=== PATIENT | female | born 1965 | race Caucasian/White ===

== ENCOUNTER → 2020-09-10 11:22 | Outpatient (CLI) | payer BC, SELFPAY ==
[2020-09-10 14:21] LABS: Coronavirus 19 IgG Antibody Positive (Negative); Coronavirus 19 IgM Antibody Negative (Negative)
== END ==
PROVIDERS: Visit Provider Internal Medicine Gastroenterology
DX: Z01.818 Encounter for other preprocedural examination (principal); Z12.11 Encounter for screening for malignant neoplasm of colon; Z86.010 Personal history of colon polyps
CPT/HCPCS: 36415; 86328

== ENCOUNTER 2020-09-11 07:18 | Day surgery (SDC) | payer BC, SELFPAY ==
[2020-09-08 13:19] VITALS: BMI 29.5
[2020-09-11] VITALS (7 sets, daily range): BP systolic 102–121; BP diastolic 59–81; PULSE 68–87; RESP 18; TEMP 36.2; O2SAT 97–100
[2020-09-11 07:52] LABS: POC Glucose,Bedside 152 (70-110)
--- NOTE | 2020-09-11 08:35 | P.PN_ITS ---
[facility] Anesthesia Checklist - Patient Identification Patient Identification: Arm Band, Verbal (Name & ) - Structural Data Admitted From: Home Planned Operative Procedure/s: Colonoscopy Consent for Planned Operative Procedure(s) Verified: Yes Verified Documents: Surgical Consent, History and Physical - NPO Status Verified Time NPO: 00:00 - Chart Verification Results Verified: None - Additional verifications Fingerstick Blood Glucose: 152 Anesthesia Reactions: No - Airway Assessment C-Spine Mobility Assessed: Yes TMJ Mobility Assessed: Yes Dentition: Poor Dentition - Neurological Assessment Level of Consciousness: Awake, Alert, Appropriate, Follows Commands Hx Seizures: No Numbness or tingling in extremities: No - Anesthesia Plan Anesthesia Risk discussed: Yes Anesthesia Plan: Verified ASA Class: III Anesthesia Type: MAC [facility] History I have reviewed the patient's past medical history: Yes Medical History: Reports:: Diabetes Mellitus Type 2, Hyperlipidemia, Hypertension Denies:: Cancer, Diabetes Mellitus Type 1, Internal Pacemaker, MRSA, Seizures *Have you ever received a pneumonia vaccine?: Yes *Have you received a flu vaccine this season?: Yes Comment:: chronic pain Anesthesia experience/problems:: None Laterality Cases: Right: Arthroscopy Knee, Arthroscopy Shoulder, Bilateral: Tonsillectomy Other Surgeries: No: Pacemaker Amputation: No Fractures: No - *Social History Last grade of school completed: Some college Smoking Status: Never smoker Alcohol Intake: never Substance Use Type: denies use *Occupational Status:: employed Housing: house Household Members: none *Travel in the last 8 weeks: None Family Hx:: Cancer
--- NOTE | 2020-09-11 08:53 | P.PCN_ITS ---
[facility] Procedure Note Procedure Note:: Colonoscopy Procedure Report: Colonoscopy Endoscopist: Salvador Boland II, MD Referring physician: Mark Murphy MD Date of Procedure: September 11, 2020 Equipment: Olympus 180 variable stiffness pediatric colonoscope Sedation: MAC sedation Indication: Mrs. Shepherd is a 54-year-old female who is here for follow-up screening/surveillance colonoscopy secondary to a personal history of colon polyps. She did have a colonoscopy in August 2015 and had 2 adenomatous colon polyps removed. The patient does state that she has 2 maternal uncles with colon cancer and her father had colon polyps. She reports no abdominal pain, weight loss, change in her bowel habits or rectal bleeding. Procedure: Prior to the procedure, a history and physical exam was performed, and patient's medications and allergies were reviewed. The risks, benefits and alternatives of the sedation and procedure were discussed with the patient. All questions were answered and informed consent was obtained. The patient was brought to the procedure room. Patient identification and proposed procedure were verified by the physician and the nurse. The patient was placed in a left lateral decubitus position and the scope was passed under direct vision. Throughout the procedure, the patient's blood pressure, pulse, and oxygen saturations were monitored continuously. The colonoscopy was accomplished without difficulty. The patient tolerated the procedure well. Findings: On digital rectal examination there was normal rectal tone. There were no external hemorrhoids. The colonoscope was introduced through the anal canal to the rectum and advanced to the cecum. The ileocecal valve and appendiceal orifice were identified. The scope was advanced a short distance into the ileum which appeared grossly normal. The scope was then withdrawn into the colon. The cecum, ascending and transverse colon and mucosa were grossly normal. There were mildly scattered diverticuli throughout the descending and sigmoid colon (LEFT colon). The rectum itself was normal. Upon retroflexion within the rectum there were grade 1 internal hemorrhoids. The preparation was excellent throughout with Holliday Preparation Score of 9. The cecal time was 10 minutes. Impression: 1. Mild left-sided diverticulosis 2. Grade 1 internal hemorrhoids Plan: Based upon former adenomatous polyps and 2 second-degree relatives with colon cancer, would recommend 7 to 10 years surveillance by ACS guidelines. I would encourage fiber supplementation on a long-term daily maintenance basis.
== END 2020-09-11 09:55 | disposition home or self-care (01) ==
LOC: OUTP 07:20
PROVIDERS: PCP Pediatrics; Visit Provider Internal Medicine Gastroenterology
PROC: 0DJD8ZZ Inspection of Lower Intestinal Tract, Via Natural or Artificial Opening Endoscopic (ICD-10-PCS; CPT 45378; principal; 2020-09-11 08:30)
DX: Z12.11 Encounter for screening for malignant neoplasm of colon (principal); K57.30 Diverticulosis of large intestine without perforation or abscess without bleeding; K64.0 First degree hemorrhoids; Z86.010 Personal history of colon polyps; Z83.71 Family history of colonic polyps; E11.9 Type 2 diabetes mellitus without complications; E78.5 Hyperlipidemia, unspecified; I10 Essential (primary) hypertension; Z82.3 Family history of stroke
CPT/HCPCS: 45378; 82962

== ENCOUNTER → 2022-02-25 08:36 | Outpatient (CLI) | payer BC, SELFPAY ==
[2022-02-25 18:21] LABS: Basophils % 0.3 % (0.1-2.0); Eosinophils % 0.3 % (0.1-12.0); Hemoglobin 13.1 g/dL (12.2-16.2); Lymphocytes # 0.7 K/mm3 (0.7-4.5); Lymphocytes % 10.4 % (10-50); Mean Corpuscular HGB Conc 32.8 g/dL (31.8-35.4); Mean Corpuscular Hemoglobin 31.5 pg (27.0-31.2); Mean Corpuscular Volume 95.9 fl (81-99); Mean Platelet Volume 9.3 fl (7.4-10.4); Monocytes # 0.2 K/mm3 (0.1-1.0); Monocytes % 2.8 % (1.7-9.3); Neutrophils # 5.9 K/mm3 (1.8-7.8); Neutrophils % 86.2 % (37.0-80.0); Platelet Count 217 K/mm3 (142-424); Red Blood Count 4.17 M/mm3 (4.20-5.40); Red Cell Distribution Width 13.8 % (11.5-17.5); White Blood Count 6.8 K/mm3 (4.8-10.8)
[2022-02-25 18:23] LABS: MANUAL DIFFERENTIAL MANUAL DIFFERENTIAL (MANUAL DIFF)
[2022-02-25 18:30] LABS: Alanine Aminotransferase 81 U/L (12-78); Albumin Level 4.7 g/dl (3.5-5.0); Albumin/Globulin Ratio 2.4 (1.1-1.8); Alkaline Phosphatase 76 U/L (38-126); Anion Gap 15.4 mEq/L (5-15); Aspartate Amino Transferase 67 U/L (14-36); Bilirubin,Total 0.4 mg/dl (0.2-1.3); Blood Urea Nitrogen 28 mg/dl (7-17); Calcium 9.9 mg/dl (8.4-10.2); Carbon Dioxide 24 mmol/L (22.0-30.0); Chloride 103 mmol/L (98-107); Chol/HDL Ratio 4.5 (1-3.5); Cholesterol 192 mg/dl (140-200); Estimated Glomerular Filt Rate 51 ml/min (>60); GFR (African American) 62 ML/MIN (>60); Glucose 266 mg/dl (74-100); HDL Cholesterol 43 mg/dl (40-60); Potassium 5.4 mmoL/L (3.5-5.1); Sodium 137 mmol/L (136-145); Total Protein,Serum 6.7 g/dl (6.3-8.2); Triglycerides 288 mg/dl (30-150); VLDL Cholesterol 58 mg/dL (0-40)
[2022-02-25 18:32] LABS: Microalbumin < 6.000 mg/L (0-16.7)
[2022-02-25 18:41] LABS: Direct LDL Cholesterol 89.67 mg/dL (100-129)
[2022-02-25 18:47] LABS: T4 (Thyroxine) 9.6 ug/dl (5.53-11.0)
[2022-02-25 18:57] LABS: Lymphocytes % 7 % (10-50); Neutrophils % 89 % (42-76); Platelet Estimate Normal; RBC Morphology Normal; Total Cells Counted 100; Toxic Granulation 1+
[2022-02-25 19:01] LABS: Thyroid Stimulating Hormone 1.59 uIU/mL (0.465-4.68)
[2022-02-28 12:09] LABS: C-Peptide 7.1 ng/mL (1.1-4.4)
== END ==
PROVIDERS: Visit Provider Nurse Practitioner Family
DX: E11.9 Type 2 diabetes mellitus without complications (principal); Z79.4 Long term (current) use of insulin
CPT/HCPCS: 80053; 80061; 82043; 84436; 84443; 84681; 85007; 85025

== ENCOUNTER → 2022-03-01 15:23 | Outpatient (CLI) | payer BC, SELFPAY ==
[2022-03-01 16:39] LABS: Anion Gap 11.3 mEq/L (5-15); Blood Urea Nitrogen 31 mg/dl (7-17); Calcium 9.9 mg/dl (8.4-10.2); Carbon Dioxide 29 mmol/L (22.0-30.0); Chloride 102 mmol/L (98-107); Estimated Glomerular Filt Rate 86 ml/min (>60); GFR (African American) 104 ML/MIN (>60); Glucose 130 mg/dl (74-100); Potassium 4.3 mmoL/L (3.5-5.1); Sodium 138 mmol/L (136-145)
== END ==
PROVIDERS: PCP Nurse Practitioner Family; Visit Provider Nurse Practitioner Family
DX: E11.9 Type 2 diabetes mellitus without complications (principal); Z79.4 Long term (current) use of insulin
CPT/HCPCS: 36415; 80048

== ENCOUNTER → 2022-03-14 12:17 | Outpatient (CLI) | payer BC, SELFPAY | PROVIDERS: Visit Provider Nurse Practitioner Family | DX: E11.9 Type 2 diabetes mellitus without complications (principal); Z79.4 Long term (current) use of insulin ==

== ENCOUNTER → 2022-04-19 07:06 | Outpatient (CLI) | payer BC, SELFPAY ==
[2022-04-18 17:35] LABS: Amphetamine/Metha Screen,Urine Negative ng/ml (<1000); Barbiturates Screen,Urine Negative ng/ml (<200)
[2022-04-18 17:36] LABS: Benzodiazepines Screen,Urine Negative ng/ml (<200)
[2022-04-18 17:37] LABS: Cannabinoid Screen,Urine Negative ng/ml (<50); Cocaine Screen,Urine Negative ng/ml (<300)
[2022-04-18 17:38] LABS: Methadone Screen,Urine Negative ng/ml (<300)
[2022-04-18 17:39] LABS: Opiate Screen,Urine Negative ng/ml (<300)
[2022-04-18 17:40] LABS: Phencyclidine Screen,Urine Negative ng/ml (<25)
== END ==
PROVIDERS: PCP Nurse Practitioner Family; Visit Provider Nurse Practitioner Family
DX: E11.9 Type 2 diabetes mellitus without complications (principal); Z79.4 Long term (current) use of insulin; Z79.899 Other long term (current) drug therapy
CPT/HCPCS: 80305

== ENCOUNTER → 2022-10-07 07:40 | Outpatient (CLI) | payer BC, SELFPAY ==
--- NOTE | 2022-10-07 07:42 | US_ITS ---
FINAL REPORT CLINICAL HISTORY: ELEVATED LIVER ENZYMES FINDINGS: Sonographic images of the right upper quadrant were obtained. The pancreas is partially obscured. There is increased echogenicity in the liver consistent with fatty infiltration. There is a 1.5 cm hepatic cyst. There is a gallstone in the gallbladder. There is no evidence of biliary ductal dilatation.The common duct measures 4mm. Limited images of the right kidney are unremarkable. IMPRESSION: Fatty liver with 1.5 cm hepatic cyst. Cholelithiasis. Reviewed, Interpreted and Dictated by oJrje Castillo III, MD Transcribed by Demetra Pereira Authenticated and [facility]
== END ==
PROVIDERS: PCP Nurse Practitioner Family; Visit Provider Nurse Practitioner Family
DX: R74.8 Abnormal levels of other serum enzymes (principal)
CPT/HCPCS: 76705

== ENCOUNTER → 2022-12-13 10:07 | Outpatient (CLI) | payer BC, SELFPAY ==
--- NOTE | 2022-12-13 | CA_ITS ---
FINAL REPORT TECHNIQUE: Color Doppler, duplex Doppler and compression sonography of the right lower extremity venous system was performed. CLINICAL HISTORY: leg tightness with swelling, History of right knee injury FINDINGS: There is no evidence of deep venous thrombosis from the level of the groin to the calf. The veins are patent and compressible. IMPRESSION: No evidence of deep venous thrombosis right lower extremity. Reviewed, Interpreted and Dictated by Jorje Castillo III, MD Transcribed by Ina Bridges Authenticated and [facility]
== END ==
PROVIDERS: PCP Nurse Practitioner Family; Visit Provider Nurse Practitioner Family
DX: R60.0 Localized edema (principal)
CPT/HCPCS: 93971

== ENCOUNTER → 2023-03-13 14:27 | Outpatient (CLI) | payer BC, SELFPAY | PROVIDERS: PCP Nurse Practitioner Family; Visit Provider Physician Assistant | DX: R00.2 Palpitations (principal); E11.9 Type 2 diabetes mellitus without complications; E78.5 Hyperlipidemia, unspecified; G47.33 Obstructive sleep apnea (adult) (pediatric); Z82.49 Family history of ischemic heart disease and other diseases of the circulatory system; Z87.891 Personal history of nicotine dependence; Z79.84 Long term (current) use of oral hypoglycemic drugs | CPT/HCPCS: 93270 ==

== ENCOUNTER → 2023-04-11 11:01 | Outpatient (CLI) | payer BC, SELFPAY ==
--- NOTE | 2023-04-11 | CA_ITS ---
APPROVED REPORT Exam: Pharmacologic Technologist: Beatriz Lora, Ht: 5 ft 9 in Wt: 179 lbs BSA: 1.97 m2 HR: 67 bpm BP: 152/77 mmHg Rhythm: NSR, NORMAL Indications: Palpitations, SOA Medical History Medical History: Hyperlipidemia, Diabetes Medications: Lovastatin,,,,, Metformin,,,,, Gabapentin,,,,, Losartan,,,,, Cyclobenzaprine,,,,, JaRDiance,,,,, ValACYCLOVIR,,,,, Ozempic,,,,, Allergies: LISINOPRIL Cardiac Risk Factors: Hyperlipidemia, Diabetes , FHX of CAD, Smoking Stress Test Details Test: LEXISCAN HR Resting HR: 72 bpm Max Heart Rate (APMHR): 162 bpm Max HR Achieved: 100 bpm Target HR (85% APMHR): 138 bpm % of APMHR: 62 Recovery HR: 82 bpm BP Resting BP: 152/77 mmHg Max BP: 159/79 mmHg Recovery BP: 155.0/77.0 mmHg ECG Resting ECG: NSR, NORMAL Clinical Exercise duration: 04:04 min Highest Stage Achieved: Stress ECG Conclusion PT HAD HEAD DISCOMFORT, MILD CHEST PRESSURE NO SIGNIFICANT ECG CHANGES UNREMARKABLE LEXISCAN STRESS MYOVIEW IMAGES REPORTED SEPARATELY Test Summary REST 03:04 . . 72 . 152/ 77 . . Stage 1 . . . . . . . Myoview Injected Stage 1 01:00 . . 90 . . . . Stage 2 01:00 . . 95 . . . . Stage 3 01:00 . . 90 . 159/ 79 . . Stage 4 01:00 . . 89 . 144/ 79 . . Stage 4 01:04 . . 89 . 144/ 79 . Stop exercise at 04:04 RECOVERY 01:00 . . 90 . 150/ 78 . . RECOVERY 02:00 . . 85 . 150/ 78 . . RECOVERY 03:00 . . 81 . 155/ 77 . . RECOVERY 03:23 . . 82 . 155/ 77 . . Electronically signed by : Sherrie Pedroza, 04/12/2023 22:34:38
--- NOTE | 2023-04-11 11:01 | NM_ITS ---
APPROVED REPORT Exam: Nuclear Stress Test Indication: DM, FM HX, C.P., SOB Patient Location: Outpatient Stress Tech: Beatriz Lora [place] Tech:Catrachita LivingstonAYAN gonsalez RT (R)(N)(M) Ht: 5 ft 9 in Wt: 174 lbs Bra Size: B HR: 67 bpm BP: 152/77 mmHg BSA: 1.95 m2 TID: 1.23 BMI: 25.6 History: DM, FM HX, C.P., SOB Procedure: Patient received 0.4 mg of intravenous Lexiscan, resting heart rate 67 bpm, resting blood pressure 152/77 mmHg, with Lexiscan maximum heart rate achieved was 95 bpm which is % of the maximum predicted heart rate and blood pressure was 159/79 mmHg. C/O MILD CHEST PRESSURE WITH LEXISCAN Cardiac Stress and Resting SPECT Images: Cardiac Stress and Resting SPECT images were obtained using technetium 99m Myoview 31.3 mCi stress and 10.24 mCi at rest. Resting and stress imaging in both supine and prone positions demonstrate a small-sized, mild, reversible perfusion defect in the mid to distal anteroseptal LV wall. There is mild increase in the transient ischemic dilatation ratio (TID=1.23). Findings are suggestive of possible balanced ischemia or multivessel disease. Gated imaging demonstrate normal global LV systolic function. There is mild hypokinesis in the mid to distal anteroseptal LV wall. LVEF is calculated at 54%. Conclusion: Small-sized, mild, reversible perfusion defect in the mid to distal anteroseptal LV wall. Findings are consistent with reversible ischemia. Mild increase in the transient ischemic dilatation ratio (TID=1.23). Findings are suggestive of possible balanced ischemia or multivessel disease. Gated imaging demonstrate normal global LV systolic function and mild hypokinesis in the mid to distal anteroseptal LV wall. LVEF is calculated at 54%. Electronically signed by : Sherrie Pedroza, 04/12/2023 22:39:56
== END ==
PROVIDERS: PCP Nurse Practitioner Family; Visit Provider Physician Assistant
DX: R00.2 Palpitations (principal); E11.9 Type 2 diabetes mellitus without complications; E78.5 Hyperlipidemia, unspecified; G47.33 Obstructive sleep apnea (adult) (pediatric); Z82.49 Family history of ischemic heart disease and other diseases of the circulatory system; Z87.891 Personal history of nicotine dependence; Z79.84 Long term (current) use of oral hypoglycemic drugs
CPT/HCPCS: 78452; 93017; 93306; A9502; J2785

== ENCOUNTER 2023-04-19 08:23 | Day surgery (SDC) | payer BC, SELFPAY ==
[2023-04-19] VITALS (12 sets, daily range): BP systolic 96–154; BP diastolic 63–110; PULSE 68–85; RESP 16–20; O2SAT 95–100; BMI 26.9
--- NOTE | 2023-04-19 07:04 | IR_ITS ---
APPROVED REPORT Patient Location: Outpatient PROCEDURES Left heart catheterization Selective coronary angiogram Left ventriculogram Drug-eluting stent deployment to the proximal and mid LAD Drug-eluting stent deployment to the ostial proximal and mid dominant right coronary contiguous manner INDICATION Coronary artery disease, Angina pectoris, Abnormal Myoview Informed consent was obtained prior to the procedure. COMPLICATIONS None Estimated Blood Loss: Less than 10 mls TECHNIQUE One percent lidocaine used to anesthetize the right anterior aspect of the wrist. The right radial artery was accessed via the Seldinger technique. A 6 [place] sheath was placed in the right radial artery. 150 mg magnesium sulfate, 800 mcg of nitroglycerin, 1mg Lidocaine and 5000 U Heparin were given through the arterial sheath. The papa catheter was also used to perform left heart catheterization, left ventriculogram and selective coronary angiogram. At the end the diagnostic angiogram therapeutic heparin was administered giving a therapeutic ACT and the guide catheter was placed in left main artery followed by Choice PT extra-support wire being placed on the LAD. A 3.5 x 30 mm [place] frontier stent was deployed at 14 nirmala reducing the hemodynamically severe stenosis to 0%. URSULA-3 flow was present before and after the procedure. Following this the guide catheter was placed back in the right coronary artery where Choice PT extra-support wire was placed distally. A 3.5 x 38 mm [place] frontier stent was deployed in the midportion at 20 nirmala reducing the stenosis. An additional 3.5 x 22 mm [place] frontier stent was placed proximal to this at 22 nirmala. There was a step up in the ostium which appeared as though this could create difficulties in the future or possibly even in its dissection therefore a 3.5 x 12 mm [place] frontier stent was placed in the ostial portion overlapping the 22 mm stent deployed at 24 nirmala. Excellent angiographic results were obtained with URSULA-3 flow being present down the vessel before and after the procedure. At the end of procedure the apparatus was removed the sheath was removed good hemostasis was achieved using TR banding patient was transferred to the postop putting in stable condition ANGIOGRAPHIC RESULTS The left main artery Normal The left anterior descending artery Has 40 to 50% stenoses immediately distal to the large first diagonal artery but proximal to the first septal freelance operator. There is an additional hazy 50 to 60% stenosis after the largest of the septal perforators. The remaining LAD is widely patent and normal The circumflex artery Nondominant normal The right coronary artery Is a large dominant vessel and has a proximal 30% stenosis with a mid vessel concentric 70% stenosis followed by distal 30% stenosis The MACIAS ventriculogram reveals Normal 65% The left ventricular end-diastolic pressure 15 mmHg IMPRESSION Hemodynamically severe disease in the proximal to mid LAD as evidenced by the high risk abnormal Myoview Successful stenting the proximal and mid LAD severe disease reduced to 0% with 1 drug-eluting stent Severe disease in the mid dominant right coronary which required stenting of the ostial proximal and mid vessel reducing all disease to 0% with 3 contiguous drug-eluting stents Normal ejection fraction Normal left ventricular end-diastolic pressure PLAN 1. Dual antiplatelet therapy 2. LDL less than 55 to be achieved with high intensity statin 3. Avoidance of tobacco products 4. Take rehabilitation 5. Risk factor modification Electronically signed by : Yg Pinedo MD 04/20/2023 10:13:52
[2023-04-19 09:00] LABS: Basophils % 0.4 % (0.1-2.0); Eosinophils # 0.1 K/mm3 (0.0-0.4); Eosinophils % 1.9 % (0.1-12.0); Hematocrit 46.8 % (37.0-47.0); Hemoglobin 15.5 g/dL (12.2-16.2); Lymphocytes # 1.7 K/mm3 (0.7-4.5); Lymphocytes % 27.8 % (10-50); Mean Corpuscular HGB Conc 33.2 g/dL (31.8-35.4); Mean Corpuscular Hemoglobin 31.1 pg (27.0-31.2); Mean Corpuscular Volume 93.9 fl (81-99); Mean Platelet Volume 8.3 fl (7.4-10.4); Monocytes # 0.3 K/mm3 (0.1-1.0); Monocytes % 5.6 % (1.7-9.3); Neutrophils # 3.8 K/mm3 (1.8-7.8); Neutrophils % 64.3 % (37.0-80.0); Platelet Count 184 K/mm3 (142-424); Red Blood Count 4.99 M/mm3 (4.20-5.40); Red Cell Distribution Width 13.2 % (11.5-17.5)
[2023-04-19 09:05] LABS: Chloride 100 mmol/L (98-107); Potassium 4.2 mmoL/L (3.5-5.1); Sodium 142 mmol/L (136-145)
[2023-04-19 09:08] LABS: Anion Gap 16.2 mEq/L (5-15); Blood Urea Nitrogen 24 mg/dl (7-17); Calcium 10.2 mg/dl (8.4-10.2); Carbon Dioxide 30 mmol/L (22.0-30.0); Creatinine Clearance Estimated 100 mL/min (50-200); Estimated Glomerular Filt Rate 74 ml/min (>60); GFR (African American) 89 ML/MIN (>60); Glucose 140 mg/dl (74-100)
[2023-04-19 12:47] LABS: CATHL Activated Clotting Time > 400 SEC (74-125)
--- NOTE | 2023-04-19 14:15 | P.CONPHA_ITS ---
[facility] Business Leader Discharge Med Executive Marketing Assistant: Zehra Shepherd has received discharge medication counseling on the following medications: -ASPIRIN (BLOOD THINNER, DAILY, BLEED/BRUISE RISK, BLEED LOCATION AND APPEARANCE, BUMP HEAD = GO TO ER) -BISOPROLOL (FOR BLOOD PRESSURE/HEART RATE, DAILY, DIZZINESS,LIGHTHEADEDNESS, LOW BP, SLOWED HEART RATE, FATIGUE POSSIBLE) -LOSARTAN (ALREADY TAKING, NO QUESTIONS) -LOVASTATIN (ALREADY TAKING, NO QUESTIONS) -BRILINTA (BLOOD THINNER, TWICE DAILY, BLEED/BRUISE RISK, BLEED LOCATION AND APPEARANCE, BUMP HEAD = GO TO ER, SOB POSSIBLE) PATIENT VERBALIZED NO QUESTIONS AT THIS TIME.
== END 2023-04-19 15:22 | disposition home or self-care (01) ==
PROVIDERS: PCP Nurse Practitioner Family; Visit Provider Internal Medicine
DX: I25.118 Atherosclerotic heart disease of native coronary artery with other forms of angina pectoris (principal); Z79.899 Other long term (current) drug therapy; Z79.84 Long term (current) use of oral hypoglycemic drugs; Z87.891 Personal history of nicotine dependence; E11.9 Type 2 diabetes mellitus without complications; Z82.49 Family history of ischemic heart disease and other diseases of the circulatory system; E78.5 Hyperlipidemia, unspecified
CPT/HCPCS: 80048; 85025; 85347; 92928; 93458; 99152; 99153; C1725; C1769; C1874; C1876; C9600; J1644; Q9967

== ENCOUNTER → 2023-08-07 12:00 | Outpatient (CLI) | payer BC, SELFPAY ==
[2023-08-07 12:37] LABS: Basophils % 0.4 % (0.1-2.0); Eosinophils # 0.1 K/mm3 (0.0-0.4); Eosinophils % 1.4 % (0.1-12.0); Hematocrit 42.9 % (37.0-47.0); Lymphocytes # 1.7 K/mm3 (0.7-4.5); Lymphocytes % 27.5 % (10-50); Mean Corpuscular HGB Conc 32.5 g/dL (31.8-35.4); Mean Corpuscular Hemoglobin 31.5 pg (27.0-31.2); Mean Corpuscular Volume 96.8 fl (81-99); Mean Platelet Volume 8.4 fl (7.4-10.4); Monocytes # 0.4 K/mm3 (0.1-1.0); Monocytes % 5.9 % (1.7-9.3); Platelet Count 199 K/mm3 (142-424); Red Blood Count 4.43 M/mm3 (4.20-5.40); White Blood Count 6.2 K/mm3 (4.8-10.8)
[2023-08-07 13:14] LABS: Anion Gap 12.2 mEq/L (5-15); Blood Urea Nitrogen 33 mg/dl (7-17); Calcium 9.7 mg/dl (8.4-10.2); Carbon Dioxide 29 mmol/L (22.0-30.0); Chloride 102 mmol/L (98-107); Chol/HDL Ratio 2.9 (1-3.5); Cholesterol 114 mg/dl (140-200); Estimated Glomerular Filt Rate 64 ml/min (>60); GFR (African American) 78 ML/MIN (>60); Glucose 157 mg/dl (74-100); HDL Cholesterol 39 mg/dl (40-60); Magnesium 2.2 mg/dl (1.6-2.3); Potassium 4.2 mmoL/L (3.5-5.1); Sodium 139 mmol/L (136-145); Triglycerides 228 mg/dl (30-150); VLDL Cholesterol 46 mg/dL (0-40)
[2023-08-07 13:30] LABS: Free T4 (Free Thyroxine) 0.95 ng/dl (0.78-2.19)
== END ==
PROVIDERS: PCP Nurse Practitioner Family; Visit Provider Nurse Practitioner
DX: E11.9 Type 2 diabetes mellitus without complications (principal); E78.5 Hyperlipidemia, unspecified; I25.10 Atherosclerotic heart disease of native coronary artery without angina pectoris; R06.00 Dyspnea, unspecified; R94.39 Abnormal result of other cardiovascular function study; Z79.84 Long term (current) use of oral hypoglycemic drugs; Z87.891 Personal history of nicotine dependence
CPT/HCPCS: 36415; 80048; 80061; 83735; 84439; 85025

== ENCOUNTER → 2023-09-13 15:04 | Outpatient (CLI) | payer BC, SELFPAY ==
--- NOTE | 2023-09-13 15:08 | XR_ITS ---
FINAL REPORT CLINICAL HISTORY: Right 3rd toe callus & blisters. FINDINGS: Right foot Three views were obtained. There is no acute fracture or dislocation. There is fusion of the 2nd PIP. Mild degenerative changes are present. There is no bony erosion. There is soft tissue swelling of the 3rd digit. IMPRESSION: Soft tissue swelling of the 3rd digit without evidence of bony erosion. Reviewed, Interpreted and Dictated by oJrje Castillo III, MD Transcribed by Ina Bridges Authenticated and [facility]
== END ==
PROVIDERS: PCP Nurse Practitioner Family; Visit Provider Nurse Practitioner Family
DX: M79.671 Pain in right foot (principal)
CPT/HCPCS: 73630

== ENCOUNTER 2023-10-01 14:34 | Emergency (ER) | payer BC, SELFPAY ==
[2023-10-01 14:36] VITALS: BP 119/76; PULSE 82; RESP 20; TEMP 37.1; O2SAT 97; BMI 26.6
--- NOTE | 2023-10-01 15:11 | PC.NURSE ---
Dr. Stephenson at BS for pt eval
--- NOTE | 2023-10-01 15:21 | XR_ITS ---
PROCEDURE INFORMATION: Exam: XR Right Foot Exam date and time: 10/01/2023 3:56 PM Age: 57 years old Clinical indication: Swelling or effusion of joint; Foot; Additional info: R third toe infection TECHNIQUE: Imaging protocol: Radiologic exam of the right foot. Views: 3 or more views. COMPARISON: CR XR FOOT WT BEARING RT 3V 09/13/2023 3:09 PM FINDINGS: Bones/joints: Status post arthrodesis of the 2nd PIP joint with an intact screw in place. No fracture or dislocation. No cortical erosion or periosteal reaction. Unchanged well-defined ovoid lucency in the head of the 2nd metatarsal which could be the sequela of a prior injury or prior surgery. Soft tissues: Soft tissue swelling of the 3rd toe. IMPRESSION: Soft tissue swelling of the 3rd toe. No acute osseous abnormality.
--- NOTE | 2023-10-01 15:21 | HMH.EDGENADL ---
Discharge Plan Disposition Patient Disposition: Home, Self-Care Prescriptions Prescriptions: New levofloxacin 750 mg tablet 750 mg PO DAILY 7 Days Qty: 7 0RF No Action metformin 500 mg tablet 500 mg PO DAILY diclofenac sodium 75 mg tablet,delayed release (DR/EC) 75 mg PO BID aspirin 81 mg tablet,chewable 81 mg PO DAILY Qty: 30 6RF clopidogrel [Plavix] 75 mg tablet 75 mg PO DAILY Qty: 30 11RF bisoprolol fumarate 5 mg tablet 2.5 mg PO DAILY Qty: 15 3RF Jardiance 10 mg tablet 10 mg PO DAILY Qty: 30 2RF losartan 25 mg tablet 25 mg PO DAILY Qty: 90 3RF rosuvastatin 10 mg tablet See Rx Instructions .ROUTE .COMPLEX Qty: 90 1RF Dose Instruction: Take 1 tablet by mouth once daily Rx Instructions: Take 1 tablet by mouth once daily gabapentin 300 mg capsule 300 mg PO TID Qty: 90 1RF Ozempic 0.25 mg or 0.5 mg(2 mg/1.5 mL) pen injector 0.25 mg SQ WEEKLY Qty: 1.5 2RF Rx Instructions: for 4 doses once a week, then increase to 0.5mg sq week mupirocin 2 % ointment 1 applic topical BID 14 Days Qty: 15 0RF valacyclovir 500 MG tablet 500 mg PO DAILY Referrals Follow up/Referrals: Amalia Walter APRN [Primary Care Provider] - See instructions Activity Restrictions/Add. Instructions Additional Instructions/Restrictions: At this time it was felt you are safe to be discharged home. If new or worsening symptoms please do not hesitate to return the emergency department. Please take antibiotics as prescribed and follow-up with your foot doctor as discussed. Clinical Impressions Clinical Impression: Infection of toe Discharge ED Provider: Jose Stephenson General Adult HPI General Chief complaint: Extremity Injury, Lower Stated complaint: right middle toe red and swollen blistered Time Seen by Provider: 10/01/23 14:59 Mode of Arrival: Ambulatory Source of Information: Patient Limitations: No Limitations Description of Symptoms (Recalled from ER Triage Doc. by RN): pt had callous removed 1.5 week ago per podiatry and pcp on right 3rd toe, pt went back to work wearing steel toe boots and was just wrapping it up with ointment. today patient noticed toe looks worse and wanted it checked since she is a diabetic. pt toe is red and swollen and discolored History of Present Illness HPI narrative: Patient is a 57-year-old female who presents emergency department for evaluation of toe swelling. Patient has past medical history of cwh-[id number] diabetes. Patient has had swelling of her right third toe over the last month with associated mild erythema, approximately 1.5 weeks ago patient had callus removed from her toe with resultant blistering secondary to friction from her dressing while wearing her steel toe boots. Since then patient has had worsening erythema and fusiform swelling of her right third toe that is refractory to soaking causing her to present here for continued evaluation. It does not track up her leg, no other acute complaints at this time. Related Data Home Medications Medication Instructions Recorded Confirmed valacyclovir 500 mg tablet 500 mg PO DAILY cold sores 09/08/20 09/20/23 metformin 500 mg tablet 500 mg PO DAILY Diabetes 04/04/22 09/20/23 diclofenac sodium 75 mg 75 mg PO BID 04/13/23 09/20/23 tablet,delayed release Previous Rx's Medication Instructions Recorded gabapentin 300 mg capsule 300 mg PO TID Pain #90 caps 04/18/22 semaglutide 0.25 mg or 0.5 mg (2 0.25 mg (0.187 mL) SQ WEEKLY #1.5 06/07/22 mg/1.5 mL) subcutaneous pen mL injector (Ozempic) aspirin 81 mg chewable tablet 81 mg PO DAILY #30 tabs 08/07/23 bisoprolol fumarate 5 mg tablet 2.5 mg PO DAILY #15 tabs 08/07/23 clopidogrel 75 mg tablet (Plavix) 75 mg PO DAILY #30 tabs 08/07/23 empagliflozin 10 mg tablet 10 mg PO DAILY #30 tabs 08/07/23 (Jardiance) losartan 25 mg tablet 25 mg PO DAILY High blood pressure 08/07/23 #90 tabs rosuvastatin
--- NOTE | 2023-10-01 15:22 | PC.NURSE ---
LAB at to obtain blood cx
--- NOTE | 2023-10-01 15:54 | PC.NURSE ---
Rounded on pt. No needs or complaints voiced at this time. Call light within reach.
--- NOTE | 2023-10-01 16:00 | PC.NURSE ---
verified with Dr. Stephenson it is ok to begin [place] wo both blood cultures.
[2023-10-01 17:50] VITALS: BP 126/88; PULSE 84; RESP 18; TEMP 36.6
== END 2023-10-01 17:51 | disposition home or self-care (01) ==
PROVIDERS: Emergency Provider Emergency Medicine; PCP Nurse Practitioner Family
DX: L03.031 Cellulitis of right toe (principal); E11.9 Type 2 diabetes mellitus without complications; I10 Essential (primary) hypertension; E78.5 Hyperlipidemia, unspecified; Z79.85 Long-term (current) use of injectable non-insulin antidiabetic drugs
CPT/HCPCS: 73630; 96365; 99284; J0875

== ENCOUNTER → 2023-10-02 11:40 | Outpatient (CLI) | payer BC, SELFPAY ==
[2023-10-02 12:07] LABS: Basophils % 0.5 % (0.1-2.0); Eosinophils # 0.1 K/mm3 (0.0-0.4); Eosinophils % 1.7 % (0.1-12.0); Hematocrit 43.3 % (37.0-47.0); Hemoglobin 14.2 g/dL (12.2-16.2); Lymphocytes # 1.5 K/mm3 (0.7-4.5); Lymphocytes % 25.2 % (10-50); Mean Corpuscular HGB Conc 32.7 g/dL (31.8-35.4); Mean Corpuscular Hemoglobin 30.8 pg (27.0-31.2); Mean Corpuscular Volume 94.3 fl (81-99); Mean Platelet Volume 8.3 fl (7.4-10.4); Monocytes # 0.3 K/mm3 (0.1-1.0); Neutrophils # 4.1 K/mm3 (1.8-7.8); Neutrophils % 67.6 % (37.0-80.0); Platelet Count 206 K/mm3 (142-424); Red Blood Count 4.59 M/mm3 (4.20-5.40); Red Cell Distribution Width 12.9 % (11.5-17.5); White Blood Count 6.1 K/mm3 (4.8-10.8)
[2023-10-02 12:40] LABS: Erythrocyte Sedimentation Rate 38 mm/hr (0-30)
[2023-10-02 12:47] LABS: Alanine Aminotransferase 47 U/L (12-78); Albumin Level 4.9 g/dl (3.5-5.0); Alkaline Phosphatase 86 U/L (38-126); Anion Gap 16.2 mEq/L (5-15); Aspartate Amino Transferase 41 U/L (14-36); Bilirubin,Total 0.3 mg/dl (0.2-1.3); Blood Urea Nitrogen 25 mg/dl (7-17); Calcium 10.1 mg/dl (8.4-10.2); Carbon Dioxide 26 mmol/L (22.0-30.0); Chloride 101 mmol/L (98-107); Estimated Glomerular Filt Rate 64 ml/min (>60); GFR (African American) 78 ML/MIN (>60); Globulin 2.4 g/dL (1.3-3.2); Glucose 110 mg/dl (74-100); Potassium 4.2 mmoL/L (3.5-5.1); Sodium 139 mmol/L (136-145); Total Protein,Serum 7.3 g/dl (6.3-8.2)
[2023-10-02 12:53] LABS: C-Reactive Protein 7.4 mg/L (0-4)
[2023-10-02 15:01] LABS: Hemoglobin A1C 6.5 % (4.0-6.0)
== END ==
PROVIDERS: PCP Nurse Practitioner Family; Visit Provider Podiatrist
DX: E11.621 Type 2 diabetes mellitus with foot ulcer (principal); L03.031 Cellulitis of right toe; L97.519 Non-pressure chronic ulcer of other part of right foot with unspecified severity; Z79.84 Long term (current) use of oral hypoglycemic drugs; Z79.85 Long-term (current) use of injectable non-insulin antidiabetic drugs
CPT/HCPCS: 36415; 80053; 83036; 85025; 85651; 86140

== ENCOUNTER → 2023-10-03 14:52 | Outpatient (CLI) | payer BC, SELFPAY | PROVIDERS: PCP Podiatrist; Visit Provider Podiatrist | DX: E11.621 Type 2 diabetes mellitus with foot ulcer (principal); L03.031 Cellulitis of right toe; L08.9 Local infection of the skin and subcutaneous tissue, unspecified; L97.519 Non-pressure chronic ulcer of other part of right foot with unspecified severity | CPT/HCPCS: 87070; 87205 ==

== ENCOUNTER → 2023-10-26 14:17 | Outpatient (CLI) | payer BC, SELFPAY ==
[2023-10-26 15:05] LABS: Basophils % 0.5 % (0.1-2.0); Eosinophils # 0.1 K/mm3 (0.0-0.4); Eosinophils % 1.6 % (0.1-12.0); Hemoglobin 13.6 g/dL (12.2-16.2); Lymphocytes % 35.2 % (10-50); Mean Corpuscular Volume 94.2 fl (81-99); Mean Platelet Volume 8.8 fl (7.4-10.4); Monocytes # 0.3 K/mm3 (0.1-1.0); Monocytes % 5.9 % (1.7-9.3); Neutrophils # 3.3 K/mm3 (1.8-7.8); Neutrophils % 56.9 % (37.0-80.0); Platelet Count 167 K/mm3 (142-424); Red Blood Count 4.25 M/mm3 (4.20-5.40); Red Cell Distribution Width 13.7 % (11.5-17.5); White Blood Count 5.8 K/mm3 (4.8-10.8)
[2023-10-26 15:22] LABS: Chloride 102 mmol/L (98-107); Potassium 4.5 mmoL/L (3.5-5.1); Sodium 137 mmol/L (136-145)
[2023-10-26 15:25] LABS: Alanine Aminotransferase 58 U/L (12-78); Albumin Level 4.8 g/dl (3.5-5.0); Albumin/Globulin Ratio 2.7 (1.1-1.8); Alkaline Phosphatase 69 U/L (38-126); Anion Gap 12.5 mEq/L (5-15); Aspartate Amino Transferase 44 U/L (14-36); Bilirubin,Total 0.4 mg/dl (0.2-1.3); Blood Urea Nitrogen 26 mg/dl (7-17); Calcium 9.4 mg/dl (8.4-10.2); Carbon Dioxide 27 mmol/L (22.0-30.0); Estimated Glomerular Filt Rate 57 ml/min (>60); GFR (African American) 69 ML/MIN (>60); Globulin 1.8 g/dL (1.3-3.2); Glucose 99 mg/dl (74-100); Total Protein,Serum 6.6 g/dl (6.3-8.2)
[2023-10-26 15:30] LABS: C-Reactive Protein 0.4 mg/L (0-4)
[2023-10-26 15:33] LABS: Erythrocyte Sedimentation Rate 20 mm/hr (0-30)
== END ==
PROVIDERS: PCP Nurse Practitioner Family; Visit Provider Podiatrist
DX: E11.621 Type 2 diabetes mellitus with foot ulcer (principal); L03.031 Cellulitis of right toe; L97.519 Non-pressure chronic ulcer of other part of right foot with unspecified severity; Z79.84 Long term (current) use of oral hypoglycemic drugs; Z79.85 Long-term (current) use of injectable non-insulin antidiabetic drugs
CPT/HCPCS: 36415; 80053; 85025; 85651; 86140

== ENCOUNTER 2023-11-16 13:48 | Outpatient (CLI) | payer BC, SELFPAY ==
--- NOTE | 2023-11-16 13:53 | XR_ITS ---
FINAL REPORT CLINICAL HISTORY: Foot Pain COMPARISON: 10/01/2023 FINDINGS: RIGHT FOOT: Three views of the right foot were obtained. The second proximal inner phalangeal joint of the right foot has been fused, as was also noted on the prior exam of September 2023. There is a chronic appearing erosion of the second metatarsal head as well as mild subluxation of the proximal phalanx of the second toe dorsally. There is no acute fracture or dislocation. There is no soft tissue abnormality. IMPRESSION: Prior fusion of the second PIP joint unchanged since September. Chronic erosion of the second metatarsal head, also stable. There is mild subluxation of the proximal phalanx of the second toe in the dorsal direction. Reviewed, Interpreted and Dictated by Jorje Castillo III, MD Transcribed by Maya Jacobs Authenticated and [facility]
== END 2023-11-16 23:59 ==
LOC: RAD 13:49
PROVIDERS: PCP Nurse Practitioner Family; Visit Provider Podiatrist
DX: M79.671 Pain in right foot (principal)
CPT/HCPCS: 73630

== ENCOUNTER 2024-03-28 14:49 | Outpatient (CLI) | payer BC, SELFPAY ==
--- NOTE | 2024-03-28 14:58 | US_ITS ---
FINAL REPORT CLINICAL HISTORY: POS CYST ON BACK FINDINGS: Limited sonographic images of the area of interest in the right back were obtained. An ovoid slightly hypoechoic mass is seen which measures 4.1 x 2.7 x 1.4 cm this has a nonspecific appearance but may represent a lipoma. This does not appear to represent a simple cyst. IMPRESSION: 4.1 cm right back ovoid mass which may represent a lipoma. If indicated, MRI may be helpful. Authenticated and [facility]
== END 2024-03-28 23:59 | disposition home or self-care (01) ==
LOC: RAD 14:49
PROVIDERS: PCP Nurse Practitioner Family; Visit Provider Nurse Practitioner Family
DX: L72.9 Follicular cyst of the skin and subcutaneous tissue, unspecified (principal)
CPT/HCPCS: 76604

== ENCOUNTER 2024-05-27 06:03 | Day surgery (SDC) | payer BC, SELFPAY ==
[2024-05-24 07:44] VITALS: BMI 26.6
[2024-05-27] VITALS (10 sets, daily range): BP systolic 111–133; BP diastolic 62–80; PULSE 71–97; RESP 16–18; TEMP 35.9–36.4; O2SAT 95–98
[2024-05-27] MEDS: LACTATED RINGERS 1000ML 1,000 ML 25 ML IV (06:29)
[2024-05-27 06:42] LABS: POC Glucose,Bedside 170 (70-110)
--- NOTE | 2024-05-27 07:04 | P.PNANES_ITS ---
[facility] Disclaimer: The information contained in this section may have been updated after the patient was seen, as this information can be updated by other users. Medical History Encounter for pre-operative cardiovascular clearance Palpitations Ex-smoker Coronary artery disease Hyperlipidemia CONNOR (obstructive sleep apnea) FH: CAD (coronary artery disease) Diabetes Surgical History History of knee replacement S/P coronary artery stent placement Family History Father Heart attack Brother Heart attack Social History Smoking Status: Never smoker alcohol intake: never substance use type: denies use current occupational status: employed Travel in the last 8 weeks: Inside the [place] household members: none housing: house current occupation: [employer] caffeine: Yes [facility] Anesthesia Checklist Patient Identification Patient Identification: Arm Band, Family and Verbal (Name & ) Structural Data Admitted From: Home Planned Operative Procedure/s: Excision of lipoma Consent for Planned Operative Procedure(s) Verified: Yes Verified Documents: Surgical Consent and History and Physical NPO Status Verified Time NPO: 22:00 Chart Verification Results Verified: CBC, BMP and ECG Additional verifications Fingerstick Blood Glucose: 170 Patient : No Anesthesia Reactions: No Hx Blood Transfusions: No Blood Transfusion Reaction: No Cardiovascular Assessment Heart Sounds: S1 & S2 Pulse Rhythm: Irregular Peripheral Edema: No Airway Assessment Mallampati Score:: Class II C-Spine Mobility Assessed: Yes (FROM) TMJ Mobility Assessed: Yes Dentition: Dentures-good fit (Removed) Neurological Assessment Level of Consciousness: Awake, Alert, Appropriate and Follows Commands Hx Seizures: No Numbness or tingling in extremities: No Anesthesia Plan Anesthesia Risk discussed: Yes Anesthesia Plan: Verified ASA Class: III Anesthesia Type: General
[2024-05-27] MEDS: CEFAZOLIN SODIUM 2 GM in 0.9 % SODIUM CHLORIDE 100 ML IV (07:19)
[2024-05-27] MEDS: LIDOCAINE 1% 10ML MDV 10 ML (07:35)
[2024-05-27] MEDS: ROPIVACAINE 0.5% 30ML VIAL 150 MG (07:35)
--- NOTE | 2024-05-27 08:05 | P.OP_ITS ---
Date of procedure: 05/27/24 Pre-op Diagnosis:: Probable lipoma left upper back Post-op Diagnosis:: Same Procedure performed:: Excision of deep lipoma from left upper back (excisional length 5.0 cm) with intermediate complexity closure Surgeon:: Jorje Delgado MD PLASMA PROCESSING TECHNICIAN:: Caridad Alaniz Anesthesia: local and LMA Estimated blood loss (mL): 7 Operative findings:: Consistent with deep subcutaneous lipoma Operative note:: Consent was obtained patient was taken the operating room. She was positioned in a supine position. General anesthesia was induced via LMA. She was positioned and the right lateral position. The area was prepped and draped in the standard surgical fashion. Lesion was palpable in the deep subcutaneous tissues of the left upper back. General boundaries of the lesion were marked. It was somewhat of an elongated palpable lesion. Skin incision was made approximately 5 cm in length. Dissection was carried down through dermis and superficial subcutaneous tissues using electrocautery. Subcutaneous fascia was incised. Relatively well-circumscribed lipomatous lesion was encountered. With mostly blunt dissection and some use of electrocautery it was dissected free. It was sent off as a specimen. Hemostasis was achieved with electrocautery. Wound was irrigated. Local anesthetic was infiltrated. Subcutaneous fascia was closed with several interrupted 3-0 Vicryl sutures. Deep dermal tissues were closed with interrupted 3-0 Vicryl sutures. Skin was closed with 4-0 Monocryl in a running subcuticular fashion. Dermabond and dressing was applied. . Condition: stable Disposition: PACU Complications:: None immediately apparent
--- NOTE | 2024-05-27 08:15 | EXP.ANES.I ---
[facility] Anesthesia Record Part I Anesthesia Record I Intake, IV Amount: 450 Hydration: Adequate Estimated blood loss (mL): 10 Urine output (mL): 0 Blood Products used (#): none Blood Pressure: 127/80 SaO2: 97 Pulse Rate: 86 Airway Patency: Patent Respiratory Rate: 16 Temperature: 96.8 F Patient is:: Drowsy and Stable Stable to PACU at:: 08:15
[2024-05-27 08:20] LABS: POC Glucose,Bedside 152 (70-110)
--- NOTE | 2024-05-27 11:00 | P.PNANES_ITS ---
[facility] Anesthesia Record Part II Anesthesia Record Part II Discharge Time: 08:40 Destination: Surgical Day Care (OP Surgery) PACU nurse assessment reviewed?: Yes Patient Condition:: Good Anesthesia Complications:: None Swallowing reflex intact?: Yes Airway Patency: Patent Cyanosis?: No Blood Pressure: 123/71 SaO2: 95 Respiratory Rate: 18 Pulse Rate: 71 Temperature: 97.1 F Mental Status: Alert & Oriented Pain level:: 0 Nausea and/or vomitting:: None Intake, IV Amount: 450 Hydration: Adequate
== END 2024-05-27 09:12 | disposition home or self-care (01) ==
PROVIDERS: PCP Nurse Practitioner Family; Visit Provider Surgery
PROC: (CPT 11406; principal; 2024-05-27 07:30)
DX: D17.1 Benign lipomatous neoplasm of skin and subcutaneous tissue of trunk (principal)
CPT/HCPCS: 11406; 12032; 82962; 96374; J0690; J1100; J1885; J2250; J2405; J3010; J7120

== ENCOUNTER 2024-07-30 10:03 | Outpatient (CLI) | payer BC, SELFPAY ==
[2024-07-30 10:38] LABS: Basophils # 0.1 K/mm3 (0-0.2); Basophils % 1.6 % (0.1-2.0); Eosinophils # 0.1 K/mm3 (0.0-0.4); Eosinophils % 1.1 % (0.1-12.0); Hematocrit 41.3 % (37.0-47.0); Hemoglobin 13.2 g/dL (12.2-16.2); Lymphocytes # 1.6 K/mm3 (0.7-4.5); Lymphocytes % 21.5 % (10-50); Mean Corpuscular HGB Conc 31.9 g/dL (31.8-35.4); Mean Corpuscular Hemoglobin 31.4 pg (27.0-31.2); Mean Corpuscular Volume 98.3 fl (81-99); Mean Platelet Volume 7.5 fl (7.4-10.4); Monocytes # 0.4 K/mm3 (0.1-1.0); Monocytes % 5.7 % (1.7-9.3); Neutrophils # 5.1 K/mm3 (1.8-7.8); Neutrophils % 70.1 % (37.0-80.0); Platelet Count 235 K/mm3 (142-424); Red Cell Distribution Width 14.2 % (11.5-17.5); White Blood Count 7.3 K/mm3 (4.8-10.8)
[2024-07-30 10:54] LABS: Alanine Aminotransferase 49 U/L (12-78); Albumin Level 4.6 g/dl (3.5-5.0); Alkaline Phosphatase 68 U/L (38-126); Anion Gap 10.4 mEq/L (5-15); Aspartate Amino Transferase 51 U/L (14-36); Bilirubin,Direct 0.3 mg/dl (0.0-0.4); Bilirubin,Indirect 0.2 mg/dL (0.0-0.9); Bilirubin,Total 0.5 mg/dl (0.2-1.3); Bilirubin,Unconjugated 0.2 mg/dL (0.0-1.1); Blood Urea Nitrogen 14 mg/dl (7-17); Calcium 9.7 mg/dl (8.4-10.2); Carbon Dioxide 28 mmol/L (22.0-30.0); Chloride 105 mmol/L (98-107); Chol/HDL Ratio 2.7 (1-3.5); Cholesterol 104 mg/dl (140-200); Estimated Glomerular Filt Rate 102 ml/min (>60); GFR (African American) 124 ML/MIN (>60); Glucose 130 mg/dl (74-100); HDL Cholesterol 38 mg/dl (40-60); Potassium 4.4 mmoL/L (3.5-5.1); Sodium 139 mmol/L (136-145); Total Protein,Serum 6.5 g/dl (6.3-8.2); Triglycerides 223 mg/dl (30-150); VLDL Cholesterol 45 mg/dL (0-40)
[2024-07-30 11:05] LABS: Direct LDL Cholesterol 39.74 mg/dL (100-129)
[2024-07-30 11:10] LABS: Free T4 (Free Thyroxine) 0.94 ng/dl (0.78-2.19)
[2024-07-30 11:25] LABS: Thyroid Stimulating Hormone 1.49 uIU/mL (0.465-4.68)
== END 2024-07-30 23:59 | disposition home or self-care (01) ==
LOC: LAB 10:04
PROVIDERS: PCP Nurse Practitioner Family; Visit Provider Nurse Practitioner
DX: R06.09 Other forms of dyspnea (principal); I25.10 Atherosclerotic heart disease of native coronary artery without angina pectoris
CPT/HCPCS: 36415; 80048; 80061; 80076; 84439; 84443; 85025

== ENCOUNTER 2024-08-05 06:15 | Outpatient (CLI) | payer BC, SELFPAY ==
--- NOTE | 2024-08-05 | CA_ITS ---
APPROVED REPORT Exam: Pharmacologic Technologist: Laura Duvall Ht: 5 ft 9 in Wt: 189 lbs BSA: 2.02 m2 HR: 73 bpm BP: 126/76 mmHg Rhythm: NSR Indications: Rule out ischemia Medical History Medications: Aspirin,,,,, Metformin,,,,, Gabapentin,,,,, Losartan,,,,, CloPIdogrel,,,,, Diclofenac,,,,, BisOPROLOL,,,,, JaRDiance,,,,, RoSUVASTATIN,,,,, Clobetasol,,,,, Ozempic,,,,, ValACYCLOVIs,,,,, Stress Test Details Test: LEXISCAN HR Resting HR: 74 bpm Max Heart Rate (APMHR): 161 bpm Max HR Achieved: 97 bpm Target HR (85% APMHR): 137 bpm % of APMHR: 60 Recovery HR: 87 bpm BP Resting BP: 126.0/76.0 mmHg Max BP: 145.0/76.0 mmHg Recovery BP: 148.0/76.0 mmHg ECG Resting ECG: NSR Stress ECG: No significant ST changes Arrhythmia: None Clinical Exercise duration: 04:00 min Highest Stage Achieved: Exercise capacity: 1.0 METs Stress ECG Conclusion Symptoms: Shortness of breath, dizzy, chest tightness Arrhythmias/Ectopy: None ST-T Changes: none Conclusion: Unremarkable ECG on Lexiscan stress test. Myoview images reported separately. Test Summary REST . . . . . . . Resting REST 26:20 . . 74 . 126/ 76 . . Stage 1 . . . . . . . Myoview Injected Stage 1 01:00 . . 94 . . . . Stage 2 . . . . . . . chest tightness Stage 2 01:00 . . 93 . 137/ 74 . . Stage 3 01:00 . . 92 . 131/ 69 . . Stage 4 01:00 . . 89 . 133/ 72 . Stop exercise at 04:00 RECOVERY 01:00 . . 86 . . . . RECOVERY 02:00 . . 86 . 127/ 76 . . RECOVERY 02:18 . . 82 . 145/ 76 . . Electronically signed by : Sherrie Pedroza MD 08/05/2024 12:04:52
--- NOTE | 2024-08-05 06:18 | NM_ITS ---
APPROVED REPORT Exam: Nuclear Stress Test Indication: SOB, DM, High cholesterol, Family history, CAD Patient Location: Outpatient Stress Tech: Lauraangi Duvall NM Tech:Mary Pinto, ARRT, RT (R)(N) Ht: 5 ft 9 in Wt: 190 lbs Bra Size: 42C HR: 74 bpm BP: 126/76 mmHg BSA: 2.02 m2 TID: 1.06 BMI: 28.0 History: SOB, DM, High cholesterol, Family history, CAD Procedure: Patient received 0.4 mg of intravenous Lexiscan, resting heart rate 74 bpm, resting blood pressure 126/76 mmHg, with Lexiscan maximum heart rate achieved was 97 bpm which is % of the maximum predicted heart rate and blood pressure was 145/76 mmHg. With Lexiscan, patient denied any complaint of chest pain. Cardiac Stress and Resting SPECT Images: Cardiac Stress and Resting SPECT images were obtained using technetium 99m Myoview 28.3 mCi stress and 10.91 mCi at rest. Resting and stress imaging in supine and prone positions demonstrate no evidence of fixed or reversible perfusion defects. Gated imaging demonstrates normal global and regional LV systolic function. LVEF is calculated at 63%. Conclusion: No evidence of fixed or reversible perfusion defects. Gated imaging demonstrates normal global and regional LV systolic function. LVEF is calculated at 63%. Electronically signed by : Sherrie Pedroza MD 08/05/2024 12:06:02
[2024-08-05] MEDS: SODIUM CHLORIDE 0.9% 10ML SYR (RAD ONLY) 10 ML IV ×2 (08:44)
[2024-08-05] MEDS: ISOTOPE MYOVIEW (PER STUDY) 1 DOSE IV (08:44)
[2024-08-05] MEDS: REGADENOSON 0.4MG/5ML SYRINGE 0.4 MG IV (08:44)
--- NOTE | 2024-08-05 08:55 | CA_ITS ---
APPROVED REPORT EXAM: Comprehensive 2D, Doppler, and color-flow Echocardiogram Seismic Computer: Faith Veras RT(R) Ht: 5 ft 9 in Wt: 190lbs BSA: 2.02 BP: 117/72 mmHg Indications: SOA, DM, ex smoker, hyperlipidemia, CAD, CONNOR 2D Dimensions Left Atrium 2.97 cm F: 2.7 - 3.8 LVEF (Pinon's) 57.00 % F: 54 - 74 LVOT 1.86 cm (M/F) 1.5-2.5 LV Volume 79.80 mL F: 46 - 106 LV Volume Index 39.5 mL/m2 F: 29 - 61 LA Volume 31.80 mL LA Volume Index 15.74 mL/m2 (M/F) 16-34 EF AP4 56.40 % EF AP2 57.6 % EF BP 57.0 % GL Strain -20.5 % M-Mode Dimensions RVDd 2.69 cm (0.9-2.6) LVDd 4.55 cm (3.5-5.7) Ao Diam 2.36 cm (2.0-3.7) LVDs 3.45 cm (3.5-5.7) IVSd 0.91 cm (0.6-1.1) PWd 0.91 cm (0.6-1.1) EF (Teich) 48.30% FS 24.20% EDV (Teich) 94.90 mL ESV (Teich) 49.10 mL LV Diastology E Decel Time 178 (160-240 msec) E/A Ratio 0.8 MED E' 6.8 (>= 7 cm/sec) E'/MED E' Ratio 11.68 (<= 14) LAT E' 9.2 (>= 10 cm/sec) E/LAT E' Ratio 8.63 (<= 14) Mitral Valve MV E Max Nicolás. 79.0 (40-130 cm/s) MV A Velocity 101.0 (40-130 cm/s) E/A Ratio 0.78 MV Decel. Time 178 (160-240 ms) Left Ventricle The left ventricle is normal size. The left ventricular systolic function is normal. The left ventricular ejection fraction is within the normal range. There is normal left ventricular wall thickness. There is normal LV segmental wall motion. The left ventricular diastolic function is normal. LVEF is 60%. Right Ventricle The right ventricle is normal size. The right ventricular systolic function is normal. Atria The left atrium size is normal. The right atrium size is normal. There is no Doppler evidence of interatrial shunt. Aortic Valve The aortic valve is normal in structure. There is no aortic valvular stenosis. No aortic regurgitation is present. Mitral Valve The mitral valve is normal in structure. No evidence of mitral valve stenosis. Trace mitral regurgitation. Tricuspid Valve Tricuspid valve is grossly normal in structure and function. Trace tricuspid regurgitation. There is insufficient TR jet to estimate RVSP. Pulmonic Valve The pulmonary valve is normal in structure. Trace pulmonic regurgitation. Great Vessels The aortic root is normal in size. The ascending aorta is not well-visualized. IVC is normal in size and collapses >50% with inspiration. Pericardium There is no pericardial effusion. Other Information Study Quality: Fair Conclusion Normal biventricular systolic function. No significant valvular stenosis or regurgitation. Electronically signed by : Sherrie Pedroza MD 08/05/2024 12:17:03
== END 2024-08-05 23:59 | disposition home or self-care (01) ==
LOC: RAD 06:15
PROVIDERS: PCP Nurse Practitioner Family; Visit Provider Nurse Practitioner
DX: R06.09 Other forms of dyspnea (principal); I25.10 Atherosclerotic heart disease of native coronary artery without angina pectoris
CPT/HCPCS: 78452; 93017; 93018; 93306; A9502; J2785

== ENCOUNTER 2024-08-27 10:52 | Outpatient (CLI) | payer BC, SELFPAY | END 2024-08-27 23:59 | disposition home or self-care (01) | LOC: LAB.DROPOF 08-28 10:53 | PROVIDERS: PCP Podiatrist; Visit Provider Podiatrist | DX: L97.511 Non-pressure chronic ulcer of other part of right foot limited to breakdown of skin (principal) | CPT/HCPCS: 87070; 87077; 87186; 87205 ==

== ENCOUNTER 2024-09-16 13:36 | Outpatient (CLI) | payer BC, SELFPAY ==
[2024-09-16 14:00] LABS: Basophils % 0.8 % (0.1-2.0); Eosinophils # 0.1 K/mm3 (0.0-0.4); Eosinophils % 1.7 % (0.1-12.0); Hematocrit 36.8 % (37.0-47.0); Hemoglobin 12.4 g/dL (12.2-16.2); Lymphocytes # 1.7 K/mm3 (0.7-4.5); Lymphocytes % 32.7 % (10-50); Mean Corpuscular HGB Conc 33.7 g/dL (31.8-35.4); Mean Corpuscular Hemoglobin 32.3 pg (27.0-31.2); Mean Corpuscular Volume 95.8 fl (81-99); Mean Platelet Volume 7.9 fl (7.4-10.4); Monocytes # 0.3 K/mm3 (0.1-1.0); Monocytes % 5.7 % (1.7-9.3); Neutrophils % 59.1 % (37.0-80.0); Platelet Count 159 K/mm3 (142-424); Red Blood Count 3.84 M/mm3 (4.20-5.40); White Blood Count 5.1 K/mm3 (4.8-10.8)
[2024-09-16 14:04] LABS: Albumin Level 4.7 g/dl (3.5-5.0); Chloride 105 mmol/L (98-107); Potassium 4.4 mmoL/L (3.5-5.1); Sodium 140 mmol/L (136-145)
[2024-09-16 14:07] LABS: Alanine Aminotransferase 63 U/L (12-78); Albumin/Globulin Ratio 2.6 (1.1-1.8); Alkaline Phosphatase 76 U/L (38-126); Anion Gap 16.4 mEq/L (5-15); Aspartate Amino Transferase 40 U/L (14-36); Bilirubin,Total 0.4 mg/dl (0.2-1.3); Blood Urea Nitrogen 28 mg/dl (7-17); Carbon Dioxide 23 mmol/L (22.0-30.0); Estimated Glomerular Filt Rate 57 ml/min (>60); GFR (African American) 69 ML/MIN (>60); Globulin 1.8 g/dL (1.3-3.2); Total Protein,Serum 6.5 g/dl (6.3-8.2)
[2024-09-16 14:08] LABS: Calcium 9.6 mg/dl (8.4-10.2); Glucose 182 mg/dl (74-100)
[2024-09-16 14:13] LABS: C-Reactive Protein 1.4 mg/L (0-4)
[2024-09-16 15:00] LABS: Hemoglobin A1C 6.7 % (4.0-6.0)
[2024-09-16 15:27] LABS: Erythrocyte Sedimentation Rate 24 mm/hr (0-30)
== END 2024-09-16 23:59 | disposition home or self-care (01) ==
LOC: LAB 13:37
PROVIDERS: PCP Nurse Practitioner Family; Visit Provider Podiatrist
DX: E11.621 Type 2 diabetes mellitus with foot ulcer (principal); L97.512 Non-pressure chronic ulcer of other part of right foot with fat layer exposed
CPT/HCPCS: 36415; 80053; 83036; 85025; 85651; 86140

== ENCOUNTER 2024-09-19 11:52 | Day surgery (SDC) | payer BC, SELFPAY ==
[2024-09-17 14:09] VITALS: BMI 27.6
[2024-09-19 12:04] VITALS: BP 138/83; PULSE 68; RESP 18; TEMP 36.6; O2SAT 99
[2024-09-19] MEDS: GENTAMICIN 80 MG/2 ML VIAL (13:05)
--- NOTE | 2024-09-19 13:25 | EXP.OP.NOTE ---
Date of procedure: 09/19/24 Pre-op Diagnosis:: Right DFU Post-op Diagnosis:: Same Procedure performed:: Right foot wound debridement Application of graft (Organogenesis) #1 Surgeon:: Gay Weathers DPM Anesthesia: none Estimated blood loss (mL): 2 Clinical Note:: Patient is a 58-year-old diabetic female with a right plantar foot ulcer. Patient has failed conservative treatment, including multiple office debridements, various wound dressings, off-loading, immobilization. The recent x-rays are negative for underlying bone infection. Any prior skin/soft tissue infection resolved with oral antibiotics. We discussed surgery. All risks and benefits were discussed including but not limited to: damage to blood vessels and nerves, bleeding, infection, wound complications, need for further surgery, implant/graft failure, need for removal of implant/graft, allergic reaction, prolonged or permanent swelling of the extremity, prolonged or permanent pain or deformity, CRPS/RSD, DVT/PE, and anesthetic complications including . Patient understands if wound/graft gets infected, it could lead to prolonged oral or IV antibiotics or increased risk of osteomyelitis, which could lead to possible loss of digits, partial foot or even BKA. No guarantees were given. All questions fully answered. The patient verbalized understanding and agreed to proceed with surgery. Written consent was obtained. Operative findings:: Right foot DFU sub 2nd metatarsal noted with mikel wound callus. No skin blistering or maceration noted. DFU was sharply excisionally debrided with a 15 blade and curette full thickness thru skin into subq. No mikel wound erythema and minimal edema. Post debridement: 100% granular, 1.0 x 0.7 x 0.3cm. No acute signs of infection noted. Operative note:: On this date and time patient was deemed an appropriate surgical candidate. With informed consent signed, the patient was taken to the local procedure operating theater room. The patient was positioned supine. No anesthesia was induced. No tourniquet used. Right lower extremity was prepped and draped in normal sterile fashion. 1g IM Rocephin given. Right plantar foot wound debridement: Ulcer noted to the plantar sub 2 met. Predebridement there was minimal maceration and no acute signs of infection noted. Sharp excisional full-thickness debridement with 15 blade, curette, forceps down to/including subcutaneous tissue. Biofilm and fibrotic slough removed. No deep fascia or bone exposed. The skin edges were debrided with 15' blade, some bleeding noted. The wound was flushed with gentamicin irrigation. Skin cleansed with saline. Mastisol applied around the wound edges. Application of Apligraf (Organogenesis wound graft): Graft was prepared in standard fashion. The entire graft was utilized over the wound. The graft was placed to the DFU and secured with Steri-Strips. Adaptic was applied over the graft followed by dry sterile dressing to right foot. The patient tolerated the procedure well, without complications. Materials: Organogenesis Aligraf wound graft x1 Discharge/Plan: Ok to discharge home when ready and vss. Patient is to maintain dressing clean dry and intact. Elevate on two pillows. Minimize weight bearing. NWB to RLE in fracture boot with walker/crutches/RKS. Discussed planned staged surgery in 1 week on 09/26/24 @1300: right foot wound debridement, application of wound graft #2. Condition: stable Disposition: same day Complications:: None
[2024-09-19 13:34] VITALS: BP 111/66; PULSE 78; RESP 18; TEMP 36.3; O2SAT 99
[2024-09-23 16:09] LABS: POC Glucose,Bedside 103 (70-110)
== END 2024-09-19 13:40 | disposition home or self-care (01) ==
PROVIDERS: PCP Nurse Practitioner Family; Visit Provider Podiatrist
PROC: (CPT 15275; principal; 2024-09-19 13:00)
DX: E11.621 Type 2 diabetes mellitus with foot ulcer (principal); Z79.4 Long term (current) use of insulin; Z79.85 Long-term (current) use of injectable non-insulin antidiabetic drugs; Z79.899 Other long term (current) drug therapy; L97.519 Non-pressure chronic ulcer of other part of right foot with unspecified severity
CPT/HCPCS: 15275; 82962; J1580; Q4101

== ENCOUNTER 2024-09-26 11:42 | Day surgery (SDC) | payer BC, SELFPAY ==
[2024-09-25 12:07] VITALS: BMI 27.7
[2024-09-26 12:06] VITALS: BP 128/71; PULSE 81; RESP 18; TEMP 36.2; O2SAT 98
[2024-09-26 12:14] LABS: POC Glucose,Bedside 188 (70-110)
[2024-09-26] MEDS: GENTAMICIN 80 MG/2 ML VIAL (13:06)
[2024-09-26 13:27] VITALS: BP 161/95; PULSE 76; RESP 18; TEMP 36.3; O2SAT 99
--- NOTE | 2024-09-26 13:30 | P.OP_ITS ---
Date of procedure: 09/26/24 Pre-op Diagnosis:: Right DFU Left foot dermatitis Post-op Diagnosis:: Same Procedure performed:: Right foot wound debridement Application of graft (Organogenesis) #2 Surgeon:: Gay Weathers DPM Anesthesia: none Estimated blood loss (mL): 1 Clinical Note:: Patient is a 58-year-old diabetic female with a right plantar foot ulcer. Patient has failed conservative treatment, including multiple office debridements, various wound dressings, off-loading, immobilization. The recent x-rays are negative for underlying bone infection. Any prior skin/soft tissue infection resolved with oral antibiotics. We discussed planned wound graft surgery. Has had right foot wound debridement with graft application: #1: 09/19/24, #2: 09/26/24. All risks and benefits were discussed including but not limited to: damage to blood vessels and nerves, bleeding, infection, wound complications, need for further surgery, implant/graft failure, need for removal of implant/graft, allergic reaction, prolonged or permanent swelling of the extremity, prolonged or permanent pain or deformity, CRPS/RSD, DVT/PE, and anesthetic complications including . Patient understands if wound/graft gets infected, it could lead to prolonged oral or IV antibiotics or increased risk of osteomyelitis, which could lead to possible loss of digits, partial foot or even BKA. No guarantees were given. All questions fully answered. The patient verbalized understanding and agreed to proceed with surgery. Written consent was obtained. Operative findings:: Right foot DFU sub 2nd metatarsal noted with mikel wound callus. No skin blistering or maceration noted. DFU was sharply excisionally debrided with a 15 blade and curette full thickness thru skin into subq. No mikel wound erythema and minimal edema. Overall the wound looks smaller with graft incorporation noted. Post debridement: 100% granular, 0.6 x 0.5 x 0.2cm. No acute signs of infection noted. Left dorsal 1-2nd MTPJ dermatitis noted. Operative note:: On this date and time patient was deemed an appropriate surgical candidate. With informed consent signed, the patient was taken to the local procedure operating theater room. The patient was positioned supine. No anesthesia was induced. No tourniquet used. Right lower extremity was prepped and draped in normal sterile fashion. 1g IM Rocephin given. Right plantar foot wound debridement: Ulcer noted to the plantar sub 2nd met. Predebridement there was no maceration and no acute signs of infection noted. Some graft incorporation noted. Sharp excisional full-thickness debridement with 15 blade, curette, forceps down to/including subcutaneous tissue. Biofilm and fibrotic slough removed. No deep fascia or bone exposed. The skin edges were debrided with 15' blade, some bleeding noted. The wound was flushed with gentamicin irrigation. Skin cleansed with saline. Mastisol applied around the wound edges. Application of Apligraf (Organogenesis wound graft): Graft was prepared in standard fashion. The entire graft was utilized over the wound. The graft was placed to the DFU and secured with Steri-Strips. Adaptic was applied over the graft followed by dry sterile dressing to right foot. The patient tolerated the procedure well, without complications. Materials: Organogenesis Aligraf wound graft x1 Discharge/Plan: Ok to discharge home when ready and vss. Patient is to maintain dressing clean dry and intact. Elevate on two pillows. Minimize weight bearing. NWB to RLE in fracture boot with walker/crutches/RKS. Discussed planned staged surgery in 1-2 weeks if needed for right foot wound debridement, application of wound graft #3. Will plan to see outpatient in office in 1 week for re- evaluation and discuss if she needs another graft or not. Condition: stable Disposition: same day Complications:: None
[2024-09-26] MEDS: cefTRIAXone 1GM VIAL 1 GM IM (13:42)
== END 2024-09-26 13:40 | disposition home or self-care (01) ==
PROVIDERS: PCP Nurse Practitioner Family; Visit Provider Podiatrist
PROC: (CPT 15275; principal; 2024-09-26 13:00)
DX: E11.621 Type 2 diabetes mellitus with foot ulcer (principal); Z79.84 Long term (current) use of oral hypoglycemic drugs; Z79.85 Long-term (current) use of injectable non-insulin antidiabetic drugs; Z87.891 Personal history of nicotine dependence
CPT/HCPCS: 15275; 82962; J0696; J1580; Q4101

== ENCOUNTER 2025-01-16 15:04 | Outpatient (CLI) | payer BC, SELFPAY ==
[2025-01-16 15:11] LABS: Microscopic, Urine URINE MICROSCOPIC (MICROSCOPIC)
[2025-01-16 16:03] LABS: Hematocrit 36.9 % (37.0-47.0); Hemoglobin 12.3 g/dL (12.2-16.2); Mean Corpuscular HGB Conc 33.3 g/dL (31.8-35.4); Mean Corpuscular Hemoglobin 31.5 pg (27.0-31.2); Mean Corpuscular Volume 94.6 fl (81-99); Platelet Count 209 K/mm3 (142-424); Red Cell Distribution Width 13.2 % (11.5-17.5); White Blood Count 5.4 K/mm3 (4.8-10.8)
[2025-01-16 16:32] LABS: Albumin Level 5.1 g/dl (3.5-5.0); Anion Gap 13.8 mEq/L (5-15); Blood Urea Nitrogen 38 mg/dl (7-17); Calcium 9.9 mg/dl (8.4-10.2); Carbon Dioxide 27 mmol/L (22.0-30.0); Chloride 101 mmol/L (98-107); Estimated Glomerular Filt Rate 64 ml/min (>60); GFR (African American) 77 ML/MIN (>60); Glucose 102 mg/dl (74-100); Potassium 4.8 mmoL/L (3.5-5.1); Sodium 137 mmol/L (136-145)
[2025-01-16 17:05] LABS: Appearance,Urine CLEAR (Clear); Bilirubin,Urine Negative (Negative); Blood, Urine Negative (Negative); Color,Urine YELLOW (Yellow); Glucose,Urine (UA) 2+ (Negative); Ketones,Urine Negative (Negative); Leukocyte Esterase,Urine Negative (Negative); Nitrate,Urine Negative (Negative); Protein,Urine Negative (Negative); Specific Gravity, Urine <= 1.005 (1.005-1.030); Urobilinogen,Urine 0.2 EU/dl (0.2)
[2025-01-16 17:22] LABS: Bacteria,Urine 3+ /lpf
[2025-01-16 17:31] LABS: Creatinine,Urine Random 15 mg/dL (Not Estab.); Microalbumin < 6.000 mg/L (0-16.7)
== END 2025-01-16 23:59 | disposition home or self-care (01) ==
LOC: LAB 15:05
PROVIDERS: PCP Nurse Practitioner Family; Visit Provider Internal Medicine Nephrology
DX: R80.9 Proteinuria, unspecified (principal)
CPT/HCPCS: 36415; 80069; 81001; 82043; 82570; 84156; 85027; 87086

== ENCOUNTER 2025-03-03 15:38 | Outpatient (CLI) | payer BC, SELFPAY ==
--- OUTSIDE RECORDS SUMMARY | 2025-03-03 15:42 | XMS_ITS | Data Portability ---
Author Organization [facility] ADMIN Address [address] [place] [id number] Care Team Providers Care Car Dispatcher Name Role Phone AMALIA MCCORD Referring Provider [phone] AMALIA MCCORD Primary Care Provider Assessment Encounter Date Assessment Date Assessment LastModified by Organization Details LastModified Time 11/28/2022 11/28/2022 Amalia Karimi APRN, Dear Shona, just want to let you know that I saw Zehra Espino in the off state your request. She is a 57-year-old employee out at [employer] who has had a several month history of worsening epigastric right upper quadrant abdominal pain. She noticed that this usually follows the ingestion of fatty meals. You have worked her up with an ultrasound of the gallbladder which identified cholelithiasis and kindly referred her to me for further evaluation and recommendations. NKDA MEDICATIONS: Documented by the patient and on the chart PAST MEDICAL HISTORY: Us for diabetes negative for high blood pressure heart disease PAST SURGICAL HISTORY: x2 knee surgery and appendicitis FAMILY HISTORY: Positive for cancer diabetes heart disease stroke in negative for liver or kidney SOCIAL HISTORY: Denies tobacco or alcohol use REVIEW OF SYSTEMS: General: no malaise, fever, no constitutional symptoms of malignancy Eyes: no blurred vision, no loss of vision no change in vision, no discharge Nose: No drainage, no bleeding, no obstruction Oropharynx: No sore throat, no change in voice, no difficulty swallowing Pulmonary: No shortness of breath, no dyspnea on exertion, no productive cough, no bleeding Cardiac: No chest pain, no palpitation, no racing heartbeat, no dyspnea when lying flat Abdominal: No abdominal pain, no nausea, no vomiting, no diarrhea : No dysuria, no hematuria, no lack of urine, no pain with urination Musculoskeletal: No joint pain, no back pain, no muscle pain, no claudication Integumentary: No rashes, no open sores, no open wounds Hematologic: No history of blood clots, no PEs, no history of free bleeding Endocrine: No cold intolerance, no heat intolerance, no polydipsia Neurologic: No loss of consciousness, no gait imbalance, no loss of function or sensation Remaining 14 point ROS noncontributory PHYSICAL EXAM: VS: Respirations 16 pulse 79 blood pressure 136/86. BMI is 27.4 General: Well-developed, alert orient x3. In no obvious distress. HEENT: Normal cephalic atraumatic extraocular muscles intact. No scleral icterus nasal passages are patent without discharge oropharynx is clear. Neck is soft and supple without lateral cervical adenopathy there is no visualized intraoral lesion. CHEST: No accessory muscle use lungs are clear to auscultation. Heart is regular rate and rhythm without murmur ABDOMEN: Soft, nontender nondistended, positive bowel sounds, no hepatosplenomegaly no masses : Grossly normal anatomy, no inguinal adenopathy or herniation EXT: Positive pulses no cyanosis clubbing or edema NEURO: Cranial nerves 2-12 grossly intact no focal or motor sensory deficits ASSESSMENT: I had a long and detailed discussion with Mrs. Delgado about her diagnosis and the treatment options. We discussed the technical aspects of a robotic versus an open cholecystectomy in the reasons for conversion. We discussed the risks including bleeding, infection, heart attack, stroke, common duct injury, bile leak, etc.. After thorough and detailed discussion, the patient has agreed to proceed. I will schedule her at her convenience and I will keep you up-to-date on developments in her case. Appreciate you asking me see this nice lady. Sincerely, Antwan Funk This document has been prepared with the use of voice recognition software and may contain sound alike and software old missions or errors in punctuate rojas and or spelling, etc. [email or web address] Not available 11/28/2022 11:49:55 01/02/2023 01/02/2023 Ms Espino returns after robotic cholecystectomy. She is doing very well without serous complaints or issues. The wounds are intact without sign of infection. She can return to work in 1 week if she does not lift more than 35 lb. Follow-up in a month as needed [email or web address] Not available 01/02/2023 09:09:29 10/01/2024 10/01/2024 Ms. Espino is a a 58 year old female her for: 1)Elevated Liver Enzymes - Check labs for other reasons for viral, autoimmune, genetic and metabolic reasons for elevated liver enzymes call with results - Will give her hard copy of labs to get when she is fasting. If BAUTISTA fibrosure shows F4 will need EGD for variceal screening - Vit E not option given diabetes and heart hx. Rezdiffra may be option depending on labs - Liver ultrasound ordered -Recommend limiting alcohol, no more then 2g of Tylenol/daily 2)Colorectal Cancer Screening -Hx polyps in father -reports last colonoscopy 2020 w/ polyps (dx colon due 2025) [email or web address] Not available 10/01/2024 19:12:31 Plan of Treatment Reminders Order Date Submit Date Provider Last Modified By Organization Details Last Modified Time Details Appointments Establish ed Visit 15 min 2024 03:30P M VANESSA CARDOZO NP Not available Not available Not available Lab hepatitis panel (A+B+C), acute, serum 2023 024 [email or web address] [facility] (Registration ), [address] [place], [address], 11/14/2024 11:24:16 igg, quantitat liliam, serum 2023 024 [facility] (Registration ), [address] [place], [address], 10/03/2024 15:14:32 mitochond rial Ab, serum 2023 024 [facility] (Registration ), [address] , [place], [address], 10/03/2024 15:14:30 actin smooth muscle Ab, serum 2023 024 [facility] (Registration ), [address] , [place], [address], 10/03/2024 15:14:34 ARNAV (antinucl ear antibodie s) screen, serum 2023 024 [facility] (Registration ), [address], [place], [address], 10/03/2024 13:13:40 alpha-1-a ntitrypsi n (aat), QN, serum [email or web address] [place] [address] (Registration ), [address], [place], [address], 11/14/2024 11:24:16 CBC w/ auto diff 2023 024 [facility] (Registration ), [address], [place], [address], 10/02/2024 07:51:03 PT/INR 2023 024 [email or web address] [address] [place] [address] (Registration ), [address], [place], [address], 11/14/2024 11:24:16 nonalcoho lic steatohep atitis + fibrosis panel, serum or plasma 2023 [email or web address] [place] [address] (Registration ), [address] [place], [address], 11/14/2024 11:24:16 alpha-1-a ntitrypsi n (aat) phenotype , serum 2023 [email or web address] [place] [address] (Registration ), [address] [place], [address], 11/14/2024 11:24:17 CMP, serum or plasma 2023 024 [facility] (Registration ), [address] [facility], [place], [address], 10/02/2024 08:04:39 hemochrom atosis mutation (hfe), blood/tis yudi 2023 024 [email or web address] 4 [facility] (Registration ), [address] [facility], [place], [address], 11/14/2024 11:24:17 Referral general surgeon referral 2021 022 JACKSON Funk MD, [address] [facility], [address], [place], [address], 03/17/2024 05:01:33 Procedures None recorded. Surgeries None recorded. Imaging US, liver 2023 024 JACKSON G[facility]wn [facility] Number, [address] [place], [address], 10/14/2024 11:59:54 Medication Orders None recorded. Patient TargetsNo targets recorded. Patient Instructions Encounter Date Encounter Id Patient Instructions Last Modified By Organization Details Last Modified Time 10/01/2024 [id number] 6 month f/u [email or web address] Not available 10:52:52 Reason for Referral General Surgeon Referral for Cholelithiasis without obstruction Referring Physician: Johnna Karimi, Family Medicine, Encounter Date: 10/26/2022 Results Created Date Observation Date Name Description Value Unit Range Abnormal Flag Note LastModifiedBy Organization Detail LastModifiedTime 12/13/1912/13/2022 CBC AUTO NO DIFF (HEMO GRAM) WBC 5.7 K/uL 4.0-10 .5 Not Available [facility] ([facility]) [address] [facility], [place], [address], 12/13/2022 16:35:15 12/13/1912/13/2022 CBC AUTO NO DIFF (HEMO GRAM) RBC 4.2 M/mm3 4.2-6. 4 Not Available [facility] ([facility]) [address] [facility], [place], [address], 12/13/2022 16:35:15 12/13/19 23 12/13/2022 CBC AUTO NO DIFF (HEMO GRAM) HGB 13.0 gm/dL 12.5-1 6.0 Not Available [facility] ([facility]) [address] , [place], [address], 12/13/2022 16:35:15 12/13/19 23 12/13/2022 CBC AUTO NO DIFF (HEMO GRAM) HCT 38.9 % 37.0-4 7.0 Not Available [facility] ([facility]) [address] , [place], [address], 12/13/2022 16:35:15 12/13/19 23 12/13/2022 CBC AUTO NO DIFF (HEMO GRAM) MCV 93.5 fL 78-100 Not Available [facility] ([facility]) [address] , [place], [address], 12/13/2022 16:35:15 12/13/19 23 12/13/2022 CBC AUTO NO DIFF (HEMO GRAM) MCH 31.3 pg 27-31 high Not Available [facility] ([facility]) [address] , [place], [address], 12/13/2022 16:35:15 12/13/19 23 12/13/2022 CBC AUTO NO DIFF (HEMO GRAM) MCHC 33.4 g/dL 32-36 Not Available [facility] ([facility]) [address] , [place], [address], 12/13/2022 16:35:15 12/13/19 23 12/13/2022 CBC AUTO NO DIFF (HEMO GRAM) RDW 12.9 % 11.5-1 4.0 Not Available [facility] ([facility]) [address] , [place], [address], 12/13/2022 16:35:15 12/13/19 23 12/13/2022 CBC AUTO NO DIFF (HEMO GRAM) platelet count 193 K/uL 150-45 0 Not Available [facility] ([facility]) [address] , [place], [address], 12/13/2022 16:35:15 12/13/19 23 12/13/2022 CBC AUTO NO DIFF (HEMO GRAM) manual differential NO Not Available [facility] ([facility]) [address] , [place], [address], 12/13/2022 16:35:15 12/13/19 23 12/13/2022 COMP METAB OLIC PANEL sodium 139 mmol/ L 136-14 5 Not Available [facility] ([facility]) [address] , [place], [address], 12/13/2022 17:16:34 12/13/19 23 12/13/2022 COMP METAB OLIC PANEL potassium 3.5 mmol/ L 3.6-5. 0 low Not Available [facility] ([facility]) [address] , [place], [address], 12/13/2022 17:16:34 12/13/19 23 12/13/2022 COMP METAB OLIC PANEL chloride 102 mmol/ L 98-107 Not Available [facility] ([facility]) [address] , [place], [address], 12/13/2022 17:16:34 12/13/19 23 12/13/2022 COMP METAB OLIC PANEL carbon dioxide 31.2 mmol/ L 21.0-3 2.0 Not Available [facility] ([facility]) [address] [place], [address], 12/13/2022 17:16:34 12/13/19 23 12/13/2022 COMP METAB OLIC PANEL anion gap 9.3 Not Available [facility] ([facility]) [address] [place], [address], 12/13/2022 17:16:34 12/13/19 23 12/13/2022 COMP METAB OLIC PANEL glucose 126 mg/dL 70-120 high Not Available [facility] ([facility]) [address], [place], [address], 12/13/2022 17:16:34 12/13/19 23 12/13/2022 COMP METAB OLIC PANEL BUN 25 mg/dL 7-18 high Not Available [facility] ([facility]) [address], [place], [address], 12/13/2022 17:16:34 12/13/19 23 12/13/2022 COMP METAB OLIC PANEL creatinine 1.0 mg/dL 0.6-1. 3 Not Available [facility] ([facility]) [address] , [place], [address], 12/13/2022 17:16:34 12/13/19 23 12/13/2022 COMP METAB OLIC PANEL glomerular filtration rate >60 mlper min 60- Not Available [facility] ([facility]) [address] , [place], [address], 12/13/2022 17:16:34 12/13/19 23 12/13/2022 COMP METAB OLIC PANEL total protein 6.9 g/dL 6.4-8. 2 Not Available [facility] ([facility]) [address] , [place], [address], 12/13/2022 17:16:34 12/13/19 23 12/13/2022 COMP METAB OLIC PANEL albumin 4.1 g/dL 3.4-5. 0 Not Available [facility] ([facility]) [address] , [place], [address], 12/13/2022 17:16:34 12/13/19 23 12/13/2022 COMP METAB OLIC PANEL globulin 2.8 Not Available [facility] ([facility]) [address], [place], [address], 12/13/2022 17:16:34 12/13/19 23 12/13/2022 COMP METAB OLIC PANEL alb/glob ratio 1.5 0.7-2 Not Available [facility] ([facility]) [address], [place], [address], 12/13/2022 17:16:34 12/13/19 23 12/13/2022 COMP METAB OLIC PANEL calcium 9.6 mg/dL 8.5-10 .5 Not Available [facility] ([facility]) [address], [place], [address], 12/13/2022 17:16:34 12/13/19 23 12/13/2022 COMP METAB OLIC PANEL bilirubin total 0.30 mg/dL 0.10-1 .00 Not Available [facility] ([facility]) [address], [place], [address], 12/13/2022 17:16:34 12/13/19 23 12/13/2022 COMP METAB OLIC PANEL AST (SGOT) 31 U/L 0-37 Not Available [facility] ([facility]) [address] , [place], [address], 12/13/2022 17:16:34 12/13/19 23 12/13/2022 COMP METAB OLIC PANEL ALT (SGPT) 47 U/L 0-65 Not Available [facility] ([facility]) [address] , [place], [address], 12/13/2022 17:16:34 12/13/19 23 12/13/2022 COMP METAB OLIC PANEL alk phosphatase 68 U/L 46-116 Not Available [facility] ([facility]) [address], [place], [address], 12/13/2022 17:16:34 10/02/20 24 10/02/2024 CBC AUTO W DIFF WBC 5.0 K/uL 4.0-10 .5 Not Available [facility] ([facility]) [address] , [place], [address], 10/02/2024 07:51:03 10/02/20 24 10/02/2024 CBC AUTO W DIFF RBC 4.1 M/mm3 4.2-6. 4 low Not Available [facility] ([facility]) [address] , [place], [address], 10/02/2024 07:51:03 10/02/20 24 10/02/2024 CBC AUTO W DIFF HGB 12.7 gm/dL 12.5-1 6.0 Not Available [facility] ([facility]) [address] , [place], [address], 10/02/2024 07:51:03 10/02/20 24 10/02/2024 CBC AUTO W DIFF HCT 39.5 % 37.0-4 7.0 Not Available [facility] ([facility]) [address] , [place], [address], 10/02/2024 07:51:03 10/02/20 24 10/02/2024 CBC AUTO W DIFF MCV 96.3 fL 78-100 Not Available [facility] ([facility]) [address] , [place], [address], 10/02/2024 07:51:03 10/02/20 24 10/02/2024 CBC AUTO W DIFF MCH 31.0 pg 27-31 Not Available [facility] ([facility]) [address] [place], [address], 10/02/2024 07:51:03 10/02/20 24 10/02/2024 CBC AUTO W DIFF MCHC 32.2 g/dL 32-36 Not Available [facility] ([facility]) [address], [place], [address], 10/02/2024 07:51:03 10/02/20 24 10/02/2024 CBC AUTO W DIFF RDW 13.0 % 11.5-1 4.0 Not Available [facility] ([facility]) [address], [place], [address], 10/02/2024 07:51:03 10/02/20 24 10/02/2024 CBC AUTO W DIFF platelet count 208 K/uL 150-45 0 Not Available [facility] ([facility]) [address] [facility], [place], [address], 10/02/2024 07:51:03 10/02/20 24 10/02/2024 CBC AUTO W DIFF MPV 9.8 fL 6-9.5 high Not Available [facility] ([facility]) [address] [place], [address], 10/02/2024 07:51:03 10/02/20 24 10/02/2024 CBC AUTO W DIFF neutrophil% 59.1 % 43-65 Not Available [facility] ([facility]) [address], [place], [address], 10/02/2024 07:51:03 10/02/20 24 10/02/2024 CBC AUTO W DIFF lymphocyte% 31.1 % 20.5-4 5.5 Not Available [facility] ([facility]) [address] [place], [address], 10/02/2024 07:51:03 10/02/20 24 10/02/2024 CBC AUTO W DIFF monocyte% 7.0 % 5.5-11 .7 Not Available [facility] ([facility]) [address] [place], [address], 10/02/2024 07:51:03 10/02/20 24 10/02/2024 CBC AUTO W DIFF eosinophil% 2.2 % 0.9-2. 9 Not Available [facility] ([facility]) [address] [place], [address], 10/02/2024 07:51:03 10/02/20 24 10/02/2024 CBC AUTO W DIFF basophil% 0.4 % 0.2-1. 0 Not Available [facility] ([facility]) [address] [place], [address], 10/02/2024 07:51:03 10/02/20 24 10/02/2024 CBC AUTO W DIFF immature granulocytes % 0.2 % 0.0-0. 8 Not Available [facility] ([facility]) [address] [place], [address], 10/02/2024 07:51:03 10/02/20 24 10/02/2024 CBC AUTO W DIFF nucleated red blood cells % 0.0 % Not Available [facility] ([facility]) [address] [facility], [place], [address], 10/02/2024 07:51:03 10/02/20 24 10/02/2024 CBC AUTO W DIFF neutrophil# 3.0 K/uL 2.2-4. 8 Not Available [facility] ([facility]) [address] [place], [address], 10/02/2024 07:51:03 10/02/20 24 10/02/2024 CBC AUTO W DIFF lymphocyte# 1.6 cell/ mcL 1.3-2. 9 Not Available [facility] ([facility]) [address] [place], [address], 10/02/2024 07:51:03 10/02/20 24 10/02/2024 CBC AUTO W DIFF monocyte# 0.4 cell/ mcL 0.3-0. 8 Not Available [facility] ([facility]) [address] [place], [address], 10/02/2024 07:51:03 10/02/20 24 10/02/2024 CBC AUTO W DIFF eosinophil# 0.1 cell/ mcL 0-0.2 Not Available [facility] ([facility]) [address] , [place], [address], 10/02/2024 07:51:03 10/02/20 24 10/02/2024 CBC AUTO W DIFF basophil# 0.0 cell/ mcL 0.0-1. 0 Not Available [facility] ([facility]) [address], [place], [address], 10/02/2024 07:51:03 10/02/20 24 10/02/2024 CBC AUTO W DIFF immature gramulocytes # 0.01 K/uL Not Available [facility] ([facility]) [address], [place], [address], 10/02/2024 07:51:03 10/02/20 24 10/02/2024 CBC AUTO W DIFF nucleated red blood cells # 0.00 K/uL Not Available [facility] ([facility]) [address], [place], [address], 10/02/2024 07:51:03 10/02/20 24 10/02/2024 CBC AUTO W DIFF manual differential NO Not Available [facility] ([facility]) [address], [place], [address], 10/02/2024 07:51:03 10/02/20 24 10/02/2024 COMP METAB OLIC PANEL sodium 140 mmol/ L 136-14 5 Not Available [facility] ([facility]) [address], [place], [address], 10/02/2024 08:04:39 10/02/20 24 10/02/2024 COMP METAB OLIC PANEL potassium 4.1 mmol/ L 3.6-5. 0 Not Available [facility] ([facility]) [address] , [place], [address], 10/02/2024 08:04:39 10/02/20 24 10/02/2024 COMP METAB OLIC PANEL chloride 102 mmol/ L 98-107 Not Available [facility] ([facility]) [address] , [place], [address], 10/02/2024 08:04:39 10/02/20 24 10/02/2024 COMP METAB OLIC PANEL carbon dioxide 26.6 mmol/ L 21.0-3 2.0 Not Available [facility] ([facility]) [address] , [place], [address], 10/02/2024 08:04:39 10/02/20 24 10/02/2024 COMP METAB OLIC PANEL anion gap 15.5 Not Available [facility] ([facility]) [address] , [place], [address], 10/02/2024 08:04:39 10/02/20 24 10/02/2024 COMP METAB OLIC PANEL glucose 147 mg/dL 70-120 high Not Available [facility] ([facility]) [address] , [place], [address], 10/02/2024 08:04:39 10/02/20 24 10/02/2024 COMP METAB OLIC PANEL BUN 19 mg/dL 7-18 high Not Available [facility] ([facility]) [address] , [place], [address], 10/02/2024 08:04:39 10/02/20 24 10/02/2024 COMP METAB OLIC PANEL creatinine 0.8 mg/dL 0.6-1. 3 Not Available [facility] ([facility]) [address] [place], [address], 10/02/2024 08:04:39 10/02/20 24 10/02/2024 COMP METAB OLIC PANEL glomerular filtration rate 85 mlper min 60- GFR LIMIT ATION : The eGFR equat ion CKD-E PI 2020 is not appli cable for pedia tric patie nts or great er than 90 years of age. The follo wing condi tions may alter the GFR resul t: extre mes in body size, malnu triti on or obesi ty, skele [place] muscl e disea se, parap legia or quadr ipleg ia, veget sho diet or rapid ly latham ing kiney funct ion. Not Available [facility] ([facility]) [address], [place], [address], 10/02/2024 08:04:39 10/02/20 24 10/02/2024 COMP METAB OLIC PANEL total protein 7.5 g/dL 6.4-8. 2 Not Available [facility] ([facility]) [address] [facility], [place], [address], 10/02/2024 08:04:39 10/02/20 24 10/02/2024 COMP METAB OLIC PANEL albumin 4.2 g/dL 3.4-5. 0 Not Available [facility] ([facility]) [address] [facility], [place], [address], 10/02/2024 08:04:39 10/02/20 24 10/02/2024 COMP METAB OLIC PANEL globulin 3.3 Not Available [facility] ([facility]) [address] [facility], [place], [address], 10/02/2024 08:04:39 10/02/20 24 10/02/2024 COMP METAB OLIC PANEL alb/glob ratio 1.3 0.7-2 Not Available [facility] ([facility]) [address] , [place], [address], 10/02/2024 08:04:39 10/02/20 24 10/02/2024 COMP METAB OLIC PANEL calcium 9.5 mg/dL 8.5-10 .5 Not Available [facility] ([facility]) [address], [place], [address], 10/02/2024 08:04:39 10/02/20 24 10/02/2024 COMP METAB OLIC PANEL bilirubin total 0.30 mg/dL 0.10-1 .00 Not Available [facility] ([facility]) [address], [place], [address], 10/02/2024 08:04:39 10/02/20 24 10/02/2024 COMP METAB OLIC PANEL AST (SGOT) 40 U/L 0-37 high Not Available [facility] ([facility]) [address], [place], [address], 10/02/2024 08:04:39 10/02/20 24 10/02/2024 COMP METAB OLIC PANEL ALT (SGPT) 78 U/L 0-65 high Not Available [facility] ([facility]) [address], [place], [address], 10/02/2024 08:04:39 10/02/20 24 10/02/2024 COMP METAB OLIC PANEL alk phosphatase 82 U/L 46-116 Not Available [facility] ([facility]) [address], [place], [address], 10/02/2024 08:04:39 10/02/20 24 10/02/2024 PT (PROT HROMB IN TIME) W INR prothrombin time 10.1 secon ds 9.3-11 .4 Not Available [facility] ([facility]) [address] [place], [address], 10/02/2024 08:08:50 10/02/20 24 10/02/2024 PT (PROT HROMB IN TIME) W INR INR 1.0 ratio 0.97-1 .05 INR is inten ded to be used ONLY for patie nts on stabl e oral antic oagul ant thera py. Thera peuti c Range s: 2.0-3 .0 Usual Thera peuti c Range 2.5-3 .5 For patie nts with histo ry of Multi ple Deep Vein Throm bus or Mecha nical Heart Valve s Not Available [facility] ([facility]) [address] [facility], [place], [address], 10/02/2024 08:08:50 10/02/20 24 10/03/2024 ACUTE HEPAT ITIS PANEL hep A Ab, IgM Negati ve negati ve A negat liliam anti- HAV IgM resul t sugge sts no recen t or curre nt HAV infec tion. Not Available [facility] ([facility]) [address] [facility], [place], [address], 10/03/2024 06:16:59 10/02/20 24 10/03/2024 ACUTE HEPAT ITIS PANEL HBsAg screen Negati ve negati ve Not Available [facility] ([facility]) [address] [facility], [place], [address], 10/03/2024 06:16:59 10/02/20 24 10/03/2024 ACUTE HEPAT ITIS PANEL hep B core Ab, IgM Negati ve negati ve Not Available [facility] ([facility]) [address] [facility], [place], [address], 10/03/2024 06:16:59 10/02/20 24 10/03/2024 ACUTE HEPAT ITIS PANEL HCV Ab Non Reacti ve non reacti ve Perfo rmed at: - [facility] [address] [place] [address], [place] [id number] [facility] Direc tor: Luis copeland PhD, Phone : [phone] Not Available [facility] ([facility]) [address] [place], [address], 10/03/2024 06:16:59 10/02/20 24 10/03/2024 ACUTE HEPAT ITIS PANEL hep A Ab, IgM Negati ve negati ve A negat liliam anti- HAV IgM resul t sugge sts no recen t or curre nt HAV infec tion. Not Available [facility] ([facility]) [address] [facility], [place], [address], 10/03/2024 06:17:00 10/02/20 24 10/03/2024 ACUTE HEPAT ITIS PANEL HBsAg screen Negati ve negati ve Not Available [facility] ([facility]) [address] [facility], [place], [address], 10/03/2024 06:17:00 10/02/20 24 10/03/2024 ACUTE HEPAT ITIS PANEL hep B core Ab, IgM Negati ve negati ve Not Available [facility] ([facility]) [address] [facility], [place], [address], 10/03/2024 06:17:00 10/02/20 24 10/03/2024 ACUTE HEPAT ITIS PANEL HCV Ab Non Reacti ve non reacti ve [facility]: [facility] [address] [facility], [place] [address] Lab Direc tor: Luis copeland PhD, Phone : [phone] Not Available [facility] ([facility]) [address] [facility], [place], [address], 10/03/2024 06:17:00 10/02/20 24 10/03/2024 ACUTE HEPAT ITIS PANEL interpretati on: Commen t . Not infec jelena with HCV unles s early or acute infec tion is suspe cted (whic h may be delay ed in an immun ocomp romis ed indiv idual ), or other evide nce exist s to indic ate HCV infec tion. [facility] [address] [facility], [place], [place] [address] 7130 Lab Direc tor: Luis copeland PhD, Phone : [phone] Not Available [facility] [address] [facility], [place], [address], 10/03/2024 06:17:00 10/02/20 24 10/03/2024 ARNAV W/REF LEEANN IF POSIT LILIAM antinuclear Ab, direct NEGATI VE negati ve Perfo rmed at: [facility] n [address] [facility], [place], [place] [id number] 2128 Lab Direc tor: Luis copeland PhD, Phone : [phone] Not Available [facility] [address] [facility], [place], [address], 10/03/2024 13:13:40 10/02/20 24 10/03/2024 MITOC HONDR IAL ANTIB ODIES mitochondria l (M2) Ab <20.0 units 0.0-20 .0 Negat liliam 0.0 - 20.0 Equiv ocal 20.1 - 24.9 Posit liliam >24.9 . Mitoc hondr ial (M2) Antib odies are found in 90-96 % of patie nts with prima ry bilia ry cirrh osis. Perfo rmed at: [facility] n [address] [facility], [place], [place] [id number] 6709 Lab Direc tor: Luis copeland PhD, Phone : [phone] Not Available [facility] [address] [facility], [place], [address], 10/03/2024 15:14:30 10/02/20 24 10/03/2024 IGG IgG 201 mg/dL 586-16 02 low Resul t confi rmed on matt ntrat ion. Perfo rmed at: [facility] n [address] [place], [place] [id number] 9516 Lab Direc tor: Luis copeland PhD, Phone : [phone] Not Available [facility] [address] [facility], [place], [address], 10/03/2024 15:14:32 10/02/20 24 10/03/2024 ACTIN (SMOO TH MUSCL E) AB actin (smooth muscle) Ab 1 units 0-19 Negat liliam 0 - 19 Weak posit liliam 20 - 30 Moder ate to stron g posit liliam >30 . Actin Antib odies are found in 52-85 % of patie nts with autoi mmune hepat itis or chron ic activ e hepat itis and in 22% of patie nts with prima ry bilia ry cirrh osis. Perfo rmed at: [facility] [address] [place] [address] 1269 Lab Direc tor: Luis copeland PhD, Phone : [phone] Not Available [facility] [address] , [place], [address], 10/03/2024 15:14:34 10/02/20 24 10/05/2024 BAUTISTA FIBRO SURE PLUS alpha 2-macroglobu jericho, qn 563 mg/dL 110-27 6 high Not Available [facility] [address] [facility], [place], [address], 10/05/2024 06:16:12 10/02/20 24 10/05/2024 BAUTISTA FIBRO SURE PLUS haptoglobin 166 mg/dL 33-346 Not Available [facility] [address] , [place], [address], 10/05/2024 06:16:12 10/02/20 24 10/05/2024 BAUTISTA FIBRO SURE PLUS apolipoprote in A-1 190 mg/dL 116-20 9 Not Available [facility] [address] [place], [address], 10/05/2024 06:16:12 10/02/20 24 10/05/2024 BAUTISTA FIBRO SURE PLUS bilirubin, total 0.2 mg/dL 0.0-1. 2 Not Available [facility] [address] [place], [address], 10/05/2024 06:16:12 10/02/20 24 10/05/2024 BAUTISTA FIBRO SURE PLUS GGT 22 IU/L 0-60 Not Available [facility] [address] [place], [address], 10/05/2024 06:16:12 10/02/20 24 10/05/2024 BAUTISTA FIBRO SURE PLUS ALT (SGPT) p5p 69 IU/L 0-40 high Not Available [facility] [address] [place], [address], 10/05/2024 06:16:12 10/02/20 24 10/05/2024 BAUTISTA FIBRO SURE PLUS AST (SGOT) p5p 48 IU/L 0-40 high Not Available [facility] [address] [place], [address], 10/05/2024 06:16:12 10/02/20 24 10/05/2024 BAUTISTA FIBRO SURE PLUS cholesterol, total 138 mg/dL 100-19 9 Not Available [facility] [address] [place], [address], 10/05/2024 06:16:12 10/02/20 24 10/05/2024 BAUTISTA FIBRO SURE PLUS glucose, serum 156 mg/dL 70-99 high Not Available [facility] [address] [place], [address], 10/05/2024 06:16:12 10/02/20 24 10/05/2024 BAUTISTA FIBRO SURE PLUS triglyceride s 229 mg/dL 0-149 high Not Available [facility] [address] [place], [address], 10/05/2024 06:16:12 10/02/20 24 10/05/2024 BAUTISTA FIBRO SURE PLUS fibrosis scoring: Commen t . <=0.2 1 = Stage F0 - No fibro sis 0.21 - 0.27 = Stage F0 - F1 0.27 - 0.31 = Stage F1 - Dianna l fibro sis 0.31 - 0.48 = Stage F1 - F2 0.48 - 0.58 = Stage F2 - Bridg ing fibro sis with few septa 0.58 - 0.72 = Stage F3 - Bridg ing fibro sis with many septa 0.72 - 0.74 = Stage F3 - F4 >0.74 = Stage F4 - Cirrh osis Not Available [facility] [address] [place], [address], 10/05/2024 06:16:12 10/02/20 24 10/05/2024 BAUTISTA FIBRO SURE PLUS fibrosis stage F1-F2 Not Available [facility] [address] [place], [address], 10/05/2024 06:16:12 10/02/20 24 10/05/2024 BAUTISTA FIBRO SURE PLUS fibrosis score 0.32 0.00-0 .21 high Not Available [facility] [address] [place], [address], 10/05/2024 06:16:12 10/02/20 24 10/05/2024 BAUTISTA FIBRO SURE PLUS steatosis score 0.49 0.00-0 .40 high Not Available [facility] [address] [place], [address], 10/05/2024 06:16:12 10/02/20 24 10/05/2024 BAUTISTA FIBRO SURE PLUS steatosis grade Commen t S1 - Mild Steat osis (But Clini filomena Signi fican t) (5- 33%) Not Available [facility] [address] [place], [address], 10/05/2024 06:16:12 10/02/20 24 10/05/2024 BAUTISTA FIBRO SURE PLUS steatosis scoring Commen t . <=0.4 0 = S0 - No Steat osis (<5%) 0.40 - 0.55 = S1 - Mild Steat osis (but Clini filomena Signi fican t) (5-33 %) >0.55 = S2S3- Moder ate to Sever e Steat osis (Clin icall y Signi fican t) (34-1 00%) Not Available [facility] [address], [place], [address], 10/05/2024 06:16:12 10/02/20 24 10/05/2024 BAUTISTA FIBRO SURE PLUS bautista scoring Commen t . <=0.2 5 = N0 - No BAUTISTA/ MASH 0.25 - 0.50 = N1 - Mild BAUTISTA/ MASH 0.50 - 0.75 = N2 - Moder ate BAUTISTA/ MASH >0.75 = N3 - Sever e BAUTISTA/ MASH Not Available [facility] [address], [place], [address], 10/05/2024 06:16:12 10/02/20 24 10/05/2024 BAUTISTA FIBRO SURE PLUS bautista grade Commen t N3 - Sever e BAUTISTA Not Available [facility] [address], [place], [address], 10/05/2024 06:16:12 10/02/20 24 10/05/2024 BAUTISTA FIBRO SURE PLUS bautista score 0.82 0.00-0 .25 high Not Available [facility] [address], [place], [address], 10/05/2024 06:16:12 10/02/20 24 10/05/2024 BAUTISTA FIBRO SURE PLUS limitations Commen t . BAUTISTA Fibro Sure( R) Plus is recom arlene d for patie nts with suspe cted non-a lcoho lic fatty liver disea se, now known as Metab olic Dysfu nctio n-Ass ociat ed Steat otic Liver Disea se or MASLD . It is not recom arlene d for patie nts with other liver disea ses. It is also not recom arlene d in patie nts with Gilbe rt Disea se, acute hemol ysis, acute viral hepat itis, drug induc ed hepat itis, shalom ic liver disea se, autoi mmune hepat itis and/o r extra -hepa tic tea stasi s. Any of these clini ugo situa tions may lead to inacc urate quant itati ve predi ction s of fibro sis. Not Available [facility] [address], [place], [address], 10/05/2024 06:16:12 10/02/20 24 10/05/2024 BAUTISTA FIBRO SURE PLUS methodology: Commen t . The jerel mello teste d are perfo rmed by Fibro Sure- Speci fic metho ds. Not inten ded for use with other diagn ostic consi derat ions. Not Available [facility] [address], [place], [address], 10/05/2024 06:16:12 10/02/20 24 10/05/2024 BAUTISTA FIBRO SURE PLUS interpretati on: Commen t . Quant itati ve resul ts of 10 bioch emica ls in combi natio n with age and gende r, are jerel zed using a compu tatio nal algor ithm to provi de a quant itati ve surro gate marke r (0.0- 1.0) of liver fibro sis ([place] vir F0-F4 ), hepat ic steat osis (0.0- 1.0, S0-S3 ), and Non-A lcoho lic Steat o-Hep atiti s (BAUTISTA ) (0.0- 1.0, N0-N3 ), now known as Metab olic Dysfu nctio n-Ass ociat ed Steat ohepa titis (MASH ). The absen ce of steat osis (S<0. 40) precl udes the diagn osis of BAUTISTA/ MASH. Fibro sis marke r: In a study of 171 Non- Alcoh olic Fatty Liver Disea se (NAFL D), now known as Metab olic Dysfu nctio n-Ass ociat ed Steat otic Liver Disea se (MASL D), patie nts where 23% had signi fican t NAFLD /MASL D fibro sis ([place] vir F2-F4 ) and 11% had cirrh osis by liver biops y, a fibro sis resul t of >0.3 yield ed a sensi tivit y of 83% and a speci ficit y of 78% for the detec tion of signi fican t fibro sis. 1 Steat osis marke r: In a popul ation of 2997 patie nts, where 61% had signi fican t steat osis (>=5% ) on a liver biops y, a steat osis score >0.4 had a sensi tivit y of 79% and a speci ficit y of 50% for ident ifica tion of signi fican t steat osis. 2 BAUTISTA/ MASH marke r: In a popul ation of 1081 NAFLD /MASL D patie nts, where 51% had at least some BAUTISTA/ MASH by liver biops y, a predi ction of BAUTISTA/ MASH had a sensi tivit y of 72% for ident ifyin g BAUTISTA/ MASH and a speci ficit y of 71%. 3 Not Available [facility] [address], [place], [address], 10/05/2024 06:16:12 10/02/20 24 10/05/2024 BAUTISTA FIBRO SURE PLUS comment: Commen t . This test was devel oped and its perfo rmanc e natty cteri stics deter mined by [employer] . It has not been clear ed or appro mellissa by the Food and Drug Admin istra tion. . For quest ions regar ding this repor t pleas e conta ct custo geraldine servi ce at [phone]. . Refer ences : . 1. Bev toscano V. et al. Diagn ostic Value of Bioch emica l Marke rs (Fibr oTest ) for the predi ction of Liver Fibro sis in patie nts with Non-A lcoho lic Fatty Liver Disea se. [facility]ast[facility] rolog y 2006 ; 6:6. 2. Rebecca Franco et al. The Diagn ostic Perfo rmanc e of a Simpl i fied Blood Test (Cali Granger t-2) for the Predi ction of Liver Steat o sis. Eur J Gastr oente rol Hepat ol. 2019; 31:39 3-402 . 3. Rebecca sorensen T. et al. Diagn ostic perfo rmanc e of a new nonin v asive test for nonal cohol ic steat ohepa titis using a simpl ified his tolog ical refer ence. Eur J Gastr oente rol Hepat ol. 2017; 30:56 9-577 . Perfo rmed at: [facility] [place] [address] [facility] , [place] [address] 0911 Lab Direc tor: Mita cooper MD, Phone : [phone] Not Available [facility] [address] [facility], [place], [address], 10/05/2024 06:16:12 10/02/20 24 10/07/2024 HERED ITARY HEMOC HROMA TOSIS hereditary hemochromati osis Commen t Resul ts: c.845 G>A (p.Cy s282T yr) - Not Detec jelena c.187 C>G (p.Hi s63As p) - Detec jelena, heter ozygo us c.193 A>T (p.Se r65Cy s) - Not Detec jelena Not assoc iated with incre ased risk to devel op clini ugo sympt oms of Hered itary Hemoc hroma tosis . In sympt omati c indiv idual s, other cause s of iron overl oad shoul d be evalu ated. See Addit ional Infor matio n and Comme nts. . Addit ional Clini ugo Infor matio n: Hered itary hemoc hroma tosis (HFE relat ed) is an autos omal reces sive iron stora ge disor jelly. Patie nts may have a shalom ic diagn osis of hered itary hemoc hroma tosis and never show clini ugo sympt oms. Clini ugo sympt oms typic ally angeea r betwe en 40 to 60 years in males and after menop ause in femal es. Signs and sympt oms may inclu de organ damag e, prima rily in the liver , risk for hepat ocell ular carci noma, diabe mello, and heart disea se due to iron accum ulati on. Life expec tancy may be decre ased in indiv idual s who devel op cirrh osis. Treat ment for clini filomena sympt omati c indiv idual s may inclu de thera peuti c phleb otomy . Liver trans plant may be used to treat end stage liver failu re. For preve ntive care, monit oring for iron overl oad is recom arlene d for patie nts who are homoz ygous for c.845 G>A (p.Cy s282T yr) and have yet to exper ience clini ugo sympt oms. . Comme nts: The most commo n HFE varia nts assoc iated with hered itary hemoc hroma tosis are c.845 G>A (p.Cy s282T yr), c.187 C>G (p.Hi s63As p), c.193 A>T (p.Se r65Cy s). While patie nts homoz ygous for c.845 G>A (p.Cy s282T yr) are the most likel y to prese nt clini ugo sympt oms, less than 10% devel op clini filomena signi fican t iron overl oad with tissu e and organ damag e. . Shalom ic couns eling is recom arlene d to discu ss the poten tial clini ugo impli catio ns of posit liliam resul ts, as well as recom menda tions for testi ng famil y membe rs. Shalom ic Coord inato rs are avail able for healt h care provi ders to discu ss resul ts at [phone] . Test Detai ls: Three varia nts jerel zed: c.845 G>A (p.Cy s282T yr), commo nly refer red to as C282Y c.187 C>G (p.Hi s63As p), commo nly refer red to as H63D c.193 A>T (p.Se r65Cy s), commo nly refer red to as S65C . Metho ds/Li mitat ions: DNA Jerel sis of the HFE gene (NM_[id number] .[id number]) was perfo rmed by PCR ampli ficat ion follo wed by restr ictio n enzym e diges tion jerel ses. Resul ts must be combi rashaad with clini ugo infor matio n for the most accur ate inter preta tion. Molec ular- based testi ng is highl y accur ate, but as in any labor atory test, diagn ostic error s may occur . False posit liliam or false negat liliam resul ts may occur for reaso ns that inclu de shalom ic varia nts, blood trans fusio ns, bone marro w trans plant ation , somat ic or tissu e-spe cific mosai cism, misla beled sampl es, or jose angel eous repre senta tion of famil y relat ionsh ips. This test was devel oped and its perfo rmanc e natty cteri stics deter mined by [facility] rp. It has not been clear ed or appro mellissa by the Food and Drug Admin istra tion. . Refer ences : Griffin BR, Avery PC, Chance ey [place], Kellen lehman LW, Vanessa lehman ; [facility]elita[facility] can Assoc iatio n for the Study of Liver Disea ses. Diagn osis and manag ement of hemoc hroma tosis : 2010 pract ice guide line by the Ameri can Assoc iatio n for the Study of Liver Disea ses. Hepat ology . 2010;5 4(1): 328-4 3. doi: 10.10 02/he p.243 30. PMID: 70001 290; PMCID : PMC31 64649 . Cosmo G, Huey lowe P, Flores felix DW, Chacorta r H, Hesham stoll O, Jaja n S, Natalia o I, Jb s M, Heike y S. EMQN best pract ice guide lines for the molec ular shalom ic diagn osis of hered itary hemoc hroma tosis (HH). Eur J Hum Sh[place]om . 2016 Feb;2 4(4): 479-9 5. doi: 10.10 38/ej hg.20 15.12 8. Epub 2014May 20. PMID: 78037 218; PMCID : PMC49 36467 . Not Available [facility] [address], [place], [address], 10/07/2024 17:10:09 10/02/20 24 10/07/2024 HERED ITARY HEMOC HROMA TOSIS reviewed by: Alberto kumar Techn ical [place] perfo rmed at [facility]P Profe génesison al [place] perfo rmed by: . Labor atory Corpo ratio n of Linnea barragan, Ph.D. , [facility] Dire tor, Molec ular [facility] ics [address] [place] [address] Perfo rmed at: [facility] [address] [facility] , [place] [address] 0150 Lab Dire tor: Anjana Okeefe [facility] , Phone : [phone] Not Available [facility] [address], [place], [address], 10/07/2024 17:10:09 10/02/20 24 10/16/2024 A1A DEFIC ENCY PROFI LE aat, DNA analysis Alberto kumar Resul t: c.109 6 G>A (p.Gl u366L ys), Z allel e - Not detec jelena c.863 A>T (p.Gl u288V al), S allel e - Not detec jelena Not assoc iated with incre ased risk of devel oping clini filomena relev ant sympt oms of alpha -1 antit rypsi n defic iency . See Addit ional Clini ugo Infor dianna n and Clif nts. Not Available [facility] [address], [place], [address], 10/16/2024 17:10:10 10/02/20 24 10/16/2024 A1A DEFIC ENCY PROFI LE additional information: Commen t . Addit ional Clini ugo Infor matio n: Alpha -1 antit rypsi n defic iency is an autos omal reces sive metab olic disor jelly with varia ble sever ity and age at onset . Signs and sympt oms may inclu de incre ased risk for chron ic obstr uctiv e lung disea se that typic ally manif ests after age 30, liver disea se, and liver cance r. Liver disea se can be prese nt in infan cy as neona jersey tea stasi s (natalya dice) or in adult garcia as cirrh osis and fibro sis. Lung and liver disea se may be accel erate d by envir onmen jersey expos ures such as smoki ng and exces sive alcoh ol use. Estab lishe d treat ments for COPD and emphy sema are used to treat lung disea se; lung and/o r liver trans plant ation may be an optio n for those with with sever e disea se. Intra venou s augme ntati on thera py may be avail able for patie nts who meet crite keli. . Comme nts: The ZZ and SZ genot ypes accou nt for more than 95% of indiv idual s with sever e alpha -1 antit rypsi n defic iency . To rule out other varia nts, furth er testi ng of sympt omati c indiv idual s heter ozygo us for one varia nt (S or Z) or with negat liliam resul ts may inclu de pheno typin g (PI typin g), AAT level testi ng, and/o r expan ded genot yping . . Shalom ic couns eling is recom arlene d to discu ss the poten tial clini ugo impli catio ns of posit liliam resul ts, as well as recom menda tions for testi ng famil y membe rs. Shalom ic Coord inato rs are avail able for healt h care provi ders to discu ss resul ts at [phone] . Test Detai ls: Two varia nts jerel zed: c.109 6 G>A (p.Gl u366L ys), commo nly refer red to as the Z allel e or PI*Z c.863 A>T (p.Gl u288V al), commo nly refer red to as the S allel e or PI*S . Metho ds/Li mitat ions: DNA jerel sis of the S and Z allel es in the SERPI NA1 gene ([id number]) was perfo rmed by multi plex allel e-spe cific PCR ampli ficat ion follo wed by gel elect ropho resis . Resul ts must be combi rashaad with clini ugo infor matio n for the most accur ate inter preta tion. Molec ular- based testi ng is highl y accur ate, but as in any labor atory test, rare diagn ostic error s may occur . False posit liliam or false negat liliam resul ts may occur for reaso ns that inclu de shalom ic varia nts, blood trans fusio ns, bone marro w trans plant ation , somat ic or tissu e-spe cific mosai cism, misla beled sampl es, or jose angel eous repre senta tion of famil y relat ionsh ips. . This test was devel oped and its perfo rmanc e natty cteri stics deter mined by [facility]. It has not been clear ed or appro mellissa by the Food and Drug Admin istra tion. . Refer ences : Chelsea maynard RA, Evangelist o G, Abelardo douglas ML, Guilherme s M, Chong CE, Elian connor K, Chalino medina DK, Tony t SL, Tracy COKER, Tony NIEVES, Michela Rodriguez, Emerita Bo. The Diagn osis and Manag ement of Alpha -1 Antit rypsi n Defic iency in the Adult . Chron ic Obstr Pulm Dis. 2016 Apr 18;3(3 ):668 -682. doi: 10.15 326/j copdf .3.32014. 0182. PMID: 23233 891; PMCID : PMC55 63652 . Tony NIEVES, Siddhartha estrada V, Prosper ZAPATA. Alpha -1 Antit rypsi n Defic iency . 2005Sep 08 Updat ed 2019April 02 . In: Elgin MP, Uziel cuellar HH, Ariella RA, et al., derek rs. GeneR niko segura(R) Inter net . Aure andrews ([place]): [facility] [place]; 1992- 2020. Avail able from: https ://ww w.ncb i.nlm .nih. gov/b ooks/ NBK15 19/ Not Available [facility] [address] [facility], [place], [address], 10/16/2024 17:10:10 10/02/20 24 10/16/2024 A1A DEFIC ENCY PROFI LE electronical ly signed by: Alberto Hadley , PhD [facility] Not Available [facility] [address] [facility], [place], [address], 10/16/2024 17:10:10 10/02/20 24 10/16/2024 A1A DEFIC ENCY PROFI LE a1a rfx to phenotype Not Indica jelena Perfo rmed at: [facility] [address] [facility] , [place] [address]31 Lab Direc tor: Mita cooper MD, Phone : [phone] Perfo rmed at: TG - [facility] RTP [address] [facility] , [place] [address] 0150 Lab Direc tor: Anjana Okeefe [facility] , Phone : [phone] Not Available [facility] [address] [facility], [place], [address], 10/16/2024 17:10:10 10/02/20 24 10/16/2024 A1A DEFIC ENCY PROFI LE [id number] trypsin,seru m 152 mg/dL 101-18 7 Not Available [facility] [address] [facility], [place], [address], 10/16/2024 17:10:10 10/14/20 24 10/14/2024 [facility] [address] [place] [address] Phone: Fax: Name: ZEHRA ESPINO Exam Date: : 1964 Age 58 years Gender : F Access ion: [id number] Physic judith: CASBRYCE [place] Facili ty: [facility] Facili ty HSV: Outpat ient Exam: LIVER ULTRAS OUND Proced ure: US LIVER Exam Date: 9:08 AM BLOCKLAYER Indica tion: elevat ed levels Compar gerri: Right upper quadra nt ultras ound from 2011 Techni que: Multip le longit udinal and transv erse sonogr aphic images of the liver were obtain ed. Dopple r was applie d as indica jelena. FINDIN GS: Liver: The liver demons trates increa sed echoge nicity . 18.1 cm in length . 1.4 x 1.1 x 1.9 cm cluste r of cysts versus septat ed cyst in the left hepati c lobe. Portal vein: Patent with hepato pedal flow. Biliar y Tree: The common bile duct measur es 0.63 cm in diamet er. There is no biliar y ductal dilata tion. Gallbl adder: Cholec ystect justice. Pancre as: The head and proxim al body of the pancre as are within normal limits . The distal pancre as is not visual ized due to bowel gas. Ascite s: No free fluid is demons trated . Kidney s: The right kidney measur es 11.8 cm in length . No hydron ephros is. IMPRES FARAZ: 1.Mild hepato spleno megaly . 2.Echo genic liver likely reflec ting steato sis. Other forms of liver diseas e such as steato hepati tis, early cirrho sis or fibros is are not exclud ed by ultras ound. 3.A 1.9 cm cluste r of cysts versus septat ed cyst in the left hepati c lobe. Recomm end furthe r evalua tion with CT or MRI liver mass protoc ol for better charac teriza tion. Electr onical ly signed by:Denys connor MD0 12/2023 11:55 AM EST RP Workst ation: [id number] Dictat ed By: Cristine Monroy Transc ribed By: Transc ribed On: 10:08 AM Electr onical ly signed by: Cristine Monroy Thank you for referr ZEHRA [place] to [facility]. Legall y authen ticate d by MELISSA LAINEZ 2023-11 10:08: 00 CC'ed Logic: Orderi ng Provid er: CAS AVERY Attend ing Provid er: CAS AVERY Admitt ing Provid er: CAS AVERY [facility] [address] [place] [address], [address], 10/30/2024 16:06:24 11/27/19 25 11/27/2024 MRI, abdom en, w/o contr ast [facility] [address] [place] [address] Phone: Fax: Name: ZEHRA ESPINO Exam Date: : 1964 Age 59 years Gender : F Access ion: [id number] Physic judith: BRYCE CARDOZO Facili ty: [facility] Facili ty HSV: Outpat ient Exam: MRI ABD W/O MR ABDOME N WITHOU T IV CONTRA ST, 025 8:59 AM BLOCKLAYER INDICA TION: diseas e of liver COMPAR GERRI: Prior liver ultras ound Decemb er 2023 TECHNI QUE: Multip lanar, multis equenc e MRI abdome n withou t contra st. FINDIN GS: 1 cm septat ed left hepati c cyst is best seen on masterson l series 3 image 19 as well as axial series 4 image 12. No solid compon ent is detect ed on this noncon trast exam. Overal l no suspic ious featur es are seen. Diffus e fatty infilt ration of the liver is noted. The liver is otherw ise unrema rkable . The common bile duct is normal in calibe r. The gallbl adder is surgic ally absent . Lung bases are clear. The spleen , pancre as, adrena l glands , and kidney s are unrema rkable . IMPRES FARAZ: 1.1 cm septat ed left hepati c cyst withou t suspic ious featur es. This corres ponds to the ultras ound larsin g. 2.Diff use fatty infilt ration of the liver. Electr onical ly signed by:Chris segura MD/03/2025 11:46 AM EST RP Workst ation: [id number] Dictat ed By: Kunal Kinney Transc ribed By: Transc ribed On: 025 9:59 AM Electr onical ly signed by: Kunal Kinney 025 [facility] y authen ticate d by TEMO CRAWFORD 11-27 09:59: 00 CC'ed Logic: Orderi ng Provid er: CAS AVERY Attend ing Provid er: CAS AVERY Referr ing Provid er: CAS AVERY Admitt ing Provid er: CAS AVERY [email or web address] [facility] [address] [facility], [place], [address], 12/09/2024 15:47:04 Result Notes None recorded. Procedures Surgical History Date Name Laterality Status Provider Name and Address Organization Details Recorded Time section completed Nigel JEAN [facility] [place] 11/28/2022 11:28:22 Knee Surgery completed Nigel JEAN [facility] [place] 11/28/2022 11:28:38 tonsilectomy/adenoi ds completed Nigel JEAN [facility] [place] 11/28/2022 11:28:50 thumb surgery completed Nigel JEAN [facility] [place] 11/28/2022 11:29:21 repair of shoulder completed Nigel JEAN [facility] [place] 11/28/2022 11:29:15 procedure on foot completed Nigel JEAN [facility] [place] 11/28/2022 11:29:29 Knee Surgery completed Nigel JEAN [facility] [place] 11/28/2022 11:29:42 cholecystectomy completed Nigel Marie [facility] [place] 01/02/2023 08:59:30 Imaging Results Imaging Date Name Status LastModified by Organiz ation Details LastModified Time 10/14/2024 US, liver completed [facility] [address] [facility], [place], [address], 10/30/2024 16:06:24 11/27/2024 MRI, abdomen, w/o contrast completed [address] - Physical Therapy [address] [facility], [place], [address], 12/09/2024 15:47:04 Procedure Notes None recorded. Medical Equipment None Reported. Allergies Allergen ID Allergen Name Allergen Category Reaction Reaction Severity Criticality Documentation Date Start Date Code Code System Note Provider Name and Address Organization Details Recorded Time 83805 lisinopri l medicatio n Not available Not available Not available 10/26/2022 53623 RxNorm Analupe estrada ARIANE Marie [facility] [place] 15:20:06 Medications Name Sig Start Date Stop Date Status Note LastModified by Organization Details LastModified Time celecoxib 200 mg capsule Take by oral route for 5 days. 01/02 completed Not Available Not Available Not Available cyclobenzap rine 10 mg tablet TAKE 1 TABLET BY MOUTH ONCE DAILY AT BEDTIME NEEDED 10/01 completed Not Available Not Available Not Available prednisone 10 mg tablet 11/28 completed Not Available Not Available Not Available azithromyci n 250 mg tablet TAKE 2 TABLETS BY MOUTH ON DAY 1, AND THEN TAKE 1 TABLET BY MOUTH ONCE A DAY ON DAY 2 THROUGH DAY 5 10/01 completed Not Available Not Available Not Available hydrocodone 5 mg-acetamin ophen 325 mg tablet TAKE 1 TO 2 TABLETS BY MOUTH EVERY 6 HOURS NEEDED FOR PAIN 10/01 completed Not Available Not Available Not Available minocycline 100 mg capsule TAKE 1 CAPSULE BY MOUTH TWICE DAILY FOR 7 DAYS 11/28 completed Not Available Not Available Not Available meloxicam 15 mg tablet 10/01 completed Not Available Not Available Not Available Children's Aspirin 81 mg chewable tablet CHEW AND SWALLOW 1 TABLET BY MOUTH ONCE DAILY 10/01 completed Not Available Not Available Not Available gabapentin 400 mg capsule TAKE 1 CAPSULE BY MOUTH THREE TIMES DAILY active Not Available Not Available No t Available clopidogrel 75 mg tablet TAKE 1 TABLET BY MOUTH ONCE DAILY active Not Available Not Available No t Available valacyclovi r 500 mg tablet TAKE 1 TABLET BY MOUTH ONCE DAILY active Not Available Not Available No t Available lovastatin 10 mg tablet TAKE 1 TABLET BY MOUTH ONCE DAILY FOR CHOLESTER OL 10/01 completed Not Available Not Available Not Available aspirin 81 mg tablet,marquise yed release TAKE 1 TABLET BY MOUTH ONCE DAILY active Not Available Not Available No t Available tramadol 50 mg tablet TAKE 1 TABLET BY MOUTH TWICE DAILY FOR 3 DAYS 10/01 completed Not Available Not Available Not Available triamcinolo ne acetonide 0.1 % topical cream APPLY CREAM EXTERNALL Y TO AFFECTED AREA TWICE DAILY FOR 1 MONTH active Not Available Not Available No t Available bisoprolol fumarate 5 mg tablet TAKE 1 TABLET BY MOUTH ONCE DAILY active Not Available Not Available No t Available cefadroxil 500 mg capsule 10/01 completed Not Available Not Available Not Available ciclopirox 8 % topical solution APPLY TO AFFECTED NAIL TWICE DAILY 10/01 completed Not Available Not Available Not Available meloxicam 7.5 mg tablet 11/28 completed Not Available Not Available Not Available oxycodone-a cetaminophe n 5 mg-325 mg tablet TAKE 1 TABLET BY MOUTH EVERY 6 HOURS NEEDED 10/01 completed Not Available Not Available Not Available famotidine 20 mg tablet TAKE 1 TABLET BY MOUTH ONCE DAILY 10/01 completed Not Available Not Available Not Available linezolid 600 mg tablet TAKE 1 TABLET BY MOUTH TWICE DAILY FOR INFECTION FOR 10 DAYS 10/01 completed Not Available Not Available Not Available pantoprazol e 40 mg tablet,marquise yed release TAKE 1 TABLET BY MOUTH ONCE DAILY 10/01 completed Not Available Not Available Not Available losartan 25 mg tablet TAKE 1 TABLET BY MOUTH ONCE DAILY active Not Available Not Available No t Available hydrochloro thiazide 12.5 mg capsule TAKE 1 CAPSULE BY MOUTH ONCE DAILY IN THE MORNING NEEDED 11/28 completed Not Available Not Available Not Available docusate sodium 100 mg capsule 10/01 completed Not Available Not Available Not Available gabapentin 300 mg capsule TAKE 1 CAPSULE BY MOUTH THREE TIMES DAILY NEEDED FOR PAIN 01/02 completed Not Available Not Available Not Available diclofenac sodium 75 mg tablet,marquise yed release Take 1 tablet by mouth twice daily as needed 10/01 completed Not Available Not Available Not Available diclofenac sodium 50 mg tablet,marquise yed release TAKE 1 TABLET BY MOUTH TWICE DAILY NEEDED 10/01 completed Not Available Not Available Not Available clobetasol 0.05 % topical ointment APPLY APPROXIMA TELY 0.5 GRAM TOPICALLY TWICE DAILY FOR 2 WEEKS 10/01 completed Not Available Not Available Not Available lovastatin 20 mg tablet TAKE 1 TABLET BY MOUTH WITH EVENING MEAL 11/28 completed Not Available Not Available Not Available levofloxaci n 750 mg tablet TAKE 1 TABLET BY MOUTH ONCE DAILY FOR 7 DAYS 10/01 completed Not Available Not Available Not Available methylpredn isolone 4 mg tablets in a dose pack 10/01 completed Not Available Not Available Not Available fluticasone propionate 50 mcg/actuati on nasal spray,suspe nsion USE 1 SPRAY(S) IN EACH NOSTRIL ONCE DAILY active Not Available Not Available No t Available metformin ER 500 mg tablet,exte nded release 24 hr TAKE 1 TABLET BY MOUTH ONCE DAILY active Not Available Not Available No t Available doxycycline hyclate 100 mg tablet TAKE 1 TABLET BY MOUTH TWICE DAILY FOR 10 DAYS 10/01 completed Not Available Not Available Not Available cyclobenzap rine 5 mg tablet TAKE 1 TABLET BY MOUTH ONCE DAILY NEEDED active Not Available Not Available No t Available rosuvastati n 10 mg tablet TAKE 1 TABLET BY MOUTH ONCE DAILY AT BEDTIME active Not Available Not Available No t Available BD Ultra-Fine Mini Pen Needle 31 gauge x 16 USE DIRECTED WITH LANTUS AND HUMALOG PENS FOUR TIMES DAILY active Not Available Not Available No t Available Lantus Solostar U-100 Insulin 100 unit/mL (3 mL) subcutaneou s pen INJECT 50 UNITS SUBCUTANE OUSLY ONCE DAILY 11/28 completed Not Available Not Available Not Available Humalog AngiePen (U-100) Insulin 100 unit/mL subcutaneou s INJECT 25 UNITS SUBCUTANE OUSLY THREE TIMES DAILY WITH MEALS 11/28 completed Not Available Not Available Not Available tranexamic acid 650 mg tablet 10/01 completed Not Available Not Available Not Available OneTouch Verio test strips USE DIRECTED TO TEST BLOOD SUGAR THREE TIMES DAILY active Not Available Not Available No t Available Jardiance 10 mg tablet TAKE 1 TABLET BY MOUTH ONCE DAILY active Not Available Not Available No t Available Lactobacill us acidophilus 0.5 mg (100 million cell) tablet 10/01 completed Not Available Not Available Not Available Ozempic 0.25 mg or 0.5 mg (2 mg/1.5 mL) subcutaneou s pen injector INJECT 0.25MG SUBCUTANE OUSLY ONCE WEEKLY FOR 4 DOSES, THEN INCREASE TO 0.5MG SUBCUTANE OUSLY ONCE WEEKLY THEREAFTE R 10/01 completed Not Available Not Available Not Available Dexcom G6 Transmitter device USE DIRECTED (CHANGE EVERY 90 DAYS) active Not Available Not Available No t Available Ozempic 1 mg/dose (4 mg/3 mL) subcutaneou s pen injector INJECT 1MG SUBCUTANE OUSLY EVERY WEEK 10/01 completed Not Available Not Available Not Available Semglee (insulin glargine-yf gn) Pen 100 unit/mL (3 mL) subcutaneou s INJECT 50 UNITS SUBCUTANE OUSLY ONCE A DAY FOR 30 DAYS 11/28 completed Not Available Not Available Not Available Ozempic 2 mg/dose (8 mg/3 mL) subcutaneou s pen injector INJECT 2MG SUBCUTANE OUSLY EVERY WEEK active Not Available Not Available No t Available Dexcom G7 Sensor device USE DIRECTED active Not Available Not Available No t Available Vitals Date Recorded Body height Body mass index (BMI) Body weight Heart rate Systolic blood pressure Diastolic blood pressure Provider Name and Address Organization Details Last Updated DateTime 3 175.26 cm 27.4 kg/m2 52578.7 4 g 79 /min 136 mm[Hg] 86 mm[Hg] Nigel THAKKAR - LPNT [facility] [place] 3 11:25:46 Date Recorded Body height Body mass index (BMI) Body weight Heart rate Systolic blood pressure Diastolic blood pressure Provider Name and Address Organization Details Last Updated DateTime 3 175.26 cm 27.1 kg/m2 19554.8 4 g 84 /min 137 mm[Hg] 84 mm[Hg] Nigel THAKKAR - LPNT - [place] [facility] [place] 3 08:58:44 Date Recorded Body weight Oxygen saturation Oxygen saturation in Arterial blood by Pulse oximetry Heart rate Systolic blood pressure Diastolic blood pressure Provider Name and Address Organization Details Last Updated DateTime 4 90402.0 8 g 96 % 96 % 85 /min 111 mm[Hg] 61 mm[Hg] Mary THAKKAR - LPNT [facility] [place] 4 10:14:49 Date Recorded Body weight Heart rate Systolic blood pressure Diastolic blood pressure Provider Name and Address Organization Details Last Updated DateTime 10/26/2022 48167.37 g 81 /min 117 mm[Hg] 71 mm[Hg] Ana THAKKAR - LPNT [facility] [place] 10/26/2022 15:20:45 Social History Question Answer Notes LastModified by Organizat ion Details LastModified Time Tobacco Smoking Status Former Smoker Nigel estrada, ARIANE Marie LPNT [facility] [place] 11/28/2022 11:28:10 What Is Your Level Of Alcohol Consumption? None [email or web address] Information not available 10/01/2024 What Is Your Level Of Caffeine Consumption? Moderate Information not available 10/01/2024 Do You Use Any Illicit Or Recreational Drugs? No [email or web address] Information not available 10/01/2024 Sex: Unknown Functional Status None recorded. Mental Status None recorded. Family History Relationship Description Onset Age of this Age Resolved Age Notes LastModified by Organization Details LastModified Time Father Myocardial infarction pt. added direct ly (11/28) [email or web address] Not available 11/28/2022 10:34:48 Brother Myocardial infarction pt. added direct ly (11/28) [email or web address] Not available 11/28/2022 10:34:48 Paternal Uncle Myocardial infarction pt. added direct ly (11/28) [email or web address] Not available 11/28/2022 10:34:48 Paternal Aunt Myocardial infarction pt. added direct ly (11/28) [email or web address] Not available 11/28/2022 10:34:48 Mother Cerebrovascu lar accident pt. added direct ly (11/28) [email or web address] Not available 11/28/2022 10:35:20 Medical History Condition Response Coronary Artery Disease N Gout N Kidney Stones N Hyperthyroidism N Hypothyroidism N Depression N COPD N Osteoporosis/Osteopenia N Diverticulitis/Diverticulosis N Colon Polyps Y Diabetes Y Anxiety Disorder N Bleeding Disorder N Arthritis Y Seizures/Epilepsy N Tuberculosis N Hyperlipidemia Y Cancer Y Stroke N Asthma N Sleep Apnea Y GERD/Reflux N Hepatitis N Liver Disease N Cirrhosis N Heart Disease Y Hypertension N Kidney Disease N Gynecological HistoryNo gynecological history recorded. Obstetrics History GPAL:G 0 P 0 0 0 0 Past Encounters Encounter ID Performer Location Encounter Start Date Encounter Closed Date Diagnosis/Indication Diagnosis SNOMED-CT Code Diagnosis ICD10 Code Diagnosis Note [id number] Johnna Karimi NP [facility] [address] [facility] [address] [place] [address] 10/26/2022 15:08:20 10/26/2022 16:09:30 Steatosis of liver 134356579 K76.0 - believes PCP checked hepatitis- A and B status, will follow-up and let us know - Avoid NSAIDs and alcohol. - Do not take over 2 g of acetaminop hen daily. - Discussed weight loss and healthy diet.- liver ultrasound done 10/07/2022 , repeat in 6 months- will check labs at next office visit Liver cyst 71619730 K76. 89 - 1.5 cm hepatic cyst- discussed with patient since cyst is less than 4 cm there is no further recommenda tion for additional follow-up Cholelithi asis without obstruction 09490167 K80.20 - Referral placed to Dr. Funk [id number] Antwan Funk MD [facility] [address] [facility] [address] [place] [address] 11/28/2022 10:44:00 11/28/2022 13:50:53 Cholelithiasis without obstruction 71927895 K80.20 [id number] Antwan Funk MD [facility] [address] [facility] [address] [place] [address] 01/02/2023 08:47:14 01/02/2023 09:08:51 Chronic cholecystitis without calculus 14181538 K81.1 [id number] VANESSA CARDOZO NP [facility] [address] [facility] [place] [address] [place] [address] 10/01/2024 09:59:56 10/01/2024 10:56:25 Liver enzymes level above reference range 574141890 R74.01 Screening for malignant neoplasm of colon 874999881 Z12.11 Health Concerns Section Related Observation LastModified by Organization Detai ls LastModified Time None Recorded Concern Status LastModified by Organization Details LastModified Time None Recorded Advance Directives Directive None Recorded Payers Encounter Date Sequence Insurance Name Policy Number Policy Gregorio Covered Member ID Gregorio Member ID Guarantor Name 10/26/2022 1 [place] [id number] Zehra S Sanor [id number] Zehra S Sanor 11/28/2022 1 [place] [id number] Zehra S Sanor [id number] Zehra S Sanor 01/02/2023 1 [place] [id number] Zehra S Sanor [id number] Zehra S Sanor 10/01/2024 1 [place] [id number] Zehra S Sanor [id number] Zehra S Sanor Notes Date Note Type Note Provider Name and Address Organization Details Recorded Time 10/26/2022 text/html (64) Vern glover is a 57-year-old female referred to our office from Amalia Mccord APRN. liver ultrasound done 10/07/2022 revealed cholelithiasis and fatty liver. Also noted was a 1.5 cm hepatic cyst. Reports intermittent right upper quadrant pain after eating. Reports she has recently lost 20 lb. Denies nausea, vomiting or hematemesis. Denies heartburn or dysphagia. Denies diarrhea, constipation or hematochezia. Johnna Karimi NP [address], [place], [address], [facility] [place] 10/26/2022 16:22:00 10/01/2024 text/html CURRENT: Ms.Sano mckinney is a 58 year old female referred to us by Ms. Saba APRN for elevated liver enzymes. AST 48/ ALT 79 on recent labs. She reports she has had elevated liver enzymes for years dating back to 2011. Liver ultrasound in 2012 showed extensive hepatic steatosis. She does not remember if she saw a wire cutter in the past. She has a distant history of heavy alcohol use in her 20s but now only drinks excessively once a year. She denies history of drug use. No history hepatitis. She denies issues with jaundice, abdominal swelling, easy bleeding, or unintentional weight loss. NO other GI complaints. VANESSA CARDOZO NP [address], [place], [address], [facility] [place] 10/01/2024 19:14:11 OBGyn Episode No OBEpisode recorded.
--- OUTSIDE RECORDS SUMMARY | 2025-03-03 15:42 | XMS_ITS | Data Portability ---
Author Organization [facility] KRISTIE Abbott PLYMPTON CLOSED Address [address] [facility] [address] [place] [address] Care Team Providers Care Carbon Paper Interleafer Name Role Phone RAMANDEEP SMITH Primary Care Provider BETO VALENTE Orthopedic Surgeon CHAITANYA PARK Pie Maker Machine Assessment No assessment recorded. Plan of Treatment Reminders Order Date Submit Date Provider Last Modified By Organization Details Last Modified Time Details Appointments None recorded. Lab None recorded. Referral None recorded. Procedures None recorded. Surgeries None recorded. Imaging XR, knee, 3 view 024 [facility] [place], [address], [place], [address], 4 09:23:26 Medication Orders Medrol (Duglas) 4 mg tablets in a dose pack [facility] [address] [facility], [address] [place], [address], 4 09:19:12 Patient TargetsNo targets recorded. Patient InstructionsNo instructions recorded. Reason for Referral None Reported. Results Created Date Observation Date Name Description Value Unit Range Abnormal Flag Note LastModifiedBy Organization Detail LastModifiedTime 05/08/20 24 05/08/2024 XR, knee, 3 view Gerardo chishol[place] [facility] [place] [address] [address] Patimirta t Name: ZEHRA kumar : 1964 Romeo kumar Orderi ng Provid er: ANUJ KIRAN EXAM DATE: 2023 EXAM: XR LT KNEE 3 VIEWS COMPAR JOSÉ: 11/21/19 24 HISTOR Y: Follow -up of prior surger y. FINDIN GS: There has been interv al placem ent of a left knee total arthro plasty . There is no eviden ce of loosen ing. No fractu re is identi fied. Contra latera l knee: There are modera te to severe degene rative change s. IMPRES FARAZ: 1. There is a left total knee arthro plasty in place withou t eviden ce of loosen ing. Interp reted By: Trey mar MD Electr onical ly Signed By: Trey mar MD on 10:52 AM [email or web address] [facility] [place] [address], [place], [address], 05/08/2024 11:15:38 05/29/20 24 05/29/2024 XR, knee, 3 view [facility] [place] wa [address] [place] [address] Patimirta t Name: ZEHRA kumar : 1964 Romeo kumar Orderi ng Provid er: ANUJ KIRAN EXAM DATE: 2023 EXAM: XR LT KNEE 3 VIEWS COMPAR JOSÉ: 024 HISTOR Y: Follow -up of prior surger y. FINDIN GS: Again seen is a left knee total arthro plasty . There is no eviden ce of loosen ing. No fractu re is identi fied. Contra latera l knee: There are severe degene rative change s. IMPRES FARAZ: 1. There is a left total knee arthro plasty in place withou t eviden ce of loosen ing. Interp reted By: Trey mar MD Electr onical ly Signed By: Trey mar MD on 9:[address] [facility] [place] [address] , [place], [address], 05/29/2024 10:05:59 06/26/20 24 06/26/2024 XR, joint , multi ple, 1 view Greardo chisholm [facility] [address] [place] [address] Patimirta t Name: ZEHRA kumar : 1964 Romeo kumar Orderi ng Provid er: ANUJ KIRAN EXAM DATE: 2023 EXAM: XR LONG LEG LEFT/ JOINT SURVEY COMPAR JOSÉ: HISTOR Y: Follow -up of prior surger y. FINDROBLES GS: There is a left total knee arthro plasty in place. There is no eviden ce of loosen ing or compli cation . There is mild valgus angula tion. No fractu re is identi fied. There are mild degene rative change s in the left hip and mild degene rative change s in the ankle. IMPRES FARAZ: 1. There is a left knee arthro plasty in place with mild valgus angula tion. Interp reted By: Trey mar MD Electr onical ly Signed By: Trey mar MD on 8:[address] [facility] [address] , [place], [address], 06/26/2024 09:02:34 07/22/20 24 07/22/2024 XR, knee, 3 view Gerardo chisholm [facility] [address] [place] [address] Patimirta t Name: ZEHRA kumar : 1964 Romeo kumar Orderi ng Provid er: ANUJ KIRAN EXAM DATE: 2023 EXAM: XR LT KNEE 3 VIEWS COMPAR JOSÉ: HISTOR Y: Follow -up of prior surger y. FINDIN GS: Again seen is a left knee total arthro plasty . There is no eviden ce of loosen ing. No fractu re is identi fied. Contra latera l knee: There are severe degene rative change s. IMPRES FARAZ: 1. There is a left total knee arthro plasty in place withou t eviden ce of loosen ing. Interp reted By: Trey mar MD Electr onical ly Signed By: Trey mar MD on 07/22/20 24 9:03 AM [email or web address] [facility] [place] [address] , [place], [address], 07/22/2024 10:07:23 Result Notes None recorded. Problems Name Problem SNOMED Code Status Onset Date Resolution Date Notes Provider Name and Address Organization Details Recorded Time Radial styloid tenosynov itis 38631094 Active 2014 From Automated Load;Prov ider: Myron Thornton;S tatus: Active Not Available [facility] 6 08:50:20 Idiopathi c osteoarth ritis 116191277 Active 2014 From Automated Load;Prov ider: Myron Thornton;S tatus: Active Not Available [facility] 6 08:50:20 Skin sensation disturban ce 49300496 Active 2014 From Automated Load;Prov ider: Myron Thornton;S tatus: Active Not Available [facility] 6 08:50:20 Finding of sensation of skin Active 2014 From Automated Load;Prov ider: Myron Thornton;S tatus: Active Not Available [facility] 6 08:50:20 Snapping thumb syndrome 02980394 Active 2014 From Automated Load;Prov ider: Myron Thornton;S tatus: Active Not Available [facility] 6 08:50:20 Injury of tendon of the rotator cuff of shoulder 265705920 Active 2018 PEDRO CHAVES II, PT, DPT [address] [place], [address] , [facility] 9 07:20:38 Muscle weakness 19522477 Active 2018 PEDRO CHAVES II, PT, DPT [address] [place], [address] , [facility] 9 07:20:39 Spasm 17109533 Active 2018 PEDRO CHAVES II, PT, DPT [address] [place], [address] , [facility] 9 07:20:40 Muscular incoordin ation 86185673 Active 2018 PEDRO CHAVES II, PT, DPT [address] [place], [address] , [facility] 9 07:20:41 History of operative procedure on shoulder 800246310 Active 2018 PEDRO CHAVES II, PT, DPT [address] [place], [address] , [facility] 9 11:27:20 Biceps tendiniti s 985856621 Active 2018 PEDRO CHAVES II, PT, DPT [address] [place], [address] , [facility] 9 11:27:20 History of arthrosco py of knee joint 054602087 [facility] 2018 [facility] 16:25:08 Abnormal gait 17357093 Active 2018 [facility] 9 16:25:22 Coronary arteriosc lerosis 18950612 Active 2023 EMMANUELLE Andrew MD [address] [place], [address] , [facility] 4 17:48:09 History of percutane ous coronary intervent ion 114732656 Active 2023 EMMANUELLE Andrew MD [address] [place], [address] , [facility] 4 17:48:10 Type 2 diabetes mellitus without complicat ion 849844378 Active 2023 EMMANUELLE Andrew MD [facility] [place], [address] , [facility] 4 17:48:11 Osteoarth ritis of left knee joint 37189716083 9109 Active 2023 EMMANUELLE Andrew MD [address] [place] [address] [place], [address] , [facility] 4 17:48:13 Problem Notes None recorded. Procedures Surgical History Date Name Laterality Status Provider Name and Address Organization Details Recorded Time 4 PCM Visit completed Mekhi Weathers [facility] 04/11/2024 14:50:11 4 Injection Joint/Bursa, Major completed Holly Umanzor [facility] 11/21/2023 08:46:28 3 Injection Joint/Bursa, Major completed Jerod Del Castillo [facility] 06/23/2023 07:49:10 3 Injection Joint/Bursa, Second, Major completed Rosalind Ferreira [facility] 05/22/2023 17:27:54 2 Injection Trigger Finger Ortho completed MYRON THORNTON MD [address] [place], [address], [facility] 08/16/2022 09:40:25 9 PT Manual Therapy completed PEDRO CHAVES II, PT, DPT [address] [place], [address], [facility] 04/23/2019 09:22:49 9 PT Therapeutic Exercise completed PEDRO CHAVES II, PT, DPT [address] [place], [address], [facility] 04/23/2019 09:22:36 9 PT Manual Therapy completed PEDRO CHAVES II, PT, DPT [address] [place], [address], [facility] 04/19/2019 09:38:21 9 PT Therapeutic Exercise completed PEDRO GOODWINT II, PT, DPT [address] [place], [address], [facility] 04/19/2019 09:38:09 9 PT Manual Therapy completed PEDRO GOODWINT II, PT, DPT [address] [place], [address], [facility] 04/19/2019 14:52:48 9 PT Therapeutic Exercise completed PEDRO GOODWINT II, PT, DPT [address] [place], [address], [facility] 04/19/2019 14:52:18 9 PT Manual Therapy completed PEDRO GOODWINT II, PT, DPT [address] [place], [address], [facility] 04/11/2019 13:14:32 9 PT Therapeutic Exercise completed PEDRO GOODWINT II, PT, DPT [address] [place], [address], [facility] 04/11/2019 13:14:26 9 PT Evaluation - Moderate Complexity completed PEDRO GOODWINT II, PT, DPT [address] [place], [address], [facility] 03/27/2019 11:19:26 9 PT Therapeutic Exercise completed PEDRO CHAVES II, PT, DPT [address] [place], [address], [facility] 03/27/2019 11:19:48 9 Suture/Staple removal completed Gian LOAIZA PA-C [address] [place], [address], [facility] 03/17/2019 16:37:13 9 PT Manual Therapy completed PEDRO GOODWINT II, PT, DPT [address] [place], [address], [facility] 02/05/2019 11:48:02 9 PT Therapeutic Exercise completed PEDRO GOODWINT II, PT, DPT [address] [place], [address], [facility] 02/05/2019 11:48:00 9 PT Therapeutic Exercise completed PEDRO Penny CHAVES II, PT, DPT [address] [place], [address], [facility] 02/03/2019 21:33:58 9 PT Therapeutic Exercise completed PEDRO Penny CHAVES II, PT, DPT [address] [place], [address], [facility] 01/23/2019 10:48:24 9 PT Therapeutic Exercise completed PEDRO GOODWINT II, PT, DPT [address] [place], [address], [facility] 01/16/2019 08:36:06 9 PT Manual Therapy completed PEDRO CHAVES II, PT, DPT [address] [place], [address], [facility] 01/09/2019 10:18:54 9 PT Therapeutic Exercise completed PEDRO Penyn CHAVES II, PT, DPT [address] [place], [address], [facility] 01/09/2019 10:18:36 9 PT Manual Therapy completed PEDRO CHAVES II, PT, DPT [address] [place], [address], [facility] 01/01/2019 14:17:20 9 PT Therapeutic Exercise completed PEDRO GOODWINT II, PT, DPT [address] [place], [address], [facility] 01/01/2019 14:17:07 9 PT Manual Therapy completed PEDRO GOODWINT II, PT, DPT [address] [place], [address], [facility] 01/03/2019 08:09:40 9 PT Therapeutic Exercise completed PEDRO GOODWINT II, PT, DPT [address] [place], [address], [facility] 01/03/2019 08:09:27 9 PT Therapeutic Exercise completed PEDRO Hemalatha CHAVES II, PT, DPT [address] [place], [address], [facility] 12/20/2018 11:07:47 9 PT Evaluation - Moderate Complexity completed PEDRO GOODWINT II, PT, DPT [address] [place], [address], [facility] 12/20/2018 07:13:15 9 PT Therapeutic Exercise completed PEDRO Hemalatha CHAVES II, PT, DPT [address] [place], [address], [facility] 12/20/2018 07:13:36 7 Op Note completed MYRON THORNTON MD [address] [place], [address], [facility] 03/20/2017 08:16:54 Imaging Results Imaging Date Name Status LastModified by Organ [facility] Details LastModified Time 05/08/2024 XR, knee, 3 view completed [address] [facility] [place] [address] , [place], [address], 05/08/2024 11:15:38 05/29/2024 XR, knee, 3 view completed [address] [facility] [place] [address] , [place], [address], 05/29/2024 10:05:59 06/26/2024 XR, joint, multiple, 1 view completed [address] [facility] [place] [address] , [place], [address], 06/26/2024 09:02:34 07/22/2024 XR, knee, 3 view completed [address] [facility] [place] [address] , [place], [address], 07/22/2024 10:07:23 Procedure Notes None recorded. Medical Equipment None Reported. Allergies Allergen ID Allergen Name Allergen Category Reaction Reaction Severity Criticality Documentation Date Start Date Code Code System Note Provider Name and Address Organization Details Recorded Time 541262 lisinopri l medicatio n cough Not available Not available 11/29/2018 25162 RxNorm Jerod Del Castillo [facility] 9 09:54:54 Medications Name Sig Start Date Stop Date Status Note LastModified by Organization Details LastModified Time metformin 500 mg tablet Take 1 tablet twice a day by oral route. active Not Available Not Available No t Available hydrocodo ne 5 mg-acetam inophen 325 mg tablet Take 1 tablet every 4-6 hours by oral route as needed. 09/02 completed Not Available Not Available Not Available Medrol (Duglas) 4 mg tablets in a dose pack as directed 2023 active Not Available Not Available Not Avai lable clopidogr el 75 mg tablet Take 1 tablet every day by oral route. active Not Available Not Available No t Available tramadol 50 mg tablet TAKE 1 TABL PO Q 4-6 HRS PRN FOR SEVERE POST SURGICAL PAIN 05/05 completed Not Available Not Available Not Available bisoprolo l fumarate 5 mg tablet Take 1 tablet every day by oral route. active Not Available Not Available No t Available meloxicam 7.5 mg tablet TAKE 1 TABLE PO QD WITH FOOD REGARDLE SS OF PAIN LEVEL FOR 1 WEEK. THEN TAKE 1 TABLET PO QD ONLY PRN FOR PAIN RELIEF THEREAFT ER 05/05 completed Not Available Not Available Not Available Zofran 4 mg tablet Take 1 tablet every 8 hours by oral route as needed. 09/02 completed Not Available Not Available Not Available Percocet 10 mg-325 mg tablet 1 PO Q 4-6 hours prn surgical pain 10/13 completed Not Available Not Available Not Available cephalexi n 500 mg capsule Take 1 capsule 4 times a day by oral route. 09/28 completed Not Available Not Available Not Available hydrochlo rothiazid e 12.5 mg capsule Take 1 capsule every day by oral route. 07/14 completed Not Available Not Available Not Available gabapenti n 300 mg capsule Take 1 capsule 3 times a day by oral route. active Not Available Not Available No t Available [place] 10 mg-325 mg tablet Take 1 tablet every 4 hours by oral route as needed. 10/13 completed Not Available Not Available Not Available gabapenti n 100 mg capsule Take 1 capsule every day by oral route at bedtime. 09/02 completed Not Available Not Available Not Available prednison e 5 mg tablets in a dose pack Take 1 dose pk by oral route as directed . 12/22 completed Not Available Not Available Not Available Percocet 5 mg-325 mg tablet Take 1 tablet every 6 hours by oral route as needed. 2023 active Not Available Not Available Not Avai lable lovastati n ER 20 mg tablet,ex tended release 24 hr Take 1 tablet every day by oral route. 05/22 completed Not Available Not Available Not Available rosuvasta tin 10 mg tablet Take 1 tablet every day by oral route. active Not Available Not Available No t Available Neurontin 05/05 completed Not Available Not Available Not Available Glucophag e 12/22 completed Medicati on Descript ion: metformi n; refills: 0 Not Available Not Available Not Available Cozaar active Medicati on Descript ion: losartan ; refills: 0 Not Available Not Available Not Available glimepiri de 11/29 completed Medicati on Descript ion: glimepir juan pablo; Route:or al; refills: 0 Not Available Not Available Not Available Lantus U-100 Insulin 07/14 completed Not Available Not Available Not Available Humalog KwikPen (U-100) Insulin 100 unit/mL subcutane ous Inject 20 units every day by subcutan eous route. 07/14 completed Not Available Not Available Not Available Jardiance 25 mg tablet Take 1 tablet every day by oral route. active Not Available Not Available No t Available Ozempic active Not Available Not Avail able Not Available Vitals Date Recorded Body height Body mass index (BMI) Body weight Pain severity - 0-10 verbal numeric rating [Score] - Reported Provider Name and Address Organization Details Last Updated DateTime 05/08/2024 175.26 cm 26.4 kg/m2 97928.03 g 0 Lilia Rashid [facility] 05/08/2024 10:57:45 Date Recorded Body height Body mass index (BMI) Body weight Pain severity - 0-10 verbal numeric rating [Score] - Reported Systolic blood pressure Diastolic blood pressure Provider Name and Address Organization Details Last Updated DateTime 175.26 cm 26.4 kg/m2 70843.0 3 g 2 125 mm[Hg] 80 mm[Hg] Kumardolores Weathers [facility] 09:32:10 Date Recorded Body height Provider Name an d Address Organization Details Last Updated DateTime 06/26/2024 175.26 cm Bola Patelgeeta Carlos [facility] 06/26/2024 08:46:55 Date Recorded Body height Body mass index (BMI) Body weight Provider Name and Address Organization Details Last Updated DateTime 07/22/2024 175.26 cm 26.4 kg/m2 33393.03 g Holly Umanzor [facility] 07/22/2024 08:02:03 Social History Question Answer Notes LastModified by [employer] ion Details LastModified Time Tobacco Smoking Status Former Smoker Smita estrada [facility] 03/03/2017 15:28:02 Accident Related Injury Yes [email or web address] Information not available 03/03/2017 What Is Your Level Of Alcohol Consumption? Occasional [email or web address] Information not available 03/03/2017 What Is Your Level Of Caffeine Consumption? Moderate Information not available 03/03/2017 Are You Currently Employed? Yes [email or web address] Information not available 03/03/2017 What Is Your Occupation? [employer] [email or web address] Information not available 03/03/2017 Which Of Your Hands Is Dominant? Right [email or web address] Information not available 03/03/2017 Which Hand Is Involved? Right [email or web address] Information not available 03/03/2017 Rate The Severity Of Your Symptoms: (0-10 With 0=none And 10=worst Possible) 3 [email or web address] Information not available 02/05/2019 When Are Your Symptoms The Worst? Night Day Neither Neither Information not available 03/03/2017 Date Of Injury: 06/11/2015 Informati on not available 03/03/2017 Have You Been Treated For This Problem Before? Yes [email or web address] Information not available 03/03/2017 How Long Have You Had These Symptoms? 06/11/2015 Information not available 03/03/2017 Will This Be Filed As Workers' Compensation? Yes [email or web address] Information not available 03/03/2017 What Was The Date Of Your Most Recent Tobacco Screening? 05/13/2019 Information not available 12/31/2019 Do You Use Any Illicit Or Recreational Drugs? No [email or web address] Information not available 03/03/2017 Has Tobacco Cessation Counseling Been Provided? No [email or web address] Information not available 03/03/2017 Work Related Injury? Yes [email or web address] Information not available 03/03/2017 Sex: Unknown Functional Status None recorded. Mental Status None recorded. Family History Relationship Description Onset Age of this Age Resolved Age Notes LastModified by Organization Details LastModified Time Father No current problems or disability [email or web address] Not available 03/03 15:27:56 Mother No current problems or disability [email or web address] Not available 03/03 15:27:56 Medical History Condition Response Allergies/Hayfever N Anxiety/Depression N Other N Gout N Thyroid Disease N Kidney Stones N Heart Conditions N Hernia N Migraines N Glaucoma N COPD N Pneumonia N Skin Problems N Immune System Disorder N Anesthesia Complications N Heart Attack (MD) N Mental Illness N Neurological Problems N Diabetes Y Rheumatic Fever N Bleeding Disorder N Arthritis N Seizures/Epilepsy N Blood Clot N Tuberculosis N Genetic Disorder N AIDS/HIV N Cancer N Stroke N Asthma N Blood Thinners N Alcohol Overuse/Alcohol Abuse N Sleep Apnea N High Cholesterol Y Liver Disease N Included as Review of Systems N Hypertension N Osteoporosis N Kidney Disease N Gynecological HistoryNo gynecological history recorded. Obstetrics History GPAL:G 0 P 0 0 0 0 Past Encounters Encounter ID Performer Location Encounter Start Date Encounter Closed Date Diagnosis/Indication Diagnosis SNOMED-CT Code Diagnosis ICD10 Code Diagnosis Note [id number] [facility] [place] [address] [place] , [place] [address] 03/03/2017 14:23:32 03/03/2017 16:45:25 Snapping thumb syndrome 65720216 M65.311 Right trigger thumb Osteoarthr osis of the carpometacarpal joint of the thumb 59542012 M18.11 Previous x-rays of the right wrist dated 07/30/15 demonstrat e mild arthritic changes of the thumb [facility] joint (CSI: 01/19/16) [id number] SURGERY SCHEDULE 12[address] [facility] [address] 03/20/2017 06:04:45 03/20/2017 06:10:21 [id number] [facility] [place] [address] [place] [address] 03/31/2017 15:16:43 03/31/2017 16:07:47 Postoperative care 498614750 Z48.89 2 weeks status post right trigger thumb release (03/20/17) [id number] [facility] [place] [address] [place] [address] 05/05/2017 15:10:04 05/05/2017 16:51:23 Postoperative care 385626726 Z48.89 6 weeks status post right trigger thumb release (03/20/17) [id number] BETO VALENTE MD [facility] [place] [address] [place] [address] 11/29/2018 09:31:09 11/29/2018 12:08:29 Pain of right shoulder joint 3866950130 7545489 M25.025 [id number] BETO VALENTE MD PHYSICAL THERAPY / HAND THERAPY [facility] [place] [address] 12/06/2018 13:43:55 12/20/2018 11:22:54 Injury of tendon of the rotator cuff of shoulder 840224398 S46.091D Muscle weakness 97038724 M62.81 Spasm 48184613 R25.2 Muscular incoordination 58311198 R27.8 [id number] PEDRO CHAVES II, PT, DPT PHYSICAL THERAPY / HAND THERAPY [facility] [place] [address] [id number] 12/20/2018 10:12:44 12/20/2018 11:46:47 Injury of tendon of the rotator cuff of shoulder 462506101 S46.091D Muscle weakness 83846248 M62.81 Muscular incoordination 82645174 R27.8 Spasm 44813507 R25.2 [id number] PEDRO CHAVES II, PT, DPT PHYSICAL THERAPY / HAND THERAPY [place] [address] [place] [address] 12/28/2018 08:00:23 01/03/2019 10:08:18 Injury of tendon of the rotator cuff of shoulder 190088159 S46.091D Muscle weakness 61943685 M62.81 Muscular incoordination 59106213 R27.8 Spasm 85373662 R25.2 [id number] PEDRO CHAVES II, PT, DPT PHYSICAL THERAPY / HAND THERAPY [place] [address] [place] [address] 01/01/2019 10:25:25 01/01/2019 12:32:38 Muscle weakness 29949071 M62.81 Injury of tendon of the rotator cuff of shoulder 953622829 S46.091D Muscular incoordination 56057570 R27.8 Spasm 31850640 R25.2 [id number] BETO VALENTE MD [facility] [place] [address] [place] [address] 01/01/2019 10:25:46 01/01/2019 14:47:36 Pain of right shoulder joint 7388271353 8765270 M25.797 [id number] PEDRO CHAVES II, PT, DPT PHYSICAL THERAPY / HAND THERAPY [place] [address] [place] [address] 01/09/2019 08:53:33 01/09/2019 10:33:49 Muscle weakness 31170104 M62.81 Injury of tendon of the rotator cuff of shoulder 821788031 S46.091D Muscular incoordination 57621676 R27.8 Spasm 50659737 R25.2 [id number] PEDRO CHAVES II, PT, DPT PHYSICAL THERAPY / HAND THERAPY [place] [address] [address] [address] 01/16/2019 07:16:12 01/16/2019 08:39:53 Injury of tendon of the rotator cuff of shoulder 123565350 S46.091D Muscle weakness 18935418 M62.81 Muscular incoordination 84666311 R27.8 Spasm 37172985 R25.2 [id number] PEDRO CHAVES II, PT, DPT PHYSICAL THERAPY / HAND [place] [address] 01/23/2019 07:26:00 01/23/2019 13:26:37 Muscle weakness 52866096 M62.81 Injury of tendon of the rotator cuff of shoulder 087991134 S46.091D Muscular incoordination 42792576 R27.8 Spasm 93713217 R25.2 [id number] PEDRO CHAVES II, PT, DPT PHYSICAL THERAPY / HAND THERAPY [facility] [place] [address] 01/30/2019 07:24:14 02/04/2019 08:52:18 Injury of tendon of the rotator cuff of shoulder 524586384 S46.091D Muscle weakness 66095509 M62.81 Muscular incoordination 93600929 R27.8 Spasm 16349376 R25.2 [id number] PEDRO CHAVES II, PT, DPT PHYSICAL THERAPY / [facility] [place] [address] 02/05/2019 10:45:34 02/05/2019 13:35:49 Muscle weakness 52777223 M62.81 Injury of tendon of the rotator cuff of shoulder 962473517 S46.091D Muscular incoordination 51166714 R27.8 Spasm 77545388 R25.2 [id number] BETO VALENTE [facility] [place] [address] 02/05/2019 11:48:20 02/05/2019 13:47:18 Pain of right shoulder joint 9900245709 7347620 M25.171 [id number] BETO VALENTE MD SURGERY SCHEDULE [address] [place] [address] 03/08/2019 09:13:57 03/08/2019 09:35:08 [id number] Gian LOAIZA PA-C ORTHOPEDI [facility] [address] 03/14/2019 14:42:11 03/14/2019 15:46:39 Postoperative care 040860063 Z48.89 [id number] BETO VALENTE MD PHYSICAL THERAPY / HAND THERAPY [facility] [place] [address] 03/27/2019 07:51:23 03/27/2019 13:04:43 Muscle weakness 80182709 M62.81 History of operative procedure on shoulder 400421355 Z98.890 Biceps tendinitis 639514 007 M75.21 Muscular incoordination 18970223 R27.8 [id number] PEDRO CHAVES II, PT, DPT PHYSICAL THERAPY / HAND THERAPY [facility] [address] [place] [address] 04/11/2019 08:18:18 04/11/2019 09:23:31 Biceps tendinitis 961431034 M75.21 Muscle weakness 42427811 M62.81 Muscular incoordination 47460469 R27.8 History of operative procedure on shoulder 029131671 Z98.464 [id number] Gian LOAIZA PA-C ORTHOPEDI [facility] [address] [place] [address] 04/11/2019 08:18:50 04/11/2019 09:59:59 Postoperative care 608781259 Z48.89 [id number] PEDRO CHAVES II, PT, DPT PHYSICAL THERAPY / [facility] [place] [address] 04/16/2019 08:21:36 04/22/2019 09:36:50 Biceps tendinitis 913205064 M75.21 Muscle weakness 32671018 M62.81 Muscular incoordination 51375442 R27.8 History of operative procedure on shoulder 533748459 Z98.831 [id number] PEDRO CHAVES II, PT, DPT PHYSICAL THERAPY / HAND THERAPY [facility] [address] [place] [address] 04/19/2019 08:45:02 04/19/2019 15:37:00 Biceps tendinitis 361538892 M75.21 Muscle weakness 09190218 M62.81 Muscular incoordination 93335059 R27.8 History of operative procedure on shoulder 433301300 Z98.674 [id number] BETO VALENTE MD ORTHOPEDI [facility] [address] [place] [address] 04/22/2019 14:42:50 05/06/2019 09:40:22 Tear of lateral meniscus of knee 230021443 S83.281A Pes anseri nus bursitis of right knee 7059877553 464496 M70.51 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 643677495 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 [id number] PEDRO CHAVES II, PT, DPT PHYSICAL THERAPY / HAND THERAPY [facility] [place] [address] [address] 04/23/2019 08:45:17 04/23/2019 12:56:49 Biceps tendinitis 204671701 M75.21 Muscle weakness 71225175 M62.81 Muscular incoordination 05950299 R27.8 History of operative procedure on shoulder 103332426 Z98.839 [id number] PEDRO CAHVES II, PT, DPT PHYSICAL THERAPY / [facility] [place] [address] [address] 04/26/2019 08:45:45 05/01/2019 10:20:49 Biceps tendinitis 531403663 M75.21 Muscle weakness 67460212 M62.81 History of operative procedure on shoulder 259240946 Z98.890 Muscular incoordination 11283861 R27.8 [id number] BETO VALENTE MD [facility] [place] [address] 04/30/2019 08:04:05 04/30/2019 10:03:41 Pain in right knee 1791290487 72744 M25.905 [id number] PEDRO CHAVES II, PT, DPT PHYSICAL THERAPY / HAND THERAPY [place] [address] [place] [address] 04/30/2019 08:06:50 05/01/2019 13:41:09 Biceps tendinitis 696495436 M75.21 Muscle weakness 91975801 M62.81 Muscular incoordination 96553646 R27.8 History of operative procedure on shoulder 617868147 Z98.575 [id number] PEDRO CHAVES II, PT, DPT PHYSICAL THERAPY / HAND THERAPY [facility] [place] [address] [address] 05/07/2019 08:17:18 05/07/2019 09:55:31 Biceps tendinitis 155846972 M75.21 Muscle weakness 37595168 M62.81 History of operative procedure on shoulder 005570383 Z98.890 Muscular incoordination 62503740 R27.8 [id number] PEDRO CHAVES II, PT, DPT PHYSICAL THERAPY / HAND THERAPY [place] [address] [place] [address] 05/10/2019 08:53:18 05/21/2019 08:14:13 Biceps tendinitis 234101138 M75.21 Muscle weakness 98838261 M62.81 Muscular incoordination 23218724 R27.8 History of operative procedure on shoulder 040702159 Z98.549 [id number] PEDRO CHAVES II, PT, DPT PHYSICAL THERAPY / HAND THERAPY [place] [address] [place] [address] 05/13/2019 08:50:22 05/15/2019 08:31:09 Biceps tendinitis 083964092 M75.21 Muscle weakness 58274117 M62.81 Muscular incoordination 76021210 R27.8 History of operative procedure on shoulder 158707219 Z98.910 [id number] BETO VALENTE MD ORTHOPEDI [place] [address] [place] [address] 05/13/2019 08:51:00 05/13/2019 15:21:13 Pain of right shoulder joint 5940091403 8424287 M25.328 [id number] PEDRO CHAVES II, PT, DPT PHYSICAL THERAPY / HAND THERAPY [place] [address] [place] [address] 05/15/2019 08:27:39 05/15/2019 10:39:55 Biceps tendinitis 618681144 M75.21 Muscle weakness 81289730 M62.81 Muscular incoordination 30106120 R27.8 History of operative procedure on shoulder 852954999 Z98.331 [id number] PEDRO CHAVES II, PT, DPT PHYSICAL THERAPY / HAND THERAPY [place] [address] [place] [address] 05/20/2019 08:18:17 05/20/2019 17:28:12 Biceps tendinitis 651463003 M75.21 Muscle weakness 31053763 M62.81 Muscular incoordination 08948265 R27.8 History of operative procedure on shoulder 412103051 Z98.793 [id number] PEDRO CHAVES II, PT, DPT PHYSICAL THERAPY / HAND THERAPY [facility] [address] [place] [address] 05/23/2019 09:54:02 05/24/2019 10:32:36 Biceps tendinitis 657971544 M75.21 Muscle weakness 19175940 M62.81 Muscular incoordination 08672130 R27.8 Injury of tendon of the rotator cuff of shoulder 412457458 S46.091D [id number] PEDRO CHAVES II, PT, DPT PHYSICAL THERAPY / HAND THERAPY [facility] [address] [place] [address] 05/27/2019 09:48:34 05/27/2019 11:36:38 Biceps tendinitis 185512342 M75.21 Muscle weakness 48689173 M62.81 Muscular incoordination 75890188 R27.8 History of operative procedure on shoulder 642657340 Z98.242 [id number] SEAN GUIDRY, JOSE A PHYSICAL THERAPY / [facility] [address] [place] [address] 06/05/2019 08:42:58 06/05/2019 11:40:58 Biceps tendinitis 982832120 M75.21 Muscle weakness 05949587 M62.81 Muscular incoordination 26463596 R27.8 History of operative procedure on shoulder 186269825 Z98.890 Injury of tendon of the rotator cuff of shoulder 102704369 S46.001D [id number] BETO VALENTE MD SURGERY SCHEDULE [address] [place] [address] 06/07/2019 06:19:58 06/07/2019 06:21:26 [id number] PEDRO CHAVES II, PT, DPT PHYSICAL THERAPY / HAND THERAPY [facility] [address] [place] [address] 06/10/2019 08:50:50 06/17/2019 11:34:27 Biceps tendinitis 855285004 M75.21 Muscle weakness 51941255 M62.81 Injury of tendon of the rotator cuff of shoulder 890552954 S46.091D Muscular incoordination 14968334 R27.8 [id number] R AUGUSTUS LOAIZA PA-C [facility]OPEDI [facility] [address] [place] [address] 06/13/2019 14:11:08 06/13/2019 14:54:35 Postoperative care 147177512 Z48.89 [id number] PEDRO CHAVES II, PT, DPT PHYSICAL THERAPY / HAND THERAPY [place] [address] [place] [address] 06/13/2019 14:13:24 06/18/2019 14:53:33 Biceps tendinitis 672659284 M75.21 Muscle weakness 48276863 M62.81 History of operative procedure on shoulder 762014330 Z98.890 Muscular incoordination 50701587 R27.8 [id number] PEDRO CHAVES II, PT, DPT PHYSICAL THERAPY / HAND THERAPY [place] [address] [place] [address] 06/17/2019 07:49:24 06/24/2019 14:45:57 Biceps tendinitis 096147561 M75.21 Muscle weakness 35912934 M62.81 Muscular incoordination 62261094 R27.8 History of operative procedure on shoulder 598236071 Z98.204 [id number] BETO VALENTE MD ORTHOPEDI [place] [address] [place] [address] 06/17/2019 07:52:06 06/17/2019 09:40:09 Pain of right shoulder joint 6308301341 8299744 M25.271 [id number] PEDRO CHAVES II, PT, DPT PHYSICAL THERAPY / HAND THERAPY [place] [address] [place] [address] 06/20/2019 08:44:33 06/26/2019 10:32:07 Muscle weakness 61659451 M62.81 Muscular incoordination 71488719 R27.8 Injury of tendon of the rotator cuff of shoulder 690860437 S46.091D History of operative procedure on shoulder 302093829 Z98.362 [id number] PEDRO CHAVES II, PT, DPT PHYSICAL THERAPY / HAND THERAPY [place] [address] [place] [address] 06/24/2019 07:51:58 06/28/2019 08:06:30 Muscle weakness 64341672 M62.81 Muscular incoordination 75810434 R27.8 History of operative procedure on shoulder 702216013 Z98.890 Injury of tendon of the rotator cuff of shoulder 283675082 S46.091D [id number] PEDRO CHAVES II PT, DPT PHYSICAL THERAPY / HAND THERAPY [facility] [place] [address] 06/27/2019 08:23:59 07/02/2019 12:57:41 Biceps tendinitis 886945315 M75.21 Muscle weakness 49278463 M62.81 Muscular incoordination 16517341 R27.8 History of operative procedure on shoulder 022671496 Z98.421 [id number] BETO VALENTE MD PHYSICAL THERAPY / HAND THERAPY [place] [address] [place] [address] 06/27/2019 09:05:46 07/02/2019 13:01:22 History of arthroscopy of knee joint 615895541 Z98.890 Muscle weakness 80979742 M62.81 Muscular incoordination 26915288 R27.8 Abnormal gait 39953587 R 26.9 [id number] PEDRO CHAVES II PT, DPT PHYSICAL THERAPY / HAND THERAPY [place] [address] [place] [address] 07/01/2019 09:15:09 07/02/2019 16:43:38 Biceps tendinitis 786847165 M75.21 Muscle weakness 17479861 M62.81 Injury of tendon of the rotator cuff of shoulder 779977936 S46.091D Muscular incoordination 76242562 R27.8 [id number] PEDRO CHAVES II PT, DPT PHYSICAL THERAPY / HAND THERAPY [place] [address] [place] [address] 07/04/2019 08:37:58 07/04/2019 15:54:01 Biceps tendinitis 375322597 M75.21 Muscle weakness 13788215 M62.81 Muscular incoordination 45954289 R27.8 History of operative procedure on shoulder 485067952 Z98.577 [id number] PEDRO CHAVES II, PT, DPT PHYSICAL THERAPY / HAND THERAPY [facility] [address] [place] [address] 07/04/2019 08:39:01 07/16/2019 16:19:15 Abnormal gait 00662189 R26.9 Muscle weakness 72497537 M62.81 Muscular incoordination 57146570 R27.8 History of arthroscopy of knee joint 559779037 Z98.066 [id number] R AUGUSTUS LOAIZA PA-C [facility] [address] [place] [address] 07/04/2019 08:39:56 07/04/2019 13:52:12 Postoperative care 460663732 Z48.89 [id number] PEDRO CHAVES II, PT, DPT PHYSICAL THERAPY / HAND THERAPY [place] [address] [place] [address] 07/09/2019 07:39:22 07/09/2019 15:11:07 Abnormal gait 14334649 R26.9 Muscle weakness 47992014 M62.81 Muscular incoordination 17894640 R27.8 History of arthroscopy of knee joint 453708423 Z98.842 [id number] PEDRO CHAVES II, PT, DPT PHYSICAL THERAPY / HAND THERAPY [place] [address] [place] [address] 6 07/09/2019 07:40:03 07/09/2019 15:10:02 Biceps tendinitis 383268540 M75.21 Muscle weakness 83056315 M62.81 Muscular incoordination 06187623 R27.8 History of operative procedure on shoulder 099056548 Z98.786 [id number] PEDRO CHAVES II, PT, DPT PHYSICAL THERAPY / HAND THERAPY [place] [address] [place] [address] 07/11/2019 08:26:10 07/26/2019 08:02:14 Biceps tendinitis 448844894 M75.21 Muscle weakness 27230591 M62.81 Muscular incoordination 14091657 R27.8 History of operative procedure on shoulder 465711021 Z98.483 [id number] PEDRO CHAVES II, PT, DPT PHYSICAL THERAPY / [facility]Y [facility] [address] [place] [address] 07/16/2019 12:44:55 07/16/2019 14:36:53 Biceps tendinitis 010193641 M75.21 Muscle weakness 06217409 M62.81 Muscular incoordination 48665624 R27.8 History of arthroscopy of knee joint 373484388 Z98.890 History of operative procedure on shoulder 486798973 Z98.994 [id number] PEDRO CHAVES II, PT, DPT PHYSICAL THERAPY / HAND [facility]APY [facility] [address] [place] [address] 07/19/2019 08:38:14 08/01/2019 07:13:05 Biceps tendinitis 916500975 M75.21 Muscle weakness 46770012 M62.81 Injury of tendon of the rotator cuff of shoulder 642848281 S46.091D History of operative procedure on shoulder 151932689 Z98.362 [id number] PEDRO CHAVES II, PT, DPT PHYSICAL THERAPY / HAND [facility]ERAPY [facility] [address] 07/19/2019 08:39:44 07/24/2019 08:19:48 Abnormal gait 52810003 R26.9 Muscle weakness 90855028 M62.81 History of arthroscopy of knee joint 821332855 Z98.448 [id number] PEDRO CHAVES II, PT, DPT PHYSICAL THERAPY / HAND THERAPY [facility] [address] [place] [address] 07/23/2019 09:48:51 07/23/2019 13:28:20 Abnormal gait 08821911 R26.9 Muscle weakness 56724968 M62.81 Muscular incoordination 39927898 R27.8 History of arthroscopy of knee joint 306875959 Z98.490 [id number] BETO VALENTE MD [facility] [place] [address] [place] [address] 07/23/2019 09:51:16 07/23/2019 12:40:27 Pain of right shoulder joint 6199009120 5301244 M25.905 [id number] PERDO CHAVES II, PT, DPT PHYSICAL THERAPY / HAND THERAPY [place] [address] [place] [address] 07/23/2019 09:52:01 07/24/2019 16:36:10 Muscle weakness 25511065 M62.81 Injury of tendon of the rotator cuff of shoulder 306134835 S46.091D Muscular incoordination 59669724 R27.8 History of operative procedure on shoulder 096747194 Z98.052 [id number] PEDRO CHAVES II PT, DPT PHYSICAL THERAPY / HAND THERAPY [place] [address] [place] [address] 07/25/2019 08:46:43 08/05/2019 15:18:30 Biceps tendinitis 619201858 M75.21 Muscle weakness 47254369 M62.81 Muscular incoordination 89804875 R27.8 History of operative procedure on shoulder 577944188 Z98.208 [id number] PEDRO CHAEVS II PT, DPT PHYSICAL THERAPY / HAND THERAPY [place] [address] [place] [address] 07/30/2019 08:43:36 08/12/2019 08:30:00 Biceps tendinitis 916716170 M75.21 Muscle weakness 84872186 M62.81 Muscular incoordination 88621243 R27.8 History of operative procedure on shoulder 096074286 Z98.724 [id number] PEDRO CHAVES II PT, DPT PHYSICAL THERAPY / HAND THERAPY [place] [address] [place] [address] 07/30/2019 08:44:27 08/12/2019 08:30:49 Abnormal gait 92807411 R26.9 Muscle weakness 21364749 M62.81 History of arthroscopy of knee joint 130959223 Z98.890 Muscular incoordination 79752392 R27.8 [id number] PEDRO CHAVES II, PT, DPT PHYSICAL THERAPY / HAND THERAPY [facility] [address] [place] [address] 08/01/2019 08:39:40 08/09/2019 09:11:04 Biceps tendinitis 661228171 M75.21 Muscle weakness 53303932 M62.81 History of operative procedure on shoulder 738958021 Z98.890 Muscular incoordination 21902822 R27.8 [id number] PEDRO CHAVES II, PT, DPT PHYSICAL THERAPY / HAND THERAPY [place] [address] [address] [address] 08/05/2019 09:36:20 08/12/2019 08:07:57 Biceps tendinitis 766675922 M75.21 Muscle weakness 96415380 M62.81 Muscular incoordination 09953407 R27.8 History of operative procedure on shoulder 966188180 Z98.053 [id number] BETO VALENTE MD ORTHOPEDI [facility] [address] [address] 08/15/2019 09:31:43 08/15/2019 14:47:54 Osteoarthritis of right knee joint 3565690541 63053 M17.11 [id number] BETO VALENTE [facility] [address] [place] [address] 08/27/2019 10:16:36 08/27/2019 12:39:10 Pain of right shoulder joint 8845712757 8474748 M25.305 [id number] BETO VALENTE MD [facility]OPEDI [facility] [address] [place] [address] 6 09/23/2019 10:34:30 09/25/2019 12:32:00 Tear of lateral meniscus of knee 240191524 S83.271A [id number] BETO VALENTE MD [facility] [address] [place] [address] 10/08/2019 10:14:25 10/14/2019 19:41:27 Pain of right shoulder joint 7371027534 2367884 M25.269 [id number] BETO VALENTE MD [facility]EDI [facility] [address] [place] [address] 01/27/2020 11:40:47 01/27/2020 14:05:41 Osteoarthritis of knee 059748417 M17.11 [id number] BETO VALENTE MD [facility] [address] [place] [address] 07/13/2020 09:09:21 07/13/2020 11:40:02 Pain in right knee 4656762754 19168 M25.378 [id number] BETO VALENTE MD [facility] [address] [place] [address] 08/28/2020 11:04:16 08/28/2020 11:54:22 Tendinitis of left patellar tendon 8582621752 88724 M76.52 Pain in left knee 764323 9451 95872 M25.562 possible mm tear [id number] [facility] [address] [place] [address] 10/13/2020 12:49:31 10/13/2020 13:48:58 Postoperative care 444997269 Z48.89 Previously status post right trigger thumb release (03/20/17) Pain in right thumb 1076 010990 637606 M79.644 Outside x-rays of the right thumb reviewed with no evidence of underlying fracture/d islocation [id number] [facility] [address] [place] [address] 11/12/2020 10:44:15 11/12/2020 13:27:11 Pain in right thumb 7967970811 524981 M79.644 Outside x-rays of the right thumb reviewed with no evidence of underlying fracture/d islocation Postoperative care 38274 9007 Z48.89 Previously status post right trigger thumb release (03/20/17) [id number] [facility] [address] [place] [address] 12/22/2020 14:33:53 12/23/2020 13:36:28 Pain in right thumb 9424650892 217283 M79.644 Outside x-rays of the right thumb reviewed with no evidence of underlying fracture/d islocation Postoperative care 56711 9007 Z48.89 Previously status post right trigger thumb release (03/20/17) [id number] BETO VALENTE MD [facility] [address] [place] [address] 05/18/2021 14:23:54 05/18/2021 15:57:45 Infection of foot 662126372 L08.9 Pain in left knee 435745 8135 15303 M25.562 possible mm tear [id number] Kristine Harlan [facility] [address] [address] 05/24/2021 14:39:33 05/24/2021 17:02:15 Pain in left knee 2273106967 58019 M25.562 possible mm tear [id number] BETO VALENTE MD SURGERY SCHEDULE [address] [place] [address] 08/27/2021 06:07:52 08/27/2021 06:09:09 [id number] TY VARGAS PA-C [facility] [address] [place] [address] 09/02/2021 08:48:30 09/02/2021 09:27:09 Postoperative care 832302183 Z48.89 [id number] TY VARGAS PA-C [facility] [address] [place] [address] 09/28/2021 09:02:50 09/28/2021 10:04:41 Postoperative care 517313101 Z48.89 Patient progressin g well postoperat ively. Some residual aching in the medial aspect of the knee. Advised her that this is normal considerin g the arthritic changes that were discovered during the arthroscop y. Plan: Continue PT with HEP. Continue to ice and elevate frequently . Over-the-c ounter anti-infla mmatories as needed. We did discuss possibilit ies of steroid injection in the future if she continues to have this aching pain. [id number] TY VARGAS PA-C [facility] [address] [place] [address] 10/26/2021 08:42:32 10/26/2021 09:16:09 Postoperative care 081209183 Z48.89 Patient progressin g well postoperat ively. Some residual aching in the medial aspect of the knee. Strength and range of motion appropriat e today.Plan :Continue PT with HEP. Continue to ice and elevate frequently . Over-the-c ounter anti-infla mmatories as needed. Hold on injection today. [id number] TY VARGAS PA-C [facility] [address] [place] [address] 11/23/2021 12:57:16 11/23/2021 13:33:06 Postoperative care 684847326 Z48.89 Patient progressin g well postoperat ively. Some residual aching in the medial aspect of the knee. Strength and range of motion appropriat e today.Plan :Continue HEP. Ice and elevate as needed. 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 [place] [address] 04/20/2022 06:03:00 04/20/2022 06:04:21 [id number] [facility] [address] [place] [address] 05/05/2022 08:06:56 05/05/2022 08:31:04 Postoperative care [id number] Z48.89 s/p Right middle trigger finger release (DOS: 04/20/22) Previously status post right trigger thumb release (03/20/17) [id number] MYRON THORNTON MD [facility] [address] [place] [address] 06/02/2022 09:09:46 06/02/2022 10:10:14 Postoperative care [id number] Z48.89 6 weeks s/p Right middle trigger finger release (DOS: 04/20/22) Previously status post right trigger thumb release (03/20/17) [id number] MYRON THORNTON MD [facility] [address] [place] [address] 07/14/2022 08:16:23 07/14/2022 08:40:50 Postoperative care [id number] Z48.89 12 weeks s/p Right middle trigger finger release (DOS: 04/20/22) Previously status post right trigger thumb release (03/20/17) [id number] MYRON THORNTON MD [facility] [address] [place] [address] 08/16/2022 08:33:51 08/16/2022 09:39:47 Postoperative care [id number] Z48.89 4 months s/p right middle trigger finger release (DOS: 04/20/22) Previously status post right trigger thumb release (03/20/17) Flexor ten osynovitis of finger [id number] M65.849 Right long finger flexor tendinitis (CSI: 08/16/2022) [id number] MYRON THORNTON MD [facility] [address] [address] 09/22/2022 15:26:31 09/22/2022 16:42:00 Postoperative care [id number] Z48.89 5 months s/p right middle trigger finger release (DOS: 04/20/22) Previously status post right trigger thumb release (03/20/17) Flexor ten osynovitis of finger [id number] M65.849 Right long finger flexor tendinitis (CSI: 08/16/2022) [id number] TY VARGAS PA-C [facility] [address] [place] [address] 12/27/2022 14:12:24 12/27/2022 15:23:59 Edema of lower extremity [id number] R60.0 Patient's symptoms today consistent likely with variation of venous insufficie ncy of the right leg given persistent swelling of the right lower leg with dependency . History of venous stripping in the past in the right lower extremity. Plan: Would like for patient to be evaluated by Dr. Reza for further evaluation regarding possible peripheral vascular issue. Lumbar spine pathology cannot be excluded given flareups with right-side d sciatica but do not think that this would cause persistent swelling of the right lower leg. [id number] Jerod Del [facility] [address] [place] [address] 05/22/2023 15:53:59 05/22/2023 17:28:21 Bilateral osteoarthritis of knees [id number] M17.0 [id number] EMMANUELLE Andrew MD [facility]EDI [facility] [address] [place] [address] 11/21/2023 07:50:13 11/21/2023 08:43:17 Pain of left knee joint [id number] M25.562 Osteoarthr itis of left knee joint [id number] 11048 M17.12 Hide he does have advanced degenerati ve changes in her left knee and has failed conservati ve treatments to this point. She is likely benefit from TKA, although there is certainly no urgency. From her standpoint , she is hoping to delay surgery until total time this summer. To that end, I would recommend a repeat steroid injection today, which she is amenable to. She will keep a close eye on her blood sugars in the interim. I would also recommend continued judicious use of over-the-c ounter NSAIDs. We will arrange for follow-up in 3 months time for repeat CSI, and long-leg x-ray. We can likely discuss definitive surgical scheduling at that point. Type 2 zulma betes mellitus without complication [id number] E11.9 A1c 6.6 by patient report. Currently maintained on metformin, Ozempic, and Jardiance. We will recheck her A1c and fructosami ne prior to surgical scheduling . Coronary arteriosclerosis [id number] I25.10 Recent history of PCI x 4 in March 2023.. She is followed by Dr. Pinedo. She is currently maintained on Plavix, and must remain on antiplatel et agents uninterrup joey for 1 year from her stent placement. She will be eligible for TKA in March, as result. We will need definitive cardiology clearance from Dr. Pinedo prior to surgical scheduling . History of percutaneous coronary intervention [id number] Z98.890 [id number] EMMANUELLE Andrew MD [facility] [address] [address] 02/20/2024 07:55:37 02/20/2024 09:45:24 Pain of left knee joint [id number] 59522 M25.562 Osteoarthr itis of left knee joint [id number] 88184 M17.12 ASSESSMENT : DJD {{LEFT* RI GHT BILATE RAL}} knee PLAN:The patient has end stage osteoarthr itis of the {{LEFT* RI GHT BILATE RAL}} knee. The patient has failed > 3 months of conservati ve measures including NSAIDs, activity modificati on, corticoste roid injections , etc. The patient has pain daily, affecting his/her activities of daily living, and interferin g with sleep. They wish to proceed with total knee arthroplas ty, which I believe to be reasonable . Per ACR/AAHKS guidelines , arthroplas ty in patients with moderate to severe arthritis should not be delayed simply to engage in additional nonoperati ve treatment options. We reviewed the risks, benefits, and alternativ es to knee replacemen t surgery. We discussed the risk of infection, fracture, neurovascu lar injury, chronic pain, stiffness, instabilit y, aseptic loosening, and component wear. We discussed the risk of medical complicati ons, including but not limited to, VTE, pulmonary complicati ons, cardiac complicati ons, and stroke. All questions were answered to the best of my ability. She does remain high risk for complicati ons with surgery due to comorbidit ies including CAD status post PCI, and diabetes. The patient expresses understand ing and awareness of PCM services, including but not limited to potential cost sharing responsibi lities; only one [facility] can furnish and bill for PCM services during a calendar month, and the patient can stop these services at any time. The patient understand s and has verbally consented to accept PCM services and has been provided a copy of a written explanatio n of this service today. Surgery date: {{ 04-17-24# }}Surgery location: {{[facility]}} ecial equipment: {{ Beatriz , press-fit# }}Pre-op clearance: {{PASS* LC labs PCP Omar Kendrick, WAQAR}}Othe r medical clearance: {{none Lisandro lopez, Shahida#} }DVT prophylaxi s: Resume ASA/Plavix , TEDAdmissi on status: {{INPATIEN T OUTPATIE NT* NONE}} Discharge plan: {{no/SDS o vernight* 2 night > 2 night}} admissionP T: {{home health SNF direct to outpatient [facility]*}} Allergies: {{none PCN other*}}S kin testing: {{Yes No*} } Type 2 zulma betes mellitus without complication [id number] E11.9 A1c 6.6 by patient report. Currently maintained on metformin, Ozempic, and Jardiance. We will recheck her A1c and fructosami ne prior to surgical scheduling . Coronary arteriosclerosis [id number] I25.10 Recent history of PCI x 4 in March 2023.. She is followed by Dr. Pinedo. She is currently maintained on Plavix, and must remain on antiplatel et agents uninterrup joey for 1 year from her stent placement. She will be eligible for TKA in March, as result. She has already seen Dr. Shahida, and been cleared for surgical interventi on. We will obtain definitive clearance from his office, and follow any recommenda tions perioperat ively. Plan will be to withhold her Plavix for 7 days prior to surgery, and restart her on ASA/Plavix postoperat ively for DVT prophylaxi s. For history of coronary artery disease does increase her risk for cardiac events following elective TKA, including MD, arrhythmia s, and sudden cardiac . History of percutaneous coronary intervention [id number] Z98.890 [id number] Mekhi Weathers [facility] [address] [address] 04/11/2024 13:40:11 04/12/2024 10:02:00 [id number] Mekhi Weathers SURGERY SCHEDULE [address] [place] [address] 04/17/2024 14:53:45 04/24/2024 14:00:07 [id number] ANUJ KIRAN PA-C [facility] [address] [address] 05/08/2024 10:28:14 05/08/2024 11:14:52 History of total knee arthroplasty [id number] 105 Z96.652 Patient is 3 weeks status post left TKA and doing very well at this time. No complaints or concerns today. She has transition to outpatient physical therapy with [facility] in [place] . Highly encouraged to continue to focus on range of motion over strength. She may incorporat e prone hangs. Minimize ambulation . She is okay to get the incision wet but do not submerge. She may discontinu e JOEY hose. Currently not using any assistive device for ambulation . Radiograph s obtained today reveal intact TKA implants in good positionin gand alignment, with no evidence of loosening, lysis or RLLs.Physi ugo exam reveals good ROM without pain and a well-heale d surgicalin cision.We reviewed the expected progressio n of recovery and rehabilita tion from a total knee replacemen t andexplain ed that any symptoms such as nighttime aching and morning stiffness are due to softtissue weakness, are within expectatio ns at this point post-op and should resolve over time asthey build strength and stamina. At this time, the patient is encouraged to gradually resumeacti vities of daily living as comfortabl e, including walking for increasing periods of time,swimm ing, and driving. The patient should begin working on strengthen ing the leg; weemphasiz ed the importance of continuing their HEP to build and maintain strength. Wereviewed scar massages and tissue mobilizati on. RTC in 3 weeks for routine 6 week post op follow up with radiograph s. [id number] ANUJ KIRAN [facility]-C [facility] [address] [place] [address] 05/29/2024 09:12:59 05/29/2024 10:24:40 History of total knee arthroplasty [id number] 105 Z96.652 Patient now 6 weeks status post left TKA. She continues to do very well with no complaints or concerns. Range of motion goals have been met. Okay to submerge incision. Resume normal activities as tolerated. Patient works at [employer] and has plans to return to work in [place] 4 weeks which I do think would be feasible at this time. Radiograph s obtained today reveal intact TKA implants in good positionin gand alignment, with no evidence of loosening, lysis or RLLs.Physi ugo exam reveals good ROM without pain and a well-heale d surgicalin cision.We reviewed the expected progressio n of recovery and rehabilita tion from a total knee replacemen t andexplain ed that any symptoms such as nighttime aching and morning stiffness are due to softtissue weakness, are within expectatio ns at this point post-op and should resolve over time asthey build strength and stamina. At this time, the patient is encouraged to gradually resumeacti vities of daily living as comfortabl e, including walking for increasing periods of time,swimm ing, and driving. The patient should begin working on strengthen ing the leg; weemphasiz ed the importance of continuing their HEP to build and maintain strength. Wereviewed scar massages and tissue mobilizati on. I will see her back in approximat e 4 weeks to determine to check on her progress and see how she is feeling about her return to work status. Long-leg radiograph s will be obtained. [id number] ANUJ KIRAN PA-C [facility] [address] [place] [address] 06/26/2024 08:29:00 06/26/2024 09:18:34 History of total knee arthroplasty [id number] 105 Z96.652 Patient now 9 weeks status post left TKA. Over the weekend she had increased her activity with some home chores had a slight increase in some discomfort but otherwise still doing well at this time. No restrictio ns, she may return to work in 3 weeks at this time. She works at [employer]. She is planning tentativel y to schedule her contralate ral knee next March. Radiograph s obtained today reveal intact TKA implants in good positionin g andalignme nt. Physical exam reveals good ROM without pain and a well-heale d surgical incision.W e reviewed the expected progressio n of recovery and rehabilita tion. At this time,the patient is encouraged to continue all activities of daily living as comfortabl e. The patientsho uld continue maintainin g strength bilateral legs with HEP.Patien t will return to clinic in 1 year or sooner if symptoms warrant. [id number] ANUJ KIRAN PA-C [facility] [address] [place] [address] 07/22/2024 07:53:25 07/22/2024 08:21:23 History of total knee arthroplasty [id number] 105 Z96.652 Zehra he is now 14 weeks status post left TKA. Overall, she is doing very well at this time. No complaints concerns. She may return to work with no restrictio ns. Dental prophylaxi s reviewed. She may continue with NSAIDs/Tyl enol for any residual pain or swelling. Radiograph s obtained today reveal intact TKA implants in good positionin gand alignment, with no evidence of loosening, lysis or RLLs.Physi ugo exam reveals good ROM without pain and a well-heale d surgicalin cision.We reviewed the expected progressio n of recovery and rehabilita tion from a total knee replacemen t andexplain ed that any symptoms such as nighttime aching and morning stiffness are due to softtissue weakness, are within expectatio ns at this point post-op and should resolve over time asthey build strength and stamina. At this time, the patient is encouraged to gradually resumeacti vities of daily living as comfortabl e, including walking for increasing periods of time,swimm ing, and driving. The patient should begin working on strengthen ing the leg; giorgio ed the importance of continuing their HEP to build and maintain strength. Wereviewed scar massages and tissue mobilizati on. She may return in 1 year for routine radiograph s. She has plans to tentativel y schedule her contralate ral knee in March. Health Concerns Section Related Observation LastModified by Organization Detai ls LastModified Time None Recorded Concern Status LastModified by Organization Details LastModified Time None Recorded Advance Directives Directive None Recorded Payers Encounter Date Sequence Insurance Name Policy Number Policy Gregorio Covered Member ID Gregorio Member ID Guarantor Name 04/17/2024 1 [place] [id number] Zehra S Sanor [id number] Zehra S Sanor 05/08/2024 1 [place] [id number] Zehra S Sanor [id number] Zehra S Sanor 05/29/2024 1 [place] [id number] Zehra S Sanor [id number] Zehra S Sanor 06/26/2024 1 [place] [id number] Zehra S Sanor [id number] Zehra S Sanor 07/22/2024 1 [place] [id number] Zehra S Sanor [id number] Zehra S Sanor Notes Date Note Type Note Provider Name and Address Organization Details Recorded Time 05/08/2024 text/html 05/08/24Patient i s {{ 3#}} weeks s/p {{L* R B}} TKA. Surgery date 04/17/24Pain is {{completely better improving* worse}}Currently taking {{no* <3 3-4 >4}} doses per day of narcotic.Ambulati ng with {{wheelchair walk er cane no assistive device*}}PT: {{[facility] home health outpatient * HEP}} Denies fevers, chills, or wound drainage.They {{do do not*}} request a refill of pain medicine. ANUJ KIRAN PA-C [address] [place], [address], [facility] 05/08/2024 11:15:32 05/29/2024 text/html 05/27/24Patient i s {{ 6#}} weeks s/p {{L* R B}} TKA. DOS 04/17/24Pain is {{completely better improving* worse}}Currently taking {{no <3 3-4 >4}} doses per day of narcotic.Ambulati ng with {{wheelchair walk er cane no assistive device*}}PT: {{[facility] home health outpatient * HEP}} Denies fevers, chills, or wound drainage.They {{do do not*}} request a refill of pain medicine. 05/08/24Patient is {{ 3#}} weeks s/p {{L* R B}} TKA. Surgery date 04/17/24Pain is {{completely better improving* worse}}Currently taking {{no* <3 3-4 >4}} doses per day of narcotic.Ambulati ng with {{wheelchair walk er cane no assistive device*}}PT: {{[facility] home health outpatient * HEP}} Denies fevers, chills, or wound drainage.They {{do do not*}} request a refill of pain medicine. ANUJ KIRAN PA-C [address] [place], [address], [facility] 05/29/2024 10:25:59 06/26/2024 text/html 06/26/24Patient i s {{ 9#}} weeks s/p {{L* R B}} TKA. DOS 04/17/24Pain is {{completely better improving* worse}}. Rates the pain 5/10 today.Currently taking {{no* <3 3-4 >4}} doses per day of narcotic.Ambulati ng with {{wheelchair walk er cane no assistive device*}}PT: {{[facility] home health outpatient * HEP}}. Going well Denies fevers, chills, or wound drainage.They {{do do not*}} request a refill of pain medicine. Operative cultures {{Negative Positi ve Not Obtained}} 05/27/24Patient is {{ 6#}} weeks s/p {{L* R B}} TKA. DOS 04/17/24Pain is {{completely better improving* worse}}Currently taking {{no <3 3-4 >4}} doses per day of narcotic.Ambulati ng with {{wheelchair walk er cane no assistive device*}}PT: {{[facility] home health outpatient * HEP}} Denies fevers, chills, or wound drainage.They {{do do not*}} request a refill of pain medicine. 05/08/24Patient is {{ 3#}} weeks s/p {{L* R B}} TKA. Surgery date 04/17/24Pain is {{completely better improving* worse}}Currently taking {{no* <3 3-4 >4}} doses per day of narcotic.Ambulati ng with {{wheelchair walk er cane no assistive device*}}PT: {{[facility] home health outpatient * HEP}} Denies fevers, chills, or wound drainage.They {{do do not*}} request a refill of pain medicine. ANUJ KIRAN PA-C [address] [place], [address], [facility] 06/26/2024 09:19:24 07/22/2024 text/html 07/22/24Patient is {{ 14#}} weeks s/p {{L* R B}} TKA. DOS 04/17/24Pain is {{completely better improving* worse}}Currently taking {{no* <3 3-4 >4}} doses per day of narcotic.Ambulati ng with {{wheelchair walk er cane no assistive device*}}PT: {{[facility] home health outpatient HEP*}} Denies fevers, chills, or wound drainage. They {{do do not*}} request a refill of pain medicine. Operative cultures {{Negative Positi ve Not Obtained*}} 06/26/24Patient is {{ 9#}} weeks s/p {{L* R B}} TKA. DOS 04/17/24Pain is {{completely better improving* worse}}. Rates the pain 03/22 today.Currently taking {{no* <3 3-4 >4}} doses per day of narcotic.Ambulati ng with {{wheelchair walk er cane no assistive device*}}PT: {{[facility] home health outpatient * HEP}}. Going well Denies fevers, chills, or wound drainage.They {{do do not*}} request a refill of pain medicine. Operative cultures {{Negative Positi ve Not Obtained}} 05/27/24Patient is {{ 6#}} weeks s/p {{L* R B}} TKA. DOS 04/17/24Pain is {{completely better improving* worse}}Currently taking {{no <3 3-4 >4}} doses per day of narcotic.Ambulati ng with {{wheelchair walk er cane no assistive device*}}PT: {{[facility] home health outpatient * HEP}} Denies fevers, chills, or wound drainage.They {{do do not*}} request a refill of pain medicine. 05/08/24Patient is {{ 3#}} weeks s/p {{L* R B}} TKA. Surgery date 04/17/24Pain is {{completely better improving* worse}}Currently taking {{no* <3 3-4 >4}} doses per day of narcotic.Ambulati ng with {{wheelchair walk er cane no assistive device*}}PT: {{[facility] home health outpatient * HEP}} Denies fevers, chills, or wound drainage.They {{do do not*}} request a refill of pain medicine. ANUJ KIRAN PA-C [address] [place], [address], [facility] 07/22/2024 09:51:17 OBGyn Episode No OBEpisode recorded.
[2025-03-03 18:22] LABS: Chloride 107 mmol/L (98-107); Sodium 138 mmol/L (136-145)
[2025-03-03 18:23] LABS: Potassium 4.5 mmoL/L (3.5-5.1)
[2025-03-03 18:25] LABS: Blood Urea Nitrogen 27 mg/dl (7-17); Estimated Glomerular Filt Rate 73 ml/min (>60); GFR (African American) 89 ML/MIN (>60)
[2025-03-03 18:26] LABS: Anion Gap 13.5 mEq/L (5-15); Calcium 8.8 mg/dl (8.4-10.2); Carbon Dioxide 22 mmol/L (22.0-30.0); Glucose 98 mg/dl (74-100)
== END 2025-03-03 23:59 | disposition home or self-care (01) ==
LOC: LAB 15:40
PROVIDERS: PCP Nurse Practitioner Family; Visit Provider Nurse Practitioner Family
DX: E87.5 Hyperkalemia (principal)
CPT/HCPCS: 36415; 80048

== ENCOUNTER 2025-03-10 16:43 | Outpatient (CLI) | payer BC, SELFPAY ==
--- NOTE | 2025-03-10 16:47 | XR_ITS ---
PROCEDURE INFORMATION: Exam: XR Right Foot Complete; Alignment Exam date and time: 03/10/2025 4:48 PM Age: 59 years old Clinical indication: Injury or trauma; Other: Steer stepped on R foot; Other: Pain; Additional info: Right foot pain TECHNIQUE: Imaging protocol: Radiologic exam of the right foot. Views: 3 or more views. COMPARISON: CR XR FOOT WT BEARING RT 3V 11/16/2023 2:01 PM FINDINGS: Bones/joints: Status post fusion 2nd PIP joint unchanged. 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 Soft tissues: Normal. IMPRESSION: Stable examination. Status post fusion 2nd PIP joint unchanged. 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
== END 2025-03-10 23:59 | disposition home or self-care (01) ==
LOC: RAD 16:44
PROVIDERS: PCP Nurse Practitioner Family; Visit Provider Podiatrist
DX: M79.671 Pain in right foot (principal)
CPT/HCPCS: 73630

== ENCOUNTER 2025-03-24 09:44 | Outpatient (CLI) | payer BC, SELFPAY | END 2025-03-24 23:59 | disposition home or self-care (01) | LOC: LAB.DROPOF 03-25 14:01 | PROVIDERS: PCP Student in an Organized Health Care Education/Training Program; Visit Provider Student in an Organized Health Care Education/Training Program | DX: L97.511 Non-pressure chronic ulcer of other part of right foot limited to breakdown of skin (principal) | CPT/HCPCS: 87070; 87077; 87186; 87205 ==

== ENCOUNTER 2025-03-25 10:06 | Inpatient (IN) | payer BC, SELFPAY ==
[2025-03-25 10:18] VITALS: BP 140/56; PULSE 84; RESP 19; TEMP 36.7; O2SAT 99; BMI 28.8
--- OUTSIDE RECORDS SUMMARY | 2025-03-25 10:32 | XMS_ITS | Data Portability ---
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 Plan of Treatment Reminders Order Date Submit Date Provider Last Modified By Organization Details Last Modified Time Details Appointments None recorded. Lab None recorded. Referral None recorded. Procedures None recorded. Surgeries None recorded. Imaging XR, knee, 3 view 024 [place] Not available 4 09:23:26 Medication Orders Medrol (Duglas) 4 mg tablets in a dose pack 024 [facility] [address] [facility] [address], [address] [place] [address] [place], [address], 4 09:19:12 Patient TargetsNo targets recorded. Patient InstructionsNo instructions recorded. Reason for Referral None Reported. Results Created Date Observation Date Name Description Value Unit Range Abnormal Flag Note LastModifiedBy Organization Detail LastModifiedTime 05/08/20 24 05/08/2024 XR, knee, 3 view [place] [facility] [place] [address] [place] [address] Patien t Name: ZEHRA kumar : 1964 Patimirta kumar Orderi ng Provid er: ANUJ KIRAN EXAM DATE: 2023 EXAM: XR LT KNEE 3 VIEWS COMPAR JOSÉ: 11/21/19 HISTOR Y: Follow -up of prior surger mikeMaria Dolores MCELROY GS: There has been interv al placem [...] By: Trey mar MD on 10:[address] [facility] [address] , [place], [address], 05/08/2024 11:15:38 05/29/20 24 05/29/2024 XR, knee, 3 view [facility] [address] [facility] [place] [address] Patien t Name: ZEHRA ESPINO Patimirta t : 1964 Patien t [facility] ng Provid er: ANUJ KIRAN EXAM DATE: 2023 EXAM: XR LT KNEE 3 VIEWS COMPAR JOSÉ: HISTOR Y: Follow -up of prior surger mikeMaria Dolores MCELROY GS: Again seen is a left knee [...] By: Trey mar MD on 9:[address] [facility] [address] , [place], [address], 05/29/2024 10:05:59 06/26/20 24 06/26/2024 XR, joint , multi ple, 1 view [facility] [address] [place] [address] Patimirta t Name: ZEHRA kumar : 1964 Romeo kumar Krystlei ng Provid er: ANUJ KIRAN EXAM DATE: 2023 EXAM: XR LONG LEG LEFT/ JOINT SURVEY COMPAR JOSÉ: HISTOR Y: Follow -up of prior surger y. FINDIN GS: There is a left total knee [...] By: Trey mar MD on 8:45 AM [email or web address] [facility] Radiology [place] [address] , [place], [address], 06/26/2024 09:02:34 07/22/20 24 07/22/2024 XR, knee, 3 view [facility] [address] [place] [address] Patimirta t Name: ZEHRA kumar : 1964 Patimirta kumar Hossein ng Provid er: ANUJ KIRAN EXAM DATE: [...] MD on 07/22/20 24 9:03 AM [email or web address] [facility] Radiology [place] [address] , [place], [address], 07/22/2024 10:07:23 Result Notes None recorded. Problems Name Problem SNOMED Code Status Onset Date Resolution Date Notes Provider Name and Address Organization Details Recorded Time Radial styloid tenosynov itis 18653458 Active 2014 From Automated Load;Prov ider: Myron Thornton;S tatus: Active Not Available [facility] 6 08:50:20 Idiopathi c osteoarth ritis 603320907 Active 2014 From Automated Load;Prov ider: Myron Thornton;S tatus: Active Not Available [facility] 6 08:50:20 Skin sensation disturban ce 39308143 Active 2014 From Automated Load;Prov ider: Myron Thornton;S tatus: Active Not Available [facility] 6 08:50:20 Finding of sensation of skin Active 2014 From Automated Load;Prov ider: Myron Thornton;S tatus: Active Not Available [facility] 6 08:50:20 Snapping thumb syndrome 31283090 Active 2014 From Automated Load;Prov ider: Myron Thornton;S tatus: Active Not Available [facility] 6 08:50:20 Injury of tendon of the rotator cuff of shoulder 817027720 Active 2018 PEDRO CHAVES II, PT, DPT [address] [place], [address] , [facility] 9 07:20:38 Muscle weakness 74500625 Active 2018 PEDRO CHAVES II PT, DPT [address] [place] [address], [address] , [facility] 9 07:20:39 Spasm 58001993 Active 2018 PEDRO CHAVES II, PT, DPT [address] [place] [address], [address] , [facility] 9 07:20:40 Muscular incoordin ation 64574989 Active 2018 PEDRO CHAVES II, PT, DPT [address] [place] [address], [address] , [facility] 9 07:20:41 History of operative procedure on shoulder 569748934 Active 2018 PEDRO CHAVES II, PT, DPT [address] [place] [address], [address] , [facility] 9 11:27:20 Biceps tendiniti s 131043599 Active 2018 PEDRO CHAVES II, PT, DPT [address] [place] [address], [address] , [facility] 9 11:27:20 History of arthrosco py of knee joint 652601956 Active 2018 Gigi caal [facility] 9 16:25:08 Abnormal gait 26228025 Active 2018 Gigi caal [facility] 9 16:25:22 Coronary arteriosc lerosis 57182980 Active 2023 EMMANUELLE Andrew MD [address] [place] [address], [address] , [facility] 4 17:48:09 History of percutane ous coronary intervent ion 583212952 Active 2023 EMMANUELLE Andrew MD [address] [place] [address], [address] , [facility] 4 17:48:10 Type 2 diabetes mellitus without complicat ion 948582568 Active 2023 EMMANUELLE Andrew MD [address] [place], [address] , [facility] 4 17:48:11 Osteoarth ritis of left knee joint 57920608961 9109 Active 2023 EMMANUELLE Andrew MD [address] [place], [address] , [facility] 4 17:48:13 Problem Notes None recorded. Procedures Surgical History Date Name Laterality Status Provider Name and Address Organization Details Recorded Time 4 PCM Visit completed Mekhi Weathers [facility] 04/11/2024 14:50:11 4 Injection Joint/Bursa, Major completed Holly Umanzor [facility] 11/21/2023 08:46:28 3 Injection Joint/Bursa, Major completed Jerod Del Castillo [facility] 06/23/2023 07:49:10 3 Injection Joint/Bursa, Second, Major completed Rosalind Ferreira [facility] 05/22/2023 17:27:54 2 Injection Trigger Finger Ortho completed MYRON THORNTON MD [address] [place], [address], [facility] 08/16/2022 09:40:25 9 PT Manual Therapy completed PEDRO CHAVES II, PT, DPT [address] [place], [address], [facility] 04/23/2019 09:22:49 9 PT Therapeutic Exercise completed PEDRO CHAVES II, PT, DPT [address] [place], [address], [facility] 04/23/2019 09:22:36 9 PT Manual Therapy completed PEDRO CHAVES II, PT, DPT [address] [place], [address], [facility] 04/19/2019 09:38:21 9 PT Therapeutic Exercise completed PEDRO CHAVES II, PT, DPT [address] [place], [address], [facility] 04/19/2019 09:38:09 9 PT Manual Therapy completed PEDRO CHAVES II, PT, DPT [address] [place], [address], [facility] 04/19/2019 14:52:48 9 PT Therapeutic Exercise completed PEDRO CHAVES II, PT, DPT [address] [place], [address], [facility] 04/19/2019 14:52:18 9 PT Manual Therapy completed PEDRO CHAVES II, PT, DPT [address] [place], [address], [facility] 04/11/2019 13:14:32 9 PT Therapeutic Exercise completed PEDRO CHAVES II, PT, DPT [address] [place], [address], [facility] 04/11/2019 13:14:26 9 PT Evaluation - Moderate Complexity completed PEDRO CHAVES II, PT, DPT [address] [place], [address], [facility] 03/27/2019 11:19:26 9 PT Therapeutic Exercise completed PEDRO CHAVES II, PT, DPT [address] [place], [address], [facility] 03/27/2019 11:19:48 9 Suture/Staple removal completed Gian LOAIZA PA-C [address] [place], [address], [facility] 03/17/2019 16:37:13 9 PT Manual Therapy completed PEDRO CHAVES II, PT, DPT [address] [place], [address], [facility] 02/05/2019 11:48:02 9 PT Therapeutic Exercise completed PEDRO CHAVES II, PT, DPT [address] [place], [address], [facility] 02/05/2019 11:48:00 9 PT Therapeutic Exercise completed PEDRO CHAVES II, PT, DPT [address] [place], [address], [facility] 02/03/2019 21:33:58 9 PT Therapeutic Exercise completed PEDRO CHAVES II, PT, DPT [address] [place], [address], [facility] 01/23/2019 10:48:24 9 PT Therapeutic Exercise completed PEDRO CHAVES II, PT, DPT [address] [place], [address], [facility] 01/16/2019 08:36:06 9 PT Manual Therapy completed PEDRO CHAVES II, PT, DPT [address] [place], [address], [facility] 01/09/2019 10:18:54 9 PT Therapeutic Exercise completed PEDRO CHAVES II, PT, DPT [address] [place], [address], [facility] 01/09/2019 10:18:36 9 PT Manual Therapy completed PEDRO CHAVES II, PT, DPT [address] [place], [address], [facility] 01/01/2019 14:17:20 9 PT Therapeutic Exercise completed PEDRO GOODWINT II, PT, DPT [address] [place], [address], [facility] 01/01/2019 14:17:07 9 PT Manual Therapy completed PEDRO GOODWINT II, PT, DPT [address] [place], [address], [facility] 01/03/2019 08:09:40 9 PT Therapeutic Exercise completed PEDRO GOODWINT II, PT, DPT [address] [place], [address], [facility] 01/03/2019 08:09:27 9 PT Therapeutic Exercise completed PEDRO CHAVES II, PT, DPT [address] [place], [address], [facility] 12/20/2018 11:07:47 9 PT Evaluation - Moderate Complexity completed PEDRO CHAVES II, PT, DPT [address] [place], [address], [facility] 12/20/2018 07:13:15 9 PT Therapeutic Exercise completed PEDRO CHAVES II, PT, DPT [address] [place], [address], [facility] 12/20/2018 07:13:36 7 Op Note completed MYRON THORNTON MD [address] [place], [address], [facility] 03/20/2017 08:16:54 Imaging Results Imaging Date Name Status LastModified by Organ ation Details LastModified Time 05/08/2024 XR, knee, 3 view completed [address] Radiology [place] [address] , [place], [address], 05/08/2024 11:15:38 05/29/2024 XR, knee, 3 view completed [address] Radiology [place] [address] , [place], [address], 05/29/2024 10:05:59 06/26/2024 XR, joint, multiple, 1 view completed [address] Radiology [place] [address] , [place], [address], 06/26/2024 09:02:34 07/22/2024 XR, knee, 3 view completed [address] Radiology [place] [address] , [place], [address], 07/22/2024 10:07:23 Procedure Notes None recorded. Medical Equipment None Reported. Allergies Allergen ID Allergen Name Allergen Category Reaction Reaction Severity Criticality Documentation Date Start Date Code Code System Note Provider Name and Address Organization Details Recorded Time 919132 lisinopri l medicatio n cough Not available Not available 11/29/2018 78359 RxNorm Jerod Del Castillo [facility] 9 09:54:54 Medications Name Sig Start Date [...] Not Available Not Available No t Available Delmar 10 mg-325 mg tablet Take 1 tablet [...] Updated DateTime 05/08/2024 175.26 cm 26.4 kg/m2 97024.03 g 0 Lilia Rashid [facility] 05/08/2024 10:57:45 Date Recorded Body height Body mass index (BMI) Body weight Pain severity - 0-10 verbal numeric rating [Score] - Reported Systolic blood pressure Diastolic blood pressure Provider Name and Address Organization Details Last Updated DateTime 4 175.26 cm 26.4 kg/m2 59506.0 3 g 2 125 mm[Hg] 80 mm[Hg] Mekhi Weathers [facility] 4 09:32:10 Date Recorded Body height Provider Name an d Address Organization Details Last Updated DateTime 06/26/2024 175.26 cm Bola Cardonard [facility] 06/26/2024 08:46:55 Date Recorded Body height Body mass index (BMI) Body weight Provider Name and Address Organization Details Last Updated DateTime 07/22/2024 175.26 cm 26.4 kg/m2 71581.03 g Holly Umanzor [facility] 07/22/2024 08:02:03 Social History Question Answer Notes LastModified by Organizat ion Details LastModified Time Tobacco Smoking Status Former Smoker Smita Kohli sean [facility] 03/03/2017 15:28:02 Accident Related Injury Yes [email or web address] Information not available 03/03/2017 What Is Your Level Of Caffeine Consumption? Moderate [email or web address] Information not available 03/03/2017 Which Of Your Hands Is Dominant? Right [email or web address] Information not available 03/03/2017 Which Hand Is Involved? Right [email or web address] Information not available 03/03/2017 Rate The Severity Of Your Symptoms: (0-10 With 0=none And 10=worst Possible) 3 [email or web address] Information not available 02/05/2019 When Are Your Symptoms The Worst? Night Day Neither Neither [email or web address] Information not available 03/03/2017 Date Of Injury: 06/11/2015 [email or web address] Informati on not available 03/03/2017 Have You Been Treated For This Problem Before? Yes [email or web address] Information not available 03/03/2017 How Long Have You Had These Symptoms? 06/11/2015 [email or web address] Information not available 03/03/2017 Will This Be Filed As Workers' Compensation? Yes Information not available 03/03/2017 What Was The Date Of Your Most Recent Tobacco Screening? 05/13/2019 Information not available 12/31/2019 Has Tobacco Cessation Counseling Been Provided? No [email or web address] Information not available 03/03/2017 Work Related Injury? Yes [email or web address] Information not available 03/03/2017 Sex: Unknown Functional Status Question Answer Note LastModified by Organizat ion Details LastModified Time Do you use any illicit or recreational drugs? No [email or web address] Information not available 03/03/2017 What is your level of alcohol consumption? Occasional Information not available 03/03/2017 Are you currently employed? Yes [email or web address] Information not available 03/03/2017 What is your occupation? [employer] [email or web address] Information not available 03/03/2017 Mental Status None recorded. Family History Relationship Description Onset Age of this Age Resolved Age Notes LastModified by Organization Details LastModified Time Father No current problems or disability [email or web address] Not available 03/03 15:27:56 Mother No current problems or disability [email or web address] Not available 03/03 15:27:56 Medical History Condition Response Allergies/Hayfever N Anxiety/Depression N Other N Gout N Thyroid Disease N Kidney Stones N Heart Conditions N Hernia N Migraines N COPD N Glaucoma N Pneumonia N Skin Problems N Immune System Disorder N Anesthesia Complications N Heart Attack ([place]) N Mental Illness N Neurological Problems N [...] SNOMED-CT Code Diagnosis ICD10 Code Diagnosis Note [id number] MYRON THORNTON MD [facility] [place] [address] [address] 03/03/2017 14:23:32 03/03/2017 16:45:25 Snapping thumb syndrome 75651135 M65.311 Right trigger thumb Osteoarthr osis of the carpometacarpal joint of the thumb 40772624 M18.11 Previous x-rays of the right wrist dated 07/30/15 demonstrat e mild arthritic changes of the thumb CMC joint (CSI: 38/16) [id number] MYRON THORNTON MD SURGERY SCHEDULE [address] [place] [address] 03/20/2017 06:04:45 03/20/2017 06:10:21 [id number] MYRON THORNTON MD [facility] [place] [address] [address] 03/31/2017 15:16:43 03/31/2017 16:07:47 Postoperative care 277348550 Z48.89 2 weeks status post right trigger thumb release (03/20/17) [id number] MYRON THORNTON MD [facility] [place] [address] [address] 05/05/2017 15:10:04 05/05/2017 16:51:23 Postoperative care 589562890 Z48.89 6 weeks status post right trigger thumb release (03/20/17) [id number] BETO VALENTE MD [facility] [place] [address] [place] [address] 11/29/2018 09:31:09 11/29/2018 12:08:29 Pain of right shoulder joint 6197866353 7371221 M25.478 [id number] PEDRO CHAVES II, PT, DPT PHYSICAL THERAPY / HAND THERAPY [place] [address] [place] [address] 12/06/2018 13:43:55 12/20/2018 11:22:54 Injury of tendon of the rotator cuff of shoulder 805143654 S46.091D Muscle weakness 25934420 M62.81 Spasm 78907118 R25.2 Muscular incoordination 03407680 R27.8 [id number] PEDRO CHAVES II, PT, DPT PHYSICAL THERAPY / HAND THERAPY [facility] [address] [address] 12/20/2018 10:12:44 12/20/2018 11:46:47 Injury of tendon of the rotator cuff of shoulder 012662612 S46.091D Muscle weakness 37640959 M62.81 Muscular incoordination 27721030 R27.8 Spasm 43487831 R25.2 [id number] PEDRO CHAVES II, PT, DPT PHYSICAL THERAPY / HAND THERAPY [address] [place] [address] 12/28/2018 08:00:23 01/03/2019 10:08:18 Injury of tendon of the rotator cuff of shoulder 773002132 S46.091D Muscle weakness 12718439 M62.81 Muscular incoordination 76815734 R27.8 Spasm 34531623 R25.2 [id number] PEDRO CHAVES II, PT, DPT PHYSICAL THERAPY / HAND THERAPY [address] [place] [address] 01/01/2019 10:25:25 01/01/2019 12:32:38 Muscle weakness 91054010 M62.81 Injury of tendon of the rotator cuff of shoulder 147210595 S46.091D Muscular incoordination 03440076 R27.8 Spasm 84233886 R25.2 [id number] BETO VALENTE MD ORTHOPEDI [address] [place] [address] 01/01/2019 10:25:46 01/01/2019 14:47:36 Pain of right shoulder joint 1847467451 2707349 M25.142 [id number] PEDRO CHAVES II PT, DPT PHYSICAL THERAPY / HAND THERAPY [address] [place] [address] 01/09/2019 08:53:33 01/09/2019 10:33:49 Muscle weakness 03827072 M62.81 Injury of tendon of the rotator cuff of shoulder 647462046 S46.091D Muscular incoordination 98188912 R27.8 Spasm 43590226 R25.2 [id number] PEDRO CHAVES II, PT, DPT PHYSICAL THERAPY / HAND THERAPY [address] [place] [address] 01/16/2019 07:16:12 01/16/2019 08:39:53 Injury of tendon of the rotator cuff of shoulder 006016402 S46.091D Muscle weakness 29020673 M62.81 Muscular incoordination 59668845 R27.8 Spasm 22580020 R25.2 [id number] PEDRO CHAVES II, PT, DPT PHYSICAL THERAPY / HAND THERAPY [place] [address] [place] [address] 01/23/2019 07:26:00 01/23/2019 13:26:37 Muscle weakness 00126672 M62.81 Injury of tendon of the rotator cuff of shoulder 484953231 S46.091D Muscular incoordination 77835921 R27.8 Spasm 20470159 R25.2 [id number] PEDRO CHAVES II, PT, DPT PHYSICAL THERAPY / HAND THERAPY [place] [address] [place] [address] 01/30/2019 07:24:14 02/04/2019 08:52:18 Injury of tendon of the rotator cuff of shoulder 549214534 S46.091D Muscle weakness 56198372 M62.81 Muscular incoordination 94041945 R27.8 Spasm 21611562 R25.2 [id number] PEDRO CHAVES II PT, DPT PHYSICAL THERAPY / HAND THERAPY [place] [address] [place] [address] 02/05/2019 10:45:34 02/05/2019 13:35:49 Muscle weakness 68278809 M62.81 Injury of tendon of the rotator cuff of shoulder 056004707 S46.091D Muscular incoordination 15219595 R27.8 Spasm 42260298 R25.2 [id number] BETO VALENTE MD [facility]THOPEDI [place] [address] [place] [address] 02/05/2019 11:48:20 02/05/2019 13:47:18 Pain of right shoulder joint 4408293256 2683053 M25.691 [id number] BETO VALENTE MD SURGERY SCHEDULE [address] [place] [address] 03/08/2019 09:13:57 03/08/2019 09:35:08 [id number] Gian LOAIZA PA-C [facility] [place] [address] [place] [address] 03/14/2019 14:42:11 03/14/2019 15:46:39 Postoperative care 086577271 Z48.89 [id number] PEDRO CHAVES II, PT, DPT PHYSICAL THERAPY / HAND THERAPY [place] [address] [address] 03/27/2019 07:51:23 03/27/2019 13:04:43 Muscle weakness 25608173 M62.81 History of operative procedure on shoulder 268840527 Z98.890 Biceps tendinitis 885871 007 M75.21 Muscular incoordination 73654520 R27.8 [id number] PEDRO CHAVES II, PT, DPT PHYSICAL THERAPY / HAND THERAPY [place] [address] [address] 04/11/2019 08:18:18 04/11/2019 09:23:31 Biceps tendinitis 535212564 M75.21 Muscle weakness 70169298 M62.81 Muscular incoordination 83074267 R27.8 History of operative procedure on shoulder 652012126 Z98.342 [id number] Gian LOAIZA [facility] [place] [address] 04/11/2019 08:18:50 04/11/2019 09:59:59 Postoperative care 036459113 Z48.89 [id number] PEDRO CHAVES II PT, DPT PHYSICAL THERAPY / HAND THERAPY [place] [address] [place] [address] 04/16/2019 08:21:36 04/22/2019 09:36:50 Biceps tendinitis 240449280 M75.21 Muscle weakness 65894884 M62.81 Muscular incoordination 89689814 R27.8 History of operative procedure on shoulder 129540851 Z98.347 [id number] PEDRO CHAVES II, PT, DPT PHYSICAL THERAPY / HAND THERAPY [place] [address] [address] 04/19/2019 08:45:02 04/19/2019 15:37:00 Biceps tendinitis 471043091 M75.21 Muscle weakness 43318045 M62.81 Muscular incoordination 45182515 R27.8 History of operative procedure on shoulder 486761475 Z98.510 [id number] BETO VALENTE MD [facility]THOPEDI [facility] [place] [address] [place] [address] 04/22/2019 14:42:50 05/06/2019 09:40:22 Tear of lateral meniscus of knee 297437813 S83.281A Pes anseri nus bursitis of right knee 6090511323 940858 M70.51 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 676460453 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 [id number] PEDRO CHAVES II, PT, DPT PHYSICAL THERAPY / HAND THERAPY [place] [address] [place] [address] 04/23/2019 08:45:17 04/23/2019 12:56:49 Biceps tendinitis 745998308 M75.21 Muscle weakness 62908969 M62.81 Muscular incoordination 09265600 R27.8 History of operative procedure on shoulder 099037473 Z98.382 [id number] PEDRO CHAVES II, PT, DPT PHYSICAL THERAPY / HAND THERAPY [place] [address] [place] [address] 04/26/2019 08:45:45 05/01/2019 10:20:49 Biceps tendinitis 119483756 M75.21 Muscle weakness 49771880 M62.81 History of operative procedure on shoulder 980607308 Z98.890 Muscular incoordination 37984408 R27.8 [id number] BETO VALENTE [facility] [address] [place] [address] 04/30/2019 08:04:05 04/30/2019 10:03:41 Pain in right knee 3973143244 68227 M25.860 [id number] PEDRO CHAVES II, PT, DPT PHYSICAL THERAPY / HAND THERAPY [place] [address] [place] [address] 04/30/2019 08:06:50 05/01/2019 13:41:09 Biceps tendinitis 686439579 M75.21 Muscle weakness 42110516 M62.81 Muscular incoordination 64724619 R27.8 History of operative procedure on shoulder 562106072 Z98.949 [id number] PEDRO CHAVES II, PT, DPT PHYSICAL THERAPY / HAND THERAPY [place] [address] [place] [address] 05/07/2019 08:17:18 05/07/2019 09:55:31 Biceps tendinitis 855822291 M75.21 Muscle weakness 62370868 M62.81 History of operative procedure on shoulder 188481100 Z98.890 Muscular incoordination 41005340 R27.8 [id number] PEDRO CHAVES II, PT, DPT PHYSICAL THERAPY / [facility] [place] [address] 05/10/2019 08:53:18 05/21/2019 08:14:13 Biceps tendinitis 647989250 M75.21 Muscle weakness 81940949 M62.81 Muscular incoordination 75245500 R27.8 History of operative procedure on shoulder 464678933 Z98.693 [id number] PEDRO CHAVES II PT, DPT PHYSICAL THERAPY / HAND THERAPY [place] [address] [place] [address] 05/13/2019 08:50:22 05/15/2019 08:31:09 Biceps tendinitis 769194233 M75.21 Muscle weakness 66055445 M62.81 Muscular incoordination 86874698 R27.8 History of operative procedure on shoulder 537306124 Z98.168 [id number] BETO VALENTE MD [facility] [place] [address] [place] [address] 05/13/2019 08:51:00 05/13/2019 15:21:13 Pain of right shoulder joint 6494971010 3367515 M25.151 [id number] PEDRO CHAVES II, PT, DPT PHYSICAL THERAPY / HAND THERAPY [facility] [address] [place] [address] 05/15/2019 08:27:39 05/15/2019 10:39:55 Biceps tendinitis 581844724 M75.21 Muscle weakness 70715507 M62.81 Muscular incoordination 68439210 R27.8 History of operative procedure on shoulder 553992846 Z98.248 [id number] PEDRO CHAVES II, PT, DPT PHYSICAL THERAPY / HAND THERAPY [place] [address] [place] [address] 05/20/2019 08:18:17 05/20/2019 17:28:12 Biceps tendinitis 170920010 M75.21 Muscle weakness 30880623 M62.81 Muscular incoordination 52809505 R27.8 History of operative procedure on shoulder 445607482 Z98.144 [id number] PEDRO CHAVES II, PT, DPT PHYSICAL THERAPY / [facility] [address] [place] [address] 05/23/2019 09:54:02 05/24/2019 10:32:36 Biceps tendinitis 365964035 M75.21 Muscle weakness 47252300 M62.81 Muscular incoordination 71088799 R27.8 Injury of tendon of the rotator cuff of shoulder 211777274 S46.091D [id number] PEDRO CHAVES II, PT, DPT PHYSICAL THERAPY / HAND THERAPY [place] [address] [place] [address] 05/27/2019 09:48:34 05/27/2019 11:36:38 Biceps tendinitis 044500146 M75.21 Muscle weakness 32020163 M62.81 Muscular incoordination 97693792 R27.8 History of operative procedure on shoulder 182776552 Z98.405 [id number] SEAN GUIDRY PT PHYSICAL THERAPY / HAND THERAPY [facility] [address] [place] [address] 06/05/2019 08:42:58 06/05/2019 11:40:58 Biceps tendinitis 146540025 M75.21 Muscle weakness 35979333 M62.81 Muscular incoordination 26887473 R27.8 History of operative procedure on shoulder 175858314 Z98.890 Injury of tendon of the rotator cuff of shoulder 941503143 S46.001D [id number] BETO VALENTE MD SURGERY SCHEDULE [address] [place] [address] 06/07/2019 06:19:58 06/07/2019 06:21:26 [id number] PEDRO CHAVES II, PT, DPT PHYSICAL THERAPY / HAND THERAPY [facility] [address] 06/10/2019 08:50:50 06/17/2019 11:34:27 Biceps tendinitis 203373524 M75.21 Muscle weakness 39620427 M62.81 Injury of tendon of the rotator cuff of shoulder 810133595 S46.091D Muscular incoordination 96808091 R27.8 [id number] R AUGUSTUS LOAIZA PA-C [facility] [place] [address] [place] [address] 06/13/2019 14:11:08 06/13/2019 14:54:35 Postoperative care 850523887 Z48.89 [id number] PEDRO CHAVES II, PT, DPT PHYSICAL THERAPY / HAND THERAPY [facility] [address] 06/13/2019 14:13:24 06/18/2019 14:53:33 Biceps tendinitis 622260717 M75.21 Muscle weakness 93329697 M62.81 History of operative procedure on shoulder 870477466 Z98.890 Muscular incoordination 09324498 R27.8 [id number] PEDRO CHAVES II, PT, DPT PHYSICAL THERAPY / HAND THERAPY [place] [address] [place] [address] 06/17/2019 07:49:24 06/24/2019 14:45:57 Biceps tendinitis 929914857 M75.21 Muscle weakness 22224241 M62.81 Muscular incoordination 14078443 R27.8 History of operative procedure on shoulder 845486690 Z98.227 [id number] BETO VALENTE MD [facility] [place] [address] [place] [address] 06/17/2019 07:52:06 06/17/2019 09:40:09 Pain of right shoulder joint 9547326695 1216993 M25.346 [id number] PEDRO CHAVES II, PT, DPT PHYSICAL THERAPY / HAND THERAPY [place] [address] [place] [address] 06/20/2019 08:44:33 06/26/2019 10:32:07 Muscle weakness 56567617 M62.81 Muscular incoordination 79972586 R27.8 Injury of tendon of the rotator cuff of shoulder 674656326 S46.091D History of operative procedure on shoulder 999348774 Z98.358 [id number] PEDRO CHAVES II, PT, DPT PHYSICAL THERAPY / HAND THERAPY [place] [address] [place] [address] 06/24/2019 07:51:58 06/28/2019 08:06:30 Muscle weakness 12573129 M62.81 Muscular incoordination 50208357 R27.8 History of operative procedure on shoulder 079007617 Z98.890 Injury of tendon of the rotator cuff of shoulder 262865445 S46.091D [id number] PEDRO CHAVES II, PT, DPT PHYSICAL THERAPY / HAND THERAPY [address] [place] [address] 06/27/2019 08:23:59 07/02/2019 12:57:41 Biceps tendinitis 153280881 M75.21 Muscle weakness 13868217 M62.81 Muscular incoordination 41171014 R27.8 History of operative procedure on shoulder 479081687 Z98.628 [id number] PEDRO CHAVES II PT, DPT PHYSICAL THERAPY / HAND THERAPY [address] [place] [address] 06/27/2019 09:05:46 07/02/2019 13:01:22 History of arthroscopy of knee joint 575608655 Z98.890 Muscle weakness 20925721 M62.81 Muscular incoordination 38901427 R27.8 Abnormal gait 49501916 R 26.9 [id number] PEDRO CHAVES II, PT, DPT PHYSICAL THERAPY / HAND THERAPY [place] [address] [place] [address] 07/01/2019 09:15:09 07/02/2019 16:43:38 Biceps tendinitis 005380697 M75.21 Muscle weakness 92567938 M62.81 Injury of tendon of the rotator cuff of shoulder 920397226 S46.091D Muscular incoordination 30899450 R27.8 [id number] PEDRO CHAVES II, PT, DPT PHYSICAL THERAPY / HAND THERAPY [place] [address] [place] [address] 6 07/04/2019 08:37:58 07/04/2019 15:54:01 Biceps tendinitis 420429409 M75.21 Muscle weakness 09141812 M62.81 Muscular incoordination 27062750 R27.8 History of operative procedure on shoulder 431731875 Z98.872 [id number] PEDRO CHAVES II, PT, DPT PHYSICAL THERAPY / HAND THERAPY [place] [address] [place] [address] 6 07/04/2019 08:39:01 07/16/2019 16:19:15 Abnormal gait 93641113 R26.9 Muscle weakness 61649621 M62.81 Muscular incoordination 09216843 R27.8 History of arthroscopy of knee joint 731232053 Z98.625 [id number] R AUGUSTUS LOAIZA PA-C [facility] [place] [address] [place] [address] 07/04/2019 08:39:56 07/04/2019 13:52:12 Postoperative care 462767662 Z48.89 [id number] PEDRO CHAVES II, PT, DPT PHYSICAL THERAPY / HAND THERAPY [place] [address] [place] [address] 07/09/2019 07:39:22 07/09/2019 15:11:07 Abnormal gait 68076183 R26.9 Muscle weakness 72951612 M62.81 Muscular incoordination 64373490 R27.8 History of arthroscopy of knee joint 685328152 Z98.651 [id number] PEDRO CHAVES II, PT, DPT PHYSICAL THERAPY / HAND THERAPY [place] [address] [place] [address] 07/09/2019 07:40:03 07/09/2019 15:10:02 Biceps tendinitis 788479402 M75.21 Muscle weakness 44124821 M62.81 Muscular incoordination 81080751 R27.8 History of operative procedure on shoulder 182006277 Z98.572 [id number] PEDRO CHAVES II, PT, DPT PHYSICAL THERAPY / HAND [place]ER[place] [address] 07/11/2019 08:26:10 07/26/2019 08:02:14 Biceps tendinitis 931335209 M75.21 Muscle weakness 04304918 M62.81 Muscular incoordination 04786459 R27.8 History of operative procedure on shoulder 098270001 Z98.897 [id number] PEDRO CHAVES II, PT, DPT PHYSICAL THERAPY / HAND THERAPY [place] [address] [place] [address] 07/16/2019 12:44:55 07/16/2019 14:36:53 Biceps tendinitis 367813638 M75.21 Muscle weakness 45398272 M62.81 Muscular incoordination 16001845 R27.8 History of arthroscopy of knee joint 439493132 Z98.890 History of operative procedure on shoulder 615036185 Z98.065 [id number] PEDRO CHAVES II, PT, DPT PHYSICAL THERAPY / HAND THERAPY [place] [address] [place] [address] 07/19/2019 08:38:14 08/01/2019 07:13:05 Biceps tendinitis 893262467 M75.21 Muscle weakness 70534597 M62.81 Injury of tendon of the rotator cuff of shoulder 995704376 S46.091D History of operative procedure on shoulder 156232430 Z98.732 [id number] PEDRO CHAVES II, PT, DPT PHYSICAL THERAPY / HAND THERAPY [place] [address] [place] [address] 07/19/2019 08:39:44 07/24/2019 08:19:48 Abnormal gait 44469257 R26.9 Muscle weakness 60599807 M62.81 History of arthroscopy of knee joint 125546058 Z98.118 [id number] PEDRO CHAVES II, PT, DPT PHYSICAL THERAPY / HAND THERAPY [place] [address] [place] [address] 07/23/2019 09:48:51 07/23/2019 13:28:20 Abnormal gait 47389979 R26.9 Muscle weakness 94346791 M62.81 Muscular incoordination 86857655 R27.8 History of arthroscopy of knee joint 455964083 Z98.963 [id number] BETO VALENTE MD [facility] [place] [address] [place] [address] 07/23/2019 09:51:16 07/23/2019 12:40:27 Pain of right shoulder joint 5993263337 3817878 M25.056 [id number] PEDRO CHAVES II, PT, DPT PHYSICAL THERAPY / HAND THERAPY [place] [address] [place] [address] 07/23/2019 09:52:01 07/24/2019 16:36:10 Muscle weakness 93244208 M62.81 Injury of tendon of the rotator cuff of shoulder 421470146 S46.091D Muscular incoordination 21655964 R27.8 History of operative procedure on shoulder 399015489 Z98.948 [id number] PEDRO CHAVES II PT, DPT PHYSICAL THERAPY / HAND THERAPY [place] [address] [place] [address] 07/25/2019 08:46:43 08/05/2019 15:18:30 Biceps tendinitis 729242505 M75.21 Muscle weakness 65411123 M62.81 Muscular incoordination 60995104 R27.8 History of operative procedure on shoulder 088823145 Z98.722 [id number] PEDRO CHAVES II, PT, DPT PHYSICAL THERAPY / HAND THERAPY [place] [address] [place] [address] 07/30/2019 08:43:36 08/12/2019 08:30:00 Biceps tendinitis 979898591 M75.21 Muscle weakness 48776834 M62.81 Muscular incoordination 33585947 R27.8 History of operative procedure on shoulder 555453272 Z98.078 [id number] PEDRO CHAVES II, PT, DPT PHYSICAL THERAPY / HAND THERAPY [place] [address] [place] [address] 07/30/2019 08:44:27 08/12/2019 08:30:49 Abnormal gait 26016797 R26.9 Muscle weakness 30556240 M62.81 History of arthroscopy of knee joint 399546073 Z98.890 Muscular incoordination 46018368 R27.8 [id number] PEDRO CHAVES II, PT, DPT PHYSICAL THERAPY / HAND THERAPY [facility] [address] [place] [address] 08/01/2019 08:39:40 08/09/2019 09:11:04 Biceps tendinitis 060770615 M75.21 Muscle weakness 32200659 M62.81 History of operative procedure on shoulder 636195969 Z98.890 Muscular incoordination 18432328 R27.8 [id number] PEDRO CHAVES II, PT, DPT PHYSICAL THERAPY / HAND THERAPY [facility] [address] [place] [address] 08/05/2019 09:36:20 08/12/2019 08:07:57 Biceps tendinitis 590093122 M75.21 Muscle weakness 31511089 M62.81 Muscular incoordination 07327423 R27.8 History of operative procedure on shoulder 515056235 Z98.323 [id number] BETO VALENTE MD [facility] [place] [address] [address] 08/15/2019 09:31:43 08/15/2019 14:47:54 Osteoarthritis of right knee joint 4067227437 92802 M17.11 [id number] BETO VALENTE MD [facility] [place] [address] [address] 6 08/27/2019 10:16:36 08/27/2019 12:39:10 Pain of right shoulder joint 2036093808 8003225 M25.985 [id number] BETO VALENTE MD [facility] [place] [address] [address] 09/23/2019 10:34:30 09/25/2019 12:32:00 Tear of lateral meniscus of knee 500626509 S83.271A [id number] BETO VALENTE MD [facility] [place] [address] [place] [address] 10/08/2019 10:14:25 10/14/2019 19:41:27 Pain of right shoulder joint 2372411062 4975777 M25.653 [id number] BETO VALENTE MD [facility]I [facility] [place] [address] [address] 01/27/2020 11:40:47 01/27/2020 14:05:41 Osteoarthritis of knee 873886420 M17.11 [id number] BETO VALENTE MD [facility] [address] [address] 07/13/2020 09:09:21 07/13/2020 11:40:02 Pain in right knee 5585310191 71215 M25.153 [id number] BETO VALENTE MD [facility] [address] [address] 6 08/28/2020 11:04:16 08/28/2020 11:54:22 Tendinitis of left patellar tendon 4198501041 08798 M76.52 Pain in left knee 760840 4495 05082 M25.562 possible mm tear [id number] MYRON THORNTON MD [facility] [place] [address] [address] 10/13/2020 12:49:31 10/13/2020 13:48:58 Postoperative care 415249332 Z48.89 Previously status post right trigger thumb release (03/20/17) Pain in right thumb 1076 140622 144529 M79.644 Outside x-rays of the right thumb reviewed with no evidence of underlying fracture/d islocation [id number] MYRON THORNTON MD [facility] [address] [address] 11/12/2020 10:44:15 11/12/2020 13:27:11 Pain in right thumb 6942599301 296887 M79.644 Outside x-rays of the right thumb reviewed with no evidence of underlying fracture/d islocation Postoperative care 89170 9007 Z48.89 Previously status post right trigger thumb release (03/20/17) [id number] MYRON THORNTON MD [facility] [address] [address] 6 12/22/2020 14:33:53 12/23/2020 13:36:28 Pain in right thumb 9906164441 470105 M79.644 Outside x-rays of the right thumb reviewed with no evidence of underlying fracture/d islocation Postoperative care 93143 9007 Z48.89 Previously status post right trigger thumb release (03/20/17) [id number] BETO VALENTE MD [facility] [address] [address] 05/18/2021 14:23:54 05/18/2021 15:57:45 Infection of foot 809859852 L08.9 Pain in left knee 235393 1314 42559 M25.562 possible mm tear [id number] BETO VALENTE MD [facility] [address] [place] [address] 05/24/2021 14:39:33 05/24/2021 17:02:15 Pain in left knee 9593075018 11571 M25.562 possible mm tear [id number] BETO VALENTE MD SURGERY SCHEDULE [address] [place] [address] 08/27/2021 06:07:52 08/27/2021 06:09:09 [id number] TY VARGAS PA-C [facility] [address] [place] [address] 6 09/02/2021 08:48:30 09/02/2021 09:27:09 Postoperative care 760753065 Z48.89 [id number] TY VARGAS PA-C [facility] [address] [place] [address] 09/28/2021 09:02:50 09/28/2021 10:04:41 Postoperative care 261240480 Z48.89 Patient progressin g well postoperat ively. [...] she continues to have this aching pain. [id number] TY VARGAS PA-C [facility] [place] [address] [place] [address] 10/26/2021 08:42:32 10/26/2021 09:16:09 Postoperative care 252644656 Z48.89 Patient progressin g well postoperat ively. Some residual aching in the medial aspect of the knee. Strength and range of motion appropriat e today.Plan :Continue PT with HEP. Continue to ice and elevate frequently . Over-the-c ounter anti-infla mmatories as needed. Hold on injection today. [id number] TY VARGAS PA-C [facility] [place] [address] [place] [address] 11/23/2021 12:57:16 11/23/2021 13:33:06 Postoperative care 415402131 Z48.89 Patient progressin g well postoperat ively. Some residual aching in the medial aspect of the knee. Strength and range of motion appropriat e today.Plan :Continue HEP. Ice and elevate as needed. 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 1866173 M65.331 Right long trigger finger (CSI: 02/25/2022) Previously status post right trigger thumb release (03/20/17) [id number] MYRON THORNTON MD [facility] [address] [place] [address] 6 03/24/2022 10:44:49 03/24/2022 12:40:36 Acquired trigger finger 5895470 M65.331 Right long trigger finger (CSI: 02/25/2022) Previously status post right trigger thumb release (03/20/17) Postoperative care 52916 9007 Z48.89 Previously status post right trigger thumb release (03/20/17) [id number] MYRON THORNTON MD SURGERY SCHEDULE [address] [facility] [place] [address] 04/20/2022 06:03:00 04/20/2022 06:04:21 [id number] LAURIE GONZALEZ PA-C [facility] [address] [address] 05/05/2022 08:06:56 05/05/2022 08:31:04 Postoperative care 609694501 Z48.89 s/p Right middle trigger finger release (DOS: 04/20/22) Previously status post right trigger thumb release (03/20/17) [id number] MYRON THORNTON MD [facility] [address] [address] 06/02/2022 09:09:46 06/02/2022 10:10:14 Postoperative care 273063846 Z48.89 6 weeks s/p Right middle trigger finger release (DOS: 04/20/22) Previously status post right trigger thumb release (03/20/17) [id number] MYRON THORNTON MD [facility] [address] [address] 07/14/2022 08:16:23 07/14/2022 08:40:50 Postoperative care 274397283 Z48.89 12 weeks s/p Right middle trigger finger release (DOS: 04/20/22) Previously status post right trigger thumb release (03/20/17) [id number] MYRON THORNTON MD [facility] [address] [address] 08/16/2022 08:33:51 08/16/2022 09:39:47 Postoperative care 141338420 Z48.89 4 months s/p right middle trigger finger release (DOS: 04/20/22) Previously status post right trigger thumb release (03/20/17) Flexor ten osynovitis of finger M65.849 Right long finger flexor tendinitis (CSI: 08/16/2022) [id number] MYRON THORNTON MD [facility] [address] [place] [address] 09/22/2022 15:26:31 09/22/2022 16:42:00 Postoperative care 760323583 Z48.89 5 months s/p right middle trigger finger release (DOS: 04/20/22) Previously status post right trigger thumb release (03/20/17) Flexor ten osynovitis of finger M65.849 Right long finger flexor tendinitis (CSI: 08/16/2022) [id number] TY VARGAS PA-C [facility] [address] [place] [address] 12/27/2022 14:12:24 12/27/2022 15:23:59 Edema of lower extremity 588765579 R60.0 Patient's symptoms today consistent likely with [...] persistent swelling of the right lower leg. [id number] BETO VALENTE MD [facility] [address] [place] [address] 05/22/2023 15:53:59 05/22/2023 17:28:21 Bilateral osteoarthritis of knees 5619713881 86483 M17.0 [id number] EMMANUELLE Andrew MD [facility] [address] [place] [address] 11/21/2023 07:50:13 11/21/2023 08:43:17 Pain of left knee joint 7825393932 85396 M25.562 Osteoarthr itis of left knee joint 4745284326 51707 M17.12 Hide he does have advanced degenerati [...] Type 2 zulma betes mellitus without complication 856420722 E11.9 A1c 6.6 by patient report. Currently maintained on metformin, Ozempic, and Jardiance. We will recheck her A1c and fructosami ne prior to surgical scheduling . Coronary arteriosclerosis 13569851 I25.10 Recent history of PCI x 4 [...] scheduling . History of percutaneous coronary intervention 785511201 Z98.890 [id number] EMMANUELLE Andrew MD [facility] [address] [place] [address] 02/20/2024 07:55:37 02/20/2024 09:45:24 Pain of left knee joint 1398202184 78123 M25.562 Osteoarthr itis of left knee joint 7587321875 12914 M17.12 ASSESSMENT : DJD {{LEFT* RI GHT [...] potential cost sharing responsibi lities; only one [facility] can furnish and bill for PCM services during a calendar month, and the patient can stop these services at any time. The patient understand s and has verbally consented to accept PCM services and has been provided a copy of a written explanatio n of this service today. Surgery date: {{ 04-17-24# }}Surgery location: [facility]}} ecial equipment: {{ Beatriz , press-fit# }}Pre-op clearance: {{PASS* LC labs PCP Omar Kendrick, PA-C}}Othe r medical clearance: {{none Car diology, Shahida#} }DVT prophylaxi s: Resume ASA/Plavix , TEDAdmissi on status: {{INPATIEN T OUTPATIE NT* NONE}} Discharge plan: {{no/SDS o vernight* 2 night > 2 night}} admissionP T: {{home health SNF direct to outpatient [facility]*}} Allergies: {{none PCN other*}}S kin testing: {{Yes No*} } Type 2 zulma betes mellitus without complication 045753728 E11.9 A1c 6.6 by patient report. Currently maintained on metformin, Ozempic, and Jardiance. We will recheck her A1c and fructosami ne prior to surgical scheduling . Coronary arteriosclerosis 66121553 I25.10 Recent history of PCI x 4 in March 2023.. She is followed by Dr. Pinedo. She is currently maintained on Plavix, and must remain on antiplatel et agents uninterrup joey for 1 year from her stent placement. She will be eligible for TKA in March, as result. She has already seen Dr. Pinedo, and been cleared for surgical interventi on. We will obtain definitive clearance from his office, and follow any recommenda tions perioperat ively. Plan will be to withhold her Plavix for 7 days prior to surgery, and restart her on ASA/Plavix postoperat ively for DVT prophylaxi s. For history of coronary artery disease does increase her risk for cardiac events following elective TKA, including RI, arrhythmia s, and sudden cardiac . History of percutaneous coronary intervention 364718943 Z98.890 [id number] EMMANUELLE Andrew MD [facility] [address] [place] [address] 04/11/2024 13:40:11 04/12/2024 10:02:00 [id number] EMMANUELLE Andrew MD SURGERY SCHEDULE [address] [place] [address] 04/17/2024 14:53:45 04/24/2024 14:00:07 [id number] ANUJ KIRAN PA-C [facility] [address] [place] [address] 05/08/2024 10:28:14 05/08/2024 11:14:52 History of total knee arthroplasty 4423443389 105 Z96.652 Patient is 3 weeks status post left TKA and doing very well at this time. No complaints or concerns today. She [facility] [place] . Highly encouraged to continue to focus [...] post op follow up with radiograph s. [id number] ANUJ KIRAN PA-C [facility] [address] [place] [address] 05/29/2024 09:12:59 05/29/2024 10:24:40 History of total knee arthroplasty 5483146358 105 Z96.652 Patient now 6 weeks status post left TKA. She continues to do very well with no complaints or concerns. Range of motion goals have been met. Okay to submerge incision. Resume normal activities as tolerated. Patient works at [employer] and has plans to return to work in formerly [facility] 4 weeks which I do think would [...] status. Long-leg radiograph s will be obtained. [id number] ANUJ KIRAN PA-C [facility] [address] [place] [address] 06/26/2024 08:29:00 06/26/2024 09:18:34 History of total knee arthroplasty 7100222793 105 Z96.652 Patient now 9 weeks status post left TKA. Over the weekend she had increased her activity with some home chores had a slight increase in some discomfort but otherwise still doing well at this time. No restrictio ns, she may return to work in 3 weeks at this time. She works at [email or web address]. She is planning tentativel y to schedule [...] 1 year or sooner if symptoms warrant. [id number] ANUJ KIRAN PA-C [facility] [address] [place] [address] 07/22/2024 07:53:25 07/22/2024 08:21:23 History of total knee arthroplasty 5228585045 105 Z96.652 Zehra he is now 13 [...] Recorded Advance Directives Directive None Recorded Payers Insurance Date Sequence Insurance Name Policy Number Policy Gregorio Covered Member ID Gregorio Member ID Guarantor Name 02/25/2022 [facility] [employer] Zehra S Sanor 02/21/2022 [facility] [employer] Zehra S Sanor 07/19/2024 1 AAMIR-AL: [facility] (O) [id number] A Zehra S Sanor [id number] Zehra S Sanor 03/15/2019 [facility] [employer] Zehra S Sanor 05/22/2023 [facility] [employer] Zehra S Sanor 07/05/2024 1 [employer] (MOVED TO HOLD) Zehra S Sanor Zehra S Sanor Notes Date Note Type [...] refill of pain medicine. ANUJ KIRAN PA-C [id number] [place], [address], [facility] 05/08/2024 11:15:32 05/29/2024 text/html 05/27/24Patient i s [...] refill of pain medicine. ANUJ KIRAN PA-C [address] [place], [address], [facility] 05/29/2024 10:25:59 06/26/2024 text/html 06/26/24Patient i s [...] of pain medicine. ANUJ KIRAN PA-C [address] [place], [address], [facility] 06/26/2024 09:19:24 07/22/2024 text/html 07/22/24Patient is {{ [...] of pain medicine. ANUJ KIRAN [facility] [id number] [place], [id number], [facility] 07/22/2024 09:51:17 OBGyn Episode No OBEpisode recorded.
--- OUTSIDE RECORDS SUMMARY | 2025-03-25 10:32 | XMS_ITS | Data Portability ---
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 She is a 57-year-old employee out at [employer] who has had a several month history [...] in punctuate rojas and or spelling, etc. [email or web address] Not available 11/28/2022 11:49:55 01/02/2023 01/02/2023 Ms Espino returns after robotic cholecystectomy. She is doing very well without serous complaints or issues. The wounds are intact without sign of infection. She can return to work in 1 week if she does not lift more than 35 lb. Follow-up in a month as needed [email or web address] Not available 01/02/2023 09:09:29 10/01/2024 10/01/2024 Ms. [...] (A+B+C), acute, serum 2023 024 [email or web address] 4 [facility] (Registration ), [address] [place], [address], 11/14/2024 11:24:16 igg, quantitat liliam, serum 2023 024 [facility] (Registration ), [address] [place], [address], 10/03/2024 15:14:32 mitochond rial Ab, serum 2023 024 [facility] (Registration ), [address] , [place], [address], 10/03/2024 15:14:30 actin smooth muscle Ab, serum 2023 024 [facility] (Registration ), [address] , [place], [address], 10/03/2024 15:14:34 ARNAV (antinucl ear antibodie s) screen, serum 2023 024 [facility] (Registration ), [address], [place], [address], 10/03/2024 13:13:40 alpha-1-a ntitrypsi n (aat), QN, serum [email or web address] [place] [address] (Registration ), [address], [place], [address], 11/14/2024 11:24:16 CBC w/ auto diff 2023 024 [facility] (Registration ), [address], [place], [address], 10/02/2024 07:51:03 PT/INR 2023 024 [email or web address] [address] [place] [address] (Registration ), [address], [place], [address], 11/14/2024 11:24:16 nonalcoho lic steatohep atitis + fibrosis panel, serum or plasma [address]23 [email or web address] [place] [address] (Registration ), [address] [place], [address], 11/14/2024 11:24:16 alpha-1-a ntitrypsi n (aat) phenotype , serum [email or web address] [place] [address] (Registration ), [address] [place], [address], 11/14/2024 11:24:17 CMP, serum or plasma 2023 024 [facility] (Registration ), [address] [facility], [place], [address], 10/02/2024 08:04:39 hemochrom atosis mutation (hfe), blood/tis yudi 2023 024 [email or web address] 4 [facility] (Registration ), [address] [facility], [place], [address], 11/14/2024 11:24:17 Referral general surgeon referral 2021 022 JACKSON Funk MD, [address] [facility], [address], [place], [address], 03/17/2024 05:01:33 Procedures None recorded. Surgeries None recorded. Imaging US, liver 2023 024 JACKSON Gtwn [facility] Number, [address] [place], [address], 10/14/2024 11:59:54 Medication Orders None recorded. Patient TargetsNo targets recorded. Patient Instructions Encounter Date Encounter Id Patient Instructions Last Modified By Organization Details Last Modified Time 10/01/2024 [id number] 6 month f/u [email or web address] Not available 10:52:52 Reason for Referral General Surgeon Referral for Cholelithiasis without obstruction Referring Physician: Johnna Karimi, Family Medicine, Encounter Date: 10/26/2022 Results Created Date Observation Date Name Description Value Unit Range Abnormal Flag Note LastModifiedBy Organization Detail LastModifiedTime 12/13/1912/13/2022 CBC AUTO NO DIFF (HEMO GRAM) WBC 5.7 K/uL 4.0-10 .5 Not Available [facility] (Ccd) [address] [facility], [place], [address], 12/13/2022 16:35:15 12/13/1912/13/2022 CBC AUTO NO DIFF (HEMO GRAM) RBC 4.2 M/mm3 4.2-6. 4 Not Available [facility] ([facility]) [address] [facility], [place], [address], 12/13/2022 16:35:15 12/13/19 23 12/13/2022 CBC AUTO NO DIFF (HEMO GRAM) HGB 13.0 gm/dL 12.5-1 6.0 Not Available [facility] ([facility]) [address] , [place], [address], 12/13/2022 16:35:15 12/13/19 23 12/13/2022 CBC AUTO NO DIFF (HEMO GRAM) HCT 38.9 % 37.0-4 7.0 Not Available [facility] ([facility]) [address] , [place], [address], 12/13/2022 16:35:15 12/13/19 23 12/13/2022 CBC AUTO NO DIFF (HEMO GRAM) MCV 93.5 fL 78-100 Not Available [facility] ([facility]) [address] , [place], [address], 12/13/2022 16:35:15 12/13/19 23 12/13/2022 CBC AUTO NO DIFF (HEMO GRAM) MCH 31.3 pg 27-31 high Not Available [facility] ([facility]) [address] , [place], [address], 12/13/2022 16:35:15 12/13/19 23 12/13/2022 CBC AUTO NO DIFF (HEMO GRAM) MCHC 33.4 g/dL 32-36 Not Available [facility] ([facility]) [address] , [place], [address], 12/13/2022 16:35:15 12/13/19 23 12/13/2022 CBC AUTO NO DIFF (HEMO GRAM) RDW 12.9 % 11.5-1 4.0 Not Available [facility] ([facility]) [address] , [place], [address], 12/13/2022 16:35:15 12/13/19 23 12/13/2022 CBC AUTO NO DIFF (HEMO GRAM) platelet count 193 K/uL 150-45 0 Not Available [facility] ([facility]) [address] , [place], [address], 12/13/2022 16:35:15 12/13/19 23 12/13/2022 CBC AUTO NO DIFF (HEMO GRAM) manual differential NO Not Available [facility] ([facility]) [address] , [place], [address], 12/13/2022 16:35:15 12/13/19 23 12/13/2022 COMP METAB OLIC PANEL sodium 139 mmol/ L 136-14 5 Not Available [facility] ([facility]) [address] , [place], [address], 12/13/2022 17:16:34 12/13/19 23 12/13/2022 COMP METAB OLIC PANEL potassium 3.5 mmol/ L 3.6-5. 0 low Not Available [facility] ([facility]) [address] , [place], [address], 12/13/2022 17:16:34 12/13/19 23 12/13/2022 COMP METAB OLIC PANEL chloride 102 mmol/ L 98-107 Not Available [facility] ([facility]) [address] , [place], [address], 12/13/2022 17:16:34 12/13/19 23 12/13/2022 COMP METAB OLIC PANEL carbon dioxide 31.2 mmol/ L 21.0-3 2.0 Not Available [facility] ([facility]) [address] [place], [address], 12/13/2022 17:16:34 12/13/19 23 12/13/2022 COMP METAB OLIC PANEL anion gap 9.3 Not Available [facility] ([facility]) [address] [place], [address], 12/13/2022 17:16:34 12/13/19 23 12/13/2022 COMP METAB OLIC PANEL glucose 126 mg/dL 70-120 high Not Available [facility] ([facility]) [address], [place], [address], 12/13/2022 17:16:34 12/13/19 23 12/13/2022 COMP METAB OLIC PANEL BUN 25 mg/dL 7-18 high Not Available [facility] ([facility]) [address], [place], [address], 12/13/2022 17:16:34 12/13/19 23 12/13/2022 COMP METAB OLIC PANEL creatinine 1.0 mg/dL 0.6-1. 3 Not Available [facility] ([facility]) [address] , [place], [address], 12/13/2022 17:16:34 12/13/19 23 12/13/2022 COMP METAB OLIC PANEL glomerular filtration rate >60 mlper min 60- Not Available [facility] ([facility]) [address] , [place], [address], 12/13/2022 17:16:34 12/13/19 23 12/13/2022 COMP METAB OLIC PANEL total protein 6.9 g/dL 6.4-8. 2 Not Available [facility] ([facility]) [address] , [place], [address], 12/13/2022 17:16:34 12/13/19 23 12/13/2022 COMP METAB OLIC PANEL albumin 4.1 g/dL 3.4-5. 0 Not Available [facility] ([facility]) [address] , [place], [address], 12/13/2022 17:16:34 12/13/19 23 12/13/2022 COMP METAB OLIC PANEL globulin 2.8 Not Available [facility] ([facility]) [address], [place], [address], 12/13/2022 17:16:34 12/13/19 23 12/13/2022 COMP METAB OLIC PANEL alb/glob ratio 1.5 0.7-2 Not Available [facility] ([facility]) [address], [place], [address], 12/13/2022 17:16:34 12/13/19 23 12/13/2022 COMP METAB OLIC PANEL calcium 9.6 mg/dL 8.5-10 .5 Not Available [facility] ([facility]) [address], [place], [address], 12/13/2022 17:16:34 12/13/19 23 12/13/2022 COMP METAB OLIC PANEL bilirubin total 0.30 mg/dL 0.10-1 .00 Not Available [facility] ([facility]) [address], [place], [address], 12/13/2022 17:16:34 12/13/19 23 12/13/2022 COMP METAB OLIC PANEL AST (SGOT) 31 U/L 0-37 Not Available [facility] ([facility]) [address] , [place], [address], 12/13/2022 17:16:34 12/13/19 23 12/13/2022 COMP METAB OLIC PANEL ALT (SGPT) 47 U/L 0-65 Not Available [facility] ([facility]) [address] , [place], [address], 12/13/2022 17:16:34 12/13/19 23 12/13/2022 COMP METAB OLIC PANEL alk phosphatase 68 U/L 46-116 Not Available [facility] ([facility]) [address], [place], [address], 12/13/2022 17:16:34 10/02/20 24 10/02/2024 CBC AUTO W DIFF WBC 5.0 K/uL 4.0-10 .5 Not Available [facility] ([facility]) [address] , [place], [address], 10/02/2024 07:51:03 10/02/20 24 10/02/2024 CBC AUTO W DIFF RBC 4.1 M/mm3 4.2-6. 4 low Not Available [facility] ([facility]) [address] , [place], [address], 10/02/2024 07:51:03 10/02/20 24 10/02/2024 CBC AUTO W DIFF HGB 12.7 gm/dL 12.5-1 6.0 Not Available [facility] ([facility]) [address] , [place], [address], 10/02/2024 07:51:03 10/02/20 24 10/02/2024 CBC AUTO W DIFF HCT 39.5 % 37.0-4 7.0 Not Available [facility] ([facility]) [address] , [place], [address], 10/02/2024 07:51:03 10/02/20 24 10/02/2024 CBC AUTO W DIFF MCV 96.3 fL 78-100 Not Available [facility] ([facility]) [address] , [place], [address], 10/02/2024 07:51:03 10/02/20 24 10/02/2024 CBC AUTO W DIFF MCH 31.0 pg 27-31 Not Available [facility] ([facility]) [address] [place], [address], 10/02/2024 07:51:03 10/02/20 24 10/02/2024 CBC AUTO W DIFF MCHC 32.2 g/dL 32-36 Not Available [facility] ([facility]) [address], [place], [address], 10/02/2024 07:51:03 10/02/20 24 10/02/2024 CBC AUTO W DIFF RDW 13.0 % 11.5-1 4.0 Not Available [facility] ([facility]) [address], [place], [address], 10/02/2024 07:51:03 10/02/20 24 10/02/2024 CBC AUTO W DIFF platelet count 208 K/uL 150-45 0 Not Available [facility] ([facility]) [address] [facility], [place], [address], 10/02/2024 07:51:03 10/02/20 24 10/02/2024 CBC AUTO W DIFF MPV 9.8 fL 6-9.5 high Not Available [facility] ([facility]) [address] [place], [address], 10/02/2024 07:51:03 10/02/20 24 10/02/2024 CBC AUTO W DIFF neutrophil% 59.1 % 43-65 Not Available [facility] ([facility]) [address], [place], [address], 10/02/2024 07:51:03 10/02/20 24 10/02/2024 CBC AUTO W DIFF lymphocyte% 31.1 % 20.5-4 5.5 Not Available [facility] ([facility]) [address] [place], [address], 10/02/2024 07:51:03 10/02/20 24 10/02/2024 CBC AUTO W DIFF monocyte% 7.0 % 5.5-11 .7 Not Available [facility] ([facility]) [address] [place], [address], 10/02/2024 07:51:03 10/02/20 24 10/02/2024 CBC AUTO W DIFF eosinophil% 2.2 % 0.9-2. 9 Not Available [facility] ([facility]) [address] [place], [address], 10/02/2024 07:51:03 10/02/20 24 10/02/2024 CBC AUTO W DIFF basophil% 0.4 % 0.2-1. 0 Not Available [facility] ([facility]) [address] [place], [address], 10/02/2024 07:51:03 10/02/20 24 10/02/2024 CBC AUTO W DIFF immature granulocytes % 0.2 % 0.0-0. 8 Not Available [facility] ([facility]) [address] [place], [address], 10/02/2024 07:51:03 10/02/20 24 10/02/2024 CBC AUTO W DIFF nucleated red blood cells % 0.0 % Not Available [facility] ([facility]) [address] [facility], [place], [address], 10/02/2024 07:51:03 10/02/20 24 10/02/2024 CBC AUTO W DIFF neutrophil# 3.0 K/uL 2.2-4. 8 Not Available [facility] ([facility]) [address] [place], [address], 10/02/2024 07:51:03 10/02/20 24 10/02/2024 CBC AUTO W DIFF lymphocyte# 1.6 cell/ mcL 1.3-2. 9 Not Available [facility] ([facility]) [address] [place], [address], 10/02/2024 07:51:03 10/02/20 24 10/02/2024 CBC AUTO W DIFF monocyte# 0.4 cell/ mcL 0.3-0. 8 Not Available [facility] ([facility]) [address] [place], [address], 10/02/2024 07:51:03 10/02/20 24 10/02/2024 CBC AUTO W DIFF eosinophil# 0.1 cell/ mcL 0-0.2 Not Available [facility] ([facility]) [address] , [place], [address], 10/02/2024 07:51:03 10/02/20 24 10/02/2024 CBC AUTO W DIFF basophil# 0.0 cell/ mcL 0.0-1. 0 Not Available [facility] ([facility]) [address], [place], [address], 10/02/2024 07:51:03 10/02/20 24 10/02/2024 CBC AUTO W DIFF immature gramulocytes # 0.01 K/uL Not Available [facility] ([facility]) [address], [place], [address], 10/02/2024 07:51:03 10/02/20 24 10/02/2024 CBC AUTO W DIFF nucleated red blood cells # 0.00 K/uL Not Available [facility] ([facility]) [address], [place], [address], 10/02/2024 07:51:03 10/02/20 24 10/02/2024 CBC AUTO W DIFF manual differential NO Not Available [facility] ([facility]) [address], [place], [address], 10/02/2024 07:51:03 10/02/20 24 10/02/2024 COMP METAB OLIC PANEL sodium 140 mmol/ L 136-14 5 Not Available [facility] ([facility]) [address], [place], [address], 10/02/2024 08:04:39 10/02/20 24 10/02/2024 COMP METAB OLIC PANEL potassium 4.1 mmol/ L 3.6-5. 0 Not Available [facility] ([facility]) [address] , [place], [address], 10/02/2024 08:04:39 10/02/20 24 10/02/2024 COMP METAB OLIC PANEL chloride 102 mmol/ L 98-107 Not Available [facility] ([facility]) [address] , [place], [address], 10/02/2024 08:04:39 10/02/20 24 10/02/2024 COMP METAB OLIC PANEL carbon dioxide 26.6 mmol/ L 21.0-3 2.0 Not Available [facility] ([facility]) [address] , [place], [address], 10/02/2024 08:04:39 10/02/20 24 10/02/2024 COMP METAB OLIC PANEL anion gap 15.5 Not Available [facility] ([facility]) [address] , [place], [address], 10/02/2024 08:04:39 10/02/20 24 10/02/2024 COMP METAB OLIC PANEL glucose 147 mg/dL 70-120 high Not Available [facility] ([facility]) [address] , [place], [address], 10/02/2024 08:04:39 10/02/20 24 10/02/2024 COMP METAB OLIC PANEL BUN 19 mg/dL 7-18 high Not Available [facility] ([facility]) [address] , [place], [address], 10/02/2024 08:04:39 10/02/20 24 10/02/2024 COMP METAB OLIC PANEL creatinine 0.8 mg/dL 0.6-1. 3 Not Available [facility] ([facility]) [address] [place], [address], 10/02/2024 08:04:39 10/02/20 24 10/02/2024 COMP METAB [...] latham ing kiney funct ion. Not Available [facility] ([facility]) [address], [place], [address], 10/02/2024 08:04:39 10/02/20 24 10/02/2024 COMP METAB OLIC PANEL total protein 7.5 g/dL 6.4-8. 2 Not Available [facility] ([facility]) [address] [facility], [place], [address], 10/02/2024 08:04:39 10/02/20 24 10/02/2024 COMP METAB OLIC PANEL albumin 4.2 g/dL 3.4-5. 0 Not Available [facility] ([facility]) [address] [facility], [place], [address], 10/02/2024 08:04:39 10/02/20 24 10/02/2024 COMP METAB OLIC PANEL globulin 3.3 Not Available [facility] ([facility]) [address] [facility], [place], [address], 10/02/2024 08:04:39 10/02/20 24 10/02/2024 COMP METAB OLIC PANEL alb/glob ratio 1.3 0.7-2 Not Available [facility] ([facility]) [address] , [place], [address], 10/02/2024 08:04:39 10/02/20 24 10/02/2024 COMP METAB OLIC PANEL calcium 9.5 mg/dL 8.5-10 .5 Not Available [facility] ([facility]) [address], [place], [address], 10/02/2024 08:04:39 10/02/20 24 10/02/2024 COMP METAB OLIC PANEL bilirubin total 0.30 mg/dL 0.10-1 .00 Not Available [facility] ([facility]) [address], [place], [address], 10/02/2024 08:04:39 10/02/20 24 10/02/2024 COMP METAB OLIC PANEL AST (SGOT) 40 U/L 0-37 high Not Available [facility] ([facility]) [address], [place], [address], 10/02/2024 08:04:39 10/02/20 24 10/02/2024 COMP METAB OLIC PANEL ALT (SGPT) 78 U/L 0-65 high Not Available [facility] ([facility]) [address], [place], [address], 10/02/2024 08:04:39 10/02/20 24 10/02/2024 COMP METAB OLIC PANEL alk phosphatase 82 U/L 46-116 Not Available [facility] ([facility]) [address], [place], [address], 10/02/2024 08:04:39 10/02/20 24 10/02/2024 PT (PROT HROMB IN TIME) W INR prothrombin time 10.1 secon ds 9.3-11 .4 Not Available [facility] ([facility]) [address] [place], [address], 10/02/2024 08:08:50 10/02/20 24 10/02/2024 PT (PROT [...] Mecha nical Heart Valve s Not Available [facility] ([facility]) [address] [facility], [place], [address], 10/02/2024 08:08:50 10/02/20 24 10/03/2024 ACUTE HEPAT ITIS PANEL hep A Ab, IgM Negati ve negati ve A negat liliam anti- HAV IgM resul t sugge sts no recen t or curre nt HAV infec tion. Not Available [facility] ([facility]) [address] [facility], [place], [address], 10/03/2024 06:16:59 10/02/20 24 10/03/2024 ACUTE HEPAT ITIS PANEL HBsAg screen Negati ve negati ve Not Available [facility] ([facility]) [address] [facility], [place], [address], 10/03/2024 06:16:59 10/02/20 24 10/03/2024 ACUTE HEPAT ITIS PANEL hep B core Ab, IgM Negati ve negati ve Not Available [facility] ([facility]) [address] [facility], [place], [address], 10/03/2024 06:16:59 10/02/20 24 10/03/2024 ACUTE HEPAT ITIS PANEL HCV Ab Non Reacti ve non reacti ve Perfo rmed at: - [facility] [address] [place] [address], [place] [id number] [facility] Direc tor: Luis copeland PhD, Phone : [phone] Not Available [facility] ([facility]) [address] [place], [address], 10/03/2024 06:16:59 10/02/20 24 10/03/2024 ACUTE HEPAT ITIS PANEL hep A Ab, IgM Negati ve negati ve A negat liliam anti- HAV IgM resul t sugge sts no recen t or curre nt HAV infec tion. Not Available [facility] ([facility]) [address] [facility], [place], [address], 10/03/2024 06:17:00 10/02/20 24 10/03/2024 ACUTE HEPAT ITIS PANEL HBsAg screen Negati ve negati ve Not Available [facility] ([facility]) [address] [facility], [place], [address], 10/03/2024 06:17:00 10/02/20 24 10/03/2024 ACUTE HEPAT ITIS PANEL hep B core Ab, IgM Negati ve negati ve Not Available [facility] ([facility]) [address] [facility], [place], [address], 10/03/2024 06:17:00 10/02/20 24 10/03/2024 ACUTE HEPAT ITIS PANEL HCV Ab Non Reacti ve non reacti ve [facility]med at: [facility] [address] [facility], [place] [address] Lab Direc tor: Luis copeland PhD, Phone : [phone] Not Available [facility] ([facility]) [address] [facility], [place], [address], 10/03/2024 06:17:00 10/02/20 24 10/03/2024 ACUTE HEPAT ITIS PANEL interpretati on: Commen t . Not infec jelena with HCV unles s early or acute infec tion is suspe cted (whic h may be delay ed in an immun ocomp romis ed indiv idual ), or other evide nce exist s to indic ate HCV infec tion. [facility] r[facility] at: [facility] [address] [facility], [place], [place] [id number] Lab Direc tor: Luis copeland PhD, Phone : [phone] Not Available [facility] ([facility]) [address] [facility], [place], [address], 10/03/2024 06:17:00 10/02/20 24 10/03/2024 ARNAV W/REF LEEANN IF POSIT LILIAM antinuclear Ab, direct NEGATI VE negati ve Perfo rmed at: [facility] n [address] [facility], [place], [place] [id number] Lab Direc tor: Luis copeland PhD, Phone : [phone] Not Available [facility] ([facility]) [address] [facility], [place], [address], 10/03/2024 13:13:40 10/02/20 24 10/03/2024 MITOC HONDR IAL ANTIB ODIES mitochondria l (M2) Ab <20.0 units 0.0-20 .0 Negat liliam 0.0 - 20.0 Equiv ocal 20.1 - 24.9 Posit liliam >24.9 . Mitoc hondr ial (M2) Antib odies are found in 90-96 % of patie nts with prima ry bilia ry cirrh osis. Perfo rmed at: [facility] [address] [facility], [place], [place] [id number] Lab Direc tor: Luis copeland PhD, Phone : [phone] Not Available [facility] ([facility]) [address] [facility], [place], [address], 10/03/2024 15:14:30 10/02/20 24 10/03/2024 IGG IgG 201 mg/dL 586-16 02 low Resul t confi rmed on matt ntrat ion. Perfo rmed at: [facility] [address] [place], [place] [id number] Lab Direc tor: Luis copeland PhD, Phone : [phone] Not Available [facility] ([facility] [facility] [address] [facility], [place], [address], 10/03/2024 15:14:32 10/02/20 24 10/03/2024 ACTIN (SMOO [...] osis. Perfo rmed at: CB - [facility] [address] [place] [address] 1269 Lab Direc tor: Luis copeland PhD, Phone : [phone] Not Available [facility] ([facility]) [address] , [place], [address], 10/03/2024 15:14:34 10/02/20 24 10/05/2024 BAUTISTA FIBRO SURE PLUS alpha 2-macroglobu jericho, qn 563 mg/dL 110-27 6 high Not Available [facility] ([facility]) [address] [facility], [place], [address], 10/05/2024 06:16:12 10/02/20 24 10/05/2024 BAUTISTA FIBRO SURE PLUS haptoglobin 166 mg/dL 33-346 Not Available [facility] ([facility]) [address] , [place], [address], 10/05/2024 06:16:12 10/02/20 24 10/05/2024 BAUTISTA FIBRO SURE PLUS apolipoprote in A-1 190 mg/dL 116-20 9 Not Available [facility] ([facility]) [address] [place], [address], 10/05/2024 06:16:12 10/02/20 24 10/05/2024 BAUTISTA FIBRO SURE PLUS bilirubin, total 0.2 mg/dL 0.0-1. 2 Not Available [facility] ([facility]) [address] [place], [address], 10/05/2024 06:16:12 10/02/20 24 10/05/2024 BAUTISTA FIBRO SURE PLUS GGT 22 IU/L 0-60 Not Available [facility] ([facility]) [address] [place], [address], 10/05/2024 06:16:12 10/02/20 24 10/05/2024 BAUTISTA FIBRO SURE PLUS ALT (SGPT) p5p 69 IU/L 0-40 high Not Available [facility] ([facility]) [address] [place], [address], 10/05/2024 06:16:12 10/02/20 24 10/05/2024 BAUTISTA FIBRO SURE PLUS AST (SGOT) p5p 48 IU/L 0-40 high Not Available [facility] ([facility]) [address] [place], [address], 10/05/2024 06:16:12 10/02/20 24 10/05/2024 BAUTISTA FIBRO SURE PLUS cholesterol, total 138 mg/dL 100-19 9 Not Available [facility] ([facility]) [address] [place], [address], 10/05/2024 06:16:12 10/02/20 24 10/05/2024 BAUTISTA FIBRO SURE PLUS glucose, serum 156 mg/dL 70-99 high Not Available [facility] ([facility]) [address] [place], [address], 10/05/2024 06:16:12 10/02/20 24 10/05/2024 BAUTISTA FIBRO SURE PLUS triglyceride s 229 mg/dL 0-149 high Not Available [facility] ([facility]) [address] [place], [address], 10/05/2024 06:16:12 10/02/20 24 10/05/2024 BAUTISTA FIBRO [...] Stage F4 - Cirrh osis Not Available [facility] ([facility]) [address] [place], [address], 10/05/2024 06:16:12 10/02/20 24 10/05/2024 BAUTISTA FIBRO SURE PLUS fibrosis stage F1-F2 Not Available [facility] ([facility]) [address] [place], [address], 10/05/2024 06:16:12 10/02/20 24 10/05/2024 BAUTISTA FIBRO SURE PLUS fibrosis score 0.32 0.00-0 .21 high Not Available [facility] ([facility]) [address] [place], [address], 10/05/2024 06:16:12 10/02/20 24 10/05/2024 BAUTISTA FIBRO SURE PLUS steatosis score 0.49 0.00-0 .40 high Not Available [facility] ([facility]) [address] [place], [address], 10/05/2024 06:16:12 10/02/20 24 10/05/2024 BAUTISTA FIBRO SURE PLUS steatosis grade Commen t S1 - Mild Steat osis (But Clini filomena Signi fican t) (5- 33%) Not Available [facility] ([facility]) [address] [place], [address], 10/05/2024 06:16:12 10/02/20 24 10/05/2024 BAUTISTA FIBRO SURE PLUS steatosis scoring Commen t . <=0.4 0 = S0 - No Steat osis (<5%) 0.40 - 0.55 = S1 - Mild Steat osis (but Clini filomena Signi fican t) (5-33 %) >0.55 = S2S3- Moder ate to Sever e Steat osis (Clin icall y Signi fican t) (34-1 00%) Not Available [facility] ([facility]) [address], [place], [address], 10/05/2024 06:16:12 10/02/20 24 10/05/2024 BAUTISTA FIBRO SURE PLUS bautista scoring Commen t . <=0.2 5 = N0 - No BAUTISTA/ MASH 0.25 - 0.50 = N1 - Mild BAUTISTA/ MASH 0.50 - 0.75 = N2 - Moder ate BAUTISTA/ MASH >0.75 = N3 - Sever e BAUTISTA/ MASH Not Available [facility] ([facility]) [address], [place], [address], 10/05/2024 06:16:12 10/02/20 24 10/05/2024 BAUTISTA FIBRO SURE PLUS bautista grade Commen t N3 - Sever e BAUTISTA Not Available [facility] ([facility]) [address], [place], [address], 10/05/2024 06:16:12 10/02/20 24 10/05/2024 BAUTISTA FIBRO SURE PLUS bautista score 0.82 0.00-0 .25 high Not Available [facility] ([facility]) [address], [place], [address], 10/05/2024 06:16:12 10/02/20 24 10/05/2024 BAUTISTA FIBRO [...] ction s of fibro sis. Not Available [facility] ([facility]) [address], [place], [address], 10/05/2024 06:16:12 10/02/20 24 10/05/2024 BAUTISTA FIBRO SURE PLUS methodology: Commen t . The jerel mello teste d are perfo rmed by Fibro Sure- Speci fic metho ds. Not inten ded for use with other diagn ostic consi derat ions. Not Available [facility] ([facility]) [address], [place], [address], 10/05/2024 06:16:12 10/02/20 24 10/05/2024 BAUTISTA FIBRO SURE PLUS interpretati on: Commen t . Quant itati ve resul ts of 10 bioch emica ls in combi natio n with age and gende r, are jerel zed using a compu tatio nal algor ithm to provi de a quant itati ve surro gate marke r (0.0- 1.0) of liver fibro sis (Aladdin vir F0-F4 ), hepat ic steat osis [...] fican t NAFLD /MASL D fibro sis (Aladdin vir F2-F4 ) and 11% had cirrh [...] ficit y of 71%. 3 Not Available [facility] ([facility]) [address], [place], [address], 10/05/2024 06:16:12 10/02/20 24 10/05/2024 BAUTISTA FIBRO SURE PLUS comment: Commen t . This test was devel oped and its perfo rmanc e natty cteri stics deter mined by [employer] . It has not been clear ed or appro mellissa by the Food and Drug Admin istra tion. . For quest ions regar ding this repor t pleas e conta ct custo geraldine servi ce at [phone]. . Refer ences : . 1. Bev [...] at: BN - [facility] [place] [address] [facility] , [place] [address] Lab Direc tor: Mita cooper MD, Phone : [phone] Not Available [facility] ([facility]) [address] [facility], [place], [address], 10/05/2024 06:16:12 10/02/20 24 10/07/2024 HERED ITARY [...] ders to discu ss resul ts at [phone] [phone] (8534 ). . Test Detai ls: Three varia nts jerel zed: c.845 G>A (p.Cy s282T yr), commo nly refer red to as C282Y c.187 C>G (p.Hi s63As p), commo nly refer red to as H63D c.193 A>T (p.Se r65Cy s), commo nly refer red to as S65C . Metho ds/Li mitat ions: DNA Jerel sis of the HFE gene (NM_0 [id number] .4) was perfo rmed by PCR ampli [...] e natty cteri stics deter mined by [employer] rp. It has not been clear ed [...] 3. doi: 10.10 02/he p.243 30. PMID: 42662 290; PMCID : PMC31 76933 . Cosmo G, Huey lowe P, Flores [...] hg.20 15.12 8. Epub 2014May 20. PMID: 11300 218; PMCID : PMC49 49677 . Not Available [facility] ([facility]) [address], [place], [address], 10/07/2024 17:10:09 10/02/20 24 10/07/2024 HERED ITARY HEMOC HROMA TOSIS reviewed by: Alberto kumar Techn ical [place] nent perfo rmed at [facility] rp RTP Profe génesison al [place] nent perfo rmed by: . Labor atory Corpo ratio n of Linnea barragan, Ph.D. , [facility] Dire tor, Molec ular [employer] [facility] [address] [place] [address] Perfo rmed at: TG - [facility] rp RTP [address] [facility] , [place] [address] Lab Dire tor: Anjana Okeefe [facility] , Phone : [phone] Not Available [facility] ([facility]) [address], [place], [address], 10/07/2024 17:10:09 10/02/20 24 10/16/2024 A1A DEFIC [...] dianna n and Clif nts. Not Available [facility] ([facility]) [address], [place], [address], 10/16/2024 17:10:10 10/02/20 24 10/16/2024 A1A DEFIC [...] ders to discu ss resul ts at [phone] GENE (4542 ). . Test Detai ls: Two varia [...] es in the SERPI NA1 gene (NM_0 [id number] .4) was perfo rmed by multi plex [...] e natty cteri stics deter mined by [employer] rp. It has not been clear ed [...] doi: 10.15 326/j copdf .3.32014. 0182. PMID: 82862 891; PMCID : PMC55 32306 . Tony NIEVES, Siddhartha estrada V, Prosper ZAPATA. Alpha -1 Antit rypsi n Defic iency . 2005Sep 08 Updat ed 2019April 02 . In: [place] MP, Uziel cuellar HH, Ariella RA, et al., derek rs. GeneR niko segura(R) Inter net . [facility]ure [place] ([place]): [facility] of [employer] [place]; 1992- 2020. Avail able from: https ://ww w.ncb i.nlm .nih. gov/b ooks/ NBK15 19/ Not Available [facility] ([facility]) [address] [facility], [place], [address], 10/16/2024 17:10:10 10/02/20 24 10/16/2024 A1A DEFIC ENCY PROFI LE electronical ly signed by: Alberto Hadley , PhD [facility] Not Available [facility] ([facility]) [address] [facility], [place], [address], 10/16/2024 17:10:10 10/02/20 24 10/16/2024 A1A DEFIC ENCY PROFI LE a1a rfx to phenotype Not Indica jelena Perfo rmed at: [facility] [address] [facility] , [place] [address] Lab Direc tor: Mita cooper MD, Phone : [phone] Perfo rmed at: TG - [facility] rp RTP [address] [facility] , [place] [address]150 Lab Direc tor: Anjana Okeefe [facility] , Phone : [phone] Not Available [facility] ([facility]) [address] [facility], [place], [address], 10/16/2024 17:10:10 10/02/20 24 10/16/2024 A1A DEFIC ENCY PROFI LE gkjny-3-lefc trypsin,seru m 152 mg/dL 101-18 7 Not Available [facility] ([facility]) [address] [facility], [place], [address], 10/16/2024 17:10:10 10/14/20 24 10/14/2024 [facility], [facility] [address] [place] [address] Phone: Fax: Name: ZEHRA ESPINO Exam Date: : 1964 Age 58 years Gender : F Access ion: [id number] Physic judith: CASBRYCE IA Facili ty: 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 Legall y authen ticate d by MELISSA LAINEZ 2023-11 10:08: 00 CC'ed Logic: Orderi ng Provid er: CAS AVERY Attend ing Provid er: CAS AVERY Admitt ing Provid er: CAS AVERY [facility] [address] [place] [address], [address], 10/30/2024 16:06:24 11/27/19 25 11/27/2024 MRI, abdom en, w/o contr ast [facility] [address] [place] [address] Phone: Fax: Name: ZEHRA ESPINO Exam Date: : 1964 Age 59 years Gender : F Access ion: [id number] Physic judith: BRYCE CARDOZO Facili ty: [facility] Facili ty HSV: Outpat ient Exam: MRI ABD W/O MR ABDOME N WITHOU T IV CONTRA ST, 025 8:59 AM 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 Legall y authen ticate d by TEMO CRAWFORD 11-27 09:59: 00 CC'ed Logic: Orderi ng Provid er: CAS AVERY Attend ing Provid er: CAS AVERY Referr ing Provid er: CAS AVERY Admitt ing Provid er: CAS AVERY [email or web address] [facility] [address] [facility], [place], [address], 12/09/2024 15:47:04 Result Notes None recorded. Procedures Surgical History Date Name Laterality Status Provider Name and Address Organization Details Recorded Time section completed [facility]el [facility] [place] 11/28/2022 11:28:22 Knee Surgery completed Nigel [facility] [place] 11/28/2022 11:28:38 tonsilectomy/adenoi ds completed Nigel [facility] [place] 11/28/2022 11:28:50 thumb surgery completed Nigel [facility] [place] 11/28/2022 11:29:21 repair of shoulder completed Nigel JE[facility] [place] 11/28/2022 11:29:15 procedure on foot completed Nigel [facility] [place] 11/28/2022 11:29:29 Knee Surgery completed Nigel [facility] [place] 11/28/2022 11:29:42 cholecystectomy completed Nigel Marie [facility] [place] 01/02/2023 08:59:30 Imaging Results Imaging Date Name Status LastModified by Organiz ation Details LastModified Time 10/14/2024 US, liver completed [facility] [address] [facility], [place], [address], 10/30/2024 16:06:24 11/27/2024 MRI, abdomen, w/o contrast completed [address] - [facility] Therapy [address] [facility], [place], [address], 12/09/2024 15:47:04 Procedure Notes None recorded. Medical Equipment None Reported. Allergies Allergen ID Allergen Name Allergen Category Reaction Reaction Severity Criticality Documentation Date Start Date Code Code System Note Provider Name and Address Organization Details Recorded Time 18391 lisinopri l medicatio n Not available Not available Not available 10/26/2022 77343 RxNorm Analupe estrada ARIANE Marie [facility] [place] 15:20:06 Medications Name Sig Start Date Stop [...] Updated DateTime 3 175.26 cm 27.4 kg/m2 57840.7 4 g 79 /min 136 mm[Hg] 86 mm[Hg] Nigel THAKKAR - [facility] [place] [facility] [place] 3 11:25:46 Date Recorded Body height Body mass index (BMI) Body weight Heart rate Systolic blood pressure Diastolic blood pressure Provider Name and Address Organization Details Last Updated DateTime 3 175.26 cm 27.1 kg/m2 93491.8 4 g 84 /min 137 mm[Hg] 84 mm[Hg] Nigel THAKKAR - [facility] [place] [facility] [place] 3 08:58:44 Date Recorded Body weight Oxygen saturation Oxygen saturation in Arterial blood by Pulse oximetry Heart rate Systolic blood pressure Diastolic blood pressure Provider Name and Address Organization Details Last Updated DateTime 4 69533.0 8 g 96 % 96 % 85 /min 111 mm[Hg] 61 mm[Hg] Mary THAKKAR - [facility] [place] 4 10:14:49 Date Recorded Body weight Heart rate Systolic blood pressure Diastolic blood pressure Provider Name and Address Organization Details Last Updated DateTime 10/26/2022 19563.37 g 81 /min 117 mm[Hg] 71 mm[Hg] Ana THAKKAR - [facility] [place] 10/26/2022 15:20:45 Social History Question Answer Notes LastModified by [employer] Details LastModified Time Tobacco Smoking Status Former Smoker Nigel estrada, ARIANE Marie [facility] [place] 11/28/2022 11:28:10 What Is Your Level Of Caffeine Consumption? Moderate [email or web address] Information not available 10/01/2024 Sex: Unknown Functional Status Question Answer Note LastModified by [employer] Details LastModified Time Do you use any illicit or recreational drugs? No [email or web address] Information not available 10/01/2024 What is your level of alcohol consumption? None [email or web address] Information not available 10/01/2024 Mental Status None recorded. Family History Relationship [...] Sleep Apnea Y GERD/Reflux N Hepatitis N Cirrhosis N Liver Disease N Heart Disease Y Hypertension N Kidney Disease N Gynecological HistoryNo gynecological history recorded. Obstetrics History GPAL:G 0 P 0 0 0 0 Past Encounters Encounter ID Performer Location Encounter Start Date Encounter Closed Date Diagnosis/Indication Diagnosis SNOMED-CT Code Diagnosis ICD10 Code Diagnosis Note [id number] Johnna Karimi NP [facility] [address] [facility] [address] [place] [address] 10/26/2022 15:08:20 10/26/2022 16:09:30 Steatotic liver disease 712942371 K76.0 - believes PCP checked hepatitis- A and B status, will follow-up and let us know - Avoid NSAIDs and alcohol. - Do not take over 2 g of acetaminop hen daily. - Discussed weight loss and healthy diet.- liver ultrasound done 10/07/2022 , repeat in 6 months- will check labs at next office visit Liver cyst 46648905 K76. 89 - 1.5 cm hepatic cyst- discussed with patient since cyst is less than 4 cm there is no further recommenda tion for additional follow-up Cholelithi asis without obstruction 15391818 K80.20 - Referral placed to Dr. Funk [id number] Antwan Funk MD [facility] [address] [facility] [address] [place] [address] 11/28/2022 10:44:00 11/28/2022 13:50:53 Cholelithiasis without obstruction 68184842 K80.20 [id number] Antwan Funk MD [facility] [address] [facility] [address] [place] [address] 01/02/2023 08:47:14 01/02/2023 09:08:51 Chronic cholecystitis without calculus 09068163 K81.1 [id number] VANESSA CARDOZO NP [facility] [address] [facility] [address] [place] [address] 10/01/2024 09:59:56 10/01/2024 10:56:25 Liver enzymes level above reference range 804402217 R74.01 Screening for malignant neoplasm of colon 804251102 Z12.11 Health Concerns Section Related Observation LastModified by Organization Detai ls LastModified Time None Recorded Concern Status LastModified by Organization Details LastModified Time None Recorded Advance Directives Directive None Recorded Payers Insurance Date Sequence Insurance Name Policy Number Policy Gregorio Covered Member ID Gregorio Member ID Guarantor Name 11/20/2024 1 [place] [employer] [place] [id number] Zehra Espino [id number] Zehra Espino Notes Date Note Type Note Provider Name [...] constipation or hematochezia. Johnna Karimi NP [address] [facility], [place], [address], [facility] [place] [facility] [place] 10/26/2022 16:22:00 10/01/2024 text/html CURRENT: Ms.Sano mckinney is a 58 year old female referred to us by Ms. Saba APRN for elevated liver enzymes. AST 48/ ALT 79 on recent labs. She reports she has had elevated liver enzymes for years dating back to 2011. Liver ultrasound in 2011 showed extensive hepatic steatosis. She does not remember if she saw a welt rougher in the past. She has a distant history of heavy alcohol use in her 20s but now only drinks excessively once a year. She denies history of drug use. No history hepatitis. She denies issues with jaundice, abdominal swelling, easy bleeding, or unintentional weight loss. NO other GI complaints. VANESSA CARDOZO, FIRE PROTECTION DESIGNER [address], [place], [address], [facility] - [place] [facility] [place] 10/01/2024 19:14:11 OBGyn Episode No OBEpisode recorded.
--- NOTE | 2025-03-25 10:55 | CT_ITS ---
PROCEDURE INFORMATION: Exam: CT Right Lower Extremity Without Contrast, Foot Exam date and time: 03/25/2025 11:11 AM Age: 59 years old Clinical indication: Pain; Right foot plantar wound; Additional info: Plantar wound, eval for osteo TECHNIQUE: Imaging protocol: CT of the right lower extremity without contrast was performed. Exam focused on the foot. Radiation optimization: All CT scans at this facility use at least one of these dose optimization techniques: automated exposure control; mA and/or kV adjustment per patient size (includes targeted exams where dose is matched to clinical indication); or iterative reconstruction. COMPARISON: CR XR FOOT WT BEARING RT 3V 03/10/2025 4:48 PM FINDINGS: Bones/joints: No acute fracture or malalignment. Single screw fusion of the 2nd PIP joint. Similar chronic erosion of the 2nd metatarsal head. No specific evidence to suggest acute osteomyelitis. Soft tissues: Soft tissue ulceration involving the plantar aspect of the forefoot with surrounding subcutaneous edema. No obvious abscess, though evaluation is limited by noncontrast technique. IMPRESSION: 1. No specific evidence to suggest acute osteomyelitis. 2. Soft tissue ulceration involving the plantar aspect of the forefoot with surrounding subcutaneous edema.
[2025-03-25 10:59] LABS: Basophils % 0.1 % (0.1-2.0); Eosinophils # 0.1 Kmm3 (0.0-0.4); Eosinophils % 0.6 % (0.1-12.0); Hematocrit 31.9 % (37.0-47.0); Hemoglobin 10.3 g/dL (12.2-16.2); Immature Granulocytes # 0.04 10^3uL; Immature Granulocytes % 0.4 %; Lymphocytes % 9.6 % (10-50); Mean Corpuscular HGB Conc 32.3 g/dL (31.8-35.4); Mean Corpuscular Hemoglobin 31.5 pg (27.0-31.2); Mean Corpuscular Volume 97.6 fl (81-99); Mean Platelet Volume 10.6 fl (7.4-10.4); Monocytes # 0.8 K/mm3 (0.1-1.0); Neutrophils # 8.8 K/mm3 (1.8-7.8); Neutrophils % 82.3 % (37.0-80.0); Nucleated Red Blood Cells # 0 10^3/uL; Nucleated Red Blood Cells % 0 %; Platelet Count 149 K/mm3 (142-424); Red Blood Count 3.27 M/mm3 (4.20-5.40); Red Cell Distribution Width 12.2 % (11.5-17.5); Red Cell Distribution Width-SD 43.6 fL; White Blood Count 10.7 K/mm3 (4.8-10.8)
[2025-03-25 11:03] LABS: Chloride 106 mmol/L (98-107); Sodium 136 mmol/L (136-145)
[2025-03-25 11:04] LABS: Potassium 4.3 mmoL/L (3.5-5.1)
[2025-03-25 11:06] LABS: Alanine Aminotransferase 34 U/L (12-78); Albumin/Globulin Ratio 1.7 (1.1-1.8); Alkaline Phosphatase 73 U/L (38-126); Anion Gap 9.3 mEq/L (5-15); Aspartate Amino Transferase 28 U/L (14-36); Bilirubin,Total 0.5 mg/dl (0.2-1.3); Blood Urea Nitrogen 22 mg/dl (7-17); Carbon Dioxide 25 mmol/L (22.0-30.0); Creatinine Clearance Estimated 104 mL/min (50-200); Estimated Glomerular Filt Rate 73 ml/min (>60); GFR (African American) 89 ML/MIN (>60); Globulin 2.4 g/dL (1.3-3.2); Lactic Acid 1.3 mmol/L (0.7-2.1); Total Protein,Serum 6.4 g/dl (6.3-8.2)
[2025-03-25 11:07] LABS: Calcium 9.3 mg/dl (8.4-10.2); Glucose 199 mg/dl (74-100)
[2025-03-25 11:12] LABS: C-Reactive Protein 186.5 mg/L (0-4)
--- NOTE | 2025-03-25 11:12 | PC.NURSE ---
One set of Blood cultures was obtained. Radiology came and got her as soon as she gets back i will get the second one.
--- NOTE | 2025-03-25 11:14 | PC.NURSE ---
ER On phone with hospitalist
--- NOTE | 2025-03-25 11:21 | HMH.EDGENADL ---
Discharge Plan Disposition Patient Disposition: Admitted Chief Complaint: Wound/Laceration Clinical Impressions Clinical Impression: Diabetic foot, Cellulitis Discharge ED Provider: Galdino Nicole General Adult HPI General Chief complaint: Wound/Laceration Stated complaint: Right ball Foot poss infection chills/sweats Time Seen by Provider: 03/25/25 10:23 Mode of Arrival: Ambulatory Source of Information: Patient Description of Symptoms (Recalled from ER Triage Doc. by RN): Pt presents to the ED with an open wound to the ball of her right foot. pt reports a year ago took a skin graft from the ball of the right foot. pt reports that it all healed up but about a month ago it broke loose and opened back up. pt got in the hot tub on monday and notes sweelling and pain in hger right foot. pt went to [facility] yesterday where they took a culture of the wound and prescribed her Doxycycline. Swelling and redness noted to the right foot. Slough tissue noted around the open wound. No fevers reported. History of Present Illness HPI narrative: Please note that above description of symptoms, in this electronic medical record under categorization of recalled from ER triage doctor by RN are reflective of an initial nursing assessment, however, is not reflective of my full history and physical exam that was personally taken and clarified. Consequentially, this preceding description of symptoms, which may include the patient's categorized chief complaint in the EMR, do not reflect my personal clinical impression, and the ultimate description of history of present illness and patient stated complaints should be deferred to this section of the note. Unless stated otherwise or congruent with this section of the note, additional signs, symptoms, or incongruence should be interpreted as inaccurate with my clinical impression. Related Data Home Medications ?Medication ?Instructions ?Recorded ?Confirmed valacyclovir 500 mg tablet 500 mg PO DAILY cold sores 09/08/20 03/24/25 blood-glucose sensor ([employer] G7 #1 ea 08/22/24 03/24/25 Sensor device) gabapentin 400 mg capsule 400 mg PO BID 08/22/24 03/24/25 metformin 500 mg tablet,extended 500 mg PO DAILY 08/22/24 03/24/25 release 24 hr semaglutide 1 mg/dose (4 mg/3 mL) 2 mg SQ WEEKLY 08/22/24 03/24/25 subcutaneous pen injector (Ozempic) diclofenac sodium 50 mg mg PO ONCE 12/23/24 05/12/25 tablet,delayed release Previous Rx's ?Medication ?Instructions ?Recorded aspirin 81 mg chewable tablet 81 mg PO DAILY #30 tabs 08/07/23 empagliflozin 10 mg tablet 10 mg PO DAILY #30 tabs 08/07/23 (Jardiance) losartan 25 mg tablet 25 mg PO DAILY High blood pressure 08/07/23 #90 tabs rosuvastatin 10 mg tablet See Rx Instructions .Route 08/07/23 .COMPLEX #90 tabs pantoprazole 40 mg tablet,delayed 40 mg PO DAILY #30 tabs 08/22/24 release clopidogrel 75 mg tablet See Rx Instructions .Route 08/26/24 .COMPLEX #90 tabs mupirocin 2 % topical ointment 1 applic topical BID cellulitis 3 12/09/24 weeks #22 grams bisoprolol fumarate 5 mg tablet 5 mg PO DAILY #90 tabs 02/17/25 clobetasol 0.05 % topical cream See Rx Instructions .Route 02/18/25 .COMPLEX #60 grams doxycycline hyclate 100 mg tablet 100 mg PO BID #20 tabs 03/24/25 Allergies Allergy/AdvReac Type Severity Reaction Status Date / Time lisinopril AdvReac cough Verified 03/24/25 08:27 [facility] Disclaimer: The information contained in this section may have been updated after the patient was seen, as this information can be updated by other users. Medical History Diabetes Hammertoe of right foot Trigger finger TRIGGER FINGER SURGERY RIGHT HAND Sleep apnea Allergies Skin cancer Encounter for pre-operative cardiovascular clearance Palpitations Ex-smoker Coronary artery disease Hyperlipidemia CONNOR (obstructive sleep apnea) FH: CAD (coronary artery disease) Diabetes Surgical History Hx of section X2 H/O arthroscopic knee surgery Hx of shoulder surgery RIGHT H/O adenoidectomy History of tonsillectomy History of appendectomy History of cholecystectomy History of knee replacement S/P coronary artery stent placement Family History Father Heart attack Brother Heart attack Social History Smoking Status: Never smoker alcohol intake: never substance use type: denies use current occupational status: employed Travel in the last 8 weeks?: None household members: none housing: house current occupation: [employer] caffeine: No Have you lived/traveled outside [place] in past 30 days?: No Contact w/someone who lives/traveled outside [place] past 30 days?: No Exposure to someone with infectious disease in past 14 days?: No Do you have a fever (greater than 100.4 F or 38 C)?: No Have you tested positive for COVID-19?: No Exposed to someone with COVID-19 in past 14 days?: No Do you have a sore throat?: No Do you have a cough?: No Do you have any weakness?: No Do you have any diarrhea?: No Are you experiencing any unusual bleeding?: No Do you have any muscle aches/pain?: No Do you have any abdominal pain?: No Are you experiencing loss of taste or smell?: No Other Medical History Have you received the Flu Vaccine for this season: Yes Have you received the Pneumonia Vaccine: Yes ROS Obtained: Yes All systems reviewed & no additional complaints except as documented Physical Exam General General appearance: alert Head Head exam: atraumatic and normocephalic Eye Eye exam: Present normal appearance, PERRL and EOMI Neck Neck exam: Present normal inspection, full ROM and trachea midline Respiratory Respiratory exam: Absent respiratory distress, wheezes, stridor, accessory muscle use or prolonged expiratory phase Cardiovascular Cardiovascular exam: Present other (Pulses equal symmetric in upper and lower extremities) Abdominal Exam Abdominal exam: Present soft; Absent distention, tenderness or pulsatile mass Extremities Exam Extremities exam: Present edema and other (Edema, redness, fluctuance at the base of 2nd and 3rd digits left foot with associated diabetic foot wound) Neurological Exam Neurological exam: Present alert, oriented X3 and CN II-XII intact; Absent motor sensory deficit Skin Skin exam: Present warm and dry; Absent diaphoresis or erythema Medical Decision Making Medical Records Medical records reviewed: Yes I reviewed the patient's medical records. Screening: Per USPSTF and CDC recommendations, given the prevalence of disease in our region, it is our hospital?s policy to screen for HIV and viral Hepatitis for all patients aged 18 and over and those with ongoing risk factors. [place] Inquiry Pt receiving controlled substance: No [place] was queried for this patient: No Vital Signs: 05/13/25 10:18 03/25/25 12:14 Temperature 98.0 F Temperature Source Oral Pulse Rate 77 Pulse Rate [Right] 84 Respiratory Rate 19 12 Blood Pressure 112/59 L Blood Pressure [Right Arm] 140/56 L Blood Pressure Mean [Right Arm] 84 Blood Pressure Source [Right Arm] Automatic Cuff Blood Pressure Position [Right Arm] Supine 02 Sat by Pulse Oximetry 99 100 Oxygen Delivery Method Room Air Room Air Lab Data Lab Results 03/25/25 10:50: WBC 10.7, RBC 3.27 L, Hgb 10.3 L, Hct 31.9 L, MCV 97.6, MCH 31.5 H, MCHC 32.3, RDW 12.2, Plt Count 149, MPV 10.6 H, Neut % (Auto) 82.3 H, Lymph % (Auto) 9.6 L, [place] % (Auto) 7.0, Eos % (Auto) 0.6, Baso % (Auto) 0.1, Neut # (Auto) 8.8 H, Lymph # (Auto) 1.0, [place] # (Auto) 0.8, Eos # (Auto) 0.1, Baso # (Auto) 0.0, ESR 117 H, Sodium 136, Potassium 4.3, Chloride 106, Carbon Dioxide 25, Anion Gap 9.3, BUN 22 H, Creatinine 0.80, Estimated Creat Clear 104, Estimated GFR 73, Est GFR ( Amer) 89, Glucose 199 H, Lactate 1.3, Calcium 9.3, Total Bilirubin 0.5, AST 28, ALT 34, Alkaline Phosphatase 73, C-Reactive Protein 186.5 H, Total Protein 6.4, Albumin 4.0, Globulin 2.4, Albumin/Globulin Ratio 1.7, HCV Ab DEBBY w/Rflx PCR Qn Negative, HIV Ag/Ab Combo Qual Negative 03/25/25 10:50 03/25/25 10:50 Orders (Tests/Meds): ED MEDICATIONS Generic Name Dose Route Start Last Admin Trade Name Freq PRN Reason Stop Dose Admin Vancomycin/PEG/NADA/Lysine/Water 1.75 gm in 350 mls @ 175 mls/hr 03/25/25 10:45 Vancomycin 1.75gm/350ml (Peg) Premix IV 03/25/25 12:44 ONCE ONE Discontinued Medications Generic Name Dose Route Start Last Admin Trade Name Glenq PRN Reason Stop Dose Admin Cefepime HCl 2 gm/ Sodium 100 mls @ 200 mls/hr 03/25/25 10:36 Chloride IV 03/25/25 11:05 ONCE ONE Metronidazole 500 mg in 100 mls @ 100 mls/hr 03/25/25 10:36 03/25/25 12:04 Flagyl 500mg/100ml Ivpb IV 03/25/25 11:35 100 mls/hr ONCE ONE Administration Miscellaneous 1 each 03/25/25 10:45 Vancomycin Consult Request NOTAPPLIC 04/24/25 10:44 CONSULT PHARMACY EZ ORDERS Category Date Time Status CT foot RT wo con Stat Cat Scan 03/25/25 10:55 Completed CBC w/Auto Diff [Complete Blood Count Auto Diff] Stat Lab 03/25/25 10:50 Completed CMP [Comprehensive Metabolic Panel] Stat Lab 03/25/25 10:50 Completed CRP [C-Reactive Protein] Stat Lab 03/25/25 10:50 Completed ESR [Erythrocyte Sedimentation Rate] Stat Lab 03/25/25 10:50 Completed HIV Combo Stat Lab 03/25/25 10:50 Completed Hepatitis C Ab Qual. W/ RFX Stat Lab 03/25/25 10:50 Completed Lactic Acid Stat Lab 03/25/25 10:50 Completed Blood Culture Stat Micro 03/25/25 11:51 Ordered Medical Decision Narrative: This is a 59-year-old female presenting with diabetic foot wound on the left foot. Patient states that she has been working with podiatry for this diabetic foot wound. Yesterday she started having fevers and chills, redness streaking up the foot and severe swelling today. It keane, mildly painful, otherwise no symptoms. Came in for further evaluation. Supposed to have podiatry follow-up today. History was obtained via conversation with patient. On arrival, patient hemodynamically stable, alert, oriented x4, appropriate, GCS 15, moving all extremities spontaneously, pupils equal and reactive to light. Full physical exam performed and significant for well-appearing female in no acute distress. She does have redness and swelling in the foot that seems to be tracking up toward the ankle. Fluctuance, drainage on application of pressure. It is warm as well. 2 cm wound on the plantar surface of the foot at base of toes 2 and 3. Differential includes cellulitis, osteomyelitis, deep space infection, sepsis, among others. Patient placed on continuous cardiac monitoring and continuous pulse ox with initial blood pressure 140/56, heart rate 84, saturation 99% on room air. Patient was given vancomycin, cefepime, Flagyl for symptomatic management and correction of underlying abnormalities. Workup independently interpreted and significant for nonactionable CBC. Patient's ESR elevated at 117, CRP elevated at 186 glucose 200 normal chemistries. I contacted the hospitalist and case was discussed at length, wanted me to discuss with podiatry first. Podiatry was contacted and case was discussed at length and formally consulted, recommended admission, antibiotics, debridement. Because patient at baseline without signs or symptoms of clinical decompensation, deemed appropriate for discharge. Results were relayed to patient who voiced understanding and were agreeable to outpatient management and follow up. I discussed my clinical impression with patient and answered all questions. At this time, the evidence for any other entities in the differential is insufficient to warrant any further testing or ED observation. This was explained as well. Advisory was given that persistent or worsening symptoms require further evaluation. I confirmed the understanding of this discussion. Complex Director disclaimer Much of this encounter note is an electronic shampooer spoken language to printed text. Electronic shampooer of the spoken language may permit errors. Although I have reviewed the note, some errors may still exist. Critical Care Critical Care Time Critical Care Time: No
--- NOTE | 2025-03-25 11:31 | PC.NURSE ---
I stuck the Patient 2 more times and could not get the blood. I informed the RN and another tech. Doris Stephenson is going to try again.
[2025-03-25 11:35] LABS: Erythrocyte Sedimentation Rate 117 mm/hr (0-30)
--- NOTE | 2025-03-25 11:44 | PC.NURSE ---
dr jackie tang
--- NOTE | 2025-03-25 11:57 | PC.NURSE ---
dr jackie tang
[2025-03-25 12:01] LABS: HIV Combo NEGATIVE (Negative)
[2025-03-25] MEDS: METRONIDAZ/SOD CHL 500 MG/100 ML PIGGYBACK 100 MG IV ×2 (12:04→21:16)
--- NOTE | 2025-03-25 12:08 | PC.NURSE ---
BORIS DONIS on phone with dr mejia
[2025-03-25 12:09] LABS: Hepatitis C Ab Qual. W/ RFX NEGATIVE (Negative)
--- NOTE | 2025-03-25 12:11 | PC.NURSE ---
call made to data warehouse consultant for bed placement
[2025-03-25 12:14] VITALS: BP 112/59; PULSE 77; RESP 12; O2SAT 100
--- NOTE | 2025-03-25 12:17 | P.HP_ITS ---
History of Present Illness *Admission Date: 03/25/25 *Reason for visit:: foot wound, redness *History of present illness: Ms. Shepherd is a 59-year-old female with diabetes. She has had a wound on her right foot for some time. Has been following with podiatry service as an outpatient. History of right subsecond to third metatarsal diabetic foot ulcer previously completely healed. Has had a history of surgery at that site along with skin grafting prior to its healing. Over the past month however, she has had a reinjury to the plantar surface of her foot with development of increased redness and signs of infection over the past 48 hours. Presents to the ER today with finding of new diabetic foot ulcer on the plantar surface of her right foot. States that she has had chills and sweats for the past 2 days. Increased swelling of the right foot on the plantar surface below her second toe. There are some streaking up the top of her right foot that is occurred over the past 24 hours per her report. Denies any nausea or vomiting. Denies any shortness of breath or confusion. Workup in the ER with white count of 10.7, ESR elevated at 117. CRP of 186. CT obtained today in the ED with no acute fracture. No specific evidence to suggest acute osteomyelitis but does have concern for abscess and diabetic foot ulcer. Podiatry consulted. Planning to take to the OR in the morning for debridement. Medicine consulted for admission and further management. Initiated on broad-spectrum antibiotics with vancomycin, cefepime, Flagyl. Patient is comfortable and hemodynamically stable at time of evaluation after arriving to the floor. On room air. Afebrile. Daughter at bedside helps supplement [facility] Disclaimer: The information contained in this section may have been updated after the patient was seen, as this information can be updated by other users. Medical History GERD (gastroesophageal reflux disease) HLD (hyperlipidemia) Hammertoe of right foot Trigger finger Sleep apnea Allergies Skin cancer Encounter for pre-operative cardiovascular clearance Palpitations Ex-smoker Coronary artery disease Hyperlipidemia CONNOR (obstructive sleep apnea) FH: CAD (coronary artery disease) Diabetes Surgical History Hx of cardiac cath Hx of section H/O arthroscopic knee surgery Hx of shoulder surgery H/O adenoidectomy History of tonsillectomy History of appendectomy History of cholecystectomy History of knee replacement S/P coronary artery stent placement Family History Father Heart attack Brother Heart attack Social History Smoking Status: Never smoker alcohol intake: never substance use type: denies use current occupational status: employed Travel in the last 8 weeks?: None household members: none housing: house current occupation: [employer] caffeine: No Contact w/someone who lives/traveled outside [place] past 30 days?: No Exposure to someone with infectious disease in past 14 days?: No Do you have a fever (greater than 100.4 F or 38 C)?: No Have you tested positive for COVID-19?: No Exposed to someone with COVID-19 in past 14 days?: No Do you have a sore throat?: No Do you have a cough?: No Do you have any weakness?: No Are you experiencing any nausea/vomitting?: No Do you have any diarrhea?: No Are you experiencing any unusual bleeding?: No Do you have any muscle aches/pain?: No Do you have any abdominal pain?: No Are you experiencing loss of taste or smell?: No Other Medical History Have you received the Flu Vaccine for this season: Yes Have you received the Pneumonia Vaccine: Yes Review of Systems Review of Systems Review of systems (narrative): 14 point review of systems performed, pertinent positives and negatives as per HPI Meds Home Medications and Allergies Home Medications ?Medication ?Instructions ?Recorded ?Confirmed ?Type valacyclovir 500 mg tablet 500 mg PO DAILY cold sores 09/08/20 03/25/25 History aspirin 81 mg chewable tablet 81 mg PO DAILY #30 tabs 08/07/23 03/25/25 Rx empagliflozin 10 mg tablet 10 mg PO DAILY #30 tabs 08/07/23 03/25/25 Rx (Jardiance) blood-glucose sensor ([place] G7 #1 ea 08/22/24 03/25/25 History Sensor device) gabapentin 400 mg capsule 400 mg PO TID 08/22/24 03/25/25 History metformin 500 mg tablet,extended 500 mg PO DAILY 08/22/24 03/25/25 History release 24 hr diclofenac sodium 50 mg 50 mg PO BIDP PRN Mild Pain (Scale 11/04/24 03/25/25 History tablet,delayed release Score 1-4) bisoprolol fumarate 5 mg tablet 5 mg PO DAILY #90 tabs 02/17/25 03/25/25 Rx doxycycline hyclate 100 mg tablet 100 mg PO BID #20 tabs 03/24/25 03/25/25 Rx clobetasol 0.05 % topical cream 1 applic topical BID 03/25/25 03/25/25 History clopidogrel 75 mg tablet 75 mg PO DAILY 03/25/25 03/25/25 History fluticasone propionate 50 1 spray intranasal DAILY 03/25/25 03/25/25 History mcg/actuation nasal spray,suspension losartan 25 mg tablet 25 mg PO DAILY 03/25/25 03/25/25 History rosuvastatin 10 mg tablet 10 mg PO HS 03/25/25 03/25/25 History tirzepatide 5 mg/0.5 mL 5 mg SQ WEEKLY 03/25/25 03/25/25 History subcutaneous pen injector (Joss) New Prescriptions to Start Prescriptions: Allergies Allergy/AdvReac Type Severity Reaction Status Date / Time lisinopril AdvReac cough Verified 03/24/25 08:27 Exam Data for Last 24 hours Vital signs and Labs for Last 24 Hours: Temp Pulse Resp BP Pulse Ox O2 Del Method 98.0 F 77 12 112/59 L 100 Room Air 03/25/25 10:18 03/25/25 12:14 03/25/25 12:14 03/25/25 12:14 03/25/25 12:14 03/25/25 12:14 Laboratory Results - last 24 hr 03/25/25 10:50: WBC 10.7, RBC 3.27 L, Hgb 10.3 L, Hct 31.9 L, MCV 97.6, MCH 31.5 H, MCHC 32.3, RDW 12.2, Plt Count 149, MPV 10.6 H, Neut % (Auto) 82.3 H, Lymph % (Auto) 9.6 L, [place] % (Auto) 7.0, Eos % (Auto) 0.6, Baso % (Auto) 0.1, Neut # (Auto) 8.8 H, Lymph # (Auto) 1.0, [place] # (Auto) 0.8, Eos # (Auto) 0.1, Baso # (Auto) 0.0, ESR 117 H, Sodium 136, Potassium 4.3, Chloride 106, Carbon Dioxide 25, Anion Gap 9.3, BUN 22 H, Creatinine 0.80, Estimated Creat Clear 104, Estimated GFR 73, Est GFR ( Amer) 89, Glucose 199 H, Lactate 1.3, Calcium 9.3, Total Bilirubin 0.5, AST 28, ALT 34, Alkaline Phosphatase 73, C-Reactive Protein 186.5 H, Total Protein 6.4, Albumin 4.0, Globulin 2.4, Albumin/Globulin Ratio 1.7, HCV Ab DEBBY w/Rflx PCR Qn Negative, HIV Ag/Ab Combo Qual Negative I & O for Last 24 hours: Intake & Output 03/22/25 03/23/25 03/24/25 03/25/25 23:59 23:59 23:59 23:59 Weight 88.451 kg Constitutional Constitutional: no acute distress, average body habitus and cooperative *Routine HEENT Exam Head: Present normocephalic Eye: Present EOMI and PERRL ENT: Present mucous membranes moist *Routine Neck Exam Neck: Present supple; Absent lymphadenopathy *Routine Respiratory Exam Respiratory: Present CTA bilaterally; Absent rhonchi, wheezes or crackles *Routine Cardiovascular Exam Cardiovascular: Present RRR *Routine Abdominal Exam Abdominal: Present soft and normoactive bowel sounds; Absent tenderness *Routine Rectal Exam Rectal:: deferred *Routine Genitalia Exam Genitalia:: deferred *Routine Extremities Exam Extremities: Absent cyanosis, clubbing or edema Comments: Erythema streaking up dorsum of right foot superficial to second metatarsal. Fluctuant ulceration of plantar surface overlying second third metatarsal. *Routine Skin Exam Skin: Present warm; Absent rash *Routine Neurological Exam Neurological: Present alert, oriented X3, sensory deficit (Decreased sensation in feet) and moving all extremities; Absent altered mental status Assessment and Plan *Assessment and plan (1) Diabetic ulcer of foot associated with diabetes mellitus due to underlying condition, with fat layer exposed: Problem Comment: Right sub 2nd DFU Status: Acute Qualifiers: Diabetic foot ulcer location: unspecified part of foot Laterality: right Qualified Code(s): E08.621 - Diabetes mellitus due to underlying condition with foot ulcer; L97.512 - Non-pressure chronic ulcer of other part of right foot with fat layer exposed Category: Medical Code(s): E08.621 - Diabetes mellitus due to underlying condition with foot ulcer; L97.502 - Non-pressure chronic ulcer of other part of unspecified foot with fat layer exposed (2) Cellulitis: Status: Acute Qualifiers: Laterality: right Site of cellulitis: extremity Site of cellulitis of extremity: lower extremity Qualified Code(s): L03.115 - Cellulitis of right lower limb Category: Medical Code(s): L03.90 - Cellulitis, unspecified (3) Diabetic ulcer of toe of right foot: Status: Acute Qualifiers: Diabetes mellitus type: type 2 Non-pressure ulcer stage: with fat layer exposed Qualified Code(s): E11.621 - Type 2 diabetes mellitus with foot ulcer; L97.512 - Non-pressure chronic ulcer of other part of right foot with fat layer exposed Category: Medical Code(s): E11.621 - Type 2 diabetes mellitus with foot ulcer; L97.519 - Non-pressure chronic ulcer of other part of right foot with unspecified severity (4) Diabetic foot: Status: Acute Category: Medical Code(s): E11.8 - Type 2 diabetes mellitus with unspecified complications (5) S/P coronary artery stent placement: Status: Acute Category: Surgical Code(s): Z95.5 - Presence of coronary angioplasty implant and graft (6) Hyperlipidemia: Status: Acute Qualifiers: Hyperlipidemia type: unspecified Qualified Code(s): E78.5 - Hyperlipidemia, unspecified Category: Medical Code(s): E78.5 - Hyperlipidemia, unspecified (7) Diabetes: Status: Acute Qualifiers: Diabetes mellitus complication status: with other specified complication Diabetes mellitus residential insulin use: unspecified 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 status Diabetes mellitus type: other specified (including OTIS) Qualified Code(s): E13.69 - Other specified diabetes mellitus with other specified complication Category: Medical Code(s): E11.9 - Type 2 diabetes mellitus without complications (8) Acquired hammertoe of right foot: Status: Acute Category: Medical Code(s): M20.41 - Other hammer toe(s) (acquired), right foot (9) Cellulitis of third toe, right: Status: Acute Category: Medical Code(s): L03.031 - Cellulitis of right toe (10) Infection of toe: Status: Acute Category: Medical Code(s): L08.9 - Local infection of the skin and subcutaneous tissue, unspecified (11) Incurvated nail: Status: Acute Category: Medical Code(s): L60.8 - Other nail disorders (12) Foot pain: Status: Acute Qualifiers: Laterality: bilateral Qualified Code(s): M79.671 - Pain in right foot; M79.672 - Pain in left foot Category: Medical Code(s): M79.673 - Pain in unspecified foot Plan 59-year-old female with diabetes and neuropathy in her feet. Presents with worsening signs of infection in her foot concerning for diabetic foot ulcer with infection. Discussed case with ER physician, request admission for further management. I agreed to admit for further care. Initiated on broad-spectrum antibiotics. Podiatry consulted. Planning on surgical debridement in the morning. Necessitating inpatient care. Problems addressed as follows: Diabetic ulcer of right foot complicated by cellulitis - Continue vancomycin, cefepime, Flagyl IV. - White count normal at 10. Repeat CBC, CMP, magnesium ordered for the morning - Per my review of imaging, does not have obvious osteomyelitis. Does have significant edema concerning for abscess/soft tissue infection - Discussed case with podiatry, planning on debridement in the morning. Patient n.p.o. at midnight - Wound culture obtained at bedside. Diabetes: A1c historically well-controlled less than 7, repeat ordered and pending. On oral antihyperglycemics at this time. - Continue empagliflozin 10 mg daily, metformin extended release 500 mg daily, hold Mounjaro in the inpatient setting - Fingersticks ACHS with sliding scale insulin ACHS. Okay to use continuous glucose monitor as substitute for fingersticks Hypertension CAD - continue losartan 25 mg daily, bisoprolol 5 mg daily. Holding aspirin and Plavix, will resume after surgery - Hold Crestor in the perioperative setting, will resume after surgery Full code Diabetic diet, n.p.o. midnight Consider anticoagulation after surgery
--- NOTE | 2025-03-25 12:23 | PC.NURSE ---
report called to kamron on second floor
[2025-03-25] MEDS: CEFEPIME HCL 2 GM in 0.9 % SODIUM CHLORIDE 100 ML IV ×3 (12:29→22:15)
--- NOTE | 2025-03-25 12:29 | PC.NURSE ---
dr mejia at bedside
--- NOTE | 2025-03-25 12:29 | EXP.PHA.CONS ---
Pharmacy Consult Date: 03/25/25 Time: 12:29 Referring provider: DR. TOURE Reason for Consult:: VANCOMYCIN DOSING Allergies Allergy/AdvReac Type Severity Reaction Status Date / Time lisinopril AdvReac cough Verified 03/24/25 08:27 Home Medications ?Medication ?Instructions ?Recorded ?Confirmed ?Type valacyclovir 500 mg tablet 500 mg PO DAILY cold sores 09/08/20 03/24/25 History aspirin 81 mg chewable tablet 81 mg PO DAILY #30 tabs 08/07/23 03/24/25 Rx empagliflozin 10 mg tablet 10 mg PO DAILY #30 tabs 08/07/23 03/24/25 Rx (Jardiance) losartan 25 mg tablet 25 mg PO DAILY High blood pressure 08/07/23 03/24/25 Rx #90 tabs rosuvastatin 10 mg tablet See Rx Instructions .Route 08/07/23 03/24/25 Rx .COMPLEX #90 tabs blood-glucose sensor ([place] G7 #1 ea 08/22/24 03/24/25 History Sensor device) gabapentin 400 mg capsule 400 mg PO BID 08/22/24 03/24/25 History metformin 500 mg tablet,extended 500 mg PO DAILY 08/22/24 03/24/25 History release 24 hr pantoprazole 40 mg tablet,delayed 40 mg PO DAILY #30 tabs 08/22/24 03/24/25 Rx release semaglutide 1 mg/dose (4 mg/3 mL) 2 mg SQ WEEKLY 08/22/24 03/24/25 History subcutaneous pen injector (Ozempic) clopidogrel 75 mg tablet See Rx Instructions .Route 08/26/24 03/24/25 Rx .COMPLEX #90 tabs diclofenac sodium 50 mg mg PO ONCE 11/04/24 03/24/25 History tablet,delayed release mupirocin 2 % topical ointment 1 applic topical BID cellulitis 3 12/09/24 03/24/25 Rx weeks #22 grams bisoprolol fumarate 5 mg tablet 5 mg PO DAILY #90 tabs 02/17/25 03/24/25 Rx clobetasol 0.05 % topical cream See Rx Instructions .Route 02/18/25 03/24/25 Rx .COMPLEX #60 grams doxycycline hyclate 100 mg tablet 100 mg PO BID #20 tabs 03/24/25 03/24/25 Rx New Prescriptions to Start Prescriptions: Height: 1.75 m Weight: 88.451 kg Laboratory Results:: Laboratory Results - last 24 hr 03/25/25 10:50: WBC 10.7, RBC 3.27 L, Hgb 10.3 L, Hct 31.9 L, MCV 97.6, MCH 31.5 H, MCHC 32.3, RDW 12.2, Plt Count 149, MPV 10.6 H, Neut % (Auto) 82.3 H, Lymph % (Auto) 9.6 L, [place] % (Auto) 7.0, Eos % (Auto) 0.6, Baso % (Auto) 0.1, Neut # (Auto) 8.8 H, Lymph # (Auto) 1.0, [place] # (Auto) 0.8, Eos # (Auto) 0.1, Baso # (Auto) 0.0, ESR 117 H, Sodium 136, Potassium 4.3, Chloride 106, Carbon Dioxide 25, Anion Gap 9.3, BUN 22 H, Creatinine 0.80, Estimated Creat Clear 104, Estimated GFR 73, Est GFR ( Amer) 89, Glucose 199 H, Lactate 1.3, Calcium 9.3, Total Bilirubin 0.5, AST 28, ALT 34, Alkaline Phosphatase 73, C-Reactive Protein 186.5 H, Total Protein 6.4, Albumin 4.0, Globulin 2.4, Albumin/Globulin Ratio 1.7, HCV Ab DEBBY w/Rflx PCR Qn Negative, HIV Ag/Ab Combo Qual Negative Medical History: Medical History (Updated 03/25/25 @ 12:18 by Galdino Nicole MD) Diabetes Hammertoe of right foot Trigger finger Sleep apnea Allergies Skin cancer Encounter for pre-operative cardiovascular clearance Palpitations Ex-smoker Coronary artery disease Hyperlipidemia CONNOR (obstructive sleep apnea) FH: CAD (coronary artery disease) Diabetes Assessment and Plan Assessment and plan all Dx Assessment and Plan for all problems:: Pharmacokinetic dosing service Objective: Patient: Floor: Age: 59 yo Serum creatinine: 0.80 mg/dL Height: 68.9 Inches Weight (kg): 88.5 Assessment: IBW (kg): 65.97 Dosing wt(kg): 88.5 Estimated Creatinine clearance (ml/min): 77.9 CRCL method: Cockcroft and Gault using ibw(default). Drug selected: Vancomycin Loading dose (mg): Vd (liters): 66.4 (factor used: 0.75 L/kg) Usrjit (hr-1): 0.069 Half life (hrs): 10.05 CLvanco=?? 4.582 L/hr Recommended dose: 1750 mg Interval: 18 hrs Infusion time (hrs): 2.0 Predicted peak (mcg/mL): 34.6 Predicted trough (mcg/mL): 11.47 Total body weight is being used for vancomycin dosing. Recommendations: Give Vancomycin 1750 mg q 18 hrs with an expected Cpeak of 34.6 mcg/ml and an expected Ctrough of 11.47 mcg/ml AUC 0-24 /MIGUEL Data: MIGUEL 0.5 mcg/mL:?? AUC/MIGUEL:? 1018.5 MIGUEL 1.0 mcg/mL:?? AUC/MIGUEL:? 509.2 --------- MIGUEL 1.5 mcg/mL:?? AUC/MIGUEL:? 339.5 MIGUEL 2.0 mcg/mL:?? AUC/MIGUEL:? 254.6 Thank you for the consult, will continue to follow. -ROMY MYERSD
[2025-03-25 12:35] VITALS: BP 112/59; PULSE 77; RESP 12; TEMP 36.7; O2SAT 100
--- NOTE | 2025-03-25 12:45 | HMH.PHAINT1 ---
Pharmacy Intervention Comments: MEDICATION RECONCILIATION COMPLETED ON PATIENT USING EXTERNAL FILL HISTORY FROM PHARMACY. -KRISTAL HOYT, ROMYD
[2025-03-25 12:46] VITALS: BP 110/64; PULSE 82; RESP 16; O2SAT 97; BMI 28.8
[2025-03-25] MEDS: VANCOMYCIN/WATER FOR INJ (PEG) 1.75 GM/350 ML PIGGYBACK IV (12:49)
--- NOTE | 2025-03-25 12:49 | EXP.POD.CONS ---
History of Present Illness *Admission Date: 03/25/25 *Reason for visit:: Right sub-2nd DFU, celluitis/ abscess *History of present illness: Podiatry patient presents to the ER with pain, chills and sweats from her Right sub 2nd (ball of foot) DFU that became worse after going into her hot tub on Monday. Patient started to see increase in redness and swelling extending of her right foot and lower leg, serous drainage weeping from the opening and was cultured. Denies any fever currently or any loss of appetite. Patient was able to eat a breakfast sandwich around 0700 this morning and keep it down. [facility] Disclaimer: The information contained in this section may have been updated after the patient was seen, as this information can be updated by other users. Medical History (Updated 03/25/25 @ 13:17 by Asmita Rogers APRN) GERD (gastroesophageal reflux disease) HLD (hyperlipidemia) Hammertoe of right foot Trigger finger Sleep apnea Allergies Skin cancer Encounter for pre-operative cardiovascular clearance Palpitations Ex-smoker Coronary artery disease Hyperlipidemia CONNOR (obstructive sleep apnea) FH: CAD (coronary artery disease) Diabetes Surgical History (Updated 03/25/25 @ 12:48 by Brenda Gallego RN) Hx of cardiac cath Hx of section H/O arthroscopic knee surgery Hx of shoulder surgery H/O adenoidectomy History of tonsillectomy History of appendectomy History of cholecystectomy History of knee replacement S/P coronary artery stent placement Family History Father Heart attack Brother Heart attack Social History (Updated 03/25/25 @ 12:48 by Brenda Gallego RN) Smoking Status: Never smoker alcohol intake: never substance use type: denies use current occupational status: employed Travel in the last 8 weeks?: None household members: none housing: house current occupation: [employer] caffeine: No Contact w/someone who lives/traveled outside [place] past 30 days?: No Exposure to someone with infectious disease in past 14 days?: No Do you have a fever (greater than 100.4 F or 38 C)?: No Have you tested positive for COVID-19?: No Exposed to someone with COVID-19 in past 14 days?: No Do you have a sore throat?: No Do you have a cough?: No Do you have any weakness?: No Are you experiencing any nausea/vomitting?: No Do you have any diarrhea?: No Are you experiencing any unusual bleeding?: No Do you have any muscle aches/pain?: No Do you have any abdominal pain?: No Are you experiencing loss of taste or smell?: No Meds Home Medications and Allergies Home Medications ?Medication ?Instructions ?Recorded ?Confirmed ?Type valacyclovir 500 mg tablet 500 mg PO DAILY cold sores 09/08/20 03/25/25 History aspirin 81 mg chewable tablet 81 mg PO DAILY #30 tabs 08/07/23 03/25/25 Rx empagliflozin 10 mg tablet 10 mg PO DAILY #30 tabs 08/07/23 03/25/25 Rx (Jardiance) blood-glucose sensor (EximSoft-Trianz G7 #1 ea 08/22/24 03/25/25 History Sensor device) gabapentin 400 mg capsule 400 mg PO TID 08/22/24 03/25/25 History metformin 500 mg tablet,extended 500 mg PO DAILY 08/22/24 03/25/25 History release 24 hr diclofenac sodium 50 mg 50 mg PO BIDP PRN Mild Pain (Scale 11/04/24 03/25/25 History tablet,delayed release Score 1-4) bisoprolol fumarate 5 mg tablet 5 mg PO DAILY #90 tabs 02/17/25 03/25/25 Rx doxycycline hyclate 100 mg tablet 100 mg PO BID #20 tabs 03/24/25 03/25/25 Rx clobetasol 0.05 % topical cream 1 applic topical BID 03/25/25 03/25/25 History clopidogrel 75 mg tablet 75 mg PO DAILY 03/25/25 03/25/25 History fluticasone propionate 50 1 spray intranasal DAILY 03/25/25 03/25/25 History mcg/actuation nasal spray,suspension losartan 25 mg tablet 25 mg PO DAILY 03/25/25 03/25/25 History rosuvastatin 10 mg tablet 10 mg PO HS 03/25/25 03/25/25 History tirzepatide 5 mg/0.5 mL 5 mg SQ WEEKLY 03/25/25 03/25/25 History subcutaneous pen injector (Joss) New Prescriptions to Start Prescriptions: Allergies Allergy/AdvReac Type Severity Reaction Status Date / Time lisinopril AdvReac cough Verified 03/24/25 08:27 Exam (Inpt) Vital signs and Labs for Last 24 Hours: Temp Pulse Resp BP Pulse Ox O2 Del Method 98.0 F 82 16 110/64 97 Room Air 03/25/25 12:35 03/25/25 12:46 03/25/25 12:46 03/25/25 12:46 03/25/25 12:46 03/25/25 12:46 Laboratory Results - last 24 hr 03/25/25 10:50: WBC 10.7, RBC 3.27 L, Hgb 10.3 L, Hct 31.9 L, MCV 97.6, MCH 31.5 H, MCHC 32.3, RDW 12.2, Plt Count 149, MPV 10.6 H, Neut % (Auto) 82.3 H, Lymph % (Auto) 9.6 L, [place] % (Auto) 7.0, Eos % (Auto) 0.6, Baso % (Auto) 0.1, Neut # (Auto) 8.8 H, Lymph # (Auto) 1.0, [place] # (Auto) 0.8, Eos # (Auto) 0.1, Baso # (Auto) 0.0, ESR 117 H, Sodium 136, Potassium 4.3, Chloride 106, Carbon Dioxide 25, Anion Gap 9.3, BUN 22 H, Creatinine 0.80, Estimated Creat Clear 104, Estimated GFR 73, Est GFR ( Amer) 89, Glucose 199 H, Lactate 1.3, Calcium 9.3, Total Bilirubin 0.5, AST 28, ALT 34, Alkaline Phosphatase 73, C-Reactive Protein 186.5 H, Total Protein 6.4, Albumin 4.0, Globulin 2.4, Albumin/Globulin Ratio 1.7, HCV Ab DEBBY w/Rflx PCR Qn Negative, HIV Ag/Ab Combo Qual Negative I & O for Labs for Last 24 Hours: Intake & Output 03/22/25 03/23/25 03/24/25 03/25/25 23:59 23:59 23:59 23:59 Weight 195 lb 3 oz Constitutional: Present no acute distress and cooperative Head: Present normocephalic Eye: Present as per HPI Neck: Present trachea midline Respiratory: Present normal respiratory effort Cardiac: Present posterior tibial pulses present Comments:: deferred Rectal (female): Present deferred (female): Present deferred Extremities: Present normal inspection, full ROM, normal capillary refill and edema Comment:: Right foot swelling, plantar sub 2nd DFU, erythema noted to foot and extending up her lower leg, purple marker used to outline the erythema. -R DFU wound culture was obtained while in the ER. Skin: Present erythema, warm and wounds Comment:: R foot (ball of foot) sub 2nd DFU. No debridement, cleaned, dressed with betadine soaked gauze, coban. Neuro: Present Sensory Function Intact and oriented x 3 Ankle: bilateral: normal inspection Feet/Toes: right: swelling, right: tenderness and right: wound (R foot cellulitis, sub 2nd DFU) Inspection: Present infection and ulceration Pulses: L dorsalis pedis pulse: normal, R dorsalis pedis pulse: normal, L posterior tibial pulse: normal and R posterior tibial pulse: normal CFT: normal: CFT Results Labs 03/25/25 10:50 03/25/25 10:50 Labs: Abnormal lab results 03/25/25 Range/Units 10:50 RBC 3.27 L (4.20-5.40) M/mm3 Hgb 10.3 L (12.2-16.2) g/dL Hct 31.9 L (37.0-47.0) % MCH 31.5 H (27.0-31.2) pg MPV 10.6 H (7.4-10.4) fl Neut % (Auto) 82.3 H (37.0-80.0) % Lymph % (Auto) 9.6 L (10-50) % Neut # (Auto) 8.8 H (1.8-7.8) K/mm3 ESR 117 H (0-30) mm/hr BUN 22 H (7-17) mg/dl Glucose 199 H (74-100) mg/dl C-Reactive Protein 186.5 H (0-4) mg/L H & H 03/25/25 Range/Units 10:50 Hgb 10.3 L (12.2-16.2) g/dL Hct 31.9 L (37.0-47.0) % All other labs normal. Assessment and Plan *Assessment and plan (1) Cellulitis: Status: Acute Qualifiers: Laterality: right Site of cellulitis: extremity Site of cellulitis of extremity: lower extremity Qualified Code(s): L03.115 - Cellulitis of right lower limb Category: Medical Code(s): L03.90 - Cellulitis, unspecified (2) Diabetic ulcer of foot associated with diabetes mellitus due to underlying condition, with fat layer exposed: Problem Comment: Right sub 2nd DFU Status: Acute Qualifiers: Diabetic foot ulcer location: unspecified part of foot Laterality: right Qualified Code(s): E08.621 - Diabetes mellitus due to underlying condition with foot ulcer; L97.512 - Non-pressure chronic ulcer of other part of right foot with fat layer exposed Category: Medical Code(s): E08.621 - Diabetes mellitus due to underlying condition with foot ulcer; L97.502 - Non-pressure chronic ulcer of other part of unspecified foot with fat layer exposed (3) Acquired hammertoe of right foot: Status: Acute Category: Medical Code(s): M20.41 - Other hammer toe(s) (acquired), right foot (4) Diabetic ulcer of toe of right foot: Status: Acute Qualifiers: Diabetes mellitus type: type 2 Non-pressure ulcer stage: with fat layer exposed Qualified Code(s): E11.621 - Type 2 diabetes mellitus with foot ulcer; L97.512 - Non-pressure chronic ulcer of other part of right foot with fat layer exposed Category: Medical Code(s): E11.621 - Type 2 diabetes mellitus with foot ulcer; L97.519 - Non-pressure chronic ulcer of other part of right foot with unspecified severity (5) Cellulitis of third toe, right: Status: Acute Category: Medical Code(s): L03.031 - Cellulitis of right toe (6) Infection of toe: Status: Acute Category: Medical Code(s): L08.9 - Local infection of the skin and subcutaneous tissue, unspecified (7) Incurvated nail: Status: Acute Category: Medical Code(s): L60.8 - Other nail disorders (8) Foot pain: Status: Acute Qualifiers: Laterality: bilateral Qualified Code(s): M79.671 - Pain in right foot; M79.672 - Pain in left foot Category: Medical Code(s): M79.673 - Pain in unspecified foot Plan 03/25/25: Reviewed Right foot CT Scan wo con, 03/25/25: FINDINGS: Bones/joints: No acute fracture or malalignment. Single screw fusion of the 2nd PIP joint. Similar chronic erosion of the 2nd metatarsal head. No specific evidence to suggest acute osteomyelitis. Soft tissues: Soft tissue ulceration involving the plantar aspect of the forefoot with surrounding subcutaneous edema. No obvious abscess, though evaluation is limited by noncontrast technique. IMPRESSION: 1. No specific evidence to suggest acute osteomyelitis. 2. Soft tissue ulceration involving the plantar aspect of the forefoot with surrounding subcutaneous edema. Labs 03/25/2025: WBC 10.7, neutrophils 8.8, ESR 117, glucose 199, CRP 186.5 Right sub 2nd (ball of foot) DFU, cellulitis -Patient was seen and evaluated while in the ER -Right foot cellulitis marked/outlined with purple marker -Wound culture was obtained from the Right plantar wound -Dressing was applied in the ER; betadine soaked 4x4, coban -Patient to receive IV antibiotics per hospitalist -Will review her CT scan to determine the extent of her I&D that will most likely be done tomorrow morning -Patient may have Diabetic diet today for Dinner and will be NPO after midnight. -All order per Dr. Weathers
--- NOTE | 2025-03-25 13:19 | PC.WOUNDNOTE ---
wound to (R) foot
--- NOTE | 2025-03-25 14:15 | US_ITS ---
FINAL REPORT CLINICAL HISTORY: R DFU, hx chronic ulcers, wound on bottom of right foot, skin graft x 1 yr ago on this wound, HTN, CAD, HLD, DM, Claudication FINDINGS: ANKLE-BRACHIAL PRESSURE INDICES Pressure indices are as follows: RIGHT LOWER EXTREMITY: Ankle-brachial pressure index: 1.3 Comments: Normal LEFT LOWER EXTREMITY: Ankle-brachial pressure index: 1.2 Comments: Normal IMPRESSION: No evidence of significant obstructive peripheral vascular disease of the lower extremities Reviewed, Interpreted and Dictated by Aaron Solomon MD Transcribed by Jessica Stephens Authenticated and [facility]
[2025-03-25 16:00] VITALS: BP 130/62; PULSE 77; RESP 16; TEMP 36.8; O2SAT 99
[2025-03-25] MEDS: humaLOG 100 UNITS/ML 10ML VIAL (SSI) SUBCUT (17:26)
[2025-03-25 17:38] LABS: POC Glucose,Bedside 182 (70-110)
--- NOTE | 2025-03-25 18:03 | PC.NURSE ---
Pt is currently sitting up in bed eating dinner. No pain reported. VSS. Picture obtained and on chart. DSG placed. Consent for procedure obtained and on chart. Call light within reach.
[2025-03-25 20:00] VITALS: BP 127/63; PULSE 77; RESP 16; TEMP 36.8; O2SAT 98
[2025-03-25 21:10] LABS: POC Glucose,Bedside 118 (70-110)
[2025-03-25] MEDS: GABAPENTIN 400MG CAPSULE 400 MG PO (21:16)
--- NOTE | 2025-03-25 21:23 | PC.NURSE ---
Confirmed with CHET Florencio, vanc and flagyl are compatible.
[2025-03-26] VITALS (20 sets, daily range): BP systolic 104–137; BP diastolic 60–87; PULSE 76–99; RESP 16–99; TEMP 36.3–38; O2SAT 92–98; BMI 28.9
[2025-03-26] MEDS: METRONIDAZ/SOD CHL 500 MG/100 ML PIGGYBACK 100 MG IV ×3 (04:34→20:51)
[2025-03-26] MEDS: CEFEPIME HCL 2 GM in 0.9 % SODIUM CHLORIDE 100 ML IV ×3 (05:40→23:20)
--- NOTE | 2025-03-26 06:22 | ECG_ITS ---
APPROVED REPORT Exam: Resting ECG HR:80 bpm ECG Measurements Heart Rate 80 AXES OH 166 P -7 QRSd 77 QRS 31 QT 351 T 20 QTc 387 Conclusion SINUS RHYTHM NORMAL ECG UNCONFIRMED REPORT Electronically signed by : Kaz Medina MD 03/26/2025 07:32:06
--- NOTE | 2025-03-26 06:38 | P.PN_ITS ---
Subjective *Date: 03/26/25 *Time: 07:34 Interval history: Patient is a 59-year-old diabetic female well-known to the podiatry service. She has a history of right subsecond?third metatarsal DFU which was at one point completely healed. Presents to ER 03/25/2025 with complaints of increased redness and signs of infection. New DFU noted to plantar right foot. New images were discussed with the patient. We discussed conservative versus surgical treatment options. We discussed conservative care including continued oral vs IV antibiotics and local wound care versus surgical incision and drainage, wound debridement with open bone biopsy and partial second metatarsal amputation/resection. Patient understands that they could have wound healing complications including delayed healing and infection. We discussed that if the wound does not heal, it is possible that they may need further debridement. Patient understands if infection spreads into the bone, it may warrant proximal amputation and could result in further loss of digits, loss of partial foot or loss of leg. We discussed the risks and benefits in great detail. Other surgical risks include: prolonged pain and swelling, further infection requiring oral or IV antibiotics, delay in healing of soft tissue or bone, nerve or blood vessel damage, CRPS/RSD, DVT/PE, anesthesia complications, and even . All questions answered. Patient verbalized understanding. Consent obtained. 03/26/25- Patient resting in bed, no acute c/o pain mild discomfort. Surgery plans discussed and surgical consent obtained for right foot incision and drainage, irrigation and debridement wound/nonviable soft tissue and bone, bone biopsy, possible second metatarsal partial resection. Ortho Exam (Inpt) Vital signs and Labs for Last 24 Hours: Temp Pulse Resp BP Pulse Ox O2 Del Method 97.6 F 78 16 112/64 98 Room Air 03/26/25 04:00 03/26/25 04:00 03/26/25 04:00 03/26/25 04:00 03/26/25 04:00 03/26/25 05:00 Laboratory Results - last 24 hr 03/25/25 10:50: WBC 10.7, RBC 3.27 L, Hgb 10.3 L, Hct 31.9 L, MCV 97.6, MCH 31.5 H, MCHC 32.3, RDW 12.2, Plt Count 149, MPV 10.6 H, Neut % (Auto) 82.3 H, Lymph % (Auto) 9.6 L, [place] % (Auto) 7.0, Eos % (Auto) 0.6, Baso % (Auto) 0.1, Neut # (Auto) 8.8 H, Lymph # (Auto) 1.0, [place] # (Auto) 0.8, Eos # (Auto) 0.1, Baso # (Auto) 0.0, ESR 117 H, Sodium 136, Potassium 4.3, Chloride 106, Carbon Dioxide 25, Anion Gap 9.3, BUN 22 H, Creatinine 0.80, Estimated Creat Clear 104, Estimated GFR 73, Est GFR ( Amer) 89, Glucose 199 H, Lactate 1.3, Calcium 9.3, Total Bilirubin 0.5, AST 28, ALT 34, Alkaline Phosphatase 73, C-Reactive Protein 186.5 H, Total Protein 6.4, Albumin 4.0, Globulin 2.4, Albumin/Globulin Ratio 1.7, HCV Ab DEBBY w/Rflx PCR Qn Negative, HIV Ag/Ab Combo Qual Negative 03/25/25 17:20: POC Glucose 182 H 03/25/25 21:01: POC Glucose 118 H I & O for Labs for Last 24 Hours: Intake & Output 03/23/25 03/24/25 03/25/25 03/26/25 23:59 23:59 23:59 23:59 Intake Total 1150 / 1150 750 / 750 Output Total 0 / 0 0 / 0 Balance 1150 / 1150 750 / 750 Weight 195 lb 3 oz 195 lb 2.874 oz Microbiology Reports for the Last 24 Hours: Microbiology 03/25/25 12:27 Foot,Right - Abscess Gram Stain - Final Constitutional: Present no acute distress and cooperative Head: Present normocephalic Eyes: Present as per HPI Neck: Present trachea midline Respiratory: Present normal respiratory effort Cardiac: Present pedal pulses present Rectal (female): Present deferred (female): Present deferred Extremities: Present normal capillary refill and edema (R foot DFU ) Ankle: bilateral: normal inspection Feet/Toes: right: swelling, right: tenderness and right: wound (Right foot sub 2nd diabetic ulcer/abscess) and bilateral: hammer toe Feet w/LR Ind Bottom: 2 1. Right subsecond DFU, abscess. Wound culture obtained and now pending. Plan for 03/26/25-sx. right foot incision and drainage, and irrigation and debridement with wound/nonviable soft tissue and bone, bone biopsy, possible second metatarsal partial resection. Assessment and Plan *Assessment and plan (1) Cellulitis: Status: Acute Qualifiers: Laterality: right Site of cellulitis: extremity Site of cellulitis of extremity: lower extremity Qualified Code(s): L03.115 - Cellulitis of right lower limb Category: Medical Code(s): L03.90 - Cellulitis, unspecified (2) Diabetic ulcer of foot associated with diabetes mellitus due to underlying condition, with fat layer exposed: Problem Comment: Right sub 2nd DFU Status: Acute Qualifiers: Diabetic foot ulcer location: unspecified part of foot Laterality: r ight Qualified Code(s): E08.621 - Diabetes mellitus due to underlying condition with foot ulcer; L97.512 - Non-pressure chronic ulcer of other part of right foot with fat layer exposed Category: Medical Code(s): E08.621 - Diabetes mellitus due to underlying condition with foot ulcer; L97.502 - Non-pressure chronic ulcer of other part of unspecified foot with fat layer exposed (3) Acquired hammertoe of right foot: Status: Acute Category: Medical Code(s): M20.41 - Other hammer toe(s) (acquired), right foot (4) Diabetic ulcer of toe of right foot: Status: Acute Qualifiers: Diabetes mellitus type: type 2 Non-pressure ulcer stage: with fat layer exposed Qualified Code(s): E11.621 - Type 2 diabetes mellitus with foot ulcer; L97.512 - Non-pressure chronic ulcer of other part of right foot with fat layer exposed Category: Medical Code(s): E11.621 - Type 2 diabetes mellitus with foot ulcer; L97.519 - Non-pressure chronic ulcer of other part of right foot with unspecified severity (5) Cellulitis of third toe, right: Status: Acute Category: Medical Code(s): L03.031 - Cellulitis of right toe (6) Infection of toe: Status: Acute Category: Medical Code(s): L08.9 - Local infection of the skin and subcutaneous tissue, unspecified (7) Incurvated nail: Status: Acute Category: Medical Code(s): L60.8 - Other nail disorders (8) Foot pain: Status: Acute Qualifiers: Laterality: bilateral Qualified Code(s): M79.671 - Pain in right foot; M79.672 - Pain in left foot Category: Medical Code(s): M79.673 - Pain in unspecified foot Plan 03/26/25: Right sub 2nd (ball of foot) DFU, cellulitis: Reviewed Right foot CT Scan wo con, 03/25/25: FINDINGS: Bones/joints: No acute fracture or malalignment. Single screw fusion of the 2nd PIP joint. Similar chronic erosion of the 2nd metatarsal head. No specific evidence to suggest acute osteomyelitis. Soft tissues: Soft tissue ulceration involving the plantar aspect of the forefoot with surrounding subcutaneous edema. No obvious abscess, though evaluation is limited by noncontrast technique. IMPRESSION: 1. No specific evidence to suggest acute osteomyelitis. 2. Soft tissue ulceration involving the plantar aspect of the forefoot with surrounding subcutaneous edema. -CT scan right foot. Axial series 3, image 82-88, there is a definitive area of phlegmon or possible abscess noted to the subsecond and third metatarsal region. Plantar foot opening correlates with DFU site. Retained second PIPJ hammertoe. -03/25/25: ABIs: ABIs right PT 1.28, DP 1.10, TBI 0.83. ABIs left PT 1.24, DP 0.96, TBI 0.83. Adequate flow to heal surgery. Labs 03/25/2025: WBC 10.7, neutrophils 8.8, ESR 117, glucose 199, CRP 186.5 03/26/2025: WBC 7.6, CRP 149.5 Plan: NPO after midnight, and until after surgery IV abx per Hospitalist team: broad spectrum coverage NWB to right foot Right foot cellulitis marked/outlined with purple marker Plan for surgery later this morning for right foot incision and drainage, irrigation and debridement wound/nonviable soft tissue and bone, bone biopsy, possible second metatarsal partial resection Surgical consent obtained and will be placed on chart Wound culture was obtained from the Right plantar wound- pending Dressing was applied; betadine soaked 4x4, kerlix, tripp wrap All order and recommendations per Dr. Weathers
--- NOTE | 2025-03-26 06:39 | PC.NURSE ---
Alert and oriented. No complaints from patient. Wound to right foot, surg this AM. NPO since midnight. Abx given per JAN. Call light in reach.
[2025-03-26 06:45] LABS: Basophils % 0.1 % (0.1-2.0); Eosinophils # 0.1 Kmm3 (0.0-0.4); Eosinophils % 1.7 % (0.1-12.0); Hematocrit 30.2 % (37.0-47.0); Hemoglobin 9.8 g/dL (12.2-16.2); Immature Granulocytes # 0.03 10^3uL; Immature Granulocytes % 0.4 %; Lymphocytes # 0.9 K/mm3 (0.7-4.5); Lymphocytes % 11.3 % (10-50); Mean Corpuscular HGB Conc 32.5 g/dL (31.8-35.4); Mean Corpuscular Volume 95.6 fl (81-99); Monocytes # 0.5 K/mm3 (0.1-1.0); Monocytes % 6.2 % (1.7-9.3); Neutrophils # 6.1 K/mm3 (1.8-7.8); Neutrophils % 80.3 % (37.0-80.0); Nucleated Red Blood Cells # 0 10^3/uL; Nucleated Red Blood Cells % 0 %; Platelet Count 158 K/mm3 (142-424); Red Blood Count 3.16 M/mm3 (4.20-5.40); White Blood Count 7.6 K/mm3 (4.8-10.8)
[2025-03-26 06:57] LABS: Alanine Aminotransferase 28 U/L (12-78); Albumin Level 3.8 g/dl (3.5-5.0); Albumin/Globulin Ratio 1.6 (1.1-1.8); Alkaline Phosphatase 75 U/L (38-126); Anion Gap 8.4 mEq/L (5-15); Aspartate Amino Transferase 26 U/L (14-36); Bilirubin,Total 0.4 mg/dl (0.2-1.3); Blood Urea Nitrogen 19 mg/dl (7-17); Calcium 8.9 mg/dl (8.4-10.2); Carbon Dioxide 22 mmol/L (22.0-30.0); Chloride 112 mmol/L (98-107); Creatinine Clearance Estimated 105 mL/min (50-200); Estimated Glomerular Filt Rate 73 ml/min (>60); GFR (African American) 89 ML/MIN (>60); Globulin 2.4 g/dL (1.3-3.2); Glucose 124 mg/dl (74-100); Magnesium 2.5 mg/dl (1.6-2.3); Potassium 4.4 mmoL/L (3.5-5.1); Sodium 138 mmol/L (136-145); Total Protein,Serum 6.2 g/dl (6.3-8.2)
[2025-03-26] MEDS: VANCOMYCIN/WATER FOR INJ (PEG) 1.75 GM/350 ML PIGGYBACK IV (07:00)
[2025-03-26 07:02] LABS: C-Reactive Protein 149.5 mg/L (0-4)
[2025-03-26 07:51] LABS: Erythrocyte Sedimentation Rate 128 mm/hr (0-30)
--- NOTE | 2025-03-26 08:54 | EXP.ANES.CKL ---
[facility] Disclaimer: The information contained in this section may have been updated after the patient was seen, as this information can be updated by other users. Medical History GERD (gastroesophageal reflux disease) HLD (hyperlipidemia) Hammertoe of right foot Trigger finger Sleep apnea Allergies Skin cancer Encounter for pre-operative cardiovascular clearance Palpitations Ex-smoker Coronary artery disease Hyperlipidemia CONNOR (obstructive sleep apnea) FH: CAD (coronary artery disease) Diabetes Surgical History Hx of cardiac cath Hx of section H/O arthroscopic knee surgery Hx of shoulder surgery H/O adenoidectomy History of tonsillectomy History of appendectomy History of cholecystectomy History of knee replacement S/P coronary artery stent placement Family History Father Heart attack Brother Heart attack Social History Smoking Status: Never smoker alcohol intake: never substance use type: denies use current occupational status: employed Travel in the last 8 weeks?: None household members: none housing: house current occupation: [employer] caffeine: No Contact w/someone who lives/traveled outside [place] past 30 days?: No Exposure to someone with infectious disease in past 14 days?: No Do you have a fever (greater than 100.4 F or 38 C)?: No Have you tested positive for COVID-19?: No Exposed to someone with COVID-19 in past 14 days?: No Do you have a sore throat?: No Do you have a cough?: No Do you have any weakness?: No Are you experiencing any nausea/vomitting?: No Do you have any diarrhea?: No Are you experiencing any unusual bleeding?: No Do you have any muscle aches/pain?: No Do you have any abdominal pain?: No Are you experiencing loss of taste or smell?: No [facility] Anesthesia Checklist Patient Identification Patient Identification: Arm Band Structural Data Admitted From: Home Planned Operative Procedure/s: Right Foot Debridement Consent for Planned Operative Procedure(s) Verified: Yes Verified Documents: Surgical Consent and History and Physical NPO Status Verified Time NPO: 00:00 Additional verifications Anesthesia Reactions: No Hx Blood Transfusions: No Blood Transfusion Reaction: No Airway Assessment Mallampati Score:: Class II C-Spine Mobility Assessed: Yes TMJ Mobility Assessed: Yes Dentition: Good Dentition Neurological Assessment Level of Consciousness: Awake, Alert and Appropriate Anesthesia Plan Anesthesia Risk discussed: Yes Anesthesia Plan: Verified ASA Class: III Anesthesia Type: General
[2025-03-26 09:27] LABS: Hemoglobin A1C 6.9 % (4.0-6.0)
[2025-03-26] MEDS: BUPIVACAINE 0.5% 30ML VIAL 150 MG (09:41)
[2025-03-26] MEDS: GENTAMICIN 80 MG/2 ML VIAL (09:41)
--- NOTE | 2025-03-26 10:21 | SUR.OPER ---
[id number] given by Dr Weathers to call the patients daughter and provide an update stating patient did great, everything the patient was consented for was performed, she was closing and would call her to further discuss later in the day. Verbal orders repeated and correct. Patients daughter called at 1021 in the patients room. Message was relayed to the daughter. Daughter did not have further questions at that time.
--- NOTE | 2025-03-26 10:59 | EXP.ANES.I ---
[facility] Anesthesia Record Part I Anesthesia Record I Intake, IV Amount: 1,100 Hydration: Adequate Estimated blood loss (mL): 5 Urine output (mL): 0 Blood Products used (#): none Blood Pressure: 114/63 SaO2: 93 Pulse Rate: 81 Airway Patency: Patent Respiratory Rate: 16 Temperature: 97.3 F Patient is:: Drowsy and Stable Stable to PACU at:: 10:55
--- NOTE | 2025-03-26 11:04 | XR_ITS ---
FINAL REPORT CLINICAL HISTORY: s/p 2nd toe, met resection COMPARISON: 03/10/2025 FINDINGS: RIGHT FOOT 3 views of the right foot were obtained. There has been interval amputation of the second digit with antibiotic seed implants. There is no evidence of bony erosion. There is no acute fracture or dislocation. Visualized joint spaces are normally aligned. There is prominent soft tissue edema. IMPRESSION: Interval amputation of the second digit without evidence of bony erosion. Reviewed, Interpreted and Dictated by Aaron Solomon MD Transcribed by Christy Taylor Authenticated and [facility]
[2025-03-26 11:05] LABS: POC Glucose,Bedside 180 (70-110)
--- NOTE | 2025-03-26 11:05 | EXP.OP.NOTE ---
Date of procedure: 03/26/25 Pre-op Diagnosis:: Right foot abscess Right foot cellulitis Diabetic foot infection Suspected osteomyelitis Right retained orthopedic implant (history of hammertoe repair) Post-op Diagnosis:: Same Procedure performed:: Right second metatarsal partial resection Right foot incision and drainage Right foot wide excisional full-thickness debridement Right second toe amputation Application of intramedullary drug delivery system (Cerament G) Surgeon:: Gay Weathers DPM TESTING DIRECTOR:: Andres Diaz Anesthesia: GETA and local (30cc 0.5% Marcaine plain) Estimated blood loss (mL): 20 Clinical Note:: See consult note. Patient is a 59-year-old diabetic female well-known to the podiatry service. She has a history of right subsecond?third metatarsal DFU which was at one point completely healed. Presents to ER 03/25/2025 with complaints of increased redness and signs of infection. New DFU noted to plantar right foot. New images were discussed with the patient. We discussed conservative versus surgical treatment options. We discussed conservative care including continued oral vs IV antibiotics and local wound care versus surgical incision and drainage, wound debridement with open bone biopsy and partial second metatarsal amputation/resection, possible second toe amp. Patient understands that they could have wound healing complications including delayed healing and infection. We discussed that if the wound does not heal, it is possible that they may need further debridement. Patient understands if infection spreads into the bone, it may warrant proximal amputation and could result in further loss of digits, loss of partial foot or loss of leg. We discussed the possibility of needing a second toe amputation depending on quality of the skin and wound healing. Patient was insistent did not have to have a second surgery after the bone biopsies and would rather have the definitive amputation if there was questionable bone infection. We discussed the risks and benefits in great detail. Other surgical risks include: prolonged pain and swelling, further infection requiring oral or IV antibiotics, delay in healing of soft tissue or bone, nerve or blood vessel damage, CRPS/RSD, DVT/PE, anesthesia complications, and even . All questions answered. Patient verbalized understanding. Consent obtained. Operative findings:: Right foot had significant edema and erythema. It was marked out yesterday in the ER and has rescinded since then. Diabetic foot ulcer open wound ~2x1x2.5cm noted to the subsecond metatarsal plantarly. The incision did probe full-thickness over 2.5 cm to second metatarsal head. Separate incision made on the dorsal aspect of the second metatarsal. Saw used to transect the second metatarsal. Dorsally the med appeared intact. Plantarly there were cortical erosions noted consistent with area of suspected infection. Second metatarsal margins were taken of what looked to be healthy bone. Plantar incision made full-thickness through DFU excising it completely to the level of deep fascia. Purulent drainage expressed, wound culture taken. Infection appeared to be localized to the second MTPJ, plantar abscess around DFU site. Some bony changes noted at the base of the proximal phalanx. Decision made to amputate the second toe as well. Soft bone noted to the proximal phalanx. Significant scar tissue around the area but that could be related to history of hammertoe surgery several years ago by an outside facility. There was no purulence or sinus tracking proximal to the second met shaft or third metatarsal. The hallux and third toe appear to be intact with no obvious signs of infection noted. Based on intraop findings, would benefit from IV abx today and colleen, will possible d/c colleen or Fri with oral abx. 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 High risk for re-ulcerative, recurrent infection, further amputation if patient is noncompliant with her nonweightbearing status, does not take her antibiotics, and do regular dressing changes and office visits. Operative note:: On this date and time patient was deemed an appropriate surgical candidate. With informed consent signed, the patient was taken to the operating theater. The patient was positioned supine on OR table. General anesthesia was induced. Tourniquet applied but not inflated. IV vancomycin given on floor prior to procedure. Scheduled IV broad-spectrum antibiotics. The right lower extremity was prepped and drapped in normal sterile fashion. Right second metatarsal resection, open bone biopsy: Attention was directed to the dorsal aspect of the second metatarsal where a linear incision was made full-thickness down to the level of the bone with a 15 blade. No ang purulence expressed. Sagittal saw used to transect the metatarsal head. Metatarsal head was then transected and a piece for culture and MP sent for pathology. Infection appeared to be localized distal to this area. Saw was then used to transect a piece of the second metatarsal for proximal margin. Attention was then directed to known infected site plantarly. Right foot I&D (incision and drainage): Attention was directed to the plantar aspect of the foot where DFU was noted. An incision was made on either side of the DFU with a 15 blade full-thickness through skin, subcutaneous into/including deep fascia tissue approximately 2.5 cm deep. Creamy yellow purulence with malodor noted, wound culture taken. Right foot irrigation and debridement wide excisional: Attention was directed to the plantar foot where the diabetic foot ulcer noted. Ulcer was excised in an elliptical style full-thickness into deep fascia with a 15 blade. The ulcer tissue was sent to culture. All nonviable soft tissue was sharply excisionally debrided. Wound was flushed with gentamicin irrigation and a pulse lavage. Right 2nd toe amp: Due to the depth of the plantar DFU along with cortical changes and irregularity noted to the base of the proximal phalanx, decision made to amputate the second toe. A fish mouth incision was mapped out around the toe. Significant fibrosis and scarring noted from prior surgery. The toe was removed in total. The PIPJ was fused with a hammertoe implant in place. A piece of the middle and proximal phalanx including the hammertoe implant was sent for bone/hardware culture. The remaining second toe was sent for pathology specimen. The 2nd met was reevaluated and intact with no remaining cortical erosions, discoloration or obvious signs of osteomyelitis. Next remaining gentamicin irrigation was used to flush the wound with pulse lavage. The wound was reexplored and no further signs of infection noted. No sinus tracking. Bleeding controlled. Vessels ligated with electrocautery as needed. Application of intramedullary drug delivery system (Cerament G): Next the cerament G was prepared in accordance with manufacture guidelines and standard technique. Some of it was inserted directly into the second metatarsal shaft. The rest of it was made into antibiotic beads which were inserted around the incision site once they were set. Vicryl used to close skin over the second metatarsal. Prolene was used to close skin in an interrupted simple and vertical mattress suture fashion. There was good soft tissue closure. No exposed bone noted. 30 cc 0.5% marcaine plain was injected at the end of the case in post op ankle block. Skin was cleansed. Betadine soaked gauze, dry sterile dressing was then applied to the right foot. The patient tolerated the procedure and anesthesia well, without complications. The patient was awoken from anesthesia and transferred to recovery with vital signs stable and neurovascular status intact. Materials: Cerament G (drug delivery system with gentamicin), Prolene Plan: Transfer back to the floor. Patient is to maintain dressing clean dry and intact. Continue IV antibiotics per Hospitalist team. Strict non weight bearing to the right foot in short fracture boot with walker, rolling knee scooter. Obtain post op films, right foot, 3 views. Plan for dressing change tomorrow by Podiatry. Condition: stable Disposition: floor Specimens:: Micro: Right foot WCx Right 2nd toe bone/hardware culture Right 2nd metatarsal bone culture Path: Right 2nd toe bone Right 2nd metatarsal bone Right 2nd metatarsal bone proximal margin Complications:: None
[2025-03-26] MEDS: GABAPENTIN 400MG CAPSULE 400 MG PO ×2 (11:44→20:32)
[2025-03-26] MEDS: IRBESARTAN 75MG TABLET 37.5 MG PO (11:44)
[2025-03-26] MEDS: BISOPROLOL 5MG TABLET 5 MG PO (11:45)
[2025-03-26] MEDS: humaLOG 100 UNITS/ML 10ML VIAL (SSI) SUBCUT ×3 (11:45→20:51)
[2025-03-26] MEDS: METFORMIN 500MG TABLET 500 MG PO (11:45)
[2025-03-26] MEDS: EMPAGLIFLOZIN 10MG TABLET 10 MG PO (11:45)
--- NOTE | 2025-03-26 11:55 | EXP.ANES.II ---
[facility] Anesthesia Record Part II Anesthesia Record Part II Discharge Time: 11:25 Destination: Medical Surgical Department PACU nurse assessment reviewed?: Yes Patient Condition:: Good Anesthesia Complications:: None Swallowing reflex intact?: Yes Airway Patency: Patent Cyanosis?: No Blood Pressure: 121/72 SaO2: 93 Respiratory Rate: 16 Pulse Rate: 99 Temperature: 97.3 F Mental Status: Alert & Oriented Pain level:: 0 Nausea and/or vomitting:: None Intake, IV Amount: 0 Hydration: Adequate
--- NOTE | 2025-03-26 12:02 | SUR.PHASEI ---
Report called to IVAN Plata on med/surg. Patient's viatla signs stable and no C/o pain. Transported to floor via bed.
--- OUTSIDE RECORDS SUMMARY | 2025-03-26 14:21 | XMS_ITS | Data Portability ---
Author Organization [facility] ADMIN Address [address] [place] [id number] Care Team Providers Care Facility Worker Name Role Phone AMALIA MCCORD Referring Provider AMALIA MCCORD Primary Care Provider Assessment Encounter Date Assessment Date Assessment LastModified by Organization Details LastModified Time 11/28/2022 11/28/2022 Amalia Karimi APRN, Dear Shona, just want to let you know that I saw Zehra Espino in the off state your request. She is a 57-year-old employee out at [employer] who has had a several month history [...] in punctuate rojas and or spelling, etc. [email or web address] Not available 11/28/2022 11:49:55 01/02/2023 01/02/2023 Ms Espino returns after robotic cholecystectomy. She is doing very well without serous complaints or issues. The wounds are intact without sign of infection. She can return to work in 1 week if she does not lift more than 35 lb. Follow-up in a month as needed [email or web address] Not available 01/02/2023 09:09:29 10/01/2024 10/01/2024 Ms. [...] (A+B+C), acute, serum 2023 024 [email or web address] 4 [facility] (Registration ), [address] [place], [address], 11/14/2024 11:24:16 igg, quantitat liliam, serum 2023 024 [facility] (Registration ), [address] [place], [address], 10/03/2024 15:14:32 mitochond rial Ab, serum 2023 024 [facility] (Registration ), [address] , [place], [address], 10/03/2024 15:14:30 actin smooth muscle Ab, serum 2023 024 [facility] (Registration ), [address] , [place], [address], 10/03/2024 15:14:34 ARNAV (antinucl ear antibodie s) screen, serum 2023 024 [facility] (Registration ), [address], [place], [address], 10/03/2024 13:13:40 alpha-1-a ntitrypsi n (aat), QN, serum [email or web address] [place] [address] (Registration ), [address], [place], [address], 11/14/2024 11:24:16 CBC w/ auto diff 2023 024 [facility] (Registration ), [address], [place], [address], 10/02/2024 07:51:03 PT/INR 2023 024 [email or web address] [address] [place] [address] (Registration ), [address], [place], [address], 11/14/2024 11:24:16 nonalcoho lic steatohep atitis + fibrosis panel, serum or plasma 2023 [email or web address] [place] [address] (Registration ), [address] [place], [address], 11/14/2024 11:24:16 alpha-1-a ntitrypsi n (aat) phenotype , serum [address]23 [email or web address] [place] [address] (Registration ), [address] [place], [address], 11/14/2024 11:24:17 CMP, serum or plasma 2023 024 [facility] (Registration ), [address] [facility], [place], [address], 10/02/2024 08:04:39 hemochrom atosis mutation (hfe), blood/tis yudi 2023 024 [email or web address] 4 [facility] (Registration ), [address] [facility], [place], [address], 11/14/2024 11:24:17 Referral general surgeon referral 2021 022 JACKSON Funk MD, [address], [place], [address], 03/17/2024 05:01:33 Procedures None recorded. Surgeries None recorded. Imaging US, liver 2023 024 JACKSON Gtwn [facility] Number, [address] [place], [address], 10/14/2024 11:59:54 Medication Orders None recorded. Patient TargetsNo targets recorded. Patient Instructions Encounter Date Encounter Id Patient Instructions Last Modified By Organization Details Last Modified Time 10/01/2024 [id number] 6 month f/u [email or web address] Not available 10:52:52 Reason for Referral General Surgeon Referral for Cholelithiasis without obstruction Referring Physician: Johnna Karimi, Family Medicine, Encounter Date: 10/26/2022 Results Created Date Observation Date Name Description Value Unit Range Abnormal Flag Note LastModifiedBy Organization Detail LastModifiedTime 12/13/1912/13/2022 CBC AUTO NO DIFF (HEMO GRAM) WBC 5.7 K/uL 4.0-10 .5 Not Available [facility] (Ccd) [address] [facility], [place], [address], 12/13/2022 16:35:15 12/13/1912/13/2022 CBC AUTO NO DIFF (HEMO GRAM) RBC 4.2 M/mm3 4.2-6. 4 Not Available [facility] ([facility]) [address] [facility], [place], [address], 12/13/2022 16:35:15 12/13/19 23 12/13/2022 CBC AUTO NO DIFF (HEMO GRAM) HGB 13.0 gm/dL 12.5-1 6.0 Not Available [facility] ([facility]) [address] , [place], [address], 12/13/2022 16:35:15 12/13/19 23 12/13/2022 CBC AUTO NO DIFF (HEMO GRAM) HCT 38.9 % 37.0-4 7.0 Not Available [facility] ([facility]) [address] , [place], [address], 12/13/2022 16:35:15 12/13/19 23 12/13/2022 CBC AUTO NO DIFF (HEMO GRAM) MCV 93.5 fL 78-100 Not Available [facility] ([facility]) [address] , [place], [address], 12/13/2022 16:35:15 12/13/19 23 12/13/2022 CBC AUTO NO DIFF (HEMO GRAM) MCH 31.3 pg 27-31 high Not Available [facility] ([facility]) [address] , [place], [address], 12/13/2022 16:35:15 12/13/19 23 12/13/2022 CBC AUTO NO DIFF (HEMO GRAM) MCHC 33.4 g/dL 32-36 Not Available [facility] ([facility]) [address] , [place], [address], 12/13/2022 16:35:15 12/13/19 23 12/13/2022 CBC AUTO NO DIFF (HEMO GRAM) RDW 12.9 % 11.5-1 4.0 Not Available [facility] ([facility]) [address] , [place], [address], 12/13/2022 16:35:15 12/13/19 23 12/13/2022 CBC AUTO NO DIFF (HEMO GRAM) platelet count 193 K/uL 150-45 0 Not Available [facility] ([facility]) [address] , [place], [address], 12/13/2022 16:35:15 12/13/19 23 12/13/2022 CBC AUTO NO DIFF (HEMO GRAM) manual differential NO Not Available [facility] ([facility]) [address] , [place], [address], 12/13/2022 16:35:15 12/13/19 23 12/13/2022 COMP METAB OLIC PANEL sodium 139 mmol/ L 136-14 5 Not Available [facility] ([facility]) [address] , [place], [address], 12/13/2022 17:16:34 12/13/19 23 12/13/2022 COMP METAB OLIC PANEL potassium 3.5 mmol/ L 3.6-5. 0 low Not Available [facility] ([facility]) [address] , [place], [address], 12/13/2022 17:16:34 12/13/19 23 12/13/2022 COMP METAB OLIC PANEL chloride 102 mmol/ L 98-107 Not Available [facility] ([facility]) [address] , [place], [address], 12/13/2022 17:16:34 12/13/19 23 12/13/2022 COMP METAB OLIC PANEL carbon dioxide 31.2 mmol/ L 21.0-3 2.0 Not Available [facility] ([facility]) [address] [place], [address], 12/13/2022 17:16:34 12/13/19 23 12/13/2022 COMP METAB OLIC PANEL anion gap 9.3 Not Available [facility] [address] [place], [address], 12/13/2022 17:16:34 12/13/19 23 12/13/2022 COMP METAB OLIC PANEL glucose 126 mg/dL 70-120 high Not Available [facility] ([facility]) [address], [place], [address], 12/13/2022 17:16:34 12/13/19 23 12/13/2022 COMP METAB OLIC PANEL BUN 25 mg/dL 7-18 high Not Available [facility] ([facility]) [address], [place], [address], 12/13/2022 17:16:34 12/13/19 23 12/13/2022 COMP METAB OLIC PANEL creatinine 1.0 mg/dL 0.6-1. 3 Not Available [facility] ([facility]) [address] , [place], [address], 12/13/2022 17:16:34 12/13/19 23 12/13/2022 COMP METAB OLIC PANEL glomerular filtration rate >60 mlper min 60- Not Available [facility] ([facility]) [address] , [place], [address], 12/13/2022 17:16:34 12/13/19 23 12/13/2022 COMP METAB OLIC PANEL total protein 6.9 g/dL 6.4-8. 2 Not Available [facility] ([facility]) [address] , [place], [address], 12/13/2022 17:16:34 12/13/19 23 12/13/2022 COMP METAB OLIC PANEL albumin 4.1 g/dL 3.4-5. 0 Not Available [facility] ([facility]) [address] , [place], [address], 12/13/2022 17:16:34 12/13/19 23 12/13/2022 COMP METAB OLIC PANEL globulin 2.8 Not Available [facility] ([facility]) [address], [place], [address], 12/13/2022 17:16:34 12/13/19 23 12/13/2022 COMP METAB OLIC PANEL alb/glob ratio 1.5 0.7-2 Not Available [facility] ([facility]) [address], [place], [address], 12/13/2022 17:16:34 12/13/19 23 12/13/2022 COMP METAB OLIC PANEL calcium 9.6 mg/dL 8.5-10 .5 Not Available [facility] ([facility]) [address], [place], [address], 12/13/2022 17:16:34 12/13/19 23 12/13/2022 COMP METAB OLIC PANEL bilirubin total 0.30 mg/dL 0.10-1 .00 Not Available [facility] ([facility]) [address], [place], [address], 12/13/2022 17:16:34 12/13/19 23 12/13/2022 COMP METAB OLIC PANEL AST (SGOT) 31 U/L 0-37 Not Available [facility] ([facility]) [address] , [place], [address], 12/13/2022 17:16:34 12/13/19 23 12/13/2022 COMP METAB OLIC PANEL ALT (SGPT) 47 U/L 0-65 Not Available [facility] ([facility]) [address] , [place], [address], 12/13/2022 17:16:34 12/13/19 23 12/13/2022 COMP METAB OLIC PANEL alk phosphatase 68 U/L 46-116 Not Available [facility] ([facility]) [address], [place], [address], 12/13/2022 17:16:34 10/02/20 24 10/02/2024 CBC AUTO W DIFF WBC 5.0 K/uL 4.0-10 .5 Not Available [facility] ([facility]) [address] , [place], [address], 10/02/2024 07:51:03 10/02/20 24 10/02/2024 CBC AUTO W DIFF RBC 4.1 M/mm3 4.2-6. 4 low Not Available [facility] ([facility]) [address] , [place], [address], 10/02/2024 07:51:03 10/02/20 24 10/02/2024 CBC AUTO W DIFF HGB 12.7 gm/dL 12.5-1 6.0 Not Available [facility] ([facility]) [address] , [place], [address], 10/02/2024 07:51:03 10/02/20 24 10/02/2024 CBC AUTO W DIFF HCT 39.5 % 37.0-4 7.0 Not Available [facility] ([facility]) [address] , [place], [address], 10/02/2024 07:51:03 10/02/20 24 10/02/2024 CBC AUTO W DIFF MCV 96.3 fL 78-100 Not Available [facility] ([facility]) [address] , [place], [address], 10/02/2024 07:51:03 10/02/20 24 10/02/2024 CBC AUTO W DIFF MCH 31.0 pg 27-31 Not Available [facility] ([facility]) [address] [place], [address], 10/02/2024 07:51:03 10/02/20 24 10/02/2024 CBC AUTO W DIFF MCHC 32.2 g/dL 32-36 Not Available [facility] ([facility]) [address], [place], [address], 10/02/2024 07:51:03 10/02/20 24 10/02/2024 CBC AUTO W DIFF RDW 13.0 % 11.5-1 4.0 Not Available [facility] ([facility]) [address], [place], [address], 10/02/2024 07:51:03 10/02/20 24 10/02/2024 CBC AUTO W DIFF platelet count 208 K/uL 150-45 0 Not Available [facility] ([facility]) [address] [facility], [place], [address], 10/02/2024 07:51:03 10/02/20 24 10/02/2024 CBC AUTO W DIFF MPV 9.8 fL 6-9.5 high Not Available [facility] ([facility]) [address] [place], [address], 10/02/2024 07:51:03 10/02/20 24 10/02/2024 CBC AUTO W DIFF neutrophil% 59.1 % 43-65 Not Available [facility] ([facility]) [address], [place], [address], 10/02/2024 07:51:03 10/02/20 24 10/02/2024 CBC AUTO W DIFF lymphocyte% 31.1 % 20.5-4 5.5 Not Available [facility] ([facility]) [address] [place], [address], 10/02/2024 07:51:03 10/02/20 24 10/02/2024 CBC AUTO W DIFF monocyte% 7.0 % 5.5-11 .7 Not Available [facility] ([facility]) [address] [place], [address], 10/02/2024 07:51:03 10/02/20 24 10/02/2024 CBC AUTO W DIFF eosinophil% 2.2 % 0.9-2. 9 Not Available [facility] ([facility]) [address] [place], [address], 10/02/2024 07:51:03 10/02/20 24 10/02/2024 CBC AUTO W DIFF basophil% 0.4 % 0.2-1. 0 Not Available [facility] ([facility]) [address] [place], [address], 10/02/2024 07:51:03 10/02/20 24 10/02/2024 CBC AUTO W DIFF immature granulocytes % 0.2 % 0.0-0. 8 Not Available [facility] ([facility]) [address] [place], [address], 10/02/2024 07:51:03 10/02/20 24 10/02/2024 CBC AUTO W DIFF nucleated red blood cells % 0.0 % Not Available [facility] ([facility]) [address] [facility], [place], [address], 10/02/2024 07:51:03 10/02/20 24 10/02/2024 CBC AUTO W DIFF neutrophil# 3.0 K/uL 2.2-4. 8 Not Available [facility] ([facility]) [address] [place], [address], 10/02/2024 07:51:03 10/02/20 24 10/02/2024 CBC AUTO W DIFF lymphocyte# 1.6 cell/ mcL 1.3-2. 9 Not Available [facility] ([facility]) [address] [place], [address], 10/02/2024 07:51:03 10/02/20 24 10/02/2024 CBC AUTO W DIFF monocyte# 0.4 cell/ mcL 0.3-0. 8 Not Available [facility] ([facility]) [address] [place], [address], 10/02/2024 07:51:03 10/02/20 24 10/02/2024 CBC AUTO W DIFF eosinophil# 0.1 cell/ mcL 0-0.2 Not Available [facility] ([facility]) [address] , [place], [address], 10/02/2024 07:51:03 10/02/20 24 10/02/2024 CBC AUTO W DIFF basophil# 0.0 cell/ mcL 0.0-1. 0 Not Available [facility] ([facility]) [address], [place], [address], 10/02/2024 07:51:03 10/02/20 24 10/02/2024 CBC AUTO W DIFF immature gramulocytes # 0.01 K/uL Not Available [facility] ([facility]) [address], [place], [address], 10/02/2024 07:51:03 10/02/20 24 10/02/2024 CBC AUTO W DIFF nucleated red blood cells # 0.00 K/uL Not Available [facility] ([facility]) [address], [place], [address], 10/02/2024 07:51:03 10/02/20 24 10/02/2024 CBC AUTO W DIFF manual differential NO Not Available [facility] ([facility]) [address], [place], [address], 10/02/2024 07:51:03 10/02/20 24 10/02/2024 COMP METAB OLIC PANEL sodium 140 mmol/ L 136-14 5 Not Available [facility] ([facility]) [address], [place], [address], 10/02/2024 08:04:39 10/02/20 24 10/02/2024 COMP METAB OLIC PANEL potassium 4.1 mmol/ L 3.6-5. 0 Not Available [facility] ([facility]) [address] , [place], [address], 10/02/2024 08:04:39 10/02/20 24 10/02/2024 COMP METAB OLIC PANEL chloride 102 mmol/ L 98-107 Not Available [facility] ([facility]) [address] , [place], [address], 10/02/2024 08:04:39 10/02/20 24 10/02/2024 COMP METAB OLIC PANEL carbon dioxide 26.6 mmol/ L 21.0-3 2.0 Not Available [facility] ([facility]) [address] , [place], [address], 10/02/2024 08:04:39 10/02/20 24 10/02/2024 COMP METAB OLIC PANEL anion gap 15.5 Not Available [facility] ([facility]) [address] , [place], [address], 10/02/2024 08:04:39 10/02/20 24 10/02/2024 COMP METAB OLIC PANEL glucose 147 mg/dL 70-120 high Not Available [facility] ([facility]) [address] , [place], [address], 10/02/2024 08:04:39 10/02/20 24 10/02/2024 COMP METAB OLIC PANEL BUN 19 mg/dL 7-18 high Not Available [facility] ([facility]) [address] , [place], [address], 10/02/2024 08:04:39 10/02/20 24 10/02/2024 COMP METAB OLIC PANEL creatinine 0.8 mg/dL 0.6-1. 3 Not Available [facility] ([facility]) [address] [place], [address], 10/02/2024 08:04:39 10/02/20 24 10/02/2024 COMP METAB [...] latham ing kiney funct ion. Not Available [facility] ([facility]) [address], [place], [address], 10/02/2024 08:04:39 10/02/20 24 10/02/2024 COMP METAB OLIC PANEL total protein 7.5 g/dL 6.4-8. 2 Not Available [facility] ([facility]) [address] [facility], [place], [address], 10/02/2024 08:04:39 10/02/20 24 10/02/2024 COMP METAB OLIC PANEL albumin 4.2 g/dL 3.4-5. 0 Not Available [facility] ([facility]) [address], [place], [address], 10/02/2024 08:04:39 10/02/20 24 10/02/2024 COMP METAB OLIC PANEL globulin 3.3 Not Available [facility] ([facility]) [address], [place], [address], 10/02/2024 08:04:39 10/02/20 24 10/02/2024 COMP METAB OLIC PANEL alb/glob ratio 1.3 0.7-2 Not Available [facility] ([facility]) [address] , [place], [address], 10/02/2024 08:04:39 10/02/20 24 10/02/2024 COMP METAB OLIC PANEL calcium 9.5 mg/dL 8.5-10 .5 Not Available [facility] ([facility]) [address], [place], [address], 10/02/2024 08:04:39 10/02/20 24 10/02/2024 COMP METAB OLIC PANEL bilirubin total 0.30 mg/dL 0.10-1 .00 Not Available [facility] ([facility]) [address], [place], [address], 10/02/2024 08:04:39 10/02/20 24 10/02/2024 COMP METAB OLIC PANEL AST (SGOT) 40 U/L 0-37 high Not Available [facility] ([facility]) [address], [place], [address], 10/02/2024 08:04:39 10/02/20 24 10/02/2024 COMP METAB OLIC PANEL ALT (SGPT) 78 U/L 0-65 high Not Available [facility] ([facility]) [address], [place], [address], 10/02/2024 08:04:39 10/02/20 24 10/02/2024 COMP METAB OLIC PANEL alk phosphatase 82 U/L 46-116 Not Available [facility] ([facility]) [address], [place], [address], 10/02/2024 08:04:39 10/02/20 24 10/02/2024 PT (PROT HROMB IN TIME) W INR prothrombin time 10.1 secon ds 9.3-11 .4 Not Available [facility] ([facility]) [address] [place], [address], 10/02/2024 08:08:50 10/02/20 24 10/02/2024 PT (PROT [...] Mecha nical Heart Valve s Not Available [facility] ([facility]) [address] [facility], [place], [address], 10/02/2024 08:08:50 10/02/20 24 10/03/2024 ACUTE HEPAT ITIS PANEL hep A Ab, IgM Negati ve negati ve A negat liliam anti- HAV IgM resul t sugge sts no recen t or curre nt HAV infec tion. Not Available [facility] ([facility]) [address], [place], [address], 10/03/2024 06:16:59 10/02/20 24 10/03/2024 ACUTE HEPAT ITIS PANEL HBsAg screen Negati ve negati ve Not Available [facility] ([facility]) [address], [place], [address], 10/03/2024 06:16:59 10/02/20 24 10/03/2024 ACUTE HEPAT ITIS PANEL hep B core Ab, IgM Negati ve negati ve Not Available [facility] ([facility]) [address], [place], [address], 10/03/2024 06:16:59 10/02/20 24 10/03/2024 ACUTE HEPAT ITIS PANEL HCV Ab Non Reacti ve non reacti ve Perfo rmed at: - [facility] [address] [place] [address], [place] [id number] [facility] Direc tor: Luis copeland PhD, Phone : [phone] Not Available [facility] ([facility]) [address] [place], [address], 10/03/2024 06:16:59 10/02/20 24 10/03/2024 ACUTE HEPAT ITIS PANEL hep A Ab, IgM Negati ve negati ve A negat liliam anti- HAV IgM resul t sugge sts no recen t or curre nt HAV infec tion. Not Available [facility] ([facility]) [address], [place], [address], 10/03/2024 06:17:00 10/02/20 24 10/03/2024 ACUTE HEPAT ITIS PANEL HBsAg screen Negati ve negati ve Not Available [facility] ([facility]) [address], [place], [address], 10/03/2024 06:17:00 10/02/20 24 10/03/2024 ACUTE HEPAT ITIS PANEL hep B core Ab, IgM Negati ve negati ve Not Available [facility] ([facility]) [address], [place], [address], 10/03/2024 06:17:00 10/02/20 24 10/03/2024 ACUTE HEPAT ITIS PANEL HCV Ab Non Reacti ve non reacti ve [facility] at: [email or web address] [address] [facility], [place] [address] 12[address] Lab Direc tor: Luis copeland PhD, Phone : [phone] Not Available [facility] ([facility]) [address], [place], [address], 10/03/2024 06:17:00 10/02/20 24 10/03/2024 ACUTE HEPAT ITIS PANEL interpretati on: Commen t . Not infec jelena with HCV unles s early or acute infec tion is suspe cted (whic h may be delay ed in an immun ocomp romis ed indiv idual ), or other evide nce exist s to indic ate HCV infec tion. [facility] at: [email or web address] [address] [facility], [place], [place] [id number] Lab Direc tor: Luis copeland PhD, Phone : [phone] Not Available [facility] ([facility]) [address], [place], [address], 10/03/2024 06:17:00 10/02/20 24 10/03/2024 ARNAV W/REF LEEANN IF POSIT LILIAM antinuclear Ab, direct NEGATI VE negati ve Perfo rmed at: [facility] n [address] [facility], [place], [place] [id number] Lab Direc tor: Luis copeland PhD, Phone : [phone] Not Available [facility] ([facility]) [address], [place], [address], 10/03/2024 13:13:40 10/02/20 24 10/03/2024 MITOC HONDR IAL ANTIB ODIES mitochondria l (M2) Ab <20.0 units 0.0-20 .0 Negat liliam 0.0 - 20.0 Equiv ocal 20.1 - 24.9 Posit liliam >24.9 . Mitoc hondr ial (M2) Antib odies are found in 90-96 % of patie nts with prima ry bilia ry cirrh osis. Perfo rmed at: [facility] n [address] [facility], [place], [place] [id number] Lab Direc tor: Luis copeland PhD, Phone : [phone] Not Available [facility] ([facility]) [address], [place], [address], 10/03/2024 15:14:30 10/02/20 24 10/03/2024 IGG IgG 201 mg/dL 586-16 02 low Resul t confi rmed on matt ntrat ion. Perfo rmed at: [facility] [address] [place], [place] [id number] Lab Direc tor: Luis copeland PhD, Phone : [phone] Not Available [facility] ([facility]) [address], [place], [address], 10/03/2024 15:14:32 10/02/20 24 10/03/2024 ACTIN (SMOO [...] osis. Perfo rmed at: [facility] [address] [place] [address]69 Lab Direc tor: Luis copeland PhD, Phone : [phone] Not Available [facility] ([facility]) [address] , [place], [address], 10/03/2024 15:14:34 10/02/20 24 10/05/2024 BAUTISTA FIBRO SURE PLUS alpha 2-macroglobu jericho, qn 563 mg/dL 110-27 6 high Not Available [facility] ([facility]) [address], [place], [address], 10/05/2024 06:16:12 10/02/20 24 10/05/2024 BAUTISTA FIBRO SURE PLUS haptoglobin 166 mg/dL 33-346 Not Available [facility] ([facility]) [address] , [place], [address], 10/05/2024 06:16:12 10/02/20 24 10/05/2024 BAUTISTA FIBRO SURE PLUS apolipoprote in A-1 190 mg/dL 116-20 9 Not Available [facility] ([facility]) [address] [place], [address], 10/05/2024 06:16:12 10/02/20 24 10/05/2024 BAUTISTA FIBRO SURE PLUS bilirubin, total 0.2 mg/dL 0.0-1. 2 Not Available [facility] ([facility]) [address] [place], [address], 10/05/2024 06:16:12 10/02/20 24 10/05/2024 BAUTISTA FIBRO SURE PLUS GGT 22 IU/L 0-60 Not Available [facility] ([facility]) [address] [place], [address], 10/05/2024 06:16:12 10/02/20 24 10/05/2024 BAUTISTA FIBRO SURE PLUS ALT (SGPT) p5p 69 IU/L 0-40 high Not Available [facility] ([facility]) [address] [place], [address], 10/05/2024 06:16:12 10/02/20 24 10/05/2024 BAUTISTA FIBRO SURE PLUS AST (SGOT) p5p 48 IU/L 0-40 high Not Available [facility] ([facility]) [address] [place], [address], 10/05/2024 06:16:12 10/02/20 24 10/05/2024 BAUTISTA FIBRO SURE PLUS cholesterol, total 138 mg/dL 100-19 9 Not Available [facility] ([facility]) [address] [place], [address], 10/05/2024 06:16:12 10/02/20 24 10/05/2024 BAUTISTA FIBRO SURE PLUS glucose, serum 156 mg/dL 70-99 high Not Available [facility] [address] [place], [address], 10/05/2024 06:16:12 10/02/20 24 10/05/2024 BAUTISTA FIBRO SURE PLUS triglyceride s 229 mg/dL 0-149 high Not Available [facility] [address] [place], [address], 10/05/2024 06:16:12 10/02/20 24 10/05/2024 BAUTISTA FIBRO [...] Stage F4 - Cirrh osis Not Available [facility] ([facility] [address] [place], [address], 10/05/2024 06:16:12 10/02/20 24 10/05/2024 BAUTISTA FIBRO SURE PLUS fibrosis stage F1-F2 Not Available [facility] [address] [place], [address], 10/05/2024 06:16:12 10/02/20 24 10/05/2024 BAUTISTA FIBRO SURE PLUS fibrosis score 0.32 0.00-0 .21 high Not Available [facility] ([facility] [address] [place], [address], 10/05/2024 06:16:12 10/02/20 24 10/05/2024 BAUTISTA FIBRO SURE PLUS steatosis score 0.49 0.00-0 .40 high Not Available [facility] ([facility] [address] [place], [address], 10/05/2024 06:16:12 10/02/20 24 10/05/2024 BAUTISTA FIBRO SURE PLUS steatosis grade Commen t S1 - Mild Steat osis (But Clini filomena Signi fican t) (5- 33%) Not Available [facility] ([facility]) [address] [place], [address], 10/05/2024 06:16:12 10/02/20 24 10/05/2024 BAUTISTA FIBRO SURE PLUS steatosis scoring Commen t . <=0.4 0 = S0 - No Steat osis (<5%) 0.40 - 0.55 = S1 - Mild Steat osis (but Clini filomena Signi fican t) (5-33 %) >0.55 = S2S3- Moder ate to Sever e Steat osis (Clin icall y Signi fican t) (34-1 00%) Not Available [facility] ([facility]) [address], [place], [address], 10/05/2024 06:16:12 10/02/20 24 10/05/2024 BAUTISTA FIBRO SURE PLUS bautista scoring Commen t . <=0.2 5 = N0 - No BAUTISTA/ MASH 0.25 - 0.50 = N1 - Mild BAUTISTA/ MASH 0.50 - 0.75 = N2 - Moder ate BAUTISTA/ MASH >0.75 = N3 - Sever e BAUTISTA/ MASH Not Available [facility] [address], [place], [address], 10/05/2024 06:16:12 10/02/20 24 10/05/2024 BAUTISTA FIBRO SURE PLUS bautista grade Commen t N3 - Sever e BAUTISTA Not Available [facility] [address], [place], [address], 10/05/2024 06:16:12 10/02/20 24 10/05/2024 BAUTISTA FIBRO SURE PLUS bautista score 0.82 0.00-0 .25 high Not Available [facility] [address], [place], [address], 10/05/2024 06:16:12 10/02/20 24 10/05/2024 BAUTISTA FIBRO [...] ction s of fibro sis. Not Available [facility] [address], [place], [address], 10/05/2024 06:16:12 10/02/20 24 10/05/2024 BAUTISTA FIBRO SURE PLUS methodology: Commen t . The jerel mello teste d are perfo rmed by Fibro Sure- Speci fic metho ds. Not inten ded for use with other diagn ostic consi derat ions. Not Available [facility] [address], [place], [address], 10/05/2024 06:16:12 10/02/20 24 10/05/2024 BAUTISTA FIBRO SURE PLUS interpretati on: Commen t . Quant itati ve resul ts of 10 bioch emica ls in combi natio n with age and gende r, are jerel zed using a compu tatio nal algor ithm to provi de a quant itati ve surro gate marke r (0.0- 1.0) of liver fibro sis ([place] vir F0-F4 ), hepat ic steat osis [...] fican t NAFLD /MASL D fibro sis ([place] vir F2-F4 ) and 11% had cirrh [...] ficit y of 71%. 3 Not Available [facility] [address], [place], [address], 10/05/2024 06:16:12 10/02/20 24 10/05/2024 BAUTISTA FIBRO SURE PLUS comment: Commen t . This test was devel oped and its perfo rmanc e natty cteri stics deter mined by Lorena Gaxiola . It has not been clear ed or appro mellissa by the Food and Drug Admin istra tion. . For quest ions regar ding this repor t pleas e conta ct custo geraldine servi ce at [phone]. . Refer ences : . 1. Bev [...] at: BN - [facility] [place] [address] [facility] , [place] [address] Lab Direc tor: Mita cooper MD, Phone : [phone] Not Available [facility] ([facility] [address] [facility], [place], [address], 10/05/2024 06:16:12 10/02/20 24 10/07/2024 HERED ITARY [...] ders to discu ss resul ts at [phone] GENE (3010 ). . Test Detai ls: Three varia nts jerel zed: c.845 G>A (p.Cy s282T yr), commo nly refer red to as C282Y c.187 C>G (p.Hi s63As p), commo nly refer red to as H63D c.193 A>T (p.Se r65Cy s), commo nly refer red to as S65C . Metho ds/Li mitat ions: DNA Jerel sis of the HFE gene (NM_0 [id number] .4) was perfo rmed by PCR ampli [...] e natty cteri stics deter mined by Lorena Gaxiola rp. It has not been clear ed [...] 3. doi: 10.10 02/he p.243 30. PMID: 57093 290; PMCID : PMC31 58190 . Cosmo G, Huey lowe P, Flores [...] hg.20 15.12 8. Epub 2014May 20. PMID: 88764 218; PMCID : PMC49 73673 . Not Available [facility] [address], [place], [address], 10/07/2024 17:10:09 10/02/20 24 10/07/2024 HERED ITARY HEMOC HROMA TOSIS reviewed by: Alberto kumar Techn ical [facility] perfo rmed at [facility] rp RTP Profe génesison al [facility] perfo rmed by: . Labor atory Corpo ratio n of Linnea barragan, Ph.D. , [facility] Dire tor, Molec ular [facility] [address] [place] [address] Perfo rmed at: TG - [facility] rp RTP [address] [facility] , [place] [address] Lab Dire tor: Anjana Okeefe [facility] , Phone : [phone] Not Available [facility] [address], [place], [address], 10/07/2024 17:10:09 10/02/20 24 10/16/2024 A1A DEFIC [...] dianna n and Clif nts. Not Available [facility] [address], [place], [address], 10/16/2024 17:10:10 10/02/20 24 10/16/2024 A1A DEFIC [...] ders to discu ss resul ts at [phone]- GENE (4626 ). . Test Detai ls: Two varia [...] es in the SERPI NA1 gene (NM_[id number] .[id number]) was perfo rmed by multi plex [...] e natty cteri stics deter mined by [email or web address] rp. It has not been clear ed [...] doi: 10.15 326/j copdf .3.32014. 0182. PMID: 37367 891; PMCID : PMC55 86445 . Tony NIEVES, Siddhartha estrada V, Prosper ZAPATA. Alpha -1 Antit rypsi n Defic iency . 2005Sep 08 Updat ed 2019April 02 . In: [place] MP, Uziel cuellar HH, Ariella RA, et al., derek rs. GeneR niko segura(R) Inter net . [place] ([place]): [facility]; 1992- 2020. Avail able from: https ://ww w.ncb i.nlm .nih. gov/b ooks/ NBK15 19/ Not Available [facility] [address] [facility], [place], [address], 10/16/2024 17:10:10 10/02/20 24 10/16/2024 A1A DEFIC ENCY PROFI LE electronical ly signed by: Alberto Hadley , PhD [facility] Not Available [facility] [address] [facility], [place], [address], 10/16/2024 17:10:10 10/02/20 24 10/16/2024 A1A DEFIC ENCY PROFI LE a1a rfx to phenotype Not Indica jelena Perfo rmed at: [facility] [address] [facility] , [place] [address] Lab Direc tor: Mita cooper MD, Phone : [phone] Perfo rmed at: TG - [facility] rp RTP [address] [facility] , [place] [address] Lab Direc tor: Anjana Okeefe [facility] , Phone : [phone] Not Available [facility] [address] [facility], [place], [address], 10/16/2024 17:10:10 10/02/20 24 10/16/2024 A1A DEFIC ENCY PROFI LE upipr-5-znvq trypsin,seru m 152 mg/dL 101-18 7 Not Available [facility] [address] [facility], [place], [address], 10/16/2024 17:10:10 10/14/20 24 10/14/2024 [place] [address] [place] [address] Phone: Fax: Name: ZEHRA ESPINO Exam Date: : 1964 Age 58 years Gender : F Access ion: [id number] Physic judith: CASBRYCE IA Facili ty: [facility] Facili ty HSV: Outpat ient Exam: LIVER ULTRAS OUND Proced ure: US LIVER Exam Date: 9:08 AM [employer]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 Legall y authen ticate d by MELISSA LAINEZ 2023-11 10:08: 00 CC'ed Logic: Orderi ng Provid er: CSA AVERY Attend ing Provid er: CAS AVERY Admitt ing Provid er: CAS AVERY [facility] [address] [place] [address], [address], 10/30/2024 16:06:24 11/27/19 25 11/27/2024 MRI, abdom en, w/o contr ast [facility] [address] [place] [address] Phone: Fax: Name: ZEHRA ESPINO Exam Date: : 1964 Age 59 years Gender : F Access ion: [id number] 00 [id number] Physic judith: BRYCE CARDOZO Facili ty: [facility] Facili ty HSV: Outpat ient Exam: MRI ABD W/O MR ABDOME N WITHOU T IV CONTRA ST, 025 8:59 AM [employer]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 Legall y authen ticate d by TEMO CRAWFORD 11-27 09:59: 00 CC'ed Logic: Orderi ng Provid er: CAS AVERY Attend ing Provid er: CAS AVERY Referr ing Provid er: CAS AVERY Admitt ing Provid er: CAS AVERY [email or web address] [facility] [address] [facility], [place], [address], 12/09/2024 15:47:04 Result Notes None recorded. Procedures Surgical History Date Name Laterality Status Provider Name and Address Organization Details Recorded Time section completed Nigel JEAN [facility] [place] 11/28/2022 11:28:22 Knee Surgery completed Nigel JEAN [facility] [place] 11/28/2022 11:28:38 tonsilectomy/adenoi ds completed Nigel JEAN [facility] [place] 11/28/2022 11:28:50 thumb surgery completed Nigel JEAN [facility] [place] 11/28/2022 11:29:21 repair of shoulder completed Nigel JEAN [facility] [place] 11/28/2022 11:29:15 procedure on foot completed Nigel JEAN [facility] [place] 11/28/2022 11:29:29 Knee Surgery completed Nigel JEAN [facility] & [place] 11/28/2022 11:29:42 cholecystectomy completed Nigel Marie [facility] & [place] 01/02/2023 08:59:30 Imaging Results Imaging Date Name Status LastModified by Organiz ation Details LastModified Time 10/14/2024 US, liver completed [facility] [address], [place], [address], 10/30/2024 16:06:24 11/27/2024 MRI, abdomen, w/o contrast completed [address] [facility] [address], [place], [address], 12/09/2024 15:47:04 Procedure Notes None recorded. Medical Equipment None Reported. Allergies Allergen ID Allergen Name Allergen Category Reaction Reaction Severity Criticality Documentation Date Start Date Code Code System Note Provider Name and Address Organization Details Recorded Time 05847 lisinopri l medicatio n Not available Not available Not available 10/26/2022 53556 RxNorm Analupe estrada ARIANE Marie [facility] & [place] 15:20:06 Medications Name Sig Start Date Stop [...] Updated DateTime 3 175.26 cm 27.4 kg/m2 82153.7 4 g 79 /min 136 mm[Hg] 86 mm[Hg] Nigel THAKKAR - [facility]NT - [place] & [place] 3 11:25:46 Date Recorded Body height Body mass index (BMI) Body weight Heart rate Systolic blood pressure Diastolic blood pressure Provider Name and Address Organization Details Last Updated DateTime 3 175.26 cm 27.1 kg/m2 54790.8 4 g 84 /min 137 mm[Hg] 84 mm[Hg] Nigel THAKKAR - [facility]NT - [place] & [place] 3 08:58:44 Date Recorded Body weight Oxygen saturation Oxygen saturation in Arterial blood by Pulse oximetry Heart rate Systolic blood pressure Diastolic blood pressure Provider Name and Address Organization Details Last Updated DateTime 4 43723.0 8 g 96 % 96 % 85 /min 111 mm[Hg] 61 mm[Hg] Mary THAKKAR - LPNT [facility] & [place] 4 10:14:49 Date Recorded Body weight Heart rate Systolic blood pressure Diastolic blood pressure Provider Name and Address Organization Details Last Updated DateTime 10/26/2022 05913.37 g 81 /min 117 mm[Hg] 71 mm[Hg] Ana THAKKAR - LPNT [facility] [place] 10/26/2022 15:20:45 Social History Question Answer Notes LastModified by [employer] Details LastModified Time Tobacco Smoking Status Former Smoker Nigel estrada, ARIANE Marie [facility]NT [facility] & [place] 11/28/2022 11:28:10 What Is Your Level Of Caffeine Consumption? Moderate [email or web address] Information not available 10/01/2024 Sex: Unknown Functional Status Question Answer Note LastModified by [employer] Details LastModified Time Do you use any illicit or recreational drugs? No [email or web address] Information not available 10/01/2024 What is your level of alcohol consumption? None [email or web address] Information not available 10/01/2024 Mental Status None [...] Gout N Kidney Stones N Hyperthyroidism N Depression N COPD N Hypothyroidism N Osteoporosis/Osteopenia N Diverticulitis/Diverticulosis N Colon Polyps [...] SNOMED-CT Code Diagnosis ICD10 Code Diagnosis Note [id number] Johnna Karimi NP [facility] [address] [facility] [address] [place] [address] 10/26/2022 15:08:20 10/26/2022 16:09:30 Steatotic liver disease 300546877 K76.0 - believes PCP checked hepatitis- A and B status, will follow-up and let us know - Avoid NSAIDs and alcohol. - Do not take over 2 g of acetaminop hen daily. - Discussed weight loss and healthy diet.- liver ultrasound done 10/07/2022 , repeat in 6 months- will check labs at next office visit Liver cyst [id number] K76. 89 - 1.5 cm hepatic cyst- discussed with patient since cyst is less than 4 cm there is no further recommenda tion for additional follow-up Cholelithi asis without obstruction 47016364 K80.20 - Referral placed to Dr. Funk [id number] Antwan Funk MD [facility] [address] [facility] [address] [place] [address] 11/28/2022 10:44:00 11/28/2022 13:50:53 Cholelithiasis without obstruction 44487838 K80.20 [id number] Antwan Funk MD [facility] [address] [facility] [address] [place] [address] 01/02/2023 08:47:14 01/02/2023 09:08:51 Chronic cholecystitis without calculus 77401361 K81.1 [id number] VANESSA CARDOZO NP [facility] [address] [facility] [address] [place] [address] 10/01/2024 09:59:56 10/01/2024 10:56:25 Liver enzymes level above reference range [id number] R74.01 Screening for malignant neoplasm of colon 387433234 Z12.11 Health Concerns Section Related Observation LastModified by Organization Detai ls LastModified Time None Recorded Concern Status LastModified by Organization Details LastModified Time None Recorded Advance Directives Directive None Recorded Payers Insurance Date Sequence Insurance Name Policy Number Policy Gregorio Covered Member ID Gregorio Member ID Guarantor Name 11/20/2024 1 [place] [id number] Zehra Espino [id number] Zehra Espino Notes Date Note Type [...] constipation or hematochezia. Johnna Karimi NP [address] [facility], [place], [address], [facility] - [facility] - [place] & [place] 10/26/2022 16:22:00 10/01/2024 text/html CURRENT: Ms.Sano mckinney is a 58 year old female referred to us by Ms. Saba APRN for elevated liver enzymes. AST 48/ ALT 79 on recent labs. She reports she has had elevated liver enzymes for years dating back to 2011. Liver ultrasound in 2011 showed extensive hepatic steatosis. 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 She has a distant history of heavy alcohol use in her 20s but now only drinks excessively once a year. She denies history of drug use. No history hepatitis. She denies issues with jaundice, abdominal swelling, easy bleeding, or unintentional weight loss. NO other GI complaints. VANESSA CARDOZO, MACHINE LOADER [address], [place], [address], [facility] - [facility] - [place] & [place] 10/01/2024 19:14:11 OBGyn Episode No OBEpisode recorded.
[2025-03-26] MEDS: VALACYCLOVIR 500 MG 500 EACH PO (15:21)
--- NOTE | 2025-03-26 15:53 | PC.NURSE ---
Aox 4, up with assistance times one, fsgb achs, 20g L AC SL, diabetic diet, PT and OT following, dressing tripp to right foot c/d/i.
[2025-03-26 16:04] LABS: POC Glucose,Bedside 265 (70-110)
--- NOTE | 2025-03-26 16:04 | EXP.ACUTE.PN ---
Subjective *Date: 03/26/25 *Time: 16:04 Interval history: Seen after surgery. Stable on room air. Pain controlled as she had a nerve block. Denies chest pain, nausea, vomiting. Alert and oriented x 4 Medical Exam Vital signs and Labs for Last 24 Hours: Vital Signs Temp Pulse Pulse Resp BP BP Pulse Ox 03/26/25 14:59 03/26/25 13:30 97.6 F 79 16 132/86 98 03/26/25 13:00 97.6 F 80 16 137/87 98 03/26/25 12:30 97.6 F 81 16 131/74 97 03/26/25 12:15 97.6 F 81 16 117/66 97 03/26/25 12:00 97.6 F 76 16 124/78 96 03/26/25 11:57 16 03/26/25 11:54 03/26/25 11:45 97.6 F 78 16 120/69 93 L 03/26/25 11:30 97.6 F 83 16 121/70 92 L 03/26/25 11:25 97.3 F L 81 99 H 121/72 03/26/25 11:15 97.3 F L 83 96 H 104/76 L 03/26/25 11:05 97.3 F L 88 96 H 111/73 03/26/25 11:00 97.3 F L 81 16 114/63 03/26/25 10:55 97.3 F L 85 96 H 114/63 03/26/25 08:30 03/26/25 08:00 98.1 F 81 18 122/71 98 03/26/25 07:31 97.6 F 78 16 112/64 98 03/26/25 06:57 03/26/25 05:00 03/26/25 04:00 97.6 F 78 16 112/64 98 03/26/25 03:00 03/26/25 01:00 03/26/25 00:00 98.3 F 86 16 119/64 97 03/25/25 23:00 03/25/25 21:00 03/25/25 20:00 03/25/25 20:00 98.2 F 77 16 127/63 98 03/25/25 18:45 03/25/25 17:00 O2 Del Method 03/26/25 14:59 Room Air 03/26/25 13:30 Room Air 03/26/25 13:00 Room Air 03/26/25 12:30 Room Air 03/26/25 12:15 Room Air 03/26/25 12:00 Room Air 03/26/25 11:57 03/26/25 11:54 Room Air 03/26/25 11:45 Room Air 03/26/25 11:30 Room Air 03/26/25 11:25 Room Air 03/26/25 11:15 Room Air 03/26/25 11:05 Room Air 03/26/25 11:00 03/26/25 10:55 Room Air 03/26/25 08:30 Room Air 03/26/25 08:00 Room Air 03/26/25 07:31 CPAP 03/26/25 06:57 Room Air 03/26/25 05:00 Room Air 03/26/25 04:00 CPAP 03/26/25 03:00 CPAP 03/26/25 01:00 CPAP 03/26/25 00:00 CPAP 03/25/25 23:00 CPAP 03/25/25 21:00 Room Air 03/25/25 20:00 Room Air 03/25/25 20:00 Room Air 03/25/25 18:45 Room Air 03/25/25 17:00 Room Air Intake and Output 03/26/25 03/26/25 03/26/25 07:59 15:59 23:59 Intake Total 750 / 2220 1470 / 2220 Output Total 0 / 0 0 / 0 Balance 750 / 2220 1470 / 2220 Intake: Intake, Oral Amount 270 / 270 Intake, Total IV Amount 750 / 1950 1200 / 1950 Cefepime HCl 2 gm In 0.9 % 200 / 200 Sodium Chloride 100 ml @ 200 mls/hr IV ONCE ONE Rx#:[id number] Cefepime HCl 2 gm In 0.9 % 100 / 100 Sodium Chloride 100 ml @ 200 mls/hr IV Q8H [facility] Rx#:[id number] Metronidaz/Sod Chl 500 mg In 200 / 200 100 ml @ 100 mls/hr IV ONCE ONE Rx#:[id number] Vancomycin/Water For Inj (Peg) 350 / 350 1.75 gm In 350 ml @ 175 mls/hr IV Q18H [facility] Rx#:[id number] Output: Output, Urine Amount 0 / 0 0 / 0 Other: Number of Voids 1 Number of Unmeasured Voids 1 1 Weight 88.532 kg Patient Weight 03/26/25 23:59 Weight 88.532 kg Laboratory Results - last 24 hr 03/25/25 17:20: POC Glucose 182 H 03/25/25 21:01: POC Glucose 118 H 03/26/25 05:21: WBC 7.6 D, RBC 3.16 L, Hgb 9.8 L, Hct 30.2 L, MCV 95.6, MCH 31.0, MCHC 32.5, RDW 12.0, Plt Count 158, MPV 11.0 H, Neut % (Auto) 80.3 H, Lymph % (Auto) 11.3, [place] % (Auto) 6.2, Eos % (Auto) 1.7, Baso % (Auto) 0.1, Neut # (Auto) 6.1, Lymph # (Auto) 0.9, [place] # (Auto) 0.5, Eos # (Auto) 0.1, Baso # (Auto) 0.0, ESR 128 H, Sodium 138, Potassium 4.4, Chloride 112 H, Carbon Dioxide 22, Anion Gap 8.4, BUN 19 H, Creatinine 0.80, Estimated Creat Clear 105, Estimated GFR 73, Est GFR ( Amer) 89, Glucose 124 H D, Hemoglobin A1c 6.9 H, Calcium 8.9, Magnesium 2.5 H, Total Bilirubin 0.4, AST 26, ALT 28, Alkaline Phosphatase 75, C-Reactive Protein 149.5 H, Total Protein 6.2 L, Albumin 3.8, Globulin 2.4, Albumin/Globulin Ratio 1.6, TSH 4.10 03/26/25 10:57: POC Glucose 180 H 03/26/25 15:53: POC Glucose 265 H I & O for Labs for Last 24 Hours: Intake & Output 03/23/25 03/24/25 03/25/25 03/26/25 23:59 23:59 23:59 23:59 Intake Total 1150 / 1900 2219 Output Total 0 / 0 0 / 0 Balance 115 1902219 / 0 Weight 88.536 kg 88.532 kg Microbiology Reports for the Last 24 Hours: Microbiology 03/25/25 11:51 Blood Blood Culture - Preliminary NO GROWTH AFTER 24 HOURS 03/25/25 11:08 Blood Blood Culture - Preliminary NO GROWTH AFTER 24 HOURS 03/25/25 12:27 Foot,Right - Abscess Gram Stain - Final 03/25/25 12:27 Foot,Right - Abscess Wound Culture - Preliminary Constitutional: Present no acute distress, average body habitus and cooperative Head: Present atraumatic and normocephalic ENT: Present normal exam Respiratory: Present normal respiratory effort; Absent rhonchi, wheezes or crackles Cardiac: Present Reg Rate and Rhythm GI: Present soft and normal bowel sounds; Absent distention or tenderness Extremities: Present normal inspection and full ROM; Absent edema Comment:: Right foot in postop bandage. Status post amputation of second metatarsal and second Skin: Present intact; Absent erythema Neuro: Present Grossly Intact, alert, oriented x 3 and moves all extremities Assessment and Plan *Assessment and plan (1) Diabetic ulcer of foot associated with diabetes mellitus due to underlying condition, with fat layer exposed: Problem Comment: Right sub 2nd DFU Status: Acute Qualifiers: Diabetic foot ulcer location: unspecified part of foot Laterality: right Qualified Code(s): E08.621 - Diabetes mellitus due to underlying condition with foot ulcer; L97.512 - Non-pressure chronic ulcer of other part of right foot with fat layer exposed Category: Medical Code(s): E08.621 - Diabetes mellitus due to underlying condition with foot ulcer; L97.502 - Non-pressure chronic ulcer of other part of unspecified foot with fat layer exposed (2) Cellulitis: Status: Acute Qualifiers: Laterality: right Site of cellulitis: extremity Site of cellulitis of extremity: lower extremity Qualified Code(s): L03.115 - Cellulitis of right lower limb Category: Medical Code(s): L03.90 - Cellulitis, unspecified (3) Diabetic ulcer of toe of right foot: Status: Acute Qualifiers: Diabetes mellitus type: type 2 Non-pressure ulcer stage: with fat layer exposed Qualified Code(s): E11.621 - Type 2 diabetes mellitus with foot ulcer; L97.512 - Non-pressure chronic ulcer of other part of right foot with fat layer exposed Category: Medical Code(s): E11.621 - Type 2 diabetes mellitus with foot ulcer; L97.519 - Non-pressure chronic ulcer of other part of right foot with unspecified severity (4) Diabetic foot: Status: Acute Category: Medical Code(s): E11.8 - Type 2 diabetes mellitus with unspecified complications (5) S/P coronary artery stent placement: Status: Acute Category: Surgical Code(s): Z95.5 - Presence of coronary angioplasty implant and graft (6) Hyperlipidemia: Status: Acute Qualifiers: Hyperlipidemia type: unspecified Qualified Code(s): E78.5 - Hyperlipidemia, unspecified Category: Medical Code(s): E78.5 - Hyperlipidemia, unspecified (7) Diabetes: Status: Acute Qualifiers: Diabetes mellitus type: other specified (including OTIS) Diabetes mellitus 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 insulin use: unspecified 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 insulin use status Diabetes mellitus complication status: with other specified complication Qualified Code(s): E13.69 - Other specified diabetes mellitus with other specified complication Category: Medical Code(s): E11.9 - Type 2 diabetes mellitus without complications (8) Acquired hammertoe of right foot: Status: Acute Category: Medical Code(s): M20.41 - Other hammer toe(s) (acquired), right foot (9) Cellulitis of third toe, right: Status: Acute Category: Medical Code(s): L03.031 - Cellulitis of right toe (10) Infection of toe: Status: Acute Category: Medical Code(s): L08.9 - Local infection of the skin and subcutaneous tissue, unspecified (11) Incurvated nail: Status: Acute Category: Medical Code(s): L60.8 - Other nail disorders (12) Foot pain: Status: Acute Qualifiers: Laterality: bilateral Qualified Code(s): M79.671 - Pain in right foot; M79.672 - Pain in left foot Category: Medical Code(s): M79.673 - Pain in unspecified foot Plan 59-year-old female with diabetes and neuropathy in her feet. Presents with worsening signs of infection in her foot concerning for diabetic foot ulcer with infection. Discussed case with ER physician, request admission for further management. I agreed to admit for further care. Initiated on broad-spectrum antibiotics. Podiatry consulted. Surgical debridement performed today. Continues to require inpatient management. Problems addressed as follows: Diabetic ulcer of right foot complicated by cellulitis - Continue vancomycin, cefepime, Flagyl IV. -White count 7.6, hemoglobin 9.8. CRP 149. Kidney function normal with BUN 19, creatinine 0.8 - Repeat CBC, CMP, magnesium ordered for the morning - Taken for surgery today, discussed case with podiatry. Second metatarsal resection performed along with amputation of second toe. Will be nonweightbearing for the next 3 to 4 weeks. PT to evaluate in the morning. Patient has knee scooter at home. Continue broad-spectrum antibiotics for total of 2 weeks. -Wound culture pending. Diabetes: A1c historically well-controlled less than 7, repeat 6.9. On oral antihyperglycemics at this time. - Continue empagliflozin 10 mg daily, metformin extended release 500 mg daily, hold Mounjaro in the inpatient setting - Fingersticks ACHS with sliding scale insulin ACHS. Okay to use continuous glucose monitor as substitute for fingersticks Hypertension CAD - continue losartan 25 mg daily, bisoprolol 5 mg daily. - Resume aspirin 81 mg daily and Plavix 75 mg daily after surgery - Resume Crestor per home regimen Full code Diabetic diet Consider anticoagulation after surgery
[2025-03-26] MEDS: ATORVASTATIN 40MG TABLET 40 MG PO (20:32)
[2025-03-26] MEDS: APAP/HYDROCODONE 325MG/7.5MG TAB 1 TAB PO (20:50)
[2025-03-27] VITALS: BP 113/61; PULSE 72; RESP 16; TEMP 36.6; O2SAT 95
[2025-03-27] MEDS: VANCOMYCIN/WATER FOR INJ (PEG) 1.75 GM/350 ML PIGGYBACK IV (00:30)
[2025-03-27] MEDS: APAP/HYDROCODONE 325MG/7.5MG TAB 1 TAB PO ×2 (02:42→08:23)
[2025-03-27 04:00] VITALS: BP 108/55; PULSE 68; RESP 16; TEMP 36.4; O2SAT 98; BMI 29.7
[2025-03-27] MEDS: METRONIDAZ/SOD CHL 500 MG/100 ML PIGGYBACK 100 MG IV (04:00)
--- NOTE | 2025-03-27 05:28 | PC.NURSE ---
v/s, ox4. Pt c/o pain, treated per JAN. Pt's dressing on foot monitored for drainage. Pt tolerated IV ABX. Plan of care ongoing.
[2025-03-27 06:15] LABS: Albumin Level 3.5 g/dl (3.5-5.0); Chloride 110 mmol/L (98-107); Potassium 4.2 mmoL/L (3.5-5.1); Sodium 135 mmol/L (136-145)
[2025-03-27 06:18] LABS: Alanine Aminotransferase 26 U/L (12-78); Albumin/Globulin Ratio 1.5 (1.1-1.8); Alkaline Phosphatase 67 U/L (38-126); Anion Gap 9.2 mEq/L (5-15); Aspartate Amino Transferase 24 U/L (14-36); Blood Urea Nitrogen 27 mg/dl (7-17); Calcium 8.6 mg/dl (8.4-10.2); Carbon Dioxide 20 mmol/L (22.0-30.0); Creatinine Clearance Estimated 108 mL/min (50-200); Estimated Glomerular Filt Rate 73 ml/min (>60); GFR (African American) 89 ML/MIN (>60); Globulin 2.4 g/dL (1.3-3.2); Glucose 139 mg/dl (74-100); Magnesium 2.3 mg/dl (1.6-2.3); Total Protein,Serum 5.9 g/dl (6.3-8.2)
[2025-03-27 06:19] LABS: Bilirubin,Total 0.1 mg/dl (0.2-1.3)
[2025-03-27 06:25] LABS: C-Reactive Protein 73.2 mg/L (0-4)
[2025-03-27 06:26] LABS: Basophils % 0.1 % (0.1-2.0); Eosinophils % 0.1 % (0.1-12.0); Hemoglobin 9.2 g/dL (12.2-16.2); Immature Granulocytes # 0.05 10^3uL; Immature Granulocytes % 0.6 %; Lymphocytes # 0.8 K/mm3 (0.7-4.5); Lymphocytes % 8.8 % (10-50); Mean Corpuscular HGB Conc 31.7 g/dL (31.8-35.4); Mean Corpuscular Hemoglobin 30.8 pg (27.0-31.2); Mean Platelet Volume 11.1 fl (7.4-10.4); Monocytes # 0.5 K/mm3 (0.1-1.0); Monocytes % 5.5 % (1.7-9.3); Neutrophils # 7.7 K/mm3 (1.8-7.8); Neutrophils % 84.9 % (37.0-80.0); Nucleated Red Blood Cells # 0 10^3/uL; Nucleated Red Blood Cells % 0 %; Platelet Count 180 K/mm3 (142-424); Red Blood Count 2.99 M/mm3 (4.20-5.40); Red Cell Distribution Width 11.9 % (11.5-17.5); Red Cell Distribution Width-SD 42.5 fL
[2025-03-27] MEDS: CEFEPIME HCL 2 GM in 0.9 % SODIUM CHLORIDE 100 ML IV (06:49)
--- NOTE | 2025-03-27 07:13 | EXP.ORTH.PN ---
Subjective *Date: 03/27/25 *Time: 13:03 Interval history: 03/27/25: Patient resting in bed POD#1, S/P SX. 03/26/2025- Right second metatarsal partial resection, Right foot incision and drainage, Right foot wide excisional full-thickness debridement, Right second toe amputation, Application of intramedullary drug delivery system (Cerament G). Ortho Exam (Inpt) Vital signs and Labs for Last 24 Hours: Temp Pulse Resp BP Pulse Ox O2 Del Method 97.5 F L 68 16 108/55 L 98 Room Air 03/27/25 04:00 03/27/25 04:00 03/27/25 04:00 03/27/25 04:00 03/27/25 04:00 03/27/25 06:13 Laboratory Results - last 24 hr 03/26/25 05:21: ESR 128 H, Hemoglobin A1c 6.9 H, TSH 4.10 03/26/25 10:57: POC Glucose 180 H 03/26/25 15:53: POC Glucose 265 H 03/27/25 05:17: WBC 9.0, RBC 2.99 L, Hgb 9.2 L, Hct 29.0 L, MCV 97.0, MCH 30.8, MCHC 31.7 L, RDW 11.9, Plt Count 180, MPV 11.1 H, Neut % (Auto) 84.9 H, Lymph % (Auto) 8.8 L, [place] % (Auto) 5.5, Eos % (Auto) 0.1, Baso % (Auto) 0.1, Neut # (Auto) 7.7, Lymph # (Auto) 0.8, [place] # (Auto) 0.5, Eos # (Auto) 0.0, Baso # (Auto) 0.0, Sodium 135 L, Potassium 4.2, Chloride 110 H, Carbon Dioxide 20 L, Anion Gap 9.2, BUN 27 H D, Creatinine 0.80, Estimated Creat Clear 108, Estimated GFR 73, Est GFR ( Amer) 89, Glucose 139 H, Calcium 8.6, Magnesium 2.3, Total Bilirubin 0.1 L, AST 24, ALT 26, Alkaline Phosphatase 67, C-Reactive Protein 73.2 H D, Total Protein 5.9 L, Albumin 3.5, Globulin 2.4, Albumin/Globulin Ratio 1.5 I & O for Labs for Last 24 Hours: Intake & Output 03/24/25 03/25/25 03/26/25 03/27/25 23:59 23:59 23:59 23:59 Intake Total 1150 / 1150 2580 / 2580 570 / 570 Output Total 0 / 0 0 / 0 0 / 0 Balance 1150 / 1150 2580 / 2580 570 / 570 Weight 195 lb 3 oz 195 lb 2.874 oz 200 lb 14.4 oz Microbiology Reports for the Last 24 Hours: Microbiology 03/26/25 10:00 Foot,Right Gram Stain - Final 03/25/25 11:51 Blood Blood Culture - Preliminary NO GROWTH AFTER 24 HOURS 03/25/25 11:08 Blood Blood Culture - Preliminary NO GROWTH AFTER 24 HOURS 03/25/25 12:27 Foot,Right - Abscess Gram Stain - Final 03/25/25 12:27 Foot,Right - Abscess Wound Culture - Preliminary Constitutional: Present no acute distress and cooperative Head: Present normocephalic Eyes: Present as per HPI Neck: Present trachea midline Respiratory: Present normal respiratory effort Cardiac: Present pedal pulses present Rectal (female): Present deferred (female): Present deferred Extremities: Present normal capillary refill and edema (R foot DFU; improving ) Ankle: bilateral: normal inspection Feet/Toes: right: swelling, right: tenderness and right: wound (sx.03/26/25- Right second metatarsal partial resection Right foot incision and drainage Right foot wide excisional full-thickness debridement Right second toe amputation Application of intramedullary drug delivery system (Cerament G)) and bilateral: hammer toe Assessment and Plan *Assessment and plan (1) Cellulitis: Status: Acute Qualifiers: Laterality: right Site of cellulitis: extremity Site of cellulitis of extremity: lower extremity Qualified Code(s): L03.115 - Cellulitis of right lower limb Category: Medical Code(s): L03.90 - Cellulitis, unspecified (2) Diabetic ulcer of foot associated with diabetes mellitus due to underlying condition, with fat layer exposed: Problem Comment: Right sub 2nd DFU Status: Acute Qualifiers: Diabetic foot ulcer location: unspecified part of foot Laterality: right Qualified Code(s): E08.621 - Diabetes mellitus due to underlying condition with foot ulcer; L97.512 - Non-pressure chronic ulcer of other part of right foot with fat layer exposed Category: Medical Code(s): E08.621 - Diabetes mellitus due to underlying condition with foot ulcer; L97.502 - Non-pressure chronic ulcer of other part of unspecified foot with fat layer exposed (3) Acquired hammertoe of right foot: Status: Acute Category: Medical Code(s): M20.41 - Other hammer toe(s) (acquired), right foot (4) Diabetic ulcer of toe of right foot: Status: Acute Qualifiers: Diabetes mellitus type: type 2 Non-pressure ulcer stage: with fat layer exposed Qualified Code(s): E11.621 - Type 2 diabetes mellitus with foot ulcer; L97.512 - Non-pressure chronic ulcer of other part of right foot with fat layer exposed Category: Medical Code(s): E11.621 - Type 2 diabetes mellitus with foot ulcer; L97.519 - Non-pressure chronic ulcer of other part of right foot with unspecified severity (5) Cellulitis of third toe, right: Status: Acute Category: Medical Code(s): L03.031 - Cellulitis of right toe (6) Infection of toe: Status: Acute Category: Medical Code(s): L08.9 - Local infection of the skin and subcutaneous tissue, unspecified (7) Incurvated nail: Status: Acute Category: Medical Code(s): L60.8 - Other nail disorders (8) Foot pain: Status: Acute Qualifiers: Laterality: bilateral Qualified Code(s): M79.671 - Pain in right foot; M79.672 - Pain in left foot Category: Medical Code(s): M79.673 - Pain in unspecified foot Plan 03/27/25: Right sub 2nd (ball of foot) DFU, cellulitis: Reviewed Right foot CT Scan wo con, 03/25/25: FINDINGS: Bones/joints: No acute fracture or malalignment. Single screw fusion of the 2nd PIP joint. Similar chronic erosion of the 2nd metatarsal head. No specific evidence to suggest acute osteomyelitis. Soft tissues: Soft tissue ulceration involving the plantar aspect of the forefoot with surrounding subcutaneous edema. No obvious abscess, though evaluation is limited by noncontrast technique. IMPRESSION: 1. No specific evidence to suggest acute osteomyelitis. 2. Soft tissue ulceration involving the plantar aspect of the forefoot with surrounding subcutaneous edema. -CT scan right foot. Axial series 3, image [id number], there is a definitive area of phlegmon or possible abscess noted to the subsecond and third metatarsal region. Plantar foot opening correlates with DFU site. Retained second PIPJ hammertoe. -03/25/25: ABIs: ABIs right PT 1.28, DP 1.10, TBI 0.83. ABIs left PT 1.24, DP 0.96, TBI 0.83. Adequate flow to heal surgery. Labs 03/25/2025: WBC 10.7, neutrophils 8.8, ESR 117, glucose 199, CRP 186.5 03/26/2025: WBC 7.6, CRP 149.5, ESR 128 03/27/2025: WBC 9.0, glucose 139, CRP 73.2 POD#1, Sx. 03/26/25; Right second metatarsal partial resection,Right foot incision and drainage, Right foot wide excisional full-thickness debridement, Right, second toe amputation, Application of intramedullary drug delivery system (Cerament G) Plan: Patient is to maintain dressing clean dry and intact. Continue IV antibiotics per Hospitalist team. Strict non weight bearing to the right foot in short fracture boot with walker, rolling knee scooter. Podiatry dressing change today Dressing changes daily:betadine soaked gauze, kerlix, tripp wrap Specimens:: Pending Micro: Right foot WCx Right 2nd toe bone/hardware culture Right 2nd metatarsal bone culture Path: Right 2nd toe bone Right 2nd metatarsal bone Right 2nd metatarsal bone proximal margin All order and recommendations per Dr. Weathers
[2025-03-27 07:23] LABS: Erythrocyte Sedimentation Rate > 140 mm/hr (0-30)
[2025-03-27 07:29] VITALS: BP 112/53; PULSE 70; RESP 17; TEMP 36.5; O2SAT 98
[2025-03-27] MEDS: EMPAGLIFLOZIN 10MG TABLET 10 MG PO (08:24)
[2025-03-27] MEDS: ASPIRIN 81MG CHEWABLE TABLET 81 MG PO (08:24)
[2025-03-27] MEDS: IRBESARTAN 75MG TABLET 37.5 MG PO (08:24)
[2025-03-27] MEDS: METFORMIN 500MG TABLET 500 MG PO (08:24)
[2025-03-27] MEDS: VALACYCLOVIR 500 MG 500 EACH PO (08:25)
[2025-03-27] MEDS: CLOPIDOGREL 75MG TAB 75 MG PO (08:26)
[2025-03-27] MEDS: GABAPENTIN 400MG CAPSULE 400 MG PO ×2 (08:27→12:23)
--- NOTE | 2025-03-27 09:23 | EXP.DC.SUM ---
General Admission date:: 03/25/25 Discharge date: 03/27/25 HPI HPI HPI: Ms. Shepherd is a 59-year-old female with diabetes. She has had a wound on her right foot for some time. Has been following with podiatry service as an outpatient. History of right subsecond to third metatarsal diabetic foot ulcer previously completely healed. Has had a history of surgery at that site along with skin grafting prior to its healing. Over the past month however, she has had a reinjury to the plantar surface of her foot with development of increased redness and signs of infection over the past 48 hours. Presents to the ER today with finding of new diabetic foot ulcer on the plantar surface of her right foot. States that she has had chills and sweats for the past 2 days. Increased swelling of the right foot on the plantar surface below her second toe. There are some streaking up the top of her right foot that is occurred over the past 24 hours per her report. Denies any nausea or vomiting. Denies any shortness of breath or confusion. Workup in the ER with white count of 10.7, ESR elevated at 117. CRP of 186. CT obtained today in the ED with no acute fracture. No specific evidence to suggest acute osteomyelitis but does have concern for abscess and diabetic foot ulcer. Podiatry consulted. Planning to take to the OR in the morning for debridement. Medicine consulted for admission and further management. Initiated on broad-spectrum antibiotics with vancomycin, cefepime, Flagyl. Patient is comfortable and hemodynamically stable at time of evaluation after arriving to the floor. On room air. Afebrile. Daughter at bedside helps supplement Hospital Course Hospital Course Hospital Course: 59-year-old female with diabetes and neuropathy in her feet. Presents with worsening signs of infection in her foot concerning for diabetic foot ulcer with infection. Discussed case with ER physician, request admission for further management. I agreed to admit for further care. Initiated on broad-spectrum antibiotics. Podiatry consulted. Surgical debridement performed 03/26. Tolerated well. Continue oral antibiotics to complete treatment for total of 2 weeks. Stable discharge home with outpatient follow-up. Problems addressed as follows: Diabetic ulcer of right foot complicated by cellulitis -Diabetic foot wound present on admission. Initiated on broad-spectrum antibiotics with vancomycin, cefepime, Flagyl. Responded well with improvement in inflammatory markers. White count 9, ESR stable but elevated. CRP improving 73 on day of discharge. Kidney function normal BUN 27, creatinine 0.8. Podiatry consulted. Taken for surgery 03/26. Second metatarsal resection performed along with amputation of second toe. Will be nonweightbearing for the next 3 to 4 weeks. PT evaluated and counseled on mobility. Patient has a rolling knee scooter and mobility devices at home. Will proceed with outpatient therapy. Continue broad-spectrum antibiotics for total of 2 weeks. Transition to levofloxacin 750 mg daily and Zyvox 600 mg twice daily for 10 more days of therapy. Diabetes: A1c historically well-controlled less than 7, repeat 6.9. On oral antihyperglycemics at this time. Continue empagliflozin 10 mg daily, metformin extended release 500 mg daily, held Mounjaro in the inpatient setting. Treated with sliding scale insulin during admission. Morning glucose 139 on day of discharge. Hypertension CAD - continue losartan 25 mg daily, bisoprolol 5 mg daily. Resume aspirin 81 mg daily and Plavix 75 mg daily. Resume Crestor per home regimen Total time spent on discharge 36 minutes in counseling, documentation, chart review, and direct care with patient. Exam Data for Last 24 hours Vital signs and Labs for Last 24 Hours: Temp Pulse Resp BP Pulse Ox O2 Del Method 97.7 F 70 17 112/53 L 98 Room Air 03/27/25 07:29 03/27/25 07:29 03/27/25 07:29 03/27/25 07:29 03/27/25 07:29 03/27/25 07:29 Laboratory Results - last 24 hr 03/26/25 05:21: Hemoglobin A1c 6.9 H 03/26/25 10:57: POC Glucose 180 H 03/26/25 15:53: POC Glucose 265 H 03/27/25 05:17: WBC 9.0, RBC 2.99 L, Hgb 9.2 L, Hct 29.0 L, MCV 97.0, MCH 30.8, MCHC 31.7 L, RDW 11.9, Plt Count 180, MPV 11.1 H, Neut % (Auto) 84.9 H, Lymph % (Auto) 8.8 L, Beadle % (Auto) 5.5, Eos % (Auto) 0.1, Baso % (Auto) 0.1, Neut # (Auto) 7.7, Lymph # (Auto) 0.8, Beadle # (Auto) 0.5, Eos # (Auto) 0.0, Baso # (Auto) 0.0, ESR > 140 H, Sodium 135 L, Potassium 4.2, Chloride 110 H, Carbon Dioxide 20 L, Anion Gap 9.2, BUN 27 H D, Creatinine 0.80, Estimated Creat Clear 108, Estimated GFR 73, Est GFR ( Amer) 89, Glucose 139 H, Calcium 8.6, Magnesium 2.3, Total Bilirubin 0.1 L, AST 24, ALT 26, Alkaline Phosphatase 67, C-Reactive Protein 73.2 H D, Total Protein 5.9 L, Albumin 3.5, Globulin 2.4, Albumin/Globulin Ratio 1.5 I & O for Last 24 hours: Intake & Output 03/24/25 03/25/25 03/26/25 03/27/25 23:59 23:59 23:59 23:59 Intake Total 1150 / 1900 2580 / 3150 810 / 810 Output Total 0 / 0 0 / 0 0 / 0 Balance 1150 / 1900 2580 / 3150 810 / 810 Weight 88.536 kg 88.532 kg 91.127 kg Microbiology Reports for the Last 24 Hours: Microbiology 03/26/25 10:00 Foot,Right Gram Stain - Final 03/25/25 11:51 Blood Blood Culture - Preliminary NO GROWTH AFTER 24 HOURS 03/25/25 11:08 Blood Blood Culture - Preliminary NO GROWTH AFTER 24 HOURS 03/25/25 12:27 Foot,Right - Abscess Gram Stain - Final 03/25/25 12:27 Foot,Right - Abscess Wound Culture - Preliminary Constitutional Constitutional: no acute distress and cooperative *Routine HEENT Exam Head: Present normocephalic Eye: Present EOMI and PERRL ENT: Present mucous membranes moist *Routine Neck Exam Neck: Present supple; Absent lymphadenopathy *Routine Respiratory Exam Respiratory: Present CTA bilaterally; Absent rhonchi or wheezes *Routine Cardiovascular Exam Cardiovascular: Present RRR *Routine Abdominal Exam Abdominal: Present soft and normoactive bowel sounds; Absent tenderness *Routine Rectal Exam Patient deferred: visual exam *Routine Exam Patient deferred: external exam *Routine Extremities Exam Extremities: Absent cyanosis, clubbing or edema Comments: Right foot in postop bandage. Status post amputation; no warmth or redness *Routine Skin Exam Skin: Present intact and warm; Absent rash *Routine Neurological Exam Neurological: Present alert, oriented X3, sensory deficit (decreased sensation in feet) and moving all extremities; Absent altered mental status Results Data Completed and Pending Labs on day of discharge: Labs from last 24 hours 03/27/25 03/26/25 03/26/25 05:17 15:53 10:57 WBC 9.0 RBC 2.99 L Hgb 9.2 L Hct 29.0 L MCV 97.0 MCH 30.8 MCHC 31.7 L RDW 11.9 Plt Count 180 MPV 11.1 H Neut % (Auto) 84.9 H Lymph % (Auto) 8.8 L Beadle % (Auto) 5.5 Eos % (Auto) 0.1 Baso % (Auto) 0.1 Neut # (Auto) 7.7 Lymph # (Auto) 0.8 Beadle # (Auto) 0.5 Eos # (Auto) 0.0 Baso # (Auto) 0.0 ESR > 140 H Sodium 135 L Potassium 4.2 Chloride 110 H Carbon Dioxide 20 L Anion Gap 9.2 BUN 27 H D Creatinine 0.80 Estimated Creat Clear 108 Estimated GFR 73 Est GFR ( Amer) 89 Glucose 139 H POC Glucose 265 H 180 H Hemoglobin A1c Calcium 8.6 Magnesium 2.3 Total Bilirubin 0.1 L AST 24 ALT 26 Alkaline Phosphatase 67 C-Reactive Protein 73.2 H D Total Protein 5.9 L Albumin 3.5 Globulin 2.4 Albumin/Globulin Ratio 1.5 03/26/25 05:21 WBC RBC Hgb Hct MCV MCH MCHC RDW Plt Count MPV Neut % (Auto) Lymph % (Auto) Beadle % (Auto) Eos % (Auto) Baso % (Auto) Neut # (Auto) Lymph # (Auto) Beadle # (Auto) Eos # (Auto) Baso # (Auto) ESR Sodium Potassium Chloride Carbon Dioxide Anion Gap BUN Creatinine Estimated Creat Clear Estimated GFR Est GFR ( Amer) Glucose POC Glucose Hemoglobin A1c 6.9 H Calcium Magnesium Total Bilirubin AST ALT Alkaline Phosphatase C-Reactive Protein Total Protein Albumin Globulin Albumin/Globulin Ratio Preliminary micro results at discharge 03/25/25 11:51 Blood Culture - Preliminary Blood NO GROWTH AFTER 24 HOURS 03/25/25 11:08 Blood Culture - Preliminary Blood NO GROWTH AFTER 24 HOURS 03/25/25 12:27 Wound Culture - Preliminary Foot,Right - Abscess DS: Diagnosis Discharge Diagnosis (1) Cellulitis: Status: Acute Code(s): L03.90 - Cellulitis, unspecified Qualifiers: Laterality: right Site of cellulitis: extremity Site of cellulitis of extremity: lower extremity Qualified Code(s): L03.115 - Cellulitis of right lower limb (2) Diabetic ulcer of foot associated with diabetes mellitus due to underlying condition, with fat layer exposed: Status: Acute Code(s): E08.621 - Diabetes mellitus due to underlying condition with foot ulcer; L97.502 - Non-pressure chronic ulcer of other part of unspecified foot with fat layer exposed Qualifiers: Diabetic foot ulcer location: unspecified part of foot Laterality: right Qualified Code(s): E08.621 - Diabetes mellitus due to underlying condition with foot ulcer; L97.512 - Non-pressure chronic ulcer of other part of right foot with fat layer exposed Problem details: Right sub 2nd DFU (3) Acquired hammertoe of right foot: Status: Acute Code(s): M20.41 - Other hammer toe(s) (acquired), right foot (4) Diabetic ulcer of toe of right foot: Status: Acute Code(s): E11.621 - Type 2 diabetes mellitus with foot ulcer; L97.519 - Non-pressure chronic ulcer of other part of right foot with unspecified severity Qualifiers: Diabetes mellitus type: type 2 Non-pressure ulcer stage: with fat layer exposed Qualified Code(s): E11.621 - Type 2 diabetes mellitus with foot ulcer; L97.512 - Non-pressure chronic ulcer of other part of right foot with fat layer exposed (5) Cellulitis of third toe, right: Status: Acute Code(s): L03.031 - Cellulitis of right toe (6) Infection of toe: Status: Acute Code(s): L08.9 - Local infection of the skin and subcutaneous tissue, unspecified (7) Incurvated nail: Status: Acute Code(s): L60.8 - Other nail disorders (8) Foot pain: Status: Acute Code(s): M79.673 - Pain in unspecified foot Qualifiers: Laterality: bilateral Qualified Code(s): M79.671 - Pain in right foot; M79.672 - Pain in left foot Meds Home Medications and Allergies Home Medications ?Medication ?Instructions ?Recorded ?Confirmed ?Type valacyclovir 500 mg tablet 500 mg PO DAILY cold sores 09/08/20 04/01/25 History aspirin 81 mg chewable tablet 81 mg PO DAILY #30 tabs 08/07/23 04/01/25 Rx empagliflozin 10 mg tablet 10 mg PO DAILY #30 tabs 08/07/23 04/01/25 Rx (Jardiance) blood-glucose sensor (Dexcom G7 #1 ea 08/22/24 04/01/25 History Sensor device) gabapentin 400 mg capsule 400 mg PO TID 08/22/24 04/01/25 History metformin 500 mg tablet,extended 500 mg PO DAILY 08/22/24 04/01/25 History release 24 hr diclofenac sodium 50 mg 50 mg PO BIDP PRN Mild Pain (Scale 11/04/24 04/01/25 History tablet,delayed release Score 1-4) bisoprolol fumarate 5 mg tablet 5 mg PO DAILY #90 tabs 02/17/25 04/01/25 Rx clobetasol 0.05 % topical cream 1 applic topical BID 03/25/25 04/01/25 History clopidogrel 75 mg tablet 75 mg PO DAILY 03/25/25 04/01/25 History fluticasone propionate 50 1 spray intranasal DAILY 03/25/25 04/01/25 History mcg/actuation nasal spray,suspension losartan 25 mg tablet 25 mg PO DAILY 03/25/25 04/01/25 History rosuvastatin 10 mg tablet 10 mg PO HS 03/25/25 04/01/25 History tirzepatide 5 mg/0.5 mL 5 mg SQ WEEKLY 03/25/25 04/01/25 History subcutaneous pen injector (Mounjaro) hydrocodone 7.5 mg-acetaminophen 1 tab PO Q6HP PRN Moderate Pain 03/27/25 04/01/25 Rx 325 mg tablet (4-6) #11 tabs levofloxacin 750 mg tablet 750 mg PO DAILY #10 tabs 03/27/25 04/01/25 Rx linezolid 600 mg tablet (Zyvox) 600 mg PO BID 10 days #20 tabs 03/27/25 04/01/25 Rx New Prescriptions to Start Prescriptions: hydrocodone-acetaminophen Mariano Castañeda levofloxacin Mariano Castañeda linezolid [Zyvox] Mariano Castañeda Allergies Allergy/AdvReac Type Severity Reaction Status Date / Time lisinopril AdvReac cough Verified 03/24/25 08:27 Discharge Plan Disposition Patient Disposition: Home, Self-Care Condition: Fair Discharge Order Discharge Orders: Discharge Order (Routine); Ordered 03/27/25 Ordered By: Mariano Castañeda Follow up Plan Follow up with: Amalia Walter APRN [Primary Care Provider] - 04/14/25 10:00 am Gay Weathers DPM [Staff Physician] - 04/03/25 9:45 am Prescriptions/Medication Reconciliation: New linezolid [Zyvox] 600 mg tablet 600 mg PO BID 10 Days Qty: 20 0RF levofloxacin 750 mg tablet 750 mg PO DAILY Qty: 10 0RF hydrocodone-acetaminophen 7.5-325 mg Tablet 1 tab PO Q6HP PRN (Reason: Moderate Pain (4-6)) Qty: 11 0RF Continued aspirin 81 mg tablet,chewable 81 mg PO DAILY Qty: 30 6RF Jardiance 10 mg tablet 10 mg PO DAILY Qty: 30 2RF gabapentin 400 mg capsule 400 mg PO TID Patient Comments: TAKE 1 CAPSULE BY MOUTH THREE TIMES DAILY metformin 500 mg tablet extended release 24 hr 500 mg PO DAILY Patient Comments: TAKE 1 TABLET BY MOUTH ONCE DAILY (DME) Dexcom G7 Sensor Device See Rx Instructions .ROUTE .MEDSUPPLY Qty: 1 Patient Comments: USE DIRECTED Rx Instructions: As directed diclofenac sodium 50 mg tablet,delayed release (DR/EC) 50 mg PO BIDP PRN (Reason: Mild Pain (Scale Score 1-4)) bisoprolol fumarate 5 mg tablet 5 mg PO DAILY Qty: 90 1RF fluticasone propionate 50 mcg/actuation spray,suspension 1 spray INTRANASAL DAILY Patient Comments: USE 1 SPRAY(S) IN EACH NOSTRIL ONCE DAILY Mounjaro 5 mg/0.5 mL pen injector 5 mg SQ WEEKLY clobetasol 0.05 % cream 1 applic topical BID clopidogrel 75 mg tablet 75 mg PO DAILY losartan 25 mg tablet 25 mg PO DAILY rosuvastatin 10 mg tablet 10 mg PO HS valacyclovir 500 MG tablet 500 mg PO DAILY Discontinued doxycycline hyclate 100 mg tablet 100 mg PO BID Qty: 20 0RF Problem Reconciliation Problems Reviewed?: Yes Patient Discharge Instructions ACTIVITY: Continue current activity DIET: continue same diet Patient Instructions: DI for Cellulitis -- Adult, DI for Debridement of a Wound, Infection, or Burn, DI for Diabetic Foot Ulcer, DI for Surgical Site Infection, Stop Light Infection Print Language: Algerian Providers Primary Care Provider: Amalia Walter Admit Provider: Mariano Castañeda Attending Provider: Mariano Castañeda
--- NOTE | 2025-03-27 11:08 | HMH.PTEV ---
Physical Therapy Evaluation Rehab PT IP Evaluation Start: 03/26/25 10:53 Freq: ONCE Status: Active Protocol: Document 03/27/25 08:35 MADHAV (Rec: 03/27/25 10:57 MADHAV [id number]) Subjective/History History History Ms. Shepherd is a 59-year-old female with diabetes. Pt is s/ p Right second metatarsal partial resection and R foot I &D 03/26/25. Has had a history of surgery at that site along with skin grafting prior to its healing. Pt is NWB to R LE in short fx boot. Subjective Subjective Pt currently lives at home alone, but daughter is able to stay for a few weeks to assist. Home has 1 [address], no BSC but close bathroom with a walk-in shower with shower chair. Pt is independent with all ADLs, driving, and mobility at baseline. Pt has RW and knee scooter at home available for use. [facility] How much help from another person do you currently need... Turning from your back to your side None while in a flat bed without using bedrails? Moving from lying on back to sitting on None the side of a flat bed without using bedrails? Moving to and from a bed to a chair ( None including a wheelchair)? Standing up from a chair using your arms None ? (e.g., wheelchair, bedside chair) Walking in hospital room? None Climbing 3-5 steps with a railing? None Mobility Score 24 Mobility Level [facility] Mobility Calculator Mobility 8 Walk 250 feet or more Rehab PT IP Eval Objective Appearance Patient Behavior Appropriate,Cooperative Patient Orientation Person,Place Difficulty following instructions none Speech Pattern Clear,Appropriate Ambulation Patient Able to Ambulate Yes Ambulation Observation IP General Gait Pattern Observation Antalgic Gait,Decrease Weight Bear (R) Ambulation Distance (feet) 15 Ambulation Assistive Device Rolling Walker Ambulation Ability Supervision/Stand by Balance Ability to Arise Able, uses arms to help Sitting Balance Steady, safe Standing Balance Steady, wide stance Dynamic Sitting Balance Ability Normal Dynamic Standing Balance Ability Normal Transfers Bed Transfer Ability Independent Sit to Stand Bed Transfer Ability Independent Rehab PT IP prob,goals,plan Problems Date of Evaluation: 03/27/25 Rehab Potential Rehab Potential Innapropriate for Skilled Therapy Discharge Plan PT Discharge Plan Patient is currently most appropriate to return home once medically stable for d/c with assistance from daughter as needed. Pt not appropriate for skilled acute care PT d/t mobility being SUP/Mod I. Pt was able to maintain NWBing status without VCing. Recommend home health therapy to improve LE and trunk strength and balance to maintain R LE NWB status to improve ability to transfer and ambulate. Eval Complexity Eval Charge Codes 36505 - High Complexity PHYSICIAN CERTIFICATION: I certify the specified therapy services for Zehra Shepherd are required, authorized, and reviewed every 30 days.
[2025-03-27 11:28] VITALS: BP 117/64; PULSE 66; RESP 18; TEMP 36.6; O2SAT 97
--- NOTE | 2025-03-27 11:49 | CARE MANAGER ---
PT recommended HH services, however, patient declined. She stated that she feels she is able to ambulate on her own and has her daughter staying with her for a while.
[2025-03-27] MEDS: metroNIDAZOLE 500 MG TABLET PO (12:22)
--- NOTE | 2025-03-28 10:32 | SW/DCPLANNER ---
Spoke with patient on the phone. Patient stated that she is doing well. Patient stated that she was able to get her medicine picked up from clinic pharmacy. Patient stated that she is aware of her upcoming appointments. Patient stated that she has no concerns or questions at this time. Cheo Pedersen
== END 2025-03-27 12:44 | disposition home or self-care (01) | DRG 617 ==
LOC: ER 10:30 → 2ND 12:18
PROVIDERS: Podiatrist; Admitting Provider Internal Medicine Adolescent Medicine; Emergency Provider Emergency Medicine; PCP Nurse Practitioner Family; Visit Provider Internal Medicine Adolescent Medicine
PROC: 0JBQ0ZZ Excision of Right Foot Subcutaneous Tissue and Fascia, Open Approach (ICD-10-PCS; principal; 2025-03-26 08:45)
DX: E11.621 Type 2 diabetes mellitus with foot ulcer (principal); L02.611 Cutaneous abscess of right foot; L97.412 Non-pressure chronic ulcer of right heel and midfoot with fat layer exposed; L03.115 Cellulitis of right lower limb; L97.516 Non-pressure chronic ulcer of other part of right foot with bone involvement without evidence of necrosis; Z16.24 Resistance to multiple antibiotics; K21.9 Gastro-esophageal reflux disease without esophagitis; E78.5 Hyperlipidemia, unspecified; M20.41 Other hammer toe(s) (acquired), right foot; G47.33 Obstructive sleep apnea (adult) (pediatric); I25.10 Atherosclerotic heart disease of native coronary artery without angina pectoris; I10 Essential (primary) hypertension; Z87.891 Personal history of nicotine dependence; C44.90 Unspecified malignant neoplasm of skin, unspecified; Z95.5 Presence of coronary angioplasty implant and graft; Z90.49 Acquired absence of other specified parts of digestive tract; Z96.659 Presence of unspecified artificial knee joint; Z82.49 Family history of ischemic heart disease and other diseases of the circulatory system; Z79.82 Long term (current) use of aspirin; Z79.84 Long term (current) use of oral hypoglycemic drugs; Z79.1 Long term (current) use of non-steroidal anti-inflammatories (NSAID); Z79.2 Long term (current) use of antibiotics; Z79.899 Other long term (current) drug therapy; Z79.85 Long-term (current) use of injectable non-insulin antidiabetic drugs; Z88.8 Allergy status to other drugs, medicaments and biological substances; L60.8 Other nail disorders; E11.40 Type 2 diabetes mellitus with diabetic neuropathy, unspecified; L03.031 Cellulitis of right toe; Z96.7 Presence of other bone and tendon implants
CPT/HCPCS: 36415; 73630; 73700; 80053; 82962; 83036; 83605; 83735; 84443; 85025; 85651; 86140; 86803; 87040; 87070; 87077; 87186; 87205; 87389; 88304; 93005; 93923; 97163; 99285; C1602; C9144; J1100; J1580; J2250; J2405; J3010; J3372; J7120

== ENCOUNTER 2025-04-10 09:30 | Outpatient (CLI) | payer BC, SELFPAY ==
--- OUTSIDE RECORDS SUMMARY | 2025-04-11 13:21 | XMS_ITS | Data Portability ---
Author Organization [facility] ADMIN Address [address] [place] [address] Care Team Providers Care Lease Attendant Name Role Phone AMALIA MCCORD Referring Provider [phone] AMALIA MCCORD Primary Care Provider [phone] Assessment Encounter Date Assessment Date Assessment LastModified by Organization Details LastModified Time 11/28/2022 11/28/2022 Amalia Karimi APRN, Dear Shona, just want to let you know that I saw Zehra Espino in the off state your request. She is a 57-year-old employee out at [employer] who has had a several month history [...] in punctuate rojas and or spelling, etc. Not available 11/28/2022 11:49:55 01/02/2023 01/02/2023 Ms Espino returns after robotic cholecystectomy. She is doing very well without serous complaints or issues. The wounds are intact without sign of infection. She can return to work in 1 week if she does not lift more than 35 lb. Follow-up in a month as needed [email or web address] Not available 01/02/2023 09:09:29 10/01/2024 10/01/2024 Ms. [...] Modified Time Details Appointments None recorded. Lab hepatitis panel (A+B+C), acute, serum 2023 024 [email or web address] [facility] (Registration ), [address] [place], [address], 5 11:24:16 igg, quantitativ e, serum 2023 024 [facility] (Registration ), [address] [place], [address], 4 15:14:32 mitochondri al Ab, serum 2023 024 [facility] (Registration ), [address] [place], [address], 4 15:14:30 actin smooth muscle Ab, serum 2023 024 [facility] (Registration ), [address] [place], [address], 4 15:14:34 ARNAV (antinuclea r antibodies) screen, serum 2023 [facility] (Registration ), [address], [place], [address], 4 13:13:40 alpha-1-ant itrypsin (aat), QN, serum [address] (Registration ), [address], [place], [address], 5 11:24:16 CBC w/ auto diff 2023 [facility] (Registration ), [address] [facility], [place], [address], 4 07:51:03 PT/INR [address] (Registration ), [address] [place], [address], 5 11:24:16 nonalcoholi c steatohepat itis + fibrosis panel, serum or plasma [address] (Registration ), [address] [facility], [place], [address], 5 11:24:16 alpha-1-ant itrypsin (aat) phenotype, serum [address] (Registration ), [address] [place], [address], 5 11:24:17 CMP, serum or plasma 2023 [facility] (Registration ), [address] [place], [address], 4 08:04:39 hemochromat osis mutation (hfe), blood/tissu e 2023 024 [email or web address] [address] [facility] (Registration ), [address] [facility], [place], [address], 5 11:24:17 Referral general surgeon referral 2021 022 JACKSON Funk MD, [address] [facility], [address], [place], [address], 4 05:01:33 Procedures None recorded. Surgeries None recorded. Imaging US, liver 2023 024 [facility] [place] [facility], [address] [facility], [place], [address], 4 11:59:54 Medication Orders None recorded. Patient TargetsNo targets recorded. Patient Instructions Encounter Date Encounter Id Patient Instructions Last Modified By Organization Details Last Modified Time 10/01/2024 [id number] 6 month f/u [email or web address] Not available 10:52:52 Reason for Referral General Surgeon Referral for Cholelithiasis without obstruction Referring Physician: Johnna Karimi, Family Medicine, Encounter Date: 10/26/2022 Results Created Date Observation Date Name Description Value Unit Range Abnormal Flag Note LastModifiedBy Organization Detail LastModifiedTime 12/13/1912/13/2022 CBC AUTO NO DIFF (HEMO GRAM) WBC 5.7 K/uL 4.0-10 .5 Not Available [facility] ([facility]) [address] [facility], [place], [address], 12/13/2022 16:35:15 12/13/19 23 12/13/2022 CBC AUTO NO DIFF (HEMO GRAM) RBC 4.2 M/mm3 4.2-6. 4 Not Available [facility] ([facility]) [address] [facility], [place], [address], 12/13/2022 16:35:15 01/31/12/13/2022 CBC AUTO NO DIFF (HEMO GRAM) HGB 13.0 gm/dL 12.5-1 6.0 Not Available [facility] ([facility]) [address], [place], [address], 12/13/2022 16:35:15 12/13/19 23 12/13/2022 CBC AUTO NO DIFF (HEMO GRAM) HCT 38.9 % 37.0-4 7.0 Not Available [facility] ([facility]) [address], [place], [address], 12/13/2022 16:35:15 12/13/19 23 12/13/2022 CBC AUTO NO DIFF (HEMO GRAM) MCV 93.5 fL 78-100 Not Available [facility] ([facility]) [address], [place], [address], 12/13/2022 16:35:15 12/13/19 23 12/13/2022 CBC AUTO NO DIFF (HEMO GRAM) MCH 31.3 pg 27-31 high Not Available [facility] ([facility]) [address], [place], [address], 12/13/2022 16:35:15 12/13/19 23 12/13/2022 CBC AUTO NO DIFF (HEMO GRAM) MCHC 33.4 g/dL 32-36 Not Available [facility] ([facility]) [address], [place], [address], 12/13/2022 16:35:15 12/13/19 23 12/13/2022 CBC AUTO NO DIFF (HEMO GRAM) RDW 12.9 % 11.5-1 4.0 Not Available [facility] ([facility]) [address], [place], [address], 12/13/2022 16:35:15 12/13/19 23 12/13/2022 CBC AUTO NO DIFF (HEMO GRAM) platelet count 193 K/uL 150-45 0 Not Available [facility] ([facility]) [address], [place], [address], 12/13/2022 16:35:15 12/13/19 23 12/13/2022 CBC AUTO NO DIFF (HEMO GRAM) manual differential NO Not Available [facility] ([facility]) [address], [place], [address], 12/13/2022 16:35:15 12/13/19 23 12/13/2022 COMP METAB OLIC PANEL sodium 139 mmol/ L 136-14 5 Not Available [facility] ([facility]) [address], [place], [address], 12/13/2022 17:16:34 12/13/19 23 12/13/2022 COMP METAB OLIC PANEL potassium 3.5 mmol/ L 3.6-5. 0 low Not Available [facility] ([facility]) [address], [place], [address], 12/13/2022 17:16:34 12/13/19 23 12/13/2022 COMP METAB OLIC PANEL chloride 102 mmol/ L 98-107 Not Available [facility] ([facility]) [address], [place], [address], 12/13/2022 17:16:34 12/13/19 23 12/13/2022 COMP METAB OLIC PANEL carbon dioxide 31.2 mmol/ L 21.0-3 2.0 Not Available [facility] ([facility]) [address], [place], [address], 12/13/2022 17:16:34 12/13/19 23 12/13/2022 COMP METAB OLIC PANEL anion gap 9.3 Not Available [facility] ([facility]) [address], [place], [address], 12/13/2022 17:16:34 12/13/19 23 12/13/2022 COMP METAB OLIC PANEL glucose 126 mg/dL 70-120 high Not Available [facility] ([facility]) [address], [place], [address], 12/13/2022 17:16:34 12/13/19 23 12/13/2022 COMP METAB OLIC PANEL BUN 25 mg/dL 7-18 high Not Available [facility] ([facility]) [address], [place], [address], 12/13/2022 17:16:34 12/13/19 23 12/13/2022 COMP METAB OLIC PANEL creatinine 1.0 mg/dL 0.6-1. 3 Not Available [facility] ([facility]) [address], [place], [address], 12/13/2022 17:16:34 12/13/19 23 12/13/2022 COMP METAB OLIC PANEL glomerular filtration rate >60 mlper min 60- Not Available [facility] ([facility]) [address], [place], [address], 12/13/2022 17:16:34 12/13/19 23 12/13/2022 COMP METAB OLIC PANEL total protein 6.9 g/dL 6.4-8. 2 Not Available [facility] ([facility]) [address], [place], [address], 12/13/2022 17:16:34 12/13/19 23 12/13/2022 COMP METAB OLIC PANEL albumin 4.1 g/dL 3.4-5. 0 Not Available [facility] ([facility]) [address], [place], [address], 12/13/2022 17:16:34 12/13/19 23 12/13/2022 COMP METAB OLIC PANEL globulin 2.8 Not Available [facility] ([facility]) [address], [place], [address], 12/13/2022 17:16:34 12/13/19 23 12/13/2022 COMP METAB OLIC PANEL alb/glob ratio 1.5 0.7-2 Not Available [facility] ([facility]) [address], [place], [address], 12/13/2022 17:16:34 12/13/19 23 12/13/2022 COMP METAB OLIC PANEL calcium 9.6 mg/dL 8.5-10 .5 Not Available [facility] ([facility]) [address], [place], [address], 12/13/2022 17:16:34 12/13/19 23 12/13/2022 COMP METAB OLIC PANEL bilirubin total 0.30 mg/dL 0.10-1 .00 Not Available [facility] ([facility]) [address] , [place], [address], 12/13/2022 17:16:34 12/13/19 23 12/13/2022 COMP METAB OLIC PANEL AST (SGOT) 31 U/L 0-37 Not Available [facility] ([facility]) [address] , [place], [address], 12/13/2022 17:16:34 12/13/19 23 12/13/2022 COMP METAB OLIC PANEL ALT (SGPT) 47 U/L 0-65 Not Available [facility] ([facility]) [address] , [place], [address], 12/13/2022 17:16:34 12/13/19 23 12/13/2022 COMP METAB OLIC PANEL alk phosphatase 68 U/L 46-116 Not Available [facility] ([facility]) [address] , [place], [address], 12/13/2022 17:16:34 10/02/20 24 10/02/2024 CBC AUTO W DIFF WBC 5.0 K/uL 4.0-10 .5 Not Available [facility] ([facility]) [address] , [place], [address], 10/02/2024 07:51:03 10/02/20 24 10/02/2024 CBC AUTO W DIFF RBC 4.1 M/mm3 4.2-6. 4 low Not Available [facility] ([facility]) [address] , [place], [address], 10/02/2024 07:51:03 10/02/20 24 10/02/2024 CBC AUTO W DIFF HGB 12.7 gm/dL 12.5-1 6.0 Not Available [facility] ([facility]) [address] , [place], [address], 10/02/2024 07:51:03 10/02/20 24 10/02/2024 CBC AUTO W DIFF HCT 39.5 % 37.0-4 7.0 Not Available [facility] ([facility]) [address] , [place], [address], 10/02/2024 07:51:03 10/02/20 24 10/02/2024 CBC AUTO W DIFF MCV 96.3 fL 78-100 Not Available [facility] ([facility]) [address] , [place], [address], 10/02/2024 07:51:03 10/02/20 24 10/02/2024 CBC AUTO W DIFF MCH 31.0 pg 27-31 Not Available [facility] ([facility]) [address] , [place], [address], 10/02/2024 07:51:03 10/02/20 24 10/02/2024 CBC AUTO W DIFF MCHC 32.2 g/dL 32-36 Not Available [facility] ([facility]) [address] , [place], [address], 10/02/2024 07:51:03 10/02/20 24 10/02/2024 CBC AUTO W DIFF RDW 13.0 % 11.5-1 4.0 Not Available [facility] ([facility]) [address], [place], [address], 10/02/2024 07:51:03 10/02/20 24 10/02/2024 CBC AUTO W DIFF platelet count 208 K/uL 150-45 0 Not Available [facility] ([facility]) [address], [place], [address], 10/02/2024 07:51:03 10/02/20 24 10/02/2024 CBC AUTO W DIFF MPV 9.8 fL 6-9.5 high Not Available [facility] ([facility]) [address], [place], [address], 10/02/2024 07:51:03 10/02/20 24 10/02/2024 CBC AUTO W DIFF neutrophil% 59.1 % 43-65 Not Available [facility] ([facility]) [address], [place], [address], 10/02/2024 07:51:03 10/02/20 24 10/02/2024 CBC AUTO W DIFF lymphocyte% 31.1 % 20.5-4 5.5 Not Available [facility] ([facility]) [address], [place], [address], 10/02/2024 07:51:03 10/02/20 24 10/02/2024 CBC AUTO W DIFF monocyte% 7.0 % 5.5-11 .7 Not Available [facility] ([facility]) [address] [place], [address], 10/02/2024 07:51:03 10/02/20 24 10/02/2024 CBC AUTO W DIFF eosinophil% 2.2 % 0.9-2. 9 Not Available [facility] ([facility]) [address] [place], [address], 10/02/2024 07:51:03 10/02/20 24 10/02/2024 CBC AUTO W DIFF basophil% 0.4 % 0.2-1. 0 Not Available [facility] ([facility]) [address] [facility], [place], [address], 10/02/2024 07:51:03 10/02/20 24 10/02/2024 CBC AUTO W DIFF immature granulocytes % 0.2 % 0.0-0. 8 Not Available [facility] ([facility]) [address] [place], [address], 10/02/2024 07:51:03 10/02/20 24 10/02/2024 CBC AUTO W DIFF nucleated red blood cells % 0.0 % Not Available [facility] ([facility]) [address] [place], [address], 10/02/2024 07:51:03 10/02/20 24 10/02/2024 CBC AUTO W DIFF neutrophil# 3.0 K/uL 2.2-4. 8 Not Available [facility] ([facility]) [address] [place], [address], 10/02/2024 07:51:03 10/02/20 24 10/02/2024 CBC AUTO W DIFF lymphocyte# 1.6 cell/ mcL 1.3-2. 9 Not Available [facility] ([facility]) [address] [place], [address], 10/02/2024 07:51:03 10/02/20 24 10/02/2024 CBC AUTO W DIFF monocyte# 0.4 cell/ mcL 0.3-0. 8 Not Available [facility] ([facility]) [address] [place], [address], 10/02/2024 07:51:03 10/02/20 24 10/02/2024 CBC AUTO W DIFF eosinophil# 0.1 cell/ mcL 0-0.2 Not Available [facility] ([facility]) [address] , [place], [address], 10/02/2024 07:51:03 10/02/20 24 10/02/2024 CBC AUTO W DIFF basophil# 0.0 cell/ mcL 0.0-1. 0 Not Available [facility] ([facility]) [address] , [place], [address], 10/02/2024 07:51:03 10/02/20 24 10/02/2024 CBC AUTO W DIFF immature gramulocytes # 0.01 K/uL Not Available [facility] ([facility]) [address] , [place], [address], 10/02/2024 07:51:03 10/02/20 24 10/02/2024 CBC AUTO W DIFF nucleated red blood cells # 0.00 K/uL Not Available [facility] ([facility]) [address] , [place], [address], 10/02/2024 07:51:03 10/02/20 24 10/02/2024 CBC AUTO W DIFF manual differential NO Not Available [facility] ([facility]) [address] , [place], [address], 10/02/2024 07:51:03 10/02/20 24 10/02/2024 COMP METAB OLIC PANEL sodium 140 mmol/ L 136-14 5 Not Available [facility] ([facility]) [address] , [place], [address], 10/02/2024 08:04:39 10/02/20 24 10/02/2024 COMP METAB OLIC PANEL potassium 4.1 mmol/ L 3.6-5. 0 Not Available [facility] ([facility]) [address] , [place], [address], 10/02/2024 08:04:39 10/02/20 24 10/02/2024 COMP METAB OLIC PANEL chloride 102 mmol/ L 98-107 Not Available [facility] ([facility]) [address] , [place], [address], 10/02/2024 08:04:39 10/02/20 24 10/02/2024 COMP METAB OLIC PANEL carbon dioxide 26.6 mmol/ L 21.0-3 2.0 Not Available [facility] ([facility]) [address] , [place], [address], 10/02/2024 08:04:39 10/02/20 24 10/02/2024 COMP METAB OLIC PANEL anion gap 15.5 Not Available [facility] ([facility]) [address] , [place], [address], 10/02/2024 08:04:39 10/02/20 24 10/02/2024 COMP METAB OLIC PANEL glucose 147 mg/dL 70-120 high Not Available [facility] ([facility]) [address] , [place], [address], 10/02/2024 08:04:39 10/02/20 24 10/02/2024 COMP METAB OLIC PANEL BUN 19 mg/dL 7-18 high Not Available [facility] ([facility]) [address] , [place], [address], 10/02/2024 08:04:39 10/02/20 24 10/02/2024 COMP METAB OLIC PANEL creatinine 0.8 mg/dL 0.6-1. 3 Not Available [facility] ([facility]) [address] , [place], [address], 10/02/2024 08:04:39 10/02/20 24 10/02/2024 COMP METAB [...] latham ing kiney funct ion. Not Available [facility] ([facility]) [address], [place], [address], 10/02/2024 08:04:39 10/02/20 24 10/02/2024 COMP METAB OLIC PANEL total protein 7.5 g/dL 6.4-8. 2 Not Available [facility] ([facility]) [address], [place], [address], 10/02/2024 08:04:39 10/02/20 24 10/02/2024 COMP METAB OLIC PANEL albumin 4.2 g/dL 3.4-5. 0 Not Available [facility] ([facility]) [address], [place], [address], 10/02/2024 08:04:39 10/02/20 24 10/02/2024 COMP METAB OLIC PANEL globulin 3.3 Not Available [facility] ([facility]) [address], [place], [address], 10/02/2024 08:04:39 10/02/20 24 10/02/2024 COMP METAB OLIC PANEL alb/glob ratio 1.3 0.7-2 Not Available [facility] ([facility]) [address], [place], [address], 10/02/2024 08:04:39 10/02/20 24 10/02/2024 COMP METAB OLIC PANEL calcium 9.5 mg/dL 8.5-10 .5 Not Available [facility] ([facility]) [address], [place], [address], 10/02/2024 08:04:39 10/02/20 24 10/02/2024 COMP METAB OLIC PANEL bilirubin total 0.30 mg/dL 0.10-1 .00 Not Available [facility] ([facility]) [address], [place], [address], 10/02/2024 08:04:39 10/02/20 24 10/02/2024 COMP METAB OLIC PANEL AST (SGOT) 40 U/L 0-37 high Not Available [facility] ([facility]) [address], [place], [address], 10/02/2024 08:04:39 10/02/20 24 10/02/2024 COMP METAB OLIC PANEL ALT (SGPT) 78 U/L 0-65 high Not Available [facility] ([facility]) [address] [facility], [place], [address], 10/02/2024 08:04:39 10/02/20 24 10/02/2024 COMP METAB OLIC PANEL alk phosphatase 82 U/L 46-116 Not Available [facility] ([facility]) [address] [facility], [place], [address], 10/02/2024 08:04:39 10/02/20 24 10/02/2024 PT (PROT HROMB IN TIME) W INR prothrombin time 10.1 secon ds 9.3-11 .4 Not Available [facility] ([facility]) [address] [facility], [place], [address], 10/02/2024 08:08:50 10/02/20 24 10/02/2024 PT (PROT [...] Mecha nical Heart Valve s Not Available [facility] ([facility]) [address], [place], [address], 10/02/2024 08:08:50 10/02/20 24 10/03/2024 ACUTE HEPAT ITIS PANEL hep A Ab, IgM Negati ve negati ve A negat liliam anti- HAV IgM resul t sugge sts no recen t or curre nt HAV infec tion. Not Available [facility] ([facility]) [address] [facility], [place], [address], 10/03/2024 06:16:59 10/02/20 24 10/03/2024 ACUTE HEPAT ITIS PANEL HBsAg screen Negati ve negati ve Not Available [facility] ([facility]) [address] [facility], [place], [address], 10/03/2024 06:16:59 10/02/20 24 10/03/2024 ACUTE HEPAT ITIS PANEL hep B core Ab, IgM Negati ve negati ve Not Available [facility] ([facility]) [address] [facility], [place], [address], 10/03/2024 06:16:59 10/02/20 24 10/03/2024 ACUTE HEPAT ITIS PANEL HCV Ab Non Reacti ve non reacti ve Perfo [place]med at: [facility] [place] [address] Lab Direc tor: Luis copeland PhD, Phone : [phone] Not Available [facility] ([facility]) [address] [facility], [place], [address], 10/03/2024 06:16:59 10/02/20 24 10/03/2024 ACUTE HEPAT ITIS PANEL hep A Ab, IgM Negati ve negati ve A negat liliam anti- HAV IgM resul t sugge sts no recen t or curre nt HAV infec tion. Not Available [facility] ([facility]) [address], [place], [address], 10/03/2024 06:17:00 10/02/2010/03/2024 ACUTE HEPAT ITIS PANEL HBsAg screen Negati ve negati ve Not Available [facility] ([facility]) [address], [place], [address], 10/03/2024 06:17:00 10/02/20 24 10/03/2024 ACUTE HEPAT ITIS PANEL hep B core Ab, IgM Negati ve negati ve Not Available [facility] ([facility]) [address], [place], [address], 10/03/2024 06:17:00 10/02/2010/03/2024 ACUTE HEPAT ITIS PANEL HCV Ab Non Reacti ve non reacti ve Perfo rmed at: [facility] [address] [place], [place] [id number] Lab Direc tor: Luis copeland PhD, Phone : [phone] Not Available [facility] ([facility]) [address] [facility], [place], [address], 10/03/2024 06:17:00 10/02/2010/03/2024 ACUTE HEPAT ITIS PANEL interpretati on: Commen t . Not infec jelena with HCV unles s early or acute infec tion is suspe cted (whic h may be delay ed in an immun ocomp romis ed indiv idual ), or other evide nce exist s to indic ate HCV infec tion. Perfo rmed at: [facility] [address] [place] [address] Lab Direc tor: Luis copeland PhD, Phone : [phone] Not Available [facility] ([facility]) [address], [place], [address], 10/03/2024 06:17:00 10/02/2006 1010/03/2024 ARNAV W/REF LEEANN IF POSIT LILIAM antinuclear Ab, direct NEGATI VE negati ve Perfo rmed at: [place] [id number] [place] [address] Lab Direc tor: Luis copeland PhD, Phone : [phone] Not Available [facility] ([facility]) [address] [facility], [place], [address], 10/03/2024 13:13:40 10/02/20 24 10/03/2024 MITOC HONDR IAL ANTIB ODIES mitochondria l (M2) Ab <20.0 units 0.0-20 .0 Negat liliam 0.0 - 20.0 Equiv ocal 20.1 - 24.9 Posit liliam >24.9 . Mitoc hondr ial (M2) Antib odies are found in 90-96 % of patie nts with prima ry bilia ry cirrh osis. Perfo rmed at: [address] [address] Lab Direc tor: Luis copeland PhD, Phone : [phone] Not Available [facility] ([facility]) [address] [facility], [place], [address], 10/03/2024 15:14:30 10/02/20 24 10/03/2024 IGG IgG 201 mg/dL 586-16 02 low Resul t confi rmed on matt ntrat ion. Perfo rmed at: [place] [id number] [place] [address] Lab Direc tor: Luis copeland PhD, Phone : [phone] Not Available [facility] ([facility]) [address] [facility], [place], [address], 10/03/2024 15:14:32 10/02/20 24 10/03/2024 ACTIN (SMOO [...] osis. Perfo rmed at: [facility] [address] [facility], [place] [address] Lab Direc tor: Luis copeland PhD, Phone : [phone] Not Available [facility] ([facility]) [address] [facility], [place], [address], 10/03/2024 15:14:34 10/02/20 24 10/05/2024 BAUTISTA FIBRO SURE PLUS alpha 2-macroglobu jericho, qn 563 mg/dL 110-27 6 high Not Available [facility] ([facility]) [address] [facility], [place], [address], 10/05/2024 06:16:12 10/02/20 24 10/05/2024 BAUTISTA FIBRO SURE PLUS haptoglobin 166 mg/dL 33-346 Not Available [facility] ([facility]) [address] [facility], [place], [address], 10/05/2024 06:16:12 10/02/20 24 10/05/2024 BAUTISTA FIBRO SURE PLUS apolipoprote in A-1 190 mg/dL 116-20 9 Not Available [facility] ([facility]) [address] [place], [address], 10/05/2024 06:16:12 10/02/20 24 10/05/2024 BAUTISTA FIBRO SURE PLUS bilirubin, total 0.2 mg/dL 0.0-1. 2 Not Available [facility] ([facility]) [address] [place], [address], 10/05/2024 06:16:12 10/02/20 24 10/05/2024 BAUTISTA FIBRO SURE PLUS GGT 22 IU/L 0-60 Not Available [facility] ([facility]) [address] [place], [address], 10/05/2024 06:16:12 10/02/20 24 10/05/2024 BAUTISTA FIBRO SURE PLUS ALT (SGPT) p5p 69 IU/L 0-40 high Not Available [facility] ([facility]) [address], [place], [address], 10/05/2024 06:16:12 10/02/20 24 10/05/2024 BAUTISTA FIBRO SURE PLUS AST (SGOT) p5p 48 IU/L 0-40 high Not Available [facility] ([facility]) [address] [place], [address], 10/05/2024 06:16:12 10/02/20 24 10/05/2024 BAUTISTA FIBRO SURE PLUS cholesterol, total 138 mg/dL 100-19 9 Not Available [facility] ([facility]) [address] [place], [address], 10/05/2024 06:16:12 10/02/20 24 10/05/2024 BAUTISTA FIBRO SURE PLUS glucose, serum 156 mg/dL 70-99 high Not Available [facility] ([facility]) [address] [place], [address], 10/05/2024 06:16:12 10/02/20 24 10/05/2024 BAUTISTA FIBRO SURE PLUS triglyceride s 229 mg/dL 0-149 high Not Available [facility] ([facility]) [address] [place], [address], 10/05/2024 06:16:12 10/02/20 24 10/05/2024 BAUTISTA FIBRO [...] Stage F4 - Cirrh osis Not Available [facility] ([facility]) [address], [place], [address], 10/05/2024 06:16:12 10/02/20 24 10/05/2024 BAUTISTA FIBRO SURE PLUS fibrosis stage F1-F2 Not Available [facility] ([facility]) [address] [facility], [place], [address], 10/05/2024 06:16:12 10/02/20 24 10/05/2024 BAUTISTA FIBRO SURE PLUS fibrosis score 0.32 0.00-0 .21 high Not Available [facility] ([facility]) [address] [facility], [place], [address], 10/05/2024 06:16:12 10/02/20 24 10/05/2024 BAUTISTA FIBRO SURE PLUS steatosis score 0.49 0.00-0 .40 high Not Available [facility] ([facility]) [address] [place], [address], 10/05/2024 06:16:12 10/02/20 24 10/05/2024 BAUTISTA FIBRO SURE PLUS steatosis grade Commen t S1 - Mild Steat osis (But Clini filomena Signi fican t) (5- 33%) Not Available [facility] ([facility]) [address] [place], [address], 10/05/2024 06:16:12 10/02/20 24 10/05/2024 BAUTISTA FIBRO SURE PLUS steatosis scoring Commen t . <=0.4 0 = S0 - No Steat osis (<5%) 0.40 - 0.55 = S1 - Mild Steat osis (but Clini filomena Signi fican t) (5-33 %) >0.55 = S2S3- Moder ate to Sever e Steat osis (Clin icall y Signi fican t) (34-1 00%) Not Available [facility] ([facility]) [address] , [place], [address], 10/05/2024 06:16:12 10/02/20 24 10/05/2024 BAUTISTA FIBRO SURE PLUS bautista scoring Commen t . <=0.2 5 = N0 - No BAUTISTA/ MASH 0.25 - 0.50 = N1 - Mild BAUTISTA/ MASH 0.50 - 0.75 = N2 - Moder ate BAUTISTA/ MASH >0.75 = N3 - Sever e BAUTISTA/ MASH Not Available [facility] ([facility]) [address], [place], [address], 10/05/2024 06:16:12 10/02/20 24 10/05/2024 BAUTISTA FIBRO SURE PLUS bautista grade Commen t N3 - Sever e BAUTISTA Not Available [facility] ([facility]) [address] , [place], [address], 10/05/2024 06:16:12 10/02/20 24 10/05/2024 BAUTISTA FIBRO SURE PLUS bautista score 0.82 0.00-0 .25 high Not Available [facility] ([facility]) [address] , [place], [address], 10/05/2024 06:16:12 10/02/20 24 10/05/2024 BAUTISTA FIBRO [...] ction s of fibro sis. Not Available [facility] ([facility]) [address], [place], [address], 10/05/2024 06:16:12 10/02/20 24 10/05/2024 BAUTISTA FIBRO SURE PLUS methodology: Commen t . The jerel mello teste d are perfo rmed by Fibro Sure- Speci fic metho ds. Not inten ded for use with other diagn ostic consi derat ions. Not Available [facility] ([facility]) [address], [place], [address], 10/05/2024 06:16:12 10/02/20 24 10/05/2024 BAUTISTA FIBRO SURE PLUS interpretati on: Commen t . Quant itati ve resul ts of 10 bioch emica ls in combi natio n with age and gende r, are jerel zed using a compu tatio nal algor ithm to provi de a quant itati ve surro gate marke r (0.0- 1.0) of liver fibro sis (Alpha vir F0-F4 ), hepat ic steat osis [...] fican t NAFLD /MASL D fibro sis (Alpha vir F2-F4 ) and 11% had cirrh osis by liver biops y, a fibro sis resul t of >0.3 yield ed a sensi tivit y of 83% and a speci ficit y of 78% for the detec tion of signi fican t fibro sis. 1 Steat osis averye r: In a popul ation of 2997 patie nts, where 61% had signi fican t steat osis (>=5% ) on a liver biops y, a steat osis score >0.4 had a sensi tivit y of 79% and a speci ficit y of 50% for ident ifica tion of signi fican t steat osis. 2 BAUTISTA/ MASH averye r: In a popul ation of 1081 NAFLD /MASL D patie nts, where 51% had at least some BAUTISTA/ MASH by liver biops y, a predi ction of BAUTISTA/ MASH had a sensi tivit y of 72% for ident ifyin g BAUTISTA/ MASH and a speci ficit y of 71%. 3 Not Available [facility] ([facility]) [address], [place], [address], 10/05/2024 06:16:12 10/02/20 24 10/05/2024 BAUTISTA FIBRO SURE PLUS comment: Commen t . This test was devel oped and its perfo rmanc e natty cteri stics deter mined by [employer]. It has not been clear ed or appro mellissa by the Food and Drug Admin istra tion. . For quest ions regar ding this repor t pleas e conta ct custo geraldine servi ce at [phone]. . Refer ences : . 1. Bev toscano V. et al. Diagn ostic Value of Bioch emica l Marke rs (Fibr oTest ) for the predi ction of Liver Fibro sis in patie nts with Non-A lcoho lic Fatty Liver Disea se. [facility] Gastr oente rolog y 2006 ; 6:6. 2. Rebecca sorensen T. et al. The Diagn ostic Perfo rmanc e of a Simpl i fied Blood Test (Stea toTes t-2) for the Predi ction of Liver Steat o sis. Eur J Gastr oente rol Hepat ol. 2019; 31:39 3-402 . 3. Rebecca sorensen T. et al. Diagn ostic perfo rmanc e of a new nonin v asive test for nonal cohol ic steat ohepa titis using a simpl ified his tolog ical refer ence. Eur J Gastr oente rol Hepat ol. 2018 March; 30:56 9-577 . Perfo rmed at: - [facility] [place] [address] [facility] , [place] [address] Lab Direc tor: Mita cooper MD, Phone : [phone] Not Available [facility] ([facility]) [address], [place], [address], 10/05/2024 06:16:12 10/02/20 24 10/07/2024 HERED ITARY [...] oms. Clini ugo sympt oms typic ally appea r betwe en 40 to 60 years [...] organ damag e. . [facility] couns eligonzalo is recom arlene d to discu ss the poten tial clini ugo impli catio ns of posit liliam resul ts, as well as recom menda tions for testi ng famil y membe rs. [facility] ic Coord inato rs are avail able for healt h care provi ders to discu ss resul ts at [phone] ([phone] . Test Detai ls: Three varia nts jerel zed: c.845 G>A (p.Cy s282T yr), commo nly refer red to as C282Y c.187 C>G (p.Hi s63As p), commo nly refer red to as H63D c.193 A>T (p.Se r65Cy s), commo nly refer red to as S65C . Metho ds/Li mitat ions: DNA Jerel sis of the HFE gene (NM_0 28864 .4) was perfo rmed by PCR ampli [...] e natty cteri stics deter mined by [facility]. It has not been clear ed or appro mellissa by the Food and Drug Admin istra tion. . Refer ences : Griffin BR, Avery PC, Edwinl ey K[place], Kellen lehman LW, Vanessa l ; Conjectaeri can Assoc iatio n for the Study of Liver Disea ses. Diagn osis and manag ement of hemoc hroma tosis : 2010 pract ice guide line by the Ameri can Assoc iatio n for the Study of Liver Disea ses. Hepat ology . 2010; 4(1): 328-4 3. doi: 10.10 02/ p.243 30. PMID: 66480 290; PMCID : PMC31 05965 . Cosmo G, Huey ot P, Flores felix DW, Chacorta r H, Hesham stoll O, Jaja n S, Alashok o I, Jb s M, Heike y S. EMQN best pract ice guide lines for the molec ular shalom ic diagn osis of hered itary hemoc hroma tosis (HH). Eur J Hum [facility] . 2016 Feb;2 4(4): 479-9 5. doi: 10.10 38/ej hg.20 15.12 8. Epub 2014 8. PMID: 67701 218; PMCID : PMC49 78702 . Not Available [facility] ([facility]) [address], [place], [address], 10/07/2024 17:10:09 10/02/20 24 10/07/2024 HERED ITARY HEMOC HROMA TOSIS reviewed by: Alberto t Techn ical [place] nent perfo rmed at [facility] Profe sarai al [place] nent perfo rmed by: . Labor atory Corpo ratio n of Ameri ca Holdi ngs Michael barragan, Ph.D. , [facility] Direc tor, Molec ular [facility] [address] [place] [address] Perfo rmed at: [place] - [facility] [address] , [place] [address] Lab Direc tor: Anjana Okeefe [facility] , Phone : [phone] Not Available [facility] ([facility]) [address] , [place], [address], 10/07/2024 17:10:09 10/02/20 24 10/16/2024 A1A DEFIC [...] dianna n and Clif nts. Not Available [facility] ([facility]) [address] , [place], [address], 10/16/2024 17:10:10 10/02/20 24 10/16/2024 A1A DEFIC ENCY PROFI LE additional information: Alberto t . Addit ional Clini ugo Infor matleidy n: Alpha -1 antit rypsi n defic [...] genot yping . . [facility] ic couns pamelagonzalo is recom arlene d to discu ss the poten tial clini ugo impli catio ns of posit liliam resul ts, as well as recom menda tions for testi ng famil y membe rs. [facility] ic Coord inato rs are avail able for healt h care provi ders to discu ss resul ts at [phone] ([phone] ). . Test Detai ls: Two varia [...] es in the SERPI NA1 gene (NM_0 67443 .4) was perfo rmed by multi plex [...] e natty cteri stics deter mined by [facility]. It has not been clear ed or appro mellissa by the Food and Drug Admin istra tion. . Refer ences : Chelsea maynard RA, Evangelist keith G, Abelardo douglas ML, Guilherme segura M, Chong CE, Elian connor K, Chalino medina DK, Tony t SL, Tracy segura JM, Tony NIEVES, Michela adrian C, Emerita Bo. The Diagn osis and Manag ement of Alpha -1 Antit rypsi n Defic iency in the Adult . Chron ic Obstr Pulm Dis. 2016 Apr 18;3(3 ):668 -682. doi: 10.15 326/j copdf .3.3. 2014. 0182. PMID: 09093 891; PMCID : PMC55 14862 . Tony NIEVES, Siddhartha estrada V, Prosper ZAPATA. Alpha -1 Antit rypsi n Defic iency . 2005Sep 08 Updat ed 2019April 02 . In: Elgin MP, Uziel cuellar HH, Ariella COLIN, et al., derek rs. GeneR eview s(R) Inter net . [place] ([place]): [facility] Aure andrews; 2020. Avail able from: https ://shaneka w.chab i.nlm .nih. gov/b ooks/ NBK15 19/ Not Available [facility] ([facility]) [address], [place], [address], 10/16/2024 17:10:10 10/02/20 24 10/16/2024 A1A DEFIC ENCY PROFI LE electronical ly signed by: Alberto Hadley , PhD [facility] Not Available [facility] ([facility]) [address], [place], [address], 10/16/2024 17:10:10 10/02/20 24 10/16/2024 A1A DEFIC ENCY PROFI LE a1a rfx to phenotype Not Indica jelena Perfo rmed at: [facility] - [facility] [address] [place] [address] Lab Direc tor: Mita cooper MD, Phone : [phone] Perfo rmed at: [place] - [facility] [address] [place] [address] Lab Direc tor: Anjana Okeefe [facility] , Phone : [phone] Not Available [facility] ([facility]) [address], [place], [address], 10/16/2024 17:10:10 10/02/20 24 10/16/2024 A1A DEFIC ENCY PROFI LE qtocg-5-zrpb trypsin,seru m 152 mg/dL 101-18 7 Not Available [facility] ([facility]) [address], [place], [address], 10/16/2024 17:10:10 10/14/20 24 10/14/2024 US, liver [facility] [address] [place] [address] Phone: Fax: Name: ZEHRA ESPINO Exam Date: : 1964 Age 58 years Gender : F Access ion: [id number] Physic judith: BRYCE CARDOZO Facili ty: [facility] Facili ty HSV: Outpat ient Exam: LIVER ULTRAS OUND Proced ure: US LIVER Exam Date: 9:08 AM 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 Electr onical ly signed by:Denys connor MD12/2023 11:55 AM EST RP Workst ation: [id number] Dictat ed By: Cristine Monroy Transc ribed By: Transc ribed On: 10:08 AM Electr onical ly signed by: Cristine Monroy Thank you for referr kaylah SRINIVASTAYLERZEHRA to [facility]. Legall y authen ticate d by MELISSA LAINEZ 2023-11 10:08: 00 CC'ed Logic: Orderi ng Provid er: CAS AVERY Attend ing Provid er: CAS AVERY Admitt ing Provid er: CAS AVERY 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 2.Diff use fatty infilt ration of the liver. Electr onical ly signed by:Chris segura MD/03/2025 11:46 AM EST RP Workst ation: [id number] Dictat ed By: Kunal Kinney Transc ribed By: Transc ribed On: 025 9:59 AM Electr onical ly signed by: Kunal Kinney 025 Thank you for referr ZEHRA Holley to [facility]. Legall y authen ticate d by TEMO CRAWFORD 11-27 09:59: 00 CC'ed Logic: Orderi ng Provid er: CAS AVERY Attend ing Provid er: CAS AVERY Referr ing Provid er: CAS AVERY Admitt ing Provid er: CAS AVERY [email or web address] [facility] [address] [facility], [place], [address], 12/09/2024 15:47:04 Result Notes None recorded. Procedures Surgical History Date Name Laterality Status Provider Name and Address Organization Details Recorded Time section completed Nigel JEAN [facility] [place] 11/28/2022 11:28:22 Knee Surgery completed Nigel JEAN [facility] [place] 11/28/2022 11:28:38 tonsilectomy/adenoi ds completed Nigel JEAN [facility] [place] 11/28/2022 11:28:50 thumb surgery completed Nigel JEAN [facility] [place] 11/28/2022 11:29:21 repair of shoulder completed Nigel JEAN [facility] [place] 11/28/2022 11:29:15 procedure on foot completed Nigel JEAN [facility] [place] 11/28/2022 11:29:29 Knee Surgery completed Nigel JEAN [facility] [place] 11/28/2022 11:29:42 cholecystectomy completed Nigel JEAN [facility] [place] 01/02/2023 08:59:30 Imaging Results None recorded. Procedure Notes None recorded. Medical Equipment None Reported. Allergies Allergen ID Allergen Name Allergen Category Reaction Reaction Severity Criticality Documentation Date Start Date Code Code System Note Provider Name and Address Organization Details Recorded Time 93337 lisinopri l medicatio n Not available Not available Not available 10/26/2022 85559 RxNorm ARIANE Mcintosh [facility] [place] 15:20:06 Medications Name Sig Start Date Stop [...] Not Available Not Available triamcinolo ne acetonide 0.5 % topical cream APPLY CREAM TOPICALLY TO AFFECTED AREA TWICE DAILY active Not Available Not Available No t Available azithromyci n 250 mg tablet TAKE [...] Not Available Not Available No t Available clobetasol 0.05 % topical cream APPLY 1 GRAM OF CREAM TOPICALLY TWICE DAILY FOR RASH ON LEFT FOOT FOR 4 WEEKS active Not Available Not Available No t [...] Not Available linezolid 600 mg tablet TAKE ONE TABLET BY MOUTH TWICE DAILY FOR 10 DAYS -- FINISH ALL MEDICINE -- active Not Available Not Available No t Available hydrocodone 7.5 mg-acetamin ophen 325 mg tablet TAKE ONE TABLET BY MOUTH EVERY 6 HOURS NEEDED FOR moderate pain MAY CAUSE DROWSINES S active Not Available Not Available No t Available pantoprazol e 40 mg tablet,marquise yed [...] completed Not Available Not Available Not Available mupirocin 2 % topical ointment APPLY OINTMENT TOPICALLY TO AFFECTED AREA TWICE DAILY FOR CELLULITI S FOR 3 WEEKS. active Not Available Not Available No t Available diclofenac sodium 50 mg tablet,marquise yed release TAKE 1 TABLET BY MOUTH TWICE DAILY NEEDED active Not Available Not Available No t Available clobetasol 0.05 % topical ointment APPLY APPROXIMA TELY 0.5 GRAM TOPICALLY TWICE DAILY FOR 2 WEEKS 10/01 completed Not Available Not Available Not Available lovastatin 20 mg tablet TAKE 1 TABLET BY MOUTH WITH EVENING MEAL 11/28 completed Not Available Not Available Not Available levofloxaci n 750 mg tablet TAKE ONE TABLET BY MOUTH ONCE DAILY FOR 10 DAYS -- FINISH ALL MEDICINE -- active Not Available Not Available No t Available methylpredn isolone 4 mg tablets in [...] TAKE 1 TABLET BY MOUTH TWICE DAILY active Not Available Not Available No t Available neomycin-po lymyxin-hyd rocort 3.5 mg-10,000 unit/mL-1 % ear drops,susp INSTILL 4 DROPS INTO AFFECTED EAR(S) THREE TIMES DAILY active Not Available Not Available No t Available cyclobenzap rine 5 mg tablet TAKE [...] Not Available Not Available Not Available Humalog JeromyikPen (U-100) Insulin 100 unit/mL subcutaneou s INJECT [...] Not Available Not Available No t Available Mounjaro 5 mg/0.5 mL subcutaneou s pen injector INJECT 1 PEN SUBCUTANE OUSLY ONCE A WEEK active Not Available Not Available No t Available Mounjaro 2.5 mg/0.5 mL subcutaneou s pen injector INJECT 1 PEN SUBCUTANE OUSLY ONCE A WEEK active Not Available Not Available No t Available Dexcom G7 Sensor device USE DIRECTED active Not Available Not Available No t Available Vitals Date Recorded Body height Body mass index (BMI) Body weight Heart rate Systolic blood pressure Diastolic blood pressure Provider Name and Address Organization Details Last Updated DateTime 3 175.26 cm 27.4 kg/m2 39438.7 4 g 79 /min 136 mm[Hg] 86 mm[Hg] Nigel THAKKAR - LPNT [facility] [place] 3 11:25:46 Date Recorded Body height Body mass index (BMI) Body weight Heart rate Systolic blood pressure Diastolic blood pressure Provider Name and Address Organization Details Last Updated DateTime 3 175.26 cm 27.1 kg/m2 24633.8 4 g 84 /min 137 mm[Hg] 84 mm[Hg] Nigel THAKKAR - LPNT [facility] [place] 3 08:58:44 Date Recorded Body weight Oxygen saturation Oxygen saturation in Arterial blood by Pulse oximetry Heart rate Systolic blood pressure Diastolic blood pressure Provider Name and Address Organization Details Last Updated DateTime 4 04130.0 8 g 96 % 96 % 85 /min 111 mm[Hg] 61 mm[Hg] Mary Cool ARIANE - LPNT [facility] [place] 4 10:14:49 Date Recorded Body weight Heart rate Systolic blood pressure Diastolic blood pressure Provider Name and Address Organization Details Last Updated DateTime 10/26/2022 72406.37 g 81 /min 117 mm[Hg] 71 mm[Hg] Ana Harmon ARIANE - LPNT [facility] [place] 10/26/2022 15:20:45 Social History Question Answer Notes LastModified by Organizat ion Details LastModified Time Tobacco Smoking Status Former Smoker Nigel Quintanilla sean ARIANE - LPNT [facility] [place] 11/28/2022 11:28:10 What Is Your Level Of Caffeine Consumption? Moderate [id number] Information not available 10/01/2024 Sex: Unknown Functional Status Question Answer Note LastModified by Organizat ion Details LastModified Time Do you use any illicit or recreational drugs? No [email or web address] Information not available 10/01/2024 What is your level of alcohol consumption? None [email or web address] Information not available 10/01/2024 Mental Status None [...] Osteoporosis/Osteopenia N Diverticulitis/Diverticulosis N Colon Polyps Y Anxiety Disorder N Diabetes Y Bleeding Disorder N Arthritis Y Seizures/Epilepsy N [...] SNOMED-CT Code Diagnosis ICD10 Code Diagnosis Note [id number] Johnna Karimi NP [facility] [address] 10/26/2022 15:08:20 10/26/2022 16:09:30 Steatotic liver disease [id number] K76.0 - believes PCP checked hepatitis- A and B status, will follow-up and let us know - Avoid NSAIDs and alcohol. - Do not take over 2 g of acetaminop hen daily. - Discussed weight loss and healthy diet.- liver ultrasound done 10/07/2022 , repeat in 6 months- will check labs at next office visit Liver cyst [id number] K76. 89 - 1.5 cm hepatic cyst- discussed with patient since cyst is less than 4 cm there is no further recommenda tion for additional follow-up Cholelithi asis without obstruction [id number] K80.20 - Referral placed to Dr. Funk [id number] Antwan Funk MD [facility] Bariatric s and Adv Surg [address] [facility] [address] [place] [address] 11/28/2022 10:44:00 11/28/2022 13:50:53 Cholelithiasis without obstruction [id number] K80.20 [id number] Antwan Funk MD [facility] n Bariatric s and Adv Surg [address] [facility] [address] [place] [address] 01/02/2023 08:47:14 01/02/2023 09:08:51 Chronic cholecystitis without calculus 31606051 K81.1 [id number] VANESSA CARDOZO NP [facility] [address] [facility] [address] [place] [address] 10/01/2024 09:59:56 10/01/2024 10:56:25 Liver enzymes level above reference range 731032953 R74.01 Screening for malignant neoplasm of colon 875472807 Z12.11 Health Concerns Section Related Observation LastModified by Organization Detai ls LastModified Time None Recorded Concern Status LastModified by Organization Details LastModified Time None Recorded Advance Directives Directive None Recorded Payers Insurance Date Sequence Insurance Name Policy Number Policy Gregorio Covered Member ID Gregorio Member ID Guarantor Name 03/29/2025 1 [place]) [id number] Zehra Aguayoor [id number] 79 Zehra Espino Notes Date Note Type Note Provider Name and Address Organization Details Recorded Time 10/26/2022 text/html (64) Vern nt is a 57-year-old female referred to our [...] hematochezia. Johnna Karimi NP [address], [place], [address], [place] - [facility] [place] 10/26/2022 16:22:00 10/01/2024 text/html CURRENT: Ms.Sano mckinney is a 58 year old female referred to us by Ms. Saba APRN for elevated liver enzymes. AST 48/ ALT 79 on recent labs. She reports she has had elevated liver enzymes for years dating back to 2011. Liver ultrasound in 2011 showed extensive hepatic steatosis. She does not remember if she saw a supervisor water softener service in the past. She has a distant history of heavy alcohol use in her 20s but now only drinks excessively once a year. She denies history of drug use. No history hepatitis. She denies issues with jaundice, abdominal swelling, easy bleeding, or unintentional weight loss. NO other GI complaints. VANESSA CARDOZO, KHOA [address], [place], [address], [place] - [facility] [place] 10/01/2024 19:14:11 OBGyn Episode No OBEpisode recorded.
--- OUTSIDE RECORDS SUMMARY | 2025-04-11 13:22 | XMS_ITS | Data Portability ---
Author Organization [facility] K[facility]ST[facility] Stevens [facility] Address [address] [place] [address] Care Team Providers Care Manager Marketing Communications Name Role Phone KATHARINAANASTASIARAMANDEEP Primary Care Provider BETO VALENTE Orthopedic Surgeon CHAITANYA PARK [employer] In[employer] Assessment No assessment recorded. Plan of Treatment Reminders Order Date Submit Date Provider Last Modified By Organization Details Last Modified Time Details Appointments None recorded. Lab None recorded. Referral None recorded. Procedures None recorded. Surgeries None recorded. Imaging XR, knee, 3 view 024 [place] Not available 4 09:23:26 Medication Orders Medrol (Duglas) 4 mg tablets in a dose pack 024 [facility] [address] [facility], [address] [place] [address] [email or web address], [address], 4 09:19:12 Patient TargetsNo targets recorded. Patient InstructionsNo instructions recorded. Reason for Referral None Reported. Results Created Date Observation Date Name Description Value Unit Range Abnormal Flag Note LastModifiedBy Organization Detail LastModifiedTime 05/08/20 24 05/08/2024 XR, knee, 3 view [place] [facility] She[place] or [address] [place] [address] Patien t Name: ZEHRA kumar : 1964 [...] By: Trey mar MD on 10:[address] [facility] [address] , [place], [address], 05/08/2024 11:15:38 05/29/20 24 05/29/2024 XR, knee, 3 view [facility] [address] [place] [facility] [place] [address] Patien t Name: ZEHRA ESPINO Patimirta t : 1964 Patien t [facility] ng Provid er: ANUJ KIRAN EXAM DATE: [...] By: Trey mar MD on 9:[address] [facility] [address] , [place], [address], 05/29/2024 10:05:59 06/26/20 24 06/26/2024 XR, joint , multi ple, 1 view [facility] [address] [place] [address] Patimirta t Name: ZEHRA kumar : 1964 [...] Trey mar MD on 8:45 AM [email or web address] [facility] [place] [address] , [place], [address], 06/26/2024 09:02:34 07/22/20 24 07/22/2024 XR, knee, 3 view [facility] [address] [place] [address] Patimirta t Name: ZEHRA kumar : 1964 [...] MD on 07/22/20 24 9:03 AM [email or web address] [facility] Radiology [place] [address] , [place], [address], 07/22/2024 10:07:23 Result Notes None recorded. Problems Name Problem SNOMED Code Status Onset Date Resolution Date Notes Provider Name and Address Organization Details Recorded Time Radial styloid tenosynov itis 87728976 Active 2014 From Automated Load;Prov ider: Myron Thornton;S tatus: Active Not Available [facility] 6 08:50:20 Idiopathi c osteoarth ritis 650487091 Active 2014 From Automated Load;Prov ider: Myron Thornton;S tatus: Active Not Available [facility] 6 08:50:20 Skin sensation disturban ce 48876296 Active 2014 From Automated Load;Prov ider: Myron Thornton;S tatus: Active Not Available [facility] 6 08:50:20 Finding of sensation of skin Active 2014 From Automated Load;Prov ider: Myron Thornton;S tatus: Active Not Available [facility] 6 08:50:20 Snapping thumb syndrome 40092103 Active 2014 From Automated Load;Prov ider: Myron Thornton;S tatus: Active Not Available [facility] 6 08:50:20 Injury of tendon of the rotator cuff of shoulder 063756876 Active 2018 PEDRO CHAVES II, PT, DPT [address] [place], [address] , [facility] 9 07:20:38 Muscle weakness 81203382 Active 2018 PEDRO CHAVES II PT, DPT [address] [place] [address], [address] , [facility] 9 07:20:39 Spasm 19998959 Active 2018 PEDRO CHAVES II, PT, DPT [address] [place] [address], [address] , [facility] 9 07:20:40 Muscular incoordin ation 64095476 Active 2018 PEDRO CHAVES II, PT, DPT [address] [place] [address], [address] , [facility] 9 07:20:41 History of operative procedure on shoulder 889685699 Active 2018 PEDRO CHAVES II, PT, DPT [address] [place] [address], [address] , [facility] 9 11:27:20 Biceps tendiniti s 879759215 Active 2018 PEDRO CHAVES II, PT, DPT [address] [place] [address], [address] , [facility] 9 11:27:20 History of arthrosco py of knee joint 684962917 Active [address] [facility] 9 16:25:08 Abnormal gait 98546601 Active [address] [facility] 9 16:25:22 Coronary arteriosc lerosis 04992007 Active 2023 EMMANUELLE Andrew MD [address] [place] [address], [address] , [facility] 4 17:48:09 History of percutane ous coronary intervent ion 577681772 Active 2023 EMMANUELLE Andrew MD [address] [place] [address], [address] , [facility] 4 17:48:10 Type 2 diabetes mellitus without complicat ion 133277084 Active 2023 EMMANUELLE Andrew MD [address] [place], [address] , [facility] 4 17:48:11 Osteoarth ritis of left knee joint 98386013994 9109 Active 2023 EMMANUELLE Andrew MD [address] [place], [address] , [facility] 4 17:48:13 Problem Notes None recorded. Procedures Surgical History Date Name Laterality Status Provider Name and Address Organization Details Recorded Time 4 PCM Visit completed Mekhi Weathers [facility] 04/11/2024 14:50:11 4 Injection Joint/Bursa, Major completed Holly Umanzor [facility] 11/21/2023 08:46:28 3 Injection Joint/Bursa, Major completed Jerod Del Castillo [facility] 06/23/2023 07:49:10 3 Injection Joint/Bursa, Second, Major completed Rosalind Ferreira [facility] 05/22/2023 17:27:54 2 Injection Trigger Finger Ortho completed MYRON THORNTON MD [address] [place], [address], [facility] 08/16/2022 09:40:25 9 PT Manual Therapy completed PEDRO CHAVES II, PT, DPT [address] [place], [address], [facility] 04/23/2019 09:22:49 9 PT Therapeutic Exercise completed PEDRO CHAVES II, PT, DPT [address] [place], [address], [facility] 04/23/2019 09:22:36 9 PT Manual Therapy completed PEDRO CHAVES II, PT, DPT [address] [place], [address], [facility] 04/19/2019 09:38:21 9 PT Therapeutic Exercise completed PEDRO CHAVES II, PT, DPT [address] [place], [address], [facility] 04/19/2019 09:38:09 9 PT Manual Therapy completed PEDRO CHAVES II, PT, DPT [address] [place], [address], [facility] 04/19/2019 14:52:48 9 PT Therapeutic Exercise completed PEDRO CHAVES II, PT, DPT [address] [place], [address], [facility] 04/19/2019 14:52:18 9 PT Manual Therapy completed PEDRO CHAVES II, PT, DPT [address] [place], [address], [facility] 04/11/2019 13:14:32 9 PT Therapeutic Exercise completed PEDRO CHAVES II, PT, DPT [address] [place], [address], [facility] 04/11/2019 13:14:26 9 PT Evaluation - Moderate Complexity completed PEDRO CHAVES II, PT, DPT [address] [place], [address], [facility] 03/27/2019 11:19:26 9 PT Therapeutic Exercise completed PEDRO CHAVES II, PT, DPT [address] [place], [address], [facility] 03/27/2019 11:19:48 9 Suture/Staple removal completed Gian LOAIZA PA-C [address] [place], [address], [facility] 03/17/2019 16:37:13 9 PT Manual Therapy completed PEDRO CHAVES II, PT, DPT [address] [place], [address], [facility] 02/05/2019 11:48:02 9 PT Therapeutic Exercise completed PEDRO CHAVES II, PT, DPT [address] [place], [address], [facility] 02/05/2019 11:48:00 9 PT Therapeutic Exercise completed PEDRO CHAVES II, PT, DPT [address] [place], [address], [facility] 02/03/2019 21:33:58 9 PT Therapeutic Exercise completed PEDRO CHAVES II, PT, DPT [address] [place], [address], [facility] 01/23/2019 10:48:24 9 PT Therapeutic Exercise completed PEDRO CHAVES II, PT, DPT [address] [place], [address], [facility] 01/16/2019 08:36:06 9 PT Manual Therapy completed PEDRO CHAVES II, PT, DPT [address] [place], [address], [facility] 01/09/2019 10:18:54 9 PT Therapeutic Exercise completed PEDRO CHAVES II, PT, DPT [address] [place], [address], [facility] 01/09/2019 10:18:36 9 PT Manual Therapy completed PEDRO HCAVES II, PT, DPT [address] [place], [address], [facility] 01/01/2019 14:17:20 9 PT Therapeutic Exercise completed PEDRO GOODWINT II, PT, DPT [address] [place], [address], [facility] 01/01/2019 14:17:07 9 PT Manual Therapy completed PEDRO GOODWINT II, PT, DPT [address] [place], [address], [facility] 01/03/2019 08:09:40 9 PT Therapeutic Exercise completed PEDRO GOODWINT II, PT, DPT [address] [place], [address], [facility] 01/03/2019 08:09:27 9 PT Therapeutic Exercise completed PEDRO Penny ANASTACIO II, PT, DPT [address] [place], [address], [facility] 12/20/2018 11:07:47 9 PT Evaluation - Moderate Complexity completed PEDRO Penny ANASTACIO II, PT, DPT [address] [place], [address], [facility] 12/20/2018 07:13:15 9 PT Therapeutic Exercise completed PEDRO Penny ANASTACIO II, PT, DPT [address] [place], [address], [facility] 12/20/2018 07:13:36 7 Op Note completed MYRON THORNTON MD [address] [place], [address], [facility] 03/20/2017 08:16:54 Imaging Results None recorded. Procedure Notes None recorded. Medical Equipment None Reported. Allergies Allergen ID Allergen Name Allergen Category Reaction Reaction Severity Criticality Documentation Date Start Date Code Code System Note Provider Name and Address Organization Details Recorded Time 567350 lisinopri l medicatio n cough Not available Not available 11/29/2018 48566 RxNorm Jerod Del Castillo [facility] 9 09:54:54 Medications Name Sig Start [...] Not Available Not Available No t Available [place] 10 mg-325 mg tablet Take 1 tablet [...] Updated DateTime 05/08/2024 175.26 cm 26.4 kg/m2 02548.03 g Lilia Rashid [facility] 05/08/2024 10:49:10 Date Recorded Body height Body mass index (BMI) Body weight Systolic blood pressure Diastolic blood pressure Provider Name and Address Organization Details Last Updated DateTime 05/29/2024 175.26 cm 26.4 kg/m2 44179.03 g 125 mm[Hg] 80 mm[Hg] Mekhi Weathers [facility] 09:32:10 Date Recorded Body height Provider Name an d Address Organization Details Last Updated DateTime 06/26/2024 175.26 cm Bola Carlos [facility] 06/26/2024 08:46:55 Date Recorded Body height Body mass index (BMI) Body weight Provider Name and Address Organization Details Last Updated DateTime 07/22/2024 175.26 cm 26.4 kg/m2 18186.03 g Holly Umanzor [facility] 07/22/2024 08:02:03 Social History Question Answer Notes LastModified by Organizat ion Details LastModified Time Tobacco Smoking Status Former Smoker Smita estrada [facility] 03/03/2017 15:28:02 Accident Related Injury Yes [email or web address] Information not available 03/03/2017 What Is Your Level Of Caffeine Consumption? Moderate [email or web address] Information not available 03/03/2017 Which Of Your Hands Is Dominant? Right [email or web address] Information not available 03/03/2017 Which Hand Is Involved? Right Information not available 03/03/2017 Rate The Severity Of Your Symptoms: (0-10 With 0=none And 10=worst Possible) 3 [email or web address] Information not available 02/05/2019 When Are Your Symptoms The Worst? Night Day Neither Neither [email or web address] Information not available 03/03/2017 Date Of Injury: 06/11/2015 [email or web address] Informati on not available 03/03/2017 Have You Been Treated For This Problem Before? Yes [email or web address] Information not available 03/03/2017 How Long Have You Had These Symptoms? 06/11/2015 [email or web address] Information not available 03/03/2017 Will This Be Filed As Workers' Compensation? Yes [email or web address] Information not available 03/03/2017 What Was The Date Of Your Most Recent Tobacco Screening? 05/13/2019 Information not available 12/31/2019 Has Tobacco Cessation Counseling Been Provided? No [email or web address] Information not available 03/03/2017 Work Related Injury? Yes Information not available 03/03/2017 Sex: Unknown Functional Status Question Answer Note LastModified by Organizat ion Details LastModified Time Do you use any illicit or recreational drugs? No [email or web address] Information not available 03/03/2017 What is your level of alcohol consumption? Occasional [email or web address] Information not available 03/03/2017 Are you currently employed? Yes [email or web address] Information not available 03/03/2017 What is your occupation? [employer] [email or web address] Information not available 03/03/2017 Mental Status None recorded. Family History Relationship Description Onset Age of this Age Resolved Age Notes LastModified by Organization Details LastModified Time Father No current problems or disability [email or web address] Not available 03/03 15:27:56 Mother No current problems or disability [email or web address] Not available 03/03 15:27:56 Medical History Condition Response Allergies/Hayfever N Other N Anxiety/Depression N Gout N Thyroid Disease N Kidney Stones N Heart Conditions N Hernia N Migraines N COPD N Glaucoma N Pneumonia N Skin Problems N Immune System Disorder N Anesthesia Complications N Heart Attack ([place]) N Mental Illness N Neurological Problems N Diabetes Y Rheumatic Fever N Bleeding Disorder N Seizures/Epilepsy N Arthritis N Blood Clot N Tuberculosis N Genetic Disorder N AIDS/HIV N Cancer N Stroke N Asthma N Blood Thinners N Sleep Apnea N Alcohol Overuse/Alcohol Abuse N High Cholesterol Y Liver Disease N Included as Review of Systems N Hypertension N Osteoporosis N Kidney Disease N Gynecological HistoryNo gynecological history recorded. Obstetrics History GPAL:G 0 P 0 0 0 0 Past Encounters Encounter ID Performer Location Encounter Start Date Encounter Closed Date Diagnosis/Indication Diagnosis SNOMED-CT Code Diagnosis ICD10 Code Diagnosis Note [id number] MYRON THORNTON [facility] [address] [place] [address] 03/03/2017 14:23:32 03/03/2017 16:45:25 Snapping thumb syndrome 02628475 M65.311 Right trigger thumb Osteoarthr osis of the carpometacarpal joint of the thumb 86633345 M18.11 Previous x-rays of the right wrist dated 07/30/15 demonstrat e mild arthritic changes of the thumb [facility] joint (CSI: 01/19/16) [id number] MYRON THORNTON MD SURGERY SCHEDULE [address] [place] [address] 03/20/2017 06:04:45 03/20/2017 06:10:21 [id number] [facility] [address] [address] 03/31/2017 15:16:43 03/31/2017 16:07:47 Postoperative care 406165615 Z48.89 2 weeks status post right trigger thumb release (03/20/17) [id number] MYRON THORNTON MD ORTHOPEDI [facility] [address] [place] [address] 05/05/2017 15:10:04 05/05/2017 16:51:23 Postoperative care 263087617 Z48.89 6 weeks status post right trigger thumb release (03/20/17) [id number] BETO VALENTE MD [facility] [address] [address] 11/29/2018 09:31:09 11/29/2018 12:08:29 Pain of right shoulder joint 9790211303 2041888 M25.127 [id number] PEDRO CHAVES II, PT, DPT PHYSICAL THERAPY / HAND THERAPY [place] [address] [address] 12/06/2018 13:43:55 12/20/2018 11:22:54 Injury of tendon of the rotator cuff of shoulder 879944053 S46.091D Muscle weakness 48367419 M62.81 Spasm 84741077 R25.2 Muscular incoordination 16692767 R27.8 [id number] PEDRO CHAVES II, PT, DPT PHYSICAL THERAPY / HAND THERAPY [place] [address] [address] 12/20/2018 10:12:44 12/20/2018 11:46:47 Injury of tendon of the rotator cuff of shoulder 738836778 S46.091D Muscle weakness 39928615 M62.81 Muscular incoordination 97029600 R27.8 Spasm 50053959 R25.2 [id number] PEDRO CHAVES II PT, DPT PHYSICAL THERAPY / HAND THERAPY [address] [address] 12/28/2018 08:00:23 01/03/2019 10:08:18 Injury of tendon of the rotator cuff of shoulder 594937914 S46.091D Muscle weakness 51495903 M62.81 Muscular incoordination 01979996 R27.8 Spasm 26872403 R25.2 [id number] PEDRO CHAVES II PT, DPT PHYSICAL THERAPY / HAND THERAPY [address] [address] 01/01/2019 10:25:25 01/01/2019 12:32:38 Muscle weakness 74391347 M62.81 Injury of tendon of the rotator cuff of shoulder 928849269 S46.091D Muscular incoordination 79673896 R27.8 Spasm 34443751 R25.2 [id number] BETO VALENTE MD [place] [address] [place] [address] 01/01/2019 10:25:46 01/01/2019 14:47:36 Pain of right shoulder joint 9725551406 6757424 M25.282 [id number] PEDRO CHAVES II, PT, DPT PHYSICAL THERAPY / HAND THERAPY [place] [address] [place] [address] 01/09/2019 08:53:33 01/09/2019 10:33:49 Muscle weakness 09491948 M62.81 Injury of tendon of the rotator cuff of shoulder 044963517 S46.091D Muscular incoordination 65087143 R27.8 Spasm 60986160 R25.2 [id number] PEDRO CHAVES II, PT, DPT PHYSICAL THERAPY / HAND THERAPY [address] [place] [address] 01/16/2019 07:16:12 01/16/2019 08:39:53 Injury of tendon of the rotator cuff of shoulder 617255164 S46.091D Muscle weakness 51393212 M62.81 Muscular incoordination 87464115 R27.8 Spasm 05786320 R25.2 [id number] PEDRO CHAVES II, PT, DPT PHYSICAL THERAPY / HAND THERAPY [address] [place] [address] 01/23/2019 07:26:00 01/23/2019 13:26:37 Muscle weakness 75739623 M62.81 Injury of tendon of the rotator cuff of shoulder 311289768 S46.091D Muscular incoordination 93429421 R27.8 Spasm 83760290 R25.2 [id number] PEDRO CHAVES II, PT, DPT PHYSICAL THERAPY / HAND THERAPY [address] [place] [address] 01/30/2019 07:24:14 02/04/2019 08:52:18 Injury of tendon of the rotator cuff of shoulder 647456035 S46.091D Muscle weakness 87590605 M62.81 Muscular incoordination 98127264 R27.8 Spasm 68025253 R25.2 [id number] PEDRO CHAVES II, PT, DPT PHYSICAL THERAPY / HAND THERAPY [place] [address] [place] [address] 02/05/2019 10:45:34 02/05/2019 13:35:49 Muscle weakness 25224390 M62.81 Injury of tendon of the rotator cuff of shoulder 979940023 S46.091D Muscular incoordination 74506454 R27.8 Spasm 92699889 R25.2 [id number] BETO VALENTE MD [facility] [place] [address] [place] [address] 02/05/2019 11:48:20 02/05/2019 13:47:18 Pain of right shoulder joint 7569651731 0656807 M25.387 [id number] BETO VALENTE MD SURGERY SCHEDULE [address] [place] [address] 03/08/2019 09:13:57 03/08/2019 09:35:08 [id number] Gian LOAIZA PA-C [facility] [place] [address] [place] [address] 03/14/2019 14:42:11 03/14/2019 15:46:39 Postoperative care 776021143 Z48.89 [id number] PEDRO CHAVES II, PT, DPT PHYSICAL THERAPY / HAND THERAPY [place] [address] [place] [address] 03/27/2019 07:51:23 03/27/2019 13:04:43 Muscle weakness 70910786 M62.81 History of operative procedure on shoulder 433943126 Z98.890 Biceps tendinitis 190439 007 M75.21 Muscular incoordination 58608625 R27.8 [id number] PEDRO CHAVES II, PT, DPT PHYSICAL THERAPY / HAND THERAPY [place] [address] [place] [address] 04/11/2019 08:18:18 04/11/2019 09:23:31 Biceps tendinitis 801282412 M75.21 Muscle weakness 76777139 M62.81 Muscular incoordination 58435325 R27.8 History of operative procedure on shoulder 595167433 Z98.068 [id number] Gian LOAIZA PA-C [facility] [place] [address] [place] [address] 04/11/2019 08:18:50 04/11/2019 09:59:59 Postoperative care 020792369 Z48.89 [id number] PEDRO CHAVES II, PT, DPT PHYSICAL THERAPY / HAND THERAPY [place] [address] [place] [address] 04/16/2019 08:21:36 04/22/2019 09:36:50 Biceps tendinitis 277087929 M75.21 Muscle weakness 75840221 M62.81 Muscular incoordination 78812585 R27.8 History of operative procedure on shoulder 128630640 Z98.187 [id number] PEDRO CHAVES II, PT, DPT PHYSICAL THERAPY / HAND THERAPY [place] [address] [place] [address] 04/19/2019 08:45:02 04/19/2019 15:37:00 Biceps tendinitis 499671838 M75.21 Muscle weakness 13685870 M62.81 Muscular incoordination 45992068 R27.8 History of operative procedure on shoulder 363409167 Z98.290 [id number] BETO VALENTE MD [facility] [place] [address] [place] [address] 04/22/2019 14:42:50 05/06/2019 09:40:22 Tear of lateral meniscus of knee 778735179 S83.281A Pes anseri nus bursitis of right knee 6881054728 231655 M70.51 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 785227137 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 [id number] PEDRO CHAVES II PT, DPT PHYSICAL THERAPY / HAND THERAPY [place] [address] [place] [address] 04/23/2019 08:45:17 04/23/2019 12:56:49 Biceps tendinitis 327599613 M75.21 Muscle weakness 98900300 M62.81 Muscular incoordination 68237422 R27.8 History of operative procedure on shoulder 580807608 Z98.166 [id number] PEDRO CHAVES II, PT, DPT PHYSICAL THERAPY / HAND THERAPY [place] [address] [place] [address] 04/26/2019 08:45:45 05/01/2019 10:20:49 Biceps tendinitis 532049557 M75.21 Muscle weakness 10665944 M62.81 History of operative procedure on shoulder 038443939 Z98.890 Muscular incoordination 86342899 R27.8 [id number] BETO VALENTE MD [facility] [place] [address] [place] [address] 04/30/2019 08:04:05 04/30/2019 10:03:41 Pain in right knee 5592411308 57694 M25.593 [id number] PEDRO CHAVES II, PT, DPT PHYSICAL THERAPY / HAND THERAPY [place] [address] [place] [address] 04/30/2019 08:06:50 05/01/2019 13:41:09 Biceps tendinitis 577598697 M75.21 Muscle weakness 39622766 M62.81 Muscular incoordination 44600524 R27.8 History of operative procedure on shoulder 423465071 Z98.081 [id number] PEDRO CHAVES II PT, DPT PHYSICAL THERAPY / HAND THERAPY [place] [address] [place] [address] 05/07/2019 08:17:18 05/07/2019 09:55:31 Biceps tendinitis 966489713 M75.21 Muscle weakness 79963501 M62.81 History of operative procedure on shoulder 694278747 Z98.890 Muscular incoordination 85031169 R27.8 [id number] PEDRO CHAVES II, PT, DPT PHYSICAL THERAPY / HAND THERAPY [place] [address] [place] [address] 05/10/2019 08:53:18 05/21/2019 08:14:13 Biceps tendinitis 913011471 M75.21 Muscle weakness 99788400 M62.81 Muscular incoordination 80223057 R27.8 History of operative procedure on shoulder 297525832 Z98.223 [id number] PEDRO CHAVES II, PT, DPT PHYSICAL THERAPY / HAND THERAPY [place] [address] [place] [address] 05/13/2019 08:50:22 05/15/2019 08:31:09 Biceps tendinitis 159031513 M75.21 Muscle weakness 94172723 M62.81 Muscular incoordination 98671793 R27.8 History of operative procedure on shoulder 932079506 Z98.622 [id number] BETO VALENTE MD [facility] [address] [place] [address] 05/13/2019 08:51:00 05/13/2019 15:21:13 Pain of right shoulder joint 0802735764 9800980 M25.687 [id number] PEDRO CHAVES II, PT, DPT PHYSICAL THERAPY / HAND THERAPY [place] [address] [place] [address] 05/15/2019 08:27:39 05/15/2019 10:39:55 Biceps tendinitis 353249346 M75.21 Muscle weakness 85506253 M62.81 Muscular incoordination 35043311 R27.8 History of operative procedure on shoulder 236878083 Z98.590 [id number] PEDRO CHAVES II PT, DPT PHYSICAL THERAPY / HAND THERAPY [place] [address] [place] [address] 05/20/2019 08:18:17 05/20/2019 17:28:12 Biceps tendinitis 318868322 M75.21 Muscle weakness 86561970 M62.81 Muscular incoordination 93572627 R27.8 History of operative procedure on shoulder 690120240 Z98.656 [id number] PEDRO CHAVES II, PT, DPT PHYSICAL THERAPY / HAND THERAPY [place] [address] [place] [address] 05/23/2019 09:54:02 05/24/2019 10:32:36 Biceps tendinitis 254862923 M75.21 Muscle weakness 01019657 M62.81 Muscular incoordination 65984869 R27.8 Injury of tendon of the rotator cuff of shoulder 705219056 S46.091D [id number] PEDRO CHAVES II, PT, DPT PHYSICAL THERAPY / HAND THERAPY [place] [address] [place] [address] 05/27/2019 09:48:34 05/27/2019 11:36:38 Biceps tendinitis 296061427 M75.21 Muscle weakness 04465119 M62.81 Muscular incoordination 49213910 R27.8 History of operative procedure on shoulder 918102413 Z98.952 [id number] SEAN GUIDRY, JOSE A PHYSICAL THERAPY / HAND THERAPY [place] [address] [address] [address] 06/05/2019 08:42:58 06/05/2019 11:40:58 Biceps tendinitis 319882583 M75.21 Muscle weakness 15709244 M62.81 Muscular incoordination 02196938 R27.8 History of operative procedure on shoulder 492059820 Z98.890 Injury of tendon of the rotator cuff of shoulder 811795202 S46.001D [id number] BETO VALENTE MD SURGERY SCHEDULE [address] [place] [address] 06/07/2019 06:19:58 06/07/2019 06:21:26 [id number] PEDRO CHAVES II, PT, DPT PHYSICAL THERAPY / HAND THERAPY [place] [address] [place] [address] 06/10/2019 08:50:50 06/17/2019 11:34:27 Biceps tendinitis 933718134 M75.21 Muscle weakness 34946264 M62.81 Injury of tendon of the rotator cuff of shoulder 638304308 S46.091D Muscular incoordination 94538837 R27.8 [id number] R AUGUSTUS LOAIZA PA-C [facility] [address] [place] [address] 06/13/2019 14:11:08 06/13/2019 14:54:35 Postoperative care 401994591 Z48.89 [id number] PEDRO CHAVES II, PT, DPT PHYSICAL THERAPY / HAND THERAPY [place] [address] [place] [address] 06/13/2019 14:13:24 06/18/2019 14:53:33 Biceps tendinitis 364195174 M75.21 Muscle weakness 62513722 M62.81 History of operative procedure on shoulder 847198753 Z98.890 Muscular incoordination 88436244 R27.8 [id number] PEDRO CHAVES II, PT, DPT PHYSICAL THERAPY / HAND THERAPY [place] [address] [place] [address] 06/17/2019 07:49:24 06/24/2019 14:45:57 Biceps tendinitis 983197357 M75.21 Muscle weakness 53627597 M62.81 Muscular incoordination 32557870 R27.8 History of operative procedure on shoulder 085074339 Z98.747 [id number] BETO VALENTE MD [facility] [place] [address] [place] [address] 06/17/2019 07:52:06 06/17/2019 09:40:09 Pain of right shoulder joint 4217031065 9612389 M25.699 [id number] PEDRO CHAVES II, PT, DPT PHYSICAL THERAPY / HAND THERAPY [place] [address] [place] [address] 06/20/2019 08:44:33 06/26/2019 10:32:07 Muscle weakness 85699255 M62.81 Muscular incoordination 19944964 R27.8 Injury of tendon of the rotator cuff of shoulder 525609924 S46.091D History of operative procedure on shoulder 444300559 Z98.950 [id number] PEDRO CHAVES II, PT, DPT PHYSICAL THERAPY / HAND THERAPY [place] [address] [address] [address] 06/24/2019 07:51:58 06/28/2019 08:06:30 Muscle weakness 16521724 M62.81 Muscular incoordination 49663965 R27.8 History of operative procedure on shoulder 175333221 Z98.890 Injury of tendon of the rotator cuff of shoulder 306425299 S46.091D [id number] PEDRO CHAVES II, PT, DPT PHYSICAL THERAPY / HAND THERAPY [place] [address] [place] [address] 06/27/2019 08:23:59 07/02/2019 12:57:41 Biceps tendinitis 300888515 M75.21 Muscle weakness 77891854 M62.81 Muscular incoordination 02500634 R27.8 History of operative procedure on shoulder 031664755 Z98.612 [id number] PEDRO CHAVES II, PT, DPT PHYSICAL THERAPY / HAND THERAPY [place] [address] [place] [address] 06/27/2019 09:05:46 07/02/2019 13:01:22 History of arthroscopy of knee joint 833676299 Z98.890 Muscle weakness 36128495 M62.81 Muscular incoordination 39344468 R27.8 Abnormal gait 94547795 R 26.9 [id number] PEDRO CHAVES II, PT, DPT PHYSICAL THERAPY / HAND THERAPY [place] [address] [place] [address] 07/01/2019 09:15:09 07/02/2019 16:43:38 Biceps tendinitis 412619100 M75.21 Muscle weakness 70125188 M62.81 Injury of tendon of the rotator cuff of shoulder 470983416 S46.091D Muscular incoordination 35484457 R27.8 [id number] PEDRO CHAVES II, PT, DPT PHYSICAL THERAPY / HAND THERAPY [place] [address] [place] [address] 07/04/2019 08:37:58 07/04/2019 15:54:01 Biceps tendinitis 901920945 M75.21 Muscle weakness 63643517 M62.81 Muscular incoordination 72103446 R27.8 History of operative procedure on shoulder 848164976 Z98.127 [id number] PEDRO CHAVES II, PT, DPT PHYSICAL THERAPY / HAND THERAPY [place] [address] [place] [address] 07/04/2019 08:39:01 07/16/2019 16:19:15 Abnormal gait 70866730 R26.9 Muscle weakness 87697830 M62.81 Muscular incoordination 17511768 R27.8 History of arthroscopy of knee joint 645605501 Z98.781 [id number] Gian LOAIZA PA-C [facility] [place] [address] [place] [address] 07/04/2019 08:39:56 07/04/2019 13:52:12 Postoperative care 273931597 Z48.89 [id number] PEDRO CHAVES II, PT, DPT PHYSICAL THERAPY / HAND THERAPY [place] [address] [place] [address] 07/09/2019 07:39:22 07/09/2019 15:11:07 Abnormal gait 09681036 R26.9 Muscle weakness 91677323 M62.81 Muscular incoordination 62230517 R27.8 History of arthroscopy of knee joint 606801544 Z98.150 [id number] PEDRO CHAVES II, PT, DPT PHYSICAL THERAPY / HAND THERAPY [place] [address] [place] [address] 07/09/2019 07:40:03 07/09/2019 15:10:02 Biceps tendinitis 441632450 M75.21 Muscle weakness 33160192 M62.81 Muscular incoordination 46748073 R27.8 History of operative procedure on shoulder 188694509 Z98.472 [id number] PEDRO CHAVES II, PT, DPT PHYSICAL THERAPY / HAND THERAPY [place] [address] [place] [address] 07/11/2019 08:26:10 07/26/2019 08:02:14 Biceps tendinitis 849140289 M75.21 Muscle weakness 65151572 M62.81 Muscular incoordination 16497512 R27.8 History of operative procedure on shoulder 229509205 Z98.125 [id number] PEDRO CHAVES II, PT, DPT PHYSICAL THERAPY / HAND THERAPY [place] [address] [place] [address] 07/16/2019 12:44:55 07/16/2019 14:36:53 Biceps tendinitis 994029844 M75.21 Muscle weakness 07566916 M62.81 Muscular incoordination 01248757 R27.8 History of arthroscopy of knee joint 978220548 Z98.890 History of operative procedure on shoulder 410756111 Z98.132 [id number] PEDRO CHAVES II, PT, DPT PHYSICAL THERAPY / HAND THERAPY [place] [address] [place] [address] 07/19/2019 08:38:14 08/01/2019 07:13:05 Biceps tendinitis 309382203 M75.21 Muscle weakness 87575958 M62.81 Injury of tendon of the rotator cuff of shoulder 125834018 S46.091D History of operative procedure on shoulder 564886607 Z98.153 [id number] PEDRO CHAVES II, PT, DPT PHYSICAL THERAPY / HAND THERAPY [place] [address] [place] [address] 07/19/2019 08:39:44 07/24/2019 08:19:48 Abnormal gait 35028371 R26.9 Muscle weakness 64525102 M62.81 History of arthroscopy of knee joint 853373451 Z98.233 [id number] PEDRO CHAVES II PT, DPT PHYSICAL THERAPY / HAND THERAPY [place] [address] [place] [address] 07/23/2019 09:48:51 07/23/2019 13:28:20 Abnormal gait 57619806 R26.9 Muscle weakness 96793743 M62.81 Muscular incoordination 43605800 R27.8 History of arthroscopy of knee joint 648127844 Z98.301 [id number] BETO VALENTE MD [facility] [place] [address] [place] [address] 07/23/2019 09:51:16 07/23/2019 12:40:27 Pain of right shoulder joint 2948345755 7324166 M25.257 [id number] PEDRO CHAVES II PT, DPT PHYSICAL THERAPY / HAND THERAPY [address] [place] [address] 07/23/2019 09:52:01 07/24/2019 16:36:10 Muscle weakness 31179404 M62.81 Injury of tendon of the rotator cuff of shoulder 821046238 S46.091D Muscular incoordination 45380634 R27.8 History of operative procedure on shoulder 623100203 Z98.189 [id number] PEDRO CHAVES II, PT, DPT PHYSICAL THERAPY / HAND THERAPY [place] [address] [place] [address] 07/25/2019 08:46:43 08/05/2019 15:18:30 Biceps tendinitis 827281413 M75.21 Muscle weakness 44127681 M62.81 Muscular incoordination 23535188 R27.8 History of operative procedure on shoulder 764681564 Z98.014 [id number] PEDRO CHAVES II, PT, DPT PHYSICAL THERAPY / HAND THERAPY [place] [address] [place] [address] 07/30/2019 08:43:36 08/12/2019 08:30:00 Biceps tendinitis 859479112 M75.21 Muscle weakness 19201330 M62.81 Muscular incoordination 89825679 R27.8 History of operative procedure on shoulder 822463879 Z98.286 [id number] PEDRO CHAVES II, PT, DPT PHYSICAL THERAPY / HAND THERAPY [place] [address] [place] [address] 07/30/2019 08:44:27 08/12/2019 08:30:49 Abnormal gait 40687203 R26.9 Muscle weakness 89819796 M62.81 History of arthroscopy of knee joint 961272891 Z98.890 Muscular incoordination 62449613 R27.8 [id number] PEDRO CHAVES II, PT, DPT PHYSICAL THERAPY / HAND THERAPY [place] [address] [place] [address] 08/01/2019 08:39:40 08/09/2019 09:11:04 Biceps tendinitis 223169466 M75.21 Muscle weakness 75767030 M62.81 History of operative procedure on shoulder 514644376 Z98.890 Muscular incoordination 21210562 R27.8 [id number] PEDRO CHAVES II, PT, DPT PHYSICAL THERAPY / HAND THERAPY [place] [address] [place] [address] 08/05/2019 09:36:20 08/12/2019 08:07:57 Biceps tendinitis 568626331 M75.21 Muscle weakness 38681184 M62.81 Muscular incoordination 91934806 R27.8 History of operative procedure on shoulder 973977351 Z98.084 [id number] [facility] [place] [address] 08/15/2019 09:31:43 08/15/2019 14:47:54 Osteoarthritis of right knee joint 9632315825 42070 M17.11 [id number] BETO VALENTE MD [facility] [address] [place] [address] 08/27/2019 10:16:36 08/27/2019 12:39:10 Pain of right shoulder joint 8216802444 0640007 M25.057 [id number] BETO VALENTE MD [facility] [address] [place] [address] 09/23/2019 10:34:30 09/25/2019 12:32:00 Tear of lateral meniscus of knee 235306994 S83.271A [id number] BETO VALENTE MD [facility] [address] [place] [address] 10/08/2019 10:14:25 10/14/2019 19:41:27 Pain of right shoulder joint 7881419265 3372515 M25.067 [id number] BETO VALENTE MD [facility] [address] [place] [address] 01/27/2020 11:40:47 01/27/2020 14:05:41 Osteoarthritis of knee 896217500 M17.11 [id number] BETO VALENTE MD [facility] [address] [place] [address] 07/13/2020 09:09:21 07/13/2020 11:40:02 Pain in right knee 5568691024 43838 M25.739 [id number] BETO VALENTE MD [facility] [address] [place] [address] 08/28/2020 11:04:16 08/28/2020 11:54:22 Tendinitis of left patellar tendon 1044150263 23506 M76.52 Pain in left knee 979460 5764 93268 M25.562 possible mm tear [id number] MYRON THORNTON MD [facility] [address] [place] [address] 10/13/2020 12:49:31 10/13/2020 13:48:58 Postoperative care 129990619 Z48.89 Previously status post right trigger thumb release (03/20/17) Pain in right thumb 1076 175954 926469 M79.644 Outside x-rays of the right thumb reviewed with no evidence of underlying fracture/d islocation [id number] MYRON THORNTON MD [facility] [address] [place] [address] 11/12/2020 10:44:15 11/12/2020 13:27:11 Pain in right thumb 6220708056 018245 M79.644 Outside x-rays of the right thumb reviewed with no evidence of underlying fracture/d islocation Postoperative care 39882 9007 Z48.89 Previously status post right trigger thumb release (03/20/17) [id number] MYRON THORNTON MD [facility] [address] [place] [address] 12/22/2020 14:33:53 12/23/2020 13:36:28 Pain in right thumb 3343653635 733310 M79.644 Outside x-rays of the right thumb reviewed with no evidence of underlying fracture/d islocation Postoperative care 91993 9007 Z48.89 Previously status post right trigger thumb release (03/20/17) [id number] BETO VALENTE MD [facility] [address] [facility] [place] [place] [address] 05/18/2021 14:23:54 05/18/2021 15:57:45 Infection of foot 340308003 L08.9 Pain in left knee 540467 4493 96289 M25.562 possible mm tear [id number] BETO VALENTE MD [facility] [address] [place] [address] 05/24/2021 14:39:33 05/24/2021 17:02:15 Pain in left knee 7199917138 98964 M25.562 possible mm tear [id number] BETO VALENTE MD SURGERY SCHEDULE [address] [place] [address] 08/27/2021 06:07:52 08/27/2021 06:09:09 [id number] TY VARGAS PA-C [facility] [address] [place] [address] 09/02/2021 08:48:30 09/02/2021 09:27:09 Postoperative care 967327662 Z48.89 [id number] TY VARGAS PA-C [facility] [address] [place] [address] 09/28/2021 09:02:50 09/28/2021 10:04:41 Postoperative care 532905008 Z48.89 Patient progressin g well postoperat ively. [...] she continues to have this aching pain. [id number] TY VARGAS PA-C [facility] [address] [place] [address] 10/26/2021 08:42:32 10/26/2021 09:16:09 Postoperative care 287641955 Z48.89 Patient progressin g well postoperat ively. Some residual aching in the medial aspect of the knee. Strength and range of motion appropriat e today.Plan :Continue PT with HEP. Continue to ice and elevate frequently . Over-the-c ounter anti-infla mmatories as needed. Hold on injection today. [id number] TY VARGAS PA-C [facility] [address] [place] [address] 11/23/2021 12:57:16 11/23/2021 13:33:06 Postoperative care 860694416 Z48.89 Patient progressin g well postoperat ively. Some residual aching in the medial aspect of the knee. Strength and range of motion appropriat e today.Plan :Continue HEP. Ice and elevate as needed. 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 6719210 M65.331 Right long trigger finger (CSI: 02/25/2022) Previously status post right trigger thumb release (03/20/17) [id number] MYRON THORNTON MD [facility] [address] [place] [address] 03/24/2022 10:44:49 03/24/2022 12:40:36 Acquired trigger finger 7012148 M65.331 Right long trigger finger (CSI: 02/25/2022) Previously status post right trigger thumb release (03/20/17) Postoperative care 10425 9007 Z48.89 Previously status post right trigger thumb release (03/20/17) [id number] MYRON THORNTON MD SURGERY SCHEDULE [address] [facility] [place] [address] 04/20/2022 06:03:00 04/20/2022 06:04:21 [id number] LAURIE GONZALEZ PA-C [facility] [address] [place] [address] 05/05/2022 08:06:56 05/05/2022 08:31:04 Postoperative care 451029245 Z48.89 s/p Right middle trigger finger release (DOS: 04/20/22) Previously status post right trigger thumb release (03/20/17) [id number] MYRON THORNTON MD [facility] [address] [place] [address] 06/02/2022 09:09:46 06/02/2022 10:10:14 Postoperative care 863899156 Z48.89 6 weeks s/p Right middle trigger finger release (DOS: 04/20/22) Previously status post right trigger thumb release (03/20/17) [id number] MYRON THORNTON MD [facility] [address] [place] [address] 07/14/2022 08:16:23 07/14/2022 08:40:50 Postoperative care 256584756 Z48.89 12 weeks s/p Right middle trigger finger release (DOS: 04/20/22) Previously status post right trigger thumb release (03/20/17) [id number] MYRON THORNTON MD [facility] [address] [place] [address] 08/16/2022 08:33:51 08/16/2022 09:39:47 Postoperative care 659233578 Z48.89 4 months s/p right middle trigger finger release (DOS: 04/20/22) Previously status post right trigger thumb release (03/20/17) Flexor ten osynovitis of finger 437121670 M65.849 Right long finger flexor tendinitis (CSI: 08/16/2022) [id number] MYRON THORNTON MD [facility] [address] [place] [address] 09/22/2022 15:26:31 09/22/2022 16:42:00 Postoperative care 139599582 Z48.89 5 months s/p right middle trigger finger release (DOS: 04/20/22) Previously status post right trigger thumb release (03/20/17) Flexor ten osynovitis of finger 772997749 M65.849 Right long finger flexor tendinitis (CSI: 08/16/2022) [id number] TY VARGAS PA-C [facility] [address] [place] [address] 12/27/2022 14:12:24 12/27/2022 15:23:59 Edema of lower extremity 938994069 R60.0 Patient's symptoms today consistent likely with [...] persistent swelling of the right lower leg. [id number] BETO VALENTE MD [facility] [address] [address] 05/22/2023 15:53:59 05/22/2023 17:28:21 Bilateral osteoarthritis of knees 0359272477 05929 M17.0 [id number] EMMANUELLE Andrew MD [facility] [address] [address] 11/21/2023 07:50:13 11/21/2023 08:43:17 Pain of left knee joint 1622818377 12040 M25.562 Osteoarthr itis of left knee joint 2493546168 64337 M17.12 Hide he does have advanced degenerati [...] Type 2 zulma betes mellitus without complication 755219725 E11.9 A1c 6.6 by patient report. Currently maintained on metformin, Ozempic, and Jardiance. We will recheck her A1c and fructosami ne prior to surgical scheduling . Coronary arteriosclerosis 42026295 I25.10 Recent history of PCI x 4 [...] scheduling . History of percutaneous coronary intervention 929788383 Z98.890 [id number] EMMANUELLE Andrew MD [facility] [address] [address] 02/20/2024 07:55:37 02/20/2024 09:45:24 Pain of left knee joint 6558693208 95396 M25.562 Osteoarthr itis of left knee joint 3554899774 26195 M17.12 ASSESSMENT : DJD LEFT knee PLAN:The patient has end stage osteoarthr itis of the LEFT knee. The patient has failed > 3 [...] potential cost sharing responsibi lities; only one critical access hospital er can furnish and bill for PCM services during a calendar month, and the patient can stop these services at any time. The patient understand s and has verbally consented to accept PCM services and has been provided a copy of a written explanatio n of this service today. Surgery date: [facility]-24[facility] equipment: [employer] , press-fitP re-op clearance: PASSOther medical clearance: none Shahida AlatorreDV T prophylaxi s: Resume ASA/Plavix , TEDAdmissi on status: OUTPATIENT Discharge plan: overnight admissionP T: KORT Allergies: otherSkin testing: No Type 2 zulma betes mellitus without complication [id number] E11.9 A1c 6.6 by patient report. Currently maintained on metformin, Ozempic, and Jardiance. We will recheck her A1c and fructosami ne prior to surgical scheduling . Coronary arteriosclerosis 66886328 I25.10 Recent history of PCI x 4 [...] for cardiac events following elective TKA, including UT, arrhythmia s, and sudden cardiac . History of percutaneous coronary intervention 164011352 Z98.890 [id number] EMMANUELLE Andrew MD [facility] [address] [place] [address] 04/11/2024 13:40:11 04/12/2024 10:02:00 [id number] EMMANUELLE Andrew MD SURGERY SCHEDULE [address] [place] [address] 04/17/2024 14:53:45 04/24/2024 14:00:07 [id number] ANUJ KIRAN PA-C [facility] [address] [place] [address] 05/08/2024 10:28:14 05/08/2024 11:14:52 History of total knee arthroplasty 6251151349 105 Z96.652 Patient is 3 weeks status post left TKA and doing very well at this time. No complaints or concerns today. She has transition to outpatient physical therapy with [facility] in [place] . Highly encouraged to continue to focus [...] begin working on strengthen ing the leg; weemphasi ed the importance of continuing their HEP to build and maintain strength. Wereviewed scar massages and tissue mobilizati on. RTC in 3 weeks for routine 6 week post op follow up with radiograph s. [id number] ANUJ KIRAN PA-C [facility] [address] [place] [address] 05/29/2024 09:12:59 05/29/2024 10:24:40 History of total knee arthroplasty 9589698729 105 Z96.652 Patient now 6 weeks status post left TKA. She continues to do very well with no complaints or concerns. Range of motion goals have been met. Okay to submerge incision. Resume normal activities as tolerated. Patient works at [employer] and has plans to return to work in [facility] 4 weeks which I do think [...] status. Long-leg radiograph s will be obtained. [id number] ANUJ KIRAN PA-C [facility] [address] [place] [address] 06/26/2024 08:29:00 06/26/2024 09:18:34 History of total knee arthroplasty 8910995541 105 Z96.652 Patient now 9 weeks status post left TKA. Over the weekend she had increased her activity with some home chores had a slight increase in some discomfort but otherwise still doing well at this time. No restrictio ns, she may return to work in 3 weeks at this time. She works at [employer]. She is planning tentativel y to schedule [...] 1 year or sooner if symptoms warrant. [id number] ANUJ KIRAN PA-C [facility] [address] [place] [address] 07/22/2024 07:53:25 07/22/2024 08:21:23 History of total knee arthroplasty 4509015819 105 Z96.652 Zehra he is now 13 [...] ID Gregorio Member ID Guarantor Name 02/25/2022 [facility] Brennon Zehra S Sanor 02/21/2022 [facility] Brennon Zehra S Sanor 07/19/2024 1 [employer] [id number] A Zehra S Sanor [id number] Zehra S Sanor 03/15/2019 [facility] Brennon Zehra S Sanor 05/22/2023 [facility] Brennon Zehra S Sanor 07/05/2024 1 [employer]MOVED TO [employer]) Zehra S Sanor Zehra S Sanor Notes Date Note Type Note Provider Name and Address Organization Details Recorded Time 05/08/2024 text/html 05/08/24Patient i s 3 weeks s/p L TKA. Surgery date 04/17/24Pain is improvingCurrently taking no doses per day of narcotic.Ambulating with no assistive devicePT: outpatient Denies fevers, chills, or wound drainage.They do not request a refill of pain medicine. ANUJ KIRAN PA-C [address] [place], [address], [facility] 05/08/2024 11:15:32 05/29/2024 text/html 05/27/24Patient i s 6 weeks s/p L TKA. DOS 04/17/24Pain is improvingCurrently taking doses per day of narcotic.Ambulating with no assistive devicePT: outpatient Denies fevers, chills, or wound drainage.They do not request a refill of pain medicine. 05/08/24Patient is 3 weeks s/p L TKA. Surgery date 04/17/24Pain is improvingCurrently taking no doses per day of narcotic.Ambulating with no assistive devicePT: outpatient Denies fevers, chills, or wound drainage.They do not request a refill of pain medicine. ANUJ KIRAN PA-C [address] [place], [id number], [facility] 05/29/2024 10:25:59 06/26/2024 text/html 06/26/24Patient i s 9 weeks s/p L TKA. DOS 04/17/24Pain is improving. Rates the pain 5/10 today.Currently taking no doses per day of narcotic.Ambulating with no assistive devicePT: outpatient. Going well Denies fevers, chills, or wound drainage.They do not request a refill of pain medicine. Operative cultures 05/27/24Patient is 6 weeks s/p L TKA. DOS 04/17/24Pain is improvingCurrently taking doses per day of narcotic.Ambulating with no assistive devicePT: outpatient Denies fevers, chills, or wound drainage.They do not request a refill of pain medicine. 05/08/24Patient is 3 weeks s/p L TKA. Surgery date 04/17/24Pain is improvingCurrently taking no doses per day of narcotic.Ambulating with no assistive devicePT: outpatient Denies fevers, chills, or wound drainage.They do not request a refill of pain medicine. ANUJ KIRAN PA-C [address] [place], [id number], [facility] 06/26/2024 09:19:24 07/22/2024 text/html 07/22/24Patient is 14 weeks s/p L TKA. DOS 04/17/24Pain is improvingCurrently taking no doses per day of narcotic.Ambulating with no assistive devicePT: HEP Denies fevers, chills, or wound drainage. They do not request a refill of pain medicine. Operative cultures Not Obtained 06/26/24Patient is 9 weeks s/p L TKA. DOS 04/17/24Pain is improving. Rates the pain 5/10 today.Currently taking no doses per day of narcotic.Ambulating with no assistive devicePT: outpatient. Going well Denies fevers, chills, or wound drainage.They do not request a refill of pain medicine. Operative cultures 05/27/24Patient is 6 weeks s/p L TKA. DOS 04/17/24Pain is improvingCurrently taking doses per day of narcotic.Ambulating with no assistive devicePT: outpatient Denies fevers, chills, or wound drainage.They do not request a refill of pain medicine. 05/08/24Patient is 3 weeks s/p L TKA. Surgery date 04/17/24Pain is improvingCurrently taking no doses per day of narcotic.Ambulating with no assistive devicePT: outpatient Denies fevers, chills, or wound drainage.They do not request a refill of pain medicine. ANUJ KIRAN PA-C [address] [place], [address], [facility] 07/22/2024 09:51:17 OBGyn Episode No OBEpisode recorded.
== END 2025-04-10 23:59 | disposition home or self-care (01) ==
LOC: LAB.DROPOF 04-11 13:20
PROVIDERS: PCP Podiatrist; Visit Provider Podiatrist
DX: Z98.890 Other specified postprocedural states (principal)
CPT/HCPCS: 87070; 87077; 87106; 87205

== ENCOUNTER 2025-05-20 14:14 | Outpatient (CLI) | payer BC, SELFPAY ==
--- OUTSIDE RECORDS SUMMARY | 2025-04-21 10:00 | XMS_ITS | Encounter Summary ---
Author Organization [facility] Address [address] [place] [id number] Phone [email or web address] Care Team Providers Care Aircraft Electronics Technical Officer Name Role Phone No, Provider Primary Care Provider Unavailabl e Reason for Visit * Reason Comments Eye Exam Personal eye exam. 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); Nuclear sclerosis of both eyes Social History Tobacco Use Types Packs/Day Years Used Date Smoking Tobacco: Former Cigarettes Q uit: 2013 Smokeless Tobacco: Never Intimate Partner Violence Answer Date R ecorded Insults You Not on file 02/24/2021 Threatens You Not on file 02/24/2021 Screams at You Not on file 02/24/2021 Physically Hurt Not on file 02/24/2021 Intimate Partner Violence Score Not on file 02/24/2021 Depression Answer Date Recorded PHQ Total Score 0 08/27/2022 Stress Answer Date Recorded Stress in your Life Not on file 09/15/2024 Dealing with Stress 3 09/15/2024 Comments No Sex and Gender Information Value Date Recorded Sex Assigned at Not on file Legal Sex Female 12:16 PM CDT Gender Identity Not on file Sexual Orientation Not on file documented as of this encounter Progress Notes * Ruddy Castillo, OD - 04/21/2025 10:00 AM EDT Subjective: Zehra Shepherd is a 59 y.o. female. Chief Complaint Eye Exam HPI Eye Exam Additional comments: Personal eye exam. Comments Recent amputation of toe. Currently undergoing hyperbaric oxygen to improve wound healing. Reports HbA1C 7.0%. Last edited by Ruddy Castillo, OD on 04/21/2025 10:32 AM. ROS Positive for: Eyes (history of macular drusen OU - takes AREDS2 vitamins) Negative for: Constitutional, Gastrointestinal, Neurological, Skin, Genitourinary, Musculoskeletal,HENT, Endocrine, Cardiovascular, Respiratory, Psychiatric, Allergic/Imm, Heme/Lymph Last edited by Ruddy Castillo, OD on 04/21/2025 10:34 AM. - DM2 controlled with three meds Visual Acuity Visual Acuity (Snellen - Linear) Right Left Dist sc 20/25 20/25 Dist cc 20/20 20/25 Correction: Glasses Pupils Pupils Pupils Dark Light APD Right PERRL 6 3 None Left PERRL 6 3 None Extraocular Movement Extraocular Movement Right Left Full, Ortho Full, Ortho Confrontational Visual Summers Visual Summers Left Right Full Full Tonometry Tonometry (Non-contact air puff, 10:10 AM) Right Left Pressure 14 16 Color Color Right Left Ishihara 09/23 09/23 Wearing Rx Wearing Rx Sphere Cylinder [place] Add Right [place] -1.00 105 +2.25 Left +1.75 -1.00 073 +2.25 Type: LYN Keratometry Keratometry (Automated) K1 [place] K2 [place] Mires Right 41.75 010 43.00 100 Normal Left 41.00 178 42.75 088 Normal Manifest Refraction Manifest Refraction Sphere Cylinder [place] Dist [place] Add Near [place] Right +0.25 -1.00 105 20/20 +2.25 J1+ Left +1.75 -1.00 073 20/25 +2.25 J1 Eyeglass Final Rx Eyeglass Final Rx Sphere Cylinder [place] Dist VA Add Near [place] Right +0.25 -1.00 105 20/20 +2.25 J1+ Left +1.75 -1.00 073 20/25 +2.25 J1 Type: PAL Expiration Date: 04/21/2026 Dilation Dilation The benefits of dilated retinal exam explained to patient. The patient refuses dilation ophthalmoscopic exam. Main Ophthalmology Exam External Exam Right Left External Normal Normal Slit Lamp Exam Right Left Lids/Lashes Normal Normal Conjunctiva/Sclera White and quiet White and quiet Cornea Clear Clear Anterior Chamber Deep and quiet Deep and quiet Iris Round and reactive Round and reactive Lens Trace Nuclear sclerosis Trace Nuclear sclerosis Vitreous Normal Normal Fundus Exam Right Left Disc Normal Normal C/D Ratio 0.2 0.2 Macula Soft drusen Soft drusen Vessels Normal, no Retinopathy Normal, no Retinopathy <div id= [email or web address] ></div> Zehra was seen today for eye exam. 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 - recommend annual eye exams - importance of continuing meds to control BS - continue visits with PCP every 3 months Treatment with hyperbaric oxygen (for wound healing) - no changes in corneal curvature or thickness - recommend another visit in 1 month Ruddy Castillo OD documented in this encounter Plan of Treatment Not on file documented as of this encounter Visit Diagnoses Diagnosis Drusen of macula of both eyes- Primary Nuclear sclerosis of both eyes documented in this encounter Care Teams Aircraft Electronics Technical Officer Relationship Specialty Start Date End Date No, Provider [place], [place] PCP - General Family Medicine 09/23/19 documented as of this encounter
--- OUTSIDE RECORDS SUMMARY | 2025-05-20 14:17 | XMS_ITS | Encounter Summary ---
Author Organization [employer] ([place], [place], [place], [place]) Address [address] [place] [address] Care Team Providers Care Print Binding Worker Name Role Phone Amalia Walter Primary Care Provider [phone] Encounter Details Date Type Department Care Team (Late st Contact Info) Description 01/28/2021 Transcribed Document [facility] Family Medicine [address] [place] [address] ProviderEmely MD [address] [place] [address] Social History Tobacco Use Types Packs/Day Years Used Date Smoking Tobacco: Never Assessed Comments Unknown Sex and Gender Information Value Date Recorded Sex Assigned at Female 05/12/2022 6:35 PM CDT Legal Sex Female 7:17 PM CDT Gender Identity Female 05/12/2022 6:35 PM CDT Sexual Orientation Not on file documented as of this encounter Miscellaneous Notes * Cerner Conversion Note - Emely ProviderMD - 01/28/2021 12:31 PM CDT [facility] Main OR IntraOp Summary Primary Physician: NORMA FOSTER DPM-POD Finalized Date/Time: 02/01/21 11:07:37 Pt. Name: ZEHRA ESPINO /Sex: 1965 Female Med Rec #: [id number] Physician: NORMA FOSTER DPM-POD Financial #: [id number] Pt. Type: O Room/Bed: Admit/Disch: 01/28/21 08:17:00 - 01/28/21 14:43:00 Institution: [facility] IntraOp Case Attendance Entry 1 Entry 2 Entry 3 Case Attendee NORMA FOSTER DPM-Lisbeth Puckett, JASMINE FRANKLIN RN Role Performed Surgeon/Proceduralist, Group Worker, First Group Worker, Second First Time In 01/28/21 12:13:00 01/28/21 12:13:00 01/28/21 12:32:00 Time Out 01/28/21 13:18:00 01/28/21 13:18:00 01/28/21 13:18:00 Procedure Hammer Toe Hammer Toe Hammer Toe Repair(Right), Neuroma Repair(Right), Neuroma Repair(Right), Neuroma Excision Soft Tissue Excision Soft Tissue Excision Soft Tissue Other Attendee ORIENTEE Superficial Wound Closed By: Last Modified By: Lisbeth Haas RN Proffitt, Debbie, RN Proffitt, Debbie, RN 01/28/21 13:18:30 01/28/21 13:18:17 01/28/21 13:18:17 Entry 4 Entry 5 Entry 6 Case Attendee Joan De León RN OTHER, ATTENDEE #1 OTHER, ATTENDEE #2 Role Performed Other Scrub, First Scrub, First Time In 01/28/21 00:00:00 01/28/21 12:13:00 01/28/21 12:36:00 Time Out 01/28/21 13:18:00 01/28/21 12:36:00 01/28/21 13:18:00 Procedure Hammer Toe Hammer Toe Hammer Toe Repair(Right), Neuroma Repair(Right), Neuroma Repair(Right), Neuroma Excision Soft Tissue Excision Soft Tissue Excision Soft Tissue Other Attendee IN FOR SET-UP [facility] Superficial Wound Closed By: Last Modified By: Lisbeth Haas RN Proffitt, Debbie, RN Proffitt, Debbie, RN 01/28/21 13:18:17 01/28/21 13:18:17 01/28/21 13:18:17 Entry 7 Entry 8 Entry 9 Case Attendee OTHER, ATTENDEE #3 TAE TYLER, ANSHUL-ANS YUSRA DOSHI MD-ANS Role Performed Vendor TUMBLER OPERATOR/Nurse Accounting Coordinator Anesthesiologist of Record Time In 01/28/21 12:13:00 01/28/21 12:13:00 01/28/21 12:13:00 Time Out 01/28/21 13:01:00 01/28/21 13:18:00 01/28/21 13:18:00 Procedure Hammer Toe Hammer Toe Hammer Toe Repair(Right), Neuroma Repair(Right), Neuroma Repair(Right), Neuroma Excision Soft Tissue Excision Soft Tissue Excision Soft Tissue Other Attendee [facility] Superficial Wound Closed By: Last Modified By: Lisbeth Haas, Lisbeth Lynch, Lisbeth Lynch RN 01/28/21 13:18:17 01/28/21 13:18:17 01/28/21 13:18:17 [facility] IntraOp Case Attendance Audit 01/28/21 13:18:30 Director Report: PROFITDE Modifier: PROFITDE <+> 1 Procedure 01/28/21 13:18:17 Director Report: PROFITDE Modifier: PROFITDE <+> 1 Time Out 2 <+> Time Out 2 <*> Procedure Hammer Toe Repair(Right), Neuroma Excision Soft Tissue 3 <+> Time Out 3 <*> Procedure Hammer Toe Repair(Right), Neuroma Excision Soft Tissue 4 <+> Time Out 4 <*> Procedure Hammer Toe Repair(Right), Neuroma Excision Soft Tissue 5 <*> Procedure Hammer Toe Repair(Right), Neuroma Excision Soft Tissue 6 <+> Time Out 6 <*> Procedure Hammer Toe Repair(Right), Neuroma Excision Soft Tissue 7 <*> Procedure Hammer Toe Repair(Right), Neuroma Excision Soft Tissue 8 <+> Time Out 8 <*> Procedure Hammer Toe Repair(Right), Neuroma Excision Soft Tissue 9 <+> Time Out 9 <*> Procedure Hammer Toe Repair(Right), Neuroma Excision Soft Tissue 01/28/21 13:02:00 Director Report: PROFITDE Modifier: PROFITDE 7 <+> Time Out 7 <*> Procedure Hammer Toe Repair(Right), Neuroma Excision Soft Tissue 01/28/21 12:40:44 Director Report: PROFITDE Modifier: PROFITDE <+> 8 Case Attendee <+> 8 Role Performed <+> 8 Time In <+> 8 Procedure <+> 9 Case Attendee <+> 9 Role Performed <+> 9 Time In <+> 9 Procedure [facility] IntraOp Case Times Entry 1 Patient In Room Time 01/28/21 12:13:00 Out Room Time 01/28/21 13:18:00 Anesthesia Start Time 01/28/21 12:13:00 Stop Time 01/28/21 13:18:00 Anesthesia Ready 01/28/21 12:13:00 Surgery / Procedure Times Start Time 01/28/21 12:31:00 Stop Time 01/28/21 13:14:00 Last Modified By: Lisbeth Haas RN 01/28/21 13:18:07 [facility] IntraOp Case Times Audit 01/28/21 13:18:07 Director Report: PROFITDE Modifier: PROFITDE <+> 1 Out Room Time <+> 1 Stop Time <+> 1 Stop Time [facility] IntraOp Cautery Entry 1 ESU Identification Cautery Type Monopolar ESU ID Number [id number] ID Type Hospital Number Cautery Settings Cut Setting 30 Coag Setting 30 ESU Grounding Pad Ground Pad Type Adult Grounding Pad Site Right thigh Grounding Pad Lisbeth Haas RN Applied By Grounding Pad Site Warm, dry and intact Skin Condition Before Cautery Grounding Pad Site Unchanged Skin Condition After Cautery Last Modified By: Lisbeth Haas RN 01/28/21 12:43:00 [facility] IntraOp Communication Entry 1 Entry 2 Communication To Family/Significant other Family/Significant other Comment INFORMED OF START CLOSING Communication By JASMINE KEENE, JASMINE FRANKLIN, IVAN Date and Time 01/28/21 12:35:00 01/28/21 13:00:00 Last Modified By: Lisbeth Haas RN Proffitt, Debbie, RN 01/28/21 12:38:25 01/28/21 13:00:18 [facility] IntraOp Communication Audit 01/28/21 13:00:18 Director Report: PROFITDE Modifier: PROFITDE <+> 2 Communication By <+> 2 Date and Time <+> 2 Communication To <+> 2 Comment [facility] IntraOp Counts Verification Entry 1 Procedure Hammer Toe Repair(Right), Neuroma Excision Soft Tissue Count Info Count Type Sponge, Sharps, Miscellaneous Counts Verification Baseline/pre-procedure Sequence Count Results Not Applicable Counts Performed By Count Performed By OTHER, ATTENDEE #1 (Scrub) Count Performed By Joan De León RN (RN) Last Modified By: Lisbeth Haas RN 01/28/21 12:38:05 [facility] IntraOp Counts Final Entry 1 Entry 2 Procedure Hammer Toe Hammer Toe Repair(Right), Neuroma Repair(Right), Neuroma Excision Soft Tissue Excision Soft Tissue Final Count Info Count Type Sponge, Sharps, Sponge, Sharps, Miscellaneous Miscellaneous Counts Verification Skin Closure/end of Skin Closure/end of Sequence procedure procedure Count Results Correct, surgeon Correct, surgeon notified notified If Incorrect or Waived complete the Counts Action Taken form: If Intentional Retention, complete the Intential Retention form: Counts Performed By Count Performed By OTHER, ATTENDEE #2 JASMINE KEENE RN (Scrub) Count Performed By JASMINE KEENE RN HICKAM, ANNA-LIESE, RN (RN) Last Modified By: Lisbeth Haas RN Proffitt, Debbie, RN 01/28/21 12:41:55 01/28/21 13:00:02 [facility] IntraOp Counts Final Audit 01/28/21 13:00:02 Director Report: PROFITDE Modifier: PROFITDE <+> 2 Procedure <+> 2 Count Type <+> 2 Count Results <+> 2 Count Performed By (Scrub) <+> 2 Count Performed By (RN) <+> 2 Counts Verification Sequence [facility] IntraOp Cultures and Spec Summary Entry 1 Cultrures and Specimens Specimen Ordered: Yes Test(s) Routine/Path-Lab Requested/Final Disposition Last Modified By: Lisbeth Haas RN 01/28/21 12:42:03 [facility] IntraOp Departure from OR Entry 1 Integumentary Assessment Integumentary WDL with patient Assessment WDL specific variances Patient's Normal OPSITE Integumentary Variance(s) Transfer/Handoff Transfer to PACU Phase II Handoff Method Phone call Handoff Reported to VINOD LANDIN RN Post-op Transport Stretcher/Gurney Via Patient Transport JASMINE KEENE RN Accompanied by Last Modified By: Lisbeth Haas RN 01/28/21 13:12:31 [facility] IntraOp Departure from OR Audit 01/28/21 13:12:31 Director Report: PROFITDE Modifier: PROFITDE <+> 1 Handoff Reported to [facility] IntraOp Dressing and Packing Entry 1 Type Dressing Location OPSITE Wound Dressing Item 4x4's, Ronny, Kerlix/Regla, Adaptic Applied By NORMA FOSTER DPM-POD Other Comments BETADINE SOLUTION Last Modified By: Lisbeth Haas RN 01/28/21 13:09:21 [facility] IntraOp Dressing and Packing Audit 01/28/21 13:09:21 Director Report: PROFITDE Modifier: PROFITDE 1 <*> Wound Dressing Item 4x4's, Ronny, Kerlix/Regla, Adaptic, Steristrip 01/28/21 12:52:36 Director Report: PROFITDE Modifier: PROFITDE <+> 1 Location [facility] IntraOp Fire Risk Assessment Entry 1 Fire Info Surgical Site or 0- No Incision Above the Xyphoid Open O2 Source 1- Yes (Mask or Cannula) Available Ignition 1- Yes (ESU, Laser, Light Source) Fire Risk 2 Assessment Score Fire Score Fire Risk Yes Assessment Complete Fire Risk Lisbeth Haas RN Assessment Verified By Fire Risk 01/28/21 12:30:00 Assessment Verified Date/Time Fire Risk Standard Fire Yes Safety Precautions Followed Last Modified By: Lisbeth Haas RN 01/28/21 12:44:00 [facility] IntraOp General Case Clerk General 1 Case Information OR OR 04 [facility] Case Level 1 Room Verified Yes Wound Class I - Clean Specialty SN Podiatry Anesthesia Type MAC ASA Class 2 Diagnosis Preop Diagnosis [place] RIGHT FOOT, PLANTAR PLATE TEAR AND [place]'S NEUROMA RIGHT FOOT Postop Same As Preop No Postop Diagnosis SEE SURGEON'S POSTOP NOTES Last Modified By: Lisbeth Haas RN 01/28/21 12:47:21 [facility] IntraOp General Case Data Audit 01/28/21 12:47:21 Director Report: PROFITDE Modifier: PROFITDE 1 <*> OR OR 06 [facility] 1 <+> ASA Class 1 <+> Anesthesia Type 1 <+> Postop Same As Preop 1 <+> Preop Diagnosis 1 <+> Postop Diagnosis 1 <+> Room Verified [facility] IntraOp Implant Log Entry 1 Type Implant (Synthetic) Implant Log Implant Type Hardware Implant [employer]Z HELMS [id number] Identification Description Implant Quantity 1 Implant Site OPSITE Implant [facility]:Schmitz Identification Med Tech Recruitment Assistant Name: Implant [id number] Identification Catalog Number Implant Has an No Expiration Date Tissue Implant Last Modified By: Lisbeth Haas RN 01/28/21 13:10:36 [facility] IntraOp Implant Log Audit 01/28/21 13:10:36 Director Report: KELSIDE Modifier: PROFITDE 1 <*> Implant Identification Description CORTEZ HOG [id number] <+> Implant Has an Expiration Date [facility] IntraOp Intraoperative Assessment Entry 1 Handoff Method Online nursing summary Valid History / Yes Physical in Chart Preoperative Yes Checklist Reviewed/Evaluated Allergies Reviewed Yes Patient is Latex No Sensitive Isolation Not applicable Precautions Noted Level of WDL Consciousness (WDL = Alert, Oriented to Person, Place, and Time) Skin Assessment Yes Verified Present Upon IVs Arrival to OR Last Modified By: Lisbeth Haas RN 01/28/21 12:44:56 [facility] IntraOp Intraoperative Equipment Entry 1 Equipment Intraop Monitoring Electrocardiogram Five lead placement (ECG) Electrode Placement Blood Pressure Non-Invasive BP Device Source Blood Pressure Arm, right upper Location Pulse Oximeter Hand, left Probe Site Antiembolic Devices Scopes Photo/Video Documentation Last Modified By: Lisbeth Haas RN 01/28/21 12:47:46 [facility] IntraOp Medication Admin Entry 1 Medication/Irrigant MARTI IRR NACL 0.9PCT 2000ML [id number] Route of IRRIGATION Administration Dose Dose 100 Unit of Measure ml Administered By NORMA FOSTER DPM-POD Procedure Irrigation Last Modified By: Lisbeth Haas RN 01/28/21 12:56:29 [facility] IntraOp Patient Positioning Entry 1 Procedure Hammer Toe Repair(Right), Neuroma Excision Soft Tissue Body Position Supine Left Arm Position Resting at side Right Arm Position Resting at side Left Leg Position Uncrossed, parallel Right Leg Position Uncrossed, parallel Feet Uncrossed Yes Pressure Points Yes Checked Positioning Devices Foot Rest, Pillows Device Position FOAM FOOT REST, SAFTETY BELT ACROSS ABDOMEN Positioned By TAE TYLER CRNA-ANS, Lisbeth Haas RN Position Verified Positioning Yes Verified by Anesthesia Positioning Yes Verified by Surgeon Last Modified By: Lisbeth Haas RN 01/28/21 12:49:26 [facility] IntraOp Sign In Entry 1 Patient, Site, Yes Procedure Identified Surgical Consent Yes Confirmed Relevant Surgical Yes Documents Available Surgical Site Yes Marked by person performing procedure Anesthesia Machine Yes Check Completed Medication Checks Yes Completed Allergies Yes Airway Difficult No Airway/Aspiration Risk Difficult No Airway/Aspiration Intervention Equipment Available Blood Loss Risk No Blood Loss No Intervention Equipment Prepared and Ready Blood Identifiers Not applicable Verified Per Policy Hypothermia Risk Yes Warming Measures Yes Taken Last Modified By: Lisbeth Haas RN 01/28/21 12:49:41 [facility] IntraOp Sign Out Entry 1 RN Confirmation Surgical Yes Procedure(s) Identified Instrument, Sponge Yes and Sharps Counts Correct/Documented Equipment Problems N/A Documented Specimen Labeled Yes Correctly Urinary Catheter N/A Documented in IView Silver Patient Yes Recovery Concerns Reviewed with Anesthesia Provider, Surgeon and RN Silver Patient Yes Management Concerns Reviewed with Anesthesia Provider, Surgeon and RN Safety Checklist Yes Elements Complete? RN Sign Out Lisbeth Haas RN Signature RN Sign Out 01/28/21 13:18:00 Signature Date/Time Plan of Care Outcome - Fire Risk OUTCOME STATEMENT: Goal met Patient is free from injury related to surgical fire Plan of Care Outcome - Pt Positioning OUTCOME STATEMENT: Goal met Absence of signs and symptoms of positioning injury. Plan of Care Outcome - Skin Prep OUTCOME STATEMENT: Goal met Intraoperative care is consistent with measures to prevent infection Plan of Care Outcome - Xray/Images OUTCOME STATEMENT: Goal met Absence of observable signs or symptoms of radiation injury Plan of Care Outcome - Counts OUTCOME STATEMENT: Goal met Absence of signs and symptoms of injury related to extraneous objects Last Modified By: Lisbeth Haas RN 01/28/21 13:18:15 [facility] IntraOp Skin Prep Entry 1 Procedure Hammer Toe Repair(Right), Neuroma Excision Soft Tissue Prescribed Yes Pre-Surgical Prep Completed Prep Area RIGHT FOOT Intraop Prep Integumentary WDL Assessment WDL Prep Agents Betadine scrub, Betadine solution Prep by Lisbeth Haas RN Hair Removal Methods No hair removal performed Last Modified By: Lisbeth Haas RN 01/28/21 12:50:10 [facility] IntraOp Surgical Procedures Entry 1 Entry 2 Procedure Hammer Toe Repair Neuroma Excision Soft Tissue Modifiers Right Additional (RT 2ND TOE [place] Procedure CORRECTION, Description METATARSOPHALALNGEAL JOINT CAPSULOTOMY, PLANTAR PLATE REAPIR, RT FOOT EXCISION OF NEUROMA) Primary Procedure Yes No Primary Surgeon NORMA FOSTER DPM-POD NORMA FOSTER DPM-POD Start 01/28/21 12:31:00 01/28/21 12:31:00 Stop 01/28/21 13:14:00 01/28/21 13:14:00 Physician States Cecum Reached Anesthesia Type MAC MAC Specialty SN Podiatry SN Podiatry Wound Class I - Clean I - Clean Last Modified By: Lisbeth Haas RN Proffitt, Debbie, RN 01/28/21 13:18:08 01/28/21 13:18:08 [facility] IntraOp Surgical Procedures Audit 01/28/21 13:18:08 Director Report: PROFITDE Modifier: PROFITDE <+> 1 Stop <+> 2 Stop [facility] IntraOP Time Out Entry 1 Procedure to be Hammer Toe Performed Repair(Right), Neuroma Excision Soft Tissue Time Out Time Out Pause Time 01/28/21 12:30:00 All activity Yes suspended (unless life threatening emergency) Team Verbally Correct patient Confirms Information identity, Correct side and site are marked, Consent form is present and accurate, Agreement on the procedure to be done, Correct patient position, Relevant images/results properly labeled/appropriately displayed, Confirm antibiotics have been administered, Confirm the skin prep has dried, Confirm prosthesis/implant/devic e is present, Performed in location of procedure after prepped/draped, Performed before each procedure if multiple procedures, Reconcile problems if responses among team members differ Antibiotic Yes Prophylaxis Administered Or In Progress Within the Last 60 Minutes Beta Pete N/A Administered Venous N/A Thromboembolism Prophylaxis Required Anticipated Critical Events Surgeon None expected Anesthesia Provider Patient specific concerns Nursing Assures Sterility of instruments Essential Imaging N/A Labeled and Displayed Last Modified By: Lisbeth Haas RN 01/28/21 12:44:34 [facility] IntraOp Tourniquet Entry 1 Type Pneumatic Serial/Unit Number [id number] Setting 250 Pheumatic Yes Tourniquet Checked Per Protocol Size 18 inches Placement Ankle, right Skin Protection - Yes Padded Under Cuff Applied By Lisbeth Haas RN Removed By NORMA FOSTER DPM-POD Times Start Time 01/28/21 12:30:00 Stop Time 01/28/21 13:10:00 Total Time 40 calculated manually (Mins) Last Modified By: Lisbeth Haas RN 01/28/21 13:11:05 [facility] IntraOp Tourniquet Audit 01/28/21 13:11:05 Director Report: PROFITDE Modifier: PROFITDE <+> 1 Total Time calculated manually (Mins) <+> 1 Stop Time Case Comments <None> Finalized By: ARIELLE MASTERS Document Signatures Signed By: Lisbeth Haas RN 01/28/21 13:18 ARIELLE MASTERS 02/01/21 11:07 Unfinalized History Date/Time Username Reason for Unfinalizing Freetext Reason for Unfinalizing 02/01/21 11:05 MARYLOU Correct Billing documented in this encounter Plan of Treatment Not on file documented as of this encounter Visit Diagnoses Not on filedocumented in this encounter Care Teams Print Binding Worker Relationship Specialty Start Date End Date Amalia Walter [address] [place] [address] PCP - General 04/09/24 documented as of this encounter
--- OUTSIDE RECORDS SUMMARY | 2025-05-20 14:17 | XMS_ITS | Encounter Summary ---
Author Organization [email or web address] ([place], [place], [place], [place]) Address [address] [place] [address] Care Team Providers Care Health And Safety Specialist Name Role Phone Amalia Walter Primary Care Provider [phone] Encounter Details Date Type Department Care Team (Late st Contact Info) Description 01/28/2021 Transcribed Document [facility] [place] Medicine [address] [place] [address] ProviderEmely MD [address] [place] [address] Social History Tobacco Use Types [...] Emely ProviderMD - 01/28/2021 12:31 PM CDT [facility] Main OR Preop Summary Primary Physician: NORMA FOSTER DPM-POD Finalized Date/Time: 01/28/21 13:40:47 Pt. Name: ZEHRA SHEPHERD /Sex: 1965 Female Med Rec #: [id number] Physician: NORMA FOSTER DPM-POD Financial #: [id number] Pt. Type: O Room/Bed: Admit/Disch: 01/28/21 08:17:00 - Institution: [facility] PreOp Case Times Entry 1 In Preop 01/28/21 08:46:00 Ready for Holding n/a Room Patient Ready for 01/28/21 10:15:00 Surgery Patient Out of Preop 01/28/21 12:10:00 Patient Out of n/a Holding Room Last Modified By: DEB DANIELS RN 01/28/21 13:40:41 [facility] PreOp Case Times Audit 01/28/21 13:40:41 Energy Advisor: EARNESTDWIGHTJulio Cesar Modifier: [email or web address] <+> 1 Patient Out of Preop Finalized By: DEB DANIELS RN Document Signatures Signed By: DEB DANIELS RN 01/28/21 13:40 Electronically signed by Rebecca [facility] Conversion Fire Claims Adjuster Cerner at 02/28/2023 7:31 PM CDT documented in this encounter Plan of Treatment Not on file documented as of this encounter Visit Diagnoses Not on filedocumented in this encounter Care Teams Health And Safety Specialist Relationship Specialty Start Date End Date JakobSarah connorvishnuangi [address] [place] [address] PCP - General 04/09/24 documented as of this encounter
--- OUTSIDE RECORDS SUMMARY | 2025-05-20 14:17 | XMS_ITS | Encounter Summary ---
Author Organization [employer] ([place], [place], [place], [place]) Address [address] [place] [address] Care Team Providers Care Enterprise Integration Developer Name Role Phone Amalia Walter Primary Care Provider [phone] Encounter Details Date Type Department Care Team (Late st Contact Info) Description 01/28/2021 Transcribed Document [facility] [place] Family Medicine [facility] [place] [address] ProviderEmely MD [address], [place] [id number] Social History Tobacco Use Types Packs/Day Years Used Date Smoking Tobacco: Never Assessed Comments Unknown Sex and Gender Information Value Date Recorded Sex Assigned at Female 05/12/2022 6:35 PM CDT Legal Sex Female 7:17 PM CDT Gender Identity Female 05/12/2022 6:35 PM CDT Sexual Orientation Not on file documented as of this encounter Miscellaneous Notes * Cerner Conversion Note - Emely Adams MD - 01/28/2021 2:28 PM CDT Patient Education Materials Follows: Hammer Toe Hammer toe is a change in the shape (a deformity) of your toe. The deformity causes the middle joint of your toe to stay bent. This causes pain, especially when you are wearing shoes. Hammer toe starts gradually. At first, the toe can be straightened. Gradually over time, the deformity becomes stiff and permanent. Early treatments to keep the toe straight may relieve pain. As the deformity becomes stiff and permanent, surgery may be needed to straighten the toe. What are the causes? Hammer toe is caused by abnormal bending of the toe joint that is closest to your foot. It happens gradually over time. This pulls on the muscles and connections (tendons) of the toe joint, making them weak and stiff. It is often related to wearing shoes that are too short or narrow and do not let your toes straighten. What increases the risk? You may be at greater risk for hammer toe if you: ??? Are female. ??? Are older. ??? Wear shoes that are too small. ??? Wear high-heeled shoes that pinch your toes. ??? Are a bridge worker. ??? Have a second toe that is longer than your big toe (first toe). ??? Injure your foot or toe. ??? Have arthritis. ??? Have a family history of hammer toe. ??? Have a nerve or muscle disorder. What are the signs or symptoms? The main symptoms of this condition are pain and deformity of the toe. The pain is worse when wearing shoes, walking, or running. Other symptoms may include: ??? Corns or calluses over the bent part of the toe or between the toes. ??? Redness and a burning feeling on the toe. ??? An open sore that forms on the top of the toe. ??? Not being able to straighten the toe. How is this diagnosed? This condition is diagnosed based on your symptoms and a physical exam. During the exam, your health care provider will try to straighten your toe to see how stiff the deformity is. You may also have tests, such as: ??? A blood test to check for rheumatoid arthritis. ??? An X-ray to show how severe the deformity is. How is this treated? Treatment for this condition will depend on how stiff the deformity is. Surgery is often needed. However, sometimes a hammer toe can be straightened without surgery. Treatments that do not involve surgery include: ??? Taping the toe into a straightened position. ??? Using pads and cushions to protect the toe (orthotics). ??? Wearing shoes that provide enough room for the toes. ??? Doing toe-stretching exercises at home. ??? Taking an NSAID to reduce pain and swelling. If these treatments do not help or the toe cannot be straightened, surgery is the next option. The most common surgeries used to straighten a hammer toe include: ??? Arthroplasty. In this procedure, part of the joint is removed, and that allows the toe to straighten. ??? Fusion. In this procedure, cartilage between the two bones of the joint is taken out and the bones are fused together into one longer bone. ??? Implantation. In this procedure, part of the bone is removed and replaced with an implant to let the toe move again. ??? Flexor tendon transfer. In this procedure, the tendons that curl the toes down (flexor tendons) are repositioned. Follow these instructions at home: ??? Take rfor-dta-tuzydfc and prescription medicines only as told by your health care provider. ??? Do toe straightening and stretching exercises as told by your health care provider. ??? Keep all follow-up visits as told by your health care provider. This is important. How is this prevented? Wear shoes that give your toes enough room and do not cause pain. ??? Do not wear high-heeled shoes. Contact a health care provider if: ??? Your pain gets worse. ??? Your toe becomes red or swollen. ??? You develop an open sore on your toe. This information is not intended to replace advice given to you by your health care provider. Make sure you discuss any questions you have with your health care provider. Document Revised: 10/12/2018 Document Reviewed: 02/22/2017 [employer] Patient Education ? 2020 [employer] General Anesthesia, Adult, Care After This sheet gives you information about how to care for yourself after your procedure. Your health care provider may also give you more specific instructions. If you have problems or questions, contact your health care provider. What can I expect after the procedure? After the procedure, the following side effects are common: ??? Pain or discomfort at the IV site. ??? Nausea. ??? Vomiting. ??? Sore throat. ??? Trouble concentrating. ??? Feeling cold or chills. ??? Weak or tired. ??? Sleepiness and fatigue. ??? Soreness and body aches. These side effects can affect parts of the body that were not involved in surgery. Follow these instructions at home: For at least 24 hours after the procedure: ??? Have a responsible adult stay with you. It is important to have someone help care for you until you are awake and alert. ??? Rest as needed. ??? Do not: ? Participate in activities in which you could fall or become injured. ? Drive. ? Use heavy machinery. ? Drink alcohol. ? Take sleeping pills or medicines that cause drowsiness. ? Make important decisions or sign legal documents. ? Take care of children on your own. Eating and drinking ??? Follow any instructions from your health care provider about eating or drinking restrictions. ??? When you feel hungry, start by eating small amounts of foods that are soft and easy to digest (bland), such as toast. Gradually return to your regular diet. ??? Drink enough fluid to keep your urine pale yellow. ??? If you vomit, rehydrate by drinking water, juice, or clear broth. General instructions ??? If you have sleep apnea, surgery and certain medicines can increase your risk for breathing problems. Follow instructions from your health care provider about wearing your sleep device: ? Anytime you are sleeping, including during daytime naps. ? While taking prescription pain medicines, sleeping medicines, or medicines that make you drowsy. ??? Return to your normal activities as told by your health care provider. Ask your health care provider what activities are safe for you. ??? Take tblz-oqt-rlxmgis and prescription medicines only as told by your health care provider. ??? If you smoke, do not smoke without supervision. ??? Keep all follow-up visits as told by your health care provider. This is important. Contact a health care provider if: ??? You have nausea or vomiting that does not get better with medicine. ??? You cannot eat or drink without vomiting. ??? You have pain that does not get better with medicine. ??? You are unable to pass urine. ??? You develop a skin rash. ??? You have a fever. ??? You have redness around your IV site that gets worse. Get help right away if: ??? You have difficulty breathing. ??? You have chest pain. ??? You have blood in your urine or stool, or you vomit blood. Summary ??? After the procedure, it is common to have a sore throat or nausea. It is also common to feel tired. ??? Have a responsible adult stay with you for the first 24 hours after general anesthesia. It is important to have someone help care for you until you are awake and alert. ??? When you feel hungry, start by eating small amounts of foods that are soft and easy to digest (bland), such as toast. Gradually return to your regular diet. ??? Drink enough fluid to keep your urine pale yellow. ??? Return to your normal activities as told by your health care provider. Ask your health care provider what activities are safe for you. This information is not intended to replace advice given to you by your health care provider. Make sure you discuss any questions you have with your health care provider. Document Revised: 11/02/2018 Document Reviewed: 06/15/2018 [employer] Patient Education ? 2020 [employer]. documented in this encounter Plan of Treatment Not on file documented as of this encounter Visit Diagnoses Not on filedocumented in this encounter Care Teams Enterprise Integration Developer Relationship Specialty Start Date End Date Amalia Walter [address] [place] [address] PCP - General 04/09/24 documented as of this encounter
--- OUTSIDE RECORDS SUMMARY | 2025-05-20 14:17 | XMS_ITS | Encounter Summary ---
Author Organization [employer] ([place], [place], [place], [place]) Address [address] [place] [address] Care Team Providers Care Slope Runner Name Role Phone Amalia Walter Primary Care Provider Encounter Details Date Type Department Care Team (Late st Contact Info) Description 01/28/2021 Transcribed Document [facility] [place] Family Medicine [address] [place] [address] ProviderEmely MD [address], [place] [id number] Social History Tobacco Use Types Packs/Day Years [...] Note - Emely Adams MD - 01/28/2021 1:37 PM CDT Patient: ZEHRA SHEPHERD Age: 55 Years Sex: Female : 1965 *Operation plantar plate repair right 2nd MPJ, hammertoe correction right 2nd digit, MPJ capsulotomy right 2nd digit, excision neuroma right 2nd interspace Anesthesia Type YUSRA GILBERT MD-ANS (Anesthesiologist of Record) YUSRA GILBERT MD-ANS (Anesthesiologist of Record) W POPLITEAL BLOCK Indication for Surgery plantar plate tear right foot, hammertoe right 2nd digit, pain right foot, neuroma right foot *Preoperative Diagnosis same *Postoperative Diagnosis same *Surgeon(s) Primary Surgeon NORMA FOSTER DPM-POD (Surgeon/Proceduralist, First) *Estimated Blood Loss < 20 cc *Findings hammertoe right 2nd digit, neuroma right foot, plantar plate tear right 2nd digit *Specimen(s) neuroma right foot Complications none Date of Service Date/Time of Service SN - Proc - Start Time: 01/28/21 12:31:00 (01/28/21 12:49:28) SN - Proc - Start Time: 01/28/21 12:31:00 (01/28/21 12:49:28) documented in this encounter Plan of Treatment Not on file documented as of this encounter Visit Diagnoses Not on filedocumented in this encounter Care Teams Slope Runner Relationship Specialty Start Date End Date Amalia Walter [address] [place] [address] PCP - General 04/09/24 documented as of this encounter
--- OUTSIDE RECORDS SUMMARY | 2025-05-20 14:18 | XMS_ITS | Encounter Summary ---
Author Organization [employer] ([place], [place], [place], [place]) Address [address] [place] [address] Care Team Providers Care Electronic Warfare Specialist Name Role Phone Amalia Walter Primary Care Provider [phone] Encounter Details Date Type Department Care Team (Late st Contact Info) Description 01/28/2021 Transcribed Document [facility] [place] Family Medicine [address] [place] [address] ProviderEmely MD [address] [place] [address] Social History Tobacco Use Types [...] Note - Emely Adams MD - 01/28/2021 2:29 PM CDT [facility] [place] [address] ZEHRA ESPINOE :1965 Visit Time:01/28/2021 What to do next Your Diagnosis Other hammer toe(s) (acquired), unspecified foot Other specified disorders of muscle, Other specified disorders of muscle Pain in right foot Instructions From Your Care Team Diet after Discharge: Resume usual diet as tolerated, Do not drink any alcoholic beverages, Drink at least 8-10 glasses of water per day Activity after Discharge: Rest and relax today, No strenuous activity wear surgical boot while up and moving around -- do not walk or bear weight without boot! you may sleep without boot for comfort. exercise legs frequently by bending the knees to prevent blood clots! Weight Bearing: heel weight bearing only. use crutches. Driving after Discharge: Do not drive until 24 hours after no longer taking pain medications Showering/Bathing: May shower, No tub bathing, soaking or swimming. wrap dressing with a trash bag/strong plastic and strong tape to keep clean and dry at all times. Notify Provider of: excessive bleeding, pain, swelling, fever, or pus-like drainage. Wound/Incision Care after Discharge: Keep operative site/wound site clean and dry, DO NOT change dressing; may reinforce it as needed. apply ice for 20 min every hour for the first 2 days above surgical site. mild swelling and bruising is expected. Medical Equipment for Home Use: crutches, ice pack, boot, shoe Pain medication: take with food and use stool softeners 2-3x/day to prevent constipation. Discharge Follow Up Instructions: Follow-Up Appointments Follow Up with NORMA FOSTER DPM-POD When Within 2 to 3 days Comments Follow-up appointment at 2:40pm Where: Medications What How Much When Instructions Next Dose acetaminophen-oxyCODONE (Percocet 5 mg-325 mg oral tablet) 1 Tablet(s) Oral Every 8 Hours as needed for as needed for pain Pickup at [facility] 1881 ascorbic acid (Vitamin C) 1,000 Milligram(s) Oral Every Day cholecalciferol (Vitamin D3) 50 Microgram(s) Oral Every Day diclofenac 75 Milligram(s) Oral Two Times A Day gabapentin 300 Milligram(s) Oral Three Times A Day insulin glargine (Lantus) 45 Unit(s) SubCutaneous Every Day losartan 25 Milligram(s) Oral Every Day lovastatin 20 Milligram(s) Oral Every Day metFORMIN 500 Milligram(s) Oral Two Times A Day multivitamin with minerals (Centrum Silver) 1 Tablet(s) Oral Every Day multivitamin with minerals (PreserVision AREDS 2) 1 Capsule(s) Oral Every Day valACYclovir 500 Milligram(s) Oral Every Day zinc sulfate (Zinc) 50 Milligram(s) Oral Every Day Pharmacy Information [facility]259: [address] [facility] [address] [place], [place] [id number] [phone] Take your medications faithfully. Do NOT skip medication. Do NOT stop taking medications without the direction of a physician. Carry a list of your medications with you at all times, and take this medication list with you to your first follow up visit. Report any side effects. Avoid herbal remedies unless discussed with your physician. As part of your treatment plan, your physician may have prescribed a limited course of a controlled substance. This medication may be given to help people with moderate or severe pain or for other medical conditions, but there are risks involved with treatment. Common side effects may include nausea, constipation, drowsiness, sweating, itching, dry mouth, and rash. More serious side effects may include cognitive and motor impairment, like problems with thinking, concentrating, alertness, and movement (e.g. slowed reflexes), and driving and operating heavy machinery can be dangerous. It is important for you to talk to your physician if you have these side effects or questions. These controlled substances can produce physical dependence and be habit-forming if taken for an extended period of time, which means that the body has gotten used to them and may experience withdrawal symptoms if they are abruptly stopped. Withdrawal symptoms can include runny nose, sweating, goose bumps, diarrhea, abdominal cramping, rapid heartbeat, difficulty sleeping, and nervousness. Please dispose of unused and medications per pharmacy guidance. Education Materials Hammer Toe Hammer toe is a change [...] that pinch your toes. ??? Are a planer setup operator. ??? Have a second toe that is [...] Follow these instructions at home: ??? Take lxcs-qgg-rjlbdii and prescription medicines only as told by [...] provider. Document Revised: 10/12/2018 Document Reviewed: 02/22/2017 [employer] Patient Education ?? 2020 [employer] General Anesthesia, Adult, Care After This [...] activities are safe for you. ??? Take rowa-hmg-tnmvzfs and prescription medicines only as told by [...] provider. Document Revised: 11/02/2018 Document Reviewed: 06/15/2018 [employer] Patient Education ?? 2020 [employer]. Emergency Awareness and Preventative Care STROKE is an EMERGENCY Every Minute Counts Act FAST and Check for these signs: FACE Does the face look uneven? ARM Does one arm drift down? SPEECH Does their speech sound strange? TIME Call at any sign of stroke Stroke Risk Factors Atrial Fibrillation (irregular heartbeat) Diabetes Family history of stroke Heart Disease Heavy alcohol use High Blood Pressure High Cholesterol Physical inactivity and obesity Smoking Cigarette Smoking The facts are clear, cigarette smoking will shorten your life. Smoking can cause many illnesses along the way. As a healthcare provider, we recommend that you stop smoking. Assistance with quitting is available by contacting 9-280-GGCJ-NOW. This is a free resource providing counseling, support, and referral. Or you may contact your personal physician. National Suicide Prevention Lifeline: The National Suicide Prevention Lifeline is a national network of local crisis centers that provides free and confidential emotional support to people in suicidal crisis or emotional distress 24 hours a day, 7 days a week. Don't Wait! Stop a Heart Attack Before it Starts What is a heart attack? A heart attack is damage or to a part of the heart from severely decreased or lack of blood flow to the heart. Over time, arteries can become narrow from the buildup of fat and cholesterol, which is called plaque. The plaque can rupture causing a blood clot to form. When the blood clot forms, the artery can become severely narrowed or completely blocked, causing a heart attack. Heart attack is the leading cause of in the [place]. 85% of muscle damage occurs within the first 2 hours. Delay in the recognition of heart attack symptoms increases the chances of . Know the early symptoms of a heart attack: Nausea Feeling of fullness in chest Jaw Pain Pain that travels down one or both arms Fatigue/being tired Anxiety Back Pain Chest pressure, squeezing, or discomfort Shortness of breath Sweating, or a cold sweat Feeling of impending doom There are unusual signs of a heart attack, too! Women, the elderly, and diabetics may present with atypical symptoms: Fainting/dizziness Weakness Confusion Risk Factors for a Heart Attack Some heart disease risk factors, such as age and family history, cannot be changed. Others, like smoking and lack of exercise, can be changed. Smoking High Cholesterol High Blood Pressure Family History Obesity Age Gender (Males are at higher risk) Lack of Exercise Diabetes Diet Stress Excessive Alcohol Intake If you or someone you know is experiencing the signs and symptoms of a heart attack, DON???T DELAY. Call immediately and seek help. If someone collapses, perform CPR! Do not attempt to drive if you are having symptoms of heart attack. Hands-Only CPR Why Hands-Only CPR? Hands-Only CPR has been shown to be as effective as conventional CPR for cardiac arrests that occur outside of a hospital. Survival depends on immediately receiving CPR from someone nearby. How do you perform Hands-Only CPR? There are two easy steps: Call if you see a teen or adult collapse Push hard and fast in the center of the chest at a beat of 100 beats per minute. Save a life! 4 WAYS TO GET AHEAD OF SEPSIS SEPSIS is a MEDICAL EMERGENCY. Time matters! Infections put you and your family at risk for a life-threatening condition called sepsis. Sepsis is the body's extreme response to an infection. It is life-threatening, and without timely treatment, sepsis can rapidly lead to tissue damage, organ failure, and . Sepsis happens when an infection you already have-in your skin, lungs, urinary tract or somewhere else-triggers a chain reaction throughout your body. 1 PREVENT INFECTIONS Take good care of chronic conditions. Talk to your doctor about getting the recommended vaccines. 2 PRACTICE GOOD HYGIENE Wash your hands frequently. Keep cuts or open sores clean and covered until they are healed. 3 KNOW THE SYMPTOMS Confusion or disorientation Shortness of breath High heart rate Fever, shivering, or feeling very cold Extreme pain or discomfort Clammy or sweaty skin 4 ACT FAST Get medical care IMMEDIATELY if you suspect sepsis or if you have an infection that is not getting better or is getting worse. To learn more about sepsis and how to prevent infections, visit www.cdc.gov/sepsis. Test Results Laboratory or Other Results This Visit (last charted value for your 01/28/2021 visit) Microbiology 01/26/2021 11:59 AM SARS-CoV-2 (COVID19 PCR): Negative General Chemistry 01/28/2021 1:29 PM Glucose POC2: 98 mg/dL -- Normal range between ( 70 and 110 ) Device Comment 1: Device Comment 1 01/28/2021 10:16 AM Potassium POC: 3.9 mmol/L -- Normal range between ( 3.5 and 4.9 ) :Potassium Level POC: :Potassium Level POC Patient Name:JOAO ZEHRAPATT DEYE I have received this information and was given the opportunity to ask questions. Patient/Acute Coordinator Name: Patient/Acute Coordinator Signature: Relationship to Patient: Clinician/Hospital Acute Coordinator Signature: Date: documented in this encounter Plan of Treatment Not on file documented as of this encounter Visit Diagnoses Not on filedocumented in this encounter Care Teams Electronic Warfare Specialist Relationship Specialty Start Date End Date Amalia Walter [address] [place] [address] PCP - General 04/09/24 documented as of this encounter
--- OUTSIDE RECORDS SUMMARY | 2025-05-20 14:18 | XMS_ITS | Clinical Summary ---
Author Organization [facility] Address [address] [place] [address] Care Team Providers Care Boilers And Pressure Vessels Inspector Name Role Phone Amalia Walter APRN Primary Care Provider [phone] Allergies Active Allergy Reactions Criticality Noted Date Comments Latex Rash Low 12/03/2018 Lisinopril Cough,Other - please document in the comment field Low 06/05/2018 cough Medications ascorbic acid (Vitamin C) 1000 MG tablet Take 1 tablet (1,000 mg) by mouth 1 (one) time each day. Active Aspirin Low Dose 81 MG EC tablet Take 1 tablet (81 mg) by mouth 1 (one) time each day. Active bisoprolol (Zebeta) 5 MG tablet Take 1 tablet (5 mg) by mouth 1 (one) time each day. Active cholecalciferol (Vitamin D3) 5,000 Units tablet Take 1 tablet (5,000 Units) by mouth 1 (one) time each day. Active clopidogrel (Plavix) 75 MG tablet Take 1 tablet (75 mg) by mouth 1 (one) time each day. Active Continuous Glucose Sensor (Dexcom G7 Sensor) [facility] USE DIRECTED 4 Active cyclobenzaprine (Flexeril) 5 MG tablet Take 1 tablet (5 mg) by mouth 1 (one) time each day if needed. Active diclofenac (Voltaren) 50 MG EC tablet Take 1 tablet (50 mg) by mouth 2 (two) times a day if needed. 4 Active Jardiance 10 MG Take 1 tablet (10 mg) by mouth 1 (one) time each day. Active fluticasone (Flonase) 50 MCG/ACT nasal spray Administer 1 spray into affected nostril(s) if needed. 4 Active gabapentin (Neurontin) 300 MG capsule Take 400 mg by mouth 2 (two) times a day. 4 Active losartan (Cozaar) 25 MG tablet Take 1 tablet (25 mg) by mouth 1 (one) time each day. Active metFORMIN XR (Glucophage-XR) 500 MG 24 hr tablet Take 1 tablet (500 mg) by mouth 1 (one) time each day. Active Ozempic, 2 MG/DOSE, 8 MG/3ML solution pen-injector Inject 2 mg under the skin 1 (one) time per week. 4 Active rosuvastatin (Crestor) 10 MG tablet Take 1 tablet (10 mg) by mouth 1 (one) time each day. 4 Active Multiple Vitamins-Minera ls (PRESERVISION AREDS 2 PO) Take 1 capsule by mouth 1 (one) time each day. Active MULTIPLE VITAMINS-MINERA LS PO Take 1 capsule by mouth 1 (one) time each day. Active Zinc Gluconate 50 MG capsule Take 50 mg by mouth 1 (one) time each day. Active biotin 5 MG capsule Take 2 capsules (10 mg) by mouth 1 (one) time each day. Active loratadine (Claritin) 10 MG tablet Take 1 tablet (10 mg) by mouth 1 (one) time each day. Active valACYclovir (Valtrex) 500 MG tabletIndicatio ns:History of herpes genitalis Take 1 tablet by mouth daily. 90 tablet 4 5 06/03/20 25 Active Encounters Date Type Department Care Team Description 03/07/2025 Results Follow-Up Obstetrics & Gynecology [address] [place] [address] Pepito Rosales MD 03/07/2025 Outside Procedure External Location [address] [place] [address] Pepito Rosales MD 03/05/2025 Telephone Obstetrics & Gynecology [address] [place] [address] Pepito Rosales MD 02/26/2025 9:45 AM EDT Office Visit Obstetrics & Gynecology [address] [place] [address] Pepito Rosales MD Encounter for annual routine gynecological examination (Primary Dx); History of herpes genitalis; Encounter for screening mammogram for malignant neoplasm of breast 02/26/2025 Travel from Last 3 Months Immunizations Immunization Administration Dates Next Due Hep A / Hep B 02/25/2019,08/28/2018,07/27/2018 Influenza, Split (incl. sukhjinder fied surface antigen) 11/01/2013 Influenza, injectable, quadr ivalent, preservative free 09/29/2021,08/10/2020,07/30/2019,2017,09/19/2017 Influenza, seasonal, injectable 09/29/2021 Zoster, Recombinant 01/12/2021,08/10/2020 Family History Medical History Relation Name Comments Diabetes Brother Cancer Father Heart disease Father Arthritis Mother Heart disease Mother Stroke Mother Stroke Paternal Grandmother Relation Name Status Comments Brother Father Mother Paternal Grandmother Social History Tobacco Use Types Packs/Day Years Used Date Smoking Tobacco: Former Smokeless Tobacco: Never Tobacco Cessation:Counseling Given: Not Answered Alcohol Use Standard Drinks/Week Comments Yes 0 (1 standard drink = 0.6 oz pur e alcohol) rarely PHQ-2 Answer Date Recorded Patient Health Questionnaire-2 Score 0 02/26/2025 PHQ-9 Answer Date Recorded Patient Health Questionnaire-9 Score 0 02/26/2025 Comments No Sex and Gender Information Value Date Recorded Sex Assigned at Not on file Legal Sex Female 6:12 PM EDT Gender Identity Not on file Sexual Orientation Not on file Last Filed Vital Signs Vital Sign Reading Time Taken Comments Blood Pressure 135/79 02/26/2025 9:22 AM EDT Pulse 77 02/26/2025 9:22 AM EDT Temperature 36.7 C (98.1 F) 02/26/2025 9:22 AM EDT Respiratory Rate 16 01/24/2025 11:54 AM EDT Oxygen Saturation 100% 02/26/2025 9:22 AM EDT Inhaled Oxygen Concentration - - Weight 86.2 kg (190 lb) 02/26/2025 9:22 AM EDT Height 175.3 cm (5' 9 ) 01/24/2025 11:54 AM EDT Body Mass Index 28.06 01/24/2025 11:54 AM EDT Plan of Treatment Upcoming Encounters Date Type Department Care Team (Late st Contact Info) Description 11/21/2025 9:40 AM EST Office Visit [facility] [address] [place] [address] Kristyn Gusman, COREMAKER SUPERVISOR [address] [facility] [address] [place] [address] 03/06/2026 8:45 AM EDT Office Visit Obstetrics & Gynecology [address] [place] [address] Pepito Rosales MD [address] [place] [address] Health Maintenance Due Date Last Done Comments [facility]-Diabetes: Hemoglobin A1C 1965 [facility]-HIV Screening 1965 [facility]-Hepatitis C Screening 1965 [facility]-/Child/Adol SDOH Screenings 1965 [id number] Vaccine (#1) 1969 Diabetes: Dental Exam 1974 [facility]- SDOH Screenings 1982 [facility]-Adult SDOH Screenings 1982 [facility]-DTaP,Tdap,and Td Vaccines (1 - Tdap) 1983 [facility]-Pneumococcal Vaccine: 50+ Years (1 of 2 - PCV) 1983 [facility]-Pap Smear 1985 [facility]-Cervical Cancer Screening 1994 [facility]-HPV/Cotest 1994 CT Colonography 2009 Colonoscopy 2009 FIT-DNA 2009 FIT 2009 FOBT 2009 Sigmoidoscopy 2009 [facility]-Colorectal Cancer Screening 2009 [facility]-RSV Vaccine: 60+ Years or (1 - Risk 60-74 years 1-dose series) 2024 [facility]-Influenza Vaccine (#1) 07/14/202509/29, 09/29/2021, 08/10/2020, Additional history exists [facility]-Depression Screening 02/26/2026 02/26/2025, 02/11 [facility]-Breast Cancer Screening 03/07/2027 03/07/2025 [facility]-Hepatitis A Vaccines Aged Out 019, 08/28/2018, 07/27/2018 No longer eligible based on patient's age to complete this topic [facility]-Zoster Vaccines Completed 01/12/2021, [facility]-Obesity Intervention Completed 025, 01/24/2025, 09/18/2024 HPV Vaccines Aged Out No longer eligi ble based on patient's age to complete this topic [facility]-HIB Vaccines Aged Out No longer e ligible based on patient's age to complete this topic [facility]-IPV Vaccines Aged Out No longer e ligible based on patient's age to complete this topic [facility]-Rotavirus Vaccines Aged Out No lo nger eligible based on patient's age to complete this topic Procedures Procedure Name Priority Date/Time Associated Diagnosis Comments MAMMOGRAPHY BREAST SCREENING TOMOSYNTHESIS BILATERAL 03/07/2025 3:49 PM EDT from Last 3 Months Results * Mammography Breast Screening Tomosynthesis Bilateral (03/07/2025 3:49 PM EDT) Anatomical Region Laterality Modality Breast Bilateral Mammography 03/07/2025 3:49 PM EDT Narrative 03/07/2025 4:18 [place] [address] Name: ZEHRA SHEPHERD Exam Date: 03/07/2025 : 1965 Age 59 years Gender: F Physician: PEPITO ROSALES Facility: [facility] Facility HSV: Outpatient Exam: TITUS SCRN MAMMO W/CAD BILAT Exam: 3-D screening mammography including tomosynthesis and CAD (Computer Assisted Detection). Clinical indication: Asymptomatic screening exam Comparison: Exams to 2020 TECHNIQUE: Routine bilateral 2D screening mammogram with CC and MLO views obtained. 3-D tomosynthesis and Computer assisted detection were utilized for this exam. BREAST DENSITY: The breasts are heterogeneously dense, which may obscure small masses FINDINGS: No suspicious mass, architectural distortion, or suspicious calcifications are present. IMPRESSION: No evidence of malignancy in either breast Recommendation: Annual screening mammography recommended in one year The results of this report will be communicated to the patient by letter in layman's terms. ACR BI-RADS: BI-RADS assessment category 1: Negative mammogram Mammography does not detect approximately 10-15% of breast cancers. A normal mammogram does not exclude breast cancer in a patient with palpable mass or abnormal findings on physical examination. These patients may need biopsies and when clinically indicated a biopsy should not be postponed because of a normal mammogram. If the patient has breast surgery or biopsy, FDA/SA Regulatory Guidelines mandate that this facility receive pathologic results for follow-up correlation. Electronically signed by: Easton Orellana MD 03/07/2025 04:15 PM EDT RP Dictated By: Easton Orellana Transcribed By: Transcribed On: 03/07/2025 4:06 PM Electronically signed by: Easton Orellana 03/07/2025 Thank you for referring ZEHRA SHEPHERD to [facility]. Legally authenticated by LORRAINE CHILDS 2025-03-07 16:06:10 Procedure Note Provider, Alva Shiloh - 03/07/2025 [place] [address] Name: ZEHRA SHEPHERD Exam Date: 03/07/2025 : 1965 Age 59 years Gender: F Physician: PEPITO ROSALES Facility: [facility] Facility HSV: Outpatient Exam: TITUS SCRN MAMMO W/CAD BILAT Exam: 3-D screening mammography including tomosynthesis and CAD(Computer Assisted Detection). Clinical indication: Asymptomatic screening exam Comparison: Exams to 2020 TECHNIQUE: Routine bilateral 2D screening mammogram with CC and MLOviews obtained. 3-D tomosynthesis and Computer assisted detection were utilizedfor this exam. BREAST DENSITY: The breasts are heterogeneously dense, which may obscuresmall masses FINDINGS: No suspicious mass, architectural distortion, or suspicious calcifications are present. IMPRESSION: No evidence of malignancy in either breast Recommendation: Annual screening mammography recommended in one year The results of this report will be communicated to the patient by letterin layman's terms. ACR BI-RADS: BI-RADS assessment category 1: Negative mammogram Mammography does not detect approximately 10-15% of breast cancers. Anormal mammogram does not exclude breast cancer in a patient with palpable massor abnormal findings on physical examination. These patients may needbiopsies and when clinically indicated a biopsy should not be postponed because ofa normal mammogram. If the patient has breast surgery or biopsy, FDA/SA Regulatory Guidelines mandate that this facility receive pathologicresults for follow-up correlation. Electronically signed by: Easton Orellana MD 03/07/2025 04:15 PM EDTRP Dictated By: Easton Orellana Transcribed By: Transcribed On: 03/07/2025 4:06 PM Electronically signed by: Easton Orellana 03/07/2025 Thank you for referring ZEHRA SHEPHERD to [facility]. Legally authenticated by LORRAINE CHILDS 2025-03-07 16:06:10 Pepito Rosales MD IMG BI PROCEDURES Final Result from Last 3 Months Insurance [facility] Care Teams Boilers And Pressure Vessels Inspector Relationship Specialty Start Date End Date Amalia Walter APRN [address] [place] [id number] PCP - General 09/17/24
--- OUTSIDE RECORDS SUMMARY | 2025-05-20 14:18 | XMS_ITS | Referral Summary ---
Author Organization [employer] ([place], [place], [place], [place]) Address [address] [place] [address] Care Team Providers Care Detasseler Name Role Phone Amalia Walter Primary Care Provider [phone] Allergies Active Allergy Reactions Criticality Noted Date Comments Latex Rash Low 12/03/2018 Lisinopril 06/05/2018 cough Medications gabapentin (NEURONTIN) 400 MG capsule Take 1 capsule (400 mg total) by mouth 2 (two) times daily. 4 Active metFORMIN (GLUCOPHAGE-XR ) 500 MG 24 hr tablet Take 1 tablet (500 mg total) by mouth daily. 4 Active Jardiance 10 mg tablet Take 1 tablet (10 mg total) by mouth daily. 4 Active losartan (COZAAR) 25 MG tablet Take 1 tablet (25 mg total) by mouth daily. 4 Active valACYclovir (VALTREX) 500 MG tablet Take 1 tablet (500 mg total) by mouth daily. 4 Active clopidogreL (PLAVIX) 75 mg tablet Take 1 tablet (75 mg total) by mouth daily. 4 Active bisoprolol (ZEBETA) 5 MG tablet Take 1 tablet (5 mg total) by mouth nightly. 4 Active rosuvastatin (CRESTOR) 10 MG tablet Take 1 tablet (10 mg total) by mouth nightly. 4 Active fluticasone propionate (FLONASE) 50 mcg/actuation nasal spray 1 spray by Nasal route daily as needed. 4 Active famotidine (PEPCID) 20 MG tablet Take 1 tablet (20 mg total) by mouth daily as needed for Heartburn. Active ascorbic acid, vitamin C, (vitamin C) 1000 MG tablet Take 1 tablet (1,000 mg total) by mouth nightly. Active vit C/E/Zn/coppr/l utein/zeaxan (PRESERVISION AREDS-2 ORAL) Take 1 capsule by mouth nightly. Active cholecalcifero l (VITAMIN D3) 125 mcg (5,000 unit) tablet Take 1 tablet (5,000 Units total) by mouth daily. Active cyanocobalamin , vitamin B-12, (vitamin B-12) 250 MCG tablet Take 1 tablet (250 mcg total) by mouth daily. Active aspirin 81 MG EC tablet Take 1 tablet (81 mg total) by mouth daily. Active biotin 10 mg Tab Take 10 mg by mouth nightly. Active semaglutide (Ozempic) 1 mg/dose (4 mg/3 mL) PnIj Inject 1 mg subcutaneously every 7 days. Active zinc gluconate 50 mg tablet Take 2 tablets (100 mg total) by mouth daily. Active ondansetron (ZOFRAN) 4 MG tablet Take 1 tablet (4 mg total) by mouth 4 (four) times daily as needed for Nausea for up to 60 doses. 30 tablet 4 Active Active Problems Problem Noted Date Diagnosed Date Obstructive sleep apnea syndrome 04/09/2024 04/09/2024 Diabetes mellitus, type 2 04/09/20242023 History of arthroscopy of knee 06/27/2019 0 04/09/2024 Sprain of back 11/28/2007 04/09/2024 Overview (04/09/2024): Social History Tobacco Use Types Packs/Day Years Used Date Smoking Tobacco: Former Cigarettes Smokeless Tobacco: Never Tobacco Cessation:Counseling Given: Not Answered Alcohol Use Standard Drinks/Week Comments Yes 0 (1 standard drink = 0.6 oz pur e alcohol) MAYBE 6 LIQUOR DRINKS PER YEAR Food Insecurity Answer Date Recorded Food run out past 12 months Not on file 02/13 Food did not last past 12 months Not on file 03/12/2024 Employment Answer Date Recorded Help finding and keeping a job Not on file 0 03/12/2024 Family and Community Support Answer Rafa e Recorded Help with Day to Day Activities Not on file 03/12/2024 Feeling Lonely or Isolated Not on file 03/12 Educational Attainment Answer Date Tien rded Speak language other than Vietnamese at home Not on file 03/12/2024 Want help with school or training Not on file 03/12/2024 Substance Use Answer Date Recorded Used prescription meds for non-medical reasons N ot on file 03/12/2024 Used illegal drugs past 12 months Not on file 03/12/2024 Comments No Sex and Gender Information Value Date Recorded Sex Assigned at Female 05/12/2022 6:35 PM CDT Legal Sex Female 7:17 PM CDT Gender Identity Female 05/12/2022 6:35 PM CDT Sexual Orientation Not on file Last Filed Vital Signs Vital Sign Reading Time Taken Comments Blood Pressure 131/86 04/18/2024 11:05 AM EDT Pulse 65 04/18/2024 11:05 AM EDT Temperature 36.5 C (97.7 F) 04/18/2024 11:05 AM EDT Respiratory Rate 16 04/18/2024 11:05 AM EDT Oxygen Saturation 95% 04/18/2024 9:05 AM EDT Inhaled Oxygen Concentration 28% 04/17/2024 9 :01 PM EDT Weight 84.8 kg (187 lb) 04/17/2024 8:56 AM EDT Height 175.3 cm (5' 9 ) 04/17/2024 8:56 AM EDT Body Mass Index 27.62 04/17/2024 8:56 AM EDT Plan of Treatment Not on file Medical Devices Implanted Type Area Automotive Paint Technician Device Identifier Shelf Expiration Date Model / Serial / Lot Psn Lizzy Spkd 0 Sz F Oss L [id number]- 01 - [id number] Implanted:Qt y: 1 on 04/17/2024 at [facility] TOTAL JOINT CONSTRUCT Left: Knee RUPERT:RUPERT [id number] 07/07/2033 42-5350-0 75-01 / / [id number] Psn Fem Cr Pps Cocr Nrw Sz9 L [id number] 01 - [id number] Implanted:Qt y: 1 on 04/17/2024 at [facility] TOTAL JO[employer]STRUCT Left: Knee RUPERT:RUPERT [place] [id number] 02/14/2033 42-5080-0 66- [id number] Psn Art Surf 10mm 8-/E-F Lt [id number] 10 - [id number] Implanted:Qt y: 1 on 04/17/2024 at [facility] TOTAL JOINT CONSTRUCT Left: Knee RUPERT:RUPERT US [id number] 12/20/2028 [id number] 06-22 [id number] Procedures Procedure Name Priority Date/Time Associated Diagnosis Comments HEMOGLOBIN A1C Routine 04/09/2024 2:56 PM EDT Preop testing from Last 3 Months or Most Recently Relevant to Health Maintenance Results * Hemoglobin A1c (04/09/2024 2:56 PM EDT) Hemoglobin A1C 6.5 % 04/09/2024 6:57 PM EDT [facility] Comment: Hemoglobin A1C levels are related to mean glucose during the preceding 2-3 months. Less than 7% demonstrates glycemic control in diabetic patients. Hemoglobin AlC % Suggested Diagnosis > or = 6.5 Diabetic 5.7 - 6.4 Prediabetic <5.7 Non-diabetic eAVG Glucose 139.85 mg/dL 04/09/2024 6:57 PM EDT [facility] Blood Venipuncture / Unknown 04/09/2024 2:56 PM EDT 04/09/2024 4:30 PM EDT Nicholas Castro MD LAB BLOOD ORDERABLES Final Result [facility] [address] [phone] from Last 3 Months or Most Recently Relevant to Health Maintenance Insurance BLUE CROSS/BLUE SHIELD Advance Directives For more information, please contact: [phone] * Full Code (Latest Code Status on File) Date Activated Date Inactivated Comments 04/17/2024 1:15 PM 04/18/2024 2:19 PM * Full Code Date Activated Date Inactivated Comments 04/17/2024 7:55 AM 04/17/2024 1:15 PM Care Teams Detasseler Relationship Specialty Start Date End Date Amalia Walter [address] [place] [address] PCP - General 04/09/24
--- OUTSIDE RECORDS SUMMARY | 2025-05-20 14:18 | XMS_ITS | Encounter Summary ---
Author Organization [employer] ([place], [place], [place], [place]) Address [address] [place] [address] Care Team Providers Care Inspectors And Regulatory Officers Name Role Phone Amalia Walter Primary Care Provider [phone] Encounter Details Date Type Department Care Team (Late st Contact Info) Description 01/28/2021 Transcribed Document [facility] [address] [place] [address] ProviderEmely MD [address] [place] [id number] Social History Tobacco Use Types Packs/Day Years [...] Note - Emely Adams MD - 01/28/2021 1:53 PM CDT DATE OF PROCEDURE: 01/28/2021 Patient : 1965 SURGEON: Ramon Rivero DPM LOCATION: [facility]. SFDC TECHNICAL ARCHITECT: None. PREOPERATIVE DIAGNOSES: 1. Plantar plate tear, right foot. 2. Hammertoe, right second digit. 3. Pain, right foot. 4. Neuroma, right foot. POSTOPERATIVE DIAGNOSES: 1. Plantar plate tear, right foot. 2. Hammertoe, right second digit. 3. Pain, right foot. 4. Neuroma, right foot. PROCEDURES PERFORMED: 1. Plantar plate repair, right second MPJ. 2. Hammertoe correction, right second digit. 3. MPJ capsulotomy, right second digit. 4. Excision of neuroma, right second interspace. ANESTHESIA: MAC with popliteal nerve block. HEMOSTASIS: Pneumatic ankle tourniquet at 250 mmHg. ESTIMATED BLOOD LOSS: Less than 20 mL. MATERIALS: [employer] hammertoe implant. INJECTABLES: None. SPECIMEN: Neuroma, right foot. COMPLICATIONS: None. CONDITION: Stable. DESCRIPTION OF PROCEDURE: The patient was met in preoperative setting. All questions were answered. Consent was signed. The patient elected to proceed with procedure. The patient was continued on IV antibiotics, currently being administered in the preoperative setting. The patient was brought to the operating room, placed on the table in the supine position, under mild sedation, the foot was then scrubbed, prepped, and draped in the usual aseptic fashion. Prior to coming back to the operating room, Anesthesia administered a popliteal nerve block to the right lower extremity. Attention was directed to the right plantar foot where the second interspace was noted. Incision was made directly over the second interspace plantarly. Sharp and blunt dissection were used to dissect and extract neuroma, right second interspace was removed and passed off the field and sent to Pathology. Dissection was continued down to the second metatarsophalangeal joint where a plantar plate rupture was noted. Using 3-0 Vicryl, plantar plate tear was reapproximated, and toe was noted to come down into a rectus position. Surgical site was irrigated with sterile saline. Subcutaneous closure with 3-0 Vicryl and the skin with 2-0 Prolene. Attention was then directed to the dorsal aspect of the second digit where a PIPJ contracture was noted. Incision was made over the second digit PIPJ down to the metatarsophalangeal joint. Care was taken to retract all neurovascular structures. The tendon was lengthened in a Z-plasty technique and the proximal interphalangeal joint was exposed. Resection of the head of the proximal phalanx and base of the middle phalanx using a sagittal saw was performed and passed off the field. A [employer] hammertoe implant was then planned using standard technique with good correction noted. It was noted that there was still contracture of the metatarsophalangeal joint. A dorsal medial lateral capsulotomy was performed and toe was noted to be in good alignment. Surgical site was irrigated with sterile saline. Extensor tendon was reapproximated with 3-0 Vicryl, subcutaneous tissues with 4-0 Vicryl, and the skin with 2-0 Prolene. Postoperative dressing consisting of Betadine, Adaptic, 4x4, Kerlix, Ronny was then applied. The patient tolerated the procedure well and will be returned to PACU for a brief period of postoperative monitoring before being discharged home. The patient has all scheduled followup instructions, is given prescription for pain medication to take p.r.n., and will be followed in the next 24 to 72 hours. /[id number] PIERO Ugarte/AQ / GUZMAN / MODL /[id number] documented in this encounter Plan of Treatment Not on file documented as of this encounter Visit Diagnoses Not on filedocumented in this encounter Care Teams Inspectors And Regulatory Officers Relationship Specialty Start Date End Date Amalia Walter [address] [place] [address] PCP - General 04/09/24 documented as of this encounter
--- OUTSIDE RECORDS SUMMARY | 2025-05-20 14:18 | XMS_ITS | Encounter Summary ---
Author Organization [employer] ([place], [place], [place], [place]) Address [address] [place] [address] Care Team Providers Care Property Inspector Name Role Phone Amalia Walter Primary Care Provider [phone] Encounter Details Date Type Department Care Team (Late st Contact Info) Description 01/28/2021 Transcribed Document [facility] [place] [address] [place] [address] ProviderEmely MD [address] [place] [address] Social History Tobacco Use Types [...] Note - Emely Adams MD - 01/28/2021 9:26 AM CDT Patient: ZEHRA SHEPHERD Age: 55 years Sex: Female : 1965 Associated Diagnoses: None Author: RANDA LEACH, ABRASIVE GRADER HELPER Chief Complaint R foot pain Review of Systems ROS reviewed as documented in chart no change since last seen by surgeon Health Status Allergies: Allergic Reactions (Selected) Severity Not Documented Lisinopril- Coughing. , Allergies (1) Active Reaction lisinopril Coughing Current medications: Home Medications (12) Active Centrum Silver 1 Tab, Oral, Daily diclofenac 75 mg, Oral, BID gabapentin 300 mg, Oral, TID Lantus 45 Units, SubCutaneous, Daily losartan 25 mg, Oral, Daily lovastatin 20 mg, Oral, Daily metFORMIN 500 mg, Oral, BID PreserVision AREDS 2 1 Cap, Oral, Daily valACYclovir 500 mg, Oral, Daily Vitamin C 1,000 mg, Oral, Daily Vitamin D3 50 mcg, Oral, Daily Zinc 50 mg, Oral, Daily , Medications (4) Active Scheduled: (3) ceFAZolin/D5w 2 Gram 50 mL, IV Piggyback, PREOP famotidine 20 mg tab 20 mg 1 Tab, Oral, 1-Time lidocaine 1% *PF* inj 30 mL 0.5 mL, IntraDermal, 1-Time Continuous: (1) lactated ringers 1,000 mL 1,000 mL, IntraVENous, 20 mL/Hr PRN: (0) Problem list: Active Problems (4) Diabetes History of obstructive sleep apnea Seasonal allergies Sleep apnea, obstructive - uses cpap at home Histories Past Medical History: No active or resolved past medical history items have been selected or recorded. Family History: No family history items have been selected or recorded. Procedure history: No active procedure history items have been selected or recorded. Physical Examination VS/Measurements No qualifying data available General: Alert and oriented, No acute distress, obese. Eye: Pupils are equal, round and reactive to light, Extraocular movements are intact, glasses. HENT: Normocephalic, Normal hearing. Neck: Supple, Non-tender. Respiratory: Lungs are clear to auscultation, Respirations are non-labored. Cardiovascular: Normal rate, Regular rhythm, No murmur, No gallop, No edema. Gastrointestinal: Soft, Non-tender. Genitourinary: No costovertebral angle tenderness. Lymphatics: No lymphadenopathy neck, axilla, groin. Musculoskeletal: Normal strength, painful ROM R foot. Integumentary: Warm, Dry, Velva. Neurologic: Alert, Oriented. Psychiatric: Cooperative, Appropriate mood & affect. Review / Management Results review: No qualifying data available , Lab results 01/28/2021 8:54 EDT Device Comment 1 Device Comment 1 Glucose POC2 135 mg/dL HI . Impression and Plan Condition: Stable. documented in this encounter Plan of Treatment Not on file documented as of this encounter Visit Diagnoses Not on filedocumented in this encounter Care Teams Property Inspector Relationship Specialty Start Date End Date mayrageeta Amalia [address] [place] [address] PCP - General 04/09/24 documented as of this encounter
--- OUTSIDE RECORDS SUMMARY | 2025-05-20 14:18 | XMS_ITS | Encounter Summary ---
Author Organization [employer] ([place], [place], [place], [place]) Address [address] [place] [address] Care Team Providers Care Skip Pit Worker Name Role Phone Amalia Walter Primary Care Provider [phone] Encounter Details Date Type Department Care Team (Late st Contact Info) Description 01/28/2021 Transcribed Document [facility] [place] Family Medicine [address] [place] [address] ProviderEmely MD [address] [place], [place] [id number] Social History Tobacco Use Types Packs/Day Years [...] Conversion Note - Emely ProviderMD - 01/28/2021 9:50 AM CDT PAT Adult Entered On: 01/28/2021 9:56 EDT Performed On: 01/28/2021 9:50 EDT by DEB DANIELS RN Height and Weight, Clinical Dosing Height Source : Measured Height Entry Format : [place] Height, Feet : 5 ft(Converted to: 152 cm, 60 Inch) Height, Inches : 9 Inch(Converted to: 0 ft 9 Inch, 22.86 cm) Clinical Height : 175.26 cm Weight Source : Standing scale Weight Entry Format : [place] Clinical Dosing Weight : 96.36 kg Weight, Pounds : 212 lb Body Surface Area (BSA) : 2.12 m2 Body Mass Index : 31.4 kg/m2 (HI) [place] Body Weight : 66 kg DEB DANIELS RN - 01/28/2021 9:50 EDT Health Histories Smoking Status : Former smoker, quit more than 30 days ago Smokeless Tobacco Status : Never Implant/Device Type, Psychologist Private Practice and Model : dental implants DEB DANIELS RN - 01/28/2021 9:50 EDT Social History (As Of: 01/28/2021 09:56:43 EDT) Tobacco: Former smoker, quit more than 30 days ago Smoking Status. Never Smokeless Tobacco Status. Years of Use: 9. Packs/Tins Daily: 1. Last Used: Quit 2012. (Last Updated: 01/28/2021 09:51:33 EDT by DEB DANIELS RN) Alcohol: Alcohol Use History No. (Last Updated: 01/28/2021 09:51:38 EDT by EDB DANIESL RN) Substance Abuse: Drug Use Hx: No. (Last Updated: 01/28/2021 09:51:44 EDT by DEB DANIELS RN) Infectious Disease History Has the patient ever been tested for COVID-19? : Yes, Patient stated results Negative Does patient have symptoms of COVID-19? : No COVID19 Screening : No Experiencing Infectious Disease Symptoms : No symptoms Physical contact outside [place] in the last 30 days : No Infectious Disease History : Chicken pox/Shingles, Influenza, Measles Tuberculosis Symptoms : None DEB DANIELS RN - 01/28/2021 9:50 EDT COVID19 PreProcedure Screening Is this an Emergent or Add on Procedure? : No Date PreProcedure COVID-19 test known? : Yes DEB DANIELS RN - 01/28/2021 9:50 EDT Anesthesia/Transfusion History Family History of Anesthesia Reaction : No prior transfusion(s) Transfusion History : Prior anesthesia without reaction Family History of Anesthesia Reaction : None DEB DANIELS RN - 01/28/2021 9:50 EDT Functional Assessment Functional ADL Evaluation Index EBN Bathing : Independent (2) Dressing : Independent (2) Toileting : Independent (2) Transferring Bed or Chair : Independent (2) Continence : Independent (2) Feeding : Independent (2) DEB DANIELS RN - 01/28/2021 9:50 EDT ADL Index Score : 12 DEB DANIELS RN - 01/28/2021 9:50 EDT Advance Directive Patient has Advance Directive *Q : No, patient refuses Advance Directive information DEB DANIELS RN - 01/28/2021 9:50 EDT [place] Suicide Severity Rating Scale (C-SSRS) CSSRS Past Month Wish to be : No CSSRS Past Month Suicidal Thoughts : No DEB DANIELS RN - 01/28/2021 9:50 EDT Psychosocial History Do You Have a History of the Following? : Patient denies history Currently in Unsafe Situation : No DEB DANIELS RN - 01/28/2021 9:50 EDT General Info Preferred Name : Zehra Arrived From : Home Mode of Arrival on Unit : Ambulatory Legal Guardian : Daughter Want Family/Rep/Phys Notified of Admit : No Emergency Contact #1 : Ree Muhammad Emergency Contact #1 Emergency Contact #1 Relationship : daughter Emergency Contact #2 : none Emergency Contact #2 Phone Number : none Emergency Contact #2 Relationship : none Chief Complaint : right foot pain Information Obtained From : Patient Primary Language : Macedonian Communication Barrier : None Striper Machine Needed : DEB Aguirre RN - 01/28/2021 9:50 EDT Hcano Scale Chano Sensory Perception : Slightly limited Chano Moisture : Rarely moist Chano Activity : Walks frequently Chano Mobility : No limitation Chano Nutrition : Excellent Chano Friction and Shear : No apparent problem Chano Score : 22 DEB DANIELS RN - 01/28/2021 9:50 EDT Sleep Apnea Risk Assmt BiPAP/CPAP Ordered for Home Use : Yes Hx of Obstructive Sleep Apnea Diagnosis : Yes BiPAP/CPAP Used at Home : Yes Age over 50 Years Old : Yes Gender Male : No DEB DANIELS RN - 01/28/2021 9:50 EDT Electronically signed by Jeferson Fernandez Conversion Administrative Services Director Cerner at 02/28/2023 7:49 PM CDT documented in this encounter Plan of Treatment Not on file documented as of this encounter Visit Diagnoses Not on filedocumented in this encounter Care Teams Skip Pit Worker Relationship Specialty Start Date End Date Saba Amalia [address] [place] [address] PCP - General 04/09/24 documented as of this encounter
--- OUTSIDE RECORDS SUMMARY | 2025-05-20 14:18 | XMS_ITS | Encounter Summary ---
Author Organization [employer] ([place], [place], [place], [place]) Address [address] [place] [address] Care Team Providers Care Frozen Yogurt Maker Name Role Phone Amalia Walter Primary Care Provider Encounter Details Date Type Department Care Team (Late st Contact Info) Description 01/28/2021 Transcribed Document [facility] [place] [address] [place] [address] ProviderEmely MD [address] [place], [place] [id number] Social History Tobacco Use Types Packs/Day Years [...] Note - Emely Adams MD - 01/28/2021 10:30 AM CDT Procedural Documentation Entered On: 01/28/2021 10:32 EDT Performed On: 01/28/2021 10:30 EDT by DEB DANIELS RN Procedure Documentation Procedure to be Performed : right popliteal nerve block injection Time Out Pause Time : 01/28/2021 10:20 EDT All Activity Suspended : Yes Team Verbally Confirms Information : Correct patient identity, Correct side and site are marked, Consent form is present and accurate, Agreement on the procedure to be done, Correct patient position, Confirm the skin prep has dried, Performed in location of procedure after prepped/draped Procedure Performed : right popliteal nerve block injection Proper Use of Sterile Apparel per Policy : Yes Procedure Case Attendee : JACK CHANDLER MD-ANS Procedure Case Attendee Role : Anesthesiologist Procedure Case Attendee Role 2 : service desk team lead Case Attendee 2 : GUILLE Zhu RN Procedure Case Attendee Role 3 : service desk team lead Case Attendee 3 : DEB DANIELS RN MCGRANNAHAN, MARY, RN - 01/28/2021 10:28 EDT Postprocedure Documentation Current Time : 10:28 EST DEB DANIELS RN - 01/28/2021 10:28 EDT Quincy Level I Post Anesthesia Assessment Quincy I Activity Status : Moves 4 extremities voluntarily or on command Quincy l Respiratory Component : Able to deep breathe and cough freely Quincy I Circulation Component : BP 20% of preanesthetic level Quincy I Consciousness : Arouses on calling Quincy l Oxygen Saturation : Needs oxygen to maintain > 92% Quincy l Score : 8 DEB DANIELS RN - 01/28/2021 10:28 EDT Quincy Level II Assessment Quincy ll Pain : Pain free DEB DANIELS RN - 01/28/2021 10:28 EDT Vital Measurements Heart Rate, Apical : 79 bpm Pulse Rhythm : Regular Respiratory Rate : 16 Breaths/Min Blood Pressure Location : Arm, right upper Blood Pressure Source : Non-Invasive BP Device Blood Pressure Position : Supine Systolic Blood Pressure : 139 mmHg Diastolic Blood Pressure : 76 mmHg DEB DANIELS RN - 01/28/2021 10:28 EDT Oxygen Therapy Oxygen Titrated : No Oxygen Therapy Mode : Nasal cannula Oxygen Flow Rate : 2 Liter/Min O2 Saturation Monitoring Frequency : Continuous Oxygen Saturation : 100 % DEB DANIELS RN - 01/28/2021 10:28 EDT Electronically signed by Jeferson Fernandez Conversion Environmental Remediation Consultant Cerner at 02/28/2023 7:43 PM CDT documented in this encounter Plan of Treatment Not on file documented as of this encounter Visit Diagnoses Not on filedocumented in this encounter Care Teams Frozen Yogurt Maker Relationship Specialty Start Date End Date Amalia Walter [address] [place] [address] PCP - General 04/09/24 documented as of this encounter
--- OUTSIDE RECORDS SUMMARY | 2025-05-20 14:18 | XMS_ITS | Encounter Summary ---
Author Organization [employer] ([place], [place], [place], [place]) Address [address] [place] [address] Care Team Providers Care Environmental Permitting Specialist Name Role Phone Amalia Walter Primary Care Provider [phone] Encounter Details Date Type Department Care Team (Late st Contact Info) Description 01/28/2021 Transcribed Document [facility] [place] Family Medicine [address] [place] [address] ProviderEmely MD [address] [place] [address] Social History Tobacco Use Types [...] Emely ProviderMD - 01/28/2021 12:31 PM CDT [facility] Main OR PostOp Summary Primary Physician: NORMA FOSTER DPM-POD Finalized Date/Time: 01/28/21 16:01:28 Pt. Name: ZEHRA SHEPHERD /Sex: 1965 Female Med Rec #: [id number] Physician: NORMA FOSTER DPM-POD Financial #: [id number] Pt. Type: O Room/Bed: Admit/Disch: 01/28/21 08:17:00 - Institution: [facility] Main OR PostOp Case Times Entry 1 In PACU II 01/28/21 13:15:00 Ready for PACU II 01/28/21 14:43:00 Discharge Discharge from PACU 01/28/21 14:43:00 II Last Modified By: Shona Wilson Rn 01/28/21 15:28:15 Finalized By: Shona Wilson Rn Document Signatures Signed By: Shona Wilson Rn 01/28/21 15:28 Shona Wilson Rn 01/28/21 16:01 Unfinalized History Date/Time Username Reason for Unfinalizing Freetext Reason for Unfinalizing 01/28/21 16:01 [id number] Modify Pick List Electronically signed by Rebecca [facility] Conversion Commercial Accountant Cerner at 02/28/2023 7:34 PM CDT documented in this encounter Plan of Treatment Not on file documented as of this encounter Visit Diagnoses Not on filedocumented in this encounter Care Teams Environmental Permitting Specialist Relationship Specialty Start Date End Date Amalia Walter [address] [place] [address] PCP - General 04/09/24 documented as of this encounter
--- OUTSIDE RECORDS SUMMARY | 2025-05-20 14:19 | XMS_ITS | Clinical Summary ---
Author Organization [employer] ([place], [place], [place], [place]) Address [address] [place] [address] Care Team Providers Care Brim Rounder Name Role Phone Amalia Walter Primary Care Provider [phone] Allergies Active Allergy Reactions Criticality Noted Date [...] Date Tien rded Speak language other than Malawian at home Not on file 03/12/2024 Want [...] 04/17/2024 8:56 AM EDT Plan of Treatment Health Maintenance Due Date Last Done Comments CT Colonography 1965 Colonoscopy 1965 Colorectal Cancer Screening 1965 Diabetic Kidney Health Evaluation (KED) 1965 FOBT/FIT 1965 Fit-DNA (Cologuard) 1965 Sigmoidoscopy 1965 Diabetic Eye Exam 1974 Depression Screening (12+) 1976 HIV Screening 1979 Hepatitis C Screening 1982 DTAP/TDAP/TD VACCINES (1 - Tdap) 1983 Pneumococcal 50+ years (1 of 2 - PCV) 1983 Pap Smear 1985 Breast Cancer Screening 2004 Lipid Panel 2009 COVID-19 VACCINE ( - season) 2024 Hemoglobin A1C 10/10/2024 04/09/2024 Tobacco Cessation Counseling and Screening (12+) 04/17/2025 04/17/2024 Influenza Vaccine (#1) 2025 11/01/2013 Shingles Vaccine (Zoster) Completed 01/12/2021, Medical Devices Implanted Type Area Commercial Credit Specialist Device Identifier Shelf Expiration Date Model / Serial / Lot Psn Keel Spkd 0 Sz F Oss L [id number]- 01 - [id number] Implanted:Qt y: 1 on 04/17/2024 at [facility] [employer] Left: Knee RUPERT:RUPERT [id number] 07/07/2033 42-5350-0 75-01 / / [id number] Psn Fem Cr Pps Cocr Nrw Sz9 L 41-0450-014- 01 - [id number] Implanted:Qt y: 1 on 04/17/2024 at [facility] [employer] Left: Knee RUPERT:RUPERT [id number] 02/14/2033 42-5080-0 66-01 / / [id number] Psn Art Surf 10mm 8-11/E-F Lt [id number]- 10 - [id number] Implanted:Qt y: 1 on 04/17/2024 at [facility] [employer] Left: Knee RUPERT:RUPERT [id number] 12/20/2028 42-5121-0 08-10 / / [id number] Procedures Procedure Name Priority Date/Time Associated Diagnosis Comments HEMOGLOBIN A1C Routine 04/09/2024 2:56 PM EDT Preop testing from Last 3 Months or Most Recently Relevant to Health Maintenance Results * Hemoglobin A1c (04/09/2024 2:56 PM EDT) Hemoglobin A1C 6.5 % 04/09/2024 6:57 PM EDT [facility] Comment: Hemoglobin A1C levels are related to mean glucose during the preceding 2-3 months. Less than 7% demonstrates glycemic control in diabetic patients. Hemoglobin AlC % Suggested Diagnosis > or = 6.5 Diabetic 5.7 - 6.4 Prediabetic <5.7 Non-diabetic eAVG Glucose 139.85 mg/dL 04/09/2024 6:57 PM EDT [facility] Blood Venipuncture / Unknown 04/09/2024 2:56 PM EDT 04/09/2024 4:30 PM EDT Nicholas Castro MD LAB BLOOD ORDERABLES Final Result [facility] [address] [id number] [phone] from Last 3 Months or Most Recently Relevant to Health Maintenance Insurance BLUE CROSS/BLUE SHIELD Advance Directives For more information, please contact: [phone] * Full Code (Latest Code Status on File) Date Activated Date Inactivated Comments 04/17/2024 1:15 PM 04/18/2024 2:19 PM * Full Code Date Activated Date Inactivated Comments 04/17/2024 7:55 AM 04/17/2024 1:15 PM Care Teams Brim Rounder Relationship Specialty Start Date End Date Amalia Walter [address] [place] [address] (work) PCP - General 04/09/24
--- OUTSIDE RECORDS SUMMARY | 2025-05-20 14:20 | XMS_ITS | Encounter Summary ---
Author Organization Healthcare Address [address] [place] [address] Care Team Providers Care Sushi Chef Name Role Phone Amalia Walter SUPERVISOR HOT DIP PLATING Primary Care Provider [phone] Encounter Details Date Type Department Care Team (Late Contact Info) Description 03/07/2025 Outside Procedure External Location [address] [place] [address] Pepito Rosales MD [address] [place] [address] Social History Tobacco Use Types Packs/Day Years Used Date Smoking Tobacco: Former Smokeless Tobacco: Never Alcohol Use Standard Drinks/Week Comments Yes 0 [...] on file documented as of this encounter Plan of Treatment Upcoming Encounters Date Type Department Care Team (Late st Contact Info) Description 11/21/2025 9:40 AM EST Office Visit [facility] [address] [place] [address] Kristyn Gusman, SUPERVISOR HOT DIP PLATING [address] [address] 03/06/2026 8:45 AM EDT Office Visit Obstetrics & Gynecology [address] [place] [address] Pepito Rosales MD [address] [place] [address] documented as of this encounter Procedures Procedure Name Priority Date/Time Associated Diagnosis Comments MAMMOGRAPHY BREAST SCREENING TOMOSYNTHESIS BILATERAL 03/07/2025 3:49 PM EDT documented in this encounter Results * Mammography Breast Screening Tomosynthesis Bilateral (03/07/2025 3:49 PM EDT) Anatomical Region Laterality Modality Breast Bilateral Mammography 03/07/2025 3:49 PM EDT Narrative 03/07/2025 4:18 PM EDT [facility] [address] [place] [address] Name: ZEHRA SHEPHERD Exam Date: 03/07/2025 : 1965 Age 59 years Gender: F Physician: PEPITO ROSALES Facility: [facility] Facility HSV: Outpatient Exam: TITUS SCRN MAMMO [...] the patient has breast surgery or biopsy, FDA/MQSA Regulatory Guidelines mandate that this facility receive pathologic results for follow-up correlation. Electronically signed by: Easton Orellana MD 03/07/2025 04:15 PM EDT RP Dictated By: Easton Orellana Transcribed By: Transcribed On: 03/07/2025 4:06 PM Electronically signed by: Easton Orellana 03/07/2025 Thank you for referring ZEHRA SHEPHERD to [facility]. Legally authenticated by LORRAINE CHILDS 2025-03-07 16:06:10 Procedure Note Provider, [facility] - 03/07/2025 [place] [address] Name: ZEHRA SHEPHERD Exam Date: 03/07/2025 : 1965 Age 59 years Gender: F Physician: PEPITO ROSALES Facility: [facility] Facility HSV: Outpatient Exam: TITUS SCRN MAMMO [...] the patient has breast surgery or biopsy, FDA/MQSA Regulatory Guidelines mandate that this facility receive pathologicresults for follow-up correlation. Electronically signed by: Easton Orellana MD 03/07/2025 04:15 PM EDTRP Dictated By: Easton Orellana Transcribed By: Transcribed On: 03/07/2025 4:06 PM Electronically signed by: Easton Orellana 03/07/2025 Thank you for referring ZEHRA SHEPHERD to [facility]. Legally authenticated by LORRAINE CHILDS 2025-03-07 16:06:10 us Pepito Rosales MD IMG BI PROCEDURES Final Result documented in this encounter Visit Diagnoses Not on filedocumented in this encounter Additional Health Concerns Assessment Noted Time PHQ-9 Depression Total Score: 0 02/27/20 9:23 AM EDT A fall risk assessment has been complete d for the patient 02/26/2025 9:23 AM EDT A Body Mass Index follow-up plan has been documented for the patient 02/26/2025 9:39 AM EDT documented as of this encounter Care Teams Sushi Chef Relationship Specialty Start Date End Date Amalia Walter APRN [address] [place], [place] [id number] PCP - General 09/17/24 documented as of this encounter
--- OUTSIDE RECORDS SUMMARY | 2025-05-20 14:20 | XMS_ITS | Encounter Summary ---
Author Organization Healthcare Address [address] [place] [address] Care Team Providers Care Cogeneration Operator Name Role Phone Amalia Walter PERSONAL SECRETARY Primary Care Provider [phone] Encounter Details Date Type Department Care Team (Late st Contact Info) Description 03/07/2025 Results Follow-Up Obstetrics & Gynecology [address] [place] [address] Pepito Rosales MD [address] [place] [address] Social History Tobacco Use Types [...] Description 11/21/2025 9:40 AM EST Office Visit [facility] [address] [place] [address] Kristyn Gusman, PERSONAL SECRETARY [address] [facility] [address] [place] [address] 03/06/2026 8:45 AM EDT Office Visit Obstetrics & Gynecology [address] [place] [address] Pepito Rosales MD [address] [place] [address] documented as of this encounter Visit Diagnoses Not on filedocumented in this encounter Additional Health Concerns Assessment Noted Time PHQ-9 Depression Total Score: 0 02/27/20 25 9:23 AM EDT A fall risk assessment has been complete d for the patient 02/26/2025 9:23 AM EDT A Body Mass Index follow-up plan has been documented for the patient 02/26/2025 9:39 AM EDT documented as of this encounter Care Teams Cogeneration Operator Relationship Specialty Start Date End Date Amalia Walter APRN [address] [place] [address] PCP - General 09/17/24 documented as of this encounter
--- OUTSIDE RECORDS SUMMARY | 2025-05-20 14:20 | XMS_ITS | Continuity of Care Document ---
Author Organization [place] [facility], Main Office Address [address] [place] [address] Care Team Providers Care Warping Mill Operator Name Role Phone JENNIFER MCCORD Primary Care Provider [phone] Assessment No assessment recorded. Plan of Treatment Reminders Order Date Submit Date Provider Last Modified By Organization Details Last Modified Time Details Appointments Hyperb akila Therap y-120 2024 08:00A M [facility] Not available Not available Not available [facility] ak[facility] Therap y-120 2024 08:00A M [facility] Not available Not available Not available Hyperb akila Therap y-120 2024 08:00A M [facility] Not available Not available Not available Hyperb akila Therap y-120 2024 08:00A M [facility] Not available Not available Not available Hyperb akila Therap y-120 2024 01:00P M [facility] Not available Not available Not available Hyperb akila Therap y-120 2024 01:00P M [facility] Not available Not available Not available Hyperb akila Therap y-120 2024 01:00P M [facility] Not available Not available Not available Hyperb akila Therap y-120 2024 01:00P M [facility] Not available Not available Not available Hyperb akila Therap y-120 2024 01:00P M [facility] Not available Not available Not available Hyperb akila Therap y-120 2024 01:00P M [facility] Not available Not available Not available Hyperb akila Therap y-120 2024 01:00P M [facility] Not available Not available Not available Hyperb akila Therap y-120 2024 01:00P M [facility] Not available Not available Not available Hyperb akila Therap y-120 2024 01:00P M [facility] Not available Not available Not available Hyperb akila Therap y-120 2024 01:00P M [facility] Not available Not available Not available Hyperb akila Therap y-120 2024 01:00P M [facility] Not available Not available Not available Hyperb akila Therap y-120 2024 01:00P M [facility] Not available Not available Not available Hyperb akila Therap y-120 2024 01:00P M [facility] Not available Not available Not available Hyperb akila Therap y-120 2024 01:00P M [facility] Not available Not available Not available Hyperb akila Therap y-120 2024 01:00P M [facility] Not available Not available Not available Hyperb akila Therap y-120 2024 01:00P M [facility] Not available Not available Not available Hyperb akila Therap y-120 2024 01:00P M [facility] Not available Not available Not available Hyperb akila Therap y-120 2024 01:00P M [facility] Not available Not available Not available Hyperb akila Therap y-120 2024 01:00P M [facility] Not available Not available Not available Hyperb akila Therap y-120 2024 01:00P M [facility] Not available Not available Not available Hyperb akila Therap y-120 2024 01:00P M [facility] Not available Not available Not available Hyperb akila Therap y-120 2024 01:00P M [facility] Not available Not available Not available Hyperb akila Therap y-120 2024 01:00P M [facility] Not available Not available Not available Hyperb akila Therap y-120 2024 01:00P M [facility] Not available Not available Not available Hyperb akila Therap y-120 08/15/ 2025 01:00P M [facility] Not available Not available Not available Hyperb akila Therap y-120 2024 01:00P M [facility] Not available Not available Not available Hyperb akila Therap y-120 2024 01:00P M [facility] Not available Not available Not available Lab None record ed. Referral None record ed. Procedures None record ed. Surgeries None record ed. Imaging None record ed. Medication Orders None record ed. Patient TargetsNo targets recorded. Patient Instructions Encounter Date Encounter Id Patient Instructions Last Modified By Organization Details Last Modified Time 04/23/2025 [id number] BACKGROUND 59 y/o female diabetic with moderately good control via insulin and orals presents with suture line failure distally after a partial Right ray amputation for diabetic chronic ulceration and active local sepsis with early generalized sepsis some 2 weeks previously. Very unlikely this open area will re-close with conventional care; exam suggests microvascular deficit in the tissue as macro-vascular exam is unremarkable, and, no gross tissue sepsis present. Recommendation is HBOT using hard chamber with 100% oxygen at 2.0 KATHY for 40 sessions, one daily except weekends, for 90 min per session using 2 x 5 min air breaks Diagnoses: T86.821; E11.621; L97.513 Mariano Farley MD ____ ____ Session notes Today's date: 23Apr2025 Session # 16 of 40 planed Next planned HBOT: 24Apr2025 22May - Found safe for HBOT this date and completed full session with no problem. Pressurized more slowly as first session. She had not eaten for several hours and had taken baseline insulin so we had her take some nutrition and sent glucose gel into chamber; she had no hypoglycemic symptoms. Tolerated session very well with no ear changes and good BP and glucose control. NATHAN DONIS 23May - Cleared for HBOT this day and completed full session with no problem. NATHAN DONIS 24May - this is Monday; we are continuing HBOT through weekend due to acuity and extent of her skin ischemia. Deemed safe for HBOT this day and completed full session free of problem. NATHAN DONIS 25May - Monday. Again found safe for HBOT this day and completed full session uneventfully. NATHAN DONIS 26May - . Deemed safe for HBOT this day and completed full session without problem. After treatment, I re-examined her Right foot. There is already clearly visible improvement in the closure flaps from the Right 2s partial ray amputation, especially noticeable on the lateral flap. There is an opening at the closure apex which still drains and with some ABX packing extruding. NATHAN DONIS 27May - Deemed safe for HBOT this date and completed full session uneventfully. Tomorrow she returns to her sander machine for follow up. NATHAN DONIS 28May - not here due to conflicting medical appointment. NATHAN DONIS 29May - Cleared for HBOT this date and completed full session without problem. NATHAN DONIS 30May - Found safe for HBOT this date and completed full session without problem. She has also been back to see her Yardage Estimator, Dr Catherine Weathers, who Ms Shepherd states was pleased with progress. NATHAN DONIS 02Jun - Patient cleared for HBOT today. VS stable. FSBG within range. Patient completed full session with no problem. Lg Agudelo NATIONAL ACCOUNT DIRECTOR 03Jun - We received last week's note from her sander machine and Dr Weathers expressed satisfaction with progress. Case reviewed today and note she has 20 more Sessions authorized. To get more sessions authorized will require unresolved remaining issues which will need to be carefully assessed. NATHAN DONIS 04Jun - Cleared for HBOT this date and completed full session without problem. NATHAN DONIS 05Jun - Deemed safe for HBOT this date and completed full session free of problem. NATHAN DONIS 06Jun - Deemed safe for HBOT this date and completed full session free of problem. NATHAN DONIS 09Jun - Patient cleared for HBOT today. VS stable. FSBG within range. Patient completed full session with no problem. Lg Agudelo NATIONAL ACCOUNT DIRECTOR 10Jun - Patient cleared for HBOT today. VS stable. FSBG within range. Patient completed full session with no problem. Lg Agudelo NATIONAL ACCOUNT DIRECTOR 11Jun - Patient deemed safe for HBOT today. VS stable. FSBS pre-treatment and post-treatment within range. Patient completed full session with no problem. Lg Agudelo NATIONAL ACCOUNT DIRECTOR Not available 04/23/2025 14:46:54 Reason for Referral None Reported. Procedures Surgical History Date Name Laterality Status Provider Name and Address Organization Details Recorded Time 05/20/20 25 [facility] Therapy Treatment Form active [facility] - [facility] 05/20/2025 09:41:29 05/19/20 25 [facility] Therapy Treatment Form completed [facility] 05/19/2025 09:45:34 05/16/20 25 [facility] Therapy Treatment Form completed [facility] 05/16/2025 09:41:57 05/15/20 25 [facility] Therapy Treatment Form completed [facility] - [facility] 05/15/2025 09:46:49 05/14/20 25 [facility] Therapy Treatment Form completed [facility] 05/14/2025 14:06:43 05/13/20 25 [facility] Therapy Treatment Form completed [facility] 05/13/2025 14:14:00 05/12/20 25 [facility] Therapy Treatment Form completed [facility] 05/12/2025 14:06:32 05/09/20 25 [facility] Therapy Treatment Form completed [facility] 05/09/2025 14:20:41 05/08/20 25 [facility] Therapy Treatment Form completed [facility] 05/08/2025 14:16:34 05/07/20 25 [facility] Therapy Treatment Form completed [facility] 05/07/2025 14:34:11 05/06/20 25 [facility] Therapy Treatment Form completed [facility] 05/06/2025 14:33:30 05/05/20 25 [facility] Therapy Treatment Form completed [facility] 05/05/2025 14:39:41 05/02/20 25 [facility] Therapy Treatment Form completed [facility] 05/02/2025 14:38:10 05/01/20 25 [facility] Therapy Treatment Form completed [facility] 05/01/2025 14:30:47 04/30/20 25 [facility] Therapy Treatment Form completed [facility] 04/30/2025 14:50:00 04/29/20 25 [facility] Therapy Treatment Form completed Zuleyka [facility] - [facility] 04/29/2025 15:42:38 04/28/20 25 [facility] Therapy Treatment Form completed [facility] 04/28/2025 13:47:28 04/25/20 25 [facility] Therapy Treatment Form completed [facility] 04/25/2025 14:24:24 04/24/20 25 [facility] 04/24/2025 14:37:59 04/23/20 25 [facility] Therapy Treatment Form completed [facility] 04/23/2025 13:52:55 04/22/20 25 [facility] Therapy Treatment Form completed [facility] 04/22/2025 14:27:44 04/21/20 25 [facility] Therapy Treatment Form completed [facility] 04/21/2025 14:09:03 04/18/20 25 [facility] Therapy Treatment Form completed [facility] 04/18/2025 14:22:52 04/17/20 25 [facility] Therapy Treatment Form completed [facility] 04/17/2025 14:14:34 04/16/20 25 [facility] Therapy Treatment Form completed [facility] 04/16/2025 14:24:52 04/15/20 25 [facility] Therapy Treatment Form completed [facility] 04/15/2025 14:43:45 04/14/20 25 [facility] Therapy Treatment Form completed [facility] 04/14/2025 14:39:53 04/11/20 25 [facility] Therapy Treatment Form completed [facility] 04/11/2025 14:38:24 04/10/20 25 [facility] Therapy Treatment Form completed Ngozi gonzalez [place] - [facility] 04/10/2025 14:35:50 04/08/20 25 [facility] Therapy Treatment Form completed Ngozi [facility] - [facility] 04/08/2025 14:29:12 04/07/20 25 [facility] Therapy Treatment Form completed Nahomi [place] - [facility] 04/07/2025 11:54:59 04/06/20 25 [facility] Therapy Treatment Form completed Nahomi [place] [facility] 04/06/2025 12:08:17 04/05/20 25 [facility] Therapy Treatment Form completed Zuleyka Morales [place] - [facility] 04/05/2025 11:59:40 04/04/20 25 [facility] Therapy Treatment Form completed Zuleyka Beyden [place] [facility] 04/04/2025 17:25:52 04/03/20 25 [facility] Therapy Treatment Form completed Mariano Farley MD [place] - [facility] 04/03/2025 18:06:39 04/03/20 25 Wound completed Shona Napoleon [facility] 04/03/2025 13:47:21 03/13/20 24 Knee Replacement completed Shonajeses Bender [facility] 04/03/2025 13:56:18 04/13/20 23 coronary artery bypass grafts x 4 completed Shonajesse Bender [facility] 04/03/2025 13:54:46 12/14/19 23 Gallbladder Surgery completed Shona Bender [facility] 04/03/2025 13:54:58 11/13/19 23 biopsy of skin completed Shona Bender [facility] 04/03/2025 14:10:49 11/13/19 21 release of trigger finger completed Shona Bender [facility] 04/03/2025 13:55:11 11/13/19 21 hammer toe operation completed Shona Bender [facility] 04/03/2025 13:55:27 11/13/19 19 procedure on shoulder completed Shona Bender [facility] 04/03/2025 13:55:44 11/13/19 17 thumb surgery completed Shonajesse Bender [facility] 04/03/2025 13:56:03 11/13/18 94 section completed Shona [facility] - [facility] 04/03/2025 13:57:12 11/13/18 92 section completed Shona [facility] - [facility] 04/03/2025 13:57:07 11/13/18 84 appendectomy completed Shona [facility] - [facility] 04/03/2025 13:57:28 11/13/18 77 tonsillectomy and adenoidectomy completed Shona [facility] - [facility] 04/03/2025 13:57:37 Imaging Results None recorded. Procedure Notes None recorded. Medical Equipment None Reported. Allergies No known drug allergies Medications Name Sig Start Date Stop Date Status Note LastModified by Organization Details LastModified Time bisoprolol 10 mg-hydrochloro thiazide 6.25 mg tablet Take 1 tablet every day by oral route. active Not Available Not Available No t Available diclofenac 50 mg-misoprostol 200 mcg tablet,immed.a nd delayed release Take 1 tablet 3 times a day by oral route. active Not Available Not Available No t Available Asprin Ec Low Dose 81 mg tablet,delayed release Take 1 tablet every day by oral route. active Not Available Not Available No t Available Plavix active Not Available Not Availa ble Not Available losartan active Not Available Not Avai lable Not Available Lortab active Not Available Not Availa ble Not Available metformin active Not Available Not Seema ilable Not Available Valtrex active Not Available Not Avail able Not Available gabapentin active Not Available Not Av ailable Not Available rosuvastatin active Not Available Not Available Not Available Jardiance active Not Available Not Seema ilable Not Available Mounjaro active Not Available Not Avai lable Not Available Vitals Date Recorded Heart rate Respiratory rate Body temperature Oxygen saturation Oxygen saturation in Arterial blood by Pulse oximetry Heart rate Respiratory rate Body temperature Oxygen saturation Oxygen saturation in Arterial blood by Pulse oximetry Systolic And Diastolic Systolic And Diastolic Provider Name and Address Organization Details Last Updated DateTime 5 92 /min 16 /min 97.5 [degF] 100 % 100 % 69 /min 16 /min 97.7 [degF] 100 % 100 % 121/72 mm[Hg] 116/77 mm[Hg] Ngozi gonzalez [place] - [facility] 5 13:53:17 Social History None recorded. Functional Status None recorded. Mental Status None recorded. Family History Nothing Reported. Medical History Condition Response Allergies/Hayfever Y Heart Problems Y Coronary Artery Disease N Gout N Blood Diseases N Ear or Hearing Problems N Hyperthyroidism N Breast Cancer N Thyroid Problems N COPD N Hypothyroidism N Depression N Lung Disease N GI Problems N Developmental or Behavioral Disorders N Skin Problems Y Anemia N Anxiety Disorder N Diabetes Y Muscle, Joint, or Bone Problems N Arthritis Y Seizures/Epilepsy N AIDS/HIV N Congestive Heart Failure (CHF) N Cancer Y Stroke N Diverticulitis N Asthma N Endometriosis N Bladder or Kidney Problems N Liver Disease Y Heart Disease N Fibromyalgia N Headaches N Chronic Ear Infections N Hypertension N Osteoporosis N Kidney Disease N Gynecological HistoryNo gynecological history recorded. Obstetrics History GPAL:G 0 P 0 0 0 0 Past Encounters Encounter ID Performer Location Encounter Start Date Encounter Closed Date Diagnosis/Indication Diagnosis SNOMED-CT Code Diagnosis ICD10 Code Diagnosis Note [id number] Mariano Farley MD Main Office [address] [place] [address] 04/03/2025 13:39:59 04/03/2025 16:50:46 [id number] Mariano Farley MD Main Office [address] [place] [address] 04/03/2025 15:32:51 04/03/2025 18:10:03 390Gloria Farley MD Main Office [address] [place] [address] 04/04/2025 15:39:00 04/08/2025 08:19:46 Jessica Farley MD Main Office [address] [place] [address] 04/05/2025 10:12:41 04/08/2025 08:22:20 [email or web address] Mariano Farley MD Main Office [address] [place] [address] 04/06/2025 10:28:04 04/08/2025 08:26:15 Lis Farley MD Main Office [address] [place] [address] 04/07/2025 09:45:56 04/08/2025 08:30:09 Corbin Farley MD Main Office [address] [place] [address] 04/08/2025 12:11:52 04/08/2025 18:52:34 [id number] Mariano Farley MD Main Office [address] [place] [address] 04/10/2025 12:15:32 04/11/2025 13:41:15 [id number] Mariano Farley MD Main Office [address] [place] [address] 04/11/2025 12:17:41 04/14/2025 08:14:43 [id number] Mariano Farley MD Main Office [address] [place] [address] 04/14/2025 12:22:08 04/14/2025 17:08:51 [id number] Mariano Farlye MD Main Office [address] [place] [address] 04/15/2025 12:29:05 04/15/2025 18:07:29 [id number] Mariano Farley MD Main Office [address] [place] [address] 04/16/2025 12:09:34 04/16/2025 16:28:25 [id number] Mariano Farley MD Main Office [address] [place] [address] 04/17/2025 12:00:06 04/17/2025 15:57:18 [id number] Mariano Farley MD Main Office [address] [place] [address] 04/18/2025 12:10:37 04/18/2025 17:06:48 [id number] Mariano Farley MD Main Office [address] [place] [address] 04/21/2025 11:56:08 04/21/2025 16:04:26 [id number] Mariano Farley MD Main Office [address] [place] [address] 04/22/2025 11:58:46 04/22/2025 14:50:54 [id number] Mariano Farley MD Main Office [address] [place] [address] 04/23/2025 11:38:35 04/23/2025 14:47:00 Health Concerns Section Related Observation LastModified by Organization Detai ls LastModified Time None Recorded Concern Status LastModified by Organization Details LastModified Time None Recorded Payers Encounter Date Sequence Insurance Name Policy Number Policy Gregorio Covered Member ID Gregorio Member ID Guarantor Name 04/23/2025 1 [id number] Zehra Shepherd [id number] Zehra Shepherd OBGyn Episode No OBEpisode recorded.
--- OUTSIDE RECORDS SUMMARY | 2025-05-20 14:20 | XMS_ITS | Encounter Summary ---
Author Organization [facility] Address [address] [place] [id number] Phone Misbah [email or web address] Care Team Providers Care Claims Investigator Name Role Phone No, Provider Primary Care Provider Unavailabl e Encounter Details Date Type Department Care Team (Late st Contact Info) Description 09/18/2018 Ancillary Orders [address] [place] [address] Qing Godoy PA [address] [place] [address] Acute pain of right shoulder Social History Tobacco Use Types Packs/Day Years Used Date Smoking Tobacco: Never Assessed Comments No Sex and Gender Information Value Date Recorded Sex Assigned at Not on file Legal Sex Female 12:16 PM CDT Gender Identity Not on file Sexual Orientation Not on file documented as of this encounter Plan of Treatment Not on file documented as of this encounter Procedures Procedure Name Priority Date/Time Associated Diagnosis Comments AMB REFERRAL TO PHYSICAL THERAPY Routine 10/02/2018 9:05 AM EST Acute pain of right shoulder documented in this encounter Results * Ambulatory referral to Physical Therapy (10/02/2018 9:05 AM EST) Qing COLEMAN OUTPATIENT REFERRAL ORDERABL ES Final Result documented in this encounter Visit Diagnoses Diagnosis Acute pain of right shoulder documented in this encounter Care Teams Claims Investigator Relationship Specialty Start Date End Date No, Provider VICTOR MANUEL Nixon PCP - General Family Medicine 09/23/19 documented as of this encounter
--- OUTSIDE RECORDS SUMMARY | 2025-05-20 14:21 | XMS_ITS | Clinical Summary ---
Author Organization [facility] Address [address] [place] [id number] Phone [email or web address] Care Team Providers Care Manufactured Buildings Supervisor Name Role Phone No, Provider Primary Care Provider Unavailabl e Allergies Active Allergy Reactions Criticality Noted Date Comments Latex Rash Low 12/03/2018 Lisinopril Other (see comments) 06/05/2018 cough Medications Multiple Vitamins-Central Office Operator als (MULTIVITAMIN ADULT PO) Take by mouth. Active Ascorbic Acid (vitamin C) 1000 MG tablet Take 1,000 mg by mouth 1 (one) time each day. Active VITAMIN D PO Take 500 mg by mouth. Active Jardiance 10 MG tablet Take 1 tablet by mouth 1 (one) time each day. 2 Active metFORMIN XR (GLUCOPHAGE-XR ) 500 MG 24 hr tablet 2 Active diclofenac (VOLTAREN) 75 MG EC tablet 3 Active SM Aspirin Low Dose 81 MG EC tablet 3 Active Multiple Vitamins-Central Office Operator als (VISTA ADVANCED AREDS2 FORMULA PO) Take by mouth. Active bisoprolol (ZEBETA) 5 MG tablet 5 mg. 3 Active Continuous Blood Gluc Sensor (Dexcom G7 Sensor) [facility] Active Continuous Blood Gluc Aromatherapist (Dexcom G7 Aromatherapist) device Active rosuvastatin (CRESTOR) 10 MG tablet Take 1 tablet by mouth 1 (one) time each day. Active clopidogrel (PLAVIX) 75 MG tablet Take 1 tablet by mouth 1 (one) time each day. Active gabapentin (NEURONTIN) 400 MG capsule Take 1 capsule by mouth in the morning and 1 capsule before bedtime. Active losartan (COZAAR) 25 MG tablet Take 1 tablet by mouth 1 (one) time each day. 2 Active Mounjaro 5 mg/0.5mL SC Auto-injector Inject 5 mg under the skin 1 (one) time per week. Active Ozempic, 1 MG/DOSE, 4 MG/3ML solution pen-injector INJECT 1 MG UNDER THE SKIN EVERY WEEK 3 04/21/20 25 Discontinued Active Problems Problem Noted Date Diagnosed Date History of arthroscopy of knee 06/27/2019 Biceps tendinitis 03/27/2019 Injury of tendon of rotator cuff 12/20/2018 Return to work evaluation 06/05/2018 Acquired trigger finger 10/01/2015 Overview (04/11/2018): Health examination of defined subpopulation 07/14 Overview (04/11/2018): Sprain of back 11/28/2007 Overview (04/11/2018): Encounters Date Type Department Care Team Description 04/21/2025 10:00 AM EDT Office Visit [facility] [address] [place] [address] Ruddy Castillo, OD [place] of macula of both eyes (Primary Dx); Nuclear sclerosis of both eyes from Last 3 Months Social History Tobacco Use Types Packs/Day Years Used Date Smoking Tobacco: Former Cigarettes Q uit: 2013 Smokeless Tobacco: Never Tobacco Cessation:Counseling Given: Not Answered Intimate Partner Violence Answer Date R ecorded [...] Sign Reading Time Taken Comments Blood Pressure 134/84 10/18/2024 11:37 AM EST Pulse 77 10/18/2024 11:37 AM EST Temperature 36.2 C (97.2 F) 10/18/2024 11:37 AM EST Respiratory Rate 18 10/18/2024 11:37 AM EST Oxygen Saturation 97% 10/18/2024 11:37 AM EST Inhaled Oxygen Concentration - - Weight 83 kg (183 lb) 01/25/2024 3:56 PM EDT Height 175.3 cm (5' 9 ) 01/25/2024 3:56 PM EDT Body Mass Index 27.02 01/25/2024 3:56 PM EDT Plan of Treatment Health Maintenance Due Date Last Done Comments Dental Cleaning/Exam 1964 HIV Screening 1964 Hepatitis C Screening 1964 Covid-19 Immunization (#1) 1969 Cervical Cancer Screening 1980 Annual Preventive Exam 1982 Hep B Infection Screening - Triple Screen 1982 Tetanus Diphtheria and Pertussis Immunization (1 - Tdap) 1983 Colorectal Cancer Screening 1994 Influenza Immunization (#1) 07/14/202509/13, 08/10/2020, 07/30/2019, Additional history exists Breast Cancer Screening 03/07/2027 03/07/2025, 03/07 Hepatitis A Immunization Completed 019, 08/28/2018, 07/27/2018 Hepatitis B Immunization Completed 019, 08/28/2018, 07/27/2018 Zoster Immunization Completed 01/12/2021, 0 HIB Immunization Aged Out No longer e ligible based on patient's age to complete this topic HPV Immunization Aged Out No longer e ligible based on patient's age to complete this topic Pneumococcal: Ped (0 to 5 Yrs) and At-Risk Member (6 to 64 Yrs) Aged Out No longer eligible based on patient's age to complete this topic Polio Immunization Aged Out No longer eligible based on patient's age to complete this topic Insurance [facility] [id number] [place] [address] Care Teams Manufactured Buildings Supervisor Relationship Specialty Start Date End Date No, Provider [place], [place] PCP - General Family Medicine 09/23/19
--- NOTE | 2025-05-20 14:25 | XR_ITS ---
FINAL REPORT CLINICAL HISTORY: Right P/o f/u COMPARISON: 03/26/2025 FINDINGS: RIGHT FOOT 3 views of the right foot were obtained. There is no acute fracture or dislocation. There is amputation through the distal portion of the 2nd metatarsal with near-complete resorption of the previously noted antibiotic seeds. No new bony erosion or abnormality identified. Visualized joint spaces are normally aligned. Soft tissues are unremarkable. IMPRESSION: 2nd metatarsal amputation as above without new abnormality. Reviewed, Interpreted and Dictated by Aaron Solomon MD Transcribed by Jessica Stephens Authenticated and [facility]
[2025-05-20 14:53] LABS: Hematocrit 34.5 % (37.0-47.0); Hemoglobin 11.3 g/dL (12.2-16.2); Immature Granulocytes % 0.2 %; Mean Corpuscular HGB Conc 32.8 g/dL (31.8-35.4); Mean Corpuscular Hemoglobin 30.1 pg (27.0-31.2); Mean Corpuscular Volume 92.0 fl (81-99); Nucleated Red Blood Cells % 0 %; Platelet Count 169 K/mm3 (142-424); Red Blood Count 3.75 M/mm3 (4.20-5.40); Red Cell Distribution Width-SD 46.7 fL; White Blood Count 4.5 K/mm3 (4.8-10.8)
[2025-05-20 15:19] LABS: Alanine Aminotransferase 45 U/L (12-78); Albumin Level 5.0 g/dl (3.5-5.0); Albumin/Globulin Ratio 2.5 (1.1-1.8); Alkaline Phosphatase 65 U/L (38-126); Anion Gap 21.6 mEq/L (5-15); Aspartate Amino Transferase 43 U/L (14-36); Bilirubin,Total 0.5 mg/dl (0.2-1.3); Blood Urea Nitrogen 28 mg/dl (7-17); Calcium 9.8 mg/dl (8.4-10.2); Carbon Dioxide 22 mmol/L (22.0-30.0); Chloride 102 mmol/L (98-107); Creatinine,Serum 0.80 mg/dl (0.52-1.04); Estimated Glomerular Filt Rate 73 ml/min (>60); GFR (African American) 89 ML/MIN (>60); Globulin 2.0 g/dL (1.3-3.2); Glucose 106 mg/dl (74-100); Potassium 4.6 mmoL/L (3.5-5.1); Sodium 141 mmol/L (136-145); Total Protein,Serum 7.0 g/dl (6.3-8.2)
[2025-05-20 21:21] LABS: Hemoglobin A1C 7.9 % (4.0-6.0)
[2025-05-22 11:23] LABS: C-Reactive Protein < 1.0 mg/L (0-4)
== END 2025-05-20 23:59 | disposition home or self-care (01) ==
LOC: LAB 14:15
PROVIDERS: PCP Nurse Practitioner Family; Visit Provider Podiatrist
DX: L97.512 Non-pressure chronic ulcer of other part of right foot with fat layer exposed (principal); E08.621 Diabetes mellitus due to underlying condition with foot ulcer; M79.671 Pain in right foot; M79.672 Pain in left foot
CPT/HCPCS: 36415; 73630; 80053; 83036; 85025; 85651; 86140

== ENCOUNTER 2025-06-01 10:48 | Emergency (ER) | payer BC, SELFPAY ==
--- OUTSIDE RECORDS SUMMARY | 2025-04-21 10:00 | XMS_ITS | Encounter Summary ---
Author Organization [facility] Address [address] [place] [phone] Phone [email or web address] Care Team Providers Care Burrer Operator Name Role Phone No, Provider Primary Care Provider Unavailabl e Reason for Visit * Reason Comments Eye Exam Personal eye exam. Encounter Details Date Type Department Care Team (Late st Contact Info) Description 04/21/2025 10:00 AM EDT Office Visit [facility] [place] [facility] [address] [place] [address] JonathanRuddy, OD [address] [place] [address] Drusen of macula of both [...] 09/23 Wearing Rx Wearing Rx Sphere Cylinder [place] Add Right [place] -1.00 105 +2.25 Left +1.75 -1.00 073 +2.25 Type: LYN Keratometry Keratometry (Automated) K1 [place] K2 [place] Mires Right 41.75 010 43.00 100 Normal Left 41.00 178 42.75 088 Normal Manifest Refraction Manifest Refraction Sphere Cylinder [place] Dist VA Add Near [place] Right +0.25 -1.00 105 20/20 +2.25 J1+ Left +1.75 -1.00 073 20/25 +2.25 J1 Eyeglass Final Rx Eyeglass Final Rx Sphere Cylinder [place] Dist VA Add Near [place] Right +0.25 [...] eyes documented in this encounter Care Teams Burrer Operator Relationship Specialty Start Date End Date No, Provider [place], [place] PCP - General Family Medicine 09/23/19 documented as of this encounter
--- NOTE | 2025-06-01 10:50 | HMH.EDGENADL ---
Discharge Plan Disposition Patient Disposition: Home, Self-Care Prescriptions Prescriptions: No Action aspirin 81 mg tablet,chewable 81 mg PO DAILY Qty: 30 6RF Jardiance 10 mg tablet 10 mg PO DAILY Qty: 30 2RF gabapentin 400 mg capsule 400 mg PO TID Patient Comments: TAKE 1 CAPSULE BY MOUTH THREE TIMES DAILY metformin 500 mg tablet extended release 24 hr 500 mg PO DAILY Patient Comments: TAKE 1 TABLET BY MOUTH ONCE DAILY (DME) Dexcom G7 Sensor Device See Rx Instructions .ROUTE .MEDSUPPLY Qty: 1 Patient Comments: USE DIRECTED Rx Instructions: As directed diclofenac sodium 50 mg tablet,delayed release (DR/EC) 50 mg PO BIDP PRN (Reason: Mild Pain (Scale Score 1-4)) (DME) Diabetic Shoes (DME) Misc See Rx Instructions .ROUTE .MEDSUPPLY Qty: 1 0RF Rx Instructions: [facility] Please dispense ONE (1) pair of Diabetic Shoes with inserts bisoprolol fumarate 5 mg tablet 5 mg PO DAILY Qty: 90 1RF fluconazole 200 mg tablet 200 mg PO Q24H 10 Days Qty: 10 0RF fluticasone propionate 50 mcg/actuation spray,suspension 1 spray INTRANASAL DAILY Patient Comments: USE 1 SPRAY(S) IN EACH NOSTRIL ONCE DAILY Mounjaro 5 mg/0.5 mL pen injector 5 mg SQ WEEKLY clobetasol 0.05 % cream 1 applic topical BID clopidogrel 75 mg tablet 75 mg PO DAILY losartan 25 mg tablet 25 mg PO DAILY rosuvastatin 10 mg tablet 10 mg PO HS hydrocodone-acetaminophen 7.5-325 mg Tablet 1 tab PO Q6HP PRN (Reason: Moderate Pain (4-6)) Qty: 11 0RF valacyclovir 500 MG tablet 500 mg PO DAILY Referrals Follow up/Referrals: Amalia Walter APRN [Primary Care Provider, Medical] - See instructions Activity Restrictions/Add. Instructions Additional Instructions/Restrictions: I do not see any evidence of infection or vascular issues on your exam today. You will likely have some swelling and itching due to the wasp sting for the next several days. Continue to take Benadryl for your symptoms. You can use ice packs on the area to help reduce swelling. Follow-up with your primary care physician if symptoms do not improve. If you develop any new or worsening symptoms, such as increased redness to the area that streaks up the arm, fevers, or if you get concerned for your health for any reason, return to the emergency department for evaluation Clinical Impressions Clinical Impression: Wasp sting, Swelling of right hand Print Language Print Language: Italian Discharge ED Provider: Arjun Martinez General Adult HPI General Stated complaint: Stung by wasp: R hand swelling/itches Time Seen by Provider: 06/01/25 10:49 Mode of Arrival: Ambulatory Source of Information: Patient Limitations: No Limitations History of Present Illness HPI narrative: Zehra Shepherd is a 59-year-old female with a history of diabetes with recent toe amputation who presents to the emergency department for complaints of right hand swelling after a wasp sting. Patient states that she was stung by a wasp on the right hand on Monday and has had swelling and itchiness near the thumb and dorsum of the hand ever since. She states that it has come and gone over the last few days but woke up today and it was more swollen than previously. She denies any increased redness or difficulty moving her wrist. She denies any numbness or tingling. She states with her recent toe amputation, her daughter was concerned and told her to come to the emergency department. She denies any difficulty breathing or fevers. Related Data Home Medications ?Medication ?Instructions ?Recorded ?Confirmed valacyclovir 500 mg tablet 500 mg PO DAILY cold sores 09/08/20 05/20/25 blood-glucose sensor (RailRunnercom G7 #1 ea 08/22/24 05/20/25 Sensor device) gabapentin 400 mg capsule 400 mg PO TID 08/22/24 05/20/25 metformin 500 mg tablet,extended 500 mg PO DAILY 08/22/24 05/20/25 release 24 hr diclofenac sodium 50 mg 50 mg PO BIDP PRN Mild Pain (Scale 11/04/24 05/20/25 tablet,delayed release Score 1-4) clobetasol 0.05 % topical cream 1 applic topical BID 03/25/25 05/20/25 clopidogrel 75 mg tablet 75 mg PO DAILY 03/25/25 05/20/25 fluticasone propionate 50 1 spray intranasal DAILY 03/25/25 05/20/25 mcg/actuation nasal spray,suspension losartan 25 mg tablet 25 mg PO DAILY 03/25/25 05/20/25 rosuvastatin 10 mg tablet 10 mg PO HS 03/25/25 05/20/25 tirzepatide 5 mg/0.5 mL 5 mg SQ WEEKLY 03/25/25 05/20/25 subcutaneous pen injector (Joss) Previous Rx's ?Medication ?Instructions ?Recorded aspirin 81 mg chewable tablet 81 mg PO DAILY #30 tabs 08/07/23 empagliflozin 10 mg tablet 10 mg PO DAILY #30 tabs 08/07/23 (Jardiance) bisoprolol fumarate 5 mg tablet 5 mg PO DAILY #90 tabs 02/17/25 hydrocodone 7.5 mg-acetaminophen 1 tab PO Q6HP PRN Moderate Pain 03/27/25 325 mg tablet (4-6) #11 tabs fluconazole 200 mg tablet 200 mg PO Q24H Fungal infection 10 04/15/25 days #10 tabs Diabetic Shoes (DME) #1 ea 05/08/25 Allergies Allergy/AdvReac Type Severity Reaction Status Date / Time lisinopril AdvReac cough Verified 05/01/25 08:40 PFSH PFS Disclaimer: The information contained in this section may have been updated after the patient was seen, as this information can be updated by other users. Medical History Foreign body in right foot GERD (gastroesophageal reflux disease) HLD (hyperlipidemia) Hammertoe of right foot Trigger finger TRIGGER FINGER SURGERY RIGHT HAND Sleep apnea Allergies Skin cancer Encounter for pre-operative cardiovascular clearance Palpitations Ex-smoker Coronary artery disease Hyperlipidemia CONNOR (obstructive sleep apnea) FH: CAD (coronary artery disease) Diabetes Surgical History Hx of cardiac cath Hx of section X2 H/O arthroscopic knee surgery Hx of shoulder surgery RIGHT H/O adenoidectomy History of tonsillectomy History of appendectomy History of cholecystectomy History of knee replacement S/P coronary artery stent placement Family History Father Heart attack Brother Heart attack Social History Smoking Status: Never smoker alcohol intake: never substance use type: denies use current occupational status: employed Travel in the last 8 weeks?: None household members: none housing: house current occupation: [employer] caffeine: No Other Medical History Have you received the Flu Vaccine for this season: No Have you received the Pneumonia Vaccine: No ROS Obtained: Yes Systems reviewed as appropriate & no additional complaints except as documented Physical Exam General General appearance: alert and in no apparent distress Head Head exam: atraumatic Eye Eye exam: Present normal appearance ENT ENT exam: Present normal external ear exam Neck Neck exam: Present full ROM Chest Chest inspection: Present symmetric chest wall rise Respiratory Respiratory exam: Present normal lung sounds bilaterally; Absent respiratory distress Cardiovascular Cardiovascular exam: Present regular rate and normal rhythm Abdominal Exam Abdominal exam: Present soft Extremities Exam Extremities exam: Present normal inspection Back Exam Back exam: Present normal inspection Neurological Exam Neurological exam: Present alert and oriented X3 Psychiatric Psychiatric exam: Present normal affect Skin Skin exam: Present warm, dry and other (Right upper extremity: Mild amount of swelling in the dorsum of the hand and thumb with full range of motion of the wrist. No erythema or warmth to the area. 2+ radial pulses, less than 2-second capillary refill. Sensation grossly intact throughout all digits.) Medical Decision Making Medical Records Screening: Per USPSTF and CDC recommendations, given the prevalence of disease in our region, it is our hospital?s policy to screen for HIV and viral Hepatitis for all patients aged 18 and over and those with ongoing risk factors. [place] Inquiry Pt receiving controlled substance: No Medical Decision Narrative: Zehra Shepherd is a 59-year-old female with a history of diabetes with recent toe amputation who presents to the emergency department for complaints of right hand swelling after a wasp sting. Patient states that she was stung by a wasp on the right hand on Monday and has had swelling and itchiness near the thumb and dorsum of the hand ever since. She states that it has come and gone over the last few days but woke up today and it was more swollen than previously. She denies any increased redness or difficulty moving her wrist. She denies any numbness or tingling. She states with her recent toe amputation, her daughter was concerned and told her to come to the emergency department. She denies any difficulty breathing or fevers. On arrival, patient is normotensive, afebrile, breathing comfortably on room air with appropriate oxygen saturation. Physical exam, stated above, reveals an overall well-appearing female in no respiratory distress. She is speaking in full sentences. Right upper extremity shows some swelling to the dorsum of the right hand and thumb area but full range of motion of the wrist. No warmth or erythema is appreciated. Sensation is intact. Pulses are intact. Patient does not have any evidence of anaphylactic reaction or cellulitis based on physical exam. No additional workup is indicated at this time as patient symptomatology is most consistent with hymenoptera localized reaction. Discussed continue to use Benadryl at home for itching and ice packs to help reduce swelling. Encouraged her to follow-up with her primary care physician if symptoms do not improve or to return to the emergency department she develops any evidence of worsening swelling, redness or streaking up the arm as that may show evidence of infection. Return precautions were given. All questions were answered. She demonstrated understanding and was in agreement this plan. She was then discharged from the emergency department in stable condition. Critical Care Critical Care Time Critical Care Time: No
--- OUTSIDE RECORDS SUMMARY | 2025-06-01 10:54 | XMS_ITS | Encounter Summary ---
Author Organization [employer] ([place], [place], [place], [place]) Address [address] [place] [address] Care Team Providers Care Vocational Training Teacher Name Role Phone Amalia Walter Primary Care Provider [phone] Encounter Details Date Type Department Care Team (Late st Contact Info) Description 01/28/2021 Transcribed Document [facility] [address] [place] [address] ProviderEmely MD [address] [id number] Social History Tobacco Use Types Packs/Day Years [...] that pinch your toes. ??? 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 ??? Have a second toe that is [...] Follow these instructions at home: ??? Take lbul-mxi-yoozmig and prescription medicines only as told by [...] provider. Document Revised: 10/12/2018 Document Reviewed: 02/22/2017 [employer] Patient Education ? 2020 [employer] General Anesthesia, Adult, Care After This [...] activities are safe for you. ??? Take ofrl-wko-ajccrko and prescription medicines only as told by [...] provider. Document Revised: 11/02/2018 Document Reviewed: 06/15/2018 [email or web address] Patient Education ? 2020 [employer]. documented in this encounter Plan of Treatment Not on file documented as of this encounter Visit Diagnoses Not on filedocumented in this encounter Care Teams Vocational Training Teacher Relationship Specialty Start Date End Date Amalia Walter [address] [place] [address] PCP - General 04/09/24 documented as of this encounter
--- OUTSIDE RECORDS SUMMARY | 2025-06-01 10:54 | XMS_ITS | Encounter Summary ---
Author Organization [employer] ([place], [place], [place], [place]) Address [address] [place] [place] [address] Care Team Providers Care Washing Machine Installer Name Role Phone Amalia Walter Primary Care Provider [phone] Encounter Details Date Type Department Care Team (Late st Contact Info) Description 01/28/2021 Transcribed Document [facility] [address] [place] [address] ProviderEmely MD [address] [place] [address] Social History Tobacco Use Types [...] 1965 Associated Diagnoses: None Author: RANDA LEACH, MECHANICAL RELIABILITY ENGINEER Chief Complaint R foot pain Review of [...] painful ROM R foot. Integumentary: Warm, Dry, [place]. Neurologic: Alert, Oriented. Psychiatric: Cooperative, Appropriate mood [...] on filedocumented in this encounter Care Teams Washing Machine Installer Relationship Specialty Start Date End Date mayrageeta Amalia [address] [place] [address] PCP - General 04/09/24 documented as of this encounter
--- OUTSIDE RECORDS SUMMARY | 2025-06-01 10:54 | XMS_ITS | Encounter Summary ---
Author Organization [employer] ([place], [place], [place], [place]) Address [address] [place] [address] Care Team Providers Care Consultant Intern Name Role Phone Amalia Walter Primary Care Provider [phone] Encounter Details Date Type Department Care Team (Late st Contact Info) Description 01/28/2021 Transcribed Document [facility] [place] [address] [place] [address] ProviderEmely MD [address] [id number] Social History Tobacco Use Types Packs/Day Years [...] - Start Time: 01/28/21 12:31:00 (01/28/21 12:49:28) Electronically signed by Jeferson Fernandez Conversion Licensed Psychiatric Technician Cerner at 02/28/2023 7:32 PM CDT documented in this encounter Plan of Treatment Not on file documented as of this encounter Visit Diagnoses Not on filedocumented in this encounter Care Teams Consultant Intern Relationship Specialty Start Date End Date Amalia Walter [address] [place] [address] PCP - General 04/09/24 documented as of this encounter
--- OUTSIDE RECORDS SUMMARY | 2025-06-01 10:54 | XMS_ITS | Encounter Summary ---
Author Organization [employer] ([place], [place], [place], [place]) Address [address] [place] [address] Care Team Providers Care Health Information Management Director Name Role Phone Amalia Walter Primary Care Provider [phone] Encounter Details Date Type Department Care Team (Late st Contact Info) Description 01/28/2021 Transcribed Document [facility] [place] Family Medicine [address] [place] [address] ProviderEmely MD [address] [place] [address] Social History Tobacco Use Types [...] Emely ProviderMD - 01/28/2021 12:31 PM CDT [facility] Main OR IntraOp Summary Primary Physician: NORMA FOSTER DPM-POD Finalized Date/Time: 02/01/21 11:07:37 Pt. Name: ZEHRA ESPINO /Sex: 1965 Female Med Rec #: [id number] Physician: NORMA FOSTER DPM-POD Financial #: [id number] Pt. Type: O Room/Bed: Admit/Disch: 01/28/21 08:17:00 - 01/28/21 14:43:00 Institution: [facility] IntraOp Case Attendance Entry 1 Entry 2 Entry 3 Case Attendee NORMA FOSTER DPM-Lisbeth Puckett, JASMINE FRANKLIN RN Role Performed Surgeon/Proceduralist, Quality Lab Technician, First Quality Lab Technician, Second First Time In 01/28/21 12:13:00 01/28/21 [...] Attendee IN FOR SET-UP [facility] Superficial Wound Closed By: Last Modified By: Lisbeth Haas RN Proffitt, Debbie, RN Proffitt, Debbie, RN 01/28/21 13:18:17 01/28/21 13:18:17 01/28/21 13:18:17 Entry 7 Entry 8 Entry 9 Case Attendee OTHER, ATTENDEE #3 TAE TYLER, ANSHUL-ANS YUSRA DOSHI MD-ANS Role Performed Vendor INSURANCE VERIFIER/Nurse Chief Orthoptist Anesthesiologist of Record Time In 01/28/21 12:13:00 [...] RN 01/28/21 13:18:17 01/28/21 13:18:17 01/28/21 13:18:17 [facility] IntraOp Case Attendance Audit 01/28/21 13:18:30 Cyber Security Engineer: PROFITDE Modifier: PROFITDE <+> 1 Procedure 01/28/21 13:18:17 Cyber Security Engineer: PROFITDE Modifier: PROFITDE <+> 1 Time Out [...] Repair(Right), Neuroma Excision Soft Tissue 01/28/21 13:02:00 Cyber Security Engineer: PROFITDE Modifier: PROFITDE 7 <+> Time Out 7 <*> Procedure Hammer Toe Repair(Right), Neuroma Excision Soft Tissue 01/28/21 12:40:44 Cyber Security Engineer: PROFITDE Modifier: PROFITDE <+> 8 Case Attendee <+> 8 Role Performed <+> 8 Time In <+> 8 Procedure <+> 9 Case Attendee <+> 9 Role Performed <+> 9 Time In <+> 9 Procedure [facility] IntraOp Case Times Entry 1 Patient In Room Time 01/28/21 12:13:00 Out Room Time 01/28/21 13:18:00 Anesthesia Start Time 01/28/21 12:13:00 Stop Time 01/28/21 13:18:00 Anesthesia Ready 01/28/21 12:13:00 Surgery / Procedure Times Start Time 01/28/21 12:31:00 Stop Time 01/28/21 13:14:00 Last Modified By: Lisbeth Haas RN 01/28/21 13:18:07 [facility] IntraOp Case Times Audit 01/28/21 13:18:07 Cyber Security Engineer: PROFITDE Modifier: PROFITDE <+> 1 Out Room Time <+> 1 Stop Time <+> 1 Stop Time [facility] IntraOp Cautery Entry 1 ESU Identification Cautery Type Monopolar ESU ID Number [id number] ID Type Hospital Number Cautery Settings Cut Setting 30 Coag Setting 30 ESU Grounding Pad Ground Pad Type Adult Grounding Pad Site Right thigh Grounding Pad Lisbeth Haas RN Applied By Grounding Pad Site Warm, dry and intact Skin Condition Before Cautery Grounding Pad Site Unchanged Skin Condition After Cautery Last Modified By: iLsbeth Haas RN 01/28/21 12:43:00 [facility] IntraOp Communication Entry 1 Entry 2 Communication To Family/Significant other Family/Significant other Comment INFORMED OF START CLOSING Communication By JASMINE KEENE, JASMINE FRANKLIN, IVAN Date and Time 01/28/21 12:35:00 01/28/21 13:00:00 Last Modified By: Lisbeth Haas RN Proffitt, Debbie, RN 01/28/21 12:38:25 01/28/21 13:00:18 [facility] IntraOp Communication Audit 01/28/21 13:00:18 Cyber Security Engineer: PROFITDE Modifier: PROFITDE <+> 2 Communication By <+> 2 Date and Time <+> 2 Communication To <+> 2 Comment [facility] IntraOp Counts Verification Entry 1 Procedure Hammer Toe Repair(Right), Neuroma Excision Soft Tissue Count Info Count Type Sponge, Sharps, Miscellaneous Counts Verification Baseline/pre-procedure Sequence Count Results Not Applicable Counts Performed By Count Performed By OTHER, ATTENDEE #1 (Scrub) Count Performed By Joan De León RN (RN) Last Modified By: Lisbeth Haas RN 01/28/21 12:38:05 [facility] IntraOp Counts Final Entry 1 Entry [...] Proffitt, Debbie, RN 01/28/21 12:41:55 01/28/21 13:00:02 [facility] IntraOp Counts Final Audit 01/28/21 13:00:02 Cyber Security Engineer: PROFITDE Modifier: PROFITDE <+> 2 Procedure <+> 2 Count Type <+> 2 Count Results <+> 2 Count Performed By (Scrub) <+> 2 Count Performed By (RN) <+> 2 Counts Verification Sequence [facility] IntraOp Cultures and Spec Summary Entry 1 Cultrures and Specimens Specimen Ordered: Yes Test(s) Routine/Path-Lab Requested/Final Disposition Last Modified By: Lisbeth Haas RN 01/28/21 12:42:03 [facility] IntraOp Departure from OR Entry 1 Integumentary Assessment Integumentary WDL with patient Assessment WDL specific variances Patient's Normal OPSITE Integumentary Variance(s) Transfer/Handoff Transfer to PACU Phase II Handoff Method Phone call Handoff Reported to VINOD LANDIN RN Post-op Transport Stretcher/Gurney Via Patient Transport JASMINE KEENE RN Accompanied by Last Modified By: Lisbeth Haas RN 01/28/21 13:12:31 [facility] IntraOp Departure from OR Audit 01/28/21 13:12:31 Cyber Security Engineer: PROFITDE Modifier: PROFITDE <+> 1 Handoff Reported to [facility] IntraOp Dressing and Packing Entry 1 Type Dressing Location OPSITE Wound Dressing Item 4x4's, Ronny, Kerlix/Regla, Adaptic Applied By NORMA FOSTER DPM-POD Other Comments BETADINE SOLUTION Last Modified By: Lisbeth Haas RN 01/28/21 13:09:21 [facility] IntraOp Dressing and Packing Audit 01/28/21 13:09:21 Cyber Security Engineer: PROFITDE Modifier: PROFITDE 1 <*> Wound Dressing Item 4x4's, Ronny, Kerlix/Regla, Adaptic, Steristrip 01/28/21 12:52:36 Cyber Security Engineer: PROFITDE Modifier: PROFITDE <+> 1 Location [facility] IntraOp Fire Risk Assessment Entry 1 [...] Modified By: Lisbeth Haas RN 01/28/21 12:44:00 [facility] IntraOp General Case Field Investigator 1 Case Information OR OR 04 [facility] Case Level 1 Room Verified Yes Wound Class I - Clean Specialty SN Podiatry Anesthesia Type MAC ASA Class 2 Diagnosis Preop Diagnosis HAMMERTOE RIGHT FOOT, PLANTAR PLATE TEAR AND [place]'S NEUROMA RIGHT FOOT Postop Same As Preop No Postop Diagnosis SEE SURGEON'S POSTOP NOTES Last Modified By: Lisbeth Haas RN 01/28/21 12:47:21 [facility] IntraOp General Case Data Audit 01/28/21 12:47:21 Cyber Security Engineer: PROFITDE Modifier: PROFITDE 1 <*> OR OR 06 [facility] 1 <+> ASA Class 1 <+> Anesthesia Type 1 <+> Postop Same As Preop 1 <+> Preop Diagnosis 1 <+> Postop Diagnosis 1 <+> Room Verified [facility] IntraOp Implant Log Entry 1 Type Implant (Synthetic) Implant Log Implant Type Hardware Implant CORTEZ HELMS [id number] Identification Description Implant Quantity 1 Implant Site OPSITE Implant Schmitz [employer]p:Schmitz Identification Med Tech Crop Or Livestock Tenant Farmer Name: Implant [id number] Identification Catalog Number Implant Has an No Expiration Date Tissue Implant Last Modified By: Lisbeth Haas RN 01/28/21 13:10:36 [facility] IntraOp Implant Log Audit 01/28/21 13:10:36 Cyber Security Engineer: KELSIDE Modifier: PROFITDE 1 <*> Implant Identification Description CORTEZ HOG [id number] <+> Implant Has an Expiration Date [facility] IntraOp Intraoperative Assessment Entry 1 Handoff [...] Modified By: Lisbeth Haas RN 01/28/21 12:44:56 [facility] IntraOp Intraoperative Equipment Entry 1 Equipment Intraop Monitoring Electrocardiogram Five lead placement (ECG) Electrode Placement Blood Pressure Non-Invasive BP Device Source Blood Pressure Arm, right upper Location Pulse Oximeter Hand, left Probe Site Antiembolic Devices Scopes Photo/Video Documentation Last Modified By: Lisbeth Haas RN 01/28/21 12:47:46 [facility] IntraOp Medication Admin Entry 1 Medication/Irrigant MARTI IRR NACL 0.9PCT 2000ML [facility]-[id number] Route of IRRIGATION Administration Dose Dose 100 Unit of Measure ml Administered By NORMA FOSTER DPM-POD Procedure Irrigation Last Modified By: Lisbeth Haas RN 01/28/21 12:56:29 [facility] IntraOp Patient Positioning Entry 1 Procedure [...] Modified By: Lisbeth Haas RN 01/28/21 12:49:26 [facility] IntraOp Sign In Entry 1 Patient, [...] Modified By: Lisbeth Haas RN 01/28/21 12:49:41 [facility] IntraOp Sign Out Entry 1 RN [...] Modified By: Lisbeth Haas RN 01/28/21 13:18:15 [facility] IntraOp Skin Prep Entry 1 Procedure Hammer Toe Repair(Right), Neuroma Excision Soft Tissue Prescribed Yes Pre-Surgical Prep Completed Prep Area RIGHT FOOT Intraop Prep Integumentary WDL Assessment WDL Prep Agents Betadine scrub, Betadine solution Prep by Lisbeth Haas RN Hair Removal Methods No hair removal performed Last Modified By: Lisbeth Haas RN 01/28/21 12:50:10 [facility] IntraOp Surgical Procedures Entry 1 Entry [...] Proffitt, Debbie, RN 01/28/21 13:18:08 01/28/21 13:18:08 [facility] IntraOp Surgical Procedures Audit 01/28/21 13:18:08 Cyber Security Engineer: PROFITDE Modifier: PROFITDE <+> 1 Stop <+> 2 Stop [facility] IntraOP Time Out Entry 1 Procedure [...] Modified By: Lisbeth Haas RN 01/28/21 12:44:34 [facility] IntraOp Tourniquet Entry 1 Type Pneumatic Serial/Unit Number [id number] Setting 250 Pheumatic Yes Tourniquet Checked Per Protocol Size 18 inches Placement Ankle, right Skin Protection - Yes Padded Under Cuff Applied By Lisbeth Haas RN Removed By NORMA FOSTER DPM-POD Times Start Time 01/28/21 12:30:00 Stop Time 01/28/21 13:10:00 Total Time 40 calculated manually (Mins) Last Modified By: Lisbeth Haas RN 01/28/21 13:11:05 [facility] IntraOp Tourniquet Audit 01/28/21 13:11:05 Cyber Security Engineer: PROFITDE Modifier: PROFITDE <+> 1 Total Time [...] filedocumented in this encounter Care Teams Health Information Management Director Relationship Specialty Start Date End Date Amalia Walter [address] [place] [address] PCP - General 04/09/24 documented as of this encounter
--- OUTSIDE RECORDS SUMMARY | 2025-06-01 10:54 | XMS_ITS | Encounter Summary ---
Author Organization [employer] ([place], [place], [place], [place]) Address [address] [place] [address] Care Team Providers Care Assistant Clinical Nurse Manager Name Role Phone Amalia Walter Primary Care Provider Encounter Details Date Type Department Care Team (Late st Contact Info) Description 01/28/2021 Transcribed Document [facility] [place] [address] [place] [address] ProviderEmely MD [address] [id number] Social History Tobacco Use Types Packs/Day Years [...] : 1965 SURGEON: Ramon Rivero DPM LOCATION: [facility]. INDUSTRIAL ROOF PLUMBER: None. PREOPERATIVE DIAGNOSES: 1. Plantar plate tear, [...] in the next 24 to 72 hours. /[id number] PIERO Ugarte/AQ / GUZMAN / MODL /[id number] Electronically signed by Jeferson Fernandez Conversion Networking Administrator Cerner at 02/28/2023 7:56 PM CDT documented in this encounter Plan of Treatment Not on file documented as of this encounter Visit Diagnoses Not on filedocumented in this encounter Care Teams Assistant Clinical Nurse Manager Relationship Specialty Start Date End Date Amalia Walter [address] [place] [address] PCP - General 04/09/24 documented as of this encounter
--- OUTSIDE RECORDS SUMMARY | 2025-06-01 10:54 | XMS_ITS | Data Portability ---
Author Organization [place] - [facility]azz ADMIN Address [address] [place] [id number] Care Team Providers Care Data Security Coordinator Name Role Phone AMALIA MCCORD Referring Provider [phone] AMALIA MCCORD Primary Care Provider Assessment Encounter Date Assessment Date Assessment LastModified by Organization Details LastModified Time 11/28/2022 11/28/2022 Amalia Karimi APRN, Dear Shona, just want to let you know that I saw Zehra Espino in the off state your request. She is a 57-year-old employee out at [employer] who has had a several month history [...] in punctuate rojas and or spelling, etc. [email or web address] Not available 11/28/2022 11:49:55 01/02/2023 01/02/2023 Ms Espino returns after robotic cholecystectomy. She is doing very well without serous complaints or issues. The wounds are intact without sign of infection. She can return to work in 1 week if she does not lift more than 35 lb. Follow-up in a month as needed Not available 01/02/2023 09:09:29 10/01/2024 10/01/2024 Ms. [...] (A+B+C), acute, serum 2023 024 [email or web address] 64 [facility] (Registration ), [address] [place], [address], 5 11:24:16 igg, quantitativ e, serum 2023 024 [facility] (Registration ), [address] [place], [address], 4 15:14:32 mitochondri al Ab, serum 2023 024 [facility] (Registration ), [address] [place], [address], 4 15:14:30 actin smooth muscle Ab, serum 2023 024 [facility] (Registration ), [address] [place], [address], 4 15:14:34 ARNAV (antinuclea r antibodies) screen, serum 2023 [facility] (Registration ), [address], [place], [address], 4 13:13:40 alpha-1-ant itrypsin (aat), QN, serum [address] (Registration ), [address] , [place], [address], 5 11:24:16 CBC w/ auto diff 2023 [facility] (Registration ), [address], [place], [address], 4 07:51:03 PT/INR [address] (Registration ), [address], [place], [address], 5 11:24:16 nonalcoholi c steatohepat itis + fibrosis panel, serum or plasma [address] (Registration ), [address], [place], [address], 5 11:24:16 alpha-1-ant itrypsin (aat) phenotype, serum [address] (Registration ), [address], [place], [address], 5 11:24:17 CMP, serum or plasma 2023 [facility] (Registration ), [address], [place], [address], 4 08:04:39 hemochromat osis mutation (hfe), blood/tissu e 2023 024 [email or web address] 64 [facility] (Registration ), [address], [place], [address], 5 11:24:17 Referral general surgeon referral 2021 022 JACKSON Funk MD, [address] [facility], [place], [address], 4 05:01:33 Procedures None recorded. Surgeries None recorded. Imaging US, liver 2023 024 JACKSON Tyronewn Ooma Number, [address] [facility], [place], [address], 4 11:59:54 Medication Orders None recorded. Patient TargetsNo targets recorded. Patient Instructions Encounter Date Encounter Id Patient Instructions Last Modified By Organization Details Last Modified Time 10/01/2024 [id number] 6 month f/u [email or web address] Not available 10:52:52 Reason for Referral General Surgeon Referral for Cholelithiasis without obstruction Referring Physician: Johnna Karimi, Family Medicine, Encounter Date: 10/26/2022 Results Created Date Observation Date Name Description Value Unit Range Abnormal Flag Note LastModifiedBy Organization Detail LastModifiedTime 12/13/1912/13/2022 CBC AUTO NO DIFF (HEMO GRAM) WBC 5.7 K/uL 4.0-10 .5 Not Available [facility] ([facility]) [address], [place], [address], 12/13/2022 16:35:15 12/13/19 23 12/13/2022 CBC AUTO NO DIFF (HEMO GRAM) RBC 4.2 M/mm3 4.2-6. 4 Not Available [facility] ([facility]) [address], [place], [address], 12/13/2022 16:35:15 12/13/19 23 12/13/2022 CBC AUTO NO DIFF (HEMO GRAM) HGB 13.0 gm/dL 12.5-1 6.0 Not Available [facility] ([facility]) [address], [place], [address], 12/13/2022 16:35:15 12/13/19 23 12/13/2022 CBC AUTO NO DIFF (HEMO GRAM) HCT 38.9 % 37.0-4 7.0 Not Available [facility] ([facility]) [address], [place], [address], 12/13/2022 16:35:15 12/13/19 23 12/13/2022 CBC AUTO NO DIFF (HEMO GRAM) MCV 93.5 fL 78-100 Not Available [facility] ([facility]) [address], [place], [address], 12/13/2022 16:35:15 12/13/19 23 12/13/2022 CBC AUTO NO DIFF (HEMO GRAM) MCH 31.3 pg 27-31 high Not Available [facility] ([facility]) [address], [place], [address], 12/13/2022 16:35:15 12/13/19 23 12/13/2022 CBC AUTO NO DIFF (HEMO GRAM) MCHC 33.4 g/dL 32-36 Not Available [facility] ([facility]) [address], [place], [address], 12/13/2022 16:35:15 12/13/19 23 12/13/2022 CBC AUTO NO DIFF (HEMO GRAM) RDW 12.9 % 11.5-1 4.0 Not Available [facility] ([facility]) [address], [place], [address], 12/13/2022 16:35:15 12/13/19 23 12/13/2022 CBC AUTO NO DIFF (HEMO GRAM) platelet count 193 K/uL 150-45 0 Not Available [facility] ([facility]) [address], [place], [address], 12/13/2022 16:35:15 12/13/19 23 12/13/2022 CBC AUTO NO DIFF (HEMO GRAM) manual differential NO Not Available [facility] ([facility]) [address], [place], [address], 12/13/2022 16:35:15 12/13/19 23 12/13/2022 COMP METAB OLIC PANEL sodium 139 mmol/ L 136-14 5 Not Available [facility] ([facility]) [address], [place], [address], 12/13/2022 17:16:34 12/13/19 23 12/13/2022 COMP METAB OLIC PANEL potassium 3.5 mmol/ L 3.6-5. 0 low Not Available [facility] ([facility]) [address], [place], [address], 12/13/2022 17:16:34 12/13/19 23 12/13/2022 COMP METAB OLIC PANEL chloride 102 mmol/ L 98-107 Not Available [facility] ([facility]) [address], [place], [address], 12/13/2022 17:16:34 12/13/19 23 12/13/2022 COMP METAB OLIC PANEL carbon dioxide 31.2 mmol/ L 21.0-3 2.0 Not Available [facility] ([facility]) [address], [place], [address], 12/13/2022 17:16:34 12/13/19 23 12/13/2022 COMP METAB OLIC PANEL anion gap 9.3 Not Available [facility] ([facility]) [address] , [place], [address], 12/13/2022 17:16:34 12/13/19 23 12/13/2022 COMP METAB OLIC PANEL glucose 126 mg/dL 70-120 high Not Available [facility] ([facility]) [address], [place], [address], 12/13/2022 17:16:34 12/13/19 23 12/13/2022 COMP METAB OLIC PANEL BUN 25 mg/dL 7-18 high Not Available [facility] ([facility]) [address], [place], [address], 12/13/2022 17:16:34 12/13/19 23 12/13/2022 COMP METAB OLIC PANEL creatinine 1.0 mg/dL 0.6-1. 3 Not Available [facility] ([facility]) [address] , [place], [address], 12/13/2022 17:16:34 12/13/19 23 12/13/2022 COMP METAB OLIC PANEL glomerular filtration rate >60 mlper min 60- Not Available [facility] ([facility]) [address] , [place], [address], 12/13/2022 17:16:34 12/13/19 23 12/13/2022 COMP METAB OLIC PANEL total protein 6.9 g/dL 6.4-8. 2 Not Available [facility] ([facility]) [address] , [place], [address], 12/13/2022 17:16:34 12/13/19 23 12/13/2022 COMP METAB OLIC PANEL albumin 4.1 g/dL 3.4-5. 0 Not Available [facility] ([facility]) [address] , [place], [address], 12/13/2022 17:16:34 12/13/19 23 12/13/2022 COMP METAB OLIC PANEL globulin 2.8 Not Available [facility] ([facility]) [address] , [place], [address], 12/13/2022 17:16:34 12/13/19 23 12/13/2022 COMP METAB OLIC PANEL alb/glob ratio 1.5 0.7-2 Not Available [facility] ([facility]) [address], [place], [address], 12/13/2022 17:16:34 12/13/19 23 12/13/2022 COMP METAB OLIC PANEL calcium 9.6 mg/dL 8.5-10 .5 Not Available [facility] ([facility]) [address] , [place], [address], 12/13/2022 17:16:34 12/13/19 23 12/13/2022 COMP METAB OLIC PANEL bilirubin total 0.30 mg/dL 0.10-1 .00 Not Available [facility] ([facility]) [address] , [place], [address], 12/13/2022 17:16:34 12/13/19 23 12/13/2022 COMP METAB OLIC PANEL AST (SGOT) 31 U/L 0-37 Not Available [facility] ([facility]) [address] , [place], [address], 12/13/2022 17:16:34 12/13/19 23 12/13/2022 COMP METAB OLIC PANEL ALT (SGPT) 47 U/L 0-65 Not Available [facility] ([facility]) [address] , [place], [address], 12/13/2022 17:16:34 12/13/19 23 12/13/2022 COMP METAB OLIC PANEL alk phosphatase 68 U/L 46-116 Not Available [facility] ([facility]) [address] , [place], [address], 12/13/2022 17:16:34 10/02/20 24 10/02/2024 CBC AUTO W DIFF WBC 5.0 K/uL 4.0-10 .5 Not Available [facility] ([facility]) [address] , [place], [address], 10/02/2024 07:51:03 10/02/20 24 10/02/2024 CBC AUTO W DIFF RBC 4.1 M/mm3 4.2-6. 4 low Not Available [facility] ([facility]) [address] , [place], [address], 10/02/2024 07:51:03 10/02/20 24 10/02/2024 CBC AUTO W DIFF HGB 12.7 gm/dL 12.5-1 6.0 Not Available [facility] ([facility]) [address] , [place], [address], 10/02/2024 07:51:03 10/02/20 24 10/02/2024 CBC AUTO W DIFF HCT 39.5 % 37.0-4 7.0 Not Available [facility] ([facility]) [address] , [place], [address], 10/02/2024 07:51:03 10/02/20 24 10/02/2024 CBC AUTO W DIFF MCV 96.3 fL 78-100 Not Available [facility] ([facility]) [address] , [place], [address], 10/02/2024 07:51:03 10/02/20 24 10/02/2024 CBC AUTO W DIFF MCH 31.0 pg 27-31 Not Available [facility] ([facility]) [address] , [place], [address], 10/02/2024 07:51:03 10/02/20 24 10/02/2024 CBC AUTO W DIFF MCHC 32.2 g/dL 32-36 Not Available [facility] ([facility]) [address] , [place], [address], 10/02/2024 07:51:03 10/02/20 24 10/02/2024 CBC AUTO W DIFF RDW 13.0 % 11.5-1 4.0 Not Available [facility] ([facility]) [address] , [place], [address], 10/02/2024 07:51:03 10/02/20 24 10/02/2024 CBC AUTO W DIFF platelet count 208 K/uL 150-45 0 Not Available [facility] ([facility]) [address] , [place], [address], 10/02/2024 07:51:03 10/02/20 24 10/02/2024 CBC AUTO W DIFF MPV 9.8 fL 6-9.5 high Not Available [facility] ([facility]) [address], [place], [address], 10/02/2024 07:51:03 10/02/20 24 10/02/2024 CBC AUTO W DIFF neutrophil% 59.1 % 43-65 Not Available [facility] ([facility]) [address], [place], [address], 10/02/2024 07:51:03 10/02/20 24 10/02/2024 CBC AUTO W DIFF lymphocyte% 31.1 % 20.5-4 5.5 Not Available [facility] ([facility]) [address], [place], [address], 10/02/2024 07:51:03 10/02/20 24 10/02/2024 CBC AUTO W DIFF monocyte% 7.0 % 5.5-11 .7 Not Available [facility] ([facility]) [address] [place], [address], 10/02/2024 07:51:03 10/02/20 24 10/02/2024 CBC AUTO W DIFF eosinophil% 2.2 % 0.9-2. 9 Not Available [facility] ([facility]) [address] [place], [address], 10/02/2024 07:51:03 10/02/20 24 10/02/2024 CBC AUTO W DIFF basophil% 0.4 % 0.2-1. 0 Not Available [facility] ([facility]) [address] [facility], [place], [address], 10/02/2024 07:51:03 10/02/20 24 10/02/2024 CBC AUTO W DIFF immature granulocytes % 0.2 % 0.0-0. 8 Not Available [facility] ([facility]) [address] [facility], [place], [address], 10/02/2024 07:51:03 10/02/20 24 10/02/2024 CBC AUTO W DIFF nucleated red blood cells % 0.0 % Not Available [facility] ([facility]) [address] [facility], [place], [address], 10/02/2024 07:51:03 10/02/20 24 10/02/2024 CBC AUTO W DIFF neutrophil# 3.0 K/uL 2.2-4. 8 Not Available [facility] ([facility]) [address] [facility], [place], [address], 10/02/2024 07:51:03 10/02/20 24 10/02/2024 CBC AUTO W DIFF lymphocyte# 1.6 cell/ mcL 1.3-2. 9 Not Available [facility] ([facility]) [address] [facility], [place], [address], 10/02/2024 07:51:03 10/02/20 24 10/02/2024 CBC AUTO W DIFF monocyte# 0.4 cell/ mcL 0.3-0. 8 Not Available [facility] ([facility]) [address] [facility], [place], [address], 10/02/2024 07:51:03 10/02/20 24 10/02/2024 CBC AUTO W DIFF eosinophil# 0.1 cell/ mcL 0-0.2 Not Available [facility] ([facility]) [address] , [place], [address], 10/02/2024 07:51:03 10/02/20 24 10/02/2024 CBC AUTO W DIFF basophil# 0.0 cell/ mcL 0.0-1. 0 Not Available [facility] ([facility]) [address] , [place], [address], 10/02/2024 07:51:03 10/02/20 24 10/02/2024 CBC AUTO W DIFF immature gramulocytes # 0.01 K/uL Not Available [facility] ([facility]) [address], [place], [address], 10/02/2024 07:51:03 10/02/20 24 10/02/2024 CBC AUTO W DIFF nucleated red blood cells # 0.00 K/uL Not Available [facility] ([facility]) [address] , [place], [address], 10/02/2024 07:51:03 10/02/20 24 10/02/2024 CBC AUTO W DIFF manual differential NO Not Available [facility] ([facility]) [address] , [place], [address], 10/02/2024 07:51:03 10/02/20 24 10/02/2024 COMP METAB OLIC PANEL sodium 140 mmol/ L 136-14 5 Not Available [facility] ([facility]) [address] [place], [address], 10/02/2024 08:04:39 10/02/20 24 10/02/2024 COMP METAB OLIC PANEL potassium 4.1 mmol/ L 3.6-5. 0 Not Available [facility] ([facility]) [address] [place], [address], 10/02/2024 08:04:39 10/02/20 24 10/02/2024 COMP METAB OLIC PANEL chloride 102 mmol/ L 98-107 Not Available [facility] ([facility]) [address] , [place], [address], 10/02/2024 08:04:39 10/02/20 24 10/02/2024 COMP METAB OLIC PANEL carbon dioxide 26.6 mmol/ L 21.0-3 2.0 Not Available [facility] ([facility]) [address] , [place], [address], 10/02/2024 08:04:39 10/02/20 24 10/02/2024 COMP METAB OLIC PANEL anion gap 15.5 Not Available [facility] ([facility]) [address] , [place], [address], 10/02/2024 08:04:39 10/02/20 24 10/02/2024 COMP METAB OLIC PANEL glucose 147 mg/dL 70-120 high Not Available [facility] ([facility]) [address] , [place], [address], 10/02/2024 08:04:39 10/02/20 24 10/02/2024 COMP METAB OLIC PANEL BUN 19 mg/dL 7-18 high Not Available [facility] ([facility]) [address] [place], [address], 10/02/2024 08:04:39 10/02/20 24 10/02/2024 COMP METAB OLIC PANEL creatinine 0.8 mg/dL 0.6-1. 3 Not Available [facility] ([facility]) [address] , [place], [address], 10/02/2024 08:04:39 10/02/20 24 10/02/2024 COMP METAB [...] latham ing kiney funct ion. Not Available [facility] ([facility]) [address], [place], [address], 10/02/2024 08:04:39 10/02/20 24 10/02/2024 COMP METAB OLIC PANEL total protein 7.5 g/dL 6.4-8. 2 Not Available [facility] ([facility]) [address], [place], [address], 10/02/2024 08:04:39 10/02/20 24 10/02/2024 COMP METAB OLIC PANEL albumin 4.2 g/dL 3.4-5. 0 Not Available [facility] ([facility]) [address], [place], [address], 10/02/2024 08:04:39 10/02/20 24 10/02/2024 COMP METAB OLIC PANEL globulin 3.3 Not Available [facility] ([facility]) [address], [place], [address], 10/02/2024 08:04:39 10/02/20 24 10/02/2024 COMP METAB OLIC PANEL alb/glob ratio 1.3 0.7-2 Not Available [facility] ([facility]) [address], [place], [address], 10/02/2024 08:04:39 10/02/20 24 10/02/2024 COMP METAB OLIC PANEL calcium 9.5 mg/dL 8.5-10 .5 Not Available [facility] ([facility]) [address], [place], [address], 10/02/2024 08:04:39 10/02/20 24 10/02/2024 COMP METAB OLIC PANEL bilirubin total 0.30 mg/dL 0.10-1 .00 Not Available [facility] ([facility]) [address] , [place], [address], 10/02/2024 08:04:39 10/02/20 24 10/02/2024 COMP METAB OLIC PANEL AST (SGOT) 40 U/L 0-37 high Not Available [facility] ([facility]) [address] , [place], [address], 10/02/2024 08:04:39 10/02/20 24 10/02/2024 COMP METAB OLIC PANEL ALT (SGPT) 78 U/L 0-65 high Not Available [facility] ([facility]) [address], [place], [address], 10/02/2024 08:04:39 10/02/20 24 10/02/2024 COMP METAB OLIC PANEL alk phosphatase 82 U/L 46-116 Not Available [facility] ([facility]) [address], [place], [address], 10/02/2024 08:04:39 10/02/20 24 10/02/2024 PT (PROT HROMB IN TIME) W INR prothrombin time 10.1 secon ds 9.3-11 .4 Not Available [facility] ([facility]) [address], [place], [address], 10/02/2024 08:08:50 10/02/20 24 10/02/2024 PT (PROT [...] Mecha nical Heart Valve s Not Available [facility] ([facility]) [address] [facility], [place], [address], 10/02/2024 08:08:50 10/02/20 24 10/03/2024 ACUTE HEPAT ITIS PANEL hep A Ab, IgM Negati ve negati ve A negat liliam anti- HAV IgM resul t sugge sts no recen t or curre nt HAV infec tion. Not Available [facility] ([facility]) [address] [facility], [place], [address], 10/03/2024 06:16:59 10/02/20 24 10/03/2024 ACUTE HEPAT ITIS PANEL HBsAg screen Negati ve negati ve Not Available [facility] ([facility]) [address] [facility], [place], [address], 10/03/2024 06:16:59 10/02/20 24 10/03/2024 ACUTE HEPAT ITIS PANEL hep B core Ab, IgM Negati ve negati ve Not Available [facility] ([facility]) [address] [facility], [place], [address], 10/03/2024 06:16:59 10/02/20 24 10/03/2024 ACUTE HEPAT ITIS PANEL HCV Ab Non Reacti ve non reacti ve Perfo rmed at: - [facility] [address] Lab Direc tor: Luis copeland PhD, Phone : [phone] Not Available [facility] ([facility]) [address] [facility], [place], [address], 10/03/2024 06:16:59 10/02/20 24 10/03/2024 ACUTE HEPAT ITIS PANEL hep A Ab, IgM Negati ve negati ve A negat liliam anti- HAV IgM resul t sugge sts no recen t or curre nt HAV infec tion. Not Available [facility] ([facility]) [address], [place], [address], 10/03/2024 06:17:00 10/02/20 24 10/03/2024 ACUTE HEPAT ITIS PANEL HBsAg screen Negati ve negati ve Not Available [facility] ([facility]) [address], [place], [address], 10/03/2024 06:17:00 10/02/20 24 10/03/2024 ACUTE HEPAT ITIS PANEL hep B core Ab, IgM Negati ve negati ve Not Available [facility] ([facility]) [address] [facility], [place], [address], 10/03/2024 06:17:00 10/02/20 24 10/03/2024 ACUTE HEPAT ITIS PANEL HCV Ab Non Reacti ve non reacti ve Perfo rmed at: [facility] [address] [place] [address] Lab Direc tor: Luis copeland PhD, Phone : [phone] Not Available [facility] ([facility]) [address] [facility], [place], [address], 10/03/2024 06:17:00 10/02/20 24 10/03/2024 ACUTE HEPAT ITIS PANEL interpretati on: Commen t . Not infec jelena with HCV unles s early or acute infec tion is suspe cted (whic h may be delay ed in an immun ocomp romis ed indiv idual ), or other evide nce exist s to indic ate HCV infec tion. Perfo rmed at: [facility] [address] [place] [address] Lab Direc tor: Luis copeland PhD, Phone : [phone] Not Available [facility] ([facility]) [address] [facility], [place], [address], 10/03/2024 06:17:00 11/20/20 24 10/03/2024 ARNAV W/REF LEEANN IF POSIT LILIAM antinuclear Ab, direct NEGATI VE negati ve Perfo rmed at: [facility] [id number] [place] [address] Lab Direc tor: Luis copeland PhD, Phone : [phone] Not Available [facility] ([facility]) [address] [facility], [place], [address], 10/03/2024 13:13:40 10/02/20 24 10/03/2024 MITOC HONDR IAL ANTIB ODIES mitochondria l (M2) Ab <20.0 units 0.0-20 .0 Negat liliam 0.0 - 20.0 Equiv ocal 20.1 - 24.9 Posit liliam >24.9 . Mitoc hondr ial (M2) Antib odies are found in 90-96 % of patie nts with prima ry bilia ry cirrh osis. Perfo rmed at: [facility] [id number] [place] [address] Lab Direc tor: Luis copeland PhD, Phone : [phone] Not Available [facility] ([facility]) [address] [facility], [place], [address], 10/03/2024 15:14:30 10/02/20 24 10/03/2024 IGG IgG 201 mg/dL 586-16 02 low Resul t confi rmed on matt ntrat ion. Perfo rmed at: [facility] [id number] [place] [address] Lab Direc tor: Luis copeland PhD, Phone : [phone] Not Available [facility] ([facility]) [address] [facility], [place], [address], 10/03/2024 15:14:32 10/02/20 24 10/03/2024 ACTIN (SMOO [...] osis. Perfo rmed at: [facility] [address] [facility], [facility], [place] [address] Lab Direc tor: Luis copeland PhD, Phone : [phone] Not Available [facility] ([facility]) [address] [facility], [place], [address], 10/03/2024 15:14:34 10/02/2010/05/2024 BAUTISTA FIBRO SURE PLUS alpha 2-macroglobu jericho, qn 563 mg/dL 110-27 6 high Not Available [facility] ([facility]) [address] [place], [address], 10/05/2024 06:16:12 10/02/20 24 10/05/2024 BAUTISTA FIBRO SURE PLUS haptoglobin 166 mg/dL 33-346 Not Available [facility] ([facility]) [address] [facility], [place], [address], 10/05/2024 06:16:12 10/02/20 24 10/05/2024 BAUTISTA FIBRO SURE PLUS apolipoprote in A-1 190 mg/dL 116-20 9 Not Available [facility] ([facility]) [address] [place], [address], 10/05/2024 06:16:12 10/02/20 24 10/05/2024 BAUTISTA FIBRO SURE PLUS bilirubin, total 0.2 mg/dL 0.0-1. 2 Not Available [facility] ([facility]) [address] [place], [address], 10/05/2024 06:16:12 10/02/20 24 10/05/2024 BAUTISTA FIBRO SURE PLUS GGT 22 IU/L 0-60 Not Available [facility] ([facility]) [address] [place], [address], 10/05/2024 06:16:12 10/02/20 24 10/05/2024 BAUTISTA FIBRO SURE PLUS ALT (SGPT) p5p 69 IU/L 0-40 high Not Available [facility] ([facility]) [address] [place], [address], 10/05/2024 06:16:12 10/02/20 24 10/05/2024 BAUTISTA FIBRO SURE PLUS AST (SGOT) p5p 48 IU/L 0-40 high Not Available [facility] ([facility]) [address], [place], [address], 10/05/2024 06:16:12 10/02/20 24 10/05/2024 BAUTISTA FIBRO SURE PLUS cholesterol, total 138 mg/dL 100-19 9 Not Available [facility] ([facility]) [address] [place], [address], 10/05/2024 06:16:12 10/02/20 24 10/05/2024 BAUTISTA FIBRO SURE PLUS glucose, serum 156 mg/dL 70-99 high Not Available [facility] ([facility]) [address] [place], [address], 10/05/2024 06:16:12 10/02/20 24 10/05/2024 BAUTISTA FIBRO SURE PLUS triglyceride s 229 mg/dL 0-149 high Not Available [facility] ([facility]) [address] [place], [address], 10/05/2024 06:16:12 10/02/20 24 10/05/2024 BAUTISTA FIBRO [...] Stage F4 - Cirrh osis Not Available [facility] ([facility]) [address] [place], [address], 10/05/2024 06:16:12 10/02/20 24 10/05/2024 BAUTISTA FIBRO SURE PLUS fibrosis stage F1-F2 Not Available [facility] ([facility]) [address] [place], [address], 10/05/2024 06:16:12 10/02/20 24 10/05/2024 BAUTISTA FIBRO SURE PLUS fibrosis score 0.32 0.00-0 .21 high Not Available [facility] ([facility]) [address] [place], [address], 10/05/2024 06:16:12 10/02/20 24 10/05/2024 BAUTISTA FIBRO SURE PLUS steatosis score 0.49 0.00-0 .40 high Not Available [facility] ([facility]) [address] [place], [address], 10/05/2024 06:16:12 10/02/20 24 10/05/2024 BAUTISTA FIBRO SURE PLUS steatosis grade Commen t S1 - Mild Steat osis (But Clini filomena Signi fican t) (5- 33%) Not Available [facility] ([facility]) [address] [place], [address], 10/05/2024 06:16:12 10/02/20 24 10/05/2024 BAUTISTA FIBRO SURE PLUS steatosis scoring Commen t . <=0.4 0 = S0 - No Steat osis (<5%) 0.40 - 0.55 = S1 - Mild Steat osis (but Clini filomena Signi fican t) (5-33 %) >0.55 = S2S3- Moder ate to Sever e Steat osis (Clin icall y Signi fican t) (34-1 00%) Not Available [facility] ([facility]) [address] , [place], [address], 10/05/2024 06:16:12 10/02/20 24 10/05/2024 BAUTISTA FIBRO SURE PLUS bautista scoring Commen t . <=0.2 5 = N0 - No BAUTISTA/ MASH 0.25 - 0.50 = N1 - Mild BAUTISTA/ MASH 0.50 - 0.75 = N2 - Moder ate BAUTISTA/ MASH >0.75 = N3 - Sever e BAUTISTA/ MASH Not Available [facility] ([facility]) [address] , [place], [address], 10/05/2024 06:16:12 10/02/20 24 10/05/2024 BAUTISTA FIBRO SURE PLUS bautista grade Commen t N3 - Sever e BAUTISTA Not Available [facility] ([facility]) [address] , [place], [address], 10/05/2024 06:16:12 10/02/20 24 10/05/2024 BAUTISTA FIBRO SURE PLUS bautista score 0.82 0.00-0 .25 high Not Available [facility] ([facility]) [address] , [place], [address], 10/05/2024 06:16:12 10/02/20 24 10/05/2024 BAUTISTA FIBRO [...] ction s of fibro sis. Not Available [facility] ([facility]) [address], [place], [address], 10/05/2024 06:16:12 10/02/20 24 10/05/2024 BAUTISTA FIBRO SURE PLUS methodology: Commen t . The jerel mello teste d are perfo rmed by Fibro Sure- Speci fic metho ds. Not inten ded for use with other diagn ostic consi derat ions. Not Available [facility] ([facility]) [address], [place], [address], 10/05/2024 06:16:12 10/02/20 24 10/05/2024 BAUTISTA FIBRO SURE PLUS interpretati on: Commen t . Quant itati ve resul ts of 10 bioch emica ls in combi natio n with age and gende r, are jerel zed using a compu tatio nal algor ithm to provi de a quant itati ve surro gate marke r (0.0- 1.0) of liver fibro sis (Stirling vir F0-F4 ), hepat ic steat osis [...] fican t NAFLD /MASL D fibro sis (Stirling vir F2-F4 ) and 11% had cirrh [...] ficit y of 71%. 3 Not Available [facility] ([facility]) [address], [place], [address], 10/05/2024 06:16:12 10/02/20 24 10/05/2024 BAUTISTA FIBRO SURE PLUS comment: Commen t . This test was devel oped and its perfo rmanc e natty cteri stics deter mined by [facility]. It has not been clear ed or appro mellissa by the Food and Drug Admin istra tion. . For quest luiza akers this repor t pleas e conta ct custo geraldine servi ce at [phone]. . Refer ences : . 1. Bev [...] ol. 2019; 31:39 3-402 . 3. Rebecca Thomas. et al. Diagn ostic perfo rmanc e of a new nonin v asive test for nonal cohol ic steat ohepa titis using a simpl ified his tolog ical refer ence. Eur J Gastr oente rol Hepat ol. 2017; 30:56 9-577 . Perfo rmed at: [facility] [place] [address] [facility] , [place] [address] Lab Direc tor: Mita cooper MD, Phone : [phone] Not Available [facility] ([facility]) [address], [place], [address], 10/05/2024 06:16:12 10/02/20 24 10/07/2024 HERED ITARY [...] organ damag e. . [facility] ic couns rafael is recom arlene d to discu ss the poten tial clini ugo impli catio ns of posit liliam resul ts, as well as recom menda tions for testi ng famil y membe rs. [facility] ic Coord inato rs are avail able for healt h care provi ders to discu ss resul ts at [phone] (1367 ). . Test Detai ls: Three varia nts jerel zed: c.845 G>A (p.Cy s282T yr), commo nly refer red to as C282Y c.187 C>G (p.Hi s63As p), commo nly refer red to as H63D c.193 A>T (p.Se r65Cy s), commo nly refer red to as S65C . Metho ds/Li mitat ions: DNA Jerel sis of the HFE gene (NM_0 61480 .4) was perfo rmed by PCR ampli [...] KV, Kellen lehman LW, Vanessa l ; Carmelitaeri can Assoc iatio n for the Study of Liver Disea ses. Diagn osis and manag ement of hemoc hroma tosis : 2010 pract ice guide line by the Ameri can Assoc iatio n for the Study of Liver Disea ses. Hepat ology . 2010; 4(1): 328-4 3. doi: 10.10 02/ p.243 30. PMID: 41812 290; PMCID : PMC31 77858 . Cosmo G, Huey ot P, Flores felix DW, Chacorta r H, Hesham stoll O, Jaja n S, Alashok o I, Jb s M, Heike y S. EMQN best pract ice guide lines for the molec ular shalom ic diagn osis of hered itary hemoc hroma tosis (HH). Eur J Hum [facility] . 2016 Feb;2 4(4): 479-9 5. doi: 10.10 /ej hg.20 15.12 8. Epub 2014May 20. PMID: 80565 218; PMCID : PMC49 35494 . Not Available [facility] ([facility]) [address], [place], [address], 10/07/2024 17:10:09 10/02/20 24 10/07/2024 HERED ITARY HEMOC HROMA TOSIS reviewed by: Alberto t Techn ical [place] nent perfo rmed at [facility] [place] Profe génesison al [place] nent perfo rmed by: . Labor atory Corpo ratio n of Ameri ca Holdi ngs Michael barragan, Ph.D. , FAC Direc tor, Molec ular [facility] [address] [place] [address] Perfo rmed at: [facility] [address] [facility] , [place] [address] Lab Direc tor: Amiadelinadolores Okeefe [facility] , Phone : [phone] Not Available [facility] ([facility]) [address], [place], [address], 10/07/2024 17:10:09 10/02/20 24 10/16/2024 A1A DEFIC ENCY PROFI LE aat, DNA analysis Commen t Resul t: c.109 6 G>A (p.Gl u366L ys), Z allel e - Not detec jelena c.863 A>T (p.Gl u288V al), S allel e - Not detec jelena Not assoc iated with incre ased risk of devel oping clini filomena relev ant sympt oms of alpha -1 antit rypsi n defic iency . See Addit ional Clini ugo Infor matleidy n and Clif nts. Not Available [facility] ([facility]) [address] , [place], [address], 10/16/2024 17:10:10 10/02/20 24 10/16/2024 A1A DEFIC [...] genot yping . . Shalom ic couns rafael is recom arlene d to discu ss the poten tial clini ugo impli catio ns of posit liliam resul ts, as well as recom menda tions for testi ng famil y membe rs. Shalom ic Coord inato rs are avail able for healt h care provi ders to discu ss resul ts at [phone] GENE (8558 ). . Test Detai ls: Two varia [...] es in the SERPI NA1 gene (NM_0 73320 .4) was perfo rmed by multi plex [...] e natty cteri stics deter mined by [facility]. It has not been clear ed or appro mellissa by the Food and Drug Admin istra tion. . Refer ences : Chelsea maynard RA, Evangelist keith G, Abelardo douglas ML, Guilherme s M, Chong CE, Elian connor K, Chalino medina DK, Tony t SL, Tracy segura JM, Tony NIEVES, Michela adrian C, Emerita Bo. The Diagn osis and Manag ement of Alpha -1 Antit rypsi n Defic iency in the Adult . Chron ic Obstr Pulm Dis. 2016 Apr 18;3(3 ):668 -682. doi: 10.15 326/j copdf .3.32014. 0182. PMID: 98830 891; PMCID : PMC55 68068 . Tony NIEVES, Siddhartha estrada V, Prosper ZAPATA. Alpha -1 Antit rypsi n Defic iency . 2005Sep 08 Updat ed 2019April 02 . In: [place] MP, Uziel cuellar HH, Ariella COLIN, et al., derek rs. GeneR eview s(R) Inter net . Seatjosé andrews ([place]): Unive rsity of [place]iah [place] Aure; 1992- 2020. Avail able from: https ://shaneka edward.chab i.nlm .nih. gov/b ooks/ NBK15 19/ Not Available [facility] ([facility]) [address], [place], [address], 10/16/2024 17:10:10 10/02/20 24 10/16/2024 A1A DEFIC ENCY PROFI LE electronical ly signed by: Alberto Hadley , PhD [facility] Not Available [facility] ([facility]) [address], [place], [address], 10/16/2024 17:10:10 10/02/20 24 10/16/2024 A1A DEFIC ENCY PROFI LE a1a rfx to phenotype Not Indica jelena Perfo rmed at: [facility] [address] [place] [address] Lab Direc tor: Mita cooper MD, Phone : [phone] Perfo rmed at: [facility] [place] [address] [place] [address] Lab Direc tor: Anjana Okeefe [facility] , Phone : [phone] Not Available [facility] ([facility]) [address], [place], [address], 10/16/2024 17:10:10 10/02/20 24 10/16/2024 A1A DEFIC ENCY PROFI LE egdsr-6-xfjd trypsin,seru m 152 mg/dL 101-18 7 Not Available [facility] ([facility]) [address], [place], [address], 10/16/2024 17:10:10 10/14/20 24 10/14/2024 US, liver [facility] [address] [place] [address] Phone: Fax: Name: ZEHRA ESPINO Exam Date: : 1964 Age 58 years Gender : F Access ion: [id number] Physic judith: BRYCE CARDOZO Facili ty: [facility] Facili ty HSV: Outpat ient Exam: LIVER ULTRAS OUND Proced ure: US LIVER Exam Date: 9:08 AM 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 Legall y authen ticate d by MELISSA LAINEZ 2023-11 10:08: 00 CC'ed Logic: Orderi ng Provid er: CAS AVERY Attend ing Provid er: CAS AVERY Admitt ing Provid er: CAS AVERY [facility] [address] [place] [address], [place], [address], 10/30/2024 16:06:24 11/27/19 25 11/27/2024 MRI, abdom en, w/o contr ast [facility] [address] [place] [address] Phone: Fax: Name: ZEHRA ESPINO Exam Date: : 1964 Age 59 years Gender : F Access ion: [id number] Physic judith: BRYCE CARDOZO Facili ty: [facility] Facili ty HSV: Outpat ient Exam: MRI ABD W/O MR ABDOME N WITHOU T IV CONTRA ST, 025 8:59 AM EMPLOYEE RELATIONS ASSISTANT INDICA TION: diseas e of liver COMPAR [...] 11:46 AM EST RP Workst ation: [id number] Dictat ed By: Kunal Kinney Transc ribed By: Transc ribed On: 025 9:59 AM Electr onical ly signed by: Kunal Kinney 025 Thank you for referr ZEHRA Holley to [facility]. Legall y authen ticate d by TEMO CRAWFORD 0 11-27 09:59: 00 CC'ed Logic: Orderi ng Provid er: CAS AVERY Attend ing Provid er: CAS AVERY Referr ing Provid er: CAS AVERY Admitt ing Provid er: CAS AVERY [email or web address] [facility] [address] [place] [address], [place], [address], 12/09/2024 15:47:04 Result Notes Documentation Provider Name and Address Organization Details Recorded Time Mri, Abdomen, W/o Contrast : [address] [place] [address] Name: SRINIVASTAYLERZEHRA Exam Date: 11/27/2024 : 1965 Age 59 years Gender: F Physician: VANESSA CARDOZO Facility: [facility] Facility HSV: Outpatient Exam: MRI ABD W/O MR ABDOMEN WITHOUT IV CONTRAST, 11/27/2024 8:59 AM 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 FINDINGS: 1 cm septated left hepatic cyst is best seen on coronal series 3 image 19 as well as axial series 4 image 12. No solid component is detected on this noncontrast exam. Overall no suspicious features are seen. Diffuse fatty infiltration of the liver is noted. The liver is otherwise unremarkable. The common bile duct is normal in caliber. The gallbladder is surgically absent. Lung bases are clear. The spleen, pancreas, adrenal glands, and kidneys are unremarkable. IMPRESSION: 1.1 cm septated left hepatic cyst without suspicious features. This corresponds to the ultrasound finding. 2.Diffuse fatty infiltration of the liver. Electronically signed by:Kunal Arita MD11/27/2024 11:46 AM EST RP Dictated By: Kunal Arita Transcribed By: Transcribed On: 11/27/2024 9:59 AM Electronically signed by: Kunal Arita 11/27/2024 Thank you for referring ZEHRA ESPINO to [facility]. Legally authenticated by EMILE CRAWFORD 2024-11-27 09:59:00 CC'ed Logic: Ordering Provider: CAS MENDEZ Attending Provider: CAS MENDEZ Referring Provider: CAS MENDEZ Admitting Provider: CAS CARDOZO, KHOA [address] [facility], [place], [address], ARIANE - [facility] - [place] [facility] [place] 12/09/2024 15:47:05 Procedures Surgical History Date Name Laterality Status Provider Name and Address Organization Details Recorded Time section completed Nigel THAKKAR - [facility] - [place] [facility] [place] 11/28/2022 11:28:22 Knee Surgery completed Nigel THAKKAR - [facility] - [place] [facility] [place] 11/28/2022 11:28:38 tonsilectomy/adenoi ds completed Nigel THAKKAR - [facility] - [place] 11/28/2022 11:28:50 thumb surgery completed Nigel Marie [facility] - [place] [facility] [place] 11/28/2022 11:29:21 repair of shoulder completed Nigel THAKKAR - [facility] - [place] [facility] [place] 11/28/2022 11:29:15 procedure on foot completed Nigel THAKKAR - [facility] - [place] [facility] [place] 11/28/2022 11:29:29 Knee Surgery completed Nigel THAKKAR - LPTULIO [facility] & [place] 11/28/2022 11:29:42 cholecystectomy completed Nigel JEAN [facility] & [place] 01/02/2023 08:59:30 Imaging Results None recorded. Procedure Notes None recorded. Medical Equipment None Reported. Allergies Allergen ID Allergen Name Allergen Category Reaction Reaction Severity Criticality Documentation Date Start Date Code Code System Note Provider Name and Address Organization Details Recorded Time 62908 lisinopri l medicatio n Not available Not available Not available 10/26/2022 37377 RxNorm Ana estrada, [facility] [place] 15:20:06 Medications Name Sig Start Date Stop [...] Not Available docusate sodium 100 mg capsule 11/19 /2024 completed Not Available Not Available Not Available [...] Ultra-Fine Mini Pen Needle 31 gauge x 01/26 USE DIRECTED WITH LANTUS AND HUMALOG PENS FOUR TIMES DAILY active Not Available Not Available No t Available Lantus Solostar U-100 Insulin 100 unit/mL (3 mL) subcutaneou s pen INJECT 50 UNITS SUBCUTANE OUSLY ONCE DAILY 11/28 completed Not Available Not Available Not Available Humalog KwikPen (U-100) Insulin 100 unit/mL subcutaneou s INJECT [...] index (BMI) Body weight Heart rate Systolic And Diastolic Provider Name and Address Organization Details Last Updated DateTime 11/28/2022 175.26 cm 27.4 kg/m2 20171.74 g 79 /min 136/86 mm[Hg] Nigel THAKKAR [facility] & [place] 11/28/2022 11:25:46 Date Recorded Body height Body mass index (BMI) Body weight Heart rate Systolic And Diastolic Provider Name and Address Organization Details Last Updated DateTime 01/02/2023 175.26 cm 27.1 kg/m2 20288.84 g 84 /min 137/84 mm[Hg] Nigel THAKKAR [facility] & [place] 01/02/2023 08:58:44 Date Recorded Body weight Oxygen saturation Oxygen saturation in Arterial blood by Pulse oximetry Heart rate Systolic And Diastolic Provider Name and Address Organization Details Last Updated DateTime 4 71508.0 8 g 96 % 96 % 85 /min 111/61 mm[Hg] Maryfallon Cool [facility] & [place] 4 10:14:49 Date Recorded Body weight Heart rate Systolic And Diastolic Provider Name and Address Organization Details Last Updated DateTime 10/26/2022 38982.37 g 81 /min 117/71 mm[Hg] Ana Harmon [facility] & [place] 10/26/2022 15:20:45 Social History Question Answer Notes LastModified by [employer] Details LastModified Time Tobacco Smoking Status Former Smoker Nigel Quintanilla [facility] & [place] 11/28/2022 11:28:10 What Is Your Level Of Caffeine Consumption? Moderate [email or web address] Information not available 10/01/2024 Sex: Unknown Functional Status Question Answer Note LastModified by [employer] Details LastModified Time Do you use any illicit or recreational drugs? No [email or web address] Information not available 10/01/2024 What is your level of alcohol consumption? None [email or web address] Information not available 10/01/2024 Mental Status None [...] N Depression N COPD N Hypothyroidism N Diverticulitis/Diverticulosis N Anxiety Disorder N Arthritis Y Cancer Y Stroke N Liver Disease N Kidney Disease N Osteoporosis/Osteopenia N Colon Polyps Y Diabetes Y Bleeding Disorder N Seizures/Epilepsy N Tuberculosis N Hyperlipidemia Y Asthma N Sleep Apnea Y GERD/Reflux N Hepatitis N Cirrhosis N Heart Disease Y Hypertension N Gynecological HistoryNo gynecological history recorded. Obstetrics History GPAL:G 0 P 0 0 0 0 Past Encounters Encounter ID Performer Location Encounter Start Date Encounter Closed Date Diagnosis/Indication Diagnosis SNOMED-CT Code Diagnosis ICD10 Code Diagnosis Note [id number] Johnna Karimi NP [facility] [address] [address] 10/26/2022 15:08:20 10/26/2022 16:09:30 Steatotic liver disease 139651525 K76.0 - believes PCP checked hepatitis- A and B status, will follow-up and let us know - Avoid NSAIDs and alcohol. - Do not take over 2 g of acetaminop hen daily. - Discussed weight loss and healthy diet.- liver ultrasound done 10/07/2022 , repeat in 6 months- will check labs at next office visit Liver cyst 64496990 K76. 89 - 1.5 cm hepatic cyst- discussed with patient since cyst is less than 4 cm there is no further recommenda tion for additional follow-up Cholelithi asis without obstruction 23720102 K80.20 - Referral placed to Dr. Funk [id number] Antwan Funk MD [facility] [address] [facility] [address] [place] [address] 11/28/2022 10:44:00 11/28/2022 13:50:53 Cholelithiasis without obstruction 97619300 K80.20 [id number] Antwan Funk MD [facility] [address] [facility] [address] [place] [address] 01/02/2023 08:47:14 01/02/2023 09:08:51 Chronic cholecystitis without calculus 75770902 K81.1 [id number] VANESSA CARDOZO NP [facility] [address] [facility] [address] [place] [address] 10/01/2024 09:59:56 10/01/2024 10:56:25 Liver enzymes level above reference range 808899074 R74.01 Screening for malignant neoplasm of colon 965734642 Z12.11 Health Concerns Section Related Observation LastModified by Organization Detai ls LastModified Time None Recorded Concern Status LastModified by Organization Details LastModified Time None Recorded Advance Directives Directive None Recorded Payers Insurance Date Sequence Insurance Name Policy Number Policy Gregorio Covered Member ID Gregorio Member ID Guarantor Name 03/29/2025 1 [place] [id number] Zehra S Sanor [id number] Zehra S Sanor Notes Date Note [...] constipation or hematochezia. Johnna Karimi NP [address] [facility], [place], [address], [facility] - [place] - [place] [facility] [place] 10/26/2022 16:22:00 10/01/2024 text/html CURRENT: Ms.Sano mckinney is a 58 year old female referred to us by Ms. Saba APRN for elevated liver enzymes. AST 48/ ALT 79 on recent labs. She reports she has had elevated liver enzymes for years dating back to 2011. Liver ultrasound in 2011 showed extensive hepatic steatosis. She does not remember if she saw a clinical rn in the past. She has a distant history of heavy alcohol use in her 20s but now only drinks excessively once a year. She denies history of drug use. No history hepatitis. She denies issues with jaundice, abdominal swelling, easy bleeding, or unintentional weight loss. NO other GI complaints. VANESSA CARDOZO, OIL PIPE INSPECTOR [address] [facility], [place], [address], [facility] - [place] [facility] [place] 10/01/2024 19:14:11 OBGyn Episode No OBEpisode recorded.
--- OUTSIDE RECORDS SUMMARY | 2025-06-01 10:54 | XMS_ITS | Encounter Summary ---
Author Organization [employer] ([place], [place], [place], [place]) Address [address] [place] [address] Care Team Providers Care Skilled Laborer Name Role Phone Amalia Walter Primary Care Provider [phone] Encounter Details Date Type Department Care Team (Late st Contact Info) Description 01/28/2021 Transcribed Document [facility] [address] [place] [address] ProviderEmely MD [address] [place] [address] Social History Tobacco Use Types [...] Adams MD - 01/28/2021 2:29 PM CDT [facility] [place] [id number] ZEHRA ESPINOE :1965 Visit Time:01/28/2021 What [...] for as needed for pain Pickup at [facility] 6527 ascorbic acid (Vitamin C) 1,000 Milligram(s) Oral [...] 50 Milligram(s) Oral Every Day Pharmacy Information [facility] 7259: [address] [facility] [address] [place], [place] [address] [phone] Take your medications faithfully. Do NOT skip [...] that pinch your toes. ??? 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 ??? Have a second toe that is [...] Follow these instructions at home: ??? Take ngke-oye-vaxejta and prescription medicines only as told by [...] provider. Document Revised: 10/12/2018 Document Reviewed: 02/22/2017 [employer] Patient Education ?? 2020 [employer] General Anesthesia, Adult, Care After This [...] activities are safe for you. ??? Take kkdi-ykq-lsjfthv and prescription medicines only as told by [...] provider. Document Revised: 11/02/2018 Document Reviewed: 06/15/2018 [employer] Patient Education ?? 2020 [email or web address]. Emergency Awareness and Preventative Care STROKE is [...] Assistance with quitting is available by contacting 2-900-DQEX-NOW. This is a free resource providing counseling, [...] was given the opportunity to ask questions. Patient/Painter Bottom Name: Patient/Painter Bottom Signature: Relationship to Patient: Clinician/Hospital Painter Bottom Signature: Date: documented in this encounter Plan of Treatment Not on file documented as of this encounter Visit Diagnoses Not on filedocumented in this encounter Care Teams Skilled Laborer Relationship Specialty Start Date End Date Amalia Walter [address] [place] [address] [place] [address] PCP - General 04/09/24 documented as of this encounter
--- OUTSIDE RECORDS SUMMARY | 2025-06-01 10:54 | XMS_ITS | Encounter Summary ---
Author Organization [employer] ([place], [place], [place], [place]) Address [address] [place] [address] Care Team Providers Care Web Operations Specialist Name Role Phone Amalia Walter Primary Care Provider [phone] Encounter Details Date Type Department Care Team (Late st Contact Info) Description 01/28/2021 Transcribed Document [facility] [place] [address] [place] [address] ProviderEmely MD [address] [place] [place], [place] [id number] Social History Tobacco Use Types Packs/Day Years [...] Source : Measured Height Entry Format : [place] Height, Feet : 5 ft(Converted to: 152 cm, 60 Inch) Height, Inches : 9 Inch(Converted to: 0 ft 9 Inch, 22.86 cm) Clinical Height : 175.26 cm Weight Source : Standing scale Weight Entry Format : [place] Clinical Dosing Weight : 96.36 kg Weight, Pounds : 212 lb Body Surface Area (BSA) : 2.12 m2 Body Mass Index : 31.4 kg/m2 (HI) [place] Body Weight : 66 kg DEB DANIELS RN - 01/28/2021 9:50 EDT Health Histories Smoking Status : Former smoker, quit more than 30 days ago Smokeless Tobacco Status : Never Implant/Device Type, Quality Control Tech and Model : dental implants DEB DANIELS [...] No. (Last Updated: 01/28/2021 09:51:38 EDT by DEB DANIELS RN) Substance Abuse: Drug Use Hx: No. [...] Independent (2) Feeding : Independent (2) DEB ADNIELS RN - 01/28/2021 9:50 EDT ADL Index Score : 12 DEB DANIELS RN - 01/28/2021 9:50 EDT Advance Directive Patient has Advance Directive *Q : No, patient refuses Advance Directive information DEB DANIELS RN - 01/28/2021 9:50 EDT [place] Suicide Severity Rating Scale (C-SSRS) CSSRS Past [...] Obtained From : Patient Primary Language : Cook Islander Communication Barrier : None Wind Tunnel Engineer Needed : DEB Aguirre RN - 01/28/2021 9:50 EDT Chano Scale Chano Sensory Perception : Slightly limited [...] DEB DANIELS RN - 01/28/2021 9:50 EDT documented in this encounter Plan of Treatment Not on file documented as of this encounter Visit Diagnoses Not on filedocumented in this encounter Care Teams Web Operations Specialist Relationship Specialty Start Date End Date Saba Amalia [address] [place] [address] PCP - General 04/09/24 documented as of this encounter
--- OUTSIDE RECORDS SUMMARY | 2025-06-01 10:54 | XMS_ITS | Encounter Summary ---
Author Organization [email or web address] ([place], [place], [place], [place]) Address [address] [place] [address] Care Team Providers Care Paper Baling Machine Operator Name Role Phone Amalia Walter Primary Care Provider [phone] Encounter Details Date Type Department Care Team (Late st Contact Info) Description 01/28/2021 Transcribed Document [facility] [place] [address] [place] [address] ProviderEmely MD [address] [place] [address] Social History Tobacco Use Types [...] ProviderMD - 01/28/2021 12:31 PM CDT [facility] Main OR Preop Summary Primary Physician: NORMA FOSETR DPM-POD Finalized Date/Time: 01/28/21 13:40:47 Pt. Name: ZEHRA SHEPHERD /Sex: 1965 Female Med Rec #: [id number] Physician: NORMA FOSTER DPM-POD Financial #: [id number] Pt. Type: O Room/Bed: Admit/Disch: 01/28/21 08:17:00 - Institution: [facility] PreOp Case Times Entry 1 In Preop 01/28/21 08:46:00 Ready for Holding n/a Room Patient Ready for 01/28/21 10:15:00 Surgery Patient Out of Preop 01/28/21 12:10:00 Patient Out of n/a Holding Room Last Modified By: DEB DANIELS RN 01/28/21 13:40:41 [facility] PreOp Case Times Audit 01/28/21 13:40:41 Offset Printer: [email or web address] Cesar Modifier: [email or web address] <+> 1 Patient Out of Preop Finalized By: DEB DANIELS RN Document Signatures Signed By: DEB DANIELS RN 01/28/21 13:40 documented in this encounter Plan of Treatment Not on file documented as of this encounter Visit Diagnoses Not on filedocumented in this encounter Care Teams Paper Baling Machine Operator Relationship Specialty Start Date End Date JakobSarah connorvishnuangi [address] [place] [address] PCP - General 04/09/24 documented as of this encounter
--- OUTSIDE RECORDS SUMMARY | 2025-06-01 10:54 | XMS_ITS | Continuity of Care Document ---
Author Organization [place] [facility], Main Office Address [address] [place] [address] Care Team Providers Care Registered Nurse Renal Name Role Phone JENNIFER MCCORD Primary Care Provider Assessment No assessment recorded. Plan of Treatment Reminders Order Date Submit Date Provider Last Modified By Organization Details Last Modified Time Details Appointments None record ed. Lab None record ed. Referral None record ed. Procedures None record ed. Surgeries None record ed. Imaging None record ed. Medication Orders None record ed. Patient TargetsNo targets recorded. Patient Instructions Encounter Date Encounter Id Patient Instructions Last Modified By Organization Details Last Modified Time 04/07/2025 [id number] BACKGROUND 59 y/o female diabetic with moderately [...] MD ____ ____ Session notes Today's date: 06Apr2025 Session # 4 of 40 planed Next planned HBOT: 07Apr2025Ma - Found safe for HBOT this date [...] full session free of problem. NATHAN DONIS 25Ma - Monday. Again found safe for HBOT [...] drains and with some ABX packing extruding. Jennifer DONIS [email or web address] Not available 04/08/2025 08:30:04 Reason for Referral None Reported. Procedures Surgical History Date Name Laterality Status Provider Name and Address Organization Details Recorded Time 05/27/20 25 [facility] Therapy Treatment Form completed [facility] - [facility] 05/27/2025 09:45:15 05/26/20 25 [facility] Therapy Treatment Form completed [facility] - [facility] 05/26/2025 09:41:49 05/23/20 25 [facility] Therapy Treatment Form completed [facility] - [facility] 05/23/2025 09:53:41 05/22/20 25 [facility] Therapy Treatment Form completed [facility] - [facility] 05/22/2025 09:49:19 05/21/20 25 [facility] Therapy Treatment Form completed [facility] - [facility] 05/21/2025 09:56:08 05/20/20 25 [facility] Therapy Treatment Form completed [facility] 05/20/2025 09:41:29 05/19/20 25 [facility] Therapy Treatment Form completed [facility] 05/19/2025 09:45:34 05/16/20 25 [facility] Therapy Treatment Form completed [facility] 05/16/2025 09:41:57 05/15/20 25 [facility] Therapy Treatment Form completed [facility] 05/15/2025 09:46:49 05/14/20 25 [facility] Therapy Treatment Form completed [facility] - [facility] 05/14/2025 14:06:43 05/13/20 25 [facility] Therapy Treatment Form completed [facility] - [facility] 05/13/2025 14:14:00 05/12/20 25 [facility] Therapy Treatment Form completed [facility] - [facility] 05/12/2025 14:06:32 05/09/20 25 [facility] Therapy Treatment Form completed [facility] - [facility] 05/09/2025 14:20:41 05/08/20 25 [facility] Therapy Treatment Form completed [facility] - [facility] 05/08/2025 14:16:34 05/07/20 25 [facility] Therapy Treatment Form completed [facility] - [facility] 05/07/2025 14:34:11 05/06/20 25 [facility] Therapy Treatment Form completed [facility] - [facility] 05/06/2025 14:33:30 05/05/20 25 [facility] Therapy Treatment Form completed [facility] - [facility] 05/05/2025 14:39:41 05/02/20 25 [facility] Therapy Treatment Form completed [facility] - [facility] 05/02/2025 14:38:10 05/01/20 25 [facility] Therapy Treatment Form completed [facility] - [facility] 05/01/2025 14:30:47 04/30/20 25 [facility] Therapy Treatment Form completed [facility] 04/30/2025 14:50:00 04/29/20 25 [facility] Therapy Treatment Form completed Zuleyka Morales [place] - [facility] 04/29/2025 15:42:38 04/28/20 25 [facility] Therapy Treatment Form completed Ngozi gonzalez [place] - [facility] 04/28/2025 13:47:28 04/25/20 25 [facility] Therapy Treatment Form completed Ngozi gonzalez [place] [facility] 04/25/2025 14:24:24 04/24/20 25 [facility] Therapy Treatment Form completed Zuleyka Morales [place] [facility] 04/24/2025 14:37:59 04/23/20 25 [facility] Therapy Treatment Form completed Ngozi gonzalez [place] [facility] 04/23/2025 13:52:55 04/22/20 25 [facility] Therapy Treatment Form completed Ngozi gonzalez [place] [facility] 04/22/2025 14:27:44 04/21/20 25 [facility] Therapy Treatment Form completed Ngozi carlos [place] [facility] 04/21/2025 14:09:03 04/18/20 25 [facility] Therapy Treatment Form completed [facility] - [facility] 04/18/2025 14:22:52 04/17/20 25 [facility] Therapy Treatment Form completed Ngozi carlos [place] [facility] 04/17/2025 14:14:34 04/16/20 25 [facility] Therapy Treatment Form completed Ngozi carlos [place] [facility] 04/16/2025 14:24:52 04/15/20 25 [facility] Therapy Treatment Form completed Ngozi carlos [place] [facility] 04/15/2025 14:43:45 04/14/20 25 [facility] Therapy Treatment Form completed Ngozi carlos [place] [facility] 04/14/2025 14:39:53 04/11/20 25 [facility] Therapy Treatment Form completed Ngozi carlos [place] [facility] 04/11/2025 14:38:24 04/10/20 25 [facility] Therapy Treatment Form completed [facility] - [facility] 04/10/2025 14:35:50 04/08/20 25 [facility] Therapy Treatment Form completed [facility] 04/08/2025 14:29:12 04/07/20 25 [facility] Therapy Treatment Form completed Nahomi Thurston [place] [facility] 04/07/2025 11:54:59 04/06/20 25 [facility] Therapy Treatment Form completed Nahomi Thurston [place] - [facility] 04/06/2025 12:08:17 04/05/20 25 [facility] Therapy Treatment Form completed Zuleyka Morales [place] [facility] 04/05/2025 11:59:40 04/04/20 25 [facility] Therapy Treatment Form completed Zuleyka Morales [place] [facility] 04/04/2025 17:25:52 04/03/20 25 [facility] Therapy Treatment Form completed Mariano Farley MD [place] - [facility] 04/03/2025 18:06:39 04/03/20 25 Wound completed Shona Napoleon [place] [facility] 04/03/2025 13:47:21 03/13/20 24 Knee Replacement completed Shonajesse Bender [place] [facility] 04/03/2025 13:56:18 04/13/20 23 coronary artery bypass grafts x 4 completed Shonajesse Bender [place] [facility] 04/03/2025 13:54:46 12/14/19 23 Gallbladder Surgery completed Shona Napoleon [place] [facility] 04/03/2025 13:54:58 11/13/19 23 biopsy of skin completed Shona Napoleon [place] [facility] 04/03/2025 14:10:49 11/13/19 21 release of trigger finger completed Shona Napoleon [place] [facility] 04/03/2025 13:55:11 11/13/19 21 hammer toe operation completed Shonajesse Bender [place] [facility] 04/03/2025 13:55:27 11/13/19 19 procedure on shoulder completed Shonajesse Bender [place] [facility] 04/03/2025 13:55:44 11/13/19 17 thumb surgery completed Shona Napoleon [place] [facility] 04/03/2025 13:56:03 11/13/18 94 section completed Shona Bender [place] [facility] 04/03/2025 13:57:12 11/13/18 92 section completed Shonajesse Bender [place] [facility] 04/03/2025 13:57:07 11/13/18 84 appendectomy completed Shona Bender [facility] 04/03/2025 13:57:28 11/13/18 77 tonsillectomy and adenoidectomy completed Shona Bender [place] [facility] 04/03/2025 13:57:37 Imaging [...] Recorded Heart rate Respiratory rate Body temperature Heart rate Respiratory rate Body temperature Oxygen saturation Oxygen saturation in Arterial blood by Pulse oximetry Systolic And Diastolic Systolic And Diastolic Provider Name and Address Organization Details Last Updated DateTime 5 84 /min 16 /min 97.2 [degF] 80 /min 16 /min 97.2 [degF] 100 % 100 % 128/71 mm[Hg] 118/66 mm[Hg] Nahomi Thurston [place] [facility] 5 11:54:12 Date Recorded Heart rate Respiratory rate Body temperature Oxygen saturation Oxygen saturation in Arterial blood by Pulse oximetry Heart rate Respiratory rate Body temperature Oxygen saturation Oxygen saturation in Arterial blood by Pulse oximetry Systolic And Diastolic Systolic And Diastolic Provider Name and Address Organization Details Last Updated DateTime 5 62 /min 16 /min 97 [degF] 99 % 99 % 76 /min 16 /min 97.5 [degF] 100 % 100 % 112/74 mm[Hg] 117/71 mm[Hg] [facility] 14:29:31 Social History None recorded. Functional Status None recorded. Mental Status None recorded. Family History Nothing Reported. Medical History Condition Response Allergies/Hayfever Y Heart Problems Y Coronary Artery Disease N Gout N Blood Diseases N Ear or Hearing Problems N Hyperthyroidism N Breast Cancer N Thyroid Problems N COPD N GI Problems N Depression N Hypothyroidism N Lung Disease N Developmental or Behavioral Disorders N Skin Problems Y Anemia N Anxiety Disorder N Diabetes Y Muscle, Joint, or Bone Problems N Arthritis Y Seizures/Epilepsy N AIDS/HIV N Congestive Heart Failure (CHF) N Cancer Y Stroke N Diverticulitis N Asthma N Endometriosis N Bladder or Kidney Problems N Liver Disease Y Heart Disease N Headaches N Fibromyalgia N Hypertension N Chronic Ear Infections N Osteoporosis N Kidney Disease N Gynecological HistoryNo gynecological history recorded. Obstetrics History GPAL:G 0 P 0 0 0 0 Past Encounters Encounter ID Performer Location Encounter Start Date Encounter Closed Date Diagnosis/Indication Diagnosis SNOMED-CT Code Diagnosis ICD10 Code Diagnosis Note [id number] Mariano Farley MD Main Office [address] [id number] 04/03/2025 13:39:59 04/03/2025 16:50:46 [id number] Mariano Farley MD Main Office [address] [id number] 04/03/2025 15:32:51 04/03/2025 18:10:03 [id number] Mariano Farley MD Main Office [address] [address] 04/04/2025 15:39:00 04/08/2025 08:19:46 390Chad Farley MD Main Office [address] [address] 04/05/2025 10:12:41 04/08/2025 08:22:20 Aure Farley MD Main Office [address] [id number] 04/06/2025 10:28:04 04/08/2025 08:26:15 Lis Farley MD Main Office [address] [address] 04/07/2025 09:45:56 04/08/2025 08:30:09 Health Concerns Section Related Observation LastModified by Organization Detai ls LastModified Time None Recorded Concern Status LastModified by Organization Details LastModified Time None Recorded Payers Encounter Date Sequence Insurance Name Policy Number Policy Gregorio Covered Member ID Gregorio Member ID Guarantor Name 04/07/2025 1 [id number] Zehra Shepherd [id number] Zehra Shepherd OBGyn Episode No OBEpisode recorded.
--- OUTSIDE RECORDS SUMMARY | 2025-06-01 10:54 | XMS_ITS | Continuity of Care Document ---
Author Organization [place] [facility], Main Office Address [address] [place] [address] Care Team Providers Care Drycleaner Name Role Phone JENNIFER MCCORD Primary Care [...] Modified By Organization Details Last Modified Time 05/22/2025 [id number] BACKGROUND 59 y/o female diabetic with moderately [...] MD ____ ____ Session notes Today's date: Session # 37 of 40 planed Next planned HBOT: 23May2025 22May - Found safe for HBOT this [...] drains and with some ABX packing extruding. NTAHAN DONIS 27May - Deemed safe for HBOT this date and completed full session uneventfully. Tomorrow she returns to her resident care provider for follow up. NATHAN DONIS 28May - not here due to conflicting medical appointment. NATHAN DONIS 29May - Cleared for HBOT this date and completed full session without problem. NATHAN DONIS 30May - Found safe for HBOT this date and completed full session without problem. She has also been back to see her Rail Signal Designer, Dr Catherine Weathers, who Ms Shepherd states was pleased with progress. NATHAN DONIS 02Jun - Patient cleared for HBOT today. VS stable. FSBG within range. Patient completed full session with no problem. Lg Agudelo APRN 03Jun - We received last week's note from her resident care provider and Dr Weathers expressed satisfaction with progress. [...] full session with no problem. Lg Agudelo BUSINESS INTELLIGENCE DIRECTOR 10Jun - Patient cleared for HBOT today. VS stable. FSBG within range. Patient completed full session with no problem. Lg Agudelo APRN 11Jun - Patient deemed safe for HBOT today. VS stable. FSBS pre-treatment and post-treatment within range. Patient completed full session with no problem. Lg gAudelo APRN 12Jun - Patient deemed safe for HBOT today. VS stable. FSBS pre-treatment and post-treatment within range. Patient completed full session with no problem. Lg Augdelo APRN 13Jun - Found safe for HBOT this date and completed full session free of problem. NATHAN DONIS 16Jun - Patient deemed safe for HBOT today. VS stable. FSBG within range. Patient completed full session with no problem. Lg Agudelo APRN 17Jun - Patient deemed safe for HBOT today. VS stable. FSBG within range. Patient completed full session with no problem. Lg Agudelo APRN 18un - Patient deemed safe for HBOT today. VS stable. FSBG within range. Patient completed full session with no problem. Lg Agudelo BUSINESS INTELLIGENCE DIRECTOR 19Jun - Patient deemed safe for HBOT today. VS stable. FSBG within range. Patient completed full session with no problem. Lg Agudelo APRN 20Jun - Arrived today without knee scooter; her resident care provider has advised can do without. Cleared for HBOT this date and completed full session without problem. NATHAN DONIS 23Jun - Patient deemed safe for HBOT today. VS stable. FSBG within range. Patient completed full session with no problem. Lg Agudelo APRN 24Jun - Patient deemed safe for HBOT today. VS stable. FSBG within range. Patient completed full session with no problem. Julio Cesar.Francisco Agudelo BUSINESS INTELLIGENCE DIRECTOR 25Jun - Patient cleared for HBOT today. VS stable. FSBG within range. Patient completed full session with no problem. Lg Agudelo BUSINESS INTELLIGENCE DIRECTOR 26Jun - Patient cleared for HBOT today. VS stable. FSBG within range. Patient completed full session with no problem. Lg Agudelo BUSINESS INTELLIGENCE DIRECTOR 27Jun - Found safe for HBOT this date and completed full session with no problem. NATHAN DONIS 30Jun - Cleared for HBOT this date and completed full session with no problem. I examined her Right foot and find that the original wound is now well closed free of drainage or tenderness. Adhering to the dogma that a closed wound is not a healed wound, we will continue HBOT to complete 40 sessions and then cease. NATHAN DONIS 01Jul - Found safe for HBOT this date and completed full session uneventfully. NATHAN DONIS 02Jul - Deemed safe for HBOT this date and completed full session without complaint. NATHAN DONIS 03Jul - Again cleared for HBOT and completed full session uneventfully. NATHAN DONIS 04Ju; - Found safe for HBOT this date and completed full session free of problem. NATHAN DONIS 07Jul - Cleared as safe for HBOT this date and completed full session free of problem. NATHAN DONIS 08Jul - Deemed safe for HBOT this date and completed full session with no problem. NATHAN DONIS 09Jul - Counting down last few sessions. Was in good order for HBOT this day and completed full session uneventfully. We got a note form her resident care provider, Dr Gay Weathers, who felt she was now suitable to stop treatment with session 40. Jennifer DONIS 10Jul - Cleared for HBOT this date and completed full session with no problem. [facility] [email or web address] Not available 05/22/2025 11:05:14 Reason for Referral None Reported. Procedures Surgical History Date Name Laterality Status Provider Name and Address Organization Details Recorded Time 05/27/20 25 [facility] Therapy Treatment Form completed [place] [facility] 05/27/2025 09:45:15 05/26/20 25 [facility] Therapy Treatment Form completed [facility] - [facility] 05/26/2025 09:41:49 05/23/20 25 [facility] Therapy Treatment Form completed [facility] - [facility] 05/23/2025 09:53:41 05/22/20 25 [facility] Therapy Treatment Form completed [facility] - [facility] 05/22/2025 09:49:19 05/21/20 25 [facility] Therapy Treatment Form completed [facility] - [facility] 05/21/2025 09:56:08 05/20/20 25 [facility] Therapy Treatment Form completed [facility] - [facility] 05/20/2025 09:41:29 05/19/20 25 [facility] Therapy Treatment Form completed [facility] - [facility] 05/19/2025 09:45:34 05/16/20 25 [facility] Therapy Treatment Form completed [facility] - [facility] 05/16/2025 09:41:57 05/15/20 25 [facility] Therapy Treatment Form completed [facility] - [facility] 05/15/2025 09:46:49 05/14/20 25 [facility] Therapy Treatment Form completed [facility] - [facility] 05/14/2025 14:06:43 05/13/20 25 [facility] Therapy Treatment Form completed [facility] - [facility] 05/13/2025 14:14:00 05/12/20 25 [facility] Therapy Treatment Form completed [facility] - [facility] 05/12/2025 14:06:32 05/09/20 25 [facility] Therapy Treatment Form completed [facility] - [facility] 05/09/2025 14:20:41 05/08/20 25 [facility] Therapy Treatment Form completed [facility] - [facility] 05/08/2025 14:16:34 05/07/20 25 [facility] Therapy Treatment Form completed [facility] - [facility] 05/07/2025 14:34:11 05/06/20 25 [facility] Therapy Treatment Form completed [facility] - [facility] 05/06/2025 14:33:30 05/05/20 25 [facility] Therapy Treatment Form completed [facility] - [facility] 05/05/2025 14:39:41 05/02/20 25 [facility] Therapy Treatment Form completed [facility] - [facility] 05/02/2025 14:38:10 05/01/20 25 [facility] Therapy Treatment Form completed [facility] - [facility] 05/01/2025 14:30:47 04/30/20 25 [facility] Therapy Treatment Form completed [facility] - [facility] 04/30/2025 14:50:00 04/29/20 25 [facility] 04/29/2025 15:42:38 04/28/20 25 [facility] Therapy Treatment Form completed [facility] 04/28/2025 13:47:28 04/25/20 25 [facility] Therapy Treatment Form completed [facility] 04/25/2025 14:24:24 04/24/20 25 [facility] 04/24/2025 14:37:59 04/23/20 25 [facility] Therapy Treatment Form completed [facility] - [facility] 04/23/2025 13:52:55 04/22/20 25 [facility] Therapy Treatment Form completed [facility] - [facility] 04/22/2025 14:27:44 04/21/20 25 [facility] Therapy Treatment Form completed [facility] 04/21/2025 14:09:03 04/18/20 25 [facility] Therapy Treatment Form completed [facility] 04/18/2025 14:22:52 04/17/20 25 [facility] Therapy Treatment Form completed [facility] 04/17/2025 14:14:34 04/16/20 25 [facility] Therapy Treatment Form completed [facility] 04/16/2025 14:24:52 04/15/20 25 [facility] Therapy Treatment Form completed [facility] - [facility] 04/15/2025 14:43:45 04/14/20 25 [facility] Therapy Treatment Form completed [facility] - [facility] 04/14/2025 14:39:53 04/11/20 25 [facility] Therapy Treatment Form completed [facility] - [facility] 04/11/2025 14:38:24 04/10/20 25 [facility] Therapy Treatment Form completed [facility] 04/10/2025 14:35:50 04/08/20 25 [facility] Therapy Treatment Form completed Ngozi gonzalez [place] - [facility] 04/08/2025 14:29:12 04/07/20 [...] Therapy Treatment Form completed Mariano Farley MD [place] [facility] 04/03/2025 18:06:39 04/03/20 25 Wound completed Shonajesse Bender [place] [facility] 04/03/2025 13:47:21 03/13/20 24 Knee Replacement completed Shona Bender [place] [facility] 04/03/2025 13:56:18 04/13/20 23 coronary artery bypass grafts x 4 completed Shona Bender [place] [facility] 04/03/2025 13:54:46 12/14/19 23 Gallbladder Surgery completed Shonajesse Bender [place] [facility] [...] 13:55:44 11/13/19 17 thumb surgery completed Shona Bender [place] [facility] [...] Address Organization Details Last Updated DateTime 5 79 /min 16 /min 97.2 [degF] 100 % 100 % 73 /min 16 /min 97.5 [degF] 99 % 99 % 106/77 mm[Hg] 110/73 mm[Hg] N[place] carlos [place] [facility] 5 09:49:38 Social History None recorded. Functional Status None recorded. Mental Status None recorded. Family History Nothing Reported. Medical History Condition Response Coronary Artery Disease N Gout N Blood Diseases N Hyperthyroidism N Breast Cancer N Lung Disease N Hypothyroidism N Depression N COPD N Developmental or Behavioral Disorders N Anxiety Disorder N Muscle, Joint, or Bone Problems N Arthritis Y Cancer Y Stroke N Endometriosis N Bladder or Kidney Problems N Liver Disease Y Headaches N Fibromyalgia N Kidney Disease N Allergies/Hayfever Y Heart Problems Y Ear or Hearing Problems N Thyroid Problems N GI Problems N Skin Problems Y Anemia N Diabetes Y Seizures/Epilepsy N AIDS/HIV N Congestive Heart Failure (CHF) N Diverticulitis N Asthma N Heart Disease N Hypertension N Chronic Ear Infections N Osteoporosis N Gynecological HistoryNo gynecological history recorded. Obstetrics History GPAL:G 0 P 0 0 0 0 Past Encounters Encounter ID Performer Location Encounter Start Date Encounter Closed Date Diagnosis/Indication Diagnosis SNOMED-CT Code Diagnosis ICD10 Code Diagnosis Note [id number] Mariano Farley MD Main Office [address] [place] [address] 04/22/2025 11:58:46 04/22/2025 14:50:54 [id number] Mariano Farley MD Main Office [address] [place] [address] 04/23/2025 11:38:35 04/23/2025 14:47:00 [id number] Mariano Farley MD Main Office [address] [place] [address] 04/24/2025 12:20:48 04/24/2025 15:34:39 [id number] Mariano Farely MD Main Office [address] [place] [address] 04/25/2025 12:14:52 04/30/2025 15:40:51 [id number] Mariano Farley MD Main Office [address] [place] [address] 04/28/2025 11:33:32 05/01/2025 08:04:21 Rosa lEena Farley MD Main Office [address] [place] [address] 04/29/2025 13:00:52 05/01/2025 08:57:14 [id number] Mariano Farley MD Main Office [address] [place] [address] 04/30/2025 12:43:07 05/01/2025 09:26:34 [id number] Mariano Farley MD Main Office [address] [place] [address] 05/01/2025 12:24:55 05/01/2025 15:28:20 [id number] Mariano Farley MD Main Office [address] [place] [address] 05/02/2025 12:29:37 05/05/2025 01:36:37 [id number] Mariano Farley MD Main Office [address] [place] [address] 05/05/2025 12:35:08 05/05/2025 15:28:24 [id number] Mariano Farley MD Main Office [address] [place] [address] 05/06/2025 12:22:35 05/06/2025 17:17:12 [id number] Mariano Farley MD Main Office [address] [place] [address] 05/07/2025 12:27:25 05/07/2025 14:53:23 [id number] Mariano Farley MD Main Office [address] [place] [address] 05/08/2025 12:04:54 05/08/2025 15:52:07 [id number] Mariano Farley MD Main Office [address] [place] [address] 05/09/2025 12:17:15 05/09/2025 17:22:51 [id number] Mariano Farley MD Main Office [address] [place] [address] 05/12/2025 12:05:21 05/12/2025 19:44:55 Billie6 Mariano Farley MD Main Office [address] [place] [address] 05/13/2025 11:43:11 05/13/2025 17:35:49 [id number] Mariano Farley MD Main Office [address] [place] [address] 05/14/2025 12:18:55 05/14/2025 19:59:05 [id number] Mariano Farley MD Main Office [address] [place] [address] 05/15/2025 07:47:37 05/15/2025 09:52:44 [id number] Mariano Farley MD Main Office [address] [place] [address] 05/16/2025 07:42:13 05/19/2025 06:53:35 [id number] Mariano Farley MD Main Office [address] [place] [address] 05/19/2025 07:43:50 05/20/2025 07:03:34 [id number] Mariano Farley MD Main Office [address] [place] [address] 05/20/2025 07:49:53 05/21/2025 10:50:47 [id number] Mariano Farley MD Main Office [address] [place] [address] 05/21/2025 08:03:58 05/21/2025 20:00:08 [id number] Mariano Farley MD Main Office [address] [place] [address] 05/22/2025 07:49:59 05/22/2025 11:05:19 Health Concerns Section Related Observation LastModified by Organization Detai ls LastModified Time None Recorded Concern Status LastModified by Organization Details LastModified Time None Recorded Payers Encounter Date Sequence Insurance Name Policy Number Policy Gregorio Covered Member ID Gregorio Member ID Guarantor Name 05/22/2025 1 [id number] Zehra Sanor [id number] Zehra Sanor OBGyn Episode No OBEpisode recorded.
--- OUTSIDE RECORDS SUMMARY | 2025-06-01 10:54 | XMS_ITS | Continuity of Care Document ---
Author Organization [place] [facility], Main Office Address [address] [place] [address] Care Team Providers Care College Associate Name Role Phone JENNIFER MCCORD Primary Care Provider [phone] Assessment No assessment recorded. Plan of Treatment [...] Modified By Organization Details Last Modified Time 04/18/2025 4073 BACKGROUND 59 y/o female diabetic with moderately [...] MD ____ ____ Session notes Today's date: 18Apr2025 Session # 13 of 40 planed Next planned HBOT: 21Apr2025 22May - Found safe for HBOT this [...] session uneventfully. Tomorrow she returns to her phone operator for follow up. NATHAN DONIS 28May - not here due to conflicting medical appointment. NATHAN DONIS 29May - Cleared for HBOT this date and completed full session without problem. NATHAN DONIS 30May - Found safe for HBOT this date and completed full session without problem. She has also been back to see her Jet Piercer Operator, Dr Catherine Weathers, who Ms Shepherd states was pleased with progress. NATHAN DONIS 02Jun - Patient cleared for HBOT today. VS stable. FSBG within range. Patient completed full session with no problem. Lg Agudelo APRN 03Jun - We received last week's note from her phone operator and Dr Weathers expressed satisfaction with progress. Case reviewed today and note she has 20 more Sessions authorized. To get more sessions authorized will require unresolved remaining issues which will need to be carefully assessed. Jennifer DONIS 04Eriberto - Cleared for HBOT this date and completed full session without problem. NATHAN DONIS 05Jun - Deemed safe for HBOT this date and completed full session free of problem. NATHAN DONIS 06Eriberto - Deemed safe for HBOT this date and completed full session free of problem. [facility] MD [email or web address] Not available 04/18/2025 17:06:43 Reason for Referral None Reported. Procedures Surgical History Date Name Laterality Status Provider Name and Address Organization Details Recorded Time 05/27/20 25 [facility] Therapy Treatment Form completed [facility] - [facility] 05/27/2025 09:45:15 05/26/20 25 [facility] Therapy Treatment Form completed [facility] 05/26/2025 09:41:49 05/23/20 25 [facility] Therapy Treatment Form completed [facility] - [facility] 05/23/2025 09:53:41 05/22/20 25 [facility] Therapy Treatment Form completed [facility] - [facility] 05/22/2025 09:49:19 05/21/20 25 [facility] Therapy Treatment Form completed [facility] - [facility] 05/21/2025 09:56:08 05/20/20 25 [facility] Therapy Treatment Form completed [facility] - [facility] 05/20/2025 09:41:29 05/19/20 25 [facility] Therapy Treatment Form completed [facility] - [facility] 05/19/2025 09:45:34 05/16/20 25 [facility] Therapy Treatment Form completed [facility] - [facility] 05/16/2025 09:41:57 05/15/20 25 [facility] Therapy Treatment Form completed [facility] - [facility] 05/15/2025 09:46:49 05/14/20 25 [facility] Therapy Treatment Form completed [facility] - [facility] 05/14/2025 14:06:43 05/13/20 25 [facility] Therapy Treatment Form completed [facility] - [facility] 05/13/2025 14:14:00 05/12/20 25 [facility] Therapy Treatment Form completed [facility] - [facility] 05/12/2025 14:06:32 05/09/20 25 [facility] Therapy Treatment Form completed [facility] - [facility] 05/09/2025 14:20:41 05/08/20 25 [facility] Therapy Treatment Form completed [facility] - [facility] 05/08/2025 14:16:34 05/07/20 25 [facility] Therapy Treatment Form completed [facility] - [facility] 05/07/2025 14:34:11 05/06/20 25 [facility] Therapy Treatment Form completed [facility] - [facility] 05/06/2025 14:33:30 05/05/20 25 [facility] Therapy Treatment Form completed [facility] - [facility] 05/05/2025 14:39:41 05/02/20 25 [facility] Therapy Treatment Form completed [facility] 05/02/2025 14:38:10 05/01/20 25 [facility] Therapy Treatment Form completed [facility] 05/01/2025 14:30:47 04/30/20 25 [facility] Therapy Treatment Form completed [facility] 04/30/2025 14:50:00 04/29/20 25 [facility] Therapy Treatment Form completed Zuleyka Morales [place] [facility] 04/29/2025 15:42:38 04/28/20 25 [facility] Therapy Treatment Form completed [facility] - [facility] 04/28/2025 13:47:28 04/25/20 25 [facility] Therapy Treatment Form completed [facility] 04/25/2025 14:24:24 04/24/20 25 [facility] 04/24/2025 14:37:59 04/23/20 25 [facility] Therapy Treatment Form completed [facility] 04/23/2025 13:52:55 04/22/20 25 [facility] Therapy Treatment Form completed [facility] 04/22/2025 14:27:44 04/21/20 25 [facility] Therapy Treatment Form completed [facility] 04/21/2025 14:09:03 04/18/20 25 [facility] Therapy Treatment Form completed [facility] 04/18/2025 14:22:52 04/17/20 25 [facility] Therapy Treatment Form completed [facility] 04/17/2025 14:14:34 04/16/20 25 [facility] Therapy Treatment Form completed [facility] 04/16/2025 14:24:52 04/15/20 25 [facility] Therapy Treatment Form completed [facility] - [facility] 04/15/2025 14:43:45 04/14/20 25 [facility] Therapy Treatment Form completed [facility] 04/14/2025 14:39:53 04/11/20 25 [facility] Therapy Treatment Form completed [facility] 04/11/2025 14:38:24 04/10/20 25 [facility] Therapy Treatment Form completed [facility] 04/10/2025 14:35:50 04/08/20 25 [facility] Therapy Treatment Form completed [facility] - [facility] 04/08/2025 14:29:12 04/07/20 25 [facility] Therapy Treatment Form completed Nahomi THAKKAR - [facility] 04/07/2025 11:54:59 04/06/20 25 [facility] Therapy Treatment Form completed Nahomi Roote [place] [facility] 04/06/2025 12:08:17 04/05/20 [...] 04/03/2025 18:06:39 04/03/20 25 Wound completed Shona Bender [place] [facility] 04/03/2025 13:47:21 03/13/20 24 Knee Replacement completed Shona THAKKAR - [facility] 04/03/2025 13:56:18 04/13/20 23 coronary artery bypass grafts x 4 completed Shona Bender [place] [facility] 04/03/2025 13:54:46 12/14/19 23 Gallbladder Surgery completed Shona THAKKAR - [facility] 04/03/2025 13:54:58 11/13/19 23 biopsy of skin completed Shona THAKKAR - [facility] 04/03/2025 14:10:49 11/13/19 21 release of trigger finger completed Shona THAKKAR - [facility] 04/03/2025 13:55:11 11/13/19 21 hammer toe operation completed Shona THAKKAR - [facility] 04/03/2025 13:55:27 11/13/19 19 procedure on shoulder completed Shona THAKKAR - [facility] 04/03/2025 13:55:44 11/13/19 17 thumb surgery completed Shona THAKKAR - [facility] 04/03/2025 13:56:03 11/13/18 94 section completed Shona THAKKAR - [facility] 04/03/2025 13:57:12 11/13/18 92 section completed Shona THAKKAR - [facility] 04/03/2025 13:57:07 11/13/18 84 appendectomy completed Shona [facility]AKK[facility] 04/03/2025 13:57:28 11/13/18 [...] Address Organization Details Last Updated DateTime 5 90 /min 16 /min 97.7 [degF] 98 % 98 % 69 /min 16 /min 97.7 [degF] 100 % 100 % 131/68 mm[Hg] 116/73 mm[Hg] [facility] - [facility] 5 14:23:06 Social History None recorded. Functional Status None recorded. Mental Status None recorded. Family History Nothing Reported. Medical History Condition Response Allergies/Hayfever Y Heart Problems Y Coronary Artery Disease N Gout N Blood Diseases N Hyperthyroidism N Ear or Hearing Problems N Breast Cancer N Thyroid Problems N Lung Disease N Hypothyroidism N Depression N COPD N GI Problems N Developmental or Behavioral Disorders N Skin Problems Y Anemia N Diabetes Y Anxiety Disorder N Muscle, Joint, or Bone Problems N Seizures/Epilepsy N Arthritis Y AIDS/HIV N Congestive Heart Failure (CHF) N [...] [id number] Mariano Farley MD Main Office [address] [place] [address] 04/03/2025 13:39:59 04/03/2025 16:50:46 [id number] Maraino Farley MD Main Office [address] [place] [address] 04/03/2025 15:32:51 04/03/2025 18:10:03 [id number] Mariano Farley MD Main Office [address] [address] [place] [address] 04/04/2025 15:39:00 04/08/2025 08:19:46 [id number] Mariano Farley MD Main Office [address] [place] [address] 04/05/2025 10:12:41 04/08/2025 08:22:20 [id number] Mariano Farley MD Main Office [address] [place] [address] 04/06/2025 10:28:04 04/08/2025 08:26:15 [id number] Mariano Farley MD Main Office [address] [place] [address] 04/07/2025 09:45:56 04/08/2025 08:30:09 [id number] Mariano Farley MD Main Office [address] [place] [address] 04/08/2025 12:11:52 04/08/2025 18:52:34 [id number] Mariano Farley MD Main Office [address] [place] [address] 04/10/2025 12:15:32 04/11/2025 13:41:15 [id number] Mariano Farley MD Main Office [address] [place] [address] 04/11/2025 12:17:41 04/14/2025 08:14:43 [id number] Mariano Farley MD Main Office [address] [place] [address] 04/14/2025 12:22:08 04/14/2025 17:08:51 [id number] Mariano Farley MD Main Office [address] [place] [address] 04/15/2025 12:29:05 04/15/2025 18:07:29 4030 Mariano Farley MD Main Office [address] [place] [address] 04/16/2025 12:09:34 04/16/2025 16:28:25 [id number] Mariano Farley MD Main Office [address] [place] [address] 04/17/2025 12:00:06 04/17/2025 15:57:18 [id number] Mariano Farley MD Main Office [address] [place] [address] 04/18/2025 12:10:37 04/18/2025 17:06:48 Health Concerns Section Related Observation LastModified by Organization Detai ls LastModified Time None Recorded Concern Status LastModified by Organization Details LastModified Time None Recorded Payers Encounter Date Sequence Insurance Name Policy Number Policy Gregorio Covered Member ID Gregorio Member ID Guarantor Name 04/18/2025 1 [id number] Zehra Sanor [id number] Zehra Sanor OBGyn Episode No OBEpisode recorded.
--- OUTSIDE RECORDS SUMMARY | 2025-06-01 10:54 | XMS_ITS | Continuity of Care Document ---
Author Organization [place] [facility], Main Office Address [address] [place] [address] Care Team Providers Care Special Warfare Combatant Crewman Name Role Phone JENNIFER MCCORD Primary Care [...] Modified By Organization Details Last Modified Time 05/27/2025 [id number] BACKGROUND 59 y/o female diabetic with moderately [...] MD ____ ____ Session notes Today's date: [id number] Session # 40 of 60 planed Next planned HBOT: TBD 22May - Found safe for HBOT this [...] session uneventfully. Tomorrow she returns to her institutional asset manager for follow up. NATHAN DONIS 28May - not here due to conflicting medical appointment. NATHAN DONIS 29May - Cleared for HBOT this date and completed full session without problem. NATHAN DONIS 30May - Found safe for HBOT this date and completed full session without problem. She has also been back to see her Sales Vice President, Dr Catherine Weathers, who Ms Shepherd states was pleased with progress. NATHAN DONIS 02Jun - Patient cleared for HBOT today. VS stable. FSBG within range. Patient completed full session with no problem. Lg Agudelo APRN 03Jun - We received last week's note from her institutional asset manager and Dr Weathers expressed satisfaction with progress. [...] full session with no problem. Lg Agudelo HATCH BOSS 10Jun - Patient cleared for HBOT today. VS stable. FSBG within range. Patient completed full session with no problem. gL Agudelo APRN 11Jun - Patient deemed safe for HBOT today. VS stable. FSBS pre-treatment and post-treatment within range. Patient completed full session with no problem. Lg Agudelo APRN 12Jun - Patient deemed safe for HBOT today. VS stable. FSBS pre-treatment and post-treatment within range. Patient completed full session with no problem. Lg Agudelo APRN 13Jun - Found safe for HBOT this date and completed full session free of problem. NATHAN DONIS 16Jun - Patient deemed safe for HBOT today. VS stable. FSBG within range. Patient completed full session with no problem. Lg Agudelo HATCH BOSS 17Jun - Patient deemed safe for HBOT today. VS stable. FSBG within range. Patient completed full session with no problem. Lg Agudelo APRN 18un - Patient deemed safe for HBOT today. VS stable. FSBG within range. Patient completed full session with no problem. Lg Agudelo HATCH BOSS 19Jun - Patient deemed safe for HBOT today. VS stable. FSBG within range. Patient completed full session with no problem. Lg Agudelo APRN 20Jun - Arrived today without knee scooter; her institutional asset manager has advised can do without. Cleared for HBOT this date and completed full session without problem. NATHAN DONIS 23Jun - Patient deemed safe for HBOT today. VS stable. FSBG within range. Patient completed full session with no problem. Lg Agudelo APRN 24Jun - Patient deemed safe for HBOT today. VS stable. FSBG within range. Patient completed full session with no problem. M.A. Magnus HATCH BOSS 25Jun - Patient cleared for HBOT today. VS stable. FSBG within range. Patient completed full session with no problem. M.A. Magnus HATCH BOSS 26Jun - Patient cleared for HBOT today. VS stable. FSBG within range. Patient completed full session with no problem. M.A. Magnus HATCH BOSS 27Jun - Found safe for HBOT this date and completed full session with no problem. Jennifer DONIS 30Jun - Cleared for HBOT this [...] uneventfully. We got a note form her institutional asset manager, Dr Gay Weathers, who felt she was now suitable to stop treatment with session 40. NATHAN DONIS 10Jul - Cleared for HBOT this date and completed full session with no problem. NATHAN DONIS 11Jul - Found safe for HBOT this date and completed full session uneventfully. NATHAN DONIS 14Jul - Patient deemed safe for HBOT today. VS stable. FSBG within range. Patient completed full session with no problem. M.A. Magnus HATCH BOSS 15ul - Patient deemed safe for HBOT today. VS stable. FSBG within range. Patient completed full session with no problem. Patient is done with treatments for now, as she is healed and completed 40 sessions. M.A. Magnus HATCH BOSS Not available 05/27/2025 10:45:24 Reason for Referral None Reported. Procedures Surgical History Date Name Laterality Status Provider Name and Address Organization Details Recorded Time 05/27/20 25 [facility] Therapy Treatment Form completed [facility] 05/27/2025 09:45:15 05/26/20 25 [facility] Therapy Treatment Form completed [facility] 05/26/2025 09:41:49 05/23/20 25 [facility] Therapy Treatment Form completed [facility] 05/23/2025 09:53:41 05/22/20 25 [facility] Therapy Treatment Form completed [facility] 05/22/2025 09:49:19 05/21/20 25 [facility] Therapy Treatment Form completed [facility] 05/21/2025 09:56:08 05/20/20 25 [facility] Therapy Treatment Form completed [facility] 05/20/2025 09:41:29 05/19/20 25 [facility] Therapy Treatment Form completed [facility] 05/19/2025 09:45:34 05/16/20 25 [facility] Therapy Treatment Form completed [facility] 05/16/2025 09:41:57 05/15/20 25 [facility] Therapy Treatment Form completed [facility] 05/15/2025 09:46:49 05/14/20 25 [facility] Therapy Treatment Form completed [facility] 05/14/2025 14:06:43 05/13/20 25 [facility] Therapy Treatment Form completed [facility] 05/13/2025 14:14:00 05/12/20 25 [facility] Therapy Treatment Form completed [facility] 05/12/2025 14:06:32 05/09/20 25 [facility] Therapy Treatment Form completed [facility] 05/09/2025 14:20:41 05/08/20 25 [facility] Therapy Treatment Form completed [facility] 05/08/2025 14:16:34 05/07/20 25 [facility] Therapy Treatment Form completed [facility] 05/07/2025 14:34:11 05/06/20 25 [facility] Therapy Treatment Form completed [facility] - [facility] 05/06/2025 14:33:30 05/05/20 25 [facility] Therapy Treatment Form completed [facility] - [facility] 05/05/2025 14:39:41 05/02/20 25 [facility] Therapy Treatment Form completed [facility] - [facility] 05/02/2025 14:38:10 05/01/20 25 [facility] Therapy Treatment Form completed [facility] - [facility] 05/01/2025 14:30:47 04/30/20 25 [facility] Therapy Treatment Form completed [facility] - [facility] 04/30/2025 14:50:00 04/29/20 25 [facility] Therapy Treatment Form completed Zuleyka Morales [place] - [facility] 04/29/2025 15:42:38 04/28/20 25 [facility] Therapy Treatment Form completed [facility] - [facility] 04/28/2025 13:47:28 04/25/20 25 [facility] Therapy Treatment Form completed [facility] - [facility] 04/25/2025 14:24:24 04/24/20 25 [facility] Therapy Treatment Form completed Zuleyka Morales [place] - [facility] 04/24/2025 14:37:59 04/23/20 25 [facility] Therapy Treatment Form completed [facility] - [facility] 04/23/2025 13:52:55 04/22/20 25 [facility] Therapy Treatment Form completed [facility] - [facility] 04/22/2025 14:27:44 04/21/20 25 [facility] Therapy Treatment Form completed [facility] - [facility] 04/21/2025 14:09:03 04/18/20 25 [facility] Therapy Treatment Form completed [facility] - [facility] 04/18/2025 14:22:52 04/17/20 25 [facility] Therapy Treatment Form completed [facility] - [facility] 04/17/2025 14:14:34 04/16/20 25 [facility] Therapy Treatment Form completed [facility] - [facility] 04/16/2025 14:24:52 04/15/20 25 [facility] Therapy Treatment Form completed [facility] - [facility] 04/15/2025 14:43:45 04/14/20 25 [facility] Therapy Treatment Form completed Ngozi THAKKAR - [facility] 04/14/2025 14:39:53 04/11/20 25 [facility] Therapy Treatment Form completed Ngozi THAKKAR - [facility] 04/11/2025 14:38:24 04/10/20 25 [facility] Therapy Treatment Form completed Ngozi THAKKAR - [facility] 04/10/2025 14:35:50 04/08/20 25 [facility] Therapy Treatment Form completed Ngozi THAKKAR - [facility] 04/08/2025 14:29:12 04/07/20 25 [facility] Therapy Treatment Form completed Nahomi Thurston [place] - [facility] 04/07/2025 11:54:59 04/06/20 25 [facility] Therapy Treatment Form completed Nahomi Roote [place] - [facility] 04/06/2025 12:08:17 04/05/20 25 [facility] Therapy Treatment Form completed Zuleyka THAKKAR - [facility] 04/05/2025 11:59:40 04/04/20 25 [facility] Therapy Treatment Form completed Zuleyka Beyden [place] - [facility] 04/04/2025 17:25:52 04/03/20 25 [facility] Therapy Treatment Form completed MD ARIANE Suero - [facility] 04/03/2025 18:06:39 04/03/20 [...] 13:55:44 11/13/19 17 thumb surgery completed Shona THKAKAR - [facility] 04/03/2025 13:56:03 [...] Updated DateTime 5 84 /min 16 /min 96.6 [degF] 81 /min 16 /min 98.2 [degF] 100 % 100 % 131/79 mm[Hg] 117/75 mm[Hg] [facility] 09:45:34 Social History None recorded. Functional Status None [...] SNOMED-CT Code Diagnosis ICD10 Code Diagnosis Note [id number] Mariano Farley MD Main Office [address] [place] [address] 04/28/2025 11:33:32 05/01/2025 08:04:21 [id number] Mariano Farley MD Main Office [address] [place] [address] 04/29/2025 13:00:52 05/01/2025 08:57:14 [id number] Mariano Farley MD Main Office [address] [place] [address] 04/30/2025 12:43:07 05/01/2025 09:26:34 [id number] Mariano Farley MD Main Office [address] [place] [address] 05/01/2025 12:24:55 05/01/2025 15:28:20 [id number] Mariano Farley MD Main Office [address] [place] [address] 05/02/2025 12:29:37 05/05/2025 01:36:37 [id number] Mariano Farley MD Main Office [address] [place] [address] 05/05/2025 12:35:08 05/05/2025 15:28:24 [id number] Mariano Farley MD Main Office [address] [place] [address] 05/06/2025 12:22:35 05/06/2025 17:17:12 [id number] Mariano Farley MD Main Office [address] [place] [address] 05/07/2025 12:27:25 05/07/2025 14:53:23 [id number] Mariano Farley MD Main Office [address] [place] [address] 05/08/2025 12:04:54 05/08/2025 15:52:07 [id number] Mariano Farley MD Main Office [address] [place] [address] 05/09/2025 12:17:15 05/09/2025 17:22:51 [id number] Mariano Farley MD Main Office [address] [place] [address] 05/12/2025 12:05:21 05/12/2025 19:44:55 [id number] Mariano Farley MD Main Office [address] [place] [address] 05/13/2025 11:43:11 05/13/2025 17:35:49 [id number] Mariano Farley MD Main Office [address] [place] [address] 05/14/2025 12:18:55 05/14/2025 19:59:05 [id number] Mariano Farley MD Main Office [address] [place] [address] 05/15/2025 07:47:37 05/15/2025 09:52:44 [id number] Mariano Farley MD Main Office [address] [place] [address] 05/16/2025 07:42:13 05/19/2025 06:53:35 4402 Mariano Farley MD Main Office [address] [place] [address] 05/19/2025 07:43:50 05/20/2025 07:03:34 [id number] Mariano Farley MD Main Office [address] [place] [address] 05/20/2025 07:49:53 05/21/2025 10:50:47 [id number] Mariano Farley MD Main Office [address] [place] [address] 05/21/2025 08:03:58 05/21/2025 20:00:08 [id number] Mariano Farley MD Main Office [address] [place] [address] 05/22/2025 07:49:59 05/22/2025 11:05:19 [id number] Mariano Farley MD Main Office [address] [place] [address] 05/23/2025 07:57:04 05/26/2025 03:14:43 [id number] Mariano Farley MD Main Office [address] [place] [address] 05/26/2025 07:46:04 05/26/2025 10:49:52 [id number] Mariano Farley MD Main Office [address] [place] [address] 05/27/2025 07:59:21 05/27/2025 10:46:11 Health Concerns Section Related Observation LastModified by Organization Detai ls LastModified Time None Recorded Concern Status LastModified by Organization Details LastModified Time None Recorded Payers Encounter Date Sequence Insurance Name Policy Number Policy Gregorio Covered Member ID Gregorio Member ID Guarantor Name 05/27/2025 1 [id number] Zehra Sanor [id number] Zehra Shepherd OBGyn Episode No OBEpisode recorded.
--- OUTSIDE RECORDS SUMMARY | 2025-06-01 10:54 | XMS_ITS | Encounter Summary ---
Author Organization [employer] ([place], [place], [place], [place]) Address [address] [place] [address] Care Team Providers Care Writer Technical Publications Name Role Phone Amalia Walter Primary Care Provider [phone] Encounter Details Date Type Department Care Team (Late st Contact Info) Description 01/28/2021 Transcribed Document [facility] [place] [address] [place] [address] ProviderEmely MD [address] [place] [address] Social History Tobacco Use Types [...] Emely ProviderMD - 01/28/2021 12:31 PM CDT [facility] Main OR PostOp Summary Primary Physician: NORMA FOSTER DPM-POD Finalized Date/Time: 01/28/21 16:01:28 Pt. Name: ZEHRA SHEPHERD /Sex: 1965 Female Med Rec #: [id number] Physician: NORMA FOSTER DPM-POD Financial #: [id number] Pt. Type: O Room/Bed: Admit/Disch: 01/28/21 08:17:00 - Institution: [facility] Main OR PostOp Case Times Entry 1 [...] Unfinalizing Freetext Reason for Unfinalizing 01/28/21 16:01 [id number] Modify Pick List Electronically signed by Rebecca [facility] Conversion Materials And Corrosion Engineer Cerner at 02/28/2023 7:34 PM CDT documented in this encounter Plan of Treatment Not on file documented as of this encounter Visit Diagnoses Not on filedocumented in this encounter Care Teams Writer Technical Publications Relationship Specialty Start Date End Date Amalia Walter [address] [place] [address] PCP - General 04/09/24 documented as of this encounter
--- OUTSIDE RECORDS SUMMARY | 2025-06-01 10:54 | XMS_ITS | Encounter Summary ---
Author Organization [employer] ([place], [place], [place], [place]) Address [address] [place] [address] Care Team Providers Care Ext Js Developer Name Role Phone Amalia Walter Primary Care Provider [phone] Encounter Details Date Type Department Care Team (Late st Contact Info) Description 01/28/2021 Transcribed Document [facility] [place] [address] [place] [address] ProviderEmely MD [address] [place] [address] Social History Tobacco Use Types [...] Anesthesiologist Procedure Case Attendee Role 2 : fence manufacture supervisor Case Attendee 2 : GUILLE Zhu RN Procedure Case Attendee Role 3 : fence manufacture supervisor Case Attendee 3 : DEB DANIELS RN [...] mmHg Diastolic Blood Pressure : 76 mmHg EDB DANIELS RN - 01/28/2021 10:28 EDT Oxygen Therapy Oxygen Titrated : No Oxygen Therapy Mode : Nasal cannula Oxygen Flow Rate : 2 Liter/Min O2 Saturation Monitoring Frequency : Continuous Oxygen Saturation : 100 % DEB DANIELS RN - 01/28/2021 10:28 EDT Electronically signed by Jeferson Fernandez Conversion Hoop Flaring Machine Operator Cerner at 02/28/2023 7:43 PM CDT documented in this encounter Plan of Treatment Not on file documented as of this encounter Visit Diagnoses Not on filedocumented in this encounter Care Teams Ext Js Developer Relationship Specialty Start Date End Date Amalia Walter [address] [place] [address] PCP - General 04/09/24 documented as of this encounter
--- OUTSIDE RECORDS SUMMARY | 2025-06-01 10:55 | XMS_ITS | Continuity of Care Document ---
Author Organization [place] - [facility], Main Office Address [address] [place] [address] Care Team Providers Care Order Puller Name Role Phone JENNIFER MCCORD Primary Care Provider [phone] Assessment No assessment recorded. Plan of Treatment [...] Modified By Organization Details Last Modified Time 05/13/2025 [id number] BACKGROUND 59 y/o female diabetic with moderately [...] MD ____ ____ Session notes Today's date: 13May2025 Session # 30 of 40 planed Next planned HBOT: 14May2025 22May - Found safe for HBOT this [...] session uneventfully. Tomorrow she returns to her registered dietitian for follow up. NATHAN DONIS 28May - not here due to conflicting medical appointment. NATHAN DONIS 29May - Cleared for HBOT this date and completed full session without problem. NATHAN DONIS 30May - Found safe for HBOT this date and completed full session without problem. She has also been back to see her Argon Tester, Dr Catherine Weathers, who Ms Shepherd states was pleased with progress. NATHAN DONIS 02Jun - Patient cleared for HBOT today. VS stable. FSBG within range. Patient completed full session with no problem. Lg Agudelo APRN 03Jun - We received last week's note from her registered dietitian and Dr Weathers expressed satisfaction with progress. [...] full session with no problem. Lg Agudelo CHARGE MANAGER 10Jun - Patient cleared for HBOT today. [...] full session with no problem. Lg Agudelo CHARGE MANAGER 19Jun - Patient deemed safe for HBOT today. VS stable. FSBG within range. Patient completed full session with no problem. Lg Agudelo APRN 20Jun - Arrived today without knee scooter; her registered dietitian has advised can do without. Cleared for HBOT this date and completed full session without problem. NATHAN DONIS 23Jun - Patient deemed safe for HBOT today. VS stable. FSBG within range. Patient completed full session with no problem. Lg Agudelo APRN 24Jun - Patient deemed safe for HBOT today. VS stable. FSBG within range. Patient completed full session with no problem. Julio Cesar.Francisco AndersonMagnus CHARGE MANAGER 25Jun - Patient cleared for HBOT today. VS stable. FSBG within range. Patient completed full session with no problem. Julio Cesar.Francisco [place] CHARGE MANAGER 26Jun - Patient cleared for HBOT today. VS stable. FSBG within range. Patient completed full session with no problem. Lg [place] CHARGE MANAGER 27Jun - Found safe for HBOT this [...] this date and completed full session uneventfully. [facility] [email or web address] Not available 05/13/2025 17:35:44 Reason for Referral None Reported. Procedures Surgical History Date Name Laterality Status Provider Name and Address Organization Details Recorded Time 05/27/20 25 [facility] Therapy Treatment Form completed [facility] - [facility] 05/27/2025 09:45:15 05/26/20 25 [facility] Therapy Treatment Form completed [facility] - [facility] 05/26/2025 09:41:49 05/23/20 25 [facility] Therapy Treatment Form completed [facility] - [facility] 05/23/2025 09:53:41 05/22/20 25 [facility] Therapy Treatment Form completed [facility] - [facility] 05/22/2025 09:49:19 05/21/20 25 [facility] Therapy Treatment Form completed [facility] - [facility] 05/21/2025 09:56:08 05/20/20 25 [facility] Therapy Treatment Form completed [facility] - [facility] 05/20/2025 09:41:29 05/19/20 25 [facility] Therapy Treatment Form completed [facility] - [facility] 05/19/2025 09:45:34 05/16/20 25 [facility] Therapy Treatment Form completed [facility] 05/16/2025 09:41:57 05/15/20 25 [facility] Therapy Treatment Form completed [facility] - [facility] 05/15/2025 09:46:49 05/14/20 25 [facility] Therapy Treatment Form completed [facility] - [facility] 05/14/2025 14:06:43 05/13/20 25 [facility] Therapy Treatment Form completed [facility] - [facility] 05/13/2025 14:14:00 05/12/20 25 [facility] Therapy Treatment Form completed [facility] - [facility] 05/12/2025 14:06:32 05/09/20 25 [facility] Therapy Treatment Form completed [facility] - [facility] 05/09/2025 14:20:41 05/08/20 25 [facility] Therapy Treatment Form completed [facility] - [facility] 05/08/2025 14:16:34 05/07/20 25 [facility] Therapy Treatment Form completed [facility] - [facility] 05/07/2025 14:34:11 05/06/20 25 [facility] Therapy Treatment Form completed [facility] - [facility] 05/06/2025 14:33:30 05/05/20 25 [facility] Therapy Treatment Form completed [facility] - [facility] 05/05/2025 14:39:41 05/02/20 25 [facility] Therapy Treatment Form completed [facility] - [facility] 05/02/2025 14:38:10 05/01/20 25 [facility] Therapy Treatment Form completed [facility] - [facility] 05/01/2025 14:30:47 04/30/20 25 [facility] Therapy Treatment Form completed [facility] - [facility] 04/30/2025 14:50:00 04/29/20 25 [facility] 04/29/2025 15:42:38 04/28/20 25 [facility] Therapy Treatment Form completed [facility] 04/28/2025 13:47:28 04/25/20 25 [facility] Therapy Treatment Form completed [facility] 04/25/2025 14:24:24 04/24/20 25 [facility] Therapy Treatment Form completed Zuleyka Beyden [place] - [facility] 04/24/2025 14:37:59 04/23/20 25 [facility] Therapy Treatment Form completed [facility] - [facility] 04/23/2025 13:52:55 04/22/20 25 [facility] Therapy Treatment Form completed [facility] 04/22/2025 14:27:44 04/21/20 25 [facility] Therapy Treatment Form completed [facility] 04/21/2025 14:09:03 04/18/20 25 [facility] Therapy Treatment Form completed [facility] - [facility] 04/18/2025 14:22:52 04/17/20 25 [facility] Therapy Treatment Form completed [facility] - [facility] 04/17/2025 14:14:34 04/16/20 25 [facility] Therapy Treatment Form completed [facility] - [facility] 04/16/2025 14:24:52 04/15/20 25 [facility] Therapy Treatment Form completed [facility] 04/15/2025 14:43:45 04/14/20 25 [facility] Therapy Treatment Form completed [facility] 04/14/2025 14:39:53 04/11/20 25 [facility] Therapy Treatment Form completed [facility] - [facility] 04/11/2025 14:38:24 04/10/20 25 [facility] Therapy Treatment Form completed [facility] - [facility] 04/10/2025 14:35:50 04/08/20 25 [facility] Therapy Treatment Form completed [facility] - [facility] 04/08/2025 14:29:12 04/07/20 25 [facility] Therapy Treatment Form completed Nahomi Karena [place] - [facility] 04/07/2025 11:54:59 04/06/20 25 [facility] Therapy Treatment Form completed Nahomi ArielaClarae [place] - [facility] 04/06/2025 12:08:17 04/05/20 25 [facility] Therapy Treatment Form completed Zuleyka Andrew [place] - [facility] 04/05/2025 11:59:40 04/04/20 25 [facility] Therapy Treatment Form completed Zuleyka Andrew [place] - [facility] 04/04/2025 17:25:52 04/03/20 25 [facility] Therapy Treatment Form completed Mariano Farley [place] - [facility] 04/03/2025 18:06:39 04/03/20 25 Wound completed Shona THAKKAR - [facility] 04/03/2025 13:47:21 03/13/20 24 Knee Replacement completed Shona THAKKAR - [facility] 04/03/2025 13:56:18 04/13/20 23 coronary artery bypass grafts x 4 completed Shona THAKKAR - [facility] 04/03/2025 13:54:46 [...] 04/03/2025 13:57:12 11/13/18 92 section completed Shona Napoleon THAKKAR - [facility] 04/03/2025 13:57:07 11/13/18 84 appendectomy completed Shona THAKKAR [facility] 04/03/2025 13:57:28 11/13/18 77 tonsillectomy and adenoidectomy completed Shona Bender ARIANE - [facility] 04/03/2025 13:57:37 Imaging [...] oximetry Heart rate Respiratory rate Body temperature Systolic And Diastolic Systolic And Diastolic Provider Name and Address Organization Details Last Updated DateTime 5 82 /min 16 /min 97.2 [degF] 95 % 95 % 78 /min 16 /min 97.5 [degF] 132/98 mm[Hg] 155/98 mm[Hg] [facility] 5 14:13:45 Social History None recorded. Functional Status None [...] SNOMED-CT Code Diagnosis ICD10 Code Diagnosis Note [id number] Mariano Farley MD Main Office [address] [place] [address] 04/14/2025 12:22:08 04/14/2025 17:08:51 [id number] Mariano Farley MD Main Office [address] [place] [address] 04/15/2025 12:29:05 04/15/2025 18:07:29 [id number] Mariano Farley MD Main Office [address] [place] [address] 04/16/2025 12:09:34 04/16/2025 16:28:25 [id number] Mariano Farley MD Main Office [address] [place] [address] 04/17/2025 12:00:06 04/17/2025 15:57:18 [id number] Mariano Farley MD Main Office [address] [place] [address] 04/18/2025 12:10:37 04/18/2025 17:06:48 [id number] Mariano Farley MD Main Office [address] [place] [address] 04/21/2025 11:56:08 04/21/2025 16:04:26 [id number] Mariano Farley MD Main Office [address] [place] [address] 04/22/2025 11:58:46 04/22/2025 14:50:54 [id number] Mariano Farley MD Main Office [address] [place] [address] 04/23/2025 11:38:35 04/23/2025 14:47:00 [id number] Mariano Farley MD Main Office [address] [place] [address] 04/24/2025 12:20:48 04/24/2025 15:34:39 [id number] Mariano Farley MD Main Office [address] [place] [address] 04/25/2025 12:14:52 04/30/2025 15:40:51 [id number] Mariano Farley MD Main Office [address] [place] [address] 04/28/2025 11:33:32 05/01/2025 08:04:21 [id number] Mariano Farley MD Main Office [address] [place] [address] 04/29/2025 13:00:52 05/01/2025 08:57:14 [id number] Mariano Farley MD Main Office [address] [place] [address] 04/30/2025 12:43:07 05/01/2025 09:26:34 [id number] Mariano Farley MD Main Office [address] [place] [address] 05/01/2025 12:24:55 05/01/2025 15:28:20 [id number] Mariano Farley MD Main Office [address] [place] [address] 05/02/2025 12:29:37 05/05/2025 01:36:37 [id number] Mariano Farley MD Main Office [address] [place] [address] 05/05/2025 12:35:08 05/05/2025 15:28:24 [id number] Mariano Farley MD Main Office [address] [place] [address] 05/06/2025 12:22:35 05/06/2025 17:17:12 [id number] Mariano Farley MD Main Office [address] [place] [address] 05/07/2025 12:27:25 05/07/2025 14:53:23 [id number] Mariano Farley MD Main Office [address] [place] [address] 05/08/2025 12:04:54 05/08/2025 15:52:07 [id number] Mariano Farley MD Main Office [address] [place] [address] 05/09/2025 12:17:15 05/09/2025 17:22:51 [id number] Mariano Farley MD Main Office [address] [place] [address] 05/12/2025 12:05:21 05/12/2025 19:44:55 [id number] Mariano Farley MD Main Office [address] [place] [address] 05/13/2025 11:43:11 05/13/2025 17:35:49 Health Concerns Section Related Observation LastModified by Organization Detai ls LastModified Time None Recorded Concern Status LastModified by Organization Details LastModified Time None Recorded Payers Encounter Date Sequence Insurance Name Policy Number Policy Gregorio Covered Member ID Gregorio Member ID Guarantor Name 05/13/2025 1 [id number] Zehra Sanor [id number] Zehra Shepherd OBGyn Episode No OBEpisode recorded.
--- OUTSIDE RECORDS SUMMARY | 2025-06-01 10:55 | XMS_ITS | Continuity of Care Document ---
Author Organization [place] - [facility], Main Office Address [address] [place] [address] Care Team Providers Care Language Path Name Role Phone JENNIFER MCCORD Primary Care Provider [phone] Assessment No assessment recorded. Plan of Treatment [...] Modified By Organization Details Last Modified Time 05/14/2025 [id number] BACKGROUND 59 y/o female diabetic with moderately [...] MD ____ ____ Session notes Today's date: 14May2025 Session # 31 of 40 planed Next planned HBOT: 14May2025 [...] session uneventfully. Tomorrow she returns to her split leather department supervisor for follow up. NATHAN DONIS 28May - not here due to conflicting medical appointment. NATHAN DONIS 29May - Cleared for HBOT this date and completed full session without problem. NATHAN DONIS 30May - Found safe for HBOT this date and completed full session without problem. She has also been back to see her Acquisitions Editor, Dr Catherine Weathers, who Ms Shepherd states was pleased with progress. NATHAN DONIS 02Jun - Patient cleared for HBOT today. VS stable. FSBG within range. Patient completed full session with no problem. Lg Agudelo APRN 03Jun - We received last week's note from her split leather department supervisor and Dr Weathers expressed satisfaction with progress. [...] full session with no problem. Lg Agudelo FEED RESEARCH TECHNICIAN 10Jun - Patient cleared for HBOT today. [...] full session with no problem. Lg Agudelo FEED RESEARCH TECHNICIAN 19Jun - Patient deemed safe for HBOT today. VS stable. FSBG within range. Patient completed full session with no problem. Lg Agudelo APRN 20Jun - Arrived today without knee scooter; her split leather department supervisor has advised can do without. Cleared for [...] session with no problem. Julio Cesar.Francisco AndersonMagnus FEED RESEARCH TECHNICIAN 25Jun - Patient cleared for HBOT today. VS stable. FSBG within range. Patient completed full session with no problem. Lg [place] FEED RESEARCH TECHNICIAN 26Jun - Patient cleared for HBOT today. VS stable. FSBG within range. Patient completed full session with no problem. Lg [place] FEED RESEARCH TECHNICIAN 27Jun - Found safe for HBOT this [...] date and completed full session without complaint. [facility] [email or web address] Not available 05/14/2025 19:59:00 Reason for Referral None Reported. Procedures Surgical History Date Name Laterality Status Provider Name and Address Organization Details Recorded Time 05/27/20 25 [facility] Therapy Treatment Form completed [facility] 05/27/2025 09:45:15 05/26/20 25 [facility] Therapy Treatment Form completed [facility] 05/26/2025 09:41:49 05/23/20 25 [facility] Therapy Treatment Form completed [facility] - [facility] 05/23/2025 09:53:41 05/22/20 25 [facility] Therapy Treatment Form completed [facility] 05/22/2025 09:49:19 05/21/20 25 [facility] Therapy Treatment Form completed [facility] 05/21/2025 09:56:08 05/20/20 25 [facility] Therapy Treatment Form completed [facility] - [facility] 05/20/2025 09:41:29 05/19/20 25 [facility] Therapy Treatment Form completed [facility] 05/19/2025 09:45:34 05/16/20 25 [facility] Therapy Treatment Form completed Ngozi sharp [place] - [facility] 05/16/2025 09:41:57 05/15/20 25 [facility] Therapy Treatment Form completed [facility] 05/15/2025 09:46:49 05/14/20 25 [facility] Therapy Treatment Form completed [facility] 05/14/2025 14:06:43 05/13/20 25 [facility] Therapy Treatment Form completed [facility] 05/13/2025 14:14:00 05/12/20 25 [facility] Therapy Treatment Form completed [facility] 05/12/2025 14:06:32 05/09/20 25 [facility] Therapy Treatment Form completed [facility] 05/09/2025 14:20:41 05/08/20 25 [facility] Therapy Treatment Form completed [facility] 05/08/2025 14:16:34 05/07/20 25 [facility] Therapy Treatment Form completed [facility] 05/07/2025 14:34:11 05/06/20 25 [facility] Therapy Treatment Form completed [facility] 05/06/2025 14:33:30 05/05/20 25 [facility] Therapy Treatment Form completed [facility] 05/05/2025 14:39:41 05/02/20 25 [facility] Therapy Treatment Form completed [facility] 05/02/2025 14:38:10 05/01/20 25 [facility] Therapy Treatment Form completed [facility] 05/01/2025 14:30:47 04/30/20 25 [facility] Therapy Treatment Form completed [facility] 04/30/2025 14:50:00 04/29/20 25 [facility] Therapy Treatment Form completed Zuleyka Andrew [place] - [facility] 04/29/2025 15:42:38 04/28/20 25 [facility] Therapy Treatment Form completed [facility] 04/28/2025 13:47:28 04/25/20 25 [facility] Therapy Treatment Form completed [facility] 04/25/2025 14:24:24 04/24/20 25 [facility] Therapy Treatment Form completed Zuleyka Morales [place] - [facility] 04/24/2025 14:37:59 04/23/20 25 [facility] Therapy Treatment Form completed Ngozi gonzalez [place] - [facility] 04/23/2025 13:52:55 04/22/20 25 [facility] Therapy Treatment Form completed [facility] 04/22/2025 14:27:44 04/21/20 25 [facility] Therapy Treatment Form completed Ngozi [facility] - [facility] 04/21/2025 14:09:03 04/18/20 25 [facility] Therapy Treatment Form completed [facility] 04/18/2025 14:22:52 04/17/20 25 [facility] Therapy Treatment Form completed [facility] 04/17/2025 14:14:34 04/16/20 25 [facility] Therapy Treatment Form completed [facility] 04/16/2025 14:24:52 04/15/20 25 [facility] Therapy Treatment Form completed Ngozi carlos [place] - [facility] 04/15/2025 14:43:45 04/14/20 25 [facility] Therapy Treatment Form completed [facility] 04/14/2025 14:39:53 04/11/20 25 [facility] Therapy Treatment Form completed [facility] 04/11/2025 14:38:24 04/10/20 25 [facility] Therapy Treatment Form completed [facility] 04/10/2025 14:35:50 04/08/20 25 [facility] Therapy Treatment Form completed Ngozi carlos [place] - [facility] 04/08/2025 14:29:12 04/07/20 25 [facility] Therapy Treatment Form completed Nahomi Thurston [place] - [facility] 04/07/2025 11:54:59 04/06/20 25 [facility] Therapy Treatment Form completed Nahomi [place] - [facility] 04/06/2025 12:08:17 04/05/20 25 [facility] Therapy Treatment Form completed Zuleyka Morales [place] - [facility] 04/05/2025 11:59:40 04/04/20 25 [facility] Therapy Treatment Form completed Zuleyka Morales [place] - [facility] 04/04/2025 17:25:52 04/03/20 [...] Address Organization Details Last Updated DateTime 5 85 /min 16 /min 97 [degF] 96 % 96 % 68 /min 16 /min 97.7 [degF] 100 % 100 % 137/79 mm[Hg] 129/80 mm[Hg] [facility] 5 14:07:21 Social History None recorded. Functional Status None recorded. Mental Status None recorded. Family History Nothing Reported. Medical History Condition Response Allergies/Hayfever Y Heart Problems Y Coronary Artery Disease N Gout N Blood Diseases N Ear or Hearing Problems N Hyperthyroidism N Breast Cancer N Thyroid Problems N Hypothyroidism N COPD N Depression N Lung Disease N GI [...] [address] [place] [address] 04/14/2025 12:22:08 04/14/2025 17:08:51 [id number] Mariano Farley MD Main Office [address] [place] [address] 04/15/2025 12:29:05 04/15/2025 18:07:29 [id number] Mariano Farley MD Main Office [address] [place] [address] 04/16/2025 12:09:34 04/16/2025 16:28:25 [id number] Mariano Farley MD Main Office [address] [place] [address] 04/17/2025 12:00:06 04/17/2025 15:57:18 [id number] Mariano Farley MD Main Office [address] [place] [address] 04/18/2025 12:10:37 04/18/2025 17:06:48 [id number] Mariano Farley MD Main Office [address] [place] [address] 04/21/2025 11:56:08 04/21/2025 16:04:26 [id number] Mariano Farley MD Main Office [address] [place] [address] 04/22/2025 11:58:46 04/22/2025 14:50:54 [id number] Mariano Farley MD Main Office [address] [place] [address] 04/23/2025 11:38:35 04/23/2025 14:47:00 [id number] Mariano Farley MD Main Office [address] [place] [address] 04/24/2025 12:20:48 04/24/2025 15:34:39 [id number] Mariano Farley MD Main Office [address] [place] [address] 04/25/2025 12:14:52 04/30/2025 15:40:51 [facility] Mariano Farley MD Main Office [address] [place] [address] 04/28/2025 11:33:32 05/01/2025 08:04:21 [id number] Mariano Farley MD Main Office [address] [place] [address] 04/29/2025 13:00:52 05/01/2025 08:57:14 [id number] Mariano Farley MD Main Office [address] [place] [address] 04/30/2025 12:43:07 05/01/2025 09:26:34 [id number] Mariano Farley MD Main Office [address] [place] [address] 05/01/2025 12:24:55 05/01/2025 15:28:20 [id number] Mariano Farley MD Main Office [address] [place] [address] 05/02/2025 12:29:37 05/05/2025 01:36:37 [id number] Mariano Farley MD Main Office [address] [place] [address] 05/05/2025 12:35:08 05/05/2025 15:28:24 [id number] Mariano Farley MD Main Office [address] [place] [address] 05/06/2025 12:22:35 05/06/2025 17:17:12 [id number] Mariano Farley MD Main Office [address] [place] [address] 05/07/2025 12:27:25 05/07/2025 14:53:23 [id number] Mariano Farley MD Main Office [address] [place] [address] 05/08/2025 12:04:54 05/08/2025 15:52:07 [id number] Mariano Farley MD Main Office [address] [place] [address] 05/09/2025 12:17:15 05/09/2025 17:22:51 [id number] Mariano Farley MD Main Office [address] [place] [address] 05/12/2025 12:05:21 05/12/2025 19:44:55 [id number] Mariano Farley MD Main Office [address] [place] [address] 05/13/2025 11:43:11 05/13/2025 17:35:49 [id number] Mariano Farley MD Main Office [address] [place] [address] 05/14/2025 12:18:55 05/14/2025 19:59:05 Health Concerns Section Related Observation LastModified by Organization Detai ls LastModified Time None Recorded Concern Status LastModified by Organization Details LastModified Time None Recorded Payers Encounter Date Sequence Insurance Name Policy Number Policy Gregorio Covered Member ID Gregorio Member ID Guarantor Name 05/14/2025 1 [employer] Zehra Sanor [id number] Zehra Shepherd OBGyn Episode No OBEpisode recorded.
--- OUTSIDE RECORDS SUMMARY | 2025-06-01 10:55 | XMS_ITS | Continuity of Care Document ---
Author Organization [place] - [facility], Main Office Address [address] [place] [address] Care Team Providers Care Pediatric Lpn Name Role Phone JENNIFER MCCORD Primary Care [...] Modified By Organization Details Last Modified Time 04/15/2025 4010 BACKGROUND 59 y/o female diabetic with moderately [...] MD ____ ____ Session notes Today's date: 15Apr2025 Session # 10 of 40 planed Next planned HBOT: 16Apr2025 22May - Found safe for HBOT this [...] session uneventfully. Tomorrow she returns to her architectural manager for follow up. NATHAN DONIS 28May - not here due to conflicting medical appointment. NATHAN DONIS 29May - Cleared for HBOT this date and completed full session without problem. NATHAN DONIS 30May - Found safe for HBOT this date and completed full session without problem. She has also been back to see her Confectionery Maker, Dr Catherine Weathers, who Ms Shepherd states was pleased with progress. NATHAN DONIS 02Jun - Patient cleared for HBOT today. VS stable. FSBG within range. Patient completed full session with no problem. Lg Agudelo APRN 03Jun - We received last week's note from her architectural manager and Dr Weathers expressed satisfaction with progress. Case reviewed today and note she has 20 more Sessions authorized. To get more sessions authorized will require unresolved remaining issues which will need to be carefully assessed. [facility] [place] [email or web address] Not available 04/15/2025 18:07:06 Reason for Referral None Reported. Procedures Surgical History Date Name Laterality Status Provider Name and Address Organization Details Recorded Time 05/27/20 25 [facility] Therapy Treatment Form completed [facility] - [facility] 05/27/2025 09:45:15 05/26/20 25 [facility] Therapy Treatment Form completed [facility] 05/26/2025 09:41:49 05/23/20 25 [facility] Therapy Treatment Form completed [facility] 05/23/2025 09:53:41 05/22/20 25 [facility] Therapy Treatment Form completed [facility] 05/22/2025 09:49:19 05/21/20 25 [facility] Therapy Treatment Form completed [facility] - [facility] 05/21/2025 09:56:08 05/20/20 25 [facility] Therapy Treatment Form completed [facility] 05/20/2025 09:41:29 05/19/20 25 [facility] Therapy Treatment Form completed [facility] 05/19/2025 09:45:34 05/16/20 25 [facility] Therapy Treatment Form completed [facility] - [facility] 05/16/2025 09:41:57 05/15/20 25 [facility] Therapy Treatment Form completed [facility] - [facility] 05/15/2025 09:46:49 05/14/20 25 [facility] Therapy Treatment Form completed [facility] - [facility] 05/14/2025 14:06:43 05/13/20 25 [facility] Therapy Treatment Form completed [facility] 05/13/2025 14:14:00 05/12/20 25 [facility] Therapy Treatment Form completed [facility] - [facility] 05/12/2025 14:06:32 05/09/20 25 [facility] Therapy Treatment Form completed [facility] - [facility] 05/09/2025 14:20:41 05/08/20 25 [facility] Therapy Treatment Form completed [facility] - [facility] 05/08/2025 14:16:34 05/07/20 25 [facility] Therapy Treatment Form completed [facility] - [facility] 05/07/2025 14:34:11 05/06/20 25 [facility] Therapy Treatment Form completed [facility] - [facility] 05/06/2025 14:33:30 05/05/20 25 [facility] Therapy Treatment Form completed [facility] - [facility] 05/05/2025 14:39:41 05/02/20 25 [facility] Therapy Treatment Form completed [facility] - [facility] 05/02/2025 14:38:10 05/01/20 25 [facility] Therapy Treatment Form completed [facility] - [facility] 05/01/2025 14:30:47 04/30/20 25 [facility] Therapy Treatment Form completed [facility] 04/30/2025 14:50:00 04/29/20 25 [facility] 04/29/2025 15:42:38 04/28/20 25 [facility] Therapy Treatment Form completed [facility] - [facility] 04/28/2025 13:47:28 04/25/20 25 [facility] Therapy Treatment Form completed [facility] - [facility] 04/25/2025 14:24:24 04/24/20 25 [facility] Therapy Treatment Form completed Zuleyka [facility] - [facility] 04/24/2025 14:37:59 04/23/20 25 [facility] Therapy Treatment Form completed [facility] - [facility] 04/23/2025 13:52:55 04/22/20 25 [facility] Therapy Treatment Form completed [facility] - [facility] 04/22/2025 14:27:44 04/21/20 25 [facility] Therapy Treatment Form completed [facility] - [facility] 04/21/2025 14:09:03 04/18/20 25 [facility] Therapy Treatment Form completed [facility] - [facility] 04/18/2025 14:22:52 04/17/20 25 [facility] Therapy Treatment Form completed [facility] - [facility] 04/17/2025 14:14:34 04/16/20 25 [facility] Therapy Treatment Form completed Ngozi sharp [place] - [facility] 04/16/2025 14:24:52 04/15/20 25 [facility] Therapy Treatment Form completed Ngozi THAKKAR - [facility] 04/15/2025 14:43:45 04/14/20 25 [facility] Therapy Treatment Form completed Ngozi carlos [place] - [facility] 04/14/2025 14:39:53 04/11/20 25 [facility] Therapy Treatment Form completed Ngozi [place] - [facility] 04/11/2025 14:38:24 04/10/20 25 [facility] Therapy Treatment Form completed Ngozi carlos [place] - [facility] 04/10/2025 14:35:50 04/08/20 25 [facility] Therapy Treatment Form completed Ngozi [facility]AKK[place] - [facility] 04/08/2025 14:29:12 04/07/20 25 [facility] Therapy Treatment Form completed Nahomi Roote [place] - [facility] 04/07/2025 11:54:59 04/06/20 25 [facility] Therapy Treatment Form completed Nahomi Roote [place] - [facility] 04/06/2025 12:08:17 04/05/20 25 [facility] Therapy Treatment Form completed Zuleyka Beyden [place] - [facility] 04/05/2025 11:59:40 04/04/20 25 [facility] Therapy Treatment Form completed Zuleyka Andrew [place] - [facility] 04/04/2025 17:25:52 04/03/20 25 [facility] Therapy Treatment Form completed Mariano Farley MD [place] - [facility] 04/03/2025 18:06:39 04/03/20 25 Wound completed Shona Bender [place] - [facility] 04/03/2025 13:47:21 03/13/20 24 Knee Replacement completed Shona THAKAKR - [facility] 04/03/2025 13:56:18 04/13/20 23 coronary artery bypass grafts x 4 completed Shona THAKKAR - [facility] 04/03/2025 13:54:46 12/14/19 23 Gallbladder Surgery completed Shona Bender [place] - [facility] 04/03/2025 13:54:58 [...] Address Organization Details Last Updated DateTime 5 108 /min 16 /min 97.2 [degF] 96 % 96 % 71 /min 16 /min 97.7 [degF] 100 % 100 % 124/72 mm[Hg] 107/68 mm[Hg] [facility] - [facility] 14:44:02 Social History None recorded. Functional Status None recorded. Mental Status None recorded. Family History Nothing Reported. Medical History Condition Response Coronary Artery Disease N Gout N Blood Diseases N Hyperthyroidism N Breast Cancer N Lung Disease N Depression N COPD N Hypothyroidism N Developmental or Behavioral Disorders N Anxiety Disorder N Muscle, Joint, or Bone Problems N Arthritis Y Cancer Y Stroke N Endometriosis N Bladder or Kidney Problems N Liver Disease Y Fibromyalgia N Headaches N Kidney Disease N Allergies/Hayfever Y Heart Problems Y Ear or Hearing Problems N Thyroid Problems N GI Problems N Skin Problems Y Anemia N Diabetes Y Seizures/Epilepsy N AIDS/HIV N Congestive Heart Failure (CHF) N Diverticulitis N Asthma N Heart Disease N Chronic Ear Infections N Hypertension N Osteoporosis N Gynecological HistoryNo gynecological history recorded. Obstetrics History GPAL:G 0 P 0 0 0 0 Past Encounters Encounter ID Performer Location Encounter Start Date Encounter Closed Date Diagnosis/Indication Diagnosis SNOMED-CT Code Diagnosis ICD10 Code Diagnosis Note [id number] Mariano Farley MD Main Office [address] [place] [address] 04/03/2025 13:39:59 04/03/2025 16:50:46 [id number] Mariano Farley MD Main Office [address] [place] [address] 04/03/2025 15:32:51 04/03/2025 18:10:03 [id number] Mariano Farley MD Main Office [address] [place] [address] 04/04/2025 15:39:00 04/08/2025 08:19:46 [id number] Mariano Farley MD Main Office [address] [place] [address] 04/05/2025 10:12:41 04/08/2025 08:22:20 [id number] Mariano Farley MD Main Office [address] [place] [address] 04/06/2025 10:28:04 04/08/2025 08:26:15 [id number] Mariano Farley MD Main Office [address] [place] [address] 04/07/2025 09:45:56 04/08/2025 08:30:09 [id number] Mariano Farley MD Main Office [address] [place] , [place] [address] 04/08/2025 12:11:52 04/08/2025 18:52:34 [id number] Mariano Farley MD Main Office [address] [place] , [place] [address] 04/10/2025 12:15:32 04/11/2025 13:41:15 [id number] Mariano Farley MD Main Office [address] [place] [address] 04/11/2025 12:17:41 04/14/2025 08:14:43 [id number] Mariano Farley MD Main Office [address] [place] , [place] [address] 04/14/2025 12:22:08 04/14/2025 17:08:51 [id number] Mariano Farley MD Main Office [address] [place] [address] 04/15/2025 12:29:05 04/15/2025 18:07:29 Health Concerns Section Related Observation LastModified by Organization Detai ls LastModified Time None Recorded Concern Status LastModified by Organization Details LastModified Time None Recorded Payers Encounter Date Sequence Insurance Name Policy Number Policy Gregorio Covered Member ID Gregorio Member ID Guarantor Name 04/15/2025 1 [employer] Zehra Sanor [id number] Zehra Sanmeseret OBGyn Episode No OBEpisode recorded.
--- OUTSIDE RECORDS SUMMARY | 2025-06-01 10:55 | XMS_ITS | Continuity of Care Document ---
Author Organization [place] - [facility], Main Office Address [address] [place] [address] Care Team Providers Care Golf Course Designer Name Role Phone JENNIFER MCCORD Primary Care Provider [phone] Assessment No assessment recorded. Plan of Treatment [...] Modified By Organization Details Last Modified Time 05/02/2025 4256 BACKGROUND 59 y/o female diabetic with moderately [...] MD ____ ____ Session notes Today's date: 02May2025 Session # 23 of 40 planed Next planned HBOT: 05May2025 22May - Found safe for HBOT this [...] session uneventfully. Tomorrow she returns to her sheep sorter for follow up. NATHAN DONIS 28May - not here due to conflicting medical appointment. NATHAN DONIS 29May - Cleared for HBOT this date and completed full session without problem. NATHAN DONIS 30May - Found safe for HBOT this date and completed full session without problem. She has also been back to see her Railroad Commissioner, Dr Catherine Weathers, who Ms Shepherd states was pleased with progress. NATHAN DONIS 02Jun - Patient cleared for HBOT today. VS stable. FSBG within range. Patient completed full session with no problem. Lg Agudelo APRN 03Jun - We received last week's note from her sheep sorter and Dr Weathers expressed satisfaction with progress. [...] full session with no problem. Lg Agudelo AUTO RADIO MECHANIC 10Jun - Patient cleared for HBOT today. [...] session with no problem. Lg Agudelo APRN 19Jun - Patient deemed safe for HBOT today. VS stable. FSBG within range. Patient completed full session with no problem. Lg Agudelo APRN 20Jun - Arrived today without knee scooter; her sheep sorter has advised can do without. Cleared for HBOT this date and completed full session without problem. Jennifer DONIS [email or web address] Not available 05/05/2025 01:36:33 Reason for Referral None Reported. Procedures Surgical History Date Name Laterality Status Provider Name and Address Organization Details Recorded Time 05/27/20 25 [facility] Therapy Treatment Form completed [facility] - [facility] 05/27/2025 09:45:15 05/26/20 25 [facility] Therapy Treatment Form completed [facility] - [facility] 05/26/2025 09:41:49 05/23/20 25 [facility] Therapy Treatment Form completed [facility] - [facility] 05/23/2025 09:53:41 05/22/20 25 [facility] Therapy Treatment Form completed [facility] - [facility] 05/22/2025 09:49:19 05/21/20 25 [facility] Therapy Treatment Form completed [facility] 05/21/2025 09:56:08 05/20/20 25 [facility] Therapy Treatment Form completed [facility] - [facility] 05/20/2025 09:41:29 05/19/20 25 [facility] Therapy Treatment Form completed [facility] 05/19/2025 09:45:34 05/16/20 25 [facility] Therapy Treatment Form completed [facility] 05/16/2025 09:41:57 05/15/20 25 [facility] Therapy Treatment Form completed [facility] 05/15/2025 09:46:49 05/14/20 25 [facility] Therapy Treatment Form completed [facility] 05/14/2025 14:06:43 05/13/20 25 [facility] Therapy Treatment Form completed [facility] 05/13/2025 14:14:00 05/12/20 25 [facility] Therapy Treatment Form completed [facility] 05/12/2025 14:06:32 05/09/20 25 [facility] Therapy Treatment Form completed [facility] 05/09/2025 14:20:41 05/08/20 25 [facility] Therapy Treatment Form completed [facility] 05/08/2025 14:16:34 05/07/20 25 [facility] Therapy Treatment Form completed [facility] 05/07/2025 14:34:11 05/06/20 25 [facility] Therapy Treatment Form completed [facility] 05/06/2025 14:33:30 05/05/20 25 [facility] Therapy Treatment Form completed [facility] 05/05/2025 14:39:41 05/02/20 25 [facility] Therapy Treatment Form completed [facility] 05/02/2025 14:38:10 05/01/20 25 [facility] Therapy Treatment Form completed [facility] 05/01/2025 14:30:47 04/30/20 25 [facility] Therapy Treatment Form completed [facility] 04/30/2025 14:50:00 04/29/20 25 [facility] 04/29/2025 15:42:38 04/28/20 25 [facility] Therapy Treatment Form completed [facility] 04/28/2025 13:47:28 04/25/20 25 [facility] Therapy Treatment Form completed [facility] 04/25/2025 14:24:24 04/24/20 25 [facility] Therapy Treatment Form completed Zuleyka Morales [place] - [facility] 04/24/2025 14:37:59 04/23/20 25 [facility] Therapy Treatment Form completed [facility] 04/23/2025 13:52:55 04/22/20 25 [facility] Therapy Treatment Form completed [facility] 04/22/2025 14:27:44 04/21/20 25 [facility] Therapy Treatment Form completed [facility] 04/21/2025 14:09:03 04/18/20 25 [facility] Therapy Treatment Form completed [facility] 04/18/2025 14:22:52 04/17/20 25 [facility] Therapy Treatment Form completed [facility] 04/17/2025 14:14:34 04/16/20 25 [facility] Therapy Treatment Form completed [facility] 04/16/2025 14:24:52 04/15/20 25 [facility] Therapy Treatment Form completed [facility] 04/15/2025 14:43:45 04/14/20 25 [facility] Therapy Treatment Form completed [facility] 04/14/2025 14:39:53 04/11/20 25 [facility] Therapy Treatment Form completed Ngozi gonzalez [place] - [facility] 04/11/2025 14:38:24 04/10/20 25 [facility] Therapy Treatment Form completed Ngozi gonzalez [place] - [facility] 04/10/2025 14:35:50 04/08/20 [...] Therapy Treatment Form completed Mariano Farley MD [place] - [facility] 04/03/2025 18:06:39 04/03/20 [...] Address Organization Details Last Updated DateTime 5 89 /min 16 /min 97.7 [degF] 99 % 99 % 73 /min 16 /min 97.7 [degF] 99 % 99 % 125/79 mm[Hg] 116/76 mm[Hg] Ngozi gonzalez [place] - [facility] 14:38:24 Date Recorded Heart rate Respiratory rate Body temperature Oxygen saturation Oxygen saturation in Arterial blood by Pulse oximetry Heart rate Respiratory rate Body temperature Oxygen saturation Oxygen saturation in Arterial blood by Pulse oximetry Systolic And Diastolic Systolic And Diastolic Provider Name and Address Organization Details Last Updated DateTime 91 /min 16 /min 97.7 [degF] 98 % 98 % 79 /min 16 /min 97.5 [degF] 100 % 100 % 106/70 mm[Hg] 99/68 mm[Hg] Ngozi THAKK[facility] - [facility] 14:39:59 Social History None recorded. Functional Status None [...] Mariano Farley MD Main Office [address] [address] 04/03/2025 13:39:59 04/03/2025 16:50:46 3890 Mariano Farley MD Main Office [address] [address] 04/03/2025 15:32:51 04/03/2025 18:10:03 3904 Mariano Farley MD Main Office [address] [address] 04/04/2025 15:39:00 04/08/2025 08:19:46 390Chad Farley MD Main Office [address] [place] [address] 04/05/2025 10:12:41 04/08/2025 08:22:20 3912 Mariano Farley MD Main Office [address] [place] [address] 04/06/2025 10:28:04 04/08/2025 08:26:15 3913 Mariano Farley MD Main Office [address] [place] [address] 04/07/2025 09:45:56 04/08/2025 08:30:09 3923 Mariano Farley MD Main Office [address] [place] [address] 04/08/2025 12:11:52 04/08/2025 18:52:34 [id number] Mariano Farley MD Main Office [address] [place] [address] 04/10/2025 12:15:32 04/11/2025 13:41:15 3974 Mariano Farley MD Main Office [address] [place] [address] 04/11/2025 12:17:41 04/14/2025 08:14:43 3993 Mariano Farley MD Main Office [address] [place] [address] 04/14/2025 12:22:08 04/14/2025 17:08:51 4010 Mariano Farley MD Main Office [address] [place] [address] 04/15/2025 12:29:05 04/15/2025 18:07:29 4030 Mariano Farley MD Main Office [address] [place] [address] 04/16/2025 12:09:34 04/16/2025 16:28:25 4044 Mariano Farley MD Main Office [address] [place] [address] 04/17/2025 12:00:06 04/17/2025 15:57:18 4073 Mariano Farley MD Main Office [address] [place] [address] 04/18/2025 12:10:37 04/18/2025 17:06:48 4091 Mariano Farley MD Main Office [address] [place] [address] 04/21/2025 11:56:08 04/21/2025 16:04:26 4113 Mariano Farley MD Main Office [address] [place] [address] 04/22/2025 11:58:46 04/22/2025 14:50:54 4131 Mariano Farley MD Main Office [address] [place] [address] 04/23/2025 11:38:35 04/23/2025 14:47:00 4151 Mariano Farley MD Main Office [address] [place] [address] 04/24/2025 12:20:48 04/24/2025 15:34:39 4165 Mariano Farley MD Main Office [address] [place] [address] 04/25/2025 12:14:52 04/30/2025 15:40:51 4183 Mariano Farley MD Main Office [address] [place] [address] 04/28/2025 11:33:32 05/01/2025 08:04:21 4197 Mariano Farley MD Main Office [address] [place] [address] 04/29/2025 13:00:52 05/01/2025 08:57:14 4218 Mariano Farley MD Main Office [address] [place] [address] 04/30/2025 12:43:07 05/01/2025 09:26:34 4235 Mariano Farley MD Main Office [address] [place] [address] 05/01/2025 12:24:55 05/01/2025 15:28:20 4256 Mariano Farley MD Main Office [address] [place] [address] 05/02/2025 12:29:37 05/05/2025 01:36:37 Health Concerns Section Related Observation LastModified by Organization Detai ls LastModified Time None Recorded Concern Status LastModified by Organization Details LastModified Time None Recorded Payers Encounter Date Sequence Insurance Name Policy Number Policy Gregorio Covered Member ID Gregorio Member ID Guarantor Name 05/02/2025 1 [facility] Zehra Aguayoor [id number] Zehra Shepherd OBGyn Episode No OBEpisode recorded.
--- OUTSIDE RECORDS SUMMARY | 2025-06-01 10:55 | XMS_ITS | Referral Summary ---
Author Organization [employer] ([place] Address [address] [place] [address] Care Team Providers Care Stock Associate Name Role Phone Amalia Walter Primary Care Provider [phone] Allergies Active Allergy Reactions Criticality Noted Date [...] Date Tien rded Speak language other than Telugu at home Not on file 03/12/2024 Want [...] on file Medical Devices Implanted Type Area Safety Tech Device Identifier Shelf Expiration Date Model / Serial / Lot Psn Lizzy Spkd 0 Sz F Oss L [id number] 01 - [id number] Implanted:Qt y: 1 on 04/17/2024 at [facility] [employer] Left: Knee RUPERT:RUPERT [id number] 07/07/2033 42-5350-0 75-01 / / [id number] Psn Fem Cr Pps Cocr Nrw Sz9 L [id number] 01 - [id number] Implanted:Qt y: 1 on 04/17/2024 at [facility] [employer] Left: Knee RUPERT:RUPERT [place] [id number] 02/14/2033 42-5080-0 66- [id number] Psn Art Surf 10mm 8-/E-F Lt [id number] 10 - [id number] Implanted:Qt y: 1 on 04/17/2024 at [facility] [employer] Left: Knee RUPERT:RUPERT [place] [id number] 12/20/2028 42-5121-0 06-22 [id number] Procedures Procedure Name Priority Date/Time Associated Diagnosis Comments HEMOGLOBIN A1C Routine 04/09/2024 2:56 PM EDT Preop testing from Last 3 Months or Most Recently Relevant to Health Maintenance Results * Hemoglobin A1c (04/09/2024 2:56 PM EDT) Hemoglobin A1C 6.5 % 04/09/2024 6:57 PM EDT [facility] Comment: Hemoglobin A1C levels are related to mean glucose during the preceding 2-3 months. Less than 7% demonstrates glycemic control in diabetic patients. Hemoglobin AlC % Suggested Diagnosis > or = 6.5 Diabetic 5.7 - 6.4 Prediabetic <5.7 Non-diabetic eAVG Glucose 139.85 mg/dL 04/09/2024 6:57 PM EDT [facility] Blood Venipuncture / Unknown 04/09/2024 2:56 PM EDT 04/09/2024 4:30 PM EDT Nicholas Castro MD LAB BLOOD ORDERABLES Final Result [facility] [address] [phone] from Last 3 Months or Most Recently Relevant to Health Maintenance Insurance BLUE CROSS/BLUE SHIELD Advance Directives For more information, please contact: [phone] * Full Code (Latest Code Status on File) Date Activated Date Inactivated Comments 04/17/2024 1:15 PM 04/18/2024 2:19 PM * Full Code Date Activated Date Inactivated Comments 04/17/2024 7:55 AM 04/17/2024 1:15 PM Care Teams Stock Associate Relationship Specialty Start Date End Date Amalia Walter [address] [place] [address] PCP - General 04/09/24
--- OUTSIDE RECORDS SUMMARY | 2025-06-01 10:55 | XMS_ITS | Continuity of Care Document ---
Author Organization [place] - [facility], Main Office Address [address] [place] [address] Care Team Providers Care Cvir Tech Name Role Phone JENNIFER MCCORD Primary Care Provider [phone] Assessment No assessment recorded. Plan of Treatment [...] Modified By Organization Details Last Modified Time 04/03/2025 3890 BACKGROUND 59 y/o female diabetic with moderately [...] MD ____ ____ Session notes Today's date: 03Apr2025 Session # 1 of 40 planed Next planned HBOT: 04Apr2025 22May - Found safe for HBOT this [...] changes and good BP and glucose control. [facility] [place] woodson Not available 04/03/2025 18:09:59 Reason for Referral None Reported. Procedures Surgical History Date Name Laterality Status Provider Name and Address Organization Details Recorded Time 05/27/20 25 [facility] Therapy Treatment Form completed [facility] - [facility] 05/27/2025 09:45:15 05/26/20 25 [facility] Therapy Treatment Form completed [facility] - [facility] 05/26/2025 09:41:49 05/23/20 25 [facility] Therapy Treatment Form completed [facility] - [facility] 05/23/2025 09:53:41 05/22/20 25 [facility] Therapy Treatment Form completed [facility] - [facility] 05/22/2025 09:49:19 05/21/20 25 [facility] Therapy Treatment Form completed [facility] - [facility] 05/21/2025 09:56:08 05/20/20 25 [facility] Therapy Treatment Form completed [facility] - [facility] 05/20/2025 09:41:29 05/19/20 25 [facility] Therapy Treatment Form completed [facility] - [facility] 05/19/2025 09:45:34 05/16/20 25 [facility] Therapy Treatment Form completed [facility] - [facility] 05/16/2025 09:41:57 05/15/20 25 [facility] Therapy Treatment Form completed [facility] - [facility] 05/15/2025 09:46:49 05/14/20 25 [facility] Therapy Treatment Form completed [facility] - [facility] 05/14/2025 14:06:43 05/13/20 25 [facility] Therapy Treatment Form completed [facility] - [facility] 05/13/2025 14:14:00 05/12/20 25 [facility] Therapy Treatment Form completed [facility] 05/12/2025 14:06:32 05/09/20 25 [facility] Therapy Treatment Form completed [facility] - [facility] 05/09/2025 14:20:41 05/08/20 25 [facility] Therapy Treatment Form completed [facility] - [facility] 05/08/2025 14:16:34 05/07/20 25 [facility] Therapy Treatment Form completed [facility] - [facility] 05/07/2025 14:34:11 05/06/20 25 [facility] Therapy Treatment Form completed [facility] 05/06/2025 14:33:30 05/05/20 25 [facility] Therapy Treatment Form completed [facility] 05/05/2025 14:39:41 05/02/20 25 [facility] Therapy Treatment Form completed [facility] 05/02/2025 14:38:10 05/01/20 25 [facility] Therapy Treatment Form completed [facility] 05/01/2025 14:30:47 04/30/20 25 [facility] Therapy Treatment Form completed [facility] - [facility] 04/30/2025 14:50:00 04/29/20 25 [facility] 04/29/2025 15:42:38 04/28/20 25 [facility] Therapy Treatment Form completed [facility] - [facility] 04/28/2025 13:47:28 04/25/20 25 [facility] Therapy Treatment Form completed [facility] 04/25/2025 14:24:24 04/24/20 25 [facility] 04/24/2025 14:37:59 04/23/20 25 [facility] Therapy Treatment Form completed [facility] 04/23/2025 13:52:55 04/22/20 25 [facility] Therapy Treatment Form completed [facility] 04/22/2025 14:27:44 04/21/20 25 [facility] Therapy Treatment Form completed [facility] 04/21/2025 14:09:03 04/18/20 25 [facility] Therapy Treatment Form completed [facility] 04/18/2025 14:22:52 04/17/20 25 [facility] Therapy Treatment Form completed [facility] 04/17/2025 14:14:34 04/16/20 25 [facility] Therapy Treatment Form completed [facility] 04/16/2025 14:24:52 04/15/20 25 [facility] Therapy Treatment Form completed [facility] 04/15/2025 14:43:45 04/14/20 25 [facility] Therapy Treatment Form completed [facility] 04/14/2025 14:39:53 04/11/20 25 [facility] Therapy Treatment Form completed [facility] 04/11/2025 14:38:24 04/10/20 25 [facility] Therapy Treatment Form completed [facility] 04/10/2025 14:35:50 04/08/20 25 [facility] Therapy Treatment Form completed [facility] 04/08/2025 14:29:12 04/07/20 25 [facility] Therapy Treatment Form completed Nahomi Thurston [place] - [facility] 04/07/2025 11:54:59 04/06/20 25 [facility] Therapy Treatment Form completed Nahomi Roote [place] - [facility] 04/06/2025 12:08:17 04/05/20 25 [facility] Therapy Treatment Form completed Zuleyka Morales [place] - [facility] 04/05/2025 11:59:40 04/04/20 25 [facility] Therapy Treatment Form completed Zuleyka Beyden [place] - [facility] 04/04/2025 17:25:52 04/03/20 [...] 23 biopsy of skin completed Shona THAKKAR [facility] 04/03/2025 14:10:49 11/13/19 21 release of trigger finger completed Shona THAKKAR - [facility] 04/03/2025 13:55:11 11/13/19 21 hammer toe operation completed Shona THAKKAR [facility] 04/03/2025 13:55:27 11/13/19 19 procedure on shoulder completed Shona THAKKAR [facility] 04/03/2025 13:55:44 11/13/19 17 [...] 11/13/18 77 tonsillectomy and adenoidectomy completed Shona Napoleon THAKKAR [facility] 04/03/2025 13:57:37 Imaging Results [...] blood by Pulse oximetry Systolic And Diastolic Provider Name and Address Organization Details Last Updated DateTime 5 68 /min 16 /min 97.5 [degF] 95 % 95 % 119/70 mm[Hg] Shona Bender [place] - [facility] 5 14:10:16 Date Recorded Heart rate Respiratory rate Body temperature Oxygen saturation Oxygen saturation in Arterial blood by Pulse oximetry Heart rate Respiratory rate Body temperature Oxygen saturation Oxygen saturation in Arterial blood by Pulse oximetry Systolic And Diastolic Systolic And Diastolic Provider Name and Address Organization Details Last Updated DateTime 5 65 /min 16 /min 97.7 [degF] 97 % 97 % 70 /min 16 /min 97.3 [degF] 100 % 100 % 126/75 mm[Hg] 107/71 mm[Hg] Ngozi carlos [place] - [facility] 5 17:41:01 Social History None recorded. Functional Status None [...] MD Main Office [address] [place] [address] 04/03/2025 13:39:59 04/03/2025 16:50:46 3890 Mariano Farley MD Main Office [address] [place] [address] 04/03/2025 15:32:51 04/03/2025 18:10:03 Health Concerns Section Related Observation LastModified by Organization Detai ls LastModified Time None Recorded Concern Status LastModified by Organization Details LastModified Time None Recorded Payers Encounter Date Sequence Insurance Name Policy Number Policy Gregorio Covered Member ID Gregorio Member ID Guarantor Name 04/03/2025 1 [place] Zehra Joao [id number] Zehra Joao Notes Date Note Type Note Provider Name and Address Organization Details Recorded Time 04/03/2025 text/html 59 y/o female 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 Earlier this year, it closed with tissue dressing but by mid February site had abscessed requiring surgical opening and debridement. initially wound was improving but early March a steer stepped on her foot causing some disruption to suture line. By 13May a major abscess with signs of systemic sepsis had formed for which she presented to hospital. Dr Weathers saw her there 26 March and suggested 2d Right toe amputation which was done. Pre-Op CT did not identify osteomyelitis. No immediate complications of surgery, patient was discharged with close follow-up. Yesterday she presented back to Dr Weathers who noted perforation of suture line at its distal apex along with sero-sanguinous drainage and discoloration of the adjoining skin and recommended HBOT for DFU with compromised closure flaps which Ms Shepherd felt was appropriate. Mariano Farley MD [place], [place] - [facility] 04/03/2025 16:50:45 OBGyn Episode No OBEpisode recorded.
--- OUTSIDE RECORDS SUMMARY | 2025-06-01 10:55 | XMS_ITS | Continuity of Care Document ---
Author Organization [place] - [facility], Main Office Address [address] [place] [address] Care Team Providers Care College Director Name Role Phone JENNIFER MCCORD Primary Care [...] Modified By Organization Details Last Modified Time 05/26/2025 4468 BACKGROUND 59 y/o female diabetic with moderately [...] MD ____ ____ Session notes Today's date: 26May2025 Session # 39 of 60 planed Next planned HBOT: 27May2025 22May - Found safe for HBOT this [...] session uneventfully. Tomorrow she returns to her pc analyst for follow up. NATHAN DONIS 28May - not here due to conflicting medical appointment. NATHAN DONIS 29May - Cleared for HBOT this date and completed full session without problem. NATHAN DONIS 30May - Found safe for HBOT this date and completed full session without problem. She has also been back to see her Specimen Accessioner, Dr Catherine Weathers, who Ms Shepherd states was pleased with progress. NATHAN DONIS 02Jun - Patient cleared for HBOT today. VS stable. FSBG within range. Patient completed full session with no problem. Lg Agudelo APRN 03Jun - We received last week's note from her pc analyst and Dr Weathers expressed satisfaction with progress. [...] full session with no problem. gL Agudelo JANITORIAL ASSISTANT 10Jun - Patient cleared for HBOT today. [...] full session with no problem. Lg Agudelo JANITORIAL ASSISTANT 19Jun - Patient deemed safe for HBOT today. VS stable. FSBG within range. Patient completed full session with no problem. Lg Agudelo APRN 20Jun - Arrived today without knee scooter; her pc analyst has advised can do without. Cleared for [...] session with no problem. Julio Cesar.Francisco AndersonMagnus JANITORIAL ASSISTANT 25Jun - Patient cleared for HBOT today. VS stable. FSBG within range. Patient completed full session with no problem. Julio Cesar.Francisco Agudelo JANITORIAL ASSISTANT 26Jun - Patient cleared for HBOT today. VS stable. FSBG within range. Patient completed full session with no problem. Lg Andersonwood JANITORIAL ASSISTANT 27Jun - Found safe for HBOT this [...] for HBOT and completed full session uneventfully. Jennifer DONIS 04Ju; - Found safe for HBOT [...] uneventfully. We got a note form her pc analyst, Dr Gay Weathers, who felt she was [...] completed full session with no problem. Lg Magnus JANITORIAL ASSISTANT Not available 05/26/2025 10:50:58 Reason for Referral None Reported. Procedures Surgical History Date Name Laterality Status Provider Name and Address Organization Details Recorded Time 05/27/20 25 [facility] Therapy Treatment Form completed [facility] - [facility] 05/27/2025 09:45:15 05/26/20 25 [facility] Therapy Treatment Form completed [facility] - [facility] 05/26/2025 09:41:49 05/23/20 25 [facility] Therapy Treatment Form completed [facility] - [facility] 05/23/2025 09:53:41 05/22/20 25 [facility] Therapy Treatment Form completed [facility] - [facility] 05/22/2025 09:49:19 05/21/20 25 [facility] Therapy Treatment Form completed [facility] - [facility] 05/21/2025 09:56:08 05/20/20 25 [facility] Therapy Treatment Form completed [facility] - [facility] 05/20/2025 09:41:29 05/19/20 25 [facility] Therapy Treatment Form completed [facility] - [facility] 05/19/2025 09:45:34 05/16/20 25 [facility] Therapy Treatment Form completed [facility] - [facility] 05/16/2025 09:41:57 05/15/20 25 [facility] Therapy Treatment Form completed [facility] - [facility] 05/15/2025 09:46:49 05/14/20 25 [facility] Therapy Treatment Form completed [facility] - [facility] 05/14/2025 14:06:43 05/13/20 25 [facility] Therapy Treatment Form completed [facility] - [facility] 05/13/2025 14:14:00 05/12/20 25 [facility] Therapy Treatment Form completed [facility] - [facility] 05/12/2025 14:06:32 05/09/20 25 [facility] Therapy Treatment Form completed [facility] - [facility] 05/09/2025 14:20:41 05/08/20 25 [facility] Therapy Treatment Form completed [facility] - [facility] 05/08/2025 14:16:34 05/07/20 25 [facility] Therapy Treatment Form completed [facility] - [facility] 05/07/2025 14:34:11 05/06/20 25 [facility] Therapy Treatment Form completed [facility] - [facility] 05/06/2025 14:33:30 05/05/20 25 [facility] Therapy Treatment Form completed Ngozi sharp [place] - [facility] 05/05/2025 14:39:41 05/02/20 25 [facility] Therapy Treatment Form completed [facility] - [facility] 05/02/2025 14:38:10 05/01/20 25 [facility] Therapy Treatment Form completed [facility] - [facility] 05/01/2025 14:30:47 04/30/20 25 [facility] Therapy Treatment Form completed [facility] - [facility] 04/30/2025 14:50:00 04/29/20 25 [facility] 04/29/2025 15:42:38 04/28/20 25 [facility] Therapy Treatment Form completed [facility] - [facility] 04/28/2025 13:47:28 04/25/20 25 [facility] Therapy Treatment Form completed [facility] - [facility] 04/25/2025 14:24:24 04/24/20 25 [facility] Therapy Treatment Form completed Zuleyka Morales [place] - [facility] 04/24/2025 14:37:59 04/23/20 25 [facility] Therapy Treatment Form completed [facility] - [facility] 04/23/2025 13:52:55 04/22/20 25 [facility] Therapy Treatment Form completed [facility] - [facility] 04/22/2025 14:27:44 04/21/20 25 [facility] Therapy Treatment Form completed [facility] - [facility] 04/21/2025 14:09:03 04/18/20 25 [facility] Therapy Treatment Form completed [facility] - [facility] 04/18/2025 14:22:52 04/17/20 25 [facility] Therapy Treatment Form completed [facility] - [facility] 04/17/2025 14:14:34 04/16/20 25 [facility] Therapy Treatment Form completed [facility] - [facility] 04/16/2025 14:24:52 04/15/20 25 [facility] Therapy Treatment Form completed [facility] - [facility] 04/15/2025 14:43:45 04/14/20 25 [facility] Therapy Treatment Form completed [facility] - [facility] 04/14/2025 14:39:53 04/11/20 25 [facility] Therapy Treatment Form completed [facility] - [facility] 04/11/2025 [...] Therapy Treatment Form completed Mariano Farley MD [place] - [facility] 04/03/2025 18:06:39 04/03/20 [...] 13:54:58 11/13/19 23 biopsy of skin completed Shonajesse Bender [place] - [facility] 04/03/2025 14:10:49 11/13/19 21 release of trigger finger completed Shona Bender [place] - [facility] 04/03/2025 13:55:11 11/13/19 21 hammer toe operation completed Shonajesse Bender [place] - [facility] 04/03/2025 13:55:27 11/13/19 19 procedure on shoulder completed Shona Bender [place] - [facility] 04/03/2025 13:55:44 11/13/19 [...] Address Organization Details Last Updated DateTime 5 80 /min 16 /min 97.7 [degF] 81 /min 16 /min 97.7 [degF] 100 % 100 % 110/77 mm[Hg] 116/75 mm[Hg] Ngozi gonzalez [place] - [facility] 09:42:05 Social History None recorded. Functional Status None [...] Mariano Farley MD Main Office [address],[facility] [address] [place] [address] 04/28/2025 11:33:32 05/01/2025 08:04:21 [id number] Mariano Farley MD Main Office [address] [place] [address] 04/29/2025 13:00:52 05/01/2025 08:57:14 [id number] Mariano Farley MD Main Office [address],[facility] [address] [place] [address] 04/30/2025 12:43:07 05/01/2025 09:26:34 [id number] Mariano Farley MD Main Office [address],[facility] [address] [place] [address] 05/01/2025 12:24:55 05/01/2025 15:28:20 [id number] Mariano Farley MD Main Office [address] [place] [address] 05/02/2025 12:29:37 05/05/2025 01:36:37 [id number] Mariano Farley MD Main Office [address] [address] 05/05/2025 12:35:08 05/05/2025 15:28:24 [id number] Mariano Farley MD Main Office [address] [place] [address] 05/06/2025 12:22:35 05/06/2025 17:17:12 [id number] Mariano Farley MD Main Office [address] [place] [address] 05/07/2025 12:27:25 05/07/2025 14:53:23 [id number] Mariano Farley MD Main Office [address] [place] [address] 05/08/2025 12:04:54 05/08/2025 15:52:07 [id number] Mariano Farley MD Main Office [address] [place] [address] 05/09/2025 12:17:15 05/09/2025 17:22:51 [id number] Mariano Farley MD Main Office [address] [place] [address] 05/12/2025 12:05:21 05/12/2025 19:44:55 [id number] Mariano Farley MD Main Office [address] [place] [address] 05/13/2025 11:43:11 05/13/2025 17:35:49 4369 Mariano Farley MD Main Office [address] [place] [address] 05/14/2025 12:18:55 05/14/2025 19:59:05 [id number] Mariano Farley MD Main Office [address] [place] [address] 05/15/2025 07:47:37 05/15/2025 09:52:44 4393 Mariano Farley MD Main Office [address] [place] [address] 05/16/2025 07:42:13 05/19/2025 06:53:35 4402 Mariano Farley MD Main Office [address] [place] [address] 05/19/2025 07:43:50 05/20/2025 07:03:34 4415 Mariano Farley MD Main Office [address] [place] [address] 05/20/2025 07:49:53 05/21/2025 10:50:47 [id number] Mariano Farley MD Main Office [address] [place] [address] 05/21/2025 08:03:58 05/21/2025 20:00:08 4441 Mariano Farley MD Main Office [address] [place] [address] 05/22/2025 07:49:59 05/22/2025 11:05:19 4454 Mariano Farley MD Main Office [address] [place] [address] 05/23/2025 07:57:04 05/26/2025 03:14:43 [id number] Mariano Farley MD Main Office [address] [place] [address] 05/26/2025 07:46:04 05/26/2025 10:49:52 Health Concerns Section Related Observation LastModified by Organization Detai ls LastModified Time None Recorded Concern Status LastModified by Organization Details LastModified Time None Recorded Payers Encounter Date Sequence Insurance Name Policy Number Policy Gregorio Covered Member ID Gregorio Member ID Guarantor Name 05/26/2025 1 [place] Zehra Sanor [id number] Zehra Sanor OBGyn Episode No OBEpisode recorded.
--- OUTSIDE RECORDS SUMMARY | 2025-06-01 10:55 | XMS_ITS | Continuity of Care Document ---
Author Organization [place] - [facility], Main Office Address [address] [place] [address] Care Team Providers Care Inventory Control Supervisor Name Role Phone JENNIFER MCCORD Primary Care [...] Modified By Organization Details Last Modified Time 05/23/2025 4454 BACKGROUND 59 y/o female diabetic with moderately [...] MD ____ ____ Session notes Today's date: 23May2025 Session # 38 of 40 planed Next planned HBOT: 26May2025 22May - Found safe for HBOT this [...] session uneventfully. Tomorrow she returns to her professor of exercise science for follow up. NATHAN DONIS 28May - not here due to conflicting medical appointment. NATHAN DONIS 29May - Cleared for HBOT this date and completed full session without problem. NATHAN DONIS 30May - Found safe for HBOT this date and completed full session without problem. She has also been back to see her Technical Applications Specialist, Dr Catherine Weathers, who Ms Shepherd states was pleased with progress. NATHAN DONIS 02Jun - Patient cleared for HBOT today. VS stable. FSBG within range. Patient completed full session with no problem. Lg Agudelo APRN 03Jun - We received last week's note from her professor of exercise science and Dr Weathers expressed satisfaction with progress. [...] full session with no problem. Lg Agudelo HELP DESK SUPERVISOR 10Jun - Patient cleared for HBOT today. [...] full session with no problem. Lg Agudelo HELP DESK SUPERVISOR 19Jun - Patient deemed safe for HBOT today. VS stable. FSBG within range. Patient completed full session with no problem. Lg Agudelo APRN 20Jun - Arrived today without knee scooter; her professor of exercise science has advised can do without. Cleared for [...] session with no problem. Julio Cesar.Francisco Agudelo HELP DESK SUPERVISOR 25Jun - Patient cleared for HBOT today. VS stable. FSBG within range. Patient completed full session with no problem. Julio Cesar.Francisco Agudelo HELP DESK SUPERVISOR 26Jun - Patient cleared for HBOT today. VS stable. FSBG within range. Patient completed full session with no problem. Julio Cesar.Francisco Agudelo HELP DESK SUPERVISOR 27Jun - Found safe for HBOT this [...] uneventfully. We got a note form her professor of exercise science, Dr Gay Weathers, who felt she was now suitable to stop treatment with session 40. NATHAN DONIS 10Jul - Cleared for HBOT this date and completed full session with no problem. NATHAN DONIS 11Jul - Found safe for HBOT this date and completed full session uneventfully. Jennifer DONIS [email or web address] Not available 05/26/2025 03:14:39 Reason for Referral None Reported. Procedures Surgical History Date Name Laterality Status Provider Name and Address Organization Details Recorded Time 05/27/20 25 [facility] Therapy Treatment Form completed Ngozi carlos [place] - [facility] 05/27/2025 09:45:15 05/26/20 25 [facility] Therapy Treatment Form completed [facility] - [facility] 05/26/2025 09:41:49 05/23/20 25 [facility] Therapy Treatment Form completed [facility] - [facility] 05/23/2025 09:53:41 05/22/20 25 [facility] Therapy Treatment Form completed [facility] - [facility] 05/22/2025 09:49:19 05/21/20 25 [facility] Therapy Treatment Form completed [facility] - [facility] 05/21/2025 09:56:08 05/20/20 25 [facility] Therapy Treatment Form completed [facility] - [facility] 05/20/2025 09:41:29 05/19/20 25 [facility] Therapy Treatment Form completed [facility] - [facility] 05/19/2025 09:45:34 05/16/20 25 [facility] Therapy Treatment Form completed [facility] - [facility] 05/16/2025 09:41:57 05/15/20 25 [facility] Therapy Treatment Form completed [facility] - [facility] 05/15/2025 09:46:49 05/14/20 25 [facility] Therapy Treatment Form completed [facility] - [facility] 05/14/2025 14:06:43 05/13/20 25 [facility] Therapy Treatment Form completed [facility] 05/13/2025 14:14:00 05/12/20 25 [facility] Therapy Treatment Form completed [facility] - [facility] 05/12/2025 14:06:32 05/09/20 25 [facility] Therapy Treatment Form completed [facility] - [facility] 05/09/2025 14:20:41 05/08/20 25 [facility] Therapy Treatment Form completed [facility] - [facility] 05/08/2025 14:16:34 05/07/20 25 [facility] Therapy Treatment Form completed [facility] - [facility] 05/07/2025 14:34:11 05/06/20 25 [facility] Therapy Treatment Form completed [facility] - [facility] 05/06/2025 14:33:30 05/05/20 25 [facility] Therapy Treatment Form completed [facility] - [facility] 05/05/2025 14:39:41 05/02/20 25 [facility] Therapy Treatment Form completed Ngozi sharp [place] - [facility] 05/02/2025 14:38:10 05/01/20 25 [facility] Therapy Treatment Form completed [facility] - [facility] 05/01/2025 14:30:47 04/30/20 25 [facility] Therapy Treatment Form completed [facility] - [facility] 04/30/2025 14:50:00 04/29/20 25 [facility] Therapy Treatment Form completed Zuleyka Morales [place] - [facility] 04/29/2025 15:42:38 04/28/20 25 [facility] Therapy Treatment Form completed [facility] - [facility] 04/28/2025 13:47:28 04/25/20 25 [facility] Therapy Treatment Form completed [facility] - [facility] 04/25/2025 14:24:24 04/24/20 25 [facility] 04/24/2025 14:37:59 04/23/20 25 [facility] Therapy Treatment Form completed [facility] - [facility] 04/23/2025 13:52:55 04/22/20 25 [facility] Therapy Treatment Form completed [facility] - [facility] 04/22/2025 14:27:44 04/21/20 25 [facility] Therapy Treatment Form completed Ngozi carlos [place] - [facility] 04/21/2025 14:09:03 04/18/20 25 [facility] Therapy Treatment Form completed [facility] - [facility] 04/18/2025 14:22:52 04/17/20 25 [facility] Therapy Treatment Form completed [facility] - [facility] 04/17/2025 14:14:34 04/16/20 25 [facility] Therapy Treatment Form completed [facility] - [facility] 04/16/2025 14:24:52 04/15/20 25 [facility] Therapy Treatment Form completed [facility] - [facility] 04/15/2025 14:43:45 04/14/20 25 [facility] Therapy Treatment Form completed [facility] - [facility] 04/14/2025 14:39:53 04/11/20 25 [facility] Therapy Treatment Form completed [facility] - [facility] 04/11/2025 14:38:24 04/10/20 25 [facility] Therapy Treatment Form completed Ngozi sharp [place] - [facility] 04/10/2025 14:35:50 [...] 21 hammer toe operation completed Shona Bender [place] - [facility] 04/03/2025 13:55:27 11/13/19 [...] Address Organization Details Last Updated DateTime 5 83 /min 16 /min 96.8 [degF] 97 % 97 % 71 /min 16 /min 98.2 [degF] 98 % 98 % 111/67 mm[Hg] 109/67 mm[Hg] Ngozi gonzalez [place] - [facility] 5 09:53:57 Date Recorded Heart rate Respiratory rate Body temperature Heart rate Respiratory rate Body temperature Oxygen saturation Oxygen saturation in Arterial blood by Pulse oximetry Systolic And Diastolic Systolic And Diastolic Provider Name and Address Organization Details Last Updated DateTime 5 80 /min 16 /min 97.7 [degF] 81 /min 16 /min 97.7 [degF] 100 % 100 % 110/77 mm[Hg] 116/75 mm[Hg] Ngozi gonzalez [place] - [facility] 5 09:42:05 Social History None recorded. Functional Status [...] SNOMED-CT Code Diagnosis ICD10 Code Diagnosis Note [id number] Mariano Farley MD Main Office [address] [place] [address] 04/23/2025 11:38:35 04/23/2025 14:47:00 [id number] Mariano Farley MD Main Office [address] [place] [address] 04/24/2025 12:20:48 04/24/2025 15:34:39 [id number] Mariano Farley MD Main Office [address] [place] [address] 04/25/2025 12:14:52 04/30/2025 15:40:51 4183 Mariano Farley MD Main Office [address] [place] [address] 04/28/2025 11:33:32 05/01/2025 08:04:21 [id number] Mariano Farley MD Main Office [address] [place] [address] 04/29/2025 13:00:52 05/01/2025 08:57:14 4218 Mariano Farley MD Main Office [address] [place] [address] 04/30/2025 12:43:07 05/01/2025 09:26:34 [id number] Mariano Farley MD Main Office [address] [place] [address] 05/01/2025 12:24:55 05/01/2025 15:28:20 4256 Mariano Farley MD Main Office [address] [place] [address] 05/02/2025 12:29:37 05/05/2025 01:36:37 4269 Mariano Farley MD Main Office [address] [place] [address] 05/05/2025 12:35:08 05/05/2025 15:28:24 [id number] Mariano Farley MD Main Office [address] [place] [address] 05/06/2025 12:22:35 05/06/2025 17:17:12 4302 Mariano Farley MD Main Office [address] [place] [address] 05/07/2025 12:27:25 05/07/2025 14:53:23 4316 Mariano Farley MD Main Office [address] [place] [address] 05/08/2025 12:04:54 05/08/2025 15:52:07 4332 Mariano Farley MD Main Office [address] [place] [address] 05/09/2025 12:17:15 05/09/2025 17:22:51 [id number] Mariano Farley MD Main Office [address] [place] [address] 05/12/2025 12:05:21 05/12/2025 19:44:55 [id number] Mariano Farley MD Main Office [address] [place] [address] 05/13/2025 11:43:11 05/13/2025 17:35:49 4369 Mariano Farley MD Main Office [address] [place] [address] 05/14/2025 12:18:55 05/14/2025 19:59:05 4379 Mariano Farley MD Main Office [address] [place] [address] 05/15/2025 07:47:37 05/15/2025 09:52:44 4393 Mariano Farley MD Main Office [address] [place] [address] 05/16/2025 07:42:13 05/19/2025 06:53:35 4402 Mariano Farley MD Main Office [address] [place] [address] 05/19/2025 07:43:50 05/20/2025 07:03:34 4415 Mariano Farley MD Main Office [address] [place] [address] 05/20/2025 07:49:53 05/21/2025 10:50:47 4430 Mariano Farley MD Main Office [address] [place] [address] 05/21/2025 08:03:58 05/21/2025 20:00:08 4441 Mariano Farley MD Main Office [address] [place] [address] 05/22/2025 07:49:59 05/22/2025 11:05:19 4454 Mariano Farley MD Main Office [address] [place] [address] 05/23/2025 07:57:04 05/26/2025 03:14:43 Health Concerns Section Related Observation LastModified by Organization Detai ls LastModified Time None Recorded Concern Status LastModified by Organization Details LastModified Time None Recorded Payers Encounter Date Sequence Insurance Name Policy Number Policy Gregorio Covered Member ID Gregorio Member ID Guarantor Name 05/23/2025 1 [employer] Zehra Shepherd [id number] Zehra Shepherd OBGyn Episode No OBEpisode recorded.
--- OUTSIDE RECORDS SUMMARY | 2025-06-01 10:56 | XMS_ITS | Clinical Summary ---
Author Organization [facility] Address [address] [place] [address] Care Team Providers Care Endbander Name Role Phone Amalia Walter APRN Primary Care Provider [phone] Allergies Active Allergy Reactions Criticality Noted Date [...] Active Continuous Glucose Sensor (Dexcom G7 Sensor) [facility] USE DIRECTED 4 Active cyclobenzaprine (Flexeril) 5 [...] 03/07/2025 Results Follow-Up Obstetrics & Gynecology [address] [place] [address] Pepito Rosales MD 03/07/2025 Outside Procedure External Location [address] [place] [id number] Pepito Rosales MD 03/05/2025 Telephone Obstetrics & Gynecology [address] [place] [address] Pepito Rosales MD from Last 3 Months Immunizations Immunization Administration [...] Description 11/21/2025 9:40 AM EST Office Visit [facility] [address] [place] [address] Kristyn Gusman, FORESTRY CONSERVATION WORKER [address] [address] 03/06/2026 8:45 AM EDT Office Visit Obstetrics & Gynecology [address] [place] [address] Pepito Rosales MD [address] [place] [address] Health Maintenance Due Date Last Done Comments [facility]-Diabetes: Hemoglobin A1C 1965 [facility]-HIV Screening 1965 [facility]-Hepatitis C Screening 1965 [facility]-/Child/Adol SDOH Screenings 1965 [id number] Vaccine (#1) 1969 Diabetes: Dental Exam 1974 [...] PM EDT Narrative 03/07/2025 4:18 [place] [address] Name: ZEHRA SHEPHERD Exam Date: 03/07/2025 : 1965 Age 59 years Gender: F Physician: PEPITO ROSALES Facility: [facility] Facility HSV: Outpatient Exam: TITUS SCRN MAMMO [...] Thank you for referring ZEHRA SHEPHERD to [facility]. Legally authenticated by LORRAINE CHILDS 2025-03-07 16:06:10 Procedure Note Provider, [facility] - 03/07/2025 [place] [address] Name: ZEHRA SHEPHERD Exam Date: 03/07/2025 : 1965 Age 59 years Gender: F Physician: PEPITO ROSALES Facility: [facility] Facility HSV: Outpatient Exam: TITUS SCRN MAMMO [...] Thank you for referring ZEHRA SHEPHERD to [facility]. Legally authenticated by LORRAINE CHILDS 2025-03-07 16:06:10 Pepito Rosales MD IMG BI PROCEDURES Final Result from Last 3 Months Insurance [id number] Care Teams Endbander Relationship Specialty Start Date End Date Amalia Walter APRN [address] [place] [id number] PCP - General 09/17/24
--- OUTSIDE RECORDS SUMMARY | 2025-06-01 10:56 | XMS_ITS | Continuity of Care Document ---
Author Organization [place] [facility], Main Office Address [address] [place] [address] Care Team Providers Care Web Press Operator Name Role Phone JENNIFER MCCORD Primary Care Provider [phone] Assessment No assessment recorded. Plan of Treatment [...] Modified By Organization Details Last Modified Time 04/21/2025 4091 BACKGROUND 59 y/o female diabetic with moderately [...] MD ____ ____ Session notes Today's date: 21Apr2025 Session # 14 of 40 planed Next planned HBOT: 22Apr2025 22May - Found safe for HBOT this [...] session uneventfully. Tomorrow she returns to her remote encoding operations supervisor for follow up. NATHAN DONIS 28May - not here due to conflicting medical appointment. NATHAN DONIS 29May - Cleared for HBOT this date and completed full session without problem. NATHAN DONIS 30May - Found safe for HBOT this date and completed full session without problem. She has also been back to see her Exchange Clerk, Dr Catherine Weathers, who Ms Shepherd states was pleased with progress. NATHAN DONIS 02Jun - Patient cleared for HBOT today. VS stable. FSBG within range. Patient completed full session with no problem. Lg Agudelo APRN 03Jun - We received last week's note from her remote encoding operations supervisor and Dr Weathers expressed satisfaction with progress. Case reviewed today and note she has 20 more Sessions authorized. To get more sessions authorized will require unresolved remaining issues which will need to be carefully assessed. Jennifer DONIS 04Jun - Cleared for HBOT this date and completed full session without problem. NATHAN DONIS 05Jun - Deemed safe for HBOT this date and completed full session free of problem. NATHAN DONIS 06Jun - Deemed safe for HBOT this date and completed full session free of problem. Jennifer DONIS 09Jun - Patient cleared for HBOT today. VS stable. FSBG within range. Patient completed full session with no problem. Lg Agudelo PRESIDENT AND CHIEF OPERATING OFFICER Not available 04/21/2025 16:04:19 Reason for Referral None Reported. Procedures Surgical History Date Name Laterality Status Provider Name and Address Organization Details Recorded Time 05/27/20 25 [facility] Therapy Treatment Form completed [facility] - [facility] 05/27/2025 09:45:15 05/26/20 25 [facility] Therapy Treatment Form completed [facility] - [facility] 05/26/2025 09:41:49 05/23/20 25 [facility] Therapy Treatment Form completed [facility] - [facility] 05/23/2025 09:53:41 05/22/20 25 [facility] Therapy Treatment Form completed [facility] 05/22/2025 09:49:19 05/21/20 25 [facility] Therapy Treatment Form completed [facility] - [facility] 05/21/2025 09:56:08 05/20/20 25 [facility] Therapy Treatment Form completed [facility] - [facility] 05/20/2025 09:41:29 05/19/20 25 [facility] Therapy Treatment Form completed [facility] - [facility] 05/19/2025 09:45:34 05/16/20 25 [facility] Therapy Treatment Form completed [facility] - [facility] 05/16/2025 09:41:57 05/15/20 25 [facility] Therapy Treatment Form completed [facility] - [facility] 05/15/2025 09:46:49 05/14/20 25 [facility] Therapy Treatment Form completed [facility] 05/14/2025 14:06:43 05/13/20 25 [facility] Therapy Treatment Form completed Ngozi sharp [place] - [facility] 05/13/2025 14:14:00 05/12/20 25 [facility] Therapy Treatment Form completed [facility] - [facility] 05/12/2025 14:06:32 05/09/20 25 [facility] Therapy Treatment Form completed [facility] - [facility] 05/09/2025 14:20:41 05/08/20 25 [facility] Therapy Treatment Form completed [facility] - [facility] 05/08/2025 14:16:34 05/07/20 25 [facility] Therapy Treatment Form completed [facility] - [facility] 05/07/2025 14:34:11 05/06/20 25 [facility] Therapy Treatment Form completed [facility] - [facility] 05/06/2025 14:33:30 05/05/20 25 [facility] Therapy Treatment Form completed [facility] - [facility] 05/05/2025 14:39:41 05/02/20 25 [facility] Therapy Treatment Form completed [facility] - [facility] 05/02/2025 14:38:10 05/01/20 25 [facility] Therapy Treatment Form completed [facility] - [facility] 05/01/2025 14:30:47 04/30/20 25 [facility] Therapy Treatment Form completed [facility] - [facility] 04/30/2025 14:50:00 04/29/20 25 [facility] 04/29/2025 15:42:38 04/28/20 25 [facility] Therapy Treatment Form completed [facility] - [facility] 04/28/2025 13:47:28 04/25/20 25 [facility] Therapy Treatment Form completed [facility] - [facility] 04/25/2025 14:24:24 04/24/20 25 [facility] Therapy [facility] 04/24/2025 14:37:59 04/23/20 25 [facility] Therapy Treatment Form completed [facility] - [facility] 04/23/2025 13:52:55 04/22/20 25 [facility] Therapy Treatment Form completed [facility] - [facility] 04/22/2025 14:27:44 04/21/20 25 [facility] Therapy Treatment Form completed [facility] - [facility] 04/21/2025 14:09:03 04/18/20 25 [facility] Therapy Treatment Form completed [facility] - [facility] 04/18/2025 14:22:52 04/17/20 25 [facility] Therapy Treatment Form completed [facility] - [facility] 04/17/2025 14:14:34 04/16/20 25 [facility] Therapy Treatment Form completed [facility] - [facility] 04/16/2025 14:24:52 04/15/20 25 [facility] Therapy Treatment Form completed [facility] - [facility] 04/15/2025 14:43:45 04/14/20 25 [facility] Therapy Treatment Form completed [facility] - [facility] 04/14/2025 14:39:53 04/11/20 25 [facility] Therapy Treatment Form completed [facility] - [facility] 04/11/2025 14:38:24 04/10/20 25 [facility] Therapy Treatment Form completed [facility] - [facility] 04/10/2025 14:35:50 04/08/20 25 [facility] Therapy Treatment Form completed [facility] - [facility] 04/08/2025 14:29:12 04/07/20 25 [facility] Therapy Treatment Form completed Nahomi Thurston [place] - [facility] 04/07/2025 11:54:59 04/06/20 25 [facility] Therapy Treatment Form completed Nahomi Roote [place] [facility] 04/06/2025 12:08:17 04/05/20 [...] 04/03/2025 13:57:12 11/13/18 92 section completed Shonajesse [facility] - [facility] 04/03/2025 13:57:07 11/13/18 84 appendectomy completed Shona Napoleon [facility] 04/03/2025 13:57:28 11/13/18 77 tonsillectomy and adenoidectomy completed Shona Napoleon [facility] - [facility] 04/03/2025 13:57:37 [...] Address Organization Details Last Updated DateTime 5 81 /min 16 /min 97.7 [degF] 96 % 96 % 69 /min 16 /min 97.9 [degF] 99 % 99 % 134/71 mm[Hg] 124/79 mm[Hg] Ngozi carlos [place] [facility] 5 14:09:57 Social History None recorded. Functional Status None [...] Mariano Farley MD Main Office [address] [place] [address] 04/03/2025 13:39:59 04/03/2025 16:50:46 [id number] Mariano Farley MD Main Office [address] [place] [address] 04/03/2025 15:32:51 04/03/2025 18:10:03 3904 Mariano Farley MD Main Office [address] [place] [address] 04/04/2025 15:39:00 04/08/2025 08:19:46 [id number] Mariano Farley MD Main Office [address] [place] [address] 04/05/2025 10:12:41 04/08/2025 08:22:20 [id number] Mariano Farley MD Main Office [address] [place] [address] 04/06/2025 10:28:04 04/08/2025 08:26:15 3913 Mariano Farley MD Main Office [address] [place] [address] 04/07/2025 09:45:56 04/08/2025 08:30:09 3923 Mariano Farley MD Main Office [address] [place] [address] 04/08/2025 12:11:52 04/08/2025 18:52:34 [id number] Mariano Farley MD Main Office [address] [place] [address] 04/10/2025 12:15:32 04/11/2025 13:41:15 3974 Mariano Farley MD Main Office [address] [place] [address] 04/11/2025 12:17:41 04/14/2025 08:14:43 3993 Mariano Farley MD Main Office [address] [place] [address] 04/14/2025 12:22:08 04/14/2025 17:08:51 [id number] Mariano Farley MD Main Office [address] [place] [address] 04/15/2025 12:29:05 04/15/2025 18:07:29 4030 Mariano Farley MD Main Office [address] [place] [address] 04/16/2025 12:09:34 04/16/2025 16:28:25 4044 Mariano Farley MD Main Office [address] [place] [address] 04/17/2025 12:00:06 04/17/2025 15:57:18 4073 Mariano Farley MD Main Office [address] [place] [address] 04/18/2025 12:10:37 04/18/2025 17:06:48 4091 Mariano Farley MD Main Office [address] [place] [address] 04/21/2025 11:56:08 04/21/2025 16:04:26 Health Concerns Section Related Observation LastModified by Organization Detai ls LastModified Time None Recorded Concern Status LastModified by Organization Details LastModified Time None Recorded Payers Encounter Date Sequence Insurance Name Policy Number Policy Gregorio Covered Member ID Gregorio Member ID Guarantor Name 04/21/2025 1 [id number] Zehra Sanor [id number] Zehra Shepherd OBGyn Episode No OBEpisode recorded.
--- OUTSIDE RECORDS SUMMARY | 2025-06-01 10:56 | XMS_ITS | Continuity of Care Document ---
Author Organization [place] - [facility], Main Office Address [address] [place] [address] Care Team Providers Care Junior Programmer Name Role Phone JENNIFER MCCORD Primary Care [...] Modified By Organization Details Last Modified Time 04/28/2025 [id number] BACKGROUND 59 y/o female diabetic with moderately [...] MD ____ ____ Session notes Today's date: 28Apr2025 Session # 19 of 40 planed Next planned HBOT: 29Apr2025Ma - Found safe for HBOT this date [...] session uneventfully. Tomorrow she returns to her government service executive for follow up. NATHAN DONIS 28May - not here due to conflicting medical appointment. NATHAN DONIS 29May - Cleared for HBOT this date and completed full session without problem. NATHAN DONIS 30May - Found safe for HBOT this date and completed full session without problem. She has also been back to see her Patient Escort, Dr Catherine Weathers, who Ms Shepherd states was pleased with progress. NATHAN DONIS 02Jun - Patient cleared for HBOT today. VS stable. FSBG within range. Patient completed full session with no problem. Lg Agudelo APRN 03Jun - We received last week's note from her government service executive and Dr Weathers expressed satisfaction with progress. Case reviewed today and note she has 20 more Sessions authorized. To get more sessions authorized will require unresolved remaining issues which will need to be carefully assessed. Jennifer DONSI 04Jun - Cleared for HBOT this date [...] full session with no problem. Lg Agudelo FABRIC MACHINE OPERATOR 10Jun - Patient cleared for HBOT today. VS stable. FSBG within range. Patient completed full session with no problem. Lg Agudelo FABRIC MACHINE OPERATOR 11Jun - Patient deemed safe for HBOT today. VS stable. FSBS pre-treatment and post-treatment within range. Patient completed full session with no problem. Lg Agudelo FABRIC MACHINE OPERATOR 12Jun - Patient deemed safe for HBOT today. VS stable. FSBS pre-treatment and post-treatment within range. Patient completed full session with no problem. Lg Agudelo FABRIC MACHINE OPERATOR 13Jun - Found safe for HBOT this date and completed full session free of problem. Jennifer DONIS 16Jun - Patient deemed safe for HBOT today. VS stable. FSBG within range. Patient completed full session with no problem. Lg Agudelo FABRIC MACHINE OPERATOR Not available 05/01/2025 08:05:18 Reason for Referral None Reported. Procedures Surgical History Date Name Laterality Status Provider Name and Address Organization Details Recorded Time 05/27/20 25 [facility] Therapy Treatment Form completed [facility] - [facility] 05/27/2025 09:45:15 05/26/20 25 [facility] Therapy Treatment Form completed [facility] - [facility] 05/26/2025 09:41:49 05/23/20 25 [facility] Therapy Treatment Form completed [facility] - [facility] 05/23/2025 09:53:41 05/22/20 25 [facility] Therapy Treatment Form completed [facility] - [facility] 05/22/2025 09:49:19 05/21/20 25 [facility] Therapy Treatment Form completed [facility] - [facility] 05/21/2025 09:56:08 05/20/20 25 [facility] Therapy Treatment Form completed [facility] - [facility] 05/20/2025 09:41:29 05/19/20 25 [facility] Therapy Treatment Form completed [facility] 05/19/2025 09:45:34 05/16/20 25 [facility] Therapy Treatment Form completed [facility] - [facility] 05/16/2025 09:41:57 05/15/20 25 [facility] Therapy Treatment Form completed [facility] - [facility] 05/15/2025 09:46:49 05/14/20 25 [facility] Therapy Treatment Form completed [facility] - [facility] 05/14/2025 14:06:43 05/13/20 25 [facility] Therapy Treatment Form completed [facility] 05/13/2025 14:14:00 05/12/20 25 [facility] Therapy Treatment Form completed [facility] 05/12/2025 14:06:32 05/09/20 25 [facility] Therapy Treatment Form completed [facility] 05/09/2025 14:20:41 05/08/20 25 [facility] Therapy Treatment Form completed [facility] - [facility] 05/08/2025 14:16:34 05/07/20 25 [facility] Therapy Treatment Form completed [facility] 05/07/2025 14:34:11 05/06/20 25 [facility] Therapy Treatment Form completed [facility] 05/06/2025 14:33:30 05/05/20 25 [facility] Therapy Treatment Form completed [facility] 05/05/2025 14:39:41 05/02/20 25 [facility] Therapy Treatment Form completed [facility] 05/02/2025 14:38:10 05/01/20 25 [facility] Therapy Treatment Form completed [facility] 05/01/2025 14:30:47 04/30/20 25 [facility] Therapy Treatment Form completed [facility] 04/30/2025 14:50:00 04/29/20 25 [facility] Therapy Treatment Form completed Zuleyka Morales [place] - [facility] 04/29/2025 15:42:38 04/28/20 25 [facility] Therapy Treatment Form completed [facility] - [facility] 04/28/2025 13:47:28 04/25/20 25 [facility] Therapy Treatment Form completed [facility] 04/25/2025 14:24:24 04/24/20 25 [facility] Therapy Treatment Form completed Zuleyka Morales [place] - [facility] 04/24/2025 14:37:59 04/23/20 25 [facility] Therapy Treatment Form completed [facility] 04/23/2025 13:52:55 04/22/20 25 [facility] Therapy Treatment Form completed [facility] 04/22/2025 14:27:44 04/21/20 25 [facility] Therapy Treatment Form completed [facility] 04/21/2025 14:09:03 04/18/20 25 [facility] Therapy Treatment Form completed [facility] 04/18/2025 14:22:52 04/17/20 25 [facility] Therapy Treatment Form completed [facility] 04/17/2025 14:14:34 04/16/20 25 [facility] Therapy Treatment Form completed [facility] 04/16/2025 14:24:52 04/15/20 25 [facility] Therapy Treatment Form completed [facility] 04/15/2025 14:43:45 04/14/20 25 [facility] Therapy Treatment Form completed [facility] 04/14/2025 14:39:53 04/11/20 25 [facility] Therapy Treatment Form completed [facility] 04/11/2025 14:38:24 04/10/20 25 [facility] Therapy Treatment Form completed [facility] 04/10/2025 14:35:50 04/08/20 25 [facility] Therapy Treatment Form completed [facility] 04/08/2025 14:29:12 04/07/20 25 [facility] Therapy Treatment Form completed Nahomi Thurston [place] - [facility] 04/07/2025 11:54:59 04/06/20 25 [facility] Therapy Treatment Form [place] [facility] 04/06/2025 12:08:17 [...] 04/03/2025 18:06:39 04/03/20 25 Wound completed Shona Bellell [place] [facility] 04/03/2025 13:47:21 03/13/20 24 Knee Replacement completed Shona Bellell [place] [facility] 04/03/2025 13:56:18 04/13/20 23 coronary artery bypass grafts x 4 completed Shona Bellell [place] [facility] 04/03/2025 13:54:46 12/14/19 23 Gallbladder Surgery completed Shona Bender [place] - [facility] 04/03/2025 13:54:58 11/13/19 23 biopsy of skin completed Shona Bellell [place] [facility] 04/03/2025 14:10:49 11/13/19 21 release of trigger finger completed Shona Bellell [place] - [facility] 04/03/2025 13:55:11 11/13/19 21 hammer toe operation completed Shona Bellell [place] - [facility] 04/03/2025 13:55:27 11/13/19 19 procedure on shoulder completed Shona Bender [place] - [facility] 04/03/2025 13:55:44 11/13/19 17 thumb surgery completed Shona Bellell [place] [facility] 04/03/2025 13:56:03 11/13/18 94 section completed Shona Napoleon [place] [facility] 04/03/2025 13:57:12 11/13/18 92 section completed Shona Bender [place] [facility] 04/03/2025 13:57:07 11/13/18 84 appendectomy completed Shona Napoleon [place] - [facility] [...] Updated DateTime 5 81 /min 16 /min 97.5 [degF] 100 % 100 % 64 /min 16 /min 98.1 [degF] 100 % 100 % 124/74 mm[Hg] 112/69 mm[Hg] Ngozi gonzalez [place] - [facility] 5 13:47:46 Date Recorded Heart rate Respiratory rate Body temperature Oxygen saturation Oxygen saturation in Arterial blood by Pulse oximetry Heart rate Respiratory rate Body temperature Oxygen saturation Oxygen saturation in Arterial blood by Pulse oximetry Systolic And Diastolic Systolic And Diastolic Provider Name and Address Organization Details Last Updated DateTime 5 81 /min 16 /min 97.5 [degF] 99 % 99 % 74 /min 16 /min 97.5 [degF] 100 % 100 % 132/74 mm[Hg] 110/76 mm[Hg] Zuleyka Morales [place] - [facility] 5 15:41:50 Date Recorded Heart rate Respiratory rate Body temperature Oxygen saturation Oxygen saturation in Arterial blood by Pulse oximetry Heart rate Respiratory rate Body temperature Oxygen saturation Oxygen saturation in Arterial blood by Pulse oximetry Systolic And Diastolic Systolic And Diastolic Provider Name and Address Organization Details Last Updated DateTime 5 79 /min 16 /min 97.3 [degF] 99 % 99 % 69 /min 16 /min 97.3 [degF] 100 % 100 % 117/72 mm[Hg] 116/74 mm[Hg] Ngozi gonzalez [place] - [facility] 5 14:50:19 Date Recorded Heart rate Respiratory rate Body temperature Oxygen saturation Oxygen saturation in Arterial blood by Pulse oximetry Heart rate Respiratory rate Body temperature Oxygen saturation Oxygen saturation in Arterial blood by Pulse oximetry Systolic And Diastolic Systolic And Diastolic Provider Name and Address Organization Details Last Updated DateTime 5 81 /min 16 /min 97.2 [degF] 100 % 100 % 79 /min 16 /min 97.9 [degF] 100 % 100 % 138/45 mm[Hg] 126/89 mm[Hg] Ngozi [facility] - [facility] 5 14:31:09 Social History None recorded. Functional Status None [...] MD Main Office [address] [place] [address] 04/03/2025 13:39:59 04/03/2025 16:50:46 [id number] Mariano Farley MD Main Office [address] [place] [address] 04/03/2025 15:32:51 04/03/2025 18:10:03 [id number] Mariano Farley MD Main Office [address] [place] [address] 04/04/2025 15:39:00 04/08/2025 08:19:46 [id number] Mariano Farley MD Main Office [address] [place] [address] 04/05/2025 10:12:41 04/08/2025 08:22:20 391Deni Farley MD Main Office [address] [place] [address] 04/06/2025 10:28:04 04/08/2025 08:26:15 391Juli Farley MD Main Office [address] [place] [address] 04/07/2025 09:45:56 04/08/2025 08:30:09 [id number] Mariano Farley MD Main Office [address] [place] [address] 04/08/2025 12:11:52 04/08/2025 18:52:34 [id number] Mariano Farley MD Main Office [address] [place] [address] 04/10/2025 12:15:32 04/11/2025 13:41:15 [id number] Mariano Farley MD Main Office [address] [place] [address] 04/11/2025 12:17:41 04/14/2025 08:14:43 [id number] Mariano Farley MD Main Office [address] [place] [address] 04/14/2025 12:22:08 04/14/2025 17:08:51 [id number] Mariano Farley MD Main Office [address] [place] [address] 04/15/2025 12:29:05 04/15/2025 18:07:29 [id number] Mariano Farley MD Main Office [address] [place] [address] 04/16/2025 12:09:34 04/16/2025 16:28:25 [id number] Mariano Farley MD Main Office [address] [place] [address] 04/17/2025 12:00:06 04/17/2025 15:57:18 [id number] Mariano Farley MD Main Office [address] [place] [address] 04/18/2025 12:10:37 04/18/2025 17:06:48 [id number] Mariano Farley MD Main Office [address] [place] , [place] [address] 04/21/2025 11:56:08 04/21/2025 16:04:26 [id number] Mariano Farley MD Main Office [address] [place] , [place] [address] 04/22/2025 11:58:46 04/22/2025 14:50:54 [id number] Mariano Farley MD Main Office [address] [place] , [place] [address] 04/23/2025 11:38:35 04/23/2025 14:47:00 [id number] Mariano Farley MD Main Office [address] [place] , [place] [address] 04/24/2025 12:20:48 04/24/2025 15:34:39 [id number] Mariano Farley MD Main Office [address] [place] , [place] [address] 04/25/2025 12:14:52 04/30/2025 15:40:51 [id number] Mariano Farley MD Main Office [address] [place] , [place] [address] 04/28/2025 11:33:32 05/01/2025 08:04:21 Health Concerns Section Related Observation LastModified by Organization Detai ls LastModified Time None Recorded Concern Status LastModified by Organization Details LastModified Time None Recorded Payers Encounter Date Sequence Insurance Name Policy Number Policy Gregorio Covered Member ID Gregorio Member ID Guarantor Name 04/28/2025 1 [id number] Zehra Aguayoor [id number] Zehra Shepherd OBGydolores Episode No OBEpisode recorded.
--- OUTSIDE RECORDS SUMMARY | 2025-06-01 10:56 | XMS_ITS | Continuity of Care Document ---
Author Organization [place] - [facility] Address [address] [place] [address] Care Team Providers Care Fire And Safety Helper Name Role Phone JENNIFER WALTER Primary Care Provider [phone] Assessment Encounter Date Assessment Date Assessment LastModified by Organization Details LastModified Time 04/14/2025 04/14/2025 -Medications were reviewed and any necessary updates and renewals were made, patient instructed to complete as prescribed. -The potential side effects of medications were discussed. -Counseling was done on care goals and ways to prevent future hospitalizatio ns. -Further treatment per orders listed below. bstears Not available 04/14/2025 09:55:25 Plan of Treatment Reminders Order Date Submit Date Provider Last Modified By Organization Details Last Modified Time Details Appointments Follow Up 2024 05:00P M Jennifer Walter APRN Not available Not available Not available Lab None recorded . Referral None recorded . Procedures None recorded . Surgeries None recorded . Imaging None recorded . Medication Orders None recorded . Patient TargetsNo targets recorded. Patient InstructionsNo instructions recorded. Reason for Referral None Reported. Results Created Date Observation Date Name Description Value Unit Range Abnormal Flag Note LastModifiedBy Organization Detail LastModifiedTime 03/25/2003/25/2025 CT, foot, w/o contr ast No observ ation record ed. [facility] [address], [place], [address], 03/25/2025 13:49:22 03/25/20 25 03/25/2025 ankle brach ial index No observ ation record ed. [facility] [address], [place], [address], 03/25/2025 17:51:20 03/26/2003/26/2025 birdie dong am No observ ation record ed. [facility] [address], [place], [address], 03/27/2025 08:18:25 03/26/20 25 03/26/2025 XR, foot, 3 or more view No observ [facility]ion [facility] [address], [place], [address], 03/27/2025 08:43:06 05/20/20 25 05/20/2025 XR, foot, 3 or more view No observ ation record ed. [facility] [address], [place], [address], 05/23/2025 08:22:56 Result Notes None recorded. Problems Name Problem SNOMED Code Status Onset Date Resolution Date Notes Provider Name and Address Organization Details Recorded Time Diabetes mellitus 87229855 Active Not Available [facility] 3 03:20:06 Neuropathy 362543690 Active 2021 Not Available [facility] 3 03:20:05 Arthritis 6542140 Active 2022 Not Available [facility] 3 03:20:05 Basal cell carcinoma of skin 422309209 Active 2022 Jennifer Walter, [employer] [address], [place], [address] , [place] - [facility] 3 10:22:52 Coronary arteriosclero sis 32927277 Active 2024 Jennifer Walter, [employer] [address], [place], [address] , [place] - [facility] 5 08:50:23 Problem Notes None recorded. Procedures Surgical History Date Name Laterality Status Provider Name and Address Organization Details Recorded Time 04/14/20 25 Medication Reconcilliation completed Zenaida Stears [place] - [facility] 04/14/2025 09:55:25 03/26/20 25 amputation of toe completed Zenaida Rae [place] - [facility] 04/14/2025 10:07:57 06/18/20 24 EXCISION OF CYST (SURG) completed Jennifer Walter, [employer] [address], [place], [address], [place] [facility] 06/20/2024 08:09:44 05/23/20 24 EXCISION OF CYST (SURG) completed Jennifer Walter APRN [address], [place], [address], [place] [facility] 05/24/2024 08:41:37 03/16/20 24 EXCISION OF CYST (SURG) completed Jennifer Walter APRN [address], [place], [address], [place] [facility] 04/16/2024 15:15:10 02/13/20 22 Date of Last Pap Smear completed Sara Chacko [place] - [facility] 06/17/2022 09:12:37 08/27/20 21 Knee Surgery completed Sara Chacko [place] - [facility] 06/17/2022 09:06:11 08/22/20 21 Colposcopy completed Sara Chacko [place] - [facility] 06/17/2022 09:06:10 07/14/20 21 Date of Last Mammogram completed Sara [place]acko [place] - [facility] 06/17/2022 09:12:20 07/14/20 21 Date of Last Colonoscopy completed Sara [place]acko [place] - [facility] 06/17/2022 09:12:30 03/16/20 15 dental surgery completed Sara [place]acko [place] [facility] 06/17/2022 09:06:11 11/13/19 04 Cyrosurgery of Cervix completed Sara Chacko [place] [facility] 06/17/2022 09:06:11 04/16/19 92 Caesarean Section completed Sara [place]acko [place] [facility] 06/17/2022 09:06:11 11/13/18 84 Appendectomy completed Sara [place]acko [place] [facility] 06/17/2022 09:06:11 11/13/18 77 Tonsillectomy completed Sara Chacko [place] - [facility] 06/17/2022 09:06:11 Cardiac Cath completed Sara Chacko [place] - [facility] 06/22/2023 14:20:39 Imaging Results None recorded. Procedure Notes None recorded. Medical Equipment None Reported. Allergies No known drug allergies Medications Name Sig Start Date Stop Date Status Note LastModified by Organization Details LastModified Time celecoxib 200 mg capsule 03/13 completed Not Available Not Available Not Available cyclobenz aprine 10 mg tablet TAKE 1 TABLET BY MOUTH ONCE DAILY AT BEDTIME NEEDED 06/22 completed Not Available Not Available Not Available metformin 500 mg tablet TAKE 1 TABLET BY MOUTH TWICE DAILY WITH MEALS 12/06 completed Not Available Not Available Not Available prednison e 10 mg tablet Take 1 tablet twice a day by oral route for 5 days. 12/06 completed Not Available Not Available Not Available triamcino lone acetonide 0.5 % topical cream APPLY CREAM TOPICALL Y TO AFFECTED AREA TWICE DAILY 12/02 completed Not Available Not Available Not Available azithromy con 250 mg tablet TAKE 2 TABLETS BY MOUTH ON DAY 1, AND THEN TAKE 1 TABLET BY MOUTH ONCE A DAY ON DAY 2 THROUGH DAY 5 09/03 completed Not Available Not Available Not Available benzonata te 200 mg capsule TAKE 1 CAPSULE BY MOUTH EVERY 8 HOURS NEEDED 12/06 completed Not Available Not Available Not Available hydrocodo ne 5 mg-acetam inophen 325 mg tablet TAKE 1 TO 2 TABLETS BY MOUTH EVERY 6 HOURS NEEDED FOR PAIN 06/04 completed Not Available Not Available Not Available minocycli ne 100 mg capsule TAKE 1 CAPSULE BY MOUTH TWICE DAILY FOR 7 DAYS 12/06 completed Not Available Not Available Not Available fluconazo le 200 mg tablet TAKE 1 TABLET BY MOUTH ONCE DAILY FOR FUNGAL INFECTIO N 05/27 completed Not Available Not Available Not Available meloxicam 15 mg tablet TAKE 1 TABLET BY MOUTH ONCE DAILY NEEDED 06/04 completed Not Available Not Available Not Available ondansetr on HCl 4 mg tablet 12/06 completed Not Available Not Available Not Available Children' s Aspirin 81 mg chewable tablet CHEW AND SWALLOW 1 TABLET BY MOUTH ONCE DAILY 12/21 completed duplicat e Not Available Not Available Not Available gabapenti n 400 mg capsule Take 1 capsule 3 times a day by oral route for 30 days. 07/15/ 2025 active Not Available Not Available Not Avai lable clobetaso l 0.05 % topical cream APPLY 1 GRAM OF CREAM TOPICALL Y TWICE DAILY FOR RASH ON LEFT FOOT FOR 4 WEEKS 02/25 completed Not Available Not Available Not Available clopidogr el 75 mg tablet TAKE 1 TABLET BY MOUTH ONCE DAILY active Not Available Not Available No t Available valacyclo vir 500 mg tablet TAKE 1 TABLET BY MOUTH ONCE DAILY active Not Available Not Available No t Available sulfameth oxazole 800 mg-trimet hoprim 160 mg tablet TAKE 1 TABLET BY MOUTH TWICE DAILY FOR CELLULIT IS 05/27 completed Not Available Not Available Not Available lovastati n 10 mg tablet Take 1 tablet every day by oral route. 06/22 completed Not Available Not Available Not Available aspirin 81 mg tablet,de layed release TAKE 1 TABLET BY MOUTH ONCE DAILY active Not Available Not Available No t Available tramadol 50 mg tablet TAKE 1 TABLET BY MOUTH TWICE DAILY FOR 3 DAYS 06/04 completed Not Available Not Available Not Available triamcino lone acetonide 0.1 % topical cream APPLY CREAM EXTERNAL LY TO AFFECTED AREA TWICE DAILY FOR 1 MONTH 12/02 completed Not Available Not Available Not Available amoxicill in 500 mg tablet TAKE 4 TABLETS BY MOUTH 1 HOUR PRIOR TO SURGERY 07/27 completed Not Available Not Available Not Available bisoprolo l fumarate 5 mg tablet TAKE 1 TABLET BY MOUTH ONCE DAILY active Not Available Not Available No t Available cefadroxi l 500 mg capsule 06/04 completed Not Available Not Available Not Available ciclopiro x 8 % topical solution APPLY TO AFFECTED NAIL TWICE DAILY 06/22 completed Not Available Not Available Not Available meloxicam 7.5 mg tablet TAKE 1 TABLET BY MOUTH ONCE DAILY NEEDED 06/22 completed Not Available Not Available Not Available oxycodone -acetamin ophen 5 mg-325 mg tablet TAKE 1 TABLET BY MOUTH EVERY 4 HOURS NEEDED 06/04 completed Not Available Not Available Not Available famotidin e 20 mg tablet TAKE 1 TABLET BY MOUTH ONCE DAILY 06/04 completed Not Available Not Available Not Available linezolid 600 mg tablet TAKE ONE TABLET BY MOUTH TWICE DAILY FOR 10 DAYS -- FINISH ALL MEDICINE -- active Not Available Not Available No t Available doxycycli ne monohydra te 100 mg capsule TAKE 1 CAPSULE BY MOUTH TWICE DAILY 12/06 completed Not Available Not Available Not Available hydrocodo ne 7.5 mg-acetam inophen 325 mg tablet TAKE ONE TABLET BY MOUTH EVERY 6 HOURS NEEDED FOR moderate pain MAY CAUSE DROWSINE SS 04/14 completed Not Available Not Available Not Available cephalexi n 500 mg capsule TAKE 1 CAPSULE BY MOUTH TWICE DAILY FOR 10 DAYS 09/21 completed Not Available Not Available Not Available pantopraz ole 40 mg tablet,de layed release TAKE 1 TABLET BY MOUTH ONCE DAILY 12/02 completed Not Available Not Available Not Available losartan 25 mg tablet TAKE 1 TABLET BY MOUTH ONCE DAILY active Not Available Not Available No t Available hydrochlo rothiazid e 12.5 mg capsule TAKE 1 CAPSULE BY MOUTH ONCE DAILY IN THE MORNING NEEDED 12/06 completed Not Available Not Available Not Available docusate sodium 100 mg capsule 06/04 completed Not Available Not Available Not Available gabapenti n 300 mg capsule TAKE 1 CAPSULE BY MOUTH THREE TIMES DAILY NEEDED FOR PAIN 12/21 completed Not Available Not Available Not Available diclofena c sodium 75 mg tablet,de layed release TAKE 1 TABLET BY MOUTH ONCE DAILY NEEDED FOR 90 DAYS 09/21 completed Not Available Not Available Not Available mupirocin 2 % topical ointment APPLY OINTMENT TOPICALL Y TO AFFECTED AREA TWICE DAILY FOR CELLULIT IS FOR 3 WEEKS. 02/25 completed Not Available Not Available Not Available diclofena c sodium 50 mg tablet,de layed release TAKE 1 TABLET BY MOUTH TWICE DAILY NEEDED active Not Available Not Available No t Available clobetaso l 0.05 % topical ointment APPLY APPROXIM ATELY 0.5 GRAM TOPICALL Y TWICE DAILY FOR 2 WEEKS 09/03 completed Not Available Not Available Not Available lovastati n 20 mg tablet TAKE 1 TABLET BY MOUTH WITH EVENING MEAL 12/06 completed Not Available Not Available Not Available levofloxa con 750 mg tablet TAKE ONE TABLET BY MOUTH ONCE DAILY FOR 10 DAYS -- FINISH ALL MEDICINE -- 04/14 completed Not Available Not Available Not Available methylpre dnisolone 4 mg tablets in a dose pack 09/03 completed Not Available Not Available Not Available albuterol sulfate HFA 90 mcg/actua tion aerosol inhaler INHALE 1 PUFF BY MOUTH EVERY 4 HOURS NEEDED 09/03 completed Not Available Not Available Not Available cefdinir 300 mg capsule TAKE 1 CAPSULE BY MOUTH TWICE DAILY FOR 10 DAYS 12/06 completed Not Available Not Available Not Available fluticaso ne propionat e 50 mcg/actua tion nasal spray,audrey pension USE 1 SPRAY(S) IN EACH NOSTRIL ONCE DAILY active Not Available Not Available No t Available metformin ER 500 mg tablet,ex tended release 24 hr Take 1 tablet every day by oral route. 2024 active Not Available Not Available Not Avai lable doxycycli ne hyclate 100 mg tablet TAKE 1 TABLET BY MOUTH TWICE DAILY 05/27 completed Not Available Not Available Not Available neomycin- polymyxin -hydrocor t 3.5 mg-10,000 unit/mL-1 % ear drops,audrey p INSTILL 4 DROPS INTO AFFECTED EAR(S) THREE TIMES DAILY 05/27 completed Not Available Not Available Not Available cyclobenz aprine 5 mg tablet Take 1 tablet every day by oral route as needed. 2024 active Not Available Not Available Not Avai lable rosuvasta tin 10 mg tablet TAKE 1 TABLET BY MOUTH ONCE DAILY AT BEDTIME 2024 active Not Available Not Available Not Avai lable BD Ultra-Fin e Mini Pen Needle 31 gauge x 3/16 USE DIRECTED WITH LANTUS AND HUMALOG PENS FOUR TIMES DAILY active Not Available Not Available No t Available chlorhexi dine gluconate 0.12 % mouthwash SWISH 1 TABLESPO ONFUL IN MOUTH FOR 30 SECONDS 3 4 TIMES DAILY 12/06 completed Not Available Not Available Not Available Lantus Solostar U-100 Insulin 100 unit/mL (3 mL) subcutane ous pen INJECT 50 UNITS SUBCUTAN EOUSLY ONCE DAILY 12/06 completed Not Available Not Available Not Available Humalog KwikPen (U-100) Insulin 100 unit/mL subcutane ous INJECT 25 UNITS SUBCUTAN EOUSLY THREE TIMES DAILY WITH MEALS 12/06 completed Not Available Not Available Not Available magnesium glycinate 420 mg active Not Available Not Available No t Available tranexami c acid 650 mg tablet 06/04 completed Not Available Not Available Not Available Brilinta 90 mg tablet TAKE 1 TABLET BY MOUTH EVERY 12 HOURS 06/22 completed Not Available Not Available Not Available OneTouch Verio test strips USE DIRECTED TO TEST BLOOD SUGAR THREE TIMES DAILY active Not Available Not Available No t Available Jardiance 10 mg tablet Take 1 tablet every day by oral route. 2024 active Not Available Not Available Not Avai lable sodium polystyre ne sulfonate 15 gram-sorb itol 20 gram/60 mL oral susp Take 60 mL every day by oral route. 05/27 completed Not Available Not Available Not Available Lactobaci llus acidophil us 0.5 mg (100 million cell) tablet 06/04 completed Not Available Not Available Not Available Ozempic 0.25 mg or 0.5 mg (2 mg/1.5 mL) subcutane ous pen injector Inject 0.5 mg every week by subcutan eous route as directed . 06/22 completed Not Available Not Available Not Available Dexcom G6 Transmitt er device USE DIRECTED (CHANGE EVERY 90 DAYS) 06/22 completed Not Available Not Available Not Available Voltaren Arthritis Pain 75 mg twice daily 06/22 completed Not Available Not Available Not Available Ozempic 1 mg/dose (4 mg/3 mL) subcutane ous pen injector INJECT 1MG SUBCUTAN EOUSLY EVERY WEEK 12/02 completed Not Available Not Available Not Available Semglee (insulin glargine- yfgn) Pen 100 unit/mL (3 mL) subcutane ous INJECT 50 UNITS SUBCUTAN EOUSLY ONCE A DAY FOR 30 DAYS 12/06 completed Not Available Not Available Not Available Ozempic 2 mg/dose (8 mg/3 mL) subcutane ous pen injector INJECT 2MG SUBCUTAN EOUSLY EVERY WEEK 05/27 completed Not Available Not Available Not Available Mounjaro 7.5 mg/0.5 mL subcutane ous pen injector INJECT 1 PEN SUBCUTAN EOUSLY ONCE A WEEK 05/27 completed Not Available Not Available Not Available Mounjaro 5 mg/0.5 mL subcutane ous pen injector INJECT 1 PEN SUBCUTAN EOUSLY ONCE A WEEK 05/27 completed Not Available Not Available Not Available Mounjaro 10 mg/0.5 mL subcutane ous pen injector INJECT CONTENTS OF 1 PEN SUBCUTAN EOUSLY ONCE A WEEK active Not Available Not Available No t Available Mounjaro 2.5 mg/0.5 mL subcutane ous pen injector INJECT 1 PEN SUBCUTAN EOUSLY ONCE A WEEK 05/27 completed Not Available Not Available Not Available Dexcom G7 Sensor device USE DIRECTED active Not Available Not Available No t Available Ozempic 0.25 mg or 0.5 mg (2 mg/3 mL) subcutane ous pen injector INJECT 0.5 MG SUBCUTAN EOUSLY ONCE A WEEK 07/27 completed Not Available Not Available Not Available Vitals Date Recorded Body height Body temperature Respiratory rate Heart rate Oxygen saturation Oxygen saturation in Arterial blood by Pulse oximetry Systolic And Diastolic Provider Name and Address Organization Details Last Updated DateTime 175.26 cm 98 [degF] 18 /min 78 /min 100 % 100 % 118/76 mm[Hg] Zenaida Rae [place] - [facility] 10:05:20 Social History Question Answer Notes LastModified by Organizat ion Details LastModified Time Tobacco Smoking Status Former Smoker Sara estrada, [place] - [facility] 06/17/2022 09:06:11 Do You Have An Advance Directive? No Information not available 06/17/2022 How Many Years Have You Consumed Alcohol? 35 Information not available 06/17/2022 Are You Blind Or Do You Have Difficulty Seeing? No Information not available 04/14/2025 Is Blood Transfusion Acceptable In An Emergency? Yes Information not available 06/17/2022 What Is Your Level Of Caffeine Consumption? Moderate Information not available 06/17/2022 How Much Tobacco Do You Chew? None Information not available 06/17/2022 Are You Deaf Or Do You Have Serious Difficulty Hearing? Yes Information not available 06/17/2022 What Type Of Diet Are You Following? REGULAR Information not available 04/14/2025 Which Illicit Or Recreational Drugs Have You Used? None Information not available 06/17/2022 What Is The Highest Grade Or Level Of School You Have Completed Or The Highest Degree You Have Received? [id number] Information not available 06/17/2022 When Did You Quit Smoking? 11-15yearssi chathiago tobin Information not available 06/17/2022 What Was The Date Of Your Most Recent Tobacco Screening? 12/02/2024 Information not available 12/02/2024 How Many Children Do You Have? 2 Information not available 06/17/2022 Do You Use Protection During Sex? Always Information not available 06/17/2022 Do You Use Protection Against STDs? Always Information not available 06/17/2022 What Is Your Relationship Status? Information not available 06/17/2022 Do You Use Your Seat Belt Or Car Seat Routinely? No Information not available 06/17/2022 Are You Sexually Active? No Information not available 06/17/2022 Do You Have Smoke And Carbon Monoxide Detectors In Your Home? Yes Information not available 06/17/2022 At What Age Did You Start Smoking Tobacco? 19 Information not available 06/17/2022 Are You Passively Exposed To Smoke? No Information not available 06/17/2022 How Much Tobacco Do You Smoke? 1 PPD On And Off Smoker Information not available 04/14/2025 Do You Use Sunscreen Routinely? Yes Information not available 06/17/2022 Has Tobacco Cessation Counseling Been Provided? No Information not available 03/13/2023 How Many Years Have You Smoked Tobacco? 28 Stopped In 2012 Information not available 04/14/2025 Do You Have Difficulty Walking Or Climbing Stairs? No Information not available 04/14/2025 Sex: Female Functional Status Question Answer Note LastModified by Organizat ion Details LastModified Time How many times per week do you consume alcohol? 1-2 times per week Information not available 04/14/2025 Do you or have you ever used smokeless tobacco? Never used smokeless tobacco Information not available 06/17/2022 Are you currently employed? Yes Information not available 06/17/2022 Do you have transportation difficulties? No Information not available 04/14/2025 Are you able to care for yourself? Yes Information n ot available 06/17/2022 Do you have difficulty dressing or bathing? No Information not available 04/14/2025 Do you or have you ever used e-cigarettes or vape? Never used electronic cigarettes Information not available 06/17/2022 What is your exercise level? Occasional Information not available 06/17/2022 Do you use any illicit or recreational drugs? No Information not available 04/14/2025 Do you or have you ever used any other forms of tobacco or nicotine? No Information not available 04/14/2025 What is your level of alcohol consumption? Occasional Information not available 06/17/2022 Are you able to walk? YESWOREST Information not available 04/14/2025 Do you have difficulty doing errands alone? No Information not available 04/14/2025 What is your occupation? 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 [id number] Information not available 06/17/2022 Do you have difficulty concentrating, remembering or making decisions? No Information no t available 04/14/2025 Family History Relationship Description Onset Age of this Age Resolved Age Notes LastModified by Organization Details LastModified Time Mother Arthritis [email or web address] Not availabl e 06/17/2022 09:06:10 Father Heart disease cbuckler Not available 2021 09:06:10 Brother Diabetes mellitus cbuckler Not available 2021 09:06:10 Medical History Condition Response Diabetes Y Arthritis Y Neuropathy Y Gynecological History Statement/Question Response Abnormal Pap Y Date of Last Mammogram 07/14/2021 Date of LMP 11/13/2005 Post Menopausal Bleeding N STIs/STDs Y Colposcopy 08/22/2021 HPV Vaccine N Current Control Method None Age at Menarche 17 Age at First Child 24 If Post Menopausal, Age at Menopause 41 Date of Last Colonoscopy 07/14/2021 Sexually Active? Y Menses Monthly N Date of Last Pap Smear 02/12/2022 Sexual Problems? N Hormone Replacement Therapy N Obstetrics History GPAL:G 2 P 2 0 0 2 Type Value Multiple Births 0 Full Term 2 Induced 0 Spontaneous 0 Premature 0 Living 2 Ectopics 0 Total 2 Immunizations Vaccine Type Date Status Note Provider Nam e and Address Organization Details Recorded Time zoster recombinant 0 completed Not Available [facility] 05/09/2023 03:20:06 zoster recombinant 1 completed Not Available [facility] 05/09/2023 03:20:06 Influenza, split virus, quadrivalent, preservative 1 completed Not Available [facility] 12/21/2023 15:47:54 Influenza, split virus, quadrivalent, PF 7 completed Not Available [facility] 05/09/2023 03:20:06 influenza, split (incl. purified surface antigen) 3 completed Not Available [facility] 05/09/2023 03:20:06 Influenza, split virus, quadrivalent, PF 0 completed Not Available [facility] 05/09/2023 03:20:06 Hep A-Hep B 9 completed Not Available [facility] 05/09/2023 03:20:06 Hep A-Hep B 8 completed Not Available [facility] 05/09/2023 03:20:06 Influenza, split virus, quadrivalent, PF 9 completed Not Available [facility] 05/09/2023 03:20:06 Hep A-Hep B 8 completed Not Available [facility] 05/09/2023 03:20:06 Influenza, split virus, quadrivalent, PF 8 completed Not Available [facility] 05/09/2023 03:20:06 Influenza, split virus, quadrivalent, PF 1 completed Not Available [facility] 05/09/2023 03:20:06 Past Encounters Encounter ID Performer Location Encounter Start Date Encounter Closed Date Diagnosis/Indication Diagnosis SNOMED-CT Code Diagnosis ICD10 Code Diagnosis Note [id number] Jennifer Walter APRN [address] [address] 04/14/2025 09:43:12 04/14/2025 10:49:03 Amputated toe of right foot 258899863 S98.131A follow up with Dr Weathers. Health Concerns Section Related Observation LastModified by Organization Detai ls LastModified Time None Recorded Concern Status LastModified by Organization Details LastModified Time None Recorded Payers Encounter Date Sequence Insurance Name Policy Number Policy Gregorio Covered Member ID Gregorio Member ID Guarantor Name 04/14/2025 1 [employer] [id number] Zehra Shepherd [id number] Zehra Shepherd Notes Date Note Type Note Provider Name and Address Organization Details Recorded Time 04/14/2025 text/html Emergency Depart ment Follow-Up RecordReported bypatient.Discharge InformationName of hospital/urgent care patient was seen: ([facility]); Patient presented to hospital/urgent care on or around: actual date March 25, 2025; Patient presented to hospital for treatment of: (infection on right foot); Treatment received by hospital/urgent care: (admitted, 2nd toe amputation on right foot); Patient's condition has: improved; Hospital records available at the time of this visit: Yes 59 year old female who presents to the office today for a hospital follow up. pt states she is being followed up with Dr Weathers and having o2 treatments done in [place] Jennifer Walter, [employer] [address], [place], [address], [place] [facility] 04/14/2025 13:38:32 OBGyn Episode No OBEpisode recorded.
--- OUTSIDE RECORDS SUMMARY | 2025-06-01 10:56 | XMS_ITS | Continuity of Care Document ---
Author Organization [place] - [facility], Main Office Address [address] [place] [address] Care Team Providers Care Test Architect Name Role Phone JENNIFER MCCORD Primary Care [...] Modified By Organization Details Last Modified Time 04/17/2025 4044 BACKGROUND 59 y/o female diabetic with moderately [...] MD ____ ____ Session notes Today's date: 17Apr2025 Session # 12 of 40 planed Next planned HBOT: 18Apr2025 22May - Found safe for HBOT this [...] session uneventfully. Tomorrow she returns to her leak detection engineer for follow up. NATHAN DONIS 28May - not here due to conflicting medical appointment. NATHAN DONIS 29May - Cleared for HBOT this date and completed full session without problem. NATHAN DONIS 30May - Found safe for HBOT this date and completed full session without problem. She has also been back to see her Three Dimensional Art Instructor, Dr Catherine Weathers, who Ms Shepherd states was pleased with progress. NATHAN DONIS 02Jun - Patient cleared for HBOT today. VS stable. FSBG within range. Patient completed full session with no problem. Lg Agudelo APRN 03Jun - We received last week's note from her leak detection engineer and Dr Weathers expressed satisfaction with progress. Case reviewed today and note she has 20 more Sessions authorized. To get more sessions authorized will require unresolved remaining issues which will need to be carefully assessed. [facility] 04Eriberto - Cleared for HBOT this date and completed full session without problem. NATHAN DONIS 05Eriberto - Deemed safe for HBOT this date and completed full session free of problem. [facility] [email or web address] Not available 04/17/2025 15:57:13 Reason for Referral None Reported. Procedures Surgical History Date Name Laterality Status Provider Name and Address Organization Details Recorded Time 05/27/20 25 [facility] Therapy Treatment Form completed [facility] 05/27/2025 09:45:15 05/26/20 25 [facility] Therapy Treatment Form completed [facility] - [facility] 05/26/2025 09:41:49 05/23/20 25 [facility] Therapy Treatment Form completed [facility] 05/23/2025 09:53:41 05/22/20 25 [facility] Therapy Treatment Form completed [facility] 05/22/2025 09:49:19 05/21/20 25 [facility] Therapy Treatment Form completed [facility] 05/21/2025 09:56:08 05/20/20 25 [facility] Therapy Treatment Form completed [facility] 05/20/2025 09:41:29 05/19/20 25 [facility] Therapy Treatment Form completed [facility] 05/19/2025 09:45:34 05/16/20 25 [facility] Therapy Treatment Form completed [facility] 05/16/2025 09:41:57 05/15/20 25 [facility] Therapy Treatment Form completed [facility] 05/15/2025 09:46:49 05/14/20 25 [facility] Therapy Treatment Form completed [facility] 05/14/2025 14:06:43 05/13/20 25 [facility] Therapy Treatment Form completed [facility] 05/13/2025 14:14:00 05/12/20 25 [facility] Therapy Treatment Form completed [facility] 05/12/2025 14:06:32 05/09/20 25 [facility] Therapy Treatment Form completed [facility] 05/09/2025 14:20:41 05/08/20 25 [facility] Therapy Treatment Form completed [facility] 05/08/2025 14:16:34 05/07/20 25 [facility] Therapy Treatment Form completed [facility] 05/07/2025 14:34:11 05/06/20 25 [facility] Therapy Treatment Form completed [facility] 05/06/2025 14:33:30 05/05/20 25 [facility] Therapy Treatment Form completed [facility] 05/05/2025 14:39:41 05/02/20 25 [facility] Therapy Treatment Form completed [facility] 05/02/2025 14:38:10 05/01/20 25 [facility] Therapy Treatment Form completed [facility] 05/01/2025 14:30:47 04/30/20 25 [facility] Therapy Treatment Form completed [facility] 04/30/2025 14:50:00 04/29/20 25 [facility] Therapy Treatment Form completed Zulyeka Morales [place] - [facility] 04/29/2025 15:42:38 04/28/20 25 [facility] Therapy Treatment Form completed [facility] 04/28/2025 13:47:28 04/25/20 25 [facility] Therapy Treatment Form completed [facility] 04/25/2025 14:24:24 04/24/20 25 [facility] Therapy Treatment Form completed Zuleyka Morales [place] - [facility] 04/24/2025 14:37:59 04/23/20 25 [facility] Therapy Treatment Form completed [facility] 04/23/2025 13:52:55 04/22/20 25 [facility] Therapy Treatment Form completed [facility] 04/22/2025 14:27:44 04/21/20 25 [facility] Therapy Treatment Form completed [facility] 04/21/2025 14:09:03 04/18/20 25 [facility] Therapy Treatment Form completed [facility] 04/18/2025 14:22:52 04/17/20 25 [facility] Therapy Treatment Form completed [facility] 04/17/2025 14:14:34 04/16/20 25 [facility] Therapy Treatment Form completed [facility] 04/16/2025 14:24:52 04/15/20 25 [facility] Therapy Treatment Form completed [facility] 04/15/2025 14:43:45 04/14/20 25 [facility] Therapy Treatment Form completed [facility] 04/14/2025 14:39:53 04/11/20 25 [facility] Therapy Treatment Form completed [facility] 04/11/2025 14:38:24 04/10/20 25 [facility] Therapy Treatment Form completed [facility] 04/10/2025 14:35:50 04/08/20 25 [facility] Therapy Treatment Form completed [facility] 04/08/2025 14:29:12 04/07/20 [...] Details Last Updated DateTime 5 81 /min 18 /min 97.7 [degF] 98 % 98 % 70 /min 16 /min 98.4 [degF] 99 % 99 % 111/62 mm[Hg] 104/64 mm[Hg] [facility] 5 14:14:53 Social History None recorded. Functional Status None [...] Mariano Farley MD Main Office [address] [address] [place] [address] 04/03/2025 13:39:59 04/03/2025 16:50:46 [id number] Mariano Farley MD Main Office [address],[facility] [address] [place] [address] 04/03/2025 15:32:51 04/03/2025 18:10:03 [id number] Mariano Farley MD Main Office [address],[facility] [address] [place] [address] 04/04/2025 15:39:00 04/08/2025 08:19:46 [id number] Mariano Farley MD Main Office [address] [place] [address] 04/05/2025 10:12:41 04/08/2025 08:22:20 [id number] Mariano Farley MD Main Office [address] [place] [address] 04/06/2025 10:28:04 04/08/2025 08:26:15 [id number] Mariano Farley MD Main Office [address] [place] [address] 04/07/2025 09:45:56 04/08/2025 08:30:09 [id number] Mariano Farley MD Main Office [address] [place] [address] 04/08/2025 12:11:52 04/08/2025 18:52:34 [id number] Mariano Farley MD Main Office [address] [place] [address] 04/10/2025 12:15:32 04/11/2025 13:41:15 [id number] Mariano Farley MD Main Office [address] [place] [address] 04/11/2025 12:17:41 04/14/2025 08:14:43 [id number] Mariano Farley MD Main Office [address] [place] [address] 04/14/2025 12:22:08 04/14/2025 17:08:51 [id number] Mariano Farley MD Main Office [address] [place] [address] 04/15/2025 12:29:05 04/15/2025 18:07:29 4030 Mariano Farley MD Main Office [address] [place] [address] 04/16/2025 12:09:34 04/16/2025 16:28:25 [id number] Mariano Farley MD Main Office [address] [place] [address] 04/17/2025 12:00:06 04/17/2025 15:57:18 Health Concerns Section Related Observation LastModified by Organization Detai ls LastModified Time None Recorded Concern Status LastModified by Organization Details LastModified Time None Recorded Payers Encounter Date Sequence Insurance Name Policy Number Policy Gregorio Covered Member ID Gregorio Member ID Guarantor Name 04/17/2025 1 [employer] Zehra Shepherd [id number] Zehra Shepherd OBGyn Episode No OBEpisode recorded.
--- OUTSIDE RECORDS SUMMARY | 2025-06-01 10:56 | XMS_ITS | Continuity of Care Document ---
Author Organization [place] - [facility], Main Office Address [address] [place] [address] Care Team Providers Care Bridge Manager Name Role Phone JENNIFER MCCORD Primary Care [...] Modified By Organization Details Last Modified Time 04/10/2025 3955 BACKGROUND 59 y/o female diabetic with moderately [...] MD ____ ____ Session notes Today's date: 10Apr2025 Session # 7 of 40 planed Next planned HBOT: 11Apr2025 22May - Found safe for HBOT this [...] session uneventfully. Tomorrow she returns to her videotape sales representative for follow up. NATHAN DONIS 28May - not here due to conflicting medical appointment. NATHAN DONIS 29May - Cleared for HBOT this date and completed full session without problem. NATHAN DONIS [email or web address] Not available 04/11/2025 13:41:10 Reason for Referral None Reported. Procedures Surgical History Date Name Laterality Status Provider Name and Address Organization Details Recorded Time 05/27/20 [facility] Therapy Treatment Form completed Ngozi THAKKAR - [facility] 05/27/2025 09:45:15 05/26/20 25 [facility] Therapy Treatment Form completed Ngozi THAKKAR - [facility] 05/26/2025 09:41:49 05/23/20 25 [facility] Therapy Treatment Form completed [facility] - [facility] 05/23/2025 09:53:41 05/22/20 25 [facility] Therapy Treatment Form completed [facility] - [facility] 05/22/2025 09:49:19 05/21/20 25 [facility] Therapy Treatment Form completed [facility] - [facility] 05/21/2025 09:56:08 05/20/20 25 [facility] Therapy Treatment Form completed [facility] - [facility] 05/20/2025 09:41:29 05/19/20 25 [facility] Therapy Treatment Form completed [facility] - [facility] 05/19/2025 09:45:34 05/16/20 25 [facility] Therapy Treatment Form completed [facility] 05/16/2025 09:41:57 05/15/20 25 [facility] Therapy Treatment Form completed [facility] 05/15/2025 09:46:49 05/14/20 25 [facility] Therapy Treatment Form completed [facility] - [facility] 05/14/2025 14:06:43 05/13/20 25 [facility] Therapy Treatment Form completed [facility] 05/13/2025 14:14:00 05/12/20 25 [facility] Therapy Treatment Form completed [facility] - [facility] 05/12/2025 14:06:32 05/09/20 25 [facility] Therapy Treatment Form completed [facility] - [facility] 05/09/2025 14:20:41 05/08/20 25 [facility] Therapy Treatment Form completed [facility] - [facility] 05/08/2025 14:16:34 05/07/20 25 [facility] Therapy Treatment Form completed [facility] - [facility] 05/07/2025 14:34:11 05/06/20 25 [facility] Therapy Treatment Form completed [facility] - [facility] 05/06/2025 14:33:30 05/05/20 25 [facility] Therapy Treatment Form completed [facility] - [facility] 05/05/2025 14:39:41 05/02/20 25 [facility] Therapy Treatment Form completed [facility] 05/02/2025 14:38:10 05/01/20 25 [facility] Therapy Treatment Form completed [facility] - [facility] 05/01/2025 14:30:47 04/30/20 25 [facility] Therapy Treatment Form completed [facility] - [facility] 04/30/2025 14:50:00 04/29/20 25 [facility] 04/29/2025 15:42:38 04/28/20 25 [facility] Therapy Treatment Form completed [facility] - [facility] 04/28/2025 13:47:28 04/25/20 25 [facility] Therapy Treatment Form completed [facility] - [facility] 04/25/2025 14:24:24 04/24/20 25 [facility] 04/24/2025 14:37:59 04/23/20 25 [facility] Therapy Treatment Form completed [facility] - [facility] 04/23/2025 13:52:55 04/22/20 25 [facility] Therapy Treatment Form completed [facility] - [facility] 04/22/2025 14:27:44 04/21/20 25 [facility] Therapy Treatment Form completed [facility] - [facility] 04/21/2025 14:09:03 04/18/20 25 [facility] Therapy Treatment Form completed [facility] - [facility] 04/18/2025 14:22:52 04/17/20 25 [facility] Therapy Treatment Form completed [facility] - [facility] 04/17/2025 14:14:34 04/16/20 25 [facility] Therapy Treatment Form completed [facility] - [facility] 04/16/2025 14:24:52 04/15/20 25 [facility] Therapy Treatment Form completed [facility] 04/15/2025 14:43:45 04/14/20 25 [facility] Therapy Treatment Form completed [facility] - [facility] 04/14/2025 14:39:53 04/11/20 25 [facility] Therapy Treatment Form completed [facility] - [facility] 04/11/2025 14:38:24 04/10/20 25 [facility] Therapy Treatment Form completed [facility] - [facility] 04/10/2025 14:35:50 [...] 04/03/2025 13:57:07 11/13/18 84 appendectomy completed Shona HTAKKAR - [facility] 04/03/2025 13:57:28 [...] Address Organization Details Last Updated DateTime 5 87 /min 16 /min 97 [degF] 96 % 96 % 73 /min 16 /min 97.7 [degF] 98 % 98 % 125/68 mm[Hg] 109/70 mm[Hg] Ngozi gonzalez [place] - [facility] 5 14:36:11 Date Recorded Heart rate Respiratory rate Body temperature Oxygen saturation Oxygen saturation in Arterial blood by Pulse oximetry Heart rate Respiratory rate Body temperature Oxygen saturation Oxygen saturation in Arterial blood by Pulse oximetry Systolic And Diastolic Systolic And Diastolic Provider Name and Address Organization Details Last Updated DateTime 72 /min 16 /min 97.2 [degF] 94 % 94 % 80 /min 16 /min 97.7 [degF] 99 % 99 % 119/63 mm[Hg] 115/71 mm[Hg] Ngozi carlos [place] - [facility] 14:38:42 Social History None recorded. Functional Status None recorded. Mental Status None recorded. Family History Nothing Reported. Medical History Condition Response Allergies/Hayfever Y Coronary Artery Disease N Heart Problems Y Gout N Blood Diseases N Hyperthyroidism N Ear or Hearing Problems N Breast Cancer N Thyroid Problems N GI Problems N Lung Disease N Depression N COPD N Hypothyroidism N Developmental or Behavioral Disorders N Skin [...] Mariano Farley MD Main Office [address],[facility] [address] [place] [address] 04/03/2025 13:39:59 04/03/2025 16:50:46 [id number] Mariano Farley MD Main Office [address],[facility] [address] [place] [address] 04/03/2025 15:32:51 04/03/2025 18:10:03 3904 Mariano Farley MD Main Office [address] [address] 04/04/2025 15:39:00 04/08/2025 08:19:46 [id number] Mariano Farley MD Main Office [address] [address] 04/05/2025 10:12:41 04/08/2025 08:22:20 3912 Mariano Farley MD Main Office [address] [place] [address] 04/06/2025 10:28:04 04/08/2025 08:26:15 3913 Mariano Farley MD Main Office [address] [place] [address] 04/07/2025 09:45:56 04/08/2025 08:30:09 3923 Mariano Farley MD Main Office [address] [place] [address] 04/08/2025 12:11:52 04/08/2025 18:52:34 [id number] Mariano Farley MD Main Office [address] [place] [address] 04/10/2025 12:15:32 04/11/2025 13:41:15 Health Concerns Section Related Observation LastModified by Organization Detai ls LastModified Time None Recorded Concern Status LastModified by Organization Details LastModified Time None Recorded Payers Encounter Date Sequence Insurance Name Policy Number Policy Gregorio Covered Member ID Gregorio Member ID Guarantor Name 04/10/2025 1 [employer] Zehra Sanor [id number] Zehra Sanor OBGyn Episode No OBEpisode recorded.
[2025-06-01 10:57] VITALS: BP 120/73; PULSE 72; RESP 16; TEMP 36.8; O2SAT 100; BMI 27.8
--- OUTSIDE RECORDS SUMMARY | 2025-06-01 10:57 | XMS_ITS | Continuity of Care Document ---
Author Organization [place] - [facility], Main Office Address [address] [place] [address] Care Team Providers Care Speech Therapist Name Role Phone JENNIFER MCCORD Primary Care [...] Modified By Organization Details Last Modified Time 05/07/2025 4302 BACKGROUND 59 y/o female diabetic with moderately [...] MD ____ ____ Session notes Today's date: 07May2025 Session # 26 of 40 planed Next planned HBOT: 08May2025 22May - Found safe for HBOT this [...] session uneventfully. Tomorrow she returns to her novelty chain maker for follow up. NATHAN DONIS 28May - not here due to conflicting medical appointment. NATHAN DONIS 29May - Cleared for HBOT this date and completed full session without problem. NATHAN DONIS 30May - Found safe for HBOT this date and completed full session without problem. She has also been back to see her Ruby Rails Developer, Dr Catherine Weathers, who Ms Shepherd states was pleased with progress. NATHAN DONIS 02Jun - Patient cleared for HBOT today. VS stable. FSBG within range. Patient completed full session with no problem. Lg Agudelo APRN 03Jun - We received last week's note from her novelty chain maker and Dr Weathers expressed satisfaction with progress. [...] full session with no problem. Lg Agudelo STRIPPER AND TAPER 10Jun - Patient cleared for HBOT today. VS stable. FSBG within range. Patient completed full session with no problem. Lg Agudelo STRIPPER AND TAPER 11Jun - Patient deemed safe for HBOT [...] full session with no problem. Lg Agudelo STRIPPER AND TAPER 17Jun - Patient deemed safe for HBOT today. VS stable. FSBG within range. Patient completed full session with no problem. Lg Agudelo APRN 18un - Patient deemed safe for HBOT today. VS stable. FSBG within range. Patient completed full session with no problem. Lg Agudelo STRIPPER AND TAPER 19Jun - Patient deemed safe for HBOT today. VS stable. FSBG within range. Patient completed full session with no problem. Lg Agudelo APRN 20Jun - Arrived today without knee scooter; her novelty chain maker has advised can do without. Cleared for HBOT this date and completed full session without problem. NATHAN DONIS 23Jun - Patient deemed safe for HBOT today. VS stable. FSBG within range. Patient completed full session with no problem. Lg Agudelo APRN 24Jun - Patient deemed safe for HBOT today. VS stable. FSBG within range. Patient completed full session with no problem. Julio CesarMaria DoloresYasirMaria Dolores Agudelo STRIPPER AND TAPER 25Jun - Patient cleared for HBOT today. VS stable. FSBG within range. Patient completed full session with no problem. Lg Agudelo STRIPPER AND TAPER Not available 05/07/2025 14:53:18 Reason for Referral None Reported. Procedures Surgical History Date Name Laterality Status Provider Name and Address Organization Details Recorded Time 05/27/20 25 [facility] Therapy Treatment Form completed [facility] - [facility] 05/27/2025 09:45:15 05/26/20 25 [facility] Therapy Treatment Form completed [facility] 05/26/2025 09:41:49 05/23/20 25 [facility] Therapy Treatment Form completed [facility] 05/23/2025 09:53:41 05/22/20 25 [facility] Therapy Treatment Form completed [facility] 05/22/2025 09:49:19 05/21/20 25 [facility] Therapy Treatment Form completed [facility] - [facility] 05/21/2025 09:56:08 05/20/20 25 [facility] Therapy Treatment Form completed [facility] - [facility] 05/20/2025 09:41:29 05/19/20 25 [facility] Therapy Treatment Form completed [facility] 05/19/2025 09:45:34 05/16/20 25 [facility] Therapy Treatment Form completed [facility] - [facility] 05/16/2025 09:41:57 05/15/20 25 [facility] Therapy Treatment Form completed [facility] - [facility] 05/15/2025 09:46:49 05/14/20 25 [facility] Therapy Treatment Form completed [facility] 05/14/2025 14:06:43 05/13/20 25 [facility] Therapy Treatment Form completed [facility] 05/13/2025 14:14:00 05/12/20 25 [facility] Therapy Treatment Form completed [facility] - [facility] 05/12/2025 14:06:32 05/09/20 25 [facility] Therapy Treatment Form completed [facility] 05/09/2025 14:20:41 05/08/20 25 [facility] Therapy Treatment Form completed [facility] - [facility] 05/08/2025 14:16:34 05/07/20 25 [facility] Therapy Treatment Form completed [facility] - [facility] 05/07/2025 14:34:11 05/06/20 25 [facility] Therapy Treatment Form completed [facility] 05/06/2025 14:33:30 05/05/20 25 [facility] Therapy Treatment Form completed [facility] 05/05/2025 14:39:41 05/02/20 25 [facility] Therapy Treatment Form completed [facility] 05/02/2025 14:38:10 05/01/20 25 [facility] Therapy Treatment Form completed [facility] 05/01/2025 14:30:47 04/30/20 25 [facility] Therapy Treatment Form completed [facility] 04/30/2025 14:50:00 04/29/20 25 [facility] 04/29/2025 15:42:38 04/28/20 25 [facility] Therapy Treatment Form completed [facility] - [facility] 04/28/2025 13:47:28 04/25/20 25 [facility] Therapy Treatment Form completed [facility] 04/25/2025 14:24:24 04/24/20 25 [facility] Therapy [facility] 04/24/2025 14:37:59 04/23/20 25 [facility] Therapy Treatment Form completed [facility] 04/23/2025 13:52:55 04/22/20 25 [facility] Therapy Treatment Form completed [facility] 04/22/2025 14:27:44 04/21/20 25 [facility] Therapy Treatment Form completed [facility] 04/21/2025 14:09:03 04/18/20 25 [facility] Therapy Treatment Form completed [facility] - [facility] 04/18/2025 14:22:52 04/17/20 25 [facility] Therapy Treatment Form completed [facility] - [facility] 04/17/2025 14:14:34 04/16/20 25 [facility] Therapy Treatment Form completed Ngozi carlos [place] - [facility] 04/16/2025 14:24:52 04/15/20 25 [facility] Therapy Treatment Form completed [facility] - [facility] 04/15/2025 14:43:45 04/14/20 25 [facility] Therapy Treatment Form completed [facility] [place] - [facility] 04/14/2025 14:39:53 04/11/20 25 [facility] Therapy Treatment Form completed [facility] - [facility] 04/11/2025 14:38:24 04/10/20 25 [facility] Therapy Treatment Form completed [facility] - [facility] 04/10/2025 14:35:50 04/08/20 25 [facility] Therapy Treatment Form completed [facility] - [facility] 04/08/2025 14:29:12 04/07/20 [...] 11/13/19 23 biopsy of skin completed Shona Marie [facility] 04/03/2025 14:10:49 11/13/19 [...] 13:57:28 11/13/18 77 tonsillectomy and adenoidectomy completed Shnoa THAKKAR - [facility] 04/03/2025 13:57:37 [...] Updated DateTime 5 85 /min 16 /min 98.2 [degF] 93 % 93 % 71 /min 16 /min 97.5 [degF] 100 % 100 % 118/72 mm[Hg] 114/76 mm[Hg] [facility] 5 14:34:29 Social History None recorded. Functional Status None recorded. Mental Status None recorded. Family History Nothing Reported. Medical History Condition Response Coronary Artery Disease N Gout N Blood Diseases N Hyperthyroidism N Depression N COPD N Anxiety Disorder N Muscle, Joint, or Bone Problems N Arthritis Y Cancer Y Stroke N Headaches N Fibromyalgia N Kidney Disease N Heart Problems Y Ear or Hearing Problems N Skin Problems Y AIDS/HIV N Asthma N Chronic Ear Infections N Breast Cancer N Lung Disease N Hypothyroidism N Developmental or Behavioral Disorders N Endometriosis N Bladder or Kidney Problems N Liver Disease Y Allergies/Hayfever Y Thyroid Problems N GI Problems N Anemia N Diabetes Y Seizures/Epilepsy N Congestive Heart Failure (CHF) N Diverticulitis N Heart Disease N Hypertension N Osteoporosis N Gynecological HistoryNo gynecological history recorded. Obstetrics History GPAL:G 0 P 0 0 0 0 Past Encounters Encounter ID Performer Location Encounter Start Date Encounter Closed Date Diagnosis/Indication Diagnosis SNOMED-CT Code Diagnosis ICD10 Code Diagnosis Note [id number] Mariano Farley MD Main Office [address] [place] [address] 04/06/2025 10:28:04 04/08/2025 08:26:15 [id number] Mariano Farley MD Main Office [address] [place] [address] 04/07/2025 09:45:56 04/08/2025 08:30:09 [id number] Mariano Farley MD Main Office [address] [place] [address] 04/08/2025 12:11:52 04/08/2025 18:52:34 [id number] Mariano Farley MD Main Office [address] [place] [address] 04/10/2025 12:15:32 04/11/2025 13:41:15 [id number] Mariano Farley MD Main Office [address] [place] [address] 04/11/2025 12:17:41 04/14/2025 08:14:43 [id number] Mariano Farley MD Main Office [address] [place] [address] 04/14/2025 12:22:08 04/14/2025 17:08:51 [id number] Mariano Farley MD Main Office [address] [place] [address] 04/15/2025 12:29:05 04/15/2025 18:07:29 [id number] Mariano Farley MD Main Office [address] [place] [address] 04/16/2025 12:09:34 04/16/2025 16:28:25 [id number] Mariano Farley MD Main Office [address] [place] [address] 04/17/2025 12:00:06 04/17/2025 15:57:18 [id number] Mariano Farley MD Main Office [address] [place] [address] 04/18/2025 12:10:37 04/18/2025 17:06:48 [id number] Mariano Farley MD Main Office [address] [place] [address] 04/21/2025 11:56:08 04/21/2025 16:04:26 [id number] Mariano Farley MD Main Office [address] [place] [address] 04/22/2025 11:58:46 04/22/2025 14:50:54 [id number] Mariano Farley MD Main Office [address] [place] [address] 04/23/2025 11:38:35 04/23/2025 14:47:00 [id number] Mariano Farlye MD Main Office [address] [place] [address] 04/24/2025 12:20:48 04/24/2025 15:34:39 [id number] Mariano Farley MD Main Office [address] [place] , [place] [address] 04/25/2025 12:14:52 04/30/2025 15:40:51 [id number] Mariano Farley MD Main Office [address] [place] , [place] [address] 04/28/2025 11:33:32 05/01/2025 08:04:21 [id number] Mariano Farley MD Main Office [address] [place] [address] 04/29/2025 13:00:52 05/01/2025 08:57:14 [id number] Mariano Farley MD Main Office [address] [place] , [place] [address] 04/30/2025 12:43:07 05/01/2025 09:26:34 [id number] Mariano Farley MD Main Office [address] [place] , [place] [address] 05/01/2025 12:24:55 05/01/2025 15:28:20 [id number] Mariano Farley MD Main Office [address] [place] , [place] [address] 05/02/2025 12:29:37 05/05/2025 01:36:37 [id number] Mariano Farley MD Main Office [address] [place] , [place] [address] 05/05/2025 12:35:08 05/05/2025 15:28:24 [id number] Mariano Farley MD Main Office [address] [place] , [place] [address] 05/06/2025 12:22:35 05/06/2025 17:17:12 [id number] Mariano Farley MD Main Office [address] [place] , [place] [address] 05/07/2025 12:27:25 05/07/2025 14:53:23 Health Concerns Section Related Observation LastModified by Organization Detai ls LastModified Time None Recorded Concern Status LastModified by Organization Details LastModified Time None Recorded Payers Encounter Date Sequence Insurance Name Policy Number Policy Gregorio Covered Member ID Gregorio Member ID Guarantor Name 05/07/2025 1 [place] Zehra Shepherd [id number] Zehra Shepherd OBGydolores Episode No OBEpisode recorded.
--- OUTSIDE RECORDS SUMMARY | 2025-06-01 10:57 | XMS_ITS | Clinical Summary ---
Author Organization [employer] ([place], [place], [place], [place]) Address [address] [place] [address] Care Team Providers Care Trencher Driver Name Role Phone Amalia Walter Primary Care Provider [phone] Allergies Active Allergy Reactions Criticality Noted Date [...] Date Tien rded Speak language other than Fijian at home Not on file 03/12/2024 Want [...] Completed 01/12/2021, Medical Devices Implanted Type Area Escrow Clerk Device Identifier Shelf Expiration Date Model / Serial / Lot Psn Keel Spkd 0 Sz F Oss L [id number]- 01 - [id number] Implanted:Qt y: 1 on 04/17/2024 at [facility] [employer] Left: Knee RUPERT:RUPERT [id number] 07/07/2033 42-5350-0 75-01 / / [id number] Psn Fem Cr Pps Cocr Nrw Sz9 L [id number]- 01 - [id number] Implanted:Qt y: 1 on 04/17/2024 at [facility] [employer] Left: Knee RUPERT:RUPERT [id number] 02/14/2033 42-5080-0 66-01 / / [id number] Psn Art Surf 10mm 8-11/E-F Lt 40-4887-330- 10 - [id number] Implanted:Qt y: 1 on 04/17/2024 at [facility] [employer] Left: Knee RUPERT:RUPERT [id number] 12/20/2028 42-5121-0 08-10 / / [id number] Procedures Procedure Name Priority Date/Time Associated Diagnosis Comments HEMOGLOBIN A1C Routine 04/09/2024 2:56 PM EDT Preop testing from Last 3 Months or Most Recently Relevant to Health Maintenance Results * Hemoglobin A1c (04/09/2024 2:56 PM EDT) Hemoglobin A1C 6.5 % 04/09/2024 6:57 PM EDT [facility] Comment: Hemoglobin A1C levels are related to mean glucose during the preceding 2-3 months. Less than 7% demonstrates glycemic control in diabetic patients. Hemoglobin AlC % Suggested Diagnosis > or = 6.5 Diabetic 5.7 - 6.4 Prediabetic <5.7 Non-diabetic eAVG Glucose 139.85 mg/dL 04/09/2024 6:57 PM EDT [facility] Blood Venipuncture / Unknown 04/09/2024 2:56 PM EDT 04/09/2024 4:30 PM EDT Nicholas Castro MD LAB BLOOD ORDERABLES Final Result [facility] [address] [id number] [phone] from Last 3 Months or Most Recently Relevant to Health Maintenance Insurance BLUE CROSS/BLUE SHIELD Advance Directives For more information, please contact: [phone] * Full Code (Latest Code Status on File) Date Activated Date Inactivated Comments 04/17/2024 1:15 PM 04/18/2024 2:19 PM * Full Code Date Activated Date Inactivated Comments 04/17/2024 7:55 AM 04/17/2024 1:15 PM Care Teams Trencher Driver Relationship Specialty Start Date End Date Amalia Walter [address] [place] [address] (work) PCP - General 04/09/24
--- OUTSIDE RECORDS SUMMARY | 2025-06-01 10:57 | XMS_ITS | Continuity of Care Document ---
[facility] Address [address] [place] [address] Care Team Providers Care Lens Inserter Name Role Phone JENNIFER WALTER Primary Care Provider Assessment No assessment recorded. Plan of Treatment Reminders Order Date Submit Date Provider Last Modified By Organization Details Last Modified Time Details Appointments Follow Up 2024 05:00P M Jennifer Walter APRN Not available Not available Not available Lab None recorded. Referral None recorded. Procedures None recorded. Surgeries None recorded. Imaging None recorded. Medication Orders Jardiance 10 mg tablet 2024 025 [facility], [address], [place], [address], 05/27/2025 16:43:55 metformin ER 500 mg tablet,ex tended release 24 hr 2024 025 [facility], [address], [place], [address], 05/27/2025 16:43:56 gabapenti n 400 mg capsule 2024 025 [facility] - [email or web address], [address], [place], [address], 05/27/2025 16:43:56 Patient TargetsNo targets recorded. Patient InstructionsNo instructions recorded. Reason for Referral None Reported. Results Created Date Observation Date Name Description Value Unit Range Abnormal Flag Note LastModifiedBy Organization Detail LastModifiedTime 05/20/2005/20/2025 XR, foot, 3 or more view No observ ation record ed. [facility] [address], [place], [address], 05/23/2025 08:22:56 Result Notes None recorded. Problems Name Problem SNOMED Code Status Onset Date Resolution Date Notes Provider Name and Address Organization Details Recorded Time Diabetes mellitus 45852715 Active Not Available [facility] 3 03:20:06 Neuropathy 224834083 Active 2021 Not Available [facility] 3 03:20:05 Arthritis 8138425 Active 2022 Not Available [facility] 3 03:20:05 Basal cell carcinoma of skin 624980008 Active 2022 Jennifer Walter APRN [address], [place], [address] , [facility] 3 10:22:52 Coronary arteriosclero sis 40999827 Active 2024 Jennifer Walter APRN [address], [place], [address] , [facility] 5 08:50:23 Problem Notes None recorded. Procedures Surgical History Date Name Laterality Status Provider Name and Address Organization Details Recorded Time 04/14/20 25 Medication Reconcilliation completed Zenaida Rae [place] - [facility] 04/14/2025 09:55:25 03/26/20 25 amputation of toe completed Zenaida Rae [place] - [facility] 04/14/2025 10:07:57 06/18/20 24 EXCISION OF CYST (SURG) completed Jennifer Walter APRN [address], [place], [address], [place] - [facility] 06/20/2024 08:09:44 05/23/20 24 EXCISION OF CYST (SURG) completed Jennifer Walter APRN [address], [place], [address], [place] - [facility] 05/24/2024 08:41:37 03/16/20 24 EXCISION OF CYST (SURG) completed Jennifer Walter APRN [address], [place], [address], [place] - [facility] 04/16/2024 15:15:10 02/13/20 22 Date of Last Pap Smear completed Sara Chacko [place] - [facility] 06/17/2022 09:12:37 08/27/20 21 Knee Surgery completed Sara Chacko [place] - [facility] 06/17/2022 09:06:11 08/22/20 21 Colposcopy completed Sara Ginna [place] - [facility] 06/17/2022 09:06:10 07/14/20 21 Date of Last Mammogram completed Sara Ginna [place] - [facility] 06/17/2022 09:12:20 07/14/20 21 Date of Last Colonoscopy completed Sara Chacko [place] - [facility] 06/17/2022 09:12:30 03/16/20 15 dental surgery completed Sara Chacko [place] - [facility] 06/17/2022 09:06:11 11/13/19 04 Cyrosurgery of Cervix completed Sara Chacko [place] - [facility] 06/17/2022 09:06:11 04/16/19 92 Caesarean Section completed Sara Chacko [place] - [facility] 06/17/2022 09:06:11 11/13/18 84 Appendectomy completed Sara Chacko [place] - [facility] 06/17/2022 09:06:11 11/13/18 77 Tonsillectomy completed Sara Chacko [place] - [facility] 06/17/2022 09:06:11 Cardiac Cath completed Sara Chacko [place] - [facility] 06/22/2023 14:20:39 Imaging Results None [...] day by oral route for 30 days. 2024 active Not Available Not Available Not [...] us 0.5 mg (100 million cell) tablet 07/23 /2024 completed Not Available Not Available Not [...] height Body mass index (BMI) Body weight Oxygen saturation Oxygen saturation in Arterial blood by Pulse oximetry Respiratory rate Heart rate Systolic And Diastolic Provider Name and Address Organization Details Last Updated DateTime 5 175.26 cm 27.8 kg/m2 96199.3 7 g 98 % 98 % 18 /min 79 /min 118/78 mm[Hg] Sara Orellanaler [place] - [facility] 5 16:25:53 Social History Question Answer Notes LastModified by Organizat ion Details LastModified Time Tobacco Smoking Status Former Smoker Sara Ginna null, [place] - [facility] 06/17/2022 09:06:11 Do You [...] Or The Highest Degree You Have Received? EF17476-2 Information not available 06/17/2022 When Did You Quit Smoking? 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 EC5604-2 Information not available 06/17/2022 Do you have [...] Time zoster recombinant 0 completed [facility] 05/09/2023 03:20:06 zoster recombinant 1 completed Not Available [facility] 05/09/2023 03:20:06 Influenza, split virus, quadrivalent, preservative 1 completed Not Available [facility] 12/21/2023 15:47:54 Influenza, split virus, quadrivalent, PF 7 completed Not Available [facility] 05/09/2023 03:20:06 influenza, split (incl. purified surface antigen) 3 completed Not Available [facility] 05/09/2023 03:20:06 Influenza, split virus, quadrivalent, PF 0 completed Not Available [facility] 05/09/2023 03:20:06 Hep A-Hep B 9 completed Not Available [facility] 05/09/2023 03:20:06 Hep A-Hep B 8 completed Not Available [facility] 05/09/2023 03:20:06 Influenza, split virus, quadrivalent, PF 9 completed Not Available [facility] 05/09/2023 03:20:06 Hep A-Hep B 8 completed Not Available [facility] 05/09/2023 03:20:06 Influenza, split virus, quadrivalent, PF 8 completed Not Available [facility] 05/09/2023 03:20:06 Influenza, split virus, quadrivalent, PF 1 completed Not Available [facility] 05/09/2023 03:20:06 Past Encounters Encounter ID Performer Location Encounter Start Date Encounter Closed Date Diagnosis/Indication Diagnosis SNOMED-CT Code Diagnosis ICD10 Code Diagnosis Note [id number] [facility] [address] [address] 05/27/2025 15:19:58 05/27/2025 16:45:54 Diabetes mellitus 13519270 E11.9 *Diabetic Measures:M etformin:y esACE/ARB: yesASA:yes Statin:yes GLP:yesa1c 7.9% Neuropathy 260854756 G62 .9 Pt compliant with plan of careKasper reviewedme dication compliance discussedc sa obtainedud s:02/25/25 Health Concerns Section Related Observation LastModified by Organization Detai ls LastModified Time None Recorded Concern Status LastModified by Organization Details LastModified Time None Recorded Payers Encounter Date Sequence Insurance Name Policy Number Policy Gregorio Covered Member ID Gregorio Member ID Guarantor Name 05/27/2025 1 [place] [id number] Zehra Shepherd [id number] Zehra Shepherd Notes Date Note Type Note Provider Name and Address Organization Details Recorded Time 05/27/2025 text/html 59 yr old female presents for a diabetic follow up and refill on some of her medications.pt states she had tow ange and is doing o2 therapy- wound healedpt states gabapentin helps with neuropathy Jennifer Walter, [employer] [address], [place], [address], [place] - [facility] 05/27/2025 16:43:57 OBGyn Episode No OBEpisode recorded.
--- OUTSIDE RECORDS SUMMARY | 2025-06-01 10:57 | XMS_ITS | Continuity of Care Document ---
Author Organization [place] - [facility], Main Office Address [address] [place] [address] Care Team Providers Care Equalizing Saw Operator Name Role Phone JENNIFER MCCORD Primary [...] Modified By Organization Details Last Modified Time 04/08/2025 3923 BACKGROUND 59 y/o female diabetic with moderately [...] MD ____ ____ Session notes Today's date: 08Apr2025 Session # 6 of 40 planed Next planned HBOT: 10Apr2025 22Ma - Found safe for HBOT this date [...] session uneventfully. Tomorrow she returns to her operations assistant for follow up. NATHAN DONIS [email or web address] Not available 04/11/2025 13:43:06 Reason for Referral None Reported. Procedures Surgical History Date Name Laterality Status Provider Name and Address Organization Details Recorded Time 05/27/20 [facility] Therapy Treatment Form completed [facility] 05/27/2025 09:45:15 05/26/20 25 [facility] Therapy Treatment Form completed [place] carlos [place] - [facility] 05/26/2025 09:41:49 05/23/20 25 [facility] Therapy Treatment Form completed [place] car[place] - [facility] 05/23/2025 09:53:41 05/22/20 25 [facility] Therapy Treatment Form completed [facility] 05/22/2025 09:49:19 05/21/20 25 [facility] Therapy Treatment Form completed [facility] - [facility] 05/21/2025 09:56:08 05/20/20 25 [facility] Therapy Treatment Form completed [facility] 05/20/2025 09:41:29 05/19/20 25 [facility] Therapy Treatment Form completed [facility] 05/19/2025 09:45:34 05/16/20 25 [facility] Therapy Treatment Form completed [facility] 05/16/2025 09:41:57 05/15/20 25 [facility] Therapy Treatment Form completed [facility] 05/15/2025 09:46:49 05/14/20 25 [facility] Therapy Treatment Form completed [facility] 05/14/2025 14:06:43 05/13/20 25 [facility] Therapy Treatment Form completed [facility] 05/13/2025 14:14:00 05/12/20 25 [facility] Therapy Treatment Form completed [facility] 05/12/2025 14:06:32 05/09/20 25 [facility] Therapy Treatment Form completed [facility] 05/09/2025 14:20:41 05/08/20 25 [facility] Therapy Treatment Form completed [facility] 05/08/2025 14:16:34 05/07/20 25 [facility] Therapy Treatment Form completed [facility] 05/07/2025 14:34:11 05/06/20 25 [facility] Therapy Treatment Form completed [facility] 05/06/2025 14:33:30 05/05/20 25 [facility] Therapy Treatment Form completed [facility] 05/05/2025 14:39:41 05/02/20 25 [facility] Therapy Treatment Form completed [facility] 05/02/2025 14:38:10 05/01/20 25 [facility] Therapy Treatment Form completed [facility] 05/01/2025 14:30:47 04/30/20 25 [facility] Therapy Treatment Form completed [facility] 04/30/2025 14:50:00 04/29/20 25 [facility] 04/29/2025 15:42:38 04/28/20 25 [facility] Therapy Treatment Form completed [facility] 04/28/2025 13:47:28 04/25/20 25 [facility] Therapy Treatment Form completed [facility] 04/25/2025 14:24:24 04/24/20 25 [facility] Therapy Treatment Form completed Zuleyka Morales [place] - [facility] 04/24/2025 14:37:59 04/23/20 25 [facility] Therapy Treatment Form completed [facility] 04/23/2025 13:52:55 04/22/20 25 [facility] Therapy Treatment Form completed [facility] 04/22/2025 14:27:44 04/21/20 25 [facility] Therapy Treatment Form completed [facility] 04/21/2025 14:09:03 04/18/20 25 [facility] Therapy Treatment Form completed [facility] 04/18/2025 14:22:52 04/17/20 25 [facility] Therapy Treatment Form completed [facility] - [facility] 04/17/2025 14:14:34 04/16/20 25 [facility] Therapy Treatment Form completed [facility] 04/16/2025 14:24:52 04/15/20 25 [facility] Therapy Treatment Form completed [facility] 04/15/2025 14:43:45 04/14/20 25 [facility] Therapy Treatment Form completed [facility] 04/14/2025 14:39:53 04/11/20 25 [facility] Therapy Treatment Form completed [facility] 04/11/2025 14:38:24 04/10/20 25 [facility] Therapy Treatment Form completed [facility] 04/10/2025 14:35:50 04/08/20 25 [facility] Therapy Treatment Form completed [facility] 04/08/2025 14:29:12 04/07/20 [...] Therapy Treatment Form completed Mariano Farley MD [place] - [facility] 04/03/2025 18:06:39 04/03/20 25 Wound completed Shona Bellell [place] [facility] 04/03/2025 13:47:21 03/13/20 24 Knee Replacement completed Shona Napoleon [place] [facility] [...] 11/13/19 21 release of trigger finger completed Shonajesse Bender [place] - [facility] 04/03/2025 13:55:11 11/13/19 21 hammer toe operation completed Shona Bender [place] - [facility] 04/03/2025 13:55:27 11/13/19 19 procedure on shoulder completed Shonajesse Bender [place] - [facility] 04/03/2025 13:55:44 11/13/19 17 thumb surgery completed Shona Bender [facility] 04/03/2025 13:56:03 11/13/18 94 section completed Shonajesse Bender [facility] - [facility] [...] % 100 % 112/74 mm[Hg] 117/71 mm[Hg] Ngozi gonzalez [place] - [facility] 5 14:29:31 Date Recorded Heart rate Respiratory rate Body [...] 98 % 125/68 mm[Hg] 109/70 mm[Hg] Ngozi THAKK[facility] - [facility] 5 14:36:11 Date Recorded Heart rate Respiratory rate Body temperature Oxygen saturation Oxygen saturation in Arterial blood by Pulse oximetry Heart rate Respiratory rate Body temperature Oxygen saturation Oxygen saturation in Arterial blood by Pulse oximetry Systolic And Diastolic Systolic And Diastolic Provider Name and Address Organization Details Last Updated DateTime 5 72 /min 16 /min 97.2 [degF] 94 % 94 % 80 /min 16 /min 97.7 [degF] 99 % 99 % 119/63 mm[Hg] 115/71 mm[Hg] Ngozi THAKK[facility] - [facility] 5 14:38:42 Social History None recorded. Functional Status [...] [id number] Mariano Farley MD Main Office [address] [place] [address] 04/03/2025 13:39:59 04/03/2025 16:50:46 [id number] Mariano Farley MD Main Office [address] [place] [address] 04/03/2025 15:32:51 04/03/2025 18:10:03 [id number] Mariano Farley MD Main Office [address] [place] [address] 04/04/2025 15:39:00 04/08/2025 08:19:46 [id number] Mariano Farley MD Main Office [address] [place] [address] 04/05/2025 10:12:41 04/08/2025 08:22:20 [id number] Mariano Farley MD Main Office [address] [place] [address] 04/06/2025 10:28:04 04/08/2025 08:26:15 [id number] Mariano Farley MD Main Office [address] [place] [address] 04/07/2025 09:45:56 04/08/2025 08:30:09 [id number] Mariano Farley MD Main Office [address] [place] [address] 04/08/2025 12:11:52 04/08/2025 18:52:34 Health Concerns Section Related Observation LastModified by Organization Detai ls LastModified Time None Recorded Concern Status LastModified by Organization Details LastModified Time None Recorded Payers Encounter Date Sequence Insurance Name Policy Number Policy Gregorio Covered Member ID Gregorio Member ID Guarantor Name 04/08/2025 1 [employer] Zehra Shepherd [id number] Zehra Shepherd OBGyn Episode No OBEpisode recorded.
--- OUTSIDE RECORDS SUMMARY | 2025-06-01 10:57 | XMS_ITS | Continuity of Care Document ---
Author Organization [place] - [facility], Main Office Address [address] [place] [address] Care Team Providers Care Elementary Secretary Name Role Phone JENNIFER MCCORD Primary Care [...] Modified By Organization Details Last Modified Time 05/20/2025 4415 BACKGROUND 59 y/o female diabetic with moderately [...] MD ____ ____ Session notes Today's date: 20May2025 Session # 35 of 40 planed Next planned HBOT: 21May2025 22May - Found safe for HBOT this [...] session uneventfully. 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 NATHAN DONIS 28May - not here due to conflicting medical appointment. NATHAN DONIS 29May - Cleared for HBOT this date and completed full session without problem. NATHAN DONIS 30May - Found safe for HBOT this date and completed full session without problem. She has also been back to see her Way Inspector, Dr Catherine Weathers, who Ms Shepherd states was pleased with progress. NATHAN DONIS 02Jun - Patient cleared for HBOT today. VS stable. FSBG within range. Patient completed full session with no problem. Lg Agudelo APRN 03Jun - We received last week's note from her children's tutor nursery and Dr Weathers expressed satisfaction with progress. [...] full session with no problem. Lg Agudelo WEATHERCASTER 10Jun - Patient cleared for HBOT today. [...] full session with no problem. Lg Agudelo WEATHERCASTER 19Jun - Patient deemed safe for HBOT today. VS stable. FSBG within range. Patient completed full session with no problem. Lg Agudelo APRN 20Jun - Arrived today without knee scooter; her children's tutor nursery has advised can do without. Cleared for HBOT this date and completed full session without problem. NATHAN DONIS 23Jun - Patient deemed safe for HBOT today. VS stable. FSBG within range. Patient completed full session with no problem. Lg Agudelo APRN 24Jun - Patient deemed safe for HBOT today. VS stable. FSBG within range. Patient completed full session with no problem. Lg Agudelo WEATHERCASTER 25Jun - Patient cleared for HBOT today. VS stable. FSBG within range. Patient completed full session with no problem. gL Agudelo WEATHERCASTER 26Jun - Patient cleared for HBOT today. VS stable. FSBG within range. Patient completed full session with no problem. Lg Agudelo WEATHERCASTER 27Jun - Found safe for HBOT this [...] date and completed full session without complaint. Jennifer DONIS 03Jul - Again cleared for HBOT and completed full session uneventfully. Jennifer DONIS 04Ju; - Found safe for HBOT this date and completed full session free of problem. NATHAN DONIS 07Jul - Cleared as safe for HBOT this date and completed full session free of problem. Jennifer DONIS 08Jul - Deemed safe for HBOT this date and completed full session with no problem. [facility] MD [email or web address] Not available 05/21/2025 10:50:41 Reason for Referral None Reported. Procedures Surgical History Date Name Laterality Status Provider Name and Address Organization Details Recorded Time 05/27/20 25 [facility] Therapy Treatment Form completed [facility] - [facility] 05/27/2025 09:45:15 05/26/20 25 [facility] Therapy Treatment Form completed [facility] - [facility] 05/26/2025 09:41:49 05/23/20 25 [facility] Therapy Treatment Form completed [facility] - [facility] 05/23/2025 09:53:41 05/22/20 25 [facility] Therapy Treatment Form completed [facility] - [facility] 05/22/2025 09:49:19 05/21/20 25 [facility] Therapy Treatment Form completed [facility] - [facility] 05/21/2025 09:56:08 05/20/20 25 [facility] Therapy Treatment Form completed [facility] - [facility] 05/20/2025 09:41:29 05/19/20 25 [facility] Therapy Treatment Form completed [facility] - [facility] 05/19/2025 09:45:34 05/16/20 25 [facility] Therapy Treatment Form completed [facility] - [facility] 05/16/2025 09:41:57 05/15/20 25 [facility] Therapy Treatment Form completed [facility] - [facility] 05/15/2025 09:46:49 05/14/20 25 [facility] Therapy Treatment Form completed [facility] - [facility] 05/14/2025 14:06:43 05/13/20 25 [facility] Therapy Treatment Form completed [facility] - [facility] 05/13/2025 14:14:00 05/12/20 25 [facility] Therapy Treatment Form completed [facility] - [facility] 05/12/2025 14:06:32 05/09/20 25 [facility] Therapy Treatment Form completed [facility] - [facility] 05/09/2025 14:20:41 05/08/20 25 [facility] Therapy Treatment Form completed [facility] - [facility] 05/08/2025 14:16:34 05/07/20 25 [facility] Therapy Treatment Form completed [facility] - [facility] 05/07/2025 14:34:11 05/06/20 25 [facility] Therapy Treatment Form completed [facility] - [facility] 05/06/2025 14:33:30 05/05/20 25 [facility] Therapy Treatment Form completed [facility] - [facility] 05/05/2025 14:39:41 05/02/20 25 [facility] Therapy Treatment Form completed [facility] - [facility] 05/02/2025 14:38:10 05/01/20 25 [facility] Therapy Treatment Form completed [facility] - [facility] 05/01/2025 14:30:47 04/30/20 25 [facility] Therapy Treatment Form completed [facility] - [facility] 04/30/2025 14:50:00 04/29/20 25 [facility] Therapy Treatment Form completed Zuleyka Morales [place] - [facility] 04/29/2025 15:42:38 04/28/20 25 [facility] Therapy Treatment Form completed [facility] - [facility] 04/28/2025 13:47:28 04/25/20 25 [facility] Therapy Treatment Form completed [facility] - [facility] 04/25/2025 14:24:24 04/24/20 25 [facility] Therapy Treatment Form completed Zuleyka Morales [place] - [facility] 04/24/2025 14:37:59 04/23/20 25 [facility] Therapy Treatment Form completed [facility] - [facility] 04/23/2025 13:52:55 04/22/20 25 [facility] Therapy Treatment Form completed [facility] - [facility] 04/22/2025 14:27:44 04/21/20 25 [facility] Therapy Treatment Form completed [facility] - [facility] 04/21/2025 14:09:03 04/18/20 25 [facility] Therapy Treatment Form completed [facility] - [facility] 04/18/2025 14:22:52 04/17/20 25 [facility] Therapy Treatment Form completed [facility] - [facility] 04/17/2025 14:14:34 04/16/20 25 [facility] Therapy Treatment Form completed [facility] - [facility] 04/16/2025 14:24:52 04/15/20 25 [facility] Therapy Treatment Form completed [facility] - [facility] 04/15/2025 14:43:45 04/14/20 25 [facility] Therapy Treatment Form completed [facility] - [facility] 04/14/2025 14:39:53 04/11/20 25 [facility] Therapy Treatment Form completed [facility] - [facility] 04/11/2025 14:38:24 04/10/20 25 [facility] Therapy Treatment Form completed [facility] - [facility] 04/10/2025 14:35:50 04/08/20 25 [facility] Therapy Treatment Form completed [facility] - [facility] 04/08/2025 14:29:12 04/07/20 25 [facility] Therapy Treatment Form completed Nahomi Thurston [place] - [facility] 04/07/2025 11:54:59 04/06/20 25 [facility] Therapy Treatment Form completed Nahomi TitusJoye [place] - [facility] 04/06/2025 12:08:17 [...] 03/13/20 24 Knee Replacement completed Shona Bellell [place] 04/03/2025 13:56:18 04/13/20 23 coronary artery bypass grafts x 4 completed Shona Bellell [place] - [facility] 04/03/2025 13:54:46 12/14/19 23 Gallbladder Surgery completed Shona Bellell [place] - [facility] 04/03/2025 13:54:58 [...] 77 tonsillectomy and adenoidectomy completed Shona Bender [place] - [facility] 04/03/2025 13:57:37 Imaging [...] Updated DateTime 5 80 /min 16 /min 97.3 [degF] 98 % 98 % 88 /min 16 /min 97.3 [degF] 100 % 100 % 113/73 mm[Hg] 116/70 mm[Hg] Ngozi gonzalez [place] - [facility] 5 09:41:45 Date Recorded Heart rate Respiratory rate Body temperature Oxygen saturation Oxygen saturation in Arterial blood by Pulse oximetry Systolic And Diastolic Provider Name and Address Organization Details Last Updated DateTime 5 74 /min 16 /min 97.9 [degF] 99 % 99 % 118/76 mm[Hg] [facility] - [facility] 5 09:56:26 Date Recorded Heart rate Respiratory rate Body temperature Systolic And Diastolic Provider Name and Address Organization Details Last Updated DateTime 05/21/2025 77 /min 16 /min 96.6 [degF] 130/80 mm[Hg] Smita Hall [place] - [facility] 08:20:21 Social History None recorded. Functional Status None [...] SNOMED-CT Code Diagnosis ICD10 Code Diagnosis Note [id number] Mariano Farley MD Main Office [address] [place] [address] 04/21/2025 11:56:08 04/21/2025 16:04:26 4113 Mariano Farley MD Main Office [address] [place] [address] 04/22/2025 11:58:46 04/22/2025 14:50:54 [id number] Mariano Farley MD Main Office [address],[facility] [address] [place] [address] 04/23/2025 11:38:35 04/23/2025 14:47:00 [id number] Mariano Farley MD Main Office [address] [place] [address] 04/24/2025 12:20:48 04/24/2025 15:34:39 [id number] Mariano Farley MD Main Office [address] [place] [address] 04/25/2025 12:14:52 04/30/2025 15:40:51 [id number] Mariano Farley MD Main Office [address] [place] [address] 04/28/2025 11:33:32 05/01/2025 08:04:21 [id number] Mariano Farley MD Main Office [address] [place] [address] 04/29/2025 13:00:52 05/01/2025 08:57:14 [id number] Mariano Farley MD Main Office [address] [place] [address] 04/30/2025 12:43:07 05/01/2025 09:26:34 [id number] Mariano Farley MD Main Office [address] [place] [address] 05/01/2025 12:24:55 05/01/2025 15:28:20 [id number] Mariano Farley MD Main Office [address] [place] [address] 05/02/2025 12:29:37 05/05/2025 01:36:37 [id number] Mariano Farley MD Main Office [address] [place] [address] 05/05/2025 12:35:08 05/05/2025 15:28:24 [id number] Mariano Farley MD Main Office [address] [place] [address] 05/06/2025 12:22:35 05/06/2025 17:17:12 [id number] Mariano Farley MD Main Office [address] [place] [address] 05/07/2025 12:27:25 05/07/2025 14:53:23 4316 Mariano Farley MD Main Office [address] [place] [address] 05/08/2025 12:04:54 05/08/2025 15:52:07 [id number] Mariano Farley MD Main Office [address] [place] [address] 05/09/2025 12:17:15 05/09/2025 17:22:51 [email or web address] Mariano Farley MD Main Office [address] [place] [address] 05/12/2025 12:05:21 05/12/2025 19:44:55 [id number] Mariano Farley MD Main Office [address] [place] [address] 05/13/2025 11:43:11 05/13/2025 17:35:49 [id number] Mariano Farley MD Main Office [address] [place] [address] 05/14/2025 12:18:55 05/14/2025 19:59:05 [id number] Mariano Farley MD Main Office [address] [place] [address] 05/15/2025 07:47:37 05/15/2025 09:52:44 [id number] Mariano Farley MD Main Office [address] [place] [address] 05/16/2025 07:42:13 05/19/2025 06:53:35 [id number] Mariano Farley MD Main Office [address] [place] [address] 05/19/2025 07:43:50 05/20/2025 07:03:34 [id number] Mariano Farley MD Main Office [address],[place] [address] 05/20/2025 07:49:53 05/21/2025 10:50:47 Health Concerns Section Related Observation LastModified by Organization Detai ls LastModified Time None Recorded Concern Status LastModified by Organization Details LastModified Time None Recorded Payers Encounter Date Sequence Insurance Name Policy Number Policy Gregorio Covered Member ID Gregorio Member ID Guarantor Name 05/20/2025 1 [employer] Zehra Sanor [id number] Zehra Sanor OBGyn Episode No OBEpisode recorded.
--- OUTSIDE RECORDS SUMMARY | 2025-06-01 10:57 | XMS_ITS | Continuity of Care Document ---
Author Organization [place] [facility], Main Office Address [address] [place] [address] Care Team Providers Care Supervisor Operations Name Role Phone JENNIFER MCCORD Primary Care [...] Modified By Organization Details Last Modified Time 04/04/2025 3904 BACKGROUND 59 y/o female diabetic with moderately [...] MD ____ ____ Session notes Today's date: 04Apr2025 Session # 2 of 40 planed Next planned HBOT: 05Apr2025 22May - Found safe for HBOT this [...] and completed full session with no problem. [facility] [email or web address] Not available 04/08/2025 08:23:42 Reason for Referral None Reported. Procedures Surgical History Date Name Laterality Status Provider Name and Address Organization Details Recorded Time 05/27/20 25 [facility] Therapy Treatment Form completed [facility] - [facility] 05/27/2025 09:45:15 05/26/20 25 [facility] Therapy Treatment Form completed [facility] 05/26/2025 09:41:49 05/23/20 25 [facility] Therapy Treatment Form completed [facility] 05/23/2025 09:53:41 05/22/20 25 [facility] Therapy Treatment Form completed [facility] 05/22/2025 09:49:19 05/21/20 25 [facility] Therapy Treatment Form completed [facility] 05/21/2025 09:56:08 05/20/20 25 [facility] Therapy Treatment Form completed [facility] 05/20/2025 09:41:29 05/19/20 25 [facility] Therapy Treatment Form completed [facility] 05/19/2025 09:45:34 05/16/20 25 [facility] Therapy Treatment Form completed [facility] 05/16/2025 09:41:57 05/15/20 25 [facility] Therapy Treatment Form completed [facility] 05/15/2025 09:46:49 05/14/20 25 [facility] Therapy Treatment Form completed [facility] 05/14/2025 14:06:43 05/13/20 25 [facility] Therapy Treatment Form completed [facility] 05/13/2025 14:14:00 05/12/20 25 [facility] Therapy Treatment Form completed [facility] 05/12/2025 14:06:32 05/09/20 25 [facility] Therapy Treatment Form completed [facility] 05/09/2025 14:20:41 05/08/20 25 [facility] Therapy Treatment Form completed [facility] 05/08/2025 14:16:34 05/07/20 25 [facility] Therapy Treatment Form completed [facility] 05/07/2025 14:34:11 05/06/20 25 [facility] Therapy Treatment Form completed [facility] 05/06/2025 14:33:30 05/05/20 25 [facility] Therapy Treatment Form completed [facility] 05/05/2025 14:39:41 05/02/20 25 [facility] Therapy Treatment Form completed [facility] 05/02/2025 14:38:10 05/01/20 25 [facility] Therapy Treatment Form completed [facility] 05/01/2025 14:30:47 04/30/20 25 [facility] Therapy Treatment Form completed [facility] 04/30/2025 14:50:00 04/29/20 25 [facility] 04/29/2025 15:42:38 04/28/20 25 [facility] Therapy Treatment Form completed [facility] 04/28/2025 13:47:28 04/25/20 25 [facility] Therapy Treatment Form completed [facility] 04/25/2025 14:24:24 04/24/20 25 [facility] 04/24/2025 14:37:59 04/23/20 25 [facility] Therapy Treatment Form completed [facility] 04/23/2025 13:52:55 04/22/20 25 [facility] Therapy Treatment Form completed [facility] 04/22/2025 14:27:44 04/21/20 25 [facility] Therapy Treatment Form completed [facility] 04/21/2025 14:09:03 04/18/20 25 [facility] Therapy Treatment Form completed [facility] 04/18/2025 14:22:52 04/17/20 25 [facility] Therapy Treatment Form completed [facility] 04/17/2025 14:14:34 04/16/20 25 [facility] Therapy Treatment Form completed [facility] 04/16/2025 14:24:52 04/15/20 25 [facility] Therapy Treatment Form completed [facility] 04/15/2025 14:43:45 04/14/20 25 [facility] Therapy Treatment Form completed [facility] 04/14/2025 14:39:53 04/11/20 25 [facility] Therapy Treatment Form completed [facility] 04/11/2025 14:38:24 04/10/20 25 [facility] Therapy Treatment Form completed [facility] 04/10/2025 14:35:50 04/08/20 25 [facility] Therapy Treatment Form completed [facility] 04/08/2025 14:29:12 04/07/20 25 [facility] Therapy Treatment Form completed Nahomi TitusClarae [place] - [facility] 04/07/2025 11:54:59 04/06/20 25 [facility] Therapy Treatment Form completed Nahomi LaJoye [place] - [facility] 04/06/2025 12:08:17 04/05/20 25 [facility] Therapy Treatment Form completed Zuleyka Andrew [place] - [facility] 04/05/2025 11:59:40 04/04/20 25 [facility] Therapy Treatment Form completed Zuleyka Andrew [place] [facility] 04/04/2025 17:25:52 04/03/20 [...] grafts x 4 completed Shona Bellell [facility] 04/03/2025 13:54:46 12/14/19 23 Gallbladder Surgery completed Shona Bellell [facility] 04/03/2025 13:54:58 11/13/19 23 biopsy of skin [facility] 04/03/2025 14:10:49 11/13/19 21 release of trigger finger completed Shona Bellell [facility] 04/03/2025 13:55:11 11/13/19 21 [facility] 04/03/2025 13:55:27 11/13/19 19 procedure on shoulder completed Shona Bender [facility] 04/03/2025 13:55:44 11/13/19 17 thumb [facility] 04/03/2025 13:56:03 11/13/18 94 section completed Shona Napoleon [facility] 04/03/2025 13:57:12 11/13/18 92 section completed Shona Bender [facility] 04/03/2025 13:57:07 11/13/18 84 appendectomy [facility] Napoleon [facility] 04/03/2025 13:57:28 11/13/18 77 tonsillectomy and adenoidectomy completed Shona Bender [facility] 04/03/2025 13:57:37 Imaging Results [...] Address Organization Details Last Updated DateTime 5 75 /min 16 /min 96.3 [degF] 92 % 92 % 74 /min 16 /min 97.5 [degF] 100 % 100 % 121/67 mm[Hg] 107/68 mm[Hg] Zule[facility]ka [facility] [place] - [facility] 5 17:26:26 Date Recorded Heart rate Respiratory rate Body temperature Heart rate Respiratory rate Body temperature Systolic And Diastolic Systolic And Diastolic Provider Name and Address Organization Details Last Updated DateTime 5 85 /min 16 /min 96.8 [degF] 74 /min 16 /min 97 [degF] 123/76 mm[Hg] 115/76 mm[Hg] Zuleyka [facility] [place] [facility] 5 12:00:10 Date Recorded Heart rate Respiratory rate Body temperature Heart rate Respiratory rate Body temperature Oxygen saturation Oxygen saturation in Arterial blood by Pulse oximetry Systolic And Diastolic Systolic And Diastolic Provider Name and Address Organization Details Last Updated DateTime 5 64 /min 16 /min 97.3 [degF] 64 /min 16 /min 97 [degF] 99 % 99 % 115/70 mm[Hg] 121/74 mm[Hg] Nahomi Thurston [place] - [facility] 5 12:11:02 Date Recorded Heart rate Respiratory rate Body [...] [place] [facility] 5 14:29:31 Social History None recorded. Functional Status [...] MD Main Office [address] [place] [address] 04/03/2025 13:39:59 04/03/2025 16:50:46 [id number] Mariano Farley MD Main Office [address] [place] [address] 04/03/2025 15:32:51 04/03/2025 18:10:03 3904 Mariano Farley MD Main Office [address] [place] [address] 04/04/2025 15:39:00 04/08/2025 08:19:46 Health Concerns Section Related Observation LastModified by Organization Detai ls LastModified Time None Recorded Concern Status LastModified by Organization Details LastModified Time None Recorded Payers Encounter Date Sequence Insurance Name Policy Number Policy Gregorio Covered Member ID Gregorio Member ID Guarantor Name 04/04/2025 1 [id number] Zehra Shepherd [id number] Zehra Shepherd OBGyn Episode No OBEpisode recorded.
--- OUTSIDE RECORDS SUMMARY | 2025-06-01 10:57 | XMS_ITS | Data Portability ---
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 Person Name Role Phone JENNIFER MCCORD Primary Care Provider Assessment Encounter Date [...] Last Modified Time Details Appointments Follow Up 20 2024 05:00P M Jennifer Mccord APRN Not available Not available Not available Lab drug screen, urine 2024 025 [facility], [address] [place] [address], [id number], 02/25/2025 09:13:05 HbA1c (hemoglob in A1c), blood 2024 025 [facility], [address], [place], [address], 02/26/2025 12:12:04 CMP, serum or plasma 2024 025 [facility], [address], [place], [address], 02/26/2025 12:12:02 CBC w/ auto diff 2024 025 [facility], [address], [place] [address], [place], [address], 02/26/2025 12:12:01 lipid panel, serum 2024 025 [facility], [address], [place] [address], [place], [address], 02/26/2025 12:12:03 magnesium , serum or plasma 2024 025 [facility], [address], [place] [address], [place], [address], 02/26/2025 12:12:04 cobalamin and folate panel, serum 2024 025 [facility], [address], [place] [address], [place], [address], 02/26/2025 12:12:03 vitamin D, 25-hydrox y, total, serum 2024 025 [facility], [address], [place] [address], [place], [address], 02/26/2025 12:12:04 Referral None recorded. Procedures venipunct ure routine (PROC) 2023 024 cbuckler Not available 09/19/2024 16:31:58 Surgeries None recorded. Imaging None recorded. Medication Orders Jardiance 10 mg tablet 2024 025 [facility], [address], [place], [address], 05/27/2025 16:43:55 metformin ER 500 mg tablet,ex tended release 24 hr 2024 025 [facility], [address], [place], [address], 05/27/2025 16:43:56 gabapenti n 400 mg capsule 2024 025 [place] [address] - [facility], [address] [address], [place], [address], 05/27/2025 16:43:56 neomycin- polymyxin -hydrocor t 3.5 mg-10,000 unit/mL-1 % ear drops,audrey p 2024 025 [place] [address] - [facility], [address] [address], [place], [address], 05/27/2025 16:21:45 aspirin 81 mg tablet,de layed release 2024 025 [place] [address] - [facility], [address] [address], [place], [address], 02/25/2025 08:51:41 Jardiance 10 mg tablet 2024 025 [place] [address] - [facility], [address], [address], 02/25/2025 08:51:28 metformin ER 500 mg tablet,ex tended release 24 hr 2024 025 [place] [address] - [facility], [address], [address], 02/25/2025 08:51:25 Mounjaro 2.5 mg/0.5 mL subcutane ous pen injector 2024 025 [place] [address] - [facility], [address], [address], 05/27/2025 16:17:24 cyclobenz aprine 5 mg tablet 2024 025 [place] [address] - [facility], [address], [place], [address], 02/25/2025 08:51:31 losartan 25 mg tablet [address] [facility], [address], [address], 02/25/2025 08:51:27 bisoprolo l fumarate 5 mg tablet [address] [facility], [address], [address], 02/25/2025 08:51:33 rosuvasta tin 10 mg tablet [address] [facility], [address], [address], 02/25/2025 08:51:41 clopidogr el 75 mg tablet [address] [facility], [address], [address], 02/25/2025 08:51:28 diclofena c sodium 50 mg tablet,de layed release [address] [facility], [address], [address], 02/25/2025 08:51:34 valacyclo vir 500 mg tablet 2024 025 [facility], [address], [place], [address], 02/25/2025 08:51:36 fluticaso ne propionat e 50 mcg/actua tion nasal spray,audrey pension 2024 025 [facility] - [facility], [address], [place], [address], 02/25/2025 08:51:39 gabapenti n 400 mg capsule 2024 025 [facility] - [facility], [address], [place], [address], 02/25/2025 08:51:41 diclofena c sodium 50 mg tablet,de layed release 2024 025 [facility] - [facility], [address], [place], [address], 12/02/2024 10:22:42 Jardiance 10 mg tablet 2024 025 [facility] - [facility], [address], [place], [address], 12/02/2024 10:22:41 losartan 25 mg tablet 2024 025 [facility] - [facility], [address], [place], [address], 12/02/2024 10:22:39 Ozempic 2 mg/dose (8 mg/3 mL) subcutane ous pen injector 2024 025 [facility] - [facility], [address], [facility], [place], [address], 05/27/2025 16:21:18 Patient TargetsNo targets recorded. Patient InstructionsNo instructions recorded. Reason for Referral None Reported. Results Created Date Observation Date Name Description Value Unit Range Abnormal Flag Note LastModifiedBy Organization Detail LastModifiedTime 09/12/2009/13/2024 CBC WITH DIFFE RENTI AL/PL ATELE T WBC 5.0 x10e3 /uL 3.4-10 .8 normal Not Available [facility] ([facility]) [address] [place], [address], 09/13/2024 08:12:59 09/12/2009/13/2024 CBC WITH DIFFE RENTI AL/PL ATELE T RBC 4.38 x10e6 /uL 3.77-5 .28 normal Not Available [facility] ([facility]) [address] [place], [address], 09/13/2024 08:12:59 09/12/2009/13/2024 CBC WITH DIFFE RENTI AL/PL ATELE T hemoglobin 13.4 g/dL 11.1-1 5.9 normal Not Available [facility] ([facility]) [address] [place], [address], 09/13/2024 08:12:59 09/12/2009/13/2024 CBC WITH DIFFE RENTI AL/PL ATELE T hematocrit 43.1 % 34.0-4 6.6 normal Not Available [facility] ([facility]) [address] [place], [address], 09/13/2024 08:12:59 09/12/2009/13/2024 CBC WITH DIFFE RENTI AL/PL ATELE T MCV 98 fL 79-97 above high normal Not Available [facility] ([facility]) [address] [place], [address], 09/13/2024 08:12:59 09/12/2009/13/2024 CBC WITH DIFFE RENTI AL/PL ATELE T MCH 30.6 pg 26.6-3 3.0 normal Not Available [facility] ([facility]) [address] [place], [address], 09/13/2024 08:12:59 09/12/2009/13/2024 CBC WITH DIFFE RENTI AL/PL ATELE T MCHC 31.1 g/dL 31.5-3 5.7 below low normal Not Available [facility] ([facility]) [address] [facility], [place], [address], 09/13/2024 08:12:59 09/12/2009/13/2024 CBC WITH DIFFE RENTI AL/PL ATELE T RDW 13.0 % 11.7-1 5.4 Not Available [facility] ([facility]) [address] [facility], [place], [address], 09/13/2024 08:12:59 09/12/2009/13/2024 CBC WITH DIFFE RENTI AL/PL ATELE T platelets 214 x10e3 /uL 150-45 0 normal Not Available [facility] ([facility]) [address] [place], [address], 09/13/2024 08:12:59 09/12/2009/13/2024 CBC WITH DIFFE RENTI AL/PL ATELE T neutrophils 66 % not estab. normal Not Available [facility] ([facility]) [address] [place], [address], 09/13/2024 08:12:59 09/12/2009/13/2024 CBC WITH DIFFE RENTI AL/PL ATELE T lymphs 26 % not estab. normal Not Available [facility] ([facility]) [address] [place], [address], 09/13/2024 08:12:59 09/12/2009/13/2024 CBC WITH DIFFE RENTI AL/PL ATELE T monocytes 7 % not estab. normal Not Available [facility] ([facility]) [address] [facility], [place], [address], 09/13/2024 08:12:59 09/12/2009/13/2024 CBC WITH DIFFE RENTI AL/PL ATELE T eos 1 % not estab. normal Not Available [facility] ([facility]) [address] [facility], [place], [address], 09/13/2024 08:12:59 09/12/2009/13/2024 CBC WITH DIFFE RENTI AL/PL ATELE T basos 0 % not estab. normal Not Available [facility] ([facility]) [address] [facility], [place], [address], 09/13/2024 08:12:59 09/12/2009/13/2024 CBC WITH DIFFE RENTI AL/PL ATELE T immature cells BI DEVELOPER Not Available [facility] ([facility]) [address] [place], [address], 09/13/2024 08:12:59 09/12/2009/13/2024 CBC WITH DIFFE RENTI AL/PL ATELE T neutrophils (absolute) 3.2 x10e3 /uL 1.4-7. 0 normal Not Available [facility] ([facility]) [address] [place], [address], 09/13/2024 08:12:59 09/12/2009/13/2024 CBC WITH DIFFE RENTI AL/PL ATELE T lymphs (absolute) 1.3 x10e3 /uL 0.7-3. 1 normal Not Available [facility] ([facility]) [address] [place], [address], 09/13/2024 08:12:59 09/12/20 24 09/13/2024 CBC WITH DIFFE RENTI AL/PL ATELE T monocytes(ab solute) 0.4 x10e3 /uL 0.1-0. 9 normal Not Available [facility] ([facility]) [address] [facility], [place], [address], 09/13/2024 08:12:59 09/12/2009/13/2024 CBC WITH DIFFE RENTI AL/PL ATELE T eos (absolute) 0.1 x10e3 /uL 0.0-0. 4 normal Not Available [facility] ([facility]) [address] [facility], [place], [address], 09/13/2024 08:12:59 09/12/2009/13/2024 CBC WITH DIFFE RENTI AL/PL ATELE T baso (absolute) 0.0 x10e3 /uL 0.0-0. 2 normal Not Available [facility] ([facility]) [address] [facility], [place], [address], 09/13/2024 08:12:59 09/12/2009/13/2024 CBC WITH DIFFE RENTI AL/PL ATELE T immature granulocytes 0 % not estab. Not Available [facility] ([facility]) [address] [facility], [place], [address], 09/13/2024 08:12:59 09/12/2009/13/2024 CBC WITH DIFFE RENTI AL/PL ATELE T immature grans (abs) 0.0 x10e3 /uL 0.0-0. 1 Not Available [facility] ([facility]) [address] [facility], [place], [address], 09/13/2024 08:12:59 09/12/2009/13/2024 CBC WITH DIFFE RENTI AL/PL ATELE T NRBC BI DEVELOPER Not Available [facility] ([facility]) [address] [facility], [place], [address], 09/13/2024 08:12:59 09/12/20 24 09/13/2024 CBC WITH DIFFE RENTI AL/PL ATELE T hematology comments: BI DEVELOPER Not Available [facility] ([facility]) [address] [facility], [place], [address], 09/13/2024 08:12:59 09/12/20 24 09/13/2024 COMP. METAB OLIC PANEL (14) glucose 146 mg/dL 70-99 above high normal Not Available [facility] ([facility]) [address] [facility], [place], [address], 09/13/2024 08:13:00 09/12/20 24 09/13/2024 COMP. METAB OLIC PANEL (14) BUN 23 mg/dL 6-24 normal Not Available [facility] ([facility]) [address] [facility], [place], [address], 09/13/2024 08:13:00 09/12/20 24 09/13/2024 COMP. METAB OLIC PANEL (14) creatinine 0.94 mg/dL 0.57-1 .00 normal Not Available [facility] ([facility]) [address] [facility], [place], [address], 09/13/2024 08:13:00 09/12/20 24 09/13/2024 COMP. METAB OLIC PANEL (14) eGFR 70 mL/mi n/1.7 3 >59 normal Not Available [facility] ([facility]) [address] [facility], [place], [address], 09/13/2024 08:13:00 09/12/20 24 09/13/2024 COMP. METAB OLIC PANEL (14) BUN/creatini ne ratio 24 9-23 above high normal Not Available [facility] ([facility]) [address] [facility], [place], [address], 09/13/2024 08:13:00 09/12/20 24 09/13/2024 COMP. METAB OLIC PANEL (14) sodium 142 mmol/ L 134-14 4 normal Not Available [facility] ([facility]) [address] [facility] [place], [address], 09/13/2024 08:13:00 09/12/20 24 09/13/2024 COMP. METAB OLIC PANEL (14) potassium 4.9 mmol/ L 3.5-5. 2 normal Not Available [facility] ([facility]) [address] [facility] [place], [address], 09/13/2024 08:13:00 09/12/20 24 09/13/2024 COMP. METAB OLIC PANEL (14) chloride 104 mmol/ L 96-106 normal Not Available [facility] ([facility]) [address] [facility] [place], [address], 09/13/2024 08:13:00 09/12/20 24 09/13/2024 COMP. METAB OLIC PANEL (14) carbon dioxide, total 21 mmol/ L 20-29 normal Not Available [facility] ([facility]) [address] [facility] [place], [address], 09/13/2024 08:13:00 09/12/20 24 09/13/2024 COMP. METAB OLIC PANEL (14) calcium 10.0 mg/dL 8.7-10 .2 normal Not Available [facility] ([facility]) [address] [facility] [place], [address], 09/13/2024 08:13:00 09/12/20 24 09/13/2024 COMP. METAB OLIC PANEL (14) protein, total 7.0 g/dL 6.0-8. 5 normal Not Available [facility] ([facility]) [address] [facility] [place], [address], 09/13/2024 08:13:00 09/12/20 24 09/13/2024 COMP. METAB OLIC PANEL (14) albumin 5.0 g/dL 3.8-4. 9 above high normal Not Available [facility] ([facility]) [address] [place], [address], 09/13/2024 08:13:00 09/12/20 24 09/13/2024 COMP. METAB OLIC PANEL (14) globulin, total 2.0 g/dL 1.5-4. 5 Not Available [facility] ([facility]) [address] [place], [address], 09/13/2024 08:13:00 09/12/20 24 09/13/2024 COMP. METAB OLIC PANEL (14) bilirubin, total 0.5 mg/dL 0.0-1. 2 normal Not Available [facility] ([facility]) [address] [place], [address], 09/13/2024 08:13:00 09/12/20 24 09/13/2024 COMP. METAB OLIC PANEL (14) alkaline phosphatase 97 IU/L 44-121 normal Not Available [facility] ([facility]) [address] [place], [address], 09/13/2024 08:13:00 09/12/20 24 09/13/2024 COMP. METAB OLIC PANEL (14) AST (SGOT) 48 IU/L 0-40 above high normal Not Available [facility] ([facility]) [address] [place], [address], 09/13/2024 08:13:00 09/12/20 24 09/13/2024 COMP. METAB OLIC PANEL (14) ALT (SGPT) 79 IU/L 0-32 above high normal Not Available [facility] ([facility]) [address] [facility] [place], [address], 09/13/2024 08:13:00 09/12/20 24 09/13/2024 LIPID PANEL cholesterol, total 125 mg/dL 100-19 9 normal Not Available [facility] ([facility]) [address] [facility], [place], [address], 09/13/2024 08:13:00 09/12/20 24 09/13/2024 LIPID PANEL triglyceride s 161 mg/dL 0-149 above high normal Not Available [facility] ([facility]) [address] [facility], [place], [address], 09/13/2024 08:13:00 09/12/20 24 09/13/2024 LIPID PANEL HDL cholesterol 58 mg/dL >39 normal Not Available [facility] ([facility]) [address] [facility], [place], [address], 09/13/2024 08:13:00 09/12/20 24 09/13/2024 LIPID PANEL VLDL cholesterol ugo 27 mg/dL 5-40 Not Available [facility] ([facility]) [address] [facility], [place], [address], 09/13/2024 08:13:00 09/12/20 24 09/13/2024 LIPID PANEL LDL chol calc ([email or web address] 40 mg/dL 0-99 Not Available [facility] ([facility]) [address] [facility], [place], [address], 09/13/2024 08:13:00 09/12/20 24 09/13/2024 LIPID PANEL LDL calc comment: BI DEVELOPER Not Available [facility] ([facility]) [address] [facility], [place], [address], 09/13/2024 08:13:00 09/12/20 24 09/13/2024 ALBUM IN/CR EATIN INE RATIO ,URIN E creatinine, urine 97.0 mg/dL not estab. normal Not Available [facility] ([facility]) [address] [facility], [place], [address], 09/13/2024 08:13:01 09/12/20 24 09/13/2024 ALBUM IN/CR EATIN INE RATIO ,URIN E albumin, urine 30.7 ug/mL not estab. Not Available [facility] ([facility]) [address] [facility], [place], [address], 09/13/2024 08:13:01 09/12/20 24 09/13/2024 ALBUM IN/CR EATIN INE RATIO ,URIN E alb/creat ratio 32 mg/g_ creat 0-29 above high normal Darlene l: 0 - 29 Moder ately incre ased: 30 - 300 Sever edwin incre ased: >300 Not Available [facility] ([facility]) [address] [facility], [place], [address], 09/13/2024 08:13:01 09/12/20 24 09/13/2024 VITAM IN B12 AND FOLAT E vitamin B12 1075 pg/mL 232-12 45 normal Not Available [facility] ([facility]) [address] [facility], [place], [address], 09/13/2024 08:13:01 09/12/20 24 09/13/2024 VITAM IN B12 AND FOLAT E folate (folic acid), serum >20.0 NG/mL >3.0 A serum folat e matt ntrat ion of less than 3.1 ng/mL is consi dered to repre sent clini ugo defic iency . Not Available [facility] ([facility]) [address] [facility], [place], [address], 09/13/2024 08:13:01 09/12/20 24 09/13/2024 HEMOG LOBIN A1C hemoglobin A1C 7.1 % 4.8-5. 6 above high normal Predi abete s: 5.7 - 6.4 Diabe mello: >6.4 Glyce mary contr ol for adult s with diabe mello: <7.0 Not Available [facility] ([facility]) [address] [facility], [place], [address], 09/13/2024 08:13:02 02/26/20 25 02/26/2025 CBC WITH DIFFE RENTI AL/PL ATELE T WBC 5.5 x10e3 /uL 3.4-10 .8 normal Not Available [facility] ([facility]) [address] [place], [address], 02/26/2025 12:12:01 02/26/20 25 02/26/2025 CBC WITH DIFFE RENTI AL/PL ATELE T RBC 3.87 x10e6 /uL 3.77-5 .28 normal Not Available [facility] ([facility]) [address] [place], [address], 02/26/2025 12:12:01 02/26/2002/26/2025 CBC WITH DIFFE RENTI AL/PL ATELE T hemoglobin 12.5 g/dL 11.1-1 5.9 normal Not Available [facility] ([facility]) [address] [place], [address], 02/26/2025 12:12:01 02/26/20 25 02/26/2025 CBC WITH DIFFE RENTI AL/PL ATELE T hematocrit 37.4 % 34.0-4 6.6 normal Not Available [facility] ([facility]) [address] [place], [address], 02/26/2025 12:12:01 02/26/2002/26/2025 CBC WITH DIFFE RENTI AL/PL ATELE T MCV 97 fL 79-97 normal Not Available [facility] ([facility]) [address] [place], [address], 02/26/2025 12:12:01 02/26/2002/26/2025 CBC WITH DIFFE RENTI AL/PL ATELE T MCH 32.3 pg 26.6-3 3.0 normal Not Available [facility] ([facility]) [address] [place], [address], 02/26/2025 12:12:01 02/26/20 25 02/26/2025 CBC WITH DIFFE RENTI AL/PL ATELE T MCHC 33.4 g/dL 31.5-3 5.7 normal Not Available [facility] ([facility]) [address] [facility], [place], [address], 02/26/2025 12:12:01 02/26/20 25 02/26/2025 CBC WITH DIFFE RENTI AL/PL ATELE T RDW 12.5 % 11.7-1 5.4 Not Available [facility] ([facility]) [address] [facility], [place], [address], 02/26/2025 12:12:02/26/20 25 02/26/2025 CBC WITH DIFFE RENTI AL/PL ATELE T platelets 204 x10e3 /uL 150-45 0 normal Not Available [facility] ([facility]) [address] [facility], [place], [address], 02/26/2025 12:12:02/26/20 25 02/26/2025 CBC WITH DIFFE RENTI AL/PL ATELE T neutrophils 75 % not estab. normal Not Available [facility] ([facility]) [address] [facility], [place], [address], 02/26/2025 12:12:01 02/26/20 25 02/26/2025 CBC WITH DIFFE RENTI AL/PL ATELE T lymphs 17 % not estab. normal Not Available [facility] ([facility]) [address] [facility], [place], [address], 02/26/2025 12:12:01 02/26/20 25 02/26/2025 CBC WITH DIFFE RENTI AL/PL ATELE T monocytes 6 % not estab. normal Not Available [facility] ([facility]) [address] [place], [address], 02/26/2025 12:12:01 02/26/20 25 02/26/2025 CBC WITH DIFFE RENTI AL/PL ATELE T eos 2 % not estab. normal Not Available [facility] ([facility]) [address] [facility], [place], [address], 02/26/2025 12:12:01 02/26/2002/26/2025 CBC WITH DIFFE RENTI AL/PL ATELE T basos 0 % not estab. normal Not Available [facility] ([facility]) [address] [facility], [place], [address], 02/26/2025 12:12:01 02/26/20 25 02/26/2025 CBC WITH DIFFE RENTI AL/PL ATELE T immature cells BI DEVELOPER Not Available [facility] ([facility]) [address] [facility], [place], [address], 02/26/2025 12:12:01 02/26/20 25 02/26/2025 CBC WITH DIFFE RENTI AL/PL ATELE T neutrophils (absolute) 4.1 x10e3 /uL 1.4-7. 0 normal Not Available [facility] ([facility]) [address] [facility], [place], [address], 02/26/2025 12:12:01 02/26/20 25 02/26/2025 CBC WITH DIFFE RENTI AL/PL ATELE T lymphs (absolute) 1.0 x10e3 /uL 0.7-3. 1 normal Not Available [facility] ([facility]) [address] [place], [address], 02/26/2025 12:12:01 02/26/20 25 02/26/2025 CBC WITH DIFFE RENTI AL/PL ATELE T monocytes(ab solute) 0.3 x10e3 /uL 0.1-0. 9 normal Not Available [facility] ([facility]) [address] [place], [address], 02/26/2025 12:12:01 02/26/20 25 02/26/2025 CBC WITH DIFFE RENTI AL/PL ATELE T eos (absolute) 0.1 x10e3 /uL 0.0-0. 4 normal Not Available [facility] ([facility]) [address] [facility], [place], [address], 02/26/2025 12:12:01 02/26/20 25 02/26/2025 CBC WITH DIFFE RENTI AL/PL ATELE T baso (absolute) 0.0 x10e3 /uL 0.0-0. 2 normal Not Available [facility] ([facility]) [address] [facility], [place], [address], 02/26/2025 12:12:01 02/26/2002/26/2025 CBC WITH DIFFE RENTI AL/PL ATELE T immature granulocytes 0 % not estab. Not Available [facility] ([facility]) [address] [facility], [place], [address], 02/26/2025 12:12:01 02/26/20 25 02/26/2025 CBC WITH DIFFE RENTI AL/PL ATELE T immature grans (abs) 0.0 x10e3 /uL 0.0-0. 1 Not Available [facility] ([facility]) [address] [facility], [place], [address], 02/26/2025 12:12:01 02/26/20 25 02/26/2025 CBC WITH DIFFE RENTI AL/PL ATELE T NRBC BI DEVELOPER Not Available [facility] ([facility]) [address] [facility] [place], [address], 02/26/2025 12:12:01 02/26/20 25 02/26/2025 CBC WITH DIFFE RENTI AL/PL ATELE T hematology comments: BI DEVELOPER Not Available [facility] ([facility]) [address] [facility] [place], [address], 02/26/2025 12:12:01 02/26/20 25 02/26/2025 COMP. METAB OLIC PANEL (14) glucose 153 mg/dL 70-99 above high normal Not Available [facility] ([facility]) [address] [facility] [place], [address], 02/26/2025 12:12:02 02/26/20 25 02/26/2025 COMP. METAB OLIC PANEL (14) BUN 24 mg/dL 8-27 normal Not Available [facility] ([facility]) [address] [facility] [place], [address], 02/26/2025 12:12:02 02/26/20 25 02/26/2025 COMP. METAB OLIC PANEL (14) creatinine 0.89 mg/dL 0.57-1 .00 normal Not Available [facility] ([facility]) [address] [facility] [place], [address], 02/26/2025 12:12:02 02/26/20 25 02/26/2025 COMP. METAB OLIC PANEL (14) eGFR 74 mL/mi n/1.7 3 >59 normal Not Available [facility] ([facility]) [address] [facility] [place], [address], 02/26/2025 12:12:02 02/26/20 25 02/26/2025 COMP. METAB OLIC PANEL (14) BUN/creatini ne ratio 27 12-28 normal Not Available [facility] ([facility]) [address] [facility] [place], [address], 02/26/2025 12:12:02 02/26/20 25 02/26/2025 COMP. METAB OLIC PANEL (14) sodium 141 mmol/ L 134-14 4 normal Not Available [facility] ([facility]) [address] [facility] [place], [address], 02/26/2025 12:12:02 02/26/20 25 02/26/2025 COMP. METAB OLIC PANEL (14) potassium 5.5 mmol/ L 3.5-5. 2 above high normal Not Available [facility] ([facility]) [address] [facility] [place], [address], 02/26/2025 12:12:02 02/26/20 25 02/26/2025 COMP. METAB OLIC PANEL (14) chloride 104 mmol/ L 96-106 normal Not Available [facility] ([facility]) [address] [place], [address], 02/26/2025 12:12:02 02/26/20 25 02/26/2025 COMP. METAB OLIC PANEL (14) carbon dioxide, total 23 mmol/ L 20-29 normal Not Available [facility] ([facility]) [address] [place], [address], 02/26/2025 12:12:02 02/26/20 25 02/26/2025 COMP. METAB OLIC PANEL (14) calcium 10.1 mg/dL 8.7-10 .3 normal Not Available [facility] ([facility]) [address] [facility] [place], [address], 02/26/2025 12:12:02 02/26/20 25 02/26/2025 COMP. METAB OLIC PANEL (14) protein, total 6.4 g/dL 6.0-8. 5 normal Not Available [facility] ([facility]) [address] [facility] [place], [address], 02/26/2025 12:12:02 02/26/20 25 02/26/2025 COMP. METAB OLIC PANEL (14) albumin 4.7 g/dL 3.8-4. 9 normal Not Available [facility] ([facility]) [address] [facility] [place], [address], 02/26/2025 12:12:02 02/26/20 25 02/26/2025 COMP. METAB OLIC PANEL (14) globulin, total 1.7 g/dL 1.5-4. 5 Not Available [facility] ([facility]) [address] [facility] [place], [address], 02/26/2025 12:12:02 02/26/20 25 02/26/2025 COMP. METAB OLIC PANEL (14) bilirubin, total 0.2 mg/dL 0.0-1. 2 normal Not Available [facility] ([facility]) [address] [place], [address], 02/26/2025 12:12:02 02/26/20 25 02/26/2025 COMP. METAB OLIC PANEL (14) alkaline phosphatase 93 IU/L 44-121 normal Not Available [facility] ([facility]) [address] [place], [address], 02/26/2025 12:12:02 02/26/20 25 02/26/2025 COMP. METAB OLIC PANEL (14) AST (SGOT) 43 IU/L 0-40 above high normal Not Available [facility] ([facility]) [address] [place], [address], 02/26/2025 12:12:02 02/26/20 25 02/26/2025 COMP. METAB OLIC PANEL (14) ALT (SGPT) 57 IU/L 0-32 above high normal Not Available [facility] ([facility]) [address] [place], [address], 02/26/2025 12:12:02 02/26/20 25 02/26/2025 LIPID PANEL cholesterol, total 131 mg/dL 100-19 9 normal Not Available [facility] ([facility]) [address] [place], [address], 02/26/2025 12:12:02 02/26/20 25 02/26/2025 LIPID PANEL triglyceride s 117 mg/dL 0-149 normal Not Available [facility] ([facility]) [address] [place], [address], 02/26/2025 12:12:02 02/26/20 25 02/26/2025 LIPID PANEL HDL cholesterol 45 mg/dL >39 normal Not Available [facility] ([facility]) [address] [facility], [place], [address], 02/26/2025 12:12:02 02/26/20 25 02/26/2025 LIPID PANEL VLDL cholesterol ugo 21 mg/dL 5-40 Not Available [facility] ([facility]) [address] [facility], [place], [address], 02/26/2025 12:12:02 02/26/20 25 02/26/2025 LIPID PANEL LDL chol calc ([email or web address] 65 mg/dL 0-99 Not Available [facility] ([facility]) [address] [facility], [place], [address], 02/26/2025 12:12:02 02/26/2002/26/2025 LIPID PANEL LDL calc 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 Not Available [facility] ([facility]) [address] [facility], [place], [address], 02/26/2025 12:12:03 02/26/20 25 02/26/2025 HEMOG LOBIN A1C hemoglobin A1C 7.0 % 4.8-5. 6 above high normal Predi abete s: 5.7 - 6.4 Diabe mello: >6.4 Glyce mary contr ol for adult s with diabe mello: <7.0 Not Available [facility] ([facility]) [address] [facility], [place], [address], 02/26/2025 12:12:04 02/26/20 25 02/26/2025 VITAM IN D, 25-HY DROXY vitamin D, 25-hydroxy 68.1 NG/mL 30.0-1 00.0 Vitam in D defic iency has been defin ed by the Insti tute of Medic ine and an Endoc rine Socie ty pract ice guide line as a level of serum 25-OH vitam in D less than 20 ng/mL (1,2) . The Endoc rine Socie ty went on to furth er defin e vitam in D insuf ficie ncy as a level betwe en 21 and 29 ng/mL (2). 1. IOM (Inst itute of Medic ine). 2009. Dieta ry refer ence roshan es for calci um and D. Izaiah santos [place]: The Natio nal [employer] [facility] Press . 2. Tia benavides MF, Rangel su [place], Francy off-F errar i BEASLEY, et al. Evalu ation , treat ment, and preve ntion of vitam in D defic iency : an Endoc rine Socie ty clini ugo pract ice guide line. JCEM. 2010; 96(7) :1911 -30. Not Available [facility] ([facility]) [address] [facility], [place], [address], 02/26/2025 12:12:04 02/26/20 25 02/26/2025 MAGNE SIUM magnesium 2.7 mg/dL 1.6-2. 3 above high normal Not Available [facility] ([facility]) [address] [facility], [place], [address], 02/26/2025 12:12:04 02/26/20 25 02/25/2025 drug scree n, urine THC negati ve Not Available [address], [address], 02/25/2025 08:48:18 02/26/20 25 02/25/2025 drug scree n, urine TCA negati ve Not Available [address], [address], 02/25/2025 08:48:18 02/26/20 25 02/25/2025 drug scree n, urine BAR negati ve Not Available [address], [address], 02/25/2025 08:48:18 02/26/2002/25/2025 drug scree n, urine BZO negati ve Not Available [address], [address], 02/25/2025 08:48:18 02/26/20 25 02/25/2025 drug scree n, urine MTD negati ve Not Available [address], [address], 02/25/2025 08:48:18 02/26/2002/25/2025 drug scree n, urine AMP negati ve Not Available [address], [address], 02/25/2025 08:48:18 02/26/2002/25/2025 drug scree n, urine MOP negati ve Not Available [address], [address], 02/25/2025 08:48:18 02/26/2002/25/2025 drug scree n, urine OXY negati ve Not Available [address], [address], 02/25/2025 08:48:18 02/26/20 25 02/25/2025 drug scree n, urine MDMA negati ve Not Available [address], [address], 02/25/2025 08:48:18 02/26/20 25 02/25/2025 drug scree n, urine PATRICIO negati ve Not Available [address], [address], 02/25/2025 08:48:18 02/26/20 25 02/25/2025 drug scree n, urine PCP negati ve Not Available [address], [address], 02/25/2025 08:48:18 02/26/20 25 02/25/2025 drug scree n, urine MET negati ve Not Available [address], [address], 02/25/2025 08:48:18 03/10/20 25 03/10/2025 XR, foot, 3 or more view No observ ation record ed. [place] [id number], [place], [address], 03/11/2025 08:08:33 03/25/20 25 03/25/2025 CT, foot, w/o contr ast No observ ation record ed. [facility] [address], [place], [address], 03/25/2025 13:49:22 03/25/20 25 03/25/2025 ankle brach ial index No observ ation record ed. [facility] [address], [place], [address], 03/25/2025 17:51:20 03/26/20 25 03/26/2025 elect antoinette dong am No observ ation record ed. [facility] [address], [place], [address], 03/27/2025 08:18:25 03/26/20 25 03/26/2025 XR, foot, 3 or more view No observ ation record ed. [facility] [address], [place], [address], 03/27/2025 08:43:06 05/20/20 25 05/20/2025 XR, foot, 3 or more view No observ ation record ed. [facility] [address], [place], [address], 05/23/2025 08:22:56 Result Notes None recorded. Problems Name Problem SNOMED Code Status Onset Date Resolution Date Notes Provider Name and Address Organization Details Recorded Time Diabetes mellitus 64631726 Active Not Available [facility] 3 03:20:06 Neuropathy 605906841 Active 2021 Not Available [facility] 3 03:20:05 Arthritis 1568799 Active 2022 Not Available [facility] 3 03:20:05 Basal cell carcinoma of skin 802344394 Active 2022 Jennifer Mccord, AKSHAT [address], [place], [address] , [place] - [facility] 3 10:22:52 Coronary arteriosclero sis 72141454 Active 2024 Jennifer Mccord, ECDIS N NAVIGATION OPERATOR [address], [place], [address] , [place] - [facility] 5 08:50:23 Problem Notes None recorded. Procedures Surgical History Date Name Laterality Status Provider Name and Address Organization Details Recorded Time 04/14/20 25 Medication Reconcilliation completed Zenaida Stears [place] - [facility] 04/14/2025 09:55:25 03/26/20 25 amputation of toe completed Zenaida Stears [place] - [facility] 04/14/2025 10:07:57 06/18/20 24 EXCISION OF CYST (SURG) completed Jennifer Mccord, ECDIS N NAVIGATION OPERATOR [address], [place], [address], [place] [facility] 06/20/2024 08:09:44 05/23/20 24 EXCISION OF CYST (SURG) completed Jennifer Mccord, ECDIS N NAVIGATION OPERATOR [address], [place], [address], [place] [facility] 05/24/2024 08:41:37 03/16/20 24 EXCISION OF CYST (SURG) completed Jennifer Mccord, ECDIS N NAVIGATION OPERATOR [address], [place], [address], [place] [facility] 04/16/2024 15:15:10 02/13/20 22 [...] [facility] 06/17/2022 09:06:11 Cardiac Cath completed Sara THAKKAR - [facility] 06/22/2023 14:20:39 Imaging Results None [...] mass index (BMI) Body weight Heart rate Oxygen saturation Oxygen saturation in Arterial blood by Pulse oximetry Respiratory rate Systolic And Diastolic Provider Name and Address Organization Details Last Updated DateTime 5 175.26 cm 28.6 kg/m2 84938.4 3 g 86 /min 99 % 99 % 18 /min 124/72 mm[Hg] Sara Chacko [facility] 5 09:49:14 Date Recorded Body height Body mass index (BMI) Body weight Oxygen saturation Oxygen saturation in Arterial blood by Pulse oximetry Heart rate Body temperature Respiratory rate Systolic And Diastolic Provider Name and Address Organization Details Last Updated DateTime 5 175.26 cm 28.2 kg/m2 94257.1 4 g 98 % 98 % 84 /min 98.1 [degF] 16 /min 112/68 mm[Hg] Sara Chacko [facility] 5 08:17:43 Date Recorded Body height Body temperature Respiratory rate Heart rate Oxygen saturation Oxygen saturation in Arterial blood by Pulse oximetry Systolic And Diastolic Provider Name and Address Organization Details Last Updated DateTime 5 175.26 cm 98 [degF] 18 /min 78 /min 100 % 100 % 118/76 mm[Hg] Zenaida Rae [place] - [facility] 5 10:05:20 Date Recorded Body height Body mass index (BMI) Body weight Oxygen saturation Oxygen saturation in Arterial blood by Pulse oximetry Respiratory rate Heart rate Systolic And Diastolic Provider Name and Address Organization Details Last Updated DateTime 5 175.26 cm 27.8 kg/m2 79429.3 7 g 98 % 98 % 18 /min 79 /min 118/78 mm[Hg] Sara Chacko [place] - [facility] 16:25:53 Date Recorded Body height Provider Name an d Address Organization Details Last Updated DateTime 09/12/2024 175.26 cm Sara Chacko [place] - [facility] 1 08:31:45 Social History Question Answer Notes LastModified by Organizat ion Details LastModified Time Tobacco Smoking Status Former Smoker Sara Chacko null, [place] - [facility] 06/17/2022 09:06:11 Do [...] Or The Highest Degree You Have Received? 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 [id number] Information not available 06/17/2022 Do you have [...] Time zoster recombinant 0 completed Not Available [facility] 05/09/2023 03:20:06 zoster recombinant 1 completed Not Available [facility] 05/09/2023 03:20:06 Influenza, split virus, quadrivalent, preservative 1 completed Not Available [facility] 12/21/2023 15:47:54 Influenza, split virus, quadrivalent, PF 7 completed Not Available [facility] 05/09/2023 03:20:06 influenza, split (incl. purified surface antigen) 3 completed Not Available [facility] 05/09/2023 03:20:06 Influenza, split virus, quadrivalent, PF 0 completed Not Available [facility] 05/09/2023 03:20:06 Hep A-Hep B 9 completed Not Available [facility] 05/09/2023 03:20:06 Hep A-Hep B 8 completed Not Available [facility] 05/09/2023 03:20:06 Influenza, split virus, quadrivalent, PF 9 completed Not Available [facility] 05/09/2023 03:20:06 Hep A-Hep B 8 completed Not Available [facility] 05/09/2023 03:20:06 Influenza, split virus, quadrivalent, PF 8 completed Not Available [facility] 05/09/2023 03:20:06 Influenza, split virus, quadrivalent, PF 1 completed Not Available [facility] 05/09/2023 03:20:06 Past Encounters Encounter ID Performer Location Encounter Start Date Encounter Closed Date Diagnosis/Indication Diagnosis SNOMED-CT Code Diagnosis ICD10 Code Diagnosis Note [id number] Jennifer Mccord APRN [address] [address] 06/17/2022 08:39:44 06/17/2022 09:46:16 Diabetes mellitus 71860211 E11.9 Overall, pt doing well at this time. Pt is due for Diabetic labs at today's visit. Pt will need repeat A1c today. Discussed routine diabetic follow up in 3 months and pt is agreeable. Pt counseled on diet and weight management at today's visit. Pt will try to comply with ADA guidelines in regards to diet and increase daily activity as tolerated. Call or RTC sooner than follow up should any questions or concerns arise. *Diabetic Measures:M etformin: yesACE/ARB :yesASA:ye sStatin:ye sGLP:yes Neuropathy 588951038 G62 .9 Pt compliant with plan of careNandosploreta reviewedme dication compliance discussedc sa obtainedud s today Seasonal allergy 0227187 04 J30.2 [id number] Jennifer Mccord [address] [address] 09/16/2022 13:15:41 09/16/2022 13:48:35 Neuropathy 659337573 G62.9 Pt compliant with plan of careKasper reviewedme dication compliance discussedc sa obtainedud s:09/16/22 Diabetes mellitus 182599 09 E11.9 Long-term drug therapy 405881298 Z79.899 Liver enzy mes level above reference range 453581864 R74.8 [id number] [facility] [address] 12/06/2022 13:49:27 12/06/2022 14:42:57 Diabetes mellitus 18598078 E11.9 *Diabetic Measures:M etformin:y esACE/ARB: yesASA:yes Statin:yes GLP:yes Neuropathy 428264345 G62 .9 Pt compliant with plan of careKasper reviewedme dication compliance discussedc sa obtainedud s:09/16/22 Acute maxi llary sinusitis 17133576 J01.00 Arthritis 3346325 M19.90 Edema of l ower extremity 052205286 R60.0 Paresthesi a of lower extremity 020381999 R20.2 Spasm of back muscles 20 8410897 M62.482 [id number] [facility] [address] 03/13/2023 08:06:09 03/13/2023 09:21:28 Diabetes mellitus 82021205 E11.9 *Diabetic Measures:M etformin:y esACE/ARB: yesASA:yes Statin:yes GLP:yes Arthritis 6794511 M19.90 Neuropathy 391637933 G62 .9 Pt compliant with plan of careKasper reviewedme dication compliance discussedc sa obtainedud s:09/16/22 Type 2 zulma betes mellitus 91145868 E11.9 Liver enzy mes level above reference range 437569255 R74.8 Intermitte nt palpitations 988436543 R00.2 Varicose v eins of lower extremity 23660640 I83.91 Acute maxi llary sinusitis 21324056 J01.00 follow up with ent as scheduled [id number] [facility] [address] 06/22/2023 13:44:06 06/22/2023 14:47:35 Diabetes mellitus 48770984 E11.9 *Diabetic Measures:M etformin:y esACE/ARB: yesASA:yes Statin:yes GLP:yes Spasm of back muscles 20 8959814 M62.830 Neuropathy 482370901 G62 .9 Pt compliant with plan of careKasper reviewedme dication compliance discussedc sa obtainedud s:03/13/23 Type 2 zulma betes mellitus 13608591 E11.9 Seasonal a llergic rhinitis 481890986 J30.2 follow up with ent as scheduled [id number] [place] [id number] 07/27/2023 13:48:57 07/27/2023 15:05:59 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.621 will refer to podiatryme ds as orderedret urn if symptoms worsen [id number] [address] [address] 09/21/2023 08:42:56 09/21/2023 10:32:38 Neuropathy 471368782 G62.9 Pt compliant with plan of careKasper reviewedme dication compliance discussedc sa obtainedud s:09/21/23t rial of increase in gabapentin to 400mg po bidpt will call and I will send lower dose if needed Arthritis 4076941 M19.90 Diabetes mellitus 371423 09 E11.9 *Diabetic Measures:M etformin:y esACE/ARB: yesASA:yes Statin:yes GLP:yes Cyst of skin 385060350 L 72.9 Basal cell carcinoma of skin 640191920 C44.91 follow up with dermatolog y [id number] [facility] [address] [address] 12/21/2023 15:47:46 12/21/2023 16:51:31 Diabetes mellitus 27585250 E11.9 *Diabetic Measures:M etformin:y esACE/ARB: yesASA:yes Statin:yes GLP:yesa1c 6.3% Spasm of back muscles 20 9687092 M62.830 Arthritis 7343206 M19.90 Gastroesop hageal reflux disease without esophagitis 331285937 K21.9 Neuropathy 694908063 G62 .9 Pt compliant with plan of careKasper reviewedme dication compliance discussedc sa obtainedud s:09/21/23t rial of increase in gabapentin to 400mg po bidpt will call and I will send lower dose if needed Herpes simplex 95376826 B00.9 [id number] Jennifer Mccord [address] [address] 03/21/2024 15:33:07 03/21/2024 16:30:28 Diabetes mellitus 02006153 E11.9 *Diabetic Measures:M etformin:y esACE/ARB: yesASA:yes Statin:yes GLP:yesa1c 6.3%will have labs prior to surgery- asked pt for copy of those labs once resulted Neuropathy 987729910 G62 .9 Pt compliant with plan of careKasper reviewedme dication compliance discussedc sa obtainedud s:03/21/24tr ial of increase in gabapentin to 400mg po bidpt will call and I will send lower dose if needed Arthritis 0691949 M19.90 Long-term current use of drug therapy 824538949 Z79.260 [id number] Jennifer Mccord [address] [address] 04/11/2024 15:35:20 04/11/2024 16:22:43 Neuropathy 396569909 G62.9 Pt compliant with plan of careKasper reviewedme dication compliance discussedc sa obtainedud s:03/21/24tr ial of increase in gabapentin to 400mg po bidpt will call and I will send lower dose if needed Diabetes mellitus 282783 09 E11.9 *Diabetic Measures:M etformin:y esACE/ARB: yesASA:yes Statin:yes GLP:yesa1c 6.3%will have labs prior to surgery- asked pt for copy of those labs once resulted Pain of le ft knee joint 5092230577 55941 M25.562 off work until after surgery [id number] Jennifer Mccord APRN [address] [address] 06/04/2024 09:07:10 06/04/2024 10:03:25 Diabetes mellitus 62065378 E11.9 *Diabetic Measures:M etformin:y esACE/ARB: yesASA:yes Statin:yes GLP:yesa1c 6.3% Neuropathy 102738189 G62 .9 Pt compliant with plan of careKasper reviewedme dication compliance discussedc sa obtainedud s:03/21/24tr ial of increase gabapentin to 400 mg tid so pt can hold difluac Spasm of back muscles 20 4892273 M62.830 Arthritis 4018056 M19.90 Seasonal a llergic rhinitis 904344263 J30.2 follow up with ent as scheduled [id number] Jennifer Mccord ECDIS N NAVIGATION OPERATOR [address] [address] 09/03/2024 15:21:19 09/03/2024 16:12:16 Neuropathy 424418748 G62.9 Pt compliant with plan of careKasper reviewedme dication compliance discussedc sa obtainedud s:03/21/24 Arthritis 2888936 M19.90 Spasm of back muscles 20 6006676 M62.830 Diabetes mellitus 430932 09 E11.9 *Diabetic Measures:M etformin:y esACE/ARB: yesASA:yes Statin:yes GLP:yesa1c 6.3% Type 2 zulma betes mellitus 62179021 E11.9 [id number] Jennifer Mccord ECDIS N NAVIGATION OPERATOR [address] [address] 09/12/2024 07:56:03 09/12/2024 08:47:28 Type 2 diabetes mellitus 47668450 E11.9 [id number] Jennifer Mccord [address] [address] 12/02/2024 09:32:14 12/02/2024 10:23:36 Diabetes mellitus 18820951 E11.9 *Diabetic Measures:M etformin:y esACE/ARB: yesASA:yes Statin:yes GLP:yesa1c 6.3% Arthritis 5418589 M19.90 [id number] Jennifer Mccord [address] [address] 02/25/2025 08:09:31 02/25/2025 09:05:42 Diabetes mellitus 84185958 E11.9 *Diabetic Measures:M etformin:y esACE/ARB: yesASA:yes Statin:yes GLP:yesa1c 6.3% Spasm of back muscles 20 9664429 M62.830 Arthritis 3972295 M19.90 Seasonal a llergic rhinitis 452995577 J30.2 follow up with ent as scheduled Neuropathy 557680157 G62 .9 Pt compliant with plan of careKasper reviewedme dication compliance discussedc obtainedud s:02/25/25 Herpes simplex 04765347 B00.9 Bilateral cramp of muscle of lower limbs 6811391652 2419100 R25.2 Long-term current use of drug therapy 973136371 Z79.899 Essential hypertension 03029679 I10 Coronary arteriosclerosis 44259731 I25.10 Otitis externa 2416977 H 60.8X1 [id number] Sarahkat Mccord [address] [address] 04/14/2025 09:43:12 04/14/2025 10:49:03 Amputated toe of right foot 554214887 S98.131A follow up with Dr Weathers. [id number] Jennifer Mccord [address] [address] 05/27/2025 15:19:58 05/27/2025 16:45:54 Diabetes mellitus 16616419 E11.9 *Diabetic Measures:M etformin:y esACE/ARB: yesASA:yes Statin:yes GLP:yesa1c 7.9% Neuropathy 098539744 G62 .9 Pt compliant with plan of careKasper reviewedme dication compliance discussedc obtainedud s:02/25/25 Health Concerns Section Related Observation LastModified by Organization Detai ls LastModified Time None Recorded Concern Status LastModified by Organization Details LastModified Time None Recorded Advance Directives Directive N: Payers Insurance Date Sequence Insurance Name Policy Number Policy Gregorio Covered Member ID Gregorio Member ID Guarantor Name 05/24/2025 1 [place] [id number] Zehra Saini Sanor [id number] Zehra [facility] Notes Date Note Type Note Provider Name and Address Organization Details Recorded Time 09/12/2024 text/html 58 yr old female presents for lab work. Sara estr[place], [place] - [facility] 09/12/2024 08:34:40 12/02/2024 text/html Diabetes F/URepo rted bypatient.Review finger sticks:fastin Labs:last A1C result: 6.3 Context:normal range of home blood sugars (in the low 100s); seeing eye doctor regularly; checking feet regularly Associated Symptoms:no weight gain; no weight loss; no dizziness; no sweats; no headaches; no confusion; no increased thirst; no increased appetite; no increased urination; no blurred vision; no numbness of feet; no calluses on feet 59 yr old female presents for a diabetic follow up and refill medications. Sarahkat Mccord APRN [address], [place], [address], [place] [facility] 12/02/2024 10:23:54 02/25/2025 text/html 59 yr old female presents for a diabetic follow up. She has noticed her ozempic isn't working anymore. Her blood sugars are high in the morning - sometimes at 160. Patient has been fasting for labs.pt states pain in rt ear with drainage Jennifer ChesterNARCISO de la torreN [address], [place], [address], [place] - [facility] 02/25/2025 08:53:11 04/14/2025 text/html Emergency Depart ment Follow-Up RecordReported bypatient.Discharge InformationName of hospital/urgent care patient was seen: ([facility]); Patient presented to hospital/urgent care on [...] having o2 treatments done in [place] Jennifer Mccord APRN [address], [place], [address], [place] [facility] 04/14/2025 13:38:32 05/27/2025 text/html 59 yr old female presents for a diabetic follow up and refill on some of her medications.pt states she had tow ange and is doing o2 therapy- wound healedpt states gabapentin helps with neuropathy Jennifer Mccord APRN [address], [place], [address], [place] [facility] 05/27/2025 16:43:57 OBGyn Episode No OBEpisode recorded.
--- OUTSIDE RECORDS SUMMARY | 2025-06-01 10:58 | XMS_ITS | Continuity of Care Document ---
Author Organization [place] [facility], Main Office Address [address] [place] [address] Care Team Providers Care Associate Web Developer Name Role Phone JENNIFER MCCORD Primary Care Provider [phone] Assessment No assessment recorded. Plan of Treatment [...] Modified By Organization Details Last Modified Time 05/21/2025 4430 BACKGROUND 59 y/o female diabetic with moderately [...] MD ____ ____ Session notes Today's date: 21May2025 Session # 36 of 40 planed Next planned HBOT: 22May2025 22May - Found safe for HBOT this [...] session uneventfully. Tomorrow she returns to her cargo surveyor for follow up. NATHAN DONIS 28May - not here due to conflicting medical appointment. NATHAN DONIS 29May - Cleared for HBOT this date and completed full session without problem. NATHAN DONIS 30May - Found safe for HBOT this date and completed full session without problem. She has also been back to see her Martial Arts Instructor, Dr Catherine Weathers, who Ms Shepherd states was pleased with progress. NATHAN DONIS 02Jun - Patient cleared for HBOT today. VS stable. FSBG within range. Patient completed full session with no problem. Lg Agudelo APRN 03Jun - We received last week's note from her cargo surveyor and Dr Weathers expressed satisfaction with progress. [...] full session with no problem. Lg Agudelo HEEL SEAT SANDER 10Jun - Patient cleared for HBOT today. [...] full session with no problem. Lg Agudelo HEEL SEAT SANDER 19Jun - Patient deemed safe for HBOT today. VS stable. FSBG within range. Patient completed full session with no problem. Lg Agudelo APRN 20Jun - Arrived today without knee scooter; her cargo surveyor has advised can do without. Cleared for [...] session with no problem. Julio Cesar.Francisco Agudelo HEEL SEAT SANDER 25Jun - Patient cleared for HBOT today. VS stable. FSBG within range. Patient completed full session with no problem. Julio Cesar.Francisco Agudelo HEEL SEAT SANDER 26Jun - Patient cleared for HBOT today. VS stable. FSBG within range. Patient completed full session with no problem. Julio Cesar.Francisco Agudelo HEEL SEAT SANDER 27Jun - Found safe for HBOT this [...] uneventfully. We got a note form her cargo surveyor, Dr Gay Weathers, who felt she was now suitable to stop treatment with session 40. [facility] [email or web address] Not available 05/21/2025 20:00:04 Reason for Referral None Reported. Procedures Surgical History Date Name Laterality Status Provider Name and Address Organization Details Recorded Time 05/27/20 [facility] Therapy Treatment Form completed [facility] - [facility] 05/27/2025 09:45:15 05/26/20 25 [facility] Therapy Treatment Form completed [facility] - [facility] 05/26/2025 09:41:49 05/23/20 25 [facility] Therapy Treatment Form completed [facility] 05/23/2025 09:53:41 07/10/20 25 [facility] Therapy Treatment Form completed [facility] 05/22/2025 09:49:19 05/21/20 25 [facility] Therapy Treatment Form completed [facility] 05/21/2025 09:56:08 05/20/20 25 [facility] Therapy Treatment Form completed [facility] 05/20/2025 09:41:29 05/19/20 25 [facility] Therapy Treatment Form completed [facility] 05/19/2025 09:45:34 05/16/20 25 [facility] Therapy Treatment Form completed [facility] 05/16/2025 09:41:57 05/15/20 25 [facility] Therapy Treatment Form completed [facility] 05/15/2025 09:46:49 05/14/20 25 [facility] Therapy Treatment Form completed [facility] 05/14/2025 14:06:43 05/13/20 25 [facility] Therapy Treatment Form completed [facility] 05/13/2025 14:14:00 05/12/20 25 [facility] Therapy Treatment Form completed [facility] 05/12/2025 14:06:32 05/09/20 25 [facility] Therapy Treatment Form completed [facility] 05/09/2025 14:20:41 05/08/20 25 [facility] Therapy Treatment Form completed [facility] 05/08/2025 14:16:34 05/07/20 25 [facility] Therapy Treatment Form completed [facility] 05/07/2025 14:34:11 05/06/20 25 [facility] Therapy Treatment Form completed [facility] 05/06/2025 14:33:30 05/05/20 25 [facility] Therapy Treatment Form completed [facility] 05/05/2025 14:39:41 05/02/20 25 [facility] Therapy Treatment Form completed [facility] 05/02/2025 14:38:10 05/01/20 25 [facility] Therapy Treatment Form completed [facility] 05/01/2025 14:30:47 04/30/20 25 [facility] Therapy Treatment Form completed [facility] 04/30/2025 14:50:00 04/29/20 25 [facility] 04/29/2025 15:42:38 04/28/20 25 [facility] Therapy Treatment Form completed [facility] 04/28/2025 13:47:28 04/25/20 25 [facility] Therapy Treatment Form completed [facility] 04/25/2025 14:24:24 04/24/20 25 [facility] Therapy Treatment Form completed Zuleyka Morales [place] - [facility] 04/24/2025 14:37:59 04/23/20 25 [facility] Therapy Treatment Form completed [facility] 04/23/2025 13:52:55 04/22/20 25 [facility] Therapy Treatment Form completed [facility] 04/22/2025 14:27:44 04/21/20 25 [facility] Therapy Treatment Form completed [facility] 04/21/2025 14:09:03 04/18/20 25 [facility] Therapy Treatment Form completed [facility] 04/18/2025 14:22:52 04/17/20 25 [facility] Therapy Treatment Form completed [facility] 04/17/2025 14:14:34 04/16/20 25 [facility] Therapy Treatment Form completed [facility] 04/16/2025 14:24:52 04/15/20 25 [facility] Therapy Treatment Form completed [facility] 04/15/2025 14:43:45 04/14/20 25 [facility] Therapy Treatment Form completed [facility] 04/14/2025 14:39:53 04/11/20 25 [facility] Therapy Treatment Form completed [facility] 04/11/2025 14:38:24 04/10/20 25 [facility] Therapy Treatment Form completed [facility] 04/10/2025 14:35:50 04/08/20 25 [facility] Therapy Treatment Form completed [facility] 04/08/2025 14:29:12 [...] artery bypass grafts x 4 completed Shona Napoleon [place] [facility] 04/03/2025 13:54:46 12/14/19 23 Gallbladder Surgery completed Shona Napoleon [place] - [facility] 04/03/2025 13:54:58 11/13/19 23 biopsy of skin completed Shona Napoleon [place] [facility] 04/03/2025 14:10:49 11/13/19 21 release of trigger finger completed Shona Bender [place] - [facility] 04/03/2025 13:55:11 11/13/19 21 hammer toe operation completed Shona Napoleon [place] - [facility] 04/03/2025 13:55:27 [...] 77 tonsillectomy and adenoidectomy completed Shona Bender [place] - [facility] 04/03/2025 13:57:37 Imaging [...] [degF] 99 % 99 % 118/76 mm[Hg] Ngozi gonzalez [place] - [facility] 5 09:56:26 Date Recorded Heart rate Respiratory rate Body temperature Systolic And Diastolic Provider Name and Address Organization Details Last Updated DateTime 05/21/2025 77 /min 16 /min 96.6 [degF] 130/80 mm[Hg] Smita Hall [place] - [facility] 5 08:20:21 Social History None recorded. Functional Status [...] MD Main Office [address] [place] [address] 04/21/2025 11:56:08 04/21/2025 16:04:26 4113 Mariano Farley MD Main Office [address] [place] [address] 04/22/2025 11:58:46 04/22/2025 14:50:54 4131 Mariano Farley MD Main Office [address] [place] [address] 04/23/2025 11:38:35 04/23/2025 14:47:00 4151 Mariano Farley MD Main Office [address] [place] [address] 04/24/2025 12:20:48 04/24/2025 15:34:39 4165 Mariano Farley MD Main Office [address] [place] [address] 04/25/2025 12:14:52 04/30/2025 15:40:51 4183 Mariano Farley MD Main Office [address] [place] [address] 04/28/2025 11:33:32 05/01/2025 08:04:21 4197 Mariano Farley MD Main Office [address] [place] [address] 04/29/2025 13:00:52 05/01/2025 08:57:14 4218 Mariano Farley MD Main Office [address] [place] [address] 04/30/2025 12:43:07 05/01/2025 09:26:34 4235 Mariano Farley MD Main Office [address] [place] [address] 05/01/2025 12:24:55 05/01/2025 15:28:20 4256 Mariano Farley MD Main Office [address] [place] [address] 05/02/2025 12:29:37 05/05/2025 01:36:37 4269 Mariano Farley MD Main Office [address] [place] [address] 05/05/2025 12:35:08 05/05/2025 15:28:24 4285 Mariano Farley MD Main Office [address] [place] [address] 05/06/2025 12:22:35 05/06/2025 17:17:12 4302 Mariano Farley MD Main Office [address] [place] [address] 05/07/2025 12:27:25 05/07/2025 14:53:23 4316 Mariano Farley MD Main Office [address] [place] [address] 05/08/2025 12:04:54 05/08/2025 15:52:07 4332 Mariano Farley MD Main Office [address] [place] [address] 05/09/2025 12:17:15 05/09/2025 17:22:51 [email or web address] Mariano Farley MD Main Office [address] [place] [address] 05/12/2025 12:05:21 05/12/2025 19:44:55 4356 Mariano Farley MD Main Office [address] [place] [address] 05/13/2025 11:43:11 05/13/2025 17:35:49 4369 Mariano Farley MD Main Office [address] [place] [address] 05/14/2025 12:18:55 05/14/2025 19:59:05 4379 Mariano Farley MD Main Office [address] [place] [address] 05/15/2025 07:47:37 05/15/2025 09:52:44 4393 Mariano Farley MD Main Office [address] [place] [address] 05/16/2025 07:42:13 05/19/2025 06:53:35 4402 Mariano Farley MD Main Office [address] [place] [address] 05/19/2025 07:43:50 05/20/2025 07:03:34 4415 Mariano Farley MD Main Office [address] [place] [address] 05/20/2025 07:49:53 05/21/2025 10:50:47 4430 Mariano Farley MD Main Office [address] [place] [address] 05/21/2025 08:03:58 05/21/2025 20:00:08 Health Concerns Section Related Observation LastModified by Organization Detai ls LastModified Time None Recorded Concern Status LastModified by Organization Details LastModified Time None Recorded Payers Encounter Date Sequence Insurance Name Policy Number Policy Gregorio Covered Member ID Gregorio Member ID Guarantor Name 05/21/2025 1 [place] Zehra Sanor [id number] Zehra Sanor OBGyn Episode No OBEpisode recorded.
--- OUTSIDE RECORDS SUMMARY | 2025-06-01 10:58 | XMS_ITS | Encounter Summary ---
Author Organization [facility] Address [address] [place] [address] Phone Misbah [email or web address] Team Providers Care Horticultural Specialty Grower Name Role Phone No, Provider Primary Care Provider Unavailabl e Encounter Details Date Type Department Care Team (Late st Contact Info) Description 09/18/2018 Ancillary Orders [address] [place] [address] Qing Godoy PA [address] [place] [address] Acute pain of right shoulder [...] shoulder documented in this encounter Care Teams Horticultural Specialty Grower Relationship Specialty Start Date End Date No, Provider VICTOR MANUEL Nixon PCP - General Family Medicine 09/23/19 documented as of this encounter
--- OUTSIDE RECORDS SUMMARY | 2025-06-01 10:58 | XMS_ITS | Encounter Summary ---
Author Organization Healthcare Address [address] [place] [address] Care Team Providers Care Gas Meter Prover Name Role Phone Amalia Walter BACKUP SAWYER Primary Care Provider [phone] Encounter Details Date Type Department Care Team (Late Contact Info) Description 03/07/2025 Outside Procedure External Location [address] [place] [address] Pepito Rosales MD [address] [place] [address] Social History Tobacco Use Types [...] Description 11/21/2025 9:40 AM EST Office Visit [facility] [address] [place] [address] Kristyn Gusman, BACKUP SAWYER [address] [address] 03/06/2026 8:45 AM EDT Office Visit Obstetrics & Gynecology [address] [place] [address] Pepito Rosales MD [address] [place] [address] documented as of this encounter Procedures Procedure Name Priority Date/Time Associated Diagnosis Comments MAMMOGRAPHY BREAST SCREENING TOMOSYNTHESIS BILATERAL 03/07/2025 3:49 PM EDT documented in this encounter Results * Mammography Breast Screening Tomosynthesis Bilateral (03/07/2025 3:49 PM EDT) Anatomical Region Laterality Modality Breast Bilateral Mammography 03/07/2025 3:49 PM EDT Narrative 03/07/2025 4:18 PM EDT [facility] [address] [place] [address] Name: ZEHRA SHEPHERD Exam Date: 03/07/2025 : 1965 Age 59 years Gender: F Physician: PEPITO ROSALES Facility: [facility] Facility HSV: Outpatient Exam: TITUS SCRN [...] Thank you for referring ZEHRA SHEPHERD to [facility]. Legally authenticated by [facility] 2025-03-07 16:06:10 Procedure Note Provider, [facility] - 03/07/2025 [place] [address] Name: ZEHRA SHEPHERD Exam Date: 03/07/2025 : 1965 Age 59 years Gender: F Physician: PEPITO ROSALES Facility: [facility] Facility HSV: Outpatient Exam: TITUS SCRN [...] Thank you for referring ZEHRA SHEPHERD to [facility]. Legally authenticated by [facility] 2025-03-07 [...] documented as of this encounter Care Teams Gas Meter Prover Relationship Specialty Start Date End Date Amalia Walter APRN [address] [place], [place] [id number] PCP - General 09/17/24 documented as of this encounter
--- OUTSIDE RECORDS SUMMARY | 2025-06-01 10:58 | XMS_ITS | Continuity of Care Document ---
Author Organization [place] [facility], Main Office Address [address] [place] [address] Care Team Providers Care Fruit Vendor Name Role Phone JENNIFER MCCORD Primary Care [...] Modified By Organization Details Last Modified Time 05/19/2025 4402 BACKGROUND 59 y/o female diabetic with moderately [...] MD ____ ____ Session notes Today's date: 19May2025 Session # 34 of 40 planed Next planned HBOT: 20May2025 22May - Found safe for HBOT this [...] session uneventfully. Tomorrow she returns to her grounds maintenance supervisor for follow up. NATHAN DONIS 28May - not here due to conflicting medical appointment. NATHAN DONIS 29May - Cleared for HBOT this date and completed full session without problem. NATHAN DONIS 30May - Found safe for HBOT this date and completed full session without problem. She has also been back to see her Seo Strategist, Dr Catherine Weathers, who Ms Shepherd states was pleased with progress. NATHAN DONIS 02Jun - Patient cleared for HBOT today. VS stable. FSBG within range. Patient completed full session with no problem. Lg Agudelo APRN 03Jun - We received last week's note from her grounds maintenance supervisor and Dr Weathers expressed satisfaction with [...] full session with no problem. Lg Agudelo FIRE MANAGER 10Jun - Patient cleared for HBOT [...] full session with no problem. Lg Agudelo FIRE MANAGER 19Jun - Patient deemed safe for HBOT today. VS stable. FSBG within range. Patient completed full session with no problem. Lg Agudelo APRN 20Jun - Arrived today without knee scooter; her grounds maintenance supervisor has advised can do without. Cleared [...] session with no problem. Julio Cesar.Francisco AndersonMagnus FIRE MANAGER 25Jun - Patient cleared for HBOT today. VS stable. FSBG within range. Patient completed full session with no problem. Lg [place]wood FIRE MANAGER 26Jun - Patient cleared for HBOT today. VS stable. FSBG within range. Patient completed full session with no problem. Lg [place] FIRE MANAGER 27Jun - Found safe for HBOT [...] full session free of problem. Jennifer DONIS 07Jul - Cleared as safe for HBOT this date and completed full session free of problem. [facility] [place] [email or web address] Not available 05/20/2025 07:03:29 Reason for Referral None Reported. Procedures Surgical [...] [facility] - [facility] 05/22/2025 09:49:19 [...] [facility] - [facility] 05/14/2025 14:06:43 05/13/20 25 [facility] Therapy Treatment Form completed [facility] 05/13/2025 14:14:00 [...] Zuleyka Morales [place] - [facility] 04/29/2025 15:42:38 04/28/20 25 [facility] Therapy Treatment Form completed [facility] - [facility] 04/28/2025 13:47:28 04/25/20 25 [facility] Therapy Treatment Form completed Ngozi THAKKAR - [facility] 04/25/2025 14:24:24 04/24/20 25 [facility] Therapy Treatment Form completed Zuleyka THAKKAR - [facility] 04/24/2025 14:37:59 04/23/20 25 [facility] Therapy Treatment Form completed Ngozi THAKKAR - [facility] 04/23/2025 13:52:55 04/22/20 25 [facility] Therapy Treatment Form completed Ngozi gonzalez [place] - [facility] 04/22/2025 14:27:44 04/21/20 25 [facility] Therapy Treatment Form completed Ngozi gonzalez [place] - [facility] 04/21/2025 14:09:03 04/18/20 25 [facility] Therapy Treatment Form completed Ngozi THAKKAR - [facility] 04/18/2025 14:22:52 04/17/20 25 [facility] Therapy Treatment Form completed Ngozi THAKKAR - [facility] 04/17/2025 14:14:34 04/16/20 25 [facility] Therapy Treatment Form completed Ngozi THAKKAR - [facility] 04/16/2025 14:24:52 04/15/20 [...] Care Therapy Treatment Form completed Nahomi Roote [place] - [facility] 04/06/2025 12:08:17 04/05/20 [...] release of trigger finger completed Shona Bender [place] - [facility] 04/03/2025 13:55:11 11/13/19 [...] 11/13/18 92 section completed Shona Bender [place] [facility] 04/03/2025 13:57:07 11/13/18 84 appendectomy completed Shona Bellell [place] [facility] 04/03/2025 13:57:28 11/13/18 77 tonsillectomy and adenoidectomy completed Shona Bellell [place] - [facility] 04/03/2025 13:57:37 [...] Updated DateTime 5 80 /min 16 /min 97.5 [degF] 76 /min 16 /min 97.3 [degF] 100 % 100 % 117/77 mm[Hg] 125/76 mm[Hg] [facility] 5 09:45:53 Date Recorded Heart rate Respiratory rate Body [...] % 100 % 113/73 mm[Hg] 116/70 mm[Hg] [facility] - [facility] 5 09:41:45 Social History None recorded. Functional Status None [...] MD Main Office [address] [place] [address] 04/21/2025 11:56:08 04/21/2025 16:04:26 4113 Mariano Farley MD Main Office [address] [place] [address] 04/22/2025 11:58:46 04/22/2025 14:50:54 4131 Mariano Farley MD Main Office [address] [place] [address] 04/23/2025 11:38:35 04/23/2025 14:47:00 4151 Mariano Farley MD Main Office [address] [place] [address] 04/24/2025 12:20:48 04/24/2025 15:34:39 4165 Mariano Farley MD Main Office [address] [place] [address] 04/25/2025 12:14:52 04/30/2025 15:40:51 4183 Mariano Farley MD Main Office [address] [place] [address] 04/28/2025 11:33:32 05/01/2025 08:04:21 4197 Mariano Farley MD Main Office [address] [place] [address] 04/29/2025 13:00:52 05/01/2025 08:57:14 4218 Mariano Farley MD Main Office [address] [place] [address] 04/30/2025 12:43:07 05/01/2025 09:26:34 4235 Mariano Farley MD Main Office [address] [place] [address] 05/01/2025 12:24:55 05/01/2025 15:28:20 4256 Mariano Farley MD Main Office [address] [place] [address] 05/02/2025 12:29:37 05/05/2025 01:36:37 4269 Mariano Farley MD Main Office [address] [place] [address] 05/05/2025 12:35:08 05/05/2025 15:28:24 4285 Mariano Farley MD Main Office [address] [place] [address] 05/06/2025 12:22:35 05/06/2025 17:17:12 4302 Mariano Farley MD Main Office [address] [place] [address] 05/07/2025 12:27:25 05/07/2025 14:53:23 4316 Mariano Farley MD Main Office [address] [place] [address] 05/08/2025 12:04:54 05/08/2025 15:52:07 4332 Mariano Farley MD Main Office [address] [place] [address] 05/09/2025 12:17:15 05/09/2025 17:22:51 [email or web address] Mariano Farley MD Main Office [address] [place] [address] 05/12/2025 12:05:21 05/12/2025 19:44:55 4356 Mariano Farley MD Main Office [address] [place] [address] 05/13/2025 11:43:11 05/13/2025 17:35:49 4369 Mariano Farley MD Main Office [address] [place] [address] 05/14/2025 12:18:55 05/14/2025 19:59:05 4379 Mariano Farley MD Main Office [address] [place] [address] 05/15/2025 07:47:37 05/15/2025 09:52:44 4393 Mariano Farley MD Main Office [address] [place] [address] 05/16/2025 07:42:13 05/19/2025 06:53:35 4402 Mariano Farley MD Main Office [address] [place] [address] 05/19/2025 07:43:50 05/20/2025 07:03:34 Health Concerns Section Related Observation LastModified by Organization Detai ls LastModified Time None Recorded Concern Status LastModified by Organization Details LastModified Time None Recorded Payers Encounter Date Sequence Insurance Name Policy Number Policy Gregorio Covered Member ID Gregorio Member ID Guarantor Name 05/19/2025 1 [place] Zehra Shepherd [id number] Zehra Shepherd OBGyn Episode No OBEpisode recorded.
--- OUTSIDE RECORDS SUMMARY | 2025-06-01 10:58 | XMS_ITS | Continuity of Care Document ---
Author Organization [place] - [facility], Main Office Address [address] [place] [address] Care Team Providers Care Business Solution Analyst Name Role Phone JENNIFER MCCORD Primary Care [...] Modified By Organization Details Last Modified Time 04/29/2025 4197 BACKGROUND 59 y/o female diabetic with moderately [...] MD ____ ____ Session notes Today's date: 29Apr2025 Session # 20 of 40 planed Next planned HBOT: 30Apr2025May - Found safe for HBOT this date [...] session uneventfully. Tomorrow she returns to her community resource consultant for follow up. NATHAN DONIS 28May - not here due to conflicting medical appointment. NATHAN DONIS 29May - Cleared for HBOT this date and completed full session without problem. NATHAN DONIS 30May - Found safe for HBOT this date and completed full session without problem. She has also been back to see her Conche Loader And Unloader, Dr Catherine Weathers, who Ms Shepherd states was pleased with progress. NATHAN DONIS 02Jun - Patient cleared for HBOT today. VS stable. FSBG within range. Patient completed full session with no problem. Lg Agudelo APRN 03Jun - We received last week's note from her community resource consultant and Dr Weathers expressed satisfaction with progress. [...] session with no problem. Lg Agudelo APRN 10Jun - Patient cleared for HBOT today. [...] session with no problem. Lg Agudelo APRN Not available 05/01/2025 08:57:07 Reason for Referral None Reported. Procedures Surgical [...] Ngozi sharp [place] - [facility] 05/22/2025 09:49:19 05/21/20 [...] [facility] 05/16/2025 09:41:57 [...] Care Therapy Treatment Form completed Zuleyka Morales [place] - [facility] 04/29/2025 15:42:38 04/28/20 25 [facility] Therapy Treatment Form completed Ngozi gonzalez [place] - [facility] 04/28/2025 13:47:28 04/25/20 25 [facility] Therapy Treatment Form completed Ngozi gonzalez [place] - [facility] 04/25/2025 14:24:24 04/24/20 25 [facility] Therapy Treatment Form completed Zuleyka Morales [place] - [facility] 04/24/2025 14:37:59 04/23/20 25 [facility] Therapy Treatment Form completed Ngozi gonzalez [place] - [facility] 04/23/2025 13:52:55 04/22/20 25 [facility] Therapy Treatment Form completed [facility] - [facility] 04/22/2025 14:27:44 04/21/20 25 [facility] Therapy Treatment Form completed Ngozi gonzalez [place] - [facility] 04/21/2025 14:09:03 04/18/20 25 [facility] Therapy Treatment Form completed Ngozi carlos [place] - [facility] 04/18/2025 14:22:52 04/17/20 25 [facility] Therapy Treatment Form completed Ngozi carlos [place] - [facility] 04/17/2025 14:14:34 04/16/20 25 [facility] Therapy Treatment Form completed Ngozi carlos [place] - [facility] 04/16/2025 14:24:52 04/15/20 25 [facility] Therapy Treatment Form completed Ngozi carlos [place] - [facility] 04/15/2025 14:43:45 04/14/20 25 [facility] Therapy Treatment Form completed [facility] - [facility] 04/14/2025 14:39:53 04/11/20 25 [facility] Therapy Treatment Form completed Ngozi carlos [place] - [facility] 04/11/2025 14:38:24 04/10/20 25 [facility] Therapy Treatment Form completed [facility] - [facility] 04/10/2025 14:35:50 04/08/20 25 [facility] Therapy Treatment Form completed [facility] - [facility] 04/08/2025 14:29:12 04/07/20 25 [facility] Therapy Treatment Form completed Nahomi LaJoye [place] - [facility] 04/07/2025 11:54:59 [...] 18:06:39 04/03/20 25 Wound completed Shonajesse Bender [place] - [facility] 04/03/2025 13:47:21 03/13/20 24 Knee Replacement completed Shona Bender [place] - [facility] [...] 11/13/19 17 thumb surgery completed Shona Bender [place] [facility] 04/03/2025 13:56:03 [...] 100 % 117/72 mm[Hg] 116/74 mm[Hg] Ngozi THAKK[place] - [facility] 5 14:50:19 Date [...] 100 % 138/45 mm[Hg] 126/89 mm[Hg] Ngozi THAKK[place] - [facility] 5 14:31:09 Social [...] MD Main Office [address] [place] [address] 04/03/2025 13:39:59 04/03/2025 16:50:46 3890 Mariano Farley MD Main Office [address] [place] [address] 04/03/2025 15:32:51 04/03/2025 18:10:03 3904 Mariano Farley MD Main Office [address] [address] 04/04/2025 15:39:00 04/08/2025 08:19:46 3909 Mariano Farley MD Main Office [address] [place] [address] 04/05/2025 10:12:41 04/08/2025 08:22:20 3912 Mariano Farley MD Main Office [address] [place] [address] 04/06/2025 10:28:04 04/08/2025 08:26:15 3913 Mariano Farley MD Main Office [address] [place] [address] 04/07/2025 09:45:56 04/08/2025 08:30:09 3923 Mariano Farley MD Main Office [address] [place] [address] 04/08/2025 12:11:52 04/08/2025 18:52:34 3955 Mariano Farley MD Main Office [address] [place] [address] 04/10/2025 12:15:32 04/11/2025 13:41:15 3974 Mariano Farley MD Main Office [address] [place] [address] 04/11/2025 12:17:41 04/14/2025 08:14:43 3993 Mariano Farley MD Main Office [address] [place] [address] 04/14/2025 12:22:08 04/14/2025 17:08:51 4010 Mariano Farley MD Main Office [address] [place] [address] 04/15/2025 12:29:05 04/15/2025 18:07:29 4030 Mariano Farley MD Main Office [address] [place] [address] 04/16/2025 12:09:34 04/16/2025 16:28:25 4044 Mariano Farley MD Main Office [address] [place] [address] 04/17/2025 12:00:06 04/17/2025 15:57:18 4073 Mariano Farley MD Main Office [address] [place] , [place] [address] 04/18/2025 12:10:37 04/18/2025 17:06:48 4091 Mariano Farley MD Main Office [address] [place] [address] 04/21/2025 11:56:08 04/21/2025 16:04:26 4113 Mariano Farley MD Main Office [address] [place] , [place] [address] 04/22/2025 11:58:46 04/22/2025 14:50:54 4131 Mariano Farley MD Main Office [address] [place] , [place] [address] 04/23/2025 11:38:35 04/23/2025 14:47:00 4151 Mariano Farley MD Main Office [address] [place] , [place] [address] 04/24/2025 12:20:48 04/24/2025 15:34:39 4165 Mariano Farley MD Main Office [address] [place] , [place] [address] 04/25/2025 12:14:52 04/30/2025 15:40:51 4183 Mariano Farley MD Main Office [address] [place] [address] 04/28/2025 11:33:32 05/01/2025 08:04:21 Bryce7 Mariano Farley MD Main Office [address] [place] , [place] [address] 04/29/2025 13:00:52 05/01/2025 08:57:14 Health Concerns Section Related Observation LastModified by Organization Detai ls LastModified Time None Recorded Concern Status LastModified by Organization Details LastModified Time None Recorded Payers Encounter Date Sequence Insurance Name Policy Number Policy Gregorio Covered Member ID Gregorio Member ID Guarantor Name 04/29/2025 1 [place] Zehra Shepherd [id number] Zehra Smith Episode No OBEpisode recorded.
--- OUTSIDE RECORDS SUMMARY | 2025-06-01 10:58 | XMS_ITS | Continuity of Care Document ---
Author Organization [place] - [facility], Main Office Address [address] [place] [address] Care Team Providers Care Riding Coach Name Role Phone JENNIFER MCCORD Primary Care [...] Modified By Organization Details Last Modified Time 05/16/2025 4393 BACKGROUND 59 y/o female diabetic with moderately [...] ____ Session notes Today's date: Session # 33 of 40 planed Next planned HBOT: [id number] 22May - Found safe for HBOT this [...] session uneventfully. Tomorrow she returns to her upholsterer inside for follow up. NATHAN DONIS 28May - not here due to conflicting medical appointment. NATHAN DONIS 29May - Cleared for HBOT this date and completed full session without problem. NATHAN DONIS 30May - Found safe for HBOT this date and completed full session without problem. She has also been back to see her Senior Mainframe Developer, Dr Catherine Weathers, who Ms Shepherd states was pleased with progress. NATHAN DONIS 02Jun - Patient cleared for HBOT today. VS stable. FSBG within range. Patient completed full session with no problem. Lg Agudelo APRN 03Jun - We received last week's note from her upholsterer inside and Dr Weathers expressed satisfaction with progress. [...] full session with no problem. Lg Agudelo CONSTRUCTION CREW MEMBER 10Jun - Patient cleared for HBOT today. [...] full session with no problem. Lg Agudelo CONSTRUCTION CREW MEMBER 19Jun - Patient deemed safe for HBOT today. VS stable. FSBG within range. Patient completed full session with no problem. Lg Agudelo APRN 20Jun - Arrived today without knee scooter; her upholsterer inside has advised can do without. Cleared for [...] session with no problem. Julio Cesar.Francisco AndersonMagnus CONSTRUCTION CREW MEMBER 25Jun - Patient cleared for HBOT today. VS stable. FSBG within range. Patient completed full session with no problem. [place] CONSTRUCTION CREW MEMBER 26Jun - Patient cleared for HBOT today. VS stable. FSBG within range. Patient completed full session with no problem. Lg [place] CONSTRUCTION CREW MEMBER 27Jun - Found safe for HBOT this [...] and completed full session free of problem. [facility] [place] [email or web address] Not available 05/19/2025 06:53:28 Reason for Referral None Reported. Procedures Surgical History Date Name Laterality Status Provider Name and Address Organization Details Recorded Time 05/27/20 [facility] Therapy Treatment Form completed [facility] - [facility] 05/27/2025 09:45:15 05/26/20 25 [facility] Therapy Treatment Form completed [facility] - [facility] 05/26/2025 09:41:49 05/23/20 25 [facility] Therapy Treatment Form completed [facility] - [facility] 05/23/2025 09:53:41 05/22/20 25 [facility] Therapy Treatment Form completed [facility] - [facility] 05/22/2025 09:49:19 05/21/20 25 [facility] Therapy Treatment Form completed [facility] - [facility] 05/21/2025 09:56:08 05/20/20 25 [facility] Therapy Treatment Form completed [facility] 05/20/2025 09:41:29 05/19/20 25 [facility] Therapy Treatment Form completed [facility] - [facility] 05/19/2025 09:45:34 05/16/20 25 [facility] Therapy Treatment Form completed [facility] - [facility] 05/16/2025 09:41:57 05/15/20 25 [facility] Therapy Treatment Form completed [facility] - [facility] 05/15/2025 09:46:49 05/14/20 25 [facility] Therapy Treatment Form completed [facility] - [facility] 05/14/2025 14:06:43 05/13/20 25 [facility] Therapy Treatment Form completed [facility] - [facility] 05/13/2025 14:14:00 05/12/20 25 [facility] Therapy Treatment Form completed [facility] - [facility] 05/12/2025 14:06:32 05/09/20 25 [facility] Therapy Treatment Form completed [facility] - [facility] 05/09/2025 14:20:41 05/08/20 25 [facility] Therapy Treatment Form completed [facility] - [facility] 05/08/2025 14:16:34 05/07/20 25 [facility] Therapy Treatment Form completed [facility] - [facility] 05/07/2025 14:34:11 05/06/20 25 [facility] Therapy Treatment Form completed [facility] - [facility] 05/06/2025 14:33:30 05/05/20 25 [facility] Therapy Treatment Form completed [facility] - [facility] 05/05/2025 14:39:41 05/02/20 25 [facility] Therapy Treatment Form completed [facility] - [facility] 05/02/2025 14:38:10 05/01/20 25 [facility] Therapy Treatment Form completed [facility] - [facility] 05/01/2025 14:30:47 04/30/20 25 [facility] Therapy Treatment Form completed [facility] - [facility] 04/30/2025 14:50:00 04/29/20 25 [facility] Therapy Treatment Form completed Zuleyka Morales [place] - [facility] 04/29/2025 15:42:38 04/28/20 25 [facility] Therapy Treatment Form completed [facility] - [facility] 04/28/2025 13:47:28 04/25/20 25 [facility] Therapy Treatment Form completed Ngozi gonzalez [place] - [facility] 04/25/2025 14:24:24 04/24/20 25 [facility] Therapy Treatment Form completed Zuleyka THAKKAR - [facility] 04/24/2025 14:37:59 04/23/20 25 [facility] Therapy Treatment Form completed Ngozi THAKKAR - [facility] 04/23/2025 13:52:55 04/22/20 25 [facility] Therapy Treatment Form completed Ngozi THAKKAR - [facility] 04/22/2025 14:27:44 04/21/20 25 [facility] Therapy Treatment Form completed Ngozi gonzalez [place] - [facility] 04/21/2025 14:09:03 04/18/20 25 [facility] Therapy Treatment Form completed Ngozi THAKKAR - [facility] 04/18/2025 14:22:52 04/17/20 25 [facility] Therapy Treatment Form completed Ngozi gonzalez [place] - [facility] 04/17/2025 14:14:34 04/16/20 [...] Care Therapy Treatment Form completed Nahomi Roote [place] - [facility] 04/06/2025 12:08:17 04/05/20 25 [facility] Therapy Treatment Form completed Zuleyka THAKKAR - [facility] 04/05/2025 11:59:40 04/04/20 25 [facility] Therapy Treatment Form completed Zuleyka Beyden [place] - [facility] 04/04/2025 17:25:52 04/03/20 25 [facility] Therapy Treatment Form completed Mariano Farley MD [place] [facility] 04/03/2025 18:06:39 04/03/20 25 Wound completed Shona Bender [place] [facility] 04/03/2025 13:47:21 03/13/20 24 Knee Replacement completed Shona THAKK[place] - [facility] 04/03/2025 13:56:18 04/13/20 23 coronary artery bypass grafts x 4 completed Shona Bendre [place] - [facility] 04/03/2025 13:54:46 12/14/19 23 Gallbladder Surgery completed Shona Bender [place] - [facility] 04/03/2025 13:54:58 11/13/19 23 biopsy of skin completed Shona THAKKAR [facility] 04/03/2025 14:10:49 11/13/19 21 release of trigger finger completed Shona Bender [place] [facility] 04/03/2025 13:55:11 11/13/19 21 hammer toe operation completed Shona THAKKAR - [facility] 04/03/2025 13:55:27 11/13/19 19 procedure on shoulder completed Shona Bender [place] - [facility] 04/03/2025 13:55:44 11/13/19 [...] 77 tonsillectomy and adenoidectomy completed Shona Bender [place] - [facility] 04/03/2025 13:57:37 Imaging [...] 5 79 /min 16 /min 97.2 [degF] 71 /min 16 /min 96.4 [degF] 100 % 100 % 118/68 mm[Hg] 109/70 mm[Hg] [facility] - [facility] 5 09:42:39 Date Recorded Heart rate Respiratory rate Body temperature Heart rate Respiratory rate Body temperature Oxygen saturation Oxygen saturation in Arterial blood by Pulse oximetry Systolic And Diastolic Systolic And Diastolic Provider Name and Address Organization Details Last Updated DateTime 5 80 /min 16 /min 97.5 [degF] 76 /min 16 /min 97.3 [degF] 100 % 100 % 117/77 mm[Hg] 125/76 mm[Hg] [facility] - [facility] 5 09:45:53 Social History None recorded. Functional Status None [...] SNOMED-CT Code Diagnosis ICD10 Code Diagnosis Note 4030 Mariano Farley MD Main Office [address] [place] [address] 04/16/2025 12:09:34 04/16/2025 16:28:25 4044 Mariano Farley MD Main Office [address] [place] [address] 04/17/2025 12:00:06 04/17/2025 15:57:18 4073 Mariano Farley MD Main Office [address] [place] [address] 04/18/2025 12:10:37 04/18/2025 17:06:48 4091 Mariano Farley MD Main Office [address] [place] [address] 04/21/2025 11:56:08 04/21/2025 16:04:26 4113 Mariano Farley MD Main Office [address] [place] [address] 04/22/2025 11:58:46 04/22/2025 14:50:54 4131 Mariano Farley MD Main Office [address] [place] [address] 04/23/2025 11:38:35 04/23/2025 14:47:00 4151 Mariano Farley MD Main Office [address] [place] [address] 04/24/2025 12:20:48 04/24/2025 15:34:39 4165 Mariano Farley MD Main Office [address] [place] [address] 04/25/2025 12:14:52 04/30/2025 15:40:51 4183 Mariano Farley MD Main Office [address] [place] [address] 04/28/2025 11:33:32 05/01/2025 08:04:21 4197 Mariano Farley MD Main Office [address] [place] [address] 04/29/2025 13:00:52 05/01/2025 08:57:14 4218 Mariano Farley MD Main Office [address] [place] [address] 04/30/2025 12:43:07 05/01/2025 09:26:34 4235 Mariano Farley MD Main Office [address] [place] [address] 05/01/2025 12:24:55 05/01/2025 15:28:20 4256 Mariano Farley MD Main Office [address] [place] [address] 05/02/2025 12:29:37 05/05/2025 01:36:37 4269 Mariano Farley MD Main Office [address] [place] [address] 05/05/2025 12:35:08 05/05/2025 15:28:24 4285 Mariano Farley MD Main Office [address] [place] [address] 05/06/2025 12:22:35 05/06/2025 17:17:12 4302 Mariano Farley MD Main Office [address] [place] [address] 05/07/2025 12:27:25 05/07/2025 14:53:23 4316 Mariano Farley MD Main Office [address] [place] [address] 05/08/2025 12:04:54 05/08/2025 15:52:07 4332 Mariano Farley MD Main Office [address] [place] [address] 05/09/2025 12:17:15 05/09/2025 17:22:51 4343 Mariano Farley MD Main Office [address] [place] [address] 05/12/2025 12:05:21 05/12/2025 19:44:55 4356 Mariano Farley MD Main Office [address] [place] [address] 05/13/2025 11:43:11 05/13/2025 17:35:49 4369 Mariano Farley MD Main Office [address] [place] [address] 05/14/2025 12:18:55 05/14/2025 19:59:05 4379 Mariano Farley MD Main Office [address] [place] [address] 05/15/2025 07:47:37 05/15/2025 09:52:44 4393 Mariano Farley MD Main Office [address] [place] [address] 05/16/2025 07:42:13 05/19/2025 06:53:35 Health Concerns Section Related Observation LastModified by Organization Detai ls LastModified Time None Recorded Concern Status LastModified by Organization Details LastModified Time None Recorded Payers Encounter Date Sequence Insurance Name Policy Number Policy Gregorio Covered Member ID Gregorio Member ID Guarantor Name 05/16/2025 1 [place] Zehra Sanor [id number] Zehra Shepherd OBGyn Episode No OBEpisode recorded.
--- OUTSIDE RECORDS SUMMARY | 2025-06-01 10:58 | XMS_ITS | Encounter Summary ---
Author Organization Healthcare Address [address] [place] [address] Care Team Providers Care Senior Firmware Engineer Name Role Phone Amalia Walter [employer] E[employer] ANALYST Primary Care Provider [phone]- [phone] Encounter Details Date Type Department Care Team (Late st Contact Info) Description 03/07/2025 Results Follow-Up Obstetrics & Gynecology [address] [place] [address] Pepito Rosales MD [address] [place] [address] Social History Tobacco Use Types [...] Description 11/21/2025 9:40 AM EST Office Visit [facility] [address] [place] [address] [place] [address] Kristyn Gusman, [employer] ANALYST [address] [facility] [address] [place] [address] 03/06/2026 8:45 AM EDT Office Visit Obstetrics & Gynecology [address] [place] [address] Pepito Rosales MD [address] [place] [address] documented as of this encounter [...] documented as of this encounter Care Teams Senior Firmware Engineer Relationship Specialty Start Date End Date Amalia Walter APRN [address] [place] [id number] PCP - General 09/17/24 documented as of this encounter
--- OUTSIDE RECORDS SUMMARY | 2025-06-01 10:58 | XMS_ITS | Data Portability ---
Author Organization [facility] KRISTIE [facility] [place] [facility] Address [address] [place] [address] Care Team Providers Care [employer] Footballer Name Role Phone RAMANDEEP SMITH Primary Care Provider [phone] BETO VALENTE Orthopedic Surgeon CHAITANYA PARK Finisher Hand [phone] Assessment No assessment recorded. Plan of Treatment Reminders Order Date Submit Date Provider Last Modified By Organization Details Last Modified Time Details Appointments None recorded. Lab None recorded. Referral None recorded. Procedures None recorded. Surgeries None recorded. Imaging XR, knee, 3 view 024 RACCOON Not available 4 09:23:26 Medication Orders Medrol (Duglas) 4 mg tablets in a dose pack 024 [facility] [address] [facility], [address] [place], [address], 4 09:19:12 Patient TargetsNo targets recorded. Patient InstructionsNo instructions recorded. Reason for Referral None Reported. Results Created Date Observation Date Name Description Value Unit Range Abnormal Flag Note LastModifiedBy Organization Detail LastModifiedTime 05/08/20 24 05/08/2024 XR, knee, 3 view [place] [facility] [place] [address] [place] [address] Patimirta t Name: ZEHRA ESPINO Mariettamirta kumar : 1964 Patimirta kumar Orderi ng Provid er: ANUJ Cooley DERRICKARIANE EXAM DATE: 2023 EXAM: XR LT KNEE [...] By: Trey mar MD on 10:[address] Radiology [facility] [address] , [place], [address], 05/08/2024 11:15:38 05/29/20 24 05/29/2024 XR, knee, 3 view [facility] [address] [facility] [place] [address] Patien t Name: ZEHRA kumar : 1964 Patien t Orderi ng [facility] er: ANUJ KIRAN EXAM DATE: 2023 EXAM: [...] By: Trey mar MD on 9:[address] Radiology [place] [address] , [place], [address], 05/29/2024 10:05:59 06/26/20 24 06/26/2024 XR, joint , multi ple, 1 view [facility] [address] [place] [address] Patimitra t Name: ZEHRA kumar : 1964 Romeo kumar Hossein ng Provid er: ANUJ KIRAN [...] Trey mar MD on 8:45 AM [email or web address] [facility] [place] [address], [place], [address], 06/26/2024 09:02:34 07/22/20 24 07/22/2024 XR, knee, 3 view [facility] [address] [place] [address] Patimirta t Name: ZEHRA kumar : 1964 Romeo kumar Hossein ng Provid er: ANUJ KIRAN [...] Interp reted By: Trey mar MD Electr on ly Signed By: Trey mar MD on 07/22/20 24 9:03 AM [email or web address] [facility]iology [place] [address] , [place], [address], 07/22/2024 10:07:23 Result Notes Documentation Provider Name and Address Organization Details Recorded Time Xr, Knee, 3 View : [facility] [address] [place] [address] Patient Name: ZEHRA ESPINO Patient : 1965 Patient Ordering Provider: ANUJ KIRAN EXAM DATE: 05/08/2024 EXAM: XR LT KNEE 3 VIEWS COMPARISON: 11/21/2023 HISTORY: Follow-up of prior surgery. FINDINGS: There has been interval placement of a left knee total arthroplasty. There is no evidence of loosening. No fracture is identified. Contralateral knee: There are moderate to severe degenerative changes. IMPRESSION: 1. There is a left total knee arthroplasty in place without evidence of loosening. Interpreted By: Olvin Singh MD KIRAN PA-C [address] [place], [address], [facility] 05/08/2024 11:15:38 Xr, Knee, 3 View : [facility] [place] [address] [place] [address] Patient Name: ZEHRA ESPINO Patient : 1965 Patient Ordering Provider: ANUJ KIRAN EXAM DATE: 05/29/2024 EXAM: XR LT KNEE 3 VIEWS COMPARISON: 05/08/2024 HISTORY: Follow-up of prior surgery. FINDINGS: Again seen is a left knee total arthroplasty. There is no evidence of loosening. No fracture is identified. Contralateral knee: There are severe degenerative changes. IMPRESSION: 1. There is a left total knee arthroplasty in place without evidence of loosening. Interpreted By: Olvin Singh MD KIRAN PA-C [address] [place], [address], [facility] 05/29/2024 10:05:59 Xr, Joint, Multiple, 1 View : [facility] [address] [place] [address] Patient Name: ZEHRA ESPINO Patient : 1965 Patient Ordering Provider: ANUJ KIRAN EXAM DATE: 06/26/2024 EXAM: XR LONG LEG LEFT/ JOINT SURVEY COMPARISON: 05/29/2024 HISTORY: Follow-up of prior surgery. FINDINGS: There is a left total knee arthroplasty in place. There is no evidence of loosening or complication. There is mild valgus angulation. No fracture is identified. There are mild degenerative changes in the left hip and mild degenerative changes in the ankle. IMPRESSION: 1. There is a left knee arthroplasty in place with mild valgus angulation. Interpreted By: Olvin Singh MD KIRAN PA-C [address] [place], [address], [facility] 06/26/2024 09:02:34 Xr, Knee, 3 View : [facility] [address] [place] [address] Patient Name: ZEHRA ESPINO Patient : 1965 Patient Ordering Provider: ANUJ KIRAN EXAM DATE: 07/22/2024 EXAM: XR LT KNEE 3 VIEWS COMPARISON: 05/29/2024 HISTORY: Follow-up of prior surgery. FINDINGS: Again seen is a left knee total arthroplasty. There is no evidence of loosening. No fracture is identified. Contralateral knee: There are severe degenerative changes. IMPRESSION: 1. There is a left total knee arthroplasty in place without evidence of loosening. Interpreted By: Olvin Singh MD KIRAN PA-C [address] [place], [address], [facility] 07/22/2024 10:07:23 Problems Name Problem SNOMED Code Status Onset Date Resolution Date Notes Provider Name and Address Organization Details Recorded Time Radial styloid tenosynov itis 79595367 Active 2014 From Automated Load;Prov ider: Myron Thornton;S tatus: Active Not Available [facility] 6 08:50:20 Idiopathi c osteoarth ritis 106314249 Active 2014 From Automated Load;Prov ider: Myron Thornton;S tatus: Active Not Available [facility] 6 08:50:20 Skin sensation disturban ce 12695871 Active 2014 From Automated Load;Prov ider: Myron Thornton;S tatus: Active Not Available [facility] 6 08:50:20 Finding of sensation of skin Active 2014 From Automated Load;Prov ider: Myron Thornton;S tatus: Active Not Available [facility] 6 08:50:20 Snapping thumb syndrome 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 Active 2014 From Automated Load;Prov ider: Myron Thornton;S tatus: Active Not Available [facility] 6 08:50:20 Injury of tendon of the rotator cuff of shoulder 013070708 Active 2018 PEDRO CHAVES II PT, DPT [address] [place], [address] , [facility] 9 07:20:38 Muscle weakness 06799956 Active 2018 PEDRO CHAVES II PT, DPT [address] [place], [address] , [facility] 9 07:20:39 Spasm 54367181 Active 2018 PEDRO CHAVES II PT, DPT [address] [place], [address] , [facility] 9 07:20:40 Muscular incoordin ation 71560729 Active 2018 PEDRO CHAVES II, PT, DPT [address] [place], [address] , [facility] 9 07:20:41 History of operative procedure on shoulder 443518674 Active 2018 PEDRO CHAVES II, PT, DPT [address] [place], [address] , [facility] 9 11:27:20 Biceps tendiniti s 972148143 Active 2018 PEDRO CHAVES II, PT, DPT [address] [place], [address] , [facility] 9 11:27:20 History of arthrosco py of knee joint 974567396 Active 2018 Gigi caal [facility] 9 16:25:08 Abnormal gait 12756870 Active 2018 Gigi caal [facility] 9 16:25:22 Coronary arteriosc lerosis 51944347 Active 2023 EMMANUELLE Andrew MD [address] [place], [address] , [facility] 4 17:48:09 History of percutane ous coronary intervent ion 222721947 Active 2023 EMMANUELLE Andrew MD [address] [place], [address] , [facility] 4 17:48:10 Type 2 diabetes mellitus without complicat ion 920148910 Active 2023 EMMANUELLE Andrew MD [address] [place], [address] , [facility] 4 17:48:11 Osteoarth ritis of left knee joint 16155222553 9109 Active 2023 EMMANUELLE Andrew MD [address] [place], [address] , [facility] 17:48:13 Problem Notes None recorded. Procedures Surgical History Date Name Laterality Status Provider Name and Address Organization Details Recorded Time 4 PCM Visit completed Mekhi Weathers [facility] 04/11/2024 14:50:11 4 Injection Joint/Bursa, Major completed Holly Umanzor [facility] 11/21/2023 08:46:28 3 Injection Joint/Bursa, Major completed Jerod Del Castillo [facility] 06/23/2023 07:49:10 3 Injection Joint/Bursa, Second, Major completed Rosalind Ferreira [facility] 05/22/2023 17:27:54 2 Injection Trigger Finger Ortho completed MYRON THORNTON MD [address] [place], [address], [facility] 08/16/2022 09:40:25 9 PT Manual Therapy completed PEDRO CHAVES II, PT, DPT [address] [place], [address], [facility] 04/23/2019 09:22:49 9 PT Therapeutic Exercise completed PEDRO CHAVES II, PT, DPT [address] [place], [address], [facility] 04/23/2019 09:22:36 9 PT Manual Therapy completed PEDRO CHAVES II, PT, DPT [address] [place] [place], [address], [facility] 04/19/2019 09:38:21 9 PT Therapeutic Exercise completed PEDRO CHAVES II, PT, DPT [address] [place], [address], [facility] 04/19/2019 09:38:09 9 PT Manual Therapy completed PEDRO CHAVES II, PT, DPT [address] [place], [address], [facility] 04/19/2019 14:52:48 9 PT Therapeutic Exercise completed PEDRO CHAVES II, PT, DPT [address] [place], [address], [facility] 04/19/2019 14:52:18 9 PT Manual Therapy completed PEDRO CHAVES II, PT, DPT [address] [place], [address], [facility] 04/11/2019 13:14:32 9 PT Therapeutic Exercise completed PEDRO CHAVES II, PT, DPT [address] [place], [address], [facility] 04/11/2019 13:14:26 9 PT Evaluation - Moderate Complexity completed PEDRO CHAVES II, PT, DPT [address] [place], [address], [facility] 03/27/2019 11:19:26 9 PT Therapeutic Exercise completed PEDRO CHAVES II, PT, DPT [address] [place], [address], [facility] 03/27/2019 11:19:48 9 Suture/Staple removal completed Gian LOAIZA PA-C [address] [place], [address], [facility] 03/17/2019 16:37:13 9 PT Manual Therapy completed PEDRO CHAVES II, PT, DPT [address] [place], [address], [facility] 02/05/2019 11:48:02 9 PT Therapeutic Exercise completed PEDRO CHAVES II, PT, DPT [address] [place], [address], [facility] 02/05/2019 11:48:00 9 PT Therapeutic Exercise completed PEDRO CHAVES II, PT, DPT [address] [place], [address], [facility] 02/03/2019 21:33:58 9 PT Therapeutic Exercise completed PEDRO GOODWINT II, PT, DPT [address] [place], [address], [facility] 01/23/2019 10:48:24 9 PT Therapeutic Exercise completed PEDRO GOODWINT II, PT, DPT [address] [place], [address], [facility] 01/16/2019 08:36:06 9 PT Manual Therapy completed PEDRO GOODWINT II, PT, DPT [address] [place], [address], [facility] 01/09/2019 10:18:54 9 PT Therapeutic Exercise completed PEDRO GOODWINT II, PT, DPT [address] [place], [address], [facility] 01/09/2019 10:18:36 9 PT Manual Therapy completed PEDRO GOODWINT II, PT, DPT [address] [place], [address], [facility] 01/01/2019 14:17:20 9 PT Therapeutic Exercise completed PEDRO CHAVES II, PT, DPT [address] [place], [address], [facility] 01/01/2019 14:17:07 9 PT Manual Therapy completed PEDRO GOODWINT II, PT, DPT [address] [place], [address], [facility] 01/03/2019 08:09:40 9 PT Therapeutic Exercise completed PEDRO GOODWINT II, PT, DPT [address] [place], [address], [facility] 01/03/2019 08:09:27 9 PT Therapeutic Exercise completed PEDRO GOODWINT II, PT, DPT [address] [place], [address], [facility] 12/20/2018 11:07:47 9 PT Evaluation - Moderate Complexity completed PEDRO CHAVES II, PT, DPT [address] [place], [address], [facility] 12/20/2018 07:13:15 9 PT Therapeutic Exercise completed PEDRO CHAVES II, PT, DPT [address] [place], [address], [facility] 12/20/2018 07:13:36 7 Op Note completed MYRON THORNTON MD [address] [place], [address], [facility] 03/20/2017 08:16:54 Imaging Results None recorded. Procedure Notes None recorded. Medical Equipment None Reported. Allergies Allergen ID Allergen Name Allergen Category Reaction Reaction Severity Criticality Documentation Date Start Date Code Code System Note Provider Name and Address Organization Details Recorded Time 187814 lisinopri l medicatio n cough Not available Not available 11/29/2018 86729 RxNorm Jerod Del Castillo [facility] 9 09:54:54 Medications Name Sig Start [...] Not Available Not Available No t Available Dafter 10 mg-325 mg tablet Take 1 tablet [...] Updated DateTime 05/08/2024 175.26 cm 26.4 kg/m2 32872.03 g Lilia Rashid [facility] 05/08/2024 10:49:10 Date Recorded Body height Body mass index (BMI) Body weight Systolic And Diastolic Provider Name and Address Organization Details Last Updated DateTime 05/29/2024 175.26 cm 26.4 kg/m2 71003.03 g 125/80 mm[Hg] Mekhi Weathers [facility] 05/29/2024 09:32:10 Date Recorded Body height Provider Name an d Address Organization Details Last Updated DateTime 06/26/2024 175.26 cm Bola Carlos [facility] 06/26/2024 08:46:55 Date Recorded Body height Body mass index (BMI) Body weight Provider Name and Address Organization Details Last Updated DateTime 07/22/2024 175.26 cm 26.4 kg/m2 51039.03 g Holly Umanzor [facility] 07/22/2024 08:02:03 Social History Question Answer Notes LastModified by Organizat ion Details LastModified Time Tobacco Smoking Status Former Smoker Smita estrada [facility] 03/03/2017 15:28:02 Accident Related Injury Yes Information not available 03/03/2017 What Is Your Level Of Caffeine Consumption? Moderate [email or web address] Information not available 03/03/2017 Which Of Your Hands Is Dominant? Right [email or web address] Information not available 03/03/2017 Which Hand Is Involved? Right [email or web address] Information not available 03/03/2017 Rate The Severity Of Your Symptoms: (0-10 With 0=none And 10=worst Possible) 3 [email or web address] Information not available 02/05/2019 When Are Your Symptoms The Worst? Night Day Neither Neither [email or web address] Information not available 03/03/2017 Date Of Injury: 06/11/2015 Informati on not available 03/03/2017 Have You Been Treated For This Problem Before? Yes [email or web address] Information not available 03/03/2017 How Long Have You Had These Symptoms? 06/11/2015 [email or web address] Information not available 03/03/2017 Will This Be Filed As Workers' Compensation? Yes [email or web address] Information not available 03/03/2017 What Was The Date Of Your Most Recent Tobacco Screening? 05/13/2019 Information not available 12/31/2019 Has Tobacco Cessation Counseling Been Provided? No [email or web address] Information not available 03/03/2017 Work Related Injury? Yes Information not available 03/03/2017 Sex: Unknown Functional Status Question Answer Note LastModified by Organizat ion Details LastModified Time Do you use any illicit or recreational drugs? No [email or web address] Information not available 03/03/2017 What is your level of alcohol consumption? Occasional [email or web address] Information not available 03/03/2017 Are you currently employed? Yes [email or web address] Information not available 03/03/2017 What is your occupation? [employer] [email or web address] Information not available 03/03/2017 Mental Status None recorded. Family History Relationship Description Onset Age of this Age Resolved Age Notes LastModified by Organization Details LastModified Time Father No current problems or disability [email or web address] Not available 03/03 15:27:56 Mother No current problems or disability [email or web address] Not available 03/03 15:27:56 Medical History Condition Response Allergies/Hayfever N Anxiety/Depression N Other N Gout N Thyroid Disease N Kidney Stones N Heart Conditions N Hernia N Migraines N COPD N Glaucoma N Pneumonia N Skin Problems N Immune System Disorder N Anesthesia Complications N Heart Attack ([place]) N Mental Illness N Neurological Problems N [...] SNOMED-CT Code Diagnosis ICD10 Code Diagnosis Note [id number] MYRON THORNTON MD [facility] [address] [address] 03/03/2017 14:23:32 03/03/2017 16:45:25 Snapping thumb syndrome 33100611 M65.311 Right trigger thumb Osteoarthr osis of the carpometacarpal joint of the thumb 41247772 M18.11 Previous x-rays of the right wrist dated 07/30/15 demonstrat e mild arthritic changes of the thumb [facility] joint (CSI: 01/19/16) [id number] MYRON THORNTON MD SURGERY SCHEDULE [address] [place] [address] 03/20/2017 06:04:45 03/20/2017 06:10:21 [id number] MYRON THORNTON MD [facility] [address] [place] [address] 03/31/2017 15:16:43 03/31/2017 16:07:47 Postoperative care 897014075 Z48.89 2 weeks status post right trigger thumb release (03/20/17) [id number] MYRON THORNTON MD [facility] [address] [place] [address] 05/05/2017 15:10:04 05/05/2017 16:51:23 Postoperative care 342179713 Z48.89 6 weeks status post right trigger thumb release (03/20/17) [id number] BETO VALENTE MD [facility] [address] [place] [address] 11/29/2018 09:31:09 11/29/2018 12:08:29 Pain of right shoulder joint 3043049022 4643496 M25.823 [id number] PEDRO CHAVES II, PT, DPT PHYSICAL THERAPY / HAND THERAPY [facility] [address] [place] [address] 12/06/2018 13:43:55 12/20/2018 11:22:54 Injury of tendon of the rotator cuff of shoulder 284216733 S46.091D Muscle weakness 41433826 M62.81 Spasm 48776461 R25.2 Muscular incoordination 40580240 R27.8 [id number] PEDRO CHAVES II, PT, DPT PHYSICAL THERAPY / HAND THERAPY [facility] [address] [place] [address] 12/20/2018 10:12:44 12/20/2018 11:46:47 Injury of tendon of the rotator cuff of shoulder 372079584 S46.091D Muscle weakness 06113517 M62.81 Muscular incoordination 91197536 R27.8 Spasm 90511938 R25.2 [id number] PEDRO CHAVES II, PT, DPT PHYSICAL THERAPY / HAND THERAPY [facility] [address] [place] [address] 12/28/2018 08:00:23 01/03/2019 10:08:18 Injury of tendon of the rotator cuff of shoulder 749856589 S46.091D Muscle weakness 78227176 M62.81 Muscular incoordination 76877851 R27.8 Spasm 82816155 R25.2 [id number] PEDRO CHAVES II, PT, DPT PHYSICAL THERAPY / HAND THERAPY [facility] [address] [place] [address] 01/01/2019 10:25:25 01/01/2019 12:32:38 Muscle weakness 43646183 M62.81 Injury of tendon of the rotator cuff of shoulder 739935882 S46.091D Muscular incoordination 13203965 R27.8 Spasm 89594106 R25.2 [id number] BETO VALENTE MD [facility] [address] [place] [address] 01/01/2019 10:25:46 01/01/2019 14:47:36 Pain of right shoulder joint 1544874231 2554761 M25.739 [id number] PEDRO CHAVES II, PT, DPT PHYSICAL THERAPY / HAND THERAPY [facility] [address] [place] [address] 01/09/2019 08:53:33 01/09/2019 10:33:49 Muscle weakness 86932318 M62.81 Injury of tendon of the rotator cuff of shoulder 476787508 S46.091D Muscular incoordination 08342535 R27.8 Spasm 38537559 R25.2 [id number] PEDRO CHAVES II, PT, DPT PHYSICAL THERAPY / HAND THERAPY [facility] [address] [facility] [place] [address] 01/16/2019 07:16:12 01/16/2019 08:39:53 Injury of tendon of the rotator cuff of shoulder 710849025 S46.091D Muscle weakness 53675852 M62.81 Muscular incoordination 57292653 R27.8 Spasm 79172519 R25.2 [id number] PEDRO CHAVES II, PT, DPT PHYSICAL THERAPY / HAND THERAPY [facility] [address] [place] [address] [place] [address] 01/23/2019 07:26:00 01/23/2019 13:26:37 Muscle weakness 50866873 M62.81 Injury of tendon of the rotator cuff of shoulder 040303884 S46.091D Muscular incoordination 41682890 R27.8 Spasm 72590468 R25.2 [id number] PEDRO CHAVES II, PT, DPT PHYSICAL THERAPY / HAND THERAPY [facility] [address] [place] [address] [place] [address] 01/30/2019 07:24:14 02/04/2019 08:52:18 Injury of tendon of the rotator cuff of shoulder 832603191 S46.091D Muscle weakness 90245269 M62.81 Muscular incoordination 80767754 R27.8 Spasm 72504518 R25.2 [id number] PEDRO CHAVES II, PT, DPT PHYSICAL THERAPY / HAND THERAPY [facility] [address] [place], [place] [address] [place] [address] 02/05/2019 10:45:34 02/05/2019 13:35:49 Muscle weakness 32564386 M62.81 Injury of tendon of the rotator cuff of shoulder 023442635 S46.091D Muscular incoordination 96570680 R27.8 Spasm 12195614 R25.2 [id number] BETO VALENTE MD [facility] [address] [place] [address] 02/05/2019 11:48:20 02/05/2019 13:47:18 Pain of right shoulder joint 0254970763 5100496 M25.629 [id number] BETO VALENTE MD SURGERY SCHEDULE [address] [place] [address] 03/08/2019 09:13:57 03/08/2019 09:35:08 [id number] Gian LOAIZA PA-C [facility] [address] [place] [address] 03/14/2019 14:42:11 03/14/2019 15:46:39 Postoperative care 381090099 Z48.89 [id number] PEDRO CHAVES II, PT, DPT PHYSICAL THERAPY / HAND THERAPY [facility] [address] [address] 03/27/2019 07:51:23 03/27/2019 13:04:43 Muscle weakness 27140459 M62.81 History of operative procedure on shoulder 221424308 Z98.890 Biceps tendinitis 816882 007 M75.21 Muscular incoordination 34806973 R27.8 [id number] PEDRO CHAVES II, PT, DPT PHYSICAL THERAPY / HAND THERAPY [facility] [address] [address] 04/11/2019 08:18:18 04/11/2019 09:23:31 Biceps tendinitis 460579067 M75.21 Muscle weakness 27363420 M62.81 Muscular incoordination 31920959 R27.8 History of operative procedure on shoulder 414851777 Z98.825 [id number] Gian LOAIZA PA-C [facility] [address] [address] 04/11/2019 08:18:50 04/11/2019 09:59:59 Postoperative care 692108723 Z48.89 [id number] PEDRO CHAVES II, PT, DPT PHYSICAL THERAPY / HAND THERAPY [facility] [address] [address] 04/16/2019 08:21:36 04/22/2019 09:36:50 Biceps tendinitis 113097770 M75.21 Muscle weakness 75027671 M62.81 Muscular incoordination 30225500 R27.8 History of operative procedure on shoulder 801987125 Z98.708 [id number] PEDRO CHAVES II, PT, DPT PHYSICAL THERAPY / HAND THERAPY [facility] [address] [address] 04/19/2019 08:45:02 04/19/2019 15:37:00 Biceps tendinitis 617066943 M75.21 Muscle weakness 59215278 M62.81 Muscular incoordination 31705166 R27.8 History of operative procedure on shoulder 328431025 Z98.828 [id number] BETO VALENTE MD [facility] [address] [place] [address] 04/22/2019 14:42:50 05/06/2019 09:40:22 Tear of lateral meniscus of knee 873739571 S83.281A Pes anseri nus bursitis of right knee 3138393421 286571 M70.51 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 268633949 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 [id number] PEDRO CHAVES II, PT, DPT PHYSICAL THERAPY / HAND [facility]APY [facility] [address] [address] 04/23/2019 08:45:17 04/23/2019 12:56:49 Biceps tendinitis 685116928 M75.21 Muscle weakness 94742969 M62.81 Muscular incoordination 37974927 R27.8 History of operative procedure on shoulder 567210245 Z98.800 [id number] PEDRO CHAVES II, PT, DPT PHYSICAL THERAPY / [facility]Y [facility] [address] [address] 04/26/2019 08:45:45 05/01/2019 10:20:49 Biceps tendinitis 139920999 M75.21 Muscle weakness 23720430 M62.81 History of operative procedure on shoulder 996870483 Z98.890 Muscular incoordination 34108960 R27.8 [id number] BETO VALENTE MD ORTHOPEDI CS [facility] [address] [place] [address] 04/30/2019 08:04:05 04/30/2019 10:03:41 Pain in right knee 6488689221 77757 M25.448 [id number] PEDRO CHAVES II, PT, DPT PHYSICAL THERAPY / [facility]APY [facility] [address] [place] [address] 04/30/2019 08:06:50 05/01/2019 13:41:09 Biceps tendinitis 030269178 M75.21 Muscle weakness 65689784 M62.81 Muscular incoordination 63892528 R27.8 History of operative procedure on shoulder 287766939 Z98.438 [id number] PEDRO CHAVES II, PT, DPT PHYSICAL THERAPY / [facility]APY [facility] [address] [place] [address] 05/07/2019 08:17:18 05/07/2019 09:55:31 Biceps tendinitis 216675912 M75.21 Muscle weakness 86986476 M62.81 History of operative procedure on shoulder 521543348 Z98.890 Muscular incoordination 51055394 R27.8 [id number] PEDRO CHAVES II, PT, DPT PHYSICAL THERAPY / [facility]Y [facility] [address] [place] [address] 05/10/2019 08:53:18 05/21/2019 08:14:13 Biceps tendinitis 586155643 M75.21 Muscle weakness 83346398 M62.81 Muscular incoordination 09152883 R27.8 History of operative procedure on shoulder 905964680 Z98.838 [id number] PEDRO CHAVES II, PT, DPT PHYSICAL THERAPY / [facility] [address] [place] [address] 05/13/2019 08:50:22 05/15/2019 08:31:09 Biceps tendinitis 990255841 M75.21 Muscle weakness 83172408 M62.81 Muscular incoordination 61725416 R27.8 History of operative procedure on shoulder 516520983 Z98.513 [id number] BETO VALENTE MD [facility] [address] [facility] [place] [address] 05/13/2019 08:51:00 05/13/2019 15:21:13 Pain of right shoulder joint 3513070443 8058857 M25.253 [id number] PEDRO CHAVES II, PT, DPT PHYSICAL THERAPY / [facility] [address] [place] [address] 6 05/15/2019 08:27:39 05/15/2019 10:39:55 Biceps tendinitis 915060765 M75.21 Muscle weakness 08538217 M62.81 Muscular incoordination 34090758 R27.8 History of operative procedure on shoulder 059641141 Z98.077 [id number] PEDRO CHAVES II, PT, DPT PHYSICAL THERAPY / [facility] [address] [place] [address] 05/20/2019 08:18:17 05/20/2019 17:28:12 Biceps tendinitis 592665280 M75.21 Muscle weakness 52547197 M62.81 Muscular incoordination 93070028 R27.8 History of operative procedure on shoulder 221614922 Z98.723 [id number] PEDRO CHAVES II, PT, DPT PHYSICAL THERAPY / [facility] [address] [facility] [address] 05/23/2019 09:54:02 05/24/2019 10:32:36 Biceps tendinitis 023224384 M75.21 Muscle weakness 19020077 M62.81 Muscular incoordination 75693048 R27.8 Injury of tendon of the rotator cuff of shoulder 329674266 S46.091D [id number] PEDRO CHAVES II, PT, DPT PHYSICAL THERAPY / [facility] [address] [place] [address] 05/27/2019 09:48:34 05/27/2019 11:36:38 Biceps tendinitis 838897570 M75.21 Muscle weakness 26426018 M62.81 Muscular incoordination 06077458 R27.8 History of operative procedure on shoulder 457053350 Z98.099 [id number] SEAN GUIDRY, JOSE A PHYSICAL THERAPY / HAND TH[facility]APY [facility] [place] [address] 06/05/2019 08:42:58 06/05/2019 11:40:58 Biceps tendinitis 364613467 M75.21 Muscle weakness 30043271 M62.81 Muscular incoordination 75403562 R27.8 History of operative procedure on shoulder 807177956 Z98.890 Injury of tendon of the rotator cuff of shoulder 536444454 S46.001D [id number] BETO VALENTE MD SURGERY SCHEDULE [address] [place] [address] 06/07/2019 06:19:58 06/07/2019 06:21:26 [id number] PEDRO CHAVES II, PT, DPT PHYSICAL THERAPY / [facility]APY [facility] [place] [address] 06/10/2019 08:50:50 06/17/2019 11:34:27 Biceps tendinitis 731988460 M75.21 Muscle weakness 35474269 M62.81 Injury of tendon of the rotator cuff of shoulder 608094551 S46.091D Muscular incoordination 72052678 R27.8 [id number] R AUGUSTUS LOAZIA PA-C [facility] [place] [address] 06/13/2019 14:11:08 06/13/2019 14:54:35 Postoperative care 768800594 Z48.89 [id number] PEDRO CHAVES II, PT, DPT PHYSICAL THERAPY / [facility]Y [facility] [place] [address] 06/13/2019 14:13:24 06/18/2019 14:53:33 Biceps tendinitis 390829557 M75.21 Muscle weakness 67749864 M62.81 History of operative procedure on shoulder 576658597 Z98.890 Muscular incoordination 70956552 R27.8 [id number] PEDRO CHAVES II, PT, DPT PHYSICAL THERAPY / [facility]Y [facility] [place] [address] 06/17/2019 07:49:24 06/24/2019 14:45:57 Biceps tendinitis 204012722 M75.21 Muscle weakness 69277914 M62.81 Muscular incoordination 66101366 R27.8 History of operative procedure on shoulder 560264952 Z98.927 [id number] BETO VALENTE MD [facility] [address] [place] [address] 06/17/2019 07:52:06 06/17/2019 09:40:09 Pain of right shoulder joint 8633453001 0658868 M25.247 [id number] PEDRO CHAVES II, PT, DPT PHYSICAL THERAPY / HAND [facility]APY [facility] [address] [place] [address] 06/20/2019 08:44:33 06/26/2019 10:32:07 Muscle weakness 14456979 M62.81 Muscular incoordination 43000738 R27.8 Injury of tendon of the rotator cuff of shoulder 268773728 S46.091D History of operative procedure on shoulder 291557063 Z98.933 [id number] PEDRO CHAVES II, PT, DPT PHYSICAL THERAPY / [facility]APY [facility] [address] [place] [address] 06/24/2019 07:51:58 06/28/2019 08:06:30 Muscle weakness 30092623 M62.81 Muscular incoordination 32382838 R27.8 History of operative procedure on shoulder 866124695 Z98.890 Injury of tendon of the rotator cuff of shoulder 856767591 S46.091D [id number] PEDRO CHAVES II, PT, DPT PHYSICAL THERAPY / [facility]APY [facility] [address] [place] [address] 06/27/2019 08:23:59 07/02/2019 12:57:41 Biceps tendinitis 652315935 M75.21 Muscle weakness 51017596 M62.81 Muscular incoordination 48879963 R27.8 History of operative procedure on shoulder 947704816 Z98.202 [id number] PEDRO CHAVES II, PT, DPT PHYSICAL THERAPY / [facility]APY [facility] [address] [place] [address] 6 06/27/2019 09:05:46 07/02/2019 13:01:22 History of arthroscopy of knee joint 578618034 Z98.890 Muscle weakness 63231407 M62.81 Muscular incoordination 19063101 R27.8 Abnormal gait 15250657 R 26.9 [id number] PEDRO CHAVES II, PT, DPT PHYSICAL THERAPY / [facility]APY [facility] [address] [place] [address] 07/01/2019 09:15:09 07/02/2019 16:43:38 Biceps tendinitis 190733129 M75.21 Muscle weakness 84577123 M62.81 Injury of tendon of the rotator cuff of shoulder 816539359 S46.091D Muscular incoordination 76549559 R27.8 [id number] PEDRO CHAVES II, PT, DPT PHYSICAL THERAPY / [facility]Y [facility] [place] [address] 07/04/2019 08:37:58 07/04/2019 15:54:01 Biceps tendinitis 382098349 M75.21 Muscle weakness 95157129 M62.81 Muscular incoordination 26766169 R27.8 History of operative procedure on shoulder 320290949 Z98.393 [id number] PEDRO CHAVES II, PT, DPT PHYSICAL THERAPY / HAND [facility]APY [facility] [place] [address] 07/04/2019 08:39:01 07/16/2019 16:19:15 Abnormal gait 03329860 R26.9 Muscle weakness 40975662 M62.81 Muscular incoordination 30600105 R27.8 History of arthroscopy of knee joint 870926650 Z98.969 [id number] R AUGUSTUS LOAIZA PA-C [facility] [place] [address] 07/04/2019 08:39:56 07/04/2019 13:52:12 Postoperative care 661262320 Z48.89 [id number] PEDRO CHAVES II, PT, DPT PHYSICAL THERAPY / [facility]APY [facility] [address] [place] [address] 07/09/2019 07:39:22 07/09/2019 15:11:07 Abnormal gait 12247115 R26.9 Muscle weakness 00570589 M62.81 Muscular incoordination 99662086 R27.8 History of arthroscopy of knee joint 493710270 Z98.272 [id number] PEDRO CHAVES II, PT, DPT PHYSICAL THERAPY / [facility]APY [facility] [address] [place] [address] 07/09/2019 07:40:03 07/09/2019 15:10:02 Biceps tendinitis 132927918 M75.21 Muscle weakness 93571391 M62.81 Muscular incoordination 38917020 R27.8 History of operative procedure on shoulder 238515395 Z98.930 [id number] PEDRO CHAVES II, PT, DPT PHYSICAL THERAPY / [facility]APY [facility] [address] [place] [address] 07/11/2019 08:26:10 07/26/2019 08:02:14 Biceps tendinitis 950829648 M75.21 Muscle weakness 84442842 M62.81 Muscular incoordination 65083833 R27.8 History of operative procedure on shoulder 704798464 Z98.808 [id number] PEDRO CHAVES II, PT, DPT PHYSICAL THERAPY / [facility]APY [facility] [address] [place] [address] 07/16/2019 12:44:55 07/16/2019 14:36:53 Biceps tendinitis 791480794 M75.21 Muscle weakness 51181493 M62.81 Muscular incoordination 31710283 R27.8 History of arthroscopy of knee joint 083843344 Z98.890 History of operative procedure on shoulder 422834824 Z98.946 [id number] PEDRO CHAVES II, PT, DPT PHYSICAL THERAPY / HAND TH[facility]APY [facility] [address] [place] [address] 6 07/19/2019 08:38:14 08/01/2019 07:13:05 Biceps tendinitis 857733456 M75.21 Muscle weakness 34965771 M62.81 Injury of tendon of the rotator cuff of shoulder 851174391 S46.091D History of operative procedure on shoulder 930381370 Z98.548 [id number] PEDRO CHAVES II, PT, DPT PHYSICAL THERAPY / [facility] [address] [facility] [address] [place] [address] 07/19/2019 08:39:44 07/24/2019 08:19:48 Abnormal gait 55116179 R26.9 Muscle weakness 49400284 M62.81 History of arthroscopy of knee joint 276186116 Z98.203 [id number] PEDRO CHAVES II, PT, DPT PHYSICAL THERAPY / [facility] [address] [address] [address] 07/23/2019 09:48:51 07/23/2019 13:28:20 Abnormal gait 66725108 R26.9 Muscle weakness 90081675 M62.81 Muscular incoordination 36369079 R27.8 History of arthroscopy of knee joint 020325816 Z98.019 [id number] BETO VALENTE MD [facility] [address] [place], [place] [address] [place] [address] 07/23/2019 09:51:16 07/23/2019 12:40:27 Pain of right shoulder joint 7253097230 4674929 M25.216 [id number] PEDRO CHAVES II, PT, DPT PHYSICAL THERAPY / [facility]APY [facility] [address] [place], [place] [address] [place] [address] 6 07/23/2019 09:52:01 07/24/2019 16:36:10 Muscle weakness 92430450 M62.81 Injury of tendon of the rotator cuff of shoulder 737773092 S46.091D Muscular incoordination 45361113 R27.8 History of operative procedure on shoulder 812173772 Z98.354 [id number] PEDRO CHAVES II, PT, DPT PHYSICAL THERAPY / [facility] [address] [facility] [address] [address] 07/25/2019 08:46:43 08/05/2019 15:18:30 Biceps tendinitis 251469469 M75.21 Muscle weakness 32436692 M62.81 Muscular incoordination 71805330 R27.8 History of operative procedure on shoulder 090426526 Z98.378 [id number] PEDRO CHAVES II, PT, DPT PHYSICAL THERAPY / [facility] [address] [place] [address] 6 07/30/2019 08:43:36 08/12/2019 08:30:00 Biceps tendinitis 524805435 M75.21 Muscle weakness 69779406 M62.81 Muscular incoordination 35290057 R27.8 History of operative procedure on shoulder 433229019 Z98.388 [id number] PEDRO CHAVES II, PT, DPT PHYSICAL THERAPY / [facility] [address] [place] [address] 07/30/2019 08:44:27 08/12/2019 08:30:49 Abnormal gait 32504371 R26.9 Muscle weakness 10540265 M62.81 History of arthroscopy of knee joint 391986992 Z98.890 Muscular incoordination 12768651 R27.8 [id number] PEDRO CHAVES II, PT, DPT PHYSICAL THERAPY / [facility] [address] [place] [address] 08/01/2019 08:39:40 08/09/2019 09:11:04 Biceps tendinitis 104838162 M75.21 Muscle weakness 05725190 M62.81 History of operative procedure on shoulder 439671943 Z98.890 Muscular incoordination 62426490 R27.8 [id number] PEDRO CHAVES II, PT, DPT PHYSICAL THERAPY / [facility] [address] [address] 08/05/2019 09:36:20 08/12/2019 08:07:57 Biceps tendinitis 438238380 M75.21 Muscle weakness 03269319 M62.81 Muscular incoordination 65766273 R27.8 History of operative procedure on shoulder 184082863 Z98.841 [id number] BETO VALENTE MD [facility] [address] [place] [address] 08/15/2019 09:31:43 08/15/2019 14:47:54 Osteoarthritis of right knee joint 6188145894 31551 M17.11 [id number] BETO VALENTE MD [facility] [address] [place] [address] 6 08/27/2019 10:16:36 08/27/2019 12:39:10 Pain of right shoulder joint 5614638471 6630046 M25.090 [id number] BETO VALENTE MD [facility] [address] [place] [address] 09/23/2019 10:34:30 09/25/2019 12:32:00 Tear of lateral meniscus of knee 979280712 S83.271A [id number] BETO VALENTE MD [facility] [address] [place] [address] 10/08/2019 10:14:25 10/14/2019 19:41:27 Pain of right shoulder joint 4089658229 1235625 M25.902 [id number] BETO VALENTE MD [facility] [address] [place] [address] 01/27/2020 11:40:47 01/27/2020 14:05:41 Osteoarthritis of knee 169832253 M17.11 [id number] BETO VALENTE MD [facility] [address] [place] [address] 07/13/2020 09:09:21 07/13/2020 11:40:02 Pain in right knee 6658302733 89681 M25.663 [id number] BETO VALENTE MD [facility] [address] [place] [address] 08/28/2020 11:04:16 08/28/2020 11:54:22 Tendinitis of left patellar tendon 7456407668 69976 M76.52 Pain in left knee 230136 9288 56962 M25.562 possible mm tear [id number] MYRON THORNTON MD [facility] [address] [place] [address] 6 10/13/2020 12:49:31 10/13/2020 13:48:58 Postoperative care 483075786 Z48.89 Previously status post right trigger thumb release (03/20/17) Pain in right thumb 1076 044157 943558 M79.644 Outside x-rays of the right thumb reviewed with no evidence of underlying fracture/d islocation [id number] MYRON THORNTON MD [facility] [address] [place] [address] 11/12/2020 10:44:15 11/12/2020 13:27:11 Pain in right thumb 4360453692 896285 M79.644 Outside x-rays of the right thumb reviewed with no evidence of underlying fracture/d islocation Postoperative care 71126 9007 Z48.89 Previously status post right trigger thumb release (03/20/17) [id number] MYRON THORNTON MD [facility] [address] [place] [address] 12/22/2020 14:33:53 12/23/2020 13:36:28 Pain in right thumb 6063304555 847278 M79.644 Outside x-rays of the right thumb reviewed with no evidence of underlying fracture/d islocation Postoperative care 59038 9007 Z48.89 Previously status post right trigger thumb release (03/20/17) [id number] BETO VALENTE MD [facility] [address] [place] [address] 05/18/2021 14:23:54 05/18/2021 15:57:45 Infection of foot 385178523 L08.9 Pain in left knee 591672 1592 92951 M25.562 possible mm tear [id number] BETO VALENTE MD [facility] [address] [place] [address] 6 05/24/2021 14:39:33 05/24/2021 17:02:15 Pain in left knee 1445716622 83528 M25.562 possible mm tear [id number] BETO VALENTE MD SURGERY SCHEDULE [address] [place] [address] 08/27/2021 06:07:52 08/27/2021 06:09:09 [id number] TY VARGAS PA-C [facility] [address] [address] 09/02/2021 08:48:30 09/02/2021 09:27:09 Postoperative care 108379622 Z48.89 [id number] TY VARGAS PA-C [facility] [address] [place] [address] 09/28/2021 09:02:50 09/28/2021 10:04:41 Postoperative care 512822320 Z48.89 Patient progressin g well postoperat ively. [...] she continues to have this aching pain. [id number] TY VARGAS PA-C [facility] [address] [place] [address] 10/26/2021 08:42:32 10/26/2021 09:16:09 Postoperative care 648631012 Z48.89 Patient progressin g well postoperat ively. Some residual aching in the medial aspect of the knee. Strength and range of motion appropriat e today.Plan :Continue PT with HEP. Continue to ice and elevate frequently . Over-the-c ounter anti-infla mmatories as needed. Hold on injection today. [id number] TY VARGAS PA-C [facility] [address] [place] [address] 11/23/2021 12:57:16 11/23/2021 13:33:06 Postoperative care 642632145 Z48.89 Patient progressin g well postoperat ively. Some residual aching in the medial aspect of the knee. Strength and range of motion appropriat e today.Plan :Continue HEP. Ice and elevate as needed. 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 9369313 M65.331 Right long trigger finger (CSI: 02/25/2022) Previously status post right trigger thumb release (03/20/17) [id number] MYRON THORNTON MD [facility] [address] [place] [address] 03/24/2022 10:44:49 03/24/2022 12:40:36 Acquired trigger finger 9595201 M65.331 Right long trigger finger (CSI: 02/25/2022) Previously status post right trigger thumb release (03/20/17) Postoperative care 81590 9007 Z48.89 Previously status post right trigger thumb release (03/20/17) [id number] MYRON THORNTON MD SURGERY SCHEDULE [address] [place] [place] [address] 04/20/2022 06:03:00 04/20/2022 06:04:21 [id number] LAURIE GONZALEZ PA-C [facility] [address] [place] [address] 05/05/2022 08:06:56 05/05/2022 08:31:04 Postoperative care 985643434 Z48.89 s/p Right middle trigger finger release (DOS: 04/20/22) Previously status post right trigger thumb release (03/20/17) [id number] MYRON THORNTON MD [facility] [address] [place] [address] 06/02/2022 09:09:46 06/02/2022 10:10:14 Postoperative care 692965438 Z48.89 6 weeks s/p Right middle trigger finger release (DOS: 04/20/22) Previously status post right trigger thumb release (03/20/17) [id number] MYRON THORNTON MD [facility] [address] [place] [address] 07/14/2022 08:16:23 07/14/2022 08:40:50 Postoperative care 394207691 Z48.89 12 weeks s/p Right middle trigger finger release (DOS: 04/20/22) Previously status post right trigger thumb release (03/20/17) [id number] MYRON THORNTON MD [facility] [address] [place] [address] 08/16/2022 08:33:51 08/16/2022 09:39:47 Postoperative care 270713228 Z48.89 4 months s/p right middle trigger finger release (DOS: 04/20/22) Previously status post right trigger thumb release (03/20/17) Flexor ten osynovitis of finger 271182022 M65.849 Right long finger flexor tendinitis (CSI: 08/16/2022) [id number] MYRON THORNTON MD [facility] [address] [place] [address] 09/22/2022 15:26:31 09/22/2022 16:42:00 Postoperative care 021312204 Z48.89 5 months s/p right middle trigger finger release (DOS: 04/20/22) Previously status post right trigger thumb release (03/20/17) Flexor ten osynovitis of finger 085054458 M65.849 Right long finger flexor tendinitis (CSI: 08/16/2022) [id number] TY VARGAS PA-C [facility] [address] [place] [address] 12/27/2022 14:12:24 12/27/2022 15:23:59 Edema of lower extremity 072958623 R60.0 Patient's symptoms today consistent likely with [...] persistent swelling of the right lower leg. [id number] BETO VALENTE MD [facility] [address] [address] 05/22/2023 15:53:59 05/22/2023 17:28:21 Bilateral osteoarthritis of knees 7852757833 06424 M17.0 [id number] EMMANUELLE Andrew MD [facility] [address] [address] 11/21/2023 07:50:13 11/21/2023 08:43:17 Pain of left knee joint 9433002476 09588 M25.562 Osteoarthr itis of left knee joint 2829669720 73667 M17.12 Hide he does have advanced degenerati [...] Type 2 zulma betes mellitus without complication [id number] E11.9 A1c 6.6 by patient report. Currently maintained on metformin, Ozempic, and Jardiance. We will recheck her A1c and fructosami ne prior to surgical scheduling . Coronary arteriosclerosis 78949250 I25.10 Recent history of PCI x 4 [...] scheduling . History of percutaneous coronary intervention 224281386 Z98.890 [id number] EMMANUELLE Andrew MD [facility] [address] [address] 02/20/2024 07:55:37 02/20/2024 09:45:24 Pain of left knee joint 9604065984 42064 M25.562 Osteoarthr itis of left knee joint [id number] 43842 M17.12 ASSESSMENT : DJD LEFT knee PLAN:The [...] potential cost sharing responsibi lities; only one [facility] er can furnish and bill for PCM services during a calendar month, and the patient can stop these services at any time. The patient understand s and has verbally consented to accept PCM services and has been provided a copy of a written explanatio n of this service today. Surgery date: 04-17-24Sur sudhakar location: [facility] equipment: [employer] [facility], press-fitP re-op clearance: PASSOther medical clearance: Cardiology Elizabeth prophylaxi s: Resume ASA/Plavix , TEDAdmissi on status: OUTPATIENT Discharge plan: overnight admissionP T: [facility] Allergies: otherSkin testing: No Type 2 zulma betes mellitus without complication [id number] E11.9 A1c 6.6 by patient report. Currently maintained on metformin, Ozempic, and Jardiance. We will recheck her A1c and fructosami ne prior to surgical scheduling . Coronary arteriosclerosis [id number] I25.10 Recent history of PCI x 4 [...] for cardiac events following elective TKA, including NV, arrhythmia s, and sudden cardiac . History of percutaneous coronary intervention [id number] Z98.890 [id number] EMMANUELLE Andrew MD [facility] [address] [place] [address] 04/11/2024 13:40:11 04/12/2024 10:02:00 [id number] EMMANUELLE Andrew MD SURGERY SCHEDULE [address] [place] [address] 04/17/2024 14:53:45 04/24/2024 14:00:07 [id number] ANUJ KIRAN PA-C [facility] [address] [address] 05/08/2024 10:28:14 05/08/2024 11:14:52 History of total knee arthroplasty [id number] 105 Z96.652 Patient is 3 weeks status post left TKA and doing very well at this time. No complaints or concerns today. She has transition to outpatient physical therapy with [facility] in [place] . Highly encouraged to continue to focus [...] post op follow up with radiograph s. [id number] ANUJ KIRAN PA-C [facility] [address] [place] [address] 05/29/2024 09:12:59 05/29/2024 10:24:40 History of total knee arthroplasty [id number] 105 Z96.652 Patient now 6 weeks status post left TKA. She continues to do very well with no complaints or concerns. Range of motion goals have been met. Okay to submerge incision. Resume normal activities as tolerated. Patient works at [employer] and has plans to return to work in [facility] 4 weeks which I do think [...] status. Long-leg radiograph s will be obtained. [id number] ANUJ KIRAN PA-C [facility] [address] [place] [id number] 06/26/2024 08:29:00 06/26/2024 09:18:34 History of total knee arthroplasty [id number] Z96.652 Patient now 9 weeks status post left TKA. Over the weekend she had increased her activity with some home chores had a slight increase in some discomfort but otherwise still doing well at this time. No restrictio ns, she may return to work in 3 weeks at this time. She works at [employer]. She is planning tentativel y to schedule [...] 1 year or sooner if symptoms warrant. [id number] ANUJ KIRAN PA-C [facility] [address] [place] [id number] 07/22/2024 07:53:25 07/22/2024 08:21:23 History of total knee arthroplasty [id number] Z96.652 Zehra he is now 13 [...] ID Gregorio Member ID Guarantor Name 02/25/2022 [facility] [employer] Zehra S Sanor 02/21/2022 [facility] [employer] Zehra S Sanor 07/19/2024 1 [id number] [facility] [id number] Zehra S Sanor [id number] Zehra S Sanor 03/15/2019 [facility] [employer] Zehra S Sanor 05/22/2023 [facility] [employer] Zehra S Sanor 07/05/2024 1 [facility] (MOVED TO HOLD) Zehra S Sanor Zehra [...] of pain medicine. ANUJ KIRAN PA-C [address] [place], [phone], [facility] 05/08/2024 11:15:32 05/29/2024 text/html 05/27/24Patient [...] of pain medicine. ANUJ KIRAN PA-C [address] [place], [address], [facility] 05/29/2024 10:25:59 06/26/2024 text/html 06/26/24Patient [...] not request a refill of pain medicine. 6/26/24Patient is 3 weeks s/p L TKA. Surgery date 04/17/24Pain is improvingCurrently taking no doses per day of narcotic.Ambulating with no assistive devicePT: outpatient Denies fevers, chills, or wound drainage.They do not request a refill of pain medicine. ANUJ KIRAN PA-C [address] [place], [address], [facility] 06/26/2024 09:19:24 07/22/2024 text/html 07/22/24Patient [...] refill of pain medicine. ANUJ KIRAN PA-C [address] [place], [address], [facility] 07/22/2024 09:51:17 OBGyn Episode No OBEpisode recorded.
--- OUTSIDE RECORDS SUMMARY | 2025-06-01 10:58 | XMS_ITS | Data Portability ---
Author Organization [place] - [facility], Main Office Address [address] [facility] [address] [place] [address] Care Team Providers Care Compliance Program Manager Name Role Phone JENNIFER MCCORD Primary Care Provider [phone] Assessment No assessment recorded. Plan of Treatment [...] session uneventfully. Tomorrow she returns to her typesetter apprentice for follow up. NATHAN DONIS 28May - not here due to conflicting medical appointment. NATHAN DONIS 29May - Cleared for HBOT this date and completed full session without problem. NATHAN DONIS 30May - Found safe for HBOT this date and completed full session without problem. She has also been back to see her Lead Driver, Dr Catherine Weathers, who Ms Shepherd states was pleased with progress. NATHAN DONIS 02Jun - Patient cleared for HBOT today. VS stable. FSBG within range. Patient completed full session with no problem. Lg Agudelo APRN 03Jun - We received last week's note from her typesetter apprentice and Dr Weathers expressed satisfaction with progress. Case reviewed today and note she has 20 more Sessions authorized. To get more sessions authorized will require unresolved remaining issues which will need to be carefully assessed. ANTHAN DONIS 04Jun - Cleared for HBOT this [...] full session with no problem. Lg Agudelo TIPPLE MECHANIC 10Jun - Patient cleared for HBOT [...] full session with no problem. Lg Agudelo TIPPLE MECHANIC 19Jun - Patient deemed safe for HBOT today. VS stable. FSBG within range. Patient completed full session with no problem. Lg Agudelo APRN 20Jun - Arrived today without knee scooter; her typesetter apprentice has advised can do without. Cleared for HBOT this date and completed full session without problem. NATHAN DONIS 23Jun - Patient deemed safe for HBOT today. VS stable. FSBG within range. Patient completed full session with no problem. Lg Agudelo APRN 24Jun - Patient deemed safe for HBOT today. VS stable. FSBG within range. Patient completed full session with no problem. Julio Cesar.Francisco Magnus TIPPLE MECHANIC 25Jun - Patient cleared for HBOT today. VS stable. FSBG within range. Patient completed full session with no problem. Julio Cesar.Francisco Magnus TIPPLE MECHANIC 26Jun - Patient cleared for HBOT today. VS stable. FSBG within range. Patient completed full session with no problem. Julio Cesar.Francisco Magnus TIPPLE MECHANIC 27Jun - Found safe for HBOT this [...] completed full session free of problem. NATHAN DNOIS 08Jul - Deemed safe for HBOT this date and completed full session with no problem. NATHAN DONIS 09Jul - Counting down last few sessions. Was in good order for HBOT this day and completed full session uneventfully. We got a note form her typesetter apprentice, Dr Gay Weathers, who felt she was now suitable to stop treatment with session 40. Jennifer DONIS [email or web address] Not available 05/21/2025 20:00:04 05/22/2025 [id number] BACKGROUND 59 y/o female diabetic [...] 37 of 40 planed Next planned HBOT: 23May2025Ma - Found safe for HBOT this date [...] session uneventfully. Tomorrow she returns to her typesetter apprentice for follow up. NATHAN DONIS 28May - not here due to conflicting medical appointment. NATHAN DONIS 29May - Cleared for HBOT this date and completed full session without problem. NATHAN DONIS 30May - Found safe for HBOT this date and completed full session without problem. She has also been back to see her Lead Driver, Dr Catherine Weathers, who Ms Shepherd states was pleased with progress. NATHAN DONIS 02Jun - Patient cleared for HBOT today. VS stable. FSBG within range. Patient completed full session with no problem. Lg Agudelo APRN 03Jun - We received last week's note from her typesetter apprentice and Dr Weathers expressed satisfaction with progress. [...] session with no problem. Julio Cesar.Francisco Agudelo TIPPLE MECHANIC 10Jun - Patient cleared for HBOT today. VS stable. FSBG within range. Patient completed full session with no problem. Lg Agudelo TIPPLE MECHANIC 11Jun - Patient deemed safe for HBOT today. VS stable. FSBS pre-treatment and post-treatment within range. Patient completed full session with no problem. Lg Agudelo TIPPLE MECHANIC 12Jun - Patient deemed safe for HBOT today. VS stable. FSBS pre-treatment and post-treatment within range. Patient completed full session with no problem. Julio Cesar.Francisco Agudelo TIPPLE MECHANIC 13Jun - Found safe for HBOT this date and completed full session free of problem. NATHAN DONIS 16Jun - Patient deemed safe for HBOT today. VS stable. FSBG within range. Patient completed full session with no problem. Lg Agudelo TIPPLE MECHANIC 17Jun - Patient deemed safe for HBOT today. VS stable. FSBG within range. Patient completed full session with no problem. Julio Cesar.Francisco Agudelo TIPPLE MECHANIC 18un - Patient deemed safe for HBOT today. VS stable. FSBG within range. Patient completed full session with no problem. Julio Cesar.Angi. Magnus TIPPLE MECHANIC 19Jun - Patient deemed safe for HBOT today. VS stable. FSBG within range. Patient completed full session with no problem. Julio Cesar.Francisco [address] [place] TIPPLE MECHANIC 20Jun - Arrived today without knee scooter; her typesetter apprentice has advised can do without. Cleared for HBOT this date and completed full session without problem. NATHAN DONIS 23Jun - Patient deemed safe for HBOT today. VS stable. FSBG within range. Patient completed full session with no problem. Julio Cesar.AngiMaria Dolores Agudelo TIPPLE MECHANIC 24Jun - Patient deemed safe for HBOT today. VS stable. FSBG within range. Patient completed full session with no problem. Julio Cesar.AngiMaria Dolores Agudelo TIPPLE MECHANIC 25Jun - Patient cleared for HBOT today. VS stable. FSBG within range. Patient completed full session with no problem. Julio Cesar.AngiMaria Dolores Agudelo TIPPLE MECHANIC 26Jun - Patient cleared for HBOT today. VS stable. FSBG within range. Patient completed full session with no problem. Julio Cesar.AngiMaria Dolores Agudelo TIPPLE MECHANIC 27Jun - Found safe for HBOT this [...] uneventfully. We got a note form her typesetter apprentice, Dr Gay Weathers, who felt she was now suitable to stop treatment with session 40. NATHAN DONIS 10Jul - Cleared for HBOT this date and completed full session with no problem. NATHAN DONIS [email or web address] Not available 05/22/2025 11:05:14 05/23/2025 [id number] BACKGROUND 59 y/o female diabetic [...] session uneventfully. Tomorrow she returns to her typesetter apprentice for follow up. NATHAN DONIS 28May - not here due to conflicting medical appointment. NATHAN DONIS 29May - Cleared for HBOT this date and completed full session without problem. NATHAN DONIS 30May - Found safe for HBOT this date and completed full session without problem. She has also been back to see her Lead Driver, Dr Catherine Weathers, who Ms Shepherd states was pleased with progress. NATHAN DONIS 02Jun - Patient cleared for HBOT today. VS stable. FSBG within range. Patient completed full session with no problem. Lg Agudelo TIPPLE MECHANIC 03Jun - We received last week's note from her typesetter apprentice and Dr Weathers expressed satisfaction with progress. [...] full session with no problem. Lg Agudelo TIPPLE MECHANIC 10Jun - Patient cleared for HBOT today. VS stable. FSBG within range. Patient completed full session with no problem. Lg Agudelo TIPPLE MECHANIC 11Jun - Patient deemed safe for HBOT today. VS stable. FSBS pre-treatment and post-treatment within range. Patient completed full session with no problem. Lg Agudelo TIPPLE MECHANIC 12Jun - Patient deemed safe for HBOT today. VS stable. FSBS pre-treatment and post-treatment within range. Patient completed full session with no problem. Julio Cesar.Francisco Agudelo APRN 13Jun - Found safe for [...] session with no problem. Julio Cesar.Francisco Agudelo APRN 18un - Patient deemed safe for HBOT today. VS stable. FSBG within range. Patient completed full session with no problem. Julio Cesar.Francisco Agudelo APRN 19Jun - Patient deemed safe for HBOT today. VS stable. FSBG within range. Patient completed full session with no problem. Lg Agudelo APRN 20Jun - Arrived today without knee scooter; her typesetter apprentice has advised can do without. Cleared for [...] session with no problem. Lg Agudelo APRN 25Jun - Patient cleared for HBOT today. VS stable. FSBG within range. Patient completed full session with no problem. Lg Agudelo APRN 26Jun - Patient cleared for HBOT today. VS stable. FSBG within range. Patient completed full session with no problem. Lg Agudelo APRN 27Jun - Found safe for HBOT this [...] uneventfully. We got a note form her typesetter apprentice, Dr Gay Weathers, who felt she was now suitable to stop treatment with session 40. NATHAN DONIS 10Jul - Cleared for HBOT this date and completed full session with no problem. NATHAN DONIS 11Jul - Found safe for HBOT this date and completed full session uneventfully. [facility] [email or web address] Not available 05/26/2025 03:14:39 05/26/2025 [id number] BACKGROUND 59 y/o female diabetic [...] session uneventfully. Tomorrow she returns to her typesetter apprentice for follow up. NATHAN DONIS 28May - not here due to conflicting medical appointment. NATHAN DONIS 29May - Cleared for HBOT this date and completed full session without problem. NATHAN DONIS 30May - Found safe for HBOT this date and completed full session without problem. She has also been back to see her Lead Driver, Dr Catherine Weathers, who Ms Shepherd states was pleased with progress. NATHAN DONIS 02Jun - Patient cleared for HBOT today. VS stable. FSBG within range. Patient completed full session with no problem. Lg Agudelo TIPPLE MECHANIC 03Jun - We received last week's note from her typesetter apprentice and Dr Weathers expressed satisfaction with progress. Case reviewed today and note she has 20 more Sessions authorized. To get more sessions authorized will require unresolved remaining issues which will need to be carefully assessed. NATHAN DONIS 04Jun - Cleared for HBOT this date and completed full session without problem. NTAHAN DONIS 05Jun - Deemed safe for HBOT this date and completed full session free of problem. NATHAN DONIS 06Jun - Deemed safe for HBOT this date and completed full session free of problem. NATHAN DONIS 09Jun - Patient cleared for HBOT today. VS stable. FSBG within range. Patient completed full session with no problem. Lg Agudelo TIPPLE MECHANIC 10Jun - Patient cleared for HBOT today. VS stable. FSBG within range. Patient completed full session with no problem. Lg Agudelo TIPPLE MECHANIC 11Jun - Patient deemed safe for HBOT [...] - Arrived today without knee scooter; her typesetter apprentice has advised can do without. Cleared for [...] session with no problem. Lg Agudelo APRN 25Jun - Patient cleared for HBOT today. VS stable. FSBG within range. Patient completed full session with no problem. MohsenMaria Dolores Agudelo TIPPLE MECHANIC 26Jun - Patient cleared for HBOT today. VS stable. FSBG within range. Patient completed full session with no problem. MohsenMaria Dolores Agudelo TIPPLE MECHANIC 27Jun - Found safe for HBOT this [...] uneventfully. We got a note form her typesetter apprentice, Dr Gay Weathers, who felt she was now suitable to stop treatment with session 40. NATHAN DONIS 10Jul - Cleared for HBOT this date and completed full session with no problem. NATHAN DONIS 11Jul - Found safe for HBOT this date and completed full session uneventfully. Jennifer DONIS 14Jul - Patient deemed safe for HBOT today. VS stable. FSBG within range. Patient completed full session with no problem. Julio CesarSita Agudelo TIPPLE MECHANIC Not available 05/26/2025 10:50:58 05/27/2025 [id number] BACKGROUND 59 y/o female diabetic [...] MD ____ ____ Session notes Today's date: 27May2025 Session # 40 of 60 planed Next [...] session uneventfully. Tomorrow she returns to her typesetter apprentice for follow up. NATHAN DONIS 28May - not here due to conflicting medical appointment. NATHAN DONIS 29May - Cleared for HBOT this date and completed full session without problem. NATHAN DONIS 30May - Found safe for HBOT this date and completed full session without problem. She has also been back to see her Lead Driver, Dr Catherine Weathers, who Ms Shepherd states was pleased with progress. NATHAN DONIS 02Jun - Patient cleared for HBOT today. VS stable. FSBG within range. Patient completed full session with no problem. Lg Agudelo APRN 03Jun - We received last week's note from her typesetter apprentice and Dr Weathers expressed satisfaction with progress. [...] full session with no problem. Lg Agudelo TIPPLE MECHANIC 10Jun - Patient cleared for HBOT today. VS stable. FSBG within range. Patient completed full session with no problem. Lg Agudelo TIPPLE MECHANIC 11Jun - Patient deemed safe for HBOT today. VS stable. FSBS pre-treatment and post-treatment within range. Patient completed full session with no problem. Lg Agudelo TIPPLE MECHANIC 12Jun - Patient deemed safe for HBOT today. VS stable. FSBS pre-treatment and post-treatment within range. Patient completed full session with no problem. Lg Agudelo TIPPLE MECHANIC 13Jun - Found safe for HBOT this date and completed full session free of problem. NATHAN DONIS 16Jun - Patient deemed safe for HBOT today. VS stable. FSBG within range. Patient completed full session with no problem. Lg Agudelo TIPPLE MECHANIC 17Jun - Patient deemed safe for HBOT today. VS stable. FSBG within range. Patient completed full session with no problem. M.A. Magnus TIPPLE MECHANIC 18un - Patient deemed safe for HBOT today. VS stable. FSBG within range. Patient completed full session with no problem. M.A. [place] TIPPLE MECHANIC 19Jun - Patient deemed safe for HBOT today. VS stable. FSBG within range. Patient completed full session with no problem. Julio Cesar.Francisco AndersonMagnus TIPPLE MECHANIC 20Jun - Arrived today without knee scooter; her typesetter apprentice has advised can do without. Cleared for HBOT this date and completed full session without problem. NATHAN DONIS 23Jun - Patient deemed safe for HBOT today. VS stable. FSBG within range. Patient completed full session with no problem. M.Angi. [place] TIPPLE MECHANIC 24Jun - Patient deemed safe for HBOT today. VS stable. FSBG within range. Patient completed full session with no problem. M.Angi. Magnus TIPPLE MECHANIC 25Jun - Patient cleared for HBOT today. VS stable. FSBG within range. Patient completed full session with no problem. M.Angi. [place] TIPPLE MECHANIC 26Jun - Patient cleared for HBOT today. VS stable. FSBG within range. Patient completed full session with no problem. Julio Cesar.Francisco AndersonMagnus TIPPLE MECHANIC 27Jun - Found safe for HBOT this [...] uneventfully. We got a note form her typesetter apprentice, Dr Gay Weathers, who felt she was [...] full session with no problem. Lg Agudelo TIPPLE MECHANIC 15ul - Patient deemed safe for HBOT today. VS stable. FSBG within range. Patient completed full session with no problem. Patient is done with treatments for now, as she is healed and completed 40 sessions. Lg Agudelo APRN Not available 05/27/2025 10:45:24 Reason for Referral None Reported. Procedures Surgical History Date Name Laterality Status Provider Name and Address Organization Details Recorded Time 05/27/20 25 [facility] Therapy Treatment Form completed [facility] - [facility] 05/27/2025 09:45:15 05/26/20 25 [facility] Therapy Treatment Form completed [facility] - [facility] 05/26/2025 09:41:49 05/23/20 25 [facility] Therapy Treatment Form completed [facility] - [facility] 05/23/2025 09:53:41 05/22/20 25 [facility] Therapy Treatment Form completed [facility] - [facility] 05/22/2025 09:49:19 05/21/20 25 [facility] Therapy Treatment Form completed [facility] - [facility] 05/21/2025 09:56:08 05/20/20 25 [facility] Therapy Treatment Form completed [facility] - [facility] 05/20/2025 09:41:29 05/19/20 25 [facility] Therapy Treatment Form completed [facility] - [facility] 05/19/2025 09:45:34 05/16/20 25 [facility] Therapy Treatment Form completed [facility] - [facility] 05/16/2025 09:41:57 05/15/20 25 [facility] Therapy Treatment Form completed [facility] 05/15/2025 09:46:49 05/14/20 25 [facility] Therapy Treatment Form completed [facility] - [facility] 05/14/2025 14:06:43 05/13/20 25 [facility] Therapy Treatment Form completed [facility] - [facility] 05/13/2025 14:14:00 05/12/20 25 [facility] Therapy Treatment Form completed [facility] 05/12/2025 14:06:32 05/09/20 25 [facility] Therapy Treatment Form completed [facility] 05/09/2025 14:20:41 05/08/20 25 [facility] Therapy Treatment Form completed [facility] - [facility] 05/08/2025 14:16:34 05/07/20 25 [facility] Therapy Treatment Form completed [facility] 05/07/2025 14:34:11 05/06/20 25 [facility] Therapy Treatment Form completed [facility] 05/06/2025 14:33:30 05/05/20 25 [facility] Therapy Treatment Form completed [facility] 05/05/2025 14:39:41 05/02/20 25 [facility] Therapy Treatment Form completed [facility] 05/02/2025 14:38:10 05/01/20 25 [facility] Therapy Treatment Form completed [facility] 05/01/2025 14:30:47 04/30/20 25 [facility] Therapy Treatment Form completed [facility] 04/30/2025 14:50:00 04/29/20 25 [facility] 04/29/2025 15:42:38 04/28/20 25 [facility] Therapy Treatment Form completed [facility] 04/28/2025 13:47:28 04/25/20 25 [facility] Therapy Treatment Form completed [facility] 04/25/2025 14:24:24 04/24/20 25 [facility] Therapy Treatment Form completed Zuleyka Beyden [place] - [facility] 04/24/2025 14:37:59 04/23/20 25 [facility] Therapy Treatment Form completed [facility] 04/23/2025 13:52:55 04/22/20 25 [facility] Therapy Treatment Form completed [facility] 04/22/2025 14:27:44 04/21/20 25 [facility] Therapy Treatment Form completed [facility] 04/21/2025 14:09:03 04/18/20 25 [facility] Therapy Treatment Form completed [facility] 04/18/2025 14:22:52 04/17/20 25 [facility] Therapy Treatment Form completed [facility] - [facility] 04/17/2025 14:14:34 04/16/20 25 [facility] Therapy Treatment Form completed [facility] 04/16/2025 14:24:52 04/15/20 25 [facility] Therapy Treatment Form completed [facility] 04/15/2025 14:43:45 04/14/20 25 [facility] Therapy Treatment Form completed [facility] - [facility] 04/14/2025 14:39:53 04/11/20 25 [facility] Therapy Treatment Form completed [facility] 04/11/2025 14:38:24 04/10/20 25 [facility] Therapy Treatment Form completed [facility] 04/10/2025 14:35:50 04/08/20 25 [facility] Therapy Treatment Form completed [facility] 04/08/2025 14:29:12 04/07/20 25 [facility] Therapy Treatment Form completed Nahomi TitusJoye [place] - [facility] 04/07/2025 11:54:59 04/06/20 25 [facility] Therapy Treatment Form completed Nahomi LaJoye [place] - [facility] 04/06/2025 12:08:17 04/05/20 25 [facility] Therapy Treatment Form completed Zuleyka Andrew [place] - [facility] 04/05/2025 11:59:40 04/04/20 [...] grafts x 4 completed Shona Bender [facility] 04/03/2025 13:54:46 12/14/19 23 Gallbladder Surgery completed Shona Bender [facility] 04/03/2025 13:54:58 11/13/19 23 biopsy of skin completed Shona Bender [facility] 04/03/2025 14:10:49 11/13/19 21 release of trigger finger completed Shona Bender [facility] 04/03/2025 13:55:11 11/13/19 21 [facility] 04/03/2025 13:55:27 11/13/19 19 procedure on shoulder completed Shona Bender [facility] 04/03/2025 13:55:44 11/13/19 17 thumb surgery completed Shona Bender [facility] 04/03/2025 13:56:03 11/13/18 94 section completed Shona Bender [facility] 04/03/2025 13:57:12 11/13/18 92 section completed [place] Bender [facility] 04/03/2025 13:57:07 11/13/18 84 appendectomy completed Shona Bender [facility] 04/03/2025 13:57:28 11/13/18 77 tonsillectomy and aden[facility]idectomy [facility] 04/03/2025 13:57:37 Imaging Results [...] [place] - [facility] 5 08:20:21 Date Recorded Heart rate Respiratory rate Body [...] 99 % 106/77 mm[Hg] 110/73 mm[Hg] Ngozi sharp [place] - [facility] 5 09:49:38 Date Recorded Heart rate Respiratory rate Body [...] % 98 % 111/67 mm[Hg] 109/67 mm[Hg] [facility] [place] - [facility] 5 09:53:57 [...] % 100 % 110/77 mm[Hg] 116/75 mm[Hg] [facility] [place] - [facility] 5 09:42:05 Date Recorded Heart rate Respiratory rate Body temperature Heart rate Respiratory rate Body temperature Oxygen saturation Oxygen saturation in Arterial blood by Pulse oximetry Systolic And Diastolic Systolic And Diastolic Provider Name and Address Organization Details Last Updated DateTime 5 84 /min 16 /min 96.6 [degF] 81 /min 16 /min 98.2 [degF] 100 % 100 % 131/79 mm[Hg] 117/75 mm[Hg] [facility] [place] - [facility] 5 09:45:34 Social History None recorded. Functional Status [...] MD Main Office [address] [place] [address] 04/03/2025 13:39:59 04/03/2025 16:50:46 [id number] Mariano Farley MD Main Office [address] [place] [address] 04/03/2025 15:32:51 04/03/2025 18:10:03 [id number] Mariano Farley MD Main Office [address] [place] [address] 04/04/2025 15:39:00 04/08/2025 08:19:46 390Chad Farley MD Main Office [address] [place] [address] 04/05/2025 10:12:41 04/08/2025 08:22:20 [id number] Mariano Farley MD Main Office [address] [place] [address] 04/06/2025 10:28:04 04/08/2025 08:26:15 [id number] Mariano Farley MD Main Office [address] [place] [address] 04/07/2025 09:45:56 04/08/2025 08:30:09 [id number] Mariano Farley MD Main Office [address] [place] [address] 04/08/2025 12:11:52 04/08/2025 18:52:34 [id number] Mariano Farley MD Main Office [address] [address] [place] [address] 04/10/2025 12:15:32 04/11/2025 13:41:15 3974 Mariano Farley MD Main Office [address] [place] [address] 04/11/2025 12:17:41 04/14/2025 08:14:43 3993 Mariano Farley MD Main Office [address] [place] [address] 04/14/2025 12:22:08 04/14/2025 17:08:51 4010 Mariano Farley MD Main Office [address] [place] [address] 04/15/2025 12:29:05 04/15/2025 18:07:29 4030 Mariano Farley MD Main Office [address] [place] [address] 04/16/2025 12:09:34 04/16/2025 16:28:25 4044 Mariano Farley MD Main Office [address] [place] [address] 04/17/2025 12:00:06 04/17/2025 15:57:18 4073 Mariano Farley MD Main Office [address] [place] [address] 04/18/2025 12:10:37 04/18/2025 17:06:48 4091 Mariano Farley MD Main Office [address] [place] [address] 04/21/2025 11:56:08 04/21/2025 16:04:26 4113 Mariano Farlye MD Main Office [address] [place] [address] 04/22/2025 11:58:46 04/22/2025 14:50:54 4131 Mariano Farley MD Main Office [address] [place] [address] 04/23/2025 11:38:35 04/23/2025 14:47:00 4151 Mariano Farley MD Main Office [address] [place] [address] 04/24/2025 12:20:48 04/24/2025 15:34:39 4165 Mariano Farley MD Main Office [address] [place] [address] 04/25/2025 12:14:52 04/30/2025 15:40:51 4183 Mariano Farley MD Main Office [address] [place] [address] 04/28/2025 11:33:32 05/01/2025 08:04:21 Rosa Elena Farley MD Main Office [address] [place] [address] 04/29/2025 13:00:52 05/01/2025 08:57:14 Vladimir8 Mariano Farley MD Main Office [address] [place] [address] 04/30/2025 12:43:07 05/01/2025 09:26:34 4235 Mariano Farley MD Main Office [address] [place] [address] 05/01/2025 12:24:55 05/01/2025 15:28:20 4256 Mariano Farley MD Main Office [address] [place] [address] 05/02/2025 12:29:37 05/05/2025 01:36:37 4269 Mariano Farley MD Main Office [address] [place] [address] 05/05/2025 12:35:08 05/05/2025 15:28:24 4285 Mariano Farley MD Main Office [address] [place] [address] 05/06/2025 12:22:35 05/06/2025 17:17:12 4302 Mariano Farley MD Main Office [address] [place] [address] 05/07/2025 12:27:25 05/07/2025 14:53:23 4316 Mariano Farley MD Main Office [address] [place] [address] 05/08/2025 12:04:54 05/08/2025 15:52:07 4332 Mariano Farley MD Main Office [address] [place] [address] 05/09/2025 12:17:15 05/09/2025 17:22:51 4343 Mariano Farley MD Main Office [address] [place] [address] 05/12/2025 12:05:21 05/12/2025 19:44:55 4356 Mariano Farley MD Main Office [address] [place] [address] 05/13/2025 11:43:11 05/13/2025 17:35:49 4369 Mariano Farley MD Main Office [address] [place] , [place] [address] 05/14/2025 12:18:55 05/14/2025 19:59:05 4379 Mariano Farley MD Main Office [address] [place] [address] 05/15/2025 07:47:37 05/15/2025 09:52:44 4393 Mariano Farley MD Main Office [address] [place] , [place] [address] 05/16/2025 07:42:13 05/19/2025 06:53:35 4402 Mariano Farley MD Main Office [address] [place] , [place] [address] 05/19/2025 07:43:50 05/20/2025 07:03:34 4415 Mariano Farley MD Main Office [address] [place] [address] 05/20/2025 07:49:53 05/21/2025 10:50:47 4430 Mariano Farley MD Main Office [address] [place] , [place] [address] 05/21/2025 08:03:58 05/21/2025 20:00:08 4441 Mariano Farley MD Main Office [address] [place] , [place] [address] 05/22/2025 07:49:59 05/22/2025 11:05:19 4454 Mariano Farley MD Main Office [address] [place] , [place] [address] 05/23/2025 07:57:04 05/26/2025 03:14:43 4468 Mariano Farley MD Main Office [address] [place] , [place] [address] 05/26/2025 07:46:04 05/26/2025 10:49:52 4486 Mariano Farley MD Main Office [address] [place] , [place] [address] 05/27/2025 07:59:21 05/27/2025 10:46:11 Health Concerns Section Related Observation LastModified by Organization Detai ls LastModified Time None Recorded Concern Status LastModified by Organization Details LastModified Time None Recorded Advance Directives Directive None Recorded Payers Insurance Date Sequence Insurance Name Policy Number Policy Gregorio Covered Member ID Gregorio Member ID Guarantor Name 04/03/2025 1 [employer] Zehra Shepherd [id number] Zehra Shepherd OBGyn Episode No OBEpisode recorded.
--- OUTSIDE RECORDS SUMMARY | 2025-06-01 10:58 | XMS_ITS | Continuity of Care Document ---
Author Organization [place] [facility], Main Office Address [address] [place] [address] Care Team Providers Care Talent Development Manager Name Role Phone JENNIFER MCCORD Primary [...] Modified By Organization Details Last Modified Time 05/01/2025 4235 BACKGROUND 59 y/o female diabetic with moderately [...] MD ____ ____ Session notes Today's date: 01May2025 Session # 22 of 40 planed Next planned HBOT: 02May2025 22May - Found safe for HBOT this [...] session uneventfully. Tomorrow she returns to her tree topper for follow up. NATHAN DONIS 28May - not here due to conflicting medical appointment. NATHAN DONIS 29May - Cleared for HBOT this date and completed full session without problem. NATHAN DONIS 30May - Found safe for HBOT this date and completed full session without problem. She has also been back to see her Head Batcher, Dr Catherine Weathers, who Ms Shepherd states was pleased with progress. NATHAN DONIS 02Jun - Patient cleared for HBOT today. VS stable. FSBG within range. Patient completed full session with no problem. Lg Agudelo APRN 03Jun - We received last week's note from her tree topper and Dr Weathers expressed satisfaction with progress. [...] problem. Lg Agudelo APRN Not available 05/01/2025 15:28:15 Reason for Referral None Reported. Procedures Surgical History Date Name Laterality Status Provider Name and Address Organization Details Recorded Time 05/27/20 25 [facility] Therapy Treatment Form completed Ngozi THAKKAR - [facility] 05/27/2025 09:45:15 05/26/20 25 [facility] Therapy Treatment Form completed [facility] - [facility] 05/26/2025 09:41:49 05/23/20 25 [facility] Therapy Treatment Form completed [facility] - [facility] 05/23/2025 09:53:41 05/22/20 25 [facility] Therapy Treatment Form completed [facility] - [facility] 05/22/2025 09:49:19 05/21/20 25 [facility] Therapy Treatment Form completed [facility] - [facility] 05/21/2025 09:56:08 05/20/20 25 [facility] Therapy Treatment Form completed [facility] - [facility] 05/20/2025 09:41:29 05/19/20 25 [facility] Therapy Treatment Form completed [facility] - [facility] 05/19/2025 09:45:34 05/16/20 25 [facility] Therapy Treatment Form completed [facility] - [facility] 05/16/2025 09:41:57 05/15/20 25 [facility] Therapy Treatment Form completed [facility] - [facility] 05/15/2025 09:46:49 05/14/20 25 [facility] Therapy Treatment Form completed [facility] - [facility] 05/14/2025 14:06:43 05/13/20 25 [facility] Therapy Treatment Form completed [facility] 05/13/2025 14:14:00 05/12/20 25 [facility] Therapy Treatment Form completed [facility] 05/12/2025 14:06:32 05/09/20 25 [facility] Therapy Treatment Form completed [facility] - [facility] 05/09/2025 14:20:41 05/08/20 25 [facility] Therapy Treatment Form completed [facility] - [facility] 05/08/2025 14:16:34 05/07/20 25 [facility] Therapy Treatment Form completed [facility] - [facility] 05/07/2025 14:34:11 05/06/20 25 [facility] Therapy Treatment Form completed [facility] - [facility] 05/06/2025 14:33:30 05/05/20 25 [facility] Therapy Treatment Form completed [facility] - [facility] 05/05/2025 14:39:41 05/02/20 25 [facility] Therapy Treatment Form completed [facility] - [facility] 05/02/2025 14:38:10 05/01/20 25 [facility] Therapy Treatment Form completed [facility] - [facility] 05/01/2025 14:30:47 04/30/20 25 [facility] Therapy Treatment Form completed [facility] - [facility] 04/30/2025 14:50:00 04/29/20 25 [facility] 04/29/2025 15:42:38 04/28/20 25 [facility] Therapy Treatment Form completed [facility] - [facility] 04/28/2025 13:47:28 04/25/20 25 [facility] Therapy Treatment Form completed [facility] - [facility] 04/25/2025 14:24:24 04/24/20 25 [facility] Therapy Treatment Form completed [facility] - [facility] 04/24/2025 14:37:59 04/23/20 25 [facility] Therapy Treatment Form completed [facility] - [facility] 04/23/2025 13:52:55 04/22/20 25 [facility] Therapy Treatment Form completed [facility] - [facility] 04/22/2025 14:27:44 04/21/20 25 [facility] Therapy Treatment Form completed [facility] - [facility] 04/21/2025 14:09:03 04/18/20 25 [facility] Therapy Treatment Form completed [facility] - [facility] 04/18/2025 14:22:52 04/17/20 25 [facility] Therapy Treatment Form completed [facility] - [facility] 04/17/2025 14:14:34 04/16/20 25 [facility] Therapy Treatment Form completed [facility] - [facility] 04/16/2025 14:24:52 04/15/20 25 [facility] Therapy Treatment Form completed [facility] - [facility] 04/15/2025 14:43:45 04/14/20 25 [facility] Therapy Treatment Form completed [facility] - [facility] 04/14/2025 14:39:53 04/11/20 25 [facility] Therapy Treatment Form completed [facility] - [facility] 04/11/2025 14:38:24 [...] 100 % 138/45 mm[Hg] 126/89 mm[Hg] Ngozi gonzalez [place] - [facility] 5 14:31:09 Social [...] MD Main Office [address] [place] [address] 04/03/2025 13:39:59 04/03/2025 16:50:46 3890 Mariano Farley MD Main Office [address] [place] [address] 04/03/2025 15:32:51 04/03/2025 18:10:03 3904 Mariano Farley MD Main Office [address] [place] [address] 04/04/2025 15:39:00 04/08/2025 08:19:46 390Chad Farley MD Main Office [address] [place] [address] 04/05/2025 10:12:41 04/08/2025 08:22:20 Aure Farley MD Main Office [address] [place] [address] 04/06/2025 10:28:04 04/08/2025 08:26:15 Lis Farley MD Main Office [address] [place] [address] 04/07/2025 09:45:56 04/08/2025 08:30:09 3923 Mariano Farley MD Main Office [address] [place] [address] 04/08/2025 12:11:52 04/08/2025 18:52:34 3955 Mariano Farley MD Main Office [address] [place] [address] 04/10/2025 12:15:32 04/11/2025 13:41:15 3974 Mariano Farley MD Main Office [address] [place] [address] 04/11/2025 12:17:41 04/14/2025 08:14:43 3993 Mariano Farley MD Main Office [address] [place] [address] 04/14/2025 12:22:08 04/14/2025 17:08:51 4010 Mariano Farley MD Main Office [address] [place] [address] 04/15/2025 12:29:05 04/15/2025 18:07:29 4030 Mariano Farley MD Main Office [address] [place] [address] 04/16/2025 12:09:34 04/16/2025 16:28:25 4044 Mariano Farley MD Main Office [address] [place] [address] 04/17/2025 12:00:06 04/17/2025 15:57:18 4073 Mariano Farley MD Main Office [address] [place] [address] 04/18/2025 12:10:37 04/18/2025 17:06:48 4091 Mariano Farley MD Main Office [address] [place] [address] 04/21/2025 11:56:08 04/21/2025 16:04:26 4113 Mariano Farley MD Main Office [address] [place] [address] 04/22/2025 11:58:46 04/22/2025 14:50:54 4131 Mariano Farley MD Main Office [address] [place] [address] 04/23/2025 11:38:35 04/23/2025 14:47:00 4151 Mariano Farley MD Main Office [address] [place] [address] 04/24/2025 12:20:48 04/24/2025 15:34:39 4165 Mariano Farley MD Main Office [address] [place] [address] 04/25/2025 12:14:52 04/30/2025 15:40:51 4183 Mariano Farley MD Main Office [address] [place] [address] 04/28/2025 11:33:32 05/01/2025 08:04:21 4197 Mariano Farley MD Main Office [address] [place] [address] 04/29/2025 13:00:52 05/01/2025 08:57:14 4218 Mariano Farley MD Main Office [address] [place] [address] 04/30/2025 12:43:07 05/01/2025 09:26:34 4235 Mariano Farley MD Main Office [address] [place] [address] 05/01/2025 12:24:55 05/01/2025 15:28:20 Health Concerns Section Related Observation LastModified by Organization Detai ls LastModified Time None Recorded Concern Status LastModified by Organization Details LastModified Time None Recorded Payers Encounter Date Sequence Insurance Name Policy Number Policy Gregorio Covered Member ID Gregorio Member ID Guarantor Name 05/01/2025 1 [employer] Zehra Sanor [id number] Zehra Sanor OBGyn Episode No OBEpisode recorded.
--- OUTSIDE RECORDS SUMMARY | 2025-06-01 10:59 | XMS_ITS | Continuity of Care Document ---
Author Organization [place] [facility], Main Office Address [address] [place] [address] Care Team Providers Care Nuclear Chemistry Technician Name Role Phone JENNIFER MCCORD Primary Care Provider [phone] Assessment No assessment recorded. Plan of Treatment [...] Modified By Organization Details Last Modified Time 04/16/2025 4030 BACKGROUND 59 y/o female diabetic with moderately [...] MD ____ ____ Session notes Today's date: 16Apr2025 Session # 11 of 40 planed Next planned HBOT: 17Apr2025 22May - Found safe for HBOT this [...] session uneventfully. Tomorrow she returns to her supervisor composing room for follow up. NATHAN DONIS 28May - not here due to conflicting medical appointment. NATHAN DONIS 29May - Cleared for HBOT this date and completed full session without problem. NATHAN DONIS 30May - Found safe for HBOT this date and completed full session without problem. She has also been back to see her Outboard Motorboat Operator, Dr Catherine Weathers, who Ms Shepherd states was pleased with progress. NATHAN DONIS 02Jun - Patient cleared for HBOT today. VS stable. FSBG within range. Patient completed full session with no problem. Lg Agudelo APRN 03Jun - We received last week's note from her supervisor composing room and Dr Weathers expressed satisfaction with progress. Case reviewed today and note she has 20 more Sessions authorized. To get more sessions authorized will require unresolved remaining issues which will need to be carefully assessed. Jennifer DONIS 04Jun - Cleared for HBOT this date and completed full session without problem. Jennifer DONIS [email or web address] Not available 04/16/2025 16:28:19 Reason for Referral None Reported. Procedures Surgical History Date Name Laterality Status Provider Name and Address Organization Details Recorded Time 05/27/20 25 [facility] Therapy Treatment Form completed [facility] - [facility] 05/27/2025 09:45:15 05/26/20 25 [facility] Therapy Treatment Form completed [facility] - [facility] 05/26/2025 09:41:49 05/23/20 25 [facility] Therapy Treatment Form completed [facility] - [facility] 05/23/2025 09:53:41 05/22/20 25 [facility] Therapy Treatment Form completed [facility] 05/22/2025 09:49:19 05/21/20 25 [facility] Therapy Treatment Form completed [facility] - [facility] 05/21/2025 09:56:08 05/20/20 25 [facility] Therapy Treatment Form completed [facility] - [facility] 05/20/2025 09:41:29 05/19/20 25 [facility] Therapy Treatment Form completed [facility] - [facility] 05/19/2025 09:45:34 05/16/20 25 [facility] Therapy Treatment Form completed [facility] - [facility] 05/16/2025 09:41:57 05/15/20 25 [facility] Therapy Treatment Form completed [facility] - [facility] 05/15/2025 09:46:49 05/14/20 25 [facility] Therapy Treatment Form completed [facility] - [facility] 05/14/2025 14:06:43 05/13/20 25 [facility] Therapy Treatment Form completed [facility] - [facility] 05/13/2025 14:14:00 05/12/20 25 [facility] Therapy Treatment Form completed [facility] - [facility] 05/12/2025 14:06:32 05/09/20 25 [facility] Therapy Treatment Form completed [facility] 05/09/2025 14:20:41 05/08/20 25 [facility] Therapy Treatment Form completed [facility] 05/08/2025 14:16:34 05/07/20 25 [facility] Therapy Treatment Form completed [facility] - [facility] 05/07/2025 14:34:11 05/06/20 25 [facility] Therapy Treatment Form completed [facility] 05/06/2025 14:33:30 05/05/20 25 [facility] Therapy Treatment Form completed [facility] - [facility] 05/05/2025 14:39:41 05/02/20 25 [facility] Therapy Treatment Form completed [facility] 05/02/2025 14:38:10 05/01/20 25 [facility] Therapy Treatment Form completed [facility] 05/01/2025 14:30:47 04/30/20 25 [facility] Therapy Treatment Form completed [facility] 04/30/2025 14:50:00 04/29/20 25 [facility] 04/29/2025 15:42:38 04/28/20 25 [facility] Therapy Treatment Form completed [facility] 04/28/2025 13:47:28 04/25/20 25 [facility] Therapy Treatment Form completed [facility] 04/25/2025 14:24:24 04/24/20 25 [facility] 04/24/2025 14:37:59 04/23/20 25 [facility] Therapy Treatment Form completed [facility] 04/23/2025 13:52:55 04/22/20 25 [facility] Therapy Treatment Form completed [facility] 04/22/2025 14:27:44 04/21/20 25 [facility] Therapy Treatment Form completed [facility] 04/21/2025 14:09:03 04/18/20 25 [facility] Therapy Treatment Form completed [facility] 04/18/2025 14:22:52 04/17/20 25 [facility] Therapy Treatment Form completed [facility] 04/17/2025 14:14:34 04/16/20 25 [facility] Therapy Treatment Form completed [facility] 04/16/2025 14:24:52 04/15/20 25 [facility] Therapy Treatment Form completed [facility] 04/15/2025 14:43:45 04/14/20 25 [facility] Therapy Treatment Form completed [facility] 04/14/2025 14:39:53 04/11/20 25 [facility] Therapy Treatment Form completed [facility] 04/11/2025 14:38:24 04/10/20 25 [facility] Therapy Treatment Form completed [facility] 04/10/2025 14:35:50 04/08/20 25 [facility] Therapy Treatment Form completed [facility] 04/08/2025 14:29:12 04/07/20 25 [facility] Therapy Treatment Form completed Nahomi Thurston [place] - [facility] 04/07/2025 11:54:59 04/06/20 25 [facility] 04/06/2025 12:08:17 04/05/20 25 [facility] Therapy Treatment Form completed Zuleyka Morales [place] - [facility] 04/05/2025 11:59:40 04/04/20 25 [facility] 04/04/2025 17:25:52 04/03/20 [...] 11/13/19 17 thumb surgery completed Shona THAKKAR [facility] 04/03/2025 13:56:03 11/13/18 94 section completed Shona THAKKAR [facility] 04/03/2025 13:57:12 [...] Address Organization Details Last Updated DateTime 5 95 /min 16 /min 97.3 [degF] 97 % 97 % 70 /min 16 /min 98.2 [degF] 98 % 98 % 105/53 mm[Hg] 97/57 mm[Hg] Ngozi gonzalez [place] - [facility] 5 14:25:07 Social History None recorded. Functional Status None recorded. Mental Status None recorded. Family History Nothing Reported. Medical History Condition Response Coronary Artery Disease N Blood Diseases N Hyperthyroidism N Depression N COPD N Anxiety Disorder N Stroke N Fibromyalgia N Kidney Disease N Skin Problems Y Asthma N Chronic Ear Infections N Lung Disease N Developmental or Behavioral Disorders N Endometriosis N Liver Disease Y Thyroid Problems N GI Problems N Anemia N Diabetes Y Congestive Heart Failure (CHF) N Heart Disease N Hypertension N Gout N Muscle, Joint, or Bone Problems N Arthritis Y Cancer Y Headaches N Heart Problems Y Ear or Hearing Problems N AIDS/HIV N Breast Cancer N Hypothyroidism N Bladder or Kidney Problems N Allergies/Hayfever Y Seizures/Epilepsy N Diverticulitis N Osteoporosis N Gynecological HistoryNo gynecological history recorded. Obstetrics History GPAL:G 0 P 0 0 0 0 Past Encounters Encounter ID Performer Location Encounter Start Date Encounter Closed Date Diagnosis/Indication Diagnosis SNOMED-CT Code Diagnosis ICD10 Code Diagnosis Note [id number] Mariano Farley MD Main Office [address] [place] [address] 04/03/2025 13:39:59 04/03/2025 16:50:46 [id number] Mariano Farley MD Main Office [address] [place] [address] 04/03/2025 15:32:51 04/03/2025 18:10:03 [id number] Mariano Farley MD Main Office [address] [place] [address] 04/04/2025 15:39:00 04/08/2025 08:19:46 [id number] Mariano Farley MD Main Office [address] [place] [address] 04/05/2025 10:12:41 04/08/2025 08:22:20 [id number] Mariano Farley MD Main Office [address] [place] , [place] [address] 04/06/2025 10:28:04 04/08/2025 08:26:15 [id number] Mariano Farley MD Main Office [address] [place] , [place] [address] 04/07/2025 09:45:56 04/08/2025 08:30:09 [id number] Mariano Farley MD Main Office [address] [place] [address] 04/08/2025 12:11:52 04/08/2025 18:52:34 [id number] Mariano Farley MD Main Office [address] [place] [address] 04/10/2025 12:15:32 04/11/2025 13:41:15 [id number] Mariano Farley MD Main Office [address] [place] [address] 04/11/2025 12:17:41 04/14/2025 08:14:43 [id number] Mariano Farley MD Main Office [address] [place] , [place] [address] 04/14/2025 12:22:08 04/14/2025 17:08:51 [id number] Mariano Farley MD Main Office [address] [place] , [place] [address] 04/15/2025 12:29:05 04/15/2025 18:07:29 [id number] Mariano Farley MD Main Office [address] [place] , [place] [address] 04/16/2025 12:09:34 04/16/2025 16:28:25 Health Concerns Section Related Observation LastModified by Organization Detai ls LastModified Time None Recorded Concern Status LastModified by Organization Details LastModified Time None Recorded Payers Encounter Date Sequence Insurance Name Policy Number Policy Gregorio Covered Member ID Gregorio Member ID Guarantor Name 04/16/2025 1 AAMIR-ARIANE Shepherd [id number] Zehra Shepherd OBGydolores Episode No OBEpisode recorded.
--- OUTSIDE RECORDS SUMMARY | 2025-06-01 10:59 | XMS_ITS | Continuity of Care Document ---
Author Organization [place] [facility], Main Office Address [address] [place] [address] Care Team Providers Care Foundation Director Name Role Phone JENNIFER MCCORD Primary Care Provider [phone] Assessment No assessment recorded. Plan of Treatment [...] Modified By Organization Details Last Modified Time 05/15/2025 [id number] BACKGROUND 59 y/o female diabetic with moderately [...] MD ____ ____ Session notes Today's date: 15May2025 Session # 32 of 40 planed Next planned HBOT: 16May2025 22May - Found safe for HBOT this [...] session uneventfully. Tomorrow she returns to her enrollment management vice president for follow up. NATHAN DONIS 28May - not here due to conflicting medical appointment. NATHAN DONIS 29May - Cleared for HBOT this date and completed full session without problem. NATHAN DONIS 30May - Found safe for HBOT this date and completed full session without problem. She has also been back to see her Ash Handler, Dr Catherine Weathers, who Ms Shepherd states was pleased with progress. NATHAN DONIS 02Jun - Patient cleared for HBOT today. VS stable. FSBG within range. Patient completed full session with no problem. Lg Agudelo APRN 03Jun - We received last week's note from her enrollment management vice president and Dr Weathers expressed satisfaction with progress. [...] full session with no problem. Lg Agudelo HIGH VALUE ASSOCIATE 10Jun - Patient cleared for HBOT today. [...] full session with no problem. Lg Agudelo HIGH VALUE ASSOCIATE 19Jun - Patient deemed safe for HBOT today. VS stable. FSBG within range. Patient completed full session with no problem. Lg Agudelo APRN 20Jun - Arrived today without knee scooter; her enrollment management vice president has advised can do without. Cleared for [...] session with no problem. Julio Cesar.Francisco AndersonMagnus HIGH VALUE ASSOCIATE 25Jun - Patient cleared for HBOT today. VS stable. FSBG within range. Patient completed full session with no problem. Lg Andersonwood HIGH VALUE ASSOCIATE 26Jun - Patient cleared for HBOT today. VS stable. FSBG within range. Patient completed full session with no problem. Lg Andersonwood HIGH VALUE ASSOCIATE 27Jun - Found safe for HBOT this [...] for HBOT and completed full session uneventfully. [facility] [place] [place] [email or web address] Not available 05/15/2025 09:52:38 Reason for Referral None Reported. Procedures Surgical History Date Name Laterality Status Provider Name and Address Organization Details Recorded Time 05/27/20 [facility] Therapy Treatment Form completed [facility] 05/27/2025 09:45:15 05/26/20 25 [facility] Therapy Treatment Form completed [facility] 05/26/2025 09:41:49 05/23/20 25 [facility] Therapy Treatment Form completed [facility] 05/23/2025 09:53:41 05/22/20 25 [facility] Therapy Treatment Form completed [facility] 05/22/2025 09:49:19 05/21/20 25 [facility] Therapy Treatment Form completed [facility] 05/21/2025 09:56:08 05/20/20 25 [facility] Therapy Treatment Form completed [facility] 05/20/2025 09:41:29 05/19/20 25 [facility] Therapy Treatment Form completed [facility] 05/19/2025 09:45:34 05/16/20 25 [facility] Therapy Treatment Form completed Ngozi gonzalez [place] - [facility] 05/16/2025 09:41:57 05/15/20 25 [facility] Therapy Treatment Form completed Ngozi sharp [place] [facility] 05/15/2025 09:46:49 05/14/20 25 [facility] Therapy Treatment Form completed Ngozi gonzalez [place] [facility] 05/14/2025 14:06:43 05/13/20 25 [facility] Therapy Treatment Form completed Ngozi carlos [place] [facility] 05/13/2025 14:14:00 05/12/20 25 [facility] Therapy Treatment Form completed Ngozi carlos [place] [facility] 05/12/2025 14:06:32 05/09/20 25 [facility] Therapy Treatment Form completed [facility] 05/09/2025 14:20:41 05/08/20 25 [facility] Therapy Treatment Form completed Ngozi carlos [place] [facility] 05/08/2025 14:16:34 05/07/20 25 [facility] Therapy Treatment Form completed Ngozi carlos [place] [facility] 05/07/2025 14:34:11 05/06/20 25 [facility] Therapy Treatment Form completed Ngozi carlos [place] [facility] 05/06/2025 14:33:30 05/05/20 25 [facility] Therapy Treatment Form completed [facility] 05/05/2025 14:39:41 05/02/20 25 [facility] Therapy Treatment Form completed Ngozi carlos [place] [facility] 05/02/2025 14:38:10 05/01/20 25 [facility] Therapy Treatment Form completed [facility] 05/01/2025 14:30:47 04/30/20 25 [facility] Therapy Treatment Form completed Ngozi carlos [place] [facility] 04/30/2025 14:50:00 04/29/20 25 [facility] Therapy Treatment Form completed Zuleyka Andrew [place] - [facility] 04/29/2025 15:42:38 04/28/20 25 [facility] Therapy Treatment Form completed Ngozi carlos [place] [facility] 04/28/2025 13:47:28 04/25/20 25 [facility] Therapy Treatment Form completed Ngozi carlos [place] [facility] 04/25/2025 14:24:24 04/24/20 25 [facility] Therapy Treatment Form completed Zuleyka Morales [place] [facility] 04/24/2025 14:37:59 04/23/20 25 [facility] Therapy Treatment Form completed [facility] 04/23/2025 13:52:55 04/22/20 25 [facility] Therapy Treatment Form completed [facility] 04/22/2025 14:27:44 04/21/20 25 [facility] Therapy Treatment Form completed [facility] 04/21/2025 14:09:03 04/18/20 25 [facility] Therapy Treatment Form completed [facility] 04/18/2025 14:22:52 04/17/20 25 [facility] Therapy Treatment Form completed [facility] 04/17/2025 14:14:34 04/16/20 25 [facility] Therapy Treatment Form completed [facility] 04/16/2025 14:24:52 04/15/20 25 [facility] Therapy Treatment Form completed [facility] 04/15/2025 14:43:45 04/14/20 25 [facility] Therapy Treatment Form completed [facility] 04/14/2025 14:39:53 04/11/20 25 [facility] Therapy Treatment Form completed [facility] 04/11/2025 14:38:24 04/10/20 25 [facility] Therapy Treatment Form completed [facility] 04/10/2025 14:35:50 04/08/20 25 [facility] Therapy Treatment Form completed [facility] 04/08/2025 14:29:12 04/07/20 25 [facility] Therapy Treatment Form completed Nahomi Thurstno [place] [facility] 04/07/2025 11:54:59 04/06/20 25 [facility] Therapy Treatment Form completed Nahomi TitusJoye [place] [facility] 04/06/2025 12:08:17 04/05/20 25 [facility] Therapy Treatment Form completed Zuleyka Morales [place] [facility] 04/05/2025 11:59:40 04/04/20 25 [facility] Therapy Treatment Form completed Zuleyka Morales [place] [facility] 04/04/2025 17:25:52 04/03/20 25 [facility] Therapy Treatment Form completed Mariano Farley MD [place] [facility] 04/03/2025 18:06:39 04/03/20 [...] 77 tonsillectomy and adenoidectomy completed Shona Bender [place] [facility] 04/03/2025 13:57:37 Imaging [...] Updated DateTime 5 79 /min 16 /min 96.8 [degF] 75 /min 16 /min 98.1 [degF] 100 % 100 % 126/73 mm[Hg] 109/67 mm[Hg] [facility] 5 09:47:06 Social History None recorded. Functional Status None [...] SNOMED-CT Code Diagnosis ICD10 Code Diagnosis Note [id number] Mariano Farley MD Main Office [address] [place] [address] 04/15/2025 12:29:05 04/15/2025 18:07:29 [id number] Mariano Farley MD Main Office [address] [place] [address] 04/16/2025 12:09:34 04/16/2025 16:28:25 [id number] Mariano Farley MD Main Office [address] [place] [address] 04/17/2025 12:00:06 04/17/2025 15:57:18 [id number] Mariano Farley MD Main Office [address] [place] [address] 04/18/2025 12:10:37 04/18/2025 17:06:48 [id number] Mariano Farley MD Main Office [address] [place] [address] 04/21/2025 11:56:08 04/21/2025 16:04:26 [id number] Mariano Farley MD Main Office [address] [place] [address] 04/22/2025 11:58:46 04/22/2025 14:50:54 [id number] Mariano Farley MD Main Office [address] [place] [address] 04/23/2025 11:38:35 04/23/2025 14:47:00 [id number] Mariano Farley MD Main Office [address] [place] [address] 04/24/2025 12:20:48 04/24/2025 15:34:39 [id number] Mariano Farley MD Main Office [address] [place] [address] 04/25/2025 12:14:52 04/30/2025 15:40:51 [id number] Mariano Farley MD Main Office [address] [place] [address] 04/28/2025 11:33:32 05/01/2025 08:04:21 [id number] Mariano Farley MD Main Office [address] [place] [address] 04/29/2025 13:00:52 05/01/2025 08:57:14 [id number] Mariano Farley MD Main Office [address] [place] [address] 04/30/2025 12:43:07 05/01/2025 09:26:34 [id number] Mariano Farley MD Main Office [address] [place] [address] 05/01/2025 12:24:55 05/01/2025 15:28:20 [id number] Mariano Farley MD Main Office [address] [place] [address] 05/02/2025 12:29:37 05/05/2025 01:36:37 [id number] Mariano Farley MD Main Office [address] [place] [address] 05/05/2025 12:35:08 05/05/2025 15:28:24 [id number] Mariano Farley MD Main Office [address] [place] [address] 05/06/2025 12:22:35 05/06/2025 17:17:12 [id number] Mariano Farley MD Main Office [address] [place] [address] 05/07/2025 12:27:25 05/07/2025 14:53:23 [id number] Mariano Farley MD Main Office [address] [place] [address] 05/08/2025 12:04:54 05/08/2025 15:52:07 [id number] Mariano Farley MD Main Office [address] [place] [address] 05/09/2025 12:17:15 05/09/2025 17:22:51 [id number] aMriano Farley MD Main Office [address] [place] [address] 05/12/2025 12:05:21 05/12/2025 19:44:55 [id number] Mariano Farley MD Main Office [address] [place] [address] 05/13/2025 11:43:11 05/13/2025 17:35:49 [id number] Mariano Farley MD Main Office [address] [place] [address] 05/14/2025 12:18:55 05/14/2025 19:59:05 [id number] Mariano Farley MD Main Office [address] [address] [place] [address] 05/15/2025 07:47:37 05/15/2025 09:52:44 Health Concerns Section Related Observation LastModified by Organization Detai ls LastModified Time None Recorded Concern Status LastModified by Organization Details LastModified Time None Recorded Payers Encounter Date Sequence Insurance Name Policy Number Policy Gregorio Covered Member ID Greogrio Member ID Guarantor Name 05/15/2025 1 [id number] Zehra Sanor [id number] Zehra Sanor OBGyn Episode No OBEpisode recorded.
--- OUTSIDE RECORDS SUMMARY | 2025-06-01 10:59 | XMS_ITS | Clinical Summary ---
Author Organization [facility] Address [address] [place] [id number] Phone [email or web address] Care Team Providers Care Paper Slitter Name Role Phone No, Provider Primary Care Provider Unavailabl e Allergies Active Allergy Reactions Criticality Noted Date Comments Latex Rash Low 12/03/2018 Lisinopril Other (see comments) 06/05/2018 cough Medications Multiple Vitamins-Minera ls (MULTIVITAMIN ADULT PO) Take by mouth. Active Ascorbic Acid (vitamin C) 1000 MG tablet Take 1,000 mg by mouth 1 (one) time each day. Active VITAMIN D PO Take 500 mg by mouth. Active Jardiance 10 MG tablet Take 1 tablet by mouth 1 (one) time each day. 05/23/2022 Active metFORMIN XR (GLUCOPHAGE-XR) 500 MG 24 hr tablet 06/20/2022 Active diclofenac (VOLTAREN) 75 MG EC tablet 11/30/2022 Active SM Aspirin Low Dose 81 MG EC tablet 11/29/2022 Active Multiple Vitamins-Minera ls (VISTA ADVANCED AREDS2 FORMULA PO) Take by mouth. Active bisoprolol (ZEBETA) 5 MG tablet 5 mg. 04/19/2023 Active Continuous Blood Gluc Sensor (Dexcom G7 Sensor) [facility] Continuous Blood Gluc Telephone Solicitor Supervisor (Dexcom G7 Telephone Solicitor Supervisor) device Active rosuvastatin (CRESTOR) 10 MG tablet [...] by mouth 1 (one) time each day. 04/18/2022 Active Mounjaro 5 mg/0.5mL SC Auto-injector Inject 5 mg under the skin 1 (one) time per week. Active Active Problems Problem Noted Date Diagnosed Date History of arthroscopy of knee 06/27/2019 Biceps tendinitis 03/27/2019 Injury of tendon of rotator cuff 12/20/2018 Return to work evaluation 06/05/2018 Acquired trigger finger 10/01/2015 Overview (04/11/2018): Health examination of defined subpopulation 07/14 Overview (04/11/2018): Sprain of back 11/28/2007 Overview (04/11/2018): Encounters Date Type Department Care Team Description 04/21/2025 10:00 AM EDT Office Visit [facility] [address] [place] [address] Ruddy Castillo, OD [place] of [...] this topic Insurance [facility] Address: [address] [place], [place] [id number] [place] [address] Care Teams Paper Slitter Relationship Specialty Start Date End Date No, Provider [place] PCP - General Family Medicine 09/23/19
--- OUTSIDE RECORDS SUMMARY | 2025-06-01 10:59 | XMS_ITS | Continuity of Care Document ---
Author Organization [place] [facility], Main Office Address [address] [place] [address] Care Team Providers Care Electrical Cad Technician Name Role Phone JENNIFER MCCORD Primary Care Provider [phone] Assessment No assessment recorded. Plan of Treatment [...] Modified By Organization Details Last Modified Time 04/06/2025 3912 BACKGROUND 59 y/o female diabetic with moderately [...] 4 of 40 planed Next planned HBOT: 07Apr2025 22May - Found safe for HBOT this [...] and completed full session uneventfully. NATHAN DONIS [email or web address] Not available 04/08/2025 08:26:11 Reason for Referral None Reported. Procedures Surgical History Date Name Laterality Status Provider Name and Address Organization Details Recorded Time 05/27/20 25 [facility] Therapy Treatment Form completed [facility] - [facility] 05/27/2025 09:45:15 05/26/20 25 [facility] Therapy Treatment Form completed [facility] - [facility] 05/26/2025 09:41:49 05/23/20 25 [facility] Therapy Treatment Form completed [facility] - [facility] 05/23/2025 09:53:41 05/22/20 25 [facility] Therapy Treatment Form completed [facility] - [facility] 05/22/2025 09:49:19 05/21/20 25 [facility] Therapy Treatment Form completed [facility] - [facility] 05/21/2025 09:56:08 05/20/20 25 [facility] Therapy Treatment Form completed [facility] - [facility] 05/20/2025 09:41:29 05/19/20 25 [facility] Therapy Treatment Form completed [facility] [place] - [facility] 05/19/2025 09:45:34 05/16/20 25 [facility] Therapy Treatment Form completed [facility] - [facility] 05/16/2025 09:41:57 05/15/20 25 [facility] Therapy Treatment Form completed [facility] - [facility] 05/15/2025 09:46:49 05/14/20 25 [facility] Therapy Treatment Form completed [facility] - [facility] 05/14/2025 14:06:43 05/13/20 25 [facility] Therapy Treatment Form completed [facility] - [facility] 05/13/2025 14:14:00 05/12/20 25 [facility] Therapy Treatment Form completed [facility] - [facility] 05/12/2025 14:06:32 05/09/20 25 [facility] Therapy Treatment Form completed [facility] - [facility] 05/09/2025 14:20:41 05/08/20 25 [facility] Therapy Treatment Form completed [facility] - [facility] 05/08/2025 14:16:34 05/07/20 25 [facility] Therapy Treatment Form completed [facility] - [facility] 05/07/2025 14:34:11 05/06/20 25 [facility] Therapy Treatment Form completed [facility] - [facility] 05/06/2025 14:33:30 05/05/20 25 [facility] Therapy Treatment Form completed [facility] - [facility] 05/05/2025 14:39:41 05/02/20 25 [facility] Therapy Treatment Form completed [facility] - [facility] 05/02/2025 14:38:10 05/01/20 25 [facility] Therapy Treatment Form completed [facility] - [facility] 05/01/2025 14:30:47 04/30/20 25 [facility] Therapy Treatment Form completed [facility] - [facility] 04/30/2025 14:50:00 04/29/20 25 [facility] Therapy Treatment Form completed Zuleyka Andrew [place] - [facility] 04/29/2025 15:42:38 04/28/20 25 [facility] Therapy Treatment Form completed [facility] - [facility] 04/28/2025 13:47:28 04/25/20 25 [facility] Therapy Treatment Form completed [facility] - [facility] 04/25/2025 14:24:24 04/24/20 25 [facility] Therapy Treatment Form completed Zuleyka Morales [place] - [facility] 04/24/2025 14:37:59 04/23/20 25 [facility] Therapy Treatment Form completed Ngozi [facility] - [facility] 04/23/2025 13:52:55 04/22/20 25 [facility] Therapy Treatment Form completed [facility] - [facility] 04/22/2025 14:27:44 04/21/20 25 [facility] Therapy Treatment Form completed [facility] - [facility] 04/21/2025 14:09:03 04/18/20 25 [facility] Therapy Treatment Form completed [facility] - [facility] 04/18/2025 14:22:52 04/17/20 25 [facility] Therapy Treatment Form completed [facility] - [facility] 04/17/2025 14:14:34 04/16/20 25 [facility] Therapy Treatment Form completed [facility] - [facility] 04/16/2025 14:24:52 04/15/20 25 [facility] Therapy Treatment Form completed [facility] - [facility] 04/15/2025 14:43:45 04/14/20 25 [facility] Therapy Treatment Form completed [facility] - [facility] 04/14/2025 14:39:53 04/11/20 25 [facility] Therapy Treatment Form completed [facility] - [facility] 04/11/2025 14:38:24 04/10/20 25 [facility] Therapy Treatment Form completed [facility] - [facility] 04/10/2025 14:35:50 04/08/20 25 [facility] Therapy Treatment Form completed [facility] - [facility] 04/08/2025 14:29:12 04/07/20 25 [facility] Therapy Treatment Form completed Nahomi Thurston [place] - [facility] 04/07/2025 11:54:59 04/06/20 25 [facility] Therapy Treatment Form completed Nahomi Roote [place] - [facility] 04/06/2025 12:08:17 04/05/20 25 [facility] Therapy Treatment Form completed Zuleyka Morales [place] - [facility] 04/05/2025 11:59:40 04/04/20 25 [facility] Therapy Treatment Form completed Zuleyka Morales [place] - [facility] 04/04/2025 17:25:52 04/03/20 25 [facility] Therapy Treatment Form completed Mariano Farley MD [place] - [facility] 04/03/2025 18:06:39 04/03/20 [...] 99 % 115/70 mm[Hg] 121/74 mm[Hg] [facility] [place] - [facility] 5 12:11:02 [...] % 100 % 128/71 mm[Hg] 118/66 mm[Hg] [facility] [place] [facility] 5 11:54:12 [...] % 100 % 112/74 mm[Hg] 117/71 mm[Hg] [facility] - [facility] 14:29:31 Social [...] MD Main Office [address] [place] [address] 04/03/2025 13:39:59 04/03/2025 16:50:46 [id number] Mariano Farley MD Main Office [address] [address] 04/03/2025 15:32:51 04/03/2025 18:10:03 3904 Mariano Farley MD Main Office [address] [address] 04/04/2025 15:39:00 04/08/2025 08:19:46 390Chad Farley MD Main Office [address] [address] 04/05/2025 10:12:41 04/08/2025 08:22:20 3912 Mariano Farley MD Main Office [address] [address] 04/06/2025 10:28:04 04/08/2025 08:26:15 Health Concerns Section Related Observation LastModified by Organization Detai ls LastModified Time None Recorded Concern Status LastModified by Organization Details LastModified Time None Recorded Payers Encounter Date Sequence Insurance Name Policy Number Policy Gregorio Covered Member ID Gregorio Member ID Guarantor Name 04/06/2025 1 [employer] Zehra Shepherd [id number] Zehra Shepherd OBGyn Episode No OBEpisode recorded.
--- OUTSIDE RECORDS SUMMARY | 2025-06-01 10:59 | XMS_ITS | Continuity of Care Document ---
Author Organization [place] [facility], Main Office Address [address] [place] [address] Care Team Providers Care Washing Machine Mechanic Name Role Phone JENNIFER MCCORD Primary Care [...] session uneventfully. Tomorrow she returns to her heading repairer for follow up. NATHAN DONIS 28May - not here due to conflicting medical appointment. NATHAN DONIS 29May - Cleared for HBOT this date and completed full session without problem. NTAHAN DONIS 30May - Found safe for HBOT this date and completed full session without problem. She has also been back to see her Tray Packer, Dr Catherine Weathers, who Ms Shepherd states was pleased with progress. NATHAN DONIS 02Jun - Patient cleared for HBOT today. VS stable. FSBG within range. Patient completed full session with no problem. Lg Agudelo APRN 03Jun - We received last week's note from her heading repairer and Dr Weathers expressed satisfaction with progress. [...] full session with no problem. Lg Agudelo SALESFORCE ADMINISTRATOR 10Jun - Patient cleared for HBOT today. VS stable. FSBG within range. Patient completed full session with no problem. Julio Cesar.Francisco Agudelo SALESFORCE ADMINISTRATOR 11Jun - Patient deemed safe for HBOT today. VS stable. FSBS pre-treatment and post-treatment within range. Patient completed full session with no problem. Lg Agudelo SALESFORCE ADMINISTRATOR Not available 04/23/2025 14:46:54 Reason for Referral None Reported. Procedures Surgical History Date Name Laterality Status Provider Name and Address Organization Details Recorded Time 05/27/20 25 [facility] Therapy Treatment Form completed [facility] - [facility] 05/27/2025 09:45:15 05/26/20 25 [facility] Therapy Treatment Form completed [facility] - [facility] 05/26/2025 09:41:49 05/23/20 25 [facility] Therapy Treatment Form completed [facility] - [facility] 05/23/2025 09:53:41 05/22/20 25 [facility] Therapy Treatment Form completed [facility] - [facility] 05/22/2025 09:49:19 05/21/20 25 [facility] Therapy Treatment Form completed [facility] - [facility] 05/21/2025 09:56:08 05/20/20 25 [facility] Therapy Treatment Form completed [facility] - [facility] 05/20/2025 09:41:29 05/19/20 25 [facility] Therapy Treatment Form completed [facility] - [facility] 05/19/2025 09:45:34 05/16/20 25 [facility] Therapy Treatment Form completed [facility] - [facility] 05/16/2025 09:41:57 05/15/20 25 [facility] Therapy Treatment Form completed [facility] - [facility] 05/15/2025 09:46:49 05/14/20 25 [facility] Therapy Treatment Form completed [facility] - [facility] 05/14/2025 14:06:43 05/13/20 25 [facility] Therapy Treatment Form completed [facility] - [facility] 05/13/2025 14:14:00 05/12/20 25 [facility] Therapy Treatment Form completed [facility] - [facility] 05/12/2025 14:06:32 05/09/20 25 [facility] Therapy Treatment Form completed [facility] - [facility] 05/09/2025 14:20:41 05/08/20 25 [facility] Therapy Treatment Form completed [facility] - [facility] 05/08/2025 14:16:34 05/07/20 25 [facility] Therapy Treatment Form completed [facility] - [facility] 05/07/2025 14:34:11 05/06/20 25 [facility] Therapy Treatment Form completed [facility] - [facility] 05/06/2025 14:33:30 05/05/20 25 [facility] Therapy Treatment Form completed [facility] - [facility] 05/05/2025 14:39:41 05/02/20 25 [facility] Therapy Treatment Form completed [facility] - [facility] 05/02/2025 14:38:10 05/01/20 25 [facility] Therapy Treatment Form completed [facility] - [facility] 05/01/2025 14:30:47 04/30/20 25 [facility] Therapy Treatment Form completed [facility] - [facility] 04/30/2025 14:50:00 04/29/20 25 [facility] Therapy Treatment Form completed Zuleyka [place] - [facility] 04/29/2025 15:42:38 04/28/20 25 [facility] Therapy Treatment Form completed [facility] - [facility] 04/28/2025 13:47:28 04/25/20 25 [facility] Therapy Treatment Form completed [facility] - [facility] 04/25/2025 14:24:24 04/24/20 25 [facility] 04/24/2025 14:37:59 06/11/20 25 [facility] Therapy Treatment Form completed [facility] - [facility] 04/23/2025 13:52:55 04/22/20 25 [facility] Therapy Treatment Form completed [facility] - [facility] 04/22/2025 14:27:44 04/21/20 25 [facility] Therapy Treatment Form completed [facility] - [facility] 04/21/2025 14:09:03 04/18/20 25 [facility] Therapy Treatment Form completed [facility] - [facility] 04/18/2025 14:22:52 04/17/20 25 [facility] Therapy Treatment Form completed [facility] - [facility] 04/17/2025 14:14:34 04/16/20 25 [facility] Therapy Treatment Form completed [facility] - [facility] 04/16/2025 14:24:52 04/15/20 25 [facility] Therapy Treatment Form completed [facility] - [facility] 04/15/2025 14:43:45 04/14/20 25 [facility] Therapy Treatment Form completed [facility] - [facility] 04/14/2025 14:39:53 04/11/20 25 [facility] Therapy Treatment Form completed [facility] - [facility] 04/11/2025 14:38:24 04/10/20 25 [facility] Therapy Treatment Form completed [facility] - [facility] 04/10/2025 14:35:50 04/08/20 25 [facility] Therapy Treatment Form completed [facility] - [facility] 04/08/2025 14:29:12 04/07/20 25 [facility] Therapy Treatment Form completed [facility] [place] [facility] 04/07/2025 11:54:59 04/06/20 25 [facility] Therapy Treatment [facility] 04/06/2025 12:08:17 04/05/20 25 [facility] 04/05/2025 11:59:40 04/04/20 25 [facility] 04/04/2025 17:25:52 [...] % 100 % 121/72 mm[Hg] 116/77 mm[Hg] [facility] [place] - [facility] 5 13:53:17 [...] [address] [place] [address] 04/03/2025 13:39:59 04/03/2025 16:50:46 3890 Mariano Farley MD Main Office [address] [place] [address] 04/03/2025 15:32:51 04/03/2025 18:10:03 3904 Mariano Farley MD Main Office [address] [place] [address] 04/04/2025 15:39:00 04/08/2025 08:19:46 390Chad Farley MD Main Office [address] [place] [address] 04/05/2025 10:12:41 04/08/2025 08:22:20 3912 Mariano Farley MD Main Office [address] [place] [address] 04/06/2025 10:28:04 04/08/2025 08:26:15 Lis Farley MD Main Office [address] [place] [address] 04/07/2025 09:45:56 04/08/2025 08:30:09 3923 Mariano Farley MD Main Office [address] [place] [address] 04/08/2025 12:11:52 04/08/2025 18:52:34 [id number] Mariano Farley MD Main Office [address] [place] [address] 04/10/2025 12:15:32 04/11/2025 13:41:15 3974 Mariano Farley MD Main Office [address] [place] [address] 04/11/2025 12:17:41 04/14/2025 08:14:43 3993 Mariano Farley MD Main Office [address] [place] [address] 04/14/2025 12:22:08 04/14/2025 17:08:51 4010 Mariano Farley MD Main Office [address] [place] [address] 04/15/2025 12:29:05 04/15/2025 18:07:29 4030 Mariano Farley MD Main Office [address] [place] [address] 04/16/2025 12:09:34 04/16/2025 16:28:25 4044 Mariano Farley MD Main Office [address] [place] [address] 04/17/2025 12:00:06 04/17/2025 15:57:18 4073 Mariano Farley MD Main Office [address] [place] [address] 04/18/2025 12:10:37 04/18/2025 17:06:48 4091 Mariano Farley MD Main Office [address] [place] [address] 04/21/2025 11:56:08 04/21/2025 16:04:26 4113 Mariano Farley MD Main Office [address] [place] [address] 04/22/2025 11:58:46 04/22/2025 14:50:54 4131 Mariano Farley MD Main Office [address] [place] [address] 04/23/2025 11:38:35 04/23/2025 14:47:00 Health Concerns Section Related Observation LastModified by Organization Detai ls LastModified Time None Recorded Concern Status LastModified by Organization Details LastModified Time None Recorded Payers Encounter Date Sequence Insurance Name Policy Number Policy Gregorio Covered Member ID Gregorio Member ID Guarantor Name 04/23/2025 1 [employer] Zehra Sanor [id number] Zehra Sanor OBGyn Episode No OBEpisode recorded.
--- OUTSIDE RECORDS SUMMARY | 2025-06-01 10:59 | XMS_ITS | Continuity of Care Document ---
Author Organization [place] - [facility], Main Office Address [address] [place] [address] Care Team Providers Care Vp Publisher Development Name Role Phone CLAY MCCORDYasir Primary Care Provider [phone] Assessment Encounter Date Assessment Date Assessment LastModified by Organization Details LastModified Time 04/03/2025 04/03/2025 59 y/o female diabetic with moderately good [...] Diagnoses: T86.821; E11.621; L97.513 Mariano Farley MD [email or web address] Not available 04/03/2025 16:40:59 Plan of Treatment Reminders Order Date Submit [...] By Organization Details Last Modified Time 04/03/2025 8332 Appointment Date: [email or web address] Not availab le 04/03/2025 13:47:21 Reason for Referral None Reported. Procedures Surgical History Date Name Laterality Status Provider Name and Address Organization Details Recorded Time 05/27/20 25 [facility] Therapy Treatment Form completed Ngozi sharp [place] - [facility] 05/27/2025 09:45:15 05/26/20 25 [facility] Therapy Treatment Form completed [facility] - [facility] 05/26/2025 09:41:49 05/23/20 25 [facility] Therapy Treatment Form completed [facility] - [facility] 05/23/2025 09:53:41 05/22/20 25 [facility] Therapy Treatment Form completed [facility] - [facility] 05/22/2025 09:49:19 05/21/20 25 [facility] Therapy Treatment Form completed [facility] - [facility] 05/21/2025 09:56:08 05/20/20 25 [facility] Therapy Treatment Form completed [facility] - [facility] 05/20/2025 09:41:29 05/19/20 25 [facility] Therapy Treatment Form completed [facility] - [facility] 05/19/2025 09:45:34 05/16/20 25 [facility] Therapy Treatment Form completed [facility] - [facility] 05/16/2025 09:41:57 05/15/20 25 [facility] Therapy Treatment Form completed [facility] - [facility] 05/15/2025 09:46:49 05/14/20 25 [facility] Therapy Treatment Form completed [facility] - [facility] 05/14/2025 14:06:43 05/13/20 25 [facility] Therapy Treatment Form completed [facility] - [facility] 05/13/2025 14:14:00 05/12/20 25 [facility] Therapy Treatment Form completed [facility] - [facility] 05/12/2025 14:06:32 05/09/20 25 [facility] Therapy Treatment Form completed [facility] - [facility] 05/09/2025 14:20:41 05/08/20 25 [facility] Therapy Treatment Form completed [facility] - [facility] 05/08/2025 14:16:34 05/07/20 25 [facility] Therapy Treatment Form completed [facility] - [facility] 05/07/2025 14:34:11 05/06/20 25 [facility] Therapy Treatment Form completed [facility] - [facility] 05/06/2025 14:33:30 05/05/20 25 [facility] Therapy Treatment Form completed [facility] - [facility] 05/05/2025 14:39:41 05/02/20 25 [facility] Therapy Treatment Form completed [facility] - [facility] 05/02/2025 14:38:10 05/01/20 25 [facility] Therapy Treatment Form completed [facility] - [facility] 05/01/2025 14:30:47 04/30/20 25 [facility] Therapy Treatment Form completed [facility] - [facility] 04/30/2025 14:50:00 04/29/20 25 [facility] 04/29/2025 15:42:38 04/28/20 25 [facility] Therapy Treatment Form completed [facility] - [facility] 04/28/2025 13:47:28 04/25/20 25 [facility] Therapy Treatment Form completed [facility] - [facility] 04/25/2025 14:24:24 04/24/20 25 [facility] Therapy Treatment Form completed Zuleyka Morales [place] - [facility] 04/24/2025 14:37:59 04/23/20 25 [facility] Therapy Treatment Form completed [facility] - [facility] 04/23/2025 13:52:55 04/22/20 25 [facility] Therapy Treatment Form completed [facility] - [facility] 04/22/2025 14:27:44 04/21/20 25 [facility] Therapy Treatment Form completed [facility] - [facility] 04/21/2025 14:09:03 04/18/20 25 [facility] Therapy Treatment Form completed [facility] - [facility] 04/18/2025 14:22:52 04/17/20 25 [facility] Therapy Treatment Form completed [facility] - [facility] 04/17/2025 14:14:34 04/16/20 25 [facility] Therapy Treatment Form completed [facility] - [facility] 04/16/2025 14:24:52 04/15/20 25 [facility] Therapy Treatment Form completed [facility] - [facility] 04/15/2025 14:43:45 04/14/20 25 [facility] Therapy Treatment Form completed [facility] - [facility] 04/14/2025 14:39:53 04/11/20 25 [facility] Therapy Treatment Form completed Ngozi sharp [place] - [facility] 04/11/2025 14:38:24 04/10/20 [...] Therapy Treatment Form completed Mariano Farley MD [place] - [facility] 04/03/2025 18:06:39 04/03/20 25 Wound completed Shona Napoleon [facility] - [facility] 04/03/2025 13:47:21 03/13/20 24 Knee Replacement completed Shonajesse Bender [facility] - [facility] 04/03/2025 13:56:18 04/13/20 23 coronary artery bypass grafts x 4 completed Shona Bender [facility] - [facility] 04/03/2025 13:54:46 [...] 95 % 95 % 119/70 mm[Hg] Shona [facility]AK[facility] - [facility] 5 14:10:16 Date Recorded Heart rate Respiratory rate Body temperature Oxygen saturation Oxygen saturation in Arterial blood by Pulse oximetry Heart rate Respiratory rate Body temperature Oxygen saturation Oxygen saturation in Arterial blood by Pulse oximetry Systolic And Diastolic Systolic And Diastolic Provider Name and Address Organization Details Last Updated DateTime 65 /min 16 /min 97.7 [degF] 97 % 97 % 70 /min 16 /min 97.3 [degF] 100 % 100 % 126/75 mm[Hg] 107/71 mm[Hg] Ngozi [facility] - [facility] 17:41:01 Social History None recorded. Functional Status [...] Mariano Farley MD [address] [place] [address] 04/03/2025 13:39:59 04/03/2025 16:50:46 [id number] Mariano Farley MD Main Office [address] [address] 04/03/2025 15:32:51 04/03/2025 18:10:03 Health Concerns Section Related Observation LastModified by Organization Detai ls LastModified Time None Recorded Concern Status LastModified by Organization Details LastModified Time None Recorded Payers Encounter Date Sequence Insurance Name Policy Number Policy Gregorio Covered Member ID Gregorio Member ID Guarantor Name 04/03/2025 1 [employer] Zehra Shepherd [id number] Zehra Shepherd Notes Date Note Type Note Provider Name and Address Organization Details Recorded Time 04/03/2025 text/html 59 y/o female referred to us from her manager quantitative, Dr Gay Weathers, for complications with the [...] causing some disruption to suture line. By a major abscess with signs of systemic [...] Shepherd felt was appropriate. Mariano Farley MD [facility], [place] - [facility] 04/03/2025 16:50:45 OBGyn Episode No OBEpisode recorded.
--- OUTSIDE RECORDS SUMMARY | 2025-06-01 10:59 | XMS_ITS | Continuity of Care Document ---
Author Organization [place] - [facility], Main Office Address [address] [place] [address] Care Team Providers Care Recruiting Coordinator Name Role Phone JENNIFER MCCORD Primary Care [...] Modified By Organization Details Last Modified Time 04/30/2025 4218 BACKGROUND 59 y/o female diabetic with moderately [...] MD ____ ____ Session notes Today's date: 30Apr2025 Session # 21 of 40 planed Next planned HBOT: 01May2025Ma - Found safe for HBOT this date [...] session uneventfully. Tomorrow she returns to her clinical instructor for follow up. NATHAN DONIS 28May - not here due to conflicting medical appointment. NATHAN DONIS 29May - Cleared for HBOT this date and completed full session without problem. NATHAN DONIS 30May - Found safe for HBOT this date and completed full session without problem. She has also been back to see her House Servant, Dr Catherine Weathers, who Ms Shepherd states was pleased with progress. NATHAN DONIS 02Jun - Patient cleared for HBOT today. VS stable. FSBG within range. Patient completed full session with no problem. Lg Agudelo APRN 03Jun - We received last week's note from her clinical instructor and Dr Weathers expressed satisfaction with progress. [...] problem. Lg Agudelo APRN Not available 05/01/2025 09:27:31 Reason for Referral None Reported. Procedures Surgical History Date Name Laterality Status Provider Name and Address Organization Details Recorded Time 05/27/20 25 [facility] Therapy Treatment Form completed [facility] - [facility] 05/27/2025 09:45:15 05/26/20 25 [facility] Therapy Treatment Form completed [facility] - [facility] 05/26/2025 09:41:49 05/23/20 25 [facility] Therapy Treatment Form completed [facility] - [facility] 05/23/2025 09:53:41 05/22/20 25 [facility] Therapy Treatment Form completed [facility] - [facility] 05/22/2025 09:49:19 05/21/20 25 [facility] Therapy Treatment Form completed [facility] - [facility] 05/21/2025 09:56:08 05/20/20 25 [facility] Therapy Treatment Form completed [facility] - [facility] 05/20/2025 09:41:29 05/19/20 25 [facility] Therapy Treatment Form completed [facility] - [facility] 05/19/2025 09:45:34 05/16/20 25 [facility] Therapy Treatment Form completed [facility] - [facility] 05/16/2025 09:41:57 05/15/20 25 [facility] Therapy Treatment Form completed [facility] - [facility] 05/15/2025 09:46:49 05/14/20 25 [facility] Therapy Treatment Form completed [facility] - [facility] 05/14/2025 14:06:43 05/13/20 25 [facility] Therapy Treatment Form completed [facility] - [facility] 05/13/2025 14:14:00 05/12/20 25 [facility] Therapy Treatment Form completed [facility] 05/12/2025 14:06:32 05/09/20 25 [facility] Therapy Treatment Form completed [facility] - [facility] 05/09/2025 14:20:41 05/08/20 25 [facility] Therapy Treatment Form completed [facility] - [facility] 05/08/2025 14:16:34 05/07/20 25 [facility] Therapy Treatment Form completed [facility] - [facility] 05/07/2025 14:34:11 05/06/20 25 [facility] Therapy Treatment Form completed [facility] - [facility] 05/06/2025 14:33:30 05/05/20 25 [facility] Therapy Treatment Form completed [facility] - [facility] 05/05/2025 14:39:41 05/02/20 25 [facility] Therapy Treatment Form completed [facility] - [facility] 05/02/2025 14:38:10 05/01/20 25 [facility] Therapy Treatment Form completed Ngozi sharp [place] - [facility] 05/01/2025 14:30:47 04/30/20 25 [facility] Therapy Treatment Form completed Ngozi gonzalez [place] - [facility] 04/30/2025 14:50:00 04/29/20 25 [facility] Therapy Treatment Form completed Zuleyka Morales [place] - [facility] 04/29/2025 15:42:38 04/28/20 25 [facility] Therapy Treatment Form completed Ngozi gonzalez [place] - [facility] 04/28/2025 13:47:28 04/25/20 25 [facility] Therapy Treatment Form completed [facility] - [facility] 04/25/2025 14:24:24 04/24/20 25 [facility] Therapy Treatment Form completed Zuleyka Morales [place] - [facility] 04/24/2025 14:37:59 04/23/20 25 [facility] Therapy Treatment Form completed [facility] - [facility] 04/23/2025 13:52:55 04/22/20 25 [facility] Therapy Treatment Form completed Ngozi carlos [place] - [facility] 04/22/2025 14:27:44 04/21/20 25 [facility] Therapy Treatment Form completed Ngozi carlos [place] - [facility] 04/21/2025 14:09:03 04/18/20 25 [facility] Therapy Treatment Form completed Ngozi carlos [place] - [facility] 04/18/2025 14:22:52 04/17/20 25 [facility] Therapy Treatment Form completed Ngozi carlos [place] - [facility] 04/17/2025 14:14:34 04/16/20 25 [facility] Therapy Treatment Form completed Ngozi carlos [place] - [facility] 04/16/2025 14:24:52 04/15/20 25 [facility] Therapy Treatment Form completed [facility] - [facility] 04/15/2025 14:43:45 04/14/20 25 [facility] Therapy Treatment Form completed Ngozi carlos [place] - [facility] 04/14/2025 14:39:53 04/11/20 25 [facility] Therapy Treatment Form completed [facility] - [facility] 04/11/2025 14:38:24 04/10/20 25 [facility] Therapy Treatment Form completed [facility] - [facility] 04/10/2025 14:35:50 04/08/20 25 [facility] Therapy Treatment Form completed Ngozi sharp [place] - [facility] 04/08/2025 14:29:12 [...] % 117/72 mm[Hg] 116/74 mm[Hg] Ngozi gonzalez [place] - [facility] 5 14:50:19 Date [...] % 138/45 mm[Hg] 126/89 mm[Hg] Ngozi gonzalez [place] - [facility] 5 14:31:09 Social [...] Mariano Farley MD Main Office [address] [address] 04/03/2025 13:39:59 04/03/2025 16:50:46 [id number] Mariano Farley MD Main Office [address] [address] 04/03/2025 15:32:51 04/03/2025 18:10:03 3904 Mariano Farley MD Main Office [address] [address] 04/04/2025 15:39:00 04/08/2025 08:19:46 3909 Mariano Farley MD Main Office [address] [address] 04/05/2025 10:12:41 04/08/2025 08:22:20 3912 Mariano Farley MD Main Office [address] [address] 04/06/2025 10:28:04 04/08/2025 08:26:15 3913 Mariano Farley MD Main Office [address] [place] [address] 04/07/2025 09:45:56 04/08/2025 08:30:09 3923 Mariano Farley MD Main Office [address] [place] [address] 04/08/2025 12:11:52 04/08/2025 18:52:34 [id number] Mariano Farley MD Main Office [address] [place] [address] 04/10/2025 12:15:32 04/11/2025 13:41:15 3974 Mariano Farley MD Main Office [address] [place] [address] 04/11/2025 12:17:41 04/14/2025 08:14:43 3993 Mariano Farley MD Main Office [address] [place] [address] 04/14/2025 12:22:08 04/14/2025 17:08:51 4010 Mariano Farley MD Main Office [address] [place] [address] 04/15/2025 12:29:05 04/15/2025 18:07:29 4030 Mariano Farley MD Main Office [address] [place] [address] 04/16/2025 12:09:34 04/16/2025 16:28:25 4044 Mariano Farley MD Main Office [address] [place] [address] 04/17/2025 12:00:06 04/17/2025 15:57:18 4073 Mariano Farley MD Main Office [address] [place] [address] 04/18/2025 12:10:37 04/18/2025 17:06:48 4091 Mariano Farley MD Main Office [address] [place] [address] 04/21/2025 11:56:08 04/21/2025 16:04:26 4113 Mariano Farley MD Main Office [address] [place] [address] 04/22/2025 11:58:46 04/22/2025 14:50:54 4131 Mariano Farley MD Main Office [address] [place] [address] 04/23/2025 11:38:35 04/23/2025 14:47:00 4151 Mariano Farley MD Main Office [address] [place] [address] 04/24/2025 12:20:48 04/24/2025 15:34:39 4165 Mariano Farley MD Main Office [address] [place] [address] 04/25/2025 12:14:52 04/30/2025 15:40:51 4183 Mariano Farley MD Main Office [address] [place] [address] 04/28/2025 11:33:32 05/01/2025 08:04:21 4197 Mariano Farley MD Main Office [address] [place] [address] 04/29/2025 13:00:52 05/01/2025 08:57:14 4218 Mariano Farley MD Main Office [address] [place] [address] 04/30/2025 12:43:07 05/01/2025 09:26:34 Health Concerns Section Related Observation LastModified by Organization Detai ls LastModified Time None Recorded Concern Status LastModified by Organization Details LastModified Time None Recorded Payers Encounter Date Sequence Insurance Name Policy Number Policy Gregorio Covered Member ID Gregorio Member ID Guarantor Name 04/30/2025 1 [employer] Zehra Sanor [id number] Zehra Sanor OBGyn Episode No OBEpisode recorded.
--- OUTSIDE RECORDS SUMMARY | 2025-06-01 11:00 | XMS_ITS | Continuity of Care Document ---
Author Organization [place] - [facility], Main Office Address [address] [place] [address] Care Team Providers Care Turf Grower Name Role Phone JENNIFER MCCORD Primary Care [...] Modified By Organization Details Last Modified Time 05/05/2025 4269 BACKGROUND 59 y/o female diabetic with moderately [...] MD ____ ____ Session notes Today's date: 05May2025 Session # 24 of 40 planed Next planned HBOT: 06May2025 22May - Found safe for HBOT this [...] session uneventfully. Tomorrow she returns to her automobile damage appraiser for follow up. NATHAN DONIS 28May - not here due to conflicting medical appointment. NATHAN DONIS 29May - Cleared for HBOT this date and completed full session without problem. NATHAN DONIS 30May - Found safe for HBOT this date and completed full session without problem. She has also been back to see her Civil Defense Director, Dr Catherine Weathers, who Ms Shepherd states was pleased with progress. NATHAN DONIS 02Jun - Patient cleared for HBOT today. VS stable. FSBG within range. Patient completed full session with no problem. Lg Agudelo APRN 03Jun - We received last week's note from her automobile damage appraiser and Dr Weathers expressed satisfaction with progress. [...] - Arrived today without knee scooter; her automobile damage appraiser has advised can do without. Cleared for HBOT this date and completed full session without problem. NATHAN DONIS 23Jun - Patient deemed safe for HBOT today. VS stable. FSBG within range. Patient completed full session with no problem. Lg Agudelo APRN Not available 05/05/2025 15:28:19 Reason for Referral None Reported. Procedures Surgical History Date Name Laterality Status Provider Name and Address Organization Details Recorded Time 05/27/20 25 [facility] Therapy Treatment Form completed [facility] 05/27/2025 09:45:15 05/26/20 25 [facility] Therapy Treatment Form completed [facility] 05/26/2025 09:41:49 05/23/20 25 [facility] Therapy Treatment Form completed [facility] 05/23/2025 09:53:41 05/22/20 25 [facility] Therapy Treatment Form completed [facility] 05/22/2025 09:49:19 05/21/20 25 [facility] Therapy Treatment Form completed [facility] 05/21/2025 09:56:08 05/20/20 25 [facility] Therapy Treatment Form completed [facility] 05/20/2025 09:41:29 05/19/20 25 [facility] Therapy Treatment Form completed [facility] 05/19/2025 09:45:34 05/16/20 25 [facility] Therapy Treatment Form completed [facility] 05/16/2025 09:41:57 05/15/20 25 [facility] Therapy Treatment Form completed [facility] 05/15/2025 09:46:49 05/14/20 25 [facility] Therapy Treatment Form completed [facility] 05/14/2025 14:06:43 05/13/20 25 [facility] Therapy Treatment Form completed [facility] 05/13/2025 14:14:00 05/12/20 25 [facility] Therapy Treatment Form completed [facility] - [facility] 05/12/2025 14:06:32 05/09/20 25 [facility] Therapy Treatment Form completed [facility] 05/09/2025 14:20:41 05/08/20 25 [facility] Therapy Treatment Form completed [facility] 05/08/2025 14:16:34 05/07/20 25 [facility] Therapy Treatment Form completed [facility] 05/07/2025 14:34:11 05/06/20 25 [facility] Therapy Treatment Form completed [facility] - [facility] 05/06/2025 14:33:30 05/05/20 25 [facility] Therapy Treatment Form completed [facility] - [facility] 05/05/2025 14:39:41 05/02/20 25 [facility] Therapy Treatment Form completed [facility] - [facility] 05/02/2025 14:38:10 05/01/20 25 [facility] Therapy Treatment Form completed [facility] - [facility] 05/01/2025 14:30:47 04/30/20 25 [facility] Therapy Treatment Form completed [facility] - [facility] 04/30/2025 14:50:00 04/29/20 25 [facility] Therapy Treatment Form completed Zuleyka Morales [place] - [facility] 04/29/2025 15:42:38 04/28/20 25 [facility] Therapy Treatment Form completed [facility] - [facility] 04/28/2025 13:47:28 04/25/20 25 [facility] Therapy Treatment Form completed [facility] - [facility] 04/25/2025 14:24:24 04/24/20 25 [facility] Therapy Treatment Form completed Zuleyka Morales [place] - [facility] 04/24/2025 14:37:59 04/23/20 25 [facility] Therapy Treatment Form completed [facility] - [facility] 04/23/2025 13:52:55 04/22/20 25 [facility] Therapy Treatment Form completed [facility] - [facility] 04/22/2025 14:27:44 04/21/20 25 [facility] Therapy Treatment Form completed [facility] 04/21/2025 14:09:03 04/18/20 25 [facility] Therapy Treatment Form completed [facility] - [facility] 04/18/2025 14:22:52 04/17/20 25 [facility] Therapy Treatment Form completed [facility] - [facility] 04/17/2025 14:14:34 04/16/20 25 [facility] Therapy Treatment Form completed [facility] - [facility] 04/16/2025 14:24:52 04/15/20 25 [facility] Therapy Treatment Form completed [facility] - [facility] 04/15/2025 14:43:45 04/14/20 25 [facility] Therapy Treatment Form completed Ngozi gonzalez [place] - [facility] 04/14/2025 14:39:53 04/11/20 [...] Address Organization Details Last Updated DateTime 5 91 /min 16 /min 97.7 [degF] 98 % 98 % 79 /min 16 /min 97.5 [degF] 100 % 100 % 106/70 mm[Hg] 99/68 mm[Hg] [facility] - [facility] 14:39:59 Social History [...] SNOMED-CT Code Diagnosis ICD10 Code Diagnosis Note [id number] Mariano Farley MD Main Office [address] [place] [address] 04/04/2025 15:39:00 04/08/2025 08:19:46 [id number] Mariano Farley MD Main Office [address] [place] [address] 04/05/2025 10:12:41 04/08/2025 08:22:20 Aure Farley MD Main Office [address] [place] [address] 04/06/2025 10:28:04 04/08/2025 08:26:15 Lis Farley MD Main Office [address] [place] [address] 04/07/2025 09:45:56 04/08/2025 08:30:09 392Juli Farley MD Main Office [address] [place] [address] 04/08/2025 12:11:52 04/08/2025 18:52:34 [id number] Mariano Farley MD Main Office [address] [place] [address] 04/10/2025 12:15:32 04/11/2025 13:41:15 3974 Mariano Farley MD Main Office [address] [place] [address] 04/11/2025 12:17:41 04/14/2025 08:14:43 3993 Mariano Farley MD Main Office [address] [place] [address] 04/14/2025 12:22:08 04/14/2025 17:08:51 4010 Marinao Falrey MD Main Office [address] [place] [address] 04/15/2025 12:29:05 04/15/2025 18:07:29 4030 Mariano Farley MD Main Office [address] [place] [address] 04/16/2025 12:09:34 04/16/2025 16:28:25 4044 Mariano Farley MD Main Office [address] [place] [address] 04/17/2025 12:00:06 04/17/2025 15:57:18 4073 Mariano Farley MD Main Office [address] [place] [address] 04/18/2025 12:10:37 04/18/2025 17:06:48 4091 Mariano Farley MD Main Office [address] [place] [address] 04/21/2025 11:56:08 04/21/2025 16:04:26 4113 Mariano Farley MD Main Office [address] [place] [address] 04/22/2025 11:58:46 04/22/2025 14:50:54 4131 Mariano Farley MD Main Office [address] [place] [address] 04/23/2025 11:38:35 04/23/2025 14:47:00 4151 Mariano Farley MD Main Office [address] [place] [address] 04/24/2025 12:20:48 04/24/2025 15:34:39 4165 Mariano Farley MD Main Office [address] [place] [address] 04/25/2025 12:14:52 04/30/2025 15:40:51 4183 Mariano Farley MD Main Office [address] [place] [address] 04/28/2025 11:33:32 05/01/2025 08:04:21 4197 Mariano Farley MD Main Office [address] [place] [address] 04/29/2025 13:00:52 05/01/2025 08:57:14 4218 Mariano Farley MD Main Office [address] [place] , [place] [address] 04/30/2025 12:43:07 05/01/2025 09:26:34 [id number] Mariano Farley MD Main Office [address] [place] , [place] [address] 05/01/2025 12:24:55 05/01/2025 15:28:20 [id number] Mariano Farley MD Main Office [address] [place] , [place] [address] 05/02/2025 12:29:37 05/05/2025 01:36:37 [id number] Marinao Farley MD Main Office [address] [place] , [place] [address] 05/05/2025 12:35:08 05/05/2025 15:28:24 Health Concerns Section Related Observation LastModified by Organization Detai ls LastModified Time None Recorded Concern Status LastModified by Organization Details LastModified Time None Recorded Payers Encounter Date Sequence Insurance Name Policy Number Policy Gregorio Covered Member ID Gregorio Member ID Guarantor Name 05/05/2025 1 [employer] Zehra Sanor [id number] Zehra Sanor OBGyn Episode No OBEpisode recorded.
--- OUTSIDE RECORDS SUMMARY | 2025-06-01 11:00 | XMS_ITS | Continuity of Care Document ---
Author Organization [place] - [facility], Main Office Address [address] [place] [address] Care Team Providers Care Lacemaker Name Role Phone JENNIFER MCCORD Primary Care Provider [phone] Assessment No assessment recorded. Plan of Treatment [...] Modified By Organization Details Last Modified Time 04/25/2025 4165 BACKGROUND 59 y/o female diabetic with moderately [...] MD ____ ____ Session notes Today's date: 25Apr2025 Session # 18 of 40 planed Next planned HBOT: 28Apr2025 22May - Found safe for HBOT this [...] session uneventfully. Tomorrow she returns to her hydroelectric machinery mechanic for follow up. NATHAN DONIS 28May - not here due to conflicting medical appointment. NATHAN DONIS 29May - Cleared for HBOT this date and completed full session without problem. NATHAN DONIS 30May - Found safe for HBOT this date and completed full session without problem. She has also been back to see her Environmental Sustainability Manager, Dr Catherine Weathers, who Ms Shepherd states was pleased with progress. NATHAN DONIS 02Jun - Patient cleared for HBOT today. VS stable. FSBG within range. Patient completed full session with no problem. Lg Agudelo APRN 03Jun - We received last week's note from her hydroelectric machinery mechanic and Dr Weathers expressed satisfaction with progress. [...] session with no problem. Julio Cesar.Francisco Agudelo [employer]IC[employer]CTOR PACK[employer] SEALER 10Jun - Patient cleared for HBOT today. VS stable. FSBG within range. Patient completed full session with no problem. M.Francisco Agudelo SEMICONDUCTOR PACKAGES SEALER 11Jun - Patient deemed safe for HBOT today. VS stable. FSBS pre-treatment and post-treatment within range. Patient completed full session with no problem. M.Francisco Agudelo SEMICONDUCTOR PACKAGES SEALER 12Jun - Patient deemed safe for HBOT today. VS stable. FSBS pre-treatment and post-treatment within range. Patient completed full session with no problem. M.Francisco Agudelo SEMICONDUCTOR PACKAGES SEALER 13Jun - Found safe for HBOT this date and completed full session free of problem. [facility] [email or web address] Not available 04/30/2025 15:40:47 Reason for Referral None Reported. Procedures Surgical History Date Name Laterality Status Provider Name and Address Organization Details Recorded Time 05/27/20 [facility] Therapy Treatment Form completed [facility] - [facility] 05/27/2025 09:45:15 05/26/20 25 [facility] Therapy Treatment Form completed [facility] - [facility] 05/26/2025 09:41:49 05/23/20 25 [facility] Therapy Treatment Form completed [facility] - [facility] 05/23/2025 09:53:41 05/22/20 25 [facility] Therapy Treatment Form completed [facility] - [facility] 05/22/2025 09:49:19 05/21/20 25 [facility] Therapy Treatment Form completed [facility] - [facility] 05/21/2025 09:56:08 05/20/20 25 [facility] Therapy Treatment Form completed [facility] - [facility] 05/20/2025 09:41:29 05/19/20 25 [facility] Therapy Treatment Form completed [facility] - [facility] 05/19/2025 09:45:34 05/16/20 25 [facility] Therapy Treatment Form completed [facility] - [facility] 05/16/2025 09:41:57 05/15/20 25 [facility] Therapy Treatment Form completed [facility] - [facility] 05/15/2025 09:46:49 05/14/20 25 [facility] Therapy Treatment Form completed [facility] - [facility] 05/14/2025 14:06:43 05/13/20 25 [facility] Therapy Treatment Form completed [facility] - [facility] 05/13/2025 14:14:00 05/12/20 25 [facility] Therapy Treatment Form completed [facility] - [facility] 05/12/2025 14:06:32 05/09/20 25 [facility] Therapy Treatment Form completed [facility] - [facility] 05/09/2025 14:20:41 05/08/20 25 [facility] Therapy Treatment Form completed [facility] - [facility] 05/08/2025 14:16:34 05/07/20 25 [facility] Therapy Treatment Form completed [facility] - [facility] 05/07/2025 14:34:11 05/06/20 25 [facility] Therapy Treatment Form completed [facility] - [facility] 05/06/2025 14:33:30 05/05/20 25 [facility] Therapy Treatment Form completed [facility] 05/05/2025 14:39:41 05/02/20 25 [facility] Therapy Treatment Form completed [facility] - [facility] 05/02/2025 14:38:10 05/01/20 25 [facility] Therapy Treatment Form completed [facility] - [facility] 05/01/2025 14:30:47 04/30/20 25 [facility] Therapy Treatment Form completed [facility] 04/30/2025 14:50:00 04/29/20 25 [facility] Therapy Treatment Form completed Zuleyka Andrew [place] - [facility] 04/29/2025 15:42:38 04/28/20 25 [facility] Therapy Treatment Form completed [facility] - [facility] 04/28/2025 [...] [facility] Therapy Treatment Form completed [facility] 04/22/2025 14:27:44 04/21/20 25 [facility] Therapy Treatment Form completed Ngozi carlos [place] - [facility] 04/21/2025 14:09:03 04/18/20 25 [facility] Therapy Treatment Form completed [facility] - [facility] 04/18/2025 [...] [facility] Therapy Treatment Form completed [facility] 04/14/2025 14:39:53 04/11/20 25 [facility] Therapy Treatment Form completed Ngozi carlos [place] - [facility] 04/11/2025 14:38:24 04/10/20 25 [facility] Therapy Treatment Form completed [facility] 04/10/2025 14:35:50 04/08/20 25 [facility] Therapy Treatment Form completed Ngozi carlos [place] - [facility] 04/08/2025 14:29:12 04/07/20 25 [facility] Therapy Treatment Form completed Nahomi TitusJoye [place] - [facility] 04/07/2025 11:54:59 04/06/20 25 [facility] Therapy Treatment Form completed Nahomi TitusJoye [place] - [facility] 04/06/2025 12:08:17 04/05/20 25 [facility] Therapy Treatment Form completed Zuleyka Morales [place] - [facility] 04/05/2025 11:59:40 04/04/20 25 [facility] Therapy Treatment Form completed Zuleyka Beyden [place] - [facility] 04/04/2025 17:25:52 04/03/20 [...] 12/14/19 23 Gallbladder Surgery completed Shona Bender [place] - [facility] 04/03/2025 13:54:58 11/13/19 23 biopsy of skin completed Shona THAKKAR [facility] 04/03/2025 14:10:49 11/13/19 21 release of trigger finger completed Shona THAKKAR - [facility] 04/03/2025 13:55:11 11/13/19 21 hammer toe operation completed Shona Bender [place] - [facility] 04/03/2025 13:55:27 11/13/19 [...] 77 tonsillectomy and adenoidectomy completed Shona Bender [place] - [facility] 04/03/2025 13:57:37 Imaging [...] Updated DateTime 5 84 /min 16 /min 97.5 [degF] 97 % 97 % 80 /min 16 /min 97.5 [degF] 100 % 100 % 112/68 mm[Hg] 117/77 mm[Hg] [facility] - [facility] 5 14:24:44 Date Recorded Heart rate Respiratory rate Body [...] % 100 % 124/74 mm[Hg] 112/69 mm[Hg] [facility] 5 13:47:46 Date [...] 100 % 132/74 mm[Hg] 110/76 mm[Hg] Zuleyka Beyden [place] - [facility] 5 15:41:50 [...] [place] - [facility] 5 14:50:19 Social History None recorded. Functional Status None [...] Mariano Farley MD Main Office [address] [address] [place] [address] 04/03/2025 13:39:59 04/03/2025 16:50:46 3890 Mariano Farley MD Main Office [address] [facility] [address] [place] [address] 04/03/2025 15:32:51 04/03/2025 18:10:03 3904 Mariano Farley MD Main Office [address] [place] [address] 04/04/2025 15:39:00 04/08/2025 08:19:46 390Chad Farley MD Main Office [address] [place] [address] 04/05/2025 10:12:41 04/08/2025 08:22:20 3912 Mariano Farley MD Main Office [address] [place] [address] 04/06/2025 10:28:04 04/08/2025 08:26:15 3913 Mariano Farley MD Main Office [address] [place] [address] 04/07/2025 09:45:56 04/08/2025 08:30:09 3923 Mariano Farley MD Main Office [address] [place] [address] 04/08/2025 12:11:52 04/08/2025 18:52:34 3955 Mariano Farley MD Main Office [address] [place] [address] 04/10/2025 12:15:32 04/11/2025 13:41:15 3974 Mariano Farley MD Main Office [address] [place] [address] 04/11/2025 12:17:41 04/14/2025 08:14:43 3993 Mariano Farley MD Main Office [address] [place] [address] 04/14/2025 12:22:08 04/14/2025 17:08:51 4010 Mariano Farley MD Main Office [address] [place] [address] 04/15/2025 12:29:05 04/15/2025 18:07:29 4030 Mariano Farley MD Main Office [address] [place] [address] 04/16/2025 12:09:34 04/16/2025 16:28:25 4044 Mariano Farley MD Main Office [address] [place] [address] 04/17/2025 12:00:06 04/17/2025 15:57:18 4073 Mariano Farley MD Main Office [address] [place] [address] 04/18/2025 12:10:37 04/18/2025 17:06:48 4091 Mariano Farley MD Main Office [address] [place] [address] 04/21/2025 11:56:08 04/21/2025 16:04:26 4113 Mariano Farley MD Main Office [address] [place] [address] 04/22/2025 11:58:46 04/22/2025 14:50:54 4131 Mariano Farley MD Main Office [address] [place] [address] 04/23/2025 11:38:35 04/23/2025 14:47:00 4151 Mariano Farley MD Main Office [address] [place] [address] 04/24/2025 12:20:48 04/24/2025 15:34:39 4165 Mariano Farley MD Main Office [address] [place] [address] 04/25/2025 12:14:52 04/30/2025 15:40:51 Health Concerns Section Related Observation LastModified by Organization Detai ls LastModified Time None Recorded Concern Status LastModified by Organization Details LastModified Time None Recorded Payers Encounter Date Sequence Insurance Name Policy Number Policy Gregorio Covered Member ID Gregorio Member ID Guarantor Name 04/25/2025 1 [place] Zehra Sanor [id number] Zehra Sanor OBGyn Episode No OBEpisode recorded.
--- OUTSIDE RECORDS SUMMARY | 2025-06-01 11:00 | XMS_ITS | Continuity of Care Document ---
Author Organization [place] - [facility], Main Office Address [address] [place] [address] Care Team Providers Care Chiropractor Sole Practitioner Name Role Phone JENNIFER MCCORD Primary Care [...] Modified By Organization Details Last Modified Time 04/05/2025 3909 BACKGROUND 59 y/o female diabetic with moderately [...] MD ____ ____ Session notes Today's date: 05Apr2025 Session # 3 of 40 planed Next planned HBOT: 06Apr2025 22May - Found safe for HBOT this [...] full session free of problem. Jennifer DONIS [email or web address] Not available 04/08/2025 08:22:15 Reason for Referral None Reported. Procedures Surgical History Date Name Laterality Status Provider Name and Address Organization Details Recorded Time 05/27/20 25 [facility] Therapy Treatment Form completed [facility] - [facility] 05/27/2025 09:45:15 05/26/20 25 [facility] Therapy Treatment Form completed [facility] - [facility] 05/26/2025 09:41:49 05/23/20 25 [facility] Therapy Treatment Form completed [facility] - [facility] 05/23/2025 09:53:41 05/22/20 25 [facility] Therapy Treatment Form completed [facility] 05/22/2025 09:49:19 05/21/20 25 [facility] Therapy Treatment Form completed [facility] 05/21/2025 09:56:08 05/20/20 25 [facility] Therapy Treatment Form completed [facility] 05/20/2025 09:41:29 05/19/20 25 [facility] Therapy Treatment Form completed [facility] 05/19/2025 09:45:34 05/16/20 25 [facility] Therapy Treatment Form completed Ngozi sharp [place] - [facility] 05/16/2025 09:41:57 05/15/20 25 [facility] Therapy Treatment Form completed [facility] - [facility] 05/15/2025 09:46:49 05/14/20 25 [facility] Therapy Treatment Form completed [facility] 05/14/2025 14:06:43 05/13/20 25 [facility] Therapy Treatment Form completed [facility] 05/13/2025 14:14:00 05/12/20 25 [facility] Therapy Treatment Form completed [facility] 05/12/2025 14:06:32 05/09/20 25 [facility] Therapy Treatment Form completed [facility] 05/09/2025 14:20:41 05/08/20 25 [facility] Therapy Treatment Form completed [facility] 05/08/2025 14:16:34 05/07/20 25 [facility] Therapy Treatment Form completed [facility] 05/07/2025 14:34:11 05/06/20 25 [facility] Therapy Treatment Form completed [facility] 05/06/2025 14:33:30 05/05/20 25 [facility] Therapy Treatment Form completed [facility] 05/05/2025 14:39:41 05/02/20 25 [facility] Therapy Treatment Form completed [facility] 05/02/2025 14:38:10 05/01/20 25 [facility] Therapy Treatment Form completed [facility] 05/01/2025 14:30:47 04/30/20 25 [facility] Therapy Treatment Form completed [facility] 04/30/2025 14:50:00 04/29/20 25 [facility] Therapy Treatment Form completed Zuleyka Andrew [place] - [facility] 04/29/2025 15:42:38 04/28/20 25 [facility] Therapy Treatment Form completed [facility] 04/28/2025 13:47:28 04/25/20 25 [facility] Therapy Treatment Form completed [facility] 04/25/2025 14:24:24 04/24/20 25 [facility] Therapy Treatment Form completed Zuleyka Morales [place] - [facility] 04/24/2025 14:37:59 04/23/20 25 [facility] Therapy Treatment Form completed Ngozi gonzalez [place] - [facility] 04/23/2025 13:52:55 04/22/20 25 [facility] Therapy Treatment Form completed [facility] 04/22/2025 14:27:44 04/21/20 25 [facility] Therapy Treatment Form completed [facility] - [facility] 04/21/2025 14:09:03 04/18/20 25 [facility] Therapy Treatment Form completed [facility] 04/18/2025 14:22:52 04/17/20 25 [facility] Therapy Treatment Form completed Ngozi carlos [place] - [facility] 04/17/2025 14:14:34 04/16/20 25 [facility] Therapy Treatment Form completed [facility] 04/16/2025 14:24:52 04/15/20 25 [facility] Therapy Treatment Form completed Ngozi carlos [place] - [facility] 04/15/2025 14:43:45 04/14/20 25 [facility] Therapy Treatment Form completed [facility] - [facility] 04/14/2025 14:39:53 04/11/20 25 [facility] Therapy Treatment Form completed [facility] 04/11/2025 14:38:24 04/10/20 25 [facility] Therapy Treatment Form completed [facility] 04/10/2025 14:35:50 04/08/20 25 [facility] Therapy Treatment Form completed Ngozi carlos [place] - [facility] 04/08/2025 14:29:12 04/07/20 25 [facility] Therapy Treatment Form completed Nahomi Thurston [place] - [facility] 04/07/2025 11:54:59 04/06/20 25 [facility] Therapy Treatment Form completed Nahomi Thurston [place] - [facility] 04/06/2025 12:08:17 04/05/20 25 [facility] Therapy Treatment Form completed Zuleyka Morales [place] - [facility] 04/05/2025 11:59:40 04/04/20 25 [facility] Therapy Treatment Form completed Zuleyka Morales [place] - [facility] 04/04/2025 17:25:52 04/03/20 [...] 97 [degF] 123/76 mm[Hg] 115/76 mm[Hg] Zuleyka Morales [place] - [facility] 5 12:00:10 [...] 99 % 115/70 mm[Hg] 121/74 mm[Hg] Nahomi Root [place] - [facility] 5 12:11:02 [...] 100 % 128/71 mm[Hg] 118/66 mm[Hg] Nahomi Roote [place] - [facility] 5 11:54:12 [...] % 100 % 112/74 mm[Hg] 117/71 mm[Hg] [facility] 14:29:31 Social History [...] MD Main Office [address] [place] [address] 04/03/2025 13:39:59 04/03/2025 16:50:46 [id number] Mariano Farley MD Main Office [address] [place] [address] 04/03/2025 15:32:51 04/03/2025 18:10:03 [email or web address] Mariano Farley MD Main Office [address] [place] [address] 04/04/2025 15:39:00 04/08/2025 08:19:46 [id number] Mariano Farley MD Main Office [address] [place] [address] 04/05/2025 10:12:41 04/08/2025 08:22:20 Health Concerns Section Related Observation LastModified by Organization Detai ls LastModified Time None Recorded Concern Status LastModified by Organization Details LastModified Time None Recorded Payers Encounter Date Sequence Insurance Name Policy Number Policy Gregorio Covered Member ID Gregorio Member ID Guarantor Name 04/05/2025 1 [employer] Zehra Shepherd [id number] Zehra Shepherd OBGyn Episode No OBEpisode recorded.
--- OUTSIDE RECORDS SUMMARY | 2025-06-01 11:00 | XMS_ITS | Continuity of Care Document ---
Author Organization [place] [facility], Main Office Address [address] [place] [address] Care Team Providers Care Field Marketing Director Name Role Phone JENNIFER MCCORD Primary [...] Modified By Organization Details Last Modified Time 05/06/2025 4285 BACKGROUND 59 y/o female diabetic with moderately [...] MD ____ ____ Session notes Today's date: 06May2025 Session # 25 of 40 planed Next planned HBOT: 07May2025 22May - Found safe for HBOT this [...] session uneventfully. Tomorrow she returns to her automotive service consultant for follow up. NATHAN DONIS 28May - not here due to conflicting medical appointment. NATHAN DONIS 29May - Cleared for HBOT this date and completed full session without problem. NATHAN DONIS 30May - Found safe for HBOT this date and completed full session without problem. She has also been back to see her Kiln Pusher, Dr Catherine Weathers, who Ms Shepherd states was pleased with progress. NATHAN DONIS 02Jun - Patient cleared for HBOT today. VS stable. FSBG within range. Patient completed full session with no problem. Lg Agudelo APRN 03Jun - We received last week's note from her automotive service consultant and Dr Weathers expressed satisfaction with [...] full session with no problem. Lg Agudelo [employer] 10Jun - Patient cleared for HBOT today. VS stable. FSBG within range. Patient completed full session with no problem. Lg Agudelo [employer] 11Jun - Patient deemed safe for HBOT [...] full session with no problem. Lg Agudelo [employer] 17Jun - Patient deemed safe for HBOT today. VS stable. FSBG within range. Patient completed full session with no problem. Lg Agudelo APRN 18un - Patient deemed safe for HBOT today. VS stable. FSBG within range. Patient completed full session with no problem. Lg Agudelo [employer] 19Jun - Patient deemed safe for HBOT today. VS stable. FSBG within range. Patient completed full session with no problem. Lg Agudelo APRN 20Jun - Arrived today without knee scooter; her automotive service consultant has advised can do without. Cleared for HBOT this date and completed full session without problem. NATHAN DONIS 23Jun - Patient deemed safe for HBOT today. VS stable. FSBG within range. Patient completed full session with no problem. Lg Agudelo APRN 24Jun - Patient deemed safe for HBOT today. VS stable. FSBG within range. Patient completed full session with no problem. Julio CesarMaria DoloresFrancisco Agudelo [employer] Not available 05/06/2025 17:17:08 Reason for Referral None Reported. Procedures Surgical History Date Name Laterality Status Provider Name and Address Organization Details Recorded Time 05/27/20 25 [facility] Therapy Treatment Form completed [facility] 05/27/2025 09:45:15 05/26/20 25 [facility] Therapy Treatment Form completed [facility] 05/26/2025 09:41:49 05/23/20 25 [facility] Therapy Treatment Form completed [facility] 05/23/2025 09:53:41 05/22/20 25 [facility] Therapy Treatment Form completed [facility] 05/22/2025 09:49:19 05/21/20 25 [facility] Therapy Treatment Form completed [facility] 05/21/2025 09:56:08 05/20/20 25 [facility] Therapy Treatment Form completed [facility] 05/20/2025 09:41:29 05/19/20 25 [facility] Therapy Treatment Form completed [facility] 05/19/2025 09:45:34 05/16/20 25 [facility] Therapy Treatment Form completed [facility] 05/16/2025 09:41:57 05/15/20 25 [facility] Therapy Treatment Form completed [facility] 05/15/2025 09:46:49 05/14/20 25 [facility] Therapy Treatment Form completed [facility] - [facility] 05/14/2025 14:06:43 05/13/20 25 [facility] Therapy Treatment Form completed [facility] 05/13/2025 14:14:00 05/12/20 25 [facility] Therapy Treatment Form completed [facility] 05/12/2025 14:06:32 05/09/20 25 [facility] Therapy Treatment Form completed [facility] - [facility] 05/09/2025 14:20:41 05/08/20 25 [facility] Therapy Treatment Form completed [facility] 05/08/2025 14:16:34 05/07/20 25 [facility] Therapy Treatment Form completed [facility] - [facility] 05/07/2025 14:34:11 05/06/20 25 [facility] Therapy Treatment Form completed [facility] - [facility] 05/06/2025 14:33:30 05/05/20 25 [facility] Therapy Treatment Form completed [facility] - [facility] 05/05/2025 14:39:41 05/02/20 25 [facility] Therapy Treatment Form completed [facility] - [facility] 05/02/2025 14:38:10 05/01/20 25 [facility] Therapy Treatment Form completed [facility] - [facility] 05/01/2025 14:30:47 04/30/20 25 [facility] Therapy Treatment Form completed [facility] - [facility] 04/30/2025 14:50:00 04/29/20 25 [facility] 04/29/2025 15:42:38 04/28/20 25 [facility] Therapy Treatment Form completed [facility] - [facility] 04/28/2025 13:47:28 04/25/20 25 [facility] Therapy Treatment Form completed [facility] - [facility] 04/25/2025 14:24:24 04/24/20 25 [facility] 04/24/2025 14:37:59 04/23/20 25 [facility] Therapy Treatment Form completed [facility] - [facility] 04/23/2025 13:52:55 04/22/20 25 [facility] Therapy Treatment Form completed [facility] - [facility] 04/22/2025 14:27:44 04/21/20 25 [facility] Therapy Treatment Form completed [facility] - [facility] 04/21/2025 14:09:03 04/18/20 25 [facility] Therapy Treatment Form completed [facility] - [facility] 04/18/2025 14:22:52 04/17/20 25 [facility] Therapy Treatment Form completed [facility] - [facility] 04/17/2025 14:14:34 04/16/20 25 [facility] Therapy Treatment Form completed [facility] - [facility] 04/16/2025 14:24:52 04/15/20 25 [facility] Therapy Treatment Form completed Ngozi gonzalez [place] - [facility] 04/15/2025 14:43:45 04/14/20 25 [facility] Therapy Treatment Form completed Ngozi carlos [place] - [facility] 04/14/2025 14:39:53 04/11/20 25 [facility] Therapy Treatment Form completed Ngozi THAKK[facility] - [facility] 04/11/2025 14:38:24 04/10/20 25 [facility] Therapy Treatment Form completed [facility] - [facility] 04/10/2025 14:35:50 04/08/20 25 [facility] Therapy Treatment Form completed Ngozi carlos [place] - [facility] 04/08/2025 14:29:12 04/07/20 25 [facility] Therapy Treatment Form completed Nahomi Roote [place] - [facility] 04/07/2025 11:54:59 [...] /min 97.5 [degF] 100 % 100 % 60 /min 16 /min 97.9 [degF] 100 % 100 % 110/61 mm[Hg] 115/71 mm[Hg] Ngozi gonzalez [place] - [facility] 14:34:45 Social History None recorded. Functional Status None recorded. Mental Status None recorded. Family History Nothing Reported. Medical History Condition Response Coronary Artery Disease N Gout N Blood Diseases N Hyperthyroidism N Depression N COPD N Anxiety Disorder N Muscle, Joint, or Bone Problems N Arthritis Y Cancer Y Stroke N Fibromyalgia N Headaches N Kidney Disease N Heart Problems Y [...] SNOMED-CT Code Diagnosis ICD10 Code Diagnosis Note [id number] Mariano Farley MD Main Office [address] [place] [address] 04/05/2025 10:12:41 04/08/2025 08:22:20 [id number] Mariano Farley MD Main Office [address],[facility] [address] [place] [address] 04/06/2025 10:28:04 04/08/2025 08:26:15 [id number] Mariano Farley MD Main Office [address] [place] [address] 04/07/2025 09:45:56 04/08/2025 08:30:09 [id number] Mariano Farley MD Main Office [address] [place] [address] 04/08/2025 12:11:52 04/08/2025 18:52:34 [id number] Mariano Farley MD Main Office [address] [place] [address] 04/10/2025 12:15:32 04/11/2025 13:41:15 [id number] Mariano Farley MD Main Office [address] [place] [address] 04/11/2025 12:17:41 04/14/2025 08:14:43 [id number] Mariano Farley MD Main Office [address] [place] [address] 04/14/2025 12:22:08 04/14/2025 17:08:51 [id number] Mariano Farley MD Main Office [address] [place] [address] 04/15/2025 12:29:05 04/15/2025 18:07:29 [id number] Mariano Farley MD Main Office [address] [place] [address] 04/16/2025 12:09:34 04/16/2025 16:28:25 [id number] Mariano Farley MD Main Office [address] [place] [address] 04/17/2025 12:00:06 04/17/2025 15:57:18 [id number] Mariano Farley MD Main Office [address] [place] [address] 04/18/2025 12:10:37 04/18/2025 17:06:48 [id number] Mariano Farley MD Main Office [address] [place] [address] 04/21/2025 11:56:08 04/21/2025 16:04:26 [id number] Mariano Farley MD Main Office [address] [place] [address] 04/22/2025 11:58:46 04/22/2025 14:50:54 [id number] Mariano Farley MD Main Office [address] [place] [address] 04/23/2025 11:38:35 04/23/2025 14:47:00 [id number] Mariano Farley MD Main Office [address] [place] [address] 04/24/2025 12:20:48 04/24/2025 15:34:39 [id number] Mariano Farley MD Main Office [address] [place] [address] 04/25/2025 12:14:52 04/30/2025 15:40:51 [id number] Mariano Farley MD Main Office [address] [place] [address] 04/28/2025 11:33:32 05/01/2025 08:04:21 [id number] Mariano Farley MD Main Office [address] [place] [address] 04/29/2025 13:00:52 05/01/2025 08:57:14 [id number] Mariano Farley MD Main Office [address] [place] [address] 04/30/2025 12:43:07 05/01/2025 09:26:34 [id number] Mariano Farley MD Main Office [address] [place] [address] 05/01/2025 12:24:55 05/01/2025 15:28:20 [id number] Mariano Farley MD Main Office [address] [place] [address] 05/02/2025 12:29:37 05/05/2025 01:36:37 [id number] Mariano Farley MD Main Office [address] [place] [address] 05/05/2025 12:35:08 05/05/2025 15:28:24 [id number] Mariano Farley MD Main Office [address] [place] [address] 05/06/2025 12:22:35 05/06/2025 17:17:12 Health Concerns Section Related Observation LastModified by Organization Detai ls LastModified Time None Recorded Concern Status LastModified by Organization Details LastModified Time None Recorded Payers Encounter Date Sequence Insurance Name Policy Number Policy Gregorio Covered Member ID Gregorio Member ID Guarantor Name 05/06/2025 1 [employer] Zehra Shepherd [id number] Zehra Shepherd OBGydolores Episode No OBEpisode recorded.
--- OUTSIDE RECORDS SUMMARY | 2025-06-01 11:00 | XMS_ITS | Continuity of Care Document ---
Author Organization [place] - [facility], Main Office Address [address] [place] [address] Care Team Providers Care Environmental Health Technologist Name Role Phone JENNIFER MCCORD Primary Care Provider [phone] Assessment No assessment recorded. Plan of Treatment [...] Modified By Organization Details Last Modified Time 05/09/2025 4332 BACKGROUND 59 y/o female diabetic with moderately [...] MD ____ ____ Session notes Today's date: 09May2025 Session # 28 of 40 planed Next planned HBOT: 12May2025 22May - Found safe for HBOT this [...] session uneventfully. Tomorrow she returns to her investor relations specialist for follow up. NATHAN DONIS 28May - not here due to conflicting medical appointment. NATHAN DONIS 29May - Cleared for HBOT this date and completed full session without problem. NATHAN DONIS 30May - Found safe for HBOT this date and completed full session without problem. She has also been back to see her Completion Manager, Dr Catherine Weathers, who Ms Shepherd states was pleased with progress. NATHAN DONIS 02Jun - Patient cleared for HBOT today. VS stable. FSBG within range. Patient completed full session with no problem. Lg Agudelo APRN 03Jun - We received last week's note from her investor relations specialist and Dr Weathers expressed satisfaction with progress. [...] full session with no problem. Lg Agudelo CORN SHELLER OPERATOR 10Jun - Patient cleared for HBOT today. VS stable. FSBG within range. Patient completed full session with no problem. Lg Agudelo CORN SHELLER OPERATOR 11Jun - Patient deemed safe for [...] full session with no problem. Lg Agudelo CORN SHELLER OPERATOR 17Jun - Patient deemed safe for HBOT today. VS stable. FSBG within range. Patient completed full session with no problem. Lg Agudelo APRN 18un - Patient deemed safe for HBOT today. VS stable. FSBG within range. Patient completed full session with no problem. Lg Agudelo CORN SHELLER OPERATOR 19Jun - Patient deemed safe for HBOT today. VS stable. FSBG within range. Patient completed full session with no problem. Lg Agudelo APRN 20Jun - Arrived today without knee scooter; her investor relations specialist has advised can do without. Cleared for HBOT this date and completed full session without problem. NATHAN DONIS 23Jun - Patient deemed safe for HBOT today. VS stable. FSBG within range. Patient completed full session with no problem. Lg Agudelo APRN 24Jun - Patient deemed safe for HBOT today. VS stable. FSBG within range. Patient completed full session with no problem. Julio Cesar.A. Magnus CORN SHELLER OPERATOR 25Jun - Patient cleared for HBOT today. VS stable. FSBG within range. Patient completed full session with no problem. Julio Cesar.Francisco AndersonWasola CORN SHELLER OPERATOR 26Jun - Patient cleared for HBOT today. VS stable. FSBG within range. Patient completed full session with no problem. Julio Cesar.Francisco Agudelo CORN SHELLER OPERATOR 27Jun - Found safe for HBOT this date and completed full session with no problem. [facility] [email or web address] Not available 05/09/2025 17:22:46 Reason for Referral None Reported. Procedures Surgical History Date Name Laterality Status Provider Name and Address Organization Details Recorded Time 05/27/20 25 [facility] Therapy Treatment Form completed [facility] 05/27/2025 09:45:15 05/26/20 25 [facility] Therapy Treatment Form completed [facility] 05/26/2025 09:41:49 05/23/20 25 [facility] Therapy Treatment Form completed [facility] 05/23/2025 09:53:41 05/22/20 25 [facility] Therapy Treatment Form completed [facility] 05/22/2025 09:49:19 05/21/20 25 [facility] Therapy Treatment Form completed [facility] 05/21/2025 09:56:08 05/20/20 25 [facility] Therapy Treatment Form completed [facility] 05/20/2025 09:41:29 05/19/20 25 [facility] Therapy Treatment Form completed [facility] 05/19/2025 09:45:34 05/16/20 25 [facility] Therapy Treatment Form completed [facility] 05/16/2025 09:41:57 05/15/20 25 [facility] Therapy Treatment Form completed [facility] 05/15/2025 09:46:49 05/14/20 25 [facility] Therapy Treatment Form completed [facility] 05/14/2025 14:06:43 05/13/20 25 [facility] Therapy Treatment Form completed [facility] 05/13/2025 14:14:00 05/12/20 25 [facility] Therapy Treatment Form completed [facility] - [facility] 05/12/2025 14:06:32 05/09/20 25 [facility] Therapy Treatment Form completed [facility] - [facility] 05/09/2025 14:20:41 05/08/20 25 [facility] Therapy Treatment Form completed [facility] - [facility] 05/08/2025 14:16:34 05/07/20 25 [facility] Therapy Treatment Form completed [facility] - [facility] 05/07/2025 14:34:11 05/06/20 25 [facility] Therapy Treatment Form completed [facility] - [facility] 05/06/2025 14:33:30 05/05/20 25 [facility] Therapy Treatment Form completed [facility] - [facility] 05/05/2025 14:39:41 05/02/20 25 [facility] Therapy Treatment Form completed [facility] - [facility] 05/02/2025 14:38:10 05/01/20 25 [facility] Therapy Treatment Form completed [facility] - [facility] 05/01/2025 14:30:47 04/30/20 25 [facility] Therapy Treatment Form completed [facility] - [facility] 04/30/2025 14:50:00 04/29/20 25 [facility] Therapy Treatment Form completed Zuleyka Morales [place] - [facility] 04/29/2025 15:42:38 04/28/20 25 [facility] Therapy Treatment Form completed [facility] - [facility] 04/28/2025 13:47:28 04/25/20 25 [facility] Therapy Treatment Form completed [facility] - [facility] 04/25/2025 14:24:24 04/24/20 25 [facility] Therapy Treatment Form completed Zuleyka Morales [place] [facility] 04/24/2025 14:37:59 04/23/20 25 [facility] Therapy Treatment Form completed [facility] - [facility] 04/23/2025 13:52:55 04/22/20 25 [facility] Therapy Treatment Form completed [facility] - [facility] 04/22/2025 14:27:44 04/21/20 25 [facility] Therapy Treatment Form completed [facility] - [facility] 04/21/2025 14:09:03 04/18/20 25 [facility] Therapy Treatment Form completed Ngozi carlos [facility] - [facility] 04/18/2025 14:22:52 04/17/20 25 [facility] Therapy Treatment Form completed [facility] - [facility] 04/17/2025 14:14:34 04/16/20 25 [facility] Therapy Treatment Form completed Ngozi carlos [facility] - [facility] 04/16/2025 14:24:52 04/15/20 25 [facility] Therapy Treatment Form completed Ngozi carlos [facility] - [facility] 04/15/2025 14:43:45 04/14/20 25 [facility] Therapy Treatment Form completed Ngozi carlos [facility] - [facility] 04/14/2025 14:39:53 04/11/20 25 [facility] Therapy Treatment Form completed Ngozi carlos [place] - [facility] 04/11/2025 14:38:24 04/10/20 25 [facility] Therapy Treatment Form completed Ngozi carlos [place] - [facility] 04/10/2025 14:35:50 04/08/20 25 [facility] Therapy Treatment Form completed Ngozi carlos [facility] - [facility] 04/08/2025 14:29:12 [...] Updated DateTime 5 85 /min 16 /min 97.5 [degF] 95 % 95 % 70 /min 16 /min 98.6 [degF] 100 % 100 % 136/72 mm[Hg] 130/84 mm[Hg] [facility] 5 14:20:59 Social History None recorded. Functional Status None recorded. Mental Status None recorded. Family History Nothing Reported. Medical History Condition Response Allergies/Hayfever Y Coronary Artery Disease N Heart Problems Y Gout N Blood Diseases N Hyperthyroidism N Ear or Hearing Problems N Breast Cancer N Thyroid Problems N GI Problems N Hypothyroidism N COPD N Depression N Lung Disease N Developmental or Behavioral Disorders N Skin Problems Y Anemia N Anxiety Disorder N Diabetes Y Muscle, Joint, or Bone Problems N Arthritis Y Seizures/Epilepsy N AIDS/HIV N Congestive Heart Failure (CHF) N Cancer Y Stroke N Diverticulitis N Asthma N Endometriosis N Bladder or Kidney Problems N Liver Disease Y Heart Disease N Headaches N Fibromyalgia N Chronic Ear Infections N Hypertension N Osteoporosis N Kidney Disease N Gynecological HistoryNo gynecological history recorded. Obstetrics History GPAL:G 0 P 0 0 0 0 Past Encounters Encounter ID Performer Location Encounter Start Date Encounter Closed Date Diagnosis/Indication Diagnosis SNOMED-CT Code Diagnosis ICD10 Code Diagnosis Note [id number] Mariano Farley MD Main Office [address] [place] [address] 04/08/2025 12:11:52 04/08/2025 18:52:34 [id number] Mariano Farley MD Main Office [address] [place] [address] 04/10/2025 12:15:32 04/11/2025 13:41:15 [id number] Mariano Farley MD Main Office [address] [place] [address] 04/11/2025 12:17:41 04/14/2025 08:14:43 [id number] Mariano Farley MD Main Office [address] [place] [address] 04/14/2025 12:22:08 04/14/2025 17:08:51 [id number] Mariano Farley MD Main Office [address] [place] [address] 04/15/2025 12:29:05 04/15/2025 18:07:29 [id number] Mariano Farley MD Main Office [address] [place] [address] 04/16/2025 12:09:34 04/16/2025 16:28:25 [id number] Mariano Farley MD Main Office [address] [place] [address] 04/17/2025 12:00:06 04/17/2025 15:57:18 [id number] Mariano Farley MD Main Office [address] [place] [address] 04/18/2025 12:10:37 04/18/2025 17:06:48 [id number] Mariano Farley MD Main Office [address] [place] [address] 04/21/2025 11:56:08 04/21/2025 16:04:26 [id number] Mariano Farley MD Main Office [address] [place] [address] 04/22/2025 11:58:46 04/22/2025 14:50:54 [id number] Mariano Farley MD Main Office [address] [place] [address] 04/23/2025 11:38:35 04/23/2025 14:47:00 [id number] Mariano Farley MD Main Office [address] [place] [address] 04/24/2025 12:20:48 04/24/2025 15:34:39 [id number] Mariano Farley MD Main Office [address] [place] [address] 04/25/2025 12:14:52 04/30/2025 15:40:51 [id number] Mariano Farley MD Main Office [address] [place] [address] 04/28/2025 11:33:32 05/01/2025 08:04:21 [id number] Mariano Farley MD Main Office [address] [place] [address] 04/29/2025 13:00:52 05/01/2025 08:57:14 [id number] Mariano Farley MD Main Office [address] [place] [address] 04/30/2025 12:43:07 05/01/2025 09:26:34 [id number] Mariano Farley MD Main Office [address] [place] [address] 05/01/2025 12:24:55 05/01/2025 15:28:20 [id number] Mariano Farley MD Main Office [address] [place] [address] 05/02/2025 12:29:37 05/05/2025 01:36:37 [id number] Mariano Farley MD Main Office [address] [place] [address] 05/05/2025 12:35:08 05/05/2025 15:28:24 [id number] Mariano Farley MD Main Office [address] [place] [address] 05/06/2025 12:22:35 05/06/2025 17:17:12 [id number] Mariano Farley MD Main Office [address] [place] [address] 05/07/2025 12:27:25 05/07/2025 14:53:23 [id number] Mariano Farley MD Main Office [address] [place] [address] 05/08/2025 12:04:54 05/08/2025 15:52:07 [id number] Mariano Farley MD Main Office [address] [place] [address] 05/09/2025 12:17:15 05/09/2025 17:22:51 Health Concerns Section Related Observation LastModified by Organization Detai ls LastModified Time None Recorded Concern Status LastModified by Organization Details LastModified Time None Recorded Payers Encounter Date Sequence Insurance Name Policy Number Policy Gregorio Covered Member ID Gregorio Member ID Guarantor Name 05/09/[address] [facility] Zehra Sanor [id number] Zehra Sanor OBGyn Episode No OBEpisode recorded.
--- OUTSIDE RECORDS SUMMARY | 2025-06-01 11:00 | XMS_ITS | Continuity of Care Document ---
Author Organization [place] - [facility], Main Office Address [address] [place] [address] Care Team Providers Care Drafter Cartographic Name Role Phone JENNIFER MCCORD Primary Care [...] Modified By Organization Details Last Modified Time 05/08/2025 [id number] BACKGROUND 59 y/o female diabetic with moderately [...] MD ____ ____ Session notes Today's date: 08May2025 Session # 27 of 40 planed Next planned HBOT: 09May2025 22May - Found safe for HBOT this [...] session uneventfully. Tomorrow she returns to her compensation consultant for follow up. NATHAN DONIS 28May - not here due to conflicting medical appointment. NATHAN DONIS 29May - Cleared for HBOT this date and completed full session without problem. NATHAN DONIS 30May - Found safe for HBOT this date and completed full session without problem. She has also been back to see her Smooth Stucco Resurfacer, Dr Catherine Weathers, who Ms Shepherd states was pleased with progress. NATHAN DONIS 02Jun - Patient cleared for HBOT today. VS stable. FSBG within range. Patient completed full session with no problem. Lg Agudelo APRN 03Jun - We received last week's note from her compensation consultant and Dr Weathers expressed satisfaction with [...] full session with no problem. Lg Agudelo BUNDLES HANGER 10Jun - Patient cleared for HBOT today. VS stable. FSBG within range. Patient completed full session with no problem. Lg Agudelo BUNDLES HANGER 11Jun - Patient deemed safe for HBOT [...] full session with no problem. Lg Agudelo BUNDLES HANGER 17Jun - Patient deemed safe for HBOT today. VS stable. FSBG within range. Patient completed full session with no problem. Lg Agudelo APRN 18un - Patient deemed safe for HBOT today. VS stable. FSBG within range. Patient completed full session with no problem. Lg Agudelo BUNDLES HANGER 19Jun - Patient deemed safe for HBOT today. VS stable. FSBG within range. Patient completed full session with no problem. Lg Agudelo APRN 20Jun - Arrived today without knee scooter; her compensation consultant has advised can do without. Cleared for HBOT this date and completed full session without problem. NATHAN DONIS 23Jun - Patient deemed safe for HBOT today. VS stable. FSBG within range. Patient completed full session with no problem. Lg Agudelo APRN 24Jun - Patient deemed safe for HBOT today. VS stable. FSBG within range. Patient completed full session with no problem. Julio Cesar.Frnacisco AndersonMagnus BUNDLES HANGER 25Jun - Patient cleared for HBOT today. VS stable. FSBG within range. Patient completed full session with no problem. Julio Cesar.Francisco Agudelo BUNDLES HANGER 26Jun - Patient cleared for HBOT today. VS stable. FSBG within range. Patient completed full session with no problem. Lg Agudelo BUNDLES HANGER Not available 05/08/2025 15:52:01 Reason for Referral None Reported. Procedures Surgical History Date Name Laterality Status Provider Name and Address Organization Details Recorded Time 05/27/20 25 [facility] Therapy Treatment Form completed [facility] 05/27/2025 09:45:15 05/26/20 25 [facility] Therapy Treatment Form completed [facility] 05/26/2025 09:41:49 05/23/20 25 [facility] Therapy Treatment Form completed [facility] 05/23/2025 09:53:41 05/22/20 25 [facility] Therapy Treatment Form completed [facility] 05/22/2025 09:49:19 05/21/20 25 [facility] Therapy Treatment Form completed [facility] 05/21/2025 09:56:08 05/20/20 25 [facility] Therapy Treatment Form completed [facility] 05/20/2025 09:41:29 05/19/20 25 [facility] Therapy Treatment Form completed [facility] 05/19/2025 09:45:34 05/16/20 25 [facility] Therapy Treatment Form completed [facility] 05/16/2025 09:41:57 05/15/20 25 [facility] Therapy Treatment Form completed [facility] 05/15/2025 09:46:49 05/14/20 25 [facility] Therapy Treatment Form completed [facility] 05/14/2025 14:06:43 05/13/20 25 [facility] Therapy Treatment Form completed [facility] 05/13/2025 14:14:00 05/12/20 25 [facility] Therapy Treatment Form completed [facility] 05/12/2025 14:06:32 06/27/20 25 [facility] Therapy Treatment Form [...] [facility] 04/29/2025 15:42:38 04/28/20 25 [facility] Therapy Treatment Form completed [facility] - [facility] 04/28/2025 13:47:28 04/25/20 25 [facility] Therapy Treatment Form completed [facility] - [facility] 04/25/2025 14:24:24 04/24/20 25 [facility] 04/24/2025 14:37:59 04/23/20 25 [facility] Therapy Treatment Form completed [facility] 04/23/2025 13:52:55 [...] Oxygen Care Therapy Treatment Form completed [facility] [place] [place] - [facility] 04/06/2025 12:08:17 [...] 13:57:12 11/13/18 92 section completed Shona [facility] 04/03/2025 13:57:07 11/13/18 84 appendectomy completed Shona [facility] 04/03/2025 13:57:28 11/13/18 77 tonsillectomy and adenoidectomy completed Shona [facility]AKK[facility] 04/03/2025 13:57:37 Imaging [...] Updated DateTime 5 75 /min 16 /min 97.4 [degF] 98 % 98 % 70 /min 16 /min 97.9 [degF] 99 % 99 % 135/74 mm[Hg] 127/77 mm[Hg] [facility] [place] - [facility] 5 14:16:50 Social History None recorded. Functional Status None [...] SNOMED-CT Code Diagnosis ICD10 Code Diagnosis Note [id number] Mariano Farley MD Main Office [address] [place] [address] 04/07/2025 09:45:56 04/08/2025 08:30:09 [id number] Mariano Farley MD Main Office [address] [place] [address] 04/08/2025 12:11:52 04/08/2025 18:52:34 [id number] Mariano Farley MD Main Office [address] [place] [address] 04/10/2025 12:15:32 04/11/2025 13:41:15 [id number] Mariano Farley MD Main Office [address] [place] [address] 04/11/2025 12:17:41 04/14/2025 08:14:43 [id number] Mariano Farley MD Main Office [address] [place] [address] 04/14/2025 12:22:08 04/14/2025 17:08:51 [id number] Mariano Farley MD Main Office [address] [place] [address] 04/15/2025 12:29:05 04/15/2025 18:07:29 [id number] Mariano Farley MD Main Office [address] [place] [address] 04/16/2025 12:09:34 04/16/2025 16:28:25 [id number] Mariano Farley MD Main Office [address] [place] [address] 04/17/2025 12:00:06 04/17/2025 15:57:18 [id number] Mariano Farley MD Main Office [address] [place] [address] 04/18/2025 12:10:37 04/18/2025 17:06:48 [id number] Mariano Farley MD Main Office [address] [place] [address] 04/21/2025 11:56:08 04/21/2025 16:04:26 [id number] Mariano Farley MD Main Office [address] [place] [address] 04/22/2025 11:58:46 04/22/2025 14:50:54 [id number] Mariano Farley MD Main Office [address] [place] [address] 04/23/2025 11:38:35 04/23/2025 14:47:00 [id number] Mariano Farley MD Main Office [address] [place] [address] 04/24/2025 12:20:48 04/24/2025 15:34:39 [id number] Mariano Farley MD Main Office [address] [place] [address] 04/25/2025 12:14:52 04/30/2025 15:40:51 [id number] Mariano Farley MD Main Office [address] [place] [address] 04/28/2025 11:33:32 05/01/2025 08:04:21 [id number] Mariano Farley MD Main Office [address] [place] [address] 04/29/2025 13:00:52 05/01/2025 08:57:14 [id number] Mariano Farley MD Main Office [address] [place] [address] 04/30/2025 12:43:07 05/01/2025 09:26:34 [id number] Mariano Farley MD Main Office [address] [place] [address] 05/01/2025 12:24:55 05/01/2025 15:28:20 [id number] Mariano Farley MD Main Office [address] [place] [address] 05/02/2025 12:29:37 05/05/2025 01:36:37 [id number] Mariano Farley MD Main Office [address] [place] [address] 05/05/2025 12:35:08 05/05/2025 15:28:24 [id number] Mariano Farley MD Main Office [address] [place] [address] 05/06/2025 12:22:35 05/06/2025 17:17:12 [id number] Mariano Farley MD Main Office [address] [place] [address] 05/07/2025 12:27:25 05/07/2025 14:53:23 [id number] Mariano Farley MD Main Office [address] [place] [address] 05/08/2025 12:04:54 05/08/2025 15:52:07 Health Concerns Section Related Observation LastModified by Organization Detai ls LastModified Time None Recorded Concern Status LastModified by Organization Details LastModified Time None Recorded Payers Encounter Date Sequence Insurance Name Policy Number Policy Gregorio Covered Member ID Gregorio Member ID Guarantor Name 05/08/2025 1 [id number] Zehra Shepherd [id number] Zehra Shepherd OBGyn Episode No OBEpisode recorded.
[2025-06-01 11:02] VITALS: BP 102/61; PULSE 77; RESP 18; TEMP 36.8; O2SAT 100
== END 2025-06-01 11:03 | disposition home or self-care (01) ==
PROVIDERS: Emergency Provider Student in an Organized Health Care Education/Training Program; PCP Nurse Practitioner Family
DX: M79.89 Other specified soft tissue disorders; W57.XXXA Bitten or stung by nonvenomous insect and other nonvenomous arthropods, initial encounter; T63.461A Toxic effect of venom of wasps, accidental (unintentional), initial encounter; E11.9 Type 2 diabetes mellitus without complications
CPT/HCPCS: 99282

== ENCOUNTER 2025-06-27 14:49 | Outpatient (CLI) | payer BC, SELFPAY ==
--- OUTSIDE RECORDS SUMMARY | 2025-06-13 11:30 | XMS_ITS | Encounter Summary ---
Author Organization [facility] Address [address] [place] [address] Phone [email or web address] Care Team Providers Care Motor Vehicle Parts Interpreter Name Role Phone No, Provider Primary Care Provider Unavailabl e Reason for Visit * Reason Comments Return to Work / Duty Musculoskeletal Issue Encounter Details Date Type Department Care Team (Latest Contact Info) Description 06/13/2025 11:30 AM EDT Office Visit [facility] [address] [place] [address] Rasheeda Quinteros, CASH SURRENDER CALCULATOR [address] [place] [address] Encounter for other administrative examinations (Primary Dx); S/P amputation of lesser toe, right (CMS/HCC); Hx of diabetes mellitus Social History Tobacco Use Types Packs/Day Years [...] on file documented as of this encounter Last Filed Vital Signs Vital Sign Reading Time Taken Comments Blood Pressure 126/79 06/13/2025 11:31 AM EDT Pulse 79 06/13/2025 11:31 AM EDT Temperature 36.6 C (97.8 F) 06/13/2025 11:31 AM EDT Respiratory Rate 18 06/13/2025 11:31 AM EDT Oxygen Saturation 97% 06/13/2025 11:31 AM EDT Inhaled Oxygen Concentration - - Weight - - Height - - Body Mass Index - - documented in this encounter Patient Instructions * Patient Instructions* Rasheeda Quinteros NP - 06/13/2025 11:30 AM EDT RTW, reintro 06/16 x6 days. Cont care per PCP/specialist. F/u IHS PRN. documented in this encounter Progress Notes * Rasheeda Quinteros NP - 06/13/2025 11:30 AM EDT Subjective Zehra Shepherd calls clinic to discuss return to work after personal medical leave of absence for amputation of 2nd digit of right foot. WD ID: [id number] Employer: [employer]: [id number] Shift: 1 Full-time GL and #: Edmar Randhawa Previous/current indefinite restrictions? No LDW: 03/31/25 DOS: 04/02/25 PROCEDURE: Amputation SURGEON: Dr.Sophia Weathers [facility] RELEASE: Regular Duty 06/16/25 PMLOA: TM is type 2 diabetic and had an infection which resulted in complete amputation of R foot 2nd digit. Released full duty for 06/16/25. Tm states surgery went well and she did not have any complications post operatively. Tm states that area is completed healed. No additional concerns voiced. Triage nurse: Mabel Mcgrath RN HPI As noted in CC. TM doing well s/p right 2nd toe amputation. Has had difficulty with her feet for some time due to her diabetes. States her left foot was looking bad with calluses and open areas. States she developed fever, chills, foot swelling and redness and went to the ER. Subsequently admitted with IV abx then surgery. Pleased with surgery outcome. Denies any current pain or tenderness. Hasher usual neuropathy. No issues with ambulation. Declines WC/WH but is agreeable to reintro. History Reviewed: Allergies Meds Problems Med Hx Surg Hx Objective Visit Vitals BP 126/79 Pulse 79 Temp 97.8 ??F Resp 18 SpO2 97% OB Status Postmenopausal Smoking Status Former Review of Systems Constitutional: Negative. Musculoskeletal: See CC/HPI. PHQ-9 Total Score: 0 (06/13/2025 11:34 AM) Physical Exam Vitals and nursing note reviewed. Constitutional: General: She is not in acute distress. Pulmonary: Effort: Pulmonary effort is normal. Neurological: General: No focal deficit present. Mental Status: She is alert. Psychiatric: Mood and Affect: Mood normal. Musculoskeletal: Sitting Position: Inspection Swelling: none Erythema: none Scars: well-healed surgical site Palpation Warmth: normal Tenderness: none Vascular Pulses: present and normal Neuromotor ROM: normal ankle/able to fan remaining toes Strength: normal Gait Abnormality: none Sensation: light touch - diminished Assessment: ICD-10-CM ICD-9-CM 1. Encounter for other administrative examinations Z02.89 V68.89 2. S/P amputation of lesser toe, right (CMS/HCC) Z89.421 V49.72 3. Hx of diabetes mellitus Z86.39 V12.29 No orders of the defined types were placed in this encounter. Patient Instructions RTW, reintro 8/4 x6 days. Cont care per PCP/specialist. F/u IHS PRN. documented in this encounter Plan of Treatment Not on file documented as of this encounter Visit Diagnoses Diagnosis Encounter for other administrative examinations- Primary S/P amputation of lesser toe, right (CMS/HCC) Hx of diabetes mellitus documented in this encounter Care Teams Motor Vehicle Parts Interpreter Relationship Specialty Start Date End Date No, Provider VICTOR MANUEL Nixon PCP - General Family Medicine 09/23/19 documented as of this encounter
--- OUTSIDE RECORDS SUMMARY | 2025-06-27 14:52 | XMS_ITS | Encounter Summary ---
Author Organization [employer] ([place], [place], [place], [place]) Address [address] [place] [address] Care Team Providers Care Assistant Public Defender Name Role Phone Amalia Walter Primary Care Provider [phone] Encounter Details Date Type Department Care Team (Late st Contact Info) Description 01/28/2021 Transcribed Document [facility] [place] Family Medicine [address] [place] [address] ProviderEmely MD [address] [place] [address] Social History Tobacco Use Types [...] Emely ProviderMD - 01/28/2021 12:31 PM CDT [facility] Main OR IntraOp Summary Primary Physician: NORMA FOSTER DPM-POD Finalized Date/Time: 02/01/21 11:07:37 Pt. Name: ZEHRA ESPINO /Sex: 1965 Female Med Rec #: [id number] Physician: NORAM FOSTER DPM-POD Financial #: [id number] Pt. Type: O Room/Bed: Admit/Disch: 01/28/21 08:17:00 - 01/28/21 14:43:00 Institution: [facility] IntraOp Case Attendance Entry 1 Entry 2 Entry 3 Case Attendee NORMA FOSTER DPM-Lisbeth Puckett, JASMINE FRANKLIN RN Role Performed Surgeon/Proceduralist, Sales Operations Specialist, First Sales Operations Specialist, Second First Time In 01/28/21 12:13:00 01/28/21 [...] Attendee IN FOR SET-UP [facility] Superficial Wound Closed By: Last Modified By: Lisbeth Haas RN Proffitt, Debbie, RN Proffitt, Debbie, RN 01/28/21 13:18:17 01/28/21 13:18:17 01/28/21 13:18:17 Entry 7 Entry 8 Entry 9 Case Attendee OTHER, ATTENDEE #3 TAE TYLER, ANSHUL-ANS YUSRA DOSHI MD-ANS Role Performed Vendor CHECKING DEPARTMENT SUPERVISOR/Nurse Healthcare Administration Intern Anesthesiologist of Record Time In 01/28/21 12:13:00 [...] RN 01/28/21 13:18:17 01/28/21 13:18:17 01/28/21 13:18:17 [facility] IntraOp Case Attendance Audit 01/28/21 13:18:30 Administrative Office Assistant: PROFITDE Modifier: PROFITDE <+> 1 Procedure 01/28/21 13:18:17 Administrative Office Assistant: PROFITDE Modifier: PROFITDE <+> 1 Time Out [...] Repair(Right), Neuroma Excision Soft Tissue 01/28/21 13:02:00 Administrative Office Assistant: PROFITDE Modifier: PROFITDE 7 <+> Time Out 7 <*> Procedure Hammer Toe Repair(Right), Neuroma Excision Soft Tissue 01/28/21 12:40:44 Administrative Office Assistant: PROFITDE Modifier: PROFITDE <+> 8 Case Attendee <+> 8 Role Performed <+> 8 Time In <+> 8 Procedure <+> 9 Case Attendee <+> 9 Role Performed <+> 9 Time In <+> 9 Procedure [facility] IntraOp Case Times Entry 1 Patient In Room Time 01/28/21 12:13:00 Out Room Time 01/28/21 13:18:00 Anesthesia Start Time 01/28/21 12:13:00 Stop Time 01/28/21 13:18:00 Anesthesia Ready 01/28/21 12:13:00 Surgery / Procedure Times Start Time 01/28/21 12:31:00 Stop Time 01/28/21 13:14:00 Last Modified By: Lisbeth Haas RN 01/28/21 13:18:07 [facility] IntraOp Case Times Audit 01/28/21 13:18:07 Administrative Office Assistant: PROFITDE Modifier: PROFITDE <+> 1 Out Room Time <+> 1 Stop Time <+> 1 Stop Time [facility] IntraOp Cautery Entry 1 ESU Identification Cautery Type Monopolar ESU ID Number [id number] ID Type Hospital Number Cautery Settings Cut Setting 30 Coag Setting 30 ESU Grounding Pad Ground Pad Type Adult Grounding Pad Site Right thigh Grounding Pad Lisbeth Haas RN Applied By Grounding Pad Site Warm, dry and intact Skin Condition Before Cautery Grounding Pad Site Unchanged Skin Condition After Cautery Last Modified By: Lisbeth Haas RN 01/28/21 12:43:00 [facility] IntraOp Communication Entry 1 Entry 2 Communication To Family/Significant other Family/Significant other Comment INFORMED OF START CLOSING Communication By JASMINE KEENE, JASMINE FRANKLIN, VIAN Date and Time 01/28/21 12:35:00 01/28/21 13:00:00 Last Modified By: Lisbeth Haas RN Proffitt, Debbie, RN 01/28/21 12:38:25 01/28/21 13:00:18 [facility] IntraOp Communication Audit 01/28/21 13:00:18 Administrative Office Assistant: PROFITDE Modifier: PROFITDE <+> 2 Communication By <+> 2 Date and Time <+> 2 Communication To <+> 2 Comment [facility] IntraOp Counts Verification Entry 1 Procedure Hammer Toe Repair(Right), Neuroma Excision Soft Tissue Count Info Count Type Sponge, Sharps, Miscellaneous Counts Verification Baseline/pre-procedure Sequence Count Results Not Applicable Counts Performed By Count Performed By OTHER, ATTENDEE #1 (Scrub) Count Performed By Joan De León RN (RN) Last Modified By: Lisbeth Haas RN 01/28/21 12:38:05 [facility] IntraOp Counts Final Entry 1 Entry 2 [...] Proffitt, Debbie, RN 01/28/21 12:41:55 01/28/21 13:00:02 [facility] IntraOp Counts Final Audit 01/28/21 13:00:02 Administrative Office Assistant: PROFITDE Modifier: PROFITDE <+> 2 Procedure <+> 2 Count Type <+> 2 Count Results <+> 2 Count Performed By (Scrub) <+> 2 Count Performed By (RN) <+> 2 Counts Verification Sequence [facility] IntraOp Cultures and Spec Summary Entry 1 Cultrures and Specimens Specimen Ordered: Yes Test(s) Routine/Path-Lab Requested/Final Disposition Last Modified By: Lisbeth Haas RN 01/28/21 12:42:03 [facility] IntraOp Departure from OR Entry 1 Integumentary Assessment Integumentary WDL with patient Assessment WDL specific variances Patient's Normal OPSITE Integumentary Variance(s) Transfer/Handoff Transfer to PACU Phase II Handoff Method Phone call Handoff Reported to VINOD LANDIN RN Post-op Transport Stretcher/Gurney Via Patient Transport JASMINE KEENE RN Accompanied by Last Modified By: Lisbeth Haas RN 01/28/21 13:12:31 [facility] IntraOp Departure from OR Audit 01/28/21 13:12:31 Administrative Office Assistant: PROFITDE Modifier: PROFITDE <+> 1 Handoff Reported to [facility] IntraOp Dressing and Packing Entry 1 Type Dressing Location OPSITE Wound Dressing Item 4x4's, Ronny, Kerlix/Regla, Adaptic Applied By NORMA FOSTER DPM-POD Other Comments BETADINE SOLUTION Last Modified By: Lisbeth Haas RN 01/28/21 13:09:21 [facility] IntraOp Dressing and Packing Audit 01/28/21 13:09:21 Administrative Office Assistant: PROFITDE Modifier: PROFITDE 1 <*> Wound Dressing Item 4x4's, Ronny, Kerlix/Regla, Adaptic, Steristrip 01/28/21 12:52:36 Administrative Office Assistant: PROFITDE Modifier: PROFITDE <+> 1 Location [facility] IntraOp Fire Risk Assessment Entry 1 Fire [...] Modified By: Lisbeth Haas RN 01/28/21 12:44:00 [facility] IntraOp General Case Center Receptionist 1 Case Information OR OR 04 [facility] Case Level 1 Room Verified Yes Wound Class I - Clean Specialty SN Podiatry Anesthesia Type MAC ASA Class 2 Diagnosis Preop Diagnosis HAMMERTOE RIGHT FOOT, PLANTAR PLATE TEAR AND [place]'S NEUROMA RIGHT FOOT Postop Same As Preop No Postop Diagnosis SEE SURGEON'S POSTOP NOTES Last Modified By: Lisbeth Haas RN 01/28/21 12:47:21 [facility] IntraOp General Case Data Audit 01/28/21 12:47:21 Administrative Office Assistant: PROFITDE Modifier: PROFITDE 1 <*> OR OR 06 [facility] 1 <+> ASA Class 1 <+> Anesthesia Type 1 <+> Postop Same As Preop 1 <+> Preop Diagnosis 1 <+> Postop Diagnosis 1 <+> Room Verified [facility] IntraOp Implant Log Entry 1 Type Implant (Synthetic) Implant Log Implant Type Hardware Implant CORTEZ HELMS [id number] Identification Description Implant Quantity 1 Implant Site OPSITE Implant Schmitz Med [employer]p:Schmitz Identification Med Tech Colorist Dyer Name: Implant [id number] Identification Catalog Number Implant Has an No Expiration Date Tissue Implant Last Modified By: Lisbeth Haas RN 01/28/21 13:10:36 [facility] IntraOp Implant Log Audit 01/28/21 13:10:36 Administrative Office Assistant: KELSIDE Modifier: PROFITDE 1 <*> Implant Identification Description CORTEZ HOG [id number] <+> Implant Has an Expiration Date [facility] IntraOp Intraoperative Assessment Entry 1 Handoff Method [...] Modified By: Lisbeth Haas RN 01/28/21 12:44:56 [facility] IntraOp Intraoperative Equipment Entry 1 Equipment Intraop Monitoring Electrocardiogram Five lead placement (ECG) Electrode Placement Blood Pressure Non-Invasive BP Device Source Blood Pressure Arm, right upper Location Pulse Oximeter Hand, left Probe Site Antiembolic Devices Scopes Photo/Video Documentation Last Modified By: Lisbeth Haas RN 01/28/21 12:47:46 [facility] IntraOp Medication Admin Entry 1 Medication/Irrigant MARTI IRR NACL 0.9PCT 2000ML [facility]-[id number] Route of IRRIGATION Administration Dose Dose 100 Unit of Measure ml Administered By NORMA FOSTER DPM-POD Procedure Irrigation Last Modified By: Lisbeth Haas RN 01/28/21 12:56:29 [facility] IntraOp Patient Positioning Entry 1 Procedure Hammer [...] Modified By: Lisbeth Haas RN 01/28/21 12:49:26 [facility] IntraOp Sign In Entry 1 Patient, Site, [...] Modified By: Lisbeth Haas RN 01/28/21 12:49:41 [facility] IntraOp Sign Out Entry 1 RN Confirmation [...] Modified By: Lisbeth Haas RN 01/28/21 13:18:15 [facility] IntraOp Skin Prep Entry 1 Procedure Hammer Toe Repair(Right), Neuroma Excision Soft Tissue Prescribed Yes Pre-Surgical Prep Completed Prep Area RIGHT FOOT Intraop Prep Integumentary WDL Assessment WDL Prep Agents Betadine scrub, Betadine solution Prep by Lisbeth Haas RN Hair Removal Methods No hair removal performed Last Modified By: Lisbeth Haas RN 01/28/21 12:50:10 [facility] IntraOp Surgical Procedures Entry 1 Entry 2 [...] Proffitt, Debbie, RN 01/28/21 13:18:08 01/28/21 13:18:08 [facility] IntraOp Surgical Procedures Audit 01/28/21 13:18:08 Administrative Office Assistant: PROFITDE Modifier: PROFITDE <+> 1 Stop <+> 2 Stop [facility] IntraOP Time Out Entry 1 Procedure to [...] Modified By: Lisbeth Haas RN 01/28/21 12:44:34 [facility] IntraOp Tourniquet Entry 1 Type Pneumatic Serial/Unit Number [id number] Setting 250 Pheumatic Yes Tourniquet Checked Per Protocol Size 18 inches Placement Ankle, right Skin Protection - Yes Padded Under Cuff Applied By Lisbeth Haas RN Removed By NORMA FOSTER DPM-POD Times Start Time 01/28/21 12:30:00 Stop Time 01/28/21 13:10:00 Total Time 40 calculated manually (Mins) Last Modified By: Lisbeth Haas RN 01/28/21 13:11:05 [facility] IntraOp Tourniquet Audit 01/28/21 13:11:05 Administrative Office Assistant: PROFITDE Modifier: PROFITDE <+> 1 Total Time [...] filedocumented in this encounter Care Teams Assistant Public Defender Relationship Specialty Start Date End Date Amalia Walter [address] [place] [address] PCP - General 04/09/24 documented as of this encounter
--- OUTSIDE RECORDS SUMMARY | 2025-06-27 14:52 | XMS_ITS | Encounter Summary ---
Author Organization [employer] ([place], [place], [place], [place]) Address [address] [place] [address] Care Team Providers Care Painter Aircraft Name Role Phone Amalia Walter Primary Care Provider [phone] Encounter Details Date Type Department Care Team (Late st Contact Info) Description 01/28/2021 Transcribed Document [facility] [place] [address] [place] [address] ProviderEmely MD [address], [place] [id number] Social History Tobacco Use Types Packs/Day Years [...] that pinch your toes. ??? Are a asl interpreter. ??? Have a second toe that is [...] Follow these instructions at home: ??? Take enhr-vsh-snbemdr and prescription medicines only as told by [...] provider. Document Revised: 10/12/2018 Document Reviewed: 02/22/2017 [employer] Patient Education ? 2020 [employer] General Anesthesia, Adult, Care After This [...] activities are safe for you. ??? Take zior-ymv-lmioliq and prescription medicines only as told by [...] provider. Document Revised: 11/02/2018 Document Reviewed: 06/15/2018 [employer] Patient Education ? 2020 [email or web address]. documented in this encounter Plan of Treatment Not on file documented as of this encounter Visit Diagnoses Not on filedocumented in this encounter Care Teams Painter Aircraft Relationship Specialty Start Date End Date Amalia aWlter [address] [place] [address] PCP - General 04/09/24 documented as of this encounter
--- OUTSIDE RECORDS SUMMARY | 2025-06-27 14:52 | XMS_ITS | Encounter Summary ---
Author Organization [email or web address] ([place], [place], [place], [place]) Address [address] [place] [address] Care Team Providers Care Hoop Bending Machine Operator Name Role Phone Amalia Walter Primary Care Provider [phone] Encounter Details Date Type Department Care Team (Late st Contact Info) Description 01/28/2021 Transcribed Document [facility] [place] [address] [place] [address] ProviderEmely MD [address] [id number] Social History Tobacco Use Types Packs/Day Years [...] on filedocumented in this encounter Care Teams Hoop Bending Machine Operator Relationship Specialty Start Date End Date Amalia Walter [address] [place] [address] PCP - General 04/09/24 documented as of this encounter
--- OUTSIDE RECORDS SUMMARY | 2025-06-27 14:52 | XMS_ITS | Encounter Summary ---
Author Organization [employer] ([place], [place], [place], [place]) Address [address] [place] [address] Care Team Providers Care Intern Brand Name Role Phone Amalia Walter Primary Care Provider Encounter Details Date Type Department Care Team (Late st Contact Info) Description 01/28/2021 Transcribed Document [facility] [place] [address] [place] [address] ProviderEmely MD [address] [place] [address] Social History Tobacco Use Types [...] Emely ProviderMD - 01/28/2021 12:31 PM CDT [facility] Main OR Preop Summary Primary Physician: NORMA FOSTER DPM-POD Finalized Date/Time: 01/28/21 13:40:47 Pt. Name: ZEHRA SHEPHERD /Sex: 1965 Female Med Rec #: [id number] Physician: NORMA FOSTER DPM-POD Financial #: [id number] Pt. Type: O Room/Bed: Admit/Disch: 01/28/21 08:17:00 - Institution: [facility] PreOp Case Times Entry 1 In Preop 01/28/21 08:46:00 Ready for Holding n/a Room Patient Ready for 01/28/21 10:15:00 Surgery Patient Out of Preop 01/28/21 12:10:00 Patient Out of n/a Holding Room Last Modified By: DEB DANIELS RN 01/28/21 13:40:41 [facility] PreOp Case Times Audit 01/28/21 13:40:41 Weaver Apprentice: EARNESTDWIGHTJulio Cesar Modifier: MCGRANM <+> 1 Patient Out of Preop Finalized By: DEB DANIELS RN Document Signatures Signed By: DEB DANIELS RN 01/28/21 13:40 Electronically signed by Rebecca [facility] Conversion Smt Machine Operator Cerner at 02/28/2023 7:31 PM CDT documented in this encounter Plan of Treatment Not on file documented as of this encounter Visit Diagnoses Not on filedocumented in this encounter Care Teams Intern Brand Relationship Specialty Start Date End Date JakobSarah connorvishnuangi [address] [place] [address] PCP - General 04/09/24 documented as of this encounter
--- OUTSIDE RECORDS SUMMARY | 2025-06-27 14:52 | XMS_ITS | Encounter Summary ---
Author Organization [employer] ([place]) Address [address] [place] [address] Care Team Providers Care Side Panel Hanger Name Role Phone Amalia Walter Primary Care Provider [phone] Encounter Details Date Type Department Care Team (Late st Contact Info) Description 01/28/2021 Transcribed Document [facility] [place] [address] [place] [address] ProviderEmely MD [address], [place] [id number] Social History Tobacco Use Types Packs/Day Years [...] : 1965 SURGEON: Ramon Rivero DPM LOCATION: [facility]. MILK RECEIVER: None. PREOPERATIVE DIAGNOSES: 1. Plantar plate tear, [...] in the next 24 to 72 hours. /[id number] PIERO Ugarte/AQ / GUZMAN / MODL /[id number] documented in this encounter Plan of Treatment Not on file documented as of this encounter Visit Diagnoses Not on filedocumented in this encounter Care Teams Side Panel Hanger Relationship Specialty Start Date End Date Amalia Walter [address] [place] [address] PCP - General 04/09/24 documented as of this encounter
--- OUTSIDE RECORDS SUMMARY | 2025-06-27 14:53 | XMS_ITS | Clinical Summary ---
Author Organization [facility] Address [address] [place] [address] Care Team Providers Care Bleach Packer Name Role Phone Amalia Walter APRN Primary Care Provider [phone] Allergies Active Allergy Reactions Criticality Noted Date [...] Active Continuous Glucose Sensor (Dexcom G7 Sensor) [facility] USE DIRECTED 4 Active cyclobenzaprine (Flexeril) 5 [...] daily. 90 tablet 4 5 06/03/20 25 Immunizations Immunization Administration Dates Next Due Hep [...] 9:40 AM EST Office Visit [facility] [address] [place] [address] Kristyn Gusman, FARMER CASH GRAIN [address] [facility] [address] [place] [address] 03/06/2026 8:45 AM EDT Office Visit Obstetrics & Gynecology [address] [place] [address] Pepito Rosales MD [address] [place] [address] Health Maintenance Due Date Last Done Comments [facility]-Diabetes: Hemoglobin A1C 1965 [facility]-HIV Screening 1965 [facility]-Hepatitis C Screening 1965 [facility]-/Child/Adol SDOH Screenings 1965 [id number]-27 Vaccine (#1) 1969 Diabetes: Dental Exam 1974 [...] 3:49 PM EDT from Last 3 Months or Most Recently Relevant to Health Maintenance Results * Mammography Breast Screening Tomosynthesis Bilateral (03/07/2025 3:49 PM EDT) Anatomical Region Laterality Modality Breast Bilateral Mammography 03/07/2025 3:49 PM EDT Narrative 03/07/2025 4:18 [place] [address] Name: ZEHRA SHEPHERD Exam Date: 03/07/2025 : 1965 Age 59 years Gender: F Physician: PEPITO ROSALES Facility: [facility] Facility HSV: Outpatient Exam: TITUS SCRN MAMMO [...] Easton Orellana MD 03/07/2025 04:15 PM EDT Dictated By: Easton Orellana Transcribed By: Transcribed On: 03/07/2025 4:06 PM Electronically signed by: Easton Orellana 03/07/2025 Thank you for referring ZEHRA SHEPHERD to [facility]. Legally authenticated by [facility] 2025-03-07 16:06:10 Procedure Note Provider, Generic [place] - 03/07/2025 [place] [address] Name: ZEHRA SHEPHERD Exam Date: 03/07/2025 : 1965 Age 59 years Gender: F Physician: PEPITO ROSALES Facility: [facility] Facility HSV: Outpatient Exam: TITUS SCRN MAMMO [...] Thank you for referring ZEHRA SHEPHERD to [facility]. Legally authenticated by [facility] 2025-03-07 16:06:10 us Pepito Rosales MD IMG BI PROCEDURES Final Result from Last 3 Months or Most Recently Relevant to Health Maintenance Insurance [facility] Care Teams Bleach Packer Relationship Specialty Start Date End Date Amalia Walter APRN [address] [place] [address] PCP - General 09/17/24
--- OUTSIDE RECORDS SUMMARY | 2025-06-27 14:53 | XMS_ITS | Encounter Summary ---
Author Organization [employer] ([place], [place], [place], [place]) Address [address] [place] [address] Care Team Providers Care Calf Skinner Name Role Phone Amalia Walter Primary Care Provider [phone] Encounter Details Date Type Department Care Team (Late st Contact Info) Description 01/28/2021 Transcribed Document [facility] [place] [address] [place] [address] ProviderEmely MD [address] [place] [address] Social History Tobacco Use Types [...] Emely ProviderMD - 01/28/2021 12:31 PM CDT [facility] Main OR PostOp Summary Primary Physician: NORMA FOSTER DPM-POD Finalized Date/Time: 01/28/21 16:01:28 Pt. Name: ZEHRA SHEPHERD /Sex: 1965 Female Med Rec #: [id number] Physician: NORMA FOSTER DPM-POD Financial #: [id number] Pt. Type: O Room/Bed: Admit/Disch: 01/28/21 08:17:00 - Institution: [facility] Main OR PostOp Case Times Entry 1 [...] Unfinalizing Freetext Reason for Unfinalizing 01/28/21 16:01 [id number] Modify Pick List Electronically signed by [facility] Conversion Opal Polisher Cerner at 02/28/2023 7:34 PM CDT documented in this encounter Plan of Treatment Not on file documented as of this encounter Visit Diagnoses Not on filedocumented in this encounter Care Teams Calf Skinner Relationship Specialty Start Date End Date Amalia Walter [address] [place] [address] PCP - General 04/09/24 documented as of this encounter
--- OUTSIDE RECORDS SUMMARY | 2025-06-27 14:53 | XMS_ITS | Encounter Summary ---
Author Organization [facility] Address [address] [place] [address] Phone [email or web address] Care Team Providers Care Image Consultant Name Role Phone No, Provider Primary Care Provider Unavailabl e Encounter Details Date Type Department Care Team (Late st Contact Info) Description 06/03/[address] [place] [address] Deepthi Porter, KATHIA Social History Tobacco Use Types Packs/Day Years [...] as of this encounter Miscellaneous Notes * Telephone Encounter - KATHIA Bardales - 06/03/2025 4:30 PM EDT Zehra Shepherd calls clinic to discuss return to work after personal medical leave of absence for R foot 2nd digit amputated. WD ID: [id number] Employer: [employer]: [id number] Shift: 1 Full-time GL and #: Edmar Randhawa Previous/current indefinite restrictions? 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 Released full duty for 06/16/25 If WMLOA, still getting compensation from work comp? No: [employer] If WMLOA, treatment for any personal medical condition during leave? No If PMLOA, work-related injury immediately before leave? No Same day occ or personal follow up scheduled? No Reviewed and/or scheduled for WC/WH? No Request sent to confirm cost center? No Deepthi Porter, KATHIA documented in this encounter Plan of Treatment Not on file documented as of this encounter Visit Diagnoses Not on filedocumented in this encounter Care Teams Image Consultant Relationship Specialty Start Date End Date No, Provider VICTOR MANUEL Nixon PCP - General Family Medicine 09/23/19 documented as of this encounter
--- OUTSIDE RECORDS SUMMARY | 2025-06-27 14:53 | XMS_ITS | Clinical Summary ---
Author Organization [employer] ([place], [place], [place], [place]) Address [address] [place] [address] Care Team Providers Care Drafter (Cad) Electrical Name Role Phone Amalia Walter Primary Care Provider [phone] Allergies Active Allergy Reactions Criticality Noted Date [...] Date Tien rded Speak language other than Ivorian at home Not on file 03/12/2024 Want [...] Completed 01/12/2021, Medical Devices Implanted Type Area Schedule Supervisor Device Identifier Shelf Expiration Date Model / Serial / Lot Psn Keel Spkd 0 Sz F Oss L [id number]- 01 - [id number] Implanted:Qt y: 1 on 04/17/2024 at [facility] TOTAL JOINT CONSTRUCT Left: Knee RUPERT:RUPERT [id number] 07/07/2033 42-5350-0 75-01 / / [id number] Psn Fem Cr Pps Cocr Nrw Sz9 L 78-7854-120- 01 - [id number] Implanted:Qt y: 1 on 04/17/2024 at [facility] TOTAL JO[employer]STRU[employer] Left: Knee RUPERT:RUPERT [id number] 02/14/2033 42-5080-0 66-01 / / [id number] Psn Art Surf 10mm 8-11/E-F Lt 46-8829-866- 10 - [id number] Implanted:Qt y: 1 on 04/17/2024 at [facility] TOTAL JO[employer]STRU[employer] Left: Knee RUPERT:RUPERT [id number] 12/20/2028 42-5121-0 08-10 / / [id number] Procedures Procedure Name Priority Date/Time Associated Diagnosis Comments HEMOGLOBIN A1C Routine 04/09/2024 2:56 PM EDT Preop testing from Last 3 Months or Most Recently Relevant to Health Maintenance Results * Hemoglobin A1c (04/09/2024 2:56 PM EDT) Hemoglobin A1C 6.5 % 04/09/2024 6:57 PM EDT [facility] Comment: Hemoglobin A1C levels are related to mean glucose during the preceding 2-3 months. Less than 7% demonstrates glycemic control in diabetic patients. Hemoglobin AlC % Suggested Diagnosis > or = 6.5 Diabetic 5.7 - 6.4 Prediabetic <5.7 Non-diabetic eAVG Glucose 139.85 mg/dL 04/09/2024 6:57 PM EDT [facility] Blood Venipuncture / Unknown 04/09/2024 2:56 PM EDT 04/09/2024 4:30 PM EDT Nicholas Castro MD LAB BLOOD ORDERABLES Final Result [facility] [address] [id number] [phone] from Last 3 Months or Most Recently Relevant to Health Maintenance Insurance BLUE CROSS/BLUE SHIELD Advance Directives For more information, please contact: [phone] * Full Code (Latest Code Status on File) Date Activated Date Inactivated Comments 04/17/2024 1:15 PM 04/18/2024 2:19 PM * Full Code Date Activated Date Inactivated Comments 04/17/2024 7:55 AM 04/17/2024 1:15 PM Care Teams Drafter (Cad) Electrical Relationship Specialty Start Date End Date Amalia Walter [address] [place] [address] (work) PCP - General 04/09/24
--- OUTSIDE RECORDS SUMMARY | 2025-06-27 14:53 | XMS_ITS | Encounter Summary ---
Author Organization [employer] ([place], [place], [place], [place]) Address [address] [place] [address] Care Team Providers Care Food Preparation Kitchen Aide Name Role Phone Amalia Walter Primary Care Provider [phone] Encounter Details Date Type Department Care Team (Late st Contact Info) Description 01/28/2021 Transcribed Document [facility] [place] [address] [place] [address] ProviderEmely MD [address] [place] [address] Social History Tobacco Use Types [...] 1965 Associated Diagnoses: None Author: RANDA LEACH, DRAFTING SUPERVISOR Chief Complaint R foot pain Review of [...] painful ROM R foot. Integumentary: Warm, Dry, Interior. Neurologic: Alert, Oriented. Psychiatric: Cooperative, Appropriate mood & affect. Review / Management Results review: No qualifying data available , Lab results 01/28/2021 8:54 EDT Device Comment 1 Device Comment 1 Glucose POC2 135 mg/dL HI . Impression and Plan Condition: Stable. Electronically signed by Franco Fernandez Conversion Instructor Product Inspection Cerner at 02/28/2023 7:39 PM CDT documented in this encounter Plan of Treatment Not on file documented as of this encounter Visit Diagnoses Not on filedocumented in this encounter Care Teams Food Preparation Kitchen Aide Relationship Specialty Start Date End Date mayrageeta Amalia [address] [place] [address] PCP - General 04/09/24 documented as of this encounter
--- OUTSIDE RECORDS SUMMARY | 2025-06-27 14:53 | XMS_ITS | Referral Summary ---
Author Organization [employer] ([place], [place], [place], [place]) Address [address] [place] [address] Care Team Providers Care Campus Wellness Coordinator Name Role Phone Amalia Walter Primary Care Provider [phone] Allergies Active Allergy Reactions Criticality Noted Date [...] Date Tien rded Speak language other than [place] Citizen at home Not on file 03/12/2024 Want [...] on file Medical Devices Implanted Type Area Group Contract Analyst Device Identifier Shelf Expiration Date Model / Serial / Lot Psn Lizzy Spkd 0 Sz F Oss L [id number] 01 - [id number] Implanted:Qt y: 1 on 04/17/2024 at [facility] TOTAL JOINT CONSTRUCT Left: Knee RUPERT:RUPERT [id number] 07/07/2033 42-5350-0 75-01 / / [id number] Psn Fem Cr Pps Cocr Nrw Sz9 L 31-6989-518- 01 - [id number] Implanted:Qt y: 1 on 04/17/2024 at [facility] TOTAL JOINT CONSTRUCT Left: Knee RUPERT:RUPERT [place] [id number] 02/14/2033 42-5080-0 66- [id number] Psn Art Surf 10mm 8-/E-F Lt 65-4318-179- 10 - [id number] Implanted:Qt y: 1 on 04/17/2024 at [facility] TOTAL JOINT CONSTRUCT Left: Knee RUPERT:RUPERT [place] [id number] 12/20/2028 42-5121-0 06-22 [id number] Procedures Procedure Name Priority Date/Time Associated Diagnosis Comments HEMOGLOBIN A1C Routine 04/09/2024 2:56 PM EDT Preop testing from Last 3 Months or Most Recently Relevant to Health Maintenance Results * Hemoglobin A1c (04/09/2024 2:56 PM EDT) Hemoglobin A1C 6.5 % 04/09/2024 6:57 PM EDT [facility] Comment: Hemoglobin A1C levels are related to mean glucose during the preceding 2-3 months. Less than 7% demonstrates glycemic control in diabetic patients. Hemoglobin AlC % Suggested Diagnosis > or = 6.5 Diabetic 5.7 - 6.4 Prediabetic <5.7 Non-diabetic eAVG Glucose 139.85 mg/dL 04/09/2024 6:57 PM EDT [facility] Blood Venipuncture / Unknown 04/09/2024 2:56 PM EDT 04/09/2024 4:30 PM EDT Nicholas Castro MD LAB BLOOD ORDERABLES Final Result [facility] [address] [phone] from Last 3 Months or Most Recently Relevant to Health Maintenance Insurance BLUE CROSS/BLUE SHIELD Advance Directives For more information, please contact: [phone] * Full Code (Latest Code Status on File) Date Activated Date Inactivated Comments 04/17/2024 1:15 PM 04/18/2024 2:19 PM * Full Code Date Activated Date Inactivated Comments 04/17/2024 7:55 AM 04/17/2024 1:15 PM Care Teams Campus Wellness Coordinator Relationship Specialty Start Date End Date Amalia Walter [address] [place] [address] PCP - General 04/09/24
--- OUTSIDE RECORDS SUMMARY | 2025-06-27 14:53 | XMS_ITS | Encounter Summary ---
Author Organization [employer] ([place], [place], [place], [place]) Address [address] [place] [address] Care Team Providers Care Booster Plant Operator Name Role Phone Amalia Walter Primary Care Provider [phone] Encounter Details Date Type Department Care Team (Late st Contact Info) Description 01/28/2021 Transcribed Document [facility] [place] [address] [place] [address] ProviderEmely MD [address] [place] [address] Social History Tobacco Use Types [...] Anesthesiologist Procedure Case Attendee Role 2 : stereoptic projection topographer Case Attendee 2 : GUILLE Zhu RN Procedure Case Attendee Role 3 : stereoptic projection topographer Case Attendee 3 : DEB DANIELS RN [...] DEB DANIELS RN - 01/28/2021 10:28 EDT documented in this encounter Plan of Treatment Not on file documented as of this encounter Visit Diagnoses Not on filedocumented in this encounter Care Teams Booster Plant Operator Relationship Specialty Start Date End Date Amalia Walter [address] [place] [address] PCP - General 04/09/24 documented as of this encounter
--- OUTSIDE RECORDS SUMMARY | 2025-06-27 14:53 | XMS_ITS | Encounter Summary ---
Author Organization [employer] ([place], [place], [place], [place]) Address [address] [place] [address] Care Team Providers Care Machine Shop Inspector Name Role Phone Amalia Walter Primary Care Provider [phone] Encounter Details Date Type Department Care Team (Late st Contact Info) Description 01/28/2021 Transcribed Document [facility] [place] Family Medicine [address] [place] [address] ProviderEmely MD [address] [place] [address] Social History Tobacco Use Types [...] Adams MD - 01/28/2021 2:29 PM CDT [facility] [place] [address] ZEHRA ESPINO :1965 Visit Time:01/28/2021 What to do next [...] for as needed for pain Pickup at [facility] 6920 ascorbic acid (Vitamin C) 1,000 Milligram(s) Oral [...] 50 Milligram(s) Oral Every Day Pharmacy Information [facility] 7259: [address] [facility] [address] [place], [place] [id number] [phone] Take your medications faithfully. Do NOT skip [...] that pinch your toes. ??? 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 ??? Have a second toe that is [...] Follow these instructions at home: ??? Take yrbe-wqc-fysoqmc and prescription medicines only as told by [...] provider. Document Revised: 10/12/2018 Document Reviewed: 02/22/2017 [employer] Patient Education ?? 2020 [employer] General Anesthesia, Adult, Care After This [...] activities are safe for you. ??? Take gcxa-rlf-ypnvunt and prescription medicines only as told by [...] provider. Document Revised: 11/02/2018 Document Reviewed: 06/15/2018 [employer] Patient Education ?? 2020 [employer]. Emergency Awareness and Preventative Care STROKE is [...] Assistance with quitting is available by contacting 0-273-QVAK-NOW. This is a free resource providing counseling, [...] was given the opportunity to ask questions. Patient/Sed Special Education Teacher Name: Patient/Sed Special Education Teacher Signature: Relationship to Patient: Clinician/Hospital Sed Special Education Teacher Signature: Date: documented in this encounter Plan of Treatment Not on file documented as of this encounter Visit Diagnoses Not on filedocumented in this encounter Care Teams Machine Shop Inspector Relationship Specialty Start Date End Date Amalia Walter [address] [place] [address] PCP - General 04/09/24 documented as of this encounter
--- OUTSIDE RECORDS SUMMARY | 2025-06-27 14:53 | XMS_ITS | Encounter Summary ---
Author Organization [facility] Address [address] [place] [address] Care Team Providers Care Orthotic/Prosthetic Clinician Name Role Phone Amalia Walter CLIENT TECHNICAL SPECIALIST Primary Care Provider [phone] Encounter Details Date Type Department Care Team (Late st Contact Info) Description 03/07/2025 Results Follow-Up Obstetrics & Gynecology [address] [place] [address] Pepito Rosales MD [address] [place] [address] Social History Tobacco Use Types [...] [facility] [address] [place] [address] Kristyn Gusman, CLIENT TECHNICAL SPECIALIST [address] [facility] [address] [place] [address] 03/06/2026 8:45 AM EDT Office Visit Obstetrics & Gynecology [address] [place] [address] Pepito Rosales MD [address] [place] [address] documented as of this encounter [...] documented as of this encounter Care Teams Orthotic/Prosthetic Clinician Relationship Specialty Start Date End Date Amalia Walter APRN [address] [place] [address] PCP - General 09/17/24 documented as of this encounter
--- OUTSIDE RECORDS SUMMARY | 2025-06-27 14:53 | XMS_ITS | Encounter Summary ---
Author Organization [employer] ([place], [place], [place], [place]) Address [address] [place] [address] Care Team Providers Care Pipe Cutter Name Role Phone Amalia Walter Primary Care Provider [phone] Encounter Details Date Type Department Care Team (Late st Contact Info) Description 01/28/2021 Transcribed Document [facility] [place] [address] [place] [address] ProviderEmely MD [address] [place] [id number] Social History Tobacco Use Types Packs/Day Years [...] Source : Measured Height Entry Format : [place] Height, Feet : 5 ft(Converted to: 152 cm, 60 Inch) Height, Inches : 9 Inch(Converted to: 0 ft 9 Inch, 22.86 cm) Clinical Height : 175.26 cm Weight Source : Standing scale Weight Entry Format : [place] Clinical Dosing Weight : 96.36 kg Weight, Pounds : 212 lb Body Surface Area (BSA) : 2.12 m2 Body Mass Index : 31.4 kg/m2 (HI) [place]ie Body Weight : 66 kg DEB DANIELS RN - 01/28/2021 9:50 EDT Health Histories Smoking Status : Former smoker, quit more than 30 days ago Smokeless Tobacco Status : Never Implant/Device Type, Sisal Operator and Model : dental implants DEB DANIELS [...] DEB DANIELS RN - 01/28/2021 9:50 EDT [place] Suicide Severity Rating Scale (C-SSRS) CSSRS Past [...] Obtained From : Patient Primary Language : Algerian Communication Barrier : None Knitter Wire Mesh Needed : DEB Aguirre RN - 01/28/2021 [...] on filedocumented in this encounter Care Teams Pipe Cutter Relationship Specialty Start Date End Date Saba Amalia [address] [place] [address] PCP - General 04/09/24 documented as of this encounter
--- OUTSIDE RECORDS SUMMARY | 2025-06-27 14:53 | XMS_ITS | Clinical Summary ---
Author Organization [facility] Address [address] [place] [address] Phone Misbah [email or web address] Care Team Providers Care Clerical Assigner Name Role Phone No, Provider Primary Care [...] Continuous Blood Gluc Sensor (Dexcom G7 Sensor) [facility] [place] Acti ve Continuous Blood Gluc Forge Utility Worker (Dexcom G7 Forge Utility Worker) device Active rosuvastatin (CRESTOR) 10 MG tablet [...] skin 1 (one) time per week. Active valACYclovir (VALTREX) 500 MG tablet Take 500 mg by mouth in the morning and 500 mg in the evening. Active zinc gluconate 50 MG tablet Take 50 mg by mouth 1 (one) time each day. Active Active Problems Problem Noted Date Diagnosed Date History of arthroscopy of knee 06/27/2019 Biceps tendinitis 03/27/2019 Injury of tendon of rotator cuff 12/20/2018 Return to work evaluation 06/05/2018 Acquired trigger finger 10/01/2015 Overview (04/11/2018): Health examination of defined subpopulation 07/14 Overview (04/11/2018): Sprain of back 11/28/2007 Overview (04/11/2018): Encounters Date Type Department Care Team Description 06/13/2025 11:30 AM EDT Office Visit [facility] [address] [place] [address] Rasheeda Quinteros, KHOA Encounter for other administrative examinations (Primary Dx); S/P amputation of lesser toe, right (CMS/HCC); Hx of diabetes mellitus 06/03/2025 Telephone [facility] [address] [place] [address] Deepthi Porter EMT 04/21/2025 10:00 AM EDT Office Visit [facility] [address] [place] [address] Ruddy Castillo, OD [place] of [...] EDT Inhaled Oxygen Concentration - - Weight 83 kg (183 lb) 01/25/2024 3:56 PM EDT Height 175.3 cm (5' 9 ) 01/25/2024 3:56 PM EDT Body Mass Index 27.02 01/25/2024 3:56 PM EDT Plan of Treatment Health Maintenance Due Date Last Done Comments CT Colonography 1965 Cervical Cancer Screening Combo 1965 Colonoscopy 1965 Colorectal Cancer Screening Combo 1965 DNA Cologuard 1965 Dental Cleaning/Exam 1965 FIT or FOBT Test 1965 HIV Screening 1965 HPV / Cotest 1965 Hepatitis C Screening 1965 Pap Testing 1965 Sigmoidoscopy 1965 Covid-19 Immunization (#1) 1969 Annual Preventive Exam 1982 Hep B Infection Screening - Triple Screen 1982 Tetanus Diphtheria and Pertussis Immunization (1 - Tdap) 1983 Influenza Immunization (#1) 07/14/202509/13, 08/10/2020, 07/30/2019, Additional history exists Breast Cancer Screening 03/07/2027 03/07/2025, 03/07 Hepatitis A Immunization Aged Out 019, 08/28/2018, 07/27/2018 No longer eligible based on patient's age to complete this topic Hepatitis B Immunization Completed 019, 08/28/2018, 07/27/2018 [...] patient's age to complete this topic Insurance [facility] Care Teams Clerical Assigner Relationship Specialty Start Date End Date No, Provider [place] PCP - General Family Medicine 09/23/19
--- OUTSIDE RECORDS SUMMARY | 2025-06-27 14:53 | XMS_ITS | Encounter Summary ---
Author Organization [facility] Address [address] [place] [address] Phone Misbah [email or web address] Care Team Providers Care Senior Analytical Chemist Name Role Phone No, Provider Primary Care Provider Unavailabl e Encounter Details Date Type Department Care Team (Late st Contact Info) Description 09/18/2018 Ancillary Orders [address] [place] [address] Qing Godoy PA [address] [place] [address] Acute pain of right shoulder [...] shoulder documented in this encounter Care Teams Senior Analytical Chemist Relationship Specialty Start Date End Date No, Provider VICTOR MANUEL Nixon PCP - General Family Medicine 09/23/19 documented as of this encounter
--- OUTSIDE RECORDS SUMMARY | 2025-06-27 14:53 | XMS_ITS | Encounter Summary ---
Author Organization [facility] Address [address] [place] [address] Care Team Providers Care Division Sales Manager Name Role Phone Amalia Walter ORACLE DATABASE MANAGER Primary Care Provider [phone] Encounter Details Date Type Department Care Team (Late Contact Info) Description 03/07/2025 Outside Procedure External Location [address] [place] [address] Pepito Rosales MD [address] [place] [address] Social History Tobacco Use Types [...] Description 11/21/2025 9:40 AM EST Office Visit [facility] [address] [place] [address] Kristyn Gusman, ORACLE DATABASE MANAGER [address] [address] 03/06/2026 8:45 AM EDT Office Visit Obstetrics & Gynecology [address] [place] [address] Pepito Rosales MD [address] [place] [address] documented as of this encounter Procedures Procedure Name Priority Date/Time Associated Diagnosis Comments MAMMOGRAPHY BREAST SCREENING TOMOSYNTHESIS BILATERAL 03/07/2025 3:49 PM EDT documented in this encounter Results * Mammography Breast Screening Tomosynthesis Bilateral (03/07/2025 3:49 PM EDT) Anatomical Region Laterality Modality Breast Bilateral Mammography 03/07/2025 3:49 PM EDT Narrative 03/07/2025 4:18 PM EDT [facility] [address] [place] [address] Name: ZEHRA SHEPHERD Exam Date: 03/07/2025 : 1965 Age 59 years Gender: F Physician: PEPITO ROSALES Facility: [facility] Facility HSV: Outpatient Exam: TITUS SCRN [...] Orellana 03/07/2025 Thank you for referring ZEHRA SHEHPERD to [facility]. Legally authenticated by [facility]ORRAINE CHILDS 2025-03-07 16:06:10 Procedure Note Provider, [facility] [place] - 03/07/2025 [place] [address] Name: ZEHRA SHEPHERD Exam Date: 03/07/2025 : 1965 Age 59 years Gender: F Physician: PEPITO ROSALES Facility: [facility] Facility HSV: Outpatient Exam: TITUS SCRN [...] Thank you for referring ZEHRA SHEPHERD to [facility]. Legally authenticated by LORRAINE CHILDS 2025-03-07 [...] documented as of this encounter Care Teams Division Sales Manager Relationship Specialty Start Date End Date Amalia Walter APRN [address] [place], [place] [address] PCP - General 09/17/24 documented as of this encounter
--- NOTE | 2025-06-27 14:57 | XR_ITS ---
FINAL REPORT CLINICAL HISTORY: lt hip pain, fall FINDINGS: Left hip THREE VIEW FINDINGS: Three views show no evidence of an acute, displaced fracture or dislocation of the visualized bony architecture. Mild degenerative joint disease is present. IMPRESSION: Degenerative changes. No acute bony abnormality . Authenticated and ERN
--- NOTE | 2025-06-27 14:57 | XR_ITS ---
FINAL REPORT CLINICAL HISTORY: HEMATOMA ABOVE LT BREAST, FALL FINDINGS: LEFT RIB SERIES FINDINGS: 4 views of the left ribs show no fractures. There is no pneumothorax or pleural fluid collection. Frontal chest radiograph is unremarkable. IMPRESSION: Negative left rib series. Authenticated and ERN
--- NOTE | 2025-06-27 15:05 | US_ITS ---
PROCEDURE INFORMATION: Exam: US Left Breast, Complete Exam date and time: 06/27/2025 3:13 PM Age: 59 years old Clinical indication: Injury or trauma. Hematoma above left breast. TECHNIQUE: Imaging protocol: Complete ultrasound of all four quadrants of the left breast and the retroareolar regions, including ultrasound of the axilla when performed. COMPARISON: No relevant prior studies available. FINDINGS: ULTRASOUND: Breast ultrasound findings: Targeted left sonography demonstrates two similar superficial oval somewhat hyperechoic masses with more anechoic centered, avascular, likely reflecting hematomas, given history, at 8 o'clock 8 cm from the nipple measuring 0.9 x 1.1 x 0.4 cm and at 10 o'clock 6 cm from the nipple measuring 1.0 x 0.8 x 0.5 cm. IMPRESSION: See comment History of hematoma above the left breast and trauma - two probable 1 cm hematomas at 8 and 10 o'clock, correlate clinically and suggest short-term follow-up sonography in about 4 weeks, unless otherwise clinically indicated. Also, no mammogram indicated on the timeline, as advise bilateral mammography. ASSESSMENT: BI-RADS Category 3: Probably benign.
== END 2025-06-27 23:59 | disposition home or self-care (01) ==
LOC: RAD 14:51
PROVIDERS: PCP Nurse Practitioner Family; Visit Provider Nurse Practitioner Family
DX: M16.12 Unilateral primary osteoarthritis, left hip (principal); N63.24 Unspecified lump in the left breast, lower inner quadrant; N63.22 Unspecified lump in the left breast, upper inner quadrant; S20.02XA Contusion of left breast, initial encounter; T14.8XXA Other injury of unspecified body region, initial encounter; W19.XXXA Unspecified fall, initial encounter
CPT/HCPCS: 71101; 73502; 76641

== ENCOUNTER 2025-08-28 15:02 | Outpatient (CLI) | payer BC, SELFPAY ==
--- OUTSIDE RECORDS SUMMARY | 2025-08-28 15:06 | XMS_ITS | Encounter Summary ---
Author Organization [employer] ([place], [place], [place], [place]) Address [address] [place] [address] Care Team Providers Care Cash Sales Audit Clerk Name Role Phone Amalia Walter Primary Care Provider [phone] Encounter Details Date Type Department Care Team (Late st Contact Info) Description 01/28/2021 Transcribed Document [facility] [place] [address] [place] [address] ProviderEmely MD [address] [place] [address] Social History Tobacco Use Types [...] Emely ProviderMD - 01/28/2021 12:31 PM CDT [facility] Main OR IntraOp Summary Primary Physician: NORMA FOSTER DPM-POD Finalized Date/Time: 02/01/21 11:07:37 Pt. Name: ZEHRA ESPINO /Sex: 1965 Female Med Rec #: [id number] Physician: NORMA FOSTER DPM-POD Financial #: [id number] Pt. Type: O Room/Bed: Admit/Disch: 01/28/21 08:17:00 - 01/28/21 14:43:00 Institution: [facility] IntraOp Case Attendance Entry 1 Entry 2 Entry 3 Case Attendee NORMA FOSTER DPM-Lisbeth Puckett, JASMINE FRANKLIN RN Role Performed Surgeon/Proceduralist, Shook Machine Operator, First Shook Machine Operator, Second First Time In 01/28/21 12:13:00 01/28/21 [...] Attendee IN FOR SET-UP [facility] Superficial Wound Closed By: Last Modified By: Lisbeth Haas RN Proffitt, Debbie, RN Proffitt, Debbie, RN 01/28/21 13:18:17 01/28/21 13:18:17 01/28/21 13:18:17 Entry 7 Entry 8 Entry 9 Case Attendee OTHER, ATTENDEE #3 TAE TYLER, ANSHUL-ANS YUSRA DOSHI MD-ANS Role Performed Vendor SPLUNK DEVELOPER/Nurse Medical Services Coordinator Anesthesiologist of Record Time In 01/28/21 12:13:00 01/28/21 12:13:00 01/28/21 12:13:00 Time Out 01/28/21 13:01:00 01/28/21 13:18:00 01/28/21 13:18:00 Procedure Hammer Toe Hammer Toe Hammer Toe Repair(Right), Neuroma Repair(Right), Neuroma Repair(Right), Neuroma Excision Soft Tissue Excision Soft Tissue Excision Soft Tissue Other Attendee [facility] Superficial Wound Closed By: Last Modified By: Lisbeth Haas, Lisbeth Lynch, Lisbeth Lynch RN 01/28/21 13:18:17 01/28/21 13:18:17 01/28/21 13:18:17 [facility] IntraOp Case Attendance Audit 01/28/21 13:18:30 Personnel Security Assistant: PROFITDE Modifier: PROFITDE <+> 1 Procedure 01/28/21 13:18:17 Personnel Security Assistant: PROFITDE Modifier: PROFITDE <+> 1 Time [...] Repair(Right), Neuroma Excision Soft Tissue 01/28/21 13:02:00 Personnel Security Assistant: PROFITDE Modifier: PROFITDE 7 <+> Time Out 7 <*> Procedure Hammer Toe Repair(Right), Neuroma Excision Soft Tissue 01/28/21 12:40:44 Personnel Security Assistant: PROFITDE Modifier: PROFITDE <+> 8 Case Attendee <+> 8 Role Performed <+> 8 Time In <+> 8 Procedure <+> 9 Case Attendee <+> 9 Role Performed <+> 9 Time In <+> 9 Procedure [facility] IntraOp Case Times Entry 1 Patient In Room Time 01/28/21 12:13:00 Out Room Time 01/28/21 13:18:00 Anesthesia Start Time 01/28/21 12:13:00 Stop Time 01/28/21 13:18:00 Anesthesia Ready 01/28/21 12:13:00 Surgery / Procedure Times Start Time 01/28/21 12:31:00 Stop Time 01/28/21 13:14:00 Last Modified By: Lisbeth Haas RN 01/28/21 13:18:07 [facility] IntraOp Case Times Audit 01/28/21 13:18:07 Personnel Security Assistant: PROFITDE Modifier: PROFITDE <+> 1 Out Room Time <+> 1 Stop Time <+> 1 Stop Time [facility] IntraOp Cautery Entry 1 ESU Identification Cautery Type Monopolar ESU ID Number [id number] ID Type Hospital Number Cautery Settings Cut Setting 30 Coag Setting 30 ESU Grounding Pad Ground Pad Type Adult Grounding Pad Site Right thigh Grounding Pad Lisbeth Haas RN Applied By Grounding Pad Site Warm, dry and intact Skin Condition Before Cautery Grounding Pad Site Unchanged Skin Condition After Cautery Last Modified By: Lisbeth Haas RN 01/28/21 12:43:00 [facility] IntraOp Communication Entry 1 Entry 2 Communication To Family/Significant other Family/Significant other Comment INFORMED OF START CLOSING Communication By JASMINE KEENE, JASMINE FRANKLIN, IVAN Date and Time 01/28/21 12:35:00 01/28/21 13:00:00 Last Modified By: Lisbeth Haas RN Proffitt, Debbie, RN 01/28/21 12:38:25 01/28/21 13:00:18 [facility] IntraOp Communication Audit 01/28/21 13:00:18 Personnel Security Assistant: PROFITDE Modifier: PROFITDE <+> 2 Communication By <+> 2 Date and Time <+> 2 Communication To <+> 2 Comment [facility] IntraOp Counts Verification Entry 1 Procedure Hammer Toe Repair(Right), Neuroma Excision Soft Tissue Count Info Count Type Sponge, Sharps, Miscellaneous Counts Verification Baseline/pre-procedure Sequence Count Results Not Applicable Counts Performed By Count Performed By OTHER, ATTENDEE #1 (Scrub) Count Performed By Joan De León RN (RN) Last Modified By: Lisbeth Haas RN 01/28/21 12:38:05 [facility] IntraOp Counts Final Entry 1 Entry 2 [...] Proffitt, Debbie, RN 01/28/21 12:41:55 01/28/21 13:00:02 [facility] IntraOp Counts Final Audit 01/28/21 13:00:02 Personnel Security Assistant: PROFITDE Modifier: PROFITDE <+> 2 Procedure <+> 2 Count Type <+> 2 Count Results <+> 2 Count Performed By (Scrub) <+> 2 Count Performed By (RN) <+> 2 Counts Verification Sequence [facility] IntraOp Cultures and Spec Summary Entry 1 Cultrures and Specimens Specimen Ordered: Yes Test(s) Routine/Path-Lab Requested/Final Disposition Last Modified By: Lisbeth Haas RN 01/28/21 12:42:03 [facility] IntraOp Departure from OR Entry 1 Integumentary Assessment Integumentary WDL with patient Assessment WDL specific variances Patient's Normal OPSITE Integumentary Variance(s) Transfer/Handoff Transfer to PACU Phase II Handoff Method Phone call Handoff Reported to VINOD LANDIN RN Post-op Transport Stretcher/Gurney Via Patient Transport JASMINE KEENE RN Accompanied by Last Modified By: Lisbeth Haas RN 01/28/21 13:12:31 [facility] IntraOp Departure from OR Audit 01/28/21 13:12:31 Personnel Security Assistant: PROFITDE Modifier: PROFITDE <+> 1 Handoff Reported to [facility] IntraOp Dressing and Packing Entry 1 Type Dressing Location OPSITE Wound Dressing Item 4x4's, Ronny, Kerlix/Regla, Adaptic Applied By NORMA FOSTER DPM-POD Other Comments BETADINE SOLUTION Last Modified By: Lisbeth Haas RN 01/28/21 13:09:21 [facility] IntraOp Dressing and Packing Audit 01/28/21 13:09:21 Personnel Security Assistant: PROFITDE Modifier: PROFITDE 1 <*> Wound Dressing Item 4x4's, Ronny, Kerlix/Regla, Adaptic, Steristrip 01/28/21 12:52:36 Personnel Security Assistant: PROFITDE Modifier: PROFITDE <+> 1 Location [facility] IntraOp Fire Risk Assessment Entry 1 Fire [...] Modified By: Lisbeth Haas RN 01/28/21 12:44:00 [facility] IntraOp General Case Sider Mechanic 1 Case Information OR OR 04 [facility] Case Level 1 Room Verified Yes Wound Class I - Clean Specialty SN Podiatry Anesthesia Type MAC ASA Class 2 Diagnosis Preop Diagnosis HAMMERTOE RIGHT FOOT, PLANTAR PLATE TEAR AND [place]'S NEUROMA RIGHT FOOT Postop Same As Preop No Postop Diagnosis SEE SURGEON'S POSTOP NOTES Last Modified By: Lisbeth Haas RN 01/28/21 12:47:21 [facility] IntraOp General Case Data Audit 01/28/21 12:47:21 Personnel Security Assistant: PROFITDE Modifier: PROFITDE 1 <*> OR OR 06 [facility] 1 <+> ASA Class 1 <+> Anesthesia Type 1 <+> Postop Same As Preop 1 <+> Preop Diagnosis 1 <+> Postop Diagnosis 1 <+> Room Verified [facility] IntraOp Implant Log Entry 1 Type Implant (Synthetic) Implant Log Implant Type Hardware Implant CORTEZ HELMS [id number] Identification Description Implant Quantity 1 Implant Site OPSITE Implant Schmitz Med Grp:Schmitz Identification Med Tech Qualitative Executive Researcher Name: Implant [id number] Identification Catalog Number Implant Has an No Expiration Date Tissue Implant Last Modified By: Lisbeth Haas RN 01/28/21 13:10:36 [facility] IntraOp Implant Log Audit 01/28/21 13:10:36 Personnel Security Assistant: KELSIDE Modifier: PROFITDE 1 <*> Implant Identification Description CORTEZ HOG [id number] <+> Implant Has an Expiration Date [facility] IntraOp Intraoperative Assessment Entry 1 Handoff Method [...] Modified By: Lisbeth Haas RN 01/28/21 12:44:56 [facility] IntraOp Intraoperative Equipment Entry 1 Equipment Intraop Monitoring Electrocardiogram Five lead placement (ECG) Electrode Placement Blood Pressure Non-Invasive BP Device Source Blood Pressure Arm, right upper Location Pulse Oximeter Hand, left Probe Site Antiembolic Devices Scopes Photo/Video Documentation Last Modified By: Lisbeth Haas RN 01/28/21 12:47:46 [facility] IntraOp Medication Admin Entry 1 Medication/Irrigant MARTI IRR NACL 0.9PCT 2000ML [facility]-603157 Route of IRRIGATION Administration Dose Dose 100 Unit of Measure ml Administered By NORMA FOSTER DPM-POD Procedure Irrigation Last Modified By: Lisbeth Haas RN 01/28/21 12:56:29 [facility] IntraOp Patient Positioning Entry 1 Procedure Hammer [...] Modified By: Lisbeth Haas RN 01/28/21 12:49:26 [facility] IntraOp Sign In Entry 1 Patient, Site, [...] Modified By: Lisbeth Haas RN 01/28/21 12:49:41 [facility] IntraOp Sign Out Entry 1 RN Confirmation [...] Modified By: Lisbeth Haas RN 01/28/21 13:18:15 [facility] IntraOp Skin Prep Entry 1 Procedure Hammer Toe Repair(Right), Neuroma Excision Soft Tissue Prescribed Yes Pre-Surgical Prep Completed Prep Area RIGHT FOOT Intraop Prep Integumentary WDL Assessment WDL Prep Agents Betadine scrub, Betadine solution Prep by Lisbeth Haas RN Hair Removal Methods No hair removal performed Last Modified By: Lisbeth Haas RN 01/28/21 12:50:10 [facility] IntraOp Surgical Procedures Entry 1 Entry 2 [...] Proffitt, Debbie, RN 01/28/21 13:18:08 01/28/21 13:18:08 [facility] IntraOp Surgical Procedures Audit 01/28/21 13:18:08 Personnel Security Assistant: PROFITDE Modifier: PROFITDE <+> 1 Stop <+> 2 Stop [facility] IntraOP Time Out Entry 1 Procedure to [...] Modified By: Lisbeth Haas RN 01/28/21 12:44:34 [facility] IntraOp Tourniquet Entry 1 Type Pneumatic Serial/Unit Number [id number] Setting 250 Pheumatic Yes Tourniquet Checked Per Protocol Size 18 inches Placement Ankle, right Skin Protection - Yes Padded Under Cuff Applied By Lisbeth Haas RN Removed By NORMA FOSTER DPM-POD Times Start Time 01/28/21 12:30:00 Stop Time 01/28/21 13:10:00 Total Time 40 calculated manually (Mins) Last Modified By: Lisbeth Haas RN 01/28/21 13:11:05 [facility] IntraOp Tourniquet Audit 01/28/21 13:11:05 Personnel Security Assistant: PROFITDE Modifier: PROFITDE <+> 1 Total [...] on filedocumented in this encounter Care Teams Cash Sales Audit Clerk Relationship Specialty Start Date End Date Amalia Walter [address] [place] [address] PCP - General 04/09/24 documented as of this encounter
--- OUTSIDE RECORDS SUMMARY | 2025-08-28 15:06 | XMS_ITS | Encounter Summary ---
Author Organization [employer] ([place], [place], [place], [place]) Address [address] [place] [address] Care Team Providers Care Cena Name Role Phone Amalia Walter Primary Care Provider [phone] Encounter Details Date Type Department Care Team (Late st Contact Info) Description 01/28/2021 Transcribed Document [facility] [place] [address] [place] [address] ProviderEmely MD [address], [place] [id number] Social History Tobacco Use Types Packs/Day Years [...] Anesthesiologist Procedure Case Attendee Role 2 : field checker Case Attendee 2 : GUILLE Zhu RN Procedure Case Attendee Role 3 : field checker Case Attendee 3 : DEB DANIELS RN [...] on filedocumented in this encounter Care Teams Cena Relationship Specialty Start Date End Date Amalia Walter [address] [place] [address] PCP - General 04/09/24 documented as of this encounter
--- OUTSIDE RECORDS SUMMARY | 2025-08-28 15:06 | XMS_ITS | Encounter Summary ---
Author Organization [employer] ([place], [place], [place], [place]) Address [address] [place] [address] Care Team Providers Care Buckle Assembler Name Role Phone Amalia Walter Primary Care Provider [phone] Encounter Details Date Type Department Care Team (Late st Contact Info) Description 01/28/2021 Transcribed Document [facility] [place] [address] [place] [address] ProviderEmely MD [address] [place] [address] Social History Tobacco Use Types [...] SHEPHERD /Sex: 1965 Female Med Rec #: [id number] Physician: NORMA FOSTER DPM-POD Financial #: [id number] Pt. Type: O Room/Bed: Admit/Disch: 01/28/21 08:17:00 [...] Unfinalizing Freetext Reason for Unfinalizing 01/28/21 16:01 [id number] Modify Pick List Electronically signed by Rebecca Cox [facility] Conversion Medical Transcription Supervisor Cerner at 02/28/2023 7:34 PM CDT documented in this encounter Plan of Treatment Not on file documented as of this encounter Visit Diagnoses Not on filedocumented in this encounter Care Teams Buckle Assembler Relationship Specialty Start Date End Date Amalia Walter [address] [place] [address] PCP - General 04/09/24 documented as of this encounter
--- OUTSIDE RECORDS SUMMARY | 2025-08-28 15:06 | XMS_ITS | Encounter Summary ---
Author Organization [employer] ([place], [place], [place], [place]) Address [address] [place] [address] Care Team Providers Care Labor Specialist Name Role Phone Amalia Walter Primary Care Provider [phone] Encounter Details Date Type Department Care Team (Late st Contact Info) Description 01/28/2021 Transcribed Document [facility] [place] [address] [place] [address] ProviderEmely MD [address] [place] [address] Social History Tobacco Use Types [...] Adams MD - 01/28/2021 2:29 PM CDT [facility] [address] ZEHRA ESPINO :1965 Visit Time:01/28/2021 What [...] for as needed for pain Pickup at [facility] 0748 ascorbic acid (Vitamin C) 1,000 Milligram(s) Oral [...] 50 Milligram(s) Oral Every Day Pharmacy Information [facility] 7259: [address] [facility] [address] [place], [place] [id number] [phone] Take your medications faithfully. Do NOT skip [...] that pinch your toes. ??? 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 ??? Have a second toe that is [...] Follow these instructions at home: ??? Take ovde-nuz-fhszhqx and prescription medicines only as told by [...] provider. Document Revised: 10/12/2018 Document Reviewed: 02/22/2017 [employer] Patient Education ?? 2020 [employer] General Anesthesia, Adult, Care After This [...] activities are safe for you. ??? Take dfue-cca-utfwgxe and prescription medicines only as told by [...] provider. Document Revised: 11/02/2018 Document Reviewed: 06/15/2018 [employer] Wellness Patient Education ?? 2020 [employer]. Emergency Awareness and Preventative Care STROKE is [...] Assistance with quitting is available by contacting 3-940-PFYS-NOW. This is a free resource providing counseling, [...] was given the opportunity to ask questions. Patient/Audio Visual Aide Name: Patient/Audio Visual Aide Signature: Relationship to Patient: Clinician/Hospital Audio Visual Aide Signature: Date: documented in this encounter Plan of Treatment Not on file documented as of this encounter Visit Diagnoses Not on filedocumented in this encounter Care Teams Labor Specialist Relationship Specialty Start Date End Date Amalia Walter [address] [place] [address] PCP - General 04/09/24 documented as of this encounter
--- OUTSIDE RECORDS SUMMARY | 2025-08-28 15:06 | XMS_ITS | Encounter Summary ---
Author Organization [employer] ([place], [place], [place], [place]) Address [address] [place] [address] Care Team Providers Care Weaver Hand Loom Name Role Phone Amalia Walter Primary Care Provider [phone] Encounter Details Date Type Department Care Team (Late st Contact Info) Description 01/28/2021 Transcribed Document [facility] [place] [address] [place] [address] ProviderEmely MD [address] [place], [place] [id number] Social History Tobacco Use Types Packs/Day Years [...] YUSRA GILBERT MD-ANS (Anesthesiologist of Record) YUSRA GIBLERT MD-ANS (Anesthesiologist of Record) W POPLITEAL BLOCK [...] on filedocumented in this encounter Care Teams Weaver Hand Loom Relationship Specialty Start Date End Date Amalia Walter [address] [place] [address] PCP - General 04/09/24 documented as of this encounter
--- OUTSIDE RECORDS SUMMARY | 2025-08-28 15:06 | XMS_ITS | Referral Summary ---
Author Organization [employer] ([place], [place], [place], [place]) Address [address] [place] [address] Care Team Providers Care Global Clinical Leader Name Role Phone Amalia Walter Primary Care Provider [phone] Allergies Active Allergy Reactions Criticality Noted Date [...] Date Tien rded Speak language other than Libyan at home Not on file 03/12/2024 Want [...] on file Medical Devices Implanted Type Area [employer] Manager Device Identifier Shelf Expiration Date Model / Serial / Lot Psn Lizzy Spkd 0 Sz F Oss L [id number]- 01 - [id number] Implanted:Qt y: 1 on 04/17/2024 at [facility] TOTAL JOINT CONSTRUCT Left: Knee RUPERT:RUPERT [id number] 07/07/2033 42-5350-0 75-01 / / [id number] Psn Fem Cr Pps Cocr Nrw Sz9 L [id number]- 01 - [id number] Implanted:Qt y: 1 on 04/17/2024 at [facility] TOTAL JOINT CONSTRUCT Left: Knee RUPERT:RUPERT US [id number] 02/14/2033 42-5080-0 66- [id number] Psn Art Surf 10mm 8-/E-F Lt [id number] 10 - [id number] Implanted:Qt y: 1 on 04/17/2024 at [facility] TOTAL JOINT CONSTRUCT Left: Knee RUPERT:RUPERT US [id number] 12/20/2028 [id number] 06-22 [id number] Procedures Procedure Name Priority Date/Time Associated Diagnosis Comments HEMOGLOBIN A1C Routine 04/09/2024 2:56 PM EDT Preop testing from Last 3 Months or Most Recently Relevant to Health Maintenance Results * Hemoglobin A1c (04/09/2024 2:56 PM EDT) Hemoglobin A1C 6.5 % 04/09/2024 6:57 PM EDT [facility] Comment: Hemoglobin A1C levels are related to mean glucose during the preceding 2-3 months. Less than 7% demonstrates glycemic control in diabetic patients. Hemoglobin AlC % Suggested Diagnosis > or = 6.5 Diabetic 5.7 - 6.4 Prediabetic <5.7 Non-diabetic eAVG Glucose 139.85 mg/dL 04/09/2024 6:57 PM EDT [facility] Blood Venipuncture / Unknown 04/09/2024 2:56 PM EDT 04/09/2024 4:30 PM EDT Nicholas Castro MD LAB BLOOD ORDERABLES Final Result [facility] [address] [phone] from Last 3 Months or Most Recently Relevant to Health Maintenance Insurance BLUE CROSS/BLUE SHIELD Advance Directives For more information, please contact: [phone] * Full Code (Latest Code Status on File) Date Activated Date Inactivated Comments 04/17/2024 1:15 PM 04/18/2024 2:19 PM * Full Code Date Activated Date Inactivated Comments 04/17/2024 7:55 AM 04/17/2024 1:15 PM Care Teams Global Clinical Leader Relationship Specialty Start Date End Date Amalia Walter [address] [place] [address] PCP - General 04/09/24
--- OUTSIDE RECORDS SUMMARY | 2025-08-28 15:06 | XMS_ITS | Encounter Summary ---
Author Organization [employer] ([place], [place], [place], [place]) Address [address] [place] [address] Care Team Providers Care Ferryboat Ticket Taker Name Role Phone Amalia Walter Primary Care Provider [phone] Encounter Details Date Type Department Care Team (Late st Contact Info) Description 01/28/2021 Transcribed Document [facility] [place] [address] [place] [address] ProviderEmely MD [address] [place] [address] Social History Tobacco Use Types [...] 1965 Associated Diagnoses: None Author: RANDA LEACH, POLE CLIMBER Chief Complaint R foot pain Review of [...] painful ROM R foot. Integumentary: Warm, Dry, [place]. Neurologic: Alert, Oriented. Psychiatric: Cooperative, Appropriate mood [...] on filedocumented in this encounter Care Teams Ferryboat Ticket Taker Relationship Specialty Start Date End Date mayrageeta Amalia [address] [place] [address] PCP - General 04/09/24 documented as of this encounter
--- OUTSIDE RECORDS SUMMARY | 2025-08-28 15:06 | XMS_ITS | Encounter Summary ---
Author Organization [employer] ([place], [place], [place], [place]) Address [address] [place] [address] Care Team Providers Care Maintenance Helper Name Role Phone Amalia Walter Primary Care Provider [phone] Encounter Details Date Type Department Care Team (Late st Contact Info) Description 01/28/2021 Transcribed Document [place] Family Medicine [address] [place] [address] ProviderEmely MD [address], [place] [id number] Social History Tobacco Use Types Packs/Day Years [...] : 1965 SURGEON: Ramon Rivero DPM LOCATION: [facility]. HOME CARE ASSISTANT: None. PREOPERATIVE DIAGNOSES: 1. Plantar plate tear, [...] in the next 24 to 72 hours. /[id number] PIERO Ugarte/AQ / GUZMAN / MODL /[id number] documented in this encounter Plan of Treatment Not on file documented as of this encounter Visit Diagnoses Not on filedocumented in this encounter Care Teams Maintenance Helper Relationship Specialty Start Date End Date Amalia Walter [address] [place] [address] PCP - General 04/09/24 documented as of this encounter
--- OUTSIDE RECORDS SUMMARY | 2025-08-28 15:06 | XMS_ITS | Encounter Summary ---
Author Organization [employer] ([place], [place], [place], [place]) Address [address] [place] [address] Care Team Providers Care Manager Shift Name Role Phone Amalia Walter Primary Care Provider [phone] Encounter Details Date Type Department Care Team (Late st Contact Info) Description 01/28/2021 Transcribed Document [facility] [place] [address] [place] [address] ProviderEmely MD [address], [place] [phone] Social History Tobacco Use Types Packs/Day Years [...] Source : Measured Height Entry Format : [place] Height, Feet : 5 ft(Converted to: 152 cm, 60 Inch) Height, Inches : 9 Inch(Converted to: 0 ft 9 Inch, 22.86 cm) Clinical Height : 175.26 cm Weight Source : Standing scale Weight Entry Format : [place] Clinical Dosing Weight : 96.36 kg Weight, Pounds : 212 lb Body Surface Area (BSA) : 2.12 m2 Body Mass Index : 31.4 kg/m2 (HI) [place] Body Weight : 66 kg DEB DANIELS RN - 01/28/2021 9:50 EDT Health Histories Smoking Status : Former smoker, quit more than 30 days ago Smokeless Tobacco Status : Never Implant/Device Type, Solution Developer and Model : dental implants DBE DANIELS RN - 01/28/2021 9:50 EDT Social [...] DEB DANIELS RN - 01/28/2021 9:50 EDT [place] Suicide Severity Rating Scale (C-SSRS) CSSRS Past [...] Obtained From : Patient Primary Language : Italian Communication Barrier : None Physician Recruiter Needed : DEB Aguirre RN - 01/28/2021 [...] on filedocumented in this encounter Care Teams Manager Shift Relationship Specialty Start Date End Date Saba Amalia [address] [place] [address] PCP - General 04/09/24 documented as of this encounter
--- OUTSIDE RECORDS SUMMARY | 2025-08-28 15:06 | XMS_ITS | Encounter Summary ---
Author Organization [employer] ([place], [place], [place], [place]) Address [address] [facility] [place] [address] Care Team Providers Care Senior Engineering Associate Name Role Phone Amalia Walter Primary Care Provider [phone] Encounter Details Date Type Department Care Team (Late st Contact Info) Description 01/28/2021 Transcribed Document [facility] [address] [place] [address] ProviderEmely MD [address] [place] [address] Social History Tobacco Use Types [...] Emely ProviderMD - 01/28/2021 12:31 PM CDT [facility] Main OR Preop Summary Primary Physician: NORMA FOSTER DPM-POD Finalized Date/Time: 01/28/21 13:40:47 Pt. Name: ZEHRA SHEPHERD /Sex: 1965 Female Med Rec #: [id number] Physician: NORMA FOSTER DPM-POD Financial #: [id number] Pt. Type: O Room/Bed: Admit/Disch: 01/28/21 08:17:00 - Institution: [facility] PreOp Case Times Entry 1 In Preop 01/28/21 08:46:00 Ready for Holding n/a Room Patient Ready for 01/28/21 10:15:00 Surgery Patient Out of Preop 01/28/21 12:10:00 Patient Out of n/a Holding Room Last Modified By: DEB DANIELS RN 01/28/21 13:40:41 [facility] PreOp Case Times Audit 01/28/21 13:40:41 Cement Boat And Barge Loader: EARNESTDWIGHTJulio Cesar Modifier: MCGRANM <+> 1 Patient Out of Preop Finalized By: DEB DANIELS RN Document Signatures Signed By: DEB DANIELS RN 01/28/21 13:40 Electronically signed by Rebecca [facility] Conversion Switching Clerk Cerner at 02/28/2023 7:31 PM CDT documented in this encounter Plan of Treatment Not on file documented as of this encounter Visit Diagnoses Not on filedocumented in this encounter Care Teams Senior Engineering Associate Relationship Specialty Start Date End Date JakobSarah connorvishnuangi [address] [place] [address] PCP - General 04/09/24 documented as of this encounter
--- OUTSIDE RECORDS SUMMARY | 2025-08-28 15:06 | XMS_ITS | Encounter Summary ---
Author Organization [employer] ([place], [place], [place], [place]) Address [address] [place] [address] Care Team Providers Care White Sourer Name Role Phone Amalia Walter Primary Care Provider [phone] Encounter Details Date Type Department Care Team (Late st Contact Info) Description 01/28/2021 Transcribed Document [facility] [place] [address] [place] [address] ProviderEmely MD [address] [place], [place] [id number] Social History Tobacco Use Types Packs/Day Years [...] that pinch your toes. ??? 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 ??? Have a second toe that [...] Follow these instructions at home: ??? Take ivsb-ofk-qmvcmju and prescription medicines only as told by [...] provider. Document Revised: 10/12/2018 Document Reviewed: 02/22/2017 [email or web address].com Patient Education ? 2020 [employer]Buscatucancha.[employer] Inc. General Anesthesia, Adult, Care After This [...] activities are safe for you. ??? Take abbn-nyz-jxrpytg and prescription medicines only as told by [...] provider. Document Revised: 11/02/2018 Document Reviewed: 06/15/2018 [employer]hes[employer] Patient Education ? 2020 [employer]. documented in this encounter Plan of Treatment Not on file documented as of this encounter Visit Diagnoses Not on filedocumented in this encounter Care Teams White Sourer Relationship Specialty Start Date End Date Amalia Walter [address] [place] [address] PCP - General 04/09/24 documented as of this encounter
--- OUTSIDE RECORDS SUMMARY | 2025-08-28 15:07 | XMS_ITS | Clinical Summary ---
Author Organization [facility] Address [address] [place] [address] Phone Misbah [email or web address] Care Team Providers Care Granular Operator Name Role Phone No, Provider Primary [...] Continuous Blood Gluc Sensor (Dexcom G7 Sensor) [facility] Acti ve Continuous Blood Gluc Nursery Manager (Dexcom G7 Nursery Manager) device Active rosuvastatin (CRESTOR) 10 MG tablet [...] Description 06/13/2025 11:30 AM EDT Office Visit [place] [address] [place] [address] Rasheeda Quinteros, KHOA Encounter for other administrative examinations (Primary Dx); S/P amputation of lesser toe, right (CMS/HCC); Hx of diabetes mellitus 06/03/[address] [place] [address] Deepthi Porter, EMT from Last 3 Months Social History Tobacco [...] FOBT Test 1965 HIV Screening 1965 HPV only / HPV + Pap 1964 Hepatitis C Screening 1965 Pap only testing 1964 Sigmoidoscopy 1964 Covid-19 Immunization (#1) 1969 Annual Preventive Exam 1982 Hep B Infection Screening - Triple Screen 1982 Tetanus Diphtheria and Pertussis Immunization (1 - Tdap) 1983 Pneumococcal: 50+ Years (1 of 1 - PCV) 2014 Influenza Immunization (#1) 07/14/202509/13, 08/10/2020, 07/30/2019, Additional history exists Breast Cancer Screening 03/07/2027 03/07/2025, 03/07 Hepatitis A Immunization Aged Out 02/25/ 019, 08/28/2018, 07/27/2018 No longer eligible based [...] patient's age to complete this topic Insurance [facility]LY [facility], [facility] 5 Care Teams Granular Operator Relationship Specialty Start Date End Date No, Provider [place], [place] PCP - General Family Medicine 09/23/19
--- OUTSIDE RECORDS SUMMARY | 2025-08-28 15:07 | XMS_ITS | Clinical Summary ---
Author Organization [facility] Address [address] [place] [address] Care Team Providers Care Food Scientist Name Role Phone Amalia Walter APRN Primary Care Provider [phone] Allergies Active Allergy Reactions Criticality Noted Date [...] Active Continuous Glucose Sensor (Dexcom G7 Sensor) [facility] USE DIRECTED 4 Active cyclobenzaprine (Flexeril) 5 [...] mouth 1 (one) time each day. Active Immunizations Immunization Administration Dates Next Due Hep [...] Description 11/21/2025 9:40 AM EST Office Visit [facility] [address] [place] [address] Kristyn Gusman, PRACTICE OR STUDENT TEACHER [address] [address] 03/06/2026 8:45 AM EDT Office Visit Obstetrics & Gynecology [address] [place] [address] Pepito Rosales MD [address] [place] [address] Health Maintenance Due Date Last Done Comments [facility]-Diabetes: Hemoglobin A1C 1965 [facility]-HIV Screening 1965 [facility]-Hepatitis C Screening 1964 [facility]-/Child/Adol SDOH Screenings 1965 OZA-FTSUB-94 Vaccine (#1) 1969 Diabetes: Dental Exam 1974 [...] PM EDT Narrative 03/07/2025 4:18 PM EDT [place] [address] [place] [address] Name: ZEHRA SHEPHERD Exam Date: 03/07/2025 : 1965 Age 59 years Gender: F Physician: PEPITO ROSALES Facility: [facility] Facility HSV: Outpatient Exam: TITUS [...] Thank you for referring ZEHRA SHEPHERD to [facility]. Legally authenticated by LORRAINE CHILDS 2025-03-07 16:06:10 Procedure Note Provider, [place] - 03/07/2025 [place] [address] [place] [address] Name: ZEHRA SHEPHERD Exam Date: 03/07/2025 : 1965 Age 59 years Gender: F Physician: PEPITO ROSALES Facility: [facility] Facility HSV: Outpatient Exam: TITUS [...] Thank you for referring ZEHRA SHEPHERD to [facility]. Legally authenticated by LORRAINE CHILDS 2025-03-07 16:06:10 us Pepito Rosales MD IMG BI PROCEDURES Final Result from Last 3 Months or Most Recently Relevant to Health Maintenance Insurance ANTH Care Teams Food Scientist Relationship Specialty Start Date End Date Amalia Walter APRN [address] [place] [address] PCP - General 09/17/24
--- OUTSIDE RECORDS SUMMARY | 2025-08-28 15:07 | XMS_ITS | Encounter Summary ---
Author Organization [facility] Address [address] [place] [address] Phone Misbah [email or web address] Care Team Providers Care Wardrobe Assistant Name Role Phone No, Provider Primary Care Provider Unavailabl e Encounter Details Date Type Department Care Team (Late st Contact Info) Description 09/18/2018 Ancillary Orders [address] [place] [address] Qing Godoy PA [address] [place] [address] Acute pain of right shoulder [...] shoulder documented in this encounter Care Teams Wardrobe Assistant Relationship Specialty Start Date End Date No, Provider VICTOR MANUEL Nixon PCP - General Family Medicine 09/23/19 documented as of this encounter
--- OUTSIDE RECORDS SUMMARY | 2025-08-28 15:07 | XMS_ITS | Encounter Summary ---
Author Organization [facility] Address [address] [place] [address] Care Team Providers Care Auto Former Machine Operator Name Role Phone Amalia Walter AIRPLANE FLIGHT ATTENDANT SUPERVISOR Primary Care Provider [phone] Encounter Details Date Type Department Care Team (Late Contact Info) Description 03/07/2025 Outside Procedure External Location [address] [place] [address] Pepito Rosales MD [address] [place] [address] Social History Tobacco Use Types [...] Description 11/21/2025 9:40 AM EST Office Visit [facility] [address] [place] [address] Kristyn Gusman, AIRPLANE FLIGHT ATTENDANT SUPERVISOR [address] [address] 03/06/2026 8:45 AM EDT Office Visit Obstetrics & Gynecology [address] [place] [address] Pepito Rosales MD [address] [place] [address] documented as of this encounter Procedures Procedure Name Priority Date/Time Associated Diagnosis Comments MAMMOGRAPHY BREAST SCREENING TOMOSYNTHESIS BILATERAL 03/07/2025 3:49 PM EDT documented in this encounter Results * Mammography Breast Screening Tomosynthesis Bilateral (03/07/2025 3:49 PM EDT) Anatomical Region Laterality Modality Breast Bilateral Mammography 03/07/2025 3:49 PM EDT Narrative 03/07/2025 4:18 PM EDT [facility] [address] [place] [address] Name: ZEHRA SHEPHERD Exam Date: 03/07/2025 : 1965 Age 59 years Gender: F Physician: PEPITO ROSALES Facility: [facility] Facility HSV: Outpatient Exam: TITUS SCRN [...] Thank you for referring ZEHRA SHEPHERD to [facility]. Legally authenticated by LORRAINE CHILDS 2025-03-07 16:06:10 Procedure Note Provider, [facility] - 03/07/2025 [place] [address] Name: ZEHRA SHEPHERD Exam Date: 03/07/2025 : 1965 Age 59 years Gender: F Physician: PEPITO ROSALES Facility: [facility] Facility HSV: Outpatient Exam: TITUS SCRN [...] Thank you for referring ZEHRA SHEPHERD to [facility]. Legally authenticated by LORRAINE CHILDS [...] documented as of this encounter Care Teams Auto Former Machine Operator Relationship Specialty Start Date End Date Amalia Walter APRN [address] [place], [place] [id number] PCP - General 09/17/24 documented as of this encounter
--- OUTSIDE RECORDS SUMMARY | 2025-08-28 15:07 | XMS_ITS | Clinical Summary ---
Author Organization [employer] ([place], [place], [place], [place]) Address [address] [place] [address] Care Team Providers Care Branch Lending Officer Name Role Phone Amalia Walter Primary Care Provider [phone] Allergies Active Allergy Reactions Criticality Noted Date [...] Date Tien rded Speak language other than Tuvaluan at home Not on file 03/12/2024 Want [...] Breast Cancer Screening 2004 Lipid Panel 2009 Hemoglobin A1C 10/10/2024 04/09/2024 Tobacco Cessation Counseling and Screening (12+) 04/17/2025 04/17/2024 COVID-19 VACCINE ( season) 2025 Influenza Vaccine (#1) 2025 11/01/2013 Shingles Vaccine (Zoster) Completed 01/12/2021, Medical Devices Implanted Type Area Director Design Device Identifier Shelf Expiration Date Model / Serial / Lot Psn Keel Spkd 0 Sz F Oss L 20-2344-115- 01 - [id number] Implanted:Qt y: 1 on 04/17/2024 at [facility] TOTAL JOINT CONSTRUCT Left: Knee RUPERT:RUPERT [id number] 07/07/2033 42-5350-0 75-01 / / [id number] Psn Fem Cr Pps Cocr Nrw Sz9 L 40-6422-008- 01 - [id number] Implanted:Qt y: 1 on 04/17/2024 at [facility] TOTAL JOINT CONSTRUCT Left: Knee RUPERT:RUPERT [id number] 02/14/2033 42-5080-0 66-01 / / [id number] Psn Art Surf 10mm 8-11/E-F Lt 62-8496-287- 10 - [id number] Implanted:Qt y: 1 on 04/17/2024 at [facility] TOTAL JOINT CONSTRUCT Left: Knee RUPERT:RUPERT [id number] 12/20/2028 42-5121-0 08-10 / / [id number] Procedures Procedure Name Priority Date/Time Associated Diagnosis Comments HEMOGLOBIN A1C Routine 04/09/2024 2:56 PM EDT Preop testing from Last 3 Months or Most Recently Relevant to Health Maintenance Results * Hemoglobin A1c (04/09/2024 2:56 PM EDT) Hemoglobin A1C 6.5 % 04/09/2024 6:57 PM EDT [facility] Comment: Hemoglobin A1C levels are related to mean glucose during the preceding 2-3 months. Less than 7% demonstrates glycemic control in diabetic patients. Hemoglobin AlC % Suggested Diagnosis > or = 6.5 Diabetic 5.7 - 6.4 Prediabetic <5.7 Non-diabetic eAVG Glucose 139.85 mg/dL 04/09/2024 6:57 PM EDT [facility] Blood Venipuncture / Unknown 04/09/2024 2:56 PM EDT 04/09/2024 4:30 PM EDT Nicholas Castro MD LAB BLOOD ORDERABLES Final Result [facility] [address] [place] [id number] [phone] from Last 3 Months or Most Recently Relevant to Health Maintenance Insurance BLUE CROSS/BLUE SHIELD Advance Directives For more information, please contact: [phone] * Full Code (Latest Code Status on File) Date Activated Date Inactivated Comments 04/17/2024 1:15 PM 04/18/2024 2:19 PM * Full Code Date Activated Date Inactivated Comments 04/17/2024 7:55 AM 04/17/2024 1:15 PM Care Teams Branch Lending Officer Relationship Specialty Start Date End Date Amalia Walter [address] [place] [address] (work) PCP - General 04/09/24
[2025-08-28 15:58] LABS: Hematocrit 32.8 % (37.0-47.0); Hemoglobin 10.3 g/dL (12.2-16.2); Immature Granulocytes % 0.2 %; Mean Corpuscular HGB Conc 31.4 g/dL (31.8-35.4); Mean Corpuscular Hemoglobin 28.1 pg (27.0-31.2); Mean Corpuscular Volume 89.4 fl (81-99); Nucleated Red Blood Cells % 0 %; Platelet Count 219 K/mm3 (142-424); Red Blood Count 3.67 M/mm3 (4.20-5.40); Red Cell Distribution Width-SD 47.8 fL; White Blood Count 6.6 K/mm3 (4.8-10.8)
[2025-08-28 16:02] LABS: Benzodiazepines Screen,Urine Negative ng/ml (<200)
[2025-08-28 16:03] LABS: Amphetamine/Metha Screen,Urine Negative ng/ml (<1000); Barbiturates Screen,Urine Negative ng/ml (<200)
[2025-08-28 16:05] LABS: Methadone Screen,Urine Negative ng/ml (<300)
[2025-08-28 16:07] LABS: Opiate Screen,Urine Negative ng/ml (<300); Phencyclidine Screen,Urine Negative ng/ml (<25)
[2025-08-28 16:49] LABS: Alanine Aminotransferase 43 U/L (12-78); Albumin Level 4.3 g/dl (3.5-5.0); Albumin/Globulin Ratio 2.4 (1.1-1.8); Alkaline Phosphatase 88 U/L (38-126); Anion Gap 14.5 mEq/L (5-15); Aspartate Amino Transferase 37 U/L (14-36); Bilirubin,Total 0.4 mg/dl (0.2-1.3); Blood Urea Nitrogen 37 mg/dl (7-17); Calcium 9.9 mg/dl (8.4-10.2); Carbon Dioxide 25 mmol/L (22.0-30.0); Chloride 104 mmol/L (98-107); Cholesterol 132 mg/dl (140-200); Creatinine,Serum 1.20 mg/dl (0.52-1.04); Estimated Glomerular Filt Rate 46 ml/min (>60); GFR (African American) 55 ML/MIN (>60); Globulin 1.8 g/dL (1.3-3.2); Glucose 100 mg/dl (74-100); HDL Cholesterol 41 mg/dl (40-60); Potassium 4.5 mmoL/L (3.5-5.1); Sodium 139 mmol/L (136-145); Total Protein,Serum 6.1 g/dl (6.3-8.2); Triglycerides 272 mg/dl (30-150)
[2025-08-28 17:03] LABS: 25-OH Vitamin D, Total 91.6 ng/mL (30-100); Free T4 (Free Thyroxine) 0.96 ng/dl (0.78-2.19)
[2025-08-28 17:18] LABS: Thyroid Stimulating Hormone 2.04 uIU/mL (0.465-4.68)
[2025-08-28 17:38] LABS: Vitamin B12 971 pg/mL (239-931)
[2025-08-28 18:54] LABS: Folate > 20.00 ng/mL
== END 2025-08-28 23:59 | disposition home or self-care (01) ==
LOC: LAB 15:04
PROVIDERS: PCP Nurse Practitioner Family; Visit Provider Nurse Practitioner Family
DX: E11.40 Type 2 diabetes mellitus with diabetic neuropathy, unspecified (principal); R53.81 Other malaise; R53.83 Other fatigue; Z79.899 Other long term (current) drug therapy
CPT/HCPCS: 80053; 80061; 80307; 82306; 82607; 82746; 84439; 84443; 85025

== ENCOUNTER 2025-09-09 06:19 | Outpatient (CLI) | payer BC, SELFPAY ==
--- NOTE | 2025-09-09 | CA_ITS ---
APPROVED REPORT Exam: Pharmacologic Technologist: Laura Duvall Stress Nurse: Catrachita Nur, RN Ht: 5 ft 9 in Wt: 182 lbs BSA: 1.99 m2 HR: 68 bpm BP: 134/74 mmHg Indications: Dyspnea, Coronary artery disease, Palpitations Stress Test Details Test: Lexiscan HR Resting HR: 68 bpm Max Heart Rate (APMHR): 160.392674 bpm Max HR Achieved: 97 bpm Target HR (85% APMHR): 136.810981 bpm % of APMHR: 60.63 Recovery HR: 86 bpm BP Resting BP: 134.0/74.0 mmHg Max BP: 138.0/74.0 mmHg Recovery BP: 132.0/73.0 mmHg ECG Resting ECG: Sinus rhythm Stress ECG Conclusion Lungs clear to auscultation prior to test start. Symptoms: None Arrhythmias/Ectopy: None ST-T Changes: Less than 0.[address] segment changes. Conclusion: Nondiagnostic ECG/Lexiscan. Electronically signed by : Sherrie Pedroza MD 09/09/2025 12:29:26
--- OUTSIDE RECORDS SUMMARY | 2025-09-09 06:22 | XMS_ITS | Encounter Summary ---
Author Organization [employer] ([place], [place], [place], [place]) Address [address] [place] [address] Care Team Providers Care Galvanizing Pot Runner Name Role Phone Amalia Walter Primary Care Provider Encounter Details Date Type Department Care Team (Late st Contact Info) Description 01/28/2021 Transcribed Document [facility] [place] [address] [place] [address] ProviderEmely MD [address] [place] [address] Social History Tobacco Use Types [...] Performed On: 01/28/2021 10:30 EDT by DEB ADNIELS RN Procedure Documentation Procedure to be Performed [...] Anesthesiologist Procedure Case Attendee Role 2 : insurance verify rep Case Attendee 2 : GUILLE Zhu RN Procedure Case Attendee Role 3 : insurance verify rep Case Attendee 3 : DEB DANIELS RN [...] on filedocumented in this encounter Care Teams Galvanizing Pot Runner Relationship Specialty Start Date End Date Amalia Walter [address] [place] [address] PCP - General 04/09/24 documented as of this encounter
--- OUTSIDE RECORDS SUMMARY | 2025-09-09 06:22 | XMS_ITS | Encounter Summary ---
Author Organization [employer] ([place], [place], [place], [place]) Address [address] [place] [address] Care Team Providers Care Guideman Name Role Phone Amalia Walter Primary Care Provider [phone] Encounter Details Date Type Department Care Team (Late st Contact Info) Description 01/28/2021 Transcribed Document [facility] [address] [place] [address] ProviderEmely MD [address] [place] [id number] Social History Tobacco Use Types Packs/Day Years [...] : 1965 SURGEON: Ramon Rivero DPM LOCATION: [facility]. CONTROL SYSTEM MANAGER: None. PREOPERATIVE DIAGNOSES: 1. Plantar plate tear, [...] in the next 24 to 72 hours. /[id number] PIERO Ugarte/AQ / GUZMAN / MODL /[id number] Electronically signed by Jeferson Fernandez Conversion Sporting Goods Sales Manager Cerner at 02/28/2023 7:56 PM CDT documented in this encounter Plan of Treatment Not on file documented as of this encounter Visit Diagnoses Not on filedocumented in this encounter Care Teams Guideman Relationship Specialty Start Date End Date Amalia Walter [address] [place] [address] PCP - General 04/09/24 documented as of this encounter
--- OUTSIDE RECORDS SUMMARY | 2025-09-09 06:22 | XMS_ITS | Encounter Summary ---
Author Organization [employer] ([place], [place], [place], [place]) Address [address] [place] [address] Care Team Providers Care Fiber Heel Piece Shaper Name Role Phone Amalia Walter Primary Care Provider Encounter Details Date Type Department Care Team (Late st Contact Info) Description 01/28/2021 Transcribed Document [facility] [address] [place] [address] ProviderEmely MD [address] [place] [address] Social History Tobacco Use Types [...] Adams MD - 01/28/2021 2:29 PM CDT [facility] [address] ZEHRA ESPINO :1965 Visit Time:01/28/2021 What [...] for as needed for pain Pickup at [facility] 5636 ascorbic acid (Vitamin C) 1,000 Milligram(s) Oral [...] 50 Milligram(s) Oral Every Day Pharmacy Information [facility] 7259: [address] [facility] [address] [place], [place] [phone] Take your medications faithfully. Do NOT skip [...] that pinch your toes. ??? 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 ??? Have a second toe that [...] Follow these instructions at home: ??? Take zdez-vmc-gavncjv and prescription medicines only as told by [...] provider. Document Revised: 10/12/2018 Document Reviewed: 02/22/2017 [employer] Patient Education ?? 2020 [employer] Inc. General Anesthesia, Adult, Care After This [...] activities are safe for you. ??? Take tckb-qix-qgjjtis and prescription medicines only as told by [...] provider. Document Revised: 11/02/2018 Document Reviewed: 06/15/2018 ElseConnexient Patient Education ?? 2020 [employer]. Emergency Awareness and Preventative Care STROKE is [...] Assistance with quitting is available by contacting 4-362-VXVJ-NOW. This is a free resource providing counseling, [...] was given the opportunity to ask questions. Patient/Racking Technician Name: Patient/Racking Technician Signature: Relationship to Patient: Clinician/Hospital Racking Technician Signature: Date: documented in this encounter Plan of Treatment Not on file documented as of this encounter Visit Diagnoses Not on filedocumented in this encounter Care Teams Fiber Heel Piece Shaper Relationship Specialty Start Date End Date Amalia Walter [address] [place] [address] PCP - General 04/09/24 documented as of this encounter
--- OUTSIDE RECORDS SUMMARY | 2025-09-09 06:22 | XMS_ITS | Encounter Summary ---
Author Organization [employer] ([place], [place], [place], [place]) Address [address] [facility] [place] [address] Care Team Providers Care Carpet Layer Helper Name Role Phone Amalia Walter Primary Care Provider [phone] Encounter Details Date Type Department Care Team (Late st Contact Info) Description 01/28/2021 Transcribed Document [facility] [place] [address] [place] [address] ProviderEmely MD [address] [place] [address] Social History Tobacco Use Types Packs/Day Years Used Date Smoking Tobacco: Never Assessed Comments Unknown Sex and Gender Information Value Date Recorded Sex Assigned at Female 05/12/2022 6:35 PM CDT Legal Sex Female 7:17 PM CDT Gender Identity Female 05/12/2022 6:35 PM CDT Sexual Orientation Not on file documented as of this encounter Miscellaneous Notes * Cerner Conversion Note - Eemly ProviderMD - 01/28/2021 12:31 PM CDT [facility] Main OR Preop Summary Primary Physician: NORMA FOSTER DPM-POD Finalized Date/Time: 01/28/21 13:40:47 Pt. Name: ZEHRA SHEPHERD /Sex: 1965 Female Med Rec #: [id number] Physician: NORMA FOSTER DPM-POD Financial #: [id number] Pt. Type: O Room/Bed: Admit/Disch: 01/28/21 08:17:00 - Institution: [facility] PreOp Case Times Entry 1 In Preop 01/28/21 08:46:00 Ready for Holding n/a Room Patient Ready for 01/28/21 10:15:00 Surgery Patient Out of Preop 01/28/21 12:10:00 Patient Out of n/a Holding Room Last Modified By: DEB DANIELS RN 01/28/21 13:40:41 [facility] PreOp Case Times Audit 01/28/21 13:40:41 Laundry Tech: EARNESTDWIGHTJulio Cesar Modifier: MCGRANM <+> 1 Patient Out of Preop Finalized By: DEB DANIELS RN Document Signatures Signed By: DEB DANIELS RN 01/28/21 13:40 Electronically signed by Rebecca [facility] Conversion Attendant Honor Bar Cerner at 02/28/2023 7:31 PM CDT documented in this encounter Plan of Treatment Not on file documented as of this encounter Visit Diagnoses Not on filedocumented in this encounter Care Teams Carpet Layer Helper Relationship Specialty Start Date End Date JakobSarah connorvishnuangi [address] [place] [address] PCP - General 04/09/24 documented as of this encounter
--- OUTSIDE RECORDS SUMMARY | 2025-09-09 06:22 | XMS_ITS | Encounter Summary ---
Author Organization [employer] ([place], [place], [place], [place]) Address [address] [place] [address] Care Team Providers Care Goat Herder Name Role Phone Amalia Walter Primary Care Provider [phone] Encounter Details Date Type Department Care Team (Late st Contact Info) Description 01/28/2021 Transcribed Document [facility] [place] Family Medicine [facility] [place] [address] ProviderEmely MD [address], [place] [id number] Social History Tobacco Use Types Packs/Day Years [...] that pinch your toes. ??? 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 ??? Have a second toe that is [...] Follow these instructions at home: ??? Take qdjv-hrh-ucyinoj and prescription medicines only as told by [...] provider. Document Revised: 10/12/2018 Document Reviewed: 02/22/2017 ElseIngeny Patient Education ? 2020 ElseIngeny Inc. General Anesthesia, Adult, Care After This [...] activities are safe for you. ??? Take wnlb-zra-kwpiewi and prescription medicines only as told by [...] provider. Document Revised: 11/02/2018 Document Reviewed: 06/15/2018 [employer] Patient Education ? 2020 ClickFox. documented in this encounter Plan of Treatment Not on file documented as of this encounter Visit Diagnoses Not on filedocumented in this encounter Care Teams Goat Herder Relationship Specialty Start Date End Date Amalia Walter [address] [place] [address] PCP - General 04/09/24 documented as of this encounter
--- OUTSIDE RECORDS SUMMARY | 2025-09-09 06:22 | XMS_ITS | Encounter Summary ---
Author Organization [employer] ([place], [place], [place], [place]) Address [address] [place] [address] Care Team Providers Care Seafood Processor Name Role Phone Amalia Walter Primary Care Provider [phone] Encounter Details Date Type Department Care Team (Late st Contact Info) Description 01/28/2021 Transcribed Document [facility] Family Medicine [address] [place] [address] ProviderEmely MD [address] [id number] Social History Tobacco Use Types Packs/Day Years [...] Source : Measured Height Entry Format : Burt Height, Feet : 5 ft(Converted to: 152 cm, 60 Inch) Height, Inches : 9 Inch(Converted to: 0 ft 9 Inch, 22.86 cm) Clinical Height : 175.26 cm Weight Source : Standing scale Weight Entry Format : Burt Clinical Dosing Weight : 96.36 kg Weight, Pounds : 212 lb Body Surface Area (BSA) : 2.12 m2 Body Mass Index : 31.4 kg/m2 (HI) Caney Body Weight : 66 kg DEB DANIELS RN - 01/28/2021 9:50 EDT Health Histories Smoking Status : Former smoker, quit more than 30 days ago Smokeless Tobacco Status : Never Implant/Device Type, Weigh Tank Operator and Model : dental implants DEB [...] DEB DANIELS RN - 01/28/2021 9:50 EDT [place] Suicide Severity Rating Scale (C-SSRS) CSSRS Past [...] Obtained From : Patient Primary Language : Mosotho Communication Barrier : None General Service Technician Needed : DEB Aguirre RN - 01/28/2021 [...] EDT Electronically signed by Jeferson Fernandez Conversion Haunted History Tour Guide Cerner at 02/28/2023 7:49 PM CDT documented in this encounter Plan of Treatment Not on file documented as of this encounter Visit Diagnoses Not on filedocumented in this encounter Care Teams Seafood Processor Relationship Specialty Start Date End Date Saba Amalia [address] [place] [address] PCP - General 04/09/24 documented as of this encounter
--- OUTSIDE RECORDS SUMMARY | 2025-09-09 06:22 | XMS_ITS | Encounter Summary ---
Author Organization [employer] ([place], [place], [place], [place]) Address [address] [facility] [place] [address] Care Team Providers Care Security System Engineer Name Role Phone Amalia Walter Primary Care Provider [phone] Encounter Details Date Type Department Care Team (Late st Contact Info) Description 01/28/2021 Transcribed Document [facility] [place] Family Medicine [address] [place] [address] ProviderEmely MD [address] [place] [address] Social History Tobacco Use Types [...] 1965 Associated Diagnoses: None Author: RANDA LEACH, SOLICITING FREIGHT AGENT Chief Complaint R foot pain Review of [...] painful ROM R foot. Integumentary: Warm, Dry, [place]. Neurologic: Alert, Oriented. Psychiatric: Cooperative, Appropriate mood & affect. Review / Management Results review: No qualifying data available , Lab results 01/28/2021 8:54 EDT Device Comment 1 Device Comment 1 Glucose POC2 135 mg/dL HI . Impression and Plan Condition: Stable. Electronically signed by Franco Fernandez Conversion Veterinary Science Teacher Cerner at 02/28/2023 7:39 PM CDT documented in this encounter Plan of Treatment Not on file documented as of this encounter Visit Diagnoses Not on filedocumented in this encounter Care Teams Security System Engineer Relationship Specialty Start Date End Date mayrageeta Amalia [address] [place] [address] PCP - General 04/09/24 documented as of this encounter
--- OUTSIDE RECORDS SUMMARY | 2025-09-09 06:22 | XMS_ITS | Encounter Summary ---
Author Organization [employer] ([place], [place], [place], [place]) Address [address] [place] [address] Care Team Providers Care Aviation Technician Aircraft Name Role Phone Amalia Walter Primary Care Provider [phone] Encounter Details Date Type Department Care Team (Late st Contact Info) Description 01/28/2021 Transcribed Document [facility] Medicine [address] [place] [address] ProviderEmely MD [address] [place] [address] Social History Tobacco Use Types [...] Emely ProviderMD - 01/28/2021 12:31 PM CDT [facility] Main OR PostOp Summary Primary Physician: NORMA FOSTER DPM-POD Finalized Date/Time: 01/28/21 16:01:28 Pt. Name: ZEHRA SHEPHERD /Sex: 1965 Female Med Rec #: [id number] Physician: NORMA FOSTER DPM-POD Financial #: [id number] Pt. Type: O Room/Bed: Admit/Disch: 01/28/21 08:17:00 - Institution: [facility] Main OR PostOp Case Times [...] Unfinalizing Freetext Reason for Unfinalizing 01/28/21 16:01 [id number] Modify Pick List Electronically signed by Rebecca [facility] Conversion Senior Clinical Data Coordinator Cerner at 02/28/2023 7:34 PM CDT documented in this encounter Plan of Treatment Not on file documented as of this encounter Visit Diagnoses Not on filedocumented in this encounter Care Teams Aviation Technician Aircraft Relationship Specialty Start Date End Date Amalia Walter [address] [place] [address] PCP - General 04/09/24 documented as of this encounter
--- OUTSIDE RECORDS SUMMARY | 2025-09-09 06:22 | XMS_ITS | Encounter Summary ---
Author Organization [employer] ([place], [place], [place], [place]) Address [address] [place] [address] Care Team Providers Care Auricular Acupuncturist Name Role Phone Amalia Walter Primary Care Provider [phone] Encounter Details Date Type Department Care Team (Late st Contact Info) Description 01/28/2021 Transcribed Document [facility] Family Medicine [address] [place] [address] ProviderEmely MD [address] [place] [address] Social History Tobacco Use Types [...] Emely ProviderMD - 01/28/2021 12:31 PM CDT [facility] Main OR IntraOp Summary Primary Physician: NORMA FOSTER DPM-POD Finalized Date/Time: 02/01/21 11:07:37 Pt. Name: ZEHRA ESPINO /Sex: 1965 Female Med Rec #: [id number] Physician: NORMA FOSTER DPM-POD Financial #: [id number] Pt. Type: O Room/Bed: Admit/Disch: 01/28/21 08:17:00 - 01/28/21 14:43:00 Institution: [facility] IntraOp Case Attendance Entry 1 Entry 2 Entry 3 Case Attendee NORMA FOSTER DPM-Lisbeth Puckett, JASMINE FRANKLIN RN Role Performed Surgeon/Proceduralist, Golf Sales Manager, First Golf Sales Manager, Second First Time In 01/28/21 12:13:00 01/28/21 [...] Attendee IN FOR SET-UP [facility] Superficial Wound Closed By: Last Modified By: Lisbeth Haas RN Proffitt, Debbie, RN Proffitt, Debbie, RN 01/28/21 13:18:17 01/28/21 13:18:17 01/28/21 13:18:17 Entry 7 Entry 8 Entry 9 Case Attendee OTHER, ATTENDEE #3 TAE TYLER, ANSHUL-ANS YUSRA DOSHI MD-ANS Role Performed Vendor SYSTEMS ANALYSIS MANAGER/Nurse Arabic Teacher Anesthesiologist of Record Time In 01/28/21 12:13:00 [...] RN 01/28/21 13:18:17 01/28/21 13:18:17 01/28/21 13:18:17 [facility] IntraOp Case Attendance Audit 01/28/21 13:18:30 Geriatric Aide: PROFITDE Modifier: PROFITDE <+> 1 Procedure 01/28/21 13:18:17 Geriatric Aide: PROFITDE Modifier: PROFITDE <+> 1 Time Out [...] Repair(Right), Neuroma Excision Soft Tissue 01/28/21 13:02:00 Geriatric Aide: PROFITDE Modifier: PROFITDE 7 <+> Time Out 7 <*> Procedure Hammer Toe Repair(Right), Neuroma Excision Soft Tissue 01/28/21 12:40:44 Geriatric Aide: PROFITDE Modifier: PROFITDE <+> 8 Case Attendee <+> 8 Role Performed <+> 8 Time In <+> 8 Procedure <+> 9 Case Attendee <+> 9 Role Performed <+> 9 Time In <+> 9 Procedure [facility] IntraOp Case Times Entry 1 Patient In Room Time 01/28/21 12:13:00 Out Room Time 01/28/21 13:18:00 Anesthesia Start Time 01/28/21 12:13:00 Stop Time 01/28/21 13:18:00 Anesthesia Ready 01/28/21 12:13:00 Surgery / Procedure Times Start Time 01/28/21 12:31:00 Stop Time 01/28/21 13:14:00 Last Modified By: Lisbeth Haas RN 01/28/21 13:18:07 [facility] IntraOp Case Times Audit 01/28/21 13:18:07 Geriatric Aide: PROFITDE Modifier: PROFITDE <+> 1 Out Room Time <+> 1 Stop Time <+> 1 Stop Time [facility] IntraOp Cautery Entry 1 ESU Identification Cautery Type Monopolar ESU ID Number [id number] ID Type Hospital Number Cautery Settings Cut Setting 30 Coag Setting 30 ESU Grounding Pad Ground Pad Type Adult Grounding Pad Site Right thigh Grounding Pad Lisbeth Haas RN Applied By Grounding Pad Site Warm, dry and intact Skin Condition Before Cautery Grounding Pad Site Unchanged Skin Condition After Cautery Last Modified By: Lisbeth Haas RN 01/28/21 12:43:00 [facility] IntraOp Communication Entry 1 Entry 2 Communication To Family/Significant other Family/Significant other Comment INFORMED OF START CLOSING Communication By JASMINE KEENE, JASMINE FRANKLIN, IVAN Date and Time 01/28/21 12:35:00 01/28/21 13:00:00 Last Modified By: Lisbeth Haas RN Proffitt, Debbie, RN 01/28/21 12:38:25 01/28/21 13:00:18 [facility] IntraOp Communication Audit 01/28/21 13:00:18 Geriatric Aide: PROFITDE Modifier: PROFITDE <+> 2 Communication By <+> 2 Date and Time <+> 2 Communication To <+> 2 Comment [facility] IntraOp Counts Verification Entry 1 Procedure Hammer Toe Repair(Right), Neuroma Excision Soft Tissue Count Info Count Type Sponge, Sharps, Miscellaneous Counts Verification Baseline/pre-procedure Sequence Count Results Not Applicable Counts Performed By Count Performed By OTHER, ATTENDEE #1 (Scrub) Count Performed By Joan De León RN (RN) Last Modified By: Lisbeth Haas RN 01/28/21 12:38:05 [facility] IntraOp Counts Final Entry 1 Entry 2 [...] Proffitt, Debbie, RN 01/28/21 12:41:55 01/28/21 13:00:02 [facility] IntraOp Counts Final Audit 01/28/21 13:00:02 Geriatric Aide: PROFITDE Modifier: PROFITDE <+> 2 Procedure <+> 2 Count Type <+> 2 Count Results <+> 2 Count Performed By (Scrub) <+> 2 Count Performed By (RN) <+> 2 Counts Verification Sequence [facility] IntraOp Cultures and Spec Summary Entry 1 Cultrures and Specimens Specimen Ordered: Yes Test(s) Routine/Path-Lab Requested/Final Disposition Last Modified By: Lisbeth Haas RN 01/28/21 12:42:03 [facility] IntraOp Departure from OR Entry 1 Integumentary Assessment Integumentary WDL with patient Assessment WDL specific variances Patient's Normal OPSITE Integumentary Variance(s) Transfer/Handoff Transfer to PACU Phase II Handoff Method Phone call Handoff Reported to VINOD LANDIN RN Post-op Transport Stretcher/Gurney Via Patient Transport JASMINE KEENE RN Accompanied by Last Modified By: Lisbeth Haas RN 01/28/21 13:12:31 [facility] IntraOp Departure from OR Audit 01/28/21 13:12:31 Geriatric Aide: PROFITDE Modifier: PROFITDE <+> 1 Handoff Reported to [facility] IntraOp Dressing and Packing Entry 1 Type Dressing Location OPSITE Wound Dressing Item 4x4's, Ronny, Kerlix/Regla, Adaptic Applied By NORMA FOSTER DPM-POD Other Comments BETADINE SOLUTION Last Modified By: Lisbeth Haas RN 01/28/21 13:09:21 [facility] IntraOp Dressing and Packing Audit 01/28/21 13:09:21 Geriatric Aide: PROFITDE Modifier: PROFITDE 1 <*> Wound Dressing Item 4x4's, Ronny, Kerlix/Regla, Adaptic, Steristrip 01/28/21 12:52:36 Geriatric Aide: PROFITDE Modifier: PROFITDE <+> 1 Location [facility] IntraOp Fire Risk Assessment Entry 1 Fire [...] Modified By: Lisbeth Haas RN 01/28/21 12:44:00 [facility] IntraOp General Case Automatic Grinding Machine Operator 1 Case Information OR OR 04 [facility] Case Level 1 Room Verified Yes Wound Class I - Clean Specialty SN Podiatry Anesthesia Type MAC ASA Class 2 Diagnosis Preop Diagnosis HAMMERTOE RIGHT FOOT, PLANTAR PLATE TEAR AND [place]'S NEUROMA RIGHT FOOT Postop Same As Preop No Postop Diagnosis SEE SURGEON'S POSTOP NOTES Last Modified By: Lisbeth Haas RN 01/28/21 12:47:21 [facility] IntraOp General Case Data Audit 01/28/21 12:47:21 Geriatric Aide: PROFITDE Modifier: PROFITDE 1 <*> OR OR 06 [facility] 1 <+> ASA Class 1 <+> Anesthesia Type 1 <+> Postop Same As Preop 1 <+> Preop Diagnosis 1 <+> Postop Diagnosis 1 <+> Room Verified [facility] IntraOp Implant Log Entry 1 Type Implant (Synthetic) Implant Log Implant Type Hardware Implant CORTEZ HELMS [id number] Identification Description Implant Quantity 1 Implant Site OPSITE Implant Schmitz Med Grp:Schmitz Identification Med Tech Dredge Boat Engineer Name: Implant [id number] Identification Catalog Number Implant Has an No Expiration Date Tissue Implant Last Modified By: Lisbeth Haas RN 01/28/21 13:10:36 [facility] IntraOp Implant Log Audit 01/28/21 13:10:36 Geriatric Aide: KELSIDE Modifier: PROFITDE 1 <*> Implant Identification Description CORTEZ HOG [id number] <+> Implant Has an Expiration Date [facility] IntraOp Intraoperative Assessment Entry 1 Handoff Method [...] Modified By: Lisbeth Haas RN 01/28/21 12:44:56 [facility] IntraOp Intraoperative Equipment Entry 1 Equipment Intraop Monitoring Electrocardiogram Five lead placement (ECG) Electrode Placement Blood Pressure Non-Invasive BP Device Source Blood Pressure Arm, right upper Location Pulse Oximeter Hand, left Probe Site Antiembolic Devices Scopes Photo/Video Documentation Last Modified By: Lisbeth Haas RN 01/28/21 12:47:46 [facility] IntraOp Medication Admin Entry 1 Medication/Irrigant MARTI IRR NACL 0.9PCT 2000ML [facility]-[id number] Route of IRRIGATION Administration Dose Dose 100 Unit of Measure ml Administered By NORMA FOSTER DPM-POD Procedure Irrigation Last Modified By: Lisbeth Haas RN 01/28/21 12:56:29 [facility] IntraOp Patient Positioning Entry 1 Procedure Hammer [...] Modified By: Lisbeth Haas RN 01/28/21 12:49:26 [facility] IntraOp Sign In Entry 1 Patient, Site, [...] Modified By: Lisbeth Haas RN 01/28/21 12:49:41 [facility] IntraOp Sign Out Entry 1 RN Confirmation [...] Modified By: Lisbeth Haas RN 01/28/21 13:18:15 [facility] IntraOp Skin Prep Entry 1 Procedure Hammer Toe Repair(Right), Neuroma Excision Soft Tissue Prescribed Yes Pre-Surgical Prep Completed Prep Area RIGHT FOOT Intraop Prep Integumentary WDL Assessment WDL Prep Agents Betadine scrub, Betadine solution Prep by Lisbeth Haas RN Hair Removal Methods No hair removal performed Last Modified By: Lisbeth Haas RN 01/28/21 12:50:10 [facility] IntraOp Surgical Procedures Entry 1 Entry 2 [...] Proffitt, Debbie, RN 01/28/21 13:18:08 01/28/21 13:18:08 [facility] IntraOp Surgical Procedures Audit 01/28/21 13:18:08 Geriatric Aide: PROFITDE Modifier: PROFITDE <+> 1 Stop <+> 2 Stop [facility] IntraOP Time Out Entry 1 Procedure to [...] Modified By: Lisbeth Haas RN 01/28/21 12:44:34 [facility] IntraOp Tourniquet Entry 1 Type Pneumatic Serial/Unit Number [id number] Setting 250 Pheumatic Yes Tourniquet Checked Per Protocol Size 18 inches Placement Ankle, right Skin Protection - Yes Padded Under Cuff Applied By Lisbeth Haas RN Removed By NORMA FOSTER DPM-POD Times Start Time 01/28/21 12:30:00 Stop Time 01/28/21 13:10:00 Total Time 40 calculated manually (Mins) Last Modified By: Lisbeth Haas RN 01/28/21 13:11:05 [facility] IntraOp Tourniquet Audit 01/28/21 13:11:05 Geriatric Aide: PROFITDE Modifier: PROFITDE <+> 1 Total Time [...] on filedocumented in this encounter Care Teams Auricular Acupuncturist Relationship Specialty Start Date End Date Amalia [address] [place] [address] PCP - General 04/09/24 documented as of this encounter
--- OUTSIDE RECORDS SUMMARY | 2025-09-09 06:22 | XMS_ITS | Data Portability ---
Author Organization Formerly [facility] Address [address] [place] [address] Care Team Providers Care Manager Enterprise Name Role Phone JENNIFER MCCORD Primary Care [...] Organization Details Last Modified Time Details Appointments Diabetic F/U 2025 04:40P M Jennifer Mccord APRN Not available Not available Not available Lab CMP, serum or plasma 2024 025 [facility] (Lab), [address] [place] [address] [address], [place], [address], 08/29/2025 07:40:55 CBC w/ auto diff 2024 025 [facility] (Lab), [address] [place] [address] [address], [place], [address], 08/29/2025 01:28:40 lipid panel, serum 2024 025 [facility] (Lab), [address] [place] [address] [address], [place], [address], 09/01/2025 13:18:13 drug screen, 14 drugs (detectim ed), urine 2024 025 [facility] (Lab), [address], [place], [address], 08/29/2025 05:06:35 vitamin D, 25-hydrox y, total, serum 2024 025 [facility] (Lab), [address], [place], [address], 09/01/2025 13:18:14 TSH + free T4, serum 2024 025 [facility] (Lab), [address], [place], [address], 09/01/2025 13:18:14 vitamin B12 + folate, serum or blood 2024 025 [facility] (Lab), [address], [place], [address], 08/29/2025 08:28:40 drug screen, urine 2024 025 [facility], [address] [facility], [place], [address], 02/25/2025 09:13:05 HbA1c (hemoglob in A1c), blood 2024 025 [facility], [address], [place], [place], [address], 02/26/2025 12:12:04 CMP, serum or plasma 2024 025 [facility], [address], [place], [place], [address], 02/26/2025 12:12:02 CBC w/ auto diff 2024 025 [facility], [address], [place], [place], [address], 02/26/2025 12:12:01 lipid panel, serum 2024 025 [facility], [address], [place], [place], [address], 02/26/2025 12:12:03 magnesium , serum or plasma 2024 025 [facility], [address], [place], [place], [address], 02/26/2025 12:12:04 cobalamin and folate panel, serum 2024 025 [facility], [address], [place], [place], [address], 02/26/2025 12:12:03 vitamin D, 25-hydrox y, total, serum 2024 025 [facility], [address], [place], [place], [address], 02/26/2025 12:12:04 Referral None recorded. Procedures None recorded. Surgeries None recorded. Imaging XR, ribs, unilatera l, w/ PA chest 2024 025 [facility] (X-Ray), [address] [place] [address] [address], [place], [address], 07/02/2025 09:03:23 XR, hip + pelvis, unilatera l, 2 or 3 view 2024 025 [facility] (X-Ray), [address], [place], [address], 06/29/2025 12:53:43 US, breast, unilatera l, complete - left breast and large hematoma just above breast 2024 025 [facility] ([facility]), [address], [place], [place], [address], 07/02/2025 10:23:30 Medication Orders diclofena c sodium 50 mg tablet,de layed release 2024 025 [facility], [address], [place], [address], 08/19/2025 17:48:19 Mounjaro 10 mg/0.5 mL subcutane ous pen injector 2024 025 [facility], [address], [place], [address], 08/19/2025 17:48:17 metformin ER 500 mg tablet,ex tended release 24 hr 2024 025 [facility], [address], [place], [address], 08/19/2025 17:48:15 Jardiance 10 mg tablet 2024 025 [facility], [address], [place], [address], 08/19/2025 17:48:19 cyclobenz aprine 5 mg tablet 2024 025 [facility], [address], [place], [address], 08/19/2025 17:48:15 losartan 25 mg tablet 2024 025 [facility], [address], [place], [address], 08/19/2025 17:48:14 bisoprolo l fumarate 5 mg tablet 2024 025 [place] [address] [facility], [address], [place], [address], 08/19/2025 17:48:17 rosuvasta tin 10 mg tablet 2024 025 [place] [address] - [facility], [address], [place], [address], 08/19/2025 17:48:17 clopidogr el 75 mg tablet 2024 025 [facility] [address] [place] [address] RX, [address], [place], [address], 08/19/2025 17:48:19 gabapenti n 400 mg capsule [address] RX, [address], [place], [address], 08/19/2025 17:48:26 Jardiance 10 mg tablet 2024 025 [facility] [address] [place] [address] RX, [address], [place], [address], 05/27/2025 16:43:55 metformin ER 500 mg tablet,ex tended release 24 hr [address] RX, [address], [place], [address], 05/27/2025 16:43:56 gabapenti n 400 mg capsule 2024 025 [place] [address] - [facility], [address], [place], [address], 05/27/2025 16:43:56 neomycin- polymyxin -hydrocor t 3.5 mg-10,000 unit/mL-1 % ear drops,audrey p 2024 025 [place] [address] - [facility], [address], [place], [address], 05/27/2025 16:21:45 aspirin 81 mg tablet,de layed release 2024 025 [place] [address] - [facility], [address] [facility], [place], [address], 02/25/2025 08:51:41 Jardiance 10 mg tablet 2024 025 [place] [address] - [facility], [address] [place] [address], [place], [address], 02/25/2025 08:51:28 metformin ER 500 mg tablet,ex tended release 24 hr 2024 025 [place] [address] - [facility], [address] [facility] [address], [address], 02/25/2025 08:51:25 Mounjaro 2.5 mg/0.5 mL subcutane ous pen injector 2024 025 [place] [address] - [facility], [address], [place], [address], 05/27/2025 16:17:24 cyclobenz aprine 5 mg tablet 2024 025 [facility] 72 - [facility], [address], [place], [address], 02/25/2025 08:51:31 losartan 25 mg tablet 2024 025 [place] [address] - [facility], [address], [place], [address], 02/25/2025 08:51:27 bisoprolo l fumarate 5 mg tablet 2024 025 [place] [address] - [facility], [address], [place], [address], 02/25/2025 08:51:33 rosuvasta tin 10 mg tablet 2024 025 [place] [address] - [facility], [address], [place], [address], 02/25/2025 08:51:41 clopidogr el 75 mg tablet 2024 025 [place] [address] - [facility], [address], [place], [address], 07/08/2025 14:53:19 diclofena c sodium 50 mg tablet,de layed release 2024 025 [place] [address] - [facility], [address], [place], [address], 02/25/2025 08:51:34 valacyclo vir 500 mg tablet 2024 025 [place] [address] - [facility], [address], [address], 02/25/2025 08:51:36 fluticaso ne propionat e 50 mcg/actua tion nasal spray,audrey pension 2024 025 [facility], [address], [place], [address], 02/25/2025 08:51:39 gabapenti n 400 mg capsule 2024 025 [facility], [address], [place], [address], 02/25/2025 08:51:41 Patient TargetsNo targets recorded. Patient InstructionsNo instructions recorded. Reason for Referral None Reported. Results Created Date Observation Date Name Description Value Unit Range Abnormal Flag Note LastModifiedBy Organization Detail LastModifiedTime 02/26/2002/26/2025 CBC WITH DIFFE RENTI AL/PL ATELE T WBC 5.5 x10e3 /uL 3.4-10 .8 normal Not Available [facility] ([facility]) [address] [place], [address], 02/26/2025 12:12:01 02/26/2002/26/2025 CBC WITH DIFFE RENTI AL/PL ATELE T RBC 3.87 x10e6 /uL 3.77-5 .28 normal Not Available [facility] ([facility]) [address] [place], [address], 02/26/2025 12:12:01 02/26/2002/26/2025 CBC WITH DIFFE RENTI AL/PL ATELE T hemoglobin 12.5 g/dL 11.1-1 5.9 normal Not Available [facility] ([facility]) [address] [place], [address], 02/26/2025 12:12:01 02/26/2002/26/2025 CBC WITH DIFFE RENTI AL/PL ATELE T hematocrit 37.4 % 34.0-4 6.6 normal Not Available [facility] ([facility]) [address] [place], [address], 02/26/2025 12:12:01 02/26/20 25 02/26/2025 CBC WITH DIFFE RENTI AL/PL ATELE T MCV 97 fL 79-97 normal Not Available [facility] ([facility]) [address] [place], [address], 02/26/2025 12:12:01 02/26/2002/26/2025 CBC WITH DIFFE RENTI AL/PL ATELE T MCH 32.3 pg 26.6-3 3.0 normal Not Available [facility] ([facility]) [address] [place], [address], 02/26/2025 12:12:01 02/26/20 25 02/26/2025 CBC WITH DIFFE RENTI AL/PL ATELE T MCHC 33.4 g/dL 31.5-3 5.7 normal Not Available [facility] ([facility]) [address] [place], [address], 02/26/2025 12:12:01 02/26/20 25 02/26/2025 CBC WITH DIFFE RENTI AL/PL ATELE T RDW 12.5 % 11.7-1 5.4 Not Available [facility] ([facility]) [address] [place], [address], 02/26/2025 12:12:01 02/26/20 25 02/26/2025 CBC WITH DIFFE RENTI AL/PL ATELE T platelets 204 x10e3 /uL 150-45 0 normal Not Available [facility] ([facility]) [address] [place], [address], 02/26/2025 12:12:01 02/26/20 25 02/26/2025 CBC WITH DIFFE RENTI AL/PL ATELE T neutrophils 75 % not estab. normal Not Available [facility] ([facility]) [address] [facility], [place], [address], 02/26/2025 12:12:01 02/26/20 25 02/26/2025 CBC WITH DIFFE RENTI AL/PL ATELE T lymphs 17 % not estab. normal Not Available [facility] ([facility]) [address] [facility], [place], [address], 02/26/2025 12:12:01 02/26/20 25 02/26/2025 CBC WITH DIFFE RENTI AL/PL ATELE T monocytes 6 % not estab. normal Not Available [facility] ([facility]) [address] [facility], [place], [address], 02/26/2025 12:12:01 02/26/20 25 02/26/2025 CBC WITH DIFFE RENTI AL/PL ATELE T eos 2 % not estab. normal Not Available [facility] ([facility]) [address] [facility], [place], [address], 02/26/2025 12:12:02/26/20 25 02/26/2025 CBC WITH DIFFE RENTI AL/PL ATELE T basos 0 % not estab. normal Not Available [facility] ([facility]) [address] [facility], [place], [address], 02/26/2025 12:12:01 02/26/20 25 02/26/2025 CBC WITH DIFFE RENTI AL/PL ATELE T immature cells OFFICE MESSENGER Not Available [facility] ([facility]) [address] [place], [address], 02/26/2025 12:12:01 02/26/20 25 02/26/2025 CBC WITH DIFFE RENTI AL/PL ATELE T neutrophils (absolute) 4.1 x10e3 /uL 1.4-7. 0 normal Not Available [facility] ([facility]) [address] [facility], [place], [address], 02/26/2025 12:12:01 02/26/20 25 02/26/2025 CBC WITH DIFFE RENTI AL/PL ATELE T lymphs (absolute) 1.0 x10e3 /uL 0.7-3. 1 normal Not Available [facility] ([facility]) [address] [facility], [place], [address], 02/26/2025 12:12:01 02/26/20 25 02/26/2025 CBC WITH DIFFE RENTI AL/PL ATELE T monocytes(ab solute) 0.3 x10e3 /uL 0.1-0. 9 normal Not Available [facility] ([facility]) [address] [facility], [place], [address], 02/26/2025 12:12:01 02/26/20 25 02/26/2025 CBC WITH DIFFE RENTI AL/PL ATELE T eos (absolute) 0.1 x10e3 /uL 0.0-0. 4 normal Not Available [facility] ([facility]) [address] [facility], [place], [address], 02/26/2025 12:12:01 02/26/20 25 02/26/2025 CBC WITH DIFFE RENTI AL/PL ATELE T baso (absolute) 0.0 x10e3 /uL 0.0-0. 2 normal Not Available [facility] ([facility]) [address] [facility], [place], [address], 02/26/2025 12:12:01 02/26/20 25 02/26/2025 CBC WITH DIFFE RENTI AL/PL ATELE T immature granulocytes 0 % not estab. Not Available [facility] ([facility]) [address] [facility], [place], [address], 02/26/2025 12:12:01 02/26/20 25 02/26/2025 CBC WITH DIFFE RENTI AL/PL ATELE T immature grans (abs) 0.0 x10e3 /uL 0.0-0. 1 Not Available [facility] ([facility]) [address] [facility], [place], [address], 02/26/2025 12:12:01 02/26/20 25 02/26/2025 CBC WITH DIFFE RENTI AL/PL ATELE T NRBC OFFICE MESSENGER Not Available [facility] ([facility]) [address] [facility], [place], [address], 02/26/2025 12:12:01 02/26/20 25 02/26/2025 CBC WITH DIFFE RENTI AL/PL ATELE T hematology comments: OFFICE MESSENGER Not Available [facility] ([facility]) [address] [facility], [place], [address], 02/26/2025 12:12:01 02/26/20 25 02/26/2025 COMP. METAB OLIC PANEL (14) glucose 153 mg/dL 70-99 above high normal Not Available [facility] ([facility]) [address] [facility], [place], [address], 02/26/2025 12:12:02 02/26/20 25 02/26/2025 COMP. METAB OLIC PANEL (14) BUN 24 mg/dL 8-27 normal Not Available [facility] ([facility]) [address] [place], [address], 02/26/2025 12:12:02 02/26/20 25 02/26/2025 COMP. METAB OLIC PANEL (14) creatinine 0.89 mg/dL 0.57-1 .00 normal Not Available [facility] ([facility]) [address] [place], [address], 02/26/2025 12:12:02 02/26/20 25 02/26/2025 COMP. METAB OLIC PANEL (14) eGFR 74 mL/mi n/1.7 3 >59 normal Not Available [facility] ([facility]) [address] [facility] [place], [address], 02/26/2025 12:12:02 02/26/20 25 02/26/2025 COMP. METAB OLIC PANEL (14) BUN/creatini ne ratio 27 12-28 normal Not Available [facility] ([facility]) [address] [facility] [place], [address], 02/26/2025 12:12:02 02/26/20 25 02/26/2025 COMP. METAB OLIC PANEL (14) sodium 141 mmol/ L 134-14 4 normal Not Available [facility] ([facility]) [address] [facility] [place], [address], 02/26/2025 12:12:02 02/26/20 25 02/26/2025 COMP. METAB OLIC PANEL (14) potassium 5.5 mmol/ L 3.5-5. 2 above high normal Not Available [facility] ([facility]) [address] [facility], [place], [address], 02/26/2025 12:12:02 02/26/20 25 02/26/2025 COMP. METAB OLIC PANEL (14) chloride 104 mmol/ L 96-106 normal Not Available [facility] ([facility]) [address] [facility] [place], [address], 02/26/2025 12:12:02 02/26/20 25 02/26/2025 COMP. METAB OLIC PANEL (14) carbon dioxide, total 23 mmol/ L 20-29 normal Not Available [facility] ([facility]) [address] [facility] [place], [address], 02/26/2025 12:12:02 02/26/20 25 02/26/2025 COMP. METAB OLIC PANEL (14) calcium 10.1 mg/dL 8.7-10 .3 normal Not Available [facility] ([facility]) [address] [place], [address], 02/26/2025 12:12:02 02/26/20 25 02/26/2025 COMP. METAB OLIC PANEL (14) protein, total 6.4 g/dL 6.0-8. 5 normal Not Available [facility] ([facility]) [address] [place], [place], [address], 02/26/2025 12:12:02 02/26/20 25 02/26/2025 COMP. METAB OLIC PANEL (14) albumin 4.7 g/dL 3.8-4. 9 normal Not Available [facility] ([facility]) [address] [place], [address], 02/26/2025 12:12:02 02/26/20 25 02/26/2025 COMP. METAB OLIC PANEL (14) globulin, total 1.7 g/dL 1.5-4. 5 Not Available [facility] ([facility]) [address], [place], [address], 02/26/2025 12:12:02 02/26/20 25 02/26/2025 COMP. METAB OLIC PANEL (14) bilirubin, total 0.2 mg/dL 0.0-1. 2 normal Not Available [facility] ([facility]) [address] [facility], [place], [address], 02/26/2025 12:12:02 02/26/20 25 02/26/2025 COMP. METAB OLIC PANEL (14) alkaline phosphatase 93 IU/L 44-121 normal Not Available [facility] ([facility]) [address], [place], [address], 02/26/2025 12:12:02 02/26/20 25 02/26/2025 COMP. METAB OLIC PANEL (14) AST (SGOT) 43 IU/L 0-40 above high normal Not Available [facility] ([facility]) [address] [facility], [place], [address], 02/26/2025 12:12:02 04/15/20 25 02/26/2025 COMP. METAB OLIC PANEL (14) ALT (SGPT) 57 IU/L 0-32 above high normal Not Available [facility] ([facility]) [address] [facility], [place], [address], 02/26/2025 12:12:02 02/26/20 25 02/26/2025 LIPID PANEL cholesterol, total 131 mg/dL 100-19 9 normal Not Available [facility] ([facility]) [address] [place], [address], 02/26/2025 12:12:02 02/26/20 25 02/26/2025 LIPID PANEL triglyceride s 117 mg/dL 0-149 normal Not Available [facility] ([facility]) [address] [place], [address], 02/26/2025 12:12:02 02/26/20 25 02/26/2025 LIPID PANEL HDL cholesterol 45 mg/dL >39 normal Not Available [facility] ([facility]) [address] [place], [address], 02/26/2025 12:12:02 02/26/20 25 02/26/2025 LIPID PANEL VLDL cholesterol ugo 21 mg/dL 5-40 Not Available [facility] ([facility]) [address] [place], [address], 02/26/2025 12:12:02 02/26/20 25 02/26/2025 LIPID PANEL LDL chol calc ([facility]) 65 mg/dL 0-99 Not Available [facility] ([facility]) [address] [place], [address], 02/26/2025 12:12:02 02/26/20 25 02/26/2025 LIPID PANEL LDL calc comment: OFFICE MESSENGER Not Available [facility] ([facility]) [address] [place], [address], 02/26/2025 12:12:02 02/26/20 25 02/26/2025 VITAM IN B12 AND FOLAT E vitamin B12 1146 pg/mL 232-12 45 normal Not Available [facility] ([facility]) [address] [facility], [place], [address], 02/26/2025 12:12:03 02/26/2002/26/2025 VITAM IN B12 AND FOLAT E folate (folic acid), serum >20.0 NG/mL >3.0 A serum folat e matt ntrat ion of less than 3.1 ng/mL is consi dered to repre sent clini ugo defic iency . Not Available [facility] ([facility]) [address] [facility], [place], [address], 02/26/2025 12:12:03 02/26/2002/26/2025 HEMOG LOBIN A1C hemoglobin A1C 7.0 % 4.8-5. 6 above high normal Predi abete s: 5.7 - 6.4 Diabe mello: >6.4 Glyce mary contr ol for adult s with diabe mello: <7.0 Not Available [facility] ([facility]) [address] [facility], [place], [address], 02/26/2025 12:12:04 02/26/2002/26/2025 VITAM IN D, 25-HY DROXY vitamin D, [...] 1. IOM (Inst itute of Medic ine). 2010. Dieta ry refer ence roshan es for calci um and D. Izaiah santos [place]: The [employer] nal [employer] . 2. Tia benavides MF, Rangel su [place], Francy off-F errar i BEASLEY, et al. Evalu ation , treat ment, and preve ntion of vitam in D defic iency : an Endoc rine Socie ty clini ugo pract ice guide line. JCEM. 2010; 96(7) :1911 -30. Not Available [facility] ([facility]) [address] [facility], [place], [address], 02/26/2025 12:12:04 02/26/20 25 02/26/2025 MAGNE SIUM magnesium 2.7 mg/dL 1.6-2. 3 above high normal Not Available [facility] ([facility]) [address] [facility], [place], [address], 02/26/2025 12:12:04 02/26/20 25 02/25/2025 drug scree n, urine THC negati ve Not Available [address], [address], 02/25/2025 08:48:18 02/26/20 25 02/25/2025 drug scree n, urine TCA negati ve Not Available [address], [address], 02/25/2025 08:48:18 02/26/20 25 02/25/2025 drug scree n, urine BAR negati ve Not Available [address], [address], 02/25/2025 08:48:18 02/26/20 25 02/25/2025 drug scree n, urine BZO negati ve Not Available [address], [address], 02/25/2025 08:48:18 02/26/20 25 02/25/2025 drug scree n, urine MTD negati ve Not Available [address], [address], 02/25/2025 08:48:18 02/26/20 25 02/25/2025 drug scree n, urine AMP negati ve Not Available [address], [address], 02/25/2025 08:48:18 02/26/20 25 02/25/2025 drug scree n, urine MOP negati ve Not Available [address], [address], 02/25/2025 08:48:18 02/26/20 25 02/25/2025 drug scree n, urine OXY negati ve Not Available [address], [address], 02/25/2025 08:48:18 02/26/20 25 02/25/2025 drug scree n, urine MDMA negati ve Not Available [address], [address], 02/25/2025 08:48:18 02/26/2002/25/2025 drug scree n, urine PATRICIO negati ve Not Available [address], [address], 02/25/2025 08:48:18 02/26/20 25 02/25/2025 drug scree n, urine PCP negati ve Not Available [address], [address], 02/25/2025 08:48:18 02/26/20 25 02/25/2025 drug scree n, urine MET negati ve Not Available [address], [place], [place], [address], 02/25/2025 08:48:18 03/10/20 25 03/10/2025 XR, foot, 3 or more view No observ ation [facility] ed. [facility] [address], [address], 03/11/2025 08:08:33 03/25/20 25 03/25/2025 CT, foot, w/o contr ast No observ ation record ed. [place] [id number], [address], 03/25/2025 13:49:22 03/25/20 25 03/25/2025 ankle brach ial index No observ ation record ed. [place] [id number], [address], 03/25/2025 17:51:20 03/26/20 25 03/26/2025 elect antoinette xiegr am No observ ation record ed. [place] [id number], [address], 03/27/2025 08:18:25 03/26/20 25 03/26/2025 XR, foot, 3 or more view No observ ation record ed. [place] [id number], [address], 03/27/2025 08:43:06 05/20/20 25 05/20/2025 XR, foot, 3 or more view No observ ation record ed. [place] [id number] [place], [address], 05/23/2025 08:22:56 06/29/20 25 06/27/2025 XR, hip + pelvi s, unila teral , 2 or 3 view No observ ation record ed. [facility] [address], [place], [address], 07/02/2025 10:33:31 06/29/20 25 06/27/2025 XR, ribs, unila teral , w/ PA chest No observ ation record ed. [facility] (X-Ray) [address], [place], [address], 07/02/2025 10:33:42 07/02/20 25 06/27/2025 US, breas t, unila teral , compl ete No observ ation record ed. [facility] [address], [place], [address], 07/04/2025 11:56:53 Result Notes None recorded. Problems Name Problem SNOMED Code Status Onset Date Resolution Date Notes Provider Name and Address Organization Details Recorded Time Diabetes mellitus 59476286 Active Not Available [facility] 3 03:20:06 Neuropathy 915836405 Active 2021 Not Available [facility] 3 03:20:05 Arthritis 2169153 Active 2022 Not Available [facility] 3 03:20:05 Basal cell carcinoma of skin 577813858 Active 2022 Sarahkat Mccord, SYSTEMS [employer]OTECTION TECHNICIAN [address], [place], [address] , [place] - [facility] 3 10:22:52 Coronary arteriosclero sis 21180441 Active 2024 Sarahkat Mccord, SYSTEMS PROTECTION TECHNICIAN [address], [place], [address] , [place] - [facility] 5 08:50:23 Problem Notes None recorded. Procedures Surgical History Date Name Laterality Status Provider Name and Address Organization Details Recorded Time 04/14/20 25 Medication Reconcilliation completed Zenaida Stears [place] - [facility] 04/14/2025 09:55:25 03/26/20 25 amputation of toe completed Zenaida Stears [place] - [facility] 04/14/2025 10:07:57 06/18/20 24 EXCISION OF CYST (SURG) completed Jennifer Mccord, SYSTEMS PROTECTION TECHNICIAN [address], [place] [place], [address], [place] [facility] 06/20/2024 08:09:44 05/23/20 24 EXCISION OF CYST (SURG) completed Jennifer Mccord, SYSTEMS PROTECTION TECHNICIAN [address], [place], [address], [place] [facility] 05/24/2024 08:41:37 03/16/20 24 EXCISION OF CYST (SURG) completed Jennifer Mccord, SYSTEMS PROTECTION TECHNICIAN [address], [place], [address], [place] [facility] 04/16/2024 15:15:10 02/13/20 22 [...] Not Available gabapenti n 400 mg capsule TAKE 1 CAPSULE BY MOUTH THREE TIMES DAILY active Not Available Not Available No t Available clobetaso l 0.05 % topical cream APPLY 1 GRAM OF CREAM TOPICALL Y TWICE DAILY FOR RASH ON LEFT FOOT FOR 4 WEEKS active Not Available Not Available No t Available clopidogr el 75 mg tablet Take 1 tablet every day by oral route. 10/07/ 2025 active Not Available Not Available Not Avai lable valacyclo vir 500 mg tablet TAKE 1 [...] 10 DAYS -- FINISH ALL MEDICINE -- 08/19 completed Not Available Not Available Not Available doxycycli ne monohydra te 100 mg [...] Available Not Available losartan 25 mg tablet Take 1 tablet every day by oral route. 2024 active Not Available Not Available Not Avai lable hydrochlo rothiazid e 12.5 mg capsule TAKE [...] Not Available cyclobenz aprine 5 mg tablet TAKE 1 TABLET BY MOUTH ONCE DAILY NEEDED active Not Available Not Available No t Available rosuvasta tin 10 mg tablet Take 1 tablet every day by oral route at bedtime. 2024 active Not Available Not Available Not [...] 10 mg/0.5 mL subcutane ous pen injector Inject 10 mg every week by subcutan eous route. 2024 active Not Available Not Available Not Avai lable Mounjaro 12.5 mg/0.5 mL subcutane ous pen injector INJECT 1 PEN SUBCUTAN EOUSLY ONCE A WEEK 07/08 completed made patient sick/vom iting Not Available Not Available Not Available Mounjaro 2.5 mg/0.5 mL subcutane ous [...] 0-10 verbal numeric rating [Score] - Reported Oxygen saturation Oxygen saturation in Arterial blood by Pulse oximetry Heart rate Body temperature Respiratory rate Systolic And Diastolic Provider Name and Address Organization Details Last Updated DateTime 5 175.26 cm 28.2 kg/m2 75455.1 4 g 0 98 % 98 % 84 /min 98.1 [degF] 16 /min 112/68 mm[Hg] Sara Chacko [place] - [facility] 5 08:17:43 Date Recorded Body height Body temperature Respiratory rate Heart rate Oxygen saturation Oxygen saturation in Arterial blood by Pulse oximetry Systolic And Diastolic Provider Name and Address Organization Details Last Updated DateTime 5 175.26 cm 98 [degF] 18 /min 78 /min 100 % 100 % 118/76 mm[Hg] Zenaida Rae [place] - [facility] 5 10:05:20 Date Recorded Body height Body mass index (BMI) Body weight Oxygen saturation Oxygen saturation in Arterial blood by Pulse oximetry Respiratory rate Pain severity - 0-10 verbal numeric rating [Score] - Reported Heart rate Systolic And Diastolic Provider Name and Address Organization Details Last Updated DateTime 5 175.26 cm 27.8 kg/m2 34502.3 7 g 98 % 98 % 18 /min 0 79 /min 118/78 mm[Hg] Sara Chacko [place] - [facility] 5 16:25:53 Date Recorded Body height Body mass index (BMI) Body weight Heart rate Oxygen saturation Oxygen saturation in Arterial blood by Pulse oximetry Body temperature Respiratory rate Pain severity - 0-10 verbal numeric rating [Score] - Reported Systolic And Diastolic Provider Name and Address Organization Details Last Updated DateTime 175.26 cm 27.6 kg/m2 03936.7 7 g 78 /min 97 % 97 % 98 [degF] 18 /min 0 122/76 mm[Hg] Sara Chacko [place] - [facility] 5 16:39:30 Date Recorded Body height Respiratory rate Body mass index (BMI) Body weight Heart rate Oxygen saturation Oxygen saturation in Arterial blood by Pulse oximetry Body temperature Systolic And Diastolic Provider Name and Address Organization Details Last Updated DateTime 5 175.26 cm 18 /min 26.9 kg/m2 83395.8 1 g 76 /min 94 % 94 % 98 [degF] 126/78 mm[Hg] Zenaida Butch [place] - [facility] 5 17:05:51 Social History Question Answer Notes LastModified by Soil IQ[employer] ion Details LastModified Time Tobacco Smoking Status Former Smoker Sara Chacko [facility], [place] - [facility] 06/17/2022 09:06:11 Do You [...] Or The Highest Degree You Have Received? [id number] Information not available 06/17/2022 When Did You Quit Smoking? 11-15yearssi jimmy tobin Information not available 06/17/2022 What Was [...] 04/14/2025 Are you able to care for yourself independently? Yes Information not available 06/17/2022 Do you have difficulty dressing, bathing, grooming, or toileting? No Information not available 04/14/2025 Do you [...] not available 06/17/2022 Are you able to walk independently without assistance or assistive devices? YESWOREST Information not available 04/14/2025 Do you have difficulty doing errands alone? 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 [id number] Information not available 06/17/2022 Do you have [...] 09:06:10 Medical History Condition Response Diabetes Y Neuropathy Y Arthritis Y Gynecological History Statement/Question Response Abnormal Pap Yes Date of Last Mammogram 07/14/2021 Date of LMP 11/13/2005 Post Menopausal Bleeding N STIs/STDs Y Colposcopy 08/22/2021 HPV Vaccine N Current Control Method None Age at Menarche 17 Age at First Child 24 If Post Menopausal, Age at Menopause 41 Date of Last Colonoscopy 07/14/2021 Sexually Active? Y Menses Monthly N Date of Last Pap Smear 02/12/2022 Sexual Problems? N LMP Approximate Hormone Replacement Therapy N Obstetrics History GPAL:G 2 P 2 0 0 2 Type Value Multiple Births 0 Full Term 2 Induced 0 Spontaneous 0 Premature 0 Living 2 Ectopics 0 Total 2 Immunizations Vaccine Type Date Status Note Provider Name and Address Organization Details Recorded Time Pneumococcal conjugate PCV20, polysaccharide REK245 conjugate, adjuvant, PF 025 cancelled patient objection Jennifer Chesterwil, SYSTEMS PROTECTION TECHNICIAN [address], [place], [address], [place] [facility] 08/19/2025 17:51:05 Tdap 025 cancelled patient objection Sarahvishnuangi Chesterwil, SYSTEMS PROTECTION TECHNICIAN [address], [place], [address], [place] [facility] 08/19/2025 17:51:05 zoster recombinant 020 completed Not Available [facility] 05/09/2023 03:20:06 zoster recombinant 021 completed Not Available [facility] 05/09/2023 03:20:06 Influenza, split virus, quadrivalent, preservative 021 completed Not Available [facility] 12/21/2023 15:47:54 Influenza, split virus, quadrivalent, PF 017 completed Not Available [facility] 05/09/2023 03:20:06 influenza, split (incl. purified surface antigen) 013 completed Not Available [facility] 05/09/2023 03:20:06 Influenza, split virus, quadrivalent, PF 020 completed Not Available [facility] 05/09/2023 03:20:06 Hep A-Hep B 019 completed Not Available [facility] 05/09/2023 03:20:06 Hep A-Hep B 018 completed Not Available [facility] 05/09/2023 03:20:06 Influenza, split virus, quadrivalent, PF 019 completed Not Available [facility] 05/09/2023 03:20:06 Hep A-Hep B 018 completed Not Available [facility] 05/09/2023 03:20:06 Influenza, split virus, quadrivalent, PF 018 completed Not Available [facility] 05/09/2023 03:20:06 Influenza, split virus, quadrivalent, PF 021 completed Not Available [facility] 05/09/2023 03:20:06 Past Encounters Encounter ID Performer Location Encounter Start Date Encounter Closed Date Diagnosis/Indication Diagnosis SNOMED-CT Code Diagnosis ICD10 Code Diagnosis IMO Codes Diagnosis Note [id number] Jennifer Mccord [address] [address] 06/17/2022 08:39:44 06/17/2022 09:46:16 Diabetes mellitus 57258867 E11.9 Overall, pt doing well at this [...] Measures:M etformin: yesACE/ARB :yesASA:ye sStatin:ye sGLP:yes Neuropathy 408976113 G62 .9 Pt compliant with plan of careKasper reviewedme dication compliance discussedc sa obtainedud s today Seasonal allergy 7720622 04 J30.2 [id number] Jennifer Mccord [address] [address] 09/16/2022 13:15:41 09/16/2022 13:48:35 Neuropathy 208497059 G62.9 Pt compliant with plan of careKasper reviewedme dication compliance discussedc obtainedud s:09/16/22 Diabetes mellitus 134036 09 E11.9 Long-term drug therapy 098774107 Z79.899 Liver enzy mes level above reference range 614650322 R74.8 [id number] Jennifer Mccord [address] [address] 12/06/2022 13:49:27 12/06/2022 14:42:57 Diabetes mellitus 58755209 E11.9 *Diabetic Measures:M etformin:y esACE/ARB: yesASA:yes Statin:yes GLP:yes Neuropathy 932777598 G62 .9 Pt compliant with plan of careKasper reviewedme dication compliance discussedc obtainedud s:09/16/22 Acute maxi llary sinusitis 45585350 J01.00 Arthritis 7478247 M19.90 Edema of l ower extremity 579408043 R60.0 Paresthesi a of lower extremity 971377528 R20.2 Spasm of back muscles 20 8747379 M62.517 [id number] Jennifer Mccord [address] [address] 03/13/2023 08:06:09 03/13/2023 09:21:28 Diabetes mellitus 32491269 E11.9 *Diabetic Measures:M etformin:y esACE/ARB: yesASA:yes Statin:yes GLP:yes Arthritis 2473495 M19.90 Neuropathy 665907508 G62 .9 Pt compliant with plan of careKasper reviewedme dication compliance discussedc sa obtainedud s:09/16/22 Type 2 zulma betes mellitus 02350582 E11.9 Liver enzy mes level above reference range 368527573 R74.8 Intermitte nt palpitations 661259063 R00.2 Varicose v eins of lower extremity 93998581 I83.91 Acute maxi llary sinusitis 09113747 J01.00 follow up with ent as scheduled [id number] Jennifer Mccord [address] [address] 06/22/2023 13:44:06 06/22/2023 14:47:35 Diabetes mellitus 59503927 E11.9 *Diabetic Measures:M etformin:y esACE/ARB: yesASA:yes Statin:yes GLP:yes Spasm of back muscles 20 2015946 M62.830 Neuropathy 528728261 G62 .9 Pt compliant with plan of careKasper reviewedme dication compliance discussedc sa obtainedud s:03/13/23 Type 2 zulma betes mellitus 79604535 E11.9 Seasonal a llergic rhinitis 875434918 J30.2 follow up with ent as scheduled [id number] Jennifer Mccord [address] [address] 07/27/2023 13:48:57 07/27/2023 15:05:59 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 E13.621 will refer to podiatryme ds as orderedret urn if symptoms worsen [id number] Jennifer Mccord [address] [address] 09/21/2023 08:42:56 09/21/2023 10:32:38 Neuropathy 644083932 G62.9 Pt compliant with plan of careKasper reviewedme dication compliance discussedc sa obtainedud s:09/21/23t rial of increase in gabapentin to 400mg po bidpt will call and I will send lower dose if needed Arthritis 4293071 M19.90 Diabetes mellitus 625399 09 E11.9 *Diabetic Measures:M etformin:y esACE/ARB: yesASA:yes Statin:yes GLP:yes Cyst of skin 795773584 L 72.9 Basal cell carcinoma of skin 078615329 C44.91 follow up with dermatolog y [id number] Jennifer Mccord [address] [address] 12/21/2023 15:47:46 12/21/2023 16:51:31 Diabetes mellitus 20385667 E11.9 *Diabetic Measures:M etformin:y esACE/ARB: yesASA:yes Statin:yes GLP:yesa1c 6.3% Spasm of back muscles 20 2398857 M62.830 Arthritis 3063928 M19.90 Gastroesop hageal reflux disease without esophagitis 115950003 K21.9 Neuropathy 532919264 G62 .9 Pt compliant with plan of careKasper reviewedme dication compliance discussedc sa obtainedud s:09/21/23t rial of increase in gabapentin to 400mg po bidpt will call and I will send lower dose if needed Herpes simplex 54274390 B00.9 [id number] Jennifer Mccord[address] [place] [address] 03/21/2024 15:33:07 03/21/2024 16:30:28 Diabetes mellitus 86880534 E11.9 *Diabetic Measures:M etformin:y esACE/ARB: yesASA:yes Statin:yes GLP:yesa1c 6.3%will have labs prior to surgery- asked pt for copy of those labs once resulted Neuropathy 001635139 G62 .9 Pt compliant with plan of careKasper reviewedme dication compliance discussedc sa obtainedud s:03/21/24tr ial of increase in gabapentin to 400mg po bidpt will call and I will send lower dose if needed Arthritis 0578493 M19.90 Long-term current use of drug therapy 001277550 Z79.125 [id number] Jennifer Mccord SYSTEM[employer] PROTECTION TECHNICIAN [address] [address] 04/11/2024 15:35:20 04/11/2024 16:22:43 Neuropathy 309191004 G62.9 Pt compliant with plan of careKasper reviewedme dication compliance discussedc sa obtainedud s:03/21/24tr ial of increase in gabapentin to 400mg po bidpt will call and I will send lower dose if needed Diabetes mellitus 432326 09 E11.9 *Diabetic Measures:M etformin:y esACE/ARB: yesASA:yes Statin:yes GLP:yesa1c 6.3%will have labs prior to surgery- asked pt for copy of those labs once resulted Pain of le ft knee joint 8747810478 16927 M25.562 off work until after surgery [id number] Jennifer Mccord [address] [address] 06/04/2024 09:07:10 06/04/2024 10:03:25 Diabetes mellitus 62594430 E11.9 *Diabetic Measures:M etformin:y esACE/ARB: yesASA:yes Statin:yes GLP:yesa1c 6.3% Neuropathy 403538951 G62 .9 Pt compliant with plan of careKasper reviewedme dication compliance discussedc sa obtainedud s:03/21/24tr ial of increase gabapentin to 400 mg tid so pt can hold difluac Spasm of back muscles 20 5119610 M62.830 Arthritis 7959266 M19.90 Seasonal a llergic rhinitis 805836499 J30.2 follow up with ent as scheduled [id number] [facility] [place] [address] 09/03/2024 15:21:19 09/03/2024 16:12:16 Neuropathy 986515659 G62.9 Pt compliant with plan of Kristina reviewedme dication compliance discussedc sa obtainedud s:03/21/24 Arthritis 8389454 M19.90 Spasm of back muscles 20 1857554 M62.830 Diabetes mellitus 174331 09 E11.9 *Diabetic Measures:M etformin:y esACE/ARB: yesASA:yes Statin:yes GLP:yesa1c 6.3% Type 2 zulma betes mellitus 20695470 E11.9 [id number] [facility] [place] [id number] 09/12/2024 07:56:03 09/12/2024 08:47:28 Type 2 diabetes mellitus 55161031 E11.9 [id number] [place] [address] 12/02/2024 09:32:14 12/02/2024 10:23:36 Diabetes mellitus 32588041 E11.9 *Diabetic Measures:M etformin:y esACE/ARB: yesASA:yes Statin:yes GLP:yesa1c 6.3% Arthritis 3074866 M19.90 [id number] [place] [id number] 02/25/2025 08:09:31 02/25/2025 09:05:42 Diabetes mellitus 55625037 E11.9 *Diabetic Measures:M etformin:y esACE/ARB: yesASA:yes Statin:yes GLP:yesa1c 6.3% Spasm of back muscles 20 5357759 M62.830 Arthritis 4115786 M19.90 Seasonal a llergic rhinitis 387763238 J30.2 follow up with ent as scheduled Neuropathy 143578446 G62 .9 Pt compliant with plan of careKasper reviewedme dication compliance discussedc sa obtainedud s:02/25/25 Herpes simplex 06099692 B00.9 Bilateral cramp of muscle of lower limbs 3986115677 0269981 R25.2 27890260 Long-term current use of drug therapy 737753884 Z79.899 98124614 Essential hypertension 31501778 I10 75954 Coronary arteriosclerosis 38732985 I25.10 70489245 Otitis externa 5432568 H 60.8X1 1557769 [id number] Jennifer Mccord [place] [id number] 04/14/2025 09:43:12 04/14/2025 10:49:03 Amputated toe of right foot 785042793 S98.131A [id number] follow up with Dr Weathers. [id number] Jennifer Mccord [address] [address] 05/27/2025 15:19:58 05/27/2025 16:45:54 Diabetes mellitus 88564521 E11.9 *Diabetic Measures:M etformin:y esACE/ARB: yesASA:yes Statin:yes GLP:yesa1c 7.9% Neuropathy 689528115 G62 .9 Pt compliant with plan of careKasper reviewedme dication compliance discussedc sa obtainedud s:02/25/25 [id number] Jennifer Mccord [address] [address] 06/23/2025 16:24:51 06/23/2025 16:51:21 Accidental fall 773526364 W19.XXXA 6915049 tylenol as neededxray sif worsen or new symptoms return or go to [facility] for comfort [id number] Jennifer Mccord [address] [address] 08/19/2025 16:39:19 08/19/2025 17:42:20 Type 2 diabetes mellitus 00831330 E11.9 *Diabetic Measures:M etformin:y esACE/ARB: yesASA:yes Statin:yes GLP:yesa1c 7.9% Coronary arteriosclerosis 46403487 I25.10 Essential hypertension 97619104 I10 Arthritis 8388972 M19.90 Spasm of back muscles 20 4175079 M62.830 Neuropathy 575417749 G62 .9 Pt compliant with plan of careKasper reviewedme dication compliance discussedc obtainedud s:02/25/25 Pneumococc al vaccination declined 000283920 Z28.21 27253656 Tetanus di phtheria and acellular pertussis vaccination declined 7564574243 0295237 Z28.21 7472619204 HIV screen ing declined 3555557819 58226 Z53.20 4148112404 Vaccination declined 983 1996261 Z28.21 Seasonal flu vaccine offered and declined Malaise and fatigue 2717 32228 R53.81 R53.83 56261 Long-term current use of drug therapy 186058776 Z79.899 63464811 Health Concerns Section Related Observation LastModified by Organization Detai ls LastModified Time None Recorded Concern Status LastModified by Organization Details LastModified Time None Recorded Advance Directives Directive N: Payers Insurance Date Sequence Insurance Name Policy Number Policy Gregorio Covered Member ID Gregorio Member ID Guarantor Name 08/16/2025 1 [place] [id number] Zehra Saini Sanor [id number] Zehra Shepherd Notes Date Note Type Note Provider Name and Address Organization Details Recorded Time 02/25/2025 text/html 59 yr old female presents for a diabetic follow up. She has noticed her [employer] isn't working anymore. Her blood sugars are high in the morning - sometimes at 160. Patient has been fasting for labs.pt states pain in rt ear with drainage Jennifer Mccord, SYSTEMS PROTECTION TECHNICIAN [address], [place], [address], [place] [facility] 02/25/2025 08:53:11 04/14/2025 text/html Emergency Depart ment Follow-Up RecordReported by PatientEmergency Room Follow-Up RecordFor discharge information, patient reportsname of hospital/urgent care patient was seen: ([facility]),patient presented to hospital/urgent care on or around: actual date march 25, 2025,patient presented to hospital for treatment of: (infection on right foot),treatment received by hospital/urgent care: (admitted, 2nd toe amputation on right foot),patient's condition has: improved, andhospital records available at the time of this visit: yes. 59 year old female who presents to the office today for a hospital follow up. pt states she is being followed up with Dr Weathers and having o2 treatments done in [place] Jennifer Mccord AKSHAT [address], [place], [address], [place] [facility] 04/14/2025 13:38:32 05/27/2025 text/html 59 yr old female presents for a diabetic follow up and refill on some of her medications.pt states she had tow ange and is doing o2 therapy- wound healedpt states gabapentin helps with neuropathy Jennifer ChesterAKSHAT de la torre [address], [place], [address], [place] [facility] 05/27/2025 16:43:57 06/23/2025 text/html ROS as noted in the HPI 59 yr old female presents post fall about 10 days ago. She tripped over some truck parts in her garage and landing on her left side. She has dark purple bruising to left breast and a knot to left chest and bruising to left hip Jennifer RobertAKSHAT connor [address], [place], [address], [place] [facility] 06/27/2025 15:10:08 08/19/2025 text/html ROS as noted in the HPI 59 year old female who presents to the office today for a follow up ondiabetes and neuropathy, arthritis, hypertension,needs refills on all medspt states gabapentin helps with her neuropathy. pt states it helps with the symptoms so she can stand on her feet to workpt states she is feeling tired Jennifer ChesterAKSHAT de la torre [address], [place], [address], [place] [facility] 08/19/2025 17:51:32 OBGyn Episode No OBEpisode recorded.
--- OUTSIDE RECORDS SUMMARY | 2025-09-09 06:22 | XMS_ITS | Data Portability ---
Author Organization [place] - [facility] ADMIN Address [address] [place] [id number] Care Team Providers Care Humanities Coordinator Name Role Phone AMALIA MCCORD Referring Provider AMALIA MCCORD Primary Care Provider Assessment Encounter Date Assessment Date Assessment LastModified by Organization Details LastModified Time 11/28/2022 11/28/2022 Amalia Karimi APRN, Dear Shona, just want to let you know that I saw Zehra Espino in the off state your request. She is a 57-year-old employee out at [employer] who has had a several month history [...] in punctuate rojas and or spelling, etc. [email or web address] Not available 11/28/2022 11:49:55 01/02/2023 01/02/2023 Ms Espino returns after robotic cholecystectomy. She is doing very well without serous complaints or issues. The wounds are intact without sign of infection. She can return to work in 1 week if she does not lift more than 35 lb. Follow-up in a month as needed [email or web address] Not available 01/02/2023 09:09:29 10/01/2024 10/01/2024 Ms. [...] (A+B+C), acute, serum 2023 024 [email or web address] 64 [facility] (Registration ), [address] [place], [address], 5 11:24:16 igg, quantitativ e, serum 2023 024 [facility] (Registration ), [address] [place], [address], 4 15:14:32 mitochondri al Ab, serum 2023 024 [facility] (Registration ), [address] [place], [address], 4 15:14:30 actin smooth muscle Ab, serum 2023 024 [facility] (Registration ), [address] [place], [address], 4 15:14:34 ARNAV (antinuclea r antibodies) screen, serum 2023 [facility] (Registration ), [address], [place], [address], 4 13:13:40 alpha-1-ant itrypsin (aat), QN, serum [address] (Registration ), [address] , [place], [address], 5 11:24:16 CBC w/ auto diff 2023 [facility] (Registration ), [address], [place], [address], 4 07:51:03 PT/INR [address] (Registration ), [address], [place], [address], 5 11:24:16 nonalcoholi c steatohepat itis + fibrosis panel, serum or plasma [address] (Registration ), [address], [place], [address], 5 11:24:16 alpha-1-ant itrypsin (aat) phenotype, serum [address] (Registration ), [address], [place], [address], 5 11:24:17 CMP, serum or plasma 2023 [facility] (Registration ), [address], [place], [address], 4 08:04:39 hemochromat osis mutation (hfe), blood/tissu e 2023 024 [email or web address] 64 [facility] (Registration ), [address], [place], [address], 5 11:24:17 Referral general surgeon referral 2021 022 JACKSON Funk MD, [address] [facility], [place], [address], 4 05:01:33 Procedures None recorded. Surgeries None recorded. Imaging US, liver 2023 024 JACKSON Tyronewn Ooma Number, [address] [facility], [place], [address], 4 11:59:54 Medication Orders None recorded. Patient TargetsNo targets recorded. Patient Instructions Encounter Date Encounter Id Patient Instructions Last Modified By Organization Details Last Modified Time 10/01/2024 [id number] 6 month f/u [email or web address] Not available 10:52:52 Reason for Referral General Surgeon Referral for Cholelithiasis without obstruction Referring Physician: Johnna Karimi, Family Medicine, Encounter Date: 10/26/2022 Results Created Date Observation Date Name Description Value Unit Range Abnormal Flag Note LastModifiedBy Organization Detail LastModifiedTime 12/13/1912/13/2022 CBC AUTO NO DIFF (HEMO GRAM) WBC 5.7 K/uL 4.0-10 .5 Not Available [facility] ([facility]) [address], [place], [address], 12/13/2022 16:35:15 12/13/19 23 12/13/2022 CBC AUTO NO DIFF (HEMO GRAM) RBC 4.2 M/mm3 4.2-6. 4 Not Available [facility] ([facility]) [address], [place], [address], 12/13/2022 16:35:15 12/13/19 23 12/13/2022 CBC AUTO NO DIFF (HEMO GRAM) HGB 13.0 gm/dL 12.5-1 6.0 Not Available [facility] ([facility]) [address], [place], [address], 12/13/2022 16:35:15 12/13/19 23 12/13/2022 CBC AUTO NO DIFF (HEMO GRAM) HCT 38.9 % 37.0-4 7.0 Not Available [facility] ([facility]) [address], [place], [address], 12/13/2022 16:35:15 12/13/19 23 12/13/2022 CBC AUTO NO DIFF (HEMO GRAM) MCV 93.5 fL 78-100 Not Available [facility] ([facility]) [address], [place], [address], 12/13/2022 16:35:15 12/13/19 23 12/13/2022 CBC AUTO NO DIFF (HEMO GRAM) MCH 31.3 pg 27-31 high Not Available [facility] ([facility]) [address], [place], [address], 12/13/2022 16:35:15 12/13/19 23 12/13/2022 CBC AUTO NO DIFF (HEMO GRAM) MCHC 33.4 g/dL 32-36 Not Available [facility] ([facility]) [address], [place], [address], 12/13/2022 16:35:15 12/13/19 23 12/13/2022 CBC AUTO NO DIFF (HEMO GRAM) RDW 12.9 % 11.5-1 4.0 Not Available [facility] ([facility]) [address], [place], [address], 12/13/2022 16:35:15 12/13/19 23 12/13/2022 CBC AUTO NO DIFF (HEMO GRAM) platelet count 193 K/uL 150-45 0 Not Available [facility] ([facility]) [address], [place], [address], 12/13/2022 16:35:15 12/13/19 23 12/13/2022 CBC AUTO NO DIFF (HEMO GRAM) manual differential NO Not Available [facility] ([facility]) [address], [place], [address], 12/13/2022 16:35:15 12/13/19 23 12/13/2022 COMP METAB OLIC PANEL sodium 139 mmol/ L 136-14 5 Not Available [facility] ([facility]) [address], [place], [address], 12/13/2022 17:16:34 12/13/19 23 12/13/2022 COMP METAB OLIC PANEL potassium 3.5 mmol/ L 3.6-5. 0 low Not Available [facility] ([facility]) [address], [place], [address], 12/13/2022 17:16:34 12/13/19 23 12/13/2022 COMP METAB OLIC PANEL chloride 102 mmol/ L 98-107 Not Available [facility] ([facility]) [address], [place], [address], 12/13/2022 17:16:34 12/13/19 23 12/13/2022 COMP METAB OLIC PANEL carbon dioxide 31.2 mmol/ L 21.0-3 2.0 Not Available [facility] ([facility]) [address], [place], [address], 12/13/2022 17:16:34 12/13/19 23 12/13/2022 COMP METAB OLIC PANEL anion gap 9.3 Not Available [facility] ([facility]) [address] , [place], [address], 12/13/2022 17:16:34 12/13/19 23 12/13/2022 COMP METAB OLIC PANEL glucose 126 mg/dL 70-120 high Not Available [facility] ([facility]) [address], [place], [address], 12/13/2022 17:16:34 12/13/19 23 12/13/2022 COMP METAB OLIC PANEL BUN 25 mg/dL 7-18 high Not Available [facility] ([facility]) [address], [place], [address], 12/13/2022 17:16:34 12/13/19 23 12/13/2022 COMP METAB OLIC PANEL creatinine 1.0 mg/dL 0.6-1. 3 Not Available [facility] ([facility]) [address] , [place], [address], 12/13/2022 17:16:34 12/13/19 23 12/13/2022 COMP METAB OLIC PANEL glomerular filtration rate >60 mlper min 60- Not Available [facility] ([facility]) [address] , [place], [address], 12/13/2022 17:16:34 12/13/19 23 12/13/2022 COMP METAB OLIC PANEL total protein 6.9 g/dL 6.4-8. 2 Not Available [facility] ([facility]) [address] , [place], [address], 12/13/2022 17:16:34 12/13/19 23 12/13/2022 COMP METAB OLIC PANEL albumin 4.1 g/dL 3.4-5. 0 Not Available [facility] ([facility]) [address] , [place], [address], 12/13/2022 17:16:34 12/13/19 23 12/13/2022 COMP METAB OLIC PANEL globulin 2.8 Not Available [facility] ([facility]) [address] , [place], [address], 12/13/2022 17:16:34 12/13/19 23 12/13/2022 COMP METAB OLIC PANEL alb/glob ratio 1.5 0.7-2 Not Available [facility] ([facility]) [address], [place], [address], 12/13/2022 17:16:34 12/13/19 23 12/13/2022 COMP METAB OLIC PANEL calcium 9.6 mg/dL 8.5-10 .5 Not Available [facility] ([facility]) [address] , [place], [address], 12/13/2022 17:16:34 12/13/19 23 12/13/2022 COMP METAB OLIC PANEL bilirubin total 0.30 mg/dL 0.10-1 .00 Not Available [facility] ([facility]) [address] , [place], [address], 12/13/2022 17:16:34 12/13/19 23 12/13/2022 COMP METAB OLIC PANEL AST (SGOT) 31 U/L 0-37 Not Available [facility] ([facility]) [address] , [place], [address], 12/13/2022 17:16:34 12/13/19 23 12/13/2022 COMP METAB OLIC PANEL ALT (SGPT) 47 U/L 0-65 Not Available [facility] ([facility]) [address] , [place], [address], 12/13/2022 17:16:34 12/13/19 23 12/13/2022 COMP METAB OLIC PANEL alk phosphatase 68 U/L 46-116 Not Available [facility] ([facility]) [address] , [place], [address], 12/13/2022 17:16:34 10/02/20 24 10/02/2024 CBC AUTO W DIFF WBC 5.0 K/uL 4.0-10 .5 Not Available [facility] ([facility]) [address] , [place], [address], 10/02/2024 07:51:03 10/02/20 24 10/02/2024 CBC AUTO W DIFF RBC 4.1 M/mm3 4.2-6. 4 low Not Available [facility] ([facility]) [address] , [place], [address], 10/02/2024 07:51:03 10/02/20 24 10/02/2024 CBC AUTO W DIFF HGB 12.7 gm/dL 12.5-1 6.0 Not Available [facility] ([facility]) [address] , [place], [address], 10/02/2024 07:51:03 10/02/20 24 10/02/2024 CBC AUTO W DIFF HCT 39.5 % 37.0-4 7.0 Not Available [facility] ([facility]) [address] , [place], [address], 10/02/2024 07:51:03 10/02/20 24 10/02/2024 CBC AUTO W DIFF MCV 96.3 fL 78-100 Not Available [facility] ([facility]) [address] , [place], [address], 10/02/2024 07:51:03 10/02/20 24 10/02/2024 CBC AUTO W DIFF MCH 31.0 pg 27-31 Not Available [facility] ([facility]) [address] , [place], [address], 10/02/2024 07:51:03 10/02/20 24 10/02/2024 CBC AUTO W DIFF MCHC 32.2 g/dL 32-36 Not Available [facility] ([facility]) [address] , [place], [address], 10/02/2024 07:51:03 10/02/20 24 10/02/2024 CBC AUTO W DIFF RDW 13.0 % 11.5-1 4.0 Not Available [facility] ([facility]) [address] , [place], [address], 10/02/2024 07:51:03 10/02/20 24 10/02/2024 CBC AUTO W DIFF platelet count 208 K/uL 150-45 0 Not Available [facility] ([facility]) [address] , [place], [address], 10/02/2024 07:51:03 10/02/20 24 10/02/2024 CBC AUTO W DIFF MPV 9.8 fL 6-9.5 high Not Available [facility] ([facility]) [address], [place], [address], 10/02/2024 07:51:03 10/02/20 24 10/02/2024 CBC AUTO W DIFF neutrophil% 59.1 % 43-65 Not Available [facility] ([facility]) [address], [place], [address], 10/02/2024 07:51:03 10/02/20 24 10/02/2024 CBC AUTO W DIFF lymphocyte% 31.1 % 20.5-4 5.5 Not Available [facility] ([facility]) [address], [place], [address], 10/02/2024 07:51:03 10/02/20 24 10/02/2024 CBC AUTO W DIFF monocyte% 7.0 % 5.5-11 .7 Not Available [facility] ([facility]) [address] [place], [address], 10/02/2024 07:51:03 10/02/20 24 10/02/2024 CBC AUTO W DIFF eosinophil% 2.2 % 0.9-2. 9 Not Available [facility] ([facility]) [address] [place], [address], 10/02/2024 07:51:03 10/02/20 24 10/02/2024 CBC AUTO W DIFF basophil% 0.4 % 0.2-1. 0 Not Available [facility] ([facility]) [address] [facility], [place], [address], 10/02/2024 07:51:03 10/02/20 24 10/02/2024 CBC AUTO W DIFF immature granulocytes % 0.2 % 0.0-0. 8 Not Available [facility] ([facility]) [address] [facility], [place], [address], 10/02/2024 07:51:03 10/02/20 24 10/02/2024 CBC AUTO W DIFF nucleated red blood cells % 0.0 % Not Available [facility] ([facility]) [address] [facility], [place], [address], 10/02/2024 07:51:03 10/02/20 24 10/02/2024 CBC AUTO W DIFF neutrophil# 3.0 K/uL 2.2-4. 8 Not Available [facility] ([facility]) [address] [facility], [place], [address], 10/02/2024 07:51:03 10/02/20 24 10/02/2024 CBC AUTO W DIFF lymphocyte# 1.6 cell/ mcL 1.3-2. 9 Not Available [facility] ([facility]) [address] [facility], [place], [address], 10/02/2024 07:51:03 10/02/20 24 10/02/2024 CBC AUTO W DIFF monocyte# 0.4 cell/ mcL 0.3-0. 8 Not Available [facility] ([facility]) [address] [facility], [place], [address], 10/02/2024 07:51:03 10/02/20 24 10/02/2024 CBC AUTO W DIFF eosinophil# 0.1 cell/ mcL 0-0.2 Not Available [facility] ([facility]) [address] , [place], [address], 10/02/2024 07:51:03 10/02/20 24 10/02/2024 CBC AUTO W DIFF basophil# 0.0 cell/ mcL 0.0-1. 0 Not Available [facility] ([facility]) [address] , [place], [address], 10/02/2024 07:51:03 10/02/20 24 10/02/2024 CBC AUTO W DIFF immature gramulocytes # 0.01 K/uL Not Available [facility] ([facility]) [address], [place], [address], 10/02/2024 07:51:03 10/02/20 24 10/02/2024 CBC AUTO W DIFF nucleated red blood cells # 0.00 K/uL Not Available [facility] ([facility]) [address] , [place], [address], 10/02/2024 07:51:03 10/02/20 24 10/02/2024 CBC AUTO W DIFF manual differential NO Not Available [facility] ([facility]) [address] , [place], [address], 10/02/2024 07:51:03 10/02/20 24 10/02/2024 COMP METAB OLIC PANEL sodium 140 mmol/ L 136-14 5 Not Available [facility] ([facility]) [address] [place], [address], 10/02/2024 08:04:39 10/02/20 24 10/02/2024 COMP METAB OLIC PANEL potassium 4.1 mmol/ L 3.6-5. 0 Not Available [facility] ([facility]) [address] [place], [address], 10/02/2024 08:04:39 10/02/20 24 10/02/2024 COMP METAB OLIC PANEL chloride 102 mmol/ L 98-107 Not Available [facility] ([facility]) [address] , [place], [address], 10/02/2024 08:04:39 10/02/20 24 10/02/2024 COMP METAB OLIC PANEL carbon dioxide 26.6 mmol/ L 21.0-3 2.0 Not Available [facility] ([facility]) [address] , [place], [address], 10/02/2024 08:04:39 10/02/20 24 10/02/2024 COMP METAB OLIC PANEL anion gap 15.5 Not Available [facility] ([facility]) [address] , [place], [address], 10/02/2024 08:04:39 10/02/20 24 10/02/2024 COMP METAB OLIC PANEL glucose 147 mg/dL 70-120 high Not Available [facility] ([facility]) [address] , [place], [address], 10/02/2024 08:04:39 10/02/20 24 10/02/2024 COMP METAB OLIC PANEL BUN 19 mg/dL 7-18 high Not Available [facility] ([facility]) [address] [place], [address], 10/02/2024 08:04:39 10/02/20 24 10/02/2024 COMP METAB OLIC PANEL creatinine 0.8 mg/dL 0.6-1. 3 Not Available [facility] ([facility]) [address] , [place], [address], 10/02/2024 08:04:39 10/02/20 24 10/02/2024 COMP METAB [...] latham ing kiney funct ion. Not Available [facility] ([facility]) [address], [place], [address], 10/02/2024 08:04:39 10/02/20 24 10/02/2024 COMP METAB OLIC PANEL total protein 7.5 g/dL 6.4-8. 2 Not Available [facility] ([facility]) [address], [place], [address], 10/02/2024 08:04:39 10/02/20 24 10/02/2024 COMP METAB OLIC PANEL albumin 4.2 g/dL 3.4-5. 0 Not Available [facility] ([facility]) [address], [place], [address], 10/02/2024 08:04:39 10/02/20 24 10/02/2024 COMP METAB OLIC PANEL globulin 3.3 Not Available [facility] ([facility]) [address], [place], [address], 10/02/2024 08:04:39 10/02/20 24 10/02/2024 COMP METAB OLIC PANEL alb/glob ratio 1.3 0.7-2 Not Available [facility] ([facility]) [address], [place], [address], 10/02/2024 08:04:39 10/02/20 24 10/02/2024 COMP METAB OLIC PANEL calcium 9.5 mg/dL 8.5-10 .5 Not Available [facility] ([facility]) [address], [place], [address], 10/02/2024 08:04:39 10/02/20 24 10/02/2024 COMP METAB OLIC PANEL bilirubin total 0.30 mg/dL 0.10-1 .00 Not Available [facility] ([facility]) [address] , [place], [address], 10/02/2024 08:04:39 10/02/20 24 10/02/2024 COMP METAB OLIC PANEL AST (SGOT) 40 U/L 0-37 high Not Available [facility] ([facility]) [address] , [place], [address], 10/02/2024 08:04:39 10/02/20 24 10/02/2024 COMP METAB OLIC PANEL ALT (SGPT) 78 U/L 0-65 high Not Available [facility] ([facility]) [address], [place], [address], 10/02/2024 08:04:39 10/02/20 24 10/02/2024 COMP METAB OLIC PANEL alk phosphatase 82 U/L 46-116 Not Available [facility] ([facility]) [address], [place], [address], 10/02/2024 08:04:39 10/02/20 24 10/02/2024 PT (PROT HROMB IN TIME) W INR prothrombin time 10.1 secon ds 9.3-11 .4 Not Available [facility] ([facility]) [address], [place], [address], 10/02/2024 08:08:50 10/02/20 24 10/02/2024 PT (PROT [...] Mecha nical Heart Valve s Not Available [facility] ([facility]) [address] [facility], [place], [address], 10/02/2024 08:08:50 10/02/20 24 10/03/2024 ACUTE HEPAT ITIS PANEL hep A Ab, IgM Negati ve negati ve A negat liliam anti- HAV IgM resul t sugge sts no recen t or curre nt HAV infec tion. Not Available [facility] ([facility]) [address] [facility], [place], [address], 10/03/2024 06:16:59 10/02/20 24 10/03/2024 ACUTE HEPAT ITIS PANEL HBsAg screen Negati ve negati ve Not Available [facility] ([facility]) [address] [facility], [place], [address], 10/03/2024 06:16:59 10/02/20 24 10/03/2024 ACUTE HEPAT ITIS PANEL hep B core Ab, IgM Negati ve negati ve Not Available [facility] ([facility]) [address] [facility], [place], [address], 10/03/2024 06:16:59 10/02/20 24 10/03/2024 ACUTE HEPAT ITIS PANEL HCV Ab Non Reacti ve non reacti ve Perfo [place]med at: [facility] [address] Lab Direc tor: Luis copeland PhD, Phone : [phone] Not Available [facility] ([facility]) [address] [facility], [place], [address], 10/03/2024 06:16:59 10/02/20 24 10/03/2024 ACUTE HEPAT ITIS PANEL hep A Ab, IgM Negati ve negati ve A negat liliam anti- HAV IgM resul t sugge sts no recen t or curre nt HAV infec tion. Not Available [facility] ([facility]) [address], [place], [address], 10/03/2024 06:17:00 10/02/20 24 10/03/2024 ACUTE HEPAT ITIS PANEL HBsAg screen Negati ve negati ve Not Available [facility] ([facility]) [address], [place], [address], 10/03/2024 06:17:00 10/02/20 24 10/03/2024 ACUTE HEPAT ITIS PANEL hep B core Ab, IgM Negati ve negati ve Not Available [facility] ([facility]) [address] [facility], [place], [address], 10/03/2024 06:17:00 10/02/20 24 10/03/2024 ACUTE HEPAT ITIS PANEL HCV Ab Non Reacti ve non reacti ve Perfo rmed at: [facility] n [address] [place] [address] Lab Direc tor: Luis copleand PhD, Phone : [phone] Not Available [facility] ([facility]) [address] [facility], [place], [address], 10/03/2024 06:17:00 10/02/20 24 10/03/2024 ACUTE HEPAT ITIS PANEL interpretati on: Commen t . Not infec jelena with HCV unles s early or acute infec tion is suspe cted (whic h may be delay ed in an immun ocomp romis ed indiv idual ), or other evide nce exist s to indic ate HCV infec tion. Perfo rmed at: [facility] n [address] [place] [address] Lab Direc tor: Luis copeland PhD, Phone : [phone] Not Available [facility] ([facility]) [address] [facility], [place], [address], 10/03/2024 06:17:00 11/20/20 24 10/03/2024 ARNAV W/REF LEEANN IF POSIT LILIAM antinuclear Ab, direct NEGATI VE negati ve Perfo rmed at: [place] [id number] [place] [address] Lab Direc tor: Luis copeland PhD, Phone : [phone] Not Available [facility] ([facility]) [address] [facility], [place], [address], 10/03/2024 13:13:40 10/02/20 24 10/03/2024 MITOC HONDR IAL ANTIB ODIES mitochondria l (M2) Ab <20.0 units 0.0-20 .0 Negat liliam 0.0 - 20.0 Equiv ocal 20.1 - 24.9 Posit liliam >24.9 . Mitoc hondr ial (M2) Antib odies are found in 90-96 % of patie nts with prima ry bilia ry cirrh osis. Perfo rmed at: [place] [id number] [place] [address] Lab Direc tor: Luis copeland PhD, Phone : [phone] Not Available [facility] ([facility]) [address] [facility], [place], [address], 10/03/2024 15:14:30 10/02/20 24 10/03/2024 IGG IgG 201 mg/dL 586-16 02 low Resul t confi rmed on matt ntrat ion. Perfo rmed at: [place] [id number] [place] [address] Lab Direc tor: Luis copeland PhD, Phone : [phone] Not Available [facility] ([facility]) [address] [facility], [place], [address], 10/03/2024 15:14:32 10/02/20 24 10/03/2024 ACTIN (SMOO [...] osis. Perfo rmed at: [facility] [address] [facility], [facility], [place] [address] Lab Direc tor: Luis copeland PhD, Phone : [phone] Not Available [facility] ([facility]) [address] [facility], [place], [address], 10/03/2024 15:14:34 10/02/2010/05/2024 BAUTISTA FIBRO SURE PLUS alpha 2-macroglobu jericho, qn 563 mg/dL 110-27 6 high Not Available [facility] ([facility]) [address] [place], [address], 10/05/2024 06:16:12 10/02/20 24 10/05/2024 BAUTISTA FIBRO SURE PLUS haptoglobin 166 mg/dL 33-346 Not Available [facility] ([facility]) [address] [facility], [place], [address], 10/05/2024 06:16:12 10/02/20 24 10/05/2024 BAUTISTA FIBRO SURE PLUS apolipoprote in A-1 190 mg/dL 116-20 9 Not Available [facility] ([facility]) [address] [place], [address], 10/05/2024 06:16:12 10/02/20 24 10/05/2024 BAUTISTA FIBRO SURE PLUS bilirubin, total 0.2 mg/dL 0.0-1. 2 Not Available [facility] ([facility]) [address] [place], [address], 10/05/2024 06:16:12 10/02/20 24 10/05/2024 BAUTISTA FIBRO SURE PLUS GGT 22 IU/L 0-60 Not Available [facility] ([facility]) [address] [place], [address], 10/05/2024 06:16:12 10/02/20 24 10/05/2024 BAUTISTA FIBRO SURE PLUS ALT (SGPT) p5p 69 IU/L 0-40 high Not Available [facility] ([facility]) [address] [place], [address], 10/05/2024 06:16:12 10/02/20 24 10/05/2024 BAUTISTA FIBRO SURE PLUS AST (SGOT) p5p 48 IU/L 0-40 high Not Available [facility] ([facility]) [address], [place], [address], 10/05/2024 06:16:12 10/02/20 24 10/05/2024 BAUTISTA FIBRO SURE PLUS cholesterol, total 138 mg/dL 100-19 9 Not Available [facility] ([facility]) [address] [place], [address], 10/05/2024 06:16:12 10/02/20 24 10/05/2024 BAUTISTA FIBRO SURE PLUS glucose, serum 156 mg/dL 70-99 high Not Available [facility] ([facility]) [address] [place], [address], 10/05/2024 06:16:12 10/02/20 24 10/05/2024 BAUTISTA FIBRO SURE PLUS triglyceride s 229 mg/dL 0-149 high Not Available [facility] ([facility]) [address] [place], [address], 10/05/2024 06:16:12 10/02/20 24 10/05/2024 BAUTISTA FIBRO [...] Stage F4 - Cirrh osis Not Available [facility] ([facility]) [address] [place], [address], 10/05/2024 06:16:12 10/02/20 24 10/05/2024 BAUTISTA FIBRO SURE PLUS fibrosis stage F1-F2 Not Available [facility] ([facility]) [address] [place], [address], 10/05/2024 06:16:12 10/02/20 24 10/05/2024 BAUTISTA FIBRO SURE PLUS fibrosis score 0.32 0.00-0 .21 high Not Available [facility] ([facility]) [address] [place], [address], 10/05/2024 06:16:12 10/02/20 24 10/05/2024 BAUTISTA FIBRO SURE PLUS steatosis score 0.49 0.00-0 .40 high Not Available [facility] ([facility]) [address] [place], [address], 10/05/2024 06:16:12 10/02/20 24 10/05/2024 BAUTISTA FIBRO SURE PLUS steatosis grade Commen t S1 - Mild Steat osis (But Clini filomena Signi fican t) (5- 33%) Not Available [facility] ([facility]) [address] [place], [address], 10/05/2024 06:16:12 10/02/20 24 10/05/2024 BAUTISTA FIBRO SURE PLUS steatosis scoring Commen t . <=0.4 0 = S0 - No Steat osis (<5%) 0.40 - 0.55 = S1 - Mild Steat osis (but Clini filomena Signi fican t) (5-33 %) >0.55 = S2S3- Moder ate to Sever e Steat osis (Clin icall y Signi fican t) (34-1 00%) Not Available [facility] ([facility]) [address] , [place], [address], 10/05/2024 06:16:12 10/02/20 24 10/05/2024 BAUTISTA FIBRO SURE PLUS bautista scoring Commen t . <=0.2 5 = N0 - No BAUTISTA/ MASH 0.25 - 0.50 = N1 - Mild BAUTISTA/ MASH 0.50 - 0.75 = N2 - Moder ate BAUTISTA/ MASH >0.75 = N3 - Sever e BAUTISTA/ MASH Not Available [facility] ([facility]) [address] , [place], [address], 10/05/2024 06:16:12 10/02/20 24 10/05/2024 BAUTISTA FIBRO SURE PLUS bautista grade Commen t N3 - Sever e BAUTISTA Not Available [facility] ([facility]) [address] , [place], [address], 10/05/2024 06:16:12 10/02/20 24 10/05/2024 BAUTISTA FIBRO SURE PLUS bautista score 0.82 0.00-0 .25 high Not Available [facility] ([facility]) [address] , [place], [address], 10/05/2024 06:16:12 10/02/20 24 10/05/2024 BAUTISTA FIBRO [...] ction s of fibro sis. Not Available [facility] ([facility]) [address], [place], [address], 10/05/2024 06:16:12 10/02/20 24 10/05/2024 BAUTISTA FIBRO SURE PLUS methodology: Commen t . The jerle mello teste d are perfo rmed by Fibro Sure- Speci fic metho ds. Not inten ded for use with other diagn ostic consi derat ions. Not Available [facility] ([facility]) [address], [place], [address], 10/05/2024 06:16:12 10/02/20 24 10/05/2024 BAUTISTA FIBRO SURE PLUS interpretati on: Commen t . Quant itati ve resul ts of 10 bioch emica ls in combi natio n with age and gende r, are jerel zed using a compu tatio nal algor ithm to provi de a quant itati ve surro gate marke r (0.0- 1.0) of liver fibro sis ([place] vir F0-F4 ), hepat ic steat osis [...] fican t NAFLD /MASL D fibro sis ([place] vir F2-F4 ) and 11% had cirrh [...] ficit y of 71%. 3 Not Available [facility] ([facility]) [address], [place], [address], 10/05/2024 06:16:12 10/02/20 24 10/05/2024 BAUTISTA FIBRO SURE PLUS comment: Commen t . This test was devel oped and its perfo rmanc e natty cteri stics deter mined by [employer]. It has not been clear ed or appro mellissa by the Food and Drug Admin istra tion. . For quest luiza akers this repor t pleas e conta ct custo geraldine servi ce at [phone]. . Refer ences : . 1. Bev [...] at: BN - [facility] [place] [address] [facility] , [place] [address] Lab Direc tor: Mita cooper MD, Phone : [phone] Not Available [facility] ([facility]) [address], [place], [address], 10/05/2024 06:16:12 10/02/20 24 10/07/2024 HERED ITARY [...] ders to discu ss resul ts at 1-280 -024- GENE (1724 ). . Test Detai ls: Three varia nts jerel zed: c.845 G>A (p.Cy s282T yr), commo nly refer red to as C282Y c.187 C>G (p.Hi s63As p), commo nly refer red to as H63D c.193 A>T (p.Se r65Cy s), commo nly refer red to as S65C . Metho ds/Li mitat ions: DNA Jerel sis of the HFE gene (NM_0 68658 .4) was perfo rmed by PCR ampli [...] 3. doi: 10.10 02/ p.243 30. PMID: 62714 290; PMCID : PMC31 94753 . Cosmo G, Huey ot P, Flores [...] hg.20 15.12 8. Epub 2014May 20. PMID: 59467 218; PMCID : PMC49 78625 . Not Available [facility] ([facility]) [address], [place], [address], 10/07/2024 17:10:09 10/02/20 24 10/07/2024 HERED ITARY HEMOC HROMA TOSIS reviewed by: Alberto t Techn ical [place] nent perfo rmed at [facility] rp [place] Profe génesison al [place] nent perfo rmed by: . Labor atory [facility] Michael barragan, Ph.D. , FAC Direc tor, Molec ular [facility] [address] [place] [address] Perfo rmed at: TG [facility] rp [place] [facility] , [place] [address] Lab Direc tor: Amiadelinadolores Okeefe [facility] , Phone : [phone] Not Available [facility] ([facility]) [address], [place], [address], 10/07/2024 17:10:09 10/02/20 24 10/16/2024 A1A DEFIC [...] matleidy n and Clif nts. Not Available [facility] ([facility]) [address] , [place], [address], 10/16/2024 17:10:10 10/02/20 24 10/16/2024 A1A DEFIC [...] ders to discu ss resul ts at 0-321 -004- GENE (8360 ). . Test Detai ls: Two varia [...] es in the SERPI NA1 gene (NM_0 30439 .4) was perfo rmed by multi plex [...] doi: 10.15 326/j copdf .3.32014. 0182. PMID: 36217 891; PMCID : PMC55 75037 . Tony NIEVES, Siddhartha estrada V, Prosper ZAPATA. Alpha -1 Antit rypsi n Defic iency . 2005Sep 08 Updat ed 2019April 02 . In: [place] MP, Uziel cuellar HH, Ariella COLIN, et al., derek rs. GeneR eview s(R) Inter net . [place]atjos[place] andrew[place] ([place]): Unive rsity of [place]iah [place] Aure; 1992- 2020. Avail able from: https ://shaneka edward.chab i.nlm .nih. gov/b ooks/ NBK15 19/ Not Available [facility] ([facility]) [address], [place], [address], 10/16/2024 17:10:10 10/02/20 24 10/16/2024 A1A DEFIC ENCY PROFI LE electronical ly signed by: Alberto Hadley , PhD [facility] Not Available [facility] ([facility]) [address], [place], [address], 10/16/2024 17:10:10 10/02/20 24 10/16/2024 A1A DEFIC ENCY PROFI LE a1a rfx to phenotype Not Indica jelena Perfo rmed at: [facility] [address] [place] [address] Lab Direc tor: Mita cooper MD, Phone : [phone] Perfo rmed at: [facility] [address] [place] [address] Lab Direc tor: Anjana Okeefe [facility] , Phone : [phone] Not Available [facility] ([facility]) [address], [place], [address], 10/16/2024 17:10:10 10/02/20 24 10/16/2024 A1A DEFIC ENCY PROFI LE yyiud-5-xrht trypsin,seru m 152 mg/dL 101-18 7 Not Available [facility] ([facility]) [address], [place], [address], 10/16/2024 17:10:10 10/14/20 24 10/14/2024 US, liver [facility] [address] [place] [address] Phone: Fax: Name: ZEHRA ESPINO Exam Date: : 1964 Age 58 years Gender : F Access ion: [id number] Physic judith: BRYCE CARDOZO [place]ili ty: [facility] Fac[place] ty HSV: Outpat ient Exam: LIVER ULTRAS OUND Proced ure: US LIVER Exam Date: 9:08 AM 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 Legall y authen ticate d by MELISSA LAINEZ 2023-11 10:08: 00 CC'ed Logic: Orderi ng Provid er: CAS AVERY Attend ing Provid er: CAS AVERY Admitt ing Provid er: CAS AVERY [facility] [address] [place] [address], [place], [address], 10/30/2024 16:06:24 11/27/19 25 11/27/2024 MRI, abdom en, w/o contr ast [facility] [address] [place] [address] Phone: Fax: Name: ZEHRA ESPINO Exam Date: : 1964 Age 59 years Gender : F Access ion: [id number] Physic judith: BRYCE CARDOZO Facili ty: [facility] Facili ty HSV: Outpat ient Exam: MRI ABD W/O MR ABDOME N WITHOU T IV CONTRA ST, 025 8:59 AM 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 Legall y authen ticate d by TEMO CRAWFORD 0 11-27 09:59: 00 CC'ed Logic: Orderi ng Provid er: CAS AVERY Attend ing Provid er: CAS AVERY Referr ing Provid er: CAS AVERY Admitt ing Provid er: CAS AVERY [email or web address] [facility] [address] [place] [address], [place], [address], 12/09/2024 15:47:04 Result Notes Documentation Provider Name and Address Organization Details Recorded Time Mri, Abdomen, W/o Contrast : [place] [address] [place] [address] Name: SRINIVASTAYLERZEHRA Exam Date: 11/27/2024 : 1965 Age 59 years Gender: F Physician: VANESSA CARDOZO Facility: [facility] Facility HSV: Outpatient Exam: MRI ABD W/O MR ABDOMEN WITHOUT IV CONTRAST, 11/27/2024 8:59 AM 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 Legally authenticated by EMILE CRAWFORD 2024-11-27 09:59:00 CC'ed Logic: Ordering Provider: CAS MENDEZ Attending Provider: CAS MENDEZ Referring Provider: CAS MENDEZ Admitting Provider: CAS CARDOZO, KHOA [address] [facility], [place], [address], ARIANE - [facility] - [place] & [place] 12/09/2024 15:47:05 Procedures Surgical History Date Name Laterality Status Provider Name and Address Organization Details Recorded Time section completed Nigel THAKKAR - [facility]NT - [place] [facility] [place] 11/28/2022 11:28:22 Knee Surgery completed Nigel THAKKAR - [facility] - [place] 11/28/2022 11:28:38 tonsilectomy/adenoi ds completed Nigel THAKKAR - LPNT - [place] & [place] 11/28/2022 11:28:50 thumb surgery completed Nigel Marie [facility] - [place] 11/28/2022 11:29:21 repair of shoulder completed Nigel THAKKAR - [facility] - [place] 11/28/2022 11:29:15 procedure on foot completed Nigel THAKKAR - [facility] - [place] & [place] 11/28/2022 11:29:29 Knee Surgery completed Nigel THAKKAR - LPTULIO [facility] & [place] 11/28/2022 11:29:42 cholecystectomy completed Nigel JEAN [facility] & [place] 01/02/2023 08:59:30 Imaging Results None recorded. Procedure Notes None recorded. Medical Equipment None Reported. Allergies Allergen ID Allergen Name Allergen Category Reaction Reaction Severity Criticality Documentation Date Start Date Code Code System Note Provider Name and Address Organization Details Recorded Time 37788 lisinopri l medicatio n Not available Not available Not available 10/26/2022 72821 RxNorm Ana estrada, [facility] [place] 15:20:06 Medications Name Sig Start Date Stop [...] Updated DateTime 11/28/2022 175.26 cm 27.4 kg/m2 52472.74 g 79 /min 136/86 mm[Hg] Nigel THAKKAR [facility] & [place] 11/28/2022 11:25:46 Date Recorded Body height Body mass index (BMI) Body weight Heart rate Systolic And Diastolic Provider Name and Address Organization Details Last Updated DateTime 01/02/2023 175.26 cm 27.1 kg/m2 63797.84 g 84 /min 137/84 mm[Hg] Nigel THAKKAR [facility] & [place] 01/02/2023 08:58:44 Date Recorded Body weight Oxygen saturation Oxygen saturation in Arterial blood by Pulse oximetry Heart rate Systolic And Diastolic Provider Name and Address Organization Details Last Updated DateTime 4 88143.0 8 g 96 % 96 % 85 /min 111/61 mm[Hg] Maryfallon Cool [facility] & [place] 4 10:14:49 Date Recorded Body weight Heart rate Systolic And Diastolic Provider Name and Address Organization Details Last Updated DateTime 10/26/2022 37138.37 g 81 /min 117/71 mm[Hg] Ana Harmon [facility] & [place] 10/26/2022 15:20:45 Social History Question Answer Notes LastModified by [employer] Details LastModified Time Tobacco Smoking Status Former Smoker Nigel Quintanilla [facility] & [place] 11/28/2022 11:28:10 What Is Your Level Of Caffeine Consumption? Moderate [email or web address] Information not available 10/01/2024 Sex: Unknown Functional Status Question Answer Note LastModified by [employer] Details LastModified Time Do you use any illicit or recreational drugs? No [email or web address] Information not available 10/01/2024 What is your level of alcohol consumption? None Information not available 10/01/2024 Mental Status None [...] Disorder N Diabetes Y Bleeding Disorder N Seizures/Epilepsy N Arthritis Y Tuberculosis N Hyperlipidemia Y Cancer Y Stroke [...] ICD10 Code Diagnosis IMO Codes Diagnosis Note 149289 Johnna Karimi NP [facility] [address] [address] 10/26/2022 15:08:20 10/26/2022 16:09:30 Steatotic liver disease 123376598 K76.0 - believes PCP checked hepatitis- A and B status, will follow-up and let us know - Avoid NSAIDs and alcohol. - Do not take over 2 g of acetaminop hen daily. - Discussed weight loss and healthy diet.- liver ultrasound done 10/07/2022 , repeat in 6 months- will check labs at next office visit Liver cyst 47039195 K76. 89 - 1.5 cm hepatic cyst- discussed with patient since cyst is less than 4 cm there is no further recommenda tion for additional follow-up Cholelithi asis without obstruction 43739590 K80.20 - Referral placed to Dr. Funk [id number] Antwan Funk MD [facility] [address] [facility] [address] [place] [address] 11/28/2022 10:44:00 11/28/2022 13:50:53 Cholelithiasis without obstruction 77292302 K80.20 132388 Antwan Funk MD [facility] [address] [facility] [address] [place] [address] 01/02/2023 08:47:14 01/02/2023 09:08:51 Chronic cholecystitis without calculus 46499805 K81.1 [id number] VANESSA CARDOZO NP [facility] [address] [facility] [address] [place] [address] 10/01/2024 09:59:56 10/01/2024 10:56:25 Liver enzymes level above reference range 190005797 R74.01 Screening for malignant neoplasm of colon 063565619 Z12.11 Health Concerns Section Related Observation LastModified by Organization Detai ls LastModified Time None Recorded Concern Status LastModified by Organization Details LastModified Time None Recorded Advance Directives Directive None Recorded Payers Insurance Date Sequence Insurance Name Policy Number Policy Gregorio Covered Member ID Gregorio Member ID Guarantor Name 03/29/2025 1 [place] [id number] Zehra S Sanor [id number] Zehra S Sanor Notes Date Note Type Note Provider Name and Address Organization Details Recorded Time 10/26/2022 text/html ROS as noted in the HPI (64) Patient is a 57-year-old female referred to our office from Amalia Mccord APRN. liver ultrasound done 10/07/2022 revealed cholelithiasis and fatty liver. Also noted was a 1.5 cm hepatic cyst. Reports intermittent right upper quadrant pain after eating. Reports she has recently lost 20 lb. Denies nausea, vomiting or hematemesis. Denies heartburn or dysphagia. Denies diarrhea, constipation or hematochezia. Johnna Karimi NP [address] [facility], [place], [address], [facility] 10/26/2022 16:22:00 10/01/2024 text/html CURRENT: is a 58 year old female referred to us by Ms. Saba APRN for elevated liver enzymes. AST 48/ ALT 79 on recent labs. She reports she has had elevated liver enzymes for years dating back to 2011. Liver ultrasound in 2012 showed extensive hepatic steatosis. She does not remember if she saw a operations associate in the past. She has a distant history of heavy alcohol use in her 20s but now only drinks excessively once a year. She denies history of drug use. No history hepatitis. She denies issues with jaundice, abdominal swelling, easy bleeding, or unintentional weight loss. NO other GI complaints. VANESSA CARDOZO, [facility] [address], [place], [address], [facility] - [place] - [place] & [place] 10/01/2024 19:14:11 OBGyn Episode No OBEpisode recorded.
--- OUTSIDE RECORDS SUMMARY | 2025-09-09 06:22 | XMS_ITS | Encounter Summary ---
Author Organization [employer] ([place], [place], [place], [place]) Address [address] [place] [address] Care Team Providers Care Director Of Strategy & Mobile Name Role Phone Amalia Walter Primary Care Provider [phone] Encounter Details Date Type Department Care Team (Late st Contact Info) Description 01/28/2021 Transcribed Document [facility] Family Medicine [address] [place] [address] ProviderEmely MD [address] [place], [place] [id number] Social History Tobacco Use Types Packs/Day Years [...] on filedocumented in this encounter Care Teams Director Of Strategy & Mobile Relationship Specialty Start Date End Date Amalia Walter [address] [place] [address] [place] [address] PCP - General 04/09/24 documented as of this encounter
--- OUTSIDE RECORDS SUMMARY | 2025-09-09 06:23 | XMS_ITS | Continuity of Care Document ---
Author Organization [facility] Address [address] [place] [address] Care Team Providers Care Supervisor Prep Name Role Phone JENNIFER WALTER Primary Care Provider Assessment No assessment recorded. Plan of Treatment Reminders Order Date Submit Date Provider Last Modified By Organization Details Last Modified Time Details Appointments Diabetic F/U 2025 04:40P M Jennifer Walter APRN Not available Not available Not available Lab CMP, serum or plasma 2024 025 [facility] (Lab), [address], [place], [address], 08/29/2025 07:40:55 CBC w/ auto diff 2024 025 [facility] (Lab), [address], [place], [address], 08/29/2025 01:28:40 lipid panel, serum 2024 025 [facility] [address], [place], [address], 09/01/2025 13:18:13 drug screen, 14 drugs (detectim ed), urine 2024 025 [facility] (Lab), [address], [place], [address], 08/29/2025 05:06:35 vitamin D, 25-hydrox y, total, serum 2024 [facility] (Lab), [address], [place], [address], 09/01/2025 13:18:14 TSH + free T4, serum 2024 [facility] (Lab), [address], [place], [address], 09/01/2025 13:18:14 vitamin B12 + folate, serum or blood 2024 [facility] (Lab), [address], [place], [address], 08/29/2025 08:28:40 Referral None recorded. Procedures None recorded. Surgeries None recorded. Imaging None recorded. Medication Orders diclofena c sodium 50 mg tablet,de layed release 2024 [facility] - [facility], [address] [place], [address], 08/19/2025 17:48:19 Mounjaro 10 mg/0.5 mL subcutane ous pen injector 2024 [facility] - [facility], [address] [place] [address], [place], [address], 08/19/2025 17:48:17 metformin ER 500 mg tablet,ex tended release 24 hr 2024 [facility] - [facility], [address] [place] [address], [place], [address], 08/19/2025 17:48:15 Jardiance 10 mg tablet 2024 025 [facility] - [facility], [address] [place] [address], [place], [address], 08/19/2025 17:48:19 cyclobenz aprine 5 mg tablet 2024 025 [facility] - [facility], [address] [place] [address], [place], [address], 08/19/2025 17:48:15 losartan 25 mg tablet 2024 025 [facility] - [facility], [address] [place] [address], [place], [address], 08/19/2025 17:48:14 bisoprolo l fumarate 5 mg tablet 2024 025 [facility] - [facility], [address] [place] [address], [place], [address], 08/19/2025 17:48:17 rosuvasta tin 10 mg tablet 2024 025 [facility] - [facility], [address] [place] [address], [place], [address], 08/19/2025 17:48:17 clopidogr el 75 mg tablet 2024 025 [facility] - [facility], [address] [place] [address], [place], [address], 08/19/2025 17:48:19 gabapenti n 400 mg capsule 2024 025 [facility], [address] [place] [address], [place], [address], 08/19/2025 17:48:26 Patient TargetsNo targets recorded. Patient InstructionsNo instructions recorded. Reason for Referral None Reported. Results Created Date Observation Date Name Description Value Unit Range Abnormal Flag Note LastModifiedBy Organization Detail LastModifiedTime Result Notes None recorded. Problems Name Problem SNOMED Code Status Onset Date Resolution Date Notes Provider Name and Address Organization Details Recorded Time Diabetes mellitus 57609624 Active Not Available [facility] 03:20:06 Neuropathy 026536073 Active 2021 Not Available [facility] 3 03:20:05 Arthritis 0402681 Active 2022 Not Available [facility] 3 03:20:05 Basal cell carcinoma of skin 136406720 Active 2022 Jennifer Walter APRN [address], [place], [address] , [place] - [facility] 3 10:22:52 Coronary arteriosclero sis 08438567 Active 2024 Jennifer Walter APRN [address], [place], [address] , [place] - [facility] 5 08:50:23 Problem Notes None recorded. Procedures Surgical History Date Name Laterality Status Provider Name and Address Organization Details Recorded Time 04/14/20 25 Medication Reconcilliation completed Zenaida Rae [place] - [facility] 04/14/2025 09:55:25 03/26/20 25 amputation of toe completed Zenaida Rae [place] - [facility] 04/14/2025 10:07:57 06/18/20 24 EXCISION OF CYST (SURG) completed Jennifer Walter APRN [address], [place], [address], [place] - [facility] 06/20/2024 08:09:44 05/23/20 24 EXCISION OF CYST (SURG) completed Jennifer Walter APRN [address], [place], [address], [place] [facility] 05/24/2024 08:41:37 03/16/20 24 EXCISION OF CYST (SURG) completed Jennifer Walter APRN [address], [place], [address], [place] - [facility] 04/16/2024 15:15:10 02/13/20 22 Date of Last Pap Smear completed Sara THAKKAR - [facility] 06/17/2022 09:12:37 08/27/20 21 Knee Surgery completed Sara THAKKAR - [facility] 06/17/2022 09:06:11 08/22/20 21 Colposcopy completed Sara THAKKAR - [facility] 06/17/2022 09:06:10 07/14/20 21 Date of Last Mammogram completed Sara THAKKAR - [facility] 06/17/2022 09:12:20 07/14/20 21 Date of Last Colonoscopy completed Sara THAKKAR - [facility] 06/17/2022 09:12:30 03/16/20 15 dental surgery completed Sara THAKKAR - [facility] 06/17/2022 09:06:11 11/13/19 04 Cyrosurgery of Cervix completed Sara THAKKAR - [facility] 06/17/2022 09:06:11 04/16/19 92 Caesarean Section completed Sara THAKKAR - [facility] 06/17/2022 09:06:11 11/13/18 84 Appendectomy completed Sara THAKKAR - [facility] 06/17/2022 09:06:11 11/13/18 77 Tonsillectomy completed Sara THAKKAR - [facility] 06/17/2022 09:06:11 Cardiac Cath completed [...] by subcutan eous route as directed . 05/01/ 2023 08/10 /2023 completed Not Available Not Available Not Available [...] active Not Available Not Available Not Avai shweta Mounjaro 12.5 mg/0.5 mL subcutane ous pen [...] Not Available Vitals Date Recorded Body height Respiratory rate Body mass index (BMI) Body weight Heart rate Oxygen saturation Oxygen saturation in Arterial blood by Pulse oximetry Body temperature Systolic And Diastolic Provider Name and Address Organization Details Last Updated DateTime 5 175.26 cm 18 /min 26.9 kg/m2 82923.8 1 g 76 /min 94 % 94 % 98 [degF] 126/78 mm[Hg] Zenaida Stears [place] - [facility] 17:05:51 Social History Question Answer Notes LastModified by Organizat ion Details LastModified Time Tobacco Smoking Status Former Smoker Sara Ginan [place], [place] - [facility] 06/17/2022 09:06:11 Do [...] Or The Highest Degree You Have Received? 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 Information not available 06/17/2022 Mental Status Question Answer Note LastModified by Organizat ion Details LastModified Time Do you feel stressed (tense, restless, nervous, or anxious, or unable to sleep at night)? [id number] Information not available 06/17/2022 Do you have [...] available 2021 09:06:10 Medical History Condition Response Arthritis Y Neuropathy Y Diabetes Y Gynecological History Statement/Question Response Abnormal Pap [...] Details Recorded Time Pneumococcal conjugate PCV20, polysaccharide [id number] conjugate, adjuvant, PF 025 cancelled patient objection Jennifer Walter, [facility] [address], [place], [address], [place] - [facility] 08/19/2025 17:51:05 Tdap 025 cancelled patient objection Jennifer Walter, [facility] [address], [place], [address], [place] [facility] 08/19/2025 17:51:05 zoster recombinant 020 completed Not Available [facility] 05/09/2023 03:20:06 zoster recombinant 021 completed Not Available [facility] 05/09/2023 03:20:06 Influenza, split virus, quadrivalent, preservative 021 completed Not Available [facility] 12/21/2023 15:47:54 Influenza, split virus, quadrivalent, PF 017 completed Not Available [facility] 05/09/2023 03:20:06 influenza, split (incl. purified surface antigen) 013 completed Not Available [facility] 05/09/2023 03:20:06 Influenza, split virus, quadrivalent, PF 020 completed Not Available [facility] 05/09/2023 03:20:06 Hep A-Hep B 019 completed Not Available [facility] 05/09/2023 03:20:06 Hep A-Hep B 018 completed Not Available [facility] 05/09/2023 03:20:06 Influenza, split virus, quadrivalent, PF 019 completed Not Available [facility] 05/09/2023 03:20:06 Hep A-Hep B 018 completed Not Available [facility] 05/09/2023 03:20:06 Influenza, split virus, quadrivalent, PF 018 completed Not Available [facility] 05/09/2023 03:20:06 Influenza, split virus, quadrivalent, PF 021 completed Not Available [facility] 05/09/2023 03:20:06 Past Encounters Encounter ID Performer Location Encounter Start Date Encounter Closed Date Diagnosis/Indication Diagnosis SNOMED-CT Code Diagnosis ICD10 Code Diagnosis IMO Codes Diagnosis Note [id number] Jennifer Walter APRN [facility] [address] [place] [address] 08/19/2025 16:39:19 08/19/2025 17:42:20 Type 2 diabetes mellitus 11390018 E11.9 *Diabetic Measures:M etformin:y esACE/ARB: yesASA:yes Statin:yes GLP:yesa1c 7.9% Coronary arteriosclerosis 59101097 I25.10 Essential hypertension 79984124 I10 Arthritis 0141403 M19.90 Spasm of back muscles 20 6065791 M62.830 Neuropathy 796268164 G62 .9 Pt compliant with plan of careKarandier reviewedme dication compliance discussedc sa obtainedud s:02/25/25 Pneumococc al vaccination declined 643336892 Z28.21 90395351 Tetanus di phtheria and acellular pertussis vaccination declined 5140943021 2436293 Z28.21 8934001699 HIV screen ing declined 3068187740 13848 Z53.20 1972725386 Vaccination declined 591 7066200 Z28.21 Seasonal flu vaccine offered and declined Malaise and fatigue 2717 58770 R53.81 R53.83 66724 Long-term current use of drug therapy 370719622 Z79.899 42386471 Health Concerns Section Related Observation LastModified by Organization Detai ls LastModified Time None Recorded Concern Status LastModified by Organization Details LastModified Time None Recorded Payers Encounter Date Sequence Insurance Name Policy Number Policy Gregorio Covered Member ID Gregorio Member ID Guarantor Name 08/19/2025 1 [employer] [id number] Zehra Aguayoor [id number] Zehra Shepherd Notes Date Note Type Note Provider Name and Address Organization Details Recorded Time 08/19/2025 text/html ROS as noted in the HPI 59 year old female who presents to the office today for a follow up ondiabetes and neuropathy, arthritis, hypertension,need s refills on all medspt states gabapentin helps with her neuropathy. pt states it helps with the symptoms so she can stand on her feet to workpt states she is feeling tired Jennifer Walter, [facility] [address], [place], [address], [place] - [facility] 08/19/2025 17:51:32 OBGyn Episode No OBEpisode recorded.
--- OUTSIDE RECORDS SUMMARY | 2025-09-09 06:23 | XMS_ITS | Data Portability ---
Author Organization ARIANE KRISTIE Stevens [facility] CLOSED Address [address] [facility] [address] [place] [address] Care Team Providers Care Marinator Name Role Phone RAMANDEEP SMITH Primary Care Provider BETO VALENTE Orthopedic Surgeon [phone] [place] PARK Infant Childcare Provider Assessment No assessment recorded. Plan of Treatment Reminders Order Date Submit Date Provider Last Modified By Organization Details Last Modified Time Details Appointments None recorded. Lab None recorded. Referral None recorded. Procedures None recorded. Surgeries None recorded. Imaging XR, knee, 3 view 024 [place] Not available 4 09:23:26 Medication Orders Medrol (Duglas) 4 mg tablets in a dose pack 024 [facility] [address] [facility] RX, [address] [employer], [address], 4 09:19:12 Patient TargetsNo targets recorded. Patient InstructionsNo instructions recorded. Reason for Referral None Reported. Results Created Date Observation Date Name Description Value Unit Range Abnormal Flag Note LastModifiedBy Organization Detail LastModifiedTime 05/08/20 24 05/08/2024 XR, knee, [address] [place] [facility] vt [address] [place] [address] Patimirta t Name: ZEHRA ESPINO Mariettamirta kumar [...] By: Trey mar MD on 10:[address] [facility] [address] , [place], [address], 05/08/2024 11:15:38 05/29/20 24 05/29/2024 XR, knee, 3 view [facility] [address] [facility] [place] [address] Patien t Name: ZEHRA kumar : 1964 Patien t Orderi ng [facility] er: ANUJ KIRAN EXAM DATE: 2023 EXAM: [...] By: Trey mar MD on 9:[address] Radiology [place] [address] , [place], [address], 05/29/2024 10:05:59 06/26/20 24 06/26/2024 XR, joint , multi ple, 1 view [facility] [address] [place] [address] Patimirta t Name: ZEHRA kumar : 1964 [...] Trey mar MD on 8:45 AM [email or web address] [facility] Radiology [place] [address], [place], [address], 06/26/2024 09:02:34 07/22/20 24 07/22/2024 XR, knee, 3 view [facility] [address] [place] [address] Patimirta t Name: ZEHRA kumar : 1964 [...] MD on 07/22/20 24 9:03 AM [email or web address] [facility] Radiology [place] [address] , [place], [address], 07/22/2024 10:07:23 Result Notes Documentation Provider Name and Address Organization Details Recorded Time [facility]r, K[facility], 3 [facility] [address] [place] [address] Patient Name: ZEHRA ESPINO Patient : 1965 [...] By: Olvin Singh MD KIRAN PA-C [address] [place], [address], [facility] 05/08/2024 11:15:38 Xr, Knee, 3 View : [facility] [place] [address] [place] [address] Patient Name: ZEHRA ESPINO Patient : 1965 [...] By: Olvin Singh MD KIRAN PA-C [address] [place], [address], [facility] 05/29/2024 10:05:59 Xr, Joint, Multiple, 1 [facility] [address] [place] [address] Patient Name: ZEHRA ESPINO Patient : 1965 [...] By: Olvin Singh MD KIRAN PA-C [address] [place], [address], [facility] 06/26/2024 09:02:34 Xr, Knee, 3 View : [facility] [address] [place] [address] Patient Name: ZEHRA ESPINO Patient : 1965 [...] By: Olvin Singh MD KIRAN PA-C [address] [place], [address], [facility] 07/22/2024 10:07:23 Problems Name Problem SNOMED Code Status Onset Date Resolution Date Notes Provider Name and Address Organization Details Recorded Time Radial styloid tenosynov itis 72675955 Active 2014 From Automated Load;Prov ider: Myron Thornton;S tatus: Active Not Available [facility] 6 08:50:20 Idiopathi c osteoarth ritis 983298591 Active 2014 From Automated Load;Prov ider: Myron Thornton;S tatus: Active Not Available [facility] 6 08:50:20 Skin sensation disturban ce 13018328 Active 2014 From Automated Load;Prov ider: Myron Thornton;S tatus: Active Not Available [facility] 6 08:50:20 Finding of sensation of skin Active 2014 From Automated Load;Prov ider: Myron Thornton;S tatus: Active Not Available [facility] 6 08:50:20 Snapping thumb syndrome 03541075 Active 2014 From Automated Load;Prov ider: Myron Thornton;S tatus: Active Not Available [facility] 6 08:50:20 Injury of tendon of the rotator cuff of shoulder 839437234 Active 2018 PEDRO CHAVES II PT, DPT [address] [place], [address] , [facility] 9 07:20:38 Muscle weakness 90114285 Active 2018 PEDRO CHAVES II PT, DPT [address] [place], [address] , [facility] 9 07:20:39 Spasm 75293743 Active 2018 PEDRO CHAVES II PT, DPT [address] [place], [address] , [facility] 9 07:20:40 Muscular incoordin ation 93965867 Active 2018 PEDRO CHAVES II, PT, DPT [address] [place], [address] , [facility] 9 07:20:41 History of operative procedure on shoulder 269307984 Active 2018 PEDRO CHAVES II, PT, DPT [address] [place], [address] , [facility] 9 11:27:20 Biceps tendiniti s 060737332 Active 2018 PEDRO CHAVES II, PT, DPT [address] [place], [address] , [facility] 9 11:27:20 History of arthrosco py of knee joint 922525675 Active 2018 Gigi caal [facility] 9 16:25:08 Abnormal gait 21804288 Active 2018 Gigi caal [facility] 9 16:25:22 Coronary arteriosc lerosis 61078530 Active 2023 EMMANUELLE Andrew MD [address] [place], [address] , [facility] 4 17:48:09 History of percutane ous coronary intervent ion 623652786 Active 2023 EMMANUELLE Andrew MD [address] [place], [address] , [facility] 4 17:48:10 Type 2 diabetes mellitus without complicat ion 524092767 Active 2023 EMMANUELLE Andrew MD [address] [place], [address] , [facility] 4 17:48:11 Osteoarth ritis of left knee joint 67062931022 9109 Active 2023 EMMANUELLE Andrew MD [address] [place] [address], [address] , [facility] 17:48:13 Problem Notes None recorded. Procedures Surgical History Date Name Laterality Status Provider Name and Address Organization Details Recorded Time 04/17/20 24 Total knee arthroplasty completed Mekhi Weathers [facility] 05/29/2024 09:32:34 04/11/20 24 PCM Visit completed Mekhi Weathers [facility] 04/11/2024 14:50:11 11/21/19 24 Injection - Joint/Bursa, Major completed Holly Umanzor [facility] 11/21/2023 08:46:28 05/22/20 23 Injection - Joint/Bursa, Major completed Jerod Del Castillo [facility] 06/23/2023 07:49:10 05/22/20 23 Injection - Joint/Bursa, Second, Major completed Rosalind Ferreira [facility] 05/22/2023 17:27:54 08/16/20 22 Injection - Trigger Finger, Ortho completed MYRON THORNTON MD [address] [place] [address], [address], [facility] 08/16/2022 09:40:25 04/20/20 22 Trigger Finger Release - Kory completed MYRON THORNTON MD [facility] [place], [address], [facility] 04/20/2022 08:01:04 02/26/20 22 Injection - Trigger Finger, Ortho completed MYRON THORNTON MD [address] [place] [address], [address], [facility] 02/25/2022 10:45:00 12/20/19 22 Injection - Joint/Bursa, Major completed BETO VALENTE MD [address] [place] [address], [address], [facility] 01/02/2022 17:35:18 09/02/20 21 Suture/Staple removal completed TY VARGAS PA-C [address] [place] [address], [address], [facility] 09/03/2021 08:52:33 08/27/20 21 Orthopedic Surgery completed Florencio Christie [facility] 09/02/2021 08:56:23 05/24/20 21 Injection - Joint/Bursa, Major completed BETO VALENTE MD [address] [place], [address], [facility] 06/13/2021 22:49:50 05/18/20 21 Injection - Joint/Bursa, Major completed BETO VALENTE MD [address] [place], [address], [facility] 05/18/2021 22:13:50 07/13/20 20 Injection - Joint/Bursa, Major completed BETO VALENTE MD [address] [place], [address], [facility] 07/13/2020 10:17:56 01/27/20 20 Injection - Joint/Bursa, Major completed Kristine Claros [facility] 01/27/2020 12:22:40 01/27/20 20 Aspiration Joint/Bursa, Major completed BETO VALENTE MD [address] [place], [address], [facility] 01/27/2020 13:00:00 09/23/20 19 Injection - Joint/Bursa, Major completed Jerod Del Castillo [facility] 09/23/2019 11:26:13 08/05/20 19 PT Manual Therapy completed PEDRO CHAVES II, PT, DPT [address] [place], [address], [facility] 08/12/2019 05:18:25 08/05/20 19 PT Therapeutic Exercise completed PEDRO CHAVES II, PT, DPT [address] [place], [address], [facility] 08/12/2019 05:18:06 08/01/20 19 PT Manual Therapy completed PEDRO CHAVES II, PT, DPT [address], [address], [facility] 08/01/2019 09:40:45 08/01/20 19 PT Therapeutic Exercise completed PEDRO W CHAVES II, PT, DPT [address] [place], [address], [facility] 08/01/2019 09:40:21 07/30/20 19 PT Therapeutic Exercise completed PEDRO GOODWINT II, PT, DPT [address] [place], [address], [facility] 08/12/2019 05:12:01 07/30/20 19 PT Manual Therapy completed PEDRO CHAVES II, PT, DPT [address] [place], [address], [facility] 08/12/2019 05:08:25 07/30/20 19 PT Therapeutic Exercise completed PEDRO CHAVES II, PT, DPT [address] [place], [address], [facility] 08/12/2019 05:08:11 07/25/20 19 PT Manual Therapy completed PEDRO CHAVES II, PT, DPT [address] [place], [address], [facility] 08/05/2019 12:06:04 07/25/20 19 PT Therapeutic Exercise completed PEDRO CHAVES II, PT, DPT [address] [place], [address], [facility] 08/05/2019 12:05:37 07/23/20 19 PT Manual Therapy completed PEDRO CHAVES II, PT, DPT [address] [place], [address], [facility] 07/24/2019 11:16:21 07/23/20 19 PT Therapeutic Exercise completed PEDRO GOODWINT II, PT, DPT [address] [place], [address], [facility] 07/24/2019 11:16:02 07/23/20 19 PT Therapeutic Exercise completed PEDRO GOODWINT II, PT, DPT [address] [place], [address], [facility] 07/23/2019 13:02:26 07/19/20 19 PT Therapeutic Exercise completed PEDRO GOODWINT II, PT, DPT [address] [place], [address], [facility] 07/23/2019 12:54:51 07/19/20 19 PT Manual Therapy completed PEDRO CHAVES II, PT, DPT [address] [place], [address], [facility] 07/25/2019 14:39:48 07/19/20 19 PT Therapeutic Exercise completed PEDRO CHAVES II, PT, DPT [address] [place], [address], [facility] 07/25/2019 14:39:27 07/16/20 19 PT Manual Therapy completed PEDRO CHAVES II, PT, DPT [address], [address], [facility] 07/16/2019 14:27:43 07/16/20 19 PT Therapeutic Exercise completed PEDRO CHAVES II, PT, DPT [address] [place], [address], [facility] 07/16/2019 14:27:14 07/11/20 19 PT Manual Therapy completed PEDRO CHAVES II, PT, DPT [address] [place], [address], [facility] 07/24/2019 12:37:40 07/11/20 19 PT Therapeutic Exercise completed PEDRO CHAVES II, PT, DPT [address] [place], [address], [facility] 07/24/2019 12:37:23 07/09/20 19 PT Manual Therapy completed PEDRO CHAVES II, PT, DPT [address] [place], [address], [facility] 07/09/2019 15:01:21 07/09/20 19 PT Therapeutic Exercise completed PEDRO CHAVES II, PT, DPT [address] [place], [address], [facility] 07/09/2019 15:01:08 07/09/20 19 PT Therapeutic Exercise completed PEDRO GOODWINT II, PT, DPT [address] [place], [address], [facility] 07/09/2019 14:59:26 07/04/20 19 PT Manual Therapy completed PEDRO CHAVES II, PT, DPT [address] [place], [address], [facility] 07/04/2019 09:02:44 07/04/20 19 PT Therapeutic Exercise completed PEDRO CHAVES II, PT, DPT [address] [place], [address], [facility] 07/04/2019 09:02:48 07/04/20 19 PT Manual Therapy completed PEDRO CHAVES II, PT, DPT [address] [place], [address], [facility] 07/04/2019 15:33:26 07/04/20 19 PT Therapeutic Exercise completed PEDRO CHAVES II, PT, DPT [address] [place], [address], [facility] 07/04/2019 15:33:12 07/01/20 19 PT Manual Therapy completed PEDRO CHAVES II, PT, DPT [address] [place], [address], [facility] 07/02/2019 16:12:04 07/01/20 19 PT Therapeutic Exercise completed PEDRO CHAVES II, PT, DPT [address] [place], [address], [facility] 07/01/2019 10:07:01 06/27/20 19 PT Evaluation - Low Complexity completed [facility] 06/27/2019 16:21:15 06/27/20 19 PT Manual Therapy completed [facility] 06/27/2019 11:06:21 06/27/20 19 PT Therapeutic Exercise completed [facility] 06/27/2019 11:05:41 06/24/20 19 PT Manual Therapy completed [facility] 06/24/2019 08:45:21 06/24/20 19 PT Therapeutic Exercise completed [facility] 06/24/2019 08:45:24 06/20/20 19 PT Manual Therapy completed [facility] 06/20/2019 13:05:12 06/20/20 19 PT Therapeutic Exercise completed [facility] 06/20/2019 13:01:47 06/17/20 19 PT Manual Therapy completed [facility] 06/17/2019 11:03:37 06/17/20 19 PT Therapeutic Exercise completed [facility] 06/17/2019 11:03:39 06/13/20 19 PT Manual Therapy completed PEDRO CHAVES II, PT, DPT [address] [place], [address], [facility] 06/18/2019 10:21:00 06/13/20 19 PT Therapeutic Exercise completed PEDRO CHAVES II, PT, DPT [address] [place], [address], [facility] 06/18/2019 10:20:41 06/13/20 19 Suture/Staple removal completed Gian LOAIZA PA-C [address] [place], [address], [facility] 06/18/2019 09:08:20 06/10/20 19 PT Manual Therapy completed [facility] 06/10/2019 10:05:46 06/10/20 19 PT Therapeutic Exercise completed [facility] 06/10/2019 10:04:35 06/07/20 19 [facility] 14:15:48 06/05/20 19 PT Manual Therapy completed [facility] 06/05/2019 09:56:35 06/05/20 19 PT Therapeutic Exercise completed [facility] 06/05/2019 09:55:56 05/27/20 19 PT Manual Therapy completed PEDRO CHAVES II, PT, DPT [address] [place], [address], [facility] 05/27/2019 11:03:26 05/27/20 19 PT Therapeutic Exercise completed PEDRO GOODWINT II, PT, DPT [address] [place], [address], [facility] 05/27/2019 11:03:14 05/23/20 19 [facility] 11:01:09 05/23/20 19 PT Therapeutic Exercise [facility] 10:59:31 05/20/20 19 PT Manual Therapy completed PEDRO GOODWINT II, PT, DPT [address] [place], [address], [facility] 05/20/2019 16:07:37 05/20/20 19 PT Therapeutic Exercise completed PEDRO GOODWINT II, PT, DPT [address] [place], [address], [facility] 05/20/2019 16:07:22 05/15/20 19 PT Manual Therapy completed PEDRO GOODWINT II, PT, DPT [address] [place], [address], [facility] 05/15/2019 09:24:02 05/15/20 19 PT Therapeutic Exercise completed PEDRO GOODWINT II, PT, DPT [address] [place], [address], [facility] 05/15/2019 09:23:46 05/13/20 19 PT Manual Therapy completed PEDRO GOODWINT II, PT, DPT [address] [place], [address], [facility] 05/14/2019 12:07:47 05/13/20 19 PT Therapeutic Exercise completed PEDRO GOODWINT II, PT, DPT [address] [place], [address], [facility] 05/14/2019 12:07:30 05/10/20 19 PT Manual Therapy completed PEDRO GOODWINT II, PT, DPT [address] [place], [address], [facility] 05/14/2019 12:15:43 05/10/20 19 PT Therapeutic Exercise completed PEDRO GOODWINT II, PT, DPT [address] [place], [address], [facility] [place] [facility] 05/14/2019 12:15:21 05/07/20 19 PT Manual Therapy completed PEDRO GOODWINT II, PT, DPT [address] [place], [address], [facility] 05/07/2019 09:37:22 05/07/20 19 PT Therapeutic Exercise completed PEDRO GOODWINT II, PT, DPT [address] [place], [address], [facility] 05/07/2019 09:37:12 04/30/20 19 PT Manual Therapy completed PEDRO GOODWINT II, PT, DPT [address] [place], [address], [facility] 04/30/2019 12:48:45 04/30/20 19 PT Therapeutic Exercise completed PEDRO GOODWINT II, PT, DPT [address] [place], [address], [facility] 04/30/2019 12:48:18 04/26/20 19 PT Manual Therapy completed PEDRO GOODWINT II, PT, DPT [address] [place], [address], [facility] 04/26/2019 09:24:58 04/26/20 19 PT Therapeutic Exercise completed PEDRO GOODWINT II, PT, DPT [address] [place], [address], [facility] 04/26/2019 09:24:35 04/23/20 19 PT Manual Therapy completed PEDRO GOODWINT II, PT, DPT [address] [place], [address], [facility] 04/23/2019 09:22:49 04/23/20 19 PT Therapeutic Exercise completed PEDRO GOODWINT II, PT, DPT [address] [place], [address], [facility] [place] [facility] 04/23/2019 09:22:36 04/19/20 19 PT Manual Therapy completed PEDRO GOODWINT II, PT, DPT [address] [place], [address], [facility] 04/19/2019 09:38:21 04/19/20 19 PT Therapeutic Exercise completed PEDRO CHAVES II, PT, DPT [address] [place], [address], [facility] 04/19/2019 09:38:09 04/16/20 19 PT Manual Therapy completed PEDRO CHAVES II, PT, DPT [address] [place], [address], [facility] 04/19/2019 14:52:48 04/16/20 19 PT Therapeutic Exercise completed PEDRO CHAVES II, PT, DPT [address] [place], [address], [facility] 04/19/2019 14:52:18 04/11/20 19 PT Manual Therapy completed PEDRO CHAVES II, PT, DPT [address] [place], [address], [facility] 04/11/2019 13:14:32 04/11/20 19 PT Therapeutic Exercise completed PEDRO CHAVES II, PT, DPT [address] [place], [address], [facility] 04/11/2019 13:14:26 03/27/20 19 PT Evaluation - Moderate Complexity completed PEDRO CHAVES II, PT, DPT [address] [place], [address], [facility] 03/27/2019 11:19:26 03/27/20 19 PT Therapeutic Exercise completed PEDRO GOODWINT II, PT, DPT [address] [place], [address], [facility] 03/27/2019 11:19:48 03/14/20 19 Suture/Staple removal completed Gian LOAIZA PA-C [address] [place], [address], [facility] 03/17/2019 16:37:13 03/08/20 19 Orthopedic Surgery completed Florencio Christie [facility] [place] [facility] 03/14/2019 14:49:02 02/06/20 19 PT Manual Therapy completed PEDRO CHAVES II, PT, DPT [address] [place], [address], [facility] 02/05/2019 11:48:02 02/06/20 19 PT Therapeutic Exercise completed PEDRO CHAVES II, PT, DPT [address] [place], [address], [facility] 02/05/2019 11:48:00 01/31/20 19 PT Therapeutic Exercise completed PEDRO GOODWINT II, PT, DPT [address] [place], [address], [facility] 02/03/2019 21:33:58 01/24/20 19 PT Therapeutic Exercise completed PEDRO CHAVES II, PT, DPT [address] [place], [address], [facility] 01/23/2019 10:48:24 01/17/20 19 PT Therapeutic Exercise completed PEDRO CHAVES II, PT, DPT [address] [place], [address], [facility] 01/16/2019 08:36:06 01/09/20 19 PT Manual Therapy completed PEDRO CHAVES II, PT, DPT [address] [place], [address], [facility] 01/09/2019 10:18:54 01/09/20 19 PT Therapeutic Exercise completed PEDRO CHAVES II, PT, DPT [address] [place], [address], [facility] 01/09/2019 10:18:36 01/01/20 19 PT Manual Therapy completed PEDRO GOODWINT II, PT, DPT [address] [place], [address], [facility] [place] [facility] 01/01/2019 14:17:20 01/01/20 19 PT Therapeutic Exercise completed PEDRO GOODWINT II, PT, DPT [address] [place], [address], [facility] 01/01/2019 14:17:07 12/28/19 19 PT Manual Therapy completed PEDRO Hemalatha ANASTACIO II, PT, DPT [address] [place], [address], [facility] 01/03/2019 08:09:40 12/28/19 19 PT Therapeutic Exercise completed PEDRO Penny CHAVES II, PT, DPT [address] [place], [address], [facility] 01/03/2019 08:09:27 12/20/19 19 PT Therapeutic Exercise completed PEDRO Hemalatha CHAVES II, PT, DPT [address] [place], [address], [facility] 12/20/2018 11:07:47 12/06/19 19 PT Evaluation - Moderate Complexity completed PEDRO CHAVES II, PT, DPT [address] [place], [address], [facility] 12/20/2018 07:13:15 12/06/19 19 PT Therapeutic Exercise completed PEDRO Penny ANASTACIO II, PT, DPT [address] [place], [address], [facility] 12/20/2018 07:13:36 03/20/20 17 Op Note completed MYRON THORNTON MD [address] [place] [place], [address], [facility] 03/20/2017 08:16:54 Imaging Results None recorded. Procedure Notes None recorded. Medical Equipment None Reported. Allergies Allergen ID Allergen Name Allergen Category Reaction Reaction Severity Criticality Documentation Date Start Date Code Code System Note Provider Name and Address Organization Details Recorded Time 969643 lisinopri l medicatio n cough Not available Not available 11/29/2018 44424 RxNorm [facility] 09:54:54 Medications Name [...] Not Available Not Available No t Available [place] 10 mg-325 mg tablet Take 1 tablet [...] Updated DateTime 05/08/2024 175.26 cm 26.4 kg/m2 83758.03 g 0 Lilia Rashid [facility] 05/08/2024 10:57:45 Date Recorded Body height Body mass index (BMI) Body weight Pain severity - 0-10 verbal numeric rating [Score] - Reported Systolic And Diastolic Provider Name and Address Organization Details Last Updated DateTime 05/29/2024 175.26 cm 26.4 kg/m2 99068.03 g 2 125/80 mm[Hg] Mekhi Weathers [facility] 09:32:10 Date Recorded Body height Provider Name an d Address Organization Details Last Updated DateTime 06/26/2024 175.26 cm Bola Carlos [facility] 06/26/2024 08:46:55 Date Recorded Body height Body mass index (BMI) Body weight Provider Name and Address Organization Details Last Updated DateTime 07/22/2024 175.26 cm 26.4 kg/m2 53585.03 g Holly Umanzor [facility] 07/22/2024 08:02:03 Social History Question Answer Notes LastModified by Organizat ion Details LastModified Time Tobacco Smoking Status [facility] 15:28:02 Accident Related Injury Yes [email or web address] Information not available 03/03/2017 What Is Your Level Of Caffeine Consumption? Moderate [email or web address] Information not available 03/03/2017 Which Of Your Hands Is Dominant? Right [email or web address] Information not available 03/03/2017 Which Hand Is Involved? Right [email or web address] Information not available 03/03/2017 Rate The Severity Of Your Symptoms: (0-10 With 0=none And 10=worst Possible) 3 [email or web address] Information not available 02/05/2019 When Are Your Symptoms The Worst? Night Day Neither Neither [email or web address] Information not available 03/03/2017 Date Of Injury: 06/11/2015 Informati on not available 03/03/2017 Have You Been Treated For This Problem Before? Yes [email or web address] Information not available 03/03/2017 How Long Have You Had These Symptoms? 06/11/2015 [email or web address] Information not available 03/03/2017 Will This Be Filed As Workers' Compensation? Yes [email or web address] Information not available 03/03/2017 What Was The Date Of Your Most Recent Tobacco Screening? 05/13/2019 Information not available 12/31/2019 Has Tobacco Cessation Counseling Been Provided? No [email or web address] Information not available 03/03/2017 Work Related Injury? Yes [email or web address] Information not available 03/03/2017 Sex: Unknown Functional Status Question Answer Note LastModified by Organizat ion Details LastModified Time Do you use any illicit or recreational drugs? No [email or web address] Information not available 03/03/2017 What is your level of alcohol consumption? Occasional [email or web address] Information not available 03/03/2017 Are you currently employed? Yes [email or web address] Information not available 03/03/2017 What is your occupation? [employer] [email or web address] Information not available 03/03/2017 Mental Status None recorded. Family History Relationship Description Onset Age of this Age Resolved Age Notes LastModified by Organization Details LastModified Time Father No current problems or disability [email or web address] Not available 03/03 15:27:56 Mother No current problems or disability Not available 03/03 15:27:56 Medical History Condition Response Allergies/Hayfever N Other N Anxiety/Depression N Gout N Thyroid Disease N Kidney Stones N Heart Conditions N Hernia N Migraines N COPD N Glaucoma N Pneumonia N Skin Problems N Immune System Disorder N Anesthesia Complications N Heart Attack (ME) N Mental Illness N Neurological Problems N [...] ICD10 Code Diagnosis IMO Codes Diagnosis Note [id number] MYRON THORNTON MD [facility] [address] [place] [address] 03/03/2017 14:23:32 03/03/2017 16:45:25 Snapping thumb syndrome 53915937 M65.311 Right trigger thumb Osteoarthr osis of the carpometacarpal joint of the thumb 57646622 M18.11 Previous x-rays of the right wrist dated 07/30/15 demonstrat e mild arthritic changes of the thumb [facility] joint ([facility]: 01/19/16) [id number] MYRON THORNTON MD SURGERY SCHEDULE [address] [place] [address] 03/20/2017 06:04:45 03/20/2017 06:10:21 [id number] MYRON THORNTON MD [facility] [address] [place] [address] 03/31/2017 15:16:43 03/31/2017 16:07:47 Postoperative care 400618378 Z48.89 2 weeks status post right trigger thumb release (03/20/17) [id number] YMRON THORNTON MD [facility] [address] [place] [address] 05/05/2017 15:10:04 05/05/2017 16:51:23 Postoperative care 523985926 Z48.89 6 weeks status post right trigger thumb release (03/20/17) [id number] BETO VALENTE MD [facility] [address] [place] [address] 11/29/2018 09:31:09 11/29/2018 12:08:29 Pain of right shoulder joint 8886227635 5752713 M25.546 [id number] PEDRO CHAVES II, PT, DPT PHYSICAL THERAPY / HAND THERAPY [facility] [address] [place] [address] 12/06/2018 13:43:55 12/20/2018 11:22:54 Injury of tendon of the rotator cuff of shoulder 320760732 S46.091D Muscle weakness 19113637 M62.81 Spasm 05130034 R25.2 Muscular incoordination 11624604 R27.8 [id number] PEDRO CHAVES II, PT, DPT PHYSICAL THERAPY / HAND THERAPY [facility] [address] [place] [address] 12/20/2018 10:12:44 12/20/2018 11:46:47 Injury of tendon of the rotator cuff of shoulder 460937121 S46.091D Muscle weakness 72653548 M62.81 Muscular incoordination 21387538 R27.8 Spasm 87172450 R25.2 [id number] PEDRO CHAVES II, PT, DPT PHYSICAL THERAPY / HAND THERAPY [facility] [address] [place] [id number] 12/28/2018 08:00:23 01/03/2019 10:08:18 Injury of tendon of the rotator cuff of shoulder 663479823 S46.091D Muscle weakness 28415274 M62.81 Muscular incoordination 41768828 R27.8 Spasm 82196469 R25.2 [id number] PEDRO CHAVES II, PT, DPT PHYSICAL THERAPY / HAND THERAPY [facility] [address] [place] [address] 01/01/2019 10:25:25 01/01/2019 12:32:38 Muscle weakness 87768062 M62.81 Injury of tendon of the rotator cuff of shoulder 821832649 S46.091D Muscular incoordination 25502680 R27.8 Spasm 01397143 R25.2 [id number] BETO VALENTE MD [facility] [place] [address] [place] [id number] 01/01/2019 10:25:46 01/01/2019 14:47:36 Pain of right shoulder joint 5311626414 [id number] M25.539 [id number] PEDRO CHAVES II, PT, DPT PHYSICAL THERAPY / HAND THERAPY [facility] [address] [place], [place] [address] [address] 01/09/2019 08:53:33 01/09/2019 10:33:49 Muscle weakness 79309268 M62.81 Injury of tendon of the rotator cuff of shoulder 633362220 S46.091D Muscular incoordination 91622506 R27.8 Spasm 75753020 R25.2 [id number] PEDRO CHAVES II, PT, DPT PHYSICAL THERAPY / HAND THERAPY [facility] [address] [place], [place] [address] [address] 01/16/2019 07:16:12 01/16/2019 08:39:53 Injury of tendon of the rotator cuff of shoulder 899597251 S46.091D Muscle weakness 12515716 M62.81 Muscular incoordination 76841781 R27.8 Spasm 24067323 R25.2 [id number] PEDRO CHAVES II, PT, DPT PHYSICAL THERAPY / HAND THERAPY [facility] [address] [place], [place] [address] [address] 01/23/2019 07:26:00 01/23/2019 13:26:37 Muscle weakness 42683502 M62.81 Injury of tendon of the rotator cuff of shoulder 866848328 S46.091D Muscular incoordination 24244043 R27.8 Spasm 27376518 R25.2 [id number] PEDRO CHAVES II, PT, DPT PHYSICAL THERAPY / HAND THERAPY [facility] [address] [place], [place] [address] [id number] 01/30/2019 07:24:14 02/04/2019 08:52:18 Injury of tendon of the rotator cuff of shoulder 813966021 S46.091D Muscle weakness 81194850 M62.81 Muscular incoordination 53300987 R27.8 Spasm 92523627 R25.2 [id number] PEDRO CHAVES II, PT, DPT PHYSICAL THERAPY / HAND THERAPY [facility] [address] [place] [address] 02/05/2019 10:45:34 02/05/2019 13:35:49 Muscle weakness 74152351 M62.81 Injury of tendon of the rotator cuff of shoulder 961026630 S46.091D Muscular incoordination 52759184 R27.8 Spasm 86589350 R25.2 [id number] BETO VALENTE MD [facility] [address] [place] [address] 02/05/2019 11:48:20 02/05/2019 13:47:18 Pain of right shoulder joint 5258110560 0462729 M25.638 [id number] BETO VALENTE MD SURGERY SCHEDULE [address] [place] [address] 03/08/2019 09:13:57 03/08/2019 09:35:08 [id number] Gian LOAIZA PA-C [facility] [place] [address] 03/14/2019 14:42:11 03/14/2019 15:46:39 Postoperative care 775000595 Z48.89 [id number] PEDRO CHAVES II, PT, DPT PHYSICAL THERAPY / HAND THERAPY [facility] [address] [place] [address] 03/27/2019 07:51:23 03/27/2019 13:04:43 Muscle weakness 57134946 M62.81 History of operative procedure on shoulder 785114560 Z98.890 Biceps tendinitis 145222 007 M75.21 Muscular incoordination 82687278 R27.8 [id number] PEDRO CHAVES II, PT, DPT PHYSICAL THERAPY / HAND THERAPY [facility] [address] [place] [address] 04/11/2019 08:18:18 04/11/2019 09:23:31 Biceps tendinitis 212759025 M75.21 Muscle weakness 34525460 M62.81 Muscular incoordination 44951675 R27.8 History of operative procedure on shoulder 165187764 Z98.891 [id number] Gian LOAIZA PA-C [facility] [address] [place] [address] 04/11/2019 08:18:50 04/11/2019 09:59:59 Postoperative care 745180465 Z48.89 [id number] PEDRO CHAVES II, PT, DPT PHYSICAL THERAPY / HAND THERAPY [facility] [address] [place] [address] 04/16/2019 08:21:36 04/22/2019 09:36:50 Biceps tendinitis 619793028 M75.21 Muscle weakness 14814803 M62.81 Muscular incoordination 32269513 R27.8 History of operative procedure on shoulder 314109825 Z98.056 [id number] PEDRO CHAVES II, PT, DPT PHYSICAL THERAPY / HAND THERAPY [facility] [address] [place] [address] 04/19/2019 08:45:02 04/19/2019 15:37:00 Biceps tendinitis 559812942 M75.21 Muscle weakness 20464168 M62.81 Muscular incoordination 76444927 R27.8 History of operative procedure on shoulder 258816782 Z98.384 [id number] BETO VALENTE MD [facility] [address] [place] [address] 04/22/2019 14:42:50 05/06/2019 09:40:22 Tear of lateral meniscus of knee 229149642 S83.281A Pes anseri nus bursitis of right knee 4900946456 032636 M70.51 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 376474362 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 [id number] PEDRO CHAVES II, PT, DPT PHYSICAL THERAPY / HAND THERAPY [facility] [address] [place] [address] 04/23/2019 08:45:17 04/23/2019 12:56:49 Biceps tendinitis 563642209 M75.21 Muscle weakness 34221295 M62.81 Muscular incoordination 64119460 R27.8 History of operative procedure on shoulder 233330836 Z98.224 [id number] PEDRO CHAVES II, PT, DPT PHYSICAL THERAPY / HAND THERAPY [facility] [address] [address] 04/26/2019 08:45:45 05/01/2019 10:20:49 Biceps tendinitis 414906532 M75.21 Muscle weakness 25971419 M62.81 History of operative procedure on shoulder 340588095 Z98.890 Muscular incoordination 43364624 R27.8 [id number] BETO VALENTE MD [facility] [address] [address] 04/30/2019 08:04:05 04/30/2019 10:03:41 Pain in right knee 4376289428 62804 M25.720 [id number] PEDRO CHAVES II, PT, DPT PHYSICAL THERAPY / HAND THERAPY [facility] [address] [address] 04/30/2019 08:06:50 05/01/2019 13:41:09 Biceps tendinitis 644698167 M75.21 Muscle weakness 89287103 M62.81 Muscular incoordination 07097203 R27.8 History of operative procedure on shoulder 792301622 Z98.894 [id number] PEDRO CHAVES II, PT, DPT PHYSICAL THERAPY / HAND THERAPY [facility] [address] [address] 05/07/2019 08:17:18 05/07/2019 09:55:31 Biceps tendinitis 316076544 M75.21 Muscle weakness 89085275 M62.81 History of operative procedure on shoulder 867938503 Z98.890 Muscular incoordination 54166660 R27.8 [id number] PEDRO CHAVES II, PT, DPT PHYSICAL THERAPY / HAND THERAPY [facility] [address] [address] 05/10/2019 08:53:18 05/21/2019 08:14:13 Biceps tendinitis 946406035 M75.21 Muscle weakness 17572349 M62.81 Muscular incoordination 81453566 R27.8 History of operative procedure on shoulder 643505348 Z98.444 [id number] PEDRO CHAVES II, PT, DPT PHYSICAL THERAPY / HAND THERAPY [facility] [address] [address] 05/13/2019 08:50:22 05/15/2019 08:31:09 Biceps tendinitis 091581445 M75.21 Muscle weakness 04232816 M62.81 Muscular incoordination 52231770 R27.8 History of operative procedure on shoulder 747989045 Z98.440 [id number] BETO VALENTE MD [facility] [address] [place] [address] 05/13/2019 08:51:00 05/13/2019 15:21:13 Pain of right shoulder joint 1753759348 9568478 M25.281 [id number] PEDRO CHAVES II, PT, DPT PHYSICAL THERAPY / HAND THERAPY [facility] [address] [place] [address] 05/15/2019 08:27:39 05/15/2019 10:39:55 Biceps tendinitis 272520547 M75.21 Muscle weakness 79278627 M62.81 Muscular incoordination 40924859 R27.8 History of operative procedure on shoulder 939878919 Z98.852 [id number] PEDRO CHAVES II, PT, DPT PHYSICAL THERAPY / HAND TH[facility]APY [facility] [address] [place] [address] 05/20/2019 08:18:17 05/20/2019 17:28:12 Biceps tendinitis 957826267 M75.21 Muscle weakness 62853900 M62.81 Muscular incoordination 69290382 R27.8 History of operative procedure on shoulder 749535783 Z98.265 [id number] PEDRO CHAVES II, PT, DPT PHYSICAL THERAPY / HAND TH[facility]APY [facility] [address] [place] [address] 05/23/2019 09:54:02 05/24/2019 10:32:36 Biceps tendinitis 900675342 M75.21 Muscle weakness 46627568 M62.81 Muscular incoordination 56531772 R27.8 Injury of tendon of the rotator cuff of shoulder 294283614 S46.091D [id number] PEDRO CHAVES II, PT, DPT PHYSICAL THERAPY / HAND THERAPY [facility] [address] [place] [address] 05/27/2019 09:48:34 05/27/2019 11:36:38 Biceps tendinitis 758692197 M75.21 Muscle weakness 88776765 M62.81 Muscular incoordination 55854938 R27.8 History of operative procedure on shoulder 679849772 Z98.300 [id number] SEAN GUIDRY, JOSE A PHYSICAL THERAPY / HAND THERAPY [facility] [address] [place] [address] 06/05/2019 08:42:58 06/05/2019 11:40:58 Biceps tendinitis 197483683 M75.21 Muscle weakness 44053880 M62.81 Muscular incoordination 77104239 R27.8 History of operative procedure on shoulder 369244716 Z98.890 Injury of tendon of the rotator cuff of shoulder 942545006 S46.001D [id number] BETO VALENTE MD SURGERY SCHEDULE [address] [place] [address] 06/07/2019 06:19:58 06/07/2019 06:21:26 [id number] PEDRO CHAVES II, PT, DPT PHYSICAL THERAPY / HAND THERAPY [facility] [address] [place] [address] 06/10/2019 08:50:50 06/17/2019 11:34:27 Biceps tendinitis 975326432 M75.21 Muscle weakness 05180028 M62.81 Injury of tendon of the rotator cuff of shoulder 802136416 S46.091D Muscular incoordination 76465192 R27.8 [id number] R AUGUSTUS LOAIZA PA-C [facility] [address] [place] [address] 06/13/2019 14:11:08 06/13/2019 14:54:35 Postoperative care 371813678 Z48.89 [id number] PEDRO CHAVES II, PT, DPT PHYSICAL THERAPY / HAND THERAPY [facility] [place] [address] [address] 06/13/2019 14:13:24 06/18/2019 14:53:33 Biceps tendinitis 883259309 M75.21 Muscle weakness 08380751 M62.81 History of operative procedure on shoulder 714342193 Z98.890 Muscular incoordination 60855862 R27.8 [id number] PEDRO CHAVES II, PT, DPT PHYSICAL THERAPY / HAND THERAPY [facility] [place] [address] 06/17/2019 07:49:24 06/24/2019 14:45:57 Biceps tendinitis 072824978 M75.21 Muscle weakness 27851578 M62.81 Muscular incoordination 20678034 R27.8 History of operative procedure on shoulder 089578551 Z98.548 [id number] BETO VALENTE MD [facility] [place] [address] 06/17/2019 07:52:06 06/17/2019 09:40:09 Pain of right shoulder joint 3519817773 5947254 M25.498 [id number] PEDRO CHAVES II, PT, DPT PHYSICAL THERAPY / HAND THERAPY [facility] [place] [address] 06/20/2019 08:44:33 06/26/2019 10:32:07 Muscle weakness 66452452 M62.81 Muscular incoordination 98206310 R27.8 Injury of tendon of the rotator cuff of shoulder 445372605 S46.091D History of operative procedure on shoulder 894047320 Z98.868 [id number] PEDRO CHAVES II, PT, DPT PHYSICAL THERAPY / HAND TH[facility]APY [facility] [place] [address] [address] 06/24/2019 07:51:58 06/28/2019 08:06:30 Muscle weakness 94740639 M62.81 Muscular incoordination 28710312 R27.8 History of operative procedure on shoulder 988535393 Z98.890 Injury of tendon of the rotator cuff of shoulder 808317066 S46.091D [id number] PEDRO CHAVES II, PT, DPT PHYSICAL THERAPY / HAND [facility]APY [facility] [address] [place] [address] 06/27/2019 08:23:59 07/02/2019 12:57:41 Biceps tendinitis 698332175 M75.21 Muscle weakness 30861113 M62.81 Muscular incoordination 62657732 R27.8 History of operative procedure on shoulder 104952748 Z98.914 [id number] PEDRO CHAVES II, PT, DPT PHYSICAL THERAPY / HAND [facility]APY [facility] [address] [place] [address] 06/27/2019 09:05:46 07/02/2019 13:01:22 History of arthroscopy of knee joint 946272007 Z98.890 Muscle weakness 37905920 M62.81 Muscular incoordination 88958845 R27.8 Abnormal gait 45907729 R 26.9 [id number] PEDRO CHAVES II, PT, DPT PHYSICAL THERAPY / HAND [facility]APY [facility] [address] [address] 07/01/2019 09:15:09 07/02/2019 16:43:38 Biceps tendinitis 013429562 M75.21 Muscle weakness 74757937 M62.81 Injury of tendon of the rotator cuff of shoulder 164940216 S46.091D Muscular incoordination 17924526 R27.8 [id number] PEDRO CHAVES II, PT, DPT PHYSICAL THERAPY / HAND [facility]APY [facility] [address] [place] [address] 07/04/2019 08:37:58 07/04/2019 15:54:01 Biceps tendinitis 173611083 M75.21 Muscle weakness 54007601 M62.81 Muscular incoordination 08448760 R27.8 History of operative procedure on shoulder 040056577 Z98.817 [id number] PEDRO CHAVES II, PT, DPT PHYSICAL THERAPY / HAND TH[facility]APY [facility] [address] [place] [address] 07/04/2019 08:39:01 07/16/2019 16:19:15 Abnormal gait 59096323 R26.9 Muscle weakness 87458643 M62.81 Muscular incoordination 05250233 R27.8 History of arthroscopy of knee joint 032642647 Z98.957 [id number] R AUGUSTUS LOAIZA PA-C [facility] [address] [place] [address] 07/04/2019 08:39:56 07/04/2019 13:52:12 Postoperative care 533428439 Z48.89 [id number] PEDRO CHAVES II PT, DPT PHYSICAL THERAPY / HAND TH[facility]APY [facility] [address] [address] 07/09/2019 07:39:22 07/09/2019 15:11:07 Abnormal gait 21478549 R26.9 Muscle weakness 66790827 M62.81 Muscular incoordination 16979491 R27.8 History of arthroscopy of knee joint 108053337 Z98.120 [id number] PEDRO CHAVES II PT, DPT PHYSICAL THERAPY / HAND [facility]APY [facility] [address] [place] [address] 07/09/2019 07:40:03 07/09/2019 15:10:02 Biceps tendinitis 910261105 M75.21 Muscle weakness 16341366 M62.81 Muscular incoordination 78187275 R27.8 History of operative procedure on shoulder 961458617 Z98.838 [id number] PEDRO CHAVES II, PT, DPT PHYSICAL THERAPY / HAND [facility]APY [facility] [address] [place] [address] 07/11/2019 08:26:10 07/26/2019 08:02:14 Biceps tendinitis 202477193 M75.21 Muscle weakness 25679929 M62.81 Muscular incoordination 71632971 R27.8 History of operative procedure on shoulder 339408595 Z98.045 [id number] PEDRO CHAVES II, PT, DPT PHYSICAL THERAPY / HAND [facility]APY [facility] [address] [place] [address] 07/16/2019 12:44:55 07/16/2019 14:36:53 Biceps tendinitis 543918325 M75.21 Muscle weakness 56229602 M62.81 Muscular incoordination 57429175 R27.8 History of arthroscopy of knee joint 379575915 Z98.890 History of operative procedure on shoulder 236040240 Z98.021 [id number] PEDRO CHAVES II, PT, DPT PHYSICAL THERAPY / HAND [facility]Y [facility] [address] [place], [place] [address] [address] 07/19/2019 08:38:14 08/01/2019 07:13:05 Biceps tendinitis 592166930 M75.21 Muscle weakness 22558464 M62.81 Injury of tendon of the rotator cuff of shoulder 782213392 S46.091D History of operative procedure on shoulder 696849679 Z98.216 [id number] PEDRO CHAVES II, PT, DPT PHYSICAL THERAPY / HAND [facility]APY [facility] [address] [place], [place] [address] [address] 07/19/2019 08:39:44 07/24/2019 08:19:48 Abnormal gait 62240059 R26.9 Muscle weakness 13959090 M62.81 History of arthroscopy of knee joint 460451631 Z98.788 [id number] PEDRO CHAVES II PT, DPT PHYSICAL THERAPY / HAND [facility]APY [facility] [address] [place], [place] [address] [address] 07/23/2019 09:48:51 07/23/2019 13:28:20 Abnormal gait 11433202 R26.9 Muscle weakness 07750380 M62.81 Muscular incoordination 68041234 R27.8 History of arthroscopy of knee joint 252788130 Z98.650 [id number] BETO VALENTE MD [facility] [place] [address] 07/23/2019 09:51:16 07/23/2019 12:40:27 Pain of right shoulder joint 5546098341 1585978 M25.361 [id number] PEDRO CHAVES II, PT, DPT PHYSICAL THERAPY / HAND TH[facility]APY [facility] [address] [place] [address] 07/23/2019 09:52:01 07/24/2019 16:36:10 Muscle weakness 85172652 M62.81 Injury of tendon of the rotator cuff of shoulder 035577267 S46.091D Muscular incoordination 88491298 R27.8 History of operative procedure on shoulder 969747091 Z98.638 [id number] PEDRO CHAVES II, PT, DPT PHYSICAL THERAPY / HAND [facility]APY [facility] [address] [place] [address] 07/25/2019 08:46:43 08/05/2019 15:18:30 Biceps tendinitis 229469997 M75.21 Muscle weakness 57018433 M62.81 Muscular incoordination 29341119 R27.8 History of operative procedure on shoulder 850635493 Z98.383 [id number] PEDRO CHAVES II PT, DPT PHYSICAL THERAPY / HAND [facility]APY [facility] [address] [place] [address] 07/30/2019 08:43:36 08/12/2019 08:30:00 Biceps tendinitis 951922088 M75.21 Muscle weakness 34159726 M62.81 Muscular incoordination 98405664 R27.8 History of operative procedure on shoulder 590141872 Z98.490 [id number] PEDRO CHAVES II PT, DPT PHYSICAL THERAPY / HAND [facility]APY [facility] [place] [address] [address] 07/30/2019 08:44:27 08/12/2019 08:30:49 Abnormal gait 76488663 R26.9 Muscle weakness 01924380 M62.81 History of arthroscopy of knee joint 178545359 Z98.890 Muscular incoordination 06737365 R27.8 [id number] PEDRO CHAVES II, PT, DPT PHYSICAL THERAPY / [facility] [address] [place] [address] 08/01/2019 08:39:40 08/09/2019 09:11:04 Biceps tendinitis [id number] M75.21 Muscle weakness 40737355 M62.81 History of operative procedure on shoulder 089043102 Z98.890 Muscular incoordination 81426842 R27.8 [id number] PEDRO CHAVES II, PT, DPT PHYSICAL THERAPY / HAND THERAPY [facility] [address] [address] 08/05/2019 09:36:20 08/12/2019 08:07:57 Biceps tendinitis 972320082 M75.21 Muscle weakness 14192461 M62.81 Muscular incoordination 59867326 R27.8 History of operative procedure on shoulder 489428997 Z98.404 [id number] BETO VALENTE MD ORTHOPEDI CS [facility] [address] [address] 08/15/2019 09:31:43 08/15/2019 14:47:54 Osteoarthritis of right knee joint [id number] 37318 M17.11 [id number] BETO VALENTE MD [facility] [address] [address] 08/27/2019 10:16:36 08/27/2019 12:39:10 Pain of right shoulder joint [id number] M25.160 [id number] BETO VALENTE MD [facility] [address] [address] 09/23/2019 10:34:30 09/25/2019 12:32:00 Tear of lateral meniscus of knee [id number] S83.271A [id number] BETO VALENTE MD [facility] [address] [address] 10/08/2019 10:14:25 10/14/2019 19:41:27 Pain of right shoulder joint [id number] M25.770 [id number] BETO VALENTE MD [facility] [address] [address] 01/27/2020 11:40:47 01/27/2020 14:05:41 Osteoarthritis of knee 460920656 M17.11 [id number] BETO VALENTE MD [facility] [address] [place] [address] 07/13/2020 09:09:21 07/13/2020 11:40:02 Pain in right knee [id number] 29690 M25.343 [id number] BETO VALENTE MD [facility] [address] [place] [address] 08/28/2020 11:04:16 08/28/2020 11:54:22 Tendinitis of left patellar tendon [id number] 25100 M76.52 Pain in left knee 582057 6035 12308 M25.562 possible mm tear [id number] MYRON THORNTON MD [facility] [address] [place] [address] 10/13/2020 12:49:31 10/13/2020 13:48:58 Postoperative care [id number] Z48.89 Previously status post right trigger thumb release (03/20/17) Pain in right thumb 1076 852607 495660 M79.644 Outside x-rays of the right thumb reviewed with no evidence of underlying fracture/d islocation [id number] MYRON THORNTON MD [facility] [address] [place] [address] 11/12/2020 10:44:15 11/12/2020 13:27:11 Pain in right thumb 9491299700 611628 M79.644 Outside x-rays of the right thumb reviewed with no evidence of underlying fracture/d islocation Postoperative care 82189 9007 Z48.89 Previously status post right trigger thumb release (03/20/17) [id number] MYRON THORNTON MD [facility] [address] [place] [address] 12/22/2020 14:33:53 12/23/2020 13:36:28 Pain in right thumb 6827606733 033599 M79.644 Outside x-rays of the right thumb reviewed with no evidence of underlying fracture/d islocation Postoperative care 36847 9007 Z48.89 Previously status post right trigger thumb release (03/20/17) [id number] BETO VALENTE MD [facility] [address] [address] 05/18/2021 14:23:54 05/18/2021 15:57:45 Infection of foot 449701671 L08.9 Pain in left knee 802976 7294 60552 M25.562 possible mm tear [id number] BETO VALENTE MD [facility] [address] [address] 05/24/2021 14:39:33 05/24/2021 17:02:15 Pain in left knee 0336862856 88358 M25.562 possible mm tear [id number] BETO VALENTE MD SURGERY SCHEDULE [address] [place] [address] 08/27/2021 06:07:52 08/27/2021 06:09:09 [id number] TY VARGAS PA-C [facility] [address] [place] [address] 09/02/2021 08:48:30 09/02/2021 09:27:09 Postoperative care [id number] Z48.89 [id number] TY VARGAS PA-C [facility] [address] [place] [address] 09/28/2021 09:02:50 09/28/2021 10:04:41 Postoperative care [id number] Z48.89 Patient progressin g well postoperat ively. [...] she continues to have this aching pain. [id number] TY VARGAS PA-C [facility] [address] [place] [address] 10/26/2021 08:42:32 10/26/2021 09:16:09 Postoperative care 378555874 Z48.89 Patient progressin g well postoperat ively. Some residual aching in the medial aspect of the knee. Strength and range of motion appropriat e today.Plan :Continue PT with HEP. Continue to ice and elevate frequently . Over-the-c ounter anti-infla mmatories as needed. Hold on injection today. [id number] TY VARGAS PA-C [facility] [address] [address] 11/23/2021 12:57:16 11/23/2021 13:33:06 Postoperative care 639785245 Z48.89 Patient progressin g well postoperat ively. Some residual aching in the medial aspect of the knee. Strength and range of motion appropriat e today.Plan :Continue HEP. Ice and elevate as needed. 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 9448250 M65.331 Right long trigger finger (CSI: 02/25/2022) Previously status post right trigger thumb release (03/20/17) [id number] MYRON THORNTON MD [facility] [address] [address] 03/24/2022 10:44:49 03/24/2022 12:40:36 Acquired trigger finger 3230335 M65.331 Right long trigger finger (CSI: 02/25/2022) Previously status post right trigger thumb release (03/20/17) Postoperative care 36545 9007 Z48.89 Previously status post right trigger thumb release (03/20/17) [id number] MYRON THORNTON MD SURGERY SCHEDULE [address] [place] [address] 04/20/2022 06:03:00 04/20/2022 06:04:21 [id number] LAURIE GONZALEZ PA-C [facility] [address] [place] [address] 05/05/2022 08:06:56 05/05/2022 08:31:04 Postoperative care 920065018 Z48.89 s/p Right middle trigger finger release (DOS: 04/20/22) Previously status post right trigger thumb release (03/20/17) [id number] MYRON THORNTON MD [facility] [address] [place] [address] 06/02/2022 09:09:46 06/02/2022 10:10:14 Postoperative care 488818906 Z48.89 6 weeks s/p Right middle trigger finger release (DOS: 04/20/22) Previously status post right trigger thumb release (03/20/17) [id number] MYRON THORNTON MD [facility] [address] [place] [address] 07/14/2022 08:16:23 07/14/2022 08:40:50 Postoperative care 157943074 Z48.89 12 weeks s/p Right middle trigger finger release (DOS: 04/20/22) Previously status post right trigger thumb release (03/20/17) [id number] MYRON THORNTON MD [facility] [address] [place] [address] 08/16/2022 08:33:51 08/16/2022 09:39:47 Postoperative care 851256569 Z48.89 4 months s/p right middle trigger finger release (DOS: 04/20/22) Previously status post right trigger thumb release (03/20/17) Flexor ten osynovitis of finger 324608743 M65.849 Right long finger flexor tendinitis (CSI: 08/16/2022) [id number] MYRON THORNTON MD [facility] [address] [place] [address] 09/22/2022 15:26:31 09/22/2022 16:42:00 Postoperative care 854086544 Z48.89 5 months s/p right middle trigger finger release (DOS: 04/20/22) Previously status post right trigger thumb release (03/20/17) Flexor ten osynovitis of finger 549499642 M65.849 Right long finger flexor tendinitis (CSI: 08/16/2022) [id number] TY VARGAS PA-C [facility] [address] [place] [address] 12/27/2022 14:12:24 12/27/2022 15:23:59 Edema of lower extremity 108435708 R60.0 Patient's symptoms today consistent likely with [...] persistent swelling of the right lower leg. [id number] BETO VALENTE MD [facility] [address] [place] [address] 05/22/2023 15:53:59 05/22/2023 17:28:21 Bilateral osteoarthritis of knees 1338253428 50831 M17.0 [id number] EMMANUELLE Andrew MD [facility] [address] [place] [address] 11/21/2023 07:50:13 11/21/2023 08:43:17 Pain of left knee joint 8920855306 10218 M25.562 Osteoarthr itis of left knee joint 1291458169 93933 M17.12 Hide he does have advanced degenerati [...] Type 2 zulma betes mellitus without complication 525444168 E11.9 A1c 6.6 by patient report. Currently maintained on metformin, Ozempic, and Jardiance. We will recheck her A1c and fructosami ne prior to surgical scheduling . Coronary arteriosclerosis 66898793 I25.10 Recent history of PCI x 4 [...] scheduling . History of percutaneous coronary intervention 885288721 Z98.890 [id number] EMMANUELLE Andrew MD [facility] [address] [place] [address] 02/20/2024 07:55:37 02/20/2024 09:45:24 Pain of left knee joint 1042249718 54923 M25.562 Osteoarthr itis of left knee joint 5613993196 76737 M17.12 ASSESSMENT : DJD LEFT knee PLAN:The [...] potential cost sharing responsibi lities; only one on license of [facility] can furnish and bill for PCM services during a calendar month, and the patient can stop these services at any time. The patient understand s and has verbally consented to accept PCM services and has been provided a copy of a written explanatio n of this service today. 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 Currently maintained on metformin, Ozempic, and Jardiance. We will recheck her A1c and fructosami ne prior to surgical scheduling . Coronary arteriosclerosis 76750021 I25.10 Recent history of PCI x 4 [...] for cardiac events following elective TKA, including ME, arrhythmia s, and sudden cardiac . History of percutaneous coronary intervention 011209356 Z98.890 [id number] EMMANUELLE Andrew MD [facility] [address] [place] [address] 04/11/2024 13:40:11 04/12/2024 10:02:00 [id number] EMMANUELLE Andrew MD SURGERY SCHEDULE [address] [place] [address] 04/17/2024 14:53:45 04/24/2024 14:00:07 [id number] ANUJ KIRAN PA-C [facility] [address] [place] [address] 05/08/2024 10:28:14 05/08/2024 11:14:52 History of total knee arthroplasty 7960037050 105 Z96.652 Patient is 3 weeks status post left TKA and doing very well at this time. No complaints or concerns today. She has transition to outpatient physical therapy with [facility] in [place] . Highly encouraged to continue to focus [...] post op follow up with radiograph s. [id number] ANUJ KIRAN PA-C [facility] [address] [place] [address] 05/29/2024 09:12:59 05/29/2024 10:24:40 History of total knee arthroplasty 2973316372 105 Z96.652 Patient now 6 weeks status post left TKA. She continues to do very well with no complaints or concerns. Range of motion goals have been met. Okay to submerge incision. Resume normal activities as tolerated. Patient works at [employer] and has plans to return to work in [employer] 4 weeks which I do think would [...] on. [facility] determine to check on her progress and see how she is feeling about her return to work status. Long-leg radiograph s will be obtained. [id number] ANUJ KIRAN PA-C [facility] [address] [place] [address] 06/26/2024 08:29:00 06/26/2024 09:18:34 History of total knee arthroplasty 9013081212 105 Z96.652 Patient now 9 weeks status post left TKA. Over the weekend she had increased her activity with some home chores had a slight increase in some discomfort but otherwise still doing well at this time. No restrictio ns, she may return to work in 3 weeks at this time. She works at [employer]. She is planning tentativel y to schedule [...] 1 year or sooner if symptoms warrant. [id number] ANUJ KIRAN PA-C [facility] [address] [place] [address] 07/22/2024 07:53:25 07/22/2024 08:21:23 History of total knee arthroplasty 9267186766 105 Z96.652 Zehra he is now 13 [...] ID Gregorio Member ID Guarantor Name 02/25/2022 [facility] Brennon Zehra S Sanor 02/21/2022 [facility] Brennon Zehra S Sanor 07/19/2024 1 [employer] [id number] A Zehra S Sanor [id number] Zehra S Sanor 03/15/2019 [facility] [employer] Zehra S Sanor 05/22/2023 [facility] Brennon Zehra S Sanor 07/05/2024 1 INGENIOUSMED (MOVED TO HOLD) Zehra S Sanor Zehra S Sanor Notes Date Note Type Note Provider Name and Address Organization Details Recorded Time 05/08/2024 text/html 05/08/24Patient is 3 weeks s/p L TKA. Surgery date 04/17/24Pain is improvingCurrently taking no doses per day of narcotic.Ambulating with no assistive devicePT: outpatient Denies fevers, chills, or wound drainage.They do not request a refill of pain medicine. ANUJ KIRAN PA-C [address] [place], [address], [facility] 05/08/2024 11:15:32 05/29/2024 text/html 05/27/24Patient is 6 weeks s/p L TKA. [...] of pain medicine. ANUJ KIRAN PA-C [address] [place], [address], [facility] 05/29/2024 10:25:59 06/26/2024 text/html 06/26/24Patient is 9 weeks s/p L TKA. [...] of pain medicine. ANUJ KIRAN PA-C [address] [place], [address], [facility] 06/26/2024 09:19:24 07/22/2024 text/html 07/22/24Patient is 13 [...] of pain medicine. ANUJ KIRAN PA-C [address] [place], [address], [facility] 07/22/2024 09:51:17 OBGyn Episode No OBEpisode recorded.
--- OUTSIDE RECORDS SUMMARY | 2025-09-09 06:23 | XMS_ITS | Clinical Summary ---
Author Organization [employer] ([place], [place], [place], [place]) Address [address] [place] [address] Care Team Providers Care Access Assoc Name Role Phone Amalia Walter Primary Care Provider [phone] Allergies Active Allergy Reactions Criticality Noted Date [...] Date Tien rded Speak language other than Panamanian at home Not on file 03/12/2024 Want [...] Colorectal Cancer Screening 1964 Diabetic Kidney Health Evalu ation (KED) 1964 FOBT/FIT 1964 Fit-DNA (Cologuard) 1964 Sigmoidoscopy 1964 Depression Screening (12+) 1976 HIV Screening 1979 Hepatitis C Screening 1982 DTAP/TDAP/TD VACCINES (1 - Tdap) 1983 Pneumococcal 50+ years (1 of 2 - PCV) 1983 Pap Smear 1985 Breast Cancer Screening 2004 Lipid Panel 2009 Hemoglobin A1C 10/10/2024 04/09/2024 Diabetic Eye Exam 02/04/2025 02/05/2024, , 11/16/2021, Additional history exists Tobacco Cessation Counseling and Screening (12+) 04/17/2025 04/17/2024 COVID-19 VACCINE (1 - 2023-2 5 season) 2025 Influenza Vaccine (#1) 2025 11/01/2013 Shingles Vaccine (Zoster) Completed 01/12/2021, Medical Devices Implanted Type Area Hand Mixer Device Identifier Shelf Expiration Date Model / Serial / Lot Psn Keel Spkd 0 Sz F Oss L [id number]- 01 - [id number] Implanted:Qt y: 1 on 04/17/2024 at [facility] [employer]STRU[employer] Left: Knee RUPERT:RUPERT [id number] 07/07/2033 42-5350-0 75-01 / / [id number] Psn Fem Cr Pps Cocr Nrw Sz9 L 25-4888-344- 01 - [id number] Implanted:Qt y: 1 on 04/17/2024 at [facility] [employer] Left: Knee RUPERT:RUPERT [id number] 02/14/2033 42-5080-0 66-01 / / [id number] Psn Art Surf 10mm 8-11/E-F Lt 21-3861-706- 10 - [id number] Implanted:Qt y: 1 on 04/17/2024 at [facility] [employer] Left: Knee RUPERT:RUPERT [id number] 12/20/2028 42-5121-0 08- / [id number] Procedures Procedure Name Priority Date/Time Associated Diagnosis Comments HEMOGLOBIN A1C Routine 04/09/2024 2:56 PM EDT Preop testing from Last 3 Months or Most Recently Relevant to Health Maintenance Results * Hemoglobin A1c (04/09/2024 2:56 PM EDT) Hemoglobin A1C 6.5 % 04/09/2024 6:57 PM EDT [facility] Comment: Hemoglobin A1C levels are related to mean glucose during the preceding 2-3 months. Less than 7% demonstrates glycemic control in diabetic patients. Hemoglobin AlC % Suggested Diagnosis > or = 6.5 Diabetic 5.7 - 6.4 Prediabetic <5.7 Non-diabetic eAVG Glucose 139.85 mg/dL 04/09/2024 6:57 PM EDT [facility] Blood Venipuncture / Unknown 04/09/2024 2:56 PM EDT 04/09/2024 4:30 PM EDT Nicholas Castro MD LAB BLOOD ORDERABLES Final Result [facility] [address] [phone] from Last 3 Months or Most Recently Relevant to Health Maintenance Insurance BLUE CROSS/BLUE SHIELD Advance Directives For more information, please contact: [phone] * Full Code (Latest Code Status on File) Date Activated Date Inactivated Comments 04/17/2024 1:15 PM 04/18/2024 2:19 PM * Full Code Date Activated Date Inactivated Comments 04/17/2024 7:55 AM 04/17/2024 1:15 PM Care Teams Access Assoc Relationship Specialty Start Date End Date Amalia [place] [address] [place] [address] PCP - General 04/09/24
--- OUTSIDE RECORDS SUMMARY | 2025-09-09 06:23 | XMS_ITS | Referral Summary ---
Author Organization [employer] ([place], [place], [place], [place]) Address [address] [place] [address] Care Team Providers Care Lead Php Developer Name Role Phone Amalia Walter Primary Care Provider [phone] Allergies Active Allergy Reactions Criticality Noted Date [...] Date Tien rded Speak language other than Nepalese at home Not on file 03/12/2024 Want [...] on file Medical Devices Implanted Type Area Academic Intern Device Identifier Shelf Expiration Date Model / Serial / Lot Psn Lizzy Spkd 0 Sz F Oss L [id number] 01 - [id number] Implanted:Qt y: 1 on 04/17/2024 at [facility] T[employer]STRU[employer] Left: Knee RUPERT:RUPERT [id number] 07/07/2033 42-5350-0 75-01 / / [id number] Psn Fem Cr Pps Cocr Nrw Sz9 L 64-5717-888- 01 - [id number] Implanted:Qt y: 1 on 04/17/2024 at [facility] [employer] Left: Knee RUPERT:RUPERT [place] [id number] 02/14/2033 42-5080-0 66- [id number] Psn Art Surf 10mm 8-/E-F Lt 49-0687-922- 10 - [id number] Implanted:Qt y: 1 on 04/17/2024 at [facility] T[employer] JO[employer]STRU[employer] Left: Knee RUPERT:RUPERT [place] [id number] 12/20/2028 42-5121-0 06-22 [id number] Procedures Procedure Name Priority Date/Time Associated Diagnosis Comments HEMOGLOBIN A1C Routine 04/09/2024 2:56 PM EDT Preop testing from Last 3 Months or Most Recently Relevant to Health Maintenance Results * Hemoglobin A1c (04/09/2024 2:56 PM EDT) Hemoglobin A1C 6.5 % 04/09/2024 6:57 PM EDT [facility] Comment: Hemoglobin A1C levels are related to mean glucose during the preceding 2-3 months. Less than 7% demonstrates glycemic control in diabetic patients. Hemoglobin AlC % Suggested Diagnosis > or = 6.5 Diabetic 5.7 - 6.4 Prediabetic <5.7 Non-diabetic eAVG Glucose 139.85 mg/dL 04/09/2024 6:57 PM EDT [facility] Blood Venipuncture / Unknown 04/09/2024 2:56 PM EDT 04/09/2024 4:30 PM EDT Nicholas Castro MD LAB BLOOD ORDERABLES Final Result [facility] [address] [phone] from Last 3 Months or Most Recently Relevant to Health Maintenance Insurance BLUE CROSS/BLUE SHIELD Advance Directives For more information, please contact: [phone] * Full Code (Latest Code Status on File) Date Activated Date Inactivated Comments 04/17/2024 1:15 PM 04/18/2024 2:19 PM * Full Code Date Activated Date Inactivated Comments 04/17/2024 7:55 AM 04/17/2024 1:15 PM Care Teams Lead Php Developer Relationship Specialty Start Date End Date Amalia Walter [address] [place] [address] PCP - General 04/09/24
--- NOTE | 2025-09-09 06:30 | NM_ITS ---
APPROVED REPORT Exam: Nuclear Stress Test Indication: SOB, CAD, HTN, DM, Family history Patient Location: Outpatient Stress Tech: Laura Duvall NM Tech:Maryfallon Pinto, ARRT, RT (R)(N) Ht: 5 ft 9 in Wt: 180 lbs Bra Size: 42C HR: 71 bpm BP: 134/74 mmHg BSA: 1.98 m2 TID: 1.11 BMI: 26.5 History: SOB, CAD, HTN, DM, Family history Procedure: Patient received 0.4 mg of intravenous Lexiscan, resting heart rate 71 bpm, resting blood pressure 134/74 mmHg, with Lexiscan maximum heart rate achieved was 97 bpm which is % of the maximum predicted heart rate and blood pressure was 138/74 mmHg. With Lexiscan, patient denied any complaint of chest pain. Cardiac Stress and Resting SPECT Images: Cardiac Stress and Resting SPECT images were obtained using technetium 99m Myoview 31.6 mCi stress and 10.57 mCi at rest. Resting and stress imaging in supine and prone positions demonstrate no evidence of fixed or reversible defect. Gated imaging demonstrates normal global LV systolic function. LVEF is calculated at 58%. Conclusion: No evidence of fixed or reversible defect. Gated imaging demonstrates normal global LV systolic function. LVEF is calculated at 58%. Electronically signed by : Sherrie Pedroza MD 09/10/2025 13:41:03
[2025-09-09 08:15] VITALS: BP 134/74; PULSE 68; RESP 14
[2025-09-09] MEDS: SODIUM CHLORIDE 0.9% 10ML SYR (RAD ONLY) 10 ML IV ×2 (08:34)
[2025-09-09] MEDS: ISOTOPE MYOVIEW (PER STUDY) 1 DOSE IV (08:34)
--- NOTE | 2025-09-09 09:00 | CA_ITS ---
APPROVED REPORT EXAM: Comprehensive 2D, Doppler, and color-flow Echocardiogram Risk Assessor: Faith Veras, RT(R) Ht: 5 ft 9 in Wt: 182lbs BSA: 1.99 BP: 96/49 mmHg Indications: CAD, shortness of breath 2D Dimensions Left Atrium 3.35 cm F: 2.7 - 3.8 LA Volume 28.70 mL LVOT 1.90 cm (M/F) 1.5-2.5 LA Volume Index 14.42 mL/m2 (M/F) 16-34 EF AP4 56.20 % GL Strain -15.9 % M-Mode Dimensions RVDd 2.33 cm (0.9-2.6) LVDd 4.57 cm (3.5-5.7) Ao Diam 2.46 cm (2.0-3.7) LVDs 3.47 cm (3.5-5.7) IVSd 0.76 cm (0.6-1.1) PWd 0.76 cm (0.6-1.1) EF (Teich) 48.10% FS 24.10% EDV (Teich) 95.90 mL TAPSE 2.02 (<1.7) ESV (Teich) 49.80 mL LV Diastology E Decel Time 175 (160-240 msec) E/A Ratio 0.9 MED E' 8.2 (>= 7 cm/sec) E'/MED E' Ratio 11.68 (<= 14) LAT E' 8.5 (>= 10 cm/sec) E/LAT E' Ratio 11.27 (<= 14) Mitral Valve MV E Max Nicolás. 96.0 (40-130 cm/s) MV A Velocity 104.0 (40-130 cm/s) E/A Ratio 0.92 MV Decel. Time 175 (160-240 ms) Left Ventricle The left ventricle is normal size. Left ventricular systolic function is normal. The left ventricular ejection fraction is within the normal range. There is increased left ventricular wall thickness. There is normal LV segmental wall motion. Transmitral Doppler flow pattern suggests impaired LV relaxation. LVEF is 55% Right Ventricle The right ventricle is normal size. The right ventricular systolic function is normal. Atria The left atrium size is normal. The right atrium size is normal. There is no color Doppler evidence of interatrial shunt. Aortic Valve The aortic valve is mildly thickened. There is no hemodynamically significant aortic valvular stenosis. No aortic regurgitation is present. Mitral Valve The mitral valve is normal in structure. No evidence of mitral valve stenosis. Mild mitral regurgitation is present. Tricuspid Valve The tricuspid valve leaflets are thin and pliable. Trace tricuspid regurgitation. There is insufficient TR jet to estimate RVSP. Pulmonic Valve The pulmonary valve is grossly normal in structure. Trace pulmonic valve regurgitation is present. Great Vessels The aortic root is normal in size. IVC is normal in size and collapses >50% with inspiration. Pericardium There is no pericardial effusion. Other Information Study Quality: Technically Difficult Conclusion Normal biventricular systolic function. Mild MR. Electronically signed by : Sherrie Pedroza MD 09/14/2025 01:10:51
[2025-09-09 10:03] LABS: Hematocrit 36.0 % (37.0-47.0); Hemoglobin 11.3 g/dL (12.2-16.2); Immature Granulocytes % 0.4 %; Mean Corpuscular HGB Conc 31.4 g/dL (31.8-35.4); Mean Corpuscular Hemoglobin 28.2 pg (27.0-31.2); Mean Corpuscular Volume 89.8 fl (81-99); Nucleated Red Blood Cells % 0 %; Platelet Count 199 K/mm3 (142-424); Red Blood Count 4.01 M/mm3 (4.20-5.40); Red Cell Distribution Width-SD 47.4 fL; White Blood Count 5.4 K/mm3 (4.8-10.8)
[2025-09-09 10:35] LABS: Alanine Aminotransferase 44 U/L (12-78); Albumin Level 4.4 g/dl (3.5-5.0); Albumin/Globulin Ratio 2.4 (1.1-1.8); Alkaline Phosphatase 83 U/L (38-126); Anion Gap 12.8 mEq/L (5-15); Aspartate Amino Transferase 38 U/L (14-36); Bilirubin,Total 0.5 mg/dl (0.2-1.3); Blood Urea Nitrogen 32 mg/dl (7-17); Calcium 9.7 mg/dl (8.4-10.2); Carbon Dioxide 24 mmol/L (22.0-30.0); Chloride 103 mmol/L (98-107); Creatinine,Serum 0.90 mg/dl (0.52-1.04); Estimated Glomerular Filt Rate 64 ml/min (>60); GFR (African American) 77 ML/MIN (>60); Globulin 1.8 g/dL (1.3-3.2); Glucose 106 mg/dl (74-100); Iron 99 ug/dL (37-170); Potassium 4.8 mmoL/L (3.5-5.1); Sodium 135 mmol/L (136-145); Total Protein,Serum 6.2 g/dl (6.3-8.2)
[2025-09-09 10:46] LABS: Total Iron Binding Capacity 450 ug/dL (265-497)
[2025-09-09 11:12] LABS: Ferritin 10.6 ng/ml (11.1-264)
[2025-09-09 11:27] LABS: Vitamin B12 918 pg/mL (239-931)
== END 2025-09-09 23:59 | disposition home or self-care (01) ==
PROVIDERS: PCP Nurse Practitioner Family; Visit Provider Internal Medicine
DX: I34.0 Nonrheumatic mitral (valve) insufficiency (principal); I25.10 Atherosclerotic heart disease of native coronary artery without angina pectoris; I10 Essential (primary) hypertension; E11.9 Type 2 diabetes mellitus without complications; D64.9 Anemia, unspecified; R79.89 Other specified abnormal findings of blood chemistry
CPT/HCPCS: 36415; 78452; 80053; 82607; 82728; 83540; 83550; 85025; 93017; 93018; 93306; A9502; J2785

== ENCOUNTER 2025-10-22 15:01 | Outpatient (CLI) | payer BC, SELFPAY ==
[2025-10-22 15:18] LABS: Hematocrit 35.1 % (37.0-47.0); Hemoglobin 11.0 g/dL (12.2-16.2); Immature Granulocytes % 0.2 %; Mean Corpuscular HGB Conc 31.3 g/dL (31.8-35.4); Mean Corpuscular Hemoglobin 28.7 pg (27.0-31.2); Mean Corpuscular Volume 91.6 fl (81-99); Nucleated Red Blood Cells % 0 %; Platelet Count 174 K/mm3 (142-424); Red Blood Count 3.83 M/mm3 (4.20-5.40); Red Cell Distribution Width-SD 55.2 fL; White Blood Count 6.0 K/mm3 (4.8-10.8)
== END 2025-10-22 23:59 | disposition home or self-care (01) ==
LOC: LAB 15:02
PROVIDERS: PCP Nurse Practitioner Family; Visit Provider Nurse Practitioner Family
DX: R79.89 Other specified abnormal findings of blood chemistry (principal)
CPT/HCPCS: 36415; 85025

== ENCOUNTER 2025-11-04 13:38 | Outpatient (CLI) | payer BC, SELFPAY ==
--- OUTSIDE RECORDS SUMMARY | 2025-11-04 13:40 | XMS_ITS | Encounter Summary ---
Author Organization [employer] ([place], [place], [place], [place], [place]) Address [address] [place] [address] Care Team Providers Care Racing Mechanic Name Role Phone Amalia Walter Primary Care Provider [phone] Encounter Details Date Type Department Care Team (Late st Contact Info) Description 01/28/2021 Transcribed Document [facility] Family Medicine [address] [place] [address] ProviderEmely MD [address] [place] [address] Social History Tobacco Use Types [...] 12:49:28) Electronically signed by Jeferson Fernandez Conversion Finisher [employer] Dies Cerner at 02/28/2023 7:32 PM CDT documented in this encounter Plan of Treatment Not on file documented as of this encounter Visit Diagnoses Not on filedocumented in this encounter Care Teams Racing Mechanic Relationship Specialty Start Date End Date Amalia Walter [address] [place] [address] PCP - General 04/09/24 documented as of this encounter
--- OUTSIDE RECORDS SUMMARY | 2025-11-04 13:40 | XMS_ITS | Encounter Summary ---
Author Organization [employer] ([place], [place], [place], [place], [place]) Address [address] [place] [address] Care Team Providers Care Boat Outboard Engine Mechanic Name Role Phone Amalia Walter Primary Care Provider [phone] Encounter Details Date Type Department Care Team (Late st Contact Info) Description 01/28/2021 Transcribed Document [facility] [place] Family Medicine [address] [place] [address] ProviderEmely MD [address] [place] [address] Social History Tobacco Use Types [...] ProviderMD - 01/28/2021 12:31 PM CDT [facility] Main OR Preop Summary Primary Physician: NORMA FOSTER DPM-POD Finalized Date/Time: 01/28/21 13:40:47 Pt. Name: ZEHRA SHEPHERD /Sex: 1965 Female Med Rec #: [id number] Physician: NORMA FOSTER DPM-POD Financial #: [id number] Pt. Type: O Room/Bed: /25 Admit/Disch: 01/28/21 08:17:00 - Institution: [facility] PreOp Case Times Entry 1 In Preop 01/28/21 08:46:00 Ready for Holding n/a Room Patient Ready for 01/28/21 10:15:00 Surgery Patient Out of Preop 01/28/21 12:10:00 Patient Out of n/a Holding Room Last Modified By: DEB DANIELS RN 01/28/21 13:40:41 [facility] PreOp Case Times Audit 01/28/21 13:40:41 Bulk Sealer Operator: DOUGJulio Cesar Modifier: MCGRANM <+> 1 Patient Out of Preop Finalized By: DEB DANIELS RN Document Signatures Signed By: DEB DANIELS RN 01/28/21 13:40 Electronically signed by Rebecca [facility] Conversion Plaster Lather Cerner at 02/28/2023 7:31 PM CDT documented in this encounter Plan of Treatment Not on file documented as of this encounter Visit Diagnoses Not on filedocumented in this encounter Care Teams Boat Outboard Engine Mechanic Relationship Specialty Start Date End Date Amalia Walter [address] [place] [address] PCP - General 04/09/24 documented as of this encounter
--- OUTSIDE RECORDS SUMMARY | 2025-11-04 13:40 | XMS_ITS | Encounter Summary ---
Author Organization [email or web address] ([place], [place], [place], [place], [place]) Address [address] [place] [address] Care Team Providers Care Stitchdowns Toe Former Name Role Phone Amalia Walter Primary Care Provider [phone] Encounter Details Date Type Department Care Team (Late st Contact Info) Description 01/28/2021 Transcribed Document [facility] [place] [address] [place] [address] ProviderEmely MD [address] [place], [place] [id number] Social History Tobacco Use Types Packs/Day Years [...] : 1965 SURGEON: Ramon Rivero DPM LOCATION: [facility]. GOVERNMENT PROGRAM MANAGER: None. PREOPERATIVE DIAGNOSES: 1. Plantar plate [...] in the next 24 to 72 hours. /[id number] PIERO Ugarte/JAYLEEN / BH / MODL /[id number] documented in this encounter Plan of Treatment Not on file documented as of this encounter Visit Diagnoses Not on filedocumented in this encounter Care Teams Stitchdowns Toe Former Relationship Specialty Start Date End Date Saba Amalia [address] [place] [address] PCP - General 04/09/24 documented as of this encounter
--- OUTSIDE RECORDS SUMMARY | 2025-11-04 13:40 | XMS_ITS | Encounter Summary ---
Author Organization [employer] ([place], [place], [place], [place], [place]) Address [address] [place] [address] Care Team Providers Care Qc Lab Technician Name Role Phone Amalia Walter Primary Care Provider [phone] Encounter Details Date Type Department Care Team (Late st Contact Info) Description 01/28/2021 Transcribed Document [facility] [place] [address] [place] [address] ProviderEmely MD [address] [place] [address] Social History Tobacco Use Types [...] Source : Measured Height Entry Format : [place] Height, Feet : 5 ft(Converted to: 152 cm, 60 Inch) Height, Inches : 9 Inch(Converted to: 0 ft 9 Inch, 22.86 cm) Clinical Height : 175.26 cm Weight Source : Standing scale Weight Entry Format : [place] Clinical [facility] Weight : 96.36 kg Weight, Pounds : 212 lb Body Surface Area (BSA) : 2.12 m2 Body Mass Index : 31.4 kg/m2 (HI) [place] Body Weight : 66 kg DEB DANIELS RN - 01/28/2021 9:50 EDT Health Histories Smoking Status : Former smoker, quit more than 30 days ago Smokeless Tobacco Status : Never Implant/Device Type, Management Accountant and Model : dental implants DEB DANIELS [...] DEB DANIELS RN - 01/28/2021 9:50 EDT [place] Suicide Severity Rating Scale (C-SSRS) CSSRS Past [...] Obtained From : Patient Primary Language : Nigerien Communication Barrier : None Sheep Farmer Needed : DEB Aguirre RN - 01/28/2021 [...] on filedocumented in this encounter Care Teams Qc Lab Technician Relationship Specialty Start Date End Date Amalia Walter [address] [place] [address] PCP - General 04/09/24 documented as of this encounter
--- OUTSIDE RECORDS SUMMARY | 2025-11-04 13:40 | XMS_ITS | Encounter Summary ---
Author Organization [employer] ([place], [place], [place], [place], [place]) Address [address] [place] [address] Care Team Providers Care Machine Printer Hose Name Role Phone Amalia Walter Primary Care Provider [phone] Encounter Details Date Type Department Care Team (Late st Contact Info) Description 01/28/2021 Transcribed Document [facility] [place] [address] [place] [address] ProviderEmely MD [address] [place] [address] Social History Tobacco Use Types [...] that pinch your toes. ??? 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 ??? Have a second toe that is [...] Follow these instructions at home: ??? Take qcmu-dgt-rrkqzcg and prescription medicines only as told by [...] provider. Document Revised: 10/12/2018 Document Reviewed: 02/22/2017 [employer] Patient Education ? 2020 [employer] General Anesthesia, Adult, Care After This [...] activities are safe for you. ??? Take spcs-phr-dwrzhtv and prescription medicines only as told by [...] provider. Document Revised: 11/02/2018 Document Reviewed: 06/15/2018 [employer] Patient Education ? 2020 [employer]. Electronically signed by Jeferson Fernandez Conversion Humidifier Maintenance Worker Cerner at 02/28/2023 7:32 PM CDT documented in this encounter Plan of Treatment Not on file documented as of this encounter Visit Diagnoses Not on filedocumented in this encounter Care Teams Machine Printer Hose Relationship Specialty Start Date End Date Amalia Walter [address] [place] [address] PCP - General 04/09/24 documented as of this encounter
--- OUTSIDE RECORDS SUMMARY | 2025-11-04 13:40 | XMS_ITS | Encounter Summary ---
Author Organization [employer] ([place], [place], [place], [place], [place]) Address [address] [place] [address] Care Team Providers Care Table Operator Name Role Phone Amalia Walter Primary Care Provider [phone] Encounter Details Date Type Department Care Team (Late st Contact Info) Description 01/28/2021 Transcribed Document [facility] [place] [address] [place] [address] ProviderEmely MD [address] [place] [address] Social History Tobacco Use Types [...] Emely ProviderMD - 01/28/2021 12:31 PM CDT [facility] Main OR IntraOp Summary Primary Physician: NORMA FOSTER DPM-POD Finalized Date/Time: 02/01/21 11:07:37 Pt. Name: ZEHRA ESPINO /Sex: 1965 Female Med Rec #: [id number] Physician: NORMA FOSTER DPM-POD Financial #: [id number] Pt. Type: O Room/Bed: /25 Admit/Disch: 01/28/21 08:17:00 - 01/28/21 14:43:00 Institution: [facility] IntraOp Case Attendance Entry 1 Entry 2 Entry 3 Case Attendee NORMA FOSTER DPM-POD Lisbeth Haas, JASMINE FRANKLIN RN Role Performed Surgeon/Proceduralist, Deburring And Tooling Machine Operator, First Deburring And Tooling Machine Operator, Second First Time In 01/28/21 [...] Attendee IN FOR SET-UP [facility] [address] Superficial Wound Closed By: Last Modified By: Lisbeth Haas, Lisbeth Lynch RN Proffitt, Debbie, RN 01/28/21 13:18:17 01/28/21 13:18:17 01/28/21 13:18:17 Entry 7 Entry 8 Entry 9 Case Attendee OTHER, ATTENDEE #3 TAE TYLER, ANSHUL-ANS YUSRA DOSHI MD-ANS Role Performed Vendor LAMBSKIN TRIMMER/Nurse Insurance Sales Agent Anesthesiologist of Record Time In 01/28/21 12:13:00 01/28/21 12:13:00 01/28/21 12:13:00 Time Out 01/28/21 13:01:00 01/28/21 13:18:00 01/28/21 13:18:00 Procedure Hammer Toe Hammer Toe Hammer Toe Repair(Right), Neuroma Repair(Right), Neuroma Repair(Right), Neuroma Excision Soft Tissue Excision Soft Tissue Excision Soft Tissue Other Attendee [facility] Superficial Wound Closed By: Last Modified By: Lisbeth Haas, RN Lisbeth Haas, RN Lisbeth Haas, IVAN 01/28/21 13:18:17 01/28/21 13:18:17 01/28/21 13:18:17 [facility] IntraOp Case Attendance Audit 01/28/21 13:18:30 Piecer: PROFITDE Modifier: PROFITDE <+> 1 Procedure 01/28/21 13:18:17 Piecer: PROFITDE Modifier: PROFITDE <+> 1 Time Out [...] Repair(Right), Neuroma Excision Soft Tissue 01/28/21 13:02:00 Piecer: PROFITDE Modifier: PROFITDE 7 <+> Time Out 7 <*> Procedure Hammer Toe Repair(Right), Neuroma Excision Soft Tissue 01/28/21 12:40:44 Piecer: PROFITDE Modifier: PROFITDE <+> 8 Case Attendee <+> 8 Role Performed <+> 8 Time In <+> 8 Procedure <+> 9 Case Attendee <+> 9 Role Performed <+> 9 Time In <+> 9 Procedure [facility] IntraOp Case Times Entry 1 Patient In Room Time 01/28/21 12:13:00 Out Room Time 01/28/21 13:18:00 Anesthesia Start Time 01/28/21 12:13:00 Stop Time 01/28/21 13:18:00 Anesthesia Ready 01/28/21 12:13:00 Surgery / Procedure Times Start Time 01/28/21 12:31:00 Stop Time 01/28/21 13:14:00 Last Modified By: Lisbeth Haas RN 01/28/21 13:18:07 [facility] IntraOp Case Times Audit 01/28/21 13:18:07 Piecer: PROFITDE Modifier: PROFITDE <+> 1 Out Room Time <+> 1 Stop Time <+> 1 Stop Time [facility] IntraOp Cautery Entry 1 ESU Identification Cautery Type Monopolar ESU ID Number [id number] ID Type Hospital Number Cautery Settings Cut Setting 30 Coag Setting 30 ESU Grounding Pad Ground Pad Type Adult Grounding Pad Site Right thigh Grounding Pad Lisbeth Haas RN Applied By Grounding Pad Site Warm, dry and intact Skin Condition Before Cautery Grounding Pad Site Unchanged Skin Condition After Cautery Last Modified By: Lisbeth Haas RN 01/28/21 12:43:00 [facility] IntraOp Communication Entry 1 Entry 2 Communication To Family/Significant other Family/Significant other Comment INFORMED OF START CLOSING Communication By JASMINE KEENE, JASMINE FRANKLIN, IVAN Date and Time 01/28/21 12:35:00 01/28/21 13:00:00 Last Modified By: Lisbeth Haas RN Proffitt, Debbie, RN 01/28/21 12:38:25 01/28/21 13:00:18 [facility] IntraOp Communication Audit 01/28/21 13:00:18 Piecer: PROFITDE Modifier: PROFITDE <+> 2 Communication By <+> 2 Date and Time <+> 2 Communication To <+> 2 Comment [facility] IntraOp Counts Verification Entry 1 Procedure Hammer Toe Repair(Right), Neuroma Excision Soft Tissue Count Info Count Type Sponge, Sharps, Miscellaneous Counts Verification Baseline/pre-procedure Sequence Count Results Not Applicable Counts Performed By Count Performed By OTHER, ATTENDEE #1 (Scrub) Count Performed By Joan De León RN (RN) Last Modified By: Lisbeth Haas RN 01/28/21 12:38:05 [facility] IntraOp Counts Final Entry 1 Entry [...] Proffitt, Debbie, RN 01/28/21 12:41:55 01/28/21 13:00:02 [facility] IntraOp Counts Final Audit 01/28/21 13:00:02 Piecer: PROFITDE Modifier: PROFITDE <+> 2 Procedure <+> 2 Count Type <+> 2 Count Results <+> 2 Count Performed By (Scrub) <+> 2 Count Performed By (RN) <+> 2 Counts Verification Sequence [facility] IntraOp Cultures and Spec Summary Entry 1 Cultrures and Specimens Specimen Ordered: Yes Test(s) Routine/Path-Lab Requested/Final Disposition Last Modified By: Lisbeth Haas RN 01/28/21 12:42:03 [facility] IntraOp Departure from OR Entry 1 Integumentary Assessment Integumentary WDL with patient Assessment WDL specific variances Patient's Normal OPSITE Integumentary Variance(s) Transfer/Handoff Transfer to PACU Phase II Handoff Method Phone call Handoff Reported to VINOD LANDIN RN Post-op Transport Stretcher/Gurney Via Patient Transport JASMINE KEENE, IVAN Accompanied by Last Modified By: Lisbeth Haas RN 01/28/21 13:12:31 [facility] IntraOp Departure from OR Audit 01/28/21 13:12:31 Piecer: PROFITDE Modifier: PROFITDE <+> 1 Handoff Reported to [facility] IntraOp Dressing and Packing Entry 1 Type Dressing Location OPSITE Wound Dressing Item 4x4's, Ronny, Kerlix/Regla, Adaptic Applied By NORMA FOSTER DPM-POD Other Comments BETADINE SOLUTION Last Modified By: Lisbeth Haas RN 01/28/21 13:09:21 [facility] IntraOp Dressing and Packing Audit 01/28/21 13:09:21 Piecer: PROFITDE Modifier: PROFITDE 1 <*> Wound Dressing Item 4x4's, Ronny, Kerlix/Regla, Adaptic, Steristrip 01/28/21 12:52:36 Piecer: PROFITDE Modifier: PROFITDE <+> 1 Location [facility] IntraOp Fire Risk Assessment Entry 1 [...] Modified By: Lisbeth Haas RN 01/28/21 12:44:00 [facility] IntraOp General Case Road Engineer Freight 1 Case Information OR OR 04 [facility] Case Level 1 Room Verified Yes Wound Class I - Clean Specialty SN Podiatry Anesthesia Type MAC ASA Class 2 Diagnosis Preop Diagnosis [place] RIGHT FOOT, PLANTAR PLATE TEAR AND [place]'S NEUROMA RIGHT FOOT Postop Same As Preop No Postop Diagnosis SEE SURGEON'S POSTOP NOTES Last Modified By: Lisbeth Haas RN 01/28/21 12:47:21 [facility] IntraOp General Case Data Audit 01/28/21 12:47:21 Piecer: PROFITDE Modifier: PROFITDE 1 <*> OR OR 06 [facility] 1 <+> ASA Class 1 <+> Anesthesia Type 1 <+> Postop Same As Preop 1 <+> Preop Diagnosis 1 <+> Postop Diagnosis 1 <+> Room Verified [facility] IntraOp Implant Log Entry 1 Type Implant (Synthetic) Implant Log Implant Type Hardware Implant CORTEZ HELMS [id number] Identification Description Implant Quantity 1 Implant Site OPSITE Implant Schmitz Med [employer]p:Schmitz Identification Med Tech Technology Education Teacher Name: Implant [id number] Identification Catalog Number Implant Has an No Expiration Date Tissue Implant Last Modified By: Lisbeth Haas RN 01/28/21 13:10:36 [facility] IntraOp Implant Log Audit 01/28/21 13:10:36 Piecer: MANJIT Modifier: PROFITDE 1 <*> Implant Identification Description CORTEZ HELMS [id number] <+> Implant Has an Expiration Date [facility] IntraOp Intraoperative Assessment Entry 1 Handoff [...] Modified By: Lisbeth Haas RN 01/28/21 12:44:56 [facility] IntraOp Intraoperative Equipment Entry 1 Equipment Intraop Monitoring Electrocardiogram Five lead placement (ECG) Electrode Placement Blood Pressure Non-Invasive BP Device Source Blood Pressure Arm, right upper Location Pulse Oximeter Hand, left Probe Site Antiembolic Devices Scopes Photo/Video Documentation Last Modified By: Lisbeth Haas RN 01/28/21 12:47:46 [facility] IntraOp Medication Admin Entry 1 Medication/Irrigant MARTI IRR NACL 0.9PCT 2000ML [facility]-[id number] Route of IRRIGATION Administration Dose Dose 100 Unit of Measure ml Administered By NORMA FOSTER DPM-POD Procedure Irrigation Last Modified By: Lisbeth Haas RN 01/28/21 12:56:29 [facility] IntraOp Patient Positioning Entry 1 Procedure [...] Modified By: Lisbeth Haas RN 01/28/21 12:49:26 [facility] IntraOp Sign In Entry 1 Patient, [...] Modified By: Lisbeth Haas RN 01/28/21 12:49:41 [facility] IntraOp Sign Out Entry 1 RN [...] Modified By: Lisbeth Haas RN 01/28/21 13:18:15 [facility] IntraOp Skin Prep Entry 1 Procedure Hammer Toe Repair(Right), Neuroma Excision Soft Tissue Prescribed Yes Pre-Surgical Prep Completed Prep Area RIGHT FOOT Intraop Prep Integumentary WDL Assessment WDL Prep Agents Betadine scrub, Betadine solution Prep by Lisbeth Haas RN Hair Removal Methods No hair removal performed Last Modified By: Lisbeth Haas RN 01/28/21 12:50:10 [facility] IntraOp Surgical Procedures Entry 1 Entry 2 Procedure Hammer Toe Repair Neuroma Excision Soft Tissue Modifiers Right Additional (RT 2ND TOE [place]AM[place]OE Procedure CORRECTION, Description METATARSOPHALALNGEAL JOINT CAPSULOTOMY, PLANTAR PLATE REAPIR, RT FOOT EXCISION OF NEUROMA) Primary Procedure Yes No Primary Surgeon NORMA FOSTER, DPM-POD NORMA FOSTER DPM-POD Start 01/28/21 12:31:00 01/28/21 12:31:00 Stop 01/28/21 13:14:00 01/28/21 13:14:00 Physician States Cecum Reached Anesthesia Type MAC MAC Specialty SN Podiatry SN Podiatry Wound Class I - Clean I - Clean Last Modified By: Lisbeth Haas RN Proffitt, Debbie, RN 01/28/21 13:18:08 01/28/21 13:18:08 [facility] IntraOp Surgical Procedures Audit 01/28/21 13:18:08 Piecer: PROFITDE Modifier: PROFITDE <+> 1 Stop <+> 2 Stop [facility] IntraOP Time Out Entry 1 Procedure [...] Modified By: Lisbeth Haas RN 01/28/21 12:44:34 [facility] IntraOp Tourniquet Entry 1 Type Pneumatic Serial/Unit Number [id number] Setting 250 Pheumatic Yes Tourniquet Checked Per Protocol Size 18 inches Placement Ankle, right Skin Protection - Yes Padded Under Cuff Applied By Lisbeth Haas RN Removed By NORMA FOSTER DPM-POD Times Start Time 01/28/21 12:30:00 Stop Time 01/28/21 13:10:00 Total Time 40 calculated manually (Mins) Last Modified By: Lisbeth Haas RN 01/28/21 13:11:05 [facility] IntraOp Tourniquet Audit 01/28/21 13:11:05 Piecer: PROFITDE Modifier: PROFITDE <+> 1 Total Time calculated manually (Mins) <+> 1 Stop Time Case Comments <None> Finalized By: ARIELLE MASTERS Document Signatures Signed By: Lisbeth Haas RN 01/28/21 13:18 ARIELLE MASTERS 02/01/21 11:07 Unfinalized History Date/Time Username Reason for Unfinalizing Freetext Reason for Unfinalizing 02/01/21 11:05 SONAMDR Correct Billing documented in this encounter Plan of Treatment Not on file documented as of this encounter Visit Diagnoses Not on filedocumented in this encounter Care Teams Table Operator Relationship Specialty Start Date End Date Amalia Walter [address] [place] [address] PCP - General 04/09/24 documented as of this encounter
--- OUTSIDE RECORDS SUMMARY | 2025-11-04 13:40 | XMS_ITS | Encounter Summary ---
Author Organization [employer] ([place], [place], [place], [place], [place]) Address [address] [place] [address] Care Team Providers Care Spacer Type Bar And Segment Name Role Phone Amalia Watler Primary Care Provider Encounter Details Date Type Department Care Team (Late st Contact Info) Description 01/28/2021 Transcribed Document [facility] [place] Family Medicine [address] [place] [address] ProviderEmely MD [address] [place] [address] Social History Tobacco Use Types [...] Adams MD - 01/28/2021 2:29 PM [place] [id number] ZEHRA SHEPHERDE :1965 Visit Time:01/28/2021 What to do next [...] for as needed for pain Pickup at [facility] 7429 ascorbic acid (Vitamin C) 1,000 Milligram(s) Oral [...] 50 Milligram(s) Oral Every Day Pharmacy Information [facility] 7259: [phone] [facility] [address] [place], [place] [id number] [phone] Take your medications faithfully. Do NOT skip [...] that pinch your toes. ??? 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 ??? Have a second toe that [...] Follow these instructions at home: ??? Take xies-oqn-bdjgoan and prescription medicines only as told by [...] provider. Document Revised: 10/12/2018 Document Reviewed: 02/22/2017 [employer] Patient Education ?? 2020 [employer] General Anesthesia, Adult, Care After This [...] activities are safe for you. ??? Take zckw-gwj-qqowgyd and prescription medicines only as told by [...] provider. Document Revised: 11/02/2018 Document Reviewed: 06/15/2018 [employer] Patient Education ?? 2020 [employer]. Emergency Awareness and Preventative Care STROKE is [...] Assistance with quitting is available by contacting 2-176-XRQP-NOW. This is a free resource providing counseling, [...] :Potassium Level POC: :Potassium Level POC Patient Name:ZERHA SHEPHERD I have received this information and was given the opportunity to ask questions. Patient/Upscale Security Officer Name: Patient/Upscale Security Officer Signature: Relationship to Patient: Clinician/Hospital Upscale Security Officer Signature: Date: documented in this encounter Plan of Treatment Not on file documented as of this encounter Visit Diagnoses Not on filedocumented in this encounter Care Teams Spacer Type Bar And Segment Relationship Specialty Start Date End Date Amalia Walter [address] [place] [address] PCP - General 04/09/24 documented as of this encounter
--- OUTSIDE RECORDS SUMMARY | 2025-11-04 13:41 | XMS_ITS | Continuity of Care Document ---
Author Organization [place] Mag[place] Osei [facility] Address [address] [place] [address] Care Team Providers Care Wool Grader Name Role Phone JENNIFER WALTER Primary Care Provider Assessment No assessment recorded. Plan of Treatment Reminders Order Date Submit Date Provider Last Modified By Organization Details Last Modified Time Details Appointments Diabetic F/U 2025 04:40P M Jennifer Walter APRN Not available Not available Not available Lab CMP, serum or plasma 2024 025 [facility] ([facility]), [address], [place], [address], 08/29/2025 07:40:55 CBC w/ auto diff 2024 025 [facility] ([facility]), [address], [place], [address], 08/29/2025 01:28:40 lipid panel, serum 2024 025 [facility] [address], [place], [address], 09/01/2025 13:18:13 drug screen, 14 drugs (detectim ed), urine 2024 025 [facility] ([facility]), [address], [place], [address], 08/29/2025 05:06:35 vitamin D, 25-hydrox y, total, serum 2024 [facility] (Lab), [address], [place], [address], 09/01/2025 13:18:14 TSH + free T4, serum 2024 [facility] (Lab), [address], [place], [address], 09/01/2025 13:18:14 vitamin B12 + folate, serum or blood 2024 [facility] ([facility]), [address], [place], [address], 08/29/2025 08:28:40 Referral None recorded. Procedures None recorded. Surgeries None recorded. Imaging None recorded. Medication Orders diclofena c sodium 50 mg tablet,de layed release 2024 [facility], [address] [place], [address], 08/19/2025 17:48:19 Mounjaro 10 mg/0.5 mL subcutane ous pen injector 2024 [facility] - [facility], [address] [place] [address], [place], [address], 08/19/2025 17:48:17 metformin ER 500 mg tablet,ex tended release 24 hr 2024 [facility] - [facility], [address] [place] [address], [place], [address], 08/19/2025 17:48:15 Jardiance 10 mg tablet 2024 025 [facility] - [facility], [address] [place] [address], [place], [address], 08/19/2025 17:48:19 cyclobenz aprine 5 mg tablet 2024 025 [facility], [address] [place] [address], [place], [address], 08/19/2025 17:48:15 losartan 25 mg tablet 2024 025 [facility] - [facility], [address] [place] [address], [place], [address], 08/19/2025 17:48:14 bisoprolo l fumarate 5 mg tablet 2024 025 [facility], [address] [place] [address], [place], [address], 08/19/2025 17:48:17 rosuvasta tin 10 mg tablet 2024 025 [facility] - [facility], [address] [place] [address], [place], [address], 08/19/2025 17:48:17 clopidogr el 75 mg tablet 2024 025 [facility] - [facility], [address] [place] [address], [place], [address], 08/19/2025 17:48:19 gabapenti n 400 mg capsule 2024 025 [facility], [address] [place] [address], [place], [address], 08/19/2025 17:48:26 Patient TargetsNo targets recorded. Patient InstructionsNo instructions recorded. Reason for Referral None Reported. Results Created Date Observation Date Name Description Value Unit Range Abnormal Flag Note LastModifiedBy Organization Detail LastModifiedTime 09/09/2009/09/2025 cardi ac stres s test No observ ation record ed. [facility] [address], [place], [address], 09/09/2025 15:13:28 09/10/20 25 09/09/2025 cardi ac stres s test No observ ation record ed. [facility] [address], [place], [address], 09/11/2025 10:05:27 09/14/2009/09/2025 US, doppl er echoc ardio gram No observ ation record ed. [facility] [address], [place], [address], 09/15/2025 08:19:49 Result Notes None recorded. Problems Name Problem SNOMED Code Status Onset Date Resolution Date Notes Provider Name and Address Organization Details Recorded Time Diabetes mellitus 59512030 Active Not Available [facility] 3 03:20:06 Neuropathy 160959474 Active 2021 Not Available [facility] 3 03:20:05 Arthritis 2406621 Active 2022 Not Available [facility] 3 03:20:05 Basal cell carcinoma of skin 384147839 Active 2022 Sarahkat wil, CLINICAL SUPERVISOR [address], [place], [address] , [place] - [facility] 3 10:22:52 Coronary arteriosclero sis 26309982 Active 2024 Sarahvishnuangi Chesterwil, CLINICAL SUPERVISOR [address], [place], [address] , [place] - [facility] 5 08:50:23 Problem Notes None recorded. Procedures Surgical History Date Name Laterality Status Provider Name and Address Organization Details Recorded Time 04/14/20 25 Medication Reconcilliation completed Zenaida Rae [place] - [facility] 04/14/2025 09:55:25 03/26/20 25 amputation of toe completed Zenaida Rae [place] - [facility] 04/14/2025 10:07:57 06/18/20 24 EXCISION OF CYST (SURG) completed Jennifer Walter, CLINICAL SUPERVISOR [address], [place], [address], [place] - [facility] 06/20/2024 08:09:44 05/23/20 24 EXCISION OF CYST (SURG) completed Jennifer Walter, CLINICAL SUPERVISOR [address], [place], [address], [place] - [facility] 05/24/2024 08:41:37 03/16/20 24 EXCISION OF CYST (SURG) completed Jennifer Walter, AKSHAT [address], [place], [address], [place] - [facility] 04/16/2024 15:15:10 02/13/20 22 [...] Sara Chacko [place] - [facility] 06/17/2022 09:06:11 01/01/19 77 Tonsillectomy completed Sara THAKKAR - [facility] 06/17/2022 09:06:11 Cardiac Cath completed Sara THAKKAR - [facility] 06/22/2023 14:20:39 Imaging Results None recorded. Procedure Notes None recorded. Medical Equipment None Reported. Allergies Allergen ID Allergen Name Allergen Category Reaction Reaction Severity Criticality Documentation Date Start Date Code Code System Note Provider Name and Address Organization Details Recorded Time 209387 lisinopri l medicatio n Not available Not available Not available 10/01/2025 27551 RxNorm unrec ogniz ed react ion (text : Adver se react ion to subst ance, code: 64239 0009) (from exter nal sourc e) Not Available [employer] - prod 5 09:23:12 072563 latex environme nt,medica tion rash Not available low 10/01/20252018 97144 91 RxNorm Not Available [employer] - prod 5 09:25:44 456086 Latex (substanc e) environme nt,medica tion rash Not available low 10/01/20252018 75808 8007 SNOMED Not Available [employer] - prod 5 09:27:21 Medications Name Sig Start Date Stop Date [...] Available Not Available Not Available doxycycli ne hyclate 100 mg capsule TAKE 1 CAPSULE BY MOUTH TWICE DAILY WITH FOOD FOR 7 DAYS active Not Available Not Available No t Available clindamyc in HCl 300 mg capsule TAKE 2 CAPSULES BY MOUTH ONE HOUR BEFORE PROCEDUR E active Not Available Not Available No t Available triamcino lone acetonide 0.5 % topical [...] Available Not Available Not Available hydrocodo ne 10 mg-acetam inophen 325 mg tablet TAKE 1/2 (ONE-MARITZA F) TABLET BY MOUTH EVERY 8 HOURS NEEDED FOR PAIN UNCONTRO LLED BY OVER THE COUNTER ANALGESI CS active Not Available Not Available No t Available lovastati n 10 mg tablet Take [...] Not Available Not Available bisoprolo l fumarate 10 mg tablet TAKE 1 TABLET BY MOUTH ONCE DAILY active Not Available Not Available No t Available bisoprolo l fumarate 5 mg tablet TAKE 1 & 1/2 (ONE & ONE-HALF ) TABLETS BY MOUTH ONCE DAILY active Not Available [...] c sodium 50 mg tablet,de layed release Take 1 tablet by mouth twice daily as needed 2024 active Not Available Not Available Not Avai lable clobetaso l 0.05 % topical ointment APPLY [...] 500 mg tablet,ex tended release 24 hr TAKE 1 TABLET BY MOUTH ONCE DAILY active Not Available Not Available No t Available doxycycli ne hyclate 100 mg tablet TAKE [...] Not Available Not Available No t Available sodium polystyre ne sulfonate 15 gram-sorb itol [...] Available Not Available No t Available Mounjaro 12.5 mg/0.5 mL subcutane ous pen injector INJECT 1 PEN SUBCUTAN EOUSLY ONCE A WEEK 07/08 completed made patient sick/vom iting Not Available Not Available Not Available Mounjaro 2.5 mg/0.5 mL subcutane ous pen injector INJECT 1 PEN SUBCUTAN EOUSLY ONCE A WEEK 2024 active Not Available Not Available Not Avai lable Dexcom G7 Sensor device USE DIRECTED active Not Available Not Available No t Available Ozempic 0.25 mg or 0.5 mg (2 mg/3 mL) subcutane ous pen injector INJECT 0.5 MG SUBCUTAN EOUSLY ONCE A WEEK 07/27 completed Not Available Not Available Not Available Vitals Date Recorded Body height Respiratory rate Body mass index (BMI) Body weight Heart rate Oxygen saturation Body temperature Systolic And Diastolic Provider Name and Address Organization Details Last Updated DateTime 175.26 cm 18 /min 26.9 kg/m2 64540.8 1 g 76 /min 94 % 98 [degF] 126/78 mm[Hg] Zenaida [...] Or The Highest Degree You Have Received? 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 AZ3431-7 Information not available 06/17/2022 Do you have [...] Details Recorded Time Pneumococcal conjugate PCV20, polysaccharide ESS406 conjugate, adjuvant, PF 025 cancelled patient objection Jennifer Walter, CLINICAL SUPERVISOR [address], [place], [address], [place] - [facility] 08/19/2025 17:51:05 Tdap 025 cancelled patient objection Jennifer Walter, CLINICAL SUPERVISOR [address], [place], [address], [place] - [facility] 08/19/2025 17:51:05 zoster recombinant 020 completed Not Available [facility] 05/09/2023 03:20:06 zoster recombinant 021 completed Not Available [facility] 05/09/2023 03:20:06 Influenza, split virus, quadrivalent, preservative 021 completed Not Available [facility] 12/21/2023 15:47:54 Influenza, split virus, quadrivalent, PF 017 completed Not Available [facility] 05/09/2023 03:20:06 influenza, split (incl. purified surface antigen) 013 completed Not Available [facility] 05/09/2023 03:20:06 Influenza, split virus, quadrivalent, PF 020 completed Not Available [facility] 05/09/2023 03:20:06 Hep A-Hep B 019 completed Not Available [facility] 05/09/2023 03:20:06 Hep A-Hep B 018 completed Not Available [facility] 05/09/2023 03:20:06 Influenza, split virus, quadrivalent, PF 019 completed Not Available [facility] 05/09/2023 03:20:06 Hep A-Hep B 018 completed Not Available [facility] 05/09/2023 03:20:06 Influenza, split virus, quadrivalent, PF 018 completed Not Available [facility] 05/09/2023 03:20:06 Influenza, split virus, quadrivalent, PF 021 completed Not Available [facility] 05/09/2023 03:20:06 Past Encounters Encounter ID Performer Location Encounter Start Date Encounter Closed Date Diagnosis/Indication Diagnosis SNOMED-CT Code Diagnosis ICD10 Code Diagnosis IMO Codes Diagnosis Note [id number] Jennifer Walter APRN [address] [place] [address] 08/19/2025 16:39:19 08/19/2025 17:42:20 Type 2 diabetes mellitus 47063355 E11.9 *Diabetic Measures:M etformin:y esACE/ARB: yesASA:yes Statin:yes GLP:yesa1c 7.9% Coronary arteriosclerosis 31985793 I25.10 Essential hypertension 52483542 I10 Arthritis 6664472 M19.90 Spasm of back muscles 20 1574146 M62.830 Neuropathy 386904585 G62 .9 Pt compliant with plan of careNandosper reviewedme dication compliance discussedc obtainedud s:02/25/25 Pneumococc al vaccination declined 390598764 Z28.21 10349997 Tetanus di phtheria and acellular pertussis vaccination declined 9598925856 2562926 Z28.21 2734533791 HIV screen ing declined 2272862576 34665 Z53.20 4620315681 Vaccination declined 713 1262483 Z28.21 Seasonal flu vaccine offered and declined Malaise and fatigue 2717 21726 R53.81 R53.83 92013 Long-term current use of drug therapy 102640329 Z79.899 58250382 Health Concerns Section Related Observation LastModified by Organization Detai ls LastModified Time None Recorded Concern Status LastModified by Organization Details LastModified Time None Recorded Payers Encounter Date Sequence Insurance Name Policy Number Policy Gregorio Covered Member ID Gregorio Member ID Guarantor Name 08/19/2025 1 [place] [id number] Zehra Aguayoor [id number] Zehra Shepherd Notes Date Note Type Note [...] states she is feeling tired Jennifer Walter, CLINICAL SUPERVISOR [address], [place], [address], [place] - [facility] 08/19/2025 17:51:32 OBGyn Episode No OBEpisode recorded.
--- OUTSIDE RECORDS SUMMARY | 2025-11-04 13:41 | XMS_ITS | Encounter Summary ---
Author Organization [employer] ([place], [place], [place], [place], [place]) Address [address] [place] [address] Care Team Providers Care Wire Steward Name Role Phone Amalia Walter Primary Care Provider [phone] Encounter Details Date Type Department Care Team (Late st Contact Info) Description 01/28/2021 Transcribed Document [facility] [address] [place] [address] ProviderEmely MD [address] [place] [address] Social History Tobacco Use Types [...] Emely ProviderMD - 01/28/2021 12:31 PM CDT [facility] Main OR PostOp Summary Primary Physician: NORMA FOSTER DPM-POD Finalized Date/Time: 01/28/21 16:01:28 Pt. Name: ZEHRA SHEPHERD /Sex: 1965 Female Med Rec #: [id number] Physician: NORMA FOSTER DPM-POD Financial #: [id number] Pt. Type: O Room/Bed: /25 Admit/Disch: 01/28/21 08:17:00 - Institution: [facility] Main OR PostOp Case Times Entry [...] Unfinalizing Freetext Reason for Unfinalizing 01/28/21 16:01 [id number] Modify Pick List Electronically signed by Rebecca [facility] Conversion Sewer Maintenance Supervisor Cerner at 02/28/2023 7:34 PM CDT documented in this encounter Plan of Treatment Not on file documented as of this encounter Visit Diagnoses Not on filedocumented in this encounter Care Teams Wire Steward Relationship Specialty Start Date End Date Saba Amalia [address] [place] [address] PCP - General 04/09/24 documented as of this encounter
--- OUTSIDE RECORDS SUMMARY | 2025-11-04 13:41 | XMS_ITS | Clinical Summary ---
Author Organization [employer] ([place], [place], [place], [place], [place]) Address [address] [place] [address] Care Team Providers Care Outsewer Name Role Phone Amalia Walter Primary Care Provider [phone] Allergies Active Allergy Reactions Criticality Noted Date [...] by mouth daily as needed for Heartburn. 4 Active ascorbic acid, vitamin C, (vitamin C) [...] Date Tien rded Speak language other than [place] at home Not on file 03/12/2024 Want [...] Lipid Panel 2009 Hemoglobin A1C 10/10/2024 04/09/2024 Respiratory Syncytial Virus (RSV) Adult or (1 - Risk 60-74 years 1-dose series) 2024 Diabetic Eye Exam 02/04/2025 02/05/2024, , 11/16/2021, Additional history exists Tobacco Cessation Counseling and Screening (12+) 04/17/2025 04/17/2024 COVID-19 VACCINE (1 - 2023-2 5 season) 2025 Influenza Vaccine (#1) 2025 11/01/2013 Shingles Vaccine (Zoster) Completed 01/12/2021, Medical Devices Implanted Type Area Purification Operator Helper Device Identifier Shelf Expiration Date Model / Serial / Lot Psn Lizzy Spkd 0 Sz F Oss L [id number]- 01 - [id number] Implanted:Qt y: 1 on 04/17/2024 at [facility] TOTAL JOINT CONSTRUCT Left: Knee RUPERT:RUPERT [id number] 07/07/2033 42-5350-0 75-01 [id number] Psn Fem Cr Pps Cocr Nrw Sz9 L 90-2769-158- 01 - [id number] Implanted:Qt y: 1 on 04/17/2024 at [facility] [employer] Left: Knee RUPERT:RUPERT [id number] 02/14/2033 42-5080-0 66-01 / / [id number] Psn Art Surf 10mm 8-11/E-F Lt 12-3590-180- 10 - [id number] Implanted:Qt y: 1 on 04/17/2024 at [facility] [employer] Left: Knee RUPERT:RUPERT [id number] 12/20/2028 42-5121-0 08- / [id number] Procedures Procedure Name Priority Date/Time Associated Diagnosis Comments HEMOGLOBIN A1C Routine 04/09/2024 2:56 PM EDT Preop testing from Last 3 Months or Most Recently Relevant to Health Maintenance Results * Hemoglobin A1c (04/09/2024 2:56 PM EDT) Hemoglobin A1C 6.5 % 04/09/2024 6:57 PM EDT [facility] Comment: Hemoglobin A1C levels are related to mean glucose during the preceding 2-3 months. Less than 7% demonstrates glycemic control in diabetic patients. Hemoglobin AlC % Suggested Diagnosis > or = 6.5 Diabetic 5.7 - 6.4 Prediabetic <5.7 Non-diabetic eAVG Glucose 139.85 mg/dL 04/09/2024 6:57 PM EDT [facility] Blood Venipuncture / Unknown 04/09/2024 2:56 PM EDT 04/09/2024 4:30 PM EDT Nicholas Castro MD LAB BLOOD ORDERABLES Final Result [facility] [address] [phone] from Last 3 Months or Most Recently Relevant to Health Maintenance Insurance BLUE CROSS/BLUE SHIELD Advance Directives For more information, please contact: [phone] * Full Code (Latest Code Status on File) Date Activated Date Inactivated Comments 04/17/2024 1:15 PM 04/18/2024 2:19 PM * Full Code Date Activated Date Inactivated Comments 04/17/2024 7:55 AM 04/17/2024 1:15 PM Care Teams Outsewer Relationship Specialty Start Date End Date Saba Amalia [address] [place] [address] PCP - General 04/09/24
--- OUTSIDE RECORDS SUMMARY | 2025-11-04 13:41 | XMS_ITS | Referral Summary ---
Author Organization [employer] ([place], [place], [place], [place], [place]) Address [address] [place] [address] Care Team Providers Care Utility Tech Name Role Phone Amalia Walter Primary Care Provider [phone] Allergies Active Allergy Reactions Criticality Noted Date [...] Date Tien rded Speak language other than Chadian at home Not on file 03/12/2024 Want [...] on file Medical Devices Implanted Type Area Order Processor Device Identifier Shelf Expiration Date Model / Serial / Lot Psn Lizzy Spkd 0 Sz F Oss L [id number] 01 - [id number] Implanted:Qt y: 1 on 04/17/2024 at [facility] [employer]STRU[employer] Left: Knee RUPERT:RUPERT [id number] 07/07/2033 42-5350-0 75-01 / / [id number] Psn Fem Cr Pps Cocr Nrw Sz9 L 62-9277-271- 01 - [id number] Implanted:Qt y: 1 on 04/17/2024 at [facility] [employer]STRU[employer] Left: Knee RUPERT:RUPERT [place] [id number] 02/14/2033 42-5080-0 66- [id number] Psn Art Surf 10mm 8-11/E-F Lt 24-9432-626- 10 - [id number] Implanted:Qt y: 1 on 04/17/2024 at [facility] [employer]STRU[employer] Left: Knee RUPERT:RUPERT [place] [id number] 12/20/2028 42-5121-0 06-22 [id number] Procedures Procedure Name Priority Date/Time Associated Diagnosis Comments HEMOGLOBIN A1C Routine 04/09/2024 2:56 PM EDT Preop testing from Last 3 Months or Most Recently Relevant to Health Maintenance Results * Hemoglobin A1c (04/09/2024 2:56 PM EDT) Hemoglobin A1C 6.5 % 04/09/2024 6:57 PM EDT [facility] Comment: Hemoglobin A1C levels are related to mean glucose during the preceding 2-3 months. Less than 7% demonstrates glycemic control in diabetic patients. Hemoglobin AlC % Suggested Diagnosis > or = 6.5 Diabetic 5.7 - 6.4 Prediabetic <5.7 Non-diabetic eAVG Glucose 139.85 mg/dL 04/09/2024 6:57 PM EDT [facility] Blood Venipuncture / Unknown 04/09/2024 2:56 PM EDT 04/09/2024 4:30 PM EDT Nicholas Castro MD LAB BLOOD ORDERABLES Final Result [facility] [address] [phone] from Last 3 Months or Most Recently Relevant to Health Maintenance Insurance BLUE CROSS/BLUE SHIELD Advance Directives For more information, please contact: [phone] * Full Code (Latest Code Status on File) Date Activated Date Inactivated Comments 04/17/2024 1:15 PM 04/18/2024 2:19 PM * Full Code Date Activated Date Inactivated Comments 04/17/2024 7:55 AM 04/17/2024 1:15 PM Care Teams Utility Tech Relationship Specialty Start Date End Date Amalia Walter [address] [place] [address] PCP - General 04/09/24
--- OUTSIDE RECORDS SUMMARY | 2025-11-04 13:41 | XMS_ITS | Continuity of Care Document ---
Author Organization [facility], ORTHOPEDICS [address] [place] [address] Care Team Providers Care Body Art Technician Name Role Phone KALEYRAMANDEEP DAWKINS Primary Care Provider BETO VALENTE Orthopedic Surgeon CHAITANYA PARK Digital Printer Assessment No assessment recorded. Plan of Treatment Reminders Order Date Submit Date Provider Last Modified By Organization Details Last Modified Time Details Appointments RECHEC K 2025 08:20A M EMMANUELLE FENTON MD Not available Not available Not available Lab None record ed. Referral None record ed. Procedures None record ed. Surgeries None record ed. Imaging None record ed. Medication Orders None record ed. Patient TargetsNo targets recorded. Patient Instructions Encounter Date Encounter Id Patient Instructions Last Modified By Organization Details Last Modified Time 09/23/2025 [id number] We reviewed her scope and images and x-rays. She has advanced osteoarthritis especially the patellofemoral and lateral joint lines. We aspirated her right knee today as there was some slight warmth suprapatella pouch she says that is normal. But in light of her recent right toe infection certainly will be cautious before injecting steroid. The fluid was clear. In light of the fluid be unremarkable felt it reasonable to proceed with a steroid injection. She is looking for relief of this pain and would not have surgery for approximately 8 to 9 months with repeat aorta replacement. She is still working at [employer] standing all day long. 1. Right knee osteoarthritis Continue knee brace use, modify activities, consider further orthopedic intervention if needed. 2. Limited knee flexion and extension Recommend physical therapy to improve range of motion and strength. 3. Second toe amputation No further intervention required. I discussed with the patient the current status of her right knee osteoarthritis, emphasizing the need to be cautious with activity. We reviewed the potential need for additional orthopedic procedures if her symptoms do not improve. I also recommended physical therapy to enhance knee flexibility and strength. We addressed her history of second toe amputation, confirming no further treatment is necessary at this time. Follow-up appointments will be scheduled to monitor her progress and adjust the treatment plan as needed. Ultimately she needs right knee replacement with Dr. Richy davila Not available 10/01/2025 18:16:18 Reason for Referral None Reported. Results Created Date Observation Date Name Description Value Unit Range Abnormal Flag Note LastModifiedBy Organization Detail LastModifiedTime 09/24/2009/23/2025 XR, knee, 4 or more view [facility] [address] [place] [address] Patien t Name: ZEHRA ESPINO Patimirta t : 1964 Patien t Orderi ng Provid er: BETO VALENTE EXAM DATE: 2024 EXAM: XR RT KNEE COMPLE TE, 4 OR MORE VWS COMPAR JOSÉ: None. HISTOR Y: Pain FINDIN GS: There is narrow ing of latera l compar tment of the right knee with spurri ng. No fractu re or disloc ation. No intrao sseous lesion is presen t. Contra latera l knee: Uncomp licate d appear ing TKA IMPRES FARAZ: 1. There are severe degene rative change s in the right knee. Interp reted By: Pedro Adler MD Electr onical ly Signed By: Pedro Adler MD on 2024 2:19 PM giovanni [facility] [address] [place] [address], [phone], 09/25/2025 13:20:30 Result Notes Documentation Provider Name and Address Organization Details Recorded Time Xr, Knee, 4 Or More View : [facility] [address] [place] [address] Patient Name: ZEHRA S SANOR Patient : 1965 Patient Ordering Provider: BETO VALENTE EXAM DATE: 09/23/2025 EXAM: XR RT KNEE COMPLETE, 4 OR MORE VWS COMPARISON: None. HISTORY: Pain FINDINGS: There is narrowing of lateral compartment of the right knee with spurring. No fracture or dislocation. No intraosseous lesion is present. Contralateral knee: Uncomplicated appearing TKA IMPRESSION: 1. There are severe degenerative changes in the right knee. 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 Active 2014 From Automated Load;Prov ider: Myron Thornton;S tatus: Active Not Available [facility] 6 08:50:20 Idiopathi c osteoarth ritis 654152796 Active 2014 From Automated Load;Prov ider: Myron Thornton;S tatus: Active Not Available [facility] 6 08:50:20 Skin sensation disturban ce 54485174 Active 2014 From Automated Load;Prov ider: Myron Thornton;S tatus: Active Not Available [facility] 6 08:50:20 Finding of sensation of skin Active 2014 From Automated Load;Prov ider: Myron Thornton;S tatus: Active Not Available [facility] 6 08:50:20 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 2014 From Automated Load;Prov ider: Myron Thornton;S tatus: Active Not Available [facility] 6 08:50:20 Injury of tendon of the rotator cuff of shoulder 377106936 Active 2018 PEDRO CHAVES II, PT, DPT [address] [place], [address] , [facility] 9 07:20:38 Muscle weakness 27036399 Active 2018 PEDRO CHAVES II, PT, DPT [address] [place], [address] , [facility] 9 07:20:39 Spasm 65148490 Active 2018 PEDRO CHAVES II, PT, DPT [address] [place], [address] , [facility] 9 07:20:40 Muscular incoordin ation 41188691 Active 2018 PEDRO CHAVES II, PT, DPT [address] [place], [address] , [facility] 9 07:20:41 History of operative procedure on shoulder 223441727 Active 2018 PEDRO CHAVES II, PT, DPT [address] [place], [address] , [facility] 9 11:27:20 Biceps tendiniti s 806581580 Active 2018 PEDRO CHAVES II, PT, DPT [address] [place], [address] , [facility] 9 11:27:20 History of arthrosco py of knee joint 157601522 [facility] 16:25:08 Abnormal gait 25819887 [facility] 9 16:25:22 Coronary arteriosc lerosis 36951464 Active 2023 EMMANUELLE Andrew MD [address] [place], [address] , [facility] 4 17:48:09 History of percutane ous coronary intervent ion 134149624 Active 2023 EMMANUELLE Andrew MD [address] [place], [address] , [facility] 4 17:48:10 Type 2 diabetes mellitus without complicat ion 946764135 Active 2023 EMMANUELLE Andrew MD [address] [place] [address], [address] , [facility] 4 17:48:11 Osteoarth ritis of left knee joint 95079493956 9109 Active 2023 EMMANUELLE Andrew MD [address] [place] [address], [address] [place] [address] , [facility] 4 17:48:13 Problem Notes None recorded. Procedures Surgical History Date Name Laterality Status Provider Name and Address Organization Details Recorded Time 09/23/20 25 Injection - Joint/Bursa, Major completed BETO VALENTE MD [address] [place] [address], [address] [place] [address], [facility] 09/23/2025 14:33:54 09/23/20 25 Aspiration Joint/Bursa, Major completed BETO VALENTE MD [address] [place] [address], [address], [facility] 10/01/2025 18:15:03 04/17/20 24 Total knee arthroplasty completed Mekhi Weathers [facility] 05/29/2024 09:32:34 04/11/20 24 PCM Visit completed Mekhi Weathers [facility] 04/11/2024 14:50:11 11/21/19 24 Injection - Joint/Bursa, Major completed Holly Umanzor [facility] 11/21/2023 08:46:28 05/22/20 23 Injection - Joint/Bursa, Major completed Jerod Del Castillo [facility] 06/23/2023 07:49:10 05/22/20 23 Injection - Joint/Bursa, Second, Major completed Rosalind Ferreira [facility] 05/22/2023 17:27:54 08/16/20 22 Injection - Trigger Finger, Ortho completed MYRON THRONTON MD [address] [place], [address], [facility] 08/16/2022 09:40:25 04/20/20 22 Trigger Finger Release - Spearman completed MYRON THORNTON MD [address] [place], [address], [facility] 04/20/2022 08:01:04 02/26/20 22 Injection - Trigger Finger, Ortho completed MYRON THORNTON MD [address] [place], [address], [facility] 02/25/2022 10:45:00 12/20/19 22 Injection - Joint/Bursa, Major completed BETO VALENTE MD [address] [place], [address], [facility] 01/02/2022 17:35:18 09/02/20 21 Suture/Staple removal completed TY VARGAS PA-C [address] [place], [address], [facility] 09/03/2021 08:52:33 08/27/20 21 Orthopedic Surgery completed Florencio Christie [facility] 09/02/2021 08:56:23 05/24/20 21 Injection - Joint/Bursa, Major completed BETO VALENTE MD [address] [place], [address], [facility] 06/13/2021 22:49:50 05/18/20 21 Injection - Joint/Bursa, Major completed BETO VALENTE MD [facility] [address] [place], [address], [facility] 05/18/2021 22:13:50 07/13/20 20 Injection - Joint/Bursa, Major completed BETO VALENTE MD [facility] [place], [address], [facility] 07/13/2020 10:17:56 01/27/20 20 Injection - Joint/Bursa, Major completed Kristine Claros [facility] 01/27/2020 12:22:40 01/27/20 20 Aspiration Joint/Bursa, Major completed BETO VAELNTE MD [address] [place], [address], [facility] 01/27/2020 13:00:00 09/23/20 19 Injection - Joint/Bursa, Major completed Jerod Del Castillo [facility] 09/23/2019 11:26:13 08/05/20 19 PT Manual Therapy completed PEDRO GOODWINT II, PT, DPT [address] [place], [address], [facility] 08/12/2019 05:18:25 08/05/20 19 PT Therapeutic Exercise completed PEDRO GOODWINT II, PT, DPT [address] [place], [address], [facility] 08/12/2019 05:18:06 08/01/20 19 PT Manual Therapy completed PEDRO GOODWINT II, PT, DPT [address] [place], [address], [facility] 08/01/2019 09:40:45 08/01/20 19 PT Therapeutic Exercise completed PEDRO CHAVES II, PT, DPT [address] [place], [address], [facility] 08/01/2019 09:40:21 07/30/20 19 PT Therapeutic Exercise completed PEDRO CHAVES II, PT, DPT [address] [place], [address], [facility] 08/12/2019 05:12:01 07/30/20 19 PT Manual Therapy completed PEDRO GOODWINT II, PT, DPT [address] [place], [address], [facility] 08/12/2019 05:08:25 07/30/20 19 PT Therapeutic Exercise completed PEDRO GOODWINT II, PT, DPT [address] [place], [address], [facility] 08/12/2019 05:08:11 07/25/20 19 PT Manual Therapy completed PEDRO GOODWINT II, PT, DPT [address] [place], [address], [facility] 08/05/2019 12:06:04 07/25/20 19 PT Therapeutic Exercise completed PEDRO GOODWINT II, PT, DPT [address] [place], [address], [facility] 08/05/2019 12:05:37 07/23/20 19 PT Manual Therapy completed PEDRO GOODWINT II, PT, DPT [address] [place], [address], [facility] 07/24/2019 11:16:21 07/23/20 19 PT Therapeutic Exercise completed PEDRO GOODWINT II, PT, DPT [address] [place], [address], [facility] 07/24/2019 11:16:02 07/23/20 19 PT Therapeutic Exercise completed PEDRO GOODWINT II, PT, DPT [address] [place], [address], [facility] 07/23/2019 13:02:26 07/19/20 19 PT Therapeutic Exercise completed PEDRO GOODWINT II, PT, DPT [address] [place], [address], [facility] 07/23/2019 12:54:51 07/19/20 19 PT Manual Therapy completed PEDRO GOODWINT II, PT, DPT [address] [place], [address], [facility] 07/25/2019 14:39:48 07/19/20 19 PT Therapeutic Exercise completed PEDRO GOODWINT II, PT, DPT [address] [place], [address], [facility] 07/25/2019 14:39:27 07/16/20 19 PT Manual Therapy completed PEDRO GOODWINT II, PT, DPT [address] [place], [address], [facility] 07/16/2019 14:27:43 07/16/20 19 PT Therapeutic Exercise completed PEDRO GOODWINT II, PT, DPT [address] [place], [address], [facility] 07/16/2019 14:27:14 07/11/20 19 PT Manual Therapy completed PEDRO GOODWINT II, PT, DPT [address] [place], [address], [facility] 07/24/2019 12:37:40 07/11/20 19 PT Therapeutic Exercise completed PEDRO GOODWINT II, PT, DPT [address] [place], [address], [facility] 07/24/2019 12:37:23 07/09/20 19 PT Manual Therapy completed PEDRO GOODWINT II, PT, DPT [address] [place], [address], [facility] 07/09/2019 15:01:21 07/09/20 19 PT Therapeutic Exercise completed PEDRO GOODWINT II, PT, DPT [address] [place], [address], [facility] 07/09/2019 15:01:08 07/09/20 19 PT Therapeutic Exercise completed PEDRO GOODWINT II, PT, DPT [address] [place], [address], [facility] 07/09/2019 14:59:26 07/04/20 19 PT Manual Therapy completed PEDRO GOODWINT II, PT, DPT [address] [place], [address], [facility] 07/04/2019 09:02:44 07/04/20 19 PT Therapeutic Exercise completed PEDRO GOODWINT II, PT, DPT [address] [place], [address], [facility] 07/04/2019 09:02:48 07/04/20 19 PT Manual Therapy completed PEDRO GOODWINT II, PT, DPT [address] [place], [address], [facility] 07/04/2019 15:33:26 07/04/20 19 PT Therapeutic Exercise completed PEDRO GOODWINT II, PT, DPT [address] [place], [address], [facility] 07/04/2019 15:33:12 07/01/20 19 PT Manual Therapy completed PEDRO GOODWINT II, PT, DPT [address] [place], [address], [facility] 07/02/2019 16:12:04 07/01/20 19 PT Therapeutic Exercise completed PEDRO CHAVES II, PT, DPT [address] [place], [address], [facility] 07/01/2019 10:07:01 06/27/20 19 PT Evaluation - Low Complexity completed [facility] 06/27/2019 16:21:15 06/27/20 19 PT Manual Therapy completed [facility] 06/27/2019 11:06:21 06/27/20 19 PT Therapeutic Exercise completed [facility] 06/27/2019 11:05:41 06/24/20 19 PT Manual Therapy completed [facility] 06/24/2019 08:45:21 06/24/20 19 PT Therapeutic Exercise completed [facility] 06/24/2019 08:45:24 06/20/20 19 PT Manual Therapy completed [facility] 06/20/2019 13:05:12 06/20/20 19 PT Therapeutic Exercise completed [facility] 06/20/2019 13:01:47 06/17/20 19 PT Manual Therapy completed [facility] 06/17/2019 11:03:37 06/17/20 19 PT Therapeutic Exercise completed [facility] 06/17/2019 11:03:39 06/13/20 19 PT Manual Therapy completed PEDRO CHAVES II, PT, DPT [address] [place], [address], [facility] 06/18/2019 10:21:00 06/13/20 19 PT Therapeutic Exercise completed PEDRO CHAVES II, PT, DPT [address] [place], [address], [facility] 06/18/2019 10:20:41 06/13/20 19 Suture/Staple removal completed Gian LOAIZA PA-C [address] [place], [address], [facility] 06/18/2019 09:08:20 06/10/20 19 PT Manual Therapy completed [facility] 06/10/2019 10:05:46 06/10/20 19 PT Therapeutic Exercise completed [facility] 06/10/2019 10:04:35 06/07/20 19 Orthopedic Surgery completed Florencio Christie [facility] 06/13/2019 14:15:48 06/05/20 19 PT Manual Therapy completed [facility] 06/05/2019 09:56:35 06/05/20 19 PT Therapeutic Exercise completed [facility] 06/05/2019 09:55:56 05/27/20 19 PT Manual Therapy completed PEDRO CHAVES II, PT, DPT [address] [place], [address], [facility] 05/27/2019 11:03:26 05/27/20 19 PT Therapeutic Exercise completed PEDRO CHAVES II, PT, DPT [address] [place], [address], [facility] 05/27/2019 11:03:14 05/23/20 19 PT Manual Therapy completed [facility] 05/23/2019 11:01:09 05/23/20 19 PT Therapeutic Exercise completed [facility] 05/23/2019 10:59:31 05/20/20 19 PT Manual Therapy completed PEDRO CHAVES II, PT, DPT [address] [place], [address], [facility] 05/20/2019 16:07:37 05/20/20 19 PT Therapeutic Exercise completed PEDRO CHAVES II, PT, DPT [address] [place], [address], [facility] 05/20/2019 16:07:22 05/15/20 19 PT Manual Therapy completed PEDRO GOODWINT II, PT, DPT [address] [place], [address], [facility] 05/15/2019 09:24:02 05/15/20 19 PT Therapeutic Exercise completed PEDRO GOODWINT II, PT, DPT [address] [place], [address], [facility] 05/15/2019 09:23:46 05/13/20 19 PT Manual Therapy completed PEDRO GOODWINT II, PT, DPT [address] [place], [address], [facility] 05/14/2019 12:07:47 05/13/20 19 PT Therapeutic Exercise completed PEDRO GOODWINT II, PT, DPT [address] [place], [address], [facility] 05/14/2019 12:07:30 05/10/20 19 PT Manual Therapy completed PEDRO GOODWINT II, PT, DPT [address] [place], [address], [facility] 05/14/2019 12:15:43 05/10/20 19 PT Therapeutic Exercise completed PEDRO GOODWINT II, PT, DPT [address] [place], [address], [facility] 05/14/2019 12:15:21 05/07/20 19 PT Manual Therapy completed PEDRO GOODWINT II, PT, DPT [address] [place], [address], [facility] 05/07/2019 09:37:22 05/07/20 19 PT Therapeutic Exercise completed PEDRO GOODWINT II, PT, DPT [address] [place], [address], [facility] 05/07/2019 09:37:12 04/30/20 19 PT Manual Therapy completed PEDRO GOODWINT II, PT, DPT [address] [place], [address], [facility] 04/30/2019 12:48:45 04/30/20 19 PT Therapeutic Exercise completed PEDRO GOODWINT II, PT, DPT [address] [place], [address], [facility] 04/30/2019 12:48:18 04/26/20 19 PT Manual Therapy completed PEDRO GOODWINT II, PT, DPT [address] [place], [address], [facility] 04/26/2019 09:24:58 04/26/20 19 PT Therapeutic Exercise completed PEDRO GOODWINT II, PT, DPT [address] [place], [address], [facility] 04/26/2019 09:24:35 04/23/20 19 PT Manual Therapy completed PEDRO GOODWINT II, PT, DPT [address] [place], [address], [facility] 04/23/2019 09:22:49 04/23/20 19 PT Therapeutic Exercise completed PEDRO GOODWINT II, PT, DPT [address] [place], [address], [facility] 04/23/2019 09:22:36 04/19/20 19 PT Manual Therapy completed PEDRO GOODWINT II, PT, DPT [address] [place], [address], [facility] 04/19/2019 09:38:21 04/19/20 19 PT Therapeutic Exercise completed PEDRO GOODWINT II, PT, DPT [address] [place], [address], [facility] 04/19/2019 09:38:09 04/16/20 19 PT Manual Therapy completed PEDRO GOODWINT II, PT, DPT [address] [place], [address], [facility] 04/19/2019 14:52:48 04/16/20 19 PT Therapeutic Exercise completed PEDRO GOODWINT II, PT, DPT [address] [place], [address], [facility] 04/19/2019 14:52:18 04/11/20 19 PT Manual Therapy completed PEDRO GOODWINT II, PT, DPT [address] [place], [address], [facility] 04/11/2019 13:14:32 04/11/20 19 PT Therapeutic Exercise completed PEDRO GOODWINT II, PT, DPT [address] [place], [address], [facility] 04/11/2019 13:14:26 03/27/20 19 PT Evaluation - Moderate Complexity completed PEDRO CHAVES II, PT, DPT [address] [place], [address], [facility] 03/27/2019 11:19:26 03/27/20 19 PT Therapeutic Exercise completed PEDRO CHAVES II, PT, DPT [address] [place], [address], [facility] 03/27/2019 11:19:48 03/14/20 19 Suture/Staple removal completed Gian LOAIZA PA-C [address] [place], [address], [facility] 03/17/2019 16:37:13 03/08/20 19 Orthopedic Surgery completed Florencio Christie [facility] 03/14/2019 14:49:02 02/06/20 19 PT Manual Therapy completed PEDRO CHAVES II, PT, DPT [address] [place], [address], [facility] 02/05/2019 11:48:02 02/06/20 19 PT Therapeutic Exercise completed PEDRO CHAVES II, PT, DPT [address] [place], [address], [facility] 02/05/2019 11:48:00 01/31/20 19 PT Therapeutic Exercise completed PEDRO CHAVES II, PT, DPT [address] [place], [address], [facility] 02/03/2019 21:33:58 01/24/20 19 PT Therapeutic Exercise completed PEDRO CHAVES II, PT, DPT [address] [place], [address], [facility] 01/23/2019 10:48:24 01/17/20 19 PT Therapeutic Exercise completed PEDRO CHAVES II, PT, DPT [address] [place], [address], [facility] 01/16/2019 08:36:06 01/09/20 19 PT Manual Therapy completed PEDRO W CHAVES II, PT, DPT [address], [address], [facility] 01/09/2019 10:18:54 01/09/20 19 PT Therapeutic Exercise completed PEDRO CHAVES II, PT, DPT [address], [address], [facility] 01/09/2019 10:18:36 01/01/20 19 PT Manual Therapy completed PEDRO CHAVES II, PT, DPT [address] [place], [address], [facility] 01/01/2019 14:17:20 01/01/20 19 PT Therapeutic Exercise completed PEDRO CHAVES II, PT, DPT [address] [place], [address], [facility] 01/01/2019 14:17:07 12/28/19 19 PT Manual Therapy completed PEDRO CHAVES II, PT, DPT [address] [place], [address], [facility] 01/03/2019 08:09:40 12/28/19 19 PT Therapeutic Exercise completed PEDRO CHAVES II, PT, DPT [address], [address], [facility] 01/03/2019 08:09:27 12/20/19 19 PT Therapeutic Exercise completed PEDRO CHAVES II, PT, DPT [address] [place], [address], [facility] 12/20/2018 11:07:47 12/06/19 19 PT Evaluation - Moderate Complexity completed PEDRO GOODWINT II, PT, DPT [address] [place], [address], [facility] 12/20/2018 07:13:15 12/06/19 19 PT Therapeutic Exercise completed PEDRO CHAVES II, PT, DPT [address] [place], [address], [facility] 12/20/2018 07:13:36 03/20/20 17 Op Note completed MYRON THORNTON MD [address] [place], [address], [facility] 03/20/2017 08:16:54 Imaging Results None recorded. Procedure Notes None recorded. Medical Equipment None Reported. Allergies Allergen ID Allergen Name Allergen Category Reaction Reaction Severity Criticality Documentation Date Start Date Code Code System Note Provider Name and Address Organization Details Recorded Time [id number] lisinopri l medicatio n cough Not available Not available 11/29/2018 [id number] RxNorm [facility] 09:54:54 Medications Name Sig Start [...] 1 tablet every day by oral route. 09/23 completed Not Available Not Available Not Available tramadol 50 mg tablet TAKE 1 [...] Not Available Not Available No t Available [place] 10 mg-325 mg tablet Take 1 tablet [...] and Address Organization Details Last Updated DateTime 09/23/2025 175.26 cm 26.7 kg/m2 39216.22 g Kae Rowe [facility] 09/23/2025 14:01:28 Social History Question Answer Notes LastModified by [employer] Details LastModified Time Tobacco Smoking Status [facility] 03/03/2017 15:28:02 Accident Related Injury Yes [email or web address] Information not available 03/03/2017 What Is Your Level Of Caffeine Consumption? Moderate [email or web address] Information not available 03/03/2017 Which Of Your Hands Is Dominant? Right [email or web address] Information not available 03/03/2017 Which Hand Is Involved? Right [email or web address] Information not available 03/03/2017 Rate The Severity Of Your Symptoms: (0-10 With 0=none And 10=worst Possible) 3 [email or web address] Information not available 02/05/2019 When Are Your Symptoms The Worst? Night Day Neither Neither Information not available 03/03/2017 Date Of Injury: 06/11/2015 [email or web address] Informati on not available 03/03/2017 Have You Been Treated For This Problem Before? Yes [email or web address] Information not available 03/03/2017 How Long Have You Had These Symptoms? 06/11/2015 [email or web address] Information not available 03/03/2017 Will This Be Filed As Workers' Compensation? Yes [email or web address] Information not available 03/03/2017 What Was The Date Of Your Most Recent Tobacco Screening? 05/13/2019 Information not available 12/31/2019 Has Tobacco Cessation Counseling Been Provided? No [email or web address] Information not available 03/03/2017 Work Related Injury? Yes Information not available 03/03/2017 Sex: Unknown Functional Status Question Answer Note LastModified by OrganizHome Inventory S[pecialists Details LastModified Time Do you use any illicit or recreational drugs? No [email or web address] Information not available 03/03/2017 What is your level of alcohol consumption? Occasional [email or web address] Information not available 03/03/2017 Are you currently employed? Yes Information not available 03/03/2017 What is your occupation? [employer] [email or web address] Information not available 03/03/2017 Mental Status None recorded. Family History Relationship Description Onset Age of this Age Resolved Age Notes LastModified by Organization Details LastModified Time Father No current problems or disability [email or web address] Not available 03/03 15:27:56 Mother No current problems or disability [email or web address] Not available 03/03 15:27:56 Medical History Condition Response Allergies/Hayfever N Gout N Anxiety/Depression N Other N Thyroid Disease N Heart Conditions N Kidney Stones N Hernia N Migraines N COPD N Glaucoma N Pneumonia N Skin Problems N Immune System Disorder N Anesthesia Complications N Heart Attack (OR) N Mental Illness N Neurological Problems N [...] ICD10 Code Diagnosis IMO Codes Diagnosis Note [id number] BETO VALENTE MD ORTHOPEDI [address] [place] [address] 09/23/2025 13:20:37 09/23/2025 14:51:34 Osteoarthritis of right knee joint [id number] M17.11 [id number] Health Concerns Section Related Observation LastModified by Organization Detai ls LastModified Time None Recorded Concern Status LastModified by Organization Details LastModified Time None Recorded Payers Encounter Date Sequence Insurance Name Policy Number Policy Gregorio Covered Member ID Gregorio Member ID Guarantor Name 09/23/2025 1 [employer] [id number] Zehra Espino [id number] Zehra Espino Notes Date Note Type Note Provider Name and Address Organization Details Recorded Time 09/23/2025 text/html WHAT: Right Knee.WHEN: about 2 months HOW: does a lot of pivoting/twisting at work SYMPTOMS: lateral knee pain, sharp stabbing pain increasing with movement, limited ROM, clicking PAIN: 5 /10X-RAY: I reviewed today's x-rays with her in detail the right knee. Severe osteoarthritis specially lateral joint collapse patellofemoral arthritis. MRI: NonePT: none NSAIDS: yes INJECTION: none asc- [id number] RT KNEE SCOPE MMThe patient is a 59-year-old female presenting with right knee pain and dysfunction. The right knee exhibits lateral joint line collapse and sclerosis, with significant discomfort during pivoting and twisting. Knee flexion is limited to 95-100 degrees, with a 5-degree extension deficit. There is mild warmth, minimal swelling, and tenderness in the medial joint line. 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 Documentation on this patient encounter was supported using voice-enabled Al technology. The patient consented to recording for the purpose of documenting the encounter. Provider reviewed content of the generated note prior to signature. BETO VALENTE MD [address] [place] [address], [phone], [facility] 10/01/2025 18:16:39 OBGyn Episode No OBEpisode recorded.
--- OUTSIDE RECORDS SUMMARY | 2025-11-04 13:41 | XMS_ITS | Clinical Summary ---
Author Organization [facility] Address [address] [place] [address] Care Team Providers Care Geothermal Operations Manager Name Role Phone Amalia Walter APRN Primary Care Provider [phone] Allergies Active Allergy Reactions Criticality Noted Date [...] Active Continuous Glucose Sensor (Dexcom G7 Sensor) [facility] USE DIRECTED 4 Active cyclobenzaprine (Flexeril) 5 [...] Description 11/21/2025 9:40 AM EST Office Visit [facility] [address] [place] [address] Kristyn Gusman, WILDLIFE ECOLOGY PROFESSOR [address] [address] 03/06/2026 8:45 AM EDT Office Visit Obstetrics & Gynecology [address] [place] [address] Pepito Rosales MD [address] [place] [address] Health Maintenance Due Date Last Done Comments [facility]-Diabetes: Hemoglobin A1C 1965 [facility]-HIV Screening 1965 [facility]-Hepatitis C Screening 1965 [facility]-Infant/Child/Adol SDOH Screenings 1965 [id number]-21 Vaccine (#1) 04/23/1965 Diabetes: Dental Exam 1974 [facility]- SDOH Screenings 1982 [facility]-Adult SDOH Screenings 1982 [facility]-DTaP,Tdap,and Td Vaccines (1 - Tdap) 1983 [facility]-Pneumococcal Vaccine: 50+ Years (1 of 2 - PCV) 1983 [facility]-Pap Smear 1985 [facility]-Cervical Cancer Screening 1994 [facility]-HPV/Cotest 1994 CT Colonography 2009 Colonoscopy 2009 FIT-DNA 2009 FIT 2009 FOBT 2009 Sigmoidoscopy 2009 [facility]-Colorectal Cancer Screening 2009 [facility]-RSV Vaccine: 60+ Years or (1 - Risk 50-74 years 1-dose series) 2014 [facility]-Influenza Vaccine (#1) 07/14/202509/29, 09/29/2021, 08/10/2020, Additional history exists [facility]-Depression Screening 02/26/2026 02/26/2025, 02/11 [facility]-Breast Cancer Screening 03/07/2027 03/07/2025 [facility]-Hepatitis A Vaccines Aged Out 019, 08/28/2018, 07/27/2018 No longer eligible based on patient's age to complete this topic [facility]-Zoster Vaccines Completed 01/12/2021, [facility]-Obesity Intervention Completed 025, 01/24/2025, 09/18/2024 HPV Vaccines (No Doses Required) Completed [facility]-HIB Vaccines Aged Out No longer e [...] PM EDT Narrative 03/07/2025 4:18 PM EDT [address] [address] Name: ZEHRA SHEPHERD Exam Date: 03/07/2025 : 1965 Age 59 years Gender: F Physician: PEPITO ROSALES Facility: [facility] Facility HSV: Outpatient Exam: TITUS SCRN [...] Thank you for referring ZEHRA SHEPHERD to [facility]. Legally authenticated by [facility] 2025-03-07 16:06:10 Procedure Note Provider, Alva Donovan - 03/07/2025 [address] [place] [address] Name: ZEHRA SHEPHERD Exam Date: 03/07/2025 : 1965 Age 59 years Gender: F Physician: PEPITO ROSALES Facility: [facility] Facility HSV: Outpatient Exam: TITUS SCRN [...] Thank you for referring ZEHRA SHEPHERD to [facility]. Legally authenticated by [facility] 2025-03-07 16:06:10 us Pepito Rosales MD IMG BI PROCEDURES Final Result from Last 3 Months or Most Recently Relevant to Health Maintenance Insurance [facility] Care Teams Geothermal Operations Manager Relationship Specialty Start Date End Date Amalia Walter APRN [address] [place] [id number] PCP - General 09/17/24
--- OUTSIDE RECORDS SUMMARY | 2025-11-04 13:41 | XMS_ITS | Encounter Summary ---
Author Organization [employer] ([place], [place], [place], [place], [place]) Address [address] [place] [address] Care Team Providers Care Town Administrator Name Role Phone Amalia Walter Primary Care Provider [phone] Encounter Details Date Type Department Care Team (Late st Contact Info) Description 01/28/2021 Transcribed Document [facility] Family Medicine [address] [place] [address] ProviderEmely MD [address] [place] [address] Social History Tobacco Use Types [...] Anesthesiologist Procedure Case Attendee Role 2 : seasonal greenery bundler Case Attendee 2 : GUILLE Zhu RN Procedure Case Attendee Role 3 : seasonal greenery bundler Case Attendee 3 : DEB DANIELS RN [...] on filedocumented in this encounter Care Teams Town Administrator Relationship Specialty Start Date End Date Amalia Walter [address] [place] [address] PCP - General 04/09/24 documented as of this encounter
--- OUTSIDE RECORDS SUMMARY | 2025-11-04 13:41 | XMS_ITS | Encounter Summary ---
Author Organization [employer] ([place], [place], [place], [place], [place]) Address [address] [place] [address] Care Team Providers Care Field Manager Name Role Phone Amalia Walter Primary Care Provider [phone] Encounter Details Date Type Department Care Team (Late st Contact Info) Description 01/28/2021 Transcribed Document [facility] Family Medicine [address] [place] [address] ProviderEmely MD [address] [place] [address] Social History Tobacco Use Types [...] 1965 Associated Diagnoses: None Author: RANDA LEACH, MERCHANDISING STOCK ASSOCIATE Chief Complaint R foot pain Review of [...] painful ROM R foot. Integumentary: Warm, Dry, [place]. Neurologic: Alert, Oriented. Psychiatric: Cooperative, Appropriate mood [...] on filedocumented in this encounter Care Teams Field Manager Relationship Specialty Start Date End Date Sarah Waltervishnuangi [address] [place] [address] PCP - General 04/09/24 documented as of this encounter
--- OUTSIDE RECORDS SUMMARY | 2025-11-04 13:41 | XMS_ITS | Data Portability ---
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 Role Phone JENNIFER MCCORD Primary Care Provider [phone] Assessment Encounter Date Assessment Date Assessment LastModified [...] plasma 2024 025 [facility] [address] [place] [address] [address], [place], [address], 08/29/2025 07:40:55 CBC w/ auto diff 2024 025 [facility] ([facility]), [address] [place] [address] [address], [place], [address], 08/29/2025 01:28:40 lipid panel, serum 2024 025 [facility] (Lab), [address] [place] [address] [address], [place], [address], 09/01/2025 13:18:13 drug screen, 14 drugs (detectim ed), urine 2024 025 [facility]), [address], [place], [address], 08/29/2025 05:06:35 vitamin D, 25-hydrox y, total, serum 2024 025 [facility] (Lab), [address], [place], [address], 09/01/2025 13:18:14 TSH + free T4, serum 2024 025 [facility] ([facility]), [address] [facility] [address], [place], [address], 09/01/2025 13:18:14 vitamin B12 + folate, serum or blood 2024 025 [facility]), [address], [place], [address], 08/29/2025 08:28:40 drug screen, urine 2024 025 [facility], [address] [facility], [place], [address], 02/25/2025 09:13:05 HbA1c (hemoglob in A1c), blood 2024 025 [facility], [address], [place], [place], [address], 02/26/2025 12:12:04 CMP, serum or plasma 2024 025 [facility], [address], [place], [place], [address], 02/26/2025 12:12:02 CBC w/ auto diff 2024 025 [facility], [address], [place], [place], [address], 02/26/2025 12:12:01 lipid panel, serum 2024 025 [facility], [address], [place], [place], [address], 02/26/2025 12:12:03 magnesium , serum or plasma 2024 025 [facility], [address], [place], [place], [address], 02/26/2025 12:12:04 cobalamin and folate panel, serum 2024 025 [facility], [address], [place], [place], [address], 02/26/2025 12:12:03 vitamin D, 25-hydrox y, total, serum 2024 025 [facility], [address], [place], [place], [address], 02/26/2025 12:12:04 Referral None recorded. Procedures None recorded. Surgeries None recorded. Imaging XR, ribs, unilatera l, w/ PA chest 2024 025 [facility] (X-Ray), [address] [place] [address] [address], [place], [address], 07/02/2025 09:03:23 XR, hip + pelvis, unilatera l, 2 or 3 view 2024 025 [facility] (X-Ray), [address], [place], [address], 06/29/2025 12:53:43 US, breast, unilatera l, complete - left breast and large hematoma just above breast 2024 025 [facility] ([facility]), [address], [place], [place], [address], 07/02/2025 10:23:30 Medication Orders diclofena c sodium 50 mg tablet,de layed release 2024 025 [facility], [address], [place], [address], 08/19/2025 17:48:19 Mounjaro 10 mg/0.5 mL subcutane ous pen injector 2024 025 [facility], [address], [place], [address], 08/19/2025 17:48:17 metformin ER 500 mg tablet,ex tended release 24 hr 2024 025 [facility], [address], [place], [address], 08/19/2025 17:48:15 Jardiance 10 mg tablet 2024 025 [facility], [address], [place], [address], 08/19/2025 17:48:19 cyclobenz aprine 5 mg tablet 2024 025 [facility], [address], [place], [address], 08/19/2025 17:48:15 losartan 25 mg tablet 2024 025 [facility], [address], [place], [address], 08/19/2025 17:48:14 bisoprolo l fumarate 5 mg tablet 2024 025 [place] [address] [facility], [address], [place], [address], 08/19/2025 17:48:17 rosuvasta tin 10 mg tablet 2024 025 [place] [address] - [facility], [address], [place], [address], 08/19/2025 17:48:17 clopidogr el 75 mg tablet 2024 025 [facility] [address] [place] [address] RX, [address], [place], [address], 08/19/2025 17:48:19 gabapenti n 400 mg capsule [address] RX, [address], [place], [address], 08/19/2025 17:48:26 Jardiance 10 mg tablet 2024 025 [facility] [address] [place] [address] RX, [address], [place], [address], 05/27/2025 16:43:55 metformin ER 500 mg tablet,ex tended release 24 hr [address] RX, [address], [place], [address], 05/27/2025 16:43:56 gabapenti n 400 mg capsule 2024 025 [place] [address] - [facility], [address], [place], [address], 05/27/2025 16:43:56 neomycin- polymyxin -hydrocor t 3.5 mg-10,000 unit/mL-1 % ear drops,audrey p 2024 025 [place] [address] - [facility], [address], [place], [address], 05/27/2025 16:21:45 aspirin 81 mg tablet,de layed release 2024 025 [place] [address] - [facility], [address] [facility], [place], [address], 02/25/2025 08:51:41 Jardiance 10 mg tablet 2024 025 [place] [address] - [facility], [address] [place] [address], [place], [address], 02/25/2025 08:51:28 metformin ER 500 mg tablet,ex tended release 24 hr 2024 025 [place] [address] - [facility], [address] [facility] [address], [address], 02/25/2025 08:51:25 Mounjaro 2.5 mg/0.5 mL subcutane ous pen injector 2024 025 [place] [address] - [facility], [address], [place], [address], 05/27/2025 16:17:24 cyclobenz aprine 5 mg tablet 2024 025 [facility] 72 - [facility], [address], [place], [address], 02/25/2025 08:51:31 losartan 25 mg tablet 2024 025 [place] [address] - [facility], [address], [place], [address], 02/25/2025 08:51:27 bisoprolo l fumarate 5 mg tablet 2024 025 [place] [address] - [facility], [address], [place], [address], 02/25/2025 08:51:33 rosuvasta tin 10 mg tablet 2024 025 [place] [address] - [facility], [address], [place], [address], 02/25/2025 08:51:41 clopidogr el 75 mg tablet 2024 025 [place] [address] - [facility], [address], [place], [address], 07/08/2025 14:53:19 diclofena c sodium 50 mg tablet,de layed release 2024 025 [place] [address] - [facility], [address], [place], [address], 02/25/2025 08:51:34 valacyclo vir 500 mg tablet 2024 025 [place] [address] - [facility], [address] [place] [address], [address], 02/25/2025 08:51:36 fluticaso ne propionat e 50 mcg/actua tion nasal spray,audrey pension 2024 025 [facility], [address], [place], [address], 02/25/2025 08:51:39 gabapenti n 400 mg capsule 2024 025 [facility], [address], [place], [address], 02/25/2025 08:51:41 Patient TargetsNo targets recorded. Patient InstructionsNo instructions recorded. Reason for Referral None Reported. Results Created Date Observation Date Name Description Value Unit Range Abnormal Flag Note LastModifiedBy Organization Detail LastModifiedTime 02/26/2002/26/2025 CBC WITH DIFFE RENTI AL/PL ATELE T WBC 5.5 x10e3 /uL 3.4-10 .8 normal Not Available [facility] ([facility]) [address] [place], [address], 02/26/2025 12:12:01 02/26/2002/26/2025 CBC WITH DIFFE RENTI AL/PL ATELE T RBC 3.87 x10e6 /uL 3.77-5 .28 normal Not Available [facility] ([facility]) [address] [place], [address], 02/26/2025 12:12:01 02/26/2002/26/2025 CBC WITH DIFFE RENTI AL/PL ATELE T hemoglobin 12.5 g/dL 11.1-1 5.9 normal Not Available [facility] ([facility]) [address] [place], [address], 02/26/2025 12:12:01 02/26/2002/26/2025 CBC WITH DIFFE RENTI AL/PL ATELE T hematocrit 37.4 % 34.0-4 6.6 normal Not Available [facility] ([facility]) [address] [place], [address], 02/26/2025 12:12:01 02/26/20 25 02/26/2025 CBC WITH DIFFE RENTI AL/PL ATELE T MCV 97 fL 79-97 normal Not Available [facility] ([facility]) [address] [place], [address], 02/26/2025 12:12:01 02/26/2002/26/2025 CBC WITH DIFFE RENTI AL/PL ATELE T MCH 32.3 pg 26.6-3 3.0 normal Not Available [facility] ([facility]) [address] [place], [address], 02/26/2025 12:12:01 02/26/20 25 02/26/2025 CBC WITH DIFFE RENTI AL/PL ATELE T MCHC 33.4 g/dL 31.5-3 5.7 normal Not Available [facility] ([facility]) [address] [place], [address], 02/26/2025 12:12:01 02/26/20 25 02/26/2025 CBC WITH DIFFE RENTI AL/PL ATELE T RDW 12.5 % 11.7-1 5.4 Not Available [facility] ([facility]) [address] [place], [address], 02/26/2025 12:12:01 02/26/20 25 02/26/2025 CBC WITH DIFFE RENTI AL/PL ATELE T platelets 204 x10e3 /uL 150-45 0 normal Not Available [facility] ([facility]) [address] [place], [address], 02/26/2025 12:12:01 02/26/20 25 02/26/2025 CBC WITH DIFFE RENTI AL/PL ATELE T neutrophils 75 % not estab. normal Not Available [facility] ([facility]) [address] [facility], [place], [address], 02/26/2025 12:12:01 02/26/20 25 02/26/2025 CBC WITH DIFFE RENTI AL/PL ATELE T lymphs 17 % not estab. normal Not Available [facility] ([facility]) [address] [facility], [place], [address], 02/26/2025 12:12:01 02/26/20 25 02/26/2025 CBC WITH DIFFE RENTI AL/PL ATELE T monocytes 6 % not estab. normal Not Available [facility] ([facility]) [address] [facility], [place], [address], 02/26/2025 12:12:01 02/26/20 25 02/26/2025 CBC WITH DIFFE RENTI AL/PL ATELE T eos 2 % not estab. normal Not Available [facility] ([facility]) [address] [facility], [place], [address], 02/26/2025 12:12:02/26/20 25 02/26/2025 CBC WITH DIFFE RENTI AL/PL ATELE T basos 0 % not estab. normal Not Available [facility] ([facility]) [address] [facility], [place], [address], 02/26/2025 12:12:01 02/26/20 25 02/26/2025 CBC WITH DIFFE RENTI AL/PL ATELE T immature cells BPO SPECIALIST Not Available [facility] ([facility]) [address] [place], [address], 02/26/2025 12:12:01 02/26/20 25 02/26/2025 CBC WITH DIFFE RENTI AL/PL ATELE T neutrophils (absolute) 4.1 x10e3 /uL 1.4-7. 0 normal Not Available [facility] ([facility]) [address] [facility], [place], [address], 02/26/2025 12:12:01 02/26/20 25 02/26/2025 CBC WITH DIFFE RENTI AL/PL ATELE T lymphs (absolute) 1.0 x10e3 /uL 0.7-3. 1 normal Not Available [facility] ([facility]) [address] [facility], [place], [address], 02/26/2025 12:12:01 02/26/20 25 02/26/2025 CBC WITH DIFFE RENTI AL/PL ATELE T monocytes(ab solute) 0.3 x10e3 /uL 0.1-0. 9 normal Not Available [facility] ([facility]) [address] [facility], [place], [address], 02/26/2025 12:12:01 02/26/20 25 02/26/2025 CBC WITH DIFFE RENTI AL/PL ATELE T eos (absolute) 0.1 x10e3 /uL 0.0-0. 4 normal Not Available [facility] ([facility]) [address] [facility], [place], [address], 02/26/2025 12:12:01 02/26/20 25 02/26/2025 CBC WITH DIFFE RENTI AL/PL ATELE T baso (absolute) 0.0 x10e3 /uL 0.0-0. 2 normal Not Available [facility] ([facility]) [address] [facility], [place], [address], 02/26/2025 12:12:01 02/26/20 25 02/26/2025 CBC WITH DIFFE RENTI AL/PL ATELE T immature granulocytes 0 % not estab. Not Available [facility] ([facility]) [address] [facility], [place], [address], 02/26/2025 12:12:01 02/26/20 25 02/26/2025 CBC WITH DIFFE RENTI AL/PL ATELE T immature grans (abs) 0.0 x10e3 /uL 0.0-0. 1 Not Available [facility] ([facility]) [address] [facility], [place], [address], 02/26/2025 12:12:01 02/26/20 25 02/26/2025 CBC WITH DIFFE RENTI AL/PL ATELE T NRBC BPO SPECIALIST Not Available [facility] ([facility]) [address] [facility], [place], [address], 02/26/2025 12:12:01 02/26/20 25 02/26/2025 CBC WITH DIFFE RENTI AL/PL ATELE T hematology comments: BPO SPECIALIST Not Available [facility] ([facility]) [address] [facility], [place], [address], 02/26/2025 12:12:01 02/26/20 25 02/26/2025 COMP. METAB OLIC PANEL (14) glucose 153 mg/dL 70-99 above high normal Not Available [facility] ([facility]) [address] [facility], [place], [address], 02/26/2025 12:12:02 02/26/20 25 02/26/2025 COMP. METAB OLIC PANEL (14) BUN 24 mg/dL 8-27 normal Not Available [facility] ([facility]) [address] [place], [address], 02/26/2025 12:12:02 02/26/20 25 02/26/2025 COMP. METAB OLIC PANEL (14) creatinine 0.89 mg/dL 0.57-1 .00 normal Not Available [facility] ([facility]) [address] [place], [address], 02/26/2025 12:12:02 02/26/20 25 02/26/2025 COMP. METAB OLIC PANEL (14) eGFR 74 mL/mi n/1.7 3 >59 normal Not Available [facility] ([facility]) [address] [facility] [place], [address], 02/26/2025 12:12:02 02/26/20 25 02/26/2025 COMP. METAB OLIC PANEL (14) BUN/creatini ne ratio 27 12-28 normal Not Available [facility] ([facility]) [address] [facility] [place], [address], 02/26/2025 12:12:02 02/26/20 25 02/26/2025 COMP. METAB OLIC PANEL (14) sodium 141 mmol/ L 134-14 4 normal Not Available [facility] ([facility]) [address] [facility] [place], [address], 02/26/2025 12:12:02 02/26/20 25 02/26/2025 COMP. METAB OLIC PANEL (14) potassium 5.5 mmol/ L 3.5-5. 2 above high normal Not Available [facility] ([facility]) [address] [facility], [place], [address], 02/26/2025 12:12:02 02/26/20 25 02/26/2025 COMP. METAB OLIC PANEL (14) chloride 104 mmol/ L 96-106 normal Not Available [facility] ([facility]) [address] [facility] [place], [address], 02/26/2025 12:12:02 02/26/20 25 02/26/2025 COMP. METAB OLIC PANEL (14) carbon dioxide, total 23 mmol/ L 20-29 normal Not Available [facility] ([facility]) [address] [facility] [place], [address], 02/26/2025 12:12:02 02/26/20 25 02/26/2025 COMP. METAB OLIC PANEL (14) calcium 10.1 mg/dL 8.7-10 .3 normal Not Available [facility] ([facility]) [address] [place], [address], 02/26/2025 12:12:02 02/26/20 25 02/26/2025 COMP. METAB OLIC PANEL (14) protein, total 6.4 g/dL 6.0-8. 5 normal Not Available [facility] ([facility]) [address] [facility] [address] [place], [place], [address], 02/26/2025 12:12:02 02/26/20 25 02/26/2025 COMP. METAB OLIC PANEL (14) albumin 4.7 g/dL 3.8-4. 9 normal Not Available [facility] ([facility]) [address] [facility] [place], [address], 02/26/2025 12:12:02 02/26/20 25 02/26/2025 COMP. METAB OLIC PANEL (14) globulin, total 1.7 g/dL 1.5-4. 5 Not Available [facility] ([facility]) [address], [place], [address], 02/26/2025 12:12:02 02/26/20 25 02/26/2025 COMP. METAB OLIC PANEL (14) bilirubin, total 0.2 mg/dL 0.0-1. 2 normal Not Available [facility] ([facility]) [address] [facility], [place], [address], 02/26/2025 12:12:02 02/26/20 25 02/26/2025 COMP. METAB OLIC PANEL (14) alkaline phosphatase 93 IU/L 44-121 normal Not Available [facility] ([facility]) [address], [place], [address], 02/26/2025 12:12:02 02/26/20 25 02/26/2025 COMP. METAB OLIC PANEL (14) AST (SGOT) 43 IU/L 0-40 above high normal Not Available [facility] ([facility]) [address] [facility], [place], [address], 02/26/2025 12:12:02 04/15/20 25 02/26/2025 COMP. METAB OLIC PANEL (14) ALT (SGPT) 57 IU/L 0-32 above high normal Not Available [facility] ([facility]) [address] [facility], [place], [address], 02/26/2025 12:12:02 02/26/20 25 02/26/2025 LIPID PANEL cholesterol, total 131 mg/dL 100-19 9 normal Not Available [facility] ([facility]) [address] [place], [address], 02/26/2025 12:12:02 02/26/20 25 02/26/2025 LIPID PANEL triglyceride s 117 mg/dL 0-149 normal Not Available [facility] ([facility]) [address] [place], [address], 02/26/2025 12:12:02 02/26/20 25 02/26/2025 LIPID PANEL HDL cholesterol 45 mg/dL >39 normal Not Available [facility] ([facility]) [address] [place], [address], 02/26/2025 12:12:02 02/26/20 25 02/26/2025 LIPID PANEL VLDL cholesterol ugo 21 mg/dL 5-40 Not Available [facility] ([facility]) [address] [place], [address], 02/26/2025 12:12:02 02/26/20 25 02/26/2025 LIPID PANEL LDL chol calc ([facility]) 65 mg/dL 0-99 Not Available [facility] ([facility]) [address] [place], [address], 02/26/2025 12:12:02 02/26/20 25 02/26/2025 LIPID PANEL LDL calc comment: BPO SPECIALIST Not Available [facility] ([facility]) [address] [place], [address], 02/26/2025 12:12:02 02/26/20 25 02/26/2025 VITAM IN B12 AND FOLAT E vitamin B12 1146 pg/mL 232-12 45 normal Not Available [facility] ([facility]) [address] [facility], [place], [address], 02/26/2025 12:12:03 02/26/2002/26/2025 VITAM IN B12 AND FOLAT E folate (folic acid), serum >20.0 NG/mL >3.0 A serum folat e matt ntrat ion of less than 3.1 ng/mL is consi dered to repre sent clini ugo defic iency . Not Available [facility] ([facility]) [address] [facility], [place], [address], 02/26/2025 12:12:03 02/26/2002/26/2025 HEMOG LOBIN A1C hemoglobin A1C 7.0 % 4.8-5. 6 above high normal Predi abete s: 5.7 - 6.4 Diabe mello: >6.4 Glyce mary contr ol for adult s with diabe mello: <7.0 Not Available [facility] ([facility]) [address] [facility], [place], [address], 02/26/2025 12:12:04 02/26/2002/26/2025 VITAM IN D, 25-HY [...] :1911 -30. Not Available [facility] ([facility]) [address] [facility], [place], [address], 02/26/2025 12:12:04 02/26/20 25 02/26/2025 MAGNE SIUM magnesium 2.7 mg/dL 1.6-2. 3 above high normal Not Available [facility] ([facility]) [address] [facility], [place], [address], 02/26/2025 12:12:04 02/26/20 25 02/25/2025 drug scree n, urine THC negati ve Not Available [address], [address], 02/25/2025 08:48:18 02/26/20 25 02/25/2025 drug scree n, urine TCA negati ve Not Available [address], [address], 02/25/2025 08:48:18 02/26/20 25 02/25/2025 drug scree n, urine BAR negati ve Not Available [address], [address], 02/25/2025 08:48:18 02/26/20 25 02/25/2025 drug scree n, urine BZO negati ve Not Available [address], [address], 02/25/2025 08:48:18 02/26/20 25 02/25/2025 drug scree n, urine MTD negati ve Not Available [address], [address], 02/25/2025 08:48:18 02/26/20 25 02/25/2025 drug scree n, urine AMP negati ve Not Available [address], [address], 02/25/2025 08:48:18 02/26/20 25 02/25/2025 drug scree n, urine MOP negati ve Not Available [address], [address], 02/25/2025 08:48:18 02/26/20 25 02/25/2025 drug scree n, urine OXY negati ve Not Available [address], [address], 02/25/2025 08:48:18 02/26/20 25 02/25/2025 drug scree n, urine MDMA negati ve Not Available [address], [address], 02/25/2025 08:48:18 02/26/2002/25/2025 drug scree n, urine PATRICIO negati ve Not Available [address], [address], 02/25/2025 08:48:18 02/26/20 25 02/25/2025 drug scree n, urine PCP negati ve Not Available [address], [address], 02/25/2025 08:48:18 02/26/20 25 02/25/2025 drug scree n, urine MET negati ve Not Available [address], [place], [place], [address], 02/25/2025 08:48:18 03/10/20 25 03/10/2025 XR, foot, 3 or more view No observ [facility] [address], [address], 03/11/2025 08:08:33 03/25/20 25 03/25/2025 CT, foot, w/o contr ast No observ ation record ed. [place] [id number], [address], 03/25/2025 13:49:22 03/25/20 25 03/25/2025 ankle brach ial index No observ ation record ed. [place] [id number] [place], [address], 03/25/2025 17:51:20 03/26/20 25 03/26/2025 elect antoinette xiegr am No observ ation record ed. [place] [id number], [address], 03/27/2025 08:18:25 03/26/20 25 03/26/2025 XR, foot, 3 or more view No observ ation record ed. [place] [id number], [address], 03/27/2025 08:43:06 05/20/20 25 05/20/2025 XR, foot, 3 or more view No observ ation record ed. [place] [id number], [address], 05/23/2025 08:22:56 06/29/20 25 06/27/2025 XR, hip + pelvi s, unila teral , 2 or 3 view No observ ation record ed. [facility] [address], [place], [address], 07/02/2025 10:33:31 06/29/20 25 06/27/2025 XR, ribs, unila teral , w/ PA chest No observ ation record ed. [facility] (X-Ray) [address], [place], [address], 07/02/2025 10:33:42 07/02/20 25 06/27/2025 US, breas t, unila teral , compl ete No observ ation record ed. [facility] [address], [place], [address], 07/04/2025 11:56:53 09/09/20 25 09/09/2025 cardi ac stres s test No observ ation record ed. [facility] [address], [place], [place], [address], 09/09/2025 15:13:28 09/10/2009/09/2025 cardi ac stres s test No observ ation record ed. [facility] [address], [place], [address], 09/11/2025 10:05:27 09/14/20 25 09/09/2025 US, doppl er echoc ardio gram No observ ation record ed. [facility] [address], [place], [address], 09/15/2025 08:19:49 Result Notes None recorded. Problems Name Problem SNOMED Code Status Onset Date Resolution Date Notes Provider Name and Address Organization Details Recorded Time Diabetes mellitus 71124495 Active Not Available [facility] 03:20:06 Neuropathy 220687304 Active 2021 Not Available [facility] 3 03:20:05 Arthritis 7406662 Active 2022 Not Available [facility] 3 03:20:05 Basal cell carcinoma of skin 163752283 Active 2022 Sarahkat Mccord APRN [address], [place], [address] , [place] - [facility] 3 10:22:52 Coronary arteriosclero sis 32099627 Active 2024 Sarahkat Mccord APRN [address], [place], [address] , [place] - [facility] 5 08:50:23 Problem Notes None recorded. Procedures Surgical History Date Name Laterality Status Provider Name and Address Organization Details Recorded Time 04/14/20 25 Medication Reconcilliation completed Zenaida Rae [place] - [facility] 04/14/2025 09:55:25 03/26/20 25 amputation of toe completed Zenaida Rae [place] - [facility] 04/14/2025 10:07:57 06/18/20 24 EXCISION OF CYST (SURG) completed Jennifer Mccord APRN [address], [place], [address], [place] [facility] 06/20/2024 08:09:44 05/23/20 24 EXCISION OF CYST (SURG) completed Jennifer Mccord APRN [address], [place], [address], [place] [facility] 05/24/2024 08:41:37 03/16/20 24 EXCISION OF CYST (SURG) completed Jennifer Mccord APRN [address], [place], [address], [place] [facility] 04/16/2024 15:15:10 02/13/20 22 [...] Name and Address Organization Details Recorded Time [id number] lisinopri l medicatio n Not available Not available Not available 10/01/2025 30167 RxNorm unrec ogniz ed react ion (text : Adver se react ion to subst ance, code: 15313 0009) (from exter nal sourc e) Not Available [employer] - External Data Service - prod 5 09:23:12 [id number] latex environme nt,medica tion rash Not available low 10/01/20252018 28418 91 RxNorm Not Available [facility] - External Data Service - prod 5 09:25:44 324107 Latex (substanc e) environme nt,medica tion rash Not available low 10/01/20252018 15212 8007 SNOMED Not Available [employer] External Data Service - prod 5 09:27:21 [...] 10 DAYS -- FINISH ALL MEDICINE -- 10/07 /2025 completed Not Available Not Available Not Available [...] numeric rating [Score] - Reported Oxygen saturation Heart rate Body temperature Respiratory rate Systolic And Diastolic Provider Name and Address Organization Details Last Updated DateTime 5 175.26 cm 28.2 kg/m2 79581.1 4 g 0 98 % 84 /min 98.1 [degF] 16 /min 112/68 mm[Hg] Sara Chacko [place] - [facility] 5 08:17:43 Date Recorded Body height Body temperature Respiratory rate Heart rate Oxygen saturation Systolic And Diastolic Provider Name and Address Organization Details Last Updated DateTime 5 175.26 cm 98 [degF] 18 /min 78 /min 100 % 118/76 mm[Hg] Zenaida Rae [place] - [facility] 5 10:05:20 Date Recorded Body height Body mass index (BMI) Body weight Oxygen saturation Respiratory rate Pain severity - 0-10 verbal numeric rating [Score] - Reported Heart rate Systolic And Diastolic Provider Name and Address Organization Details Last Updated DateTime 5 175.26 cm 27.8 kg/m2 84846.3 7 g 98 % 18 /min 0 79 /min 118/78 mm[Hg] Sara Chacko [place] - [facility] 5 16:25:53 Date Recorded Body height Body mass index (BMI) Body weight Heart rate Oxygen saturation Body temperature Respiratory rate Pain severity - 0-10 verbal numeric rating [Score] - Reported Systolic And Diastolic Provider Name and Address Organization Details Last Updated DateTime 5 175.26 cm 27.6 kg/m2 11327.7 7 g 78 /min 97 % 98 [degF] 18 /min 0 122/76 mm[Hg] Sara Chacko [place] - [facility] 5 16:39:30 Date Recorded Body height Respiratory rate Body mass index (BMI) Body weight Heart rate Oxygen saturation Body temperature Systolic And Diastolic Provider Name and Address Organization Details Last Updated DateTime 5 175.26 cm 18 /min 26.9 kg/m2 99972.8 1 g 76 /min 94 % 98 [degF] 126/78 mm[Hg] Zenaida Butch [place] - [facility] 5 17:05:51 Social History Question [...] Or The Highest Degree You Have Received? [id number] Information not available 06/17/2022 When Did You Quit Smoking? 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 EB1566-7 Information not available 06/17/2022 Do you have [...] Details Recorded Time Pneumococcal conjugate PCV20, polysaccharide DEI380 conjugate, adjuvant, PF 025 cancelled patient objection Jennifer Mccord, TECHNOLOGY EDUCATION TEACHER [address], [place], [address], [place] - [facility] 08/19/2025 17:51:05 Tdap 025 cancelled patient objection Sarahvishnuangi Chesterwil, TECHNOLOGY EDUCATION TEACHER [address], [place], [address], [facility] - [facility] 08/19/2025 17:51:05 zoster recombinant 020 completed Not Available [facility] 05/09/2023 03:20:06 zoster recombinant 021 completed Not Available [facility] 05/09/2023 03:20:06 Influenza, split virus, quadrivalent, preservative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
--- OUTSIDE RECORDS SUMMARY | 2025-11-04 13:42 | XMS_ITS | Encounter Summary ---
Author Organization Healthcare Address [address] [place] [address] Care Team Providers Care Dental Technologist Name Role Phone Amalia Walter INFORMATION SECURITY ANALYST Primary Care Provider [phone] Encounter Details Date Type Department Care Team (Late Contact Info) Description 03/07/2025 Outside Procedure External Location [address] [place] [address] Pepito Rosales MD [address] [place] [address] Social History Tobacco Use Types [...] Description 11/21/2025 9:40 AM EST Office Visit [facility] [address] [place] [address] Kristyn Gusman, INFORMATION SECURITY ANALYST [address] [address] 03/06/2026 8:45 AM EDT Office Visit Obstetrics & Gynecology [address] [place] [address] Peipto Rosales MD [address] [place] [address] documented as of this encounter Procedures Procedure Name Priority Date/Time Associated Diagnosis Comments MAMMOGRAPHY BREAST SCREENING TOMOSYNTHESIS BILATERAL 03/07/2025 3:49 PM EDT documented in this encounter Results * Mammography Breast Screening Tomosynthesis Bilateral (03/07/2025 3:49 PM EDT) Anatomical Region Laterality Modality Breast Bilateral Mammography 03/07/2025 3:49 PM EDT Narrative 03/07/2025 4:18 PM EDT [facility] [address] [place] [address] Name: ZEHRA SHEPHERD Exam Date: 03/07/2025 : 1965 Age 59 years Gender: F Physician: PEPITO ROSALES Facility: [facility] Facility HSV: Outpatient Exam: TITUS SCRN [...] Thank you for referring ZEHRA SHEPHERD to [facility]. Legally authenticated by [facility] 2025-03-07 16:06:10 Procedure Note Provider, [facility] - 03/07/2025 [place] [address] Name: ZEHRA SHEPHERD Exam Date: 03/07/2025 : 1965 Age 59 years Gender: F Physician: PEPITO ROSALES Facility: [facility] Facility HSV: Outpatient Exam: TITUS SCRN [...] Thank you for referring ZEHRA SHEPHERD to [facility]. Legally authenticated by [facility] 2025-03-07 [...] documented as of this encounter Care Teams Dental Technologist Relationship Specialty Start Date End Date Amalia Walter APRN [address] [place], [place] [id number] PCP - General 09/17/24 documented as of this encounter
--- OUTSIDE RECORDS SUMMARY | 2025-11-04 13:42 | XMS_ITS | Encounter Summary ---
Author Organization [facility] Address [address] [place] [address] Phone [email or web address] Care Team Providers Care Exhaust Machine Operator Name Role Phone No, Provider Primary Care Provider Unavailabl e Encounter Details Date Type Department Care Team (Late st Contact Info) Description 09/18/2018 Ancillary Orders [address] [place] [address] Qing Godoy PA [address] [place] [address] Acute pain of right shoulder [...] shoulder documented in this encounter Care Teams Exhaust Machine Operator Relationship Specialty Start Date End Date No, Provider VICTOR MANUEL Nixon PCP - General Family Medicine 09/23/19 documented as of this encounter
--- OUTSIDE RECORDS SUMMARY | 2025-11-04 13:42 | XMS_ITS | Data Portability ---
Author Organization [facility] NADIA StevensS GUAYNABO CLOSED Address [address] [place] [address] Care Team Providers Care Sorter/Assay Tech Name Role Phone RAMANDEEP SMITH Primary Care Provider BETO VALENTE Orthopedic Surgeon CHAITANYA PARK Renal Medicine Specialist [phone] Assessment No assessment recorded. Plan of Treatment Reminders Order Date Submit Date Provider Last Modified By Organization Details Last Modified Time Details Appointments RECHEC K 2025 08:20A M EMMANUELLE FENTON MD Not available Not available Not available Lab None record ed. Referral None record ed. Procedures None record ed. Surgeries None record ed. Imaging XR, knee, 3 view 2023 024 JACKSON Not available 07/22/2024 09:23:26 Medication Orders Medrol (Duglas) 4 mg tablet s in a dose pack 2023 024 [facility] - [facility] [facility] [employer] [facility], [address] [place] [address], [place], [address], 06/26/2024 09:19:12 Patient TargetsNo targets recorded. Patient Instructions Encounter Date Encounter Id Patient Instructions Last Modified By Organization Details Last Modified Time 09/23/2025 [id number] We reviewed her scope and images and [...] aorta replacement. She is still working at [employer] standing all day long. 1. Right knee [...] Abnormal Flag Note LastModifiedBy Organization Detail LastModifiedTime 05/08/2005/08/2024 XR, knee, 3 view [place] [facility] [address] [place] [address] Romeo t Name: ZEHRA ESPINO Mariettamirta kumar : 1964 Patien t Orderi ng Provid er: ANUJ KIRAN EXAM DATE: 2023 EXAM: XR LT KNEE 3 VIEWS COMPAR JOSÉ: 11/21/19 24 HISTOR Y: Follow -up of prior surger ivory MCELROY GS: There has been interv al [...] By: Trey mar MD on 10:[address] [facility] [address] , [place], [address], 05/08/2024 11:15:38 05/29/20 24 05/29/2024 XR, knee, 3 view [facility] [address] [place] [address] Patien t Name: ZEHRA kumar : 1964 Patien t Orderi ng Provid er: ANUJ KIRAN EXAM [...] By: Trey mar MD on 9:[address] [facility] [address] , [place], [address], 05/29/2024 10:05:59 06/26/20 24 06/26/2024 XR, joint , multi ple, 1 view [facility] [address] [place] [address] Patien t Name: ZEHRA kumar : 1964 Patien t Orderi ng Provid er: ANUJ KIRAN EXAM [...] ly Signed By: Trey mar MD on 024 8:[address] [facility] [address], [place], [address], 06/26/2024 09:02:34 07/22/20 24 07/22/2024 XR, knee, 3 view [facility] [address] [facility] [place] [address] Patien t Name: ZEHRA ESPINO Patien t : 1964 Patien t Orderi ng Provid er: ANUJ KIRAN EXAM DATE: 2023 EXAM: XR LT KNEE 3 VIEWS COMPAR JOSÉ: 024 HISTOR Y: Follow -up of prior surger ivory MCELROY GS: Again seen is a left [...] mar MD on 07/22/20 24 9:[address] Rad[facility] [place] [address] , [place], [address], 07/22/2024 10:07:23 09/24/20 25 09/23/2025 XR, knee, 4 or more view [facility] [address] [place] [address] Patien t Name: ZEHRA kumar : 1964 Patimirta t Orderi ng Provid er: BETO VALENTE [...] in the right knee. Interp reted By: Pdero Adler MD Electr onical ly Signed By: Pedro Adler MD on 2024 2:19 PM [facility] [address] [place], [address], 09/25/2025 13:20:30 Result Notes Documentation Provider Name and Address Organization Details Recorded Time Xr, Knee, 3 View : [facility] [place] [address] [place] [address] Patient Name: ZEHRA ESPINO Patient : 1965 [...] By: Olvin Singh MD KIRAN PA-C [address] [place], [address], [facility] 05/08/2024 11:15:38 Xr, Knee, 3 [facility] [address] [place] [address] Patient Name: ZEHRA ESPINO Patient : 1965 [...] By: Olvin Singh MD KIRAN PA-C [address] [place], [address], [facility] 05/29/2024 10:05:59 Xr, Joint, Multiple, 1 [facility] : [facility] [address] [place] [address] Patient Name: ZEHRA ESPINO Patient : 1965 [...] valgus angulation. Interpreted By: Olvin Singh MD ON [place] [address] [place], [address], [facility] 06/26/2024 09:02:34 Xr, Knee, 3 [facility] : [facility] [address] [place] [address] Patient Name: ZEHRA ESPINO Patient : 1965 [...] By: Olvin Singh MD KIRAN PA-C [address] [place], [address], [facility] 07/22/2024 10:07:23 Xr, Knee, 4 Or More View : [facility] [address] [place] [address] Patient Name: ZEHRA ESPINO Patient : 1965 Patient Ordering Provider: BETO [...] Interpreted By: Pedro Adler MD VALENTE MD [facility] [place], [address], [facility] 09/25/2025 13:20:30 Problems Name Problem SNOMED Code Status Onset Date Resolution Date Notes Provider Name and Address Organization Details Recorded Time Radial styloid tenosynov itis 09151273 Active 2014 From Automated Load;Prov ider: Myron Thornton;S tatus: Active Not Available [facility] 6 08:50:20 Idiopathi c osteoarth ritis 780071583 Active 2014 From Automated Load;Prov ider: Myron Thornton;S tatus: Active Not Available [facility] 6 08:50:20 Skin sensation disturban ce 64834433 Active 2014 From Automated Load;Prov ider: Myron Thornton;S tatus: Active Not Available [facility] 6 08:50:20 Finding of sensation of skin Active 2014 From Automated Load;Prov ider: Myron Thornton;S tatus: Active Not Available [facility] 6 08:50:20 Snapping thumb syndrome 77330021 Active 2014 From Automated Load;Prov ider: Myron Thornton;S tatus: Active Not Available [facility] 6 08:50:20 Injury of tendon of the rotator cuff of shoulder 725550195 Active 2018 PEDRO CHAVES II, PT, DPT [address] [place], [address] , [facility] 9 07:20:38 Muscle weakness 20180783 Active 2018 PEDRO CHAVES II, PT, DPT [address] [place], [address] , [facility] 9 07:20:39 Spasm 38790954 Active 2018 PEDRO CHAVES II, PT, DPT [address] [place], [address] , [facility] 9 07:20:40 Muscular incoordin ation 09597222 Active 2018 PEDRO CHAVES II, PT, DPT [address] [place], [address] , [facility] 9 07:20:41 History of operative procedure on shoulder 754958941 Active 2018 PEDRO CHAVES II, PT, DPT [address] [place], [address] , [facility] 9 11:27:20 Biceps tendiniti s 602562650 Active 2018 PEDRO CHAVES II, PT, DPT [address] [place] [address], [address] , [facility] 9 11:27:20 History of arthrosco py of knee joint 814141256 Active 2018 Gigi caal [facility] 9 16:25:08 Abnormal gait 18499630 Active 2018 Gigi caal [facility] 9 16:25:22 Coronary arteriosc lerosis 83277396 Active 2023 EMMANUELLE Andrew MD [address] [place] [address], [address] , [facility] 4 17:48:09 History of percutane ous coronary intervent ion 756581655 Active 2023 EMMANUELLE Andrew MD [address] [place], [place] [address] , [facility] 4 17:48:10 Type 2 diabetes mellitus without complicat ion 640049850 Active 2023 EMMANUELLE Andrew MD [address] [place] [address], [address] , [facility] 4 17:48:11 Osteoarth ritis of left knee joint 55567142840 9109 Active 2023 EMMANUELLE Andrew MD [address] [place] [address], [address] , [facility] 4 17:48:13 Problem Notes None recorded. Procedures Surgical History Date Name Laterality Status Provider Name and Address Organization Details Recorded Time 09/23/20 25 Injection - Joint/Bursa, Marco Antonio completed BETO VALENTE MD [address] [place] [address], [address], [facility] 09/23/2025 14:33:54 09/23/20 25 Aspiration Joint/Bursa, Marco Antonio VALENTE MD [address] [place] [address], [address], [facility] 10/01/2025 18:15:03 04/17/20 24 Total knee arthroplasty completed Mekhi Weathers [facility] 05/29/2024 09:32:34 04/11/20 24 PCM Visit completed Mekhi Weathers [facility] 04/11/2024 14:50:11 11/21/19 24 Injection - Joint/Bursa, Major completed Holly Umanzor [facility] 11/21/2023 08:46:28 05/22/20 23 Injection - Joint/Bursa, Major completed Jerod Del Castillo [facility] 06/23/2023 07:49:10 05/22/20 23 Injection - Joint/Bursa, Second, Major completed Rosalind Ferreira [facility] 05/22/2023 17:27:54 08/16/20 22 Injection - Trigger Finger, Ortho completed MYRON THORNTON MD [facility] [place], [address], [facility] 08/16/2022 09:40:25 04/20/20 22 Trigger Finger Release - Oneill completed MYRON THORNTON MD [address] [place], [address], [facility] 04/20/2022 08:01:04 02/26/20 22 Injection - Trigger Finger, Ortho completed MYRON THORNTON MD [address] [place], [address], [facility] 02/25/2022 10:45:00 12/20/19 22 Injection - Joint/Bursa, Major completed BETO VALENTE MD [address] [place], [address], [facility] 01/02/2022 17:35:18 09/02/20 21 Suture/Staple removal completed TY VARGAS PA-C [address] [place], [address], [facility] 09/03/2021 08:52:33 08/27/20 21 Orthopedic Surgery completed Florencio Christie [facility] 09/02/2021 08:56:23 05/24/20 21 Injection - Joint/Bursa, Major completed BETO VALENTE MD [address] [place], [address], [facility] 06/13/2021 22:49:50 05/18/20 21 Injection - Joint/Bursa, Major completed BETO VALENTE MD [address] [place], [address], [facility] 05/18/2021 22:13:50 07/13/20 20 Injection - Joint/Bursa, Major completed BETO VALENTE MD [address] [place], [address], [facility] 07/13/2020 10:17:56 01/27/20 20 Injection - Joint/Bursa, Major completed Kristine Claros [facility] 01/27/2020 12:22:40 01/27/20 20 Aspiration Joint/Bursa, Major completed BETO VALENTE MD [address] [place], [address], [facility] 01/27/2020 13:00:00 09/23/20 19 Injection - Joint/Bursa, Major completed Jerod Del Castillo [facility] 09/23/2019 11:26:13 08/05/20 19 PT Manual Therapy completed PEDRO CHAVES II, PT, DPT [address] [place], [address], [facility] 08/12/2019 05:18:25 08/05/20 19 PT Therapeutic Exercise completed PEDRO CHAVES II, PT, DPT [address] [place], [address], [facility] 08/12/2019 05:18:06 08/01/20 19 PT Manual Therapy completed PEDRO CHAVES II, PT, DPT [address] [place], [address], [facility] 08/01/2019 09:40:45 08/01/20 19 PT Therapeutic Exercise completed PEDRO CHAVES II, PT, DPT [address] [place], [address], [facility] 08/01/2019 09:40:21 07/30/20 19 PT Therapeutic Exercise completed PEDRO GOODWINT II, PT, DPT [address] [place], [address], [facility] 08/12/2019 05:12:01 07/30/20 19 PT Manual Therapy completed PEDRO CHAVES II, PT, DPT [address] [place], [address], [facility] 08/12/2019 05:08:25 07/30/20 19 PT Therapeutic Exercise completed PEDRO GOODWINT II, PT, DPT [address] [place], [address], [facility] 08/12/2019 05:08:11 07/25/20 19 PT Manual Therapy completed PEDRO CHAVES II, PT, DPT [address] [place], [address], [facility] 08/05/2019 12:06:04 07/25/20 19 PT Therapeutic Exercise completed PEDRO CHAVES II, PT, DPT [address] [place], [address], [facility] 08/05/2019 12:05:37 07/23/20 19 PT Manual Therapy completed PEDRO CHAVES II, PT, DPT [address] [place], [address], [facility] 07/24/2019 11:16:21 07/23/20 19 PT Therapeutic Exercise completed PEDRO CHAVES II, PT, DPT [address] [place], [address], [facility] 07/24/2019 11:16:02 07/23/20 19 PT Therapeutic Exercise completed PEDRO GOODWINT II, PT, DPT [address] [place], [address], [facility] 07/23/2019 13:02:26 07/19/20 19 PT Therapeutic Exercise completed PEDRO GOODWINT II, PT, DPT [address] [place], [address], [facility] 07/23/2019 12:54:51 07/19/20 19 PT Manual Therapy completed PEDRO GOODWINT II, PT, DPT [address] [place], [address], [facility] 07/25/2019 14:39:48 07/19/20 19 PT Therapeutic Exercise completed PEDRO GOODWINT II, PT, DPT [address] [place], [address], [facility] 07/25/2019 14:39:27 07/16/20 19 PT Manual Therapy completed PEDRO GOODWINT II, PT, DPT [address] [place], [address], [facility] 07/16/2019 14:27:43 07/16/20 19 PT Therapeutic Exercise completed PEDRO GOODWINT II, PT, DPT [address] [place], [address], [facility] 07/16/2019 14:27:14 07/11/20 19 PT Manual Therapy completed PEDRO CHAVES II, PT, DPT [address] [place], [address], [facility] 07/24/2019 12:37:40 07/11/20 19 PT Therapeutic Exercise completed PEDRO CHAVES II, PT, DPT [address] [place], [address], [facility] 07/24/2019 12:37:23 07/09/20 19 PT Manual Therapy completed PEDRO CHAVES II, PT, DPT [address] [place], [address], [facility] 07/09/2019 15:01:21 07/09/20 19 PT Therapeutic Exercise completed PEDRO GOODWINT II, PT, DPT [address] [place], [address], [facility] 07/09/2019 15:01:08 07/09/20 19 PT Therapeutic Exercise completed PEDRO GOODWINT II, PT, DPT [address] [place], [address], [facility] 07/09/2019 14:59:26 07/04/20 19 PT Manual Therapy completed PEDRO GOODWINT II, PT, DPT [address] [place], [address], [facility] 07/04/2019 09:02:44 07/04/20 19 PT Therapeutic Exercise completed PEDRO CHAVES II, PT, DPT [address] [place], [address], [facility] 07/04/2019 09:02:48 07/04/20 19 PT Manual Therapy completed PEDRO CHAVES II, PT, DPT [address] [place], [address], [facility] 07/04/2019 15:33:26 07/04/20 19 PT Therapeutic Exercise completed PEDRO CHAVES II, PT, DPT [address] [place], [address], [facility] 07/04/2019 15:33:12 07/01/20 19 PT Manual Therapy completed PEDRO CHAVES II, PT, DPT [address] [place], [address], [facility] 07/02/2019 16:12:04 07/01/20 19 PT Therapeutic Exercise completed PEDRO CHAVES II, PT, DPT [address] [place], [address], [facility] 07/01/2019 10:07:01 06/27/20 19 PT Evaluation - Low Complexity completed [facility] 06/27/2019 16:21:15 06/27/20 19 PT Manual Therapy completed [facility] 06/27/2019 11:06:21 06/27/20 19 PT Therapeutic Exercise completed [facility] 06/27/2019 11:05:41 06/24/20 19 PT Manual Therapy completed [facility] 06/24/2019 08:45:21 06/24/20 19 PT Therapeutic Exercise completed [facility] 06/24/2019 08:45:24 06/20/20 19 PT Manual Therapy completed [facility] 06/20/2019 13:05:12 06/20/20 19 PT Therapeutic Exercise completed [facility] 06/20/2019 13:01:47 06/17/20 19 PT Manual Therapy completed [facility] 06/17/2019 11:03:37 06/17/20 19 PT Therapeutic Exercise completed [facility] 06/17/2019 11:03:39 06/13/20 19 PT Manual Therapy completed PEDRO CHAVES II, PT, DPT [address] [place], [address], [facility] 06/18/2019 10:21:00 06/13/20 19 PT Therapeutic Exercise completed PEDRO CHAVES II, PT, DPT [address] [place], [address], [facility] 06/18/2019 10:20:41 06/13/20 19 Suture/Staple removal completed Gian LOAIZA PA-C [address] [place], [address], [facility] 06/18/2019 09:08:20 06/10/20 19 PT Manual Therapy completed [facility] 06/10/2019 10:05:46 06/10/20 19 PT Therapeutic Exercise completed [facility] 06/10/2019 10:04:35 06/07/20 19 [facility] 14:15:48 06/05/20 19 PT Manual Therapy completed [facility] 06/05/2019 09:56:35 06/05/20 19 PT Therapeutic Exercise completed [facility] 06/05/2019 09:55:56 05/27/20 19 PT Manual Therapy completed PEDRO CHAVES II, PT, DPT [address] [place], [address], [facility] 05/27/2019 11:03:26 05/27/20 19 PT Therapeutic Exercise completed PEDRO CHAVES II, PT, DPT [address] [place], [address], [facility] 05/27/2019 11:03:14 05/23/20 19 PT Manual Therapy completed [facility] 05/23/2019 11:01:09 05/23/20 19 PT Therapeutic Exercise completed [facility] 05/23/2019 10:59:31 05/20/20 19 PT Manual Therapy completed PEDRO GOODWINT II, PT, DPT [address] [place], [address], [facility] 05/20/2019 16:07:37 05/20/20 19 PT Therapeutic Exercise completed PEDRO GOODWINT II, PT, DPT [address] [place], [address], [facility] 05/20/2019 16:07:22 05/15/20 19 PT Manual Therapy completed PEDRO GOODWINT II, PT, DPT [address] [place], [address], [facility] 05/15/2019 09:24:02 05/15/20 19 PT Therapeutic Exercise completed PEDRO GOODWINT II, PT, DPT [address] [place], [address], [facility] 05/15/2019 09:23:46 05/13/20 19 PT Manual Therapy completed PEDRO GOODWINT II, PT, DPT [address] [place], [address], [facility] 05/14/2019 12:07:47 05/13/20 19 PT Therapeutic Exercise completed PEDRO GOODWINT II, PT, DPT [address] [place] [place], [address], [facility] 05/14/2019 12:07:30 05/10/20 19 PT Manual Therapy completed PEDRO GOODWINT II, PT, DPT [address] [place], [address], [facility] 05/14/2019 12:15:43 05/10/20 19 PT Therapeutic Exercise completed PEDRO GOODWINT II, PT, DPT [address] [place], [address], [facility] 05/14/2019 12:15:21 05/07/20 19 PT Manual Therapy completed PEDRO GOODWINT II, PT, DPT [address] [place] [place], [address], [facility] 05/07/2019 09:37:22 05/07/20 19 PT Therapeutic Exercise completed PEDRO GOODWINT II, PT, DPT [address] [place], [address], [facility] 05/07/2019 09:37:12 04/30/20 19 PT Manual Therapy completed PEDRO GOODWINT II, PT, DPT [address] [place], [address], [facility] 04/30/2019 12:48:45 04/30/20 19 PT Therapeutic Exercise completed PEDRO GOODWINT II, PT, DPT [address] [place], [address], [facility] 04/30/2019 12:48:18 04/26/20 19 PT Manual Therapy completed PEDRO GOODWINT II, PT, DPT [address], [address], [facility] 04/26/2019 09:24:58 04/26/20 19 PT Therapeutic Exercise completed PEDRO GOODWINT II, PT, DPT [address] [place], [address], [facility] 04/26/2019 09:24:35 04/23/20 19 PT Manual Therapy completed PEDRO GOODWINT II, PT, DPT [address] [place], [address], [facility] 04/23/2019 09:22:49 04/23/20 19 PT Therapeutic Exercise completed PEDRO GOODWINT II, PT, DPT [address] [place], [address], [facility] 04/23/2019 09:22:36 04/19/20 19 PT Manual Therapy completed PERDO GOODWINT II, PT, DPT [address] [place], [address], [facility] 04/19/2019 09:38:21 04/19/20 19 PT Therapeutic Exercise completed PEDRO GOODWINT II, PT, DPT [address] [place], [address], [facility] 04/19/2019 09:38:09 04/16/20 19 PT Manual Therapy completed PEDRO CHAVES II, PT, DPT [address] [place], [address], [facility] 04/19/2019 14:52:48 04/16/20 19 PT Therapeutic Exercise completed PEDRO CHAVES II, PT, DPT [address] [place], [address], [facility] 04/19/2019 14:52:18 04/11/20 19 PT Manual Therapy completed PEDRO CHAVES II, PT, DPT [address] [place], [address], [facility] 04/11/2019 13:14:32 04/11/20 19 PT Therapeutic Exercise completed PEDRO CHAVES II, PT, DPT [address] [place], [address], [facility] 04/11/2019 13:14:26 03/27/20 19 PT Evaluation - Moderate Complexity completed PEDRO CHAVES II, PT, DPT [address] [place], [address], [facility] 03/27/2019 11:19:26 03/27/20 19 PT Therapeutic Exercise completed PEDRO CHAVES II, PT, DPT [address] [place], [address], [facility] 03/27/2019 11:19:48 03/14/20 19 Suture/Staple removal completed Gian LOAIZA PA-C [address] [place], [address], [facility] 03/17/2019 16:37:13 03/08/20 19 Orthopedic Surgery completed Florencio Christie [facility] 03/14/2019 14:49:02 02/06/20 19 PT Manual Therapy completed PEDRO CHAVES II, PT, DPT [address], [address], [facility] 02/05/2019 11:48:02 02/06/20 19 PT Therapeutic Exercise completed PEDRO GOODWINT II, PT, DPT [address] [place], [address], [facility] 02/05/2019 11:48:00 01/31/20 19 PT Therapeutic Exercise completed PEDRO GOODWINT II, PT, DPT [address] [place], [address], [facility] 02/03/2019 21:33:58 01/24/20 19 PT Therapeutic Exercise completed PEDRO GOODWINT II, PT, DPT [address] [place], [address], [facility] 01/23/2019 10:48:24 01/17/20 19 PT Therapeutic Exercise completed PEDRO CHAVES II, PT, DPT [address] [place], [address], [facility] 01/16/2019 08:36:06 01/09/20 19 PT Manual Therapy completed PEDRO CHAVES II, PT, DPT [address] [place], [address], [facility] 01/09/2019 10:18:54 01/09/20 19 PT Therapeutic Exercise completed PEDRO GOODWINT II, PT, DPT [address] [place], [address], [facility] 01/09/2019 10:18:36 01/01/20 19 PT Manual Therapy completed PEDRO CHAVES II, PT, DPT [address] [place], [address], [facility] 01/01/2019 14:17:20 01/01/20 19 PT Therapeutic Exercise completed PEDRO GOODWINT II, PT, DPT [address] [place], [address], [facility] 01/01/2019 14:17:07 12/28/19 19 PT Manual Therapy completed PEDRO GOODWINT II, PT, DPT [address] [place], [address], [facility] 01/03/2019 08:09:40 12/28/19 19 PT Therapeutic Exercise completed PEDRO Penny CHAVES II, PT, DPT [address] [place], [address], [facility] 01/03/2019 08:09:27 12/20/19 19 PT Therapeutic Exercise completed PEDRO Penny CHAVES II, PT, DPT [address] [place], [address], [facility] 12/20/2018 11:07:47 12/06/19 19 PT Evaluation - Moderate Complexity completed PEDRO Penny CHAVES II, PT, DPT [address] [place], [address], [facility] 12/20/2018 07:13:15 12/06/19 19 PT Therapeutic Exercise completed PEDRO Penny ANASTACIO II, PT, DPT [address] [place], [address], [facility] 12/20/2018 07:13:36 03/20/20 17 Op Note completed MYRON THORNTON MD [address] [place], [address], [facility] 03/20/2017 08:16:54 Imaging Results None recorded. Procedure Notes None recorded. Medical Equipment None Reported. Allergies Allergen ID Allergen Name Allergen Category Reaction Reaction Severity Criticality Documentation Date Start Date Code Code System Note Provider Name and Address Organization Details Recorded Time 344886 lisinopri l medicatio n cough Not available Not available 11/29/2018 25476 RxNorm Jerod Del Castillo [facility] 9 09:54:54 Medications Name Sig Start [...] Not Available Not Available No t Available Sammamish 10 mg-325 mg tablet Take 1 tablet [...] Updated DateTime 05/08/2024 175.26 cm 26.4 kg/m2 87474.03 g 0 Lilia Rashid [facility] 05/08/2024 10:57:45 Date Recorded Body height Body mass index (BMI) Body weight Pain severity - 0-10 verbal numeric rating [Score] - Reported Systolic And Diastolic Provider Name and Address Organization Details Last Updated DateTime 05/29/2024 175.26 cm 26.4 kg/m2 81546.03 g 2 125/80 mm[Hg] Mekhi Weathers [facility] 09:32:10 Date Recorded Body height Provider Name an d Address Organization Details Last Updated DateTime 06/26/2024 175.26 cm Bola Carlos [facility] 06/26/2024 08:46:55 Date Recorded Body height Body mass index (BMI) Body weight Provider Name and Address Organization Details Last Updated DateTime 07/22/2024 175.26 cm 26.4 kg/m2 89191.03 g Holly Umanzor [facility] 07/22/2024 08:02:03 Date Recorded Body height Body mass index (BMI) Body weight Provider Name and Address Organization Details Last Updated DateTime 09/23/2025 175.26 cm 26.7 kg/m2 71373.22 g Kae Rowe [facility] 09/23/2025 14:01:28 Social History Question Answer Notes LastModified by Organizat ion Details LastModified Time Tobacco Smoking Status Former Smoker Smita Kohli sean [facility] 03/03/2017 15:28:02 Accident Related Injury Yes [email or web address] Information not available 03/03/2017 What Is Your Level Of Caffeine Consumption? Moderate [email or web address] Information not available 03/03/2017 Which Of Your Hands Is Dominant? Right [email or web address] Information not available 03/03/2017 Which Hand Is Involved? Right [email or web address] Information not available 03/03/2017 Rate The Severity Of Your Symptoms: (0-10 With 0=none And 10=worst Possible) 3 [email or web address] Information not available 02/05/2019 When Are Your Symptoms The Worst? Night Day Neither Neither Information not available 03/03/2017 Date Of Injury: 06/11/2015 Informati on not available 03/03/2017 Have You Been Treated For This Problem Before? Yes Information not available 03/03/2017 How Long Have You Had These Symptoms? 06/11/2015 [email or web address] Information not available 03/03/2017 Will This Be Filed As Workers' Compensation? Yes Information not available 03/03/2017 What Was The Date Of Your Most Recent Tobacco Screening? 05/13/2019 Information not available 12/31/2019 Has Tobacco Cessation Counseling Been Provided? No [email or web address] Information not available 03/03/2017 Work Related Injury? Yes Information not available 03/03/2017 Sex: Unknown Functional Status Question Answer Note LastModified by Organizat ion Details LastModified Time Do you use any illicit or recreational drugs? No [email or web address] Information not available 03/03/2017 What is your level of alcohol consumption? Occasional [email or web address] Information not available 03/03/2017 Are you currently employed? 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 Family History Relationship Description Onset Age of this Age Resolved Age Notes LastModified by Organization Details LastModified Time Father No current problems or disability [email or web address] Not available 03/03 15:27:56 Mother No current problems or disability Not available 03/03 15:27:56 Medical History Condition Response Allergies/Hayfever N Other N Anxiety/Depression N Gout N Thyroid Disease N Kidney Stones N Heart Conditions N Hernia N Migraines N COPD N Glaucoma N Pneumonia N Skin Problems N Immune System Disorder N Anesthesia Complications N Heart Attack ([place]) N Mental Illness N Neurological Problems N [...] ICD10 Code Diagnosis IMO Codes Diagnosis Note [id number] MYRON THORNTON MD [facility] [address] [address] 03/03/2017 14:23:32 03/03/2017 16:45:25 Snapping thumb syndrome 46227558 M65.311 Right trigger thumb Osteoarthr osis of the carpometacarpal joint of the thumb 02552730 M18.11 Previous x-rays of the right wrist dated 07/30/15 demonstrat e mild arthritic changes of the thumb [facility] joint (CSI: 01/19/16) [id number] MYRON THORNTON MD SURGERY SCHEDULE [address] [place] [address] 03/20/2017 06:04:45 03/20/2017 06:10:21 [id number] MYRON THORNTON MD [facility] [address] [place] [address] 03/31/2017 15:16:43 03/31/2017 16:07:47 Postoperative care 983156155 Z48.89 2 weeks status post right trigger thumb release (03/20/17) [id number] MYRON THORNTON MD [facility] [address] [place] [address] 05/05/2017 15:10:04 05/05/2017 16:51:23 Postoperative care 565847674 Z48.89 6 weeks status post right trigger thumb release (03/20/17) [id number] BETO VALENTE MD [facility] [address] [address] 11/29/2018 09:31:09 11/29/2018 12:08:29 Pain of right shoulder joint 0289353182 7151818 M25.770 [id number] PEDRO CHAVES II, PT, DPT PHYSICAL THERAPY / HAND THERAPY [facility] [address] [address] 12/06/2018 13:43:55 12/20/2018 11:22:54 Injury of tendon of the rotator cuff of shoulder 726485844 S46.091D Muscle weakness 59487136 M62.81 Spasm 48551317 R25.2 Muscular incoordination 52352255 R27.8 [id number] PEDRO CHAVES II, PT, DPT PHYSICAL THERAPY / HAND THERAPY [facility] [address] [address] 12/20/2018 10:12:44 12/20/2018 11:46:47 Injury of tendon of the rotator cuff of shoulder 913427994 S46.091D Muscle weakness 78039508 M62.81 Muscular incoordination 70949940 R27.8 Spasm 86789374 R25.2 [id number] PEDRO CHAVES II, PT, DPT PHYSICAL THERAPY / HAND THERAPY [facility] [address] [place] [address] 12/28/2018 08:00:23 01/03/2019 10:08:18 Injury of tendon of the rotator cuff of shoulder 605693844 S46.091D Muscle weakness 67290507 M62.81 Muscular incoordination 08811783 R27.8 Spasm 48327737 R25.2 [id number] PEDRO CHAVES II, PT, DPT PHYSICAL THERAPY / HAND THERAPY [facility] [address] [place] [address] 01/01/2019 10:25:25 01/01/2019 12:32:38 Muscle weakness 57308742 M62.81 Injury of tendon of the rotator cuff of shoulder 073960858 S46.091D Muscular incoordination 78128750 R27.8 Spasm 56408676 R25.2 [id number] BETO VALENTE MD [facility] [place] [address] 01/01/2019 10:25:46 01/01/2019 14:47:36 Pain of right shoulder joint 3240918801 7520231 M25.339 [id number] PEDRO CHAVES II, PT, DPT PHYSICAL THERAPY / HAND THERAPY [facility] [address] [place] [address] 01/09/2019 08:53:33 01/09/2019 10:33:49 Muscle weakness 82232748 M62.81 Injury of tendon of the rotator cuff of shoulder 605525875 S46.091D Muscular incoordination 20275455 R27.8 Spasm 99392635 R25.2 [id number] PEDRO CHAVES II, PT, DPT PHYSICAL THERAPY / HAND TH[facility]APY [facility] [place] [address] 01/16/2019 07:16:12 01/16/2019 08:39:53 Injury of tendon of the rotator cuff of shoulder 311761026 S46.091D Muscle weakness 46860230 M62.81 Muscular incoordination 61849195 R27.8 Spasm 56942283 R25.2 [id number] PEDRO CHAVES II, PT, DPT PHYSICAL THERAPY / HAND TH[facility]APY [facility] [address] [place] [address] 01/23/2019 07:26:00 01/23/2019 13:26:37 Muscle weakness 57576424 M62.81 Injury of tendon of the rotator cuff of shoulder 386587951 S46.091D Muscular incoordination 80038405 R27.8 Spasm 42269660 R25.2 [id number] PEDRO CHAVES II, PT, DPT PHYSICAL THERAPY / HAND [facility]APY [facility] [place] [address] 01/30/2019 07:24:14 02/04/2019 08:52:18 Injury of tendon of the rotator cuff of shoulder 588038103 S46.091D Muscle weakness 99789790 M62.81 Muscular incoordination 37393932 R27.8 Spasm 41030697 R25.2 [id number] PEDRO CHAVES II, PT, DPT PHYSICAL THERAPY / HAND THERAPY [facility] [address] [address] 02/05/2019 10:45:34 02/05/2019 13:35:49 Muscle weakness 00646852 M62.81 Injury of tendon of the rotator cuff of shoulder 422442921 S46.091D Muscular incoordination 60312335 R27.8 Spasm 55264870 R25.2 [id number] BETO VALENTE MD [facility] [address] [address] 02/05/2019 11:48:20 02/05/2019 13:47:18 Pain of right shoulder joint 8194859282 5667768 M25.968 [id number] BETO VALENTE MD SURGERY SCHEDULE [address] [place] [address] 03/08/2019 09:13:57 03/08/2019 09:35:08 [id number] Gian LOAIZA PA-C [facility] [address] [address] 03/14/2019 14:42:11 03/14/2019 15:46:39 Postoperative care 687175306 Z48.89 [id number] PEDRO CHAVES II, PT, DPT PHYSICAL THERAPY / HAND THERAPY [facility] [address] [place] [address] 03/27/2019 07:51:23 03/27/2019 13:04:43 Muscle weakness 56742039 M62.81 History of operative procedure on shoulder 259221814 Z98.890 Biceps tendinitis 527399 007 M75.21 Muscular incoordination 74416415 R27.8 [id number] PEDRO CHAVES II, PT, DPT PHYSICAL THERAPY / HAND THERAPY [facility] [address] [place] [address] 04/11/2019 08:18:18 04/11/2019 09:23:31 Biceps tendinitis 351057340 M75.21 Muscle weakness 80352148 M62.81 Muscular incoordination 44685840 R27.8 History of operative procedure on shoulder 682918794 Z98.782 [id number] R AUGUSTUS LOAIZA PA-C [facility] [address] [address] 04/11/2019 08:18:50 04/11/2019 09:59:59 Postoperative care 219963705 Z48.89 [id number] PEDRO CHAVES II, PT, DPT PHYSICAL THERAPY / HAND THERAPY [facility] [address] [address] 04/16/2019 08:21:36 04/22/2019 09:36:50 Biceps tendinitis 121486653 M75.21 Muscle weakness 73298158 M62.81 Muscular incoordination 29958049 R27.8 History of operative procedure on shoulder 374091452 Z98.865 [id number] PEDRO CHAVES II, PT, DPT PHYSICAL THERAPY / [facility]APY [facility] [address] [address] 04/19/2019 08:45:02 04/19/2019 15:37:00 Biceps tendinitis 210974787 M75.21 Muscle weakness 09562894 M62.81 Muscular incoordination 90698997 R27.8 History of operative procedure on shoulder 666172681 Z98.973 [id number] BETO VALENTE MD [facility] [address] [address] 04/22/2019 14:42:50 05/06/2019 09:40:22 Tear of lateral meniscus of knee 773691160 S83.281A Pes anseri nus bursitis of right knee 6008694729 371176 M70.51 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 446715119 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 [id number] PEDRO CHAVES II, PT, DPT PHYSICAL THERAPY / HAND THERAPY [facility] [address] [place] [address] 04/23/2019 08:45:17 04/23/2019 12:56:49 Biceps tendinitis 327781310 M75.21 Muscle weakness 85491684 M62.81 Muscular incoordination 68958611 R27.8 History of operative procedure on shoulder 652530144 Z98.025 [id number] PEDRO CHAEVS II, PT, DPT PHYSICAL THERAPY / HAND THERAPY [facility] [address] [place] [address] 04/26/2019 08:45:45 05/01/2019 10:20:49 Biceps tendinitis 317281451 M75.21 Muscle weakness 82445511 M62.81 History of operative procedure on shoulder 084915415 Z98.890 Muscular incoordination 47765248 R27.8 [id number] BETO VALENTE MD [facility] [address] [place] [address] 04/30/2019 08:04:05 04/30/2019 10:03:41 Pain in right knee 3069900507 34319 M25.951 [id number] PEDRO CHAVES II PT, DPT PHYSICAL THERAPY / HAND THERAPY [facility] [address] [place] [address] 04/30/2019 08:06:50 05/01/2019 13:41:09 Biceps tendinitis 438420127 M75.21 Muscle weakness 40322517 M62.81 Muscular incoordination 11141799 R27.8 History of operative procedure on shoulder 466005021 Z98.570 [id number] PEDRO CHAVES II, PT, DPT PHYSICAL THERAPY / HAND THERAPY [facility] [address] [place] [address] 05/07/2019 08:17:18 05/07/2019 09:55:31 Biceps tendinitis 790652601 M75.21 Muscle weakness 74180880 M62.81 History of operative procedure on shoulder 086452553 Z98.890 Muscular incoordination 93916117 R27.8 [id number] PEDRO CHAVES II, PT, DPT PHYSICAL THERAPY / HAND THERAPY [facility] [address] [place] [address] 05/10/2019 08:53:18 05/21/2019 08:14:13 Biceps tendinitis 266502415 M75.21 Muscle weakness 25261226 M62.81 Muscular incoordination 69117747 R27.8 History of operative procedure on shoulder 336719541 Z98.827 [id number] PEDRO CHAVES II, PT, DPT PHYSICAL THERAPY / HAND THERAPY [facility] [address] [place] [address] 05/13/2019 08:50:22 05/15/2019 08:31:09 Biceps tendinitis 247080021 M75.21 Muscle weakness 23583822 M62.81 Muscular incoordination 81816801 R27.8 History of operative procedure on shoulder 692834379 Z98.215 [id number] BETO VALENTE MD [facility] [address] [place] [address] 05/13/2019 08:51:00 05/13/2019 15:21:13 Pain of right shoulder joint 0940189458 9978950 M25.252 [id number] PEDRO CHAVES II PT, DPT PHYSICAL THERAPY / HAND TH[facility]APY [facility] [address] [place] [address] 05/15/2019 08:27:39 05/15/2019 10:39:55 Biceps tendinitis 272915049 M75.21 Muscle weakness 94103722 M62.81 Muscular incoordination 50264955 R27.8 History of operative procedure on shoulder 019744684 Z98.500 [id number] PEDRO CHAVES II, PT, DPT PHYSICAL THERAPY / HAND [facility]APY [facility] [address] [facility] [place] [place] [address] 05/20/2019 08:18:17 05/20/2019 17:28:12 Biceps tendinitis 994069413 M75.21 Muscle weakness 40981191 M62.81 Muscular incoordination 83995996 R27.8 History of operative procedure on shoulder 256188689 Z98.326 [id number] PEDRO W CHAVES II, PT, DPT PHYSICAL THERAPY / HAND [facility]APY [facility] [address] [facility] [address] 05/23/2019 09:54:02 05/24/2019 10:32:36 Biceps tendinitis 617990162 M75.21 Muscle weakness 93470830 M62.81 Muscular incoordination 86832351 R27.8 Injury of tendon of the rotator cuff of shoulder 396542068 S46.091D [id number] PEDRO CHAVES II, PT, DPT PHYSICAL THERAPY / HAND TH[facility]APY [facility] [address] [place] [address] [place] [address] 05/27/2019 09:48:34 05/27/2019 11:36:38 Biceps tendinitis 601579752 M75.21 Muscle weakness 09794779 M62.81 Muscular incoordination 89124595 R27.8 History of operative procedure on shoulder 747973914 Z98.465 [id number] SEAN GUIDRY PT PHYSICAL THERAPY / HAND THERAPY [facility] [address] [place] [address] [place] [address] 06/05/2019 08:42:58 06/05/2019 11:40:58 Biceps tendinitis 062155102 M75.21 Muscle weakness 09475067 M62.81 Muscular incoordination 95191442 R27.8 History of operative procedure on shoulder 205340538 Z98.890 Injury of tendon of the rotator cuff of shoulder 348781039 S46.001D [id number] BETO VALENTE MD SURGERY SCHEDULE [address] [place] [address] 06/07/2019 06:19:58 06/07/2019 06:21:26 [id number] PEDRO CHAVES II, PT, DPT PHYSICAL THERAPY / HAND THERAPY [facility] [address] [facility] [address] 06/10/2019 08:50:50 06/17/2019 11:34:27 Biceps tendinitis 322010505 M75.21 Muscle weakness 03071400 M62.81 Injury of tendon of the rotator cuff of shoulder 031940947 S46.091D Muscular incoordination 86631662 R27.8 [id number] R AUGUSTUS LOAIZA PA-C [facility] [address] [place] [address] 06/13/2019 14:11:08 06/13/2019 14:54:35 Postoperative care 618229695 Z48.89 [id number] PEDRO CHAVES II, PT, DPT PHYSICAL THERAPY / HAND [facility]APY [facility] [place] [address] 06/13/2019 14:13:24 06/18/2019 14:53:33 Biceps tendinitis 188229409 M75.21 Muscle weakness 35296136 M62.81 History of operative procedure on shoulder 797116730 Z98.890 Muscular incoordination 36877428 R27.8 [id number] PEDRO CHAVES II, PT, DPT PHYSICAL THERAPY / HAND [facility]APY [facility] [place] [address] 06/17/2019 07:49:24 06/24/2019 14:45:57 Biceps tendinitis 934477046 M75.21 Muscle weakness 98600997 M62.81 Muscular incoordination 19507984 R27.8 History of operative procedure on shoulder 226267869 Z98.629 [id number] BETO VALENTE MD [facility] [place] [address] 06/17/2019 07:52:06 06/17/2019 09:40:09 Pain of right shoulder joint 4279917037 3595702 M25.303 [id number] PEDRO CHAVES II, PT, DPT PHYSICAL THERAPY / HAND TH[facility]APY [facility] [place] [address] 06/20/2019 08:44:33 06/26/2019 10:32:07 Muscle weakness 85074721 M62.81 Muscular incoordination 33124373 R27.8 Injury of tendon of the rotator cuff of shoulder 508786900 S46.091D History of operative procedure on shoulder 287635685 Z98.469 [id number] PEDRO CHAVES II, PT, DPT PHYSICAL THERAPY / HAND [facility]APY [facility] [place] [address] 06/24/2019 07:51:58 06/28/2019 08:06:30 Muscle weakness 46915396 M62.81 Muscular incoordination 77251803 R27.8 History of operative procedure on shoulder 170881400 Z98.890 Injury of tendon of the rotator cuff of shoulder 419541196 S46.091D [id number] PEDRO CHAVES II, PT, DPT PHYSICAL THERAPY / HAND TH[facility]APY [facility] [address] [place] [address] 06/27/2019 08:23:59 07/02/2019 12:57:41 Biceps tendinitis 310756511 M75.21 Muscle weakness 58055407 M62.81 Muscular incoordination 29834771 R27.8 History of operative procedure on shoulder 486279665 Z98.108 [id number] PEDRO CHAVES II, PT, DPT PHYSICAL THERAPY / HAND [facility]APY [facility] [address] [place] [address] 06/27/2019 09:05:46 07/02/2019 13:01:22 History of arthroscopy of knee joint 316772856 Z98.890 Muscle weakness 38783831 M62.81 Muscular incoordination 29888965 R27.8 Abnormal gait 06608804 R 26.9 [id number] PEDRO CHAVES II, PT, DPT PHYSICAL THERAPY / HAND THERAPY [facility] [address] [place] [address] 07/01/2019 09:15:09 07/02/2019 16:43:38 Biceps tendinitis 704461779 M75.21 Muscle weakness 49812537 M62.81 Injury of tendon of the rotator cuff of shoulder 362281464 S46.091D Muscular incoordination 69995581 R27.8 [id number] PEDRO CHAVES II, PT, DPT PHYSICAL THERAPY / HAND THERAPY [facility] [address] [place] [address] 07/04/2019 08:37:58 07/04/2019 15:54:01 Biceps tendinitis 975223404 M75.21 Muscle weakness 49980498 M62.81 Muscular incoordination 32241120 R27.8 History of operative procedure on shoulder 144356860 Z98.678 [id number] PEDRO CHAVES II, PT, DPT PHYSICAL THERAPY / HAND THERAPY [facility] [address] [place] [address] 07/04/2019 08:39:01 07/16/2019 16:19:15 Abnormal gait 94959928 R26.9 Muscle weakness 68308024 M62.81 Muscular incoordination 48535931 R27.8 History of arthroscopy of knee joint 878509836 Z98.789 [id number] R AUGUSTUS LOAIZA PA-C [facility] [address] [place] [address] 07/04/2019 08:39:56 07/04/2019 13:52:12 Postoperative care 048089043 Z48.89 [id number] PEDRO CHAVES II, PT, DPT PHYSICAL THERAPY / HAND THERAPY [facility] [address] [place] [address] 07/09/2019 07:39:22 07/09/2019 15:11:07 Abnormal gait 64024084 R26.9 Muscle weakness 28171513 M62.81 Muscular incoordination 53485698 R27.8 History of arthroscopy of knee joint 403073309 Z98.470 [id number] PEDRO CHAVES II, PT, DPT PHYSICAL THERAPY / HAND [facility]APY [facility] [address] [place] [address] 07/09/2019 07:40:03 07/09/2019 15:10:02 Biceps tendinitis 040944650 M75.21 Muscle weakness 68427607 M62.81 Muscular incoordination 00657218 R27.8 History of operative procedure on shoulder 363770305 Z98.949 [id number] PEDRO CHAVES II, PT, DPT PHYSICAL THERAPY / HAND [facility]APY [facility] [address] [place] [address] 07/11/2019 08:26:10 07/26/2019 08:02:14 Biceps tendinitis [id number] M75.21 Muscle weakness [id number] M62.81 Muscular incoordination [id number] R27.8 History of operative procedure on shoulder [id number] Z98.404 [id number] PEDRO CHAVES II, PT, DPT PHYSICAL THERAPY / HAND THERAPY [facility] [address] [address] 07/16/2019 12:44:55 07/16/2019 14:36:53 Biceps tendinitis [id number] M75.21 Muscle weakness 22626475 M62.81 Muscular incoordination 45145736 R27.8 History of arthroscopy of knee joint 873835039 Z98.890 History of operative procedure on shoulder 480631424 Z98.243 [id number] PEDRO CHAVES II, PT, DPT PHYSICAL THERAPY / HAND THERAPY [facility] [address] [address] 07/19/2019 08:38:14 08/01/2019 07:13:05 Biceps tendinitis [id number] M75.21 Muscle weakness 89485870 M62.81 Injury of tendon of the rotator cuff of shoulder 131084059 S46.091D History of operative procedure on shoulder 955926733 Z98.477 [id number] PEDRO CHAVES II, PT, DPT PHYSICAL THERAPY / HAND TH[facility]APY [facility] [address] [place] [address] 07/19/2019 08:39:44 07/24/2019 08:19:48 Abnormal gait 07976704 R26.9 Muscle weakness 10309184 M62.81 History of arthroscopy of knee joint 469947916 Z98.201 [id number] PEDRO CHAVES II PT, DPT PHYSICAL THERAPY / [facility]Y [facility] [address] [place] [address] 07/23/2019 09:48:51 07/23/2019 13:28:20 Abnormal gait 85559496 R26.9 Muscle weakness 78045514 M62.81 Muscular incoordination 74457323 R27.8 History of arthroscopy of knee joint 092444640 Z98.809 [id number] BETO VALENTE MD [facility]TH[facility]I [facility] [address] [place] [address] 07/23/2019 09:51:16 07/23/2019 12:40:27 Pain of right shoulder joint 8745728466 9038982 M25.811 [id number] PEDRO CHAVES II, PT, DPT PHYSICAL THERAPY / [facility]Y [facility] [address] [place] [address] 07/23/2019 09:52:01 07/24/2019 16:36:10 Muscle weakness 38547188 M62.81 Injury of tendon of the rotator cuff of shoulder 731278942 S46.091D Muscular incoordination 88701316 R27.8 History of operative procedure on shoulder 846729658 Z98.088 [id number] PEDRO CHAVES II, PT, DPT PHYSICAL THERAPY / [facility] [address] [place] [address] [place] [address] 07/25/2019 08:46:43 08/05/2019 15:18:30 Biceps tendinitis 922926667 M75.21 Muscle weakness 09423060 M62.81 Muscular incoordination 20750147 R27.8 History of operative procedure on shoulder 376557112 Z98.828 [id number] PEDRO CHAVES II, PT, DPT PHYSICAL THERAPY / [facility]Y [facility] [address] [place] [address] 07/30/2019 08:43:36 08/12/2019 08:30:00 Biceps tendinitis 194534162 M75.21 Muscle weakness 11943159 M62.81 Muscular incoordination 46196179 R27.8 History of operative procedure on shoulder 491331363 Z98.713 [id number] PEDRO CHAVES II, PT, DPT PHYSICAL THERAPY / [facility]Y [facility] [address] [place] [address] 07/30/2019 08:44:27 08/12/2019 08:30:49 Abnormal gait 16060367 R26.9 Muscle weakness 27272251 M62.81 History of arthroscopy of knee joint 574493779 Z98.890 Muscular incoordination 53241298 R27.8 [id number] PEDRO CHAVES II, PT, DPT PHYSICAL THERAPY / [facility]APY [facility] [address] [place] [address] 08/01/2019 08:39:40 08/09/2019 09:11:04 Biceps tendinitis 942244755 M75.21 Muscle weakness 48055810 M62.81 History of operative procedure on shoulder 763064113 Z98.890 Muscular incoordination 61652383 R27.8 [id number] PEDRO CHAVES II, PT, DPT PHYSICAL THERAPY / [facility]Y [facility] [address] [address] 08/05/2019 09:36:20 08/12/2019 08:07:57 Biceps tendinitis 427530374 M75.21 Muscle weakness 39992818 M62.81 Muscular incoordination 26515127 R27.8 History of operative procedure on shoulder 606313169 Z98.362 [id number] BETO VALENTE MD ORTHOPEDI CS [facility] [address] [address] 08/15/2019 09:31:43 08/15/2019 14:47:54 Osteoarthritis of right knee joint 6306822735 72733 M17.11 [id number] BETO VALENTE MD ORTHOPEDI [facility] [address] [address] 08/27/2019 10:16:36 08/27/2019 12:39:10 Pain of right shoulder joint 5869461217 4972751 M25.780 [id number] BETO VALENTE MD [facility]OP[facility]I [facility] [address] [address] 09/23/2019 10:34:30 09/25/2019 12:32:00 Tear of lateral meniscus of knee 486015489 S83.271A [id number] BETO VALENTE MD [facility] [address] [address] 10/08/2019 10:14:25 10/14/2019 19:41:27 Pain of right shoulder joint 0498782160 9155124 M25.549 [id number] BETO VALENTE MD [facility] [address] [address] 01/27/2020 11:40:47 01/27/2020 14:05:41 Osteoarthritis of knee 923773048 M17.11 [id number] BETO VALENTE MD [facility] [address] [place] [address] 07/13/2020 09:09:21 07/13/2020 11:40:02 Pain in right knee 8917627769 95565 M25.548 [id number] BETO VALENTE MD [facility] [address] [place] [address] 08/28/2020 11:04:16 08/28/2020 11:54:22 Tendinitis of left patellar tendon 2274975121 93611 M76.52 Pain in left knee 078665 5782 73555 M25.562 possible mm tear [id number] MYRON THORNTON MD ORTHOPEDI [facility] [address] [place] [address] 10/13/2020 12:49:31 10/13/2020 13:48:58 Postoperative care 386015300 Z48.89 Previously status post right trigger thumb release (03/20/17) Pain in right thumb 1076 453886 555364 M79.644 Outside x-rays of the right thumb reviewed with no evidence of underlying fracture/d islocation [id number] MYRON THORNTON MD [facility]I [facility] [address] [place] [address] 11/12/2020 10:44:15 11/12/2020 13:27:11 Pain in right thumb 0793554885 996243 M79.644 Outside x-rays of the right thumb reviewed with no evidence of underlying fracture/d islocation Postoperative care 72214 9007 Z48.89 Previously status post right trigger thumb release (03/20/17) [id number] MYRON THORNTON MD [facility] [address] [place] [address] 12/22/2020 14:33:53 12/23/2020 13:36:28 Pain in right thumb 3993466044 357288 M79.644 Outside x-rays of the right thumb reviewed with no evidence of underlying fracture/d islocation Postoperative care 07283 9007 Z48.89 Previously status post right trigger thumb release (03/20/17) [id number] BETO VALENTE MD [facility] [address] [place] [address] 05/18/2021 14:23:54 05/18/2021 15:57:45 Infection of foot 465282870 L08.9 Pain in left knee 108675 9453 59472 M25.562 possible mm tear [id number] BETO VALENTE MD [facility] [address] [place] [address] 05/24/2021 14:39:33 05/24/2021 17:02:15 Pain in left knee 3037302663 20593 M25.562 possible mm tear [id number] BETO VALENTE MD SURGERY SCHEDULE [address] [place] [address] 08/27/2021 06:07:52 08/27/2021 06:09:09 [id number] TY VARGAS PA-C [facility] [address] [place] [address] 09/02/2021 08:48:30 09/02/2021 09:27:09 Postoperative care 851619644 Z48.89 [id number] TY VARGAS PA-C [facility] [address] [place] [address] 09/28/2021 09:02:50 09/28/2021 10:04:41 Postoperative care 921229428 Z48.89 Patient progressin g well postoperat ively. [...] she continues to have this aching pain. [id number] TY VARGAS PA-C [facility] [address] [place] [address] 10/26/2021 08:42:32 10/26/2021 09:16:09 Postoperative care 727974491 Z48.89 Patient progressin g well postoperat ively. Some residual aching in the medial aspect of the knee. Strength and range of motion appropriat e today.Plan :Continue PT with HEP. Continue to ice and elevate frequently . Over-the-c ounter anti-infla mmatories as needed. Hold on injection today. [id number] TY VARGAS PA-C [facility] [address] [place] [address] 11/23/2021 12:57:16 11/23/2021 13:33:06 Postoperative care 600141624 Z48.89 Patient progressin g well postoperat ively. Some residual aching in the medial aspect of the knee. Strength and range of motion appropriat e today.Plan :Continue HEP. Ice and elevate as needed. 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 2253708 M65.331 Right long trigger finger (CSI: 02/25/2022) Previously status post right trigger thumb release (03/20/17) [id number] MYRON THORNTON MD [facility] [address] [place] [address] 03/24/2022 10:44:49 03/24/2022 12:40:36 Acquired trigger finger 6610015 M65.331 Right long trigger finger (CSI: 02/25/2022) Previously status post right trigger thumb release (03/20/17) Postoperative care 00843 9007 Z48.89 Previously status post right trigger thumb release (03/20/17) [id number] MYRON THORNTON MD SURGERY SCHEDULE [address] [facility] [address] 04/20/2022 06:03:00 04/20/2022 06:04:21 [id number] LAURIE GONZALEZ PA-C [facility] [address] [place] [address] 05/05/2022 08:06:56 05/05/2022 08:31:04 Postoperative care 847115461 Z48.89 s/p Right middle trigger finger release (DOS: 04/20/22) Previously status post right trigger thumb release (03/20/17) [id number] MYRON THORNTON MD [facility] [address] [place] [address] 06/02/2022 09:09:46 06/02/2022 10:10:14 Postoperative care 731601542 Z48.89 6 weeks s/p Right middle trigger finger release (DOS: 04/20/22) Previously status post right trigger thumb release (03/20/17) [id number] MYRON THORNTON MD [facility] [address] [place] [address] 07/14/2022 08:16:23 07/14/2022 08:40:50 Postoperative care 930401619 Z48.89 12 weeks s/p Right middle trigger finger release (DOS: 04/20/22) Previously status post right trigger thumb release (03/20/17) [id number] MYRON THORNTON MD [facility] [address] [place] [address] 08/16/2022 08:33:51 08/16/2022 09:39:47 Postoperative care 792678034 Z48.89 4 months s/p right middle trigger finger release (DOS: 04/20/22) Previously status post right trigger thumb release (03/20/17) Flexor ten osynovitis of finger 462687485 M65.849 Right long finger flexor tendinitis (CSI: 08/16/2022) [id number] MYRON THORNTON MD [facility] [address] [place] [address] 09/22/2022 15:26:31 09/22/2022 16:42:00 Postoperative care 002149315 Z48.89 5 months s/p right middle trigger finger release (DOS: 04/20/22) Previously status post right trigger thumb release (03/20/17) Flexor ten osynovitis of finger 606346085 M65.849 Right long finger flexor tendinitis (CSI: 08/16/2022) [id number] TY VARGAS PA-C [facility] [address] [place] [address] 12/27/2022 14:12:24 12/27/2022 15:23:59 Edema of lower extremity 727476376 R60.0 Patient's symptoms today consistent likely with [...] persistent swelling of the right lower leg. 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 Currently maintained on metformin, Ozempic, and Jardiance. We will recheck her A1c and fructosami ne prior to surgical scheduling . Coronary arteriosclerosis 60681440 I25.10 Recent history of PCI x 4 [...] scheduling . History of percutaneous coronary intervention 980196117 Z98.890 [id number] EMMANUELLE Andrew MD [facility] [address] [place] [address] 02/20/2024 07:55:37 02/20/2024 09:45:24 Pain of left knee joint 8974380641 71121 M25.562 Osteoarthr itis of left knee joint 4683835387 60115 M17.12 ASSESSMENT : DJD LEFT knee PLAN:The [...] sharing responsibi lities; only one [facility] can furnish and bill for PCM services during a calendar month, and the patient can stop these services at any time. The patient understand s and has verbally consented to accept PCM services and has been provided a copy of a written explanatio n of this service today. Surgery date: [facility] location: 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 Currently maintained on metformin, Ozempic, and Jardiance. We will recheck her A1c and fructosami ne prior to surgical scheduling . Coronary arteriosclerosis 28828824 I25.10 Recent history of PCI x 4 [...] for cardiac events following elective TKA, including TX, arrhythmia s, and sudden cardiac . History of percutaneous coronary intervention 605910066 Z98.890 [id number] EMMANUELLE Andrew MD [facility] [address] [place] [address] 04/11/2024 13:40:11 04/12/2024 10:02:00 [id number] EMMANUELLE Andrew MD SURGERY SCHEDULE [address] [place] [address] 04/17/2024 14:53:45 04/24/2024 14:00:07 [id number] ANUJ KIRAN PA-C [facility] [address] [place] [address] 05/08/2024 10:28:14 05/08/2024 11:14:52 History of total knee arthroplasty 9948369213 105 Z96.652 Patient is 3 weeks status post left TKA and doing very well at this time. No complaints or concerns today. She has transition to outpatient physical therapy with [facility] in [place] . Highly encouraged to continue to focus [...] post op follow up with radiograph s. [id number] ANUJ KIRAN PA-C [facility] [address] [place] [address] 05/29/2024 09:12:59 05/29/2024 10:24:40 History of total knee arthroplasty 8387835731 105 Z96.652 Patient now 6 weeks status post left TKA. She continues to do very well with no complaints or concerns. Range of motion goals have been met. Okay to submerge incision. Resume normal activities as tolerated. Patient works at [employer] and has plans to return to work in [employer] 4 weeks which I do think would [...] begin working on strengthen ing the leg; [facility] the importance of continuing their HEP to build and maintain strength. Wereviewed scar massages and tissue mobilizati on. I will see her back in approximat e 4 weeks to determine to check on her progress and see how she is feeling about her return to work status. Long-leg radiograph s will be obtained. [id number] ANUJ KIRAN PA-C [facility] [address] [place] [address] 06/26/2024 08:29:00 06/26/2024 09:18:34 History of total knee arthroplasty 8784982732 105 Z96.652 Patient now 9 weeks status post left TKA. Over the weekend she had increased her activity with some home chores had a slight increase in some discomfort but otherwise still doing well at this time. No restrictio ns, she may return to work in 3 weeks at this time. She works at [employer]. She is planning tentativel y to schedule [...] 1 year or sooner if symptoms warrant. [id number] ANUJ KIRAN PA-C [facility] [address] [facility] [place] [address] 07/22/2024 07:53:25 07/22/2024 08:21:23 History of total knee arthroplasty 3132892057 105 Z96.652 Zehra he is now 13 [...] schedule her contralate ral knee in March. [id number] BETO VALENTE MD ORTHOPEDI [address] [place] [address] 09/23/2025 13:20:37 09/23/2025 14:51:34 Osteoarthritis of right knee joint 1379139284 71858 M17.11 [id number] Health Concerns Section Related Observation LastModified by Organization Detai ls LastModified Time None Recorded Concern Status LastModified by Organization Details LastModified Time None Recorded Advance Directives Directive None Recorded Payers Insurance Date Sequence Insurance Name Policy Number Policy Gregorio Covered Member ID Gregorio Member ID Guarantor Name 02/25/2022 [facility] [employer] Zehra S Sanor 02/21/2022 [facility] [employer] Zehra S Sanor 10/02/2025 1 [place] [id number] A Zehra S Sanor [id number] Zehra S Sanor 03/15/2019 [facility] [employer] Zehra S Sanor 05/22/2023 [facility] [employer] Zehra S Sanor 07/05/2024 1 INGENIOUSMED (MOVED [...] of pain medicine. ANUJ KIRAN PA-C [address] [place], [address], [facility] 05/08/2024 11:15:32 05/29/2024 text/html 05/27/24Patient is 5 [...] refill of pain medicine. ANUJ KIRAN PA-C [address] [place], [address], [facility] 05/29/2024 10:25:59 06/26/2024 text/html 06/26/24Patient is 8 [...] refill of pain medicine. ANUJ KIRAN PA-C [address] [place], [address], [facility] 06/26/2024 09:19:24 07/22/2024 text/html 07/22/24Patient is 13 [...] not request a refill of pain medicine. AUNJ KIRAN PA-C [address] [place], [address], [facility] 07/22/2024 09:51:17 09/23/2025 text/html WHAT: Right Knee.WHEN: about 2 months HOW: does a lot of pivoting/twisting at work SYMPTOMS: lateral knee pain, sharp stabbing pain increasing with movement, limited ROM, clicking PAIN: 5 /10X-RAY: [facility] reviewed today's x-rays with her in detail the right knee. Severe osteoarthritis specially lateral joint collapse patellofemoral arthritis. MRI: NonePT: none NSAIDS: yes INJECTION: none [facility]- [id number] RT KNEE SCOPE MMThe patient is a [...] note prior to signature. BETO VALENTE MD [address] [place], [address], [place] [facility] 10/01/2025 18:16:39 OBGyn Episode No OBEpisode recorded.
--- OUTSIDE RECORDS SUMMARY | 2025-11-04 13:42 | XMS_ITS | Clinical Summary ---
Author Organization [facility] Address [address] [place] [address] Phone Misbah [email or web address] Care Team Providers Care Finishing Room Operator Name Role Phone No, Provider Primary [...] Continuous Blood Gluc Sensor (Dexcom G7 Sensor) [facility] Acti ve Continuous Blood Gluc Batt Packer (Dexcom G7 Batt Packer) device Active rosuvastatin (CRESTOR) 10 MG tablet [...] (04/11/2018): Sprain of back 11/28/2007 Overview (04/11/2018): Social History Tobacco Use Types Packs/Day Years [...] topic Insurance [facility] [address] [facility] [id number] [place] [address] Care Teams Finishing Room Operator Relationship Specialty Start Date End Date No, Provider [place], [place] PCP - General Family Medicine 09/23/19
[2025-11-04 15:03] LABS: Iron 81 ug/dL (37-170)
[2025-11-04 15:14] LABS: Total Iron Binding Capacity 412 ug/dL (265-497)
[2025-11-04 15:41] LABS: Ferritin 11.9 ng/ml (11.1-264)
== END 2025-11-04 23:59 | disposition home or self-care (01) ==
LOC: LAB 13:38
PROVIDERS: PCP Nurse Practitioner Family; Visit Provider Internal Medicine Medical Oncology
DX: D64.9 Anemia, unspecified (principal)
CPT/HCPCS: 36415; 82728; 83540; 83550